=== PATIENT | female | born 1965 | race Caucasian/White ===

== ENCOUNTER 2017-07-27 20:52 | Inpatient (IN) | payer MEDICARE, MEDICAID ==
[2017-07-27] MEDS ORDERED: methylPREDNISolone 125 MG* 2 ML VIAL IV ONE (21:24)
[2017-07-27] MEDS ORDERED: methylPREDNISolone 125 MG* 2 ML VIAL ONE (21:25)
--- NOTE | 2017-07-27 22:43 | ED ---
Shortness of Breath - HPI Summary HPI Summary: 52F presents with shortness of breath for 4 days. She was diagnosed with bronchitis. She states for past week has been having orthopnea. she states she was told that she has bronchitis and was placed on zpack. She has history of CHF, COPD, and stent placement. She states she is normally not SOB at rest. She states she has been taking her medication as normal. She denies any fever. She admits to sinus congestion. She states cough has been consistently dry. She denies any abdominal pain, nausea or vomiting. she admits to increase swelling in legs. She is not on oral steroid for this. - History of Current Complaint Chief Complaint: EDShortnessOfBreath Time Seen by Provider: 07/27/17 22:08 - Allergy/Home Medications Allergies/Adverse Reactions: Allergies Allergy/AdvReac Type Severity Reaction Status Date / Time Levofloxacin [From Levaquin] Allergy Nausea And Verified 07/28/17 00:46 Vomiting Ondansetron [From Zofran] Allergy Hives Verified 07/28/17 00:46 PMH/Surg Hx/FS Hx/Imm Hx Endocrine/Hematology History: Reports: Hx Diabetes Cardiovascular History: Reports: Hx Congestive Heart Failure, Hx Hypertension, Other Cardiovascular Problems/Disorders - stent placement Denies: Hx Pacemaker/ICD Respiratory History: Reports: Hx Chronic Obstructive Pulmonary Disease (COPD) Sensory History: Denies: Hx Hearing Aid Psychiatric History: Denies: Hx Panic Disorder - Surgical History Surgery Procedure, Year, and Place: Complete Hysterectomy 2004; [place]; HEART CATH- 4 CARDIAC STENTS Infectious Disease History: No Infectious Disease History: Denies: Traveled Outside the [place] in Last 30 Days - Family History Known Family History: Positive: Cardiac Disease - Social History Alcohol Use: None Substance Use Type: Reports: Prescribed Smoking Status (MU): Heavy Every Day Tobacco Smoker Review of Systems Negative: Fever Negative: Chest Pain Positive: Shortness Of Breath, Cough Negative: Abdominal Pain All Other Systems Reviewed And Are Negative: Yes Physical Exam Triage Information Reviewed: Yes Vital Signs On Initial Exam: Initial Vitals Temp Pulse Resp BP Pulse Ox 97.9 F 112 26 156/98 92 07/27/17 21:01 07/27/17 21:01 07/27/17 21:01 07/27/17 21:01 07/27/17 21:01 Vital Signs Reviewed: Yes Appearance: Positive: Ill-Appearing Skin: Positive: Warm, Dry Head/Face: Positive: Normal Head/Face Inspection Eyes: Positive: Normal, EOMI, URIEL, Conjunctiva Clear ENT: Positive: Normal ENT inspection, Pharynx normal, TMs normal Respiratory/Lung Sounds: Positive: Breath Sounds Present, Rales - bilateral lungs Cardiovascular: Positive: Normal, RRR Abdomen Description: Positive: Nontender, Soft Bowel Sounds: Positive: Present Musculoskeletal: Positive: Edema Left, Edema Right - Delfino Coma Scale Coma Scale Total: 15 Diagnostics - Vital Signs Vital Signs Temp Pulse Resp BP Pulse Ox 07/27/17 21:05 26 07/27/17 21:01 97.9 F 112 26 156/98 92 - Laboratory Result Diagrams: 07/28/17 04:30 07/28/17 04:30 Lab Statement: Any lab studies that have been ordered have been reviewed, and results considered in the medical decision making process. - Radiology chest Xray Interpretation: Positive (See Comments) - pulmonary edema, possible consolidation Radiology Interpretation Completed By: ED Physician - EKG No standard instances Cardiac Rate: Tachycardia EKG Rhythm: Sinus Tachycardia ST Segment: Non-Specific - some T wave depresions EKG Interpretation: tachycardia some t wave inversion present Re-Evaluation - Re-Evaluation First Eval Re-Evaluation Time: 22:54 Change: Improved Comment: patient feeling better with solu-medol Course/Dx - Course Course Of Treatment: 52F presents with shortness of breath for 4 days. She was diagnosed with bronchitis. She states for past week has been having orthopnea. she states she was told that she has bronchitis and was placed on zpack. She has history of CHF, COPD, and stent placement. She states she is normally not SOB at rest. She states she has been taking her medication as normal. She denies any fever. She admits to sinus congestion. She states cough has been consistently dry. She denies any abdominal pain, nausea or vomiting. she admits to increase swelling in legs. She is not on oral steroid for this. on exam lungs has rales at bases. swelling in legs. dr gutierrez saw and advised to discuss with hospitalists. BMP, CBC, and troponin elevated. EKG some ST changes. gave steriod and breathing improved. chest xray read by dr gutierrez as pulmonary edema so gave lasix and nitro. gave aspirin. dr teresa saw and started heparin drip and talked with cardiology. dr teresa will admit - Diagnoses Differential Diagnosis/HQI/PQRI: Positive: COPD Exacerbation, Pneumonia, Unstable Angina Provider Diagnoses: NSTEMI (non-ST elevated myocardial infarction), COPD exacerbation, CHF exacerbation - Critical Care Time Critical Care Time: 30-74 min - 40 mins Discharge - Discharge Plan Condition: Stable Disposition: ADMITTED TO [facility]
[2017-07-27] MEDS ORDERED: Furosemide IV* 10 MG/ML VIAL (40 MG) IV SLOW PU ONE (22:46)
[2017-07-27] MEDS ORDERED: Nitroglycerin TAB 0.4 MG* 0.4 MG TAB SL ONE (22:47)
[2017-07-27 22:57] LABS: Hematocrit 45 % (35-47); Hemoglobin 14.9 g/dl (12.0-16.0); Mean Corpuscular HGB Conc 34 g/dl (31-36); Mean Corpuscular Hemoglobin 31 pg (27-31); Mean Corpuscular Volume 91 fL (80-97); Mean Platelet Volume 8 um3 (7.4-10.4); Red Cell Distribution Width 15 % (10.5-15); White Blood Count 17.9 10^3/ul (3.5-10.8)
[2017-07-27 23:11] LABS: ALT 44 U/L (7-52); AST 200 U/L (13-39); Albumin 3.7 g/dL (3.2-5.2); Alkaline Phosphatase 165 U/L (34-104); Anion Gap 10 mmol/L (2-11); BUN/Creatinine Ratio 23.7 (8-20); Blood Urea Nitrogen 22 mg/dL (6-24); CO2 Carbon Dioxide 24 mmol/L (22-32); Calcium 9.3 mg/dL (8.6-10.3); Chloride 97 mmol/L (101-111); EGFR African American 81.1 (>60); EGFR Non-African American 63.1 (>60); Globulin 3.9 g/dL (2-4); Glucose 375 mg/dL (70-100); Potassium 4.7 mmol/L (3.5-5.0); Sodium 131 mmol/L (133-145); Total Protein 7.6 g/dL (6.4-8.9)
[2017-07-27] MEDS ORDERED: cefTRIAXone VIAL(*) 1,000 MG in NS 0.9% 50 ML* 50 ML IVPB ONE (23:15)
[2017-07-27 23:31] LABS: Troponin I > 82.00 ng/mL (<0.04)
[2017-07-27] MEDS ORDERED: Aspirin Low Dose CHEW TAB* 81 MG ONE (23:37)
[2017-07-27] MEDS ORDERED: Aspirin Low Dose CHEW TAB* 81 MG PO ONE (23:38)
[2017-07-27] MEDS ORDERED: Heparin VIAL(*) 5000 UNITS/ML VIAL (FIVE THOUSAND) IV SCH (23:45)
[2017-07-27] MEDS ORDERED: Heparin DRIP 25,000 UNITS(*) 25,000 UNITS/500 ML BAG IVPB SCH (23:45)
[2017-07-28] MEDS ORDERED: Heparin DRIP 25,000 UNITS(*) 25,000 UNITS/500 ML BAG ONE (00:03)
[2017-07-28] MEDS ORDERED: Heparin VIAL(*) 5000 UNITS/ML VIAL (FIVE THOUSAND) ONE (00:04)
[2017-07-28] MEDS: Heparin VIAL(*) 5000 UNITS/ML VIAL (FIVE THOUSAND) IV SCH ×2 (00:36→18:41)
[2017-07-28] MEDS: Heparin DRIP 25,000 UNITS(*) 25,000 UNITS/500 ML BAG IVPB SCH ×2 (00:38→20:06)
[2017-07-28] MEDS ORDERED: Dextrose 50% Syringe 50 ML* 25 GM/50 ML SYRINGE IV PUSH PRN ×4 (00:39→14:46)
[2017-07-28] MEDS ORDERED: Insulin REGULAR(*) 1 UNITS UNIT SUBCUT ONE (00:40)
[2017-07-28] MEDS ORDERED: Metoprolol Tartrate IV* 1 MG/ML 5 ML VIAL IV ONE (01:08)
[2017-07-28] MEDS ORDERED: Atorvastatin* 80 MG TAB PO ONE (01:09)
[2017-07-28] MEDS ORDERED: Insulin LISPRO* 1 UNITS UNIT SUBCUT SCH ×4 (02:00→16:30)
[2017-07-28 02:33] LABS: Creatine Kinase 2059 U/L (10-223)
[2017-07-28 02:39] LABS: Blood Urea Nitrogen 23 mg/dL (6-24); Creatine Kinase 1488 U/L (10-223)
[2017-07-28 02:49] LABS: Troponin I > 82.00 ng/mL (<0.04)
[2017-07-28 03:07] LABS: Glucose 423 mg/dL (70-100)
[2017-07-28 04:04] LABS: Alcohol < 10 mg/dL (<10)
--- NOTE | 2017-07-28 04:15 | HP ---
ADMISSION HISTORY AND PHYSICAL: DATE OF ADMISSION: 07/28/17 PRIMARY CARE PROVIDER: Dr. Garcia. HEEL DIPPER: Dr. Grimaldo. HEALTHCARE PROXY: Her . CODE STATUS: Full. SOURCE OF INFORMATION: History obtained from interview with the patient and her , review of past medical records. RELIABILITY: Good. CHIEF COMPLAINT: Shortness of breath. HISTORY OF PRESENT ILLNESS: This is a 52-year-old female with past medical history of CAD, last cardiac catheterization in 2006, been in her usual state of health until approximately 2 weeks prior to presentation, started to develop a cough, seen by her doctor approximately 1 week prior to presentation and was prescribed Augmentin for suspected bronchitis. She started to feel better over the last week; however, did have diarrhea 1 to 2 times per day over the last week after starting Augmentin. Today, she went out for lunch, but "did not feel good." Her chest felt "on fire." She did not eat and she felt nauseous with increasing shortness of breath. The burning started to improve in the afternoon; however, returned in the evening. Chambers like her entire body was burning. She has had subjective fevers at home associated with cold sweats. She has had no change in her lower extremity edema and stable 3-pillow orthopnea without PND. No loss of consciousness. In the emergency room when seen by this author, she had received nitroglycerin; however, she was chest pain free. She additionally received Lasix 40 mg and steroids IV for suspected COPD exacerbation. During the interview, troponin I returned greater than 82. She was reevaluated in the emergency room where she felt her chest pain was completely resolved and her shortness of breath had continued to improve. PAST MEDICAL HISTORY: Peripheral vascular disease followed by Dr. Shaw; possible COPD based on limited study PFTs in March of 2017; history of CHF; CAD with reported 4 stents last in 2008, stents to OM2 as well as mid LAD in 2006; type 2 diabetes; hysterectomy in 2004; cholecystectomy; x2. MEDICATIONS: The patient could not identify all of her medications; however, does list: 1. Plavix 75 mg. 2. Atorvastatin, unknown dose. 3. Isosorbide, unknown dose. 4. Lasix 40 mg daily. 5. Aspirin 81 mg daily. 6. Lantus 40 mg twice daily. 7. NovoLog 15 with meals. 8. Breo Ellipta rescue inhaler that is not albuterol. 9. Losartan 50 mg. 10. Augmentin twice daily since 07/21/17. ALLERGIES: LEVOFLOXACIN and ONDANSETRON. SOCIAL HISTORY: One-half pack per day for 40 years. No alcohol. No illicits. She is on disability. FAMILY HISTORY: Her father and mother with CAD. Father was also with diabetes. REVIEW OF SYSTEMS: As per HPI, otherwise all other systems negative. PHYSICAL EXAMINATION GENERAL: Sitting up in bed, ill appearing. VITAL SIGNS: In the emergency room, blood pressure 138/90, respiratory rate is 24, heart rate 107 to 112. She is 94% on 7 L, T-max 97.9. HEENT: Oropharynx is clear. She has dry mucous membranes. Sclerae are anicteric. She has elevated JVD to the angle of her jaw. LUNGS: Have diffuse rhonchi throughout with an expiratory wheezing. HEART: She has regular rate and rhythm or tachycardic rate with a regular rhythm. ABDOMEN: Soft, nontender, nondistended. EXTREMITIES: Warm, less than 2-second cap refill. She has 1+ lower extremity edema with the right leg wrapped currently secondary to chronic ulcer. NEURO: She is alert and oriented x3. Her cranial nerves II through XII are intact. She has no apparent anxiety, agitation, or depression. DIAGNOSTIC STUDIES/LABORATORY DATA: Reviewed. Notable for glucose 375, lactic acid 2.6, AST 200, ALT 44, alk phos 162. Troponin I is greater than 82. BNP 447. White blood cell count 17.9, hemoglobin 14.9, platelets 293, and neutrophils are 88%. Data reviewed. Chest x-ray, impression: Pulmonary vascular congestion on this author's read. Official read pending in the morning. EKG performed at 22:09, sinus tachycardia, left axis, greater than [address] depressions V4 through V6. Q wave is present in lead III. Repeat EKG on at 12:24 a.m., QTc of 488 decreased from 501, normal sinus rhythm, left axis. ST depressions remain in V4 and V5 with normalization of V6. No additional Q waves present. ASSESSMENT AND PLAN: This is a 52-year-old female with past medical history of peripheral vascular disease, congestive heart failure, and coronary artery disease, diabetes, presented to the hospital with burning chest pain, increased shortness of breath, non-ST elevation myocardial infarction with lateral ST depression as well as troponin-I greater than 82. 1. Non-ST elevation myocardial infarction. Discussed care with Dr. Molina. At this point, proceeding to evaluation by an brace end [facility] former. Dr. Molina to contact interventionalist, although there has been some difficulty with his pager this evening. We will call his cell phone if no response shortly. Repeat EKGs and trend troponins as well as CK and CK-MBs. The patient was given aspirin 324 as well as started on a heparin drip with bolus. No additional therapy unless not interviewed upon after discussion with bracer, Dr. Molina. 2. Elevated white blood cell count suspected in the setting of acute non-ST elevation myocardial infarction. 3. Acute hypoxic respiratory failure. The patient is not using oxygen at home despite longstanding chronic obstructive pulmonary disease. I suspect heart failure in the setting of non-ST elevation myocardial infarction with potentially underlying structural damage. She received Lasix 40 mg in the ED with some improvement. Attempting not to re-dose at this time to prevent acute kidney injury in the setting of potentially needing additional contrast load from percutaneous intervention. If breathing worsens or has increasing oxygen demand, we will dose additional IV Lasix. 4. Type 2 diabetes with hyperglycemia on presentation, 10 units of regular insulin at that time and q.4 hour fingersticks. Holding on Lantus at this time. We will restart based on intervention and when timing of next meal will be. 5. Increased AST suspected in the setting of non-ST elevation myocardial infarction. 6. History of diarrhea, suspect secondary to antibiotics. It has only about 1 to 2 times per day, doubt Clostridium difficile. Holding on testing at this time here. 7. DVT prophylaxis, heparin subcu. [id number]/[facility] #: [id number] [facility]
[2017-07-28 05:05] LABS: Hematocrit 42 % (35-47); Hemoglobin 14.4 g/dl (12.0-16.0); Mean Corpuscular HGB Conc 34 g/dl (31-36); Mean Corpuscular Hemoglobin 31 pg (27-31); Mean Corpuscular Volume 90 fL (80-97); Mean Platelet Volume 8 um3 (7.4-10.4); Red Blood Count 4.66 10^6/ul (4.0-5.4); Red Cell Distribution Width 15 % (10.5-15); White Blood Count 10.7 10^3/ul (3.5-10.8)
[2017-07-28 05:17] LABS: Anion Gap 9 mmol/L (2-11); BUN/Creatinine Ratio 27.1 (8-20); Blood Urea Nitrogen 26 mg/dL (6-24); CO2 Carbon Dioxide 25 mmol/L (22-32); Calcium 8.6 mg/dL (8.6-10.3); Chloride 98 mmol/L (101-111); Cholesterol 109 mg/dL; EGFR African American 78.2 (>60); EGFR Non-African American 60.8 (>60); Glucose 435 mg/dL (70-100); LDL Cholesterol 65 mg/dL; Potassium 4.2 mmol/L (3.5-5.0); Sodium 132 mmol/L (133-145); Triglycerides 36 mg/dL
[2017-07-28] MEDS ORDERED: Insulin GLARGINE(*) 1 UNITS UNIT SUBCUT SCH (06:00)
[2017-07-28] MEDS ORDERED: Insulin GLARGINE(*) 1 UNITS UNIT ONE (06:01)
[2017-07-28] MEDS: Insulin LISPRO* 1 UNITS UNIT SUBCUT SCH ×5 (06:04→21:13)
[2017-07-28 06:10] LABS: Troponin I > 82.00 ng/mL (<0.04)
--- NOTE | 2017-07-28 07:32 | RAD ---
INDICATION: Shortness of breath. COMPARISON: Comparison is made with a prior chest x-ray study from May 18, 2017. TECHNIQUE: Dual-energy PA and lateral views of the chest were obtained. FINDINGS: The heart is within normal limits in size. There is diffuse prominence of the interstitial markings with a more focal infiltrate at the left lung base. There appear to be trace bilateral pleural effusions. IMPRESSION: FINDINGS MOST CONSISTENT WITH CONGESTIVE HEART FAILURE LESS LIKELY PNEUMONIA.
[2017-07-28] MEDS ORDERED: Furosemide TAB* 40 MG PO SCH (09:00)
[2017-07-28] MEDS ORDERED: Metoprolol Tartrate TAB* 25 MG PO SCH (09:00)
[2017-07-28 09:04] LABS: Glucose 311 mg/dL (70-100)
[2017-07-28 09:10] LABS: Troponin I > 82.00 ng/mL (<0.04)
--- NOTE | 2017-07-28 09:49 | PN ---
Cardiology Progress Note Patient seen today 06/28/17, full dictated note to follow. CC: sob 52 yo active smoker with right arm pain and progressive sob yesterday, preceded by dry cough the week before for which Augmentin was started, and additionally preceded by a 2 month history of orthopnea. Trops initially >82. ECG initial with STdepression laterally, no ST elevation and ST normalization with medical management. Pt now arm pain free and breathing better with ED management. Obtaining echo, additional recommendations and dectation to follow.
[2017-07-28] MEDS ORDERED: Perflutren Lipid Microsphere* 3 ML VIAL ONE (12:37)
--- NOTE | 2017-07-28 12:57 | PN ---
Subjective Date of Service: 07/28/17 Interval History: Seen and examined by me this morning. She is feeling much better, is now chest pain free. She has no complaints this morning. She is unable to lie flat though, due to shortness of breath. On exam, she is in no distress, is in a regular rate and rhythm but with crackles at both bases, though I cannot appreciate JVP, and has a chronic, non-infected ulcer on her left lateral foot. Overall, this is a 52 yo lady with history of DM2, PVD presenting with chest pain described as "burning, on fire" pain associated with sob, diaphoresis, relieved by oxygen in the ambulance, and found to have lateral ST depressions and ctni >82 x 3. Continue asa, statin, heparin. Add back beta-blockers (she is on atenolol at home; will use metoprolol now). Will hold off on plavix load pending [facility] timing per cardiology. Ema/Myocarditis should be included in the differential given her current treatment for acute bronchitis. Still, she is at risk for coronary disease given her known PVD and poorly controlled DM and I will continue to treat her as a type I NSTEMI. Objective Active Medications: Dextrose (D50w Syringe 50 Ml*) 12.5 gm IV PUSH .FOR FS < 60 - SS PRN PRN Reason: FS < 60 Furosemide (Lasix Tab*) 40 mg PO DAILY [facility] Last Admin: 07/28/17 09:30 Dose: 40 mg Heparin Sodium (Porcine) (Heparin Vial(*)) 0 units IV .PER PROTOCOL PELON PRN Reason: Protocol Last Admin: 07/28/17 00:36 Dose: 5,000 units Heparin Sodium/Dextrose (Heparin Drip 25,000 Units(*)) 25,000 units in 500 mls @ 0 mls/hr IVPB .PER RATE PELON; Per Protocol PRN Reason: Protocol Last Admin: 07/28/17 00:38 Dose: 22 mls/hr Insulin Glargine (Lantus(*)) 20 units SUBCUT Q12H PELON Last Admin: 07/28/17 06:03 Dose: 20 units Insulin Human Lispro (Humalog*) 0 units SUBCUT FS ACHS ICU PELON PRN Reason: Protocol Metoprolol Tartrate (Lopressor Tab*) 12.5 mg PO Q8H PELON Last Admin: 07/28/17 09:28 Dose: 12.5 mg Vital Signs 07/28/17 07/28/17 07/28/17 00:56 01:39 01:40 Temperature Pulse Rate 95 99 99 Respiratory 18 30 25 Rate Blood Pressure 127/93 128/98 (mmHg) O2 Sat by Pulse 96 89 89 Oximetry 07/28/17 07/28/17 07/28/17 01:45 01:48 02:00 Temperature 98.2 F Pulse Rate 99 95 Respiratory 20 20 22 Rate Blood Pressure 133/95 (mmHg) O2 Sat by Pulse 92 92 Oximetry 07/28/17 07/28/17 07/28/17 02:18 03:00 03:01 Temperature Pulse Rate 94 85 84 Respiratory 17 17 17 Rate Blood Pressure 128/90 107/82 (mmHg) O2 Sat by Pulse 92 93 93 Oximetry 07/28/17 07/28/17 07/28/17 04:00 04:01 05:00 Temperature 97.0 F Pulse Rate 87 86 86 Respiratory 18 18 18 Rate Blood Pressure 117/89 96/61 (mmHg) O2 Sat by Pulse 94 94 97 Oximetry 07/28/17 07/28/17 07/28/17 05:01 06:00 06:01 Temperature Pulse Rate 85 87 86 Respiratory 17 17 19 Rate Blood Pressure (mmHg) O2 Sat by Pulse 96 95 95 Oximetry 07/28/17 07/28/17 07/28/17 06:04 07:00 07:24 Temperature 99.4 F Pulse Rate 87 81 Respiratory 19 16 Rate Blood Pressure 99/67 110/73 (mmHg) O2 Sat by Pulse 96 96 Oximetry 07/28/17 07/28/17 07/28/17 08:00 08:38 09:00 Temperature Pulse Rate 81 82 Respiratory 15 17 21 Rate Blood Pressure 107/71 120/81 (mmHg) O2 Sat by Pulse 96 95 Oximetry 07/28/17 07/28/17 07/28/17 09:01 10:00 10:54 Temperature Pulse Rate 80 Respiratory 18 20 15 Rate Blood Pressure 118/80 (mmHg) O2 Sat by Pulse 96 Oximetry 07/28/17 07/28/17 11:00 12:00 Temperature Pulse Rate 73 75 Respiratory 18 18 Rate Blood Pressure 111/74 90/58 (mmHg) O2 Sat by Pulse 97 97 Oximetry Result Diagrams: 07/28/17 04:30 07/28/17 04:30 Microbiology and Other Data: Microbiology 07/28/17 02:00 Nasal Screen MRSA (PCR)(MANUEL) - Final Nasal Mrsa Negative Assess/Plan/Problems-Billing Assessment:
--- NOTE | 2017-07-28 12:58 | PN ---
Hospitalist Progress Note Seen and examined by me this morning. She is feeling much better, is now chest pain free. She has no complaints this morning. She is unable to lie flat though, due to shortness of breath. On exam, she is in no distress, is in a regular rate and rhythm but with crackles at both bases, though I cannot appreciate JVP, and has a chronic, non-infected ulcer on her left lateral foot. Overall, this is a 52 yo lady with history of DM2, PVD presenting with chest pain described as "burning, on fire" pain associated with sob, diaphoresis, relieved by oxygen in the ambulance, and found to have lateral ST depressions and ctni >82 x 3. Continue asa, statin, heparin. Add back beta-blockers (she is on atenolol at home; will use metoprolol now). Will hold off on plavix load pending [facility] timing per cardiology. Ema/Myocarditis should be included in the differential given her current treatment for acute bronchitis. Still, she is at risk for coronary disease given her known PVD and poorly controlled DM and I will continue to treat her as a type I NSTEMI.
--- NOTE | 2017-07-28 13:21 | ED ---
Yary Overton Nilda, scribed for Renan Acevedo MD on 07/28/17 at 0040 . Progress - Progress Note Progress Note: Patient complains of orthopnea, cough, progressively SOB, and ankle edema for 1 week. Rales detected on physical exam. CXR, history, and physical exam suggest pulmonary edema, suspect possible acute MS, and CHF exacerbation, but No STEMI. 35 minutes of CCT Re-Evaluation - Re-Evaluation First Eval Re-Evaluation Time: 22:54 Change: Improved Comment: patient feeling better with solu-medol Course/Dx - Course Course Of Treatment: dr acevedo saw and advised to discuss with hospitalists. - Diagnoses Provider Diagnoses: NSTEMI (non-ST elevated myocardial infarction), COPD exacerbation, CHF exacerbation The documentation as recorded by the lindaibYary cleary Nilda accurately reflects the service I personally performed and the decisions made by Curtis sims Jerry, MD.
--- NOTE | 2017-07-28 14:35 | ECHO ---
Patient: GABRIEL ZAVALA [facility] Rec#: [id number] : 1965 Date: 07/28/2017 Age: 52y Height: 160.02 cm / 63.0 in Weight: 69.4 kg / 153.0 lbs Sex: F BSA: 1.73 Room#: ICU 8 Admit Date#: 07/28/2017 Type: Inpatient Referring: Heidy Gan MD Reading: Heidy Gan MD Laboratory Equipment Installer: Carol Love RN RDCS CC: Radha LIN,Jamaal Transthoracic Echocardiogram Indication: Acute NSTEMI BP: 118/80 HR: 75 Rhythm: NSR Findings History: CAD, multiple coronary stents, DM, PVD, COPD, smoker Technical Comments: The study quality is fair. The study is technically limited due to the patient's history of COPD. The study is technically limited due to the patient's smoking history. Left Ventricle: The left ventricular chamber size is normal. There are multiple regional wall motion abnormalities. The posterior-inferior wall is severely hypokineitic and akinetic on 3 chamber view and hypokinetic on long axis, short axis and 2 chamber views. The base of the lateral wall is akinetic and hypokinetic on the 4 chamber view. There is moderately decreased left ventricular systolic function. The estimated ejection fraction is 35-40%. The assessment of diastolic function is non-diagnostic.Most consistent with pseudonormal. The patient was unable to perform a Valsalva maneuver. Left Atrium: The left atrium is moderately dilated. Right Ventricle: The right ventricular cavity size is normal. The right ventricular global systolic function is moderately reduced. Right Atrium: The right atrial cavity size is normal. Aortic Valve: The aortic valve is trileaflet. The aortic valve leaflets are mildly thickened. There is a trace of aortic regurgitation. Mitral Valve: There is mitral annular calcification. The mitral valve leaflets are moderately thickened. Mild mitral leaflet calcification is visualized. Mitral valve anterior leaflet calcification is visualized. Calcification is visualized in the P2 segment of the posterior mitral valve leaflet. Mitral valve leaflet mobility is moderately restricted.posterior leaflet appears akinetic, anterior leaflet is restricted. The papillary muscle heads appear calcified. There is moderate to severe mitral regurgitation. 2 jets, one is largely central, one is posterior and lateral. There is mild to moderate mitral stenosis. Pulmonary vein flow reversal is present. Tricuspid Valve: The tricuspid valve leaflets are normal. There is trace to mild tricuspid regurgitation. Unable to estimate the right ventricular systolic pressure. Pulmonic Valve: The pulmonic valve structure is not well visualized. There is mild pulmonic regurgitation. There is no pulmonic stenosis. Pericardium: There is no significant pericardial effusion. Aorta: There is no dilatation of the ascending aorta. There is no dilatation of the aortic arch. There is no dilation of the aortic root. Pulmonary Artery: The main pulmonary artery is not well visualized. Venous: The inferior vena cava appears normal in size. There is no change in the dimension of the inferior vena cava with respiration consistent with markedly increased right atrial pressure. Contrast: Definity was used to optimize study. A total of 5 ml of Definity was administered IV. Conclusions There are multiple regional wall motion abnormalities: akinesis and hypokinesis of the inferior/posterior and lateral ramires at the base. The estimated ejection fraction is 35-40%. The assessment of diastolic function is non-diagnostic, but most consistent with pseudonormal. The right ventricular global systolic function is moderately reduced. The aortic valve leaflets are mildly thickened. There is a trace of aortic regurgitation. There is moderate to severe mitral regurgitation. 2 wide jets, one is largely central, one is posterior and lateral. There is mild to moderate mitral stenosis: mean gradient 4.3 mmHg, MVA 3.4 cm2. There is trace to mild tricuspid regurgitation Unable to estimate PA pressure. No prior echo to compare. Measurements Name Value Normal Range RVIDd (AP) 2D 2.2 cm (0.9 - 2.6) RVIDd (2D) index 1.3 cm/m2 - RAd ISD 4CH 4.4 cm (3.4 - 4.9) RA (A4C)W 3.8 cm (2.9 - 4.6) IVSd (2D) 1 cm (0.6 - 1) LVPWd (2D) 1 cm (0.6 - 1) LVIDd (2D) 4.9 cm (3.6 - 5.4) LVIDs (2D) 4.1 cm - LV FS (2D) 16 % (25 - 45) EF Teichholz (2D) 34 % - Aortic Annulus 1.7 cm (1.4 - 2.6) Ao root diameter (2D) 2.5 cm (2.1 - 3.5) Ascending Ao 2.4 cm (2.1 - 3.4) Aortic arch 2.6 cm (1.8 - 3.4) LA dimension (AP) 2D 4.4 cm (2.3 - 3.8) LAd ISD 4CH 5.6 cm (2.9 - 5.3) LA ISD 4CH W 4.9 cm (2.5 - 4.5) Aortic root diameter (2D1 cm/m2 - Name Value Normal Range LA ESV SP 4CH (A/L) 62 ml - LA ESV SP 2CH (A/L) 88.6 ml - LA ESV BP (A/L) 76.8 ml - LA ESV BP (A/L) index 44.4 ml/m2 - LA ESV SP 4CH (MOD) 56.2 ml - LA ESV SP 2CH (MOD) 84.4 ml - Name Value Normal Range MV E-wave Vmax 1.6 m/sec - MV deceleration time 279 msec - MV A-wave Vmax 0.95 m/sec - MV E:A ratio 1.7 ratio - LV septal e' Vmax 0.05 m/sec - LV lateral e' Vmax 0.04 m/sec - LV E:e' septal ratio 32 ratio - LV E:e' lateral ratio 40 ratio - Name Value Normal Range AV Vmax 1.4 m/sec - AV VTI 24.7 cm - AV peak gradient 8.1 mmHg - AV mean gradient 4.7 mmHg - LVOT diameter 1.8 cm - LVOT Vmax 0.71 m/sec - LVOT VTI 12.7 cm - LVOT peak gradient 2 mmHg - LVOT mean gradient 1 mmHg - DOI (VTI) 0.52 ratio - DOI (Vmax) 0.52 ratio - SV LVOT 31.3 ml - CO LVOT 2.35 l/min - Cardiac index 1.36 l/min/m2 - MURPHY (continuity Vmax) 1.3 cm2 - MURPHY (continuity VTI) 1.3 cm2 - Name Value Normal Range MV Vmax 1.8 m/sec - MV VTI 41.9 cm - MV mean gradient 4.3 mmHg - MV PHT 64.8 msec - MR Vmax 4.6 m/sec - MR VTI 135.6 cm - MR volume (PISA) 45 ml - MR flow (PISA) 153 ml/sec - MR ERO 0.33 cm2 - MR PISA radius 0.8 cm - MR alias Vmax 38 cm/sec - MVA (PHT) 3.4 cm2 - MVA (continuity VTI) 0.75 cm2 - Name Value Normal Range IVC diameter 1.9 cm - Name Value Normal Range PV Vmax 0.61 m/sec - PV peak gradient 1.49 mmHg -
[2017-07-28] MEDS: Insulin GLARGINE(*) 1 UNITS UNIT SUBCUT SCH (15:20)
[2017-07-28] MEDS: Collagenase 250 MG/GM OINT* 30 GM TOPICAL SCH (20:15)
[2017-07-28] MEDS: Carvedilol TAB* 6.25 MG PO SCH (21:16)
--- NOTE | 2017-07-28 21:34 | CONS ---
CC: Dr. Garcia; Hospitalist; Dr. Tomas Grimaldo * CARDIOLOGY CONSULTATION: DATE OF CONSULT: 07/28/17 REASON FOR CONSULT: Elevated troponins and congestive heart failure. CHIEF COMPLAINT: Shortness of breath. HISTORY OF PRESENT ILLNESS: April Chavez is a 52-year-old woman with diffuse vascular disease including coronary and peripheral vascular disease followed by Dr. Grimaldo and Dr. Shaw. The patient presented yesterday because of progressive shortness of breath and she was severely respiratory compromised on arrival to the emergency department. With questioning, it was uncovered that for the last 2 months the patient has had orthopnea, requiring extra pillows to sleep at night. The patient was treated for bronchitis last week with Augmentin, but it turns out she had a dry cough and denied any sputum production at all. With the Augmentin, she developed loose stools and was vague about whether the cough improved or not. Yesterday, the patient denies any change in medications or activity other than the Augmentin mentioned and she developed progressive dyspnea and later it became evident, she also had pain in the right upper arm. The patient eventually presented to the emergency department and EKG showed some mild ST depression. She was treated for congestive heart failure and her first troponin came back highly elevated at greater than 82. The patient states that with management overnight, her breathing is much better and her arm pain has completely resolved and she is able to lie more flat than she did yesterday. PAST MEDICAL HISTORY: 1. Coronary artery disease: Cardiac catheterization 06/04/15 in [place]: Left main clean. LAD diffuse disease including 60% and 70% lesion followed by a 75% lesion, 75% occlusion at D1 and LAD stent without significant stenosis, circumflex diffuse disease, stents within the circumflex, free of significant stenosis. Near the takeoff of posterior descending off the circumflex with 90% to 95% occlusion that was not felt to be amenable to intervention. Right coronary artery was thin with severe diffuse disease in the 90% range. Her ejection fraction was 55% on ventriculogram at cath with hypokinesis at the base of the inferoposterior wall. She was treated with medical management. 2. Peripheral vascular disease: Ankle brachial indexes from 04/14/17 consistent with arterial insufficiency potentially causing claudication bordering on rest pain. Pelvic angiogram from 09/26/16 at [facility] showed common iliacs to be widely patent, mild narrowing in the external iliacs with significant narrowing in the mid portion of the external iliacs on the left, status post angioplasty. 3. Dyslipidemia. 4. Hypertension. 5. Type 2 diabetes. 6. COPD. 7. Active smoker. PAST SURGICAL HISTORY: Includes stents to the circumflex, OM branches, and LAD and stenting to the right external iliac as above. PAST SURGICAL HISTORY: Includes hysterectomy and cataracts. MEDICATIONS: Current inpatient medications include: 1. Aspirin 325 mg a day. 2. Lipitor 80 mg a day. 3. Unfractionated heparin drip. 4. IV methylprednisolone. 5. Lopressor 12.5 mg q.8 hours. 6. Nitroglycerin p.r.n. 7. She has had Lasix on a p.r.n. basis 40 mg. 8. Lispro insulin. 9. Plavix has been resumed at 75 mg a day. ALLERGIES: Include LEVOFLOXACIN and ONDANSETRON. FAMILY HISTORY: Significant in her mother within in the last year after bypass surgery and also had a history of lung cancer. Her father had a history of double bypass and myocardial infarction, in his 70s with the history of bowel infarction and anorexia. She had a daughter with osteosarcoma at age 5. SOCIAL HISTORY: The patient was lived in [place] for many years and has recently moved back to this area. She has been disabled since 2008. Smokes actively and has for many years. No history of alcohol or recreational drug use. Drinks up to 5 cups of coffee a day. REVIEW OF SYSTEMS: See history of present illness, but is significant for 2 months of orthopnea, recent coughing and yesterday's progressive dyspnea and right arm pain. She denies recent fevers, chills, sweats. She admits to recent loose stools related to Augmentin. No productive sputum. No sinus headaches, earaches. No increased salt intake. No nonsteroidal use. No recent travel. She did say that over the last year she has lost over 60 pounds and has not really been trying, but says she has a good appetite. She has intermittent lower extremity swelling that this has not been worse recently. Her heel ulcer is painful, but she feels this is stable and not worse than usual. The patient denies any history of rheumatic fever at any time. PHYSICAL EXAM: She is 5 feet 3 inches, weighs 153 pounds with a BMI of 27. Initial vital signs in the emergency department, blood pressure 156/98 with sinus tachycardia at 112 beats per minute, afebrile, and oxygen saturation 92% with breathing treatment. Currently, the patient's blood pressure is 106/74, the pulse is 74, respiratory rate is 13, oxygen saturation 99% with 1 L nasal cannula, and T- max was 99.4. General Appearance: Older middle-aged woman appearing much older than her stated age of 52 years, appears chronically ill, and reasonably comfortable lying at 30 degrees. Psychologically, pleasant and cooperative, although appears a bit anxious. Neurologically, awake, alert, and oriented to person, place, and time. Cranial nerves II through XII grossly intact, grossly normal. Sensory and motor function based on the exam in the bed , I did not watch her walk. Skin: Somewhat dusky in appearance, but no actual cyanosis. HEENT: Pupils were equal and round. Mucous membranes moderately moist. Neck: Without thyromegaly or lymphadenopathy. Breath sounds clear, although distant. No wheezing, rales, or rhonchi. Coronary: S1, S2 regular, low-pitched, pansystolic murmur heard at the apex and a soft early peaking systolic murmur heard in the right upper sternal border. Abdomen: Soft and nontender. No appreciable hepatomegaly. I did not hear abdominal bruits. Femoral pulses are palpable. The distal extremities not fully examined, but looks warm with only trace edema. Ulceration on foot not examined. DIAGNOSTIC STUDIES/LAB DATA: Chest x-ray from 07/27/17 showed congestive heart failure, possible pneumonia. ECG done on 07/27/17 at 2209 shows sinus tachycardia at 106 beats a minute, QRS axis 0, normal AV and IV conduction times and mild [address] depression in the lateral leads V4 through V6, mildly upsloping. EKG had a significant amount of motion artifact. The EKG from 06:30 this morning shows normal sinus rhythm at 85 beats per minute, QRS axis 0, normal AV and IV conduction times and interval resolution or near resolution of the ST depression in the lateral leads. She has QS complexes in leads III and aVF and prominent R-wave progression suggesting a possible old inferior posterior wall MT. Labs, white count initially 17.9 on the 3rd, currently 10.9, hemoglobin 14.4, hematocrit 42, platelets 250. PTT 70.6. Sodium 132, potassium 4.2, chloride 98 , bicarb 25, BUN 26, creatinine 0.96, glucose 435, hemoglobin A1c of 9. Initial troponin greater than 82. Initial CK-MB was 207, troponin #2 greater than 82, CK- MB #2 162, troponin #3 greater than 82. Lipids, total cholesterol 109, triglycerides 36, LDL cholesterol 65, HDL cholesterol 37. Alcohol level less than 10. Echocardiogram done today showed severe hypo to akinesis at the base of the inferoposterior wall and lateral ramires with an ejection fraction of 35% to 40%. Her right ventricle is moderately hypokinetic. She had aortic valve sclerosis. The mitral valve was calcified. The posterior leaflet was akinetic and the anterior leaflet showed decreased excursion. She had pdibzrvi-mn-epkrst mitral insufficiency and frso-qk-smxabnpv mitral stenosis, mean gradient 4.3 mmHg and mitral valve area 3.4 cm squared. PA pressure unable to be estimated and she had mild tricuspid insufficiency. The patient's most recent chemical stress test was on 03/31/[address] Grimaldo. This showed a fixed defect at the base and mid anterolateral in apical territory consistent with LAD disease with an ejection fraction of 47% post stress and 50% pre stress. IMPRESSION AND PLAN: In summary, April Chavez is a 52-year-old woman with known atherosclerotic heart disease as well as peripheral vascular disease and active smoker, who presented to the emergency department yesterday because of profound progressive dyspnea in addition to right arm pain. She was found to be in congestive heart failure and evidence of a recent significant myocardial infarction based on troponin and CPK-MB value. 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 I feel the issues now include her significant drop in her ejection fraction as well as what appears to be new mitral insufficiency. The mitral murmur was not documented on recent exams by my cardiology colleagues and that my suspicion is that although the mitral stenosis may have been there for some time. The mitral insufficiency likely has a large ischemic component. I had recommended referral to an outside center for cardiac catheterization with the aim of mitral valve replacement and bypass surgery as indicated by cath. The patient is vehemently opposed to any open heart surgery. She is very scared of this. She says due to her mother's recent demise and a history of coronary disease and that she wants to be around for her grandkids. I reassured her that with her choice whether or not to have the surgery and always would be, we will not proceed in any direction without her consent and she is understanding. I also told her that I felt her situation will be very difficult to medically manage and that we may broach more invasive options again if we are not able to stabilize her with medical management. I agree with the diuresis. I would recommend Coreg and ROGE inhibitors or ARBs. I would consider trying Aldactone in addition or in place of loop diuretics. If her blood pressure is not supporting daily doses of both, you could consider alternating Lasix with Aldactone. Smoking cessation was discussed in depth and I feel is a must for her. As the patient denies having had Rheumatic fever, other etiologies of mitral valve damage could be considered such as Whipples, some weight loss substances used in the past and more. Outpatient optimization might include Corlanor if we cannot adequately beta- maria victoria to get her heart rate down. If her ejection fraction drops to 35%, Entresto might be an option in the future. The patient's lipids looks well controlled and her diabetes is poorly controlled and lifestyle changes in addition to smoking cessation are going to be extremely important for her overall vascular health and general health. I did review the case with Interventional Cardiology and decisions will be made in the future regarding need for or if it make sense to do a cath and/or chemical stress test. This patient is a very high-risk patient overall with significant ischemic cardiomyopathy, extensive vascular disease, and mitral valve disease that appears to be a combination of rheumatic or rheumatic like disease plus an ischemic component to her mitral insufficiency. Her long-term prognosis is not good. [id number]/[facility] #: [id number] TUCKER
[2017-07-29] MEDS: Insulin GLARGINE(*) 1 UNITS UNIT SUBCUT SCH ×3 (02:30→21:19)
[2017-07-29 06:19] LABS: Hematocrit 36 % (35-47); Hemoglobin 12.3 g/dl (12.0-16.0); Mean Corpuscular HGB Conc 34 g/dl (31-36); Mean Corpuscular Hemoglobin 31 pg (27-31); Mean Corpuscular Volume 89 fL (80-97); Mean Platelet Volume 8 um3 (7.4-10.4); Red Blood Count 4.02 10^6/ul (4.0-5.4); Red Cell Distribution Width 15 % (10.5-15); White Blood Count 13.6 10^3/ul (3.5-10.8)
[2017-07-29 06:39] LABS: BUN/Creatinine Ratio 33.3 (8-20); Calcium 8.4 mg/dL (8.6-10.3); EGFR Non-African American 84.7 (>60); Magnesium 1.7 mg/dL (1.9-2.7); Potassium 3.5 mmol/L (3.5-5.0)
[2017-07-29] MEDS ORDERED: Potassium Chlor TAB* 20 MEQ TAB.ER PO ONE (08:13)
[2017-07-29] MEDS ORDERED: Magnesium Oxide TAB* 400 MG PO ONE (08:13)
--- NOTE | 2017-07-29 08:37 | PN ---
Subjective Date of Service: 07/29/17 Interval History: appears tachypneic but declines dyspnea, chest or arm discomfort Medications Active Medications: Carvedilol (Coreg Tab*) 6.25 mg PO BID REPLACED BY [facility] Last Admin: 07/28/17 21:16 Dose: 6.25 mg Clopidogrel Bisulfate (Plavix Tab*) 75 mg PO DAILY REPLACED BY [facility] Collagenase (Santyl 250 Mg/Gm Oint*) 1 applic TOPICAL DAILY REPLACED BY [facility] Last Admin: 07/28/17 20:15 Dose: 1 applic Dextrose (D50w Syringe 50 Ml*) 12.5 gm IV PUSH .FOR FS < 60 - SS PRN PRN Reason: FS < 60 Furosemide (Lasix Tab*) 40 mg PO DAILY REPLACED BY [facility] Last Admin: 07/28/17 09:30 Dose: 40 mg Heparin Sodium (Porcine) (Heparin Vial(*)) 0 units IV .PER PROTOCOL PELON PRN Reason: Protocol Last Admin: 07/28/17 18:41 Dose: 2,800 units Heparin Sodium/Dextrose (Heparin Drip 25,000 Units(*)) 25,000 units in 500 mls @ 0 mls/hr IVPB .PER RATE PELON; Per Protocol PRN Reason: Protocol Last Admin: 07/28/17 20:06 Dose: 25 mls/hr Insulin Glargine (Lantus(*)) 40 units SUBCUT BID REPLACED BY [facility] Insulin Human Lispro (Humalog*) 0 units SUBCUT FS ACHS ICU REPLACED BY [facility] PRN Reason: Protocol Last Admin: 07/28/17 21:13 Dose: 1 unit Lisinopril (Prinivil Tab*) 5 mg PO DAILY REPLACED BY [facility] Spironolactone (Aldactone Tab*) 25 mg PO DAILY REPLACED BY [facility] Objective Vital Signs: Temp Pulse Resp BP Pulse Ox 100.9 F 85 20 104/68 97 07/29/17 08:00 07/29/17 08:00 07/29/17 08:00 07/29/17 08:00 07/29/17 08:00 Appearance: chronically ill appearing, not distressed Ears/Nose/Mouth/Throat: Clear Oropharnyx, Mucous Membranes Moist Neck: - - +jvd Respiratory: Clear to Auscultation, - - mildly increaesed work of breathing and tachypnea Cardiovascular: - - trace to 1+ edema b/l, RRR, 3/6 systolic murmur apex Abdominal: NL Sounds; No Tenderness; No Distention Skin: No Nodules or Sclerosis Neurological: Alert and Oriented x 3 Laboratory Results: 07/29/17 06:00 07/29/17 06:00 APTT 85.4 seconds (26.0-36.3) H 07/29/17 00:05 Total Bilirubin 0.80 mg/dL (0.2-1.0) 07/27/17 22:44 AST 200 U/L (13-39) H 07/27/17 22:44 ALT 44 U/L (7-52) 07/27/17 22:44 Alkaline Phosphatase 165 U/L (34-104) H 07/27/17 22:44 CK-MB (CK-2) 161.0 ng/mL (0.6-6.3) H 07/28/17 08:31 B-Natriuretic Peptide 447 pg/mL (-100) H 07/27/17 22:44 Total Protein 7.6 g/dL (6.4-8.9) 07/27/17 22:44 Albumin 3.7 g/dL (3.2-5.2) 07/27/17 22:44 Globulin 3.9 g/dL (2-4) 07/27/17 22:44 Albumin/Globulin Ratio 0.9 (1-3) L 07/27/17 22:44 Triglycerides 36 mg/dL 07/28/17 04:30 Cholesterol 109 mg/dL 07/28/17 04:30 LDL Cholesterol 65 mg/dL 07/28/17 04:30 HDL Cholesterol 37.0 mg/dL 07/28/17 04:30 07/28/17 07/28/17 07/28/17 01:30 04:30 08:31 Troponin I > 82.00 H* > 82.00 H* > 82.00 H* 07/28/17 10:59 Troponin I > 82.00 H* Diagnostic Imagin05/2015 angiogram: Diffuse LAD disease, 60-75% lesion prior to mid LAD stent, 70% distal LAD (+FFR distally) Diffuse D1 disease with 75% lesion too small for PCI Patent OM stent Severe distal Lcx/LPDH (co-dominant) small vessel disease not a PCI target RCA thin severely disease co-dominant up to 80-90% mid lesio LV gram 55% with mild posterobasal hypokinesis (no mention of MR) R common iliac severe PAD Medical management Assessment/Plan April Chavez is a 52 year old woman with diabetes on insulin not at goal and ongoing tobacco use admitted with symptomatic severe ischemic MR with heart failure, LVEF 35-40% secondary to a large inferior/inferolateral wall UT late presentation 07/27/2017. She absolutely declines any surgical intervention. - restart home aspirin 81 mg PO daily (Ordered) - Continue home plavix 75 mg PO daily - Increase home lasix from 40 mg PO QD to 80 mg PO daily (ordered) - continue heparin gtt x 48 hours - Restart home atorvastatin 80 mg (Ordered) - Continue new aldactone 25 mg PO daily - Agree with replacing and checking mg and K - Home diltiazem 120 mg PO daily held - Home atenolol 100 mg PO daily changed to coreg 6.25 mg PO BID - Home imdur and nitro patch held - Lisinopril 5 mg PO daily started and continuing - Cardiomyopathy and MR may make uptitration of cardiac medications difficult - Prognosis guarded without surgery. I asked her again to reconsider. She would need a diagnostic angiogram and transfer to a center with open heart surgery. - Will follow Thank you for allowing me to participate in the cardiovascular care of this patient. Please do not hesitate to contact me with questions or concerns
[2017-07-29] MEDS ORDERED: Clopidogrel TAB* 75 MG PO SCH (09:00)
[2017-07-29] MEDS: Insulin LISPRO* 1 UNITS UNIT SUBCUT SCH ×4 (09:56→21:19)
[2017-07-29] MEDS: Spironolactone TAB* 25 MG PO SCH (10:00)
[2017-07-29] MEDS: Furosemide TAB* 40 MG PO SCH (10:00)
[2017-07-29] MEDS: Lisinopril TAB* 5 MG PO SCH (10:11)
[2017-07-29] MEDS: Carvedilol TAB* 6.25 MG PO SCH (10:11)
[2017-07-29] MEDS: Aspirin EC Low Dose* 81 MG TAB.EC PO SCH (10:15)
[2017-07-29] MEDS: Collagenase 250 MG/GM OINT* 30 GM TOPICAL SCH (12:58)
--- NOTE | 2017-07-29 14:19 | PN ---
Subjective Date of Service: 07/29/17 Interval History: No overnight events, feels well this morning. Denies chest pain, shortness of breath, orthopnea, palpitations, dizziness, syncope, fevers, cough. Family History: Unchanged from Admission Social History: Unchanged from Admission Past Medical History: Unchanged from Admission Objective Active Medications: Aspirin (Aspirin Ec Low Dose*) 81 mg PO DAILY [facility] Last Admin: 07/29/17 10:15 Dose: 81 mg Atorvastatin Calcium (Lipitor*) 80 mg PO 1700 [facility] Carvedilol (Coreg Tab*) 6.25 mg PO BID [facility] Last Admin: 07/29/17 10:11 Dose: Not Given Collagenase (Santyl 250 Mg/Gm Oint*) 1 applic TOPICAL DAILY [facility] Last Admin: 07/29/17 12:58 Dose: 1 applic Dextrose (D50w Syringe 50 Ml*) 12.5 gm IV PUSH .FOR FS < 60 - SS PRN PRN Reason: FS < 60 Furosemide (Lasix Tab*) 80 mg PO DAILY [facility] Last Admin: 07/29/17 10:00 Dose: Not Given Heparin Sodium (Porcine) (Heparin Vial(*)) 0 units IV .PER PROTOCOL [facility] PRN Reason: Protocol Last Admin: 07/28/17 18:41 Dose: 2,800 units Heparin Sodium/Dextrose (Heparin Drip 25,000 Units(*)) 25,000 units in 500 mls @ 0 mls/hr IVPB .PER RATE [facility]; Per Protocol PRN Reason: Protocol Last Admin: 07/28/17 20:06 Dose: 25 mls/hr Insulin Glargine (Lantus(*)) 40 units SUBCUT BID [facility] Last Admin: 07/29/17 10:15 Dose: Not Given Insulin Human Lispro (Humalog*) 0 units SUBCUT FS ACHS ICU [facility] PRN Reason: Protocol Last Admin: 07/29/17 12:59 Dose: Not Given Lisinopril (Prinivil Tab*) 5 mg PO DAILY [facility] Last Admin: 07/29/17 10:11 Dose: Not Given Spironolactone (Aldactone Tab*) 25 mg PO DAILY [facility] Last Admin: 07/29/17 10:00 Dose: Not Given Vital Signs 07/28/17 07/28/17 07/28/17 15:00 15:22 16:00 Temperature Pulse Rate 72 84 Respiratory 15 18 17 Rate Blood Pressure 96/74 100/74 (mmHg) O2 Sat by Pulse 98 99 Oximetry 07/28/17 07/28/17 07/28/17 17:00 17:25 18:00 Temperature Pulse Rate 80 77 Respiratory 16 18 22 Rate Blood Pressure 101/71 104/73 (mmHg) O2 Sat by Pulse 98 98 Oximetry 07/28/17 07/28/17 07/28/17 18:05 19:00 20:00 Temperature 97.5 F Pulse Rate 78 75 Respiratory 23 24 15 Rate Blood Pressure 97/72 (mmHg) O2 Sat by Pulse 98 99 Oximetry 07/28/17 07/28/17 07/28/17 20:01 20:42 21:00 Temperature Pulse Rate 74 79 76 Respiratory 18 19 16 Rate Blood Pressure 99/69 97/71 (mmHg) O2 Sat by Pulse 98 97 98 Oximetry 07/28/17 07/28/17 07/28/17 22:00 23:00 23:21 Temperature Pulse Rate 73 80 79 Respiratory 20 18 20 Rate Blood Pressure 92/66 75/55 (mmHg) O2 Sat by Pulse 96 95 97 Oximetry 07/28/17 07/29/17 07/29/17 23:56 00:00 00:01 Temperature 96.8 F Pulse Rate 76 78 Respiratory 22 22 Rate Blood Pressure 100/76 (mmHg) O2 Sat by Pulse 95 95 Oximetry 07/29/17 07/29/17 07/29/17 01:00 02:00 03:00 Temperature Pulse Rate 84 92 91 Respiratory 24 28 26 Rate Blood Pressure 115/85 131/90 124/86 (mmHg) O2 Sat by Pulse 94 92 94 Oximetry 07/29/17 07/29/17 07/29/17 04:00 05:00 06:00 Temperature Pulse Rate 92 87 95 Respiratory 17 19 22 Rate Blood Pressure 119/85 113/79 (mmHg) O2 Sat by Pulse 96 95 97 Oximetry 07/29/17 07/29/17 07/29/17 07:00 08:00 09:00 Temperature 100.9 F Pulse Rate 84 85 81 Respiratory 17 20 20 Rate Blood Pressure 105/70 104/68 77/54 (mmHg) O2 Sat by Pulse 97 97 97 Oximetry 07/29/17 07/29/17 07/29/17 09:01 09:03 10:00 Temperature Pulse Rate 82 81 74 Respiratory 20 16 21 Rate Blood Pressure 91/56 103/66 79/56 (mmHg) O2 Sat by Pulse 97 96 99 Oximetry 07/29/17 07/29/17 07/29/17 10:01 10:02 11:00 Temperature Pulse Rate 77 76 66 Respiratory 23 21 19 Rate Blood Pressure 89/64 85/53 84/55 (mmHg) O2 Sat by Pulse 98 98 99 Oximetry 07/29/17 07/29/17 12:00 13:00 Temperature Pulse Rate 71 68 Respiratory 21 17 Rate Blood Pressure 91/65 86/56 (mmHg) O2 Sat by Pulse 99 99 Oximetry Oxygen Devices in Use Now: Nasal Cannula Appearance: comfortable, well appearing, mildly tachypneic Eyes: No Scleral Icterus, PERRLA Ears/Nose/Mouth/Throat: NL Teeth, Lips, Gums, Clear Oropharnyx Neck: NL Appearance and Movements; NL JVP, Trachea Midline Respiratory: Symmetrical Chest Expansion and Respiratory Effort, Clear to Auscultation Cardiovascular: - - systolic murmur in left lateral decubitus position at apex Abdominal: NL Sounds; No Tenderness; No Distention, No Hepatosplenomegaly Lymphatic: No Cervical Adenopathy, No Axillary Adenopathy Extremities: No Edema, - - chronic appearing wound left lateral foot Neurological: Alert and Oriented x 3 Result Diagrams: 07/29/17 06:00 07/29/17 06:00 Microbiology and Other Data: Microbiology 07/28/17 02:00 Nasal Screen MRSA (PCR)([facility]) - Final Nasal Mrsa Negative Assess/Plan/Problems-Billing Assessment: 1. NSTEMI with suspected multi-vessel disease and acute on chronic mitral regurgitation Seen by cardiology yesterday and today--they are recommending transfer for mitral valve repair and cabg (based on her prior lhc and wall motion abnormalities on TTE yesterday), however Ms. Chavez has declined so far. I had a long conversation with her about this and expressed my concern about how limited she may be from a cardiac standpoint if she does not pursue surgical intervention. She revealed that she has been quite limited cardiovascularly for years, and that she has not been able to climb a flight of stairs for at least 2-3 years due to shortness of breath. Still, she lost her mother last year after a cabg. Her mother was 72, and again I emphasized the benefit of her age. I will continue to address this with her and her family. I offered to call her and daughter to discuss, but she declined. I will continue to optimize her medically, however so far her blood pressure did not tolerate this regimen. Ideally she'll have a bb, josue, spironolactone, lasix, statin, asa , and plavix. I'm holding the plavix today in case she changes her mind after our conversation. Heparin drip still running; will plan to dc tonight after 48 hours. 2. Acute on chronic systolic heart failure Underlying etiology likely ischemic versus valvular She has diuresed well; now appears more euvolemic continue medical optimization as above 3. Acute hypoxic respiratory failure likely related to #1 and #2; wean O2 as able today 4. PVD continue asa, statin, and will need addition of plavix when surgical plan is decided 5. Hypomagnesemia and hypokalemia replete >2.0 and 4.0 given ischemia 6. dvt ppx--therapeutic ac
[2017-07-29] MEDS: Carvedilol TAB* 3.125 MG PO SCH (18:25)
[2017-07-29] MEDS: Atorvastatin* 80 MG TAB PO SCH (18:25)
[2017-07-29] MEDS: Heparin DRIP 25,000 UNITS(*) 25,000 UNITS/500 ML BAG IVPB SCH (19:11)
[2017-07-30 06:53] LABS: Hematocrit 35 % (35-47); Hemoglobin 12.3 g/dl (12.0-16.0); Mean Corpuscular HGB Conc 35 g/dl (31-36); Mean Corpuscular Hemoglobin 31 pg (27-31); Mean Corpuscular Volume 90 fL (80-97); Mean Platelet Volume 9 um3 (7.4-10.4); Red Blood Count 3.96 10^6/ul (4.0-5.4); Red Cell Distribution Width 15 % (10.5-15); White Blood Count 9.1 10^3/ul (3.5-10.8)
[2017-07-30 07:07] LABS: Albumin 2.9 g/dL (3.2-5.2); BUN/Creatinine Ratio 28.2 (8-20); Calcium 8.6 mg/dL (8.6-10.3); EGFR African American 110.7 (>60); EGFR Non-African American 86.1 (>60); Globulin 3.1 g/dL (2-4); Potassium 3.7 mmol/L (3.5-5.0); Total Bilirubin 0.8 mg/dL (0.2-1.0)
[2017-07-30] MEDS: Heparin VIAL(*) 5000 UNITS/ML VIAL (FIVE THOUSAND) IV SCH (08:04)
[2017-07-30] MEDS: Insulin LISPRO* 1 UNITS UNIT SUBCUT SCH ×4 (08:05→20:57)
[2017-07-30] MEDS: Aspirin EC Low Dose* 81 MG TAB.EC PO SCH (09:15)
[2017-07-30] MEDS: Furosemide TAB* 40 MG PO SCH (09:15)
[2017-07-30] MEDS: Spironolactone TAB* 25 MG PO SCH (09:16)
[2017-07-30] MEDS: Insulin GLARGINE(*) 1 UNITS UNIT SUBCUT SCH ×2 (09:16→20:58)
[2017-07-30] MEDS: Lisinopril TAB* 5 MG PO SCH ×2 (09:17→10:38)
[2017-07-30] MEDS: Carvedilol TAB* 3.125 MG PO SCH ×2 (10:38→17:12)
[2017-07-30] MEDS: Collagenase 250 MG/GM OINT* 30 GM TOPICAL SCH (10:39)
--- NOTE | 2017-07-30 10:39 | PN ---
Subjective Date of Service: 07/30/17 Interval History: Sitting up in bed with her and nephew at the bedside. She feels good this morning but is still fearful about the decision about surgery. She denies chest pain, shortness of breath, palpitations, orthopnea, cough, lightheadeness or dizziness. Family History: Unchanged from Admission Social History: Unchanged from Admission Past Medical History: Unchanged from Admission Objective Active Medications: Aspirin (Aspirin Ec Low Dose*) 81 mg PO DAILY [facility] Last Admin: 07/30/17 09:15 Dose: 81 mg Atorvastatin Calcium (Lipitor*) 80 mg PO 1700 [facility] Last Admin: 07/29/17 18:25 Dose: 80 mg Carvedilol (Coreg Tab*) 3.125 mg PO BID WITH MEALS [facility] Last Admin: 07/29/17 18:25 Dose: 3.125 mg Collagenase (Santyl 250 Mg/Gm Oint*) 1 applic TOPICAL DAILY [facility] Last Admin: 07/29/17 12:58 Dose: 1 applic Dextrose (D50w Syringe 50 Ml*) 12.5 gm IV PUSH .FOR FS < 60 - SS PRN PRN Reason: FS < 60 Furosemide (Lasix Tab*) 80 mg PO DAILY [facility] Last Admin: 07/30/17 09:15 Dose: 80 mg Heparin Sodium (Porcine) (Heparin Vial(*)) 0 units IV .PER PROTOCOL [facility] PRN Reason: Protocol Last Admin: 07/30/17 08:04 Dose: 2,800 units Heparin Sodium/Dextrose (Heparin Drip 25,000 Units(*)) 25,000 units in 500 mls @ 0 mls/hr IVPB .PER RATE [facility]; Per Protocol PRN Reason: Protocol Last Admin: 07/29/17 19:11 Dose: 22 mls/hr Insulin Glargine (Lantus(*)) 40 units SUBCUT BID [facility] Last Admin: 07/30/17 09:16 Dose: Not Given Insulin Human Lispro (Humalog*) 0 units SUBCUT FS ACHS ICU [facility] PRN Reason: Protocol Last Admin: 07/30/17 08:05 Dose: Not Given Lisinopril (Prinivil Tab*) 2.5 mg PO DAILY [facility] Spironolactone (Aldactone Tab*) 25 mg PO DAILY [facility] Last Admin: 07/30/17 09:16 Dose: 25 mg Vital Signs 1007/29/17 07/29/17 11:00 12:00 13:00 Temperature Pulse Rate 66 71 68 Respiratory 19 21 17 Rate Blood Pressure 84/55 91/65 86/56 (mmHg) O2 Sat by Pulse 99 99 99 Oximetry 07/29/17 07/29/17 07/29/17 14:00 15:00 16:00 Temperature 98.1 F Pulse Rate 70 73 67 Respiratory 20 17 20 Rate Blood Pressure 93/63 92/58 86/57 (mmHg) O2 Sat by Pulse 98 99 98 Oximetry 07/29/17 07/29/17 07/29/17 17:00 18:00 19:00 Temperature Pulse Rate 79 70 83 Respiratory 14 16 24 Rate Blood Pressure 117/78 100/72 (mmHg) O2 Sat by Pulse 99 96 96 Oximetry 07/29/17 07/29/17 07/29/17 19:01 19:05 19:42 Temperature 97.8 F Pulse Rate 89 Respiratory 24 16 Rate Blood Pressure 102/65 (mmHg) O2 Sat by Pulse 97 Oximetry 07/29/17 07/29/17 07/29/17 19:55 20:00 20:02 Temperature Pulse Rate 67 72 Respiratory 17 17 15 Rate Blood Pressure 90/62 (mmHg) O2 Sat by Pulse 95 95 Oximetry 07/29/17 07/29/17 07/29/17 21:00 21:01 21:09 Temperature Pulse Rate 66 67 Respiratory 16 16 12 Rate Blood Pressure (mmHg) O2 Sat by Pulse 99 Oximetry 07/29/17 07/29/17 07/29/17 21:11 21:58 22:00 Temperature Pulse Rate 73 71 Respiratory 14 18 16 Rate Blood Pressure 97/67 99/71 (mmHg) O2 Sat by Pulse 97 96 Oximetry 07/29/17 07/29/17 07/29/17 22:54 23:00 23:01 Temperature Pulse Rate 65 65 Respiratory 19 17 19 Rate Blood Pressure (mmHg) O2 Sat by Pulse 95 Oximetry 07/29/17 07/29/17 07/29/17 23:02 23:03 23:07 Temperature Pulse Rate 74 69 67 Respiratory 17 18 16 Rate Blood Pressure (mmHg) O2 Sat by Pulse 98 97 94 Oximetry 07/29/17 07/29/17 07/30/17 23:08 23:23 00:00 Temperature 98.2 F Pulse Rate 68 65 Respiratory 16 18 Rate Blood Pressure (mmHg) O2 Sat by Pulse 92 95 Oximetry 07/30/17 07/30/17 07/30/17 00:01 00:03 00:20 Temperature Pulse Rate 75 72 Respiratory 13 19 18 Rate Blood Pressure 102/72 (mmHg) O2 Sat by Pulse 97 100 Oximetry 07/30/17 07/30/17 07/30/17 01:00 02:00 02:10 Temperature Pulse Rate 71 77 Respiratory 13 16 19 Rate Blood Pressure 97/67 84/52 (mmHg) O2 Sat by Pulse 97 99 Oximetry 07/30/17 07/30/17 07/30/17 03:00 03:07 03:55 Temperature Pulse Rate 73 Respiratory 18 17 16 Rate Blood Pressure 105/71 (mmHg) O2 Sat by Pulse 93 Oximetry 07/30/17 07/30/17 07/30/17 04:00 05:00 05:12 Temperature 97.6 F Pulse Rate 74 74 Respiratory 17 16 14 Rate Blood Pressure 97/70 97/67 (mmHg) O2 Sat by Pulse 97 94 Oximetry 07/30/17 07/30/17 07/30/17 05:54 06:00 06:04 Temperature Pulse Rate 74 80 Respiratory 20 20 20 Rate Blood Pressure (mmHg) O2 Sat by Pulse 96 95 Oximetry 07/30/17 07/30/17 07/30/17 06:06 07:00 08:00 Temperature 97.7 F Pulse Rate 81 81 79 Respiratory 21 15 19 Rate Blood Pressure 96/61 88/59 99/75 (mmHg) O2 Sat by Pulse 95 97 99 Oximetry 07/30/17 09:00 Temperature Pulse Rate 87 Respiratory 25 Rate Blood Pressure 119/86 (mmHg) O2 Sat by Pulse 92 Oximetry Oxygen Devices in Use Now: Nasal Cannula Appearance: alert, tearful, no distress Eyes: No Scleral Icterus, PERRLA Ears/Nose/Mouth/Throat: NL Teeth, Lips, Gums, Clear Oropharnyx Neck: No Thyroid Enlargement, Masses, - - JVP ~12cm Respiratory: Symmetrical Chest Expansion and Respiratory Effort, Clear to Auscultation Cardiovascular: - - holosystolic murmur loudest at apex with radiation throughout Abdominal: NL Sounds; No Tenderness; No Distention, No Hepatosplenomegaly Lymphatic: No Cervical Adenopathy Extremities: No Edema Skin: - - healing left lateral foot ulcer Neurological: Alert and Oriented x 3 Result Diagrams: 10/06/17 06:22 07/30/17 06:22 Microbiology and Other Data: Microbiology 07/28/17 02:00 Nasal Screen MRSA (PCR)([facility]) - Final Nasal Mrsa Negative Assess/Plan/Problems-Billing Assessment: 1. NSTEMI with suspected multi-vessel disease and acute on chronic mitral regurgitation Needs mitral valve repair and cabg (based on her prior lhc and wall motion abnormalities on TTE yesterday), however Ms. Chavez has declined so far. Again, I discussed the risks of non-operative management with her and her family , which I believe are ultimately a very poor prognosis, and encouraged her to re -consider operative evaluation. I will continue to optimize her medically, however so far her blood pressure did not tolerate this regimen. Ideally she' ll have a bb, josue, spironolactone, lasix, statin, asa, and plavix. I'm holding the plavix in hopes that she changes her mind after our conversation. S/p 48 hours on heparin drip. 2. Acute on chronic systolic heart failure Underlying etiology likely ischemic versus valvular She has diuresed well; now appears more euvolemic continue medical optimization as above 3. Acute hypoxic respiratory failure likely related to #1 and #2; wean O2 as able today 4. PVD continue asa, statin, and will need addition of plavix when surgical plan is decided 6. dvt ppx--lovenox
--- NOTE | 2017-07-30 11:10 | PN ---
Subjective Date of Service: 07/30/17 Interval History: again appears tachypneic but declines dyspnea, requiring intermittent 02, chest or arm discomfort cardiomyopathy meds decreased dose due to low bp I had a long discussion with patient, and relative at bedside need for surgery I reviewed [address] Shaw. My suspicion is occluded pLcx. RCA was very diffusely disease at the time, LAD was FFR+ distally Medications Active Medications: Aspirin (Aspirin Ec Low Dose*) 81 mg PO DAILY [facility] Last Admin: 07/30/17 09:15 Dose: 81 mg Atorvastatin Calcium (Lipitor*) 80 mg PO 1700 [facility] Last Admin: 07/29/17 18:25 Dose: 80 mg Carvedilol (Coreg Tab*) 3.125 mg PO BID WITH MEALS [facility] Last Admin: 07/30/17 10:38 Dose: 3.125 mg Collagenase (Santyl 250 Mg/Gm Oint*) 1 applic TOPICAL DAILY [facility] Last Admin: 07/30/17 10:39 Dose: 1 applic Dextrose (D50w Syringe 50 Ml*) 12.5 gm IV PUSH .FOR FS < 60 - SS PRN PRN Reason: FS < 60 Enoxaparin Sodium (Lovenox(*)) 40 mg SUBCUT Q24H [facility] Furosemide (Lasix Tab*) 80 mg PO DAILY [facility] Last Admin: 07/30/17 09:15 Dose: 80 mg Insulin Glargine (Lantus(*)) 40 units SUBCUT BID [facility] Last Admin: 07/30/17 09:16 Dose: Not Given Insulin Human Lispro (Humalog*) 0 units SUBCUT FS ACHS ICU [facility] PRN Reason: Protocol Last Admin: 07/30/17 08:05 Dose: Not Given Lisinopril (Prinivil Tab*) 2.5 mg PO DAILY [facility] Last Admin: 07/30/17 10:38 Dose: 2.5 mg Spironolactone (Aldactone Tab*) 25 mg PO DAILY [facility] Last Admin: 07/30/17 09:16 Dose: 25 mg Objective Vital Signs: Temp Pulse Resp BP Pulse Ox 97.7 F 87 20 119/86 92 07/30/17 08:00 07/30/17 09:00 07/30/17 09:00 07/30/17 09:00 07/30/17 09:00 Oxygen Devices in Use Now: Nasal Cannula Appearance: chronically ill appearing, not distressed Ears/Nose/Mouth/Throat: Clear Oropharnyx, Mucous Membranes Moist Neck: - - +jvd Respiratory: Clear to Auscultation, - - mildly increaesed work of breathing and tachypnea with b/l rales Cardiovascular: - - trace to 1+ edema b/l, RRR, 3/6 systolic murmur apex Abdominal: NL Sounds; No Tenderness; No Distention Skin: No Nodules or Sclerosis Neurological: Alert and Oriented x 3 Laboratory Results: 07/30/17 06:22 07/30/17 06:22 APTT 47.8 seconds (26.0-36.3) H 07/30/17 06:22 Total Bilirubin 0.80 mg/dL (0.2-1.0) 07/30/17 06:22 AST 31 U/L (13-39) 07/30/17 06:22 ALT 22 U/L (7-52) 07/30/17 06:22 Alkaline Phosphatase 98 U/L (34-104) 07/30/17 06:22 CK-MB (CK-2) 161.0 ng/mL (0.6-6.3) H 07/28/17 08:31 B-Natriuretic Peptide 447 pg/mL (-100) H 07/27/17 22:44 Total Protein 6.0 g/dL (6.4-8.9) L 07/30/17 06:22 Albumin 2.9 g/dL (3.2-5.2) L 07/30/17 06:22 Globulin 3.1 g/dL (2-4) 07/30/17 06:22 Albumin/Globulin Ratio 0.9 (1-3) L 07/30/17 06:22 Triglycerides 36 mg/dL 07/28/17 04:30 Cholesterol 109 mg/dL 07/28/17 04:30 LDL Cholesterol 65 mg/dL 07/28/17 04:30 HDL Cholesterol 37.0 mg/dL 07/28/17 04:30 07/28/17 07/28/17 07/28/17 01:30 04:30 08:31 Troponin I > 82.00 H* > 82.00 H* > 82.00 H* 07/28/17 10:59 Troponin I > 82.00 H* Diagnostic Imagin05/2015 angiogram: Diffuse LAD disease, 60-75% lesion prior to mid LAD stent, 70% distal LAD (+FFR distally) Diffuse D1 disease with 75% lesion too small for PCI Patent OM stent Severe distal Lcx/LPDH (co-dominant) small vessel disease not a PCI target RCA thin severely disease co-dominant up to 80-90% mid lesio LV gram 55% with mild posterobasal hypokinesis (no mention of MR) R common iliac severe PAD Medical management Assessment/Plan April Chavez is a 52 year old woman with diabetes on insulin not at goal and ongoing tobacco use admitted with symptomatic severe ischemic MR with heart failure, LVEF 35-40% secondary to a large inferior/inferolateral wall [place] late presentation 07/27/2017. She absolutely declines any surgical intervention. - continue aspirin 81 mg PO daily - Continue home plavix 75 mg PO daily - continue lasix 80 mg PO daily, needs more diuresis as tolerated - continue atorvastatin 80 mg - Continue aldactone 25 mg PO daily - conitnue coreg 3.125 mg PO BID - continue lisinopril 2.5 mg po daily - Cardiomyopathy and MR may make uptitration of cardiac medications difficult - Prognosis guarded without surgery. I asked her again to reconsider. She would need transfer to a center with open heart surgery and a diagnostic angiogram. - Will follow Thank you for allowing me to participate in the cardiovascular care of this patient. Please do not hesitate to contact me with questions or concerns
[2017-07-30] MEDS: Enoxaparin(*) 40 MG/0.4 ML SYR SUBCUT SCH (11:49)
[2017-07-30] MEDS: Atorvastatin* 80 MG TAB PO SCH (17:13)
--- NOTE | 2017-07-30 17:46 | PN ---
Cardiology Progress Note Attn coders do not bill for this encounter Patient is now willing to be evaluated for open heart surgery Discussed with cardiac surgeon, Dr. Soto at [facility], they will arrange transfer to heart failure service within next few days Patient informed
[2017-07-31 05:52] LABS: Hematocrit 33 % (35-47); Hemoglobin 11.5 g/dl (12.0-16.0); Mean Corpuscular HGB Conc 35 g/dl (31-36); Mean Corpuscular Hemoglobin 31 pg (27-31); Mean Corpuscular Volume 89 fL (80-97); Mean Platelet Volume 8 um3 (7.4-10.4); Red Blood Count 3.68 10^6/ul (4.0-5.4); Red Cell Distribution Width 15 % (10.5-15); White Blood Count 7.9 10^3/ul (3.5-10.8)
[2017-07-31 06:03] LABS: BUN/Creatinine Ratio 27.1 (8-20); Calcium 8.4 mg/dL (8.6-10.3); EGFR African American 112.6 (>60); EGFR Non-African American 87.5 (>60); Magnesium 1.9 mg/dL (1.9-2.7); Potassium 3.3 mmol/L (3.5-5.0)
[2017-07-31] MEDS: Spironolactone TAB* 25 MG PO SCH (08:05)
[2017-07-31] MEDS: Furosemide TAB* 40 MG PO SCH (08:05)
[2017-07-31] MEDS: Aspirin EC Low Dose* 81 MG TAB.EC PO SCH (08:05)
[2017-07-31] MEDS ORDERED: Magnesium Oxide TAB* 400 MG PO ONE (08:10)
[2017-07-31] MEDS ORDERED: Potassium Chlor TAB* 20 MEQ TAB.ER PO ONE (08:10)
[2017-07-31] MEDS: Insulin LISPRO* 1 UNITS UNIT SUBCUT SCH ×4 (09:34→21:20)
[2017-07-31] MEDS: Lisinopril TAB* 5 MG PO SCH (09:34)
[2017-07-31] MEDS: Carvedilol TAB* 3.125 MG PO SCH ×2 (09:34→17:37)
[2017-07-31] MEDS: Insulin GLARGINE(*) 1 UNITS UNIT SUBCUT SCH ×2 (09:35→21:20)
[2017-07-31] MEDS: Enoxaparin(*) 40 MG/0.4 ML SYR SUBCUT SCH (12:03)
--- NOTE | 2017-07-31 12:40 | PN ---
Subjective Date of Service: 07/31/17 Interval History: appears less dyspneic today, lung exam improved and murmur less intense no dyspnea or cp or arm pain BP remains low Main complant is loose stools (? cause) Transfer to [facility] pending for tomorrow (Wednesday) I reviewed [address] Shaw. My suspicion is occluded pLcx. RCA was very diffusely disease at the time, LAD was FFR+ distally Medications Active Medications: Aspirin (Aspirin Ec Low Dose*) 81 mg PO DAILY [facility] Last Admin: 07/31/17 08:05 Dose: 81 mg Atorvastatin Calcium (Lipitor*) 80 mg PO 1700 [facility] Last Admin: 07/30/17 17:13 Dose: 80 mg Carvedilol (Coreg Tab*) 3.125 mg PO BID WITH MEALS [facility] Last Admin: 07/31/17 09:34 Dose: 3.125 mg Collagenase (Santyl 250 Mg/Gm Oint*) 1 applic TOPICAL DAILY [facility] Last Admin: 07/30/17 10:39 Dose: 1 applic Dextrose (D50w Syringe 50 Ml*) 12.5 gm IV PUSH .FOR FS < 60 - SS PRN PRN Reason: FS < 60 Enoxaparin Sodium (Lovenox(*)) 40 mg SUBCUT Q24H [facility] Last Admin: 07/31/17 12:03 Dose: 40 mg Furosemide (Lasix Tab*) 80 mg PO DAILY [facility] Last Admin: 07/31/17 08:05 Dose: 80 mg Insulin Glargine (Lantus(*)) 40 units SUBCUT BID [facility] Last Admin: 07/31/17 09:35 Dose: Not Given Insulin Human Lispro (Humalog*) 0 units SUBCUT FS ACHS ICU [facility] PRN Reason: Protocol Last Admin: 07/31/17 12:03 Dose: 2 unit Lisinopril (Prinivil Tab*) 2.5 mg PO DAILY [facility] Last Admin: 07/31/17 09:34 Dose: 2.5 mg Spironolactone (Aldactone Tab*) 25 mg PO DAILY [facility] Last Admin: 07/31/17 08:05 Dose: 25 mg Objective Vital Signs: Temp Pulse Resp BP Pulse Ox 98.5 F 81 15 94/59 97 07/31/17 08:15 07/31/17 08:00 07/31/17 08:15 07/31/17 08:00 07/31/17 08:00 Oxygen Devices in Use Now: Nasal Cannula Appearance: chronically ill appearing, not distressed Ears/Nose/Mouth/Throat: Clear Oropharnyx, Mucous Membranes Moist Neck: - - +jvd Respiratory: Clear to Auscultation, - - mild rales bases, no tachypnea or increased work of breathing sitting up Cardiovascular: - - trace to 1+ edema b/l, RRR, 2-3/6 systolic murmur apex Abdominal: NL Sounds; No Tenderness; No Distention Skin: No Nodules or Sclerosis Neurological: Alert and Oriented x 3 Laboratory Results: 07/31/17 05:40 07/31/17 05:43 APTT 47.8 seconds (26.0-36.3) H 07/30/17 06:22 Total Bilirubin 0.80 mg/dL (0.2-1.0) 07/30/17 06:22 AST 31 U/L (13-39) 07/30/17 06:22 ALT 22 U/L (7-52) 07/30/17 06:22 Alkaline Phosphatase 98 U/L (34-104) 07/30/17 06:22 CK-MB (CK-2) 161.0 ng/mL (0.6-6.3) H 07/28/17 08:31 B-Natriuretic Peptide 447 pg/mL (-100) H 07/27/17 22:44 Total Protein 6.0 g/dL (6.4-8.9) L 07/30/17 06:22 Albumin 2.9 g/dL (3.2-5.2) L 07/30/17 06:22 Globulin 3.1 g/dL (2-4) 07/30/17 06:22 Albumin/Globulin Ratio 0.9 (1-3) L 07/30/17 06:22 Triglycerides 36 mg/dL 07/28/17 04:30 Cholesterol 109 mg/dL 07/28/17 04:30 LDL Cholesterol 65 mg/dL 07/28/17 04:30 HDL Cholesterol 37.0 mg/dL 07/28/17 04:30 07/28/17 07/28/17 07/28/17 01:30 04:30 08:31 Troponin I > 82.00 H* > 82.00 H* > 82.00 H* 07/28/17 10:59 Troponin I > 82.00 H* 07/28/2017: [id number] 9.0 Diagnostic Imagin05/2015 angiogram per report Diffuse LAD disease, 60-75% lesion prior to mid LAD stent, 70% distal LAD (+FFR distally) Diffuse D1 disease with 75% lesion too small for PCI Patent OM stent Severe distal Lcx/LPDH (co-dominant) small vessel disease not a PCI target RCA thin severely disease co-dominant up to 80-90% mid lesion LV gram 55% with mild posterobasal hypokinesis (no mention of MR) R common iliac severe PAD Medical management Assessment/Plan April Chavez is a 52 year old woman with diabetes on insulin not at goal and ongoing tobacco use admitted with symptomatic severe ischemic MR with heart failure, LVEF 35-40% secondary to a large inferior/inferolateral wall [place] late presentation 07/27/2017. - continue aspirin 81 mg PO daily - Has not received any home plavix this admission - continue lasix 80 mg PO daily - continue atorvastatin 80 mg - Continue aldactone 25 mg PO daily - conitnue coreg 3.125 mg PO BID - continue lisinopril 2.5 mg po daily - Cardiomyopathy and MR may make uptitration of cardiac medications difficult, can downtitrate cardiomyopathy medications as needed for SBP < 90 - I discussed with Dr. Soto from cardiac surgery and Dr. Willett, heart failure specialist at [facility] case and medical co-morbidities. Plan will be to transfer tomorrow, have C/RHC Wednesday with further evaluation for a better idea of realistic benefit/success of CABG/MVR. I am not sure if the improvement in murmur today represents a change in LA pressure or improvement of MR but this can be re-evaluated as well at [facility]. Thank you for allowing me to participate in the cardiovascular care of this patient. Please do not hesitate to contact me with questions or concerns
--- NOTE | 2017-07-31 14:26 | PN ---
Subjective Date of Service: 07/31/17 Interval History: She decided she is willing to be transferred to [place] for surgical evaluation. She feels nervous but otherwise has no complaints. Denies chest pain, shortness of breath, nausea, vomiting, palpitations, orthopnea. Family History: Unchanged from Admission Social History: Unchanged from Admission Past Medical History: Unchanged from Admission Objective Active Medications: Aspirin (Aspirin Ec Low Dose*) 81 mg PO DAILY [facility] Last Admin: 07/31/17 08:05 Dose: 81 mg Atorvastatin Calcium (Lipitor*) 80 mg PO 1700 [facility] Last Admin: 07/30/17 17:13 Dose: 80 mg Carvedilol (Coreg Tab*) 3.125 mg PO BID WITH MEALS [facility] Last Admin: 07/31/17 09:34 Dose: 3.125 mg Collagenase (Santyl 250 Mg/Gm Oint*) 1 applic TOPICAL DAILY [facility] Last Admin: 07/30/17 10:39 Dose: 1 applic Dextrose (D50w Syringe 50 Ml*) 12.5 gm IV PUSH .FOR FS < 60 - SS PRN PRN Reason: FS < 60 Enoxaparin Sodium (Lovenox(*)) 40 mg SUBCUT Q24H [facility] Last Admin: 07/31/17 12:03 Dose: 40 mg Furosemide (Lasix Tab*) 80 mg PO DAILY [facility] Last Admin: 07/31/17 08:05 Dose: 80 mg Insulin Glargine (Lantus(*)) 40 units SUBCUT BID [facility] Last Admin: 07/31/17 09:35 Dose: Not Given Insulin Human Lispro (Humalog*) 0 units SUBCUT FS ACHS ICU [facility] PRN Reason: Protocol Last Admin: 07/31/17 12:03 Dose: 2 unit Lisinopril (Prinivil Tab*) 2.5 mg PO DAILY [facility] Last Admin: 07/31/17 09:34 Dose: 2.5 mg Spironolactone (Aldactone Tab*) 25 mg PO DAILY [facility] Last Admin: 07/31/17 08:05 Dose: 25 mg Vital Signs 07/30/17 07/30/17 07/30/17 15:00 15:40 16:00 Temperature 97.0 F Pulse Rate 75 80 Respiratory 15 17 Rate Blood Pressure 109/71 105/74 (mmHg) O2 Sat by Pulse 98 97 Oximetry 07/30/17 07/30/17 07/30/17 17:00 18:00 19:00 Temperature Pulse Rate 75 75 85 Respiratory 17 21 23 Rate Blood Pressure 96/66 105/70 111/80 (mmHg) O2 Sat by Pulse 96 99 99 Oximetry 07/30/17 07/30/17 07/30/17 19:33 19:54 20:00 Temperature 97.5 F Pulse Rate 78 Respiratory 22 16 Rate Blood Pressure 99/61 (mmHg) O2 Sat by Pulse 99 Oximetry 07/30/17 07/30/17 07/30/17 21:00 22:00 23:00 Temperature Pulse Rate 78 78 Respiratory 15 19 16 Rate Blood Pressure 94/55 103/68 (mmHg) O2 Sat by Pulse 97 95 Oximetry 07/30/17 07/30/17 07/30/17 23:05 23:34 23:59 Temperature 98.0 F Pulse Rate 76 Respiratory 17 16 Rate Blood Pressure 84/48 (mmHg) O2 Sat by Pulse 98 Oximetry 07/31/17 07/31/17 07/31/17 00:00 01:00 02:00 Temperature Pulse Rate 75 76 Respiratory 19 20 19 Rate Blood Pressure 92/56 95/56 (mmHg) O2 Sat by Pulse 97 97 Oximetry 07/31/17 07/31/17 07/31/17 02:01 03:00 03:32 Temperature 98.1 F Pulse Rate 76 74 Respiratory 10 14 Rate Blood Pressure 102/66 95/56 (mmHg) O2 Sat by Pulse 95 95 Oximetry 07/31/17 07/31/17 07/31/17 04:00 05:00 05:48 Temperature Pulse Rate 73 79 Respiratory 16 15 16 Rate Blood Pressure 102/68 105/70 (mmHg) O2 Sat by Pulse 96 99 Oximetry 07/31/17 07/31/17 07/31/17 06:00 06:03 07:00 Temperature Pulse Rate 75 72 Respiratory 16 12 16 Rate Blood Pressure 80/51 94/58 83/54 (mmHg) O2 Sat by Pulse 97 94 Oximetry 07/31/17 07/31/17 07/31/17 08:00 08:15 09:00 Temperature 98.5 F Pulse Rate 81 76 Respiratory 14 15 16 Rate Blood Pressure 94/59 (mmHg) O2 Sat by Pulse 97 95 Oximetry 07/31/17 07/31/17 07/31/17 09:04 10:00 11:00 Temperature Pulse Rate 77 79 76 Respiratory 18 23 12 Rate Blood Pressure 99/63 110/75 91/57 (mmHg) O2 Sat by Pulse 96 94 95 Oximetry 07/31/17 12:00 Temperature 97.8 F Pulse Rate 69 Respiratory 9 Rate Blood Pressure 94/64 (mmHg) O2 Sat by Pulse 95 Oximetry Oxygen Devices in Use Now: Nasal Cannula Appearance: alert, mildly tachypneic but no distress Eyes: No Scleral Icterus, PERRLA Ears/Nose/Mouth/Throat: NL Teeth, Lips, Gums Neck: - - JVP 10cm Respiratory: Symmetrical Chest Expansion and Respiratory Effort, Clear to Auscultation Cardiovascular: RRR, No Edema, - - iii/vi systolic murmur at apex with radiation Abdominal: NL Sounds; No Tenderness; No Distention, No Hepatosplenomegaly Lymphatic: No Cervical Adenopathy Extremities: No Edema, - - +clubbing Skin: - - healing ulcer left lateral foot Neurological: Alert and Oriented x 3 Result Diagrams: 07/31/17 05:40 07/31/17 05:43 Microbiology and Other Data: Microbiology 07/28/17 02:00 Nasal Screen MRSA (PCR)(MANUEL) - Final Nasal Mrsa Negative Assess/Plan/Problems-Billing Assessment: 1. NSTEMI with suspected multi-vessel disease and acute on chronic mitral regurgitation Likely needs mitral valve repair/replacement and cabg (based on her prior lhc and wall motion abnormalities on TTE yesterday). The case has been discussed with CT surgery at [facility], who have accepted her. I discussed with the transfer center, and they will accept her tomorrow. In the meantime, I will continue to optimize her medically. Continue bb, lasix, asa, statin, spironolactine; we have been somewhat limited in uptitrating these medications given her blood pressure, which is to be expected in the setting of her ischemic cardiomyopathy and valvular disease. Holding plavix in anticipation of surgery. S/p 48 hours on heparin drip. 2. Acute on chronic systolic heart failure Underlying etiology likely ischemic versus valvular She has diuresed well; now appears more euvolemic continue medical optimization as above 3. Acute hypoxic respiratory failure likely related to #1 and #2, in addition to her underlying COPD 4. PVD continue asa, statin, and will need addition of plavix when surgical plan is decided 5. DM2 Well controlled on Lantus 40U Q12 (this is her home regimen) and sliding scale with meals. 6. dvt ppx--lovenox
[2017-07-31] MEDS: Collagenase 250 MG/GM OINT* 30 GM TOPICAL SCH (15:32)
[2017-07-31] MEDS: Loperamide CAP* 2 MG PO PRN ×2 (16:00→19:49)
[2017-07-31] MEDS: Atorvastatin* 80 MG TAB PO SCH (17:37)
[2017-08-01] MEDS: Insulin LISPRO* 1 UNITS UNIT SUBCUT SCH ×2 (07:47→08:59)
[2017-08-01] MEDS ORDERED: Insulin GLARGINE(*) 1 UNITS UNIT ONE (08:56)
[2017-08-01] MEDS ORDERED: Potassium Chlor TAB* 20 MEQ TAB.ER PO ONE (08:59)
[2017-08-01] MEDS: Aspirin EC Low Dose* 81 MG TAB.EC PO SCH (09:00)
[2017-08-01] MEDS: Spironolactone TAB* 25 MG PO SCH (09:00)
[2017-08-01] MEDS ORDERED: Insulin GLARGINE(*) 1 UNITS UNIT SUBCUT SCH (09:00)
[2017-08-01] MEDS: Furosemide TAB* 40 MG PO SCH (09:00)
[2017-08-01] MEDS: Carvedilol TAB* 3.125 MG PO SCH (09:01)
[2017-08-01] MEDS: Lisinopril TAB* 5 MG PO SCH (09:01)
[2017-08-01] MEDS: Collagenase 250 MG/GM OINT* 30 GM TOPICAL SCH ×2 (09:09→10:59)
[2017-08-01] MEDS: Enoxaparin(*) 40 MG/0.4 ML SYR SUBCUT SCH (10:51)
--- NOTE | 2017-08-01 12:48 | TRS ---
CC: Dr. Garcia; Dr. Grimaldo Cardiology at [facility]; Dr. Gan; Dr. Crump Cardiothoracic Surgery at [facility]; Dr. Willett Cardiology at [facility]; Dr. Jaeger Hospitalist at [facility] * TRANSFER SUMMARY/DISCHARGE SUMMARY DATE OF ADMISSION: 07/28/2017 DATE OF TRANSFER: 08/01/2017 to [facility] PRIMARY CARE PROVIDER: Dr. Garcia REASON FOR TRANSFER/DIAGNOSES: 1. Symptomatic severe ischemic mitral regurgitation with heart failure, EF of 35% to 40% secondary to large inferior lateral wall myocardial infarction with later presentation on 07/27/2017. 2. Ongoing tobacco abuse. 3. Uncontrolled diabetes with hemoglobin A1c on 07/28/17 of 9.0. SECONDARY DIAGNOSES: 1. History of peripheral arterial disease followed by Dr. Shaw from Inter[facility] Cardiology. Patient has a right foot ulcer also being followed by our [facility] and Dr. Buchanan. 2. History of possibility of chronic obstructive pulmonary disease based on limited study of PFTs in March of 2017. 3. History of congestive heart failure. 4. History of cardiac disease status post 4 stents in 2008. 5. Diabetes type 2. 6. Hysterectomy. 7. Cholecystectomy. 8. History of C section. CURRENT MEDICATIONS AT THE TIME OF TRANSFER: Include: 1. Aldactone 25 mg daily. 2. Magnesium oxide 40 mg 1 dose administered on 07/31/17. 3. Potassium chloride 40 mEq dose administered on 07/31/17. 4. Lisinopril 2.5 mg daily. 5. Lispro sliding scale. 6. Insulin Lantus 10 units daily last administered on 08/01/17 at 9 a.m. 7. Furosemide 80 mg p.o. daily. 8. Lovenox 40 mg subcutaneously every 24 hours. 9.. Santyl applied to wound on right foot daily. 10. Coreg 325 mg p.o. b.i.d. 11. Lipitor 80 mg daily. 12. Aspirin 81 mg daily. HOSPITALIZATION COURSE: Mrs. Chavez is a 52-year-old female with history of smoking, peripheral arterial disease followed by Dr. Shaw, chronic right foot ulcer, who presented to the hospital on 07/28/17 complaining of shortness of breath. Initially she was noted to be chest pain free. Initial troponin was noted to be above 82 and continued to be above 82 throughout initial 24 hours of her hospital stay. Transthoracic echocardiogram obtained on 07/28/17 showed EF of 35% to 40% with severe mitral regurgitation and mild to moderate mitral stenosis. Patient was seen by Dr. Gan and Dr. Grimaldo in cardiology consultation. Patient was noted to have an ischemia of the inferolateral wall and subsequent development of severe mitral regurgitation. When she presented she was in acute systolic CHF. She was diuresed and stabilized hemodynamically. By the time of transfer to [facility] she was on room air with systolic pressures running from high 80s to 100 teens. Her heart rate has been in the 70s for the past 48 hours. She is chest pain free and denies dyspnea. Patient was noted to be in consideration for mitral valve replacement. Extensive discussions were had between our cardiology team and cardiology team at [facility], and patient was deemed to be a good candidate for transfer and evaluation for possibility of mitral valve replacement versus repair. During the hospital stay patient was continued on aspirin, beta maria victoria, statin , ROGE inhibitor and Aldactone for medical optimization of her treatment. LABORATORY DATA DURING HOSPITAL STAY: 1. On 07/31/17 sodium 134, potassium 3.3, chloride 103, carbon dioxide 26, BUN 19, creatinine 0.7. 2. WBC count 7.9, hemoglobin , hematocrit 33, platelets of 196. 3. Transthoracic echocardiogram obtained on 07/28/17 mentioned as above. Noticed to have severe mitral regurgitation, mild to moderate mitral stenosis and EF of 35% to 40%. For details of patient's echocardiogram report please see the records included in the transfer packet. 4. Portable chest x-ray obtained on 07/27/17. Impression: "Findings consistent with congestive heart failure, less likely pneumonia." 5. Patient's cholesterol profile obtained on 07/28/17 showed triglycerides of 36, cholesterol total 109, LDL 65, HDL 37. 6. Glucose on patient's presentation at admission was 375. For the past 24 hours patient's glucose ranged from 135 the lowest at 8 a.m. today in the morning, to 309 that was reported after dinner on 07/31/17 PHYSICAL EXAM AT THE TIME OF TRANSFER: Patient's blood pressures ranged from 81 systolic to 102 systolic in the past 24 hours. Most recent blood pressure is 87/59. Heart rate of 74. Respiratory rate 14. Oxygen saturation 98% on room air. Temperature 97.1. General: The patient is a pleasant 52-year-old female who is not in acute distress. Alert, awake, and oriented x3. HEENT: Head: Atraumatic, normocephalic. Eyes: Pupils are equal, reactive to light and accommodation. Oropharynx is clear. Mucosa moist. Neck: Supple. No JVD. No bruits bilaterally. Cardiovascular: Regular rate and rhythm with 2/6 systolic murmur most clearly on auscultation of the apical region. Respiratory: Fine crackles at bilateral bases.. Abdomen: Soft, nontender. Bowel sounds are present in all 4 quadrants. Extremities: Poorly palpable peripheral pulses with good capillary return bilaterally. Patient has on the lateral aspect of the bottom of her right foot, she has a circular ulcer of approximately 1 cm in diameter, stage 2-3 with no evidence of acute infection. There are no rashes or other ulcers noted on skin evaluation. Neuro Evaluation: Speech clear. Cranial Nerves II through XII grossly intact. Sensation is grossly intact. Psychiatric Evaluation: Oriented x3 with no evidence of anxiety or depression. Please note that patient was kindly accepted for transfer by Dr. Jaeger from the hospitalist service at [facility]. Dr. Crump and Dr. Willett were also the physicians with whom the transfer was discussed the day prior. Please note that this is a short summary of the patient's hospitalization. Please refer to further medical records for details. TIME SPENT: Approximately 45 minutes was spent on patient's transfer. [id number]/[facility] #: [id number] [facility]
[2017-08-01 13:04] VITALS: BP 95/69
== END 2017-08-01 13:15 | disposition short-term general hospital (02) | DRG 280 ==
LOC: ED 20:52 → ICU 07-28 00:32
PROVIDERS: ADMIT Internal Medicine; ATTEND Internal Medicine
DX: I21.19 ST elevation (STEMI) myocardial infarction involving other coronary artery of inferior wall (principal); J96.01 Acute respiratory failure with hypoxia; I50.23 Acute on chronic systolic (congestive) heart failure; L97.429 Non-pressure chronic ulcer of left heel and midfoot with unspecified severity; E11.51 Type 2 diabetes mellitus with diabetic peripheral angiopathy without gangrene; E11.621 Type 2 diabetes mellitus with foot ulcer; E11.65 Type 2 diabetes mellitus with hyperglycemia; I25.119 Atherosclerotic heart disease of native coronary artery with unspecified angina pectoris; I34.0 Nonrheumatic mitral (valve) insufficiency; F17.210 Nicotine dependence, cigarettes, uncomplicated; J44.9 Chronic obstructive pulmonary disease, unspecified; L97.519 Non-pressure chronic ulcer of other part of right foot with unspecified severity; E87.6 Hypokalemia; E83.42 Hypomagnesemia; E78.5 Hyperlipidemia, unspecified; Z79.01 Long term (current) use of anticoagulants; Z95.5 Presence of coronary angioplasty implant and graft; Z79.82 Long term (current) use of aspirin; Z79.4 Long term (current) use of insulin; Z79.899 Other long term (current) drug therapy; Z88.1 Allergy status to other antibiotic agents; Z88.8 Allergy status to other drugs, medicaments and biological substances; Z82.49 Family history of ischemic heart disease and other diseases of the circulatory system; Z83.3 Family history of diabetes mellitus; Z80.1 Family history of malignant neoplasm of trachea, bronchus and lung
CPT/HCPCS: 36415; 71020; 80048; 80053; 80061; 80320; 82550; 82553; 82947; 83036; 83605; 83735; 83880; 84100; 84484; 84520; 85025; 85730; 87641; 93005; 93306; 99406; A9270-GY; C8929; G0480; J0696; J1644; J1650; J1940; J2930

== ENCOUNTER 2018-02-01 11:03 | Observation (INO) | payer MEDICARE ==
[2018-02-01] MEDS ORDERED: Diazepam TAB(*) 5 MG ONE (12:37)
[2018-02-01] MEDS ORDERED: diPHENhydraMINE PO* 25 MG ONE (12:37)
[2018-02-01 12:41] LABS: ABS Basophils 0 10^3/ul (0-0.2); ABS Eosinophils 0.1 10^3/ul (0-0.6); ABS Lymphocytes 2.1 10^3/ul (1.0-4.8); ABS Monocytes 0.4 10^3/ul (0-0.8); ABS Neutrophils 4.9 10^3/ul (1.5-7.7); ABS Nucleated RBC 0 10^3/ul; Eosinophil % 1.7 % (0-6); Hematocrit 37 % (35-47); Hemoglobin 12.9 g/dl (12.0-16.0); Lymphocyte % 27.7 % (25-47); Mean Corpuscular HGB Conc 35 g/dl (31-36); Mean Corpuscular Hemoglobin 30 pg (27-31); Mean Corpuscular Volume 87 fL (80-97); Mean Platelet Volume 8.5 um3 (7.4-10.4); Nucleated Red Blood Cells % 0.1; Platelet Count 199 10^3/ul (150-450); Red Blood Count 4.29 10^6/ul (4.0-5.4); Red Cell Distribution Width 14 % (10.5-15); White Blood Count 7.6 10^3/ul (3.5-10.8)
[2018-02-01 12:55] LABS: EGFR Non-African American 70.9 (>60)
[2018-02-01] MEDS ORDERED: Lidocaine 1% INJ* 10 MG/ML 30 ML SDV ONE (13:00)
[2018-02-01] MEDS ORDERED: fentaNYL* 50 MCG/ML 2 ML VIAL (100 MCG VIAL) ONE ×3 (13:00→14:47)
[2018-02-01] MEDS ORDERED: Midazolam* 1 MG/ML 5 ML VIAL (5 MG) ONE (13:00)
[2018-02-01] MEDS ORDERED: Iohexol 350 (CONTRAST) 200 ML MDV IV ONE (13:00)
[2018-02-01] MEDS ORDERED: Heparin 2 UNITS/ML IVPREMIX* 2,000 ML IV ONE (13:01)
[2018-02-01] MEDS ORDERED: Aspirin 81 mg CHEW TAB* 81 MG TAB.CHEW ONE (13:09)
[2018-02-01] MEDS ORDERED: Clopidogrel TAB* 75 MG ONE (13:12)
[2018-02-01] MEDS ORDERED: Iodixanol* (CONTRAST) 320 MG/ML 100 ML SDV ONE ×2 (13:25→13:52)
[2018-02-01] MEDS ORDERED: Heparin(*) 1000 UNIT/ML 10 ML VIAL CATH LAB IV ONE (13:46)
[2018-02-01] MEDS ORDERED: nitroGLYCERIN DRIP* 25,000 MCG/250 ML BTL ONE (14:47)
[2018-02-01] MEDS ORDERED: Acetaminophen TAB* 325 MG PO PRN (16:13)
[2018-02-01] MEDS ORDERED: oxyCODONE/Acetamin 5/325 MG* TAB PO PRN (16:13)
[2018-02-01] MEDS ORDERED: NS 0.9% 1000 ML* 1,000 ML IV SCH (16:15)
[2018-02-01] MEDS ORDERED: Gabapentin CAP(*) 300 MG PO PRN (16:16)
[2018-02-01] MEDS ORDERED: Albuterol HFA INHALER* 8 gm MDI INH PRN (17:00)
[2018-02-01] MEDS: Carvedilol TAB* 3.125 MG PO SCH (22:21)
[2018-02-01] MEDS: Insulin GLARGINE(*) 1 UNITS UNIT SUBCUT SCH (22:23)
[2018-02-02] MEDS ORDERED: Insulin LISPRO* 1 UNITS UNIT SUBCUT ONE (03:00)
[2018-02-02 08:16] VITALS: BP 107/61
[2018-02-02 08:28] LABS: ABS Basophils 0 10^3/ul (0-0.2); ABS Eosinophils 0.1 10^3/ul (0-0.6); ABS Lymphocytes 1.5 10^3/ul (1.0-4.8); ABS Monocytes 0.5 10^3/ul (0-0.8); ABS Neutrophils 5.5 10^3/ul (1.5-7.7); ABS Nucleated RBC 0 10^3/ul; Eosinophil % 1.8 % (0-6); Hematocrit 31 % (35-47); Hemoglobin 11.1 g/dl (12.0-16.0); Lymphocyte % 19.6 % (25-47); Mean Corpuscular HGB Conc 36 g/dl (31-36); Mean Corpuscular Hemoglobin 31 pg (27-31); Mean Corpuscular Volume 87 fL (80-97); Nucleated Red Blood Cells % 0.1; Platelet Count 184 10^3/ul (150-450); Red Blood Count 3.56 10^6/ul (4.0-5.4); Red Cell Distribution Width 13 % (10.5-15); White Blood Count 7.7 10^3/ul (3.5-10.8)
[2018-02-02] MEDS ORDERED: Linagliptin (NF) 5 MG TAB PO SCH (09:00)
[2018-02-02] MEDS ORDERED: Spironolactone TAB* 25 MG PO SCH (09:00)
[2018-02-02] MEDS ORDERED: Lisinopril TAB* 5 MG PO SCH (09:00)
[2018-02-02] MEDS ORDERED: Atorvastatin* 80 MG TAB PO SCH (09:00)
[2018-02-02] MEDS ORDERED: Aspirin EC TAB* 81 MG TAB.EC PO SCH (09:00)
[2018-02-02] MEDS ORDERED: Clopidogrel TAB* 75 MG PO SCH (09:00)
[2018-02-02] MEDS: Carvedilol TAB* 3.125 MG PO SCH (09:12)
[2018-02-02] MEDS: Insulin GLARGINE(*) 1 UNITS UNIT SUBCUT SCH (09:12)
--- NOTE | 2018-02-02 15:06 | DS ---
CC: Dr. Garcia; Dr. Grimaldo * DISCHARGE SUMMARY: DATE OF ADMISSION: 02/01/18 DATE OF DISCHARGE: 02/02/18 PRIMARY CARE PHYSICIAN: Dr. Garcia. DISCHARGE DIAGNOSES: 1. Atherosclerosis, right lower extremity with heel ulcer. 2. History of bypass grafting and mitral valve replacement. 3. Diabetes type 2. 4. Hyperlipidemia. 5. Chronic obstructive pulmonary disease. CONDITION ON DISCHARGE: Stable. PROCEDURES: Right lower extremity angiography, angioplasty DCB, right common femoral artery , angioplasty right posterior tibial 2.5 mm, angioplasty right proximal plantar 2.0 mm. DISCHARGE MEDICATIONS: 1. Aldactone 25 mg daily. 2. Carvedilol 3.125 b.i.d. 3. Albuterol inhaler 2 puffs four times a day. 4. Humalog 15 units subcu t.i.d. 5. Linagliptin 5 mg p.o. daily. 6. Lantus insulin 40 units subcu b.i.d. 7. Neurontin 300 mg daily p.r.n. 8. Aspirin 81 mg daily. 9. Zantac 300 mg at bedtime. 10. Lasix 40 mg daily p.r.n. edema. 11. Lipitor 80 mg daily. 12. Lisinopril 2.5 mg daily. 13. Plavix 75 mg daily. ACTIVITY: To avoid heavy lifting for 24 hours. Wound care, shower only for three days. FOLLOWUP: Follow up with Wound Clinic as previously, Dr. Shaw next week for a wound check as scheduled with Dr. Garcia as scheduled for a followup. LABORATORY DATA: CBC on 02/01 was normal, remained unremarkable postintervention. Chemistry on 02/01, hyponatremia at 134, elevated random blood sugar of 298, BUN 22, creatinine 0.84. Post lower extremity intervention, BMP today stable with creatinine 0.8. HOSPITAL COURSE: She underwent outpatient angiography via left femoral access with up and over imaging. She had significant residual stenosis at the right common femoral site previously treated last fall in [place]. There was a 40- mm gradient across it. She also had an angiographically significant fairly focal mid posterior tibial stenosis, and severe disease of the right plantar. The medial and lateral plantars were severely and diffusely diseased and occluded in their mid portions, small. The pedal loop was patent from the anterior tibial. The common plantar disease began after the medial calcaneal artery from the posterior tibia. She underwent predilatation followed by drug-coated balloon angioplasty, 6 mm of the right common femoral site with angiographic improvement, underwent 2.5 mm angioplasty of the posterior tibial with angiographic improvement, and had 2 mm angioplasty of the common plantar, which did have improved antegrade flow, although remained small, diffusely diseased. If she fails to heal her wound, there was a potential for opening the medial and lateral plantars through a pedal approach or retrograde through the pedal loop from the anterior tibial. Because of very late conclusion of the angiographic and revascularization procedure, she was kept overnight, discharged the following morning without any complications, the left groin site is stable without hematoma. Her medical regimen was not changed. She is seeing Dr. Garcia today for a followup of her diabetes. [id number]/[facility] #: [id number] MTDD
--- NOTE | 2018-02-03 21:35 | CATH ---
CC: Dr. Garcia; Dr. Grimaldo * PERIPHERAL ANGIOGRAPHY AND INTERVENTIONAL REPORT: DATE OF PROCEDURE: 02/01/18 PRIMARY CARE PHYSICIAN: Dr. Garcia. SKIP PITMAN: Dr. Grimaldo. PROCEDURES: Left common femoral artery access with ultrasound guidance, aortoiliac angiography, right lower extremity SFA popliteal and infrapopliteal angiography. HISTORY: A 52-year-old woman with right common femoral angioplasty in August 2017 with a 4 mm balloon, now with CLI with slowly healing wound on the plantar surface of the right heel. PROCEDURE ACCESS: Left common femoral artery sheath 5F. A 5-[place] Zealander pigtail was used for aortoiliac angiography. It was then exchanged to a 6-[place] Zealander x 90 Destination sheath, which was positioned up and over. With the tip in the right external iliac, right common femoral artery angiography as well as SFA angiography was performed. Imaging of the below knee vessels were performed with digital subtraction after the sheath was positioned in the popliteal. The gradient across the right common femoral artery was recorded with a 4-[place] Zealander catheter, was around 40 mmHg. This was then dilated with a 6 x 40 mm balloon, 5 atmospheres 70 seconds. Distal angiography demonstrated significant stenosis of the right common plantar with occlusion of the medial and lateral plantar branches. A 14 Runthrough NS wire was used to select the common plantar. Because of the diminutive size of the medial and lateral plantar branches and the absence of forefoot ulceration, I elected to angioplasty the common plantar and back to improve perfusion to the plantar surface of the heel. The medial plantar branch from the posterior tibial was patent, arose before the stenosis in the common plantar. A 2 x 100 NanoCross balloon was used to dilate the common plantar 4 atmospheres 70 seconds with gradual step-huertas inflation. The balloon was pulled more proximally, then gradually inflated to 9 atmospheres, at 10 atmospheres there was full balloon expansion. A 2.5 x 40 NanoCross balloon was then inflated in the mid posterior tibial stenosis 4 atmospheres 180 seconds, because of residual stenosis then inflated to 6 atmospheres for 180 seconds. An IN.PACT 6 x 40 DCB was then inflated to 8 atmospheres at 180 seconds in the right proximal SFA/common femoral artery lesion site. MEDICATIONS: 1. Subcutaneous lidocaine. 2. IV Versed. 3. IV fentanyl. 4. Heparin 6000 units, 2000 units. 5. Nitroglycerin 400, 400 mcg IA. HEMODYNAMICS: Initial BP 161/91, final BP 155/89. ANGIOGRAPHY: Injection in the sheath in the left common femoral shows the common internal and external iliac to be patent. There is a moderate tubular stenosis in the common femoral leading up to the bifurcation. Sheath entry is close to the bifurcation. Imaging of the right common femoral shows it to be patent, the very distal end of the right common femoral has an eccentric 75% stenosis adjacent to the takeoff of the profunda. This is the area that was treated previously with angioplasty. The SFA is patent as is the popliteal. The anterior tibial is widely patent, the peroneal has high-grade proximal stenosis, the TP trunk is patent as is the posterior tibial. The anterior tibial has a high takeoff. The posterior tibial is patent to the common plantar which supplies medial calcaneal branch, thereafter the common plantar has severe stenosis before bifurcating into medial and lateral plantar branches. They are both diffusely and severely diseased, occluded in the mid portion. The anterior tibial was patent to the dorsalis pedis, the dorsalis pedis is patent to the deep plantar. The deep plantar does fill the lateral plantar retrograde back to its point of occlusion. After angioplasty of the proximal portion of the common plantar that segment has less stenosis, imaging was suboptimal due to foot movement, the distal plantar branches were unchanged. After angioplasty of the mid posterior tibial x2, there was less than 30% residual stenosis. After dilatation of the common plantar, I was unable to re-access the lateral plantar. After DCB of the right common femoral/SFA, there is less than 30% residual stenosis. Left common femoral again showed moderate stenosis in the common femoral, and sheath entry adjacent to the bifurcation, it was therefore not sealed. CONCLUSION: 1. Significant stenosis right common femoral with 40 mm gradient, successful revascularization with balloon angioplasty followed by 6 mm DCB. 2. [id number] mid posterior tibial stenosis, successful angioplasty. 3. Severe distal disease right posterior tibial involving the distal common plantar as well as medial and lateral plantar branches which are small, diffusely diseased and occluded in the mid portion. Successful revascularization of the posterior tibial and distal common plantar. If the plantar heel wound fails to heal, she is a potential candidate for retrograde recannulization of the pedal loop, which could not be reaccessed antegrade after common plantar angioplasty. 4. Manual compression use for left groin hemostasis. [id number]/[facility] #: [id number] [facility]
== END 2018-02-02 11:25 | disposition home or self-care (01) ==
LOC: CHICATH 11:03 → ICU 17:52 → SSU 23:40
PROVIDERS: ADMIT Internal Medicine Cardiovascular Disease; ATTEND Internal Medicine Cardiovascular Disease
DX: I70.234 Atherosclerosis of native arteries of right leg with ulceration of heel and midfoot (principal); Z95.2 Presence of prosthetic heart valve; E11.9 Type 2 diabetes mellitus without complications; E78.5 Hyperlipidemia, unspecified; J44.9 Chronic obstructive pulmonary disease, unspecified; Z79.82 Long term (current) use of aspirin; I10 Essential (primary) hypertension; I25.2 Old myocardial infarction; F17.210 Nicotine dependence, cigarettes, uncomplicated; Z79.4 Long term (current) use of insulin
CPT/HCPCS: 36415; 76937; 80048; 82947; 85025; 99156; 99157; A9270-GY; C1725; C1769; C1887; C2623; G0378; J1644; J2250; J3010

== ENCOUNTER 2018-02-21 15:19 | Emergency (ER) | payer MEDICAID, MEDICARE ==
[2018-02-21 15:48] VITALS: BP 94/62
[2018-02-21] MEDS ORDERED: Metoclopramide TAB* 10 MG PO ONE (15:53)
--- NOTE | 2018-02-21 16:18 | UC ---
Respiratory Complaint HPI - HPI Summary HPI Summary: Pt c/o nasal congestion, cough, fatigue, and nausea X3 days. Pt was vomiting at time of exam. Pt is a diabetic and has not been taking her insulin as she reports she has not been eating regular meals. - History of Current Complaint Chief Complaint: UCGeneralIllness Stated Complaint: CONGESTION,COUGH,FATIGUE Time Seen by Provider: 02/21/18 15:42 Hx Obtained From: Patient ?: No Onset/Duration: Gradual Onset, Lasting Days, Still Present, Worse Since - onset Timing: Constant Severity Initially: Mild Severity Currently: Moderate Pain Intensity: 0 Character: Cough: Nonproductive Aggravating Factors: Deep Breaths, Recumbent Position Alleviating Factors: Nothing Associated Signs And Symptoms: Positive: Fever, URI, Nasal Congestion - Risk Factors Pulmonary Embolism Risk Factors: Negative Cardiac Risk Factors: Hypertension, Diabetes Pseudomonas Risk Factors: Negative Tuberculosis Risk Factors: Diabetes - Allergies/Home Medications Allergies/Adverse Reactions: Allergies Allergy/AdvReac Type Severity Reaction Status Date / Time levofloxacin [From Levaquin] Allergy Nausea And Verified 02/21/18 15:36 Vomiting ondansetron Allergy Hives Verified 02/21/18 15:36 [From Zofran (as hydrochloride)] PMH/Surg Hx/FS Hx/Imm Hx Previously Healthy: No Endocrine History: Diabetes Cardiovascular History: Cardiac Disease, Hypertension Other History Of: Anticoagulant Therapy - Surgical History Surgical History: Yes Surgery Procedure, Year, and Place: Complete Hysterectomy 2004; [facility]; HEART CATH- 4 CARDIAC STENTS, CABG, MVR - Family History Known Family History: Positive: Cardiac Disease - Social History Occupation: Unemployed Lives: With Family Alcohol Use: None Substance Use Type: Prescribed Smoking Status (MU): Former Smoker Have You Smoked in the Last Year: No - Immunization History Most Recent Influenza Vaccination: 06/2017 Most Recent Pneumonia Vaccination: 2006 Review of Systems Constitutional: Fever, Chills, Fatigue Skin: Negative Eyes: Negative ENT: Sinus Congestion Respiratory: Cough Cardiovascular: Negative Gastrointestinal: Vomiting, Nausea Genitourinary: Negative Motor: Negative Neurovascular: Negative Musculoskeletal: Negative Neurological: Weakness Psychological: Negative Is Patient Immunocompromised?: No All Other Systems Reviewed And Are Negative: Yes Physical Exam Triage Information Reviewed: Yes Appearance: Ill-Appearing Vital Signs: Initial Vital Signs Temp 98.2 F 02/21/18 15:39 Pulse 94 02/21/18 15:39 Resp 22 02/21/18 15:39 BP 94/62 02/21/18 15:39 Pulse Ox 100 02/21/18 15:39 Vital Signs Reviewed: Yes Eye Exam: Normal ENT Exam: Other ENT: Positive: Nasal congestion Neck exam: Normal Respiratory Exam: Normal Cardiovascular Exam: Normal Musculoskeletal Exam: Normal Neurological Exam: Normal Psychological Exam: Normal Skin Exam: Normal UC Diagnostic Evaluation - Laboratory O2 Sat by Pulse Oximetry: 100 Respiratory Course/Dx - Course Course Of Treatment: AT luis eof discharge, pt stated that she was feeling much better, no longer nauseous and no longer vomiting. I discussed with the pt my concerns about her BG level and the need to manage her DM with prescribed medications including inslulin. I also discussed with the pt her BP at time of exmaination and to not take her HTN medication until she was seen by her PCP aniceto. Pt verbalized understanding and agreed to paln of care. - Differential Dx/Diagnosis Differential Diagnosis/HQI/PQRI: Bronchitis, Influenza, Other Provider Diagnoses: gastorenteritis. elevated blood glucose Discharge - Sign-Out/Discharge Documenting (check all that apply): Discharge/Admit/Transfer - Discharge Plan Condition: Stable Disposition: HOME Prescriptions: Metoclopramide TAB* [Reglan TAB*] 10 mg PO Q6H PRN #15 tab PRN Reason: Nausea Patient Education Materials: Upper Respiratory Infection (DC), Managing Diabetes During Sick Days (ED), Acute Nausea and Vomiting (ED) Referrals: Jamaal Garcia DO [Primary Care Provider] - As Soon As Possible Additional Instructions: Please follow up with your PCP as soon as possible. Please note, that if any of your symptoms worsen, you are to seek care immediately at the closest Emergency Room. - Billing Disposition and Condition Condition: STABLE Disposition: HOME
== END 2018-02-21 16:45 | disposition home or self-care (01) ==
LOC: UCCORT 15:19
DX: K52.9 Noninfective gastroenteritis and colitis, unspecified (principal); E11.9 Type 2 diabetes mellitus without complications; T38.3X6A Underdosing of insulin and oral hypoglycemic [antidiabetic] drugs, initial encounter; Z91.128 Patient's intentional underdosing of medication regimen for other reason; Z79.4 Long term (current) use of insulin; I10 Essential (primary) hypertension; Z91.11 Patient's noncompliance with dietary regimen; Z88.1 Allergy status to other antibiotic agents; Z88.8 Allergy status to other drugs, medicaments and biological substances; Z87.891 Personal history of nicotine dependence
CPT/HCPCS: 87502; 99212; A9270-GY; G0463

== ENCOUNTER 2018-05-25 20:59 | Emergency (ER) | payer MEDICARE ==
--- NOTE | 2018-05-25 21:28 | UC ---
General HPI - HPI Summary HPI Summary: Patient presents to urgent care with her spouse. Patient with a history of diabetes, hypertension, peripheral vascular disease with stenting, two-vessel CABG and mitral valve replacement that occurred last July 2017 at [facility]. Patient also with a history of heartburn. Patient here with 3 days of continuous heartburn. Patient's been taking her ranitidine as well as Tums frequently without improvement. Patient states "I know this is not my heart I know it is my acid." Patient here tonight because of the discomfort. Patient describes it as a burning pain with belching and she reports acid taste in her mouth. Patient denies shortness of breath. Patient denies diaphoresis. Patient states her feet are swollen but this is baseline. Patient does take Plavix and aspirin 81 mg daily which she took both today. Patient states she had a stress test 10-14 days ago by her supervisor hand silvering, Dr. Grimaldo, and "they told me everything was fine. "Patient did not call any providers over the last 3 days came here tonight because of the ongoing discomfort. no nausea. No back pain. Pt's medications reviewed this visit . - History of Current Complaint Chief Complaint: UCChestPain Stated Complaint: SEVERE HEARTBURN Time Seen by Provider: 05/25/18 21:06 Hx Obtained From: Patient, Medical Records Onset/Duration: Gradual Onset Timing: Constant Onset Severity: Moderate Current Severity: Moderate Pain Intensity: 4 - Allergy/Home Medications Allergies/Adverse Reactions: Allergies Allergy/AdvReac Type Severity Reaction Status Date / Time levofloxacin [From Levaquin] Allergy Nausea And Verified 02/21/18 15:36 Vomiting ondansetron Allergy Hives Verified 02/21/18 15:36 [From Zofran (as hydrochloride)] Home Medications: Home Medications Calcium Carbonate [Tums] 200 mg PO Q4H 05/25/18 [History Confirmed 05/25/18] PMH/Surg Hx/FS Hx/Imm Hx Previously Healthy: No Endocrine History: Diabetes, Dyslipidemia Cardiovascular History: Cardiac Disease, Hypertension, Myocardial Infarction GI/ History: Gastroesophageal Reflux Other History Of: Anticoagulant Therapy - Surgical History Surgical History: Yes Surgery Procedure, Year, and Place: Complete Hysterectomy 2004; [facility]; HEART CATH- 4 CARDIAC STENTS, CABG, MVR - Family History Known Family History: Positive: Cardiac Disease - Social History Lives: With Family Alcohol Use: None Substance Use Type: None Smoking Status (MU): Former Smoker Have You Smoked in the Last Year: No - Immunization History Most Recent Influenza Vaccination: 06/2017 Most Recent Pneumonia Vaccination: 2006 Review of Systems Constitutional: Negative Gastrointestinal: Other - epigastric All Other Systems Reviewed And Are Negative: Yes Physical Exam - Summary Physical Exam Summary: Vital Signs Reviewed: Yes A+Ox3, no distress Eyes: Conjunctiva Clear, URIEL. EOM intact and full ENT: Hearing grossly normal TM x 2 clear, mmoist, uvula midline, no exudate, no erythema Neck: Positive: Supple Respiratory: Positive: No respiratory distress, No accessory muscle use + CTA throughout no w/r Cardiovascular: RRR nl s1, s2 no m/r CBT <2 sec abd soft + BS nt/nd no guarding, no distension no guarding Musculoskeletal Exam: VENCES x 4 without difficulty Strength Intact, ROM Intact Neurological: Positive: Alert, + sensation throughout Psychological: Positive: Normal Response To Family Skin: Positive: no rash, no ecchymosis Triage Information Reviewed: Yes Vital Signs: Initial Vital Signs Temp 97.8 F 05/25/18 21:07 Pulse 98 05/25/18 21:07 Resp 19 05/25/18 21:07 BP 149/78 05/25/18 21:07 Pulse Ox 100 05/25/18 21:07 Diagnostics - EKG EKG Comments: sinus, 96 Cardiac Rate: NL Cardiac Rhythm: Other Rhythm: New - RBBB Ectopy: None Course/Dx - Course Course Of Treatment: Patient presents to urgent care complaining of 3 days of continuous epigastric pain. This is not relieved by her Ranatidine or repeated Tums. Patient with extensive medical history including coronary disease with two-vessel CABG as well as a mitral valve replaced in July 2017, hypertension , diabetes patient states she had a stress test by her supervisor hand silvering 2 weeks ago that was reported to be non-concerning. Patient did not seek care prior to coming here tonight. Patient did take her Plavix as well as her 81mg aspirin today. I had a long discussion with patient and her related to her risk factors and concern for this being a cardiac process. Patient does have a right bundle-branch block present on today's EKG that was also noted on EKG October 2017. Patient does however have a negative axis of her QRS that was not present the same timeframe. Patient did take her Plavix today. Patient did take 81 mg of aspirin today. I discussed the patient should go for further evaluation emergency department. Patient would like to go by private car. I discussed with patient the risks of this and recommended she go by EMS that she can have monitoring en route. Patient adamant she wanted to go. Patient's present and going to drive her. Discussed with them if any there is any change patient pullover immediately and call 911. Discussed with patient risks of going by private car which include unrecognized cardiac condition, dysrhythmia, apparent disability or . Patient states understanding accepting of this. AMA forms completed by patient as well as her . Nurse in the room and reviewed AMA paperwork with patient. Pt accepts and understands risks. I spoke to MADDIE Beatty in the emergency department and aware the patient is coming by private car. - Differential Dx - Multi-Symptom Provider Diagnoses: epigastric pain Discharge - Sign-Out/Discharge Documenting (check all that apply): Patient Departure - Discharge Plan Condition: Stable Disposition: AGAINST MEDICAL ADVICE Patient Education Materials: Against Medical Advice (ED), Epigastric Pain (ED) Referrals: Jamaal Garcia DO [Primary Care Provider] - Additional Instructions: - The doctor that evaluated you today recommends you go to the emergency department for further evaluation of your pain. The doctor that evaluated you recommended you go by ambulance - you are leaving against medical advice. Go directly to the emergency department at [facility]. If anything changes, ear pull machine operator and immediately call 911 - Billing Disposition and Condition Condition: STABLE Disposition: Against Medical Advice
[2018-05-25 21:37] VITALS: BP 149/78
== END 2018-05-25 21:40 | disposition left against medical advice (07) ==
LOC: UCCORT 20:59
DX: R10.13 Epigastric pain (principal); E11.9 Type 2 diabetes mellitus without complications; I10 Essential (primary) hypertension; Z95.1 Presence of aortocoronary bypass graft; Z79.01 Long term (current) use of anticoagulants; Z95.2 Presence of prosthetic heart valve; Z88.1 Allergy status to other antibiotic agents; Z88.8 Allergy status to other drugs, medicaments and biological substances; Z87.891 Personal history of nicotine dependence
CPT/HCPCS: 93005; 99212; G0463

== ENCOUNTER 2018-05-25 22:19 | Observation (INO) | payer MEDICARE ==
[2018-05-25] MEDS ORDERED: Pantoprazole IV* 40 MG IV ONE (23:12)
[2018-05-25] MEDS ORDERED: Lidocaine 2% VISCOUS* 15 ML UDC PO ONE (23:13)
[2018-05-25] MEDS ORDERED: Al Hydrox/Mg Hydrox/Simet LIQ* 30 ML UDC PO ONE (23:13)
[2018-05-25 23:46] LABS: ABS Basophils 0.1 10^3/ul (0-0.2); ABS Eosinophils 0.2 10^3/ul (0-0.6); ABS Lymphocytes 2.6 10^3/ul (1.0-4.8); ABS Monocytes 0.6 10^3/ul (0-0.8); ABS Neutrophils 6.4 10^3/ul (1.5-7.7); ABS Nucleated RBC 0 10^3/ul; Eosinophil % 1.6 % (0-6); Hematocrit 37 % (35-47); Hemoglobin 12.8 g/dl (12.0-16.0); Lymphocyte % 26.1 % (25-47); Mean Corpuscular HGB Conc 35 g/dl (31-36); Mean Corpuscular Hemoglobin 31 pg (27-31); Mean Corpuscular Volume 88 fL (80-97); Mean Platelet Volume 8.9 um3 (7.4-10.4); Nucleated Red Blood Cells % 0.4; Platelet Count 233 10^3/ul (150-450); Red Blood Count 4.17 10^6/ul (4.00-5.40); Red Cell Distribution Width 14 % (10.5-15); White Blood Count 9.8 10^3/ul (3.5-10.8)
[2018-05-25 23:56] LABS: INR 0.83 (0.77-1.02)
[2018-05-25 23:58] LABS: EGFR Non-African American 48.2 (>60)
--- NOTE | 2018-05-26 00:02 | ED ---
HPI Chest Pain - HPI Summary HPI Summary: This is scribe Larry Chicas documenting for attending Dr. Anna Mccray MD. A 53 y/o female presents to ED s/p referred from [facility] for further evaluation of chest pain brought on by GERD. As per triage, "Pt sent from [facility] for further evaluation for heartburn. Pt sent d/t abnormal EKG. Pt was extensive cardiac hx ". According to the patient, she exhibited intermittent burning chest pain for the past 3 days reaching 4/10 in severity. She stated that the pain she is experiencing is nothing like her NE. She noted that the symptoms sometimes subside with TUMS. Pt denies any vomiting, however, has nausea. PMHx of 3 [address] 4 [address]ends previous to double bypass (07/2017). No more stents after bypass. Additionally, aortic valve replacement with cow, ECHO and cholecystectomy. Currently on Lasix and Rantidine. - History of Current Complaint Chief Complaint: EDChestPainROMI Time Seen by Provider: 05/25/18 22:49 Hx Obtained From: Patient Onset/Duration: Started Days Ago, Still Present Timing: Intermittent Initial Severity: Moderate Current Severity: Moderate Pain Intensity: 4 Pain Scale Used: 0-10 Numeric Chest Pain Radiates: No Character: Burning Aggravating Factor(s): Nothing Alleviating Factor(s): Other: - TUMS sometimes. Associated Signs and Symptoms: Positive: Chest Pain, Nausea. Negative: Vomiting - Additional Pertinent History Primary Care Physician: [id number] - Allergy/Home Medications Allergies/Adverse Reactions: Allergies Allergy/AdvReac Type Severity Reaction Status Date / Time levofloxacin [From Levaquin] Allergy Nausea And Verified 02/21/18 15:36 Vomiting ondansetron Allergy Hives Verified 02/21/18 15:36 [From Zofran (as hydrochloride)] PMH/Surg Hx/FS Hx/Imm Hx Endocrine/Hematology History: Reports: Hx Anticoagulant Therapy, Hx Diabetes, Hx Anemia Cardiovascular History: Reports: Hx Angina, Hx Angioplasty, Hx Congestive Heart Failure, Hx Coronary Artery Disease, Hx Hypercholesterolemia, Hx Hypertension, Hx Peripheral Vascular Disease, Hx Valvular Heart Disease Denies: Hx Pacemaker/ICD, Other Cardiovascular Problems/Disorders Respiratory History: Reports: Hx Chronic Obstructive Pulmonary Disease (COPD) Musculoskeletal History: Reports: Hx Arthritis - general Sensory History: Reports: Hx Contacts or Glasses Denies: Hx Hearing Aid Opthamlomology History: Reports: Hx Contacts or Glasses Neurological History: Reports: Hx Transient Ischemic Attacks (TIA) - 2015 Psychiatric History: Denies: Hx Panic Disorder - Surgical History Surgery Procedure, Year, and Place: Complete Hysterectomy 2005; [facility]; HEART CATH- 4 CARDIAC STENTS, CABG, MVR Infectious Disease History: No Infectious Disease History: Denies: Traveled Outside the [place] in Last 30 Days - Family History Known Family History: Positive: Cardiac Disease - Social History Alcohol Use: Occasionally Substance Use Type: Reports: Prescribed Smoking Status (MU): Former Smoker Have You Smoked in the Last Year: No Review of Systems Negative: Fever Positive: Chest Pain, Other Positive: Nausea. Negative: Vomiting All Other Systems Reviewed And Are Negative: Yes Physical Exam - Summary Physical Exam Summary: VITAL SIGNS: Reviewed. GENERAL: Patient is a well-developed and nourished female who is lying comfortable in the stretcher. Patient is not in any acute respiratory distress. Normal exam. HEAD AND FACE: No signs of trauma. No ecchymosis, hematomas or skull depressions. No sinus tenderness. EYES: PERRLA, EOMI x 2, No injected conjunctiva, no nystagmus. EARS: Hearing grossly intact. Ear canals and tympanic membranes are within normal limits. MOUTH: Oropharynx within normal limits. NECK: Supple, trachea is midline, no adenopathy, no JVD, no carotid bruit, no c- spine tenderness, neck with full ROM. CHEST: Symmetric, no tenderness at palpation LUNGS: Clear to auscultation bilaterally. No wheezing or crackles. CVS: Regular rate and rhythm, S1 and S2 present, no murmurs or gallops appreciated. ABDOMEN: Soft, non-tender. No signs of distention. No rebound no guarding, and no masses palpated. Bowel sounds are normal. EXTREMITIES: FROM in all major joints, no edema, no cyanosis or clubbing. NEURO: Alert and oriented x 3. No acute neurological deficits. Speech is normal and follows commands. SKIN: Dry and warm Triage Information Reviewed: Yes Vital Signs On Initial Exam: Initial Vitals Temp Pulse Resp BP Pulse Ox 97.8 F 98 18 100/66 99 05/25/18 22:27 05/25/18 22:27 05/25/18 22:27 05/25/18 22:27 05/25/18 22:27 Vital Signs Reviewed: Yes Diagnostics - Vital Signs Vital Signs Temp Pulse Resp BP Pulse Ox 05/25/18 22:55 90 15 97 05/25/18 22:27 97.8 F 98 18 100/66 99 - Laboratory Lab Results: Lab Results 05/25/18 05/25/18 05/25/18 Range/Units 23:29 23:29 23:29 WBC 9.8 (3.5-10.8) 10^3/ul RBC 4.17 (4.00-5.40) 10^6/ul Hgb 12.8 (12.0-16.0) g/dl Hct 37 (35-47) % MCV 88 (80-97) fL MCH 31 (27-31) pg MCHC 35 (31-36) g/dl RDW 14 (10.5-15) % Plt Count 233 (150-450) 10^3/ul MPV 8.9 (7.4-10.4) um3 Neut % (Auto) 65.2 (38-83) % Lymph % (Auto) 26.1 (25-47) % [place] % (Auto) 6.4 (0-7) % Eos % (Auto) 1.6 (0-6) % Baso % (Auto) 0.7 (0-2) % Absolute Neuts (auto) 6.4 (1.5-7.7) 10^3/ul Absolute Lymphs (auto) 2.6 (1.0-4.8) 10^3/ul Absolute Monos (auto) 0.6 (0-0.8) 10^3/ul Absolute Eos (auto) 0.2 (0-0.6) 10^3/ul Absolute Basos (auto) 0.1 (0-0.2) 10^3/ul Absolute Nucleated RBC 0 10^3/ul Nucleated RBC % 0.4 INR (Anticoag Therapy) 0.83 (0.77-1.02) APTT 26.3 (26.0-36.3) seconds Sodium 139 (135-145) mmol/L Potassium 4.1 (3.5-5.0) mmol/L Chloride 102 (101-111) mmol/L Carbon Dioxide 27 (22-32) mmol/L Anion Gap 10 (2-11) mmol/L BUN 38 H (6-24) mg/dL Creatinine 1.17 H (0.51-0.95) mg/dL Est GFR ( Amer) 58.3 (>60) Est GFR (Non-Af Amer) 48.2 (>60) BUN/Creatinine Ratio 32.5 H (8-20) Glucose 124 H (70-100) mg/dL Calcium 10.6 H (8.6-10.3) mg/dL Magnesium 2.0 (1.9-2.7) mg/dL Total Bilirubin 0.40 (0.2-1.0) mg/dL AST 15 (13-39) U/L ALT 16 (7-52) U/L Alkaline Phosphatase 177 H (34-104) U/L Total Creatine Kinase 61 (10-223) U/L Troponin I Pending Total Protein 7.3 (6.4-8.9) g/dL Albumin 3.8 (3.2-5.2) g/dL Globulin 3.5 (2-4) g/dL Albumin/Globulin Ratio 1.1 (1-3) Amylase 27 L (29-103) U/L Lipase 27 (11.0-82.0) U/L Result Diagrams: 05/25/18 23:29 05/25/18 23:29 Lab Statement: Any lab studies that have been ordered have been reviewed, and results considered in the medical decision making process. - Radiology CXR Radiology Interpretation Completed By: ED Physician - No acute process. Pending official report. - EKG 2250 Cardiac Rate: NL - 95 BPM EKG Rhythm: Sinus Bradycardia EKG Interpretation: RBBB. Normal axis. Chest Pain Course/Dx - Course Course Of Treatment: A 53 y/o female presents to ED s/p referred from [facility] for further evaluation of chest pain brought on by GERD. A CXR revealed no acute process. A EKG revealed a rate of 95 BPM, RBBB, normal axis. In the ED course, the patient recieved Maalox, Aspirin, Xylocaine, Protonix and IV fluids. Patient care was discused with Dr. Messina who accepts patient for admission. Patient will be admitted with a diagnosis of Epigastric pain, dehydration and elevated troponin. Pt is agreeable with this plan. - Diagnoses Provider Diagnoses: Elevated troponin, Dehydration, Epigastric pain - Provider Notifications Discussed Care Of Patient With: Ailin Rooth Time Discussed With Above Provider: 00:29 Instructed by Provider To: Other - Accepts patient for admission. Discharge - Sign-Out/Discharge Documenting (check all that apply): Patient Departure - ADMIT - Discharge Plan Condition: Stable Disposition: ADMITTED TO [facility] Referrals: Jamaal Garcia DO [Primary Care Provider] -
[2018-05-26] MEDS ORDERED: Aspirin 81 mg CHEW TAB* 81 MG TAB.CHEW PO ONE (00:04)
[2018-05-26] MEDS ORDERED: NS 0.9% 1000 ML* 1,000 ML IV SCH ×2 (00:30→01:00)
[2018-05-26] MEDS ORDERED: Ondansetron INJ* 2 MG/ML VIAL IV PRN (01:00)
[2018-05-26] MEDS ORDERED: Magnesium Hydroxide LIQ* 30 ML UDC PO PRN (01:00)
[2018-05-26] MEDS ORDERED: Docusate CAP* 100 MG PO PRN (01:00)
[2018-05-26] MEDS ORDERED: Senna TAB PO PRN (01:00)
[2018-05-26] MEDS ORDERED: Acetaminophen TAB* 325 MG PO PRN (01:00)
[2018-05-26] MEDS ORDERED: Dextrose 50% Syringe 50 ML* 25 GM/50 ML SYRINGE IV PUSH PRN (01:06)
[2018-05-26] MEDS ORDERED: Gabapentin CAP(*) 300 MG PO PRN (01:08)
[2018-05-26] MEDS ORDERED: Calcium Carbonate CHEW TAB* 500 MG (TUMS) PO PRN (01:08)
[2018-05-26] MEDS ORDERED: Heparin DRIP 25,000 UNITS(*) 25,000 UNITS/500 ML BAG IV SCH (01:15)
[2018-05-26] MEDS ORDERED: Albuterol HFA INHALER* 8 gm MDI INH PRN (01:50)
[2018-05-26] MEDS ORDERED: Heparin VIAL(*) 5000 UNITS/ML VIAL (FIVE THOUSAND) IV SCH (02:00)
--- NOTE | 2018-05-26 05:49 | HP ---
CC: Jamaal Garcia DO; Tomas Grimaldo MD * HISTORY AND PHYSICAL: DATE OF ADMISSION: 05/26/18 TIME OF EVALUATION: 0100. PRIMARY CARE PHYSICIAN: Jamaal Garcia DO CHIEF COMPLAINT: Chest pain, indigestion. HISTORY OF PRESENT ILLNESS: This is a 53-year-old female with past medical history of coronary artery disease and peripheral vascular disease, who presented to the emergency room from Urgent Care for heartburn for the past 3 days. The patient states 3 days ago, her heartburn started, worse with eating and drinking, TUMS has helped. She has had associated nausea, but no shortness of breath, no diaphoresis. She went to Urgent Care for her symptoms, there was concern with her cardiac history and brought her to the emergency room for further evaluation. On evaluation in the emergency room, she is known to have an elevated troponin which prompted her admission to the hospital. The patient denies any recent URI symptoms, no weight changes, no medication changes. She states she had a stress test about 2 weeks [address] Grimaldo that was unremarkable. She denies any changes in her lower extremity swelling. She states she has chronically swollen feet, no abdominal pain, no active diarrhea or constipation. She states her diabetes is poorly controlled. Otherwise, review of systems is negative. In the emergency room, the patient had labs, imaging. She was given 40 of IV Protonix, lidocaine, aspirin 324 mg and Maalox and referred to the hospitalist service for further evaluation. On my encounter, the patient is chest pain free. PAST MEDICAL HISTORY: 1. History of coronary artery disease status post PCI with 4 stents and coronary artery bypass graft in July 2017. 2. History of mitral valve replacement in July 2017. 3. Peripheral vascular disease with recent stenting done in January 2018. 4. GERD. 5. Hyperlipidemia. 6. Cardiomyopathy with ejection fraction of 40%. 7. Diabetes with neuropathy. MEDICATIONS: The patient gave me a list, but this is not a thorough list, as she can't remember them all. 1. Ranitidine 300 mg p.o. at bedtime. 2. Spironolactone 25 mg p.o. daily. 3. Tradjenta 5 mg p.o. daily. 4. Humalog 15 units before meals. 5. Lantus 40 units subcu b.i.d. 6. Gabapentin 300 mg daily. 7. Lasix 40 mg daily as needed. 8. Colace 1 tab p.o. b.i.d. as needed. 9. Plavix 75 mg daily. 10. Calcium carbonate 200 mg every 4 hours as needed. 11. Atorvastatin 80 mg daily. 12. Aspirin 81 mg daily. ALLERGIES: LEVOFLOXACIN and ZOFRAN. FAMILY HISTORY: Mother at age 72 from complications from her bypass surgery and father from cancer, diabetes, and coronary artery disease. SOCIAL HISTORY: The patient lives at home with her , who is her healthcare proxy. She quit smoking a year ago. She was on 2 pack per day for 40 years, rare alcohol use, no illicit drug use. She is unemployed. Code status is full code. REVIEW OF SYSTEMS: A 14-point review of systems is mentioned in the HPI, otherwise negative. PHYSICAL EXAMINATION GENERAL: No acute distress. Resting comfortably with her at the bedside. VITAL SIGNS: Temp is 97.8, pulse rate 90, respiratory rate 15, oxygen saturation 97% on room air. HEENT: Head: Normocephalic. Pupils are equal and reactive. Anicteric. Oropharynx: Mucous membranes are moist. NECK: Supple. No lymphadenopathy. No nuchal rigidity. RESPIRATORY: Diminished breath sounds, scattered, faint, intermittent expiratory wheezing. CARDIAC: Regular rate and rhythm with soft systolic murmur most pronounced at the right sternal base. ABDOMEN: Soft, nontender, nondistended. EXTREMITIES: Positive pedal edema. NEUROLOGIC: Alert and oriented x3. No gross focal neurologic deficits. DIAGNOSTIC STUDIES/LAB DATA: White count 9.8, hemoglobin 12.8, hematocrit 37, platelets 233. INR 0.83. Sodium 139, potassium 4.1, chloride 102, bicarb 27, BUN 38, creatinine 1.17, glucose 124, lactic acid 2.6. Troponin is 0.07, BNP 139. RADIOGRAPHIC DATA: EKG shows normal sinus rhythm with a right bundle-branch block, which appears new from her prior EKGs. Chest x-ray, no significant findings. ASSESSMENT: This is a 53-year-old female with past medical history of coronary artery disease, peripheral vascular disease, who presents to the emergency room from Urgent Care for indigestion, found to have an elevated troponin. 1. Indigestion. Assessment: We are concerned about acute coronary syndrome in this patient with her history and elevated troponin, this could either be non-ST- elevation myocardial infarction versus unstable angina equivalent. Currently, she is pain free. Plan, we will admit her to [facility]. We will place her on a heparin drip for unstable angina. Continue to trend her troponin, check her lipid panel. It does not appear that she is on a beta maria victoria. I discussed with her I am not sure why Cardiology has not, I am guessing from her respiratory history and heavy smoking history where she may have had adverse reaction. We will hold off on giving her beta maria victoria at this time, following up with Cardiology recommendations in the morning. She did have a stress test 2 weeks ago, we will hold off on ordering that. We will keep her n.p.o. in case they want to take her to the [facility] and order an echocardiogram as well. We will continue on her aspirin and her Plavix. 2. Chronic medical problems. Gastroesophageal reflux disease. Place her on omeprazole in place of ranitidine. 3. Coronary artery disease. As above. We will hold her spironolactone and her Lasix in the setting of being n.p.o. and elevated lactate and a slight bump in her creatinine. 4. Hyperlipidemia. Continue atorvastatin. 5. Diabetes. The patient states they are poorly controlled. We will check a hemoglobin A1c. Continue her Lantus, Humalog, lispro. 6. FEN. The patient currently n.p.o. 7. DVT prophylaxis. The patient scores moderate risk. She is on heparin drip. 8. Code status. Full code. PATIENT TIME: Greater than 45 minutes were spent doing the history and physical , more than half of the time was spent in direct patient contact. [id number]/[facility] #: [id number] TUCKER
[2018-05-26] MEDS ORDERED: CMCS Pantoprazole TAB (NF) 40 MG TAB PO SCH (06:00)
[2018-05-26] MEDS ORDERED: Heparin VIAL(*) 5000 UNITS/ML VIAL (FIVE THOUSAND) SUBCUT SCH (06:00)
[2018-05-26 07:12] LABS: EGFR Non-African American 51.2 (>60)
--- NOTE | 2018-05-26 07:29 | RAD ---
INDICATION: Epigastric pain COMPARISON: Chest x-ray dated July 27, 2017 TECHNIQUE: Single AP portable view of the chest was obtained. FINDINGS: Image quality is compromised due to the relative inferiority of a portable chest x-ray. There has been interval appearance of sternotomy wires and surgical clips overlying the left upper mediastinum. The heart and mediastinum exhibit normal size and contour. The lungs are grossly clear. There is no evidence of a large pleural effusion. Visualized bones are normal for the patient's age. IMPRESSION: No radiographic evidence for acute cardiopulmonary abnormality on this portable chest x-ray. R0
[2018-05-26] MEDS: Insulin LISPRO* 1 UNITS UNIT SUBCUT SCH ×2 (08:28→12:29)
[2018-05-26] MEDS ORDERED: Insulin GLARGINE(*) 1 UNITS UNIT SUBCUT ONE (09:00)
[2018-05-26] MEDS ORDERED: Aspirin EC TAB* 81 MG TAB.EC PO SCH (09:00)
[2018-05-26] MEDS ORDERED: Clopidogrel TAB* 75 MG PO SCH (09:00)
[2018-05-26] MEDS ORDERED: Atorvastatin* 80 MG TAB PO SCH (09:00)
[2018-05-26] MEDS ORDERED: Perflutren Lipid Microsphere* 3 ML VIAL ONE (09:27)
--- NOTE | 2018-05-26 11:05 | ECHO ---
Patient: GABRIEL ZAVALA [facility] Rec#: [id number] : 1965 Date: 05/26/2018 Age: 53y Height: 163 cm / 64.2 in Weight: 79.8 kg / 175.9 lbs Sex: F BSA: 1.86 Room#: [facility] Admit Date#: 05/26/2018 Type: Inpatient Referring: Ailin Messina Reading: Naga Molina MD [place] Pot[facility] CC: Radha LIN,Jamaal Transthoracic Echocardiogram Indication: Chest pain BP: 103/74 HR: 80 Rhythm: NSR Findings History: CAD, PCI, s/p CABG, 08/10 bioprosthetic MVR, DM, PVD, COPD, former smoker, HLD, cardiomyopathy EF 40%. Technical Comments: The study is technically limited due to patient body habitus. Completed at 1030. Left Ventricle: The left ventricular chamber size is normal. Mild concentric left ventricular hypertrophy is observed. There is mildly decreased left ventricular systolic function. The estimated ejection fraction is 40-45%. Closer to 40% with inferior/posterior/lateral wall hypokinesis. Post surgical hypokinesis of the interventricular septum is observed consistent with coronary artery bypass. Abnormal left ventricular diastolic function is observed. The left ventricular diastolic filling pattern is consistent with pseudonormalization. Left Atrium: The left atrium is mildly dilated. Right Ventricle: The right ventricle is mildly dilated. The right ventricular global systolic function is mildly to moderately reduced. Right Atrium: The right atrium is mildly dilated. Aortic Valve: The aortic valve is trileaflet. The aortic valve leaflets are mildly thickened. There is no evidence of aortic regurgitation. There is no evidence of aortic stenosis. Mitral Valve: A bioprosthetic mitral valve is present. The bioprosthetic mitral valve appears to be functioning normally. Tricuspid Valve: The tricuspid valve leaflets are normal. There is trace tricuspid regurgitation. Unable to estimate the right ventricular systolic pressure. There is no tricuspid stenosis. Pulmonic Valve: The pulmonic valve appears normal. There is a trace pulmonic regurgitation. There is no pulmonic stenosis. Pericardium: There is no significant pericardial effusion. A pericardial fat pad is visualized. Aorta: There is no dilatation of the ascending aorta. There is no dilatation of the aortic arch. The aortic root is normal in size. Pulmonary Artery: The main pulmonary artery is not well visualized. Venous: The inferior vena cava appears normal in size. There is a greater than 50% respiratory change in the inferior vena cava dimension. Contrast: Definity was used to optimize study. 4 mL of diluted Definity was utilized. Intravenous contrast was used to enhance endocardial border definition. Summary: There are changes noted when compared to the previous study done on 07/28/2017, MVR is new. LV EF still around 40%. Conclusions The left ventricular chamber size is normal. Mild concentric left ventricular hypertrophy is observed. The estimated ejection fraction is 40-45%. Closer to 40% with inferior/posterior/lateral wall hypokinesis. Post surgical hypokinesis of the interventricular septum is observed consistent with coronary artery bypass. Abnormal left ventricular diastolic function is observed. The left atrium is mildly dilated. A bioprosthetic mitral valve is present. The bioprosthetic mitral valve appears to be functioning normally. There is trace tricuspid regurgitation. Unable to estimate the right ventricular systolic pressure. Measurements Name Value Normal Range RVIDd (AP) 2D 2.6 cm (0.9 - 2.6) RVDdMajor (2D) 3.8 cm (2.2 - 4.4) RAd ISD 4CH 5.3 cm (3.4 - 4.9) RA (A4C)W 3.4 cm (2.9 - 4.6) IVSd (2D) 1.1 cm (0.6 - 1) LVPWd (2D) 1.1 cm (0.6 - 1) LVIDd (2D) 4 cm (3.6 - 5.4) LVIDs (2D) 3.5 cm - LV FS (2D) 13 % (25 - 45) Aortic Annulus 1.9 cm (1.4 - 2.6) Ao root diameter (2D) 2.6 cm (2.1 - 3.5) Ascending Ao 2.5 cm (2.1 - 3.4) Aortic arch 2.8 cm (1.8 - 3.4) LA dimension (AP) 2D 4.3 cm (2.3 - 3.8) LAd ISD 4CH 4.8 cm (2.9 - 5.3) LA ISD 4CH W 4.3 cm (2.5 - 4.5) Name Value Normal Range LA ESV BP (A/L) index 21 ml/m2 - Name Value Normal Range MV E-wave Vmax 1.4 m/sec - MV deceleration time 208 msec - MV A-wave Vmax 0.9 m/sec - MV E:A ratio 1.4 ratio - LV septal e' Vmax 0.04 m/sec - LV lateral e' Vmax 0.04 m/sec - LV E:e' septal ratio 35 ratio - LV E:e' lateral ratio 35 ratio - Name Value Normal Range AV Vmax 1.5 m/sec - AV VTI 24.6 cm - AV peak gradient 9 mmHg - AV mean gradient 4 mmHg - LVOT Vmax 0.9 m/sec - LVOT VTI 14.6 cm - LVOT peak gradient 3 mmHg - LVOT mean gradient 2 mmHg - JOSE M Vmax 1 m/sec - Name Value Normal Range MV Vmax 1.7 m/sec - MV VTI 39.9 cm - MV peak gradient 12 mmHg - MV mean gradient 5 mmHg - MV annulus VTI 74 cm - MVA (PHT) 3 cm2 - Name Value Normal Range IVC diameter 1.6 cm - Name Value Normal Range PV Vmax 0.8 m/sec - PV peak gradient 2 mmHg -
[2018-05-26 12:38] VITALS: BP 98/51
[2018-05-26] MEDS ORDERED: Insulin GLARGINE(*) 1 UNITS UNIT SUBCUT SCH (21:00)
--- NOTE | 2018-05-26 21:39 | CONS ---
CC: Hospitalist Service; Dr. Grimaldo; Dr. Molina; Dr. Garcia CARDIOLOGY CONSULT: DATE OF CONSULT: 05/26/18 CARPENTRY SPECIALIST: Dr. Grimaldo. HISTORY OF PRESENT ILLNESS: I was asked by the hospitalist service to see this 53- year-old female who does have extensive cardiac history including coronary artery disease, mitral valve replacement, presented with atypical symptoms of indigestion, possible lower chest pain and the troponin peaked at 0.07. Cardiology consult was further requested. I have discussed this patient with Dr. Grimaldo via phone as well as with the hospitalist service as well as I talked to the patient at length. The patient does have known history of extensive coronary artery disease. Her cardiac cath in July 2017 was done at [facility] and included at that time severe in-stent restenosis in the proximal stent that supplies a large left dominant system of the left circ, known chronic total occlusion of a nondominant RCA, severe mitral insufficiency, severe pulmonary hypertension at that point. She underwent CABG with TOVAR to the LAD, saphenous venous graft to the marginal and bioprosthetic mitral valve replacement by Dr. Soto at [facility]. A month ago, she had atypical symptoms of some indigestion. She had a nuclear Myoview stress test done with Dr. Grimaldo as an outpatient that showed no ischemia. There is small sized moderate intensity inferolateral wall infarction without ischemia. EF about 40%, which is not new. The patient said she had some indigestion. She had history of ulcer disease and presented. Her troponin was 0.07 and the second and the third were 0.06. She is symptom-free since being in the hospital. She had EKG that showed sinus rhythm, right bundle branch block and old inferior wall WI which is not new, no ST-T changes suggestive of ischemia. She gives no fever, no chills, no nausea, no vomiting, no hematochezia, no skin rash, no abdominal pain , no syncope, no swelling in the lower extremities, no orthopnea is appreciated. PAST MEDICAL HISTORY: Extensive including history of systemic arterial hypertension; history of coronary artery disease, stents in the past, history of CABG as described above; history of old inferior wall myocardial infarction; history of diabetic retinopathy; hyperlipidemia; hypertension; cardiomyopathy; history of severe mitral insufficiency; history of severe peripheral vascular disease, status post intervention by Dr. Darby as well as Dr. Shaw more recently in January 2018; history of COPD; history of cataract removal bilaterally ; and history of cholecystectomy. Her echo from today showed EF about 40%. Her bioprosthetic mitral valve appears to be functioning normally. MEDICATIONS: Her medications as an outpatient are extensive includin. Losartan 50 mg daily. 2. Plavix 75 mg daily. 3. Ranitidine 300 mg daily. 4. Lasix 40 mg daily. 5. Lipitor 80 mg daily. 6. Lantus. 7. Tradjenta 5 mg daily. 8. Gabapentin 300 mg daily. 9. Aspirin 81 mg daily. 10. Coreg 3.125 mg twice a day. 11. Aldactone 25 mg daily. 12. Ventolin inhaler. ALLERGIES: She is allergic to LEVAQUIN and ZOFRAN. FAMILY HISTORY: Family history of coronary artery disease in her father with bypass and WI. Her mother has also coronary artery disease, CABG in the past. SOCIAL HISTORY: She is , lives with family. She is disabled since 2008. She used to smoke. She quit about 3 months ago. REVIEW OF SYSTEMS: Her review of all other systems essentially is negative. PHYSICAL EXAM: She is awake, alert, and oriented. She is free of symptoms at the present time. Vitals: Blood pressure 125/70, pulse 70 and sinus rhythm, she is afebrile. Head and Neck Exam: Normocephalic, atraumatic head. Ears, nose, and throat essentially benign. Neck: Supple. JVP is not elevated. No carotid bruits. No masses in the neck are appreciated. Chest: Clear to auscultation. No rales, no wheeze. No added sounds are appreciated. Heart: Normal, regular, S1, S2. No added sounds. No gallops, no rubs. Abdomen: Benign, soft. Positive bowel sounds. Extremities: No edema, no cyanosis, no clubbing. Skin exam is normal. Psych: Normal affect and mood. INDEPENDENT FILM MAKER: No focal deficits appreciated. DIAGNOSTIC STUDIES/LAB DATA: Sodium 135, potassium 4, chloride 103, total CO2 of 25, BUN 39, creatinine 1.1. She had hemoglobin A1c 11.5. Troponin 0.07, 0.06, 0.06. BNP 139. Triglycerides 170, cholesterol 81 total, LDL 18, HDL 29. White blood cell 9.8, hemoglobin 12.8, hematocrit 37, platelets 233. EKG as described above. Her chest x-ray was reported to have no acute disease. Her echo as described above, which was done today. IMPRESSION: The patient is a 53-year-old female patient with: 1. Presentation with atypical symptoms about a month ago as well as yesterday with indigestion, some lower chest pain of unclear etiology with a troponin minimal at 0.07 peak without EKG changes of ischemia. 2. Nuclear Myoview stress test done a month ago showed no ischemia with a small size moderate intensity inferolateral infarct, which is old. 3. Known history of coronary artery disease with stents in the past, most recent CABG TOVAR to the LAD, saphenous venous graft to the marginal July 2017 at [facility]. 4. At the time same time of her CABG, she had mitral valve replacement bioprosthetic for severe mitral insufficiency. 5. Diabetes mellitus with retinopathy. 6. Systemic arterial hypertension. 7. Long years of tobacco consumption. 8. Known history of peripheral arterial disease with multiple interventions, most recently with Dr. Shaw, January 2018. 9. Family history of coronary artery disease. 10. Right bundle branch block. 11. Old inferior wall myocardial infarction. 12. Cardiomyopathy with an EF of about 40%, which is stable. PLAN: The patient is currently hemodynamically stable. She is not in congestive heart failure. She has no angina. Her troponins already peaked at 0.07, which is minimal. She is chest pain-free. She had no EKG changes suggestive of ischemia. After my lengthy discussion with her and the hospitalist , she wants to go home. She understands if she had recurrent symptoms, she needs to come to the emergency room in the hospital. She wants to discuss all of this with her primary webfed offset press operator as an outpatient, Dr. Tomas Grimaldo. Her nuclear a month ago showed no ischemia and showed her inferior wall WI. Her echo, which was just done today, is stable compared to the last echo. I discussed this with the hospitalist service. At the present time, I recommend her to avoid vigorous exertional activity. She is to monitor herself very closely for any symptoms of chest pain or shortness of breath and she is to come to the emergency room if needed. She is to follow up with her primary webfed offset press operator, Dr. Grimaldo, as an outpatient for further recommendations if needed. She is to continue on her medications, especially her aspirin, statins , Plavix as well as her beta-maria victoria treatment. I answered all her concerns and questions up to her satisfaction. TIME SPENT: More than half of at least 60 to 65 plus minutes was [id number] in the education, counseling mode, explaining all of the above, further discussions, making further recommendations. [id number]/[facility] #: [id number] TUCKER
--- NOTE | 2018-05-27 13:16 | DS ---
CC: Dr. Jamaal Garcia * DISCHARGE SUMMARY: DATE OF ADMISSION: 05/26/18 DATE OF DISCHARGE: 05/26/18 PRIMARY CARE PROVIDER: Dr. Jamaal Garcia. MY ATTENDING WHILE IN THE HOSPITAL: Dr. Jennifer Garcia.* (DICTATED BY MADDIE JAIVER) PRIMARY DISCHARGE DIAGNOSES: 1. Chest pain, likely gastric in origin. 2. Elevated troponin. SECONDARY DISCHARGE DIAGNOSES: 1. Coronary artery disease, status post percutaneous coronary intervention with 4 stents and coronary artery bypass graft in July 2017. 2. Mitral valve replacement in July 2017. 3. Peripheral vascular disease with recent stenting done in January 2018. 4. Gastroesophageal reflux disease. 5. Hyperlipidemia. 6. Cardiomyopathy with ejection fraction of 40%. 7. Diabetes with neuropathy. 8. Chronic kidney disease, stage 3A. STUDIES DONE WHILE IN THE HOSPITAL: Electrocardiogram from 05/25/18 shows normal sinus rhythm, right bundle branch block, probable left atrial enlargement rate of 96, QTc of 487. Repeat EKG from 05/25/18 shows no significant changes, rate 94, QTc of 475. Repeat EKG from 05/26/18 shows no significant changes, rate of 85, QTc of 497. Chest x-ray from 05/26/18 read as no radiographic evidence for acute cardiopulmonary abnormality in this portable chest x-ray. Transthoracic echocardiogram from 05/26/18 read as left ventricular chamber size normal, mild concentric left ventricular hypertrophy is observed. Estimated ejection fraction 40% to 45%. Post surgical hypokinesis of the interventricular septum is observed consistent with coronary artery bypass graft. Abnormal left ventricular diastolic function is observed. Left atrium is mildly dilated. Bioprosthetic mitral valve is present. This bioprosthetic mitral valve appears to be functioning normally. There is trace mitral regurgitation, unable to estimate left ventricular systolic pressure. MEDICATIONS AT DISCHARGE: 1. Docusate 1 tab p.o. daily as needed. 2. Insulin lispro 15 units subcutaneous t.i.d. with meals. 3. Ranitidine 300 mg p.o. at bedtime. 4. Gabapentin 300 mg p.o. daily as needed. 5. Aspirin 81 mg p.o. daily. 6. Furosemide 40 mg p.o. daily. 7. Trajenta 5 mg p.o. daily. 8. Glargine 40 units subcutaneous b.i.d. 9. Clopidogrel 75 mg p.o. daily. 10. Atorvastatin 80 mg p.o. daily. 11. Spironolactone 25 mg p.o. daily. 12. Calcium carbonate 200 mg p.o. q.4 hours. 13. Tylenol 650 mg p.o. q.4 hours as needed. 14. Pantoprazole 40 mg p.o. daily. New medications at discharge: 1. Tylenol. 2. Pantoprazole. Medications discontinued at discharge: None. HOSPITAL COURSE: This is a brief summary of the patient's presentation. For more details, please see the history and physical from Dr. Ailin Messina on 12/12. In brief, the patient is a 53-year-old female with past medical history significant for the above, who presented to the emergency department with heartburn for 3 days ago. The patient states that her heartburn started 3 days ago, worse with eating and drinking, responsive to ranitidine and Tums. She had an associated nausea but no other symptoms. She went to urgent care and was sent to the emergency department for further evaluation. The patient had no other symptoms. The patient had a stress test done [address] Grimaldo, which was unremarkable. The patient had no lower extremity swelling. No other illnesses. No other chest pain. The patient states it feels nothing like any of her heart attacks. The patient had a GI cocktail, which entirely resolved her chest pain. The patient's troponin was trended down, initially 0.07 and 0.06, 0.06. The patient had an elevated lactic acid of 2.6, which was repeated and was 1.9. The patient was persistently hyperglycemic while in the hospital and was found to have hemoglobin A1c of 11.5. The patient's LDL cholesterol was 18 and her HDL cholesterol of 29. The patient had a slightly elevated BNP. The patient was started on a heparin drip while in the hospital and had PTT within therapeutic range. Initially, the patient was seen in consultation by Dr. Naga Molina of Cardiology, who deemed this did not represent an acute coronary syndrome that the patient's chest pain was from indigestion. Her troponin was only mildly elevated and was trended down, there were no changes in her echocardiogram, and that there will be no utility on a repeat stress test given that she had one only 2 weeks ago. The consideration for an outpatient catheterization was deferred to her outpatient stone planer, Dr. Tomas Grimaldo, as the patient was very anxious to be discharged from the hospital and not want to stay another day for cardiac catheterization. The patient was stable and amenable for discharge on 05/26/18. PHYSICAL EXAMINATION ON THE DAY OF DISCHARGE: General: The patient is a 53- year- old female, who appears stated age and sitting comfortably in bed, in no acute distress. Vital Signs: Temperature 97.3, pulse rate 78, respiratory rate 16, oxygen saturation 100% on room air, blood pressure 98/51. HEENT: Head : Normocephalic, atraumatic. Sclerae anicteric. No conjunctival injection. Nasal mucosa is moist. Oral mucosa moist. No pharyngeal erythema, discharge, or exudate. Neck: Supple, nontender. No lymphadenopathy. No carotid bruit auscultated. No JVD. Cardiac: Regular rate and rhythm. No clicks, murmurs, gallops, or rubs. Pulses 2+ in the bilateral dorsalis pedis, posterior tibial, and radial areas. No bilateral calf tenderness or lower extremity edema noted. Respiratory: Clear to auscultation bilaterally. No wheezes, rales, or rhonchi. Good air exchange bilaterally. Abdomen: Soft, nontender, nondistended. Bowel sounds present, normoactive in all 4 quadrants. No hepatosplenomegaly. No abdominal bruit auscultated. No hepatojugular reflux. Genitourinary: No suprapubic or CVA tenderness. Skin: Clean, dry, and intact. No rash. Psychiatric: Pleasant, cooperative. Neuro: Cranial nerves II through XII intact. No focal deficits. Oriented x3. DISCHARGE PLAN: The patient will be discharged to home. The patient will be started on pantoprazole for her abdominal pain. There should be consideration for gastroenterological evaluation due to severity of the patient's pain and her cardiac history for better control of her reflux. The patient should follow up with her primary stone planer, Dr. Grimaldo, closely for monitoring of her coronary artery disease and the consideration for catheterization includes ongoing symptoms. The patient should return to the hospital for any alarming symptoms of chest pain, severe shortness of breath, intractable nausea and vomiting, syncope, or other alarming symptoms. The patient should follow up with her primary care provider within 1 week for general medical management and discuss her uncontrolled diabetes mellitus. The patient's lipid profile is stellar. The patient should have a consistent carbohydrate, heart-healthy diet without caffeine. The patient should engage in activity as tolerated. TIME SPENT: Approximately 60 minutes was spent on this discharge, 30 of which was spent [id number] with the patient obtaining physical and discussing treatment plan. MADDIE JAVIER [id number]/[facility] #: [id number] [place]
== END 2018-05-26 14:24 | disposition home or self-care (01) ==
LOC: ED 22:19 → MEDTELE 05-26 01:00
PROVIDERS: ADMIT Pediatrics; ATTEND Internal Medicine
DX: R07.9 Chest pain, unspecified (principal); R79.89 Other specified abnormal findings of blood chemistry; I25.10 Atherosclerotic heart disease of native coronary artery without angina pectoris; Z95.5 Presence of coronary angioplasty implant and graft; Z95.4 Presence of other heart-valve replacement; I73.9 Peripheral vascular disease, unspecified; K21.9 Gastro-esophageal reflux disease without esophagitis; E78.5 Hyperlipidemia, unspecified; I42.9 Cardiomyopathy, unspecified; E11.40 Type 2 diabetes mellitus with diabetic neuropathy, unspecified; Z79.4 Long term (current) use of insulin; N18.3 Chronic kidney disease, stage 3 (moderate); Z79.01 Long term (current) use of anticoagulants; Z79.82 Long term (current) use of aspirin; R10.13 Epigastric pain; I10 Essential (primary) hypertension; Z95.1 Presence of aortocoronary bypass graft; Z95.2 Presence of prosthetic heart valve; Z88.1 Allergy status to other antibiotic agents; Z88.8 Allergy status to other drugs, medicaments and biological substances; Z87.891 Personal history of nicotine dependence
CPT/HCPCS: 36415; 71045; 80048; 80053; 80061; 82150; 82550; 83036; 83605; 83690; 83735; 83880; 84484; 85025; 85610; 85730; 93005; 93306; 96374; 99284; A9270-GY; C8929; G0378; J1644

== ENCOUNTER 2018-07-22 18:18 | Emergency (ER) | payer MEDICARE ==
[2018-07-22] MEDS ORDERED: predniSONE TAB* 20 MG PO ONE (19:44)
[2018-07-22] MEDS ORDERED: Diazepam TAB(*) 5 MG PO ONE (19:44)
--- OUTSIDE RECORDS SUMMARY | 2018-07-22 20:17 | XMS REPORT ---
:1965 External Reference #:[id number] Author Organization [facility] Address [address] [place] [address] Phone [phone] Care Team Providers Name Role Phone HCP/LW on file Primary Care Physician Unavailable Payers Type Date Identification Numbers Payment Provider Subscriber Medicare Primary Policy Number: [id number] [facility] Gabriel Chavez Services PayID: [id number] [address] [place] [address] Problems Date Description Provider Status Onset: 01/26/2017 Type II diabetes mellitus uncontrolled Latia Monsalve PA Active Onset: 01/26/2017 Essential hypertension Latai Monsalve PA Active Onset: 01/26/2017 Tobacco user Latia Monsalve PA Active Onset: 01/26/2017 Ulcer of heel Latia Monsalve PA Active Onset: 07/21/2017 Parietoalveolar pneumopathy Latia Monsalve PA Active Onset: 10/07/2017 Type 2 diabetes mellitus Jamaal Garcia D.O. Active Onset: 10/07/2017 Long-term current use of insulin Jamaal Garcia D.O. Active Family History Date Family Member(s) Problem(s) Comments Father Rectal Cancer colostomy Father due to Anorexia () Nervosa : (age Father due to bowel small bowell 75 Years) infarction Father Heart Disease double bypass w mi x 1 - Father Smoker in past but not for 40 years Father Hypercholesterolemia Father Diabetes, NOS Father Alcoholism Father Hypertension Mother due to Lung Cancer () Mother Coronary Artery Disease (CAD) : (age Mother due to Lung Cancer cabg x 3 72 Years) Mother Diabetes, Nos borderline Mother Alcoholism Onset: (age 5 First Daughter osteosarcoma of the lower leg Years) First Daughter Bipolar Affective Disorder Social History Type Date Description Comments Lives With Spouse Lives With Daughter Valentino and her kids has no Lives With 11/30/2016 Friend benson Riley and family Work Status Disabled Social Security - for copd and card issues - went on it in 2008 Cigarette Use 03/19/2018 Former Cigarette Smoker quit Jul 2017 ETOH Use Denies alcohol use Recreational Drug Use Denies Drug Use Smoking 03/19/2018 Patient is a former smoker Daily Caffeine Consumes on average 4 cups of coffee per day Exercise Type/Frequency Exercises regularly Sun Exposure Does not use sunscreen Seat Belt/Car Seat Seat Belt Use - Yes Age 1st [place] 17 Years Old # [facility] [employer] [facility] 5-10 Allergies, Adverse Reactions, Alerts Date Description Reaction Status Severity Comments 01/18/2017 Zofran active hives 07/08/2017 Levaquin active vomiting Medications Medication Date Status Form Strength Qnty SIG Indications Ordering Provider Blairprietostefani Max 05/30 Active Solution 300Unit/M 60ml 120 units E11.69 Eliel Garcia Pen-Injec L injected once Jamaal, t daily increase D.O. by 2 u every 3 days if fasting glucose are > 110. Pantoprazole 05/26 Active Tablets 40mg 60tab 1 tablet by Radha Sodium DR edel wong twice Jamaal, daily D.O. Tylenol 05/26 Active Tablets 325mg give 2 tablets by mouth [id number] as needed / otc Freestyle Test 02/03 Active Strips 200un or appropriate [facility] for Jamaal, patient's D.O. machine. use 1-4 times daily as directed. Freestyle 28G 01/22 Active 200un Use as Radha Lancarcadio its Directed For Jamaal, Diabetic D.O. Testing 1-4 Times Day Clopidogrel 11/04 Active Tablets 75mg 1 tablet by Curry Grimaldoate mouth daily DO Tomas Lisinopril 10/06 Active Tablets 2.5mg 1 by mouth every day Atorvastatin 08/20 Active Tablets 80mg 1 by mouth Unknown every evening Docusate Sodium 08/20 Active Capsules 100mg 1 cap by mouth twice a day as needed for constipation Furosemide 08/20 Active Tablets 20mg 180ta Take Two Sopchak, /2017 bs Tablets By Jamaal, Mouth Every D.O. Day Spironolactone 08/05 Active Tablets 25mg 90tab Take One s Tablet By Jamaal, Mouth Every D.O. Morning For High Blood Pressure Carvedilol 08/05 Active Tablets 3.125mg 180ta Take One bs Tablet By Jamaal, Mouth Twice A D.O. Day Freestyle Lite 05/20 Active Device 1unit or any other E11.65 S[place]chak, Blood Glucose s covered Jamaal, Monitoring glucometer by D.O. System her insurance. Lancets 05/20 Active Misc 200un use as E11.65 its directed for Shady Hinton Safety diabetic D.O. testing BD Pen 05/20 Active Misc 31G X 5 400un or appropriate S[place], Needle/Mini/Ult mm its needles for Jamaalemil/31G X lantus pen. D.O. 01/07" use up to 6/day, as directed, for insulin administration Novolog Flexpen 04/29 Active Solution 100Unit/M 45ml 15 units E11.69 Pen-Injec L before each Jamaal, t meal or per D.O. sliding scale Gabapentin Active Capsules 300mg 90cap 1 by mouth S[place]chak, / s daily Jamaal, D.O. Aspirin Active 81mg 1 daily Unknown Children's Ranitidine HCL Active Capsules 300mg 90cap 1 by mouth S[place]chak, / s daily at Jamaal, bedtime D.O. Tradjenta Active Tablets 5mg 90tab Take One Sopchak, s Tablet By Jamaal, Mouth Every D.O. Day For Blood Sugar Control Amoxicillin 03/19 Hx Tablets 500mg 60tab 2 by mouth J01.90 Silcoff, s three times a Odell, - day for 10 M.D. 04/02 days for sinusitis; start this if not feeling better in a few days Freestyle Lite 02/03 Hx Strips use up to E11.65 [facility], [facility]-6x/day for Jamaal, - blood sugar D.O. 02/03 monitoring Amoxicillin 12/07 Hx Tablets 875mg 20tab 1 by mouth J01.90 Silcoff, s twice a day x Odell, - 10 days for M.D. 12/17 bacterial pharyngitis Fluconazole 12/07 Hx Tablets 150mg 2tabs 1 tabs by B37.9 Silcoff, mouth one time Odell, - a week for M.D. 12/21 yeast infection Basaglar 11/19 Hx Solution 100Unit/M 120ml inject 60 E11.69 [facility] [place] Pen-Injec L units 2 (two) Jamaal, - t times daily, D.O. 05/30 at same time /2017 every day; for blood sugar control; inc. by 2units every 3d if fbs > 110 Coumadin 09/06 Hx Tablets 1mg 200ta 1 - 5 tablets bs daily as Jamaal, - directed. D.O. 12/06 Breo 08/20 Hx as directed - 08/27 Breo Ellipta 08/20 Hx Aerosol 100-25mcg 1 puff into Unknown / lungs daily; - rinse mouth 12/06 out after use Lantus Solostar 08/20 Hx Solution 100Unit/M inject 40 Pen-Injec L units 2 (two) - t times daily, 11/19 at same time every day; for blood sugar control Ranexa 08/20 Hx Tablets 500mg 1 by mouth ER 12HR twice a day - 10/06 Coumadin 08/20 Hx Tablets 2mg 90tab take as s directed, take - 2 tablets by 12/06 mouth daily Lisinopril 08/05 Hx Tablets 2.5mg 1 by mouth every day - 08/20 Amoxicillin/Cla 07/21 Hx Tablets 875-125mg 20tab 1 tab by mouth J20.9 Silcoff, vulanat s twice a day Martha Bain - x10 days M.D. 07/31 Ventolin HFA 07/21 Hx Aerosol 108(90Bas 18uni Inhale Two J20.9 Silcoff, e) ts Puffs By Mouth Odell - mcg/Act Every 4 To 6 M.D. 04/10 Hours Needed For Shortness Of Breath J84.9 Losartan 07/09/2017 - Hx Tablets 50mg 90tabs take 1 tablet Sopchak, Potassium 08/20/2017 daily in the Jamaal, morning for D.O. diabetic kidney protection Furosemide 07/02/2017 - Hx Tablets 40mg 1 by mouth Unknown 08/20/2017 three times a week BD Insulin 05/20/2017 - Hx Misc 31G X 450units use with Sopchak, Syringe 05/20/2017" lantus and Jamaal, Ultrafine/U-100 1 ML humolog as D.O. /1ML/31G X directed 5 " times daily BD Insulin 05/20/2017 - Hx Misc 31G X 450units use with Sopchak, Syringe 05/20/2017" Novolog and Jamaal, Ultrafine/U-100 1 ML Lantus 5x D.O. /1ML/31G X daily as " directed daily Freestyle Lite 05/20/2017 - Hx Strip 400units test 1-6 times E11 Sopchak, Test 02/03/2018 daily .65 Clay Hinton Incruse Ellipta 05/19/2017 - Hx Aerosol 62.5mcg inhale 1 puff Unknown 12/06/2017 /Inh by mouth daily for chronic obstructive lung disease Amoxicillin 04/19/2017 - Hx Capsules 500mg 90caps Take One MacQueen, 05/19/2017 Capsule By Steven, Mouth Three MD Times A Day x 30 days Levaquin 03/16/2017 - Hx Tablets 500mg 7tabs 1 by mouth Unknown 03/23/2017 daily x 7 days Atorvastatin 02/18/2017 - Hx Tablets 40mg 30tabs 1 by mouth Dillan, Calcium 08/27/2017 every day for Tomas, DO high cholesterol Zyban 02/18/2017 - Hx Tablets ER 150mg 60tabs 1 tablet by Dillan, 08/20/2017 12HR mouth twice Tomas, DO daily Lantus Solostar 11/30/2015 - Hx Solution 100Unit 100ml 40 unit every Sopchak, 08/27/2017 Pen-Inject /ML night 36 units Jamaal, every 3 days D.O. increase morning lantus dose by 2 units until fasting glucose <110. mdd 100u/day Clopidogrel - Hx Tablets 75mg 90tabs 1 by mouth Radha Bisulfate 08/05/2017 every day Jamaal, D.O. Furosemide - Hx Tablets 20mg 90tabs take 1 tablet Jeison Elizabeth 07/08/2017 by mouth Klepack, daily. M.D. Ranexa - Hx Tablets ER 1000mg 180tabs 1 tablet twice Radha, 08/27/2017 12HR a day Jamaal, D.O. Fish Oil - Hx Capsules 1000mg ingest 4 pills Unknown 02/18/2017 daily Atenolol - Hx Tablets 100mg 90tabs take one Jeison Johnson 08/20/2017 tablet by Klepack, mouth at M.D. bedtime for high blood pressure Isosorbide - Hx Tablets ER 60mg 90tabs take 1 tablet Jeison A. Mononitrate ER 08/20/2017 24HR by mouth every Klepack, morning for M.D. angina Humalog - Hx Solution 100Unit 10ml 15 units [facility], 04/29/2017 /ML before each Jamaal, meal or per D.O. sliding scale Levofloxacin - Hx Tablets 500mg Take One Unknown 07/07/2017 Tablet By Mouth Every Day Immunizations CPT Code Status Date Vaccine Lot # [id number] Given 07/08/2017 Influenza Virus Vaccine, Quadrivalent, Split, [id number] Preservative Free 14173 Given 01/18/2017 Adacel or Boostrix, TDaP [id number] Given 11/30/2016 Influenza Virus Vaccine, Quadrivalent, Split, Im Use U-Pneum Given 01/18/2009 Pneumococcal,Unspecified Vital Signs Date Vital Result Comment 07/11/2018 BP Systolic 96 mmHg BP Diastolic 62 mmHg Body Temperature 97.8 F 05/30/2018 BP Systolic 106 mmHg BP Diastolic 68 mmHg Weight 179.00 lb 03/19/2018 BP Systolic 120 mmHg BP Diastolic 76 mmHg Body Temperature 97.5 F Weight 171.00 lb 02/02/2018 BP Systolic 102 mmHg BP Diastolic 62 mmHg Weight 177.00 lb with boots/jacket 12/07/2017 BP Systolic 112 mmHg BP Diastolic 68 mmHg Body Temperature 98.0 F Height 64 inches 5'4" Weight 160.00 lb BMI (Body Mass Index) 27.5 kg/m2 10/07/2017 BP Systolic 94 mmHg BP Diastolic 50 mmHg Weight 165.00 lb 08/30/2017 BP Systolic 100 mmHg BP Diastolic 60 mmHg Weight 164.00 lb with boots 08/06/2017 BP Systolic 98 mmHg BP Diastolic 62 mmHg Heart Rate 86 /min O2 % BldC Oximetry 93 % Weight 156.00 lb 07/21/2017 BP Systolic 124 mmHg BP Diastolic 71 mmHg Heart Rate 82 /min O2 % BldC Oximetry 98 % Body Temperature 98.1 F Weight 154.00 lb w/shoes 07/08/2017 BP Systolic 116 mmHg BP Diastolic 60 mmHg Weight 152.00 lb 05/20/2017 BP Systolic 138 mmHg BP Diastolic 74 mmHg Weight 157.00 lb 03/18/2017 BP Systolic 146 mmHg BP Diastolic 80 mmHg Body Temperature 97.8 F Weight 156.00 lb 01/26/2017 BP Systolic 110 mmHg BP Diastolic 60 mmHg Height 64.5 inches 5'4.50" with walking boot to lt foot/shoe to rt f Weight 155.00 lb with walking boot to lt foot/shoe to rt foot BMI (Body Mass Index) 26.2 kg/m2 01/18/2017 BP Systolic 110 mmHg BP Diastolic 70 mmHg Weight 154.00 lb with walking boot 11/30/2016 BP Systolic 110 mmHg BP Diastolic 56 mmHg Weight 157.00 lb Results Test Date Test Result H/L Range Note Laboratory test 07/03/2018 Throat Culture NORMAL THROAT FL 1, 2 finding Complete <SEE NOTE> Laboratory test 05/30/2018 Helico Pylori Negative Negative 3 finding Antigen- Stool CBC Auto Diff 05/25/2018 White Blood Count 9.8 10^3/uL 3.5-10.8 Red Blood Count 4.17 10^6/uL 4.00-5.40 Hemoglobin 12.8 g/dL 12.0-16.0 Hematocrit 37 % 35-47 Mean Corpuscular Volume 88 fL 80-97 Mean Corpuscular Hemoglobin 31 pg 27-31 Mean Corpuscular HGB Conc 35 g/dL 31-36 Red Cell Distribution Width 14 % 10.5-15 Platelet Count 233 10^3/uL 150-450 Mean Platelet Volume 8.9 um3 7.4-10.4 Abs Neutrophils 6.4 10^3/uL 1.5-7.7 Abs Lymphocytes 2.6 10^3/uL 1.0-4.8 Abs Monocytes 0.6 10^3/uL 0-0.8 Abs Eosinophils 0.2 10^3/uL 0-0.6 Abs Basophils 0.1 10^3/uL 0-0.2 Abs Nucleated RBC 0 10^3/uL Granulocyte % 65.2 % 38-83 Lymphocyte % 26.1 % 25-47 Monocyte % 6.4 % 0-7 Eosinophil % 1.6 % 0-6 Basophil % 0.7 % 0-2 Nucleated Red Blood Cells % 0.4 Inr/Protime 05/25/2018 Inr 0.83 0.77-1.02 Laboratory test finding 05/25/2018 Partial Thrombo Time 26.3 seconds 26.0 -36.3 PTT Comp Metabolic Panel 05/25/2018 Sodium 139 mmol/L 135-145 Potassium 4.1 mmol/L 3.5-5.0 Chloride 102 mmol/L 101-111 Co2 Carbon Dioxide 27 mmol/L 22-32 Anion Gap 10 mmol/L 2-11 Glucose 124 mg/dL High 70-100 Blood Urea Nitrogen 38 mg/dL High 6-24 Creatinine 1.17 mg/dL High 0.51-0.95 BUN/Creatinine Ratio 32.5 High 8-20 Calcium 10.6 mg/dL High 8.6-10.3 Total Protein 7.3 g/dL 6.4-8.9 Albumin 3.8 g/dL 3.2-5.2 Globulin 3.5 g/dL 2-4 Albumin/Globulin Ratio 1.1 1-3 Total Bilirubin 0.40 mg/dL 0.2-1.0 Alkaline Phosphatase 177 U/L High 34-104 Alt 16 U/L 7-52 Ast 15 U/L 13-39 Egfr Non- 48.2 >60 Egfr 58.3 >60 4 Laboratory test finding 05/25/2018 Magnesium 2.0 mg/dL 1.9-2.7 Amylase 27 U/L Low 29-103 Lipase 27 U/L 11.0-82.0 Creatine Kinase(CK) 61 U/L 10-223 Troponin-I (TnI) 0.07 ng/mL High <0.04 5 Lactic Acid 2.6 mmol/L High 0.5-2.0 6 B-Type Natriuretic Peptide BNP 139 pg/mL High 7 Rapid Influenza A & B 02/21/2018 Influenza A Molecular NEGATIVE Negative 8 Molecular Influenza B Molecular NEGATIVE Negative Laboratory test finding 02/21/2018 Point of Care Glucose 380 mg/dL High 70 -100 9 Laboratory test finding 02/02/2018 Hemoglobin A1c 11.5 Basic Metabolic Panel 02/01/2018 Sodium 134 mmol/L Low 139-145 Potassium 4.4 mmol/L 3.5-5.0 Chloride 99 mmol/L Low 101-111 Co2 Carbon Dioxide 29 mmol/L 22-32 Anion Gap 6 mmol/L 2-11 Glucose 298 mg/dL High 70-100 Blood Urea Nitrogen 22 mg/dL 6-24 Creatinine 0.84 mg/dL 0.51-0.95 BUN/Creatinine Ratio 26.2 High 8-20 Calcium 9.7 mg/dL 8.6-10.3 Egfr Non- 70.9 >60 Egfr 91.2 >60 10 CBC Auto Diff 02/01/2018 White Blood Count 7.6 10^3/uL 3.5-10.8 Red Blood Count 4.29 10^6/uL 4.0-5.4 Hemoglobin 12.9 g/dL 12.0-16.0 Hematocrit 37 % 35-47 Mean Corpuscular Volume 87 fL 80-97 Mean Corpuscular Hemoglobin 30 pg 27-31 Mean Corpuscular HGB Conc 35 g/dL 31-36 Red Cell Distribution Width 14 % 10.5-15 Platelet Count 199 10^3/uL 150-450 Mean Platelet Volume 8.5 um3 7.4-10.4 Abs Neutrophils 4.9 10^3/uL 1.5-7.7 Abs Lymphocytes 2.1 10^3/uL 1.0-4.8 Abs Monocytes 0.4 10^3/uL 0-0.8 Abs Eosinophils 0.1 10^3/uL 0-0.6 Abs Basophils 0 10^3/uL 0-0.2 Abs Nucleated RBC 0 10^3/uL Granulocyte % 64.5 % 38-83 Lymphocyte % 27.7 % 25-47 Monocyte % 5.5 % 0-7 Eosinophil % 1.7 % 0-6 Basophil % 0.6 % 0-2 Nucleated Red Blood Cells % 0.1 Laboratory test finding 12/07/2017 Culture Throat Rapid Screen negative Culture Throat negative Inr/Protime 11/03/2017 Inr 2.47 High 0.77-1.02 Inr/Protime 10/27/2017 Inr 1.90 High 0.77-1.02 Inr/Protime 10/20/2017 Inr 1.48 High 0.77-1.02 11 Laboratory test 10/12/2017 Wound SEE RESULT 12, 13 finding Culture/Sensi BELOW Inr/Protime 10/11/2017 Inr 1.28 High 0.77-1.02 14 Laboratory test 10/07/2017 Hemoglobin A1c 8.6 finding Basic Metabolic 10/04/2017 Sodium 138 mmol/L 133-145 Panel Potassium 4.6 mmol/L 3.5-5.0 Chloride 99 mmol/L Low 101-111 Co2 Carbon Dioxide 29 mmol/L 22-32 Anion Gap 10 mmol/L 2-11 Glucose 320 mg/dL High 70-100 Blood Urea Nitrogen 27 mg/dL High 6-24 Creatinine 1.01 mg/dL High 0.51-0.95 BUN/Creatinine Ratio 26.7 High 8-20 Calcium 9.7 mg/dL 8.6-10.3 Egfr Non- 57.3 >60 Egfr 73.7 >60 15 Inr/Protime 10/04/2017 Inr 1.89 High 0.77-1.02 16 Inr/Protime 09/27/2017 Inr 1.37 High 0.77-1.02 17 Inr/Protime 09/20/2017 Inr 4.08 High 0.89-1.11 Laboratory test 09/13/2017 Inr/Protime 3.11 High 0.89-1.11 finding Laboratory test 09/03/2017 Inr/Protime 1.86 High 0.89-1.11 finding Laboratory test 09/01/2017 Inr/Protime 1.63 High 0.89-1.11 finding Laboratory test 08/30/2017 Hemoglobin A1c 6.7 finding Laboratory test 08/30/2017 Inr/Protime 1.29 High 0.89-1.11 finding Laboratory test 08/23/2017 Inr/Protime 2.00 High 0.89-1.11 finding Laboratory test 07/27/2017 B-Type Natriuretic 447 pg/mL High 18 finding Peptide BNP CBC Auto Diff 07/27/2017 White Blood Count 17.9 10^3/uL High 3.5-10.8 Red Blood Count 4.90 10^6/uL 4.0-5.4 Hemoglobin 14.9 g/dL 12.0-16.0 Hematocrit 45 % 35-47 Mean Corpuscular Volume 91 fL 80-97 Mean Corpuscular Hemoglobin 31 pg 27-31 Mean Corpuscular HGB Conc 34 g/dL 31-36 Red Cell Distribution Width 15 % 10.5-15 Platelet Count 293 10^3/uL 150-450 Mean Platelet Volume 8 um3 7.4-10.4 Abs Neutrophils 15.7 10^3/uL High 1.5-7.7 Abs Lymphocytes 1.5 10^3/uL 1.0-4.8 Abs Monocytes 0.5 10^3/uL 0-0.8 Abs Eosinophils 0 10^3/uL 0-0.6 Abs Basophils 0.1 10^3/uL 0-0.2 Abs Nucleated RBC 0.01 10^3/uL Granulocyte % 88.2 % High 38-83 Lymphocyte % 8.2 % Low 25-47 Monocyte % 3.0 % 1-9 Eosinophil % 0.2 % 0-6 Basophil % 0.4 % 0-2 Nucleated Red Blood Cells % 0.1 Laboratory test finding 07/27/2017 Lactic Acid 2.6 mmol/L High 0.5-2.0 19 Comp Metabolic Panel 07/27/2017 Sodium 131 mmol/L Low 133-145 Potassium 4.7 mmol/L 3.5-5.0 Chloride 97 mmol/L Low 101-111 Co2 Carbon Dioxide 24 mmol/L 22-32 Anion Gap 10 mmol/L 2-11 Glucose 375 mg/dL High 70-100 Blood Urea Nitrogen 22 mg/dL 6-24 Creatinine 0.93 mg/dL 0.51-0.95 BUN/Creatinine Ratio 23.7 High 8-20 Calcium 9.3 mg/dL 8.6-10.3 Total Protein 7.6 g/dL 6.4-8.9 Albumin 3.7 g/dL 3.2-5.2 Globulin 3.9 g/dL 2-4 Albumin/Globulin Ratio 0.9 Low 1-3 Total Bilirubin 0.80 mg/dL 0.2-1.0 Alkaline Phosphatase 165 U/L High 34-104 Alt 44 U/L 7-52 Ast 200 U/L High 13-39 Egfr Non- 63.1 >60 Egfr 81.1 >60 20 CKMB 07/27/2017 CKMB ng/mL > 302.0 ng/mL High 0.6-6.3 Laboratory test finding 07/27/2017 Troponin-I (TnI) > 82.00 ng/mL High < 0.04 Creatine Kinase(CK) 2059 U/L High 10-223 Alcohol < 10 mg/dL <10 Basic Metabolic Panel 07/27/2017 Sodium 137 mmol/L 133-145 Potassium 4.1 mmol/L 3.5-5.0 Chloride 102 mmol/L 101-111 Co2 Carbon Dioxide 29 mmol/L 22-32 Anion Gap 6 mmol/L 2-11 Glucose 300 mg/dL High 70-100 Blood Urea Nitrogen 15 mg/dL 6-24 Creatinine 0.69 mg/dL 0.51-0.95 BUN/Creatinine Ratio 21.7 High 8-20 Calcium 8.9 mg/dL 8.6-10.3 Egfr Non- 89.0 >60 Egfr 114.5 >60 21 Urine Microalbumin Random 07/08/2017 Urine Creatinine 42.72 mg/dL Ur Microalbumin (mg/L) 435.3 mg/L Urine Microalbumin/Creatinine 1018.9 ug/mg High <31 Laboratory test finding 05/25/2017 B-Type Natriuretic 239 pg/mL High 22 Peptide BNP Laboratory test finding 05/25/2017 Point of Care Glucose 305 mg/dL High 70 -100 23 Basic Metabolic Panel 05/21/2017 Sodium 135 mmol/L 133-145 Potassium 3.7 mmol/L 3.5-5.0 Chloride 105 mmol/L 101-111 Co2 Carbon Dioxide 22 mmol/L 22-32 Anion Gap 8 mmol/L 2-11 Glucose 233 mg/dL High 70-100 Blood Urea Nitrogen 28 mg/dL High 6-24 Creatinine 0.87 mg/dL 0.51-0.95 BUN/Creatinine Ratio 32.2 High 8-20 Calcium 9.0 mg/dL 8.6-10.3 Egfr Non- 68.1 >60 Egfr 87.6 >60 24 CBC Auto Diff 05/21/2017 White Blood Count 6.8 10^3/uL 3.5-10.8 Red Blood Count 4.45 10^6/uL 4.0-5.4 Hemoglobin 13.4 g/dL 12.0-16.0 Hematocrit 39 % 35-47 Mean Corpuscular Volume 89 fL 80-97 Mean Corpuscular Hemoglobin 30 pg 27-31 Mean Corpuscular HGB Conc 34 g/dL 31-36 Red Cell Distribution Width 17 % High 10.5-15 Platelet Count 216 10^3/uL 150-450 Mean Platelet Volume 9 um3 7.4-10.4 Abs Neutrophils 3.8 10^3/uL 1.5-7.7 Abs Lymphocytes 2.4 10^3/uL 1.0-4.8 Abs Monocytes 0.3 10^3/uL 0-0.8 Abs Eosinophils 0.1 10^3/uL 0-0.6 Abs Basophils 0 10^3/uL 0-0.2 Abs Nucleated RBC 0 10^3/uL Granulocyte % 56.5 % 38-83 Lymphocyte % 35.7 % 25-47 Monocyte % 5.1 % 1-9 Eosinophil % 2.1 % 0-6 Basophil % 0.6 % 0-2 Nucleated Red Blood Cells % 0.1 Laboratory test finding 05/20/2017 Hemoglobin A1c 10.0 Laboratory test finding 03/02/2017 Wound Culture/Sensi SEE RESULT BELOW 25 Tissue Culture & Sensitiv SEE RESULT BELOW 26 Laboratory test finding 01/26/2017 Cytology SEE RESULT BELOW 27 Human Papilloma Virus Rna Negative Negative 28 Laboratory test finding 11/30/2016 Hemoglobin A1c 9.7 1 SORE THROAT, FACE HURTS 2 NORMAL THROAT DICKSON 3 Test Performed by: [address] [id number] 4 Because ethnic data is not always readily available, this report includes an eGFR for both -Americans and non- Americans. The National Kidney Disease Education Program (NKDEP) does not endorse the use of the MDRD equation for patients that are not between the ages of 18 and 70, are , have extremes of body size, muscle mass, or nutritional status, or are non- or non-. According to the National Kidney Foundation, irrespective of diagnosis, the stage of the disease is based on the level of kidney function: Stage Description GFR(mL/min/1.73 m(2)) 1 Kidney damage with normal or decreased GFR 90 2 Kidney damage with mild decrease in GFR 60-89 3 Moderate decrease in GFR 30-59 4 Severe decrease in GFR 15-29 5 Kidney failure <15 (or dialysis) 5 Result TnIDx:0.07 Called to [id number] at: 00:01:40 by:[id number] Read back by: [id number] Critical Result LACT:2.6 Called to [id number] at: 00:00:38 by:[id number] Read back by:[id number] [place] Severe Sepsis and Septic Shock Management Bundle Measure requires all lactic acids initially measuring >2.0 mmol/L be repeated. 7 >100 to <200 pg/mL: likely compensated congestive heart failure (CHF) 200 to 400 pg/mL: likely moderate CHF >400 pg/mL: likely moderate to severe CHF 8 Mathematician: [id number] Mathematician: [id number] 10 Because ethnic data is not always readily available, this report includes an eGFR for both -Americans and non- Americans. The National Kidney Disease Education Program (NKDEP) does not endorse the use of the MDRD equation for patients that are not between the ages of 18 and 70, are , have extremes of body size, muscle mass, or nutritional status, or are non- or non-. According to the National Kidney Foundation, irrespective of diagnosis, the stage of the disease is based on the level of kidney function: Stage Description GFR(mL/min/1.73 m(2)) 1 Kidney damage with normal or decreased GFR 90 2 Kidney damage with mild decrease in GFR 60-89 3 Moderate decrease in GFR 30-59 4 Severe decrease in GFR 15-29 5 Kidney failure <15 (or dialysis) 11 Please note the change in INR reference range effective 17. 12 SURGICAL WOUND LEFT POSTERIOR LEG-INITIAL/OPEN-PER REQ 13 SEE RESULT BELOW Name: GABRIEL CHAVEZ : [address]: Uri Buchanan MD Acct: [id number] Unit: [id number] AGE: 52 Location: WOUND Re10/12/17 SEX: F Status: REG REF SPEC: [id number] KYRA: 10/12/17-[address] [facility] [address]: Uri Buchanan MD REQ: [id number] RECD: 10/12/17 STATUS: MJ GRIJALVA DR: Jamaal Garcia DO _ SOURCE: LEG,LEFT SPDESC: ORDERED: Culture Stain COMMENTS: SURGICAL WOUND LEFT POSTERIOR LEG-INITIAL/OPEN-PER REQ QUERIES: Specimen Description LT. POSTERIOR LEG Procedure Result Reported Site Wound/Misc Gram Stain Final 10/12/17- 1535 ML 4+ Neutrophils 3+ Gram Positive Cocci Wound/Misc Culture Final 10/14/17- 1100 ML Organism 1 STAPHYLOCOCCUS AUREUS Quantity 2+ 1. STAPHYLOCOCCUS AUREUS M.I.C. RX --------- ------ Penicillin >=0.5 R Clindamycin <=0.25 S Erythromycin 0.5 S Gentamicin <=0.5 S Linezolid 2 S Nitrofurantoin 32 S Oxacillin 0.5 S * Quinupristin/Dalfopristin 0.5 S Rifampin <=0.5 S Tetracycline <=1 S Doxycycline - Deduced S * Minocycline - Deduced S Trimethoprim/Sulfamethoxazole <=10 S Vancomycin 1 S Imipenem-Deduced S CONTINUED ON NEXT PAGE * ML=Testing performed at Main Lab DEPARTMENT OF PATHOLOGY, [address] [place] [address] Mg Ruff M.D. Director [facility] # [id number] Patient: GABRIEL CHAVEZ [id number] (Continued) Specimen: [id number] Collected: 10/12/17 Received: 10/12/17-1216 (Continued) Procedure Result Reported Site Wound/Misc Culture Final (continued) 10/14/17- 1100 1. STAPHYLOCOCCUS AUREUS (continued) M.I.C. RX --------- ------ * Ampicillin/Sulbactam-Deduced S Cefazolin-Deduced S * These antibiotics are not available in the [facility] Formulary Contact the Microbiology Department for any additional antibiotic reporting. * ML - MAIN LAB ([facility]) . END OF REPORT * ML=Testing performed at Main Lab DEPARTMENT OF PATHOLOGY, [address] [place] [address] Mg Ruff M.D. Director [facility] # [id number] 14 Please note the change in INR reference range effective 17. 15 Because ethnic data is not always readily available, this report includes an eGFR for both -Americans and non- Americans. The National Kidney Disease Education Program (NKDEP) does not endorse the use of the MDRD equation for patients that are not between the ages of 18 and 70, are , have extremes of body size, muscle mass, or nutritional status, or are non- or non-. According to the National Kid[employer] Foundation, irrespective of diagnosis, the stage of the disease is based on the level of kidney function: Stage Description GFR(mL/min/1.73 m(2)) 1 Kidney damage with normal or decreased GFR 90 2 Kidney damage with mild decrease in GFR 60-89 3 Moderate decrease in GFR 30-59 4 Severe decrease in GFR 15-29 5 Kidney failure <15 (or dialysis) 16 Please note the change in INR reference range effective 17. 17 Please note the change in INR reference range effective 17. 18 >100 to <200 pg/mL: likely compensated congestive heart failure (CHF) 200 to 400 pg/mL: likely moderate CHF >400 pg/mL: likely moderate to severe CHF 19 Critical Result LACT:2.6 Called to [id number] at: 23:08:02 by:[email or web address] Read back by:JOSE [place] Severe Sepsis and Septic Shock Management Bundle Measure requires all lactic acids initially measuring >2.0 mmol/L be repeated. 20 Because ethnic data is not always readily available, this report includes an eGFR for both -Americans and non- Americans. The National Kidney Disease Education Program (NKDEP) does not endorse the use of the MDRD equation for patients that are not between the ages of 18 and 70, are , have extremes of body size, muscle mass, or nutritional status, or are non- or non-. According to the National Kidney Foundation, irrespective of diagnosis, the stage of the disease is based on the level of kidney function: Stage Description GFR(mL/min/1.73 m(2)) 1 Kidney damage with normal or decreased GFR 90 2 Kidney damage with mild decrease in GFR 60-89 3 Moderate decrease in GFR 30-59 4 Severe decrease in GFR 15-29 5 Kidney failure <15 (or dialysis) 21 Because ethnic data is not always readily available, this report includes an eGFR for both -Americans and non- Americans. The National Kidney Disease Education Program (NKDEP) does not endorse the use of the MDRD equation for patients that are not between the ages of 18 and 70, are , have extremes of body size, muscle mass, or nutritional status, or are non- or non-. According to the National Kidney Foundation, irrespective of diagnosis, the stage of the disease is based on the level of kidney function: Stage Description GFR(mL/min/1.73 m(2)) 1 Kidney damage with normal or decreased GFR 90 2 Kidney damage with mild decrease in GFR 60-89 3 Moderate decrease in GFR 30-59 4 Severe decrease in GFR 15-29 5 Kidney failure <15 (or dialysis) 22 >100 to <200 pg/mL: likely compensated congestive heart failure (CHF) 200 to 400 pg/mL: likely moderate CHF >400 pg/mL: likely moderate to severe CHF 23 Mathematician: [id number] 24 Because ethnic data is not always readily available, this report includes an eGFR for both -Americans and non- Americans. The National Kidney Disease Education Program (NKDEP) does not endorse the use of the MDRD equation for patients that are not between the ages of 18 and 70, are , have extremes of body size, muscle mass, or nutritional status, or are non- or non-. According to the National Kidney Foundation, irrespective of diagnosis, the stage of the disease is based on the level of kidney function: Stage Description GFR(mL/min/1.73 m(2)) 1 Kidney damage with normal or decreased GFR 90 2 Kidney damage with mild decrease in GFR 60-89 3 Moderate decrease in GFR 30-59 4 Severe decrease in GFR 15-29 5 Kidney failure <15 (or dialysis) 25 SEE RESULT BELOW Name: GABRIEL CHAVEZ : [address]: Uri Buchanan MD Acct: [id number] Unit: [id number] AGE: 51 Location: WOUND Re03/02/17 SEX: F Status: REG REF SPEC: [id number] KYRA: 03/02/[address] [facility] [address]: Uir Buchanan MD REQ: [id number] RECD: 03/02/17 STATUS: MJ GRIJALVA DR: Jeison Mcfadden MD _ SOURCE: FOOT,LEFT SPDESC: ORDERED: Culture Stain QUERIES: Specimen Description DIABETIC ULCER-L FOOT Procedure Result Reported Site Wound/Misc Gram Stain Final 03/02/17- 1330 ML 3+ Neutrophils 2+ Epithelial Cells 4+ Gram Positive Cocci Intracellular 2+ Gram Negative Bacilli Wound/Misc Culture Final 03/05/17- 0855 ML Organism 1 MORGANELLA MORGANII Quantity 1+ Organism 2 STREPTOCOCCUS ANGINOSUS Quantity 2+ Organism 3 NORMAL DICKSON Quantity 3+ 1. MORGANELLA MORGANII M.I.C. RX --------- ------ Ampicillin >=32 R Cefazolin >=64 R Cefepime <=1 S Ceftriaxone <=1 S Ciprofloxacin <=0.25 S Gentamicin <=1 S Levofloxacin <=0.12 S Meropenem <=0.25 S Nitrofurantoin R Tetracycline R CONTINUED ON NEXT PAGE * ML=Testing performed at Main Lab DEPARTMENT OF PATHOLOGY, [address] [place] [address] Mg Ruff M.D. Director [facility] # [id number] Patient: GABRIEL CHAVEZ [id number] (Continued) Specimen: [id number] Collected: 03/02/17 Received: 03/02/17 (Continued) Procedure Result Reported Site Wound/Misc Culture Final (continued) 03/05/17854 1. MORGANELLA MORGANII (continued) M.I.CWilfredo RX --------- ------ Pipercillin/Tazobactam <=4 S Trimethoprim/Sulfamethoxazole <=20 S Amoxicillin/Clavulanic Acid >=32 R Aztreonam <=1 S 2. STREPTOCOCCUS ANGINOSUS M.I.C. RX --------- ------ Chloramphenicol 4 S Ampicillin 0.12 S Penicillin 0.12 S Meropenem <=0.06 S Cefepime <=0.25 S * Cefotaxime <=0.25 S Ceftriaxone 0.5 S Levofloxacin 2 S Azithromycin <=0.25 S Clindamycin <=0.06 S Erythromycin <=0.06 S Tetracycline >4 R Vancomycin 0.5 S Contact the Microbiology Department for any additional antibiotic reporting. * ML - MAIN LAB ([facility]) . END OF REPORT * ML=Testing performed at Main Lab DEPARTMENT OF PATHOLOGY, [address] [place] [address] Mg Ruff M.D. Director [facility] # [id number] 26 SEE RESULT BELOW Name: GABRIEL CHAVEZ : [address]: Uri Buchanan MD Acct: [id number] Unit: [id number] AGE: 51 Location: WOUND Re03/02/17 SEX: F Status: REG REF SPEC: [id number] KYRA: 03/02/[address] [facility] [address]: Uri Buchanan MD REQ: [id number] RECD: 03/02/17 STATUS: MJ GRIJALVA DR: Jeison Mcfadden MD _ SOURCE: TISSUE SPDESC:OTHER ORDERED: Tissue Cult/GS COMMENTS: DIABETIC ULCER -LEFT FOOT Procedure Result Reported Site Tissue Gram Stain Final 03/03/17- 1451 ML No Neutrophils Observed 4+ Gram Positive Cocci 2+ Gram Negative Coccobacilli 1+ Gram Positive Bacilli Tissue Culture Final 03/06/17- 900 ML Organism 1 MORGANELLA MORGANII Quantity 2+ Organism 2 PROTEUS PENNERI Quantity 1+ Organism 3 NORMAL DICKSON Quantity 1+ WITH POSSIBLE MIXED ANAEROBES; UNABLE TO ISOLATE FOR FURTHER [place]ENT[place]. [place] [id number] for sensitivity testing for Morganella morganii. 2. PROTEUS PENNERI M.I.C. RX --------- ------ Ampicillin >=32 R Cefazolin >=64 R Cefepime <=1 S Ceftriaxone <=1 S CONTINUED ON NEXT PAGE * ML=Testing performed at Main Lab DEPARTMENT OF PATHOLOGY, [address] [place] [address] Mg Ruff M.D. Director [facility] # [id number] Patient: LUCASGABRIEL [id number] (Continued) Specimen: [id number] Collected: 03/02/17 Received: 03/02/17 (Continued) Procedure Result Reported Site Tissue Culture Final (continued) 03/06/17900 2. PROTEUS PENNERI (continued) M.I.C. RX --------- ------ Ciprofloxacin <=0.25 S Gentamicin <=1 S Levofloxacin <=0.12 S Meropenem <=0.25 S Nitrofurantoin 128 R Tetracycline >=16 R Pipercillin/Tazobactam <=4 S Trimethoprim/Sulfamethoxazole <=20 S Amoxicillin/Clavulanic Acid 4 S Aztreonam <=1 S Contact the Microbiology Department for any additional antibiotic reporting. * ML - MAIN LAB ([facility]) . END OF REPORT * ML=Testing performed at Main Lab DEPARTMENT OF PATHOLOGY, [address] [place] [address] Mg Ruff M.D. Director [facility] # [id number] 27 SEE RESULT BELOW Name: ANDREWZEGABRIEL : [address]: Latia SAEED Acct: [id number] Unit: [id number] AGE: 51 Location: [facility] Re01/26/17 SEX: F Status: REG REF SPEC: [id number] KYRA: 01/26/17-[address] [facility] [address]: Latia SAEED REQ: [id number] RECD: 01/26/17183 STATUS: SOUT _ ORDERED: IMAGE ANALYSIS, HPV/Thin Prep COMMENTS: [id number] FINAL DIAGNOSIS Negative for Intraepithelial lesion or Malignancy Shift in dickson suggestive of bacterial vaginosis A. Ectocervical/Endocervical Specimen Adequacy: Satisfactory of evaluation Transformation zone component identified Patient Information: HPV: High risk HPV RNA testing regardless of pap results. Actual Specimen Date: 01/26/17 LMP If Unknown: 2003 Spec Date if unknown: 2003 ?: N Post Menopausal?: Y Hysterectomy?: Y Previous Abnormal Pap Smears?:Y If Yes, enter Diagnosis: Atypical Squamous cells of uncertain significance. Other Pertinent History: partial hysterectomy- portion of cervix still remains Date Time Test Result Flag (u) Normal Range 01/26/17 1009 HPV RNA Negative Negative The high-risk HPV types detected by the assay include: 16, 18, 31, 33, 35, 39, 45, 51, 52, 56, 58, 59, 66, and 68. Signed (signature on file) SAMY Lanier (ASCP) 01/27 1502 This Pap test was evaluated with the assistance of the [employer] Test Imaging System. Due to cytologic findings at the transcription coordinator microscope, comprehensive manual rescreening by a Nuclear Instructor may be required. The Pap Smear is a screening test designed to aid in the detection of premalignant and malignant conditions of the uterine cervix. It is not a diagnostic procedure and should not be used as the sole means of detecting cervical cancer. Both false- positive and false- negative reports do occur. Depending on your risk status, a Pap smear should be obtained and evaluated every 1-3 years. END OF REPORT * ML=Testing performed at Main Lab RUN DATE: 01/27/17 [facility] LAB LIVE PAGE 1 Patient: GABRIEL CHAVEZ [id number] (Continued) DEPARTMENT OF PATHOLOGY, [address] [place] [address] Mg Ruff M.D. Director [facility] # [id number] 28 The high-risk HPV types detected by the assay include: 16, 18, 31, 33, 35, 39, 45, 51, 52, 56, 58, 59, 66, and 68. Procedures Date CPT Code Description Status Comment 02/02/2018 Diabetic Foot Exam Completed Dr. Buchanan wound care for ID caring for diabetic foot ulcers currently. Had Dr. Shaw perform revascularization procedure to aid in wound healing. 11/04/2017 03207 Anticoagulant MGMT For Completed Patient Taking Warfarin, Inc Review & Intr 10/27/2017 43697 Anticoagulant MGMT For Completed Patient Taking Warfarin, Inc Review & Intr 07/21/2017 33102 Inhalation Therapy Completed 03/18/2017 78401 X-Ray Chest Two Views Completed 02/22/2017 Mammogram Completed 2017:benign 01/18/2017 49182 Electrocardiogram Complete Completed Encounters Type Date Location Provider CPT E/M Dx Office Visit 05/30/2018 12:55p Main Office Jamaal Garcia D.O. 82906 E11.69 Z79.4 I50.22 I25.10 I70.234 I25.83 I10 K21.9 R07.89 Office Visit 03/19/2018 11:00a Main Office Odell Bear M.D. 25049 R07.0 H92.03 R51 J01.90 Office Visit 02/02/2018 2:30p Main Office Jamaal Garcia D.O. 28874 E11.69 I50.22 I25.10 E11.59 I70.234 Z79.4 Office Visit 12/07/2017 2:20p Main Office Tremayne Browne 46333 J01.90 B37.9 I10 R07.0 Office Visit 10/07/2017 10:30a Main Office Jamaal Garcia D.O. 82945 E11.69 Z79.4 L97.519 Z95.1 R60.9 Z79.01 E11.65 Office Visit 08/30/2017 11:20a Main Office Tremayne Browne 17839 E11.65 Z79.4 L97.519 Z95.1 R60.9 Z79.01 Office Visit 08/06/2017 3:00p Main Office Jamaal Garcia D.O. 91400 J84.9 I70.234 I25.83 Office Visit 07/21/2017 4:20p [place] [address] J20.9 J84.9 F17.210 E11.65 E11.621 I70.234 Z79.4 Office Visit 07/08/2017 2:30p Main Office Jamaal Garcia D.O. 10843 E11.65 Z23 Z41.8 Office Visit 05/20/2017 9:45a Main Office Jamaal Garcia D.O. 56974 E11.65 Office Visit 03/18/2017 1:45p Main Office Jeison Mcfadden M.D. 82856 R05 R91.8 J84.9 Office Visit 01/26/2017 9:25a [place] [address] Z01.419 Z12.4 Z12.31 E11.65 I10 F17.210 L97.429 E11.621 Office Visit 01/18/2017 11:15a Main Office Jeison Mcfadden M.D. 25794 E11.65 I10 Z71.89 I25.10 L97.529 E11.621 Z79.4 Z23 Office Visit 11/30/2016 9:15a Main Office Jeison Mcfadden M.D. 17866 E11.65 E11.59 L97.429 E11.621 Z79.4 F17.210 E11.9 Plan of Care Future Appointment(s):08/30/2018 9:45 am - Jamaal Garcia D.O. at Main Office
--- OUTSIDE RECORDS SUMMARY | 2018-07-22 20:17 | XMS REPORT ---
:1965 External Reference #:[id number] Author Organization [facility] Address [address] [place] [address] Phone [phone] Care Team Providers Name Role Phone HCP/LW on file Primary Care Physician Unavailable Payers Type Date Identification Numbers Payment Provider Subscriber Medicare Primary Policy Number: [id number] [facility] Gabriel Chavez Services PayID: [id number] [address] [place] [address] Problems Date Description Provider Status Onset: 01/26/2017 Type II diabetes mellitus uncontrolled Latia Monsalve PA Active Onset: 01/26/2017 Essential hypertension Latia Monsalve PA Active Onset: 01/26/2017 Tobacco user [...] Seat Belt Use - Yes Age 1st Mcgregor 17 Years Old # [employer] 5-10 Allergies, Adverse Reactions, Alerts Date Description Reaction Status Severity Comments 01/18/2017 Zofran active hives 07/08/2017 Levaquin active vomiting Medications Medication Date Status Form Strength Qnty SIG Indications Ordering Provider Amoxicillin/Cla 07/11 Hx Tablets 875-125mg 20tab 1 by mouth patsy Garcia s twice a day Jamaal, Potassium - D.O. 07/21 Neti Pot Kit 07/11 Active Kit 2300-700m 1unit use as Radha g s directed Jamaal, Wash/Clear View D.O. Kettle Toujeo Max 05/30 Active Solution 300Unit/M 60ml 120 units E11.69 Eliel Garcia Pen-Injec L injected once Jamaal, t daily increase D.O. by 2 u every 3 days if fasting glucose are > 110. Pantoprazole 05/26 Active Tablets 40mg 60tab 1 tablet by Heath Garcia DR hollingsworth mouth twice Jamaal, daily D.O. Tylenol 05/26 Active Tablets 325mg give 2 tablets by mouth [id number] as needed / otc Freestyle Test 02/03 Active Strips 200un or appropriate Radha its strips for Jamaal, patient's D.O. machine. use 1-4 times daily as directed. Freestyle 28G 01/22 Active 200un Use as Maria R Garcia its Directed For Jamaal, Diabetic D.O. Testing 1-4 Times Day Clopidogrel 11/04 Active Tablets 75mg 1 tablet by Curry Grimaldoate mouth daily DO Tomas Lisinopril 10/06 Active Tablets 2.5mg 1 by mouth Unknown every day Atorvastatin 08/20 Active Tablets 80mg 1 by mouth Unknown every evening Docusate Sodium 08/20 Active Capsules 100mg 1 cap by mouth twice a day as needed for constipation Furosemide 08/20 Active Tablets 20mg 180ta Take Two bs Tablets By Jamaal, Mouth Every D.O. Day Spironolactone 08/05 Active Tablets 25mg 90tab Take One s Tablet By Jamaal, Mouth Every D.O. Morning For High Blood Pressure Carvedilol 08/05 Active Tablets 3.125mg 180ta Take One bs Tablet By Jamaal, Mouth Twice A D.O. Day Freestyle Lite 05/20 Active Device 1unit or any other E11.65 Sopk, Blood Glucose s covered Jamaal, Monitoring glucometer by D.O. System her insurance. Lancets 05/20 Active Misc 200un use as E11.65 cha its directed for Shady Hinton Safety diabetic D.O. testing BD Pen 05/20 Active Misc 31G X 5 400un or appropriate [facility], [facility]/Mini/Ul mm its needles for emil Hinton/31G X lantus pen. D.O. 01/07" use up to 6/day, as directed, for insulin administration Novolog Flexpen 04/29 Active Solution 100Unit/M 45ml 15 units E11.69 Pen-Injec L before each Jamaal, t meal or per D.O. sliding scale Gabapentin Active Capsules 300mg 90cap 1 by mouth Sopchak, / s daily Jamaal, D.O. Aspirin Active 81mg 1 daily Unknown Children' Ranitidine HCL Active Capsules 300mg 90cap 1 by mouth Sopchak, / s daily at Jamaal, bedtime D.O. Tradjenta Active Tablets 5mg 90tab Take One Sopchak, s Tablet By Jamaal, Mouth Every D.O. Day For Blood Sugar Control Amoxicillin 03/19 Hx Tablets 500mg 60tab 2 by mouth J01.90 Silcojennifer, s three times a Odell, - day for 10 M.D. 04/02 days for sinusitis; start this if not feeling better in a few days Freestyle Lite 02/03 Hx Strips use up to E11.65 [facility], 4-6x/day for Jamaal, - blood sugar D.O. 02/03 monitoring Amoxicillin 12/07 Hx Tablets 875mg 20tab 1 by mouth J01.90 co, s twice a day x Odell, - 10 days for M.D. 12/17 bacterial pharyngitis Fluconazole 12/07 Hx Tablets 150mg 2tabs 1 tabs by B37.9 Luther mouth one time Odell, - a week for M.D. 12/21 yeast infection Basaglar 11/19 Hx Solution 100Unit/M 120ml inject 60 E11.69 [facility], Pen-Injec L units 2 (two) Jamaal, - t times daily, D.O. 05/30 at same time every day; for blood sugar control; inc. by 2units every 3d if fbs > 110 Coumadin 09/06 Hx Tablets 1mg 200ta 1 - 5 tablets bs daily as Jamaal, - directed. D.O. 12/06 Breo 08/20 Hx as directed - 08/27 Breo Ellipta 08/20 Hx Aerosol 100-25mcg 1 puff into /Inh lungs daily; - rinse mouth 12/06 out [...] 1 tab by mouth J20.9 Silcoff, vulanat /2016 s twice a day Martha Bain - x10 days M.D. 07/31 Ventolin HFA 07/21 Hx Aerosol 108(90Bas 18uni Inhale Two J20.9 Silcoff, e) ts Puffs By Mouth Odell - mcg/Act Every 4 To 6 M.D. 04/10 Hours as Needed For Shortness Of Breath J84.9 Losartan 07/09/2017 - Hx Tablets 50mg 90tabs take 1 tablet Sopchak, Potassium 08/20/2017 daily in the Jamaal, morning for D.O. diabetic kidney protection Furosemide 07/02/2017 - Hx Tablets 40mg 1 by mouth Unknown 08/20/2017 three times a week BD Insulin 05/20/2017 - Hx Misc 31G X 450units use with Sopchak, Syringe 05/20/201764" lantus and Jamaal, Ultrafine/U-100 1 ML humolog as D.O. /1ML/31G X directed 5 " times daily BD Insulin 05/20/2017 - Hx Misc 31G X 450units use with Sopchak, Syringe 05/20/2017" Novolog and Jamaal, Ultrafine/U-100 1 ML Lantus 5x D.O. /1ML/31G X daily as " directed daily Freestyle Lite 05/20/2017 - Hx Strip 400units test 1-6 times E11 Sopchak, Test 02/03/2018 daily .65 Jamaal, D.O. Incruse Ellipta 05/19/2017 - Hx Aerosol 62.5mcg [...] Hx Tablets 40mg 30tabs 1 by mouth Grimaldo, Calcium 08/27/2017 every day for Tomas, high cholesterol Zyban 02/18/2017 - Hx Tablets ER 150mg 60tabs 1 tablet by Dillan, 08/20/2017 12HR mouth twice DO Tomas daily Lantus Solostar 11/30/2015 - Hx Solution 100Unit 100ml 40 unit every Sopchak, 08/27/2017 Pen-Inject /ML night 36 units Jamaal, every 3 days D.O. increase morning lantus dose by 2 units until fasting glucose <110. mdd 100u/day Clopidogrel - Hx Tablets 75mg 90tabs 1 by mouth [facility], Bisulfate 08/05/2017 every day Jamaal DWilfredoOWilfredo Furosemide - Hx Tablets 20mg 90tabs take 1 tablet Jeison Johnson 07/08/2017 by mouth Klepack, daily. M.D. Ranexa - Hx Tablets ER 1000mg 180tabs 1 tablet twice [facility], 08/27/2017 12HR a day Joan Hinton.OWilfredo Fish Oil - Hx Capsules 1000mg ingest [...] - Hx Solution 100Unit 10ml 15 units [facility], 04/29/2017 /ML before each Jamaal, meal or per D.O. sliding scale Levofloxacin - Hx Tablets 500mg Take One Unknown 07/07/2017 Tablet By Mouth Every Day Immunizations CPT Code Status Date Vaccine Lot # [id number] Given 07/08/2017 Influenza Virus Vaccine, Quadrivalent, Split, [id number] Preservative Free 60897 Given 01/18/2017 Adacel or Boostrix, TDaP [id number] Given 11/30/2016 Influenza Virus Vaccine, Quadrivalent, Split, [...] 11 Laboratory test 10/12/2017 Wound SEE RESULT , 13 finding Culture/Sensi BELOW Inr/Protime 10/11/2017 Inr [...] NORMAL THROAT DICKSON 3 Test Performed by: [facility] - [address] [address] 4 Because ethnic data is not always [...] (or dialysis) 5 Result TnIDx:0.07 Called to [id number] at: 00:01:40 by:[id number] Read back by: [id number] 6 Critical Result LACT:2.6 Called to [id number] at: 00:00:38 by:[id number] Read back by:[id number] [place] Severe Sepsis and Septic Shock Management Bundle Measure requires all lactic acids initially measuring >2.0 mmol/L be repeated. 7 >100 to <200 pg/mL: likely compensated congestive heart failure (CHF) 200 to 400 pg/mL: likely moderate CHF >400 pg/mL: likely moderate to severe CHF 8 Principal Java Software Engineer: [id number] Principal Java Software Engineer: [id number] 10 Because ethnic data is not always [...] [address]: Uri Buchanan MD Acct: [id number] Unit: [id number] AGE: 52 Location: WOUND Re10/12/17 SEX: F Status: REG REF SPEC: [id number] KYRA: 10/12/17-[address] [facility] [address]: Uri Buchanan MD REQ: [id number] RECD: 10/12/17 STATUS: COMP [facility] DR: Jamaal Garcia DO _ SOURCE: LEG,LEFT [...] performed at Main Lab DEPARTMENT OF PATHOLOGY, [address] [place] [address] Mg Ruff M.D. Director [facility] # [id number] Patient: GABRIEL CHAVEZ [id number] (Continued) Specimen: [id number] Collected: 10/12/17-1115 Received: 10/12/17-1216 (Continued) Procedure Result Reported Site Wound/Misc Culture Final (continued) 10/14/17- 1099 1. STAPHYLOCOCCUS AUREUS (continued) M.I.C. RX --------- ------ * Ampicillin/Sulbactam-Deduced S Cefazolin-Deduced S * These antibiotics are not available in the [facility] Formulary Contact the Microbiology Department for any additional antibiotic reporting. * ML - MAIN LAB ([facility]) . END OF REPORT * ML=Testing performed at Main Lab DEPARTMENT OF PATHOLOGY, [address] [place] [address] Mg Ruff M.D. Director [facility] # [id number] 14 Please note the change in INR [...] CHF 19 Critical Result LACT:2.6 Called to JOSE at: 23:08:02 by:[id number] Read back by:JOSE [facility] Severe Sepsis and Septic Shock Management Bundle [...] pg/mL: likely moderate to severe CHF 23 Principal Java Software Engineer: [id number] 24 Because ethnic data is not always [...] (or dialysis) 25 SEE RESULT BELOW Name: ANDREWGRETTA KUNZRED : [address]: Uri Buchanan MD Acct: [id number] Unit: [id number] AGE: 51 Location: WOUND Re03/02/17 SEX: F Status: REG REF SPEC: [id number] KYRA: 03/02/[address] [facility] [address]: Uri Buchanan MD REQ: [id number] RECD: 03/02/17 STATUS: COMP [facility] DR: Jeison Mcfadden MD _ SOURCE: FOOT,LEFT [...] performed at Main Lab DEPARTMENT OF PATHOLOGY, [address] [place] [address] Mg Ruff M.D. Director [facility] # [id number] Patient: ANNYJOANIEZEGABRIEL [id number] (Continued) Specimen: [id number] Collected: 03/02/17 Received: 03/02/17 (Continued) Procedure Result Reported Site Wound/Misc Culture Final (continued) 03/05/17- 854 1. MORGANELLA MORGANII (continued) M.I.C. RX --------- ------ Pipercillin/Tazobactam <=4 S Trimethoprim/Sulfamethoxazole [...] antibiotic reporting. * ML - MAIN LAB ([facility]) . END OF REPORT * ML=Testing performed at Main Lab DEPARTMENT OF PATHOLOGY, [address] [place] [address] Mg Ruff M.D. Director [facility] # [id number] 26 SEE RESULT BELOW Name: GABRIEL CHAVEZ : [address]: Uri Buchanan MD Acct: [id number] Unit: [id number] AGE: 51 Location: WOUND Re03/02/17 SEX: F Status: REG REF SPEC: [id number] KYRA: 03/02/[address]: Uri Buchanan MD REQ: [id number] RECD: 03/02/17 STATUS: MJ [facility] DR: Jeison Mcfadden MD _ SOURCE: TISSUE SPDESC:OTHER ORDERED: Tissue Cult/GS COMMENTS: DIABETIC ULCER -LEFT FOOT Procedure Result Reported Site Tissue Gram Stain Final 03/03/17- 1451 ML No Neutrophils Observed 4+ Gram Positive Cocci 2+ Gram Negative Coccobacilli 1+ Gram Positive Bacilli Tissue Culture Final 03/06/17- 0901 ML Organism 1 MORGANELLA MORGANII Quantity 2+ Organism 2 PROTEUS PENNERI Quantity 1+ Organism 3 NORMAL DICKSON Quantity 1+ WITH POSSIBLE MIXED ANAEROBES; UNABLE TO ISOLATE FOR FURTHER [place]. [place] [address] for sensitivity testing for Morganella morganii. 2. PROTEUS PENNERI M.I.C. RX --------- ------ Ampicillin >=32 R Cefazolin >=64 R Cefepime <=1 S Ceftriaxone <=1 S CONTINUED ON NEXT PAGE * ML=Testing performed at Main Lab DEPARTMENT OF PATHOLOGY, [address] [place] [address] Mg Ruff M.D. Director [facility] # [id number] Patient: GABRIEL CHAVEZ [id number] (Continued) Specimen: [id number] Collected: 03/02/17 Received: 03/02/17 (Continued) Procedure Result Reported Site Tissue Culture Final (continued) 03/06/17- 900 2. PROTEUS PENNERI (continued) M.I.C. RX --------- ------ Ciprofloxacin <=0.25 S Gentamicin <=1 S Levofloxacin <=0.12 S Meropenem <=0.25 S Nitrofurantoin 128 R Tetracycline >=16 R Pipercillin/Tazobactam <=4 S Trimethoprim/Sulfamethoxazole <=20 S Amoxicillin/Clavulanic Acid 4 S Aztreonam <=1 S Contact the Microbiology Department for any additional antibiotic reporting. * ML - MAIN LAB ([facility]) . END OF REPORT * ML=Testing performed at Main Lab DEPARTMENT OF PATHOLOGY, [address] [place] [address] Mg Ruff M.D. Director [facility] # [id number] 27 SEE RESULT BELOW Name: GABRIEL CHAVEZ : [address]: Latia SAEED Acct: [id number] Unit: [id number] AGE: 51 Location: [facility] Re01/26/17 SEX: F Status: REG REF SPEC: [id number] KYRA: 01/26/17-[address]: [id number] RECD: 01/26/17 STATUS: SOUT _ ORDERED: IMAGE ANALYSIS, HPV/Thin Prep COMMENTS: [id number] FINAL DIAGNOSIS Negative for Intraepithelial lesion or [...] 66, and 68. Signed (signature on file) Geovanny FultonSAMY ring ([facility]) 01/27 1502 This Pap test was evaluated with the assistance of the MindjetPrep Test Imaging System. Due to cytologic findings at the research physician microscope, comprehensive manual rescreening by a Gas Meter Mechanic may be required. The Pap Smear is [...] performed at Main Lab RUN DATE: 01/27/17 [facility] LAB LIVE PAGE 1 Patient: GABRIEL CHAVEZ [id number] (Continued) DEPARTMENT OF PATHOLOGY, [address] [place] [address] Mg Ruff M.D. Director [facility] # [id number] 28 The high-risk HPV types detected by the assay include: 16, 18, 31, 33, 35, 39, 45, 51, 52, 56, 58, 59, 66, and 68. Procedures Date CPT Code Description Status Comment 02/02/2018 Diabetic Foot Exam Completed Dr. Buchanan wound care for ID caring for diabetic foot ulcers currently. Had Dr. Shaw perform revascularization procedure to aid in wound healing. 11/04/2017 96990 Anticoagulant MGMT For Completed Patient Taking Warfarin, Inc Review & Intr 10/27/2017 52874 Anticoagulant MGMT For Completed Patient Taking Warfarin, Inc Review & Intr 07/21/2017 72649 Inhalation Therapy Completed 03/18/2017 98553 X-Ray Chest Two Views Completed 02/22/2017 Mammogram Completed 2017:benign 01/18/2017 92111 Electrocardiogram Complete Completed Encounters Type Date Location Provider CPT E/M Dx Office Visit 07/11/2018 3:00p Main Office Jamaal Garcia D.O. 49916 R07.0 J01.00 J02.9 E11.69 Z79.4 L97.519 I10 Office Visit 05/30/2018 12:55p Main Office Jamaal Garcia D.O. 99263 E11.69 Z79.4 I50.22 I25.10 I70.234 I25.83 I10 K21.9 R07.89 Office Visit 03/19/2018 11:00a Main Office Odell Bear M.D. 35179 R07.0 H92.03 R51 J01.90 Office Visit 02/02/2018 2:30p Main Office Jamaal Garcia D.O. 32203 E11.69 I50.22 I25.10 E11.59 I70.234 Z79.4 Office Visit 12/07/2017 2:20p Main Office Tremayne Browne 21129 J01.90 B37.9 I10 R07.0 Office Visit 10/07/2017 10:30a Main Office Jamaal Garcia D.O. 34990 E11.69 Z79.4 L97.519 Z95.1 R60.9 Z79.01 E11.65 Office Visit 08/30/2017 11:20a Main Office Tremayne Browne 56760 E11.65 Z79.4 L97.519 Z95.1 R60.9 Z79.01 Office Visit 08/06/2017 3:00p Main Office Jamaal Garcia D.O. 25845 J84.9 I70.234 I25.83 Office Visit 07/21/2017 4:20p [place] [address] J20.9 J84.9 F17.210 E11.65 E11.621 I70.234 Z79.4 Office Visit 07/08/2017 2:30p Main Office Jamaal Garcia D.O. 78491 E11.65 Z23 Z41.8 Office Visit 05/20/2017 9:45a Main Office Jamaal Garcia D.O. 27259 E11.65 Office Visit 03/18/2017 1:45p Main Office Jeison Mcfadden M.D. 53121 R05 R91.8 J84.9 Office Visit 01/26/2017 9:25a [place] [address] Z01.419 Z12.4 Z12.31 E11.65 I10 F17.210 L97.429 E11.621 Office Visit 01/18/2017 11:15a Main Office Jeison Mcfadden M.D. 84122 E11.65 I10 Z71.89 I25.10 L97.529 E11.621 Z79.4 Z23 Office Visit 11/30/2016 9:15a Main Office Jeison Mcfadden M.D. 73939 E11.65 E11.59 L97.429 E11.621 Z79.4 F17.210 E11.9 Plan of Care Future Appointment(s):08/30/2018 9:45 am - Jamaal Garcia D.O. at Main Efdnck3507/11/2018 - Jamaal Garcia D.O.R07.0 Pain in throatFollow up:as auqyfurblJ47.00 Acute maxillary sinusitis, unspecifiedFollow up:Use Afrin or Similar over the counter nasal spray for NO more than 3 days. 15min after using nasal decongestant (Afrin or similar) use a neti pot or Nasal Saline Flush ( aslo available over the counter at any pharmacy) use distilled or boiled and cooled water to mix the saline solution. Use the perscription flonase after the nasal saline flush or netipot. Continue to use neti pot/ nasal saline flush daily unless it is painful or you no longer have symptoms. 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
--- NOTE | 2018-07-22 21:08 | ED ---
Back Pain - HPI Summary HPI Summary: Patient complains of pain in right gluteus radiating down right leg 2 days. History of sciatica. Denies trauma, fall, any other symptoms or pain. Patient ambulatory with pain. Denies urinary retention, incontinence, loss of sensation or function distally in bilateral lower extremities. Straight he is DM, COPD, CAD - History of Current Complaint Chief Complaint: EDBackInjuryPain Stated Complaint: RT LOW BACK/HIP PAIN Time Seen by Provider: 07/22/18 19:05 Hx Obtained From: Patient Onset/Duration: Sudden Onset, Lasting Days Onset/Duration: Started Days Ago Timing: Constant Back Pain Location: Is Discrete @ Severity Initially: Severe Severity Currently: Severe Pain Intensity: 10 Pain Scale Used: 0-10 Numeric Character: Throbbing Aggravating Symptom(s): Movement, Bending, Walking Alleviating Symptom(s): Rest Associated Signs And Symptoms: Positive: Negative - Allergies/Home Medications Allergies/Adverse Reactions: Allergies Allergy/AdvReac Type Severity Reaction Status Date / Time levofloxacin [From Levaquin] Allergy Nausea And Verified 07/22/18 18:25 Vomiting ondansetron Allergy Hives Verified 07/22/18 18:25 [From Zofran (as hydrochloride)] PMH/Surg Hx/FS Hx/Imm Hx Endocrine/Hematology History: Reports: Hx Anticoagulant Therapy, Hx Diabetes, Hx Anemia Cardiovascular History: Reports: Hx Angina, Hx Angioplasty, Hx Congestive Heart Failure, Hx Coronary Artery Disease, Hx Hypercholesterolemia, Hx Hypertension, Hx Peripheral Vascular Disease, Hx Valvular Heart Disease Denies: Hx Pacemaker/ICD, Other Cardiovascular Problems/Disorders Respiratory History: Reports: Hx Chronic Obstructive Pulmonary Disease (COPD) Musculoskeletal History: Reports: Hx Arthritis - general Sensory History: Reports: Hx Contacts or Glasses Denies: Hx Hearing Aid Opthamlomology History: Reports: Hx Contacts or Glasses Neurological History: Reports: Hx Transient Ischemic Attacks (TIA) - 2015 Psychiatric History: Denies: Hx Panic Disorder - Surgical History Surgery Procedure, Year, and Place: Complete Hysterectomy 2004; ANNY; HEART CATH- 4 CARDIAC STENTS, CABG, MVR Infectious Disease History: No Infectious Disease History: Denies: Traveled Outside the [place] in Last 30 Days - Family History Known Family History: Positive: Cardiac Disease - Social History Alcohol Use: Rare Substance Use Type: Reports: None Smoking Status (MU): Former Smoker Have You Smoked in the Last Year: No Review of Systems Constitutional: Negative Eyes: Negative ENT: Negative Cardiovascular: Negative Respiratory: Negative Gastrointestinal: Negative Genitourinary: Negative Musculoskeletal: Other Skin: Negative Neurological: Negative Psychological: Normal All Other Systems Reviewed And Are Negative: Yes Physical Exam - Summary Physical Exam Summary: Patient nontender to palpation in right gluteus or along spine. No masses or ecchymosis noted. Positive straight leg test right leg. Triage Information Reviewed: Yes Vital Signs On Initial Exam: Initial Vitals Temp Pulse Resp BP Pulse Ox 97 F 88 17 111/67 92 07/22/18 18:22 07/22/18 18:22 07/22/18 18:22 07/22/18 18:22 07/22/18 18:22 Vital Signs Reviewed: Yes Appearance: Positive: Well-Appearing Skin: Positive: Warm Head/Face: Positive: Normal Head/Face Inspection Eyes: Positive: Normal Neck: Positive: Supple Respiratory/Lung Sounds: Positive: Clear to Auscultation Cardiovascular: Positive: Normal Abdomen Description: Positive: Nontender Musculoskeletal: Positive: Normal Neurological: Positive: Normal Psychiatric: Positive: Normal AVPU Assessment: Alert - Delfino Coma Scale Best Eye Response: 4 - Spontaneous Best Motor Response: 6 - Obeys Commands Best Verbal Response: 5 - Oriented Coma Scale Total: 15 Diagnostics - Vital Signs Vital Signs Temp Pulse Resp BP Pulse Ox 07/22/18 20:03 18 07/22/18 20:00 83 99 07/22/18 19:54 87 116/78 100 07/22/18 19:24 79 121/76 99 07/22/18 19:00 82 123/79 98 07/22/18 18:55 83 98 07/22/18 18:22 97 F 88 17 111/67 92 - Laboratory Lab Statement: Any lab studies that have been ordered have been reviewed, and results considered in the medical decision making process. Back Pain Course/Dx - Course Course Of Treatment: Patient complains of pain in right gluteus radiating down right leg 2 days. History of sciatica. Denies trauma, fall, any other symptoms or pain. Patient ambulatory with pain. Denies urinary retention, incontinence, loss of sensation or function distally in bilateral lower extremities. Medical history is DM, COPD, CAD. Physical exam:Patient nontender to palpation in right gluteus or along spine. No masses or ecchymosis noted. Positive straight leg test right leg. Patient's pain is improved significantly with Valium. Rx for prednisone, Rx for Vicodin. - Diagnoses Provider Diagnoses: Sciatica Discharge - Sign-Out/Discharge Documenting (check all that apply): Patient Departure - Discharge Plan Condition: Stable Disposition: HOME Prescriptions: Diazepam TAB(*) [Valium TAB(*)] 5 mg PO BID 3 Days #5 tab MDD 2 tabs predniSONE TAB* [Deltasone 20 MG TAB*] 40 mg PO DAILY 5 Days #10 tab Patient Education Materials: Sciatica (ED) Referrals: Jamaal Garcia DO [Primary Care Provider] - Additional Instructions: Follow-up with primary care. Return to the ED for any new or worsening symptoms - Billing Disposition and Condition Condition: STABLE Disposition: Home
[2018-07-22 21:25] VITALS: BP 132/79
== END 2018-07-22 21:24 | disposition home or self-care (01) ==
LOC: ED 18:18
DX: M54.31 Sciatica, right side (principal); Z79.82 Long term (current) use of aspirin; M54.5 Low back pain; Z87.891 Personal history of nicotine dependence; E11.9 Type 2 diabetes mellitus without complications; E11.621 Type 2 diabetes mellitus with foot ulcer; L97.512 Non-pressure chronic ulcer of other part of right foot with fat layer exposed; Z79.4 Long term (current) use of insulin
CPT/HCPCS: 99282; A9270-GY; J7512

== ENCOUNTER 2018-10-25 00:52 | Observation (INO) | payer MEDICARE ==
[2018-10-25] MEDS ORDERED: NS 0.9% 1000 ML* 1,000 ML IV ONE (01:02)
--- OUTSIDE RECORDS SUMMARY | 2018-10-25 01:02 | XMS REPORT | Continuity of Care Document ---
:1965 External Reference #:[id number] Author Name Jamaal Garcia D.O. Address [address] [place] [address] Care Team Providers Name Role Phone HCP/LW on file Primary Care Physician Unavailable Payers Type Date Identification Numbers Payment Provider Subscriber Effective: Policy Number: [id number] [facility] Gabriel Chavez 2011 Services PayID: [id number] [id number] [place] [id number] Advance Directives Description No Information Available Problems Date Description Provider Status Onset: 01/26/2017 [...] Disorder Social History Type Date Description Comments Sex Unknown Lives With Spouse Lives With Daughter Valentino and her kids has no Lives With 11/30/2016 Friend benson Riley and family Work Status Disabled Social Security - for copd and card issues - went on it in 2008 Tobacco Use Start: Unknown End: Former Cigarette Smoker quit Jul 2017 Unknown ETOH Use Denies alcohol use Recreational Drug Use Denies Drug Use Tobacco Use Start: Unknown End: Patient is a former Unknown smoker Smoking Status Reviewed: 10/21/18 Patient is a former smoker Exercise Type/Frequency Exercises regularly Sun Exposure Does not use sunscreen Seat Belt/Car Seat Seat Belt Use - Yes Age 1st [place] 17 Years Old # [employer] 5-10 Allergies, Adverse Reactions, Alerts Date Description Reaction Status Severity Comments 01/18/2017 Zofran Active hives 07/08/2017 Levaquin Active vomiting Medications Medication Date Status Form Strength Qnty SIG Indications Ordering Provider Sulfamethoxazole/ 10/21 Hx Tablets 800-160mg 14tab 1 by mouth Radha Trimethoprim s twice a day Jamaal, - x 7 days D.O. 10/28 Neti Pot Kit 07/11 Active Kit 2300-700m 1unit use as [place], Sinus Wash/Clear manuel hollingsworth directed Jamaal, View Kettle D.O. Toujeo Max 05/30 Active Solution 300Unit/M 60ml 120 units E11.69 Radha Garciaostar Pen-Injec L injected Jamaal, t once daily D.O. increase by 2 u every 3 days if fasting glucose are > 110. Pantoprazole 05/26 Active Tablets 40mg 60tab 1 tablet by Radha Sodium DR edel mouth twice Jamaal, daily D.O. Tylenol 05/26 Active Tablets 325mg give 2 tablets by mouth [id number] as needed / otc Freestyle Test 02/03 Active Strips 200un or S[place]ch[place], its appropriate Jamaal, strips for D.O. patient's machine. use 1-4 times daily as directed. Freestyle 28G 01/22 Active 200un Use as Maria R Garcia its Directed For Jamaal, Diabetic D.O. Testing 1-4 Times Day Clopidogrel 11/04 Active Tablets 75mg 1 tablet by Dillan Bisulfate mouth daily DO Tomas Atorvastatin 08/20 Active Tablets 80mg 1 by mouth Unknown Calcium every evening Docusate Sodium 08/20 Active Capsules 100mg 1 cap by Unknown mouth twice a day as needed for constipation Furosemide 08/20 Active Tablets 20mg 180ta Take Two Sopcha bs Tablets By Jamaal, Mouth Every D.O. Day Carvedilol 08/05 Active Tablets 3.125mg 180ta Take One bs Tablet By Jamaal, Mouth Twice D.O. A Day Freestyle Lite 05/20 Active Device 1unit or any other E11.65 Radha, Blood Glucose s covered Jamaal, Monitoring System glucometer D.O. by her insurance. Lancets 05/20 Active Misc 200un use as E11.65 Radha Bullseye its directed for Abhay Hinton diabetic D.O. testing BD Pen 05/20 Active Misc 31G X 5 400un or Radha Needle/Mini/Ultra mm its appropriate Jamaal fine/31G X 3/16" needles for D.O. lantus pen. use up to 6/day, as directed, for insulin administrati on Novolog Flexpen 04/29 Active Solution 100Unit/M 45ml 15 units E11.69 Pen-Injec L before each Jamaal, t meal or per D.O. sliding scale Gabapentin Active Capsules 300mg 90cap 1 by mouth [place]chak, s daily Jamaal D.O. Aspirin Active 81mg 1 daily Unknown Children's /0000 Tradjenta Active Tablets 5mg 90tab Take One Sopchak, s Tablet By Jamaal, Mouth Every D.O. Day For Blood Sugar Control Fluconazole 10/10 Hx Tablets 150mg 1tabs take one B37.3 co tablet by Odell, - mouth as one M.D. 10/11 dose for yeast infection Lomotil 10/08 Hx Tablets 2.5-0.025 14tab take 1-2 R19.7 mg s tablets by Jamaal, - mouth 4 D.O. 10/15 times per day as needed for diarrhea Prochlorperazine 10/01 Hx Tablets 5mg 15tab take 1-2 R11.2 Silcoff, Maleate s tablets by Odell, - mouth every M.D. 10/21 6 hours as needed for nausea Acarbose 08/11 Hx Tablets 50mg 270ta take one [place]fr[place], bs tablet by Jamaal, - mouth three D.O. 08/31 times a day at the start of each main meal for type 2 diabetes Losartan 08/11 Hx Tablets 50mg 90tab take 1 S[place]chak, Potassium s tablet daily Jamaal, - in the D.O. 10/14 morning for diabetic kidney protection Amoxicillin/Clavu 07/11 Hx Tablets 875-125mg 20tab 1 by mouth Sopchak, lanate Potassium s twice a day Jamaal, - D.O. 07/21 Amoxicillin 03/19 Hx Tablets 500mg 60tab 2 by mouth J01.90 Pamelacojennifer, s three times Odell, - a day for 10 M.D. 04/02 days for sinusitis; start this if not feeling better in a few days Freestyle Lite 02/03 Hx Strips use up to E11.65 , 4-6x/day for Jamaal, - blood sugar D.O. 02/03 monitoring Amoxicillin 12/07 Hx Tablets 875mg 20tab 1 by mouth J01.90 Pamelacojennifer, s twice a day Odell, - x 10 days M.D. 12/17 for bacterial pharyngitis Fluconazole 12/07 Hx Tablets 150mg 2tabs 1 tabs by B37.9 Pamelacojennifer, mouth one Odell, - time a week M.D. 12/21 for infection Basaglar Kwikpen 11/19 Hx Solution 100Unit/M 120ml inject 60 E11.69 Pen-Injec L units 2 Jamaal, - t (two) times D.O. 05/30 daily, at same time every day; for blood sugar control; inc. by 2units every 3d if fbs > 110 Lisinopril 10/06 Hx Tablets 2.5mg 1 by mouth every day - 08/10 Coumadin 09/06 Hx Tablets 1mg 200ta 1 - 5 cha, bs tablets Jamaal, - daily as D.O. 12/06 directed. Breo 08/20 Hx as directed - 08/27 Breo Ellipta 08/20 Hx Aerosol 100-25mcg 1 puff into / lungs daily; - rinse mouth 12/06 out after use Lantus Solostar 08/20 Hx Solution 100Unit/M inject 40 Pen-Injec L units 2 - t (two) times 11/19 daily, at same time every day; for blood sugar control Ranexa 08/20 Hx Tablets 500mg 1 by mouth ER 12HR twice a day - 10/06 Coumadin 08/20 Hx Tablets 2mg 90tab take as s directed, - take 2 12/06 tablets by mouth daily Lisinopril 08/05 Hx Tablets 2.5mg 1 by mouth every day - 08/20 Spironolactone 08/05 Hx Tablets 25mg 90tab Take One s Tablet By Jamaal, - Mouth Every D.O. 10/14 Morning For High Blood Pressure Amoxicillin/Clavu 07/21 Hx Tablets 875-125mg 20tab 1 tab by J20.9 Silcoff, lanate Potassium s mouth twice Odell, - a day x10 M.D. Ventolin HFA 07/21 Hx Aerosol 108(90Bas 18uni Inhale Two J20.9 Silcoff, e) ts Puffs By Odell, - mcg/Act Mouth Every M.D. 02/01 4 To 6 Hours /2017 as Needed For Shortness Of Breath J84.9 [...] times E11 Sopchak, Test 02/03/2018 daily .65 Jamaal D.O. Incruse Ellipta 05/19/2017 - Hx Aerosol 62.5mcg inhale 1 puff Unknown 12/06/2017 /Inh by mouth daily for chronic obstructive lung disease Amoxicillin 04/19/2017 - Hx Capsules 500mg 90caps Take One MacQueen, 05/19/2017 Capsule By Alma Harris Three MD Times A Day x 30 [...] Hx Tablets 75mg 90tabs 1 by mouth Miguel Angelk, Bisulfate 08/05/2017 every day Jamaal, D.O. Furosemide - Hx Tablets 20mg 90tabs take 1 tablet Jeison Johnson 07/08/2017 by mouth Bogdan, daily. MChetan Ranexa - Hx Tablets ER 1000mg 180tabs 1 tablet twice [facility], 08/27/2017 12HR a day Jamaal, D.O. Ranitidine HCL - Hx Capsules 300mg 90caps 1 by mouth [facility], 08/31/2018 daily at Jamaal, bedtime D.O. Fish Oil - Hx Capsules 1000mg ingest 4 pills Unknown 02/18/2017 daily Atenolol - Hx Tablets 100mg 90tabs take one Jeison A. 08/20/2017 tablet by Klepack, mouth at M.D. bedtime for high blood pressure Isosorbide - Hx Tablets ER 60mg 90tabs take 1 tablet Jeison A. Mononitrate ER 08/20/2017 24HR by mouth every Klepack, morning for M.D. angina Humalog - Hx Solution 100Unit 10ml 15 units [facility], 04/29/2017 /ML before each Jamaal, meal or per D.O. sliding scale Levofloxacin - Hx Tablets 500mg Take One Unknown 07/07/2017 Tablet By Mouth Every Day Immunizations CPT Code Status Date Vaccine Lot # [id number] Given 09/01/2018 Influenza Virus Vaccine, Quadrivalent, Split, [id number] Preservative Free [id number] Given 07/08/2017 Influenza Virus Vaccine, Quadrivalent, Split, [id number] Preservative Free [id number] Given 01/18/2017 Adacel or Boostrix, TDaP [id number] Given 11/30/2016 Influenza Virus Vaccine, Quadrivalent, Split, Im Use U-Pneum Given 01/18/2009 Pneumococcal,Unspecified Vital Signs Date Vital Result Comment 10/21/2018 9:59am BP Systolic 118 mmHg BP Diastolic 78 mmHg Weight 171.00 lb with boots 10/10/2018 2:44pm BP Systolic 80 mmHg R arm sitting, RN; 80/60 w/ electronic cuff BP Diastolic 60 mmHg R arm sitting, RN; 80/60 w/ electronic cuff BP Systolic Recheck 104 mmHg R arm sitting BP Diastolic Recheck 70 mmHg R arm sitting Heart Rate 96 /min Body Temperature 97.5 F Weight 172.00 lb w/boots 10/01/2018 10:27am BP Systolic 112 mmHg BP Diastolic 70 mmHg Heart Rate 100 /min reg Respiratory Rate 14 /min not laboured Body Temperature 98.3 F Weight 180.00 lb with boots 09/01/2018 3:16pm BP Systolic 128 mmHg BP Diastolic 82 mmHg 08/11/2018 1:49pm BP Systolic 132 mmHg BP Diastolic 76 mmHg Weight 181.00 lb 07/11/2018 3:19pm BP Systolic 96 mmHg BP Diastolic 62 mmHg Body Temperature 97.8 F 05/30/2018 1:09pm BP Systolic 106 mmHg BP Diastolic 68 mmHg Weight 179.00 lb 03/19/2018 11:20am BP Systolic 120 mmHg BP Diastolic 76 mmHg Body Temperature 97.5 F Weight 171.00 lb 02/02/2018 2:31pm BP Systolic 102 mmHg BP Diastolic 62 mmHg Weight 177.00 lb with boots/jacket 12/07/2017 2:49pm BP Systolic 112 mmHg BP Diastolic 68 mmHg Body Temperature 98.0 F Height 64 inches 5'4" Weight 160.00 lb BMI (Body Mass Index) 27.5 kg/m2 10/07/2017 10:48am BP Systolic 94 mmHg BP Diastolic 50 mmHg Weight 165.00 lb 08/30/2017 11:50am BP Systolic 100 mmHg BP Diastolic 60 mmHg Weight 164.00 lb with boots 08/06/2017 3:31pm BP Systolic 98 mmHg BP Diastolic 62 mmHg Heart Rate 86 /min O2 % BldC Oximetry 93 % Weight 156.00 lb 07/21/2017 4:36pm BP Systolic 124 mmHg BP Diastolic 71 mmHg Heart Rate 82 /min O2 % BldC Oximetry 98 % Body Temperature 98.1 F Weight 154.00 lb w/shoes 07/08/2017 2:47pm BP Systolic 116 mmHg BP Diastolic 60 mmHg Weight 152.00 lb 05/20/2017 10:09am BP Systolic 138 mmHg BP Diastolic 74 mmHg Weight 157.00 lb 03/18/2017 1:57pm BP Systolic 146 mmHg BP Diastolic 80 mmHg Body Temperature 97.8 F Weight 156.00 lb 01/26/2017 9:30am BP Systolic 110 mmHg BP Diastolic 60 mmHg Height 64.5 inches 5'4.50" with walking boot to lt foot/shoe to rt f Weight 155.00 lb with walking boot to lt foot/shoe to rt foot BMI (Body Mass Index) 26.2 kg/m2 01/18/2017 11:19am BP Systolic 110 mmHg BP Diastolic 70 mmHg Weight 154.00 lb with walking boot 11/30/2016 9:32am BP Systolic 110 mmHg BP Diastolic 56 mmHg Weight 157.00 lb Results Test Date Facility Test Result H/L Range Note Laboratory test 10/11/2018 [facility] Stool Culture <pending> finding [phone] O&P Ova & Parasites Screen <pending> Fecal Lactoferrin (Stool WBC) <pending> C Difficile B PCR SEE RESULT BELOW 1 Comp Metabolic Panel 10/10/2018 [facility] Sodium 134 mmol/L Low 135- 145 [phone] Potassium 4.6 mmol/L N 3.5-5.0 Chloride 96 mmol/L Low 101-111 Co2 Carbon Dioxide 25 mmol/L N 22-32 Anion Gap 13 mmol/L High 2-11 Glucose 184 mg/dL High 70-100 Blood Urea Nitrogen 31 mg/dL High 6-24 Creatinine 1.61 mg/dL High 0.51-0.95 BUN/Creatinine Ratio 19.3 N 8-20 Calcium 9.3 mg/dL N 8.6-10.3 Total Protein 6.7 g/dL N 6.4-8.9 Albumin 3.1 g/dL Low 3.2-5.2 Globulin 3.6 g/dL N 2-4 Albumin/Globulin Ratio 0.9 Low 1-3 Total Bilirubin 0.50 mg/dL N 0.2-1.0 Alkaline Phosphatase 136 U/L High 34-104 Alt 15 U/L N 7-52 Ast 17 U/L N 13-39 Egfr Non- 33.3 >60 Egfr 40.4 >60 2 CBC Auto Diff 10/10/2018 [facility] White Blood 15.6 10^3/uL High 3.5 -10.8 [phone] Count Red Blood Count 4.50 10^6/uL N 4.00-5.40 Hemoglobin 12.9 g/dL N 12.0-16.0 Hematocrit 38 % N 35-47 Mean Corpuscular Volume 85 fL N 80-97 Mean Corpuscular Hemoglobin 29 pg N 27-31 Mean Corpuscular HGB Conc 34 g/dL N 31-36 Red Cell Distribution Width 14 % N 10.5-15 Platelet Count 387 10^3/uL N 150-450 Mean Platelet Volume 8.9 fL N 7.4-10.4 Abs Neutrophils 12.9 10^3/uL High 1.5-7.7 Abs Lymphocytes 1.7 10^3/uL N 1.0-4.8 Abs Monocytes 0.9 10^3/uL High 0-0.8 Abs Eosinophils 0.1 10^3/uL N 0-0.6 Abs Basophils 0.1 10^3/uL N 0-0.2 Abs Nucleated RBC 0 10^3/uL Granulocyte % 82.3 % Lymphocyte % 10.8 % Monocyte % 5.6 % Eosinophil % 0.8 % Basophil % 0.5 % Nucleated Red Blood Cells % 0 Laboratory test 10/01/2018 [facility] House Glucose Quantitative 429 finding Laboratory test 09/01/2018 [facility] House Occult Blood, F I T positive finding Urine Microalbumin 08/11/2018 [facility] Ur Microalbumin 308.3 Random [phone] (mg/L) Urine Creatinine 67.46 mg/dL Urine Microalbumin/Creatinine 457.0 High <31 Laboratory test 08/11/2018 In House Hemoglobin A1c 11.0 finding Basic Metabolic 07/22/2018 [facility] Sodium 133 mmol/L Low 135-145 Panel [phone] Potassium 4.5 mmol/L N 3.5-5.0 Chloride 99 mmol/L Low 101-111 Co2 Carbon Dioxide 23 mmol/L N 22-32 Anion Gap 11 mmol/L N 2-11 Glucose 437 mg/dL High 70-100 Blood Urea Nitrogen 33 mg/dL High 6-24 Creatinine 1.02 mg/dL High 0.51-0.95 BUN/Creatinine Ratio 32.4 High 8-20 Calcium 9.2 mg/dL N 8.6-10.3 Egfr Non- 56.5 >60 Egfr 68.3 >60 3 Laboratory test 07/03/2018 [facility] Throat NORMAL 4, 5 finding LABORATORY Culture THROAT FL [phone] Complete <SEE NOTE> Laboratory test 05/30/2018 [facility] Helico Pylori Negative Negative 6 finding [phone] Antigen- Stool Laboratory test 05/25/2018 [facility] Magnesium 2.0 mg/dL N 1.9-2.7 finding [phone] Amylase 27 U/L Low 29-103 Lipase 27 U/L N 11.0-82.0 Creatine Kinase(CK) 61 U/L N 10-223 Troponin-I (TnI) 0.07 ng/mL High <0.04 7 Lactic Acid 2.6 mmol/L High 0.5-2.0 8 B-Type Natriuretic Peptide BNP 139 pg/mL High 9 Comp Metabolic Panel 05/25/2018 [facility] Sodium 139 mmol/L N 135- 145 [phone] Potassium 4.1 mmol/L N 3.5-5.0 Chloride 102 mmol/L N 101-111 Co2 Carbon Dioxide 27 mmol/L N 22-32 Anion Gap 10 mmol/L N 2-11 Glucose 124 mg/dL High 70-100 Blood Urea Nitrogen 38 mg/dL High 6-24 Creatinine 1.17 mg/dL High 0.51-0.95 BUN/Creatinine Ratio 32.5 High 8-20 Calcium 10.6 mg/dL High 8.6-10.3 Total Protein 7.3 g/dL N 6.4-8.9 Albumin 3.8 g/dL N 3.2-5.2 Globulin 3.5 g/dL N 2-4 Albumin/Globulin Ratio 1.1 N 1-3 Total Bilirubin 0.40 mg/dL N 0.2-1.0 Alkaline Phosphatase 177 U/L High 34-104 Alt 16 U/L N 7-52 Ast 15 U/L N 13-39 Egfr Non- 48.2 >60 Egfr 58.3 >60 10 Laboratory test 05/25/2018 [facility] Partial 26.3 seconds N 26.0- 36.3 finding [phone] Thrombo Time PTT Inr/Protime 05/25/2018 [facility] Inr 0.83 N 0.77-1.02 [phone] CBC Auto Diff 05/25/2018 [facility] White Blood 9.8 10^3/uL N 3.5- 10.8 [phone] Count Red Blood Count 4.17 10^6/uL N 4.00-5.40 Hemoglobin 12.8 g/dL N 12.0-16.0 Hematocrit 37 % N 35-47 Mean Corpuscular Volume 88 fL N 80-97 Mean Corpuscular Hemoglobin 31 pg N 27-31 Mean Corpuscular HGB Conc 35 g/dL N 31-36 Red Cell Distribution Width 14 % N 10.5-15 Platelet Count 233 10^3/uL N 150-450 Mean Platelet Volume 8.9 um3 N 7.4-10.4 Abs Neutrophils 6.4 10^3/uL N 1.5-7.7 Abs Lymphocytes 2.6 10^3/uL N 1.0-4.8 Abs Monocytes 0.6 10^3/uL N 0-0.8 Abs Eosinophils 0.2 10^3/uL N 0-0.6 Abs Basophils 0.1 10^3/uL N 0-0.2 Abs Nucleated RBC 0 10^3/uL Granulocyte % 65.2 % N 38-83 Lymphocyte % 26.1 % N 25-47 Monocyte % 6.4 % N 0-7 Eosinophil % 1.6 % N 0-6 Basophil % 0.7 % N 0-2 Nucleated Red Blood Cells % 0.4 Laboratory test 02/21/2018 [facility] Point of Care 380 mg/dL High 70 -100 11 finding [phone] Glucose Rapid Influenza A 02/21/2018 [facility] Influenza A NEGATIVE Negative 12 & B Molecular [phone] Molecular Influenza B Molecular NEGATIVE Negative Laboratory test 02/02/2018 In House Hemoglobin A1c 11.5 finding Basic Metabolic 02/01/2018 [facility] Sodium 134 mmol/L Low 139-145 Panel [phone] Potassium 4.4 mmol/L N 3.5-5.0 Chloride 99 mmol/L Low 101-111 Co2 Carbon Dioxide 29 mmol/L N 22-32 Anion Gap 6 mmol/L N 2-11 Glucose 298 mg/dL High 70-100 Blood Urea Nitrogen 22 mg/dL N 6-24 Creatinine 0.84 mg/dL N 0.51-0.95 BUN/Creatinine Ratio 26.2 High 8-20 Calcium 9.7 mg/dL N 8.6-10.3 Egfr Non- 70.9 >60 Egfr 91.2 >60 13 CBC Auto Diff 02/01/2018 [facility] White Blood Count 7.6 10^3/uL N 3.5-10.8 [phone] Red Blood Count 4.29 10^6/uL N 4.0-5.4 Hemoglobin 12.9 g/dL N 12.0-16.0 Hematocrit 37 % N 35-47 Mean Corpuscular Volume 87 fL N 80-97 Mean Corpuscular Hemoglobin 30 pg N 27-31 Mean Corpuscular HGB Conc 35 g/dL N 31-36 Red Cell Distribution Width 14 % N 10.5-15 Platelet Count 199 10^3/uL N 150-450 Mean Platelet Volume 8.5 um3 N 7.4-10.4 Abs Neutrophils 4.9 10^3/uL N 1.5-7.7 Abs Lymphocytes 2.1 10^3/uL N 1.0-4.8 Abs Monocytes 0.4 10^3/uL N 0-0.8 Abs Eosinophils 0.1 10^3/uL N 0-0.6 Abs Basophils 0 10^3/uL N 0-0.2 Abs Nucleated RBC 0 10^3/uL Granulocyte % 64.5 % N 38-83 Lymphocyte % 27.7 % N 25-47 Monocyte % 5.5 % N 0-7 Eosinophil % 1.7 % N 0-6 Basophil % 0.6 % N 0-2 Nucleated Red Blood Cells % 0.1 Laboratory test finding 12/07/2017 In House Culture Throat Rapid negative Screen Culture Throat negative Inr/Protime 11/03/2017 [facility] Inr 2.47 High 0.77-1.02 [phone] Inr/Protime 10/27/2017 [facility] Inr 1.90 High 0.77-1.02 [phone] Inr/Protime 10/20/2017 [facility] Inr 1.48 High 0.77-1.02 14 [phone] Laboratory test 10/12/2017 [facility] Wound SEE RESULT 15, finding [phone] Culture/Sensi BELOW 16 Inr/Protime 10/11/2017 [facility] Inr 1.28 High 0.77-1.02 17 [phone] Laboratory test 10/07/2017 In House Hemoglobin A1c 8.6 finding Basic Metabolic 10/04/2017 [facility] Sodium 138 mmol/L N 133-145 Panel [phone] Potassium 4.6 mmol/L N 3.5-5.0 Chloride 99 mmol/L Low 101-111 Co2 Carbon Dioxide 29 mmol/L N 22-32 Anion Gap 10 mmol/L N 2-11 Glucose 320 mg/dL High 70-100 Blood Urea Nitrogen 27 mg/dL High 6-24 Creatinine 1.01 mg/dL High 0.51-0.95 BUN/Creatinine Ratio 26.7 High 8-20 Calcium 9.7 mg/dL N 8.6-10.3 Egfr Non- 57.3 >60 Egfr 73.7 >60 18 Inr/Protime 10/04/2017 [facility] Inr 1.89 High 0.77-1.02 19 [phone] Inr/Protime 09/27/2017 [facility] Inr 1.37 High 0.77-1.02 20 [phone] Inr/Protime 09/20/2017 [facility] Inr 4.08 High 0.89-1.11 [phone] Laboratory test 09/13/2017 [facility] Inr/Protime 3.11 High 0.89- 1.11 finding [phone] Laboratory test 09/03/2017 [facility] Inr/Protime 1.86 High 0.89- 1.11 finding [phone] Laboratory test 09/01/2017 [facility] Inr/Protime 1.63 High 0.89- 1.11 finding [phone] Laboratory test 08/30/2017 [facility] Inr/Protime 1.29 High 0.89- 1.11 finding [phone] Laboratory test 08/30/2017 In House Hemoglobin A1c 6.7 finding Laboratory test 08/23/2017 [facility] Inr/Protime 2.00 High 0.89- 1.11 finding [phone] Laboratory test 07/27/2017 [facility] B-Type 447 pg/mL High 21 finding [phone] Natriuretic Peptide BNP CBC Auto Diff 07/27/2017 [facility] White Blood 17.9 High 3.5-10.8 [phone] Count 10^3/uL Red Blood Count 4.90 10^6/uL N 4.0-5.4 Hemoglobin 14.9 g/dL N 12.0-16.0 Hematocrit 45 % N 35-47 Mean Corpuscular Volume 91 fL N 80-97 Mean Corpuscular Hemoglobin 31 pg N 27-31 Mean Corpuscular HGB Conc 34 g/dL N 31-36 Red Cell Distribution Width 15 % N 10.5-15 Platelet Count 293 10^3/uL N 150-450 Mean Platelet Volume 8 um3 N 7.4-10.4 Abs Neutrophils 15.7 10^3/uL High 1.5-7.7 Abs Lymphocytes 1.5 10^3/uL N 1.0-4.8 Abs Monocytes 0.5 10^3/uL N 0-0.8 Abs Eosinophils 0 10^3/uL N 0-0.6 Abs Basophils 0.1 10^3/uL N 0-0.2 Abs Nucleated RBC 0.01 10^3/uL N Granulocyte % 88.2 % High 38-83 Lymphocyte % 8.2 % Low 25-47 Monocyte % 3.0 % N 1-9 Eosinophil % 0.2 % N 0-6 Basophil % 0.4 % N 0-2 Nucleated Red Blood Cells % 0.1 N Laboratory test 07/27/2017 [facility] Lactic Acid 2.6 mmol/L High 0.5 -2.0 22 finding [phone] Comp Metabolic Panel 07/27/2017 [facility] Sodium 131 mmol/L Low 133- 145 [phone] Potassium 4.7 mmol/L N 3.5-5.0 Chloride 97 mmol/L Low 101-111 Co2 Carbon Dioxide 24 mmol/L N 22-32 Anion Gap 10 mmol/L N 2-11 Glucose 375 mg/dL High 70-100 Blood Urea Nitrogen 22 mg/dL N 6-24 Creatinine 0.93 mg/dL N 0.51-0.95 BUN/Creatinine Ratio 23.7 High 8-20 Calcium 9.3 mg/dL N 8.6-10.3 Total Protein 7.6 g/dL N 6.4-8.9 Albumin 3.7 g/dL N 3.2-5.2 Globulin 3.9 g/dL N 2-4 Albumin/Globulin Ratio 0.9 Low 1-3 Total Bilirubin 0.80 mg/dL N 0.2-1.0 Alkaline Phosphatase 165 U/L High 34-104 Alt 44 U/L N 7-52 Ast 200 U/L High 13-39 Egfr Non- 63.1 N >60 Egfr 81.1 N >60 23 CKMB 07/27/2017 [facility] CKMB ng/mL > 302.0 ng/mL High 0.6-6.3 [phone] Laboratory test 07/27/2017 [facility] Troponin-I > 82.00 ng/mL High < 0.04 finding [phone] (TnI) Creatine Kinase(CK) 2059 U/L High 10-223 Alcohol < 10 mg/dL N <10 Basic Metabolic Panel 07/27/2017 [facility] Sodium 137 mmol/L N 133- 145 [phone] Potassium 4.1 mmol/L N 3.5-5.0 Chloride 102 mmol/L N 101-111 Co2 Carbon Dioxide 29 mmol/L N 22-32 Anion Gap 6 mmol/L N 2-11 Glucose 300 mg/dL High 70-100 Blood Urea Nitrogen 15 mg/dL N 6-24 Creatinine 0.69 mg/dL N 0.51-0.95 BUN/Creatinine Ratio 21.7 High 8-20 Calcium 8.9 mg/dL N 8.6-10.3 Egfr Non- 89.0 N >60 Egfr 114.5 N >60 24 Urine Microalbumin 07/08/2017 [facility] Urine Creatinine 42.72 mg/dL N Random [phone] Ur Microalbumin (mg/L) 435.3 mg/L N Urine Microalbumin/Creatinine 1018.9 ug/mg High <31 Laboratory test 05/25/2017 [facility] B-Type 239 pg/mL High 25 finding [phone] Natriuretic Peptide BNP Laboratory test 05/25/2017 [facility] Point of Care 305 mg/dL High 70 -100 26 finding [phone] Glucose Basic Metabolic 05/21/2017 [facility] Sodium 135 mmol/L N 133-14 Panel [phone] Potassium 3.7 mmol/L N 3.5-5.0 Chloride 105 mmol/L N 101-111 Co2 Carbon Dioxide 22 mmol/L N 22-32 Anion Gap 8 mmol/L N 2-11 Glucose 233 mg/dL High 70-100 Blood Urea Nitrogen 28 mg/dL High 6-24 Creatinine 0.87 mg/dL N 0.51-0.95 BUN/Creatinine Ratio 32.2 High 8-20 Calcium 9.0 mg/dL N 8.6-10.3 Egfr Non- 68.1 N >60 Egfr 87.6 N >60 27 CBC Auto Diff 05/21/2017 [facility] White Blood Count 6.8 10^3/uL N 3.5-10.8 [phone] Red Blood Count 4.45 10^6/uL N 4.0-5.4 Hemoglobin 13.4 g/dL N 12.0-16.0 Hematocrit 39 % N 35-47 Mean Corpuscular Volume 89 fL N 80-97 Mean Corpuscular Hemoglobin 30 pg N 27-31 Mean Corpuscular HGB Conc 34 g/dL N 31-36 Red Cell Distribution Width 17 % High 10.5-15 Platelet Count 216 10^3/uL N 150-450 Mean Platelet Volume 9 um3 N 7.4-10.4 Abs Neutrophils 3.8 10^3/uL N 1.5-7.7 Abs Lymphocytes 2.4 10^3/uL N 1.0-4.8 Abs Monocytes 0.3 10^3/uL N 0-0.8 Abs Eosinophils 0.1 10^3/uL N 0-0.6 Abs Basophils 0 10^3/uL N 0-0.2 Abs Nucleated RBC 0 10^3/uL N Granulocyte % 56.5 % N 38-83 Lymphocyte % 35.7 % N 25-47 Monocyte % 5.1 % N 1-9 Eosinophil % 2.1 % N 0-6 Basophil % 0.6 % N 0-2 Nucleated Red Blood Cells % 0.1 N Laboratory test 05/20/2017 In House Hemoglobin A1c 10.0 finding Laboratory test 03/02/2017 [facility] Wound Culture/Sensi SEE RESULT 28 finding [phone] BELOW Tissue Culture & Sensitiv SEE RESULT BELOW 29 Laboratory test finding 01/26/2017 [facility] Cytology SEE RESULT BELOW 30 [phone] Human Papilloma Virus Rna Negative N Negative 31 Laboratory test finding 11/30/2016 In House Hemoglobin A1c 9.7 1 SEE RESULT BELOW Name: GABRIEL CHAVEZ : [address]: Odell Bear MD Acct: [id number] Unit: [id number] AGE: 53 Location: [facility] Re10/11/18 SEX: F Status: REG REF SPEC: [id number] KYRA: 10/11/18 [facility] DR: Odell Bear MD REQ: [id number] RECD: 10/11/18 STATUS: COMP _ SOURCE: STOOL SPDESC: ORDERED: Jomar barcenas PCR, Stool Culture, Fecal Lactoferr, O P: Niko/Jayne Procedure Result Reported Site Stool Culture Final 10/13/18- 0853 ML Result No enteric pathogens isolated Testing for Salmonella, Shigella, Aeromonas, Plesiomonas, Yersinia and Campylobacter are included in a Stool Culture. Vibrio spp not routinely tested for in a stool culture. If testing is desired, please request specifically when placing test order. Sensitivities not routinely performed on stool isolates, as antibiotics may prolong the carriage rate of bacteria. Please contact the microbiology lab if sensitivities are required. Stool Specimen Description Final 10/11/18- 193 ML Stool Color Brown Stool Form Nonformed Stool Consistency Liquid Shiga Toxin 1 2 Final 10/12/18- 1154 ML Organism 1 Negative Shiga Toxin 1 2 Immunochromatographic Assay C. difficile PCR Final 10/11/18- 1943 ML Organism 1 027 Presumptive NEGATIVE Organism 2 Toxigenic C.diff NEGATIVE Fecal Lactoferrin (Stool WBC) Final 10/12/18- 1046 ML CONTINUED ON NEXT PAGE DEPARTMENT OF PATHOLOGY, [address] [place] [address] Mg Ruff M.D. Director [facility] # [id number] Patient: GABRIEL CHAVEZ [id number] (Continued) Specimen: [id number] Collected: 10/11/18 Received: 10/11/18 (Continued) Procedure Result Reported Site Fecal Lactoferrin (Stool WBC) Final (continued) 10/12/18- 1046 Fecal Lactoferrin Negative by Immunoassay TEST LIMITATIONS: Assay detects elevated levels of lactoferrin released from fecal leukocytes as a marker of intestinal inflammation. The test may not be appropriate in immunocompromised persons. Fecal samples from breast fed infants should not be used with this assay. O P: Giardia/Cryptospor Screen Final 10/12/18- 1134 ML Organism 1 Neg Cryptosporidium/Giardia Giardia and cryptosporidium antigen testing performed by enzyme immunoassay. If patient is immunocompromised or has traveled to or is from a developing country, a full ova and parasite exam with microscopic (OPMIC) is recommended. All samples will be held 21 days in case full ova and parasite testing is requested. Contact the Microbiology Department at [phone]. TEST LIMITATIONS: As with all diagnostic procedures, the results obtained should be used in conjunction with other clinical information available the physician, including confirmation by another method. Negative results can occur in samples containing antigen below lower limits of detection of the assay. One negative specimen does not rule out the possibility of a parasitic infection. To improve detection it is recommended that three specimens be collected on separate days over a period of not more than seven days. The use of colonic washes, aspirates or other diluted sample types has not been established and could affect the performance of the assay. Stool samples contaminated with an oily or particulate base (eg. Barium, mineral oil etc.) could interfere with the test and are not recommended. * ML - Main Lab . END OF REPORT DEPARTMENT OF PATHOLOGY, [address] [place] [address] Mg Ruff M.D. Director [facility] # [id number] 2 Because ethnic data is not always readily [...] 15-29 5 Kidney failure <15 (or dialysis) 3 Because ethnic data is not always readily [...] 15-29 5 Kidney failure <15 (or dialysis) 4 JULIO THROAT, FACE HURTS 5 NORMAL THROAT DICKSON 6 Test Performed by: [facility] [address] [place] [address] 7 Result TnIDx:0.07 Called to [id number] at: 00:01:40 by:[id number] Read back by: [id number] Critical Result LACT:2.6 Called to [id number] at: 00:00:38 by:[id number] Read back by:[id number] [facility] Severe Sepsis and Septic Shock Management Bundle Measure requires all lactic acids initially measuring >2.0 mmol/L be repeated. 9 >100 to <200 pg/mL: likely compensated congestive heart failure (CHF) 200 to 400 pg/mL: likely moderate CHF >400 pg/mL: likely moderate to severe CHF 10 Because ethnic data is not always [...] 5 Kidney failure <15 (or dialysis) 11 Trip Motor Operator: [id number] 12 Trip Motor Operator: [id number] 13 Because ethnic data is not always readily [...] 15-29 5 Kidney failure <15 (or dialysis) 14 Please note the change in INR reference range effective 17. 15 SURGICAL WOUND LEFT POSTERIOR LEG-INITIAL/OPEN-PER REQ 16 SEE RESULT BELOW Name: AGUS CHAVEZTAHIR Irizarry : [address]: Uri Buchanan MD Acct: [id number] Unit: [id number] AGE: 52 Location: WOUND Re10/12/17 SEX: F Status: REG REF SPEC: [id number] KYRA: 10/12/17-[address] [facility] [address]: Uri Buchanan MD REQ: [id number] RECD: 10/12/17-1217 STATUS: MJ VINSON DR: Jamaal Garcia DO _ SOURCE: LEG,LEFT [...] performed at Main Lab DEPARTMENT OF PATHOLOGY, [address] [place] [address] Mg Ruff M.D. Director [facility] # [id number] Patient: GABRIEL CHAVEZ [id number] (Continued) Specimen: [id number] Collected: 10/12/17 Received: 10/12/17 (Continued) Procedure Result Reported Site Wound/Misc Culture Final (continued) 10/14/17- 1100 1. STAPHYLOCOCCUS AUREUS (continued) M.I.C. RX --------- ------ * Ampicillin/Sulbactam-Deduced S Cefazolin-Deduced S * These antibiotics are not available in the [facility] Formulary Contact the Microbiology Department for any additional antibiotic reporting. * ML - MAIN LAB ([facility]) . END OF REPORT * ML=Testing performed at Main Lab DEPARTMENT OF PATHOLOGY, [address] [place] [address] Mg Ruff M.D. Director [facility] # [id number] 17 Please note the change in INR reference range effective 17. 18 Because ethnic data is not always readily [...] 15-29 5 Kidney failure <15 (or dialysis) 19 Please note the change in INR reference range effective 17. 20 Please note the change in INR reference range effective 17. 21 >100 to <200 pg/mL: likely compensated congestive heart failure (CHF) 200 to 400 pg/mL: likely moderate CHF >400 pg/mL: likely moderate to severe CHF 22 Critical Result LACT:2.6 Called to JOSE at: 23:08:02 by:[id number] Read back by:JOSE [facility] Severe Sepsis and Septic Shock Management Bundle Measure requires all lactic acids initially measuring >2.0 mmol/L be repeated. 23 Because ethnic data is not always readily [...] 15-29 5 Kidney failure <15 (or dialysis) 24 Because ethnic data is not always [...] 5 Kidney failure <15 (or dialysis) 25 >100 to <200 pg/mL: likely compensated congestive heart failure (CHF) 200 to 400 pg/mL: likely moderate CHF >400 pg/mL: likely moderate to severe CHF 26 Trip Motor Operator: [id number] 27 Because ethnic data is not always readily [...] 15-29 5 Kidney failure <15 (or dialysis) 28 SEE RESULT BELOW Name: GABRIEL CHAVEZ : [address]: Uri Buchanan MD Acct: [id number] Unit: [id number] AGE: 51 Location: WOUND Re03/02/17 SEX: F Status: REG REF SPEC: [id number] KYRA: 03/02/[address]: Uri Buchanan MD REQ: [id number] RECD: 03/02/17 STATUS: COMP RUDI DR: Jeison Mcfadden MD _ SOURCE: FOOT,LEFT [...] performed at Main Lab DEPARTMENT OF PATHOLOGY, [address] [place] [address] Mg Ruff M.D. Director [facility] # [id number] Patient: GABRIEL CHAVEZ [id number] (Continued) Specimen: [id number] Collected: 03/02/17 Received: 03/02/17 (Continued) Procedure Result [...] reporting. * ML - MAIN LAB ([facility]) . END OF REPORT * ML=Testing performed at Main Lab DEPARTMENT OF PATHOLOGY, [address] [place] [address] Mg Ruff M.D. Director [facility] # [id number] 29 SEE RESULT BELOW Name: ANNYJOANIEZEGABRIEL : [address]: Uri Buchanan MD Acct: [id number] Unit: [id number] AGE: 51 Location: WOUND Re03/02/17 SEX: F Status: REG REF SPEC: [id number] KYRA: 03/02/[address]: Uri Buchanan MD REQ: [id number] RECD: 03/02/17 STATUS: MJ GRIJALVA DR: Jeison [...] FOR FURTHER IDENTIF[place] [address] for sensitivity testing for Morganella morganii. 2. PROTEUS PENNERI M.I.C. RX --------- ------ Ampicillin >=32 R Cefazolin >=64 R Cefepime <=1 S Ceftriaxone <=1 S CONTINUED ON NEXT PAGE * ML=Testing performed at Main Lab DEPARTMENT OF PATHOLOGY, [address] [place] [address] Mg Ruff M.D. Director [facility] # [id number] Patient: GABRIEL CHAVEZ [id number] (Continued) Specimen: [id number] Collected: 03/02/17 Received: 03/02/17 (Continued) Procedure Result Reported Site Tissue Culture Final (continued) 03/06/17900 2. PROTEUS PENNERI (continued) MukulIWilfredoCWilfredo RX --------- ------ Ciprofloxacin <=0.25 S Gentamicin <=1 S Levofloxacin <=0.12 S Meropenem <=0.25 S Nitrofurantoin 128 R Tetracycline >=16 R Pipercillin/Tazobactam <=4 S Trimethoprim/Sulfamethoxazole <=20 S Amoxicillin/Clavulanic Acid 4 S Aztreonam <=1 S Contact the Microbiology Department for any additional antibiotic reporting. * ML - MAIN LAB ([facility]) . END OF REPORT * ML=Testing performed at Main Lab DEPARTMENT OF PATHOLOGY, [address] [place] [address] Mg Ruff M.D. Director [facility] # [id number] 30 SEE RESULT BELOW Name: GABRIEL CHAVEZ : [address]: Latia SAEED Acct: [id number] Unit: [id number] AGE: 51 Location: [facility] Re01/26/17 SEX: F Status: REG REF SPEC: [id number] KYRA: 01/26/17-[address]: Latia SAEED REQ: [id number] RECD: 01/26/17013 STATUS: SOUT _ ORDERED: IMAGE ANALYSIS, HPV/Thin Prep COMMENTS: [id number] FINAL DIAGNOSIS Negative for Intraepithelial lesion or [...] 66, and 68. Signed (signature on file) SAYM Lanier (ASC) 01/27 1502 This Pap test was evaluated with the assistance of the [employer] Test Imaging System. Due to cytologic findings at the chief technician microscope, comprehensive manual rescreening by a Carpenter'S Helper may be required. The Pap Smear is [...] performed at Main Lab RUN DATE: 01/27/17 [facility] LAB LIVE PAGE 1 Patient: GABRIEL CHAVEZ [id number] (Continued) DEPARTMENT OF PATHOLOGY, [address] [place] [address] Mg Ruff M.D. Director [facility] # [id number] 31 The high-risk HPV types detected by the assay include: 16, 18, 31, 33, 35, 39, 45, 51, 52, 56, 58, 59, 66, and 68. Procedures Date Code Description Status 02/02/2018 [id number] Diabetic Foot Exam Completed 11/04/2017 70777 Anticoagulant MGMT For Patient Taking Warfarin, Inc Completed Review & Intr 10/27/2017 97303 Anticoagulant MGMT For Patient Taking Warfarin, Inc Completed Review & Intr 07/21/2017 06490 Inhalation Therapy Completed 03/18/2017 93793 X-Ray Chest Two Views Completed 02/22/2017 11941950 Mammogram Completed 01/18/2017 38124 Electrocardiogram Complete Completed Encounters Type Date Location Provider Dx Diagnosis Office Visit 10/21/2018 Main Office Jamaal Garcia, R19.7 Diarrhea, unspecified 9:45a D.O. 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 vomiting, unspecified R19.7 Diarrhea, unspecified E11.65 Type 2 diabetes mellitus with hyperglycemia Z79.4 snf (current) use of insulin I10 Essential (primary) hypertension B37.3 Candidiasis of vulva and vagina Office Visit 10/01/2018 10:15a Main Office Odell Bear, R11.2 Nausea with M.D. vomiting, unspecified R19.7 Diarrhea, unspecified E11.65 Type 2 diabetes mellitus with hyperglycemia Office Visit 09/01/2018 2:30p Main Office Jamaal Garcia, Z12.11 Encounter for D.O. screening for malignant neoplasm of colon E11.65 Type 2 diabetes mellitus with hyperglycemia Z79.4 snf (current) use of insulin I10 Essential (primary) hypertension I70.234 Athscl [place] art of right leg w ulcer of heel and midfoot Z23 Encounter for immunization E11.621 Type 2 diabetes mellitus with foot ulcer Office Visit 08/11/2018 1:30p Main Office Jamaal Garcia, E11.65 Type 2 diabetes D.O. mellitus with hyperglycemia Z79.4 snf (current) use of insulin I10 Essential (primary) hypertension I70.234 Athscl [place] art of right leg w ulcer of heel and midfoot E11.69 Type 2 diabetes mellitus with other specified complication Office Visit 07/11/2018 3:00p Main Office Jamaal Garcia D.O. R07.0 Pain in throat J01.00 Acute maxillary sinusitis, unspecified J02.9 Acute pharyngitis, unspecified E11.69 Type 2 diabetes mellitus with other specified complication Z79.4 snf (current) use of insulin L97.519 Non-prs chronic ulcer oth prt right foot w unsp severity I10 Essential (primary) hypertension E11.621 Type 2 diabetes mellitus with foot ulcer Office Visit 05/30/2018 12:55p Main Office Jamaal Garcia, E11.69 Type 2 diabetes D.O. mellitus with other specified complication Z79.4 snf (current) use of insulin I50.22 Chronic systolic (congestive) heart failure I25.10 Athscl heart disease of [place] coronary artery w/o ang pctrs I70.234 Athscl [place] art of right leg w ulcer of heel and midfoot I25.83 Coronary atherosclerosis due to lipid rich plaque I10 Essential (primary) hypertension K21.9 Gastro-esophageal reflux disease without esophagitis R07.89 Other chest pain Office Visit 03/19/2018 11:00a Main Office Odell Bear M.D. R07.0 Pain in throat H92.03 Otalgia, bilateral R51 Headache J01.90 Acute sinusitis, unspecified Office Visit 02/02/2018 2:30p Main Office Jamaal Garcia, E11.69 Type 2 diabetes D.O. 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 unspecified B37.9 Candidiasis, unspecified I10 Essential (primary) hypertension R07.0 Pain in throat Office Visit 10/07/2017 10:30a Main Office Jamaal Garcia, E11.69 Type 2 diabetes D.O. 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 mellitus with hyperglycemia Z23 Encounter for immunization Z41.8 [facility] 05/20/2017 9:45a Main Office Jamaal Garcia, E11.65 Type 2 diabetes D.O. mellitus with hyperglycemia Office Visit 03/18/2017 1:45p Main Office Jeison Goodwin Cough Nichelle Mcfadden R91.8 Other nonspecific abnormal finding of lung field J84.9 Interstitial pulmonary disease, unspecified Office Visit 01/26/2017 9:25a Main Office Latia Monsalve, Z01.419 Encntr for window cutter PA exam (general) (routine) w/o abn findings Z12.4 Encounter for screening for malignant neoplasm of cervix Z12.31 Encntr screen mammogram for malignant neoplasm of breast E11.65 Type 2 diabetes mellitus with hyperglycemia I10 Essential (primary) hypertension F17.210 Nicotine dependence, cigarettes, uncomplicated L97.429 Non-prs chronic ulcer of left heel and midfoot w unsp severt E11.621 Type 2 diabetes mellitus with foot ulcer Office Visit 01/18/2017 11:15a Main Office Jeison Johnson E11.65 Type 2 diabetes Nichelle Mcfadden mellitus with hyperglycemia I10 Essential (primary) hypertension Z71.89 Other specified counseling I25.10 Athscl heart disease of [place] coronary artery w/o ang pctrs L97.529 Non-pressure chronic ulcer oth prt left foot w unsp severity E11.621 Type 2 diabetes mellitus with foot ulcer 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 at Main Vhhrbb2610/21/2018 - Jamaal Garcia D.O.R19.7 Diarrhea, unspecifiedFollow up:as xbcxufjpeV77.2 Nausea with vomiting, szdazqonscsT51 Essential (primary) cmomcwgreisyB14.65 Type 2 diabetes mellitus with gcoabttpruopoK25.4 snf ( current) use of pblrpttI84.234 Atherosclerosis of [place] arteries of right leg with jsahwpoY07.0 Frequency of micturition
[2018-10-25] MEDS ORDERED: Famotidine TAB* 20 MG PO ONE (01:03)
[2018-10-25] MEDS ORDERED: Al Hydrox/Mg Hydrox/Simet LIQ* 30 ML UDC PO ONE (01:03)
--- OUTSIDE RECORDS SUMMARY | 2018-10-25 01:03 | XMS REPORT | Continuity of Care Document ---
:1965 External Reference #:[id number] Author Name Odell Bear M.D. Address [address] [facility] [address] [place] [address] Care Team Providers Name Role Phone HCP/LW on file Primary Care Physician Unavailable Payers Type Date Identification Numbers Payment Provider Subscriber Effective: Policy Number: [id number] [facility] Gabriel Chavez 2011 Services PayID: [id number] [address] [place] [address] Advance Directives Description No Information Available Problems [...] a former Unknown smoker Smoking Status Reviewed: 09/01/18 Patient is a former smoker Exercise Type/Frequency Exercises regularly Sun Exposure Does not use sunscreen Seat Belt/Car Seat Seat Belt Use - Yes Age 1st [place] 17 Years Old # [employer] 5-10 Allergies, Adverse Reactions, Alerts Date Description Reaction Status Severity Comments 01/18/2017 Zofran Active hives 07/08/2017 Levaquin Active vomiting Medications Medication Date Status Form Strength Qnty SIG Indications Ordering Provider Prochlorperazine 10/01 Hx Tablets 5mg 15tab take 1-2 R11.2 Silcoff, Maleate s tablets by Odell, - mouth every M.D. 10/06 6 hours as needed for nausea Losartan 08/11 Active Tablets 50mg 90tab take 1 Radha Potassium s tablet daily Jamaal, in the D.O. morning for diabetic kidney protection Neti Pot Kit 07/11 Active Kit 2300-700m 1unit use as Radha, Sinus Wash/Clear g edel directed Jamaal, View Kettle D.O. Toujeo Max 05/30 Active Solution 300Unit/M 60ml 120 units E11.69 Radha Solostar Pen-Injec L injected Jamaal, t once daily D.O. increase by 2 u every 3 days if fasting glucose are > 110. Pantoprazole 05/26 Active Tablets 40mg 60tab 1 tablet by Heath Garcia DR hollingsworth mouth twice Jamaal, daily D.O. Tylenol 05/26 Active Tablets 325mg give 2 Unknown tablets by mouth d1pmbek as needed / otc Freestyle Test 02/03 Active Strips 200un or Radha, its appropriate Jamaal, strips for D.O. patient's machine. use 1-4 times daily as directed. Freestyle 28G 01/22 Active 200un Use as Maria R Garcia its Directed For Jamaal, Diabetic D.O. Testing 1-4 Times Day Clopidogrel 11/04 Active Tablets 75mg 1 tablet by Dillan Bisulfate mouth daily Tomas, DO Atorvastatin 08/20 Active Tablets 80mg 1 by [...] By Jamaal, Mouth Twice D.O. A Day Spironolactone 08/05 Active Tablets 25mg 90tab Take One s Tablet By Jamaal, Mouth Every D.O. Morning For High Blood Pressure Freestyle Lite 05/20 Active Device 1unit or any other E11.65 Radha, Blood Glucose s covered Jamaal, Monitoring System glucometer D.O. by her insurance. Lancets 05/20 Active Misc 200un use as E11.65 Leandra Garciae its directed for Abhay Hinton diabetic D.O. testing BD Pen 05/20 Active Misc 31G X 5 400un or Radha, Needle/Mini/Ultra /2016 mm its appropriate Jamaal fine/31G X 3/16" needles for D.O. lantus pen. use up to 6/day, as directed, for insulin administrati on Novolog Flexpen 04/29 Active Solution 100Unit/M 45ml 15 units E11.69 Pen-Injec L before each Jamaal, t meal or per D.O. sliding scale Gabapentin Active Capsules 300mg 90cap 1 by mouth Sopchak, s daily Jamaal, D.O. Aspirin Active 81mg 1 daily Unknown Children's /0000 Tradjenta Active Tablets 5mg 90tab Take One Sopchak, s Tablet By Jamaal, Mouth Every D.O. Day For Blood Sugar Control Acarbose 08/11 Hx Tablets 50mg 270ta take one bs tablet by Jamaal, - mouth three D.O. 08/31 times a day at the start of each main meal for type 2 diabetes Amoxicillin/Clavu 07/11 Hx Tablets 875-125mg 20tab 1 by mouth Sophamletk, lanate s twice a day Jamaal, - D.O. 07/21 Amoxicillin 03/19 Hx Tablets 500mg 60tab 2 by mouth J01.90 Silcoff, s three times Odell, - a day for 10 M.D. 04/02 days for sinusitis; start this if not feeling better in a few days Freestyle Lite 02/03 Hx Strips use up to E11.65 , 4-6x/day for Jamaal, - blood sugar D.O. 02/03 monitoring Amoxicillin 12/07 Hx Tablets 875mg 20tab 1 by mouth J01.90 Pamelacoff, s twice a day Odell, - x 10 days M.D. 12/17 for bacterial pharyngitis Fluconazole 12/07 Hx Tablets 150mg 2tabs 1 tabs by B37.9 edwige, mouth one Odell, - time a week M.D. 12/21 for yeast infection Basaglar Kwikpen 11/19 Hx Solution 100Unit/M 120ml inject 60 E11.69 Pen-Injec L units 2 Jamaal, - t (two) times D.O. 05/30 daily, at same time every day; for blood sugar control; inc. by 2units every 3d if fbs > 110 Lisinopril 10/06 Hx Tablets 2.5mg 1 by mouth Unknown every day - 08/10 Coumadin 09/06 Hx Tablets 1mg 200ta 1 - 5 bs tablets Jamaal, - daily as D.O. 12/06 directed. Breo 08/20 Hx as directed - 08/27 Breo Ellipta 08/20 Hx Aerosol 100-25mcg 1 puff into Unknown /Inh lungs daily; - rinse mouth 12/06 [...] 1 by mouth every day - 08/20 Amoxicillin/Clavu 07/21 Hx Tablets 875-125mg 20tab 1 tab by [id number] Santiagocojennifer, lanate Potassium s mouth twice Odell, - [...] Hx Tablets 40mg 30tabs 1 by mouth Dillan Calcium 08/27/2017 every day for Tomas, DO high cholesterol Zyban 02/18/2017 - Hx Tablets ER 150mg 60tabs 1 tablet by Dillan, 08/20/2017 12HR mouth twice Tomas DO daily Lantus Solostar 11/30/2015 - Hx Solution 100Unit 100ml 40 unit every Sopchak, 08/27/2017 Pen-Inject /ML night 36 units Jamaal, every 3 days D.O. increase morning lantus dose by 2 units until fasting glucose <110. mdd 100u/day Clopidogrel - Hx Tablets 75mg 90tabs 1 by mouth Radha, Bisulfate 08/05/2017 every day Clay Hinton Furosemide - Hx Tablets 20mg 90tabs take 1 tablet Jeison Johnson 07/08/2017 by mouth Bogdan, daily. M.D. Ranexa - Hx Tablets ER 1000mg 180tabs 1 tablet twice Radha, 08/27/2017 12HR a day Clay Hinton Ranitidine HCL - Hx Capsules 300mg 90caps 1 by mouth Radha, 08/31/2018 daily at Jamaal, bedtime D.O. Fish Oil - Hx Capsules 1000mg ingest 4 pills Unknown 02/18/2017 daily Atenolol - Hx Tablets 100mg 90tabs take one Jeison Johnson 08/20/2017 tablet by Bogdan, mouth at M.D. bedtime for high blood pressure Isosorbide - Hx Tablets ER 60mg 90tabs take 1 tablet Jeison A. Mononitrate ER 08/20/2017 24HR by mouth every Klepack, morning for M.D. angina Humalog - Hx Solution 100Unit 10ml 15 units Sopchak, 04/29/2017 /ML before each Jamaal, meal or per D.O. sliding scale Levofloxacin - Hx Tablets 500mg Take One Unknown 07/07/2017 Tablet By Mouth Every Day Immunizations CPT Code Status Date Vaccine Lot # [id number] Given 09/01/2018 Influenza Virus Vaccine, Quadrivalent, Split, [id number] Preservative Free [id number] Given 07/08/2017 Influenza Virus Vaccine, Quadrivalent, Split, [id number] Preservative Free 06387 Given 01/18/2017 Adacel or Boostrix, TDaP [id number] Given 11/30/2016 Influenza Virus Vaccine, Quadrivalent, Split, Im Use U-Pneum Given 01/18/2009 Pneumococcal,Unspecified Vital Signs Date Vital Result Comment 10/01/2018 10:27am BP Systolic 112 mmHg BP [...] Test Result H/L Range Note Laboratory test 10/01/2018 In House Glucose 429 finding Quantitative Urine Microalbumin 08/11/2018 [facility] Ur Microalbumin 308.3 Random [phone] (mg/L) Urine Creatinine 67.46 mg/dL Urine Microalbumin/Creatinine 457.0 High <31 Laboratory test 08/11/2018 In House Hemoglobin A1c 11.0 finding Basic Metabolic 07/22/2018 [facility] Sodium 133 mmol/L Low 135-145 Panel [phone] Potassium 4.5 mmol/L N 3.5-5.0 Chloride 99 mmol/L Low 101-111 Co2 Carbon Dioxide 23 mmol/L N 22-32 Anion Gap 11 mmol/L N 2-11 Glucose 437 mg/dL High 70-100 Blood Urea Nitrogen 33 mg/dL High 6-24 Creatinine 1.02 mg/dL High 0.51-0.95 BUN/Creatinine Ratio 32.4 High 8-20 Calcium 9.2 mg/dL N 8.6-10.3 Egfr Non- 56.5 >60 Egfr 68.3 >60 1 Laboratory test 07/03/2018 [facility] Hosp. Throat NORMAL 2, 3 finding LABORATORY Culture THROAT FL [phone] Complete <SEE NOTE> Laboratory test 05/30/2018 [facility] [place] Pylori Negative Negative 4 finding [phone] Antigen- Stool Laboratory test 05/25/2018 [facility] Magnesium 2.0 mg/dL N 1.9-2.7 finding [phone] Amylase 27 U/L Low 29-103 Lipase 27 U/L N 11.0-82.0 Creatine Kinase(CK) 61 U/L N 10-223 Troponin-I (TnI) 0.07 ng/mL High <0.04 5 Lactic Acid 2.6 mmol/L High 0.5-2.0 6 B-Type Natriuretic Peptide BNP 139 pg/mL High 7 Comp Metabolic Panel 05/25/2018 [facility] Sodium 139 mmol/L N 135- 145 [phone] Potassium 4.1 mmol/L N 3.5-5.0 Chloride 102 [...] Egfr Non- 48.2 >60 Egfr 58.3 >60 8 Laboratory test 05/25/2018 [facility] Partial 26.3 seconds N 26.0- 36.3 finding [phone] Thrombo Time PTT Inr/Protime 05/25/2018 [facility] Inr 0.83 N 0.77-1.02 [phone] CBC Auto Diff 05/25/2018 [facility] White Blood 9.8 10^3/uL N 3.5- 10.8 [phone] Count Red Blood Count 4.17 10^6/uL N [...] 0-2 Nucleated Red Blood Cells % 0.4 Rapid Influenza A 02/21/2018 [facility] Influenza A NEGATIVE Negative 9 & B Molecular [phone] Molecular Influenza B Molecular NEGATIVE Negative Laboratory test 02/21/2018 [facility] Point of Care 380 mg/dL High 70 -100 10 finding [phone] Glucose Laboratory test 02/02/2018 In House Hemoglobin A1c 11.5 finding Basic Metabolic 02/01/2018 [facility] Sodium 134 mmol/L Low 139-145 Panel [phone] Potassium 4.4 mmol/L N 3.5-5.0 Chloride 99 mmol/L Low 101-111 Co2 Carbon Dioxide 29 mmol/L N 22-32 Anion Gap 6 mmol/L N 2-11 Glucose 298 mg/dL High 70-100 Blood Urea Nitrogen 22 mg/dL N 6-24 Creatinine 0.84 mg/dL N 0.51-0.95 BUN/Creatinine Ratio 26.2 High 8-20 Calcium 9.7 mg/dL N 8.6-10.3 Egfr Non- 70.9 >60 Egfr 91.2 >60 11 CBC Auto Diff 02/01/2018 [facility] White Blood Count 7.6 10^3/uL N 3.5-10.8 [phone] Red Blood Count 4.29 10^6/uL N 4.0-5.4 [...] negative Screen Culture Throat negative Inr/Protime 11/03/2017 [facility] Inr 2.47 High 0.77-1.02 [phone] Inr/Protime 10/27/2017 [facility] Inr 1.90 High 0.77-1.02 [phone] Inr/Protime 10/20/2017 [facility] Inr 1.48 High 0.77-1.02 12 [phone] Laboratory test 10/12/2017 [facility] Wound SEE RESULT 13, finding [phone] Culture/Sensi BELOW 14 Inr/Protime 10/11/2017 [facility] Inr 1.28 High 0.77-1.02 15 [phone] Laboratory test 10/07/2017 In House Hemoglobin A1c 8.6 finding Basic Metabolic 10/04/2017 [facility] Sodium 138 mmol/L N 133-145 Panel [phone] Potassium 4.6 mmol/L N 3.5-5.0 Chloride 99 mmol/L Low 101-111 Co2 Carbon Dioxide 29 mmol/L N 22-32 Anion Gap 10 mmol/L N 2-11 Glucose 320 mg/dL High 70-100 Blood Urea Nitrogen 27 mg/dL High 6-24 Creatinine 1.01 mg/dL High 0.51-0.95 BUN/Creatinine Ratio 26.7 High 8-20 Calcium 9.7 mg/dL N 8.6-10.3 Egfr Non- 57.3 >60 Egfr 73.7 >60 16 Inr/Protime 10/04/2017 [facility] Inr 1.89 High 0.77-1.02 17 [phone] Inr/Protime 09/27/2017 [facility] Inr 1.37 High 0.77-1.02 18 [phone] Inr/Protime 09/20/2017 [facility] Inr 4.08 High 0.89-1.11 [phone] Laboratory test 09/13/2017 [facility] Inr/Protime 3.11 High 0.89- 1.11 finding [phone] Laboratory test 09/03/2017 [facility] Inr/Protime 1.86 High 0.89- 1.11 finding [phone] Laboratory test 09/01/2017 [facility] Inr/Protime 1.63 High 0.89- 1.11 finding [phone] Laboratory test 08/30/2017 In House Hemoglobin A1c 6.7 finding Laboratory test 08/30/2017 [facility] Inr/Protime 1.29 High 0.89- 1.11 finding [phone] Laboratory test 08/23/2017 [facility] Inr/Protime 2.00 High 0.89- 1.11 finding [phone] Laboratory test 07/27/2017 [facility] B-Type 447 pg/mL High 19 finding [phone] Natriuretic Peptide BNP CBC Auto Diff 07/27/2017 [facility] White Blood 17.9 High 3.5-10.8 [phone] Count 10^3/uL Red Blood Count 4.90 10^6/uL [...] Cells % 0.1 N Laboratory test 07/27/2017 [facility] Lactic Acid 2.6 mmol/L High 0.5 -2.0 20 finding [phone] Comp Metabolic Panel 07/27/2017 [facility] Sodium 131 mmol/L Low 133- 145 [phone] Potassium 4.7 mmol/L N 3.5-5.0 Chloride 97 [...] 63.1 N >60 Egfr 81.1 N >60 21 CKMB 07/27/2017 [facility] CKMB ng/mL > 302.0 ng/mL High 0.6-6.3 [phone] Laboratory test 07/27/2017 [facility] Troponin-I > 82.00 ng/mL High < 0.04 finding [phone] (TnI) Creatine Kinase(CK) 2059 U/L High 10-223 Alcohol < 10 mg/dL N <10 Basic Metabolic Panel 07/27/2017 [facility] Sodium 137 mmol/L N 133- 145 [phone] Potassium 4.1 mmol/L N 3.5-5.0 Chloride 102 mmol/L N 101-111 Co2 Carbon Dioxide 29 mmol/L N 22-32 Anion Gap 6 mmol/L N 2-11 Glucose 300 mg/dL High 70-100 Blood Urea Nitrogen 15 mg/dL N 6-24 Creatinine 0.69 mg/dL N 0.51-0.95 BUN/Creatinine Ratio 21.7 High 8-20 Calcium 8.9 mg/dL N 8.6-10.3 Egfr Non- 89.0 N >60 Egfr 114.5 N >60 22 Urine Microalbumin 07/08/2017 [facility] Urine Creatinine 42.72 mg/dL N Random [phone] Ur Microalbumin (mg/L) 435.3 mg/L N Urine Microalbumin/Creatinine 1018.9 ug/mg High <31 Laboratory test 05/25/2017 [facility] B-Type 239 pg/mL High 23 finding [phone] Natriuretic Peptide BNP Laboratory test 05/25/2017 [facility] Point of Care 305 mg/dL High 70 -100 24 finding [phone] Glucose CBC Auto Diff 05/21/2017 [facility] White Blood Count 6.8 10^3/uL N 3.5-10 [phone] .[phone] Red Blood Count 4.45 10^6/uL N 4.0-5.4 [...] Nucleated Red Blood Cells % 0.1 N Basic Metabolic Panel 05/21/2017 [facility] Sodium 135 mmol/L N 133- 145 [phone] Potassium 3.7 mmol/L N 3.5-5.0 Chloride 105 mmol/L N 101-111 Co2 Carbon Dioxide 22 mmol/L N 22-32 Anion Gap 8 mmol/L N 2-11 Glucose 233 mg/dL High 70-100 Blood Urea Nitrogen 28 mg/dL High 6-24 Creatinine 0.87 mg/dL N 0.51-0.95 BUN/Creatinine Ratio 32.2 High 8-20 Calcium 9.0 mg/dL N 8.6-10.3 Egfr Non- 68.1 N >60 Egfr 87.6 N >60 25 Laboratory test 05/20/2017 In House Hemoglobin A1c 10.0 finding Laboratory test 03/02/2017 [facility] Wound Culture/Sensi SEE RESULT 26 finding [phone] BELOW Tissue Culture & Sensitiv SEE RESULT BELOW 27 Laboratory test finding 01/26/2017 [facility] Cytology SEE RESULT BELOW 28 [phone] Human Papilloma Virus Rna Negative N Negative 29 Laboratory test finding 11/30/2016 In House Hemoglobin A1c 9.7 1 Because ethnic data is not always readily [...] 15-29 5 Kidney failure <15 (or dialysis) 2 SORE THROAT, FACE HURTS 3 NORMAL THROAT DICKSON 4 Test Performed by: [address] [address] 5 Result TnIDx:0.07 Called to [id number] at: 00:01:40 by:[id number] Read back by: [id number] Critical Result LACT:2.6 Called to [id number] at: 00:00:38 by:[id number] Read back by:[id number] [facility] Severe Sepsis and Septic Shock Management Bundle Measure requires all lactic acids initially measuring >2.0 mmol/L be repeated. 7 >100 to <200 pg/mL: likely compensated congestive heart failure (CHF) 200 to 400 pg/mL: likely moderate CHF >400 pg/mL: likely moderate to severe CHF 8 Because ethnic data is not always readily [...] 15-29 5 Kidney failure <15 (or dialysis) 9 Aircraft Maintenance Manager: [id number] Aircraft Maintenance Manager: [id number] 11 Because ethnic data is not always readily [...] 15-29 5 Kidney failure <15 (or dialysis) 12 Please note the change in INR reference range effective 17. 13 SURGICAL WOUND LEFT POSTERIOR LEG-INITIAL/OPEN-PER REQ 14 SEE RESULT BELOW Name: GABRIEL CHAVEZ : [address]: Uri Buchanan MD Acct: [id number] Unit: [id number] AGE: 52 Location: WOUND Re10/12/17 SEX: F Status: REG REF SPEC: [id number] KYRA: 10/12/17-[address] [facility] [address]: Uri Buchanan MD REQ: [id number] RECD: 10/12/17 STATUS: MJ GRIJALVA DR: Jamaal [...] performed at Main Lab DEPARTMENT OF PATHOLOGY, [address] [place] [address] Mg Ruff M.D. Director [facility] # [id number] Patient: GABRIEL CHAVEZ [id number] (Continued) Specimen: [id number] Collected: 10/12/17 Received: 10/12/17-1216 (Continued) Procedure Result Reported Site Wound/Misc Culture Final (continued) 10/14/17- 1100 1. STAPHYLOCOCCUS AUREUS (continued) M.I.C. RX --------- ------ * Ampicillin/Sulbactam-Deduced S Cefazolin-Deduced S * These antibiotics are not available in the [facility] Formulary Contact the Microbiology Department for any additional antibiotic reporting. * ML - MAIN LAB ([facility]) . END OF REPORT * ML=Testing performed at Main Lab DEPARTMENT OF PATHOLOGY, [address] [place] [address] Mg Ruff M.D. Director [facility] # [id number] 15 Please note the change in INR reference range effective 17. 16 Because ethnic data is not always readily [...] 15-29 5 Kidney failure <15 (or dialysis) 17 Please note the change in INR reference range effective 17. 18 Please note the change in INR reference range effective 17. 19 >100 to <200 pg/mL: likely compensated congestive heart failure (CHF) 200 to 400 pg/mL: likely moderate CHF >400 pg/mL: likely moderate to severe CHF 20 Critical Result LACT:2.6 Called to JOSE at: 23:08:02 by:[id number] Read back by:JOSE [facility] Severe Sepsis and Septic Shock Management Bundle Measure requires all lactic acids initially measuring >2.0 mmol/L be repeated. 21 Because ethnic data is not always [...] 5 Kidney failure <15 (or dialysis) 22 Because ethnic data is not always readily [...] 15-29 5 Kidney failure <15 (or dialysis) 23 >100 to <200 pg/mL: likely compensated congestive heart failure (CHF) 200 to 400 pg/mL: likely moderate CHF >400 pg/mL: likely moderate to severe CHF 24 Aircraft Maintenance Manager: [id number] 25 Because ethnic data is not always readily [...] 15-29 5 Kidney failure <15 (or dialysis) 26 SEE RESULT BELOW Name: ANNYJOANIEGRETTA KUNZRED : [address]: Uri Buchanan MD Acct: [id number] Unit: [id number] AGE: 51 Location: WOUND Re03/02/17 SEX: F Status: REG REF SPEC: [id number] KYRA: 03/02/[address] [facility] [address]: Uri Buchanan MD REQ: [id number] RECD: 03/02/17 STATUS: MJ GRIJALVA DR: Jeison [...] performed at Main Lab DEPARTMENT OF PATHOLOGY, [address] [place] [address] Mg Ruff M.D. Director [facility] # [id number] Patient: GABRIEL CHAVEZ [id number] (Continued) Specimen: [id number] Collected: 03/02/17 Received: 03/02/17 (Continued) Procedure Result Reported Site Wound/Misc Culture Final (continued) 03/05/17854 1. MORGANELLA MORGANII (continued) MWilfredoIWilfredoCWilfredo RX --------- ------ Pipercillin/Tazobactam <=4 S Trimethoprim/Sulfamethoxazole [...] antibiotic reporting. * ML - MAIN LAB ([facility]) . END OF REPORT * ML=Testing performed at Main Lab DEPARTMENT OF PATHOLOGY, [address] [place] [address] Mg Ruff M.D. Director [facility] # [id number] 27 SEE RESULT BELOW Name: GABRIEL CHAVEZ : [address]: Uri Buchanan MD Acct: [id number] Unit: [id number] AGE: 51 Location: WOUND Re03/02/17 SEX: F Status: REG REF SPEC: [id number] KYRA: 03/02/[address] [facility] [address]: Uri Buchanan MD REQ: [id number] RECD: 03/02/17 STATUS: MJ GRIJALVA DR: Jeison [...] FOR FURTHER [place]ENTIF[place]. [place] [address] for sensitivity testing for Morganella morganii. 2. PROTEUS PENNERI M.I.C. RX --------- ------ Ampicillin >=32 R Cefazolin >=64 R Cefepime <=1 S Ceftriaxone <=1 S CONTINUED ON NEXT PAGE * ML=Testing performed at Main Lab DEPARTMENT OF PATHOLOGY, [address] [place] [address] Mg Ruff M.D. Director [facility] # [id number] Patient: LUCASGABRIEL [id number] (Continued) Specimen: [id number] Collected: 03/02/17 Received: 03/02/17 (Continued) Procedure Result Reported Site Tissue Culture Final (continued) 03/06/17900 2. PROTEUS ALANNA (continued) Michael RX --------- ------ Ciprofloxacin <=0.25 S Gentamicin <=1 S Levofloxacin <=0.12 S Meropenem <=0.25 S Nitrofurantoin 128 R Tetracycline >=16 R Pipercillin/Tazobactam <=4 S Trimethoprim/Sulfamethoxazole <=20 S Amoxicillin/Clavulanic Acid 4 S Aztreonam <=1 S Contact the Microbiology Department for any additional antibiotic reporting. * ML - MAIN LAB ([facility]) . END OF REPORT * ML=Testing performed at Main Lab DEPARTMENT OF PATHOLOGY, [address] [place] [address] Mg Ruff M.D. Director [facility] # [id number] 28 SEE RESULT BELOW Name: GABRIEL CHAVEZ : [address]: Latia SAEED Acct: [id number] Unit: [id number] AGE: 51 Location: [facility] Re01/26/17 SEX: F Status: REG REF SPEC: [id number] KYRA: 01/26/17-[address] [facility] [address]: Latia SAEED REQ: [id number] RECD: 01/26/17183 STATUS: SOUT _ ORDERED: IMAGE ANALYSIS, HPV/Thin Prep COMMENTS: [id number] FINAL DIAGNOSIS Negative for Intraepithelial lesion or [...] (signature on file) SAMY Lanier (ASCP) 01/27 2470 This Pap test was evaluated with the assistance of the ThinPrep Test Imaging System. Due to cytologic findings at the cell maker microscope, comprehensive manual rescreening by a Embossing Unit Operator may be required. The Pap Smear is [...] performed at Main Lab RUN DATE: 01/27/17 [facility] LAB LIVE PAGE 1 Patient: GABRIEL CHAVEZ [id number] (Continued) DEPARTMENT OF PATHOLOGY, [address] [place] [address] Mg Ruff M.D. Director [facility] # [id number] 29 The high-risk HPV types detected by the assay include: 16, 18, 31, 33, 35, 39, 45, 51, 52, 56, 58, 59, 66, and 68. Procedures Date Code Description Status 02/02/2018 783470738 Diabetic Foot Exam Completed 11/04/2017 11474 Anticoagulant MGMT For Patient Taking Warfarin, Inc Completed Review & Intr 10/27/2017 10679 Anticoagulant MGMT For Patient Taking Warfarin, Inc Completed Review & Intr 07/21/2017 21484 Inhalation Therapy Completed 03/18/2017 95425 X-Ray Chest Two Views Completed 02/22/2017 62748896 Mammogram Completed 01/18/2017 86983 Electrocardiogram Complete Completed Encounters Type Date Location Provider Dx Diagnosis Office Visit 10/01/2018 Main Office Odell Bear, R11.2 Nausea with vomiting, 10:15a M.D. unspecified R19.7 Diarrhea, unspecified E11.65 Type 2 diabetes mellitus with hyperglycemia Office Visit 09/01/2018 2:30p Main Office Jamaal Garcia, Z12.11 Encounter for D.O. 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 unspecified B37.9 Candidiasis, unspecified I10 Essential (primary) hypertension R07.0 Pain in throat Office Visit 10/07/2017 10:30a Main Office Jamaal Garcia, E11.69 Type 2 diabetes D.O. 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 mellitus with hyperglycemia Z23 Encounter for immunization Z41.8 Encntr for oth proc for purpose [facility] Office Visit 05/20/2017 9:45a Main Office Jamaal Garcia, E11.65 Type 2 diabetes D.O. mellitus with hyperglycemia Office Visit 03/18/2017 1:45p Main Office Jeison Johnson R05 Basil Mcfadden M.D. 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 E11.621 Type 2 diabetes mellitus with foot ulcer Z79.4 longterm (current) use of insulin Z23 Encounter for immunization Office Visit 11/30/2016 9:15a Main Office Jeison Johnson E11.65 Type 2 diabetes Nichelle Mcfadden mellitus with hyperglycemia E11.59 Type 2 diabetes mellitus with oth circulatory complications L97.429 Non-prs chronic ulcer of left heel and midfoot w unsp severt E11.621 Type 2 diabetes mellitus with foot ulcer 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 at Main [id number]/01/2018 - Jamaal Garcia D.O.Z12.11 Encounter for screening for malignant neoplasm of pnmleV02.65 Type 2 diabetes mellitus with hyperglycemiaReferral:Lucio Turner MD, OphthalmologyFollow up:2 1/2 months recheck diabetes with HA1C with glucometer readings.Z79.4 electrician apprentice (current) use of exmszgdZ92 Essential (primary) awgxaakeawbwI03.234 Atherosclerosis of platinum arteries of right leg with gelgaucM31 Encounter for ckonvovdsouiK35.621 Type 2 diabetes mellitus with foot ulcer
--- OUTSIDE RECORDS SUMMARY | 2018-10-25 01:03 | XMS REPORT | Continuity of Care Document ---
:1965 External Reference #:[id number] Author Name Jamaal Garcia D.O. Address [address] [place] [address] Care Team Providers Name Role Phone HCP/LW on file Primary Care Physician Unavailable Payers Type Date Identification Numbers Payment Provider Subscriber Effective: Policy Number: [id number] [facility] Gabriel Zavala 2011 Services PayID: [id number] [address] [place] [id number] Advance Directives Description No Information Available Problems Date Description Provider Status Onset: 01/26/2017 Type II diabetes mellitus uncontrolled aLtia Monsalve PA Active Onset: 01/26/2017 Essential hypertension [...] Seat Belt Use - Yes Age 1st [place] 17 Years Old # [employer] 5-10 Allergies, Adverse Reactions, Alerts Date Description Reaction Status Severity Comments 01/18/2017 Zofran Active hives 07/08/2017 Levaquin Active vomiting Medications Medication Date Status Form Strength Qnty SIG Indications Ordering Provider Neti Pot Kit 07/11 Active Kit 2300-700m 1unit use as Sopchak, Sinus Wash/Clear g s directed Jamaal, View Kettle D.O. Toujeo Max 05/30 Active Solution 300Unit/M 60ml 120 units E11.69 Radha Garciaostar Pen-Injec L injected Jamaal, t once daily D.O. increase by 2 u every 3 days if fasting glucose are > 110. Pantoprazole 05/26 Active Tablets 40mg 60tab 1 tablet by Radha Sodium DR hollingsworth mouth twice Jamaal, daily D.O. Tylenol 05/26 Active Tablets 325mg give 2 tablets by mouth [id number] as needed / otc Freestyle Test 02/03 Active Strips 200un or Sopchak, its appropriate Jamaal, strips for D.O. patient's machine. use 1-4 times daily as directed. Freestyle 28G 01/22 Active 200un Use as Radha Lancets its Directed For Jamaal, Diabetic D.O. Testing 1-4 Times Day Clopidogrel 11/04 Active Tablets 75mg 1 tablet by Dillan Bisulfate mouth daily DO Tomas Atorvastatin 08/20 Active Tablets 80mg 1 by mouth Unknown Calcium every evening Docusate Sodium 08/20 Active Capsules 100mg 1 cap by mouth twice a day as needed for constipation Furosemide 08/20 Active Tablets 20mg 180ta Take Two cha bs Tablets By Jamaal, Mouth Every D.O. Day Carvedilol 08/05 Active Tablets 3.125mg 180ta Take One bs Tablet By Jamaal, Mouth Twice D.O. A Day Freestyle Lite 05/20 Active Device 1unit or any other E11.65 Radha Blood Glucose s covered Jamaal, Monitoring System glucometer D.O. by her insurance. Lancets 05/20 Active Misc 200un use as E11.65 Radha Bullseye its directed for Abhay Hinton diabetic D.O. testing BD Pen 05/20 Active Misc 31G X 5 400un or Radha, Needle/Mini/Ultra mm its appropriate Jamaal, fine/31G X 3/16" needles for D.O. lantus [...] Hx Tablets 150mg 1tabs take one B37.3 Silcoff, tablet by Odell, - mouth as one M.D. 10/11 dose for yeast infection Lomotil 10/08 Hx Tablets 2.5-0.025 14tab take 1-2 R19.7 Sopchak mg s tablets by Jamaal, - mouth 4 D.O. 10/15 times per day as needed for diarrhea Prochlorperazine 10/01 Hx Tablets 5mg 15tab take 1-2 R11.2 Silcoff, Maleate /2018 s tablets by Odell, - mouth every M.D. 10/21 6 hours as needed for nausea Acarbose 08/11 Hx Tablets 50mg 270ta take one cha bs tablet by Jamaal, - mouth three D.O. 08/31 times a day at the start of each main meal for type 2 diabetes Losartan 08/11 Hx Tablets 50mg 90tab take 1 Radha, Potassium s tablet daily Jamaal, - in the D.O. 10/14 morning for diabetic kidney protection Amoxicillin/Clavu 07/11 Hx Tablets 875-125mg 20tab 1 by mouth Radha, lanate Potassium s twice a day Jamaal, - D.O. 07/21 Amoxicillin 03/19 Hx Tablets 500mg 60tab 2 by mouth J01.90 Silcojennifer, s three times Odell, - a day for 10 M.D. 04/02 days for sinusitis; start this if not feeling better in a few days Freestyle Lite 02/03 Hx Strips use up to E11.65 , 4-6x/day for Jamaal, - blood sugar D.O. 02/03 monitoring Amoxicillin 12/07 Hx Tablets 875mg 20tab 1 by mouth J01.90 Silcoff, s twice a day Odell, - x 10 days M.D. 12/17 for bacterial pharyngitis Fluconazole 12/07 Hx Tablets 150mg 2tabs 1 tabs by B37.9 Chema, mouth one Odell, - time a week M.D. 12/21 for yeast infection Basaglar Kwikpen 11/19 Hx Solution 100Unit/M 120ml inject 60 E11.69 cha Pen-Injec L units 2 Jamaal, - t (two) times D.O. 05/30 daily, at same time every day; for blood sugar control; inc. by 2units every 3d if fbs > 110 Lisinopril 10/06 Hx Tablets 2.5mg 1 by mouth every day - 08/10 Coumadin 09/06 Hx Tablets 1mg 200ta 1 - 5 , bs tablets Jamaal, - daily as D.O. [...] 08/05 Hx Tablets 25mg 90tab Take One Sopchabarb s Tablet By Jamaal, - Mouth Every [...] 31G X 450units use with Sopchak, Syringe 05/20/2017 15/64" lantus and Jamaal, Ultrafine/U-100 1 ML humolog [...] by mouth Radha, Bisulfate 08/05/2017 every day Jamaal D.O. Furosemide - Hx Tablets 20mg 90tabs take 1 tablet Jeison A. 07/08/2017 by mouth Bogdan, daily. MChetan Ranexa - Hx Tablets ER 1000mg 180tabs 1 tablet twice Radha, 08/27/2017 12HR a day Joan Hinton.OWilfredo Ranitidine HCL - Hx Capsules 300mg 90caps 1 by mouth Sopchak, 08/31/2018 daily at Jamaal, bedtime D.O. Fish [...] CPT Code Status Date Vaccine Lot # [id number] Given 09/01/2018 Influenza Virus Vaccine, Quadrivalent, Split, [id number] Preservative Free 22120 Given 07/08/2017 Influenza Virus Vaccine, Quadrivalent, Split, [id number] Preservative Free 99582 Given 01/18/2017 Adacel or Boostrix, TDaP [id number] 08269 Given 11/30/2016 Influenza Virus Vaccine, Quadrivalent, Split, [...] Result H/L Range Note Laboratory test 10/11/2018 [facility] Stool Culture <pending> finding [phone] O&P Ova & Parasites Screen <pending> Fecal Lactoferrin (Stool WBC) <pending> C Difficile B PCR SEE RESULT BELOW 1 Comp Metabolic Panel 10/10/2018 [facility] Sodium 134 mmol/L Low 135- 145 [phone] Potassium 4.6 mmol/L N 3.5-5.0 Chloride 96 [...] 40.4 >60 2 CBC Auto Diff 10/10/2018 [facility] White Blood 15.6 10^3/uL High 3.5 -10.8 [phone] Count Red Blood Count 4.50 10^6/uL N [...] I T positive finding Urine Microalbumin 08/11/2018 [facility] Ur Microalbumin 308.3 Random [phone] (mg/L) Urine Creatinine 67.46 mg/dL Urine Microalbumin/Creatinine 457.0 High <31 Laboratory test 08/11/2018 In House Hemoglobin A1c 11.0 finding Basic Metabolic 07/22/2018 [facility] Sodium 133 mmol/L Low 135-145 Panel [phone] Potassium 4.5 mmol/L N 3.5-5.0 Chloride 99 mmol/L Low 101-111 Co2 Carbon Dioxide 23 mmol/L N 22-32 Anion Gap 11 mmol/L N 2-11 Glucose 437 mg/dL High 70-100 Blood Urea Nitrogen 33 mg/dL High 6-24 Creatinine 1.02 mg/dL High 0.51-0.95 BUN/Creatinine Ratio 32.4 High 8-20 Calcium 9.2 mg/dL N 8.6-10.3 Egfr Non- 56.5 >60 Egfr 68.3 >60 3 Laboratory test 07/03/2018 [facility] Hosp. Throat NORMAL 4, 5 finding LABORATORY Culture THROAT FL [phone] Complete <SEE NOTE> Laboratory test 05/30/2018 [facility] [place] Negative Negative 6 finding [phone] Pylori Antigen- Stool CBC Auto Diff 05/25/2018 [facility] White Blood 9.8 10^3/uL N 3.5- 10.8 [phone] Count Red Blood Count 4.17 10^6/uL N [...] Red Blood Cells % 0.4 Inr/Protime 05/25/2018 [facility] Inr 0.83 N 0.77-1.02 [phone] Laboratory test 05/25/2018 [facility] Partial 26.3 seconds N 26.0- 36.3 finding [phone] Thrombo Time PTT Comp Metabolic 05/25/2018 [facility] Sodium 139 mmol/L N 135-145 Panel [phone] Potassium 4.1 mmol/L N 3.5-5.0 Chloride 102 [...] Egfr Non- 48.2 >60 Egfr 58.3 >60 7 Laboratory test finding 05/25/2018 [facility] Magnesium 2.0 mg/dL N 1.9-2.7 [phone] Amylase 27 U/L Low 29-103 Lipase 27 U/L N 11.0-82.0 Creatine Kinase(CK) 61 U/L N 10-223 Troponin-I (TnI) 0.07 ng/mL High <0.04 8 Lactic Acid 2.6 mmol/L High 0.5-2.0 9 B-Type Natriuretic Peptide BNP 139 pg/mL High 10 Rapid Influenza A 02/21/2018 [facility] Influenza A NEGATIVE Negative 11 & B Molecular [phone] Molecular Influenza B Molecular NEGATIVE Negative Laboratory test 02/21/2018 [facility] Point of Care 380 mg/dL High 70 -100 12 finding [phone] Glucose Laboratory test 02/02/2018 In House Hemoglobin A1c 11.5 finding CBC Auto Diff 02/01/2018 [facility] White Blood 7.6 N 3.5-10.8 [phone] Count 10^3/uL Red Blood Count 4.29 10^6/uL N 4.0-5.4 [...] 0-2 Nucleated Red Blood Cells % 0.1 Basic Metabolic Panel 02/01/2018 [facility] Sodium 134 mmol/L Low 139 -145 [phone] Potassium 4.4 mmol/L N 3.5-5.0 Chloride 99 mmol/L Low 101-111 Co2 Carbon Dioxide 29 mmol/L N 22-32 Anion Gap 6 mmol/L N 2-11 Glucose 298 mg/dL High 70-100 Blood Urea Nitrogen 22 mg/dL N 6-24 Creatinine 0.84 mg/dL N 0.51-0.95 BUN/Creatinine Ratio 26.2 High 8-20 Calcium 9.7 mg/dL N 8.6-10.3 Egfr Non- 70.9 >60 Egfr 91.2 >60 13 Laboratory test finding 12/07/2017 In House Culture Throat Rapid negative Screen Culture Throat negative Inr/Protime 11/03/2017 [facility] Inr 2.47 High 0.77-1.02 [phone] Inr/Protime 10/27/2017 [facility] Inr 1.90 High 0.77-1.02 [phone] Inr/Protime 10/20/2017 [facility] Inr 1.48 High 0.77-1.02 14 [phone] Laboratory test 10/12/2017 [facility] Wound SEE RESULT 15, finding [phone] Culture/Sensi BELOW 16 Inr/Protime 10/11/2017 [facility] Inr 1.28 High 0.77-1.02 17 [phone] Laboratory test 10/07/2017 In House Hemoglobin A1c 8.6 finding Basic Metabolic 10/04/2017 [facility] Sodium 138 mmol/L N 133-145 Panel [phone] Potassium 4.6 mmol/L N 3.5-5.0 Chloride 99 mmol/L Low 101-111 Co2 Carbon Dioxide 29 mmol/L N 22-32 Anion Gap 10 mmol/L N 2-11 Glucose 320 mg/dL High 70-100 Blood Urea Nitrogen 27 mg/dL High 6-24 Creatinine 1.01 mg/dL High 0.51-0.95 BUN/Creatinine Ratio 26.7 High 8-20 Calcium 9.7 mg/dL N 8.6-10.3 Egfr Non- 57.3 >60 Egfr 73.7 >60 18 Inr/Protime 10/04/2017 [facility] Inr 1.89 High 0.77-1.02 19 [phone] Inr/Protime 09/27/2017 [facility] Inr 1.37 High 0.77-1.02 20 [phone] Inr/Protime 09/20/2017 [facility] Inr 4.08 High 0.89-1.11 [phone] Laboratory test 09/13/2017 [facility] Inr/Protime 3.11 High 0.89- 1.11 finding [phone] Laboratory test 09/03/2017 [facility] Inr/Protime 1.86 High 0.89- 1.11 finding [phone] Laboratory test 09/01/2017 [facility] Inr/Protime 1.63 High 0.89- 1.11 finding [phone] Laboratory test 08/30/2017 In House Hemoglobin A1c 6.7 finding Laboratory test 08/30/2017 [facility] Inr/Protime 1.29 High 0.89- 1.11 finding [phone] Laboratory test 08/23/2017 [facility] Inr/Protime 2.00 High 0.89- 1.11 finding [phone] Laboratory test 07/27/2017 [facility] B-Type 447 pg/mL High 21 finding [phone] Natriuretic Peptide BNP CBC Auto Diff 07/27/2017 [facility] White Blood 17.9 High 3.5-10.8 [phone] Count 10^3/uL Red Blood Count 4.90 10^6/uL [...] Cells % 0.1 N Basic Metabolic Panel 07/27/2017 [facility] Sodium 137 mmol/L N 133- 145 [phone] Potassium 4.1 mmol/L N 3.5-5.0 Chloride 102 mmol/L N 101-111 Co2 Carbon Dioxide 29 mmol/L N 22-32 Anion Gap 6 mmol/L N 2-11 Glucose 300 mg/dL High 70-100 Blood Urea Nitrogen 15 mg/dL N 6-24 Creatinine 0.69 mg/dL N 0.51-0.95 BUN/Creatinine Ratio 21.7 High 8-20 Calcium 8.9 mg/dL N 8.6-10.3 Egfr Non- 89.0 N >60 Egfr 114.5 N >60 22 Laboratory test 07/27/2017 [facility] Troponin-I (TnI) > 82.00 High < 0.04 finding [phone] ng/mL Creatine Kinase(CK) 2059 U/L High 10-223 Alcohol < 10 mg/dL N <10 CKMB 07/27/2017 [facility] CKMB ng/mL > 302.0 ng/mL High 0.6-6.3 [phone] Comp Metabolic 07/27/2017 [facility] Sodium 131 mmol/L Low 133-145 Panel [phone] Potassium 4.7 mmol/L N 3.5-5.0 Chloride 97 [...] N >60 Egfr 81.1 N >60 23 Laboratory test 07/27/2017 [facility] Lactic Acid 2.6 mmol/L High 0.5 -2.0 24 finding [phone] Urine 07/08/2017 [facility] Urine 42.72 mg/dL N Microalbumin [phone] Creatinine Random Ur Microalbumin (mg/L) 435.3 mg/L N Urine Microalbumin/Creatinine 1018.9 ug/mg High <31 Laboratory test 05/25/2017 [facility] B-Type 239 pg/mL High 25 finding [phone] Natriuretic Peptide BNP Laboratory test 05/25/2017 [facility] Point of Care 305 mg/dL High 70 -100 26 finding [phone] Glucose Basic Metabolic 05/21/2017 [facility] Sodium 135 mmol/L N 133-14 Panel [phone] Potassium 3.7 mmol/L N 3.5-5.0 Chloride [...] N >60 27 CBC Auto Diff 05/21/2017 [facility] White Blood Count 6.8 10^3/uL N 3.5-10.8 [phone] Red Blood Count 4.45 10^6/uL N 4.0-5.4 [...] % 0.1 N Laboratory test 05/20/2017 In [place] Hemoglobin A1c 10.0 finding Laboratory test 03/02/2017 [facility] Wound Culture/Sensi SEE RESULT 28 finding [phone] BELOW Tissue Culture & Sensitiv SEE RESULT BELOW 29 Laboratory test finding 01/26/2017 [facility] Cytology SEE RESULT BELOW 30 [phone] Human Papilloma Virus Rna Negative N Negative 31 Laboratory test finding 11/30/2016 [facility] [place] Hemoglobin A1c 9.7 1 SEE RESULT BELOW Name: GABRIEL ZAVALA : [address]: Odell Bear MD Acct: [id number] Unit: [id number] AGE: 53 Location: [facility] Re10/11/18 SEX: F Status: REG REF SPEC: [id number] KYRA: 10/11/[address]: Odell Bear MD REQ: [id number] RECD: 10/11/18 STATUS: COMP _ SOURCE: STOOL SPDESC: ORDERED: CWilfredo barcenas PCR, Stool Culture, Fecal Lactoferr, O P: Niko/Crypt Procedure Result Reported Site Stool Culture Final [...] CONTINUED ON NEXT PAGE DEPARTMENT OF PATHOLOGY, [address] [place] [address] Mg Ruff M.D. Director [facility] # [id number] Patient: GABRIEL ZAVALA [id number] (Continued) Specimen: [id number] Collected: 10/11/18-1345 Received: 10/11/18 (Continued) Procedure Result Reported Site [...] is requested. Contact the Microbiology Department at [phone]. TEST LIMITATIONS: As with all diagnostic procedures, [...] . END OF REPORT DEPARTMENT OF PATHOLOGY, [address] [place] [address] Mg Ruff M.D. Director [facility] # [id number] 2 Because ethnic data is not always [...] 5 Kidney failure <15 (or dialysis) 4 SORE THROAT, FACE HURTS 5 NORMAL THROAT DICKSON 6 Test Performed by: [address] [address] 7 Because ethnic data is not always readily [...] 15-29 5 Kidney failure <15 (or dialysis) 8 Result TnIDx:0.07 Called to [id number] at: 00:01:40 by:[id number] Read back by: [id number] Critical Result LACT:2.6 Called to [id number] at: 00:00:38 by:[id number] Read back by:[id number] [place] Severe Sepsis and Septic Shock Management Bundle Measure requires all lactic acids initially measuring >2.0 mmol/L be repeated. 10 >100 to <200 pg/mL: likely compensated congestive heart failure (CHF) 200 to 400 pg/mL: likely moderate CHF >400 pg/mL: likely moderate to severe CHF 11 Assistant Technician: [id number] Assistant Technician: [id number] 13 Because ethnic data is not always [...] REQ 16 SEE RESULT BELOW Name: AGUS ZAVALAIFRED Edie : [address]: Uri Buchanan MD Acct: [id number] Unit: [id number] AGE: 52 Location: [facility] Re10/12/17 SEX: F Status: REG REF SPEC: [id number] KYRA: 10/12/17-11[address] [facility] [address]: Uri Buchanan MD REQ: [id number] RECD: 10/12/17121 STATUS: MJ GRIJALVA DR: Jamaal Garcia DO [...] performed at Main Lab DEPARTMENT OF PATHOLOGY, [address] [place] [address] Mg Ruff M.D. Director [facility] # [id number] Patient: GABRIEL ZAVALA [id number] (Continued) Specimen: [id number] Collected: 10/12/17 Received: 10/12/17-1216 (Continued) Procedure Result Reported Site Wound/Misc Culture Final (continued) 10/14/17- 1099 1. STAPHYLOCOCCUS AUREUS (continued) M.I.C. RX --------- ------ * Ampicillin/Sulbactam-Deduced S Cefazolin-Deduced S * These antibiotics are not available in the [facility] Formulary Contact the Microbiology Department for any additional antibiotic reporting. * [facility] - [facility] . END OF REPORT * ML=Testing performed at Main Lab DEPARTMENT OF PATHOLOGY, [address] [place] [address] Mg Ruff M.D. Director [facility] # [id number] 17 Please note the change in INR [...] pg/mL: likely moderate to severe CHF 22 Because ethnic data is not always [...] 5 Kidney failure <15 (or dialysis) 23 Because ethnic data is not always [...] 5 Kidney failure <15 (or dialysis) 24 Critical Result LACT:2.6 Called to [id number] at: 23:08:02 by:[id number] Read back by:JOSE [email or web address] Severe Sepsis and Septic Shock Management Bundle Measure requires all lactic acids initially measuring >2.0 mmol/L be repeated. 25 >100 to <200 pg/mL: likely compensated congestive heart failure (CHF) 200 to 400 pg/mL: likely moderate CHF >400 pg/mL: likely moderate to severe CHF 26 Assistant Technician: [id number] 27 Because ethnic data is not always [...] dialysis) 28 SEE RESULT BELOW Name: GABRIEL ZAVALA : [address]: Uri Buchanan MD Acct: [id number] Unit: [id number] AGE: 51 Location: W[facility] Re03/02/17 SEX: F Status: REG REF SPEC: [id number] KYRA: 03/02/[address]: Uri Buchanan MD REQ: [id number] RECD: 03/02/17 STATUS: MJ [facility] DR: Jeison Mcfadden MD _ SOURCE: FOOT,LEFT [...] performed at Main Lab DEPARTMENT OF PATHOLOGY, [address] [place] [address] Mg Ruff M.D. Director [facility] # [id number] Patient: GABRIEL ZAVALA [id number] (Continued) Specimen: [id number] Collected: 03/02/17 Received: 03/02/17-1116 (Continued) Procedure Result Reported Site Wound/Misc Culture Final (continued) 03/05/17854 1. MORGANELLA MORGANII (continued) M.I.C. RX --------- [...] antibiotic reporting. * ML - [facility]) . END OF REPORT * ML=Testing performed at Main Lab DEPARTMENT OF PATHOLOGY, [address] [place] [address] Mg Ruff M.D. Director [facility] # [id number] 29 SEE RESULT BELOW Name: GABRIEL ZAVALA : [address]: Uri Buchanan MD Acct: [id number] Unit: [id number] AGE: 51 Location: WOUND Re03/02/17 SEX: F Status: REG REF SPEC: [id number] KYRA: 03/02/[address]: Uri Buchanan MD REQ: [id number] RECD: 03/02/17 STATUS: COMP RUDI DR: Jeison Mcfadden MD _ SOURCE: TISSUE [...] FOR FURTHER [place]. [place] [address] for sensitivity testing for Morganella morganii. 2. PROTEUS PENNERI M.I.C. RX --------- ------ Ampicillin >=32 R Cefazolin >=64 R Cefepime <=1 S Ceftriaxone <=1 S CONTINUED ON NEXT PAGE * ML=Testing performed at Main Lab DEPARTMENT OF PATHOLOGY, [address] [place] [address] Mg Ruff M.D. Director [facility] # [id number] Patient: GABRIEL ZAVALA [id number] (Continued) Specimen: [id number] Collected: 03/02/17 Received: 03/02/17-1116 (Continued) Procedure Result Reported Site Tissue Culture Final (continued) 03/06/17- 900 2. PROTEUS PENNERI (continued) Michael RX --------- ------ Ciprofloxacin <=0.25 S Gentamicin <=1 S Levofloxacin <=0.12 S Meropenem <=0.25 S Nitrofurantoin 128 R Tetracycline >=16 R Pipercillin/Tazobactam <=4 S Trimethoprim/Sulfamethoxazole <=20 S Amoxicillin/Clavulanic Acid 4 S Aztreonam <=1 S Contact the Microbiology Department for any additional antibiotic reporting. * [facility] . END OF REPORT * ML=Testing performed at Main Lab DEPARTMENT OF PATHOLOGY, [address] [place] [address] Mg Ruff M.D. Director [facility] # [id number] 30 SEE RESULT BELOW Name: GABRIEL ZAVALA : [address]: Latia SAEED Acct: [id number] Unit: [id number] AGE: 51 Location: [facility] Re01/26/17 SEX: F Status: REG REF SPEC: [id number] KYRA: 01/26/17-[address]: Latia SAEED REQ: [id number] RECD: 01/26/17 STATUS: SOUT _ ORDERED: IMAGE ANALYSIS, HPV/Thin Prep COMMENTS: [id number] FINAL DIAGNOSIS Negative for Intraepithelial lesion or [...] 68. Signed (signature on file) SAMY Lanier ([facility]) 01/27 1502 This Pap test was evaluated with the assistance of the [employer] Test Imaging System. Due to cytologic findings at the tennis court attendant microscope, comprehensive manual rescreening by a Teletypesetter Monitor may be required. The Pap Smear is [...] performed at Main Lab RUN DATE: 01/27/17 [facility] LAB LIVE PAGE 1 Patient: GABRIEL ZAVALA [id number] (Continued) DEPARTMENT OF PATHOLOGY, [address] [place] [address] Mg Ruff M.D. Director [facility] # [id number] 31 The high-risk HPV types detected by the assay include: 16, 18, 31, 33, 35, 39, 45, 51, 52, 56, 58, 59, 66, and 68. Procedures Date Code Description Status 02/02/2018 235822696 Diabetic Foot Exam Completed 11/04/2017 94028 Anticoagulant MGMT For Patient Taking Warfarin, Inc Completed Review & Intr 10/27/2017 16566 Anticoagulant MGMT For Patient Taking Warfarin, Inc Completed Review & Intr 07/21/2017 54347 Inhalation Therapy Completed 03/18/2017 39219 X-Ray Chest Two Views Completed 02/22/2017 04029495 Mammogram Completed 01/18/2017 06740 Electrocardiogram Complete Completed Encounters Type Date Location Provider Dx Diagnosis Office Visit 10/10/2018 Main Office Odell Bear, R11.2 Nausea with vomiting, 2:30p M.D. 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 mellitus with hyperglycemia Z79.4 correction (current) use of insulin I10 Essential (primary) hypertension I70.234 [facility] [place] art of right leg w ulcer of heel and midfoot E11.69 Type 2 diabetes mellitus with other specified complication Office Visit 07/11/2018 3:00p Main Office Jamaal Garcia D.O. R07.0 Pain in throat J01.00 Acute maxillary sinusitis, unspecified J02.9 Acute pharyngitis, unspecified E11.69 Type 2 diabetes mellitus with other specified complication Z79.4 correction (current) use of insulin L97.519 Non-prs chronic ulcer oth prt right foot w unsp severity I10 Essential (primary) hypertension E11.621 Type 2 diabetes mellitus with foot ulcer Office Visit 05/30/2018 12:55p Main Office Jamaal Garcia, E11.69 Type 2 diabetes D.O. mellitus with other specified complication Z79.4 correction (current) use of insulin I50.22 Chronic systolic (congestive) heart failure I25.10 Athscl heart disease of [place] coronary artery w/o ang pctrs I70.234 [facility] [place] art of right leg w ulcer of heel and midfoot I25.83 Coronary atherosclerosis due to lipid rich plaque I10 Essential (primary) hypertension K21.9 Gastro-esophageal reflux disease without esophagitis R07.89 Other chest pain Office Visit 03/19/2018 11:00a Main Office Odell Bear M.D. R07.0 Pain in throat H92.03 Otalgia, bilateral R51 Headache J01.90 Acute sinusitis, unspecified Office Visit 02/02/2018 2:30p Main Office Jamaal Garcia E11.69 Type 2 diabetes D.O. 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 unspecified B37.9 Candidiasis, unspecified I10 Essential (primary) hypertension R07.0 Pain in throat Office Visit 10/07/2017 10:30a Main Office Jamaal Garcia, E11.69 Type 2 diabetes D.O. 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 mellitus with hyperglycemia Z79.4 correction (current) use of insulin L97.519 Non-prs chronic ulcer oth prt right foot w unsp severity Z95.1 Presence of aortocoronary bypass graft R60.9 Edema, unspecified Z79.01 terminal makeup operator (current) use of anticoagulants Office Visit 08/06/2017 3:00p Main Office Jamaal Garcia, J84.9 Interstitial D.O. 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 mellitus with hyperglycemia Z23 Encounter for immunization Z41.8 Encntr for oth proc for purpose oth [facility] Office Visit 05/20/2017 9:45a Main Office Jamaal Garcia, E11.65 Type 2 diabetes D.O. 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
--- OUTSIDE RECORDS SUMMARY | 2018-10-25 01:03 | XMS REPORT | Continuity of Care Document ---
:1965 External Reference #:[id number] Author Name Odell Bear M.D. Address [address] [facility] [address] [place] [address] Care Team Providers Name Role Phone HCP/LW on file Primary Care Physician Unavailable Payers Type Date Identification Numbers Payment Provider Subscriber Effective: Policy Number: [id number] [facility] Gabriel Zavala 2011 Services PayID: [id number] [address] [place] [address] Advance Directives Description No Information Available Problems [...] Seat Belt Use - Yes Age 1st [place] 17 Years Old # [employer] 5-10 Allergies, Adverse Reactions, Alerts Date Description Reaction Status Severity Comments 01/18/2017 Zofran Active hives 07/08/2017 Levaquin Active vomiting Medications Medication Date Status Form Strength Qnty SIG Indications Ordering Provider Fluconazole 10/10 Hx Tablets 150mg 1tabs take one B37.3 Silcoff, tablet by Odell, - mouth as one M.D. 10/11 dose for yeast infection Lomotil 10/08 Hx Tablets 2.5-0.025 14tab take 1-2 R19.7 Sopchak, /2017 mg s tablets by Jamaal, - mouth 4 D.O. 10/15 times per day as needed for diarrhea Prochlorperazine 10/01 Hx Tablets 5mg 15tab take 1-2 R11.2 Silcoff, Maleate s tablets by Odell, - mouth every M.D. 10/21 6 hours as needed for nausea Losartan 08/11 Active Tablets 50mg 90tab take 1 Sopchak, Potassium s tablet daily Jamaal, in the D.O. morning for diabetic kidney protection Neti Pot Kit 07/11 Active Kit 2300-700m 1unit use as Sopchak, Sinus Wash/Clear g s directed Jamaal View Kettle D.O. Toujeo Max 05/30 Active Solution 300Unit/M 60ml 120 units E11.69 Sopfrancisco Solostar Pen-Injec L injected Jamaaleron once daily D.O. increase by 2 u every 3 days if fasting glucose are > 110. Pantoprazole 05/26 Active Tablets 40mg 60tab 1 tablet by Radha Sodium DR s mouth twice Jamaal, daily D.O. Tylenol 05/26 Active Tablets 325mg give 2 tablets by mouth [id number] as needed / otc Freestyle Test 02/03 Active Strips 200un or Sopchak, its appropriate Jamaal, strips for D.O. patient's machine. use 1-4 times daily as directed. Freestyle 28G 01/22 Active 200un Use as Sopfrancisco Lancets its Directed For Jamaal, Diabetic D.O. Testing 1-4 Times Day Clopidogrel 11/04 Active Tablets 75mg 1 tablet by Curry Grimaldoate mouth daily DO Tomas Atorvastatin 08/20 Active Tablets 80mg 1 by mouth Unknown Calcium every evening Docusate Sodium 08/20 Active Capsules 100mg 1 cap by Unknown mouth twice a day as needed for constipation Furosemide 08/20 Active Tablets 20mg 180ta Take Two bs Tablets By Jamaal, Mouth Every D.O. Day Carvedilol 08/05 Active Tablets 3.125mg 180ta Take One Sopk, bs Tablet By Jamaal, Mouth Twice D.O. A Day Spironolactone 08/05 Active Tablets 25mg 90tab Take One Sop, s Tablet By Jamaal, Mouth Every D.O. [...] Active Solution 100Unit/M 45ml 15 units E11.69 Sophamletk, /2017 Pen-Injec L before each Jamaal, t meal or per D.O. sliding scale Gabapentin Active Capsules 300mg 90cap 1 by mouth Sopchak, s daily Jamaal, D.O. Aspirin Active 81mg 1 daily Unknown Children's / Tradjenta Active Tablets 5mg 90tab Take One Sopchak, s Tablet By Jamaal, Mouth Every D.O. Day For Blood Sugar Control Acarbose 08/11 Hx Tablets 50mg 270ta take one cha bs tablet by Jamaal, - mouth three D.O. 08/31 times a day at the start of each main meal for type 2 diabetes Amoxicillin/Clavu 07/11 Hx Tablets 875-125mg 20tab 1 by mouth Sopchak, lanate s twice a day Jamaal, - [...] 1 tabs by B37.9 Silcoff, mouth one Odell, - time a week [...] Hx Tablets 1mg 200ta 1 - 5 Sopchak, bs tablets Jamaal, - daily as D.O. [...] humolog as D.O. /1ML/31G X directed 5 15/64" times daily BD Insulin 05/20/2017 - Hx [...] 90caps Take One MacQueen, 05/19/2017 Capsule By Steven Mouth Three MD Times A Day x 30 days Levaquin 03/16/2017 - Hx Tablets 500mg 7tabs 1 by mouth Unknown 03/23/2017 daily x 7 days Atorvastatin 02/18/2017 - Hx Tablets 40mg 30tabs 1 by mouth Dillan Calcium 08/27/2017 every day for Tomas, high [...] Hx Tablets 75mg 90tabs 1 [facility], Bisulfate 08/05/2017 every day Jamaal DWilfredoOWilfredo Furosemide - Hx Tablets 20mg 90tabs take 1 tablet Jeison A. 07/08/2017 by mouth Bogdan, daily. MChetan Ranexa - Hx Tablets ER 1000mg 180tabs 1 tablet twice Radha, 08/27/2017 12HR a day Clay Hinotn Ranitidine HCL - Hx Capsules 300mg 90caps [facility]2018 daily at Jamaal, bedtime D.O. Fish [...] CPT Code Status Date Vaccine Lot # [id number] Given 09/01/2018 Influenza Virus Vaccine, Quadrivalent, Split, [id number] Preservative Free 08241 Given 07/08/2017 Influenza Virus Vaccine, Quadrivalent, Split, [id number] Preservative Free 44923 Given 01/18/2017 Adacel or Boostrix, TDaP [id number] 35136 Given 11/30/2016 Influenza Virus Vaccine, Quadrivalent, Split, Im Use U-Pneum Given 01/18/2009 Pneumococcal,Unspecified Vital Signs Date Vital Result Comment 10/10/2018 2:44pm BP Systolic 80 mmHg R [...] Glucose 429 finding Quantitative Urine Microalbumin 08/11/2018 [facility] Microalbumin 308.3 Random [phone] (mg/L) Urine Creatinine 67.46 mg/dL Urine Microalbumin/Creatinine 457.0 High <31 Laboratory test 08/11/2018 In House Hemoglobin A1c 11.0 finding Basic Metabolic 07/22/2018 [facility] Sodium 133 mmol/L Low 135-145 Panel [phone] Potassium 4.5 mmol/L N 3.5-5.0 Chloride 99 mmol/L Low 101-111 Co2 Carbon Dioxide 23 mmol/L N 22-32 Anion Gap 11 mmol/L N 2-11 Glucose 437 mg/dL High 70-100 Blood Urea Nitrogen 33 mg/dL High 6-24 Creatinine 1.02 mg/dL High 0.51-0.95 BUN/Creatinine Ratio 32.4 High 8-20 Calcium 9.2 mg/dL N 8.6-10.3 Egfr Non- 56.5 >60 Egfr 68.3 >60 1 Laboratory test 07/03/2018 [facility] Throat NORMAL 2, 3 finding LABORATORY Culture THROAT FL [phone] Complete <SEE NOTE> Laboratory test 05/30/2018 [facility] Helico Pylori Negative Negative 4 finding [phone] Antigen- Stool Laboratory test 05/25/2018 [facility] Magnesium 2.0 mg/dL N 1.9-2.7 finding [phone] Amylase 27 U/L Low 29-103 Lipase 27 U/L N 11.0-82.0 Creatine Kinase(CK) 61 U/L N 10-223 Troponin-I (TnI) 0.07 ng/mL High <0.04 5 Lactic Acid 2.6 mmol/L High 0.5-2.0 6 B-Type Natriuretic Peptide BNP 139 pg/mL High 7 Comp Metabolic Panel 05/25/2018 [facility] Sodium 139 mmol/L N 135- 145 [phone] Potassium 4.1 mmol/L N 3.5-5.0 Chloride 102 [...] Egfr 58.3 >60 8 Laboratory test 05/25/2018 [facility] Partial 26.3 seconds N 26.0- 36.3 finding [phone] Thrombo Time PTT Inr/Protime 05/25/2018 [facility] Inr 0.83 N 0.77-1.02 [phone] CBC Auto Diff 05/25/2018 [facility] White Blood 9.8 10^3/uL N 3.5- 10.8 [phone] Count Red Blood Count 4.17 10^6/uL N [...] Cells % 0.4 Rapid Influenza A 02/21/2018 [facility] Influenza A NEGATIVE Negative 9 & B Molecular [phone] Molecular Influenza B Molecular NEGATIVE Negative Laboratory test 02/21/2018 [facility] Point of Care 380 mg/dL High 70 -100 10 finding [phone] Glucose Laboratory test 02/02/2018 In House Hemoglobin A1c 11.5 finding Basic Metabolic 02/01/2018 [facility] Sodium 134 mmol/L Low 139-145 Panel [phone] Potassium 4.4 mmol/L N 3.5-5.0 Chloride 99 mmol/L Low 101-111 Co2 Carbon Dioxide 29 mmol/L N 22-32 Anion Gap 6 mmol/L N 2-11 Glucose 298 mg/dL High 70-100 Blood Urea Nitrogen 22 mg/dL N 6-24 Creatinine 0.84 mg/dL N 0.51-0.95 BUN/Creatinine Ratio 26.2 High 8-20 Calcium 9.7 mg/dL N 8.6-10.3 Egfr Non- 70.9 >60 Egfr 91.2 >60 11 CBC Auto Diff 02/01/2018 [facility] White Blood Count 7.6 10^3/uL N 3.5-10.8 [phone] Red Blood Count 4.29 10^6/uL N 4.0-5.4 [...] negative Screen Culture Throat negative Inr/Protime 11/03/2017 [facility] Inr 2.47 High 0.77-1.02 [phone] Inr/Protime 10/27/2017 [facility] Inr 1.90 High 0.77-1.02 [phone] Inr/Protime 10/20/2017 [facility] Inr 1.48 High 0.77-1.02 12 [phone] Laboratory test 10/12/2017 [facility] Wound SEE RESULT 13, finding [phone] Culture/Sensi BELOW 14 Inr/Protime 10/11/2017 [facility] Inr 1.28 High 0.77-1.02 15 [phone] Laboratory test 10/07/2017 In House Hemoglobin A1c 8.6 finding Basic Metabolic 10/04/2017 [facility] Sodium 138 mmol/L N 133-145 Panel [phone] Potassium 4.6 mmol/L N 3.5-5.0 Chloride 99 mmol/L Low 101-111 Co2 Carbon Dioxide 29 mmol/L N 22-32 Anion Gap 10 mmol/L N 2-11 Glucose 320 mg/dL High 70-100 Blood Urea Nitrogen 27 mg/dL High 6-24 Creatinine 1.01 mg/dL High 0.51-0.95 BUN/Creatinine Ratio 26.7 High 8-20 Calcium 9.7 mg/dL N 8.6-10.3 Egfr Non- 57.3 >60 Egfr 73.7 >60 16 Inr/Protime 10/04/2017 [facility] Inr 1.89 High 0.77-1.02 17 [phone] Inr/Protime 09/27/2017 [facility] Inr 1.37 High 0.77-1.02 18 [phone] Inr/Protime 09/20/2017 [facility] Inr 4.08 High 0.89-1.11 [phone] Laboratory test 09/13/2017 [facility] Inr/Protime 3.11 High 0.89- 1.11 finding [phone] Laboratory test 09/03/2017 [facility] Inr/Protime 1.86 High 0.89- 1.11 finding [phone] Laboratory test 09/01/2017 [facility] Inr/Protime 1.63 High 0.89- 1.11 finding [phone] Laboratory test 08/30/2017 In House Hemoglobin A1c 6.7 finding Laboratory test 08/30/2017 [facility] Inr/Protime 1.29 High 0.89- 1.11 finding [phone] Laboratory test 08/23/2017 [facility] Inr/Protime 2.00 High 0.89- 1.11 finding [phone] Laboratory test 07/27/2017 [facility] B-Type 447 pg/mL High 19 finding [phone] Natriuretic Peptide BNP CBC Auto Diff 07/27/2017 [facility] White Blood 17.9 High 3.5-10.8 [phone] Count 10^3/uL Red Blood Count 4.90 10^6/uL [...] Cells % 0.1 N Laboratory test 07/27/2017 [facility] Lactic Acid 2.6 mmol/L High 0.5 -2.0 20 finding [phone] Comp Metabolic Panel 07/27/2017 [facility] Sodium 131 mmol/L Low 133- 145 [phone] Potassium 4.7 mmol/L N 3.5-5.0 Chloride 97 [...] Egfr 81.1 N >60 21 CKMB 07/27/2017 [facility] CKMB ng/mL > 302.0 ng/mL High 0.6-6.3 [phone] Basic Metabolic 07/27/2017 [facility] Sodium 137 mmol/L N 133-145 Panel [phone] Potassium 4.1 mmol/L N 3.5-5.0 Chloride 102 mmol/L N 101-111 Co2 Carbon Dioxide 29 mmol/L N 22-32 Anion Gap 6 mmol/L N 2-11 Glucose 300 mg/dL High 70-100 Blood Urea Nitrogen 15 mg/dL N 6-24 Creatinine 0.69 mg/dL N 0.51-0.95 BUN/Creatinine Ratio 21.7 High 8-20 Calcium 8.9 mg/dL N 8.6-10.3 Egfr Non- 89.0 N >60 Egfr 114.5 N >60 22 Laboratory test 07/27/2017 [facility] Troponin-I (TnI) > 82.00 High < 0.04 finding [phone] ng/mL Creatine Kinase(CK) 2059 U/L High 10-223 Alcohol < 10 mg/dL N <10 Urine Microalbumin 07/08/2017 [facility] Urine Creatinine 42.72 mg/dL N Random [phone] Ur Microalbumin (mg/L) 435.3 mg/L N Urine Microalbumin/Creatinine 1018.9 ug/mg High <31 Laboratory test 05/25/2017 [facility] Point of Care 305 mg/dL High 70 -100 23 finding [phone] Glucose Laboratory test 05/25/2017 [facility] B-Type 239 pg/mL High 24 finding [phone] Natriuretic Peptide BNP Basic Metabolic 05/21/2017 [facility] Sodium 135 mmol/L N 133-145 Panel [phone] Potassium 3.7 mmol/L N 3.5-5.0 Chloride 105 mmol/L N 101-111 Co2 Carbon Dioxide 22 mmol/L N 22-32 Anion Gap 8 mmol/L N 2-11 Glucose 233 mg/dL High 70-100 Blood Urea Nitrogen 28 mg/dL High 6-24 Creatinine 0.87 mg/dL N 0.51-0.95 BUN/Creatinine Ratio 32.2 High 8-20 Calcium 9.0 mg/dL N 8.6-10.3 Egfr Non- 68.1 N >60 Egfr 87.6 N >60 25 CBC Auto Diff 05/21/2017 [facility] White Blood Count 6.8 10^3/uL N 3.5-10.8 [phone] Red Blood Count 4.45 10^6/uL N 4.0-5.4 [...] Hemoglobin A1c 10.0 finding Laboratory test 03/02/2017 [facility] Wound Culture/Sensi SEE RESULT 26 finding [phone] BELOW Tissue Culture & Sensitiv SEE RESULT BELOW 27 Laboratory test finding 01/26/2017 [facility] Cytology SEE RESULT BELOW 28 [phone] Human Papilloma Virus Rna Negative N Negative [...] NORMAL THROAT DICKSON 4 Test Performed by: [address] [id number] 5 Result TnIDx:0.07 Called to [id number] at: 00:01:40 by:[id number] Read back by: [id number] Critical Result LACT:2.6 Called to [id number] at: 00:00:38 by:[id number] Read back by:[id number] [facility] Severe Sepsis and Septic Shock Management [...] 5 Kidney failure <15 (or dialysis) 9 Rag Willow Operator: [id number] 10 Rag Willow Operator: [id number] 11 Because ethnic data is not always [...] REQ 14 SEE RESULT BELOW Name: GABRIEL ZAVALA : [address]: Uri Buchanan MD Acct: [id number] Unit: [id number] AGE: 52 Location: WOUND Re10/12/17 SEX: F Status: REG REF SPEC: [id number] KYRA: 10/12/17-[address] [facility] [address]: Uri Buchanan MD REQ: [id number] RECD: 10/12/17-1217 STATUS: MJ GRIJALVA DR: Jamaal Garcia DO [...] performed at Main Lab DEPARTMENT OF PATHOLOGY, [address] [place] [address] Mg Ruff M.D. Director DEVON # [id number] Patient: GABRIEL ZAVALA [id number] (Continued) Specimen: [id number] Collected: 10/12/17 Received: 10/12/17-1216 (Continued) Procedure Result Reported Site Wound/Misc Culture Final (continued) 10/14/17- 1099 1. STAPHYLOCOCCUS AUREUS (continued) M.I.C. RX --------- ------ * Ampicillin/Sulbactam-Deduced S Cefazolin-Deduced S * These antibiotics are not available in the [facility] Formulary Contact the Microbiology Department for any additional antibiotic reporting. * ML - MAIN LAB ([facility]) . END OF REPORT * ML=Testing performed at Main Lab DEPARTMENT OF PATHOLOGY, [address] [place] [address] Mg Ruff M.D. Director [facility] # [id number] 15 Please note the change in INR [...] Result LACT:2.6 Called to JOSE at: 23:08:02 by:[id number] Read back by:JOSE VAUGHAN Severe Sepsis and Septic Shock Management Bundle [...] 5 Kidney failure <15 (or dialysis) 23 Rag Willow Operator: [id number] 24 >100 to <200 pg/mL: likely compensated congestive heart failure (CHF) 200 to 400 pg/mL: likely moderate CHF >400 pg/mL: likely moderate to severe CHF 25 Because ethnic data is not always [...] (or dialysis) 26 SEE RESULT BELOW Name: GABRIEL ZAVALA : [address]: Uri Buchanan MD Acct: [id number] Unit: [id number] AGE: 51 Location: WOUND Re03/02/17 SEX: F Status: REG REF SPEC: [id number] KYRA: 03/02/[address]: Uri Buchanan MD REQ: [id number] RECD: 03/02/17 STATUS: [facility] DR: Jeison Mcfadden MD _ SOURCE: FOOT,LEFT [...] performed at Main Lab DEPARTMENT OF PATHOLOGY, [address] [place] [address] Mg Ruff M.D. Director DEVON # [id number] Patient: GABRIEL ZAVALA [id number] (Continued) Specimen: [id number] Collected: 03/02/17 Received: 03/02/17-1116 (Continued) Procedure Result [...] antibiotic reporting. * ML - MAIN LAB ([facility]) . END OF REPORT * ML=Testing performed at Main Lab DEPARTMENT OF PATHOLOGY, [address] [place] [address] Mg Ruff M.D. Director [facility] # [id number] 27 SEE RESULT BELOW Name: GABRIEL ZAVALA : [address]: Uri Buchanan MD Acct: [id number] Unit: [id number] AGE: 51 Location: WOUND Re03/02/17 SEX: F Status: REG REF SPEC: [id number] KYRA: 03/02/[address]: Uri Buchanan MD REQ: [id number] RECD: 03/02/17 STATUS: MJ GRIJALVA DR: Jeison [...] FOR FURTHER [place]ENTIF[place]. [place] [address] for sensitivity testing for Morganella morganii. 2. PROTEUS PENNERI M.I.C. RX --------- ------ Ampicillin >=32 R Cefazolin >=64 R Cefepime <=1 S Ceftriaxone <=1 S CONTINUED ON NEXT PAGE * ML=Testing performed at Main Lab DEPARTMENT OF PATHOLOGY, [address] [place] [address] Mg Ruff M.D. Director [facility] # [id number] Patient: GABRIEL ZAVALA [id number] (Continued) Specimen: [id number] Collected: 03/02/17 Received: 03/02/17 (Continued) Procedure Result [...] antibiotic reporting. * ML - MAIN LAB ([facility]) . END OF REPORT * ML=Testing performed at Main Lab DEPARTMENT OF PATHOLOGY, [address] [place] [address] Mg Ruff M.D. Director [facility] # [id number] 28 SEE RESULT BELOW Name: GABRIEL ZAVALA : [address]: Latia SAEED Acct: [id number] Unit: [id number] AGE: 51 Location: [facility] Re01/26/17 SEX: F Status: REG REF SPEC: [id number] KYRA: 01/26/17-[address]: Latia SAEED REQ: [id number] RECD: 01/26/17 STATUS: SOUT _ ORDERED: IMAGE ANALYSIS, HPV/Thin Prep COMMENTS: [id number] FINAL DIAGNOSIS Negative for Intraepithelial lesion or [...] and 68. Signed (signature on file) [facility] [place] [facility] 01/27 1502 This Pap test was evaluated with the assistance of the [employer] Test Imaging System. Due to cytologic findings at the chicken raiser microscope, comprehensive manual rescreening by a Roofer Applicator may be required. The Pap Smear is [...] performed at Main Lab RUN DATE: 01/27/17 [facility] LAB LIVE PAGE 1 Patient: GABRIEL ZAVALA [id number] (Continued) DEPARTMENT OF PATHOLOGY, [address] [place] [address] Mg Ruff M.D. Director [facility] # [id number] 29 The high-risk HPV types detected by the assay include: 16, 18, 31, 33, 35, 39, 45, 51, 52, 56, 58, 59, 66, and 68. Procedures Date Code Description Status 02/02/2018 167572216 Diabetic Foot Exam Completed 11/04/2017 77724 Anticoagulant MGMT For Patient Taking Warfarin, Inc Completed Review & Intr 10/27/2017 03392 Anticoagulant MGMT For Patient Taking Warfarin, Inc Completed Review & Intr 07/21/2017 43178 Inhalation Therapy Completed 03/18/2017 77712 X-Ray Chest Two Views Completed 02/22/2017 20455010 Mammogram Completed 01/18/2017 20721 Electrocardiogram Complete Completed Encounters Type Date Location Provider Dx Diagnosis Office Visit 10/01/2018 Main Office Odell Bear, R11.2 Nausea with vomiting, 10:15a M.D. unspecified R19.7 Diarrhea, unspecified E11.65 Type 2 diabetes mellitus with hyperglycemia Office Visit 09/01/2018 2:30p Main Office Jamaal Garcia, Z12.11 Encounter for D.O. screening for malignant neoplasm of colon E11.65 Type 2 diabetes mellitus with hyperglycemia Z79.4 alf (current) use of insulin I10 Essential (primary) hypertension I70.234 [place] art of right leg w ulcer of heel and midfoot Z23 Encounter for immunization E11.621 Type 2 diabetes mellitus with foot ulcer Office Visit 08/11/2018 1:30p Main Office Jamaal Garcia, E11.65 Type 2 diabetes D.O. mellitus with hyperglycemia Z79.4 bed bug exterminator (current) use of insulin I10 Essential (primary) hypertension I70.234 [place] art of right leg w ulcer of heel and midfoot E11.69 Type 2 diabetes mellitus with other specified complication Office Visit 07/11/2018 3:00p Main Office Jamaal Garcia DDebbi R07.0 Pain in throat J01.00 Acute maxillary sinusitis, unspecified J02.9 Acute pharyngitis, unspecified E11.69 Type 2 diabetes mellitus with other specified complication Z79.4 bed bug exterminator (current) use of insulin L97.519 Non-prs chronic ulcer oth prt right foot w unsp severity I10 Essential (primary) hypertension E11.621 Type 2 diabetes mellitus with foot ulcer Office Visit 05/30/2018 12:55p Main Office Jamaal Garcia, E11.69 Type 2 diabetes D.O. mellitus with other specified complication Z79.4 alf (current) use of insulin I50.22 Chronic systolic (congestive) heart failure I25.10 Athscl heart disease of [place] coronary artery w/o ang pctrs I70.234 [place] art of right leg w ulcer of [...] heart failure I25.10 Athscl heart disease of [place] coronary artery w/o ang pctrs E11.59 Type 2 diabetes mellitus with oth circulatory complications I70.234 [place] art of right leg w ulcer of heel and midfoot Z79.4 bed bug exterminator (current) use of insulin Office Visit 12/07/2017 2:20p Main Office Bess Shell, J01.90 Acute sinusitis, P.A. unspecified B37.9 Candidiasis, unspecified I10 Essential (primary) hypertension R07.0 Pain in throat Office Visit 10/07/2017 10:30a Main Office Jamaal Garcia, E11.69 Type 2 diabetes D.O. 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 mellitus with hyperglycemia Z79.4 alf (current) use of insulin L97.519 Non-prs chronic ulcer oth prt right foot w unsp severity Z95.1 Presence of aortocoronary bypass graft R60.9 Edema, unspecified Z79.01 alf (current) use of anticoagulants Office Visit 08/06/2017 3:00p Main Office Jamaal Garcia, J84.9 Interstitial D.O. 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 mellitus with hyperglycemia Z23 Encounter for immunization Z41.8 [facility] 05/20/2017 9:45a Main Office Jamaal Garcia, E11.65 Type 2 diabetes D.O. mellitus with hyperglycemia Office Visit 03/18/2017 1:45p Main Office Jeison Mcfadden M.D. R91.8 Other nonspecific abnormal finding of lung field J84.9 Interstitial pulmonary disease, unspecified Office Visit 01/26/2017 9:25a Main Office Latia Monsalve, Z01.419 Encntr for first sampler PA exam (general) (routine) w/o abn findings [...] specified counseling I25.10 Athscl heart disease of si[place] coronary artery w/o ang pctrs L97.529 Non-pressure chronic ulcer oth prt left foot w unsp severity E11.621 Type 2 diabetes mellitus with foot ulcer Z79.4 alf (current) use of insulin Z23 Encounter for immunization Office Visit 11/30/2016 9:15a Main Office Jeison Johnson E11.Mandeep Type 2 diabetes Nichelle Mcfadden mellitus with hyperglycemia E11.59 Type 2 diabetes mellitus with oth circulatory complications L97.429 Non-prs chronic ulcer of left heel and midfoot w unsp severt E11.621 Type 2 diabetes mellitus with foot ulcer Z79.4 alf (current) use of insulin F17.210 Nicotine dependence, cigarettes, uncomplicated E11.9 Type 2 diabetes mellitus without complications Plan of Treatment Future Appointment(s):11/09/2018 2:15 pm - Jamaal Garcia D.O. 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
[2018-10-25] MEDS ORDERED: Insulin REGULAR(*) 1 UNITS UNIT IV PUSH ONE (01:04)
[2018-10-25 01:23] LABS: ABS Basophils 0.1 10^3/ul (0-0.2); ABS Eosinophils 0.1 10^3/ul (0-0.6); ABS Lymphocytes 1.3 10^3/ul (1.0-4.8); ABS Monocytes 0.5 10^3/ul (0-0.8); ABS Neutrophils 6.6 10^3/ul (1.5-7.7); ABS Nucleated RBC 0 10^3/ul; Eosinophil % 1.5 %; Hematocrit 35 % (35-47); Hemoglobin 11.7 g/dl (12.0-16.0); Lymphocyte % 15.2 %; Mean Corpuscular HGB Conc 33 g/dl (31-36); Mean Corpuscular Hemoglobin 28 pg (27-31); Mean Corpuscular Volume 85 fL (80-97); Mean Platelet Volume 8.3 fL (7.4-10.4); Nucleated Red Blood Cells % 0; Platelet Count 337 10^3/ul (150-450); Red Blood Count 4.14 10^6/ul (4.00-5.40); Red Cell Distribution Width 15 % (10.5-15); White Blood Count 8.6 10^3/ul (3.5-10.8)
--- NOTE | 2018-10-25 01:28 | ED ---
HPI Chest Pain - HPI Summary HPI Summary: Pt is a 53 y/o female brought in by EMS who presents to the ED c/o CP. She began to have burning mid-sternal CP while lying down. Pt states the pain comes in waves, and is better when sitting up. She states she has never felt this sort of pain before, and she denies any current heartburn symptoms. Pt was given 324 mg ASA by EMS. She was dry heaving with occasional phlegm coming up in the ambulance. Pt denies any SOB, abdominal pain, or palpitations. She is a diabetic and has been having difficulty controlling her blood sugar recently. Pt was also recently taken off HTN medication. She had a CABG in July of 2017. PMHx CAD, reflux esophagitis, MA, DM. Pt is a former smoker. 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 Negative: Shortness of Breath, Palpitations, Abdominal Pain - Additional Pertinent History Primary Care Physician: [id number] - Allergy/Home Medications Allergies/Adverse Reactions: Allergies Allergy/AdvReac Type Severity Reaction Status Date / Time levofloxacin [From Levaquin] Allergy Nausea And Verified 10/25/18 01:20 Vomiting ondansetron Allergy Hives Verified 10/25/18 01:20 [From Zofran (as hydrochloride)] Home Medications: Home Medications Sulfamethox/Trimethoprim DS* [Bactrim DS 800/160 TAB*] 1 tab PO BID 10/25/18 [ History Confirmed 10/25/18] PMH/Surg Hx/FS Hx/Imm Hx Endocrine/Hematology History: Reports: Hx Anticoagulant Therapy, Hx Diabetes, Hx Anemia Cardiovascular History: Reports: Hx Angina, Hx Angioplasty, Hx Congestive Heart Failure, Hx Coronary Artery Disease, Hx Hypercholesterolemia, Hx Hypertension, Hx Peripheral Vascular Disease, Hx Valvular Heart Disease Denies: Hx Pacemaker/ICD, Other Cardiovascular Problems/Disorders Respiratory History: Reports: Hx Chronic Obstructive Pulmonary Disease (COPD) Musculoskeletal History: Reports: Hx Arthritis - general Sensory History: Reports: Hx Contacts or Glasses Denies: Hx Hearing Aid Opthamlomology History: Reports: Hx Contacts or Glasses Neurological History: Reports: Hx Transient Ischemic Attacks (TIA) - 2015 Psychiatric History: Denies: Hx Panic Disorder - Surgical History Surgery Procedure, Year, and Place: Complete Hysterectomy 2005; [facility]; HEART CATH- 4 CARDIAC STENTS, CABG, [facility] Infectious Disease History: No Infectious Disease History: Denies: Traveled Outside the [place] in Last 30 Days - Family History Known Family History: Positive: Cardiac Disease - Social History Alcohol Use: Rare Hx Substance Use: No Substance Use Type: Reports: None Hx Tobacco Use: Yes Smoking Status (MU): Former Smoker Have You Smoked in the Last Year: No Review of Systems Positive: Chest Pain - burning. Negative: Palpitations Negative: Shortness Of Breath Positive: Vomiting - dry heaving, Nausea. Negative: Abdominal Pain All Other Systems Reviewed And Are Negative: Yes Physical Exam - Summary Physical Exam Summary: Appearance: chronically-ill appearing, no pain distress Skin: warm, dry, reflects adequate perfusion Head/face: normal Eyes: EOMI, URIEL ENT: mucous membranes moist Neck: supple, non-tender Respiratory: CTA, breath sounds present Cardiovascular: tachycardic, pulses symmetrical Abdomen: non-tender, soft Bowel Sounds: present Musculoskeletal: normal, strength/ROM intact Neuro: normal, sensory motor intact, A&Ox3 HEART: 3-4 Triage Information Reviewed: Yes Vital Signs On Initial Exam: Initial Vitals Pulse Resp BP Pulse Ox 96 22 151/100 98 10/25/18 00:57 10/25/18 00:57 10/25/18 00:57 10/25/18 00:57 Vital Signs Reviewed: Yes Diagnostics - Vital Signs Vital Signs Temp Pulse Resp BP Pulse Ox 10/25/18 01:19 100 10/25/18 01:15 97.3 F 90 18 151/100 100 10/25/18 01:00 98 19 97 10/25/18 00:59 95 12 95 10/25/18 00:57 96 22 151/100 98 - Laboratory Lab Results: Lab Results 10/25/18 Range/Units 01:10 WBC 8.6 (3.5-10.8) 10^3/ul RBC 4.14 (4.00-5.40) 10^6/ul Hgb 11.7 L (12.0-16.0) g/dl Hct 35 (35-47) % MCV 85 (80-97) fL MCH 28 (27-31) pg MCHC 33 (31-36) g/dl RDW 15 (10.5-15) % Plt Count 337 (150-450) 10^3/ul MPV 8.3 (7.4-10.4) fL Neut % (Auto) 76.8 % Lymph % (Auto) 15.2 % Rooks % (Auto) 5.6 % Eos % (Auto) 1.5 % Baso % (Auto) 0.9 % Absolute Neuts (auto) 6.6 (1.5-7.7) 10^3/ul Absolute Lymphs (auto) 1.3 (1.0-4.8) 10^3/ul Absolute Monos (auto) 0.5 (0-0.8) 10^3/ul Absolute Eos (auto) 0.1 (0-0.6) 10^3/ul Absolute Basos (auto) 0.1 (0-0.2) 10^3/ul Absolute Nucleated RBC 0 10^3/ul Nucleated RBC % 0 Result Diagrams: 10/25/18 01:10 10/25/18 01:10 Lab Statement: Any lab studies that have been ordered have been reviewed, and results considered in the medical decision making process. - Radiology CXR Radiology Interpretation Completed By: ED Physician Summary of Radiographic Findings: No acute findings. Pending official radiology report. - EKG 01:02 Cardiac Rate: NL - 95 bpm EKG Rhythm: Sinus Rhythm ST Segment: Non-Specific Summary of EKG Findings: LAD, RBBB, inferior Q waves. Re-Evaluation - Re-Evaluation First Eval Re-Evaluation Time: 02:06 Change: Improved Comment: Pt feels better, her sx are gone. Offered admission but pt refused and would like to be discharged. Second Eval Re-Evaluation Time: 02:10 Change: Worse Comment: Pt's burning sensation returned and she would now prefer admission. Chest Pain Course/Dx - Course Course Of Treatment: Nurse's notes reviewed. Patient with heart score 4. She has history of CAD with substernal burning chest discomfort that worsens when she lays down. It is somewhat improved when she sits up. She improved with Pepcid here. She had had aspirin prehospital. Troponin is slightly elevated but her renal function is soft. She has chronically poorly controlled diabetes and sugars are 300. Patient was feeling better after treatment here and originally felt that she would like to go home. She began to feel more discomfort and did not feel safe going home. Discussed the case with the hospitalist will admit for further. D-dimer is elevated however patient has tenuous renal function. Hospitalist will evaluate. - Chest Pain Differential Diagnosis/HQI/PQRI: Acute MA, ACS, CHF, Chest Wall, GI Disease, Lower Respiratory Infection, Pulmonary Edema, Pulmonary Embolism - Diagnoses Provider Diagnoses: Chest pain, GERD (gastroesophageal reflux disease), Renal insufficiency, Hyperglycemia due to type 2 diabetes mellitus - Provider Notifications Discussed Care Of Patient With: Trinity Puentes Time Discussed With Above Provider: 02:17 Instructed by Provider To: Admit As Inpatient Discharge - Sign-Out/Discharge Documenting (check all that apply): Patient Departure - Admit - Discharge Plan Condition: Fair Disposition: ADMITTED TO [facility] Referrals: Jamaal Garcia DO [Primary Care Provider] - - Billing Disposition and Condition Condition: FAIR Disposition: Admitted to [facility] - Attestation Statements Document Initiated by Scribe: Yes Documenting Scribe: Cristy Gonzales Provider For Whom Scribe is Documenting (Include Credential): Chetan Delacruz MD Scribe Attestation: Cristy Overton, scribed for Chetan Delacruz MD on 10/25/18 at 0252. Scribe Documentation Reviewed: Yes Provider Attestation: The documentation as recorded by the Cristy izaguirre accurately reflects the service I personally performed and the decisions made by , Chetan Delacruz MD Status of Scribe Document: Viewed
[2018-10-25 01:30] LABS: INR 0.91 (0.77-1.02)
[2018-10-25 01:38] LABS: Albumin 3.5 g/dL (3.2-5.2); Albumin/Globulin Ratio 0.8 (1-3); BUN/Creatinine Ratio 11.7 (8-20); Calcium 9.7 mg/dL (8.6-10.3); EGFR Non-African American 43.5 (>60); Globulin 4.3 g/dL (2-4); Potassium 4.3 mmol/L (3.5-5.0); Total Bilirubin 0.4 mg/dL (0.2-1.0); Total Protein 7.8 g/dL (6.4-8.9)
[2018-10-25 01:58] LABS: TSH (Thyroid Stimulating Horm) 0.26 mcIU/mL (0.34-5.60)
[2018-10-25] MEDS ORDERED: Pantoprazole IV* 40 MG IV ONE (02:09)
[2018-10-25] MEDS ORDERED: Magnesium Hydroxide LIQ* 30 ML UDC PO PRN (02:58)
[2018-10-25] MEDS ORDERED: Ondansetron INJ* 2 MG/ML VIAL IV PRN (02:58)
[2018-10-25] MEDS ORDERED: Acetaminophen TAB* 325 MG PO PRN ×2 (02:58→03:02)
[2018-10-25] MEDS ORDERED: NS 0.9% 1000 ML* 1,000 ML IV SCH (03:00)
[2018-10-25] MEDS ORDERED: Gabapentin CAP(*) 300 MG PO PRN (03:02)
[2018-10-25] MEDS ORDERED: Calcium Carbonate CHEW TAB* 500 MG (TUMS) PO PRN (03:02)
[2018-10-25] MEDS ORDERED: Dextrose 50% Syringe 50 ML* 25 GM/50 ML SYRINGE IV PUSH PRN ×2 (03:02→03:04)
[2018-10-25] MEDS ORDERED: Insulin LISPRO* 1 UNITS UNIT SUBCUT ONE (03:04)
--- NOTE | 2018-10-25 05:00 | HP ---
CC: Dr. Garcia; Dr. Grimaldo, Cardiology * HISTORY AND PHYSICAL: DATE OF ADMISSION: 10/25/18 PRIMARY CARE PROVIDER: Dr. Garcia. CHIEF COMPLAINT: Chest pain. HISTORY OF PRESENT ILLNESS: April Chavez is a 53-year-old female with history of coronary artery disease, coronary artery bypass grafting and mitral valve replacement in July 2017, who presented today complaining of burning in the left upper chest radiating to the right shoulder. The patient stated that the symptoms occurred when she was vomiting earlier before New Year. She stated that she had a mushroom hamburger at [facility] at the beginning of September 2018 and ever since then she had indigestion and problems with diarrhea. She stated that for the past week or so, the symptoms have improved and she has not vomited for a week until tonight. The patient also noted that 3 days prior to today's admission, the patient was started on Bactrim for possibility of urinary tract infection. The patient's initial workup included EKG that is unchanged from prior and troponin that is slightly elevated, but is in this patient chronic. The patient currently denies any burning in the chest. Her symptoms did improve with GI cocktail in the emergency room. She stated that the pain occurred when she was lying down, improves when she sat up. There was no pleuritic component to the chest pain and she denied any shortness of breath. Once again, it happened during vomiting. Although the symptoms appear to be GI related, the patient does not feel comfortable to go home due to her history of cardiac disease and she is going to be placed overnight under observation. She is not interested in further cardiac workup unless it is necessary. PAST MEDICAL HISTORY: 1. History of coronary artery disease, status post several stents in the past, a total of 4, and as mentioned coronary artery bypass grafting in July 2017 as well as porcine mitral valve replacement at the same time. 2. History of peripheral vascular disease with stenting done in January 2018 to the right lower extremity. 3. Gastroesophageal reflux disease. 4. Hyperlipidemia. 5. Cardiomyopathy with EF noted to be 40%. 6. Diabetes with diabetic neuropathy. MEDICATIONS: At home includes: 1. Insulin Toujeo glargine 120 units in the morning daily. 2. Insulin Novolin 70/30, 50 units with each meal 3 times a day. 3. Tradjenta 5 mg daily. 4. Pantoprazole 40 mg daily. 5. Bactrim DS 1 tablet b.i.d. 6. Furosemide 40 mg daily. 7. Colace 100 mg b.i.d. p.r.n. 8. Plavix 75 mg daily. 9. Calcium carbonate on a p.r.n. basis. 10. Atorvastatin 80 mg daily. 11. Aspirin 81 mg daily. 12. Acetaminophen on a p.r.n. basis. ALLERGIES: Include LEVOFLOXACIN and ZOFRAN. FAMILY HISTORY: Positive for mother who at the age of 72 secondary to complications of bypass surgery and father with history of diabetes and heart disease. SOCIAL HISTORY: The patient lives at home with her , who is her healthcare proxy. She has history of smoking 80-pack years and she quit smoking a [id number]-half ago. She denies any current tobacco, alcohol or drug use. She is on disability. She is a full code. REVIEW OF SYSTEMS: Please see history of present illness. Negative except at the time of admission, the patient currently complains of no chest pain. She denies any abdominal pain. She stated that in the past month, she would have loose bowel movement and the last bowel movement she had was within the past 24 hours. She currently is not nauseated. She stated that she has chronic ulcer on her right foot that is under the care of wound clinic and Dr. Wyman. She changes the dressings every other day. She has not had problems with the foot ulcer. She denies any recent febrile illness. Please also note that the patient was just recently diagnosed with the UTI and placed on Bactrim 3 days ago. She denies exercise intolerance problems and dyspnea on exertion or chest pain with exertion, but she does not exercise regularly and her ambulatory status is somewhat limited due to right leg ulcer. Remaining 12 systems were reviewed with the patient and were otherwise negative. PHYSICAL EXAMINATION GENERAL: The patient is a pleasant 53-year-old female, who is in no acute distress. Awake, alert, and oriented x3. VITAL SIGNS: Blood pressure of 128/78, heart rate of 83 and regular, respiratory rate 19, oxygen saturation 96% on room air, temperature of 97.3. HEENT: Head atraumatic and normocephalic. Eyes: Pupils are equal and reactive to light and accommodation. Oropharynx is clear. Mucosa moist. NECK: Supple. No JVD. No bruits bilaterally. RESPIRATORY: Clear to auscultation bilaterally. CARDIOVASCULAR: Regular rate and rhythm. No murmurs. ABDOMEN: Soft, nontender. Bowel sounds present in all 4 quadrants EXTREMITIES: There is no edema. Pulses +2 bilaterally. There is no clubbing or cyanosis. NEURO EVALUATION: Speech is clear. Cranial nerves II through XII grossly intact. Motor strength is 5/5 bilaterally. SKIN: On evaluation of the skin, the patient has a small crater-like ulceration on the lateral aspect at the bottom of her right foot. The area is approximately 1 cm in diameter, covered with eschar. There is no evidence of cellulitis. Skin is very dry. There are no lesions appreciated on skin evaluation. DIAGNOSTIC STUDIES/LAB DATA: Laboratory Data: White blood cell count of 8.6, hemoglobin 11.7, hematocrit 35, and platelets of 337. Sodium of 132, potassium 4.3, chloride 95, carbon dioxide 26, BUN 15, creatinine was 1.28. Liver function tests are unremarkable. The patient's glucose was 307, lactic acid of 3.0, troponin of 0.04 . TSH was 0.26. The patient's EKG showed old inferior MN and right bundle-branch block which is chronic in this patient. Portable chest x-ray was reviewed by myself prior to the official radiologist report and showed normal cardiac silhouette with no gross evidence of pulmonary abnormalities and poor inspiration. ASSESSMENT AND PLAN: 1. Left upper chest burning radiating into her right shoulder during vomiting. The patient's symptoms unlikely gastrointestinal related. Nevertheless, the patient has history of significant cardiac disease and she is going to be placed on overnight observation on telemetry monitored bed for followup troponins. I offered to the patient to undergo a cardiac stress test but she is not interested. She feels weak and tired due to her gastrointestinal problems and she would prefer not to do it unless it is necessary. 2. Nausea and vomiting. The patient has a history of gastrointestinal problems in the past 1 month after she ate a hamburger in a restaurant. The patient also stated her has had the similar symptoms. The patient has had regular frequency bowel movements that are somewhat loose. She denies any abdominal pain. She stated that she has not vomited for a week until last night. At this point, I suspect that may be starting her on antibiotics like Bactrim could cause gastrointestinal upset. For the time being, I will hold the antibiotics as the patient already received 3 days of antibiotic treatment. I will repeat her urinalysis and I will observe. 3. The patient's creatinine is mildly elevated. She does have mild chronic kidney disease, likely due to her diabetes in stage 3, currently, with mild worsening. She appears mildly dehydrated. She is going to be started on intravenous fluids and her Lasix is going to be held. 4. The patient's right foot ulcer appears chronic, slowly healing with no evidence of infection. 5. In regards to the patient's history of coronary artery disease, as mentioned above, observation on telemetry. Her aspirin and Plavix are going to be continued. 6. For the patient's uncontrolled diabetes, the patient stated that her sugar levels in the 300s are her norm. I am unsure whether she is taking insulin 70/ 30 three times a day. For the time being, I will hold the Novolin and place the patient on insulin sliding scale in addition to her insulin Lantus which I will lower the dose to 100 units daily due to the patient's poor p.o. intake. 7. For DVT prophylaxis, the patient is at low risk and ambulation is going to be encouraged. 8. The patient's code status is full and her surrogate is her . TIME SPENT: Approximately 70 minutes was spent on admission of this patient, more than half of that time was spent face to face with the patient during the interview and physical exam. [id number]/[facility] #: [id number] TUCKER
[2018-10-25] MEDS ORDERED: CMCS:Pantoprazole TAB (NF) 40 MG TAB PO SCH (06:00)
[2018-10-25 08:05] LABS: Free T4 1.39 ng/dL (0.61-1.12)
[2018-10-25] MEDS: Insulin LISPRO* 1 UNITS UNIT SUBCUT SCH ×2 (08:56→12:31)
[2018-10-25] MEDS ORDERED: Insulin GLARGINE(*) 1 UNITS UNIT SUBCUT SCH (09:00)
[2018-10-25] MEDS ORDERED: Aspirin EC TAB* 81 MG TAB.EC PO SCH (09:00)
[2018-10-25] MEDS ORDERED: Clopidogrel TAB* 75 MG PO SCH (09:00)
[2018-10-25] MEDS ORDERED: Gabapentin CAP(*) 300 MG PO SCH (09:00)
[2018-10-25 10:48] LABS: Urine Appearance Cloudy; Urine Bacteria 2+ (Absent); Urine Bilirubin Negative (Negative); Urine Blood 1+ (Negative); Urine Color Yellow; Urine Glucose 2+(150 mg/dL) (Negative); Urine Ketones Negative (Negative); Urine Nitrite Negative (Negative); Urine Protein 1+(30 mg/dL) (Negative); Urine Red Blood Cell 1+(3-5/hpf) (Absent); Urine Specific Gravity 1.005 (1.010-1.030); Urine Urobilinogen Negative (Negative); Urine White Blood Cell 3+(>20/hpf) (Absent)
[2018-10-25 11:07] VITALS: BP 99/51
[2018-10-25] MEDS ORDERED: Atorvastatin* 80 MG TAB PO SCH (18:00)
--- NOTE | 2018-10-25 20:09 | DS ---
CC: Dr. Garcai; Dr. Tomas Grimaldo * DISCHARGE SUMMARY: DATE OF ADMISSION: 10/25/18 DATE OF DISCHARGE: 10/25/18 PRINCIPAL DISCHARGE DIAGNOSES: 1. Atypical chest pain. 2. Urinary tract infection. 3. Gastroesophageal reflux disease. SECONDARY DISCHARGE DIAGNOSES: 1. Coronary artery disease, status post CABG. 2. Nonhealing right foot wound. 3. Poorly controlled diabetes. 4. Ischemic cardiomyopathy, EF 40%. 5. Diabetic neuropathy. 6. Peripheral vascular disease. 7. History of severe mitral regurgitation, status post replacement. HOSPITAL COURSE: 1. Atypical chest pain. Ms. Chavez has a significant history of coronary disease and came in with chest burning that began on 10/24/18. She does have history of GERD and also reports that ever since she ate a mushroom hamburger a few weeks ago at [facility], she has had indigestion, but then the burning sensation occurred and was new on 10/24/18 and it lasted about an hour and a half, so she came to the emergency department. The pain resolved in the ED after she received a GI cocktail and it did not return. She was admitted, placed on telemetry, and her troponins were trended. Her troponins were 0.0004 , 0.04, and 0.04. An EKG showed Q waves inferiorly and a right bundle-branch block. This is unchanged from prior EKGs. She was offered a stress test, which was suggested to her by Dr. Puentes, but she declined. Of note, her D-dimer is also very slightly elevated for an age- adjusted cutoff; her D-dimer is 559, so I spoke with her about the possibility of a DVT/PE. She is at risk for DVT/ PE due to a nonhealing foot wound and relative immobility. However, she does admit that she walks around her house throughout the day despite instruction to stay off of the wound. Still her Wells score was low and her chest discomfort resolved with a GI cocktail, so the clinical picture is less indicative of a PE than of GERD. She is instructed to come back to the emergency department should the pain recur and I have instructed her to buy over- the-counter Maalox for any further indigestion symptoms. She is to follow up with her commission auditor , Dr. Grimlado, within 1 week of discharge and her primary care physician as well. 2. UTI. She had been started on Bactrim as an outpatient by her primary care physician. A UA here showed ongoing infection, so she is instructed to continue this. Her culture should be followed up as an outpatient. 3. Coronary artery disease, status post CABG. She is continued on Plavix, aspirin, and a statin. 4. Nonhealing right foot wound. She follows with Dr. Wyman for this. There was no evidence of infection. 5. Diabetic neuropathy, at baseline. She was continued on gabapentin. 6. Poorly controlled diabetes. She was continued on her home dose of Toujeo and Novolin. DISCHARGE MEDICATIONS: 1. Gabapentin 300 mg daily. 2. Aspirin 81 mg daily. 3. Lasix 40 mg daily. 4. Tradjenta 5 mg daily. 5. Plavix 75 mg daily. 6. Lipitor 80 mg daily. 7. Calcium carbonate 200 mg q.4 p.r.n. indigestion. 8. Colace 100 mg b.i.d. p.r.n. constipation. 9. Protonix 40 mg daily. 10. Toujeo 120 units daily. 11. NPH 15 units with each meal. 13. Bactrim 1 tab b.i.d. TIME SPENT: 40 minutes were spent on this discharge. [id number]/[id number] #: [id number] TUCKER
== END 2018-10-25 13:45 | disposition home or self-care (01) ==
LOC: ED 00:52 → MEDTELE 02:58
PROVIDERS: ADMIT Internal Medicine; ATTEND Internal Medicine
DX: R07.89 Other chest pain (principal); N39.0 Urinary tract infection, site not specified; K21.9 Gastro-esophageal reflux disease without esophagitis; I25.10 Atherosclerotic heart disease of native coronary artery without angina pectoris; Z95.5 Presence of coronary angioplasty implant and graft; L97.509 Non-pressure chronic ulcer of other part of unspecified foot with unspecified severity; E11.65 Type 2 diabetes mellitus with hyperglycemia; I25.5 Ischemic cardiomyopathy; E11.40 Type 2 diabetes mellitus with diabetic neuropathy, unspecified; I73.9 Peripheral vascular disease, unspecified; Z95.4 Presence of other heart-valve replacement; Z79.82 Long term (current) use of aspirin; Z79.01 Long term (current) use of anticoagulants; Z87.891 Personal history of nicotine dependence
CPT/HCPCS: 36415; 71045; 80053; 81003; 81015; 83605; 83880; 84439; 84443; 84479; 84484; 85025; 85379; 85610; 87086; 93005; 96374; 99285; A9270-GY; G0378

== ENCOUNTER 2018-11-18 00:54 | Inpatient (IN) | payer MEDICAID, MEDICARE ==
--- NOTE | 2018-11-18 01:10 | ED ---
Shortness of Breath - HPI Summary HPI Summary: This patient is a 53 year old F brought in by ambulance to [facility] with a chief complaint of SOB since 20:00. The patient rates the pain 0/10 in severity. Symptoms aggravated by lying down. Symptoms alleviated by nothing. Patient reports burning CP, cough, edema in right foot and left leg since 1 day ago. Hx COPD and open heart surgery. - History of Current Complaint Chief Complaint: EDShortnessOfBreath Hx Obtained From: Patient Onset/Duration: Sudden Onset, Lasting Hours, Still Present Timing: Constant Current Severity: Mild Dyspnea At: Rest Aggrevating Factors: Recumbent Position Alleviating Factors: Nothing Associated Signs & Symptoms: Cough (Nonproductive), Chest Pain w/Cough, Edema - Allergy/Home Medications Allergies/Adverse Reactions: Allergies Allergy/AdvReac Type Severity Reaction Status Date / Time levofloxacin [From Levaquin] Allergy Nausea And Verified 10/25/18 01:20 Vomiting ondansetron Allergy Hives Verified 10/25/18 01:20 [From Zofran (as hydrochloride)] PMH/Surg Hx/FS Hx/Imm Hx Endocrine/Hematology History: Reports: Hx Anticoagulant Therapy, Hx Diabetes, Hx Anemia Cardiovascular History: Reports: Hx Angina, Hx Angioplasty, Hx Congestive Heart Failure, Hx Coronary Artery Disease, Hx Hypercholesterolemia, Hx Hypertension, Hx Peripheral Vascular Disease, Hx Valvular Heart Disease - mitral valve replacement, Other Cardiovascular Problems/Disorders - cardiomyopathy EF 40%, bipass, PVD Denies: Hx Pacemaker/ICD Respiratory History: Reports: Hx Chronic Obstructive Pulmonary Disease (COPD) GI History: Reports: Hx Gastroesophageal Reflux Disease Musculoskeletal History: Reports: Hx Arthritis - general Sensory History: Reports: Hx Contacts or Glasses Denies: Hx Hearing Aid Opthamlomology History: Reports: Hx Contacts or Glasses Neurological History: Reports: Hx Transient Ischemic Attacks (TIA) - 2014 Psychiatric History: Denies: Hx Panic Disorder - Surgical History Surgery Procedure, Year, and Place: Complete Hysterectomy 2005; [facility]; HEART CATH- 4 CARDIAC STENTS, CABG, MVR Infectious Disease History: No Infectious Disease History: Denies: Traveled Outside the [place] in Last 30 Days - Family History Known Family History: Positive: Cardiac Disease - Social History Alcohol Use: None Hx Substance Use: No Substance Use Type: Reports: None Hx Tobacco Use: Yes Smoking Status (MU): Former Smoker Type: Cigarettes Length of Time of Smoking/Using Tobacco: since she was 11 until 1 year ago Have You Smoked in the Last Year: No Review of Systems Negative: Fever Negative: Epistaxis Positive: Chest Pain Positive: Shortness Of Breath, Cough Negative: Vomiting All Other Systems Reviewed And Are Negative: Yes Physical Exam - Summary Physical Exam Summary: Appearance: Ill-appearing, Well-nourished, lying in bed comfortably. Moderate respiratory distress Skin: Warm, dry, no obvious rash Eyes: sclera anicteric, no conjunctival pallor ENT: mucous membranes moist, pharynx appears normal Neck: Supple, nontender, no JVD Respiratory: crackles diffusely. Moderate respiratory distress Cardiovascular: Breath sounds interfered with ability to listen to heart sounds. Normal distal pulses in tibial and radial bilaterally. Abdomen: Soft, nontender, normal active bowel sounds present Musculoskeletal: Normal, Strength/ROM Intact, mild pitting edema in extremities Neurological: A&Ox3, awake and alert, mentation is normal, speech is fluent and appropriate Psychiatric: affect is normal, does not appear anxious or depressed Triage Information Reviewed: Yes Vital Signs On Initial Exam: Initial Vitals Temp Pulse Resp BP Pulse Ox 98.3 F 127 40 181/106 74 11/18/18 00:58 11/18/18 00:58 11/18/18 00:58 11/18/18 00:58 11/18/18 00:58 Vital Signs Reviewed: Yes Diagnostics - Vital Signs Vital Signs Temp Pulse Resp BP Pulse Ox 11/18/18 00:58 98.3 F 127 40 181/106 74 - Laboratory Result Diagrams: 11/18/18 01:44 11/18/18 01:44 Lab Statement: Any lab studies that have been ordered have been reviewed, and results considered in the medical decision making process. - Radiology CXR Radiology Interpretation Completed By: ED Physician - Dr. Mercado, pending official report Summary of Radiographic Findings: acute pulmonary edema - EKG 01:22 Cardiac Rate: Tachycardia - at 113 bpm EKG Rhythm: Sinus Tachycardia EKG Comparison: No Significant Change - from EKG on 10/25/18 Summary of EKG Findings: sinus tachycardia at 113 bpm with RBBB. No significant change from EKG on 10/25/18 Re-Evaluation - Re-Evaluation First Eval Re-Evaluation Time: 01:43 Change: Improved - On BiPAP the patient is feeling improved, appears to have less work of breathing Course/Dx - Course Course Of Treatment: This patient is a 53 year old F with Hx COPD brought in by ambulance to [facility] with a chief complaint of SOB since 20:00. The patient rates the pain 0/10 in severity. Symptoms aggravated by lying down. Symptoms alleviated by nothing. Patient reports burning CP, cough, edema in right foot and left leg since 1 day ago. An EKG reveals sinus tachycardia at 113 bpm with RBBB. No significant change from EKG on 10/25/18. CXR reveals, per ED physician, acute pulmonary edema. Test results with no significant abnormalities except for elevated troponin. In the ED course the patient was given Lasix and NTG. We discussed patient care with Dr. Neal and they agreed to admit the patient. [place] [facility] The patient is agreeable with this plan. - Diagnoses Provider Diagnoses: Pulmonary edema cardiac cause - Physician Notifications Discussed Care of Patient With: Danya Neal Time Discussed With Above Provider: 02:58 Instructed by Provider To: Admit As Inpatient - Critical Care Time Critical Care Time: 30-74 min - 53-year-old woman with acute respiratory distress from acute cardiogenic pulmonary edema, requiring IV Lasix, nitroglycerin glycerin topically, BiPAP therapy/noninvasive positive pressure ventilation and frequent reassessments. Discharge - Sign-Out/Discharge Documenting (check all that apply): Patient Departure - Discharge Plan Condition: Stable Disposition: ADMITTED TO [facility] - Billing Disposition and Condition Condition: STABLE Disposition: Admitted to [facility] - Attestation Statements Document Initiated by [place]: Yes Documenting Scribe: Tiny Rhodes Provider For Whom Chelsie is Documenting (Include Credential): Andrea Mercado MD Scribmadiha Attestation: Tiny Overton, scribed for Andrea Mercado MD on 11/18/18 at 0439. Scribe Documentation Reviewed: Yes Provider Attestation: The documentation as recorded by the Tiny izaguirre accurately reflects the service I personally performed and the decisions made by me, Andrea Mercado MD Status of Scribe Document: Viewed
[2018-11-18] MEDS ORDERED: Furosemide IV* 10 MG/ML VIAL (40 MG) IV ONE (01:39)
[2018-11-18] MEDS ORDERED: Nitro 2% OINT* (Nitroglycerin) 1 INCH/PAK PAK TOPICAL ONE (01:39)
[2018-11-18 02:20] LABS: Hematocrit 32 % (35-47); Hemoglobin 10.5 g/dl (12.0-16.0); Mean Corpuscular HGB Conc 33 g/dl (31-36); Mean Corpuscular Hemoglobin 29 pg (27-31); Mean Corpuscular Volume 88 fL (80-97); Mean Platelet Volume 7.4 fL (7.4-10.4); Platelet Count 395 10^3/ul (150-450); Red Blood Count 3.64 10^6/ul (4.00-5.40); Red Cell Distribution Width 18 % (10.5-15); White Blood Count 16.1 10^3/ul (3.5-10.8)
[2018-11-18 02:21] LABS: ABS Basophils 0.1 10^3/ul (0-0.2); ABS Eosinophils 0.2 10^3/ul (0-0.6); ABS Lymphocytes 1.3 10^3/ul (1.0-4.8); ABS Monocytes 0.5 10^3/ul (0-0.8); ABS Neutrophils 14.1 10^3/ul (1.5-7.7); ABS Nucleated RBC 0 10^3/ul; Eosinophil % 1.1 %; Lymphocyte % 8.2 %; Nucleated Red Blood Cells % 0
[2018-11-18 02:44] LABS: Troponin I 0.1 ng/mL (<0.04)
[2018-11-18 02:53] LABS: Albumin 3.9 g/dL (3.2-5.2); BUN/Creatinine Ratio 16.5 (8-20); Calcium 9.3 mg/dL (8.6-10.3); EGFR African American 47.8 (>60); EGFR Non-African American 39.5 (>60); Globulin 4.1 g/dL (2-4); Potassium 3.8 mmol/L (3.5-5.0)
[2018-11-18 02:54] LABS: Total Bilirubin 0.5 mg/dL (0.2-1.0)
[2018-11-18] MEDS ORDERED: Gabapentin CAP(*) 300 MG PO PRN (03:16)
[2018-11-18] MEDS ORDERED: Calcium Carbonate CHEW TAB* 500 MG (TUMS) PO PRN (03:16)
[2018-11-18] MEDS ORDERED: Docusate CAP* 100 MG PO PRN (03:16)
[2018-11-18] MEDS ORDERED: Aspirin 81 mg CHEW TAB* 81 MG TAB.CHEW PO ONE (03:18)
--- NOTE | 2018-11-18 03:27 | ADMNOTE ---
Subjective Date of Service: 11/18/18 - History and Physical Interval History: HISTORY AND PHYSICAL PRIMARY CARE PROVIDER: Dr. Garcia. CHIEF COMPLAINT: Shortness of breath HISTORY OF PRESENTING ILLNESS: 53 year old Female with Coronary artery disease, CABG, Diabetes, Congestive heart failure EF of 40% who presents to the emergency room because of shortness of breath. This started 24 hours ago, got acutely worse when she laid down. This is associated with lower leg edema, orthopnea. No chest pain, was having cough of white colored sputum production, more productive than her baseline. Has subjective fever with no chills. No recent changes in her sodium intake or fluid intake. No sick contacts. In the emergency room received IV lasix, nitroglycerin, placed on Bipap and feels better. PAST MEDICAL HISTORY Coronary artery disease, status post several stents in the past, a total of 4, Peripheral vascular disease with stenting done in January 2018 to the right lower extremity Gastroesophageal reflux disease. Hyperlipidemia. Cardiomyopathy with EF noted to be 40%. Diabetes with diabetic neuropathy. PAST SURGICAL HISTORY CABG Mitral valve replacement, pig valve SOCIAL HISTORY Lives at home with her , who is her healthcare proxy. 80-pack year smoking history and she quit smoking two years ago. No alcohol use FAMILY HISTORY: Mother: CABG Father: Diabetes, heart disease Review of Systems - Measurements Intake and Output: Intake and Output Last 24 Hours 11/15/18 11/16/18 11/17/18 11/18/18 06:59 06:59 06:59 06:59 Weight 170 lb - Review of Systems Constitutional Symptoms: Positive: Fatigue, Fever Negative: Weakness Dermatology: Negative: Rash, Skin Lesions HEENT: Negative: Change in Hearing, Vertigo Eyes: Negative: Change in Vision, Eye Pain Thyroid: Negative: Weight Loss, Weight Gain Pulmonary: Positive: Cough, Sputum Negative: Home Oxygen Cardiology: Positive: Shortness of Breath, Swelling of Ankles Negative: Chest Pain, Palpitations Gastroenterology: Positive: Heartburn Negative: Abdominal Pain, Nausea, Vomiting Genital - Urinary: Negative: Dysuria, Hematuria, Polyuria Musculoskeletal: Negative: Joint Pain, Low Back Pain Endocrinology: Positive: Obesity, Diabetes Mellitus Hematologic/Lymphatic: Positive: Use of Antiplatelet Drugs Negative: Anemia Neurology: Negative: Headache, Migraines, Change in Vision, Change in Speech, Numbness\ Paresthesiae Psychiatry: Negative: Depression, Anxiety Objective Active Medications: Albuterol/Ipratropium (Duoneb (Albuterol 2.5 Mg/Ipratropium 0.5 Mg)) 1 neb INH Q6H [facility] Aspirin (Aspirin Ec Tab*) 81 mg PO DAILY [facility] Aspirin (Aspirin Tab*) 162 mg PO ONCE ONE Stop: 11/18/18 03:19 Atorvastatin Calcium (Lipitor*) 80 mg PO QPM [facility] Calcium Carbonate (Tums*) 200 mg PO Q4H PRN PRN Reason: INDIGESTION Clopidogrel Bisulfate (Plavix Tab*) 75 mg PO DAILY [facility] Docusate Sodium (Colace Cap*) 100 mg PO BID PRN PRN Reason: CONSTIPATION Furosemide (Lasix Iv*) 40 mg IV DAILY [facility] Gabapentin (Neurontin Cap(*)) 300 mg PO DAILY PRN PRN Reason: PAIN Heparin Sodium (Porcine) (Heparin Vial(*)) 5,000 units SUBCUT Q12HR [facility] Ceftriaxone Sodium 1 gm/ (Sodium Chloride) 50 mls @ 200 mls/hr IVPB Q24H [facility] Azithromycin 500 mg/ Sodium (Chloride) 250 mls @ 250 mls/hr IVPB Q24H [facility] Linagliptin (Tradjenta (Nf)) 5 mg PO DAILY [facility] Non-Formulary Medication (Insulin Glargine,Hum.Rec.Anlog [Tomonse Julian]) 120 unit SQ DAILY [facility] Pantoprazole Sodium (Protonix Tab*) 40 mg PO DAILY@0600 [facility] Vital Signs - 8 hr 11/18/18 11/18/18 11/18/18 00:58 01:31 01:56 Temperature 98.3 F Pulse Rate 127 119 114 Respiratory 40 16 28 Rate Blood Pressure 181/106 137/86 (mmHg) O2 Sat by Pulse 74 98 100 Oximetry 11/18/18 11/18/18 11/18/18 02:00 02:26 02:56 Temperature Pulse Rate 113 108 105 Respiratory 30 24 32 Rate Blood Pressure 116/80 116/74 (mmHg) O2 Sat by Pulse 100 100 100 Oximetry 11/18/18 03:00 Temperature Pulse Rate 103 Respiratory 25 Rate Blood Pressure (mmHg) O2 Sat by Pulse 100 Oximetry Oxygen Devices in Use Now: BiPAP Appearance: Obese female sitting on ER stretcher with bipap. Not in distress Eyes: No Scleral Icterus, PERRLA Ears/Nose/Mouth/Throat: Mucous Membranes Moist Neck: NL Appearance and Movements; NL JVP, Trachea Midline Respiratory: - - tachypnea on Bipap, crackles 1/[address] up the lung herrera with mild expiratory wheezing. Cardiovascular: RRR, - - 2/6 systolic murmur at the apex, 2+ pitting edema bilateral lower extrmeities. No chest wall tenderness Abdominal: No Hepatosplenomegaly Extremities: - - 2+ pitting edema bilateral lower extremity. Skin: No Rash or Ulcers Neurological: Alert and Oriented x 3, NL Muscle Strength and Tone Result Diagrams: 11/18/18 01:44 11/18/18 01:44 Diagnostic Imaging: Chest xray: official read pending, per my read vascular congestion with possible infiltrate at the left lower lobe. EKG Data: Sinus tachycardia with RBBB unchanged from prior EKG Assess/Plan/Problems-Billing Assessment: - Patient Problems (1) CHF exacerbation Current Visit: Yes Status: Acute Code(s): I50.9 - HEART FAILURE, UNSPECIFIED SNOMED Code(s): 47086489 Comment: IV lasix, strict I/O fluid restriction check echo mildly elevated trop: likley due to CHF exacerbation, will check serial trop, will give 162mg aspirin now. (2) Diabetes Current Visit: Yes Status: Acute Code(s): E11.9 - TYPE 2 DIABETES MELLITUS WITHOUT COMPLICATIONS SNOMED Code(s): 37300975 Comment: continue home dose long acting lantus change 70/30 to sliding scale continue linagliptin (3) CAD (coronary artery disease) Current Visit: No Status: Acute Code(s): I25.10 - ATHSCL HEART DISEASE OF [place] CORONARY ARTERY W/O ANG PCTRS SNOMED Code(s): 55513220 Comment: mildly elevated troponin due to CHF exacerbation continue asa, plavix, statin (4) Pneumonia Current Visit: Yes Status: Acute Code(s): J18.9 - PNEUMONIA, UNSPECIFIED ORGANISM SNOMED Code(s): 652094754 Comment: Possible Left lower lobe pneumonia will give rocephin, azithromycin. check sputum culture, check influenza, get blood culture (5) DVT prophylaxis Current Visit: Yes Status: Acute Code(s): WUX7690 - SNOMED Code(s): 352147871 Comment: heparin subQ Medications/Allergies Medications: Home Medications Medication Instructions Recorded Confirmed Type Aspirin [Aspirin 81 MG TAB] 81 mg PO DAILY 05/24/17 11/18/18 History Atorvastatin* [Lipitor 80 MG*] 80 mg PO QPM 05/24/17 11/18/18 History Clopidogrel TAB* [Plavix TAB*] 75 mg PO DAILY 05/24/17 11/18/18 History Furosemide TAB* [Lasix TAB*] 40 mg PO DAILY 05/24/17 11/18/18 History Gabapentin CAP(*) [Neurontin 300 300 mg PO DAILY PRN 05/24/17 11/18/18 History CAP(*)] Linagliptin (NF) [Tradjenta (NF)] 5 mg PO DAILY 05/24/17 11/18/18 History Calcium Carbonate [Tums] 200 mg PO Q4H PRN 05/25/18 11/18/18 History Acetaminophen TAB* [Tylenol TAB*] 650 mg PO Q4H PRN tab 05/26/18 11/18/18 Rx Docusate CAP* [Colace Cap*] 100 mg PO BID PRN cap 05/26/18 11/18/18 Rx Pantoprazole TAB * [Protonix TAB*] 40 mg PO DAILY@0600 #30 tab 05/26/18 Rx Insulin Glargine,Hum.rec.anlog 120 unit SQ DAILY 09/02/18 11/18/18 History [Toustefani Lemus Solostar] Insulin NPH Hum/Reg Insulin Hm 15 unit SQ SEE INSTRUCTIONS 09/02/18 11/18/18 History [Novolin 70-30 Flexpen] Allergies/Adverse Reactions: Allergies Allergy/AdvReac Type Severity Reaction Status Date / Time levofloxacin [From Levaquin] Allergy Nausea And Verified 10/25/18 01:20 Vomiting ondansetron Allergy Hives Verified 10/25/18 01:20 [From Zofran (as hydrochloride)]
[2018-11-18] MEDS ORDERED: Dextrose 50% Syringe 50 ML* 25 GM/50 ML SYRINGE IV PUSH PRN (03:35)
[2018-11-18] MEDS ORDERED: cefTRIAXone(*) 1 GM in NS 0.9% 50 ML* 50 ML IVPB SCH (04:00)
[2018-11-18] MEDS ORDERED: Azithromycin IV(*) 500 MG in NS 0.9% 250 ML* 250 ML IVPB SCH (04:00)
[2018-11-18] MEDS ORDERED: Albuterol/Ipratropium NEB.SOL* Albuterol 2.5 MG/Ipratropium 0.5 MG 3 ML INH SCH (04:00)
[2018-11-18] MEDS: Pantoprazole TAB * 40 MG TAB PO SCH (06:02)
[2018-11-18 06:16] LABS: Influenza A Molecular NEGATIVE (Negative); Influenza B Molecular NEGATIVE (Negative)
[2018-11-18] MEDS ORDERED: Albuterol/Ipratropium NEB.SOL* Albuterol 2.5 MG/Ipratropium 0.5 MG 3 ML INH PRN (08:20)
[2018-11-18] MEDS: Insulin LISPRO* 1 UNITS UNIT SUBCUT SCH ×4 (08:32→21:29)
[2018-11-18] MEDS: Heparin VIAL(*) 5000 UNITS/ML VIAL (FIVE THOUSAND) SUBCUT SCH ×2 (08:33→21:29)
[2018-11-18] MEDS: Clopidogrel TAB* 75 MG PO SCH (08:33)
[2018-11-18] MEDS: Furosemide IV* 10 MG/ML VIAL (40 MG) IV SCH (08:34)
[2018-11-18] MEDS: Aspirin EC TAB* 81 MG TAB.EC PO SCH (08:34)
[2018-11-18] MEDS ORDERED: Linagliptin (NF) 5 MG TAB PO SCH (09:00)
[2018-11-18] MEDS ORDERED: Insulin GLARGINE(*) 1 UNITS UNIT SUBCUT SCH (09:00)
[2018-11-18] MEDS ORDERED: Perflutren Lipid Microsphere* 3 ML VIAL ONE (14:56)
--- NOTE | 2018-11-18 16:27 | ECHO ---
Patient: GABRIEL ZAVALA [facility] Rec#: [id number] : 1965 Date: 11/18/2018 Age: 53y Height: 160 cm / 63.0 in Weight: 77.1 kg / 169.9 lbs Sex: F BSA: 1.8 Room#: 451 Admit Date#: 11/18/2018 Type: Inpatient Referring: Danya Neal Reading: Charan Espinoza MD Technical Sales Consultant: Carol Love RN RDCS CC: Jamaal Garcia MD Transthoracic Echocardiogram Indication: CHF BP: 134/91 HR: 88 Rhythm: NSR Findings History: CAD, PCI, CABG, bioprosthetic MVR, HLD, DM, COPD, PVD, cardiomypathy Technical Comments: The study is technically limited due to poor acoustic windows. The study is technically limited due to patient body habitus. The study is technically limited due to the patient's history of COPD. Left Ventricle: The left ventricular chamber size is normal. Mild concentric left ventricular hypertrophy is observed. There are multiple regional wall motion abnormalities. There is mildly decreased left ventricular systolic function. The estimated ejection fraction is 40-45%. Ventricular septal wall motion has a post-operative appearance. The assessment of diastolic function is non-diagnostic. The basal inferolateral, mid anterolateral, and apical lateral wall segments are hypokinetic (score 2). The basal inferior, and mid inferior wall segments are akinetic (score 3). There is scarring/thinningof the mid inferolateral wall segment (score 5). Overall wallmotion score index is 1.69 Left Atrium: The left atrium is mild to moderately dilated. Right Ventricle: The right ventricular chamber size and systolic function are within normal limits. Right Atrium: The right atrium is mildly dilated. Aortic Valve: The aortic valve structure is not well visualized. The aortic valve leaflets are mildly thickened. There is no evidence of aortic regurgitation. There is no evidence of aortic stenosis. Mitral Valve: A bioprosthetic mitral valve is present. The bioprosthetic mitral valve appears stenotic. The mean gradient is mildly increased at 6 mmhg and slightly increased c/t 05/2018 when it was 5 mmhg. Tricuspid Valve: The tricuspid valve leaflets are normal. There is mild tricuspid regurgitation. There is evidence of mild pulmonary hypertension. There is no tricuspid stenosis. Pulmonic Valve: The pulmonic valve appears normal. There is a trace pulmonic regurgitation. There is no pulmonic stenosis. Pericardium: There is no significant pericardial effusion. A pericardial fat pad is visualized. Aorta: There is no dilatation of the ascending aorta. There is no dilatation of the aortic arch. There is no dilation of the aortic root. Pulmonary Artery: The main pulmonary artery is not well visualized. Venous: The venous system is not well visualized. The inferior vena cava is not visualized. Contrast: Definity was used to optimize study. A total of 2 ml of diluted Definity was given IV. Conclusions Mild concentric left ventricular hypertrophy is observed. There are multiple regional wall motion abnormalities. There is mildly decreased left ventricular systolic function. The estimated ejection fraction is 40-45%. The assessment of diastolic function is non-diagnostic. The left atrium is mild to moderately dilated. The right atrium is mildly dilated. The bioprosthetic mitral valve appears slightly stenotic by doppler mean gradient. The mean gradient is mildly increased at 6 mmhg and slightly increased c/t 05/2018 when it was 5 mmhg. There is mild tricuspid regurgitation. There is mild tricuspid regurgitation. There is evidence of mild pulmonary hypertension. Similar to 05/2018 except for a slight increase in the mean mitral valve gradient. Measurements Name Value Normal Range RVIDd (AP) 2D 2.7 cm (0.9 - 2.6) RVDdMajor (2D) 3.9 cm (2.2 - 4.4) RAd ISD 4CH 5.3 cm (3.4 - 4.9) RA (A4C)W 3.8 cm (2.9 - 4.6) IVSd (2D) 1.1 cm (0.6 - 1) LVPWd (2D) 1.1 cm (0.6 - 1) LVIDd (2D) 4.2 cm (3.6 - 5.4) LVIDs (2D) 3.8 cm - LV FS (2D) 10 % (25 - 45) Aortic Annulus 1.9 cm (1.4 - 2.6) Ao root diameter (2D) 2.7 cm (2.1 - 3.5) Ascending Ao 2.5 cm (2.1 - 3.4) Aortic arch 2.7 cm (1.8 - 3.4) LA dimension (AP) 2D 4 cm (2.3 - 3.8) LAd ISD 4CH 5.5 cm (2.9 - 5.3) LA ISD 4CH W 4.8 cm (2.5 - 4.5) Name Value Normal Range LA ESV BP (A/L) index 43.4 ml/m2 - Name Value Normal Range MV E-wave Vmax 1.8 m/sec - MV deceleration time 292 msec - MV A-wave Vmax 1.2 m/sec - MV E:A ratio 1.5 ratio - LV septal e' Vmax 0.04 m/sec - LV lateral e' Vmax 0.04 m/sec - LV E:e' septal ratio 45 ratio - LV E:e' lateral ratio 45 ratio - Name Value Normal Range AV Vmax 1.5 m/sec - AV VTI 27.5 cm - AV peak gradient 9 mmHg - AV mean gradient 5 mmHg - LVOT diameter 2 cm - LVOT Vmax 1.2 m/sec - LVOT VTI 25.5 cm - LVOT peak gradient 6 mmHg - LVOT mean gradient 3 mmHg - JOSE M Vmax 0.82 m/sec - Name Value Normal Range MV Vmax 1.9 m/sec - MV VTI 43.8 cm - MV peak gradient 14 mmHg - MV mean gradient 6 mmHg - MV PHT 86 msec - MVA (PHT) 2.6 cm2 - MVA (continuity VTI) 1.8 cm2 - Name Value Normal Range TR Vmax 2.7 m/sec - TR peak gradient 29 mmHg - RAP 8 mmHg - RVSP 37 mmHg - Name Value Normal Range PV Vmax 0.81 m/sec - Wallmotion BAS Normal BA Normal BAL Normal ZENAIDA Hypokinetic BI Akinetic BIS Normal MAS Normal MA Normal MAL Hypokinetic MIL Scarring/Thinning [place] Akinetic MIS Normal Normal AA Normal AL Hypokinetic AI Normal APEX Normal
[2018-11-18] MEDS: Atorvastatin* 80 MG TAB PO SCH (17:05)
--- NOTE | 2018-11-18 18:20 | PN ---
Subjective Date of Service: 11/18/18 Interval History: Pt is feeling poorly at the time of my exam (her blood sugar was found to be low at 68). She states that at home she takes 74 units of toujeo as opposed to the 120units ordered as she has been getting low sugars 40-60's at home in the AM upon waking up in the AM. She states her breathing is much better now. It is essentially back to baseline. Objective Active Medications: Albuterol/Ipratropium (Duoneb (Albuterol 2.5 Mg/Ipratropium 0.5 Mg)) 1 neb INH Q4H PRN PRN Reason: SOB/WHEEZING Aspirin (Aspirin Ec Tab*) 81 mg PO DAILY [facility] Last Admin: 11/18/18 08:34 Dose: 81 mg Atorvastatin Calcium (Lipitor*) 80 mg PO QPM [facility] Last Admin: 11/18/18 17:05 Dose: 80 mg Calcium Carbonate (Tums*) 500 mg PO Q4H PRN PRN Reason: INDIGESTION Clopidogrel Bisulfate (Plavix Tab*) 75 mg PO DAILY [facility] Last Admin: 11/18/18 08:33 Dose: 75 mg Dextrose (D50w Syringe 50 Ml*) 12.5 gm IV PUSH .FOR FS < 60 - SS PRN PRN Reason: FS < 60 Docusate Sodium (Colace Cap*) 100 mg PO BID PRN PRN Reason: CONSTIPATION Furosemide (Lasix Iv*) 40 mg IV DAILY [facility] Last Admin: 11/18/18 08:34 Dose: 40 mg Gabapentin (Neurontin Cap(*)) 300 mg PO DAILY PRN PRN Reason: PAIN Heparin Sodium (Porcine) (Heparin Vial(*)) 5,000 units SUBCUT Q12HR [facility] Last Admin: 11/18/18 08:33 Dose: 5,000 units Ceftriaxone Sodium 1 gm/ (Sodium Chloride) 50 mls @ 200 mls/hr IVPB Q24H [facility] Last Admin: 11/18/18 05:14 Dose: 200 mls/hr Azithromycin 500 mg/ Sodium (Chloride) 250 mls @ 250 mls/hr IVPB Q24H [facility] Last Admin: 11/18/18 05:45 Dose: 250 mls/hr Insulin Glargine (Lantus(*)) 74 units SUBCUT DAILY [facility] Insulin Human Lispro (Humalog*) 0 units SUBCUT ACHS [facility]; Protocol Last Admin: 11/18/18 17:05 Dose: 6 units Pantoprazole Sodium (Protonix Tab*) 40 mg PO DAILY@0600 [facility] Last Admin: 11/18/18 06:02 Dose: 40 mg Vital Signs - 8 hr 11/18/18 11/18/18 11/18/18 11:00 11:13 13:09 Temperature 97.1 F 96.0 F Pulse Rate 91 89 Respiratory 16 22 Rate Blood Pressure 89/47 110/58 (mmHg) O2 Sat by Pulse 97 95 Oximetry 11/18/18 15:42 Temperature 96.7 F Pulse Rate 91 Respiratory 18 Rate Blood Pressure 101/59 (mmHg) O2 Sat by Pulse 94 Oximetry Oxygen Devices in Use Now: Nasal Cannula Appearance: Middle aged female sitting up in bed, NAD Eyes: No Scleral Icterus Ears/Nose/Mouth/Throat: Mucous Membranes Moist Respiratory: Symmetrical Chest Expansion and Respiratory Effort, Clear to Auscultation - few bibasilar crackles Cardiovascular: NL Sounds; No Murmurs; No JVD, RRR, - - trace LE edema Abdominal: NL Sounds; No Tenderness; No Distention Extremities: No Clubbing, Cyanosis Skin: No Nodules or Sclerosis Neurological: Alert and Oriented x 3 Result Diagrams: 11/18/18 01:44 11/18/18 01:44 Microbiology and Other Data: Microbiology 11/18/18 05:35 Influenza Types A,B Antigen - Final Nasopharyngeal Specimen received for Influenza A/B Molecular testing Diagnostic Imaging: Chest xray: official read pending, per my read vascular congestion with possible infiltrate at the left lower lobe. EKG Data: Sinus tachycardia with RBBB unchanged from prior EKG Assess/Plan/Problems-Billing Ms Chavez is a 53 yo F who has a h/o type II DM, CAD s/p CABG, systolic CHF secondary to an ischemic CM and PVD who presented to the ER with c/o SOB and was admitted for a presumed acute decompensated systolic CHF exacerbation. - Patient Problems (1) Acute systolic CHF (congestive heart failure) Current Visit: Yes Status: Acute Code(s): I50.21 - ACUTE SYSTOLIC ( CONGESTIVE) HEART FAILURE SNOMED Code(s): 884641520 Comment: The patient states she is much improved in terms of her breathing. She continues to have mild crackles at the bases. Will continue lasix 40mg IV daily. Echo done today reveals an EF of 40-45% with multiple regional wall motion abnormalities. It is unclear when she decompensated as she denied any dietary indiscretions. (2) Elevated troponin Current Visit: Yes Status: Acute Code(s): R74.8 - ABNORMAL LEVELS OF OTHER SERUM ENZYMES SNOMED Code(s): 939016116 Comment: Likely secondary to CHF exacerbation. Troponin has climbed slightly through the day-new level pending. No c/o chest pain. She had an outpatient stress test in 04/2018 with no significant ischemia. She is s/p CABG. Follow up with Dr. Grimaldo on discharge. (3) Type II diabetes mellitus Current Visit: Yes Status: Acute Comment: The patient has been having issues with blood sugar control at home. She was ordered 120units of toujeo at home but had only been taking 74 units and with that her sugars would go low in the AM. She was low today when she received 96 units of lantus. Will reduce the lantus dose to 74 units SQ daily and monitor the sugars. Continue to monitor sugars and use the lispro sliding scale. She states at home she takes humalog 15 units with each meal. Her A1c is markedly improved from the last check. She would likely benefit from endocrinology evalulation as an outpatient to determine an optimal medication regimen. Her tradjenta is on hold as it is non- formulary. (4) COPD (chronic obstructive pulmonary disease) Current Visit: Yes Status: Acute Code(s): J44.9 - CHRONIC OBSTRUCTIVE PULMONARY DISEASE, UNSPECIFIED SNOMED Code(s): 16722956 Comment: Pt with extensive smoking history-no formal diagosis of COPD has been made but is suspected because of her smoking history. No signs of exacerbation at this time. (5) DVT prophylaxis Current Visit: Yes Status: Acute Code(s): IPD3593 - SNOMED Code(s): 901650307 Comment: SQ heparin (6) Full code status Current Visit: Yes Status: Acute Code(s): Z78.9 - OTHER SPECIFIED HEALTH STATUS SNOMED Code(s): 120983917
[2018-11-19] MEDS: Pantoprazole TAB * 40 MG TAB PO SCH (05:38)
--- NOTE | 2018-11-19 06:10 | PN ---
Hospitalist Progress Note Date of Service: 11/19/18 Patient having symptomatic hypoglycemia, blood sugar in the 40's. Will give push of dextrose now, and decrease lantus from 74 units to 60 units. Patient normally takes Toujeo - was supposed to be taking 120 units, but was only taking 74 units. But on 11/18 did receive lantus 96 units (equivalent of Toujeo 120 units). subsequently lantus decreased to 74 units. Today I will further decrease the lantus to 60 units to avoid hypoglycemia.
[2018-11-19 06:22] LABS: ABS Basophils 0 10^3/ul (0-0.2); ABS Eosinophils 0.2 10^3/ul (0-0.6); ABS Lymphocytes 2.2 10^3/ul (1.0-4.8); ABS Monocytes 0.5 10^3/ul (0-0.8); ABS Neutrophils 5.5 10^3/ul (1.5-7.7); ABS Nucleated RBC 0 10^3/ul; Eosinophil % 2.9 %; Hematocrit 27 % (35-47); Hemoglobin 9.1 g/dl (12.0-16.0); Lymphocyte % 25.4 %; Mean Corpuscular HGB Conc 33 g/dl (31-36); Mean Corpuscular Hemoglobin 29 pg (27-31); Mean Corpuscular Volume 87 fL (80-97); Mean Platelet Volume 7.4 fL (7.4-10.4); Nucleated Red Blood Cells % 0.1; Platelet Count 349 10^3/ul (150-450); Red Blood Count 3.15 10^6/ul (4.00-5.40); Red Cell Distribution Width 18 % (10.5-15); White Blood Count 8.5 10^3/ul (3.5-10.8)
[2018-11-19 06:39] LABS: BUN/Creatinine Ratio 33.3 (8-20); Calcium 9.5 mg/dL (8.6-10.3); EGFR African American 56.6 (>60); EGFR Non-African American 46.8 (>60); Potassium 3.6 mmol/L (3.5-5.0)
[2018-11-19] MEDS: Insulin LISPRO* 1 UNITS UNIT SUBCUT SCH ×4 (06:55→22:05)
[2018-11-19] MEDS ORDERED: Insulin GLARGINE(*) 1 UNITS UNIT SUBCUT SCH ×2 (09:00)
[2018-11-19] MEDS: Aspirin EC TAB* 81 MG TAB.EC PO SCH (09:04)
[2018-11-19] MEDS: Furosemide IV* 10 MG/ML VIAL (40 MG) IV SCH (09:04)
[2018-11-19] MEDS: Clopidogrel TAB* 75 MG PO SCH (09:04)
[2018-11-19] MEDS: Heparin VIAL(*) 5000 UNITS/ML VIAL (FIVE THOUSAND) SUBCUT SCH ×2 (09:05→22:05)
--- NOTE | 2018-11-19 16:27 | PN ---
Subjective Date of Service: 11/19/18 Interval History: Feeling better but not back to baseline. Does not know what provoked this decompensation. She had some chest discomfort prior to admission that was relieved with a PPI. She has no chest pain now. Her blood glucose was 43 early this morning after receiving 96U of lantus yesterday morning. She received dextrose and responded well. She was symptomatic. Her family is here visiting. She does not feel ready to go home. Objective Active Medications: Albuterol/Ipratropium (Duoneb (Albuterol 2.5 Mg/Ipratropium 0.5 Mg)) 1 neb INH Q4H PRN PRN Reason: SOB/WHEEZING Aspirin (Aspirin Ec Tab*) 81 mg PO DAILY [facility] Last Admin: 11/19/18 09:04 Dose: 81 mg Atorvastatin Calcium (Lipitor*) 80 mg PO QPM [facility] Last Admin: 11/18/18 17:05 Dose: 80 mg Calcium Carbonate (Tums*) 500 mg PO Q4H PRN PRN Reason: INDIGESTION Clopidogrel Bisulfate (Plavix Tab*) 75 mg PO DAILY [facility] Last Admin: 11/19/18 09:04 Dose: 75 mg Dextrose (D50w Syringe 50 Ml*) 12.5 gm IV PUSH .FOR FS < 60 - SS PRN PRN Reason: FS < 60 Last Admin: 11/19/18 06:10 Dose: 12.5 gm Docusate Sodium (Colace Cap*) 100 mg PO BID PRN PRN Reason: CONSTIPATION Furosemide (Lasix Iv*) 40 mg IV DAILY [facility] Last Admin: 11/19/18 09:04 Dose: 40 mg Gabapentin (Neurontin Cap(*)) 300 mg PO DAILY PRN PRN Reason: PAIN Heparin Sodium (Porcine) (Heparin Vial(*)) 5,000 units SUBCUT Q12HR [facility] Last Admin: 11/19/18 09:05 Dose: 5,000 units Insulin Glargine (Lantus(*)) 60 units SUBCUT DAILY [facility] Last Admin: 11/19/18 09:05 Dose: 60 units Insulin Human Lispro (Humalog*) 0 units SUBCUT ACHS [facility]; Protocol Last Admin: 11/19/18 12:13 Dose: 3 units Pantoprazole Sodium (Protonix Tab*) 40 mg PO DAILY@0600 [facility] Last Admin: 11/19/18 05:38 Dose: 40 mg Vital Signs - 8 hr 11/19/18 11/19/18 11:18 15:31 Temperature 97.9 F 98.0 F Pulse Rate 91 91 Respiratory 20 16 Rate Blood Pressure 128/71 109/59 (mmHg) O2 Sat by Pulse 98 97 Oximetry Oxygen Devices in Use Now: Nasal Cannula Appearance: alert, sitting up in chair in no distress Eyes: No Scleral Icterus Ears/Nose/Mouth/Throat: NL Teeth, Lips, Gums Neck: - - JVP 10cm Respiratory: Symmetrical Chest Expansion and Respiratory Effort, - - crackles at both bases Cardiovascular: NL Sounds; No Murmurs; No JVD, RRR, - - sternotomy healed Abdominal: NL Sounds; No Tenderness; No Distention Lymphatic: No Cervical Adenopathy Extremities: - - 1+ edema b/l Skin: No Rash or Ulcers Neurological: Alert and Oriented x 3 Result Diagrams: 11/19/18 06:12 11/19/18 06:12 Microbiology and Other Data: Microbiology 11/18/18 05:35 Influenza Types A,B Antigen - Final Nasopharyngeal Specimen received for Influenza A/B Molecular testing Diagnostic Imaging: Chest xray: official read pending, per my read vascular congestion with possible infiltrate at the left lower lobe. EKG Data: Sinus tachycardia with RBBB unchanged from prior EKG Assess/Plan/Problems-Billing Ms Chavez is a 53 yo F who has a h/o type II DM, CAD s/p CABG, systolic CHF secondary to an ischemic CM and PVD who presented to the ER with c/o SOB and was admitted for decompensated systolic heart failure . - Patient Problems (1) Hypoglycemia Current Visit: Yes Status: Acute Code(s): E16.2 - HYPOGLYCEMIA, UNSPECIFIED SNOMED Code(s): 776598177 Comment: she was only taking 74 U of toujeo, which converts to 60U of lantus. she still says she was getting lows on 74U, so I am concerned this is still going to be too much I have liberalized her diet to unrestricted (2) Acute systolic CHF (congestive heart failure) Current Visit: Yes Status: Acute Code(s): I50.21 - ACUTE SYSTOLIC ( CONGESTIVE) HEART FAILURE SNOMED Code(s): 663172632 Comment: much improved in terms of her breathing. still with evidence of heart failure clinically will continue lasix 40mg IV daily Echo done yesterday reveals an EF of 40-45% with multiple regional wall motion abnormalities--this is unchanged from prior Etiology of decompensation is dietary vs. ischemia EKG did not show evidence of ischemia and elevated trop likely a reflection of decompensation May consider an outpatient stress since it is the weekend (3) COPD (chronic obstructive pulmonary disease) Current Visit: Yes Status: Acute Code(s): J44.9 - CHRONIC OBSTRUCTIVE PULMONARY DISEASE, UNSPECIFIED SNOMED Code(s): 95097227 Comment: Pt with extensive smoking history-no formal diagosis of COPD has been made but is suspected because of her smoking history. No signs of exacerbation at this time. (4) Diabetes Current Visit: Yes Status: Acute Code(s): E11.9 - TYPE 2 DIABETES MELLITUS WITHOUT COMPLICATIONS SNOMED Code(s): 44093641 Comment: now with hypoglycemia insulin changes as above (5) Elevated troponin Current Visit: Yes Status: Acute Code(s): R74.8 - ABNORMAL LEVELS OF OTHER SERUM ENZYMES SNOMED Code(s): 034192485 Comment: Likely secondary to CHF exacerbation. She had an outpatient stress test in 04/2018 with no significant ischemia. She is s/p CABG. Follow up with Dr. Grimaldo on discharge. (6) Pneumonia Current Visit: Yes Status: Acute Code(s): J18.9 - PNEUMONIA, UNSPECIFIED ORGANISM SNOMED Code(s): 247341667 Comment: Possible Left lower lobe pneumonia will give rocephin, azithromycin. no sputum flu swab pending
[2018-11-19] MEDS: Atorvastatin* 80 MG TAB PO SCH (17:18)
[2018-11-20] MEDS: Pantoprazole TAB * 40 MG TAB PO SCH (05:43)
[2018-11-20] MEDS: Insulin LISPRO* 1 UNITS UNIT SUBCUT SCH ×4 (07:44→21:05)
[2018-11-20] MEDS: Clopidogrel TAB* 75 MG PO SCH (09:07)
[2018-11-20] MEDS: Furosemide IV* 10 MG/ML VIAL (40 MG) IV SCH (09:07)
[2018-11-20] MEDS: Aspirin EC TAB* 81 MG TAB.EC PO SCH (09:07)
[2018-11-20] MEDS: Insulin GLARGINE(*) 1 UNITS UNIT SUBCUT SCH (09:07)
[2018-11-20] MEDS: Heparin VIAL(*) 5000 UNITS/ML VIAL (FIVE THOUSAND) SUBCUT SCH ×2 (09:07→21:07)
--- NOTE | 2018-11-20 16:21 | PN ---
Subjective Date of Service: 11/20/18 Interval History: Feeling much better today. No chest pain, no shortness of breath, no orthopnea. she has been walking around. Objective Active Medications: Albuterol/Ipratropium (Duoneb (Albuterol 2.5 Mg/Ipratropium 0.5 Mg)) 1 neb INH Q4H PRN PRN Reason: SOB/WHEEZING Aspirin (Aspirin Ec Tab*) 81 mg PO DAILY [facility] Last Admin: 11/20/18 09:07 Dose: 81 mg Atorvastatin Calcium (Lipitor*) 80 mg PO QPM [facility] Last Admin: 11/19/18 17:18 Dose: 80 mg Calcium Carbonate (Tums*) 500 mg PO Q4H PRN PRN Reason: INDIGESTION Clopidogrel Bisulfate (Plavix Tab*) 75 mg PO DAILY [facility] Last Admin: 11/20/18 09:07 Dose: 75 mg Dextrose (D50w Syringe 50 Ml*) 12.5 gm IV PUSH .FOR FS < 60 - SS PRN PRN Reason: FS < 60 Last Admin: 11/19/18 06:10 Dose: 12.5 gm Docusate Sodium (Colace Cap*) 100 mg PO BID PRN PRN Reason: CONSTIPATION Furosemide (Lasix Iv*) 40 mg IV DAILY [facility] Last Admin: 11/20/18 09:07 Dose: 40 mg Gabapentin (Neurontin Cap(*)) 300 mg PO DAILY PRN PRN Reason: PAIN Heparin Sodium (Porcine) (Heparin Vial(*)) 5,000 units SUBCUT Q12HR [facility] Last Admin: 11/20/18 09:07 Dose: 5,000 units Insulin Glargine (Lantus(*)) 50 units SUBCUT DAILY [facility] Last Admin: 11/20/18 09:07 Dose: 50 units Insulin Human Lispro (Humalog*) 0 units SUBCUT [facility]; Protocol Last Admin: 11/20/18 12:35 Dose: 6 units Pantoprazole Sodium (Protonix Tab*) 40 mg PO DAILY@0600 [facility] Last Admin: 11/20/18 05:43 Dose: 40 mg Vital Signs - 8 hr 11/20/18 11/20/18 11:22 15:17 Temperature 97.7 F 97.4 F Pulse Rate 89 91 Respiratory 16 14 Rate Blood Pressure 113/58 150/76 (mmHg) O2 Sat by Pulse 98 100 Oximetry Oxygen Devices in Use Now: None Appearance: alert, sitting up eating lunch Eyes: No Scleral Icterus Ears/Nose/Mouth/Throat: NL Teeth, Lips, Gums Neck: - - JVP 8cm Respiratory: Symmetrical Chest Expansion and Respiratory Effort, Clear to Auscultation Cardiovascular: NL Sounds; No Murmurs; No JVD, RRR, - - sternotomy healed Abdominal: NL Sounds; No Tenderness; No Distention Lymphatic: No Cervical Adenopathy Extremities: - - 1+ edema b/l Skin: No Rash or Ulcers Neurological: Alert and Oriented x 3 Result Diagrams: 11/19/18 06:12 11/19/18 06:12 Microbiology and Other Data: Microbiology 11/18/18 05:35 Influenza Types A,B Antigen - Final Nasopharyngeal Specimen received for Influenza A/B Molecular testing Diagnostic Imaging: Chest xray: official read pending, per my read vascular congestion with possible infiltrate at the left lower lobe. EKG Data: Sinus tachycardia with RBBB unchanged from prior EKG Assess/Plan/Problems-Billing Ms Chavez is a 53 yo F who has a h/o type II DM, CAD s/p CABG, systolic CHF secondary to an ischemic CM and PVD who presented to the ER with c/o SOB and was admitted for decompensated systolic heart failure . - Patient Problems (1) Acute systolic CHF (congestive heart failure) Current Visit: Yes Status: Acute Code(s): I50.21 - ACUTE SYSTOLIC ( CONGESTIVE) HEART FAILURE SNOMED Code(s): 551014036 Comment: much improved in terms of her breathing. still with evidence of heart failure clinically will continue lasix 40mg IV daily Echo reveals an EF of 40-45% with multiple regional wall motion abnormalities-- I cannot find a prior echo in the system but am sure she has had one here before. Etiology of decompensation is dietary vs. ischemia EKG did not show evidence of ischemia and elevated trop likely a reflection of decompensation, however she missed no meds and no dietary indiscretion, so given her extensive coronary disease, no cause of decompensation, AND chest pain prior to her admission, she should get a stress test tomorrow before she leaves. (2) Hypoglycemia Current Visit: Yes Status: Acute Code(s): E16.2 - HYPOGLYCEMIA, UNSPECIFIED SNOMED Code(s): 073576729 Comment: she was only taking 74 U of toujeo at home, which converts to 60U of lantus, but she still had a low fasting sugar this morning. I decreased it again to 50U today but she still needs close monitoring since she will be npo after midnight (3) COPD (chronic obstructive pulmonary disease) Current Visit: Yes Status: Acute Code(s): J44.9 - CHRONIC OBSTRUCTIVE PULMONARY DISEASE, UNSPECIFIED SNOMED Code(s): 40336507 Comment: Pt with extensive smoking history-no formal diagosis of COPD has been made but is suspected because of her smoking history. No signs of exacerbation at this time. (4) Diabetes Current Visit: Yes Status: Acute Code(s): E11.9 - TYPE 2 DIABETES MELLITUS WITHOUT COMPLICATIONS SNOMED Code(s): 44067959 Comment: now with hypoglycemia insulin changes as above (5) Elevated troponin Current Visit: Yes Status: Acute Code(s): R74.8 - ABNORMAL LEVELS OF OTHER SERUM ENZYMES SNOMED Code(s): 126061837 Comment: Likely secondary to CHF exacerbation but I cannot rule out ischemia since she had chest pain prior to admission that she said did not feel like gerd and did not respond to ppi (6) Pneumonia Current Visit: Yes Status: Acute Code(s): J18.9 - PNEUMONIA, UNSPECIFIED ORGANISM SNOMED Code(s): 724674994 Comment: Clinically she does not have pneumonia--I am discontinuing antibiotics
[2018-11-20] MEDS: Atorvastatin* 80 MG TAB PO SCH (17:23)
[2018-11-21] MEDS: Pantoprazole TAB * 40 MG TAB PO SCH (05:29)
[2018-11-21] MEDS: Insulin LISPRO* 1 UNITS UNIT SUBCUT SCH ×4 (07:56→21:06)
[2018-11-21] MEDS: Acetaminophen TAB* 325 MG PO PRN (08:17)
[2018-11-21] MEDS: Furosemide IV* 10 MG/ML VIAL (40 MG) IV SCH (08:17)
[2018-11-21] MEDS: Heparin VIAL(*) 5000 UNITS/ML VIAL (FIVE THOUSAND) SUBCUT SCH ×2 (08:17→21:05)
[2018-11-21] MEDS: Aspirin EC TAB* 81 MG TAB.EC PO SCH (08:17)
[2018-11-21] MEDS: Clopidogrel TAB* 75 MG PO SCH (08:17)
[2018-11-21] MEDS ORDERED: Regadenoson* 0.4 MG/5 ML SYRINGE ONE (09:37)
[2018-11-21] MEDS ORDERED: Aminophylline IV* 25 MG/ML 10 ML VIAL ONE (09:38)
[2018-11-21] MEDS: Insulin GLARGINE(*) 1 UNITS UNIT SUBCUT SCH (11:22)
--- NOTE | 2018-11-21 13:14 | PN ---
Subjective Date of Service: 11/21/18 Interval History: Pt feels well. Wt still at 186 lbs but no more SOB and substernal "burning" that pt experienced at admission Objective Active Medications: Acetaminophen (Tylenol Tab*) 650 mg PO Q4H PRN PRN Reason: PAIN Last Admin: 11/21/18 08:17 Dose: 650 mg Albuterol/Ipratropium (Duoneb (Albuterol 2.5 Mg/Ipratropium 0.5 Mg)) 1 neb INH Q4H PRN PRN Reason: SOB/WHEEZING Aspirin (Aspirin Ec Tab*) 81 mg PO DAILY [facility] Last Admin: 11/21/18 08:17 Dose: 81 mg Atorvastatin Calcium (Lipitor*) 80 mg PO QPM [facility] Last Admin: 11/20/18 17:23 Dose: 80 mg Calcium Carbonate (Tums*) 500 mg PO Q4H PRN PRN Reason: INDIGESTION Last Admin: 11/20/18 17:34 Dose: 500 mg Clopidogrel Bisulfate (Plavix Tab*) 75 mg PO DAILY [facility] Last Admin: 11/21/18 08:17 Dose: 75 mg Dextrose (D50w Syringe 50 Ml*) 12.5 gm IV PUSH .FOR FS < 60 - SS PRN PRN Reason: FS < 60 Last Admin: 11/19/18 06:10 Dose: 12.5 gm Docusate Sodium (Colace Cap*) 100 mg PO BID PRN PRN Reason: CONSTIPATION Furosemide (Lasix Iv*) 40 mg IV DAILY [facility] Last Admin: 11/21/18 08:17 Dose: 40 mg Gabapentin (Neurontin Cap(*)) 300 mg PO DAILY PRN PRN Reason: PAIN Heparin Sodium (Porcine) (Heparin Vial(*)) 5,000 units SUBCUT Q12HR [facility] Last Admin: 11/21/18 08:17 Dose: 5,000 units Insulin Glargine (Lantus(*)) 50 units SUBCUT DAILY [facility] Last Admin: 11/21/18 11:22 Dose: 50 units Insulin Human Lispro (Humalog*) 0 units SUBCUT [facility]; Protocol Last Admin: 11/21/18 11:24 Dose: Not Given Pantoprazole Sodium (Protonix Tab*) 40 mg PO DAILY@0600 [facility] Last Admin: 11/21/18 05:29 Dose: 40 mg Vital Signs - 8 hr 11/21/18 11/21/18 11/21/18 07:30 07:50 11:43 Temperature 97.9 F 97.7 F Pulse Rate 87 83 Respiratory 16 16 20 Rate Blood Pressure 116/53 128/72 (mmHg) O2 Sat by Pulse 93 97 Oximetry Oxygen Devices in Use Now: None Appearance: 53 yo F in nAD, aAOx3 Eyes: No Scleral Icterus, PERRLA Ears/Nose/Mouth/Throat: NL Teeth, Lips, Gums, Mucous Membranes Moist Neck: NL Appearance and Movements; NL JVP, Trachea Midline Respiratory: Symmetrical Chest Expansion and Respiratory Effort Cardiovascular: NL Sounds; No Murmurs; No JVD, RRR Abdominal: NL Sounds; No Tenderness; No Distention Lymphatic: No Cervical Adenopathy Extremities: No Clubbing, Cyanosis, - - trace pedal edema b/l Skin: No Rash or Ulcers, No Nodules or Sclerosis Neurological: Alert and Oriented x 3, NL Muscle Strength and Tone Result Diagrams: 11/19/18 06:12 11/19/18 06:12 Microbiology and Other Data: Microbiology 11/18/18 05:35 Influenza Types A,B Antigen - Final Nasopharyngeal Specimen received for Influenza A/B Molecular testing Diagnostic Imaging: Chest xray: official read pending, per my read vascular congestion with possible infiltrate at the left lower lobe. EKG Data: Sinus tachycardia with RBBB unchanged from prior EKG Assess/Plan/Problems-Billing Ms Chavez is a 53 yo F who has a h/o type II DM, CAD s/p CABG, systolic CHF secondary to an ischemic CM and PVD who presented to the ER with c/o SOB and was admitted for decompensated systolic heart failure . - Patient Problems (1) Acute systolic CHF (congestive heart failure) Comment: much improved in terms of her breathing. still with evidence of heart failure clinically will continue lasix 40mg IV daily Echo reveals an EF of 40-45% with multiple regional wall motion abnormalities Etiology of decompensation is dietary vs. ischemia EKG did not show evidence of ischemia and elevated trop likely a reflection of decompensation, however she missed no meds and no dietary indiscretion, so given her extensive coronary disease, no cause of decompensation, AND chest pain prior to her admission, pt got a stress test today that showed ischemia and EF 29%. Awaiting cardiology consult (2) COPD (chronic obstructive pulmonary disease) Comment: Pt with extensive smoking history-no formal diagosis of COPD has been made but is suspected because of her smoking history. No signs of exacerbation at this time. (3) Elevated troponin Comment: Likely secondary to CHF exacerbation but stress test shows ischemia, DR. Vidal's consult pending (4) Hypoglycemia Comment: she was only taking 74 U of toujeo at home, which converts to 60U of lantus, but she still had a low fasting sugar this morning. Lantus was decreased to 50 U daily (5) Diabetes Comment: now with hypoglycemia insulin changes as above (6) DVT prophylaxis Comment: SQ heparin Status and Disposition: inpatient
[2018-11-21] MEDS ORDERED: Diazepam TAB(*) 5 MG PO PRN (15:18)
[2018-11-21] MEDS ORDERED: diPHENhydraMINE PO* 25 MG PO PRN (15:18)
[2018-11-21] MEDS: Atorvastatin* 80 MG TAB PO SCH (17:09)
--- NOTE | 2018-11-21 19:37 | CONS ---
CC: Dr. Garcia; Dr. Tomas Grimaldo * CARDIOLOGY CONSULTATION: DATE OF CONSULT: 11/21/18 INDICATION FOR CONSULTATION: Acute coronary syndrome, coronary artery disease. HISTORY OF PRESENT ILLNESS: The patient is a 53-year-old female with a history of coronary artery disease, history of coronary artery bypass surgery and mitral valve replacement in July of 2017. The patient states for the past couple of nights, she has been having significant chest pain, epigastric pain, and shortness of breath. She states occasionally Tums will improve the symptom. She said last night she was getting ready for bed, she had severe epigastric discomfort, radiating up into her chest. She took a couple of Tums without any relief, then suddenly she became very short of breath and decided to come to the emergency room. In the emergency room, the patient was in congestive heart failure. She was given IV Lasix with significant improvement in her symptoms. The patient had an echocardiogram on admission, which showed an ejection fraction of 40% to 45%. Her mitral valve was functioning normally. The patient underwent a chemical nuclear stress test today, which showed a moderate- to-large area of ischemia to her inferolateral wall. This is her first stress test since her coronary artery bypass surgery. In speaking with the patient this afternoon, she has no symptoms. She has no further chest pain or shortness of breath. PAST MEDICAL HISTORY: Significant for coronary artery disease, coronary artery bypass surgery. As described above, her bypass surgery was a saphenous vein graft to her LAD and a saphenous vein graft to her left circumflex artery. She also had a mitral valve replacement. The patient also has a history of peripheral vascular disease. She has had a right SFA stenting. Other past medical history includes diabetic retinopathy, diabetes, hypertension , hypercholesterolemia, cardiomyopathy, COPD, tobacco abuse. PAST SURGICAL HISTORY: Coronary artery bypass surgery in 2017, hysterectomy, sections, cataract removal, cholecystectomy. OUTPATIENT MEDICATIONS: 1. Losartan 50 mg a day. 2. Plavix 75 mg a day. 3. Ranitidine 300 mg a day. 4. Lasix 40 mg a day. 5. Atorvastatin 80 mg a day. 6. Insulin as directed. 7. Tradjenta 5 mg a day. 8. Gabapentin 300 mg a day. 9. Aspirin 81 mg a day. 10. Coreg 3.125 mg b.i.d. 11. Spironolactone 25 mg a day. 12. Ventolin inhaler. ALLERGIES: ZOFRAN and LEVAQUIN. FAMILY HISTORY: Father had a history of coronary artery disease and rectal cancer. Mother had coronary artery disease. SOCIAL HISTORY: She is . She is on disability. She quit smoking in August of 2017. No alcohol use. Rare exercise. PHYSICAL EXAM: Height is 5 feet and 3 inches, weight is 174 pounds, temperature 97.7, heart rate is 83, blood pressure 128/72, respiratory rate is 20, oxygen saturation 97% on room air. Sclerae anicteric. Oropharynx is pink without erythema. Carotids are 2+ without bruits. JVD is normal. Thyroid is normal. Cardiac Exam: S1, S2, with a 1/6 systolic ejection murmur. No diastolic murmur. PMI is normal. Lungs have decreased breath sounds. There is no rhonchi. There is no dullness to percussion. Abdomen is soft, nontender, nondistended with normoactive bowel sounds. Extremities show no edema. She has decreased pulses in her right dorsalis pedis and popliteal. The patient is awake, alert, and oriented. She moves all 4 extremities equally. DIAGNOSTIC STUDIES/LAB DATA: White count 8.5, hemoglobin 9, hematocrit 27, and platelet count 329. Chemistries: Within normal limits. BUN 40, creatinine 1.2 , which is slightly higher than her baseline. Peak troponin level was 0.17. BNP was 321. AST and ALT are normal. EKG shows normal sinus rhythm, right bundle-branch block, inferior Q waves, no ischemic changes. IMPRESSION: The patient is a 53-year-old female with a history of coronary artery disease, history of mitral valve replacement, who came to the hospital because of congestive heart failure and acute coronary syndrome. Her stress test does show an area of ischemia to her inferolateral wall. This is where she had a saphenous vein graft to her left circumflex artery. She also had a saphenous vein graft to her left anterior descending artery. PLAN/RECOMMENDATIONS: For now, my recommendations with the patient to undergo a cardiac catheterization. The patient is aware of the risks and benefits of this. The patient will start rehydration tonight. We will check laboratory studies in the morning to follow up on her BUN and creatinine. Her other medications will remain the same. [id number]/[facility] #: [id number] [facility]
[2018-11-22] MEDS: NS 0.9% 1000 ML** 1,000 ML IV SCH ×2 (01:09→15:31)
[2018-11-22] MEDS: Pantoprazole TAB * 40 MG TAB PO SCH (06:08)
[2018-11-22 06:53] LABS: ABS Basophils 0.1 10^3/ul (0-0.2); ABS Eosinophils 0.2 10^3/ul (0-0.6); ABS Lymphocytes 1.7 10^3/ul (1.0-4.8); ABS Monocytes 0.4 10^3/ul (0-0.8); ABS Neutrophils 4.6 10^3/ul (1.5-7.7); ABS Nucleated RBC 0 10^3/ul; Eosinophil % 3.1 %; Hematocrit 30 % (35-47); Hemoglobin 9.8 g/dl (12.0-16.0); Lymphocyte % 24.9 %; Mean Corpuscular HGB Conc 33 g/dl (31-36); Mean Corpuscular Hemoglobin 29 pg (27-31); Mean Corpuscular Volume 88 fL (80-97); Mean Platelet Volume 7.8 fL (7.4-10.4); Nucleated Red Blood Cells % 0; Platelet Count 319 10^3/ul (150-450); Red Blood Count 3.37 10^6/ul (4.00-5.40); Red Cell Distribution Width 17 % (10.5-15)
[2018-11-22 07:02] LABS: BUN/Creatinine Ratio 27.7 (8-20); Calcium 9.4 mg/dL (8.6-10.3); EGFR Non-African American 38.9 (>60)
[2018-11-22] MEDS: Clopidogrel TAB* 75 MG PO SCH (07:46)
[2018-11-22] MEDS: Aspirin EC TAB* 81 MG TAB.EC PO SCH (07:46)
[2018-11-22] MEDS: Furosemide IV* 10 MG/ML VIAL (40 MG) IV SCH (07:47)
[2018-11-22] MEDS: Heparin VIAL(*) 5000 UNITS/ML VIAL (FIVE THOUSAND) SUBCUT SCH ×2 (07:47→21:13)
[2018-11-22] MEDS: Insulin LISPRO* 1 UNITS UNIT SUBCUT SCH ×4 (09:03→21:06)
[2018-11-22] MEDS ORDERED: Iohexol 350 (CONTRAST) 200 ML MDV IV ONE ×2 (10:15→10:16)
[2018-11-22] MEDS ORDERED: Lidocaine 1% INJ* 10 MG/ML 30 ML SDV ONE (10:15)
[2018-11-22] MEDS ORDERED: Midazolam* 1 MG/ML 10 ML VIAL (10 MG) ONE (10:15)
[2018-11-22] MEDS ORDERED: Heparin 2 UNITS/ML IVPREMIX* 3,000 ML IV ONE (10:15)
[2018-11-22] MEDS ORDERED: fentaNYL* 50 MCG/ML 2 ML VIAL (100 MCG VIAL) ONE (10:15)
[2018-11-22] MEDS ORDERED: Iodixanol 320 (CONTRAST) 100 ML SDV ONE ×2 (10:20→11:15)
[2018-11-22] MEDS: Insulin GLARGINE(*) 1 UNITS UNIT SUBCUT SCH (13:43)
--- NOTE | 2018-11-22 15:35 | PN ---
Subjective Date of Service: 11/22/18 Interval History: Pt feels well, after cath. Denies CP or SOB Had 2000 ml of OU after straight cath , she cannot urinate on bedpan, when on bedrest Objective Active Medications: Acetaminophen (Tylenol Tab*) 650 mg PO Q4H PRN PRN Reason: PAIN Last Admin: 11/21/18 08:17 Dose: 650 mg Albuterol/Ipratropium (Duoneb (Albuterol 2.5 Mg/Ipratropium 0.5 Mg)) 1 neb INH Q4H PRN PRN Reason: SOB/WHEEZING Aspirin (Aspirin Ec Tab*) 81 mg PO DAILY [facility] Last Admin: 11/22/18 07:46 Dose: 81 mg Atorvastatin Calcium (Lipitor*) 80 mg PO QPM [facility] Last Admin: 11/21/18 17:09 Dose: 80 mg Calcium Carbonate (Tums*) 500 mg PO Q4H PRN PRN Reason: INDIGESTION Last Admin: 11/20/18 17:34 Dose: 500 mg Clopidogrel Bisulfate (Plavix Tab*) 75 mg PO DAILY [facility] Last Admin: 11/22/18 07:46 Dose: 75 mg Dextrose (D50w Syringe 50 Ml*) 12.5 gm IV PUSH .FOR FS < 60 - SS PRN PRN Reason: FS < 60 Last Admin: 11/19/18 06:10 Dose: 12.5 gm Diazepam (Valium Tab(*)) 5 mg PO ONCE PRN PRN Reason: iron erector to Event Coordinator Diphenhydramine HCl (Benadryl Po*) 25 mg PO ONCE PRN PRN Reason: iron erector to Event Coordinator Docusate Sodium (Colace Cap*) 100 mg PO BID PRN PRN Reason: CONSTIPATION Gabapentin (Neurontin Cap(*)) 300 mg PO DAILY PRN PRN Reason: PAIN Heparin Sodium (Porcine) (Heparin Vial(*)) 5,000 units SUBCUT Q12HR [facility] Last Admin: 11/22/18 07:47 Dose: 5,000 units Sodium Chloride (Ns 0.9% 1000 Ml*) 1,000 mls @ 75 mls/hr IV .per rate [facility] Last Admin: 11/22/18 01:09 Dose: 75 mls/hr Insulin Glargine (Lantus(*)) 50 units SUBCUT DAILY [facility] Last Admin: 11/22/18 13:43 Dose: 50 units Insulin Human Lispro (Humalog*) 0 units SUBCUT ACHS [facility]; Protocol Last Admin: 11/22/18 13:43 Dose: 3 units Pantoprazole Sodium (Protonix Tab*) 40 mg PO DAILY@0600 [facility] Last Admin: 11/22/18 06:08 Dose: 40 mg Vital Signs - 8 hr 11/22/18 11/22/18 11/22/18 08:24 11:39 11:40 Temperature 97.9 F Pulse Rate 86 87 87 Respiratory 20 17 Rate Blood Pressure 112/52 158/106 (mmHg) O2 Sat by Pulse 98 90 93 Oximetry 11/22/18 11/22/18 11/22/18 11:44 11:45 11:49 Temperature Pulse Rate 86 86 85 Respiratory 12 15 12 Rate Blood Pressure 154/94 166/94 (mmHg) O2 Sat by Pulse 89 90 91 Oximetry 11/22/18 11/22/18 11/22/18 11:50 11:54 11:55 Temperature Pulse Rate 85 86 87 Respiratory 14 17 14 Rate Blood Pressure 154/88 (mmHg) O2 Sat by Pulse 93 92 92 Oximetry 11/22/18 11/22/18 11/22/18 11:59 12:00 12:04 Temperature Pulse Rate 77 85 Respiratory 22 17 21 Rate Blood Pressure 163/92 170/104 (mmHg) O2 Sat by Pulse 92 92 Oximetry 11/22/18 11/22/18 11/22/18 12:05 12:09 12:10 Temperature Pulse Rate 87 89 88 Respiratory 26 16 26 Rate Blood Pressure 166/99 (mmHg) O2 Sat by Pulse 93 93 91 Oximetry 11/22/18 11/22/18 11/22/18 12:14 12:15 12:19 Temperature Pulse Rate 90 89 87 Respiratory 22 19 20 Rate Blood Pressure 176/110 156/93 (mmHg) O2 Sat by Pulse 93 93 91 Oximetry 11/22/18 11/22/18 11/22/18 12:20 12:24 12:25 Temperature Pulse Rate 88 91 91 Respiratory 19 19 18 Rate Blood Pressure 174/97 (mmHg) O2 Sat by Pulse 90 88 100 Oximetry 11/22/18 11/22/18 11/22/18 12:27 12:29 12:30 Temperature Pulse Rate 89 91 102 Respiratory 19 16 18 Rate Blood Pressure 164/98 167/104 (mmHg) O2 Sat by Pulse 100 91 76 Oximetry 11/22/18 11/22/18 11/22/18 12:34 12:35 12:39 Temperature Pulse Rate 93 89 Respiratory 12 24 18 Rate Blood Pressure 177/113 161/97 (mmHg) O2 Sat by Pulse 96 93 Oximetry 11/22/18 11/22/18 11/22/18 12:40 12:44 12:45 Temperature Pulse Rate 88 91 91 Respiratory 18 17 18 Rate Blood Pressure 172/103 (mmHg) O2 Sat by Pulse 92 93 93 Oximetry 11/22/18 11/22/18 11/22/18 13:10 13:26 13:41 Temperature Pulse Rate Respiratory Rate Blood Pressure 160/91 148/72 153/86 (mmHg) O2 Sat by Pulse Oximetry 11/22/18 11/22/18 11/22/18 13:55 14:11 14:22 Temperature Pulse Rate Respiratory Rate Blood Pressure 151/84 151/81 142/73 (mmHg) O2 Sat by Pulse Oximetry 11/22/18 11/22/18 11/22/18 14:41 15:00 15:10 Temperature 96.7 F Pulse Rate 90 Respiratory 16 Rate Blood Pressure 125/70 135/75 (mmHg) O2 Sat by Pulse 95 Oximetry Oxygen Devices in Use Now: None Appearance: 53 yo F in nAD, aAOx3 Eyes: No Scleral Icterus, PERRLA Ears/Nose/Mouth/Throat: NL Teeth, Lips, Gums, Mucous Membranes Moist Neck: NL Appearance and Movements; NL JVP, Trachea Midline Respiratory: Symmetrical Chest Expansion and Respiratory Effort, Clear to Auscultation Cardiovascular: RRR Abdominal: NL Sounds; No Tenderness; No Distention Lymphatic: No Cervical Adenopathy Extremities: No Edema, No Clubbing, Cyanosis Skin: No Rash or Ulcers, No Nodules or Sclerosis Neurological: Alert and Oriented x 3, NL Muscle Strength and Tone Result Diagrams: 11/22/18 06:15 11/22/18 06:15 Microbiology and Other Data: Microbiology 11/18/18 05:35 Influenza Types A,B Antigen - Final Nasopharyngeal Specimen received for Influenza A/B Molecular testing Diagnostic Imaging: Chest xray: official read pending, per my read vascular congestion with possible infiltrate at the left lower lobe. EKG Data: Sinus tachycardia with RBBB unchanged from prior EKG Assess/Plan/Problems-Billing Ms Yaritzalove is a 53 yo F who has a h/o type II DM, CAD s/p CABG, systolic CHF secondary to an ischemic CM and PVD who presented to the ER with c/o SOB and was admitted for decompensated systolic heart failure . - Patient Problems (1) Acute systolic CHF (congestive heart failure) Comment: much improved in terms of her breathing.clinically euvolemic today. Creat increased. hold diuresis, cont gentle IVF post cath. Echo reveals an EF of 40-45% with multiple regional wall motion abnormalities Etiology of decompensation is dietary vs. ischemia EKG did not show evidence of ischemia and elevated trop likely a reflection of decompensation, however she missed no meds and no dietary indiscretion, so given her extensive coronary disease, no cause of decompensation, AND chest pain prior to her admission, pt got a stress test 11/21/18 that showed ischemia and EF 29%. Cath today did not show any significant stenoses (apart for the ones known) and patent grafts (2) COPD (chronic obstructive pulmonary disease) Comment: Pt with extensive smoking history-no formal diagosis of COPD has been made but is suspected because of her smoking history. No signs of exacerbation at this time. (3) Elevated troponin Comment: Likely secondary to CHF exacerbation (4) Hypoglycemia Comment: she was only taking 74 U of toujeo at home, which converts to 60U of lantus, but she still had a low fasting sugar . Lantus was decreased to 50 U daily (5) Diabetes Comment: now with hypoglycemia insulin changes as above (6) Creatinine elevation Comment: likely due to overdiuresis. Gentle IVF, repeat BMP in aM (7) DVT prophylaxis Comment: SQ heparin Status and Disposition: inpatient
[2018-11-22] MEDS ORDERED: NS 0.9% 1000 ML** 1,000 ML IV SCH (15:45)
[2018-11-22] MEDS: Atorvastatin* 80 MG TAB PO SCH (17:03)
--- NOTE | 2018-11-23 01:44 | CATH ---
CARDIAC CATHETERIZATION REPORT: DATE OF PROCEDURE: 11/22/18 - ROOM #[id number] PROCEDURE: Cardiac catheterization including coronary angiography, saphenous vein graft angiography. INDICATION: Coronary artery disease, angina, abnormal stress test. HISTORY: The patient is a 53-year-old female with a history of coronary artery disease and mitral valve replacement. The patient had a saphenous vein graft to her LAD and a saphenous vein graft to her left circumflex artery. The patient was admitted to the hospital with chest pain. She had minimal elevation in her troponin levels. A stress test showed a moderate area of ischemia to her inferolateral wall with a reduced ejection fraction, and cardiac catheterization was recommended. DESCRIPTION OF PROCEDURE: The patient was brought to the cardiac catheterization lab in a fasting state. Informed consent had been obtained prior to the procedure. All labs were reviewed. The patient was placed supine on the catheterization table. Both femoral arteries were cleaned and draped in the usual fashion. 1% lidocaine was used for local anesthesia. The left femoral artery was entered by Seldinger technique using ultrasound guidance and a 6-Yemeni sheath introducer was placed. The patient underwent coronary angiography, left ventriculogram, ascending aortogram, and saphenous vein graft angiography using a 6-Yemeni pigtail catheter, 6-Yemeni AR1 catheter, 6-Yemeni AR2 catheter, 6-Yemeni JL4 catheter. At the end of the procedure, all sheaths and catheters were removed. The patient tolerated the procedure well. There were no complications. A total of 9.8 minutes of fluoro time was used. A total of 130 cc of Omnipaque dye was used. FINDINGS: HEMODYNAMICS: Central aortic blood pressure 145/76 with a mean of 104. Left ventricular pressure 144/17 with an end-diastolic pressure of 22. LEFT VENTRICULOGRAM: Left ventricle was normal in size. Overall systolic function of the left ventricle is mildly to moderately reduced. Estimated ejection fraction 40%. There is akinesis of the inferobasal wall. There is hypokinesis of the inferior wall. There is no mitral regurgitation. Aortic valve and ascending aorta were normal. ASCENDING AORTOGRAM: The ascending aorta was normal in size. The saphenous vein graft to the left circumflex artery and the left anterior descending artery were well visualized. CORONARY ARTERIES: 1. Left main artery: The left main was normal in size. It bifurcated into the LAD and circumflex. There was no evidence of stenosis. 2. Left anterior descending artery: The LAD was occluded just after the first septal credit assessment analyst. 3. Left circumflex artery: The circumflex artery was occluded in its proximal portion. 4. Right coronary artery: The RCA was known to be small and nondominant and not injected during the study. 5. Saphenous vein graft to the OM1 vessel was open and patent to touch down. The anastomosis was appropriate. There was retrofill of the left circumflex system. 6. Saphenous vein graft to the LAD: The saphenous vein graft to LAD is open and patent. The anastomosis to the LAD is normal. The LAD does retrofill to the proximal occlusion. There are small diagonal branches. Overall, the size of the LAD is very atretic, less than 2 mm in size. IMPRESSION: 1. Proximal LAD and proximal left circumflex artery are occluded. 2. Right coronary artery was noted to be small and nondominant. 3. Saphenous vein graft to the LAD and saphenous vein graft to the left circumflex are open and patent. RECOMMENDATION: The patient will continue on maximal medical therapy. No further interventions are necessary. [id number]/[facility] #: [id number] [facility]
[2018-11-23] MEDS: Acetaminophen TAB* 325 MG PO PRN (04:25)
[2018-11-23] MEDS: Pantoprazole TAB * 40 MG TAB PO SCH (05:20)
[2018-11-23 06:50] LABS: BUN/Creatinine Ratio 27.9 (8-20); Calcium 8.7 mg/dL (8.6-10.3); EGFR African American 52.1 (>60); EGFR Non-African American 43.1 (>60); Potassium 3.7 mmol/L (3.5-5.0)
[2018-11-23] MEDS: Aspirin EC TAB* 81 MG TAB.EC PO SCH (08:48)
[2018-11-23] MEDS: Insulin GLARGINE(*) 1 UNITS UNIT SUBCUT SCH (08:48)
[2018-11-23] MEDS: Insulin LISPRO* 1 UNITS UNIT SUBCUT SCH ×2 (08:48→12:33)
[2018-11-23] MEDS: Clopidogrel TAB* 75 MG PO SCH (08:48)
[2018-11-23] MEDS: Heparin VIAL(*) 5000 UNITS/ML VIAL (FIVE THOUSAND) SUBCUT SCH (08:49)
[2018-11-23 12:31] VITALS: BP 135/69
--- NOTE | 2018-11-23 15:13 | DS ---
CC: Dr. Garcia; Dr. Grimaldo; Dr. Vidal * DISCHARGE SUMMARY: DATE OF ADMISSION: 11/18/18 DATE OF DISCHARGE: 11/23/18 PRIMARY CARE PROVIDER: Dr. Garcia. DISCHARGE DIAGNOSES: 1. Dyspnea and chest pain due to acute systolic congestive heart failure. 2. Abnormal cardiac stress test with cardiac catheterization performed by Dr. Vidal on 11/22/18 with no new findings. SECONDARY DIAGNOSES: 1. History of coronary artery disease, status post several stents in the past and coronary artery bypass grafting in July 2017 as well as porcine mitral valve replacement at the same time. 2. History of peripheral vascular disease with stenting done in January 2018 in the right lower extremity. 3. Gastroesophageal reflux disease. 4. Hyperlipidemia. 5. Cardiomyopathy with ejection fraction of 40% to 45%. 6. Diabetes with diabetic neuropathy. 7. Chronic kidney disease, stage 3, due to diabetes. MEDICATIONS AT DISCHARGE: Include: 1. Aspirin 81 mg daily. 2. Atorvastatin 80 mg daily. 3. Calcium carbonate 200 mg every 4 hours p.r.n. 4. Plavix 75 mg daily. 5. Lasix 40 mg daily, to be started on 11/24/18. 6. Gabapentin 300 mg daily. 7. Insulin glargine 50 units subcutaneously daily. 8. Linagliptin 5 mg daily. 9. Insulin NPH as previously prescribed by the patient's primary. 10. Acetaminophen on a p.r.n. basis. 11. Colace 100 mg b.i.d. 12. Protonix 40 mg daily. CONSULTATIONS DURING THE HOSPITAL STAY: Included Dr. Vidal from Cardiology. PROCEDURES PERFORMED: Included cardiac catheterization performed by Dr. Vidal on 11/22/18, impression: "Proximal LAD and proximal left circumflex artery are occluded. Right coronary artery was noted to be small and nondominant. Saphenous vein graft to the LAD and saphenous vein graft to the left circumflex are open and patent." Cardiac stress test documented on 11/21/18 showed "moderate to large size area of reversible change in the inferior wall extending to the lateral wall, cardiomegaly, and decreased ejection fraction to 24%. There appears to be paradoxical motion in the inferoseptal wall and inferolateral wall." LABORATORY DATA AND STUDIES PERFORMED DURING THE HOSPITAL STAY: Included on , sodium of 138, potassium 3.7, chloride 105, carbon dioxide 27, BUN 36, creatinine 1.29. On 11/22/18, white blood cell count of 7.0, hemoglobin of 9.8 , hematocrit of 30, and platelets of 319. The patient's troponin was maximally elevated at 0.17 on 11/18/18. Microbiology studies showed blood cultures obtained at admission were negative growth. Influenza testing negative at admission. Portable chest x-ray obtained on admission: "Pulmonary interstitial edema." HOSPITALIZATION COURSE: April Chavez is a 53-year-old female with history of congestive heart failure and coronary artery disease, who presented to the hospital complaining of shortness of breath and chest pain. The patient had mildly elevated troponin, was initially thought to be due to demand ischemia. The patient was diuresed with Lasix well and by 11/21/18, she had no longer shortness of breath or paroxysmal nocturnal dyspnea. Her weight remained rather stable in the range of 185 to 186 pounds. On 11/22/18, her creatinine was 1.4 which was higher than prior creatinines in the 1.2 range and her diuresis was stopped. Due to that there was no significant dietary indiscretion or any other factor that could predispose the patient to congestive heart failure exacerbation, a cardiac stress test was performed, which was high risk. Dr. Vidal saw the patient in consultation and recommended cardiac catheterization. It was performed on 11/22/18. During the cardiac catheterization, the patient was noted to be status post coronary artery bypass grafting with occluded coronaries as previously described prior to the bypass. There was no evidence of new stenosis that could contribute to the patient's CHF. The patient also was noted to be hypoglycemic if she was on higher Lantus level than 50 units a day. At discharge, the patient is recommended to follow up with her primary care provider in approximately 4 to 7 days. Her weight at discharge is 185 pounds and she is recommended to weigh herself on a daily basis and to her call doctor for likely increase of her Lasix if her weight gain is above 3 pounds. The patient's insulin Lantus dose at discharge is lowered to 50 units a day. We will not change the patient's Lasix dosing at this point, but once again it was stressed for the patient to follow up with cardiac diet as well with checking her weight. PHYSICAL EXAMINATION: At the time of discharge, blood pressure of 97/45, heart rate of 82 and regular, respiratory rate 16, oxygen saturation 92% on room air, temperature of 96.9. General: The patient is a very pleasant 53-year-old female, who is in no acute distress. Alert, awake, and oriented x3. HEENT: Head: Atraumatic, normocephalic. Eyes: Pupils are equal, reactive to light and accommodation. Oropharynx is clear. Mucosa moist. Neck: Supple. No JVD. No bruits bilaterally. Cardiovascular: Regular rate and rhythm. No murmur. Respiratory: Clear to auscultation bilaterally. Abdomen: Soft, nontender. Bowel sounds are present in all 4 quadrants. Extremities: There is no edema. Pulses are +2 bilaterally. No clubbing or cyanosis. On neuro evaluation, speech is clear. Cranial nerves II through XII grossly intact. Motor strength is 5/5 bilaterally. Please note that this is a short summary of the patient's hospitalization. Please refer to further medical records for details. TIME SPENT: Approximately 40 minutes was spent on the patient's discharge. [id number]/[facility] #: [id number] [facility]
== END 2018-11-23 13:30 | disposition home or self-care (01) | DRG 286 ==
LOC: ED 00:54 → MEDTELE 03:13
PROVIDERS: ADMIT Internal Medicine; ATTEND Internal Medicine
PROC: 5A09357 Assistance with Respiratory Ventilation, Less than 24 Consecutive Hours, Continuous Positive Airway Pressure (ICD-10-PCS; principal; 2018-11-18)
PROC: 4A023N7 Measurement of Cardiac Sampling and Pressure, Left Heart, Percutaneous Approach (ICD-10-PCS; 2018-11-21)
PROC: 4A12XM4 Monitoring of Cardiac Stress, External Approach (ICD-10-PCS; 2018-11-21)
PROC: B2111ZZ Fluoroscopy of Multiple Coronary Arteries using Low Osmolar Contrast (ICD-10-PCS; 2018-11-21)
PROC: B2151ZZ Fluoroscopy of Left Heart using Low Osmolar Contrast (ICD-10-PCS; 2018-11-21)
DX: I13.0 Hypertensive heart and chronic kidney disease with heart failure and stage 1 through stage 4 chronic kidney disease, or unspecified chronic kidney disease (principal); I50.23 Acute on chronic systolic (congestive) heart failure; J44.9 Chronic obstructive pulmonary disease, unspecified; I25.10 Atherosclerotic heart disease of native coronary artery without angina pectoris; E78.00 Pure hypercholesterolemia, unspecified; R00.0 Tachycardia, unspecified; I45.10 Unspecified right bundle-branch block; E66.9 Obesity, unspecified; I25.5 Ischemic cardiomyopathy; E11.649 Type 2 diabetes mellitus with hypoglycemia without coma; N18.3 Chronic kidney disease, stage 3 (moderate); E11.22 Type 2 diabetes mellitus with diabetic chronic kidney disease; E11.319 Type 2 diabetes mellitus with unspecified diabetic retinopathy without macular edema; E11.51 Type 2 diabetes mellitus with diabetic peripheral angiopathy without gangrene; M15.9 Polyosteoarthritis, unspecified; E11.40 Type 2 diabetes mellitus with diabetic neuropathy, unspecified; R74.8 Abnormal levels of other serum enzymes; E78.5 Hyperlipidemia, unspecified; K21.9 Gastro-esophageal reflux disease without esophagitis; Z86.73 Personal history of transient ischemic attack (TIA), and cerebral infarction without residual deficits; Z90.710 Acquired absence of both cervix and uterus; Z88.1 Allergy status to other antibiotic agents; Z88.8 Allergy status to other drugs, medicaments and biological substances; Z95.2 Presence of prosthetic heart valve; Z98.61 Coronary angioplasty status; Z90.49 Acquired absence of other specified parts of digestive tract; Z82.49 Family history of ischemic heart disease and other diseases of the circulatory system; Z95.5 Presence of coronary angioplasty implant and graft; Z95.1 Presence of aortocoronary bypass graft; Z87.891 Personal history of nicotine dependence; Z83.3 Family history of diabetes mellitus; Z79.4 Long term (current) use of insulin; Z79.82 Long term (current) use of aspirin; Z98.49 Cataract extraction status, unspecified eye; Z79.02 Long term (current) use of antithrombotics/antiplatelets; Z68.32 Body mass index [BMI] 32.0-32.9, adult
CPT/HCPCS: 36415; 71045; 78452; 80048; 80053; 82803; 82947; 83036; 83880; 84484; 85025; 87040; 93005; 93306; 93459; 99156; 99157; 99284; A9270-GY; A9502; C1887; C8929; J0280; J0456; J0696; J1644; J1940; J2250; J2785; J3010

== ENCOUNTER 2018-12-05 00:55 | Inpatient (IN) | payer MEDICARE ==
[2018-12-05] MEDS ORDERED: Furosemide IV* 10 MG/ML VIAL (40 MG) IV ONE (01:36)
[2018-12-05] MEDS ORDERED: Nitro 2% OINT* (Nitroglycerin) 1 INCH/PAK PAK TOPICAL ONE (01:37)
--- NOTE | 2018-12-05 01:41 | ED ---
Shortness of Breath - HPI Summary HPI Summary: This patient is a 53 year old F brought in by ambulance to [facility] accompanied by her with a chief complaint of SOB since this morning. The patient rates the pain 0/10 in severity. Symptoms aggravated by nothing. Symptoms alleviated by nothing. Patient reports burning pleuritic CP, increased frequency in urination, and non-productive cough. Pt has hx cardiomyopathy and CHF. - History of Current Complaint Chief Complaint: EDShortnessOfBreath Time Seen by Provider: 12/05/18 01:24 Hx Obtained From: Patient Onset/Duration: Gradual Onset, Lasting Hours, Still Present Timing: Constant Current Severity: Mild Dyspnea At: Rest Aggrevating Factors: Nothing Alleviating Factors: Nothing Associated Signs & Symptoms: Cough (Nonproductive), Chest Pain Unrelated to Cough - Allergy/Home Medications Allergies/Adverse Reactions: Allergies Allergy/AdvReac Type Severity Reaction Status Date / Time levofloxacin [From Levaquin] Allergy Nausea And Verified 10/25/18 01:20 Vomiting ondansetron Allergy Hives Verified 10/25/18 01:20 [From Zofran (as hydrochloride)] Home Medications: Home Medications Losartan Potassium 1 tab PO DAILY 12/05/18 [History Confirmed 12/05/18] PMH/Surg Hx/FS Hx/Imm Hx Endocrine/Hematology History: Reports: Hx Anticoagulant Therapy, Hx Diabetes, Hx Anemia Cardiovascular History: Reports: Hx Angina, Hx Angioplasty, Hx Congestive Heart Failure, Hx Coronary Artery Disease, Hx Hypercholesterolemia, Hx Hypertension, Hx Myocardial Infarction, Hx Peripheral Vascular Disease, Hx Valvular Heart Disease - mitral valve replacement, Other Cardiovascular Problems/Disorders - cardiomyopathy EF 40%, bipass, PVD Denies: Hx Pacemaker/ICD Respiratory History: Reports: Hx Chronic Obstructive Pulmonary Disease (COPD) GI History: Reports: Hx Gastroesophageal Reflux Disease Musculoskeletal History: Reports: Hx Arthritis - general Sensory History: Reports: Hx Contacts or Glasses Denies: Hx Hearing Aid Opthamlomology History: Reports: Hx Contacts or Glasses Neurological History: Reports: Hx Transient Ischemic Attacks (TIA) - 2014 Denies: Hx Headaches Psychiatric History: Denies: Hx Anxiety, Hx Depression, Hx Panic Disorder - Surgical History Surgery Procedure, Year, and Place: Complete Hysterectomy 2004; [facility]; HEART CATH- 4 CARDIAC STENTS, CABG, [facility] Infectious Disease History: No Infectious Disease History: Denies: Traveled Outside the [place] in Last 30 Days - Family History Known Family History: Positive: Cardiac Disease - Social History Alcohol Use: None Hx Substance Use: No Substance Use Type: Reports: None Hx Tobacco Use: Yes Smoking Status (MU): Former Smoker Type: Cigarettes Length of Time of Smoking/Using Tobacco: since she was 11 until 1 year ago Have You Smoked in the Last Year: No Review of Systems Negative: Fever Positive: Chest Pain - pleuritic chest pain Positive: Shortness Of Breath, Cough Negative: Vomiting All Other Systems Reviewed And Are Negative: Yes Physical Exam - Summary Physical Exam Summary: VITAL SIGNS: Reviewed. GENERAL: Patient is a well-developed and nourished FEMALE who is lying comfortable in the stretcher. Patient is not in any acute respiratory distress. HEAD AND FACE: No signs of trauma. No ecchymosis, hematomas or skull depressions. No sinus tenderness. EYES: PERRLA, EOMI x 2, No injected conjunctiva, no nystagmus. EARS: Hearing grossly intact. Ear canals and tympanic membranes are within normal limits. MOUTH: Oropharynx within normal limits. NECK: Supple, trachea is midline, no adenopathy, bilateral JVD, no carotid bruit , no c-spine tenderness, neck with full ROM. CHEST: Symmetric, no tenderness at palpation LUNGS: Rales. No wheezing or crackles. CVS: Regular rate and rhythm, S1 and S2 present, no murmurs or gallops appreciated. ABDOMEN: Soft, non-tender. No signs of distention. No rebound no guarding, and no masses palpated. Bowel sounds are normal. EXTREMITIES: FROM in all major joints, no edema, no cyanosis or clubbing. NEURO: Alert and oriented x 3. No acute neurological deficits. Speech is normal and follows commands. SKIN: Dry and warm Triage Information Reviewed: Yes Vital Signs On Initial Exam: Initial Vitals Temp Pulse Resp BP Pulse Ox 96.4 F 120 36 184/127 95 12/05/18 00:59 12/05/18 00:59 12/05/18 00:59 12/05/18 00:59 12/05/18 00:59 Vital Signs Reviewed: Yes Diagnostics - Vital Signs Vital Signs Temp Pulse Resp BP Pulse Ox 12/05/18 01:26 97.8 F 12/05/18 01:11 117 31 184/112 90 12/05/18 01:06 114 93 12/05/18 00:59 96.4 F 120 36 184/127 95 - Laboratory Result Diagrams: 12/05/18 01:45 12/05/18 01:45 Lab Statement: Any lab studies that have been ordered have been reviewed, and results considered in the medical decision making process. - Radiology CXR Radiology Interpretation Completed By: ED Physician - Dr. Mccray, pending official report Summary of Radiographic Findings: bilateral interstitial infiltrates consistent with pulmonary edema. - EKG 01:16 Cardiac Rate: Tachycardia - at 113 bpm EKG Rhythm: Sinus Tachycardia Summary of EKG Findings: sinus tachycardia at 113 bpm with RBBB and Q waves in inferior leads. Course/Dx - Course Course Of Treatment: This patient is a 53 year old F with hx cardiomyopathy and CHF [facility] [place] by her with a chief complaint of SOB since this morning. Patient reports burning pleuritic CP, increased frequency in urination, and non-productive cough. An EKG reveals sinus tachycardia at 113 bpm with RBBB and Q waves in inferior leads. CXR reveals, per ED physician, bilateral interstitial infiltrates consistent with pulmonary edema. Test results with no significant abnormalities. In the ED course the patient was given NTG and Lasix. We discussed patient care with Dr. Neal, hospitalist, and they agreed to admit the patient. Dx CHF. The patient will be admitted to [facility] [place]. The patient is agreeable with this plan. - Diagnoses Provider Diagnoses: CHF (congestive heart failure) - Physician Notifications Discussed Care of Patient With: Danya Neal Time Discussed With Above Provider: 02:15 Instructed by Provider To: Admit As Inpatient Discharge - Sign-Out/Discharge Documenting (check all that apply): Patient Departure - admit to [facility] [place] Patient Received Moderate/Deep Sedation with Procedure: No - Discharge Plan Condition: Stable Disposition: ADMITTED TO [facility] Referrals: Jamaal Garcia DO [Primary Care Provider] - - Attestation Statements Document Initiated by Scribe: Yes Documenting Scribe: Tiny Rhodes Provider For Whom Scribe is Documenting (Include Credential): Anna Mccray MD Scribe Attestation: Tiny Overton, lindaibed for Anna Mccray MD on 12/05/18 at 0225. Status of Scribe Document: Ready
[2018-12-05 02:04] LABS: INR 0.87 (0.77-1.02)
[2018-12-05 02:11] LABS: ABS Basophils 0.1 10^3/ul (0-0.2); ABS Eosinophils 0.2 10^3/ul (0-0.6); ABS Lymphocytes 0.9 10^3/ul (1.0-4.8); ABS Monocytes 0.4 10^3/ul (0-0.8); ABS Neutrophils 10.6 10^3/ul (1.5-7.7); ABS Nucleated RBC 0 10^3/ul; Eosinophil % 1.6 %; Hematocrit 36 % (35-47); Hemoglobin 11.2 g/dl (12.0-16.0); Lymphocyte % 7.6 %; Mean Corpuscular HGB Conc 31 g/dl (31-36); Mean Corpuscular Hemoglobin 29 pg (27-31); Mean Corpuscular Volume 92 fL (80-97); Mean Platelet Volume 7.9 fL (7.4-10.4); Nucleated Red Blood Cells % 0; Platelet Count 344 10^3/ul (150-450); Red Blood Count 3.89 10^6/ul (4.00-5.40); Red Cell Distribution Width 18 % (10.5-15); White Blood Count 12.2 10^3/ul (3.5-10.8)
[2018-12-05 02:13] LABS: Albumin/Globulin Ratio 1.3 (1-3); BUN/Creatinine Ratio 31.1 (8-20); Calcium 9.3 mg/dL (8.6-10.3); EGFR African American 55.6 (>60); EGFR Non-African American 45.9 (>60); Potassium 4.4 mmol/L (3.5-5.0); Total Bilirubin 0.5 mg/dL (0.2-1.0)
[2018-12-05 02:15] LABS: Troponin I 0.02 ng/mL (<0.04)
[2018-12-05] MEDS ORDERED: Gabapentin CAP(*) 300 MG PO PRN (02:30)
[2018-12-05] MEDS ORDERED: Calcium Carbonate CHEW TAB* 500 MG (TUMS) PO PRN (02:30)
[2018-12-05] MEDS ORDERED: Docusate CAP* 100 MG PO PRN (02:30)
[2018-12-05] MEDS: Pantoprazole TAB * 40 MG TAB PO SCH (05:29)
[2018-12-05] MEDS: Enoxaparin(*) 40 MG/0.4 ML SYR SUBCUT SCH (05:30)
--- NOTE | 2018-12-05 05:56 | HP ---
CC: Dr. Jamaal Garcia HISTORY AND PHYSICAL: DATE OF ADMISSION: 12/05/18 PRIMARY CARE PROVIDER: Jamaal Garcia DO CHIEF COMPLAINT: Shortness of breath. HISTORY OF PRESENT ILLNESS: This is a 53-year-old female with past medical history of coronary artery disease, congestive heart failure, who was recently in the hospital with episode of congestive heart failure, who is here with shortness of breath. The patient reports that she is compliant with the fluid restriction as well as low-salt diet. She reports that at about 11 o'clock yesterday evening, she developed sudden onset of shortness of breath associated with some burning sensation in the chest region. She tried to control with breathing nicely; however, her symptoms continued, so she decided to come to the emergency room. There are no fevers, no chills, she does have chronic cough ; however, it is dry in nature. She also has lower extremity edema as well as orthopnea. The patient reports that her weight fluctuates 3 pounds every few days, but she does not know why because she continues to follow a low fluid restricted diet. The patient was in our hospital in October 2018 where she underwent cardiac catheterization, which found her proximal LAD and proximal left circumflex occlusion. She also has right coronary artery that was noted to be small and nondominant. The patient has ejection fraction of 40%. REVIEW OF SYSTEM: Full 14 point review of system was done, negative otherwise listed above. PAST MEDICAL HISTORY: 1. Coronary artery disease, status post several stents, a total of 4 as well as CABG. 2. Peripheral vascular disease with stenting in January 2018 in the right lower extremity. 3. GERD. 4. Hyperlipidemia. 5. Ischemic cardiomyopathy. 6. Diabetes with diabetic neuropathy. PAST SURGICAL HISTORY: Includes: 1. CABG. 2. Mitral valve replacement, pig valve. HOME MEDICATIONS: Include: 1. NPH 70/30 15 units subcu t.i.d. a.c. 2. Losartan 1 tablet daily. 3. Atorvastatin 80 mg at bedtime. 4. Aspirin 81 mg daily. 5. Tylenol 650 mg every 4 hours as needed. 6. Protonix 40 mg daily. 7. Linagliptin 5 mg daily. 8. Toujeo 50 units subcu daily. 9. Gabapentin 300 mg daily as needed. 10. Lasix 40 mg daily. 11. Docusate 100 mg b.i.d. as needed. 12. Plavix 75 mg daily. 13. Tums as needed. ALLERGIES: Include LEVOFLOXACIN and ONDANSETRON. SOCIAL HISTORY: The patient lives at home with her who is also her healthcare proxy. The patient has a smoking history, the patient reports that she quit smoking about 2 years ago; however, has 80-pack year smoking history. No alcohol use. FAMILY HISTORY: Mother: CABG. Father: Diabetes, heart disease. PHYSICAL EXAMINATION GENERAL: This is a well-developed, well-nourished, overweight female, sitting on an ER stretcher, in no acute distress. VITAL SIGNS: Blood pressure of 184/112, heart rate of 116, respiratory rate of 20, oxygenation of 94% on 3 L nasal cannula, temperature of 97.8 Fahrenheit. HEENT: Pupils are equal, round, reactive to light. Atraumatic, normocephalic. Tympanic membranes visualized, pearly lester, with no effusions or tenderness. There is no oropharyngeal erythema. LUNGS: There is tachypnea with crackles heard about third of the way up the lung herrera. HEART: Regular rate, rhythm, no chest wall tenderness, regular tachycardia, 2/ 6 systolic murmur best heard at the apex. ABDOMEN: Bowel sounds are normoactive in all 4 quadrants. Abdomen is soft, nontender, nondistended. EXTREMITIES: 2+ pitting edema in bilateral lower extremities. NEUROLOGICAL: Alert and oriented x3 with no focal neurological deficits. SKIN: There are no rashes or lesions. LABORATORY DATA/DIAGNOSTIC STUDIES: EKG shows sinus tachycardia at a heart rate of 113. Troponin of 0.02. Alkaline phosphatase of 131. BUN of 38, creatinine of 1.22, potassium of 4.4, sodium of 140. INR of 0.87. WBC of 12.2, hemoglobin of 11.2 , platelets of 344. Chest x-ray as reviewed by me shows pulmonary congestion. IMPRESSION AND PLAN: 1. Acute on chronic congestive heart failure, systolic: We will start the patient on IV diuresis, IV Lasix b.i.d. Monitor Is and Os. Continue the patient's home Plavix, statin, aspirin. Currently, the patient is in acute congestive heart failure, so we will withhold starting metoprolol and also we will at this time continue the patient's losartan. Recent CATH done, so will not get an ECHO. Check troponin 2, and 3. 2. Essential hypertension/accelerated hypertension: Continue losartan, IV diuresis. Once the CHF exacerbation gets more calm, we can start the patient on beta-blockers. 3. Coronary artery disease with CABG and stents: Continue atorvastatin, aspirin, losartan, Plavix. 4. Diabetes: Diabetes is complicated by neuropathy, continue gabapentin, linagliptin, glargine and NPH. 5. DVT prophylaxis with Lovenox subcu. 6. We will start the patient on heart healthy diet. 7. Activity as tolerated. 8. Supplemental oxygenation to keep oxygenation greater than 90%. [id number]/CPS #: [id number] MTDD
[2018-12-05] MEDS: Insulin ISOPH/REG 70/30 (*) 1 UNITS UNIT SUBCUT SCH ×4 (08:22→17:40)
[2018-12-05] MEDS: Losartan TAB* 25 MG PO SCH (08:24)
[2018-12-05] MEDS: Aspirin EC TAB* 81 MG TAB.EC PO SCH (08:25)
[2018-12-05] MEDS: Clopidogrel TAB* 75 MG PO SCH (08:25)
[2018-12-05] MEDS: Insulin GLARGINE(*) 1 UNITS UNIT SUBCUT SCH (08:33)
[2018-12-05] MEDS ORDERED: Furosemide TAB* 20 MG PO SCH (09:00)
[2018-12-05] MEDS ORDERED: Furosemide IV* 10 MG/ML VIAL (40 MG) IV SCH (09:00)
[2018-12-05] MEDS: PTO:Linagliptin (NF) 5 MG TAB PO SCH (11:32)
[2018-12-05] MEDS: Acetaminophen TAB* 325 MG PO PRN (15:16)
--- NOTE | 2018-12-05 16:32 | PN ---
Subjective Date of Service: 12/05/18 Interval History: Patient is feeling better today. Patient states her SOB is slightly increased form baseline, but is dramatically improved from previously. Patient denies CP, SOB, N/V, abdominal pain, dysuria, presyncope, or other pain. Patient is not able to remember her meals recently, but states that on the morning of the day when she presented to the ED she had a bowl of canned tomato soup and a grilled cheese sandwich for breakfast. Patient states she tries to stay under 2g of sodium daily, but states she does not usually read nutrition labels. Family History: Unchanged from Admission Social History: Unchanged from Admission Past Medical History: Unchanged from Admission Objective Active Medications: Acetaminophen (Tylenol Tab*) 650 mg PO Q6H PRN PRN Reason: FEVER/PAIN Last Admin: 12/05/18 15:16 Dose: 650 mg Aspirin (Aspirin Ec Tab*) 81 mg PO DAILY [facility] Last Admin: 12/05/18 08:25 Dose: 81 mg Atorvastatin Calcium (Lipitor*) 80 mg PO QPM [facility] Calcium Carbonate (Tums*) 500 mg PO Q4H PRN PRN Reason: INDIGESTION Clopidogrel Bisulfate (Plavix Tab*) 75 mg PO DAILY [facility] Last Admin: 12/05/18 08:25 Dose: 75 mg Docusate Sodium (Colace Cap*) 100 mg PO BID PRN PRN Reason: CONSTIPATION Enoxaparin Sodium (Lovenox(*)) 40 mg SUBCUT Q24H [facility] Last Admin: 12/05/18 05:30 Dose: 40 mg Furosemide (Lasix Iv*) 40 mg IV DAILY [facility] Gabapentin (Neurontin Cap(*)) 300 mg PO DAILY PRN PRN Reason: PAIN Insulin Glargine (Lantus(*)) 40 units SUBCUT DAILY [facility] Last Admin: 12/05/18 08:33 Dose: 40 units Insulin Human Isoph/Insulin Regular (Humulin 70/30 (*)) 15 units SUBCUT TID [facility] Last Admin: 12/05/18 11:37 Dose: 15 units Linagliptin (Tradjenta (Nf)) 5 mg PO DAILY [facility] Last Admin: 12/05/18 11:32 Dose: Not Given Losartan Potassium (Cozaar Tab*) 25 mg PO DAILY [facility] Last Admin: 12/05/18 08:24 Dose: 25 mg Pantoprazole Sodium (Protonix Tab*) 40 mg PO DAILY@0600 [facility] Last Admin: 12/05/18 05:29 Dose: 40 mg Vital Signs - 8 hr 12/05/18 11:43 Temperature 97.6 F Pulse Rate 81 Respiratory 20 Rate Blood Pressure 100/48 (mmHg) O2 Sat by Pulse 100 Oximetry Oxygen Devices in Use Now: None Appearance: Patient is a 53yo female who appears stated age and is sitting in the bed in NAD. Eyes: No Scleral Icterus, PERRLA Ears/Nose/Mouth/Throat: NL Teeth, Lips, Gums, Clear Oropharnyx, Mucous Membranes Moist Neck: NL Appearance and Movements; NL JVP, Trachea Midline Respiratory: Symmetrical Chest Expansion and Respiratory Effort, Clear to Auscultation Cardiovascular: NL Sounds; No Murmurs; No JVD, RRR, - - 1+ B/L LE edema. Abdominal: NL Sounds; No Tenderness; No Distention, No Hepatosplenomegaly Lymphatic: No Cervical Adenopathy Extremities: No Edema, No Clubbing, Cyanosis Skin: No Rash or Ulcers, No Nodules or Sclerosis Neurological: Alert and Oriented x 3, NL Sensation, NL Muscle Strength and Tone , - - CN II-XII intact. Result Diagrams: 12/05/18 01:45 12/05/18 01:45 Assess/Plan/Problems-Billing Assessment: Patient is a 53yo female with a PMH for HFrEF, CAD, PVD, DM II, who is admitted with a heart failure exacerbation due to discrete dietary indiscretion who is improving on diuretics. - Patient Problems (1) CHF exacerbation Current Visit: No Status: Acute Code(s): I50.9 - HEART FAILURE, UNSPECIFIED SNOMED Code(s): 99819025 Comment: - Likely related to large salt meal on morning of admission - IV lasix, strict I/O, daily weight, only 3lbs over baseline per patinet - fluid and salt restriction - Will not recheck echo due to recent echo, stress test and Cath. - Mildly elevated trop without ischemic change, likely due to CHF exacerbation. (2) CAD (coronary artery disease) Current Visit: No Status: Acute Code(s): I25.10 - ATHSCL HEART DISEASE OF [place] CORONARY ARTERY W/O ANG PCTRS SNOMED Code(s): 70946191 Comment: - Mildly elevated troponin due to CHF exacerbation - continue asa, plavix, statin - Recent cath WNL (3) Hypoglycemia Current Visit: No Status: Acute Code(s): E16.2 - HYPOGLYCEMIA, UNSPECIFIED SNOMED Code(s): 056686026 Comment: - On 40u Lantus daily and 15u 70/30 BID - Episode of hypoglycemia, states she has episodes of symptomatic hypoglycemia daily. - Likely affected by abnormal diet in hospital - Will attempt to obtain endocrinology consult due to frequent hypoglycemia. - A1c 7.2% in October. (4) DVT prophylaxis Current Visit: No Status: Acute Code(s): NEM4370 - SNOMED Code(s): 726600087 Comment: SQ heparin (5) Full code status Current Visit: No Status: Acute Code(s): Z78.9 - OTHER SPECIFIED HEALTH STATUS SNOMED Code(s): 334017882 Status and Disposition: Inpatient for CHF exacerbation.
[2018-12-05] MEDS ORDERED: Insulin ISOPH/REG 70/30 (*) 1 UNITS UNIT ONE (17:33)
[2018-12-05] MEDS: Atorvastatin* 80 MG TAB PO SCH (17:37)
[2018-12-05] MEDS ORDERED: Famotidine TAB* 20 MG PO ONE (18:40)
[2018-12-05] MEDS ORDERED: diPHENhydraMINE PO* 25 MG PO PRN (18:40)
[2018-12-06] MEDS: Pantoprazole TAB * 40 MG TAB PO SCH (05:47)
[2018-12-06] MEDS: Enoxaparin(*) 40 MG/0.4 ML SYR SUBCUT SCH (05:47)
[2018-12-06 06:01] LABS: ABS Basophils 0 10^3/ul (0-0.2); ABS Eosinophils 0.2 10^3/ul (0-0.6); ABS Lymphocytes 1.5 10^3/ul (1.0-4.8); ABS Monocytes 0.4 10^3/ul (0-0.8); ABS Nucleated RBC 0 10^3/ul; Eosinophil % 2.9 %; Hematocrit 31 % (35-47); Hemoglobin 9.8 g/dl (12.0-16.0); Lymphocyte % 23.9 %; Mean Corpuscular HGB Conc 32 g/dl (31-36); Mean Corpuscular Hemoglobin 29 pg (27-31); Mean Corpuscular Volume 91 fL (80-97); Mean Platelet Volume 7.7 fL (7.4-10.4); Nucleated Red Blood Cells % 0; Platelet Count 309 10^3/ul (150-450); Red Blood Count 3.34 10^6/ul (4.00-5.40); Red Cell Distribution Width 17 % (10.5-15); White Blood Count 6.1 10^3/ul (3.5-10.8)
[2018-12-06 06:13] LABS: Calcium 9.4 mg/dL (8.6-10.3); Magnesium 2.2 mg/dL (1.9-2.7); Potassium 3.9 mmol/L (3.5-5.0)
[2018-12-06 06:19] LABS: BUN/Creatinine Ratio 34.3 (8-20); EGFR African American 48.6 (>60); EGFR Non-African American 40.2 (>60)
[2018-12-06] MEDS ORDERED: Furosemide IV* 10 MG/ML VIAL (40 MG) IV SCH (09:00)
[2018-12-06] MEDS: Insulin ISOPH/REG 70/30 (*) 1 UNITS UNIT SUBCUT SCH ×2 (09:22→11:59)
[2018-12-06] MEDS: Losartan TAB* 25 MG PO SCH (09:23)
[2018-12-06] MEDS: Insulin GLARGINE(*) 1 UNITS UNIT SUBCUT SCH (09:23)
[2018-12-06] MEDS: Clopidogrel TAB* 75 MG PO SCH (09:23)
[2018-12-06] MEDS: Aspirin EC TAB* 81 MG TAB.EC PO SCH (09:23)
[2018-12-06] MEDS: PTO:Linagliptin (NF) 5 MG TAB PO SCH (09:24)
--- NOTE | 2018-12-06 16:19 | CONSULT ---
Consult Consult: [facility] Inpatient Consult Note Date of Consult: 12/06/18 Reason for Consult: type 2 diabetes Reason for Admission: CHF, CAD ASSESSMENT: 53 yo F with CAD, ischemic CHF and type 2 diabetes, now admitted for [id number] heart failure with reduced EF. Her recent A1c is misleadingly low and does not reflect hypoglycemia that has occurred with current 3-insulin (glargine, regular, NPH) regimen. She has achieved good glycemic control in the past several months with Toujeo + Humalog and should resume this at discharge. NPH insulin should not be given alone with meals or with another basal insulin. Her estimated insulin requirement is 90 units/day, of which approximately 50% should be given as basal insulin (glargine) and the remainder with meals divded TID. She is indicated for an insulin-sparing agent with proven benefit in patients with heart failure, specifically empagliflozin ( Jardiance). Linagliptin is safe, but ineffective in diabetic patients with heart failure. See recommendations below. PLAN: - increase insulin glargine to 45 units daily and continue at discharge - d/c NPH/regular 70/30 combination [done] - start Humalog 15 units TID-AC and SSI and continue at discharge - d/c linagliptin - start Jardiance 10mg daily at discharge - follow-up endocrinology in 2 weeks SUBJECTIVE: History of Present Illness: 53 yo F with above history, now re-admitted for shortness of breath at rest. Despite fluid restriction as well as low-salt diet, she developed sudden onset of shortness of breath on the evening before admission along with burning sensation in the chest region. She was unable to control dyspnea symptoms at home and presented to ED for evaluation. No recent illness, including SATNAM. She has chronic lower extremity edema as well as orthopnea at baseline, her weight is not substantially different in the past several days. In October 2018 where she underwent cardiac catheterization at this hospital, which found proximal LAD and proximal left circumflex occlusion and ejection fraction of 40%. She has long-standing type 2 diabetes and has used intensive insulin for several years. Her most recent A1c is <7.5% although it has been >11% in the past 2 years. She was using Lantus + Humalog in the past and has been reported to be using high-dose Toujeo + NPH with meals in the past 3 months. More recently, she was apparently started on Toujeo + 70/30 with meals at discharge. During this and recent admissions, she has experienced several episodes of hypoglycemia with the latter regimen. She also uses Tradjenta for diabetes. Past Medical History: 1. CAD s/p CABG and PTCA 2. PAD s/p RLE stent 3. GERD 4. Hyperlipidemia 5. Ischemic cardiomyopathy 6. 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 Medications Prior to Admission: Aspirin [Aspirin 81 MG TAB] 81 mg PO DAILY 05/24/17 [History Confirmed 12/05/18] Atorvastatin* [Lipitor 80 MG*] 80 mg PO QPM 05/24/17 [History Confirmed 12/05/18 ] Clopidogrel TAB* [Plavix TAB*] 75 mg PO DAILY 05/24/17 [History Confirmed ] Furosemide TAB* [Lasix TAB*] 40 mg PO DAILY 05/24/17 [History Confirmed 12/05/18 ] Gabapentin CAP(*) [Neurontin 300 CAP(*)] 300 mg PO DAILY PRN 05/24/17 [History Confirmed 12/05/18] Linagliptin (NF) [Tradjenta (NF)] 5 mg PO DAILY 05/24/17 [History Confirmed 09/12] Calcium Carbonate [Tums] 200 mg PO Q4H PRN 05/25/18 [History Confirmed 12/05/18] Acetaminophen TAB* [Tylenol TAB*] 650 mg PO Q4H PRN tab 05/26/18 [Rx Confirmed 12/05/18] Docusate CAP* [Colace Cap*] 100 mg PO BID PRN cap 05/26/18 [Rx Confirmed ] Pantoprazole TAB * [Protonix TAB*] 40 mg PO DAILY@0600 #30 tab 05/26/18 [Rx Confirmed 12/05/18] Insulin NPH Hum/Reg Insulin Hm [Novolin 70-30 Flexpen] 15 unit SQ TID AC [History Confirmed 12/05/18] Insulin Glargine,Hum.rec.anlog [Toujeo Max Solostar] 50 unit SQ DAILY #0 [Rx Confirmed 12/05/18] Losartan Potassium 1 tab PO DAILY 12/05/18 [History Confirmed 12/05/18] Inpatient Medications: Acetaminophen (Tylenol Tab*) 650 mg PO Q6H PRN PRN Reason: FEVER/PAIN Last Admin: 12/05/18 15:16 Dose: 650 mg Aspirin (Aspirin Ec Tab*) 81 mg PO DAILY [facility] Last Admin: 12/06/18 09:23 Dose: 81 mg Atorvastatin Calcium (Lipitor*) 80 mg PO QPM [facility] Last Admin: 12/05/18 17:37 Dose: 80 mg Calcium Carbonate (Tums*) 500 mg PO Q4H PRN PRN Reason: INDIGESTION Clopidogrel Bisulfate (Plavix Tab*) 75 mg PO DAILY [facility] Last Admin: 12/06/18 09:23 Dose: 75 mg Diphenhydramine HCl (Benadryl Po*) 25 mg PO Q6H PRN PRN Reason: ITCHING Last Admin: 12/05/18 18:55 Dose: 25 mg Docusate Sodium (Colace Cap*) 100 mg PO BID PRN PRN Reason: CONSTIPATION Enoxaparin Sodium (Lovenox(*)) 40 mg SUBCUT Q24H [facility] Last Admin: 12/06/18 05:47 Dose: 40 mg Furosemide (Lasix Iv*) 40 mg IV DAILY [facility] Last Admin: 12/06/18 09:23 Dose: 40 mg Gabapentin (Neurontin Cap(*)) 300 mg PO DAILY PRN PRN Reason: PAIN Insulin Glargine (Lantus(*)) 40 units SUBCUT DAILY [facility] Last Admin: 12/06/18 09:23 Dose: 40 units Insulin 70/30 -- DISCONTINUED 12/06/18 Linagliptin (Tradjenta (Nf)) 5 mg PO DAILY [facility] Last Admin: 12/06/18 09:24 Dose: 5 mg Losartan Potassium (Cozaar Tab*) 25 mg PO DAILY [facility] Last Admin: 12/06/18 09:23 Dose: 25 mg Pantoprazole Sodium (Protonix Tab*) 40 mg PO DAILY@0600 [facility] Last Admin: 12/06/18 05:47 Dose: 40 mg Allergies/Intolerances: FQs, Zofran Social History: Lives with . 80 pack year tobacco history, quit 2016. Family History: CAD, DM Review of Systems: As above. OBJECTIVE: Vital Signs: Temp Pulse Resp BP Pulse Ox 97.0 F 82 16 129/75 100 12/06/18 11:21 12/06/18 11:21 12/06/18 11:21 12/06/18 11:21 12/06/18 11:21 General: alert, pleasant, oriented, no distress ENT: neck supple, no thyromegaly, no bruit is heard Chest: CTAB, no wheezing or crackles CV: RRR, no murmur Abdomen: soft, non-tender Extremities: no edema, distal pulses intact Skin: warm, dry, no rash Neuro: grossly intact motor/sensory in extremities Psych: restricted affect, pleasant Labs: WBC 6.1 10^3/ul (3.5-10.8) 12/06/18 05:36 RBC 3.34 10^6/ul (4.00-5.40) L 12/06/18 05:36 Hgb 9.8 g/dl (12.0-16.0) L 12/06/18 05:36 Hct 31 % (35-47) L 12/06/18 05:36 MCV 91 fL (80-97) 12/06/18 05:36 MCH 29 pg (27-31) 12/06/18 05:36 MCHC 32 g/dl (31-36) 12/06/18 05:36 RDW 17 % (10.5-15) H 12/06/18 05:36 Plt Count 309 10^3/ul (150-450) 12/06/18 05:36 MPV 7.7 fL (7.4-10.4) 12/06/18 05:36 Neut % (Auto) 65.8 % 12/06/18 05:36 Lymph % (Auto) 23.9 % 12/06/18 05:36 [place] % (Auto) 6.7 % 12/06/18 05:36 Eos % (Auto) 2.9 % 12/06/18 05:36 Baso % (Auto) 0.7 % 12/06/18 05:36 Absolute Neuts (auto) 4.0 10^3/ul (1.5-7.7) 12/06/18 05:36 Absolute Lymphs (auto) 1.5 10^3/ul (1.0-4.8) 12/06/18 05:36 Absolute Monos (auto) 0.4 10^3/ul (0-0.8) 12/06/18 05:36 Absolute Eos (auto) 0.2 10^3/ul (0-0.6) 12/06/18 05:36 Absolute Basos (auto) 0 10^3/ul (0-0.2) 12/06/18 05:36 Absolute Nucleated RBC 0 10^3/ul 12/06/18 05:36 Nucleated RBC % 0 12/06/18 05:36 INR (Anticoag Therapy) 0.87 (0.77-1.02) 12/05/18 01:45 APTT 20.0 seconds (26.0-36.3) L 12/05/18 01:45 Sodium 140 mmol/L (135-145) 12/06/18 05:36 Potassium 3.9 mmol/L (3.5-5.0) 12/06/18 05:36 Chloride 106 mmol/L (101-111) 12/06/18 05:36 Carbon Dioxide 26 mmol/L (22-32) 12/06/18 05:36 Anion Gap 8 mmol/L (2-11) 12/06/18 05:36 BUN 47 mg/dL (6-24) H 12/06/18 05:36 Creatinine 1.37 mg/dL (0.51-0.95) H 12/06/18 05:36 Est GFR ( Amer) 48.6 (>60) 12/06/18 05:36 Est GFR (Non-Af Amer) 40.2 (>60) 12/06/18 05:36 BUN/Creatinine Ratio 34.3 (8-20) H 12/06/18 05:36 Glucose 80 mg/dL (70-100) 12/06/18 05:36 POC Glucose (mg/dL) 133 mg/dL (70-100) H 12/06/18 11:39 Calcium 9.4 mg/dL (8.6-10.3) 12/06/18 05:36 Magnesium 2.2 mg/dL (1.9-2.7) 12/06/18 05:36 Total Bilirubin 0.50 mg/dL (0.2-1.0) 12/05/18 01:45 AST 18 U/L (13-39) 12/05/18 01:45 ALT 14 U/L (7-52) 12/05/18 01:45 Alkaline Phosphatase 131 U/L (34-104) H 12/05/18 01:45 Troponin I 0.05 ng/mL (<0.04) H* 12/05/18 12:56 Total Protein 7.0 g/dL (6.4-8.9) 12/05/18 01:45 Albumin 4.0 g/dL (3.2-5.2) 12/05/18 01:45 Globulin 3.0 g/dL (2-4) 12/05/18 01:45 Albumin/Globulin Ratio 1.3 (1-3) 12/05/18 01:45
[2018-12-06] MEDS: Acetaminophen TAB* 325 MG PO PRN (16:41)
[2018-12-06] MEDS: Atorvastatin* 80 MG TAB PO SCH (16:42)
[2018-12-06] MEDS ORDERED: Dextrose 50% Syringe 50 ML* 25 GM/50 ML SYRINGE IV PUSH PRN (17:33)
--- NOTE | 2018-12-06 17:44 | PN ---
Subjective Date of Service: 12/06/18 Interval History: Sitting on edge of bed during assessment. Reports improvement in shortness of breath as she is closer to her baseline. Denies cp, palpitations, nausea, vomiting, diarrhea, urinary symptoms, fever, chills. Reports concern for hypoglycemic episodes as she was having them at home prior to admission. Reports she wanted to try to adhere to her pcp's insulin regime therefore she would have to eat "all the time" to keep blood sugar wnl. Reports she would often still have hypoglycemia episodes sometimes into the 60s Family History: Unchanged from Admission Social History: Unchanged from Admission Past Medical History: Unchanged from Admission Objective Active Medications: Acetaminophen (Tylenol Tab*) 650 mg PO Q6H PRN PRN Reason: FEVER/PAIN Last Admin: 12/06/18 16:41 Dose: 650 mg Aspirin (Aspirin Ec Tab*) 81 mg PO DAILY [facility] Last Admin: 12/06/18 09:23 Dose: 81 mg Atorvastatin Calcium (Lipitor*) 80 mg PO QPM [facility] Last Admin: 12/06/18 16:42 Dose: 80 mg Calcium Carbonate (Tums*) 500 mg PO Q4H PRN PRN Reason: INDIGESTION Clopidogrel Bisulfate (Plavix Tab*) 75 mg PO DAILY [facility] Last Admin: 12/06/18 09:23 Dose: 75 mg Dextrose (D50w Syringe 50 Ml*) 12.5 gm IV PUSH .FOR FS < 60 - SS PRN PRN Reason: FS < 60 Diphenhydramine HCl (Benadryl Po*) 25 mg PO Q6H PRN PRN Reason: ITCHING Last Admin: 12/05/18 18:55 Dose: 25 mg Docusate Sodium (Colace Cap*) 100 mg PO BID PRN PRN Reason: CONSTIPATION Enoxaparin Sodium (Lovenox(*)) 40 mg SUBCUT Q24H [facility] Last Admin: 12/06/18 05:47 Dose: 40 mg Furosemide (Lasix Iv*) 40 mg IV DAILY [facility] Last Admin: 12/06/18 09:23 Dose: 40 mg Gabapentin (Neurontin Cap(*)) 300 mg PO DAILY PRN PRN Reason: PAIN Insulin Glargine (Lantus(*)) 40 units SUBCUT DAILY [facility] Last Admin: 12/06/18 09:23 Dose: 40 units Insulin Human Lispro (Humalog*) 0 units SUBCUT AC [facility]; Protocol Losartan Potassium (Cozaar Tab*) 25 mg PO DAILY [facility] Last Admin: 12/06/18 09:23 Dose: 25 mg Pantoprazole Sodium (Protonix Tab*) 40 mg PO DAILY@0600 [facility] Last Admin: 12/06/18 05:47 Dose: 40 mg Vital Signs - 8 hr 12/06/18 11:21 Temperature 97.0 F Pulse Rate 82 Respiratory 16 Rate Blood Pressure 129/75 (mmHg) O2 Sat by Pulse 100 Oximetry Oxygen Devices in Use Now: Nasal Cannula Appearance: Comfortable, NAD Eyes: No Scleral Icterus Ears/Nose/Mouth/Throat: Clear Oropharnyx, Mucous Membranes Moist Neck: NL Appearance and Movements; NL JVP Respiratory: Symmetrical Chest Expansion and Respiratory Effort, Clear to Auscultation Cardiovascular: NL Sounds; No Murmurs; No JVD, RRR, No Edema Abdominal: NL Sounds; No Tenderness; No Distention Lymphatic: No Cervical Adenopathy Extremities: No Clubbing, Cyanosis Skin: No Rash or Ulcers Neurological: Alert and Oriented x 3 Nutrition: Taking PO's Result Diagrams: 12/06/18 05:36 12/06/18 05:36 Additional Lab and Data: Laboratory Results - last 24 hr 12/06/18 12/06/18 12/06/18 05:36 05:36 07:08 WBC 6.1 RBC 3.34 L Hgb 9.8 L Hct 31 L MCV 91 MCH 29 MCHC 32 RDW 17 H Plt Count 309 MPV 7.7 Neut % (Auto) 65.8 Lymph % (Auto) 23.9 [place] % (Auto) 6.7 Eos % (Auto) 2.9 Baso % (Auto) 0.7 Absolute Neuts (auto) 4.0 Absolute Lymphs (auto) 1.5 Absolute Monos (auto) 0.4 Absolute Eos (auto) 0.2 Absolute Basos (auto) 0 Absolute Nucleated RBC 0 Nucleated RBC % 0 Sodium 140 Potassium 3.9 Chloride 106 Carbon Dioxide 26 Anion Gap 8 BUN 47 H Creatinine 1.37 H Est GFR ( Amer) 48.6 Est GFR (Non-Af Amer) 40.2 BUN/Creatinine Ratio 34.3 H Glucose 80 POC Glucose (mg/dL) 88 Calcium 9.4 Magnesium 2.2 12/06/18 12/06/18 11:39 16:33 WBC RBC Hgb Hct MCV MCH MCHC RDW Plt Count MPV Neut % (Auto) Lymph % (Auto) [place] % (Auto) Eos % (Auto) Baso % (Auto) Absolute Neuts (auto) Absolute Lymphs (auto) Absolute Monos (auto) Absolute Eos (auto) Absolute Basos (auto) Absolute Nucleated RBC Nucleated RBC % Sodium Potassium Chloride Carbon Dioxide Anion Gap BUN Creatinine Est GFR ( Amer) Est GFR (Non-Af Amer) BUN/Creatinine Ratio Glucose POC Glucose (mg/dL) 133 H 108 H Calcium Magnesium Assess/Plan/Problems-Billing Assessment: Patient is a 53yo female with a PMH for HFrEF, CAD, PVD, DM II, who is admitted with a heart failure exacerbation due to discrete dietary indiscretion who is improving on diuretics. - Patient Problems (1) CHF exacerbation Comment: - Likely related to large salt meal on morning of admission - Transition to home dose PO Lasix from IV lasix starting tomorrow - Cont strict I/O, daily weight, - Fluid and salt restriction - Will not recheck echo due to recent echo, stress test and Cath. - Mildly elevated trop without ischemic change, likely due to CHF exacerbation. - Per cardiology outpatient notes patient was once on Coreg 3.125 mg TID which was decreased to BID. I suspected it was stopped due to hypotension as it is documented that pcp stopped other bp meds due to hypotension previously. If patient can tolerate in the future it would be beneficial to restart Coreg. Patient should follow up with Dr Grimaldo as outpatient also (2) CAD (coronary artery disease) Comment: - Mildly elevated troponin due to CHF exacerbation - continue asa, plavix, statin - Recent cath WNL (3) Hypoglycemia Comment: - Dr Ramírez (Endocrinology) consulted and we very much appreciate his recommendations as follow: Cont 40 units lantus daily, d/c 70/30, start humalog sliding scale, d/c linagliptin, start jardiance 10 mg daily at discharge, follow up with endocrinology in 2 wks after discharge. (4) DVT prophylaxis Comment: - Cont Lovenox (5) Full code status Status and Disposition: Inpatient for CHF exacerbation. Attending: Glen Hansen
[2018-12-06] MEDS ORDERED: Potassium Chlor TAB* 20 MEQ TAB.ER PO ONE (17:57)
[2018-12-07] MEDS: Pantoprazole TAB * 40 MG TAB PO SCH (05:22)
[2018-12-07] MEDS: Enoxaparin(*) 40 MG/0.4 ML SYR SUBCUT SCH (05:23)
[2018-12-07 06:42] LABS: ABS Basophils 0 10^3/ul (0-0.2); ABS Eosinophils 0.2 10^3/ul (0-0.6); ABS Lymphocytes 1.4 10^3/ul (1.0-4.8); ABS Monocytes 0.5 10^3/ul (0-0.8); ABS Nucleated RBC 0 10^3/ul; Eosinophil % 3.4 %; Hematocrit 28 % (35-47); Hemoglobin 9.6 g/dl (12.0-16.0); Lymphocyte % 22.5 %; Mean Corpuscular HGB Conc 34 g/dl (31-36); Mean Corpuscular Hemoglobin 30 pg (27-31); Mean Corpuscular Volume 88 fL (80-97); Mean Platelet Volume 7.4 fL (7.4-10.4); Nucleated Red Blood Cells % 0; Platelet Count 306 10^3/ul (150-450); Red Blood Count 3.23 10^6/ul (4.00-5.40); Red Cell Distribution Width 17 % (10.5-15); White Blood Count 6.2 10^3/ul (3.5-10.8)
[2018-12-07 07:19] LABS: BUN/Creatinine Ratio 33.8 (8-20); Calcium 9.3 mg/dL (8.6-10.3); EGFR African American 50.3 (>60); EGFR Non-African American 41.6 (>60); Potassium 4.1 mmol/L (3.5-5.0)
[2018-12-07] MEDS: Insulin LISPRO* 1 UNITS UNIT SUBCUT SCH ×2 (08:49→12:53)
[2018-12-07] MEDS: Losartan TAB* 25 MG PO SCH (08:59)
[2018-12-07] MEDS ORDERED: Furosemide TAB* 40 MG PO SCH (09:00)
[2018-12-07] MEDS: Clopidogrel TAB* 75 MG PO SCH (09:02)
[2018-12-07] MEDS: Aspirin EC TAB* 81 MG TAB.EC PO SCH (09:02)
[2018-12-07] MEDS: Insulin GLARGINE(*) 1 UNITS UNIT SUBCUT SCH (09:44)
[2018-12-07] MEDS ORDERED: Insulin GLARGINE(*) 1 UNITS UNIT SUBCUT SCH (10:00)
[2018-12-07] MEDS ORDERED: Al Hydrox/Mg Hydrox/Simet LIQ* 30 ML UDC PO ONE (11:53)
[2018-12-07 12:32] LABS: Urine Appearance Turbid; Urine Bacteria 1+ (Absent); Urine Bilirubin Negative (Negative); Urine Blood 1+ (Negative); Urine Color Yellow; Urine Glucose Negative (Negative); Urine Ketones Negative (Negative); Urine Nitrite Negative (Negative); Urine Protein Negative (Negative); Urine Red Blood Cell 3+(>10/hpf) (Absent); Urine Specific Gravity 1.006 (1.010-1.030); Urine Squamous Epithelial Cell Present (Absent); Urine Urobilinogen Negative (Negative); Urine White Blood Cell 3+(>20/hpf) (Absent)
[2018-12-07 17:12] VITALS: BP 120/74
--- NOTE | 2018-12-08 02:18 | DS ---
CC: Dr. Garcia; Dr. Grimaldo; Dr. Hector Ramírez * DISCHARGE SUMMARY: DATE OF ADMISSION: 12/05/18 DATE OF DISCHARGE: 12/07/18 PRIMARY CARE PROVIDER: Dr. Garcia. PRIMARY BOOK PACKER: Dr. Grimaldo. CONSULTING PHYSICIAN: Dr. Hector Ramírez. ATTENDING PROVIDER: Dr. Hansen * (DICTATED BY ELADIA PENA, FRITZ) PRIMARY DIAGNOSES: 1. Shortness of breath. 2. Acute on chronic congestive heart failure. SECONDARY DIAGNOSES: 1. Hypertension. 2. Coronary artery disease, status post coronary artery bypass grafting with stent. 3. Diabetes. STUDIES WHILE IN THE HOSPITAL: 1. EKG: Impression: Sinus tachycardia. Right bundle-branch block. Inferior infarct, old. 2. Repeat EKG, 12/07/18: Impression: Sinus rhythm. Right bundle-branch block. Inferior infarct, old. 3. Chest x-ray: Impression: The combination of findings, pulmonary valvular congestion, interstitial edema, similar to prior exam. DISCHARGE MEDICATIONS: Continued home medications: 1. Losartan 1 tab p.o. daily. 2. Atorvastatin 80 mg at bedtime. 3. Aspirin 81 mg p.o. daily. 4. Tylenol 650 mg every 4 hours as needed. 5. Protonix 40 mg p.o. daily. 6. Gabapentin 300 mg daily as needed. 7. Lasix 40 mg daily. 8. Colace 100 mg b.i.d. 9. Plavix 75 mg daily. 10. Tums as needed. Changed home medications: 1. Toujeo was decreased from 50 units subcu daily to 30 units subcu daily. 2. Insulin Humalog was decreased from 15 units subcu t.i.d. a.c. to 10 units subcu t.i.d. a.c. Discontinued home medication: 1. Linagliptin 5 mg daily. New home medication: 1. Jardiance 10 mg p.o. daily. HISTORY OF PRESENT ILLNESS/HOSPITAL COURSE: Ms. Chavez is a 53-year-old female with a past medical history significant for coronary artery disease, who was recently hospitalized with an episode of congestive heart failure, who presented to the emergency room on 12/05/18 with shortness of breath. Please see Dr. Danya Neal's history and physical for details leading up to the patient's presentation to the ED. In short, the patient reports that she had shortness of breath with sensation of burning in her chest. In addition, the patient reports a 3-pound fluctuation in weight. While in the emergency department, chest x-ray revealed pulmonary congestion. Therefore, the patient was admitted for congestive heart failure exacerbation, acute on chronic. She was given IV diuresis in the form of Lasix 40 mg b.i.d. While hospitalized, we did not repeat an echocardiogram as the patient had a recent cath in October 2018. In addition, the patient had repeat troponins which were stable. Initial was 0.02. Subsequent x2 were 0.05. We suspect this will increase due to congestive heart failure exacerbation. The patient diuresed well. As noted , the patient had a decrease in weight in addition to sufficient urinary output. Also, the patient initially required supplemental O2, but after diuresis, she no longer required to this. In addition, the patient's shortness of breath resolved with diuresis. We suspect this exacerbation was due to her recent meal of canned peanut soup and salad. In addition, she also add that she had a pack of . The patient's hospitalization was complicated as she did experience some episodes of hypoglycemia. The patient reports that she does often have hypoglycemia at home. She reports that she often needs to eat a large amount of food for not to be hypoglycemic at home. Due to these concerns, the patient had a consultation with Dr. Hector Ramírez who evaluated her diabetes and diabetic regimen. It was revealed the patient had reported she was on 70/30 insulin, but in fact she was on Humalog. Therefore, the patient was transitioned to Humalog at a lower dose. In addition, the patient had received Lantus here in the hospital, but received Toujeo at home. Therefore, we have reduced the patient's home Toujeo dose. It was also recommended that the patient stop her gliptin and start Jardiance as this was more appropriate for someone with congestive heart failure. The patient is stable for discharge home today. Vital signs are as follows: Temp 97.6, HR 82, RR 16, O2 sat 100% on room air, BP 120/74. REVIEW OF SYSTEMS: Initially today, the patient reported some epigastric discomfort. The patient was tender to palpation in the epigastric region. The patient was given Maalox and expressed relief. To be thorough, the patient had a repeat EKG which was unchanged. The patient is chest pain free now. The patient denies chest pain, palpitations, shortness of breath, dizziness, headache, nausea, vomiting, diarrhea, weakness. A 14-point review of systems was completed and all others were negative. PHYSICAL EXAMINATION: General: Ms. Chavez is a 53-year-old female who was sitting in bed, in no acute distress, appears stated age. HEENT: PERRLA. EOMs intact. Oral mucosa is moist without lesions. Neck: Neck is supple. No lymphadenopathy. Cardiac: S1/S2 present. No murmurs, rubs or gallops. Regular rhythm. Respiratory: Lungs are clear to auscultation. No rhonchi, wheezes or rubs. Good aeration. Abdomen: Soft, nontender. Bowel sounds x4. Extremities: No edema, clubbing or cyanosis. Moves all extremities well. No pain or deformities. Skin: Skin is intact. Neuro: Neuro is grossly intact. No focal deficits. LABORATORY DATA: WBC 6.2, hemoglobin 9.6, hematocrit 28, platelets 306. Sodium 137, potassium 4.1, chloride 104, carbon dioxide 28. BUN 45, creatinine 1.33. DISCHARGE PLAN/FOLLOWUP: 1. CHF exacerbation: This has been followed during the admission with IV diuresis. The patient was started on home medication regimen as same. The patient no longer requiring oxygen. I have encouraged the patient to adhere to the low sodium diet recommended by her roasterman. I have encouraged the patient to follow up with her roasterman as recommended. We have discussed at length signs and symptoms of worsening condition and when to come back to the emergency room. 2. Hypertension: The patient is to resume her home medications as same. 3. CAD: The patient is to continue her atorvastatin, aspirin, losartan, Plavix. 3. Diabetes: As mentioned above, we had made adjustments to the patient's diabetic regimen due to hypoglycemia. She has to be on Tradjenta or Toujeo 30 units once daily, Humalog 10 units t.i.d. a.c., and Jardiance 10 mg p.o. daily. She is to follow up with Dr. Ramírez in 2 weeks. I have scheduled this appointment for her. 4. Urinalysis: Prior to her discharge, the patient mentioned her urine is dark colored and foul smelling. Therefore, urinalysis was obtained. Results as follows: Specific gravity 1.006, blood +1, leukocyte esterase +3, wbc 3+, rbc 3+, squamous cell present, bacteria +1. The patient denies any urinary symptoms including but not limited to burning with urination, pain, increase in frequency, incontinence. I suspect the patient's description of her urine is due to dehydration and she was on a fluid restriction while in the hospital. I have also reviewed previous urine results from previous admission and are similar to the patient's current urinalysis. Either way, I have encouraged the patient to call her primary care on Wednesday to report the results of micro and to determine whether or not she warrants antibiotic therapy. Antibiotic therapy was not initiated in the hospital due to no symptoms, no tachycardia, no fever, no white count. If the patient suspects developed symptoms, she has been encouraged to go to her primary care for appropriate treatment. 5. Elevated creatinine: The patient's creatinine is currently 1.33. This was consistent with the patient's recent results since 10/10/18. I have encouraged the patient to follow up with her primary care in 1 week. I would encourage primary care to repeat her creatinine and trend accordingly. 6. Education: I discussed at length with the patient signs and symptoms of worsening condition and when to return to the emergency department. The patient stated understanding. The patient states she felt safe for discharge. This plan was discussed with my attending, Dr. Hansen, who agrees with my plan. TIME SPENT: Approximately 35 minutes was spent on this discharge, greater than half of that time was spent [id number] with the patient discussing discharge plan and instructions. ELADIA PENA, FRITZ [id number]/[facility] #: [id number] [place]
== END 2018-12-07 17:54 | disposition hospice, home (50) | DRG 293 ==
LOC: ED 00:55 → MEDTELE 02:41
PROVIDERS: ADMIT Internal Medicine; ATTEND Internal Medicine
DX: I11.0 Hypertensive heart disease with heart failure (principal); I50.23 Acute on chronic systolic (congestive) heart failure; K21.9 Gastro-esophageal reflux disease without esophagitis; E11.51 Type 2 diabetes mellitus with diabetic peripheral angiopathy without gangrene; I25.5 Ischemic cardiomyopathy; M15.9 Polyosteoarthritis, unspecified; I25.10 Atherosclerotic heart disease of native coronary artery without angina pectoris; I45.10 Unspecified right bundle-branch block; E66.3 Overweight; R10.13 Epigastric pain; R00.0 Tachycardia, unspecified; E11.40 Type 2 diabetes mellitus with diabetic neuropathy, unspecified; E11.21 Type 2 diabetes mellitus with diabetic nephropathy; E78.5 Hyperlipidemia, unspecified; Z88.1 Allergy status to other antibiotic agents; Z88.8 Allergy status to other drugs, medicaments and biological substances; I25.2 Old myocardial infarction; Z95.2 Presence of prosthetic heart valve; Z95.1 Presence of aortocoronary bypass graft; Z95.5 Presence of coronary angioplasty implant and graft; Z79.82 Long term (current) use of aspirin; Z79.02 Long term (current) use of antithrombotics/antiplatelets; Z79.4 Long term (current) use of insulin; Z82.49 Family history of ischemic heart disease and other diseases of the circulatory system; Z83.3 Family history of diabetes mellitus; Z86.73 Personal history of transient ischemic attack (TIA), and cerebral infarction without residual deficits; Z90.710 Acquired absence of both cervix and uterus; Z90.49 Acquired absence of other specified parts of digestive tract; Z87.891 Personal history of nicotine dependence; Z68.33 Body mass index [BMI] 33.0-33.9, adult; E11.649 Type 2 diabetes mellitus with hypoglycemia without coma; E86.0 Dehydration
CPT/HCPCS: 36415; 71045; 80048; 80053; 81003; 81015; 83735; 84484; 85025; 85610; 85730; 87077; 87086; 87186; 93005; 99284; A9270-GY; J1650; J1815; J1940

== ENCOUNTER 2019-05-12 22:15 | Observation (INO) | payer MEDICARE ==
[2019-05-12] MEDS ORDERED: Nitro 2% OINT* (Nitroglycerin) 1 INCH/PAK PAK TOPICAL ONE (23:23)
[2019-05-12] MEDS ORDERED: Furosemide IV* 10 MG/ML VIAL (40 MG) IV SLOW PU ONE (23:23)
[2019-05-12] MEDS ORDERED: Albuterol/Ipratropium NEB.SOL* Albuterol 2.5 MG/Ipratropium 0.5 MG 3 ML INH ONE (23:23)
[2019-05-12] MEDS ORDERED: methylPREDNISolone 125 MG* 2 ML VIAL IV ONE (23:24)
[2019-05-12] MEDS ORDERED: Magnesium Sulfate 2 GM IV* 2 GM/50 ML BAG IVPB ONE (23:25)
--- NOTE | 2019-05-12 23:34 | ED ---
Shortness of Breath - HPI Summary HPI Summary: The pt is a 54 yr old female presenting to [facility] c/o SOB beginning 1.5 hours RECREATION THERAPIST. She states that the onset of her SOB was sudden and reports tightness in her chest and difficulty breathing. The pt is a former smoker and has Hx of COPD , emphysema, and CHF. Nothing is noted to aggravate/alleviate Sx. - History of Current Complaint Chief Complaint: EDShortnessOfBreath Time Seen by Provider: 05/12/19 23:16 Hx Obtained From: Patient Onset/Duration: Sudden Onset, Lasting Hours, Still Present Current Severity: Severe Aggravating Factors: Nothing Alleviating Factors: Nothing - Allergy/Home Medications Allergies/Adverse Reactions: Allergies Allergy/AdvReac Type Severity Reaction Status Date / Time levofloxacin [From Levaquin] Allergy Nausea And Verified 05/13/19 02:31 Vomiting ondansetron Allergy Hives Verified 05/13/19 02:31 [From Zofran (as hydrochloride)] Home Medications: Home Medications Carvedilol 25 mg PO BID 05/13/19 [History Confirmed 05/13/19] Humalog 15 unit SUBCUT AC 05/13/19 [History Confirmed 05/13/19] Toujeo Solostar Pen (NF) 70 unit SUBCUT DAILY 05/13/19 [History Confirmed ] PMH/Surg Hx/FS Hx/Imm Hx Endocrine/Hematology History: Reports: Hx Anticoagulant Therapy, Hx Diabetes, Hx Anemia Cardiovascular History: Reports: Hx Angina, Hx Angioplasty, Hx Congestive Heart Failure, Hx Coronary Artery Disease, Hx Hypercholesterolemia, Hx Hypertension, Hx Myocardial Infarction, Hx Peripheral Vascular Disease, Hx Valvular Heart Disease - mitral valve replacement, Other Cardiovascular Problems/Disorders - cardiomyopathy EF 40%, bipass, PVD Denies: Hx Pacemaker/ICD Respiratory History: Reports: Hx Chronic Obstructive Pulmonary Disease (COPD) GI History: Reports: Hx Gastroesophageal Reflux Disease Musculoskeletal History: Reports: Hx Arthritis - general Sensory History: Reports: Hx Contacts or Glasses - glasses Denies: Hx Hearing Aid Opthamlomology History: Reports: Hx Contacts or Glasses - glasses Neurological History: Reports: Hx Transient Ischemic Attacks (TIA) - 2014 Denies: Hx Headaches Psychiatric History: Reports: Hx Anxiety, Hx Depression Denies: Hx Panic Disorder - Surgical History Surgery Procedure, Year, and Place: Complete Hysterectomy 2004; [facility]; HEART CATH- 4 CARDIAC STENTS, CABG, [facility] Infectious Disease History: No Infectious Disease History: Denies: Traveled Outside the [place] in Last 30 Days - Family History Known Family History: Positive: Cardiac Disease - Social History Alcohol Use: None Hx Substance Use: No Substance Use Type: Reports: None Hx Tobacco Use: Yes Smoking Status (MU): Former Smoker Type: Cigarettes Length of Time of Smoking/Using Tobacco: since she was 11 until 1 year ago Have You Smoked in the Last Year: No Review of Systems Positive: Chest Pain - Tightness in chest. Positive: Shortness Of Breath All Other Systems Reviewed And Are Negative: Yes Physical Exam - Summary Physical Exam Summary: VITAL SIGNS: Reviewed. GENERAL: Patient is a well-developed and nourished female who is lying comfortable in the stretcher. Patient is in mild respiratory distress. HEAD AND FACE: No signs of trauma. No ecchymosis, hematomas or skull depressions. No sinus tenderness. EYES: PERRLA, EOMI x 2, No injected conjunctiva, no nystagmus. EARS: Hearing grossly intact. Ear canals and tympanic membranes are within normal limits. MOUTH: Oropharynx within normal limits. NECK: Supple, trachea is midline, no adenopathy, no JVD, no carotid bruit, no c- spine tenderness, neck with full ROM CHEST: Symmetric, no tenderness at palpation. Tachycardia. LUNGS: Rales bilaterally. Decreased breath sounds bilaterally. No wheezing or crackles. CVS: Regular rate and rhythm, S1 and S2 present, no murmurs or gallops appreciated. ABDOMEN: Soft, non-tender. No signs of distention. No rebound no guarding, and no masses palpated. Bowel sounds are normal. EXTREMITIES: FROM in all major joints, bilateral trace pitting edema, no cyanosis or clubbing. NEURO: Alert and oriented x 3. No acute neurological deficits. Speech is normal and follows commands. SKIN: Dry and warm Triage Information Reviewed: Yes Vital Signs On Initial Exam: Initial Vitals Temp Pulse Resp BP Pulse Ox 97.7 F 103 22 184/119 91 05/12/19 22:28 05/12/19 22:28 05/12/19 22:28 05/12/19 22:28 05/12/19 22:28 Vital Signs Reviewed: Yes Diagnostics - Vital Signs Vital Signs Temp Pulse Resp BP Pulse Ox 05/12/19 22:28 97.7 F 103 22 184/119 91 - Laboratory Result Diagrams: 05/12/19 23:40 05/12/19 23:40 Lab Statement: Any lab studies that have been ordered have been reviewed, and results considered in the medical decision making process. - Radiology No standard instances Radiology Interpretation Completed By: ED Physician Summary of Radiographic Findings: Cardiomegaly and bilateral interstitial infiltrate consistent with CHF, pending official report. CXR Radiology Interpretation Completed By: ED Physician Summary of Radiographic Findings: Cardiomegaly and bilateral interstitial infiltrate consistent with CHF, pending official report. - EKG EKG Cardiac Rate: Tachycardia - 106 BPM EKG Rhythm: Sinus Tachycardia ST Segment: Non-Specific EKG Comparison: No Significant Change Summary of EKG Findings: Q wave inferior leads, no difference from prior EKG result on 12/05/2018. Course/Dx - Course Course Of Treatment: The pt is a 54 yr old female presenting to [facility] c/o SOB. She states that the onset of her SOB was sudden and reports tightness in her chest and difficulty breathing. An EKG reveals sinus tachycardia @ 106 BPM, Q waves in inferior leads, non-specific ST, and no difference from prior EKG on . CXR reveals cardiomegaly and bilateral interstitial infiltrate consistent with CHF. Test results with no significant abnormalities expect for WBC @ 13.2, RDW @ 16, Absolute Neuts @ 9.9, APTT @ 25.5, ABG pCO2 @ 30, ABG pO2 @ 149, ABG Base Excess @ -7.3, Carbon Dioxide @ 18, Anion Gap @ 13, BUN @ 35, Creatinine @ 1.00, BUN/Creatinine @ 35.0, Glucose @ 343, Calcium @ 7.9, AST @ 10 , Alkaline phosphatase @ 220, and BNP @ 354. In the ED course the patient was given 2.5mg Ventolin 2.5mg/3ml INH, 1 neb Duoneb INH, 40 mg Lasix IV, 6 units Insulin regular IV, Ativan 1 mg IV, 2gm in 50 mls Magnesium sulfate 2 Gm @ 50 mls/hr IVPB, 125 mg Solu-Medrol 125mg IV, 2 inch NTG. Patient was also placed on Bipap. The patient is diagnosed with CHF and Dr. Neal will admit the patient to [facility] The patient is agreeable with this plan. - Diagnoses Provider Diagnoses: CHF (congestive heart failure) - Physician Notifications Discussed Care of Patient With: Spike Neal Time Discussed With Above Provider: 01:14 Instructed by Provider To: Admit As Inpatient Discharge - Sign-Out/Discharge Documenting (check all that apply): Patient Departure - admit Patient Received Moderate/Deep Sedation with Procedure: No - Discharge Plan Condition: Fair Disposition: ADMITTED TO [facility] Referrals: Jamaal Garcia DO [Primary Care Provider] - - Attestation Statements Document Initiated by Scribe: Yes Documenting Scribe: DAVID LIMA Provider For Whom Scribe is Documenting (Include Credential): LY MOLINA MD Scribe Attestation: IDAVID, scribed for LY MOLINA MD on 05/13/19 at 0243. Status of Scribe Document: Ready
[2019-05-12] MEDS ORDERED: LORazepam INJ* 2 MG/ML 1 ML VIAL IV PUSH ONE (23:39)
[2019-05-12] MEDS ORDERED: Lorazepam PYXIS KEY ONE (23:39)
[2019-05-12] MEDS ORDERED: Lorazepam PYXIS KEY PRN (23:39)
[2019-05-12] MEDS ORDERED: LORazepam INJ* 2 MG/ML 1 ML VIAL ONE (23:40)
[2019-05-12 23:48] LABS: ABS Basophils 0.1 10^3/ul (0-0.2); ABS Eosinophils 0.3 10^3/ul (0-0.6); ABS Lymphocytes 2.2 10^3/ul (1.0-4.8); ABS Monocytes 0.7 10^3/ul (0-0.8); ABS Neutrophils 9.9 10^3/ul (1.5-7.7); Eosinophil % 2.5 %; Hematocrit 42 % (35-47); Hemoglobin 14.1 g/dL (12.0-16.0); Lymphocyte % 16.6 %; Mean Corpuscular HGB Conc 33 g/dL (31-36); Mean Corpuscular Hemoglobin 29 pg (27-31); Mean Corpuscular Volume 87 fL (80-97); Mean Platelet Volume 8.8 fL (7.4-10.4); Nucleated Red Blood Cells % 0.1; Platelet Count 311 10^3/uL (150-450); Red Blood Count 4.84 10^6 /uL (3.70-4.87); Red Cell Distribution Width 16 % (10-15); White Blood Count 13.2 10^3/uL (3.5-10.8)
[2019-05-12 23:55] LABS: Activated Partial Thrombo Time 25.5 seconds (26.0-38.0); INR 0.96 (0.82-1.09)
[2019-05-13 00:04] LABS: Albumin 3.5 g/dL (3.2-5.2); Albumin/Globulin Ratio 1.2 (1-3); C Reactive Protein 6.48 mg/L (<8.01); Calcium 7.9 mg/dL (8.6-10.3); EGFR African American 69.7 (>60); EGFR Non-African American 57.6 (>60); Potassium 3.5 mmol/L (3.5-5.0); Total Bilirubin 0.2 mg/dL (0.2-1.0); Total Protein 6.5 g/dL (6.4-8.9)
[2019-05-13 00:06] LABS: Troponin I 0.03 ng/mL (<0.04)
[2019-05-13] MEDS ORDERED: Insulin REGULAR(*) 1 UNITS UNIT IV PUSH ONE (00:17)
[2019-05-13] MEDS: Albuterol 2.5 MG/3 ML NEB.SOL* (0.083%) INH SCH ×2 (00:20→00:48)
[2019-05-13] MEDS ORDERED: Carvedilol TAB* 3.125 MG PO ONE (02:26)
[2019-05-13] MEDS ORDERED: Senna TAB PO PRN (02:29)
[2019-05-13] MEDS ORDERED: Al Hydrox/Mg Hydrox/Simet LIQ* 30 ML UDC PO PRN (02:29)
[2019-05-13] MEDS ORDERED: Acetaminophen TAB* 325 MG PO PRN ×2 (02:29→02:57)
[2019-05-13] MEDS ORDERED: Albuterol HFA INHALER* 8 gm MDI INH PRN (02:33)
[2019-05-13] MEDS ORDERED: Calcium Carbonate CHEW TAB* 500 MG (TUMS) PO PRN (02:57)
[2019-05-13] MEDS ORDERED: Docusate CAP* 100 MG PO PRN (02:57)
[2019-05-13] MEDS ORDERED: Dextrose 50% VIAL 50 ml IV PUSH PRN (02:58)
[2019-05-13] MEDS ORDERED: Spiriva Inhaler DEVICE* 1 EACH DEVICE INH SCH ×2 (03:00)
[2019-05-13] MEDS ORDERED: Azithromycin TAB* 250 MG PO ONE (03:11)
[2019-05-13] MEDS: Enoxaparin(*) 40 MG/0.4 ML SYR SUBCUT SCH (03:55)
[2019-05-13] MEDS ORDERED: NS 0.9% 500 ML* 500 ML IV ONE (04:29)
[2019-05-13] MEDS: Pantoprazole TAB * 40 MG TAB PO SCH (06:04)
[2019-05-13 06:40] LABS: Urine Appearance Clear; Urine Bacteria Absent (Absent); Urine Bilirubin Negative (Negative); Urine Blood 1+ (Negative); Urine Color Straw; Urine Glucose 3+(>=500 mg/dL) (Negative); Urine Ketones Negative (Negative); Urine Nitrite Negative (Negative); Urine Protein Negative (Negative); Urine Red Blood Cell 1+(3-5/hpf) (Absent); Urine Specific Gravity 1.014 (1.010-1.030); Urine Urobilinogen Negative (Negative); Urine White Blood Cell 1+(6-10/hpf) (Absent)
[2019-05-13] MEDS ORDERED: Albuterol/Ipratropium NEB.SOL* Albuterol 2.5 MG/Ipratropium 0.5 MG 3 ML INH SCH (07:00)
[2019-05-13] MEDS ORDERED: Insulin LISPRO* 1 UNITS UNIT SUBCUT SCH (07:30)
[2019-05-13] MEDS: Tiotropium CAP.INH* CAP.INH/18 MCG (USE ORDER SET !) INH SCH (07:38)
[2019-05-13] MEDS ORDERED: Albuterol/Ipratropium NEB.SOL* Albuterol 2.5 MG/Ipratropium 0.5 MG 3 ML INH PRN (07:43)
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
[2019-05-13] MEDS ORDERED: Insulin GLARGINE(*) 1 UNITS UNIT SUBCUT SCH ×2 (09:00)
[2019-05-13] MEDS ORDERED: Empaglifozin (NF) 10 MG TABLET PO SCH (09:00)
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
[2019-05-13] MEDS: Aspirin EC TAB* 81 MG TAB.EC PO SCH (09:48)
[2019-05-13] MEDS: Gabapentin CAP(*) 300 MG PO SCH (09:48)
[2019-05-13] MEDS: predniSONE TAB* 20 MG PO SCH (09:48)
[2019-05-13] MEDS: guaiFENesin ER TAB 600 MG PO SCH ×2 (09:48→21:23)
[2019-05-13] MEDS: Losartan TAB* 25 MG PO SCH (09:48)
[2019-05-13] MEDS: Clopidogrel TAB* 75 MG PO SCH (09:48)
[2019-05-13] MEDS: Insulin LISPRO* 1 UNITS UNIT SUBCUT SCH ×3 (09:50→23:45)
[2019-05-13] MEDS ORDERED: Dextrose 50% Syringe 50 ML* 25 GM/50 ML SYRINGE IV PUSH PRN (12:50)
[2019-05-13] MEDS ORDERED: Insulin LISPRO* 1 UNITS UNIT SUBCUT ONE (12:50)
[2019-05-13] MEDS ORDERED: Atorvastatin* 80 MG TAB PO SCH (18:00)
[2019-05-13] MEDS ORDERED: NS 0.9% 500 ML* 500 ML IV SCH (21:00)
[2019-05-13] MEDS: Carvedilol TAB* 3.125 MG PO SCH (21:25)
[2019-05-14] MEDS: Enoxaparin(*) 40 MG/0.4 ML SYR SUBCUT SCH (04:10)
[2019-05-14] MEDS: Pantoprazole TAB * 40 MG TAB PO SCH (05:11)
[2019-05-14 06:22] LABS: ABS Lymphocytes 1.5 10^3/ul (1.0-4.8); ABS Monocytes 0.6 10^3/ul (0-0.8); ABS Neutrophils 8.3 10^3/ul (1.5-7.7); Eosinophil % 0.2 %; Hematocrit 32 % (35-47); Hemoglobin 10.7 g/dL (12.0-16.0); Lymphocyte % 13.9 %; Mean Corpuscular HGB Conc 34 g/dL (31-36); Mean Corpuscular Hemoglobin 29 pg (27-31); Mean Corpuscular Volume 87 fL (80-97); Mean Platelet Volume 9.2 fL (7.4-10.4); Platelet Count 213 10^3/uL (150-450); Red Blood Count 3.63 10^6 /uL (3.70-4.87); Red Cell Distribution Width 15 % (10-15); White Blood Count 10.5 10^3/uL (3.5-10.8)
[2019-05-14 06:34] LABS: BUN/Creatinine Ratio 37.5 (8-20); Calcium 8.9 mg/dL (8.6-10.3); EGFR African American 61.1 (>60); EGFR Non-African American 50.5 (>60); Magnesium 2.8 mg/dL (1.9-2.7); Potassium 4.2 mmol/L (3.5-5.0)
[2019-05-14] MEDS: Tiotropium CAP.INH* CAP.INH/18 MCG (USE ORDER SET !) INH SCH (08:20)
[2019-05-14] MEDS: Insulin LISPRO* 1 UNITS UNIT SUBCUT SCH ×2 (08:39→11:56)
[2019-05-14] MEDS: guaiFENesin ER TAB 600 MG PO SCH (08:41)
[2019-05-14] MEDS: Losartan TAB* 25 MG PO SCH (08:41)
[2019-05-14] MEDS: Aspirin EC TAB* 81 MG TAB.EC PO SCH (08:41)
[2019-05-14] MEDS: Gabapentin CAP(*) 300 MG PO SCH (08:42)
[2019-05-14] MEDS: Carvedilol TAB* 3.125 MG PO SCH (08:42)
[2019-05-14] MEDS: Clopidogrel TAB* 75 MG PO SCH (08:42)
[2019-05-14] MEDS: predniSONE TAB* 20 MG PO SCH (08:43)
[2019-05-14] MEDS ORDERED: Furosemide TAB* 40 MG PO SCH (09:00)
[2019-05-14] MEDS ORDERED: Insulin GLARGINE(*) 1 UNITS UNIT SUBCUT SCH (09:00)
[2019-05-14] MEDS ORDERED: Azithromycin TAB* 250 MG PO SCH (09:00)
[2019-05-14 11:42] VITALS: BP 122/72
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
[2019-05-14] MEDS ORDERED: Furosemide IV* 10 MG/ML 2 ML VIAL (20 MG) IV ONE (12:11)
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
== END 2019-05-14 14:15 | disposition home or self-care (01) ==
LOC: ED 22:15 → MED 05-13 02:39
PROVIDERS: ADMIT Internal Medicine; ATTEND Internal Medicine
DX: J44.1 Chronic obstructive pulmonary disease with (acute) exacerbation (principal); I50.23 Acute on chronic systolic (congestive) heart failure; I25.10 Atherosclerotic heart disease of native coronary artery without angina pectoris; Z95.1 Presence of aortocoronary bypass graft; I73.9 Peripheral vascular disease, unspecified; K21.9 Gastro-esophageal reflux disease without esophagitis; E78.5 Hyperlipidemia, unspecified; E11.9 Type 2 diabetes mellitus without complications; Z79.4 Long term (current) use of insulin; E11.40 Type 2 diabetes mellitus with diabetic neuropathy, unspecified; Z95.4 Presence of other heart-valve replacement; Z79.82 Long term (current) use of aspirin; Z79.899 Other long term (current) drug therapy; I25.5 Ischemic cardiomyopathy; Z87.891 Personal history of nicotine dependence; E66.9 Obesity, unspecified; Z95.820 Peripheral vascular angioplasty status with implants and grafts
CPT/HCPCS: 36415; 71045; 80048; 80053; 81003; 81015; 82803; 82947; 83605; 83735; 83880; 84484; 85025; 85610; 85730; 86140; 87040; 87086; 93005; 94640; 96361; 96365; 96372; 96375; 99284; A9270-GY; G0378; J1650; J1940; J2060; J2930; J3475; J7512

== ENCOUNTER 2019-08-20 16:13 | Emergency (ER) | payer MEDICARE ==
[2019-08-20 17:11] LABS: ABS Basophils 0.1 10^3/ul (0-0.2); ABS Eosinophils 0.2 10^3/ul (0-0.6); ABS Lymphocytes 1.4 10^3/ul (1.0-4.8); ABS Monocytes 0.5 10^3/ul (0-0.8); ABS Neutrophils 5.2 10^3/ul (1.5-7.7); Eosinophil % 2.5 %; Hematocrit 41 % (35-47); Hemoglobin 13.7 g/dL (12.0-16.0); Lymphocyte % 18.8 %; Mean Corpuscular HGB Conc 34 g/dL (31-36); Mean Corpuscular Hemoglobin 29 pg (27-31); Mean Corpuscular Volume 86 fL (80-97); Mean Platelet Volume 9.7 fL (7.4-10.4); Nucleated Red Blood Cells % 0.1; Platelet Count 222 10^3/uL (150-450); Red Blood Count 4.74 10^6 /uL (3.70-4.87); Red Cell Distribution Width 15 % (10-15); White Blood Count 7.4 10^3/uL (3.5-10.8)
[2019-08-20 17:17] LABS: INR 0.88 (0.82-1.09)
[2019-08-20 17:26] LABS: Albumin 3.8 g/dL (3.2-5.2); Albumin/Globulin Ratio 1.1 (1-3); BUN/Creatinine Ratio 28.2 (8-20); Calcium 9.5 mg/dL (8.6-10.3); EGFR African American 37.8 (>60); EGFR Non-African American 31.2 (>60); Globulin 3.5 g/dL (2-4); Potassium 4.8 mmol/L (3.5-5.0); Total Bilirubin 0.5 mg/dL (0.2-1.0); Total Protein 7.3 g/dL (6.4-8.9)
[2019-08-20 17:27] LABS: Troponin I 0.03 ng/mL (<0.04)
[2019-08-20] MEDS ORDERED: NS 0.9% 1000 ML** 1,000 ML IV ONE (18:19)
[2019-08-20] MEDS ORDERED: Insulin REGULAR(*) 1 UNITS UNIT SUBCUT ONE ×3 (18:19→21:09)
[2019-08-20] MEDS ORDERED: Acetaminophen TAB* 325 MG PO ONE (19:43)
[2019-08-20] MEDS ORDERED: Lidocaine PATCH 5%* 1 PATCH TRANSDERM SCH (20:00)
[2019-08-20] MEDS ORDERED: Lidocaine Patch REMOVE* 1 NOTE MISC SCH (21:00)
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
[2019-08-20 22:15] VITALS: BP 102/65
== END 2019-08-20 22:15 | disposition home or self-care (01) ==
LOC: ED 16:13
DX: E11.65 Type 2 diabetes mellitus with hyperglycemia (principal); Z79.4 Long term (current) use of insulin; R07.81 Pleurodynia; M25.512 Pain in left shoulder; W01.198A Fall on same level from slipping, tripping and stumbling with subsequent striking against other object, initial encounter; Y92.009 Unspecified place in unspecified non-institutional (private) residence as the place of occurrence of the external cause; I45.10 Unspecified right bundle-branch block; I11.0 Hypertensive heart disease with heart failure; I50.9 Heart failure, unspecified; J44.9 Chronic obstructive pulmonary disease, unspecified; Z95.1 Presence of aortocoronary bypass graft; Z95.5 Presence of coronary angioplasty implant and graft; Z95.2 Presence of prosthetic heart valve; Z79.01 Long term (current) use of anticoagulants; Z88.1 Allergy status to other antibiotic agents; Z88.8 Allergy status to other drugs, medicaments and biological substances; Z87.891 Personal history of nicotine dependence
CPT/HCPCS: 36415; 71046; 80053; 82947; 84484; 85025; 85610; 93005; 96360; 96361; 96372; 99283; A9270-GY

== ENCOUNTER 2019-09-15 14:10 | Emergency (ER) | payer MEDICARE ==
[2019-09-15] MEDS ORDERED: NS 0.9% 1000 ML** 1,000 ML IV ONE ×2 (15:56→18:24)
--- NOTE | 2019-09-15 16:04 | ED ---
Abdominal Pain/Female - HPI Summary HPI Summary: The patient is a 54 y/o F presenting to [facility] with a chief complaint of persistent diarrhea for the last four days and new onset of left-sided abdominal pain this morning. She endorses pain with chills, nausea, and breathing secondary to abdominal pain. She denies fevers and vomiting. Currently , her symptoms are rated 6/10 in severity. She has not taken any antibiotics, traveled, changed her diet, or eaten out recently. She notes her granddaughter comes home from school with similar episodes. She reports that she believes her symptoms began after her PCP changed her insulin recently. PMHx: DM, anemia, CHF , CAD, HLD, HTN, UT, peripheral vascular disease, CABG, COPD, TIA, anxiety, depression. Former smoker, occasional EtOH, no substance use. Medications reviewed. Allergies noted. - History of Current Complaint Chief Complaint: EDAbdPain Stated Complaint: DIARREA/ABD PAIN PER PT Time Seen by Provider: 09/15/19 15:51 Hx Obtained From: Patient Onset/Duration: Lasting Days, Still Present, Worse Since - today Timing: Days Severity Initially: Mild Severity Currently: Moderate Pain Intensity: 6 Pain Scale Used: 0-10 Numeric Location: Other - left-sided Radiates: No Character: Sharp Aggravating Factor(s): Nothing Alleviating Factor(s): Nothing Associated Signs and Symptoms: Positive: Nausea, Diarrhea, Other: - chills, pain with breathing secondary to abd pain. Negative: Fever, Vomiting Allergies/Adverse Reactions: Allergies Allergy/AdvReac Type Severity Reaction Status Date / Time levofloxacin [From Levaquin] Allergy Nausea And Verified 05/13/19 02:31 Vomiting ondansetron Allergy Hives Verified 05/13/19 02:31 [From Zofran (as hydrochloride)] Home Medications: Home Medications Albuterol HFA INHALER* [Ventolin HFA Inhaler*] 1 - 2 puff INH Q6H PRN 09/15/19 [ History Confirmed 09/15/19] Aspirin 81 mg CHEW TAB* [Aspirin Low Dose TAB*] 81 mg PO DAILY 09/15/19 [ History Confirmed 09/15/19] Carvedilol TAB* [Coreg TAB*] 3.125 mg PO BID 09/15/19 [History Confirmed ] Empaglifozin (NF) [Jardiance (Nf)] 10 mg PO DAILY 09/15/19 [History Confirmed ] Insulin Detemir [Levemir Flextouch] 90 units SUBCUT QAM 09/15/19 [History Confirmed 09/15/19] Insulin NPH Hum/Reg Insulin Hm [Novolin 70-30 Flexpen] 30 unit SUBCUT QAM [History Confirmed 09/15/19] Pantoprazole TAB * [Protonix TAB*] 40 mg PO BID 09/15/19 [History Confirmed ] Umeclidinium 62.5 MDI(NF) [Incruse ELLIPTA MDI (NF)] 1 puff INH DAILY 09/15/19 [ History Confirmed 09/15/19] PMH/Surg Hx/FS Hx/Imm Hx Endocrine/Hematology History: Reports: Hx Anticoagulant Therapy, Hx Diabetes, Hx Anemia Cardiovascular History: Reports: Hx Angina, Hx Angioplasty, Hx Congestive Heart Failure, Hx Coronary Artery Disease, Hx Hypercholesterolemia, Hx Hypertension, Hx Myocardial Infarction, Hx Peripheral Vascular Disease, Hx Valvular Heart Disease - mitral valve replacement, Other Cardiovascular Problems/Disorders - cardiomyopathy EF 40%, bipass, PVD Denies: Hx Pacemaker/ICD Respiratory History: Reports: Hx Chronic Obstructive Pulmonary Disease (COPD) GI History: Reports: Hx Gastroesophageal Reflux Disease Musculoskeletal History: Reports: Hx Arthritis - general Sensory History: Reports: Hx Contacts or Glasses Denies: Hx Hearing Aid Opthamlomology History: Reports: Hx Contacts or Glasses Neurological History: Reports: Hx Transient Ischemic Attacks (TIA) - 2014 Denies: Hx Headaches Psychiatric History: Reports: Hx Anxiety, Hx Depression Denies: Hx Panic Disorder - Surgical History Surgical History: Yes Surgery Procedure, Year, and Place: Complete Hysterectomy 2004; ANNY; HEART CATH- 4 CARDIAC STENTS, CABG, MVR Infectious Disease History: No Infectious Disease History: Denies: Traveled Outside the [place] in Last 30 Days - Family History Known Family History: Positive: Cardiac Disease - Social History Alcohol Use: Occasionally Hx Substance Use: No Substance Use Type: Reports: None Hx Tobacco Use: Yes Smoking Status (MU): Former Smoker Type: Cigarettes Length of Time of Smoking/Using Tobacco: since she was 11 until 1 year ago Have You Smoked in the Last Year: No Review of Systems Positive: Chills. Negative: Fever Positive: Other - pain with breathing secondary to abdominal pain Positive: Abdominal Pain - left-sided, Diarrhea, Nausea. Negative: Vomiting All Other Systems Reviewed And Are Negative: Yes Physical Exam - Summary Physical Exam Summary: VITAL SIGNS: Reviewed. GENERAL: Patient is a well-developed and nourished female who is lying comfortable in the stretcher. Patient is not in any acute respiratory distress. HEAD AND FACE: No signs of trauma. No ecchymosis, hematomas or skull depressions. No sinus tenderness. EYES: PERRLA, EOMI x 2, No injected conjunctiva, no nystagmus. EARS: Hearing grossly intact. Ear canals and tympanic membranes are within normal limits. MOUTH: Oropharynx within normal limits. NECK: Supple, trachea is midline, no adenopathy, no JVD, no carotid bruit, no c- spine tenderness, neck with full ROM. CHEST: Symmetric, no tenderness at palpation. LUNGS: Clear to auscultation bilaterally. No wheezing or crackles. CVS: Regular rate and rhythm, S1 and S2 present, no murmurs or gallops appreciated. ABDOMEN: Soft, mild tenderness on the left side. No signs of distention. No rebound, no guarding, and no masses palpated. Increased bowel sounds. EXTREMITIES: FROM in all major joints, no edema, no cyanosis or clubbing. NEURO: Alert and oriented x 3. No acute neurological deficits. Speech is normal and follows commands. SKIN: Dry and warm. Triage Information Reviewed: Yes Vital Signs On Initial Exam: Initial Vitals Temp Pulse Resp BP Pulse Ox 97.6 F 96 20 163/96 94 09/15/19 14:17 09/15/19 14:17 09/15/19 14:17 09/15/19 14:17 09/15/19 14:17 Vital Signs Reviewed: Yes Procedures - Sedation Patient Received Moderate/Deep Sedation with Procedure: No Diagnostics - Vital Signs Vital Signs Temp Pulse Resp BP Pulse Ox 09/15/19 14:17 97.6 F 96 20 163/96 94 - Laboratory Result Diagrams: 09/15/19 15:58 09/15/19 15:58 Lab Statement: Any lab studies that have been ordered have been reviewed, and results considered in the medical decision making process. - CT Abdominopelvic CT CT Interpretation Completed By: Radiologist Summary of CT Findings: Impression: 1. Nonspecific hypodense splenic lesion consider a splenic mass, infarct or posttraumatic change. 2. Mild hepatomegaly and hepatic steatosis. 3. Mild dilatation of mid small bowel loops possibly representing upper limits of normal variation versus a mild partial obstruction. 4. Small left adrenal nodules most consistent with a benign adenomas or myelolipomas. ED physician has reviewed this report. - EKG 1604 Cardiac Rate: NL - 88 BPM EKG Rhythm: Sinus Rhythm EKG Comparison: No Significant Change - Similar to previous EKG taken on . Summary of EKG Findings: EKG taken at 1604 reveals normal sinus rhythm at [address] elevations. ED physician has reviewed and interpreted this EKG. Re-Evaluation - Re-Evaluation First Eval Re-Evaluation Time: 19:50 Change: Improved Comment: She is feeling better. She is not experiencing any nausea, vomiting, or diarrhea. She attempted to provide a stool sample but was unsuccessful. She is eating and drinking without complication. We discussed all results and plan for discharge home. Abdominal Pain Fem Course/Dx - Course Course Of Treatment: This patient is a 54-year-old female who presents to the emergency department with a chief complaint of having left-sided abdominal pain and diarrhea. Blood work without any significant abnormality except for WBCs of 11.5, BUN of 30, creatinine of 1.3, glucose of 319, and CRP of 22.4. Abdominal and pelvic CT impression: 1. Nonspecific hypodense splenic lesion consider a splenic mass, infarct or posttraumatic change. 2. Mild hepatomegaly and hepatic steatosis. 3. Mild dilatation of mid small bowel loops possibly representing upper limits of normal variation versus a mild partial obstruction. 4. Small left adrenal nodules most consistent with a benign adenomas or myelolipomas. In the ED course, the patient was given IV fluids. The patient tried to provide a stool sample multiple times without success. She reports that she is only passing gas but no stool. The patient reports that she is feeling better. The abdominal pains have subsided. Multiple examinations in the ED of the abdomen reveals it is soft and nontender with positive bowel sounds. The patient is eating and drinking without any nausea, vomiting, or diarrhea. Since the patient is feeling better, the patient will be discharged home with follow-up with PCP. Patient was informed about the abnormal findings with the CT suggesting splenic mass, so there is need to follow with the primary care physician. The patient understands and agrees. She reports that she will follow with the primary care physician in the next 2-3 days. I discussed all the findings and test results with the patient. Patient was instructed to return to the emergency room immediately if any of the symptoms return worsens. Plan of care was discussed with the patient and understands and agrees. All questions were answered at patient satisfaction. There were no further complaints or concerns. Lung exam before discharge: CTA B/L. Good air exchange. No wheezing or crackles heard. CVS: S1 and S2 present. No murmurs appreciated. Patient is alert and oriented x 3. Patient is hemodynamically stable. Patient will be discharged home with follow up PCP in the next 2-3 days. - Diagnoses Provider Diagnoses: Diarrhea, Splenic mass, Dehydration, Hyperglycemia Discharge ED - Sign-Out/Discharge Documenting (check all that apply): Patient Departure - Patient will be discharged home. - Discharge Plan Condition: Stable Disposition: HOME Patient Education Materials: Acute Diarrhea (ED) Referrals: Jamaal Garcia DO [Primary Care Provider] - 3 Days Additional Instructions: Follow up with your primary care provider in 2-3 days. Return to the emergency department for any new or worsening symptoms. - Billing Disposition and Condition Condition: STABLE Disposition: Home - Attestation Statements Document Initiated by Nilaibmadiha: Yes Documenting Scribe: Cortney Ricardo Provider For Whom Chelsie is Documenting (Include Credential): Dr. Sathish Oliveira MD Scribe Attestation: Cortney Overton scribed for Dr. Sathish Oliveira MD on 09/16/19 at 1153. Scribe Documentation Reviewed: Yes Provider Attestation: The documentation as recorded by the Cortney izaguirre accurately reflects the service I personally performed and the decisions made by me, Dr. Sathish Oliveira MD Status of Scribmadiha Document: Viewed
[2019-09-15 16:20] LABS: ABS Basophils 0.1 10^3/ul (0-0.2); ABS Eosinophils 0.2 10^3/ul (0-0.6); ABS Lymphocytes 1.3 10^3/ul (1.0-4.8); ABS Monocytes 0.5 10^3/ul (0-0.8); ABS Neutrophils 9.6 10^3/ul (1.5-7.7); Eosinophil % 1.4 %; Hematocrit 40 % (35-47); Hemoglobin 13.3 g/dL (12.0-16.0); Mean Corpuscular HGB Conc 33 g/dL (31-36); Mean Corpuscular Hemoglobin 29 pg (27-31); Mean Corpuscular Volume 86 fL (80-97); Mean Platelet Volume 8.8 fL (7.4-10.4); Platelet Count 295 10^3/uL (150-450); Red Blood Count 4.67 10^6 /uL (3.70-4.87); Red Cell Distribution Width 16 % (10-15); White Blood Count 11.5 10^3/uL (3.5-10.8)
[2019-09-15 16:24] LABS: Albumin 3.7 g/dL (3.2-5.2); BUN/Creatinine Ratio 23.1 (8-20); C Reactive Protein 22.47 mg/L (<8.01); Calcium 9.3 mg/dL (8.6-10.3); EGFR African American 51.5 (>60); EGFR Non-African American 42.5 (>60); Globulin 3.6 g/dL (2-4); Potassium 4.2 mmol/L (3.5-5.0); Total Bilirubin 0.4 mg/dL (0.2-1.0); Total Protein 7.3 g/dL (6.4-8.9)
[2019-09-15] MEDS ORDERED: Iodixanol* (CONTRAST) 320 MG/ML 100 ML SDV IV ONE (17:01)
[2019-09-15 20:29] VITALS: BP 159/91
== END 2019-09-15 20:27 | disposition home or self-care (01) ==
LOC: ED 14:10
DX: R19.7 Diarrhea, unspecified (principal); D73.9 Disease of spleen, unspecified; E86.0 Dehydration; E11.65 Type 2 diabetes mellitus with hyperglycemia; D64.9 Anemia, unspecified; I11.0 Hypertensive heart disease with heart failure; I50.9 Heart failure, unspecified; I25.10 Atherosclerotic heart disease of native coronary artery without angina pectoris; E78.00 Pure hypercholesterolemia, unspecified; J44.9 Chronic obstructive pulmonary disease, unspecified; K21.9 Gastro-esophageal reflux disease without esophagitis; F41.9 Anxiety disorder, unspecified; F32.9 Major depressive disorder, single episode, unspecified; I25.2 Old myocardial infarction; Z86.73 Personal history of transient ischemic attack (TIA), and cerebral infarction without residual deficits; Z95.2 Presence of prosthetic heart valve; Z95.1 Presence of aortocoronary bypass graft; Z90.710 Acquired absence of both cervix and uterus; Z90.49 Acquired absence of other specified parts of digestive tract; Z95.5 Presence of coronary angioplasty implant and graft; Z79.82 Long term (current) use of aspirin; Z79.4 Long term (current) use of insulin; Z79.899 Other long term (current) drug therapy; Z88.1 Allergy status to other antibiotic agents; Z88.8 Allergy status to other drugs, medicaments and biological substances
CPT/HCPCS: 36415; 74177; 80053; 83605; 83690; 85025; 86140; 93005; 96360; 99283; Q9967

== ENCOUNTER 2019-10-27 21:31 | Inpatient (IN) | payer MEDICARE ==
--- OUTSIDE RECORDS SUMMARY | 2019-10-27 21:50 | XMS REPORT | Continuity of Care Document ---
:1965 External Reference #:[id number] Author Name Kiley Solorio O.D. Address [address] [place] [address] Care Team Providers Name Role Phone Jamaal Garcia D.O. - Family Medicine Care Team Information Marketing Co Op Problems Active Problems Provider Date Essential hypertension Onset: Type 2 diabetes mellitus Onset: Parietoalveolar pneumopathy Onset: Asymptomatic coronary heart disease Kiley Solorio O.D. Onset: 10/10/2019 Hypertensive disorder Kiley Solorio O.D. Onset: 10/10/2019 Cardiomyopathy Kiley Solorio O.D. Onset: 10/10/2019 Long-term current use of insulin Kiley Solorio O.D. Onset: 10/10/2019 Type 2 diabetes mellitus with mild Kiley Solorio O.D. Onset: 10/10/2019 nonproliferative diabetic retinopathy without macular edema, bilateral Presbyopia Kiley Solorio O.D. Onset: 10/10/2019 Regular astigmatism Kiley Solorio O.D. Onset: 10/10/2019 Myopia Kiley Solorio O.D. Onset: 10/10/2019 Social History Type Date Description Comments Sex Unknown ETOH Use Occasionally consumes alcohol Recreational Drug Use Denies Drug Use Tobacco Use Start: Unknown End: Patient is a former quit 2 years ago Unknown smoker Smoking Status Reviewed: 10/10/19 Patient is a former quit 2 years ago smoker Allergies, Adverse Reactions, Alerts Active Allergies Reaction Severity Comments Date Zofran 10/10/2019 Levaquin 10/10/2019 Metformin 10/10/2019 Medications Active Medications SIG Qnty Indications Ordering Provider Date Losartan Potassium Dillan Tomas DWilfredoO. 25mg Tablets Clopidogrel Bisulfate Sopchak, Jamaal D.O. 75mg Tablets Atorvastatin Calcium Take One Tablet Unknown 80mg By Mouth Every Tablets Day Gabapentin Take One Capsule Unknown 300mg Capsules By Mouth Every Day Jardiance Sophamletk, Jamaal 10mg Tablets D.O. Pantoprazole Sodium Sopchak, Jamaal 40mg D.O. Tablets DR Furosemide Take Two Tablets Unknown 20mg Tablets By Mouth Every Day Carvedilol Unknown 3.125mg Tablets Insulin Lispro (1 Unit Unknown Dial) 100Unit/ML Solution Pen-Inject Immunizations Description No Information Available Vital Signs Description No Information Available Results Description No Information Available Procedures Description No Information Available Medical Devices Description No Information Available Encounters Description No Information Available Assessments Date Code Description Provider 10/10/2019 E11.3293 Type 2 diabetes mellitus with mild Kiley Solorio O.D. nonproliferative diabetic retinopathy without macular edema, bilateral 10/10/2019 H52.13 Myopia, bilateral Kiley Solorio O.D. 10/10/2019 H52.223 Regular astigmatism, bilateral Kiley Solorio O.D. 10/10/2019 H52.4 Presbyopia Kiley Solorio O.D. 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 Plan of Treatment 10/10/2019 - Kiley Solorio O.D.E11.3293 Type 2 diabetes mellitus with mild nonproliferative diabetic retinopathy without macular edema, bilateralComments: I see mild changes in your retina from the diabetes at this time. It is very important to maintain tight blood sugar control. If you notice any changes to your vision, please call the office to be seen.Follow up:1 year You can expect to have your eyes dilated at your next visit. If Dr. Solorio orders any additional testing, it may require extra time. We recommend that you bring sunglasses, as dilation drops often make you light sensitive until they wear off. We always recommend you bring someone to drive you home if you are uncomfortable driving with your eyes dilated. If you have any questions before your next visit, feel free to call our office at .H52.13 Myopia, bilateralComments:Smoking can increase the risk of developing or worsening any eye related disease, as well as affect your overall health. If you are a smoker , we strongly recommend that you quit.If you are not a smoker, we strongly recommend that you do not start. You have Myopia, or near sightedness. I have given you a prescription for glasses.H52.223 Regular astigmatism, bilateralComments:Astigmatism is a common vision condition that happens when a person's cornea is not symmetrical. Dr. Solorio has given you a prescription to correct for this.H52.4 PresbyopiaComments:You have presbyopia. This is when the lens in your eye loses the ability to change focus, and happens as we age. 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
--- OUTSIDE RECORDS SUMMARY | 2019-10-27 21:50 | XMS REPORT | Continuity of Care Document ---
:1965 External Reference #:[id number] Author Name Jamaal Garcia D.O. Address [address] [place] [address] Care Team Providers Name Role Phone HCP/LW on file Care Team Information Medical Safety Director Unavailable [facility] - [facility], Care Team Information Medical Safety Director Cardiovascular Winifred Ahumada MD - Pulmonary Care Team Information Medical Safety Director Disease Femi Degroot MD - Vascular & Care Team Information Medical Safety Director Interventional Radiology [facility] - Wound Care Care Team Information Medical Safety Director [phone] Problems Active Problems Provider Date Type II diabetes mellitus uncontrolled Latia Monsalve PA Onset: 01/26/2017 Essential hypertension Latia Monsalve PA Onset: 01/26/2017 Ulcer of heel Latia Monsalve PA Onset: 01/26/2017 Parietoalveolar pneumopathy Latia Monsalve PA Onset: 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 Onset: 10/07/2017 Long-term current use of insulin Jamaal Garcia D.O. Onset: 10/07/2017 Social History Type Date Description Comments Sex Unknown Tobacco Use Start: Unknown End: Former Cigarette Smoker quit Jul 2017 Unknown 1ppd-2ppd x 42 years. Smoking Status Reviewed: 10/12/19 Former Cigarette Smoker quit Jul 2017 1ppd-2ppd x 42 years. ETOH Use Denies alcohol use Recreational Drug Use Denies Drug Use Tobacco Use Start: Unknown End: Patient is a former Unknown smoker Exercise Type/Frequency Exercises regularly Sun Exposure Does not use sunscreen Seat Belt/Car Seat Seat Belt Use - Yes Allergies, Adverse Reactions, Alerts Active Allergies Reaction Severity Comments Date Zofran hives 01/18/2017 Levaquin vomiting 07/08/2017 Metformin Diarrhea Moderate 09/08/2019 Medications Active Medications SIG Qnty Indications Ordering Date Provider Novolog Flexpen 20 units before 45ml E11.69 [facility], 10/12/2019 dinner Clay Hinton 100Unit/ML Solution Pen-Inject Novolog Mix 70/30 30u in in the morning 45ml E11.69 [facility], 09/08/2019 Prefilled Flexpen Clay Hinton (70-30)100Unit/ML Supn Albuterol Sulfate 1-2 puffs as directed Unknown 05/14/2019 HFA as needed 108(90Base) mcg/Act Aerosol Incruse Ellipta 1 puff once daily 30units J44.9 [facility], 05/14/2019 Clay Hinton 62.5mcg/Inh Aerosol Levemir Flextouch inject 90 units at 45ml E11.69 [facility], 05/02/2019 breakfast increase by Clay Hinton 100Unit/ML Solution 2 units every 3 days Pen-Inject if 3 day average Am fasting glucose is > [address] 4-drops in ears 30units L20.9 [facility], 04/13/2019 Oil every week for Mo Hinton. excessive cerumen and dry ear canals as needed Jardiance Take 1 tablet by 90tabs E11.65 [facility], 02/01/2019 10mg mouth daily for Type Clay Hinton Tablets 2 diabetes Onetouch Delica use with diabetic 100units [facility], 01/30/2019 Lancets Fine 30G supplies five times a Clay Hinton day as directed 30G Misc BD Uf Mini Pen Use Up To 6 Times 400units [facility], 01/27/2019 Needle [id number] Daily as Directed For Clay Hinton Insulin Administration Onetouch Verio use 1-4 times daily 1units [facility], 01/27/2019 as directed Clay Hinton w/Device Kit Onetouch Verio test 1-4 daily as 200units E11.65 [facility], 01/27/2019 directed Clay Hinton Strips Aspirin [facility] 1 by mouth daily Unknown 11/23/2018 81mg Tylenol give 2 tablets by Unknown 05/26/2018 325mg mouth [id number] Tablets needed / otc Pantoprazole Sodium Take One Tablet By 60tabs Radha, 05/26/2018 Mouth Twice A Day Clay Hinton 40mg Tablets DR Clopidogrel 1 tablet by mouth 90tabs [facility], 11/04/2017 Bisulfate daily Clay Hinton 75mg Tablets Atorvastatin 1 by mouth every Unknown 08/20/2017 Calcium evening 80mg Tablets Docusate Sodium 1 cap by mouth twice Unknown 08/20/2017 a day as needed for 100mg Capsules constipation Furosemide take two tablets by 180tabs [facility], 08/20/2017 20mg mouth every day Clay Hinton Tablets Carvedilol Take One Tablet [facility]2017 3.125mg Mouth Twice A Day Clay Hinton Tablets Lancets use as directed for 200units E11.65 [facility] 05/20[facility]2017 [place] diabetic testing Clay Hinton Safety Misc BD Pen or appropriate 400units [facility], 05/20/2017 Needle/Mini/Ultrafi needles for Clay Hinton ne/31G X 3/16" lantus/Novolog pen. 31G use up to 6/day, as X 5 mm Misc directed, for insulin administration Gabapentin 1 by mouth daily 90caps [facility] 300[facility] Clay Hinton Capsules Losartan Potassium Take One Tablet By Tomas Grimaldo, Mouth Every Morning DO 50mg Tablets For Diabetic Kidney Protection History Medications Fluconazole 2 tabs on day 1 the 1 15tabs Jamaal Garcia, 07/21/2019 - 200mg tab daily for 2 D.O. 08/04/2019 Tablets weeks. Stop atorvastatin while taking this medication. Prednisone 1 tablet by mouth 2tabs Unknown 05/14/2019 - 20mg once daily x 2 days 05/16/2019 Tablets Immunizations CPT Code Status Date Vaccine Lot # 61317 Given 07/19/2019 Influenza Virus Vaccine, Quadrivalent, Split, [id number] Preservative Free 88863 Given 09/01/2018 Influenza Virus Vaccine, Quadrivalent, Split, [id number] Preservative Free 14026 Given 07/08/2017 Influenza Virus Vaccine, Quadrivalent, Split, [id number] Preservative Free 92211 Given 01/18/2017 Adacel or Boostrix, TDaP [id number] Given 11/30/2016 Influenza Virus Vaccine, Quadrivalent, Split, Im Use U-Pneum Given 01/18/2009 Pneumococcal,Unspecified Vital Signs Date Vital Result Comment 10/12/2019 12:24pm BP Systolic 118 mmHg BP Diastolic 70 mmHg 10/06/2019 11:22am BP Systolic 120 mmHg BP Diastolic 74 mmHg Body Temperature 97.5 F Weight 195.50 lb w/boots Results Test Acquired Date Facility Test Result H/L Range Note Laboratory test 09/15/2019 [facility] Lactic Acid 1.5 mmol/L Normal 0.5-2.0 1 finding [phone] Comp Metabolic 09/15/2019 [facility] Sodium 135 mmol/L Normal 135- 145 Panel [phone] Potassium 4.2 mmol/L Normal 3.5-5.0 Chloride 102 mmol/L Normal 101-111 Co2 Carbon Dioxide 24 mmol/L Normal 22-32 Anion Gap 9 mmol/L Normal 2-11 Glucose 319 mg/dL High 70-100 Blood Urea Nitrogen 30 mg/dL High 6-24 Creatinine 1.30 mg/dL High 0.51-0.95 BUN/Creatinine Ratio 23.1 High 8-20 Calcium 9.3 mg/dL Normal 8.6-10.3 Total Protein 7.3 g/dL Normal 6.4-8.9 Albumin 3.7 g/dL Normal 3.2-5.2 Globulin 3.6 g/dL Normal 2-4 Albumin/Globulin Ratio 1.0 Normal 1-3 Total Bilirubin 0.40 mg/dL Normal 0.2-1.0 Alkaline Phosphatase 178 U/L High 34-104 Alt 13 U/L Normal 7-52 Ast 13 U/L Normal 13-39 Egfr Non- 42.5 >60 Egfr 51.5 >60 2 Laboratory test finding 09/15/2019 [facility] Lipase 12 U/L Normal 11.0-82.0 [phone] C Reactive Protein 22.47 mg/L High <8.01 CBC Auto Diff 09/15/2019 [facility] White Blood 11.5 10^3/uL High 3.5 -10.8 [phone] Count Red Blood Count 4.67 10^6/uL Normal 3.70-4.87 Hemoglobin 13.3 g/dL Normal 12.0-16.0 Hematocrit 40 % Normal 35-47 Mean Corpuscular Volume 86 fL Normal 80-97 Mean Corpuscular Hemoglobin 29 pg Normal 27-31 Mean Corpuscular HGB Conc 33 g/dL Normal 31-36 Red Cell Distribution Width 16 % High 10-15 Platelet Count 295 10^3/uL Normal 150-450 Mean Platelet Volume 8.8 fL Normal 7.4-10.4 Abs Neutrophils 9.6 10^3/uL High 1.5-7.7 Abs Lymphocytes 1.3 10^3/uL Normal 1.0-4.8 Abs Monocytes 0.5 10^3/uL Normal 0-0.8 Abs Eosinophils 0.2 10^3/uL Normal 0-0.6 Abs Basophils 0.1 10^3/uL Normal 0-0.2 Abs Nucleated RBC 0.0 10^3/uL Granulocyte % 83.0 % Lymphocyte % 11.0 % Monocyte % 4.0 % Eosinophil % 1.4 % Basophil % 0.6 % Nucleated Red Blood Cells % 0.0 Urine Microalbumin 09/08/2019 [facility] Ur Microalbumin 26.1 mg/L Random [phone] (mg/L) Urine Creatinine 26.09 mg/dL Urine Microalbumin/Creatinine 100.0 High <31 Laboratory test 09/08/2019 In House Hemoglobin A1c 11.8 finding Laboratory test 08/20/2019 [facility] Troponin-I (TnI) 0.03 ng/mL < 0.04 3 finding [phone] Comp Metabolic 08/20/2019 [facility] Sodium 130 mmol/L Low 135-145 Panel [phone] Potassium 4.8 mmol/L Normal 3.5-5.0 Chloride 96 mmol/L Low 101-111 Co2 Carbon Dioxide 24 mmol/L Normal 22-32 Anion Gap 10 mmol/L Normal 2-11 Blood Urea Nitrogen 48 mg/dL High 6-24 Creatinine 1.70 mg/dL High 0.51-0.95 BUN/Creatinine Ratio 28.2 High 8-20 Calcium 9.5 mg/dL Normal 8.6-10.3 Total Protein 7.3 g/dL Normal 6.4-8.9 Albumin 3.8 g/dL Normal 3.2-5.2 Globulin 3.5 g/dL Normal 2-4 Albumin/Globulin Ratio 1.1 Normal 1-3 Total Bilirubin 0.50 mg/dL Normal 0.2-1.0 Alkaline Phosphatase 193 U/L High 34-104 Alt 12 U/L Normal 7-52 Ast 11 U/L Low 13-39 Egfr Non- 31.2 >60 Egfr 37.8 >60 4 Glucose 617 mg/dL Critical high 70-100 5 Inr/Protime 08/20/2019 [facility] Inr 0.88 Normal 0.82-1.09 6 [phone] CBC Auto Diff 08/20/2019 [facility] White Blood 7.4 10^3/uL Normal 3.5-10.8 [phone] Count Red Blood Count 4.74 10^6/uL Normal 3.70-4.87 Hemoglobin 13.7 g/dL Normal 12.0-16.0 Hematocrit 41 % Normal 35-47 Mean Corpuscular Volume 86 fL Normal 80-97 Mean Corpuscular Hemoglobin 29 pg Normal 27-31 Mean Corpuscular HGB Conc 34 g/dL Normal 31-36 Red Cell Distribution Width 15 % Normal 10-15 Platelet Count 222 10^3/uL Normal 150-450 Mean Platelet Volume 9.7 fL Normal 7.4-10.4 Abs Neutrophils 5.2 10^3/uL Normal 1.5-7.7 Abs Lymphocytes 1.4 10^3/uL Normal 1.0-4.8 Abs Monocytes 0.5 10^3/uL Normal 0-0.8 Abs Eosinophils 0.2 10^3/uL Normal 0-0.6 Abs Basophils 0.1 10^3/uL Normal 0-0.2 Abs Nucleated RBC 0.0 10^3/uL Granulocyte % 70.8 % Lymphocyte % 18.8 % Monocyte % 7.1 % Eosinophil % 2.5 % Basophil % 0.8 % Nucleated Red Blood Cells % 0.1 Laboratory 08/20/2019 [facility] Troponin-I (TnI) 0.02 <0.04 7 test finding [phone] ng/mL Laboratory 08/20/2019 [facility] Point of Care > 444 Critical 70-100 8 test finding [phone] Glucose mg/dL high Laboratory 08/20/2019 [facility] Glucose 495 High 70-100 test finding [phone] Confirmatory mg/dL Laboratory 08/20/2019 [facility] Point of Care 432 Critical 70-100 9 test finding [phone] Glucose mg/dL high Laboratory 08/20/2019 [facility] Point of Care 351 High 70-100 10 test finding [phone] Glucose mg/dL Laboratory 07/19/2019 [facility] Erythrocyte Sed 61 mm/Hr High 0-29 test finding [phone] Rate C Reactive Protein 18.39 mg/L High <8.01 Urine Culture And 07/19/2019 [facility] Urine Culture SEE RESULT 11 Sensitivities [phone] BELOW Urinalysis Profile 07/19/2019 [facility] Urine Color Yellow [phone] Urine Appearance Cloudy Urine Specific [place] 1.014 Normal 1.010-1.030 Urine pH 5.0 Normal 5-9 Urine Urobilinogen Negative Negative Urine Ketones Negative Negative Urine Protein Negative Negative Urine Leukocytes 3+ Abnormal Negative Urine Blood 1+ Abnormal Negative Urine Nitrite Negative Negative Urine Bilirubin Negative Negative Urine Glucose 3+(>=500 mg/dL) Abnormal Negative Urine White Blood Cell 3+(>20/hpf) Abnormal Absent Urine Red Blood Cell Trace(0-2/hpf) Absent Urine Bacteria Absent Absent Urine Squamous Epithelial Cell Present Abnormal Absent Urine Yeast Present Abnormal Absent Comp Metabolic Panel 07/19/2019 [facility] Sodium 136 mmol/L Normal 135-145 [phone] Potassium 5.0 mmol/L Normal 3.5-5.0 Chloride 96 mmol/L Low 101-111 Co2 Carbon Dioxide 27 mmol/L Normal 22-32 Anion Gap 13 mmol/L High 2-11 Glucose 192 mg/dL High 70-100 Blood Urea Nitrogen 46 mg/dL High 6-24 Creatinine 1.90 mg/dL High 0.51-0.95 BUN/Creatinine Ratio 24.2 High 8-20 Calcium 9.7 mg/dL Normal 8.6-10.3 Total Protein 6.8 g/dL Normal 6.4-8.9 Albumin 4.0 g/dL Normal 3.2-5.2 Globulin 2.8 g/dL Normal 2-4 Albumin/Globulin Ratio 1.4 Normal 1-3 Total Bilirubin 0.60 mg/dL Normal 0.2-1.0 Alkaline Phosphatase 178 U/L High 34-104 Alt 13 U/L Normal 7-52 Ast 12 U/L Low 13-39 Egfr Non- 27.4 >60 Egfr 33.2 >60 12 CBC Auto Diff 07/19/2019 [facility] White Blood 9.8 10^3/uL Normal 3.5-10.8 [phone] Count Red Blood Count 4.44 10^6/uL Normal 3.70-4.87 Hemoglobin 12.6 g/dL Normal 12.0-16.0 Hematocrit 38 % Normal 35-47 Mean Corpuscular Volume 86 fL Normal 80-97 Mean Corpuscular Hemoglobin 29 pg Normal 27-31 Mean Corpuscular HGB Conc 33 g/dL Normal 31-36 Red Cell Distribution Width 16 % High 10-15 Platelet Count 310 10^3/uL Normal 150-450 Mean Platelet Volume 9.1 fL Normal 7.4-10.4 Abs Neutrophils 6.5 10^3/uL Normal 1.5-7.7 Abs Lymphocytes 2.0 10^3/uL Normal 1.0-4.8 Abs Monocytes 0.8 10^3/uL Normal 0-0.8 Abs Eosinophils 0.4 10^3/uL Normal 0-0.6 Abs Basophils 0.0 10^3/uL Normal 0-0.2 Abs Nucleated RBC 0.0 10^3/uL Granulocyte % 66.8 % Lymphocyte % 20.0 % Monocyte % 8.5 % Eosinophil % 4.2 % Basophil % 0.5 % Nucleated Red Blood Cells % 0.2 Laboratory test 05/15/2019 In House Hemoglobin A1c 11.9 finding Laboratory test 05/13/2019 [facility] Lactic Acid 2.2 Critical high 0.5-2 13 finding [phone] mmol/L .0 Arterial Blood 05/13/2019 [facility] PH Arterial 7.36 Normal 7.35- Gas [phone] 7.45 Pco2 Arterial 30 mmHg Low 35-45 Po2 Arterial 149 mmHg High 80-100 O2 Saturation Arterial TNP % 94.0-98.0 Base Excess Arterial -7.3 mmol/L Low -2.0-2.0 14 Hco3 Arterial 19.3 mmol/L Normal 19-31 Inr/Protime 05/12/2019 [facility] Inr 0.96 Normal 0.82-1.09 15 [phone] Laboratory test 05/12/2019 [facility] Partial 25.5 Low 26.0-38.0 finding [phone] Thrombo Time seconds PTT B-Type Natriuretic Peptide BNP 354 pg/mL High <=100 CBC Auto Diff 05/12/2019 [facility] White Blood 13.2 10^3/uL High 3.5 -10.8 [phone] Count Red Blood Count 4.84 10^6/uL Normal 3.70-4.87 Hemoglobin 14.1 g/dL Normal 12.0-16.0 Hematocrit 42 % Normal 35-47 Mean Corpuscular Volume 87 fL Normal 80-97 Mean Corpuscular Hemoglobin 29 pg Normal 27-31 Mean Corpuscular HGB Conc 33 g/dL Normal 31-36 Red Cell Distribution Width 16 % High 10-15 Platelet Count 311 10^3/uL Normal 150-450 Mean Platelet Volume 8.8 fL Normal 7.4-10.4 Abs Neutrophils 9.9 10^3/uL High 1.5-7.7 Abs Lymphocytes 2.2 10^3/uL Normal 1.0-4.8 Abs Monocytes 0.7 10^3/uL Normal 0-0.8 Abs Eosinophils 0.3 10^3/uL Normal 0-0.6 Abs Basophils 0.1 10^3/uL Normal 0-0.2 Abs Nucleated RBC 0.0 10^3/uL Granulocyte % 75.1 % Lymphocyte % 16.6 % Monocyte % 5.1 % Eosinophil % 2.5 % Basophil % 0.7 % Nucleated Red Blood Cells % 0.1 Comp Metabolic Panel 05/12/2019 [facility] Sodium 141 mmol/L Normal 135-145 [phone] Potassium 3.5 mmol/L Normal 3.5-5.0 Chloride 110 mmol/L Normal 101-111 Co2 Carbon Dioxide 18 mmol/L Low 22-32 Anion Gap 13 mmol/L High 2-11 Glucose 343 mg/dL High 70-100 Blood Urea Nitrogen 35 mg/dL High 6-24 Creatinine 1.00 mg/dL High 0.51-0.95 BUN/Creatinine Ratio 35.0 High 8-20 Calcium 7.9 mg/dL Low 8.6-10.3 Total Protein 6.5 g/dL Normal 6.4-8.9 Albumin 3.5 g/dL Normal 3.2-5.2 Globulin 3.0 g/dL Normal 2-4 Albumin/Globulin Ratio 1.2 Normal 1-3 Total Bilirubin 0.20 mg/dL Normal 0.2-1.0 Alkaline Phosphatase 220 U/L High 34-104 Ast 10 U/L Low 13-39 Egfr Non- 57.6 >60 Egfr 69.7 >60 16 Alt 12 U/L Normal 7-52 Laboratory test 05/12/2019 [facility] C Reactive 6.48 mg/L Normal < 8.01 finding [phone] Protein Troponin-I (TnI) 0.03 ng/mL <0.04 17 1 [facility] Severe Sepsis and Septic Shock Management Bundle Measure requires all lactic acids initially measuring >2.0 mmol/L be repeated. 2 Because ethnic data is not always [...] 5 Kidney failure <15 (or dialysis) 3 Troponin-I testing on Plasma Separator Tubes (PST) has a known false positive rate of 0.20-0.40%. All positive troponins reflex immediately to secondary confirmatory testing. Using the Mint 800 Access Immunoassay systems, the 99th percentile upper reference limit was demonstrated to be < 0.03 ng/mL. 4 Because ethnic data is not always [...] 5 Kidney failure <15 (or dialysis) 5 Critical Result [id number] Called to [id number] at: 17:29:14 by:[id number] Read back by:[id number] 6 Standard intensity warfarin therapeutic range: 2.0-3.0 High intensity warfarin therapeutic range: 2.5-3.5 7 Troponin-I testing on Plasma Separator Tubes (PST) has a known false positive rate of 0.20-0.40%. All positive troponins reflex immediately to secondary confirmatory testing. Using the Genetix Fusion DxI 800 Access Immunoassay systems, the 99th percentile upper reference limit was demonstrated to be < 0.03 ng/mL. 8 Environmental Programs Manager: [id number] Environmental Programs Manager: [id number] Environmental Programs Manager: [id number] 11 SEE RESULT BELOW Name: GABRIEL ZAVALA : [address]: Jamaal Garcia DO Acct: [id number] Unit: [id number] AGE: 54 Location: [facility] Re07/19/19 SEX: F Status: REG REF SPEC: [id number] KYRA: 07/19/[address]: Jamaal Garcia DO REQ: [id number] RECD: 07/19/19 STATUS: COMP _ SOURCE: URINE SPDESC: ORDERED: Urine Culture Procedure Result Reported Site Urine Culture Final 07/20/19- 1608 ML No growth of clinically significant organisms * ML - Main Lab . END OF REPORT DEPARTMENT OF PATHOLOGY, [address] [place] [address] Mg Ruff M.D. Director [facility] # [id number] 12 Because ethnic data is not always readily [...] 15-29 5 Kidney failure <15 (or dialysis) 13 Critical Result LACT:2.2 Called to [id number] at: 02:49:20 by:[id number] Read back by:TARI [facility] Severe Sepsis and Septic Shock Management Bundle Measure requires all lactic acids initially measuring >2.0 mmol/L be repeated. 14 Reference ranges based on room air. 15 Standard intensity warfarin therapeutic range: 2.0-3.0 High intensity warfarin therapeutic range: 2.5-3.5 16 Because ethnic data is not always [...] 5 Kidney failure <15 (or dialysis) 17 Troponin-I testing on Plasma Separator Tubes (PST) has a known false positive rate of 0.20-0.40%. All positive troponins reflex immediately to secondary confirmatory testing. Using the [employer] Fusion DxI 800 Access Immunoassay systems, the 99th percentile upper reference limit was demonstrated to be < 0.03 ng/mL. Procedures Date Code Description Status 10/10/2019 [id number] Diabetic Retinal Eye Exam Completed 10/06/2019 01409 X-Ray Elbow Three Views Completed 09/08/2019 [id number] Diabetic Foot Exam Completed 07/19/2019 73863 Electrocardiogram Complete Completed 02/15/2019 [id number] Mammogram Completed Medical Devices Description No Information Available Encounters Type Date Location Provider Dx Diagnosis Office Visit 10/12/2019 Main Office Jamaal Garcia, E11.69 Type 2 diabetes 11:45a D.O. mellitus with other specified complication M77.11 Lateral epicondylitis, right elbow M25.521 Pain in right elbow E11.65 Type 2 diabetes mellitus with hyperglycemia I10 Essential (primary) hypertension Z79.4 nursing home (current) use of insulin N18.3 Chronic kidney disease, stage 3 (moderate) I70.234 Athscl nikolski art of right leg w ulcer of heel and midfoot J44.9 Chronic obstructive pulmonary disease, unspecified F17.211 Nicotine dependence, cigarettes, in remission I50.32 Chronic diastolic (congestive) heart failure Z12.11 Encounter for screening for malignant neoplasm of colon Office Visit 10/06/2019 11:00a Main Office Brandy Benitez M77.11 Dot Geiger MD epicondylitis, right elbow Y93.G3 Activity, cooking and baking M25.521 Pain in right elbow Office Visit 09/08/2019 10:45a Main Office Jamaal Garcia, E11.65 Type 2 diabetes D.O. 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 mellitus with hyperglycemia I10 Essential (primary) hypertension Z79.4 nursing home (current) use of insulin M54.5 Low back pain M25.551 Pain in right hip M79.604 Pain in right leg N18.3 Chronic kidney disease, stage 3 (moderate) I70.234 Athscl nikolski art of right leg w ulcer of heel and midfoot J44.9 Chronic obstructive pulmonary disease, unspecified S90.812A Abrasion, left foot, initial encounter E11.628 Type 2 diabetes mellitus with other skin complications Office Visit 05/15/2019 10:00a Main Office Jamaal Garcia, E11.65 Type 2 diabetes D.O. 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 specified complication 10/12/2019 M77.11 Lateral epicondylitis, right elbow Jamaal Garcia D.O. 10/12/2019 M25.521 Pain in right elbow Jamaal Garcia D.OWilfredo 10/12/2019 E11.65 Type 2 diabetes mellitus with hyperglycemia Jamaal Garcia D.O. 10/12/2019 I10 Essential (primary) hypertension Jamaal Garcia D.O. 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 10/12/2019 N18.3 Chronic kidney disease, stage 3 (moderate) Jamaal Garcia D.O. 10/12/2019 I70.234 Atherosclerosis of nikolski arteries of right Jamaal Garcia D.O. leg with ulcerat 10/12/2019 J44.9 Chronic obstructive pulmonary disease, Jamaal Garcia D.O. unspecified 10/12/2019 F17.211 Nicotine dependence, cigarettes, in Jamaal Garcia D.O. remission 10/12/2019 I50.32 Chronic diastolic (congestive) heart failure Jamaal Garcia D.O. 10/12/2019 Z12.11 Encounter for screening for malignant Jamaal Garcia D.O. neoplasm of colon 10/06/2019 M77.11 Lateral epicondylitis, right elbow Brandy Benitez MD 10/06/2019 Y93.G3 Activity, cooking and baking Brandy Benitez MD 10/06/2019 M25.521 Pain in right elbow Brandy Benitez MD 09/08/2019 E11.65 Type 2 diabetes mellitus with hyperglycemia Jamaal Garcia D.O. 09/08/2019 I10 Essential (primary) hypertension Jamaal Garcia D.O. 09/08/2019 Z79.4 nursing home (current) use of insulin Jamaal Garcia D.O. 09/08/2019 N18.3 Chronic kidney disease, stage 3 (moderate) Jamaal Garcia D.O. 09/08/2019 I70.234 Atherosclerosis of nikolski arteries of right Jamaal Garcia D.O. leg with ulcerat 09/08/2019 J44.9 Chronic obstructive pulmonary disease, Jamaal Garcia D.O. unspecified 09/08/2019 F17.211 Nicotine dependence, cigarettes, in Jamaal Garcia D.O. remission 09/08/2019 E11.69 Type 2 diabetes mellitus with other Jamaal Garcia D.O. specified complication 09/08/2019 I50.32 Chronic diastolic (congestive) heart failure Jamaal Garcia D.O. 07/19/2019 E11.65 Type 2 diabetes mellitus with hyperglycemia Jamaal Garcia D.O. 07/19/2019 I10 Essential (primary) hypertension Jamaal Garcia, D.O. 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 07/19/2019 N18.3 Chronic kidney disease, stage 3 (moderate) Winston Garciaon, D.O. 07/19/2019 I70.234 Atherosclerosis of nikolski arteries of right Jamaal Garcia, D.O. leg with ulcerat 07/19/2019 J44.9 Chronic obstructive pulmonary disease, Jamaal Garcia, D.O. unspecified 07/19/2019 Z23 Encounter for immunization Jamaal Garcia D.O. 06/15/2019 E11.65 Type 2 diabetes mellitus with hyperglycemia Jamaal Garcia D.O. 06/15/2019 I10 Essential (primary) hypertension Jamaal Garcia, D.O. 06/15/2019 Z79.4 nursing home (current) use of insulin Jamaal Garcia D.O. 06/15/2019 M54.5 Low back pain Jamaal Garcia D.O. 06/15/2019 M25.551 Pain in right hip Jamaal Garcia D.O. 06/15/2019 M79.604 Pain in right leg Jamaal Garcia D.O. 06/15/2019 N18.3 Chronic kidney disease, stage 3 (moderate) Jamaal Garcia, D.O. 06/15/2019 I70.234 Atherosclerosis of [place] arteries of right Jamaal Garcia, D.O. leg with ulcerat 06/15/2019 J44.9 Chronic obstructive pulmonary disease, Jamaal Garcia, D.O. unspecified 06/15/2019 S90.812A Abrasion, left foot, initial encounter Jamaal Garcia D.O. 06/15/2019 E11.628 Type 2 diabetes mellitus with other skin Jamaal Garcia D.O. complications 05/15/2019 E11.65 Type 2 diabetes mellitus with hyperglycemia Jamaal Garcia , D.O. 05/15/2019 I10 Essential (primary) hypertension Jamaal Garcia D.O. 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 05/15/2019 M54.5 Low back pain Jamaal Garcia D.O. 05/15/2019 N18.3 Chronic kidney disease, stage 3 (moderate) Jamaal Garcia D.O. 05/15/2019 I70.234 Atherosclerosis of [place] arteries of right Jamaal Garcia D.O. leg with ulcerat 05/15/2019 J44.9 Chronic obstructive pulmonary disease, Jamaal Garcia D.O. unspecified 05/15/2019 I50.23 Acute on chronic systolic (congestive) heart Jamaal Garcia D.O. failure Plan of Treatment Future Appointment(s):11/13/2019 10:00 am - Jamaal Garcia D.O. at Main Cvbopu0410/12/2019 - Jamaal Garcia D.O.E11.69 Type 2 diabetes mellitus with other specified complicationNew Medication:Novolog Flexpen 100 Unit/ML - 20 units before dinnerFollow up:1 month DM Please bring in home fingerstick zgskeuosE39.11 Lateral epicondylitis, right yswfhY26.521 Pain in right fejkzZ32.65 Type 2 diabetes mellitus with szvzzdkxcouaqF45 Essential (primary) wkecrhrpivhwG72.4 termite control representative (current) use of hwdahlvB15.3 Chronic kidney disease , stage 3 (moderate)I70.234 Atherosclerosis of [place] arteries of right leg with rwelurrE80.9 Chronic obstructive pulmonary disease, uivblrrvpwmQ30.211 Nicotine dependence, cigarettes, in wqugabrdyA18.32 Chronic diastolic ( congestive) heart mcrlilpX67.11 Encounter for screening for malignant neoplasm of colonReferral:[facility], [facility] Goals 10/12/2019 - Jamaal Garcia D.O.E11.65 Type 2 diabetes mellitus with hyperglycemiaHemoglobin A1C (average glucose) < 7.0 - this is checked every 3 months. Avoid/limit carbohydrates: foods like Potatoes, wheat (bread,pasta, cookies,crackers,pretzles,dough), Rice, corn, and sugar limit sweetened beverages. Check eyes yearly with a dialated exam with an stab setter and driller Check fordiabetic kidney disease yearly with urine microalbumin test Check your feet by looking at all sidesdaily; once a year at least have them checked by a doctor. Functional Status Description No Information Available Mental Status Description No Information Available Referrals Refer to Reason for Referral Status Appt Date [facility] consider alternative options for colon Created cancer screening without sedation. + fit test. Consult and Treat [address] [place] [address] [phone] [facility] left foot ulcer with scabbing in similar area Sent to prior foot ulcer. nonpainful Consult and Treat [address] [address] [phone] Femi Degroot MD right LE wound with abnormal ABIs Consult and Closed 01/[address]; [address] [place], [place] [address] [phone]
--- OUTSIDE RECORDS SUMMARY | 2019-10-27 21:50 | XMS REPORT | Continuity of Care Document ---
:1965 External Reference #:[id number] Author Name Brandy Benitez MD Address [address] [place] [address] Care Team Providers Name Role Phone HCP/LW on file Care Team Information Factory Machine Computer Operator Unavailable [facility], Care Team Information Factory Machine Computer Operator Cardiovascular Winifred Ahumada MD - Pulmonary Care Team Information Factory Machine Computer Operator Disease Femi Degroot MD - Vascular & Care Team Information Factory Machine Computer Operator [phone] Interventional Radiology [facility] - Wound Care Care Team Information Factory Machine Computer Operator Problems Active Problems Provider Date Type II [...] 1ppd-2ppd x 42 years. Smoking Status Reviewed: 09/08/19 Former Cigarette Smoker quit Jul 2017 1ppd-2ppd [...] SIG Qnty Indications Ordering Date Provider Novolog Mix 70/30 30u in in the morning 45ml E11.69 [facility], 09/08/2019 Prefilled Flexpen Clay Hinton (70-30)100Unit/ML Supn Albuterol Sulfate 1-2 puffs as directed Unknown 05/14/2019 HFA as needed 108(90Base) mcg/Act Aerosol Incruse Ellipta 1 puff once daily 30units J44.9 [facility], 05/14/2019 Clay Hinton 62.5mcg/Inh Aerosol Levemir Flextouch inject 90 units at 45ml E11.69 [facility], 05/02/2019 breakfast increase by Clay Hinton 100Unit/ML Solution 2 units every 3 days Pen-Inject if 3 day average Am fasting glucose is > [address] 4-drops in ears 30units L20.9 [facility], 04/13/2019 Oil every week for Clay Hinton excessive cerumen and dry ear canals as needed Jardiance Take 1 tablet by 90tabs E11.65 [facility], 02/01/2019 10mg mouth daily for Type Clay Hinton Tablets 2 diabetes Onetouch Delica use with diabetic 100units [facility], 01/30/2019 Lancets Fine 30G supplies five times a Clay Hinton day as directed 30G Misc BD Uf Mini Pen Use Up To 6 Times 400units [facility], 01/27/2019 Needle [id number] Daily as Directed For Clay Hinton Insulin Administration Onetouch Verio use 1-4 times daily 1units [facility], 01/27/2019 as directed Clay Hinton w/Device Kit Onetouch Verio test 1-4 daily as 200units E11.65 [facility], 01/27/2019 directed Clay Hinton Strips Aspirin Children's 1 by mouth daily Unknown 11/23/2018 81mg Tylenol give 2 tablets by Unknown 05/26/2018 325mg mouth a6yenxb as Tablets needed / otc Pantoprazole Sodium Take One Tablet By 60tabs Radha, 05/26/2018 Mouth Twice A Day Clay Hinton 40mg Tablets DR Clopidogrel 1 tablet by mouth 90tabs [facility], 11/04/2017 Bisulfate daily Clay Hinton 75mg Tablets Atorvastatin 1 by mouth every Unknown 08/20/2017 Calcium evening 80mg Tablets Docusate Sodium 1 cap by mouth twice Unknown 08/20/2017 a day as needed for 100mg Capsules constipation Furosemide take two tablets by 180tabs [facility], 08/20/2017 20mg mouth every day Clay Hinton Tablets Carvedilol Take One Tablet By [facility] 08/05/2017 3.125mg Mouth Twice A Day Clay Hinton Tablets Lancets use as directed for 200units E11.65 [facility], 05/20/2017 [place]e diabetic testing Clay Hinton Safety Misc BD Pen or appropriate 400units [facility], 05/20/2017 Needle/Mini/Ultrafi needles for Clay Hinton ne/31G X 3/16" lantus/Novolog pen. 31G use up to 6/day, as X 5 mm Misc directed, for insulin administration Gabapentin 1 by mouth daily [facility]caps [facility]mg Clay Hinton Capsules Losartan Potassium Take [...] CPT Code Status Date Vaccine Lot # [id number] Given 07/19/2019 Influenza Virus Vaccine, Quadrivalent, Split, [id number] Preservative Free 98858 Given 09/01/2018 Influenza Virus Vaccine, Quadrivalent, Split, [id number] Preservative Free 43863 Given 07/08/2017 Influenza Virus Vaccine, Quadrivalent, Split, [id number] Preservative Free 14769 Given 01/18/2017 Adacel or Boostrix, TDaP [id number] 26714 Given 11/30/2016 Influenza Virus Vaccine, Quadrivalent, Split, Im Use U-Pneum Given 01/18/2009 Pneumococcal,Unspecified Vital Signs Date Vital Result Comment 10/06/2019 11:22am BP Systolic 120 mmHg BP Diastolic 74 mmHg Body Temperature 97.5 F Weight 195.50 lb w/boots 09/08/2019 11:21am BP Systolic 68 mmHg BP Diastolic 40 mmHg Weight 195.50 lb Results Test Acquired Date Facility Test Result H/L Range Note Xray 10/06/2019 [facility] X-Ray, <pending> Elbow, Complete, Min 3 Views, RT Laboratory test 09/15/2019 [facility] Lactic Acid 1.5 mmol/L Normal 0.5-2.0 1 finding [phone] Comp Metabolic 09/15/2019 [facility] Sodium 135 mmol/L Normal 135- 145 Panel [phone] Potassium 4.2 mmol/L Normal 3.5-5.0 Chloride 102 [...] 51.5 >60 2 Laboratory test finding 09/15/2019 [facility] Lipase 12 U/L Normal 11.0-82.0 [phone] C Reactive Protein 22.47 mg/L High <8.01 CBC Auto Diff 09/15/2019 [facility] White Blood 11.5 10^3/uL High 3.5 -10.8 [phone] Count Red Blood Count 4.67 10^6/uL Normal [...] Blood Cells % 0.0 Urine Microalbumin 09/08/2019 [facility] Ur Microalbumin 26.1 mg/L Random [phone] (mg/L) Urine Creatinine 26.09 mg/dL Urine Microalbumin/Creatinine 100.0 High <31 Laboratory test 09/08/2019 In House Hemoglobin A1c 11.8 finding Laboratory test 08/20/2019 [facility] Troponin-I (TnI) 0.03 ng/mL < 0.04 3 finding [phone] Comp Metabolic 08/20/2019 [facility] Sodium 130 mmol/L Low 135-145 Panel [phone] Potassium 4.8 mmol/L Normal 3.5-5.0 Chloride 96 [...] mg/dL Critical high 70-100 5 Inr/Protime 08/20/2019 [facility] Inr 0.88 Normal 0.82-1.09 6 [phone] CBC Auto Diff 08/20/2019 [facility] White Blood 7.4 10^3/uL Normal 3.5-10.8 [phone] Count Red Blood Count 4.74 10^6/uL Normal [...] Red Blood Cells % 0.1 Laboratory 08/20/2019 [facility] Troponin-I (TnI) 0.02 <0.04 7 test finding [phone] ng/mL Laboratory 08/20/2019 [facility] Point of Care > 444 Critical 70-100 8 test finding [phone] Glucose mg/dL high Laboratory 08/20/2019 [facility] Glucose 495 High 70-100 test finding [phone] Confirmatory mg/dL Laboratory 08/20/2019 [facility] Point of Care 432 Critical 70-100 9 test finding [phone] Glucose mg/dL high Laboratory 08/20/2019 [facility] Point of Care 351 High 70-100 10 test finding [phone] Glucose mg/dL Laboratory 07/19/2019 [facility] Erythrocyte Sed 61 mm/Hr High 0-29 test finding [phone] Rate C Reactive Protein 18.39 mg/L High <8.01 Urine Culture And 07/19/2019 [facility] Urine Culture SEE RESULT 11 Sensitivities [phone] BELOW Urinalysis Profile 07/19/2019 [facility] Urine Color Yellow [phone] Urine Appearance Cloudy Urine Specific [place] 1.014 Normal 1.010-1.030 Urine pH 5.0 Normal [...] Present Abnormal Absent Comp Metabolic Panel 07/19/2019 [facility] Sodium 136 mmol/L Normal 135-145 [phone] Potassium 5.0 mmol/L Normal 3.5-5.0 Chloride 96 [...] 33.2 >60 12 CBC Auto Diff 07/19/2019 [facility] White Blood 9.8 10^3/uL Normal 3.5-10.8 [phone] Count Red Blood Count 4.44 10^6/uL Normal [...] Hemoglobin A1c 11.9 finding Laboratory test 05/13/2019 [facility] Lactic Acid 2.2 Critical high 0.5-2 13 finding [phone] mmol/L .0 Arterial Blood 05/13/2019 [facility] PH Arterial 7.36 Normal 7.35- Gas [phone] 7.45 Pco2 Arterial 30 mmHg Low 35-45 Po2 Arterial 149 mmHg High 80-100 O2 Saturation Arterial TNP % 94.0-98.0 Base Excess Arterial -7.3 mmol/L Low -2.0-2.0 14 Hco3 Arterial 19.3 mmol/L Normal 19-31 Inr/Protime 05/12/2019 [facility] Inr 0.96 Normal 0.82-1.09 15 [phone] Laboratory test 05/12/2019 [facility] Partial 25.5 Low 26.0-38.0 finding [phone] Thrombo Time seconds PTT B-Type Natriuretic Peptide BNP 354 pg/mL High <=100 CBC Auto Diff 05/12/2019 [facility] White Blood 13.2 10^3/uL High 3.5 -10.8 [phone] Count Red Blood Count 4.84 10^6/uL Normal [...] Cells % 0.1 Comp Metabolic Panel 05/12/2019 [facility] Sodium 141 mmol/L Normal 135-145 [phone] Potassium 3.5 mmol/L Normal 3.5-5.0 Chloride 110 [...] 12 U/L Normal 7-52 Laboratory test 05/12/2019 [facility] C Reactive 6.48 mg/L Normal < 8.01 finding [phone] Protein Troponin-I (TnI) 0.03 ng/mL <0.04 17 1 [facility] Severe Sepsis and Septic Shock Management [...] immediately to secondary confirmatory testing. Using the [employer] [facility] 800 Access Immunoassay systems, the 99th percentile [...] dialysis) 5 Critical Result [id number] Called to [id number] at: 17:29:14 by:[id number] Read back by:[id number] 6 Standard intensity warfarin therapeutic range: 2.0-3.0 High intensity warfarin therapeutic range: 2.5-3.5 7 Troponin-I testing on Plasma Separator Tubes (PST) has a known false positive rate of 0.20-0.40%. All positive troponins reflex immediately to secondary confirmatory testing. Using the [employer] DxI 800 Access Immunoassay systems, the 99th percentile upper reference limit was demonstrated to be < 0.03 ng/mL. 8 Freelance Recruiter: [id number] 9 Freelance Recruiter: [id number] 10 Freelance Recruiter: [id number] 11 SEE RESULT BELOW Name: GARBIEL ZAVALA : [address]: Jamaal Garcia DO Acct: [id number] Unit: [id number] AGE: 54 Location: [facility] Re07/19/19 SEX: F Status: REG REF SPEC: [id number] KYRA: 07/19/[address]: Jaamal Garcia DO REQ: [id number] RECD: 07/19/19 STATUS: COMP _ SOURCE: URINE SPDESC: ORDERED: Urine Culture Procedure Result Reported Site Urine Culture Final 07/20/19- 1608 ML No growth of clinically significant organisms * ML - Main Lab . END OF REPORT DEPARTMENT OF PATHOLOGY, [address] [place] [address] Mg Ruff M.D. Director [facility] # [id number] 12 Because ethnic data is not always [...] dialysis) 13 Critical Result LACT:2.2 Called to [id number] at: 02:49:20 by:[id number] Read back by:TARI [facility] Severe Sepsis and Septic Shock Management [...] immediately to secondary confirmatory testing. Using the [employer] DxI 800 Access Immunoassay systems, the 99th percentile upper reference limit was demonstrated to be < 0.03 ng/mL. Procedures Date Code Description Status 10/06/2019 52732 X-Ray Elbow Three Views Completed 09/08/2019 [id number] Diabetic Foot Exam Completed 07/19/2019 89245 Electrocardiogram Complete Completed 02/15/2019 [id number] Mammogram Completed Medical Devices Description No Information Available Encounters Type Date Location Provider Dx Diagnosis Office Visit 10/06/2019 Main Office Brandy Benitez, M77.11 Lateral epicondylitis, 11:00a right elbow Office Visit 09/08/2019 Main Office Jamaal Garcia, E11.65 Type 2 diabetes 10:45a D.O. 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 mellitus with hyperglycemia I10 Essential (primary) hypertension Z79.4 half-way (current) use of insulin N18.3 Chronic kidney disease, stage 3 (moderate) I70.234 Athscl [place] art of right leg w ulcer of heel and midfoot J44.9 Chronic obstructive pulmonary disease, unspecified Z23 Encounter for immunization Office Visit 06/15/2019 9:45a Main Office Jamaal Garcia, E11.65 Type 2 diabetes D.O. mellitus with hyperglycemia I10 Essential (primary) hypertension Z79.4 half-way (current) use of insulin M54.5 Low back pain M25.551 Pain in right hip M79.604 Pain in right leg N18.3 Chronic kidney disease, stage 3 (moderate) I70.234 Athscl [place] art of right leg w ulcer of heel and midfoot J44.9 Chronic obstructive pulmonary disease, unspecified S90.812A Abrasion, left foot, initial encounter E11.628 Type 2 diabetes mellitus with other skin complications Office Visit 05/15/2019 10:00a Main Office Jamaal Garcia, E11.65 Type 2 diabetes D.O. 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 09/08/2019 I10 Essential (primary) hypertension Jaamal Garcia D.O. 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 09/08/2019 N18.3 Chronic kidney disease, stage 3 (moderate) Jamaal Garcia D.O. 09/08/2019 I70.234 Atherosclerosis of [place] arteries of right Jamaal Garcia D.O. leg [...] D.O. 07/19/2019 I10 Essential (primary) hypertension Jamaal Garcia D.O. 07/19/2019 Z79.4 half-way (current) use of insulin Jamaal Garcia D.O. 07/19/2019 N18.3 Chronic kidney disease, stage 3 (moderate) Jamaal Garcia D.O. 07/19/2019 I70.234 Atherosclerosis of [place] arteries of right Jamaal Garcia D.O. leg with ulcerat 07/19/2019 J44.9 Chronic obstructive pulmonary disease, Jamaal Gacria D.O. unspecified 07/19/2019 Z23 Encounter for immunization Jamaal Garcia D.O. 06/15/2019 E11.65 Type 2 diabetes mellitus with hyperglycemia Jamaal Garcia D.O. 06/15/2019 I10 Essential (primary) hypertension Jamaal Garcia D.O. 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 06/15/2019 M54.5 Low back pain Jamaal Garcia D.O. 06/15/2019 M25.551 Pain in right hip Jamaal Garcia D.O. 06/15/2019 M79.604 Pain in right leg Jamaal Garcia D.O. 06/15/2019 N18.3 Chronic kidney disease, stage 3 (moderate) Jamaal Garcia D.O. 06/15/2019 I70.234 Atherosclerosis of [place] arteries of right Jamaal Garcia D.O. leg with ulcerat 06/15/2019 J44.9 Chronic obstructive pulmonary disease, Jamaal Garcia D.O. unspecified 06/15/2019 S90.812A Abrasion, left foot, initial encounter Jamaal Garcia D.O. 06/15/2019 E11.628 Type 2 diabetes mellitus with other skin Jamaal Garcia D.O. complications 05/15/2019 E11.65 Type 2 diabetes mellitus with hyperglycemia Jamaal Garcia , D.O. 05/15/2019 I10 Essential (primary) hypertension Jamaal Garcia, D.O. 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 05/15/2019 M54.5 Low back pain Winston Garciaon, D.O. 05/15/2019 N18.3 Chronic kidney disease, stage 3 (moderate) Jamaal Garcia, D.O. 05/15/2019 I70.234 Atherosclerosis of [place] arteries of right Jamaal Garcia, D.O. leg with ulcerat 05/15/2019 J44.9 Chronic obstructive pulmonary disease, Jamaal Garcia, D.O. unspecified 05/15/2019 I50.23 Acute on chronic systolic (congestive) heart Jamaal Garcia D.O. failure 04/13/2019 M54.5 Low back pain Jamaal Garcia, D.O. 04/13/2019 I10 Essential (primary) hypertension Jamaal Garcia, D.O. 04/13/2019 E11.65 Type 2 diabetes mellitus with hyperglycemia Jamaal Garcia , D.O. 04/13/2019 Z79.4 half-way (current) use of insulin Jamaal Garcia, D.O. 04/13/2019 N18.3 Chronic kidney disease, stage 3 (moderate) Winston Garciaon, D.O. 04/13/2019 I70.234 Atherosclerosis of [place] arteries of right Jamaal Garcia, D.O. leg with ulcerat 04/13/2019 M79.604 Pain in right leg Jamaal Garcia D.O. 04/13/2019 M79.605 Pain in left leg Jamaal Garcia, D.O. 04/13/2019 L20.9 Atopic dermatitis, unspecified Jamaal Garcia, D.O. Plan of Treatment Future Appointment(s):10/12/2019 11:45 am - Jamaal Garcia D.O. at Main Bggbet0710/06/2019 - Brandy Benitez, MDM77.11 Lateral epicondylitis, right elbowComments:likely lateral epicondylitis. Possible septic joint, but less likley. may take tylenol for pain as needed. Advised topical castor oil.twice daily to affected elbow to reduce inflammation, will avoid aggravating activities such as mixing and baking. f/u one week. Will get xray in office, will see if improves with rest and ibuprofen. will f/u with Dr. Garcia in one week as scheduled. f/u sooner ifneeded. If worsens over the weekend should go to ED for possible septic joint. Xray taken no fx per my read. sent to radiology. Functional Status Description No Information Available Mental Status Description No Information Available Referrals Refer to Dr Reason for Referral Status Appt Date [facility] left foot ulcer with scabbing in similar area Sent to prior foot ulcer. nonpainful Consult and Treat [address] [place] [address] [phone] Femi Degroot MD right LE wound with abnormal ABIs Consult and Closed 01/2019 Treat [facility] [address] [facility]; [address] [place], [place] [address] [phone]
--- OUTSIDE RECORDS SUMMARY | 2019-10-27 21:50 | XMS REPORT | Continuity of Care Document ---
:1965 External Reference #:[id number] Author Name Jamaal Garcia D.O. Address [address] [place] [address] Care Team Providers Name Role Phone HCP/LW on file Care Team Information Circuit Court Clerk Unavailable [facility] - [facility], Care Team Information Circuit Court Clerk [phone] Cardiovascular Winifred Ahumada MD - Pulmonary Care Team Information Circuit Court Clerk Disease Femi Degroot MD - Vascular & Care Team Information Circuit Court Clerk [phone] [facility] - Wound Care Care Team Information Circuit Court Clerk Problems Active Problems Provider Date Type II diabetes mellitus uncontrolled Latia Monsalve PA Onset: 01/26/2017 Essential hypertension Latia Monsalve PA Onset: 01/26/2017 Ulcer of heel Latia Monsalve PA Onset: 01/26/2017 Parietoalveolar pneumopathy Latia Monsalve PA Onset: 07/21/2017 Long-term current use of insulin Jamaal Garcia D.O. Onset: 10/07/2017 Type 2 diabetes mellitus with other specified Jamaal Garcia D.O. Onset: complication Social History Type Date Description Comments Sex Unknown Tobacco Use Start: Unknown End: Former Cigarette Smoker quit Jul 2017 Unknown 1ppd-2ppd x 42 years. Smoking Status Reviewed: 10/20/19 Former Cigarette Smoker quit Jul 2017 1ppd-2ppd [...] Medications SIG Qnty Indications Ordering Date Provider Neomycin/Polymyxin/ 1 drop 4 times a day 5ml [facility], 10/20/2019 Dexamethasone left eye for 5 days Clay Hinton [id number] Suspension Novolog Flexpen 20 units before 45ml E11.69 [facility], 10/12/2019 dinner Clay Hinton 100Unit/ML Solution Pen-Inject Novolog Mix 70/30 30u in in the morning 45ml E11.69 [facility], 09/08/2019 Prefilled Flexpen Clay Hinton (70-30)100Unit/ML Supn Albuterol Sulfate 1-2 puffs as directed Unknown 05/14/2019 HFA as needed 108(90Base) mcg/Act Aerosol Incruse Ellipta 1 puff once daily 30units J44.9 [facility], 05/14/2019 Clay Hinton 62.5mcg/Inh Aerosol Levemir Flextouch inject 90 units at 45ml E11.69 [facility], 05/02/2019 breakfast increase by Clay Hniton 100Unit/ML Solution 2 units every 3 days Pen-Inject if 3 day average Am fasting glucose is > [address] 4-drops in ears 30units L20.9 [facility], 04/13/2019 Oil every week for Clay Hinton excessive cerumen and dry ear canals as needed Jardiance Take 1 tablet by 90tabs E11.65 [facility], 02/01/2019 10mg mouth daily for Type Clay Hinton Tablets 2 diabetes Onetouch Delica use with diabetic 100units [facility], 01/30/2019 Lancets Fine 30G supplies five times a Karolyn HintonO. day as directed 30G Misc BD Uf Mini Pen Use Up To 6 Times 400units [facility], 01/27/2019 Needle [id number] Daily as Directed For Clay Hinton Insulin Administration Onetouch Verio use 1-4 times daily 1units [facility], 01/27/2019 as directed Clay Hinton w/Device Kit Onetouch Verio test 1-4 daily as 200units E11.65 [facility], 01/27/2019 directed Clay Hinton Strips Aspirin Children's 1 by mouth daily Unknown 11/23/2018 81mg Tylenol give 2 tablets by Unknown 05/26/2018 325mg mouth [id number] as Tablets needed / otc Pantoprazole Sodium Take One Tablet By 60tabs [facility], 05/26/2018 Mouth Twice A Day Clay Hinton 40mg Tablets DR Clopidogrel 1 tablet by mouth 90tabs [facility], 11/04/2017 Bisulfate daily Clay Hinton 75mg Tablets Atorvastatin 1 by mouth every Unknown 08/20/2017 Calcium evening 80mg Tablets Docusate Sodium 1 cap by mouth twice Unknown 08/20/2017 a day as needed for 100mg Capsules constipation Furosemide take two tablets by 180tabs [facility], 08/20/2017 20mg mouth every day Clay Hinton Tablets Carvedilol Take One Tablet By 180tabs [facility], 08/05/2017 3.125mg Mouth Twice A Day Clay Hitnon Tablets Lancets use as directed for 200units E11.65 [facility], 05/20/2017 Leandrae diabetic testing Clay Hinton Safety Misc BD Pen or appropriate 400units [facility], 05/20/2017 Needle/Mini/Ultrafi needles for Clay Hinton ne/31G X 3/16" lantus/Novolog pen. 31G use up to 6/day, as X 5 mm Misc directed, for insulin administration Gabapentin 1 by mouth daily 90caps [facility], 300mg Clay Hinton Capsules Losartan Potassium Take [...] CPT Code Status Date Vaccine Lot # [id number] Given 07/19/2019 Influenza Virus Vaccine, Quadrivalent, Split, [id number] Preservative Free [id number] Given 09/01/2018 Influenza Virus Vaccine, Quadrivalent, Split, [id number] Preservative Free 97606 Given 07/08/2017 Influenza Virus Vaccine, Quadrivalent, Split, [id number] Preservative Free 58475 Given 01/18/2017 Adacel or Boostrix, TDaP [id number] Given 11/30/2016 Influenza Virus Vaccine, Quadrivalent, Split, Im Use U-Pneum Given 01/18/2009 Pneumococcal,Unspecified Vital Signs Date Vital Result Comment 10/20/2019 12:18pm BP Systolic 116 mmHg BP Diastolic 70 mmHg Body Temperature 97.6 F 10/12/2019 12:24pm BP Systolic 118 mmHg BP Diastolic 70 mmHg Results Test Acquired Date Facility Test Result H/L Range Note Laboratory test 09/15/2019 [facility] Lactic Acid 1.5 mmol/L Normal 0.5-2.0 1 finding [phone] Comp Metabolic 09/15/2019 [facility] Sodium 135 mmol/L Normal 135- 145 Panel [phone] Potassium 4.2 mmol/L Normal 3.5-5.0 Chloride 102 [...] 51.5 >60 2 Laboratory test finding 09/15/2019 [facility] Lipase 12 U/L Normal 11.0-82.0 [phone] C Reactive Protein 22.47 mg/L High <8.01 CBC Auto Diff 09/15/2019 [facility] White Blood 11.5 10^3/uL High 3.5 -10.8 [phone] Count Red Blood Count 4.67 10^6/uL Normal [...] Blood Cells % 0.0 Urine Microalbumin 09/08/2019 [facility] Ur Microalbumin 26.1 mg/L Random [phone] (mg/L) Urine Creatinine 26.09 mg/dL Urine Microalbumin/Creatinine 100.0 High <31 Laboratory test 09/08/2019 In House Hemoglobin A1c 11.8 finding Laboratory test 08/20/2019 [facility] Troponin-I (TnI) 0.03 ng/mL < 0.04 3 finding [phone] Comp Metabolic 08/20/2019 [facility] Sodium 130 mmol/L Low 135-145 Panel [phone] Potassium 4.8 mmol/L Normal 3.5-5.0 Chloride 96 [...] mg/dL Critical high 70-100 5 Inr/Protime 08/20/2019 [facility] Inr 0.88 Normal 0.82-1.09 6 [phone] CBC Auto Diff 08/20/2019 [facility] White Blood 7.4 10^3/uL Normal 3.5-10.8 [phone] Count Red Blood Count 4.74 10^6/uL Normal [...] Red Blood Cells % 0.1 Laboratory 08/20/2019 [facility] Troponin-I (TnI) 0.02 <0.04 7 test finding [phone] ng/mL Laboratory 08/20/2019 [facility] Point of Care > 444 Critical 70-100 8 test finding [phone] Glucose mg/dL high Laboratory 08/20/2019 [facility] Glucose 495 High 70-100 test finding [phone] Confirmatory mg/dL Laboratory 08/20/2019 [facility] Point of Care 432 Critical 70-100 9 test finding [phone] Glucose mg/dL high Laboratory 08/20/2019 [facility] Point of Care 351 High 70-100 10 test finding [phone] Glucose mg/dL Laboratory 07/19/2019 [facility] Erythrocyte Sed 61 mm/Hr High 0-29 test finding [phone] Rate C Reactive Protein 18.39 mg/L High <8.01 Urine Culture And 07/19/2019 [facility] Urine Culture SEE RESULT 11 Sensitivities [phone] BELOW Urinalysis Profile 07/19/2019 [facility] Urine Color Yellow [phone] Urine Appearance Cloudy Urine Specific [place] 1.014 Normal 1.010-1.030 Urine pH 5.0 Normal [...] Present Abnormal Absent Comp Metabolic Panel 07/19/2019 [facility] Sodium 136 mmol/L Normal 135-145 [phone] Potassium 5.0 mmol/L Normal 3.5-5.0 Chloride 96 [...] 33.2 >60 12 CBC Auto Diff 07/19/2019 [facility] White Blood 9.8 10^3/uL Normal 3.5-10.8 [phone] Count Red Blood Count 4.44 10^6/uL Normal [...] Hemoglobin A1c 11.9 finding Laboratory test 05/13/2019 [facility] Lactic Acid 2.2 Critical high 0.5-2 13 finding [phone] mmol/L .0 Arterial Blood 05/13/2019 [facility] PH Arterial 7.36 Normal 7.35- Gas [phone] 7.45 Pco2 Arterial 30 mmHg Low 35-45 Po2 Arterial 149 mmHg High 80-100 O2 Saturation Arterial TNP % 94.0-98.0 Base Excess Arterial -7.3 mmol/L Low -2.0-2.0 14 Hco3 Arterial 19.3 mmol/L Normal 19-31 Inr/Protime 05/12/2019 [facility] Inr 0.96 Normal 0.82-1.09 15 [phone] Laboratory test 05/12/2019 [facility] Partial 25.5 Low 26.0-38.0 finding [phone] Thrombo Time seconds PTT B-Type Natriuretic Peptide BNP 354 pg/mL High <=100 CBC Auto Diff 05/12/2019 [facility] White Blood 13.2 10^3/uL High 3.5 -10.8 [phone] Count Red Blood Count 4.84 10^6/uL Normal [...] Cells % 0.1 Comp Metabolic Panel 05/12/2019 [facility] Sodium 141 mmol/L Normal 135-145 [phone] Potassium 3.5 mmol/L Normal 3.5-5.0 Chloride 110 [...] 12 U/L Normal 7-52 Laboratory test 05/12/2019 [facility] C Reactive 6.48 mg/L Normal < 8.01 finding [phone] Protein Troponin-I (TnI) 0.03 ng/mL <0.04 17 1 [facility] Severe Sepsis and Septic Shock Management Bundle [...] immediately to secondary confirmatory testing. Using the [employer]ip[employer] DxI 800 Access Immunoassay systems, the 99th [...] dialysis) 5 Critical Result GLU:617 Called to [id number] at: 17:29:14 by:[id number] Read back by:[id number] 6 Standard intensity warfarin therapeutic range: 2.0-3.0 High intensity warfarin therapeutic range: 2.5-3.5 7 Troponin-I testing on Plasma Separator Tubes (PST) has a known false positive rate of 0.20-0.40%. All positive troponins reflex immediately to secondary confirmatory testing. Using the [employer]omin[employer] DxI 800 Access Immunoassay systems, the 99th percentile upper reference limit was demonstrated to be < 0.03 ng/mL. 8 Recovery Manager: [id number] 9 Recovery Manager: [id number] 10 Recovery Manager: [id number] 11 SEE RESULT BELOW Name: GABRIEL ZAVALA : [address]: Jamaal Garcia DO Acct: [id number] Unit: [id number] AGE: 54 Location: LABDRY Re07/19/19 SEX: F Status: REG REF SPEC: [id number] KYRA: 07/19/19-[address]: Jamaal Garcia DO REQ: [id number] RECD: 07/19/19 STATUS: COMP _ SOURCE: URINE SPDESC: ORDERED: Urine Culture Procedure Result Reported Site Urine Culture Final 07/20/19- 1608 ML No growth of clinically significant organisms * ML - Main Lab . END OF REPORT DEPARTMENT OF PATHOLOGY, [address] [place] [address] Mg Ruff M.D. Director [facility] # [id number] 12 Because ethnic data is not always [...] dialysis) 13 Critical Result LACT:2.2 Called to [id number] at: 02:49:20 by:[id number] Read back by:[id number] [facility] Severe Sepsis and Septic Shock Management Bundle [...] immediately to secondary confirmatory testing. Using the [employer] DxI 800 Access Immunoassay systems, the 99th percentile upper reference limit was demonstrated to be < 0.03 ng/mL. Procedures Date Code Description Status 10/10/2019 980522618 Diabetic Retinal Eye Exam Completed 10/06/2019 19812 X-Ray Elbow Three Views Completed 09/08/2019 [id number] Diabetic Foot Exam Completed 07/19/2019 84796 Electrocardiogram Complete Completed 02/15/2019 [id number] Mammogram Completed Medical Devices Description No Information Available Encounters Type Date Location Provider Dx Diagnosis Office Visit 10/20/2019 Main Office Jamaal Garcia, E11.69 Type 2 diabetes 11:45a D.O. mellitus with other specified complication E11.65 Type 2 diabetes mellitus with hyperglycemia I10 Essential (primary) hypertension Z79.4 longterm (current) use of insulin N18.3 Chronic kidney disease, stage 3 (moderate) I70.234 [place]scl [place] art of right leg w ulcer of heel and midfoot H10.89 Other conjunctivitis Office Visit 10/12/2019 11:45a Main Office Jamaal Garcia, E11.69 Type 2 diabetes D.O. mellitus with other specified complication M77.11 Lateral epicondylitis, right elbow M25.521 Pain in right elbow E11.65 Type 2 diabetes mellitus with hyperglycemia I10 Essential (primary) hypertension Z79.4 intermediate accountant (current) use of insulin N18.3 Chronic kidney disease, stage 3 (moderate) I70.234 Athscl [place] art of right leg w ulcer of [...] with hyperglycemia I10 Essential (primary) hypertension Z79.4 longterm (current) use of insulin N18.3 Chronic kidney disease, stage 3 (moderate) I70.234 Athscl [place] art of right leg w ulcer of heel and midfoot J44.9 Chronic obstructive pulmonary disease, unspecified F17.211 Nicotine dependence, cigarettes, in remission E11.69 Type 2 diabetes mellitus with other specified complication I50.32 Chronic diastolic (congestive) heart failure Office Visit 07/19/2019 3:00p Main Office Jamaal Garcia, E11.65 Type 2 diabetes D.O. mellitus with hyperglycemia I10 Essential (primary) hypertension Z79.4 intermediate accountant (current) use of insulin N18.3 Chronic kidney disease, stage 3 (moderate) I70.234 Athscl [place] art of right leg w ulcer of heel and midfoot J44.9 Chronic obstructive pulmonary disease, unspecified Z23 Encounter for immunization Office Visit 06/15/2019 9:45a Main Office Jamaal Garcia, E11.65 Type 2 diabetes D.O. mellitus with hyperglycemia I10 Essential (primary) hypertension Z79.4 intermediate accountant (current) use of insulin M54.5 Low back pain M25.551 Pain in right hip M79.604 Pain in right leg N18.3 Chronic kidney disease, stage 3 (moderate) I70.234 Athscl [place] art of right leg w ulcer of heel and midfoot J44.9 Chronic obstructive pulmonary disease, unspecified S90.812A Abrasion, left foot, initial encounter E11.628 Type 2 diabetes mellitus with other skin complications Office Visit 05/15/2019 10:00a Main Office Jamaal Garcia, E11.65 Type 2 diabetes D.O. mellitus with hyperglycemia I10 Essential (primary) hypertension Z79.4 intermediate accountant (current) use of insulin M54.5 Low back pain N18.3 Chronic kidney disease, stage 3 (moderate) I70.234 Athscl [place] art of right leg w ulcer of heel and midfoot J44.9 Chronic obstructive pulmonary disease, unspecified I50.23 Acute on chronic systolic (congestive) heart failure Assessments Date Code Description Provider 10/20/2019 E11.69 Type 2 diabetes mellitus with other Sopchak, Jamaal, D.O. specified complication 10/20/2019 E11.65 Type 2 diabetes mellitus with hyperglycemia Jamaal Garcia D.O. 10/20/2019 I10 Essential (primary) hypertension Jamaal Garcia D.O. 10/20/2019 Z79.4 intermediate accountant (current) use of insulin Jamaal Garcia D.O. 10/20/2019 N18.3 Chronic kidney disease, stage 3 (moderate) Jamaal Garcia D.O. 10/20/2019 I70.234 Atherosclerosis of [place] arteries of right Jamaal Garcia D.O. leg with ulcerat 10/20/2019 H10.89 Other conjunctivitis Jamaal Garcia D.O. 10/12/2019 E11.69 Type 2 diabetes mellitus with other Jamaal Garcia D.O. specified complication 10/12/2019 M77.11 Lateral epicondylitis, right elbow Jamaal Garcia D.O. 10/12/2019 M25.521 Pain in right elbow Jamaal Garcia D.O. 10/12/2019 E11.65 Type 2 diabetes mellitus with hyperglycemia Jamaal Garcia D.O. 10/12/2019 I10 Essential (primary) hypertension Jamaal Garcia D.O. 10/12/2019 Z79.4 intermediate accountant (current) use of insulin Jamaal Garcia D.O. 10/12/2019 N18.3 Chronic kidney disease, stage 3 (moderate) Jamaal Garcia D.O. 10/12/2019 I70.234 Atherosclerosis of [place] arteries of right Jamaal Garcia D.O. leg with ulcerat 10/12/2019 J44.9 Chronic obstructive pulmonary disease, Jamaal Garcia D.O. unspecified 10/12/2019 F17.211 Nicotine dependence, cigarettes, in Jamaal Garcia D.O. remission 10/12/2019 I50.32 Chronic diastolic (congestive) heart failure Jamaal Garcia D.O. 10/12/2019 Z12.11 Encounter for screening for malignant Jamaal Garcia D.O. neoplasm of colon 10/06/2019 M77.11 Lateral epicondylitis, right elbow Emmanuel, Brandy L, MD 10/06/2019 Y93.G3 Activity, cooking and baking Brandy Beintez MD 10/06/2019 M25.521 Pain in right elbow Brandy Benitez MD 09/08/2019 E11.65 Type 2 diabetes mellitus with hyperglycemia Jamaal Garcia D.O. 09/08/2019 I10 Essential (primary) hypertension Jamaal Garcia D.O. 09/08/2019 Z79.4 intermediate accountant (current) use of insulin Jamaal Garcia D.O. 09/08/2019 N18.3 Chronic kidney disease, stage 3 (moderate) Jamaal Garcia D.O. 09/08/2019 I70.234 Atherosclerosis of [place] arteries of right Jamaal Garcia D.O. leg [...] (primary) hypertension Jamaal Garcia D.O. 07/19/2019 Z79.4 intermediate accountant (current) use of insulin Jamaal Garcia D.O. 07/19/2019 N18.3 Chronic kidney disease, stage 3 (moderate) Jamaal Garcia D.O. 07/19/2019 I70.234 Atherosclerosis of [place] arteries of right Jamaal Garcia D.O. leg with ulcerat 07/19/2019 J44.9 Chronic obstructive pulmonary disease, Jamaal Garcia D.O. unspecified 07/19/2019 Z23 Encounter for immunization Jamaal Garcia D.O. 06/15/2019 E11.65 Type 2 diabetes mellitus with hyperglycemia Jamaal Garcia D.O. 06/15/2019 I10 Essential (primary) hypertension Jamaal Garcia D.O. 06/15/2019 Z79.4 longterm (current) use of insulin Jamaal Garcia D.O. 06/15/2019 M54.5 Low back pain Jamaal Garcia D.O. 06/15/2019 M25.551 Pain in right hip Jamaal Garcia D.O. 06/15/2019 M79.604 Pain in right leg Jamaal Garcia D.O. 06/15/2019 N18.3 Chronic kidney disease, stage 3 (moderate) Jamaal Garcia D.O. 06/15/2019 I70.234 Atherosclerosis of [place] arteries of right Jamaal Garcia D.O. leg with ulcerat 06/15/2019 J44.9 Chronic obstructive pulmonary disease, Jamaal Garcia D.O. unspecified 06/15/2019 S90.812A Abrasion, left foot, initial encounter Jamaal Garcia D.O. 06/15/2019 E11.628 Type 2 diabetes mellitus with other skin Jamaal Garcia D.O. complications 05/15/2019 E11.65 Type 2 diabetes mellitus with hyperglycemia Jamaal Garcia D.O. 05/15/2019 I10 Essential (primary) hypertension Jamaal Garcia D.O. 05/15/2019 Z79.4 intermediate accountant (current) use of insulin Jamaal Garcia D.O. 05/15/2019 M54.5 Low back pain Jamaal Garcia D.O. 05/15/2019 N18.3 Chronic kidney disease, stage 3 (moderate) Jamaal Garcia D.O. 05/15/2019 I70.234 Atherosclerosis of [place] arteries of right Jamaal Garcia D.O. leg with ulcerat 05/15/2019 J44.9 Chronic obstructive pulmonary disease, Jamaal Garcia D.O. unspecified 05/15/2019 I50.23 Acute on chronic systolic (congestive) heart Jamaal Garcia D.O. failure Plan of Treatment Future Appointment(s):11/13/2019 10:00 am - Jamaal Garcia D.O. at Main Qtanpr7910/20/2019 - Jamaal Garcia D.O.E11.69 Type 2 diabetes mellitus with other specified complicationFollow up:as adqsxvknfB28.65 Type 2 diabetes mellitus with rumhxtbvoocccN36 Essential (primary) bkfuzrudkucwL56.4 longterm ( current) use of aecpslkK03.3 Chronic kidney disease, stage 3 (moderate)I70.234 Atherosclerosis of [place] arteries of right leg with ockvzxuV80.89 Other conjunctivitis Goals 10/20/2019 - Jamaal Garcia D.O.E11.69 Type 2 diabetes mellitus with other specified complicationHemoglobin A1C (average glucose) < 7.0 - this is checked every 3 months. Avoid/limit carbohydrates: foods like Potatoes, Wheat ( bread,pasta,cookies,crackers,pretzels,dough), Rice, [place], and Sugar Limit sweetened beverages. Check eyes yearly with a dialated exam with an hotel or motel receptionist Check fordiabetic kidney disease yearly with urine microalbumin test Check your feet by looking at all sidesdaily; once a year at least have them checked by a doctor. Functional Status Description No Information Available Mental Status Description No Information Available Referrals Refer to Reason for Referral Status Appt Date [facility] consider alternative options for colon Sent 2019 cancer screening without sedation. + fit test. Consult and Treat [address] [place] [address] [phone] [facility] left foot ulcer with scabbing in similar area Sent 00 to prior foot ulcer. nonpainful Consult and Treat [place] [address] [place] [address] [phone] Femi Degroot MD right LE wound with abnormal ABIs Consult and Closed 01/2019 Treat [facility] [address] [facility]; [address] [place] [id number] [phone]
--- OUTSIDE RECORDS SUMMARY | 2019-10-27 21:50 | XMS REPORT | Continuity of Care Document ---
:1965 External Reference #:[id number] Author Name Jamaal Garcia D.O. Address [address] [place] [address] Care Team Providers Name Role Phone HCP/LW on file Care Team Information Lead Etl Developer Unavailable [facility] - Spec/Tech, Care Team Information Lead Etl Developer Cardiovascular Winifred Ahumada MD - Pulmonary Care Team Information Lead Etl Developer Disease Femi Degroot MD - Vascular & Care Team Information Lead Etl Developer Interventional Radiology [facility] - Wound Care Care Team Information Lead Etl Developer [phone] Problems Active Problems Provider Date Type II [...] 30u in in the morning 45ml E11.69 [facility], 09/08/2019 Prefilled Flexpen Clay Hinton (70-30)100Unit/ML Supn Albuterol Sulfate 1-2 puffs as directed Unknown 05/14/2019 HFA as needed 108(90Base) mcg/Act Aerosol Incruse Ellipta 1 puff once daily 30units J44.9 [facility], 05/14/2019 Clay Hinton 62.5mcg/Inh Aerosol Levemir Flextouch inject 90 units at 45ml E11.69 [facility], 05/02/2019 breakfast increase by Clay Hinton 100Unit/ML Solution 2 units every 3 days Pen-Inject if 3 day average Am fasting glucose is > [address] 4-drops in ears 30units L20.9 [facility], 04/13/2019 Oil every week for Mo Hinton. excessive cerumen and dry ear canals as needed Jardiance Take 1 tablet by 90tabs E11.65 [facility], 02/01/2019 10mg mouth daily for Type Clay Hinton Tablets 2 diabetes Onetouch Delica use with diabetic 100units [facility], 01/30/2019 Lancets Fine 30G supplies five times a Karolyn HintonOWilfredo day as directed 30G Misc BD Uf Mini Pen Use Up To 6 Times 400units [facility], 01/27/2019 Needle [id number] Daily as Directed For Clay Hinton Insulin Administration Onetouch Verio use 1-4 times daily 1units [facility], 01/27/2019 as directed Clay Hinton w/Device Kit Onetouch Verio test 1-4 daily as 200units E11.65 [facility], 01/27/2019 directed Clay Hinton Strips Aspirin [facility] 1 by mouth daily Unknown 11/23/2018 81mg Tylenol give 2 tablets by Unknown 05/26/2018 325mg mouth [id number] as Tablets needed / otc Pantoprazole Sodium [facility] One [facility]t [facility], 05/26/2018 Mouth Twice A Day Clay Hinton 40mg Tablets DR Clopidogrel 1 tablet by mouth 90tabs [facility], 11/04/2017 Bisulfate daily Clay Hinton 75mg Tablets Atorvastatin 1 by mouth every Unknown 08/20/2017 Calcium evening 80mg Tablets Docusate Sodium 1 cap by mouth twice Unknown 08/20/2017 a day as needed for 100mg Capsules constipation Furosemide take two tablets by 180tabs [facility], 08/20/2017 20mg mouth every day Karolyn HintonOWilfredo Tablets Carvedilol Take One Tablet By 180tabs [facility], 08/05/2017 3.125mg Mouth Twice A Day Clay Hinton Tablets Lancets use as directed for 200units E11.65 [facility], 05/20/2017 [place] diabetic testing Clay Hinton Safety Misc BD Pen or appropriate 400units [facility], 05/20/2017 Needle/Mini/Ultrafi needles for Clay Hinton ne/31G X 3/16" lantus/Novolog pen. 31G use up to 6/day, as X 5 mm Misc directed, for insulin administration Gabapentin 1 by mouth daily 90caps [facility], 300mg Clay Hinton Capsules Losartan Potassium Take [...] CPT Code Status Date Vaccine Lot # [id number] Given 07/19/2019 Influenza Virus Vaccine, Quadrivalent, Split, [id number] Preservative Free 01180 Given 09/01/2018 Influenza Virus Vaccine, Quadrivalent, Split, [id number] Preservative Free 01637 Given 07/08/2017 Influenza Virus Vaccine, Quadrivalent, Split, [id number] Preservative Free 77772 Given 01/18/2017 Adacel or Boostrix, TDaP [id number] 20471 Given 11/30/2016 Influenza Virus Vaccine, Quadrivalent, Split, Im Use U-Pneum Given 01/18/2009 Pneumococcal,Unspecified Vital Signs Date Vital Result Comment 09/08/2019 11:21am BP Systolic 68 mmHg BP Diastolic 40 mmHg Weight 195.50 lb Results Test Acquired Facility Test Result H/L Range Note Date Laboratory 09/08/2019 In House Hemoglobin A1c 11.8 test finding Laboratory 08/20/2019 [facility] Point of Care 351 mg/dL High 70-100 1 test finding [phone] Glucose Laboratory 08/20/2019 [facility] Point of Care 432 mg/dL Critical 70- 100 2 test finding [phone] Glucose high Laboratory 08/20/2019 [facility] Glucose 495 mg/dL High 70-100 test finding [phone] Confirmatory Laboratory 08/20/2019 [facility] Point of Care > 444 Critical 70-100 3 test finding [phone] Glucose mg/dL high Laboratory 08/20/2019 [facility] Troponin-I 0.02 <0.04 4 test finding [phone] (TnI) ng/mL CBC Auto Diff 08/20/2019 [facility] White Blood 7.4 Normal 3.5-10.8 [phone] Count 10^3/uL Red Blood Count 4.74 10^6/uL Normal 3.70-4.87 [...] % Nucleated Red Blood Cells % 0.1 Inr/Protime 08/20/2019 [facility] Inr 0.88 Normal 0.82-1.09 5 [phone] Comp Metabolic Panel 08/20/2019 [facility] Sodium 130 mmol/L Low 135- 145 [phone] Potassium 4.8 mmol/L Normal 3.5-5.0 Chloride 96 [...] Egfr Non- 31.2 >60 Egfr 37.8 >60 6 Glucose 617 mg/dL Critical high 70-100 7 Laboratory test 08/20/2019 [facility] Troponin-I (TnI) 0.03 ng/mL < 0.04 8 finding [phone] Laboratory test 07/19/2019 [facility] Erythrocyte Sed 61 mm/Hr High 0 -29 finding [phone] Rate C Reactive Protein 18.39 mg/L High <8.01 Urine Culture And 07/19/2019 [facility] Urine Culture SEE RESULT BELOW 9 Sensitivities [phone] Urinalysis Profile 07/19/2019 [facility] Urine Color Yellow [phone] Urine Appearance Cloudy Urine Specific [place] 1.014 Normal 1.010-1.030 Urine pH 5.0 Normal [...] Present Abnormal Absent Comp Metabolic Panel 07/19/2019 [facility] Sodium 136 mmol/L Normal 135-145 [phone] Potassium 5.0 mmol/L Normal 3.5-5.0 Chloride 96 [...] Egfr Non- 27.4 >60 Egfr 33.2 >60 10 CBC Auto Diff 07/19/2019 [facility] White Blood 9.8 10^3/uL Normal 3.5-10.8 [phone] Count Red Blood Count 4.44 10^6/uL Normal [...] Hemoglobin A1c 11.9 finding Laboratory test 05/13/2019 [facility] Lactic Acid 2.2 Critical high 0.5-2 11 finding [phone] mmol/L .0 Arterial Blood 05/13/2019 [facility] PH Arterial 7.36 Normal 7.35- Gas [phone] 7.45 Pco2 Arterial 30 mmHg Low 35-45 Po2 Arterial 149 mmHg High 80-100 O2 Saturation Arterial TNP % 94.0-98.0 Base Excess Arterial -7.3 mmol/L Low -2.0-2.0 12 Hco3 Arterial 19.3 mmol/L Normal 19-31 Inr/Protime 05/12/2019 [facility] Inr 0.96 Normal 0.82-1.09 13 [phone] Laboratory test 05/12/2019 [facility] Partial 25.5 Low 26.0-38.0 finding [phone] Thrombo Time seconds PTT B-Type Natriuretic Peptide BNP 354 pg/mL High <=100 CBC Auto Diff 05/12/2019 [facility] White Blood 13.2 10^3/uL High 3.5 -10.8 [phone] Count Red Blood Count 4.84 10^6/uL Normal [...] Cells % 0.1 Comp Metabolic Panel 05/12/2019 [facility] Sodium 141 mmol/L Normal 135-145 [phone] Potassium 3.5 mmol/L Normal 3.5-5.0 Chloride 110 [...] Egfr Non- 57.6 >60 Egfr 69.7 >60 14 Alt 12 U/L Normal 7-52 Laboratory test 05/12/2019 [facility] C Reactive 6.48 mg/L Normal < 8.01 finding [phone] Protein Troponin-I (TnI) 0.03 ng/mL <0.04 15 1 [place] Supervisor: [id number] [place] Supervisor: [id number] [place] Supervisor: [id number] 4 Troponin-I testing on Plasma Separator Tubes (PST) has a known false positive rate of 0.20-0.40%. All positive troponins reflex immediately to secondary confirmatory testing. Using the [employer] DxI 800 Access Immunoassay systems, the 99th percentile upper reference limit was demonstrated to be < 0.03 ng/mL. 5 Standard intensity warfarin therapeutic range: 2.0-3.0 High intensity warfarin therapeutic range: 2.5-3.5 6 Because ethnic data is not always readily [...] 15-29 5 Kidney failure <15 (or dialysis) 7 Critical Result GLU:617 Called to [id number] at: 17:29:14 by:[id number] Read back by:[id number] 8 Troponin-I testing on Plasma Separator Tubes (PST) has a known false positive rate of 0.20-0.40%. All positive troponins reflex immediately to secondary confirmatory testing. Using the [employer] DxI 800 Access Immunoassay systems, the 99th percentile upper reference limit was demonstrated to be < 0.03 ng/mL. 9 SEE RESULT BELOW Name: GABRIEL ZAVALA : [address]: Jamaal Garcia DO Acct: [id number] Unit: [id number] AGE: 54 Location: LABDRY Re07/19/19 SEX: F Status: REG REF SPEC: [id number] KYRA: 07/19/19-[address]: Jamaal Garcia DO REQ: [id number] RECD: 07/19/19 STATUS: COMP _ SOURCE: URINE SPDESC: ORDERED: Urine Culture Procedure Result Reported Site Urine Culture Final 07/20/19- 1608 ML No growth of clinically significant organisms * ML - Main Lab . END OF REPORT DEPARTMENT OF PATHOLOGY, [address] [place] [address] Mg Ruff M.D. Director [facility] # [id number] 10 Because ethnic data is not always [...] 5 Kidney failure <15 (or dialysis) 11 Critical Result LACT:2.2 Called to [id number] at: 02:49:20 by:[id number] Read back by:TARI [facility] Severe Sepsis and Septic Shock Management Bundle Measure requires all lactic acids initially measuring >2.0 mmol/L be repeated. 12 Reference ranges based on room air. 13 Standard intensity warfarin therapeutic range: 2.0-3.0 High intensity warfarin therapeutic range: 2.5-3.5 14 Because ethnic data is not always readily [...] 15-29 5 Kidney failure <15 (or dialysis) 15 Troponin-I testing on Plasma Separator Tubes (PST) has a known false positive rate of 0.20-0.40%. All positive troponins reflex immediately to secondary confirmatory testing. Using the [employer] DxI 800 Access Immunoassay systems, the 99th percentile upper reference limit was demonstrated to be < 0.03 ng/mL. Procedures Date Code Description Status 09/08/2019 [id number] Diabetic Foot Exam Completed 07/19/2019 95322 Electrocardiogram Complete Completed 02/15/2019 [id number] Mammogram Completed Medical Devices Description No Information Available Encounters Type Date Location Provider Dx Diagnosis Office Visit 09/08/2019 Main Office Jamaal Garcia, E11.65 Type 2 diabetes 10:45a D.O. 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 mellitus with hyperglycemia I10 Essential (primary) hypertension Z79.4 intermediate (current) use of insulin M54.5 Low back pain M25.551 Pain in right hip M79.604 Pain in right leg N18.3 Chronic kidney disease, stage 3 (moderate) I70.234 [place] [place] art of right leg w ulcer of heel and midfoot J44.9 Chronic obstructive pulmonary disease, unspecified S90.812A Abrasion, left foot, initial encounter E11.628 Type 2 diabetes mellitus with other skin complications Office Visit 05/15/2019 10:00a Main Office Jamaal Garcia, E11.65 Type 2 diabetes D.O. mellitus with hyperglycemia I10 Essential (primary) hypertension Z79.4 intermediate (current) use of insulin M54.5 Low back pain N18.3 Chronic kidney disease, stage 3 (moderate) I70.234 [employer] [place] art of right leg w ulcer of heel and midfoot J44.9 Chronic obstructive pulmonary disease, unspecified I50.23 Acute on chronic systolic (congestive) heart failure Office Visit 04/13/2019 10:30a Main Office Jamaal Garcia D.OWilfredo M54.5 Low back pain I10 Essential (primary) hypertension E11.65 Type 2 diabetes mellitus with hyperglycemia Z79.4 intermediate (current) use of insulin N18.3 Chronic kidney disease, stage 3 (moderate) I70.234 [employer] [place] art of right leg w ulcer of heel and midfoot M79.604 Pain in right leg M79.605 Pain in left leg L20.9 Atopic dermatitis, unspecified Assessments Date Code Description Provider 09/08/2019 E11.65 Type 2 diabetes mellitus with hyperglycemia Jamaal Garcia D.OWilfredo 09/08/2019 I10 Essential (primary) hypertension Jamaal Garcia D.O. 09/08/2019 Z79.4 intermediate (current) use of insulin Jamaal Garcia D.OWilfredo 09/08/2019 N18.3 Chronic kidney disease, stage 3 (moderate) Jamaal Garcia D.O. 09/08/2019 I70.234 Atherosclerosis of [place] arteries of right Jamaal Garcia D.O. leg [...] hypertension Jamaal Garcia D.O. 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 07/19/2019 N18.3 Chronic kidney disease, stage 3 (moderate) Jamaal Garcia D.O. 07/19/2019 I70.234 Atherosclerosis of [place] arteries of right Jamaal Garcia D.O. leg with ulcerat 07/19/2019 J44.9 Chronic obstructive pulmonary disease, Jamaal Garcia D.O. unspecified 07/19/2019 Z23 Encounter for immunization Jamaal Garcia D.O. 06/15/2019 E11.65 Type 2 diabetes mellitus with hyperglycemia Jamaal Garcia D.O. 06/15/2019 I10 Essential (primary) hypertension Jamaal Garcia D.O. 06/15/2019 Z79.4 intermediate (current) use of insulin Jamaal Garcia D.O. 06/15/2019 M54.5 Low back pain Jamaal Garcia D.O. 06/15/2019 M25.551 Pain in right hip Jamaal Garcia D.O. 06/15/2019 M79.604 Pain in right leg Jamaal Garcia D.O. 06/15/2019 N18.3 Chronic kidney disease, stage 3 (moderate) Jamaal Garcia D.O. 06/15/2019 I70.234 Atherosclerosis of [place] arteries of right Jamaal Garcia D.O. leg [...] hypertension Jamaal Garcia D.O. 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 05/15/2019 M54.5 Low back pain Jamaal Garcia D.O. 05/15/2019 N18.3 Chronic kidney disease, stage 3 (moderate) Jamaal Garcia D.O. 05/15/2019 I70.234 Atherosclerosis of [place] arteries of right Jamaal Garcia D.O. leg with ulcerat 05/15/2019 J44.9 Chronic obstructive pulmonary disease, Jamaal Garcia D.O. unspecified 05/15/2019 I50.23 Acute on chronic systolic (congestive) heart Jamaal Garcia D.O. failure 04/13/2019 M54.5 Low back pain Jamaal Garcia D.O. 04/13/2019 I10 Essential (primary) hypertension Jamaal Garcia D.O. 04/13/2019 E11.65 Type 2 diabetes mellitus with hyperglycemia Jamaal Garcia D.O. 04/13/2019 Z79.4 intermediate (current) use of insulin Jamaal Garcia D.O. 04/13/2019 N18.3 Chronic kidney disease, stage 3 (moderate) Jamaal Garcia D.O. 04/13/2019 I70.234 Atherosclerosis of [place] arteries of right Jamaal Garcia D.O. leg with ulcerat 04/13/2019 M79.604 Pain in right leg Jamaal Garcia D.O. 04/13/2019 M79.605 Pain in left leg Jamaal Garcia D.O. 04/13/2019 L20.9 Atopic dermatitis, unspecified Jamaal Garcia D.OWilfredo Plan of Treatment Future Appointment(s):10/12/2019 11:45 am - Jamaal Garcia D.O. at Main Ankbwd8609/08/2019 - Jamaal Garcia D.O.E11.65 Type 2 diabetes mellitus with hyperglycemiaFollow up:1 month DM, COPD, CHF Bring in home fingerstick [id number] Essential (primary) amlfpeyrxppkT77.4 intermediate (current) use of pgvujqsJ05.3 Chronic kidney disease, stage 3 (moderate)I70.234 Atherosclerosis of [place] arteries of right leg with noedtyxB84.9 Chronic obstructive pulmonary disease, scfvqzfbnctN96.211 Nicotine dependence, cigarettes, in remissionNew Xrays:Low-dose computed tomography for lung cancer screening, Ordered: E11.69 Type 2 diabetes mellitus with other specified complicationNew Medication:Novolog Mix 70/30 Prefilled Flexpen (70-30)100 Unit/ML - 30u in in the iwtmvdaM56.32 Chronic diastolic (congestive) heart failure Goals 09/08/2019 - Jamaal Garcia D.O.E11.65 Type 2 diabetes mellitus with hyperglycemiaBarriers to tight control of your diabetes include intense sweet cravings irregularly. Today's A1c: 11.8 Hemoglobin A1C (average glucose) < 7.0 - this is checked every 3 months. Avoid/limit carbohydrates: foods like Potatoes, wheat (bread,pasta,cookies,crackers,pretzles,dough), Rice, corn, and sugar Limit sweetened beverages. Check eyes yearly with a dialated exam with an complaint clerk Check for diabetic kidney disease yearly with urine microalbumin test Check your feet by looking at all sides daily; once a year at least have them checked by a doctor.I50.32 Chronic diastolic (congestive) heart failurePlease continue your Low sodium diet Monitor weights daily Make all regular Cardiology appointments Contact office if weight increases of over 3 pounds in a day For chest pain or shortness of breath, go to the ER Barriers include difficulty with food preparation and avoidance of high sodium foods. Functional Status Description No Information Available Mental Status Description No Information Available Referrals Refer to Reason for Referral Status Appt Date [facility] left foot ulcer with scabbing in similar area Sent 00/ to prior foot ulcer. nonpainful Consult and Treat [place] [address] [place] [address] [phone] Femi Degroot MD right LE wound with abnormal ABIs Consult and Closed 01/2019 Treat [facility] [address] [facility]; [address] [place], [place] [id number] [phone]
--- OUTSIDE RECORDS SUMMARY | 2019-10-27 21:50 | XMS REPORT | Continuity of Care Document ---
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 Medicine Problems Active Problems Provider Date Old myocardial infarction Tomas Grimaldo DO [facility] Onset: 02/18/2017 Atherosclerosis of blackfeet arteries of Kingsley Shaw MD, [facility], Onset: right leg with ulceration of heel and FSCAI midfoot Atherosclerosis of blackfeet arteries of Kingsley Shaw MD, [facility], Onset: left leg with ulceration of other part FSCAI of foot Chronic obstructive lung disease Winifred Ahumada MD Onset: 05/19/2017 Encounter for screening for malignant Winifred Ahumada MD Onset: 05/19/2017 neoplasm of respiratory organs Nicotine dependence, cigarettes, with Winifred Ahumada MD Onset: 05/19/2017 other nicotine-induced disorders Chronic diastolic heart failure Kingsley Shaw MD, [facility], Onset: 07/01/2017 FSCAI Atherosclerosis of blackfeet arteries of Kingsley Shaw MD, [facility], Onset: 04/2017 right leg with ulceration of other FSCAI part of foot Chest pain MADDIE Schulz Onset: 05/26/2018 Gastroesophageal reflux disease MADDIE Schulz Onset: 05/26/2018 Type 2 diabetes mellitus MADDIE Schulz Onset: 05/26/2018 Long-term current use of insulin MADDIE Schulz Onset: 05/26/2018 Hyperlipidemia MADDIE Schulz Onset: 05/26/2018 Intermittent claudication due to Femi Degroot M.D. Onset: 06/28/2019 atherosclerosis of blackfeet artery of limb Atherosclerosis of arteries of the Femi Degroot M.D. Onset: 06/28/2019 extremities Social History Type Date Description Comments Sex Unknown Tobacco Use Start: Unknown Former Cigarette Smoker quit in Aug 2017 End: Unknown Smoking Status Reviewed: 09/05/19 Former Cigarette Smoker quit in Aug 2017 ETOH Use Occasionally consumes alcohol Recreational Drug Use Denies Drug Use Tobacco Use Start: Unknown Patient is a former quit 07/2017 End: Unknown smoker Exercise Type/Frequency Exercises rarely walking as tolerated d/t lower back and lower extremity pain Allergies, Adverse Reactions, Alerts Active Allergies Reaction Severity Comments Date Zofran 02/11/2017 Levaquin Nausea and Vomiting 03/23/2017 Metformin Diarrhea 11/28/2018 Medications Active Medications SIG Qnty Indications Ordering Date Provider Losartan Potassium 1 by mouth every 90tabs I50.22 Tomas Grimaldo, 2018 25mg day DO FACC Tablets Nitroglycerin 1 sl q5mins x3 25tabs R07.9 Tomas Grimaldo, 07/21/2019 0.4mg as needed for DO FACC Tablets Sub chest pain Furosemide 1 by mouth every Tomas Grimaldo, 06/27/2019 40mg Tablets day DO FACC Jardiance 10mg by mouth 30tabs Hector Ramírez MD 12/07/2018 10mg Tablets daily Clopidogrel Bisulfate 1 by mouth every 90tabs I25.2 Tomas Grimaldo, 11/04 day starting DO FACC 75mg Tablets Wednesday November 08, 2017 Atorvastatin Calcium 1 by mouth every 90tabs E78.5 Tomas Grimaldo, 2016 80mg day DO FACC Tablets Albuterol Sulfate HFA every 4 hours as Unknown needed 108(90Base) mcg/Act Aerosol Incruse Ellipta inhale one puff Unknown by mouth every 62.5mcg/Inh Aerosol day Levemir Flextouch 52 units every Unknown morning 100Unit/ML Solution Pen-Inject Pantoprazole Sodium 1 by mouth every Unknown 40mg day Solution Rec Acetaminophen ER 1 by mouth twice Unknown 650mg a day prn Tablets ER Tums 2 as needed for Unknown 500mg Chewtabs acid stomach Carvedilol 1 by mouth twice Unknown 3.125mg a day Tablets Stool Softener take 1 tab by 120caps Tomas Grimaldo, 100mg mouth 2 times a DO [facility] Capsules day as needed Humalog 15 units with Unknown 100Unit/ML meals. Solution Cartridge Aspir-81 1 by mouth every Unknown 81mg Tablets DR day Gabapentin 1 by mouth once Unknown 300mg Capsules a day, as needed History Medications Losartan Potassium 1 by mouth every I50.22 Tomas Grimaldo, 04/20/2019 - 50mg day DO [facility] 07/21/2019 Tablets Furosemide Take 2 by mouth Tomas Grimaldo, 04/12/2019 - 20mg Tablets every day DO [facility] 06/28/2019 Medications Administered in Office Medication SIG Qnty Indications Ordering Provider Date Inj, Regadenoson, 0.1 MG Tomas Grimaldo, DO [facility] 08/30/2019 Injection Technetium TC 99M Tomas Grimaldo, DO [facility] 08/30/2019 Tetrofosmin, Per Unit Dose Up To 40 Millicuries Injection Technetium TC 99M Tomas Grimaldo, DO [facility] 08/30/2019 Tetrofosmin, Per Unit Dose Up To 40 Millicuries Injection Inj, Regadenoson, 0.1 MG Tomas Grimaldo, DO [facility] 04/25/2018 Injection Technetium TC 99M Tomas Grimaldo, DO [facility] 04/25/2018 Tetrofosmin, Per Unit Dose Up To 40 Millicuries Injection Inj, Regadenoson, 0.1 MG Tomas Grimaldo, DO [facility] 03/31/2017 Injection Technetium TC 99M Tomas Grimaldo, DO [facility] 03/31/2017 Tetrofosmin, Per Unit Dose Up To 40 Millicuries Injection Immunizations Description No Information Available Vital Signs Date Vital Result Comment 09/05/2019 10:28am Height 63 inches 5'3" Weight 194.00 lb with shoes Heart Rate 73 /min BP Systolic Sitting 100 mmHg LA BP Diastolic Sitting 66 mmHg LA BP Systolic Standing 96 mmHg LA BP Diastolic Standing 62 mmHg LA BMI (Body Mass Index) 34.4 kg/m2 Ejection Fraction 40% Echo 08/29/19 07/21/2019 10:01am Height 63 inches 5'3" Weight 193.00 lb with shoes BP Systolic Sitting 92 mmHg Lue reg cuff BP Diastolic Sitting 60 mmHg Lue reg cuff BP Systolic Standing 92 mmHg Lue reg cuff BP Diastolic Standing 66 mmHg Lue reg cuff Respiratory Rate 12 /min BMI (Body Mass Index) 34.2 kg/m2 Ejection Fraction 40% ECHO 10/10/2018 Results Test Acquired Date Facility Test Result H/L Range Note Order 04/20/2019 [facility] In-House EKG <pending> Procedures Date Code Description Status 08/30/2019 62721 Stress Test Completed 08/30/2019 54917 Myocardial Perfusion Imaging Tomographic (Spect) Completed Multiple Studies 08/29/2019 67494 ECHO Transthoracic, Real-Time 2D With Doppler And Color Completed Flow 07/21/2019 43921 EKG Tracing & Interpretation Completed 04/20/2019 42922 EKG Tracing & Interpretation Completed 04/04/2019 54833 Removal Devitalization Tissue Wound Less Than Equal 20 Completed Square CM 10/13/2013 [id number] Mammogram Completed Medical Devices Description No Information Available Encounters Type Date Location Provider Dx Diagnosis Office Visit 07/21/2019 [facility] Tomas Grimaldo, I95.9 Hypotension, 10:00a Of [facility] DO FACC unspecified R07.9 Chest pain, unspecified I50.40 Unsp combined systolic and diastolic (congestive) hrt fail I73.9 Peripheral vascular disease, unspecified E11.69 Type 2 diabetes mellitus with other specified complication I10 Essential (primary) hypertension E78.5 Hyperlipidemia, unspecified F17.201 Nicotine dependence, unspecified, in remission I45.19 Other right bundle-branch block N18.9 Chronic kidney disease, unspecified I63.9 Cerebral infarction, unspecified J44.9 Chronic obstructive pulmonary disease, unspecified Office Visit 06/28/2019 11:15a [facility] Femi GWilfredo I70.223 [facility] Nichelle Degroot arteries of extrm w rest pain, bilateral legs I70.213 Athscl blackfeet arteries of extrm w intrmt sandi, bi legs Office Visit 05/14/2019 8:36a [facility] Ileana Yeung, I50.23 Acute on chronic Assoc,pc N.P. systolic Hospitalists (congestive) heart failure J44.1 Chronic obstructive pulmonary disease w (acute) exacerbation E11.9 Type 2 diabetes mellitus without complications Office Visit 05/13/2019 8:36a [facility] Edelmira R06.02 Shortness of Assoc,pc Maulik, PAKorin breath Hospitalists R00.0 Tachycardia, unspecified I50.9 Heart failure, unspecified Office Visit 04/20/2019 4:40p [facility] Tomas S. I70.213 Athscl blackfeet Of Equipment Cleaner And Tester Grimaldo, DO arteries of FACC extrm w intrmt sandi, bi legs I45.19 Other right bundle-branch block I25.2 Old myocardial infarction Z95.1 Presence of aortocoronary bypass graft Z95.2 Presence of prosthetic heart valve E11.22 Type 2 diabetes mellitus w diabetic chronic kidney disease I13.0 Hyp hrt & chr kdny dis w hrt fail and stg 1-4/unsp chr kdny N18.9 Chronic kidney disease, unspecified I50.40 Unsp combined systolic and diastolic (congestive) hrt fail E78.5 Hyperlipidemia, unspecified F17.211 Nicotine dependence, cigarettes, in remission R94.31 Abnormal electrocardiogram [ECG] [EKG] I50.9 Heart failure, unspecified Office Visit 04/11/2019 9:00a [facility] Uri Woody L97.528 Non-prs chronic [facility] [place] Nichelle Buchanan ulcer oth prt left foot with oth severity E11.621 Type 2 diabetes mellitus with foot ulcer I70.234 Athscl blackfeet art of right leg w ulcer of heel and midfoot I70.213 Athscl blackfeet arteries of extrm w intrmt sandi, bi legs Z86.73 Prsnl hx of TIA (TIA), and cereb infrc w/o resid deficits Office Visit 04/04/2019 10:00a Wound Care Uri Woody L97.521 Non-prs chronic [facility] [place] Nichelle Buchanan ulcer oth prt l foot limited to brkdwn skin E11.621 Type 2 diabetes mellitus with foot ulcer I70.234 Athscl blackfeet art of right leg w ulcer of heel and midfoot I70.213 Athscl blackfeet arteries of extrm w intrmt sandi, bi legs Z86.73 Prsnl hx of TIA (TIA), and cereb infrc w/o resid deficits Assessments Date Code Description Provider 09/05/2019 I50.40 Unspecified combined systolic Tomas S. Grimaldo, DO FACC (congestive) and diastolic (congestive) heart failure 09/05/2019 E11.69 Type 2 diabetes mellitus with other Tomas S. Grimaldo, DO FACC specified complication 09/05/2019 I73.9 Peripheral vascular disease, unspecified Tomas S. Grimaldo, DO [facility]ACC 09/05/2019 I10 Essential (primary) hypertension Tomas S. Grimaldo, DO FACC 09/05/2019 E78.5 Hyperlipidemia, unspecified Tomas S. Grimaldo, DO [facility] 09/05/2019 F17.201 Nicotine dependence, unspecified, in Tomas S. Grimaldo, DO FACC remission 09/05/2019 I45.19 Other right bundle-branch block Tomas S. Grimaldo, DO [facility] 08/30/2019 R07.9 Chest pain, unspecified Tomas S. Grimaldo, DO [facility] 08/29/2019 I95.9 Hypotension, unspecified Ica ECHO Schedule 07/21/2019 I95.9 Hypotension, unspecified Tomas S. Grimaldo, DO [facility] 07/21/2019 R07.9 Chest pain, unspecified Tomas S. Grimaldo, DO [facility] 07/21/2019 I50.40 Unspecified combined systolic Tomas S. Grimaldo, DO FACC (congestive) and diastolic (congestive) heart failure 07/21/2019 I73.9 Peripheral vascular disease, unspecified Tomas S. Grimaldo, DO FACC 07/21/2019 E11.69 Type 2 diabetes mellitus with other Tomas S. Grimaldo, DO FACC specified complication 07/21/2019 I10 Essential (primary) hypertension Tomas S. Grimaldo, DO FACC 07/21/2019 E78.5 Hyperlipidemia, unspecified Tomas S. Grimaldo, DO [facility] 07/21/2019 F17.201 Nicotine dependence, unspecified, in Tomas S. Grimaldo, DO FACC remission 07/21/2019 I45.19 Other right bundle-branch block Tomas S. Grimaldo, DO [facility] 07/21/2019 N18.9 Chronic kidney disease, unspecified Tomas S. Grimaldo, DO [facility] 07/21/2019 I63.9 Cerebral infarction, unspecified Tomas Grimaldo, DO [facility] 07/21/2019 J44.9 Chronic obstructive pulmonary disease, Tomas Grimaldo, DO [facility] unspecified 06/28/2019 I70.223 Atherosclerosis of blackfeet arteries of Femi Degroot M.D. extremities with rest pain, bilateral legs 06/28/2019 I70.213 Atherosclerosis of blackfeet arteries of Femi Degroot M.D. extremities with intermittent claudication, bilateral legs 05/14/2019 I50.23 Acute on chronic systolic (congestive) Ileana Yeung, N.P. heart failure 05/14/2019 J44.1 Chronic obstructive pulmonary disease Ileana Yeung, N.P. with (acute) exacerbation 05/14/2019 E11.9 Type 2 diabetes mellitus without Ileana Yeung, N.P. complications 05/13/2019 R06.02 Shortness of breath Edelmira Willingham PA-C 05/13/2019 R00.0 Tachycardia, unspecified Edelmira Natalie'kristan, PA-C 05/13/2019 I50.9 Heart failure, unspecified Edelmira Natalie'kristan, PA-C 04/20/2019 I70.213 Atherosclerosis of blackfeet arteries of Tomas Grimaldo, DO [facility] extremities with inter 04/20/2019 I45.19 Other right bundle-branch block Tomas Grimaldo, DO [facility] 04/20/2019 I25.2 Old myocardial infarction Tomas Grimaldo, DO [facility] 04/20/2019 Z95.1 Presence of aortocoronary bypass graft Tomas Grimaldo, DO [facility] 04/20/2019 Z95.2 Presence of prosthetic heart valve Tomas Grimaldo, DO [facility] 04/20/2019 E11.22 Type 2 diabetes mellitus w diabetic Tomas Grimaldo, DO [facility] chronic kidney disease 04/20/2019 I13.0 Hyp hrt & chr kdny dis w hrt fail and stg Tomas Grimaldo DO [facility] 1-4/unsp chr kdny 04/20/2019 N18.9 Chronic kidney disease, unspecified Tomas Grimaldo, DO [facility] 04/20/2019 I50.40 Unspecified combined systolic Tomas Grimaldo, DO [facility] (congestive) and diastolic (co 04/20/2019 E78.5 Hyperlipidemia, unspecified Tomas Grimaldo, DO [facility] 04/20/2019 F17.211 Nicotine dependence, cigarettes, in Tomas Grimaldo, DO [facility] remission 04/20/2019 R94.31 Abnormal electrocardiogram [ECG] [EKG] Tomas Sernaparis DO FACC 04/20/2019 I50.9 Heart failure, unspecified Tomas Grimaldo, DO [facility] 04/11/2019 L97.528 Non-prs chronic ulcer oth prt left foot Uri Buchanan M.D. with oth severity 04/11/2019 E11.621 Type 2 diabetes mellitus with foot ulcer Uri Buchanan M.D. 04/11/2019 I70.234 Atherosclerosis of blackfeet arteries of Uri Buchanan M.D. right leg with ulcerat 04/11/2019 I70.213 Atherosclerosis of blackfeet arteries of Uri Buchanan M.D. extremities with inter 04/11/2019 Z86.73 Personal history of transient ischemic Uri Buchanan M.D. attack (TIA), and cer 04/04/2019 L97.521 Non-prs chronic ulcer oth prt l foot Uri Buchanan M.D. limited to brkdwn skin 04/04/2019 E11.621 Type 2 diabetes mellitus with foot ulcer Uri Buchanan M.D. 04/04/2019 I70.234 Atherosclerosis of blackfeet arteries of Uri Buchanan M.D. right leg with ulcerat 04/04/2019 I70.213 Atherosclerosis of blackfeet arteries of Uri Buchanan M.D. extremities with inter 04/04/2019 Z86.73 Personal history of transient ischemic Uri Buchanan M.D. attack (TIA), and cer Plan of Treatment Future Appointment(s):03/05/2020 10:20 am - Tomas Grimaldo DO FACC at [facility]10/10/2019 10:40 am - Hector Ramírez MD at [facility]09/05/2019 - Tomas Grimaldo DO FACCI50.40 Unspecified combined systolic (congestive) and diastolic (congestive) heart failureFollow up :6 eshoobC26.69 Type 2 diabetes mellitus with other specified [id number] Peripheral vascular disease, [id number] Essential (primary) gaoqmakcssbxG14.5 Hyperlipidemia, ndtvhlbyjmlB70.201 Nicotine dependence, unspecified, in bhhdrqfghF25.19 Other right bundle-branch block Functional Status Description No Information Available Mental Status Description No Information Available Referrals Description No Information Available
--- NOTE | 2019-10-27 22:42 | ED ---
HPI Chest Pain - HPI Summary HPI Summary: Patient complains of sudden onset chest pain 1 hour. Chest pain described as sternal, sharp, burning, intermittent and short burst that run resolved completely, at worst 5/10. No active chest pain here in the ED. Associated aching in bilateral arms and nausea. States no change in chronic exertional SOB. Denies fever, cough, sore throat, V/D, abdominal pain, change in urine, change in BM. Patient took antacids which did not help. Medical history includes COPD, bypass surgery in 2017, CHF, DM, CAD, ulcer, mitral valve prosthesis. Stress test nondiagnostic. TTE October 2018 ejection fraction 40-45%. Cardiac catheter in October 2018 positive for occlusion of proximal LAD and left circumflex with plan for medical management. Patient states she is compliant with medications including Plavix. - History of Current Complaint Chief Complaint: EDChestWallPain Time Seen by Provider: 10/27/19 22:39 Hx Obtained From: Patient Onset/Duration: Started Minutes Ago Timing: Intermittent, Lasting Seconds Initial Severity: Moderate Current Severity: Moderate Pain Intensity: 5 Pain Scale Used: 0-10 Numeric Chest Pain Location: Mid Sternal Chest Pain Radiates: Yes Chest Pain Radiates To:: Arm Character: Burning, Sharp/Stabbing Aggravating Factor(s): Nothing Alleviating Factor(s): Spontaneous Resolution Associated Signs and Symptoms: Positive: Chest Pain - Additional Pertinent History Primary Care Physician: [id number] - Allergy/Home Medications Allergies/Adverse Reactions: Allergies Allergy/AdvReac Type Severity Reaction Status Date / Time levofloxacin [From Levaquin] Allergy Nausea And Verified 05/13/19 02:31 Vomiting ondansetron Allergy Hives Verified 05/13/19 02:31 [From Zofran (as hydrochloride)] Home Medications: Home Medications Insulin NPH Hum/Reg Insulin Hm [Novolin 70-30 Flexpen] 100 unit SUBCUT BEDTIME 10/27/19 [History Confirmed 10/27/19] PMH/Surg Hx/FS Hx/Imm Hx Endocrine/Hematology History: Reports: Hx Anticoagulant Therapy, Hx Diabetes, Hx Anemia Cardiovascular History: Reports: Hx Angina, Hx Angioplasty, Hx Congestive Heart Failure, Hx Coronary Artery Disease, Hx Hypercholesterolemia, Hx Hypertension, Hx Myocardial Infarction, Hx Peripheral Vascular Disease, Hx Valvular Heart Disease - mitral valve replacement, Other Cardiovascular Problems/Disorders - cardiomyopathy EF 40%, bipass, PVD Denies: Hx Pacemaker/ICD Respiratory History: Reports: Hx Chronic Obstructive Pulmonary Disease (COPD) GI History: Reports: Hx Gastroesophageal Reflux Disease Musculoskeletal History: Reports: Hx Arthritis - general Sensory History: Reports: Hx Contacts or Glasses Denies: Hx Hearing Aid Opthamlomology History: Reports: Hx Contacts or Glasses Neurological History: Reports: Hx Transient Ischemic Attacks (TIA) - 2014 Denies: Hx Headaches Psychiatric History: Reports: Hx Anxiety, Hx Depression Denies: Hx Panic Disorder - Surgical History Surgery Procedure, Year, and Place: Complete Hysterectomy 2005; [facility]; HEART CATH- 4 CARDIAC STENTS, CABG, M[facility] Infectious Disease History: No Infectious Disease History: Denies: Traveled Outside the [place] in Last 30 Days - Family History Known Family History: Positive: Cardiac Disease - Social History Alcohol Use: Occasionally Hx Substance Use: No Substance Use Type: Reports: None Hx Tobacco Use: Yes Smoking Status (MU): Former Smoker Type: Cigarettes Length of Time of Smoking/Using Tobacco: since she was 11 until 1 year ago Have You Smoked in the Last Year: No Review of Systems Constitutional: Negative Eyes: Negative ENT: Negative Positive: Chest Pain Positive: Shortness Of Breath Positive: Nausea Genitourinary: Negative Musculoskeletal: Negative Skin: Negative Neurological: Negative Psychological: Normal All Other Systems Reviewed And Are Negative: Yes Physical Exam - Summary Physical Exam Summary: Chest pain not reproducible. Lung sounds clear to auscultation bilaterally. Triage Information Reviewed: Yes Vital Signs On Initial Exam: Initial Vitals Temp Pulse Resp BP Pulse Ox 98.0 F 105 20 199/101 93 10/27/19 21:39 10/27/19 21:39 10/27/19 21:39 10/27/19 21:39 10/27/19 21:39 Vital Signs Reviewed: Yes Appearance: Positive: Well-Appearing Skin: Positive: Warm Head/Face: Positive: Normal Head/Face Inspection Eyes: Positive: Normal Neck: Positive: Supple Respiratory/Lung Sounds: Positive: Clear to Auscultation Cardiovascular: Positive: Normal Abdomen Description: Positive: Nontender Musculoskeletal: Positive: Normal Neurological: Positive: Normal Psychiatric: Positive: Normal AVPU Assessment: Alert - Delfino Coma Scale Best Eye Response: 4 - Spontaneous Best Motor Response: 6 - Obeys Commands Best Verbal Response: 5 - Oriented Coma Scale Total: 15 Procedures - Sedation Patient Received Moderate/Deep Sedation with Procedure: No Diagnostics - Vital Signs Vital Signs Temp Pulse Resp BP Pulse Ox 10/27/19 22:27 98.2 F 10/27/19 22:26 101 94 10/27/19 22:25 103 15 162/97 95 10/27/19 21:39 98.0 F 105 20 199/101 93 - Laboratory Result Diagrams: 10/27/19 22:57 10/27/19 22:57 Lab Statement: Any lab studies that have been ordered have been reviewed, and results considered in the medical decision making process. Chest Pain Course/Dx - Course Course Of Treatment: Patient complains of sudden onset chest pain 1 hour. Chest pain described as sternal, sharp, burning, intermittent and short burst that run resolved completely, at worst 5/10. No active chest pain here in the ED. Associated aching in bilateral arms and nausea. States no change in chronic exertional SOB. Denies fever, cough, sore throat, V/D, abdominal pain, change in urine, change in BM. Patient took antacids which did not help. Medical history includes COPD, bypass surgery in 2017, CHF, DM, CAD, ulcer, mitral valve prosthesis. Stress test nondiagnostic. TTE October 2018 ejection fraction 40-45%. Cardiac catheter in October 2018 positive for occlusion of proximal LAD and left circumflex with plan for medical management. Patient states she is compliant with medications including Plavix. Mildly tachycardic with heart rate between 101 and 122. O2 sats on room air between 93 -95%. BP intermittently elevated. Serial troponins 0.04, 0.11. Alkaline phosphatase 201, history of same. Creatinine 1.61 history of same. TSH 0.09 no prior history of same. Free T3 4.5. Free T4 1.4. Admitted to hospitalist for further evaluation. - Diagnoses Provider Diagnoses: Hyperthyroidism, Elevated troponin, Chest pain Discharge ED - Sign-Out/Discharge Documenting (check all that apply): Patient Departure - Discharge Plan Condition: Fair Disposition: ADMITTED TO [facility] Referrals: Jamaal Garcia DO [Primary Care Provider] - - Billing Disposition and Condition Condition: FAIR Disposition: Admitted to [facility]
[2019-10-27 23:03] LABS: ABS Basophils 0.1 10^3/ul (0-0.2); ABS Eosinophils 0.2 10^3/ul (0-0.6); ABS Lymphocytes 1.3 10^3/ul (1.0-4.8); ABS Monocytes 0.4 10^3/ul (0-0.8); ABS Neutrophils 8.3 10^3/ul (1.5-7.7); Eosinophil % 1.7 %; Hematocrit 39 % (35-47); Hemoglobin 13.3 g/dL (12.0-16.0); Lymphocyte % 12.5 %; Mean Corpuscular HGB Conc 34 g/dL (31-36); Mean Corpuscular Hemoglobin 29 pg (27-31); Mean Corpuscular Volume 85 fL (80-97); Nucleated Red Blood Cells % 0.1; Platelet Count 246 10^3/uL (150-450); Red Blood Count 4.56 10^6 /uL (3.70-4.87); Red Cell Distribution Width 15 % (10-15); White Blood Count 10.2 10^3/uL (3.5-10.8)
[2019-10-27 23:20] LABS: ALT 12 U/L (7-52); AST 13 U/L (13-39); Albumin 3.8 g/dL (3.2-5.2); Albumin/Globulin Ratio 1.1 (1-3); Alkaline Phosphatase 201 U/L (34-104); Anion Gap 11 mmol/L (2-11); BUN/Creatinine Ratio 24.8 (8-20); Blood Urea Nitrogen 40 mg/dL (6-24); C Reactive Protein 18.58 mg/L (<8.01); CO2 Carbon Dioxide 24 mmol/L (22-32); Calcium 9.3 mg/dL (8.6-10.3); Chloride 98 mmol/L (101-111); EGFR African American 40.2 (>60); EGFR Non-African American 33.2 (>60); Globulin 3.6 g/dL (2-4); Glucose 414 mg/dL (70-100); Magnesium 2.2 mg/dL (1.9-2.7); Potassium 3.9 mmol/L (3.5-5.0); Sodium 133 mmol/L (135-145); Total Protein 7.4 g/dL (6.4-8.9)
[2019-10-27 23:34] LABS: Troponin I 0.04 ng/mL (<0.03)
[2019-10-27 23:49] LABS: TSH (Thyroid Stimulating Horm) 0.09 mcIU/mL (0.34-5.60)
[2019-10-28 01:40] LABS: Free T4 1.41 ng/dL (0.61-1.12)
[2019-10-28 02:19] LABS: Troponin I 0.11 ng/mL (<0.03)
[2019-10-28 02:43] LABS: Urine Appearance Clear; Urine Bilirubin Negative (Negative); Urine Blood Negative (Negative); Urine Color Yellow; Urine Glucose 3+(>=500 mg/dL) (Negative); Urine Ketones Negative (Negative); Urine Nitrite Negative (Negative); Urine Protein 1+(30 mg/dL) (Negative); Urine Specific Gravity 1.013 (1.010-1.030); Urine Urobilinogen Negative (Negative)
[2019-10-28 02:44] LABS: Urine Bacteria Absent (Absent); Urine Red Blood Cell Trace(0-2/hpf) (Absent); Urine Squamous Epithelial Cell Present (Absent); Urine White Blood Cell 1+(6-10/hpf) (Absent)
[2019-10-28] MEDS ORDERED: Albuterol HFA INHALER* 8 gm MDI INH PRN (03:56)
[2019-10-28] MEDS ORDERED: Docusate CAP* 100 MG PO PRN (03:56)
[2019-10-28] MEDS ORDERED: Ticagrelor* 90 MG TAB PO ONE (04:03)
[2019-10-28] MEDS ORDERED: Aspirin 81 mg CHEW TAB* 81 MG TAB.CHEW PO ONE (04:10)
--- NOTE | 2019-10-28 05:29 | HP ---
History of Present Illness - History of Present Illness Reason for Visit: Chest pain History of Present Illness: April Chavez is a 54 y/o female with history of COPD, CAD s/p stenting and CABG, HLD, insulin dependent DM with DM neuropathy, HFrEF (EF in Oct 40-45%), GERD; presented to hospital for acute onset of chest pain. She was having dinner with family at "[employer]" when this pain started, she described as sternal , sharp,burning, intermittent, lasted about 1 hours, resolved on its own, worse 5/10. It came together with bilateral arm numbness. She was chest pain free after coming to hospital. She had multiple episodes of heart attack in the past but never had similar episodes. She had recent cath in Oct which shows patent bypass, and currently on aspirin, plavix, 80mg atorvastatin, she stated she took them faithfully. she was limited in ambulation due to her heart and lung condition, but she denied palpitation worsening exertional dyspnea, swelling, SOB, PND. She denied any thyroid problems in the past, she denied heat intolerance, change in energy level, weakness, eye symptoms. She did have thyroid nodule left side in the past requiring FNA, but she stated negative results. - Past Medical History Past Medical History: 1. CAD s/p stenting and CABG 2 GERD 3. HLD 4. HFrEF, echo in Oct EF 40-45% 5. COPD 6. Insulin dependent diabetes with neuropathy - Past Surgical History Past Surgical History: 1. CABG 2. Porcine mitral valve repacement 3. Cholecystectomy 4. Two 5. Four stents 6. peripheral artery, right lower extremity stent - Past Family History Past Family History: Father at age 75 due to rectal cancer, he also had coronary artery disease s/p CABG. Mother decreased at age 72 due to complications of aspiration pneumonia. She also had history of CAD s/p CABG and lung CA. His grandfather also had lung cancer. - Past Social History Past Social History: Patient is on diability. She is and living with her , and having 2 children. Former smoker, quit 2 years ago, was smoking 2-3 packs per day for 42 years. Denied alcohol use and illicit drug use. Her , Bailee Chavez, is her health care proxy. She wants full code, but emphasized no prolonged suffering. Medications: Home Medications Medication Instructions Recorded Confirmed Type Atorvastatin* [Lipitor 80 MG*] 80 mg PO QPM 05/24/17 10/27/19 History Clopidogrel TAB* [Plavix TAB*] 75 mg PO DAILY 05/24/17 10/27/19 History Furosemide TAB* [Lasix TAB*] 40 mg PO DAILY 05/24/17 10/27/19 History Gabapentin CAP(*) [Neurontin 300 300 mg PO DAILY 05/24/17 10/27/19 History CAP(*)] Acetaminophen TAB* [Tylenol TAB*] 650 mg PO Q4H PRN tab 05/26/18 10/27/19 Rx Docusate CAP* [Colace Cap*] 100 mg PO BID PRN cap 05/26/18 10/27/19 Rx Losartan TAB* [Cozaar TAB*] 50 mg PO QAM 05/13/19 10/27/19 History Albuterol HFA INHALER* [Ventolin 1 - 2 puff INH Q6H PRN 09/15/19 10/27/19 History HFA Inhaler*] Aspirin 81 mg CHEW TAB* [Aspirin 81 mg PO DAILY 09/15/19 10/27/19 History Low Dose TAB*] Carvedilol TAB* [Coreg TAB*] 3.125 mg PO BID 09/15/19 10/27/19 History Empaglifozin (NF) [Jardiance (Nf)] 10 mg PO DAILY 09/15/19 10/27/19 History Insulin Detemir [Levemir Flextouch] 90 units SUBCUT QAM 09/15/19 10/27/19 History Insulin NPH Hum/Reg Insulin Hm 30 unit SUBCUT QAM 09/15/19 10/27/19 History [Novolin 70-30 Flexpen] Pantoprazole TAB * [Protonix TAB*] 40 mg PO BID 09/15/19 10/27/19 History Umeclidinium 62.5 MDI(NF) [Incruse 1 puff INH DAILY 09/15/19 10/27/19 History ELLIPTA MDI (NF)] Insulin NPH Hum/Reg Insulin Hm 100 unit SUBCUT BEDTIME 10/27/19 10/27/19 History [Novolin 70-30 Flexpen] Allergies/Adverse Reactions: Allergies Allergy/AdvReac Type Severity Reaction Status Date / Time levofloxacin [From Levuin] Allergy Nausea And Verified 05/13/19 02:31 Vomiting ondansetron Allergy Hives Verified 05/13/19 02:31 [From Zofran (as hydrochloride)] Review of Systems - Review of Systems Constitutional: Negative: Fever, Chills, Sweats, Weakness, Malaise, Other Eyes: Negative: Pain, Vision Change, Conjunctivae Inflammation, Eyelid Inflammation, Redness, Other ENT: Negative: Ear Pain, Ear Discharge, Nose Pain, Nose Discharge, Nose Congestion, Mouth Pain, Mouth Swelling, Throat Pain, Throat Swelling, Other Respiratory: Negative: Cough, Dry, Shortness of Breath, Hemoptysis, SOB with Excertion, Pleuritic Pain, Sputum, Wheezing Cardiovascular: Positive: Chest Pain. Negative: Palpitations, Orthopnea, Paroxysmal Noc. Dyspnea, Edema, Light Headedness, Other Gastrointestinal: Negative: Nausea, Vomiting, Abdominal Pain, Diarrhea, Constipation, Melena, Hematochezia, Other Genitourinary: Negative: Dysuria, Frequency, Incontinence, Hematuria, Retention , Other Musculoskeletal: Negative: Neck Pain, Shoulder Pain, Arm Pain, Back Pain, Hand Pain, Leg Pain, Foot Pain, Other Skin: Negative: Rash, Lesions, Steffen, Bruising, Other Neurological: Negative: Weakness, Numbness, Incoordination, Change in Speech, Confusion, Seizures, Other Exam Vital Signs: Vital Signs (72 hours) 10/27/19 10/27/19 10/27/19 21:39 22:25 22:26 Temperature 98.0 F Pulse Rate 105 103 101 Respiratory 20 15 Rate Blood Pressure 199/101 162/97 (mmHg) O2 Sat by Pulse 93 95 94 Oximetry 10/27/19 22:27 Temperature 98.2 F Pulse Rate Respiratory Rate Blood Pressure (mmHg) O2 Sat by Pulse Oximetry Exam: Appearance: Sitting up in a stretcher, Not in acute distress Eyes: sclera anicteric, no conjunctival pallor, PERRLA ENT: pharynx not erythematous Respiratory: Clear to auscultation, no signs of respiratory distress Cardiovascular: Normal S1, S2. No murmur Abdomen: Soft, non tender Musculoskeletal: ROM full, strength full grossly Neurological: A&Ox3, mentation normal Extremity: no peripheral swelling. Psy: stable. Result Diagrams: 10/27/19 22:57 10/28/19 06:33 Additional Lab and Data: Trop: 0.04->0.11 BNP: 120 TSH: 0.09 , free T4 1.41 eGFR 33 EKG Data: EKG: sinus rhythm, RBBB, T wave insertion V1-V3 (new compared with 08/2019 EKG ) Assessment/Plan - Assessment/Plan Assessment: April Chavez is a 54 y/o female with history of COPD, CAD s/p stenting and CABG, HLD, insulin dependent DM with DM neuropathy, HFrEF (EF in Oct 40-45%), GERD; presented with chest pain, found to have increased trop with non ST elevation ischemic changes in EKG, as well as hyperthyroidism. It's very likely that her NSTEMI was precipitated by her hyperthyroidism in the setting of CAD and HFrEF. The cause of her hyperthyroidism is unclear at this moment, could be toxic nodule vs Graves disease. Plan: 1. NSTEMI - could be precipitated by hyperthyroidism, but cannot rule out plaque rupture - telemetry monitoring - Escalate to aspirin and Brilinta since this happens when she is on aspirin and plavix, load aspirin and brilinta - sc therpeutic lovenox - continue 80mg atorvastatin, will recheck lipid panel - continue carvedilol - cardiology consult tomorrow for cath, this may be limited by her kidney function, probably stress test and medical management 2. Hyperthyroidism - toxic nodule vs Graves disease - thyroid - consider endocrine consultation for further management 3. HFrEF -no signs of CHF exacerbation right now - monitor fluid status closely 4. DM - patient is not sure about her insulin dose - need to do med reconciliation - check Hba1c 5. COPD - resume old med. 6. DVT prophylaxis - no need as on therapeutic lovenox. Attestation Documenting Resident: Dianna Calvillo Supervising Physician: Spike Neal Attending/Supervising Physician Comment: CKD Stage IV Creatinine slightly worse compared to baseline however GFR within stage IV. Attestation: This service has been performed in part by a resident under the direction of a teaching physician.I, Spike Neal, performed the service, or was physically present during the critical, or sheth portions of the service, furnished by the resident. I participated in the management of the patient.
[2019-10-28] MEDS ORDERED: Enoxaparin(*) 80 MG/0.8 ML SYR SUBCUT SCH (06:00)
[2019-10-28 07:03] LABS: Anion Gap 12 mmol/L (2-11); BUN/Creatinine Ratio 25.9 (8-20); Blood Urea Nitrogen 38 mg/dL (6-24); CO2 Carbon Dioxide 23 mmol/L (22-32); Calcium 9.5 mg/dL (8.6-10.3); Chloride 98 mmol/L (101-111); Cholesterol 97 mg/dL; EGFR African American 44.7 (>60); EGFR Non-African American 36.9 (>60); Glucose 426 mg/dL (70-100); HDL Cholesterol 33.8 mg/dL; LDL Cholesterol 25 mg/dL; Potassium 3.9 mmol/L (3.5-5.0); Sodium 133 mmol/L (135-145); Triglycerides 193 mg/dL
[2019-10-28 07:09] LABS: Troponin I 0.36 ng/mL (<0.03)
[2019-10-28] MEDS: SPIRIVA Respimat* (tiotropium) 2.5 mcg/inh Inhaler INH SCH (08:19)
[2019-10-28] MEDS ORDERED: Empaglifozin (NF) 10 MG TABLET PO SCH (09:00)
[2019-10-28] MEDS ORDERED: Carvedilol TAB* 3.125 MG PO SCH (09:00)
[2019-10-28] MEDS ORDERED: Insulin ISOPH/REG 70/30 (*) 1 UNITS UNIT SUBCUT SCH ×2 (09:00→21:00)
[2019-10-28] MEDS ORDERED: Losartan TAB* 25 MG PO SCH (09:00)
[2019-10-28] MEDS ORDERED: Insulin GLARGINE(*) 1 UNITS UNIT SUBCUT SCH (09:00)
[2019-10-28] MEDS ORDERED: Potassium Chlor TAB* 20 MEQ TAB.ER PO ONE (09:34)
[2019-10-28 10:33] LABS: Glucose Confirmatory 423 mg/dL (70-100)
[2019-10-28] MEDS: Aspirin 81 mg CHEW TAB* 81 MG TAB.CHEW PO SCH (10:35)
[2019-10-28] MEDS: Gabapentin CAP(*) 300 MG PO SCH (10:35)
[2019-10-28] MEDS: Furosemide TAB* 40 MG PO SCH (10:36)
[2019-10-28] MEDS: Pantoprazole TAB * 40 MG TAB PO SCH ×2 (10:37→22:05)
[2019-10-28 11:35] LABS: Troponin I 0.36 ng/mL (<0.03)
[2019-10-28 12:53] LABS: Glucose Confirmatory 333 mg/dL (70-100)
[2019-10-28] MEDS ORDERED: Dextrose 50% VIAL 50 ml IV PUSH PRN (13:25)
[2019-10-28] MEDS ORDERED: Insulin LISPRO* 1 UNITS UNIT SUBCUT ONE (13:25)
--- NOTE | 2019-10-28 15:13 | PN ---
Subjective Date of Service: 10/28/19 Interval History: Brief update. Admitted this morning with concern for NSTEMI. Patient reports that her substernal chest pain has improved to mild but is still present. It is associated with mild SOB but no diaphoresis or palpitations. She is able to lie flat. Her blood glucose has been difficult to control throughout the day. A1c resulted 12.2%. Patient denies diaphoresis, recent weight loss, frequent bowel movements, or feeling hot. Objective Active Medications: Albuterol (Ventolin Hfa Inhaler*) 1 puff INH Q6H PRN PRN Reason: SHORTNESS OF BREATH Aspirin (Aspirin 81 Mg Chew Tab*) 81 mg PO DAILY [facility] Last Admin: 10/28/19 10:35 Dose: 81 mg Atorvastatin Calcium (Lipitor*) 80 mg PO QPM [facility] Carvedilol (Coreg Tab*) 6.25 mg PO BID [facility] Dextrose (Dextrose 50% Vial 50 Ml*) 25 ml IV PUSH .FOR FS < 60 - SS PRN PRN Reason: FS < 60 Empagliflozin (Jardiance (Nf)) 10 mg PO DAILY [facility] Last Admin: 10/28/19 10:41 Dose: Not Given Enoxaparin Sodium (Lovenox(*)) 90 mg SUBCUT Q12H [facility] Furosemide (Lasix Tab*) 40 mg PO DAILY [facility] Last Admin: 10/28/19 10:36 Dose: 40 mg Gabapentin (Neurontin Cap(*)) 300 mg PO DAILY [facility] Last Admin: 10/28/19 10:35 Dose: 300 mg Insulin Glargine (Lantus(*)) 72 units SUBCUT QAM [facility] Last Admin: 10/28/19 10:38 Dose: 72 unit Insulin Human Lispro (Humalog*) 0 units SUBCUT ACHS [facility]; Protocol Losartan Potassium (Cozaar Tab*) 25 mg PO QAM [facility] Pantoprazole Sodium (Protonix Tab*) 40 mg PO BID [facility] Last Admin: 10/28/19 10:37 Dose: 40 mg Ticagrelor (Brilinta*) 90 mg PO BID [facility] Tiotropium [place] (Spiriva Respimat 2.5 Mcg) 2 puff INH DAILY [facility] Last Admin: 10/28/19 08:19 Dose: Not Given Vital Signs - 8 hr 10/28/19 10/28/19 10/28/19 07:15 08:00 10:35 Temperature 97.9 F Pulse Rate 90 Respiratory 18 18 18 Rate Blood Pressure 123/70 (mmHg) O2 Sat by Pulse 98 Oximetry 10/28/19 11:15 Temperature 98 F Pulse Rate 81 Respiratory 20 Rate Blood Pressure 109/63 (mmHg) O2 Sat by Pulse 100 Oximetry Oxygen Devices in Use Now: None Appearance: tired-appearing, no acute distress, speaking in full sentences Eyes: No Scleral Icterus Ears/Nose/Mouth/Throat: Clear Oropharnyx, Mucous Membranes Moist Respiratory: Symmetrical Chest Expansion and Respiratory Effort, Clear to Auscultation Cardiovascular: NL Sounds; No Murmurs; No JVD, RRR Abdominal: NL Sounds; No Tenderness; No Distention, No Hepatosplenomegaly Extremities: No Edema Skin: - - warm and dry Neurological: Alert and Oriented x 3 Result Diagrams: 10/27/19 22:57 10/28/19 06:33 Assess/Plan/Problems-Billing Assessment: 54W with CAD s/p stenting and CABG, uncontrolled DM2 on insulin, HFrEF 40-45%, COPD, GERD, presents with acute chest pain, found with elevated troponin. - Patient Problems (1) Elevated troponin Comment: Concerning in the context of chest pain. - pending evaluation by cardiology - cont home aspirin - clopidogrel switched to ticagrelor - on therapeutic lovenox (2) Low TSH level Comment: Without symptoms of hyperthyroid. - pending consult with Dr. Ramírez - NM uptake scan cannot be performed until likely Wednesday the (3) CAD (coronary artery disease) Comment: Cardiac cath 10/2018 with unchanged coronary artery disease. - Continue DAPT, statin, beta-maria victoria (4) Type II diabetes mellitus Comment: HgbA1c 12.2%. Poor control on home doses of insulin in the hospital. - cont long-acting with glargine 72u daily - stop home 70/30 and start high-dose sliding scale - endocrine consulted for thyroid - switch to Consistent carb diet. (5) COPD (chronic obstructive pulmonary disease) Comment: - substitute home umeclidinium with tiotropium - albuterol prn (6) Chronic systolic CHF (congestive heart failure) Comment: No evidence of exacerbation. EF 40-45%. - cont home furosemide - continue losartan, carvedilol (7) Creatinine elevation Comment: Elevation has been progressive, likely CKD from uncontrolled DM2. At baseline now. (8) Reflux esophagitis Comment: cont home ppi
[2019-10-28 15:14] LABS: Troponin I 0.42 ng/mL (<0.03)
[2019-10-28] MEDS: Insulin LISPRO* 1 UNITS UNIT SUBCUT SCH ×2 (16:22→22:04)
[2019-10-28] MEDS: Atorvastatin* 80 MG TAB PO SCH (16:31)
[2019-10-28] MEDS: Acetaminophen TAB* 325 MG PO PRN (16:31)
[2019-10-28 17:30] LABS: Troponin I 0.38 ng/mL (<0.03)
--- NOTE | 2019-10-28 17:38 | CONSULT ---
Consult Consult: [facility] Inpatient Consult Note Date of Consult: 10/28/19 Reason for Consult: hyperthyroidism Reason for Admission: NSTEMI ASSESSMENT: 54 yo F with history of severe CAD and diabetes, now presenting with NSTEMI and hyperthyroidism. TSH was low in 2019 and remains low now, but is not fully suppressed, indicating subclinical hyperthyroidism. To confirm this , an iodine uptake and scan is recommended. She reportedly had a LEFT thyroid nodule with benign cytology in the past, so hot nodule is the most likely diagnosis in this case. Given the chronicity of hyperthyroidism, I recommend anti-thyroid therapy with methimazole 10mg daily this admission. She has experienced rising A1c since changing from basal/bolus to a basal-only insulin regimen. Her insulin requirement is approximately 1.4 units/kg/day, which should be given as a standard basal/bolus regimen below until she can see me in clinic later this month. PLAN: - CHECK I-131 uptake and scan this admission or as outpatient - CHECK thyroid ultrasound this admission or as outpatient - CHECK TSH receptor antibody (TRAb) - START methimazole 10mg daily - reduce methimazole to 5mg daily at discharge - beta-maria victoria per cardiology - INCREASE Lantus to 80 units QAM - START HUMALOG 10 units with meals - CHANGE Humalog sliding scale to: - 5 units for BG>200 - 10 units for BG>250 - 15 units for BG>300 - 20 units for BG>350 - 25 units for BG>400 - d/c Jardiance now and on discharge - call with questions -- [phone] SUBJECTIVE: History of Present Illness: 54 yo F with history of FL, CAD s/p FL, PCI and CABG , CKD, MR, HTN, T2DM with A1c >12%, prior tobacco use, PAD, now presenting with chest pain. See admission note for details. Briefly, she has been in her usual state of fair health until the day prior to admission, when she experienced typical angina symptoms with pain radiating to the BUEs. Troponin was weakly (+ ) on admission and she is now admitted for ACS evaluation. Regarding thyroid disease, she has a known LEFT thyroid nodule that has been biopsied multiple times prior to 2013, when she was living in [place]. Biopsy results were benign. She denies history of hyperthyroidism or abnormal TFTs and has never had an iodine study. There is no relevant family history. Regarding diabetes, she attained A1c <7.5% in October 2018, but has been unable to achieve glycemic control since then despite use of intensive insulin regimen + Jardiance. Her admission A1c was >12% and was recently referred to my clinic for evaluation. She currently uses Levemir 100 units QAM, Novolog 70/30 30 units QAM and Novolog/Humalog sliding-scale, along with Jardiance. Past Medical History: 1. CAD s/p PCI and CABG 2 GERD 3. DL 4. HFrEF, EF 40-45% 5. COPD 6. T2DM, A1c 12% 7. CKD-3, eGFR 40-50 Medications Prior to Admission: Atorvastatin* [Lipitor 80 MG*] 80 mg PO QPM 05/24/17 [History Confirmed 10/27/19 ] Clopidogrel TAB* [Plavix TAB*] 75 mg PO DAILY 05/24/17 [History Confirmed ] Furosemide TAB* [Lasix TAB*] 40 mg PO DAILY 05/24/17 [History Confirmed 10/27/19 ] Gabapentin CAP(*) [Neurontin 300 CAP(*)] 300 mg PO DAILY 05/24/17 [History Confirmed 10/27/19] Acetaminophen TAB* [Tylenol TAB*] 650 mg PO Q4H PRN tab 05/26/18 [Rx Confirmed 10/27/19] Docusate CAP* [Colace Cap*] 100 mg PO BID PRN cap 05/26/18 [Rx Confirmed ] Losartan TAB* [Cozaar TAB*] 50 mg PO QAM 05/13/19 [History Confirmed 10/27/19] Albuterol HFA INHALER* [Ventolin HFA Inhaler*] 1 - 2 puff INH Q6H PRN 09/15/19 [ History Confirmed 10/27/19] Aspirin 81 mg CHEW TAB* [Aspirin Low Dose TAB*] 81 mg PO DAILY 09/15/19 [ History Confirmed 10/27/19] Carvedilol TAB* [Coreg TAB*] 3.125 mg PO BID 09/15/19 [History Confirmed ] Empaglifozin (NF) [Jardiance (Nf)] 10 mg PO DAILY 09/15/19 [History Confirmed ] Insulin Detemir [Levemir Flextouch] 90 units SUBCUT QAM 09/15/19 [History Confirmed 10/27/19] Insulin NPH Hum/Reg Insulin Hm [Novolin 70-30 Flexpen] 30 unit SUBCUT QAM [History Confirmed 10/27/19] Pantoprazole TAB * [Protonix TAB*] 40 mg PO BID 09/15/19 [History Confirmed 01/11] Umeclidinium 62.5 MDI(NF) [Incruse ELLIPTA MDI (NF)] 1 puff INH DAILY 09/15/19 [ History Confirmed 10/27/19] Insulin NPH Hum/Reg Insulin Hm [Novolin 70-30 Flexpen] 100 unit SUBCUT BEDTIME 10/27/19 [History Confirmed 10/27/19] Inpatient Medications: Acetaminophen (Tylenol Tab*) 975 mg PO Q8H PRN PRN Reason: PAIN - MODERATE Last Admin: 10/28/19 16:31 Dose: 975 mg Albuterol (Ventolin Hfa Inhaler*) 1 puff INH Q6H PRN PRN Reason: SHORTNESS OF BREATH Aspirin (Aspirin 81 Mg Chew Tab*) 81 mg PO DAILY [facility] Last Admin: 10/28/19 10:35 Dose: 81 mg Atorvastatin Calcium (Lipitor*) 80 mg PO QPM [facility] Last Admin: 10/28/19 16:31 Dose: 80 mg Carvedilol (Coreg Tab*) 6.25 mg PO BID [facility] Dextrose (Dextrose 50% Vial 50 Ml*) 25 ml IV PUSH .FOR FS < 60 - SS PRN PRN Reason: FS < 60 Empagliflozin (Jardiance (Nf)) 10 mg PO DAILY [facility] Enoxaparin Sodium (Lovenox(*)) 90 mg SUBCUT Q12H [facility] Furosemide (Lasix Tab*) 40 mg PO DAILY [facility] Last Admin: 10/28/19 10:36 Dose: 40 mg Gabapentin (Neurontin Cap(*)) 300 mg PO DAILY [facility] Last Admin: 10/28/19 10:35 Dose: 300 mg Insulin Glargine (Lantus(*)) 72 units SUBCUT QAM [facility] Last Admin: 10/28/19 10:38 Dose: 72 unit Insulin Human Lispro (Humalog*) 0 units SUBCUT ACHS [facility]; Protocol Last Admin: 10/28/19 16:22 Dose: 6 units Losartan Potassium (Cozaar Tab*) 25 mg PO QAM [facility] Pantoprazole Sodium (Protonix Tab*) 40 mg PO BID [facility] Last Admin: 10/28/19 10:37 Dose: 40 mg Ticagrelor (Brilinta*) 90 mg PO BID [facility] Tiotropium [place] (Spiriva Respimat 2.5 Mcg) 2 puff INH DAILY [facility] Last Admin: 10/28/19 08:19 Dose: Not Given Allergies/Intolerances: fluoroquinolones, Zofran Social History: Former heavy smoker. Disabled. Lives with . No current alcohol or drug use. Family History: CAD, lung & GI cancer. Review of Systems: 12 system review is otherwise negative, except as noted above. OBJECTIVE: Temp Pulse Resp BP Pulse Ox 97.7 F 77 20 104/68 100 10/28/19 15:15 10/28/19 15:15 10/28/19 15:15 10/28/19 15:15 10/28/19 15:15 General: alert, pleasant, oriented, no distress ENT: neck supple, LEFT thyroid nodule is present, no bruit is heard Chest: CTAB, no wheezing or crackles CV: RRR, no murmur Abdomen: soft, non-tender Extremities: no edema, distal pulses intact Skin: warm, dry, no rash Neuro: grossly intact motor/sensory in extremities Psych: restricted affect, pleasant Labs: Glucose Results 10/28/19 06:00 426 - 72G, 30M 10/28/19 11:30 433 - 10L 10/28/19 16:16 219 - 6L WBC 10.2 10^3/uL (3.5-10.8) 10/27/19 22:57 RBC 4.56 10^6 /uL (3.70-4.87) 10/27/19 22:57 Hgb 13.3 g/dL (12.0-16.0) 10/27/19 22:57 Hct 39 % (35-47) 10/27/19 22:57 MCV 85 fL (80-97) 10/27/19 22:57 MCH 29 pg (27-31) 10/27/19 22:57 MCHC 34 g/dL (31-36) 10/27/19 22:57 RDW 15 % (10-15) 10/27/19 22:57 Plt Count 246 10^3/uL (150-450) 10/27/19 22:57 MPV 9.0 fL (7.4-10.4) 10/27/19 22:57 Neut % (Auto) 81.2 % 10/27/19 22:57 Lymph % (Auto) 12.5 % 10/27/19 22:57 [place] % (Auto) 3.8 % 10/27/19 22:57 Eos % (Auto) 1.7 % 10/27/19 22:57 Baso % (Auto) 0.8 % 10/27/19 22:57 Absolute Neuts (auto) 8.3 10^3/ul (1.5-7.7) H 10/27/19 22:57 Absolute Lymphs (auto) 1.3 10^3/ul (1.0-4.8) 10/27/19 22:57 Absolute Monos (auto) 0.4 10^3/ul (0-0.8) 10/27/19 22:57 Absolute Eos (auto) 0.2 10^3/ul (0-0.6) 10/27/19 22:57 Absolute Basos (auto) 0.1 10^3/ul (0-0.2) 10/27/19 22:57 Absolute Nucleated RBC 0.0 10^3/ul 10/27/19 22:57 Nucleated RBC % 0.1 10/27/19 22:57 Sodium 133 mmol/L (135-145) L 10/28/19 06:33 Potassium 3.9 mmol/L (3.5-5.0) 10/28/19 06:33 Chloride 98 mmol/L (101-111) L 10/28/19 06:33 Carbon Dioxide 23 mmol/L (22-32) 10/28/19 06:33 Anion Gap 12 mmol/L (2-11) H 10/28/19 06:33 BUN 38 mg/dL (6-24) H 10/28/19 06:33 Creatinine 1.47 mg/dL (0.51-0.95) H 10/28/19 06:33 Est GFR ( Amer) 44.7 (>60) 10/28/19 06:33 Est GFR (Non-Af Amer) 36.9 (>60) 10/28/19 06:33 BUN/Creatinine Ratio 25.9 (8-20) H 10/28/19 06:33 Glucose 426 mg/dL (70-100) H 10/28/19 06:33 POC Glucose (mg/dL) 219 mg/dL (70-100) H 10/28/19 16:00 Glucose Meter Confirm 333 mg/dL (70-100) H 10/28/19 12:32 Hemoglobin A1c 12.2 % (4.0-5.6) H 10/28/19 06:33 Calcium 9.5 mg/dL (8.6-10.3) 10/28/19 06:33 Magnesium 2.2 mg/dL (1.9-2.7) 10/27/19 22:57 Total Bilirubin 0.50 mg/dL (0.2-1.0) 10/27/19 22:57 AST 13 U/L (13-39) 10/27/19 22:57 ALT 12 U/L (7-52) 10/27/19 22:57 Alkaline Phosphatase 201 U/L (34-104) H 10/27/19 22:57 Troponin I 0.38 ng/mL (<0.03) H* 10/28/19 16:59 C-Reactive Protein 18.58 mg/L (<8.01) H 10/27/19 22:57 B-Natriuretic Peptide 120 pg/mL (<=100) H 10/27/19 22:57 Total Protein 7.4 g/dL (6.4-8.9) 10/27/19 22:57 Albumin 3.8 g/dL (3.2-5.2) 10/27/19 22:57 Globulin 3.6 g/dL (2-4) 10/27/19 22:57 Albumin/Globulin Ratio 1.1 (1-3) 10/27/19 22:57 Triglycerides 193 mg/dL 10/28/19 06:33 Cholesterol 97 mg/dL 10/28/19 06:33 LDL Cholesterol 25 mg/dL 10/28/19 06:33 HDL Cholesterol 33.8 mg/dL 10/28/19 06:33 Lipase 18 U/L (11.0-82.0) 10/27/19 22:57 TSH 0.09 mcIU/mL (0.34-5.60) L 10/27/19 22:57 Free T4 1.41 ng/dL (0.61-1.12) H 10/27/19 22:57 Free T3 4.50 pg/mL (2.5-3.9) H 10/27/19 22:57 Urine Color Yellow 10/28/19 02:00 Urine Appearance Clear 10/28/19 02:00 Urine pH 6.0 (5-9) 10/28/19 02:00 Ur Specific [place] 1.013 (1.010-1.030) 10/28/19 02:00 Urine Protein 1+(30 mg/dl) (Negative) A 10/28/19 02:00 Urine Ketones Negative (Negative) 10/28/19 02:00 Urine Blood Negative (Negative) 10/28/19 02:00 Urine Nitrate Negative (Negative) 10/28/19 02:00 Urine Bilirubin Negative (Negative) 10/28/19 02:00 Urine Urobilinogen Negative (Negative) 10/28/19 02:00 Ur Leukocyte Esterase Negative (Negative) 10/28/19 02:00 Urine WBC (Auto) 1+(6-10/hpf) (Absent) A 10/28/19 02:00 Urine RBC (Auto) Trace(0-2/hpf) (Absent) 10/28/19 02:00 Ur Squamous Epith Cells Present (Absent) A 10/28/19 02:00 Urine Bacteria Absent (Absent) 10/28/19 02:00 Urine Glucose 3+(>=500 mg/dl) (Negative) A 10/28/19 02:00
[2019-10-28] MEDS: Enoxaparin(*) 80 MG/0.8 ML SYR SUBCUT SCH (17:47)
[2019-10-28] MEDS: Methimazole TAB* 5 MG PO SCH (17:48)
--- NOTE | 2019-10-28 19:42 | CONS ---
CC: Dr. Garcia; Dr. Grimaldo CARDIOLOGY CONSULTATION NOTE: DATE OF CONSULT: 10/28/19 REFERRAL PHYSICIAN: Dr. Katerina Bales. REASON FOR CARDIOLOGY CONSULTATION: Chest pain with non-Q wave AR. HISTORY OF PRESENT ILLNESS: The patient has known history of coronary artery disease with coronary artery bypass grafting and bioprosthetic mitral valve replacement in 2016. The patient states yesterday she went to dinner and had chest pain, which was across her precordium extending to her arms at 2030. It lasted for approximately 3 hours and then resolved. Her troponin has been found to be elevated here at 0.04, followed by 0.11, followed by 0.36. Currently, the patient states she is chest pain free. PAST CARDIAC/MEDICAL HISTORY: The patient has a history of coronary artery disease with several PCIs in the past followed by bioprosthetic mitral valve replacement and 2-vessel bypass at [facility] in July 2017. The patient had angina in October 2018 and underwent cardiac chemical nuclear stress test, which described moderate to large size area of reversible changes in inferior wall extending to the lateral wall and severely depressed left ventricular ejection fraction of 24%. She had a transthoracic echocardiogram on 11/18/18, which showed mildly depressed left ventricular ejection fraction of 40% to 45% with inferolateral, mid anterolateral, and apicolateral hypokinesis with basal inferior, mid inferior akinesis. Mildly stenotic mitral valve bioprosthesis, mild tricuspid regurgitation with mild pulmonary hypertension. She then underwent cardiac catheterization on 11/22/18, which showed proximal LAD and proximal left circumflex artery occluded with nondominant small RCA noted to be small and vein graft to the LAD and vein graft of the left circumflex open and patent. She also has history of GERD, hyperlipidemia, COPD, insulin-dependent diabetes, as well as PAD followed by Dr. Degroot. MEDICATIONS: Outpatient medications: 1. Atorvastatin 80 mg once a day. 2. Plavix 75 mg once a day. 3. Lasix 40 mg once a day. 4. Losartan 50 mg once a day. 5. Aspirin 81 mg once a day. 6. Coreg 3.125 mg p.o. b.i.d. ALLERGIES: To medications are ZOFRAN and LEVAQUIN. FAMILY HISTORY: Positive for cardiac disease, diabetes, and cancer. No family history of stroke. SOCIAL HISTORY: She does not smoke cigarettes and quit in 2017. She used to smoke 2 to 3 packs per day for 42 years. She does not drink alcohol nor use illicit drugs. She has been for 29 years. 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 She tries to walk as her chronic back pain allows. REVIEW OF SYSTEMS: She has a history of stroke with left upper extremity weakness 15 years ago, but that has resolved. She denies cancer. She denies vomiting blood, coughing up blood, bright red blood per rectum, bleeding stomach ulcers. She has had prior cholecystectomy. She denies renal calculi. She denies asthma. She has a history of COPD. She denies tuberculosis. She has a history of pneumonia requiring hospitalization. She denies sleep apnea. She does not use home oxygen. She has a history of diabetes. She has a history of hypertension. Cardiac, as above. She denies palpitations. She has a history of PVD, followed by Dr. Degroot. She denies psychiatric illnesses. She denies lupus, psoriasis, seizures, Parkinson's disease, myasthenia gravis. She has been found to be hyperthyroid this admission with TSH of 0.09, free T4 of 1.41, free T3 4.50. She denies liver disease, kidney disease, claudication symptoms, pulmonary emboli, deep venous thrombosis. She does have a history of mild heartburn. She denies peripheral edema. All other review of systems negative x14 except as per this documentation. PHYSICAL EXAMINATION: General Exam: She is a pleasant lady who appears older than her stated age, in no acute distress. HEENT shows cranium is normocephalic and atraumatic. She has dry mucous membranes. Neck veins are not distended. No clear audible carotid bruits. Visible skin warm and perfused. Affect is appropriate. She appears oriented. No significant kyphoscoliosis on back exam. Lungs are clear to auscultation. No wheezes, no rales. Cardiac Exam: S1, S2. Regular rate. No significant murmurs, rubs, nor gallops. PMI is nondisplaced. Abdomen: Soft, nondistended, appears benign. Extremities without significant edema. Pulses appear diminished but her perfusion is grossly intact distally. DIAGNOSTIC STUDIES/LABORATORY DATA: She had a 12-lead EKG completed on at 2135, which shows sinus tachycardia with right bundle-branch block. When compared to prior EKG completed on 09/15/19, her heart rate has increased. She does have left axis deviation. Sodium 133, potassium 3.9, chloride 98, bicarbonate 23, BUN 38, creatinine 1.47 , glucose 426. Troponin is 0.04 followed by 0.11 followed by 0.36. TSH 0.09. Free T4 1.41, free T3 4.50. White blood cell count 10.2, hematocrit 39, platelet count 346. IMPRESSION: Ms. Chavez is a 54-year-old woman with known history of coronary artery disease, status post bypass with her bypasses documented to be patent to the LAD and left circumflex artery (with known small nondominant RCA) by cardiac catheterization 1 year ago with mildly depressed left ventricular ejection fraction. She is admitted with chest pain, found to have elevated troponin, and this appears to be in the setting of hyperthyroidism as the inciting cause. RECOMMENDATIONS: 1. Endocrine evaluation to manage hyperthyroidism or document this is as simply sick euthyroid syndrome. If the patient is felt to have sick euthyroid syndrome or nothing further can be done acutely for her hyperthyroidism and she were to continue to have chest pain, would plan for repeat cardiovascular risk stratification with a cardiac chemical nuclear stress test and can compare with prior to look for new anterior wall or lateral wall ischemic changes. I do feel the patient is high risk for cardiac catheterization and again her troponin elevation appears to be due to her hypermetabolic state from hyperthyroidism with increased risk for an invasive strategy with cardiac catheterization. 2. Repeat echocardiogram. 3. Continue aspirin and statin. Agree with increased Coreg for heart rate, ARB and Lovenox b.i.d. until her troponin peaks, reasonable that she has been changed from Plavix to Brilinta. 4. Rule out PE. 5. Other management including regarding diabetes and thyroid as per the hospitalist, Dr. Bales and Endocrinology. The above was discussed with the patient and her daughter. She seems to be in agreement with these recommendations. I have also discussed the case with Dr. Bales. Dear Dr. Bales, thank for this cardiac consultation opportunity. Please do not hesitate to contact me if you have any questions or concerns regarding the patient's cardiovascular consultative care. [id number]/[facility] #: [id number] [facility]
[2019-10-28] MEDS: Ticagrelor* 90 MG TAB PO SCH (22:05)
[2019-10-28] MEDS: Carvedilol TAB* 6.25 MG PO SCH (22:05)
[2019-10-29] MEDS: Enoxaparin(*) 80 MG/0.8 ML SYR SUBCUT SCH (05:29)
[2019-10-29 06:47] LABS: BUN/Creatinine Ratio 26.1 (8-20); Calcium 8.6 mg/dL (8.6-10.3); EGFR African American 42.6 (>60); EGFR Non-African American 35.2 (>60); Magnesium 2.2 mg/dL (1.9-2.7); Potassium 3.8 mmol/L (3.5-5.0)
[2019-10-29] MEDS: SPIRIVA Respimat* (tiotropium) 2.5 mcg/inh Inhaler INH SCH (08:12)
--- NOTE | 2019-10-29 08:26 | PN ---
Subjective Date of Service: 10/29/19 Interval History: Troponin peaked yesterday at 0.42. Chest pain resolved around that time. Continuing patient on treatment for NSTEMI. Beta-maria victoria increased, on DAPT, statin, and therapeutic anticoagulation. Endocrine recommended further thyroid testing, insulin titration, and to start patient on methimazole. See note. Pending echo and thyroid ultrasound today. Objective Active Medications: Acetaminophen (Tylenol Tab*) 975 mg PO Q8H PRN PRN Reason: PAIN - MODERATE Last Admin: 10/28/19 16:31 Dose: 975 mg Albuterol (Ventolin Hfa Inhaler*) 1 puff INH Q6H PRN PRN Reason: SHORTNESS OF BREATH Aspirin (Aspirin 81 Mg Chew Tab*) 81 mg PO DAILY [facility] Last Admin: 10/28/19 10:35 Dose: 81 mg Atorvastatin Calcium (Lipitor*) 80 mg PO QPM [facility] Last Admin: 10/28/19 16:31 Dose: 80 mg Carvedilol (Coreg Tab*) 6.25 mg PO BID [facility] Last Admin: 10/28/19 22:05 Dose: 6.25 mg Dextrose (Dextrose 50% Vial 50 Ml*) 25 ml IV PUSH .FOR FS < 60 - SS PRN PRN Reason: FS < 60 Empagliflozin (Jardiance (Nf)) 10 mg PO DAILY [facility] Enoxaparin Sodium (Lovenox(*)) 90 mg SUBCUT Q12H [facility] Last Admin: 10/29/19 05:29 Dose: 90 mg Furosemide (Lasix Tab*) 40 mg PO DAILY [facility] Last Admin: 10/28/19 10:36 Dose: 40 mg Gabapentin (Neurontin Cap(*)) 300 mg PO DAILY [facility] Last Admin: 10/28/19 10:35 Dose: 300 mg Insulin Glargine (Lantus(*)) 72 units SUBCUT QAM [facility] Last Admin: 10/28/19 10:38 Dose: 72 unit Insulin Human Lispro (Humalog*) 0 units SUBCUT ACHS [facility]; Protocol Last Admin: 10/28/19 22:04 Dose: 6 units Losartan Potassium (Cozaar Tab*) 25 mg PO QAM [facility] Methimazole (Tapazole Tab*) 10 mg PO DAILY [facility] Last Admin: 10/28/19 17:48 Dose: 10 mg Pantoprazole Sodium (Protonix Tab*) 40 mg PO BID [facility] Last Admin: 10/28/19 22:05 Dose: 40 mg Ticagrelor (Brilinta*) 90 mg PO BID [facility] Last Admin: 10/28/19 22:05 Dose: 90 mg Tiotropium [place] (Spiriva Respimat 2.5 Mcg) 2 puff INH DAILY [facility] Last Admin: 10/29/19 08:12 Dose: 2 puff Vital Signs - 8 hr 10/29/19 10/29/19 10/29/19 03:36 03:46 07:15 Temperature 97.3 F 98.3 F Pulse Rate 74 81 Respiratory 16 20 Rate Blood Pressure 93/55 120/50 97/72 (mmHg) O2 Sat by Pulse 98 98 Oximetry 10/29/19 10/29/19 08:00 08:16 Temperature Pulse Rate 85 Respiratory 20 16 Rate Blood Pressure (mmHg) O2 Sat by Pulse 98 Oximetry Oxygen Devices in Use Now: None Appearance: well appearing, nad, speaks in full sentences Ears/Nose/Mouth/Throat: Clear Oropharnyx, Mucous Membranes Moist Neck: NL Appearance and Movements; NL JVP, Trachea Midline Respiratory: Symmetrical Chest Expansion and Respiratory Effort, Clear to Auscultation Cardiovascular: NL Sounds; No Murmurs; No JVD, RRR Extremities: No Edema Skin: No Rash or Ulcers Neurological: Alert and Oriented x 3 Result Diagrams: 10/27/19 22:57 10/29/19 05:52 Additional Lab and Data: Trop: 0.04->0.11 BNP: 120 TSH: 0.09 , free T4 1.41 eGFR 33 EKG Data: EKG: sinus rhythm, RBBB, T wave insertion V1-V3 (new compared with 08/2019 EKG ) Assess/Plan/Problems-Billing Assessment: 54W with CAD s/p stenting and CABG, uncontrolled DM2 on insulin, HFrEF 40-45%, COPD, GERD, presents with acute chest pain, found with elevated troponin. - Patient Problems (1) Elevated troponin Comment: Concerning in the context of chest pain, most likely NSTEMI. - cardiology following - cont home aspirin - clopidogrel switched to ticagrelor - on therapeutic lovenox 10/28 - 10/30 - treat thyroid as per endo (2) Low TSH level Comment: Without symptoms of hyperthyroid. - appreciate endo recs - NM uptake scan cannot be performed until likely Wednesday the (3) CAD (coronary artery disease) Comment: Cardiac cath 10/2018 with unchanged coronary artery disease. - Continue DAPT, statin, beta-maria victoria (4) Type II diabetes mellitus Comment: HgbA1c 12.2%. Poor control on home doses of insulin in the hospital. - cont long-acting with glargine 80u daily - stop home 70/30 and start lispro 10 with meals, with additional sliding scale per Endo - Consistent carb diet. (5) COPD (chronic obstructive pulmonary disease) Comment: - substitute home umeclidinium with tiotropium - albuterol prn (6) Chronic systolic CHF (congestive heart failure) Comment: No evidence of exacerbation. EF 40-45%. - cont home furosemide - continue losartan, carvedilol (7) Creatinine elevation Comment: Elevation has been progressive, likely CKD from uncontrolled DM2. At baseline now. (8) Reflux esophagitis Comment: cont home ppi
[2019-10-29] MEDS: Insulin LISPRO* 1 UNITS UNIT SUBCUT SCH ×6 (08:27→22:05)
[2019-10-29] MEDS: Carvedilol TAB* 6.25 MG PO SCH ×2 (08:29→22:13)
[2019-10-29] MEDS: Furosemide TAB* 40 MG PO SCH (08:29)
[2019-10-29] MEDS: Acetaminophen TAB* 325 MG PO PRN ×2 (08:29→17:59)
[2019-10-29] MEDS: Gabapentin CAP(*) 300 MG PO SCH (08:30)
[2019-10-29] MEDS: Losartan TAB* 25 MG PO SCH (08:30)
[2019-10-29] MEDS: Ticagrelor* 90 MG TAB PO SCH ×2 (08:30→22:12)
[2019-10-29] MEDS: Aspirin 81 mg CHEW TAB* 81 MG TAB.CHEW PO SCH (08:30)
[2019-10-29] MEDS: Pantoprazole TAB * 40 MG TAB PO SCH ×2 (08:31→22:12)
[2019-10-29] MEDS: Methimazole TAB* 5 MG PO SCH (08:31)
[2019-10-29] MEDS: Insulin GLARGINE(*) 1 UNITS UNIT SUBCUT SCH (08:44)
[2019-10-29] MEDS ORDERED: EMPAGLIFOZIN 10 MG PO SCH (09:00)
[2019-10-29] MEDS ORDERED: Perflutren Lipid Microsphere* 3 ML VIAL ONE (10:01)
--- NOTE | 2019-10-29 13:06 | ECHO ---
*[facility]* [place] [address] Fax #: [phone] Transthoracic Echocardiogram Patient: April Chavez : 1965 Study Date: 10/29/2019 Age: 54 Gender: F HR: 81 bpm Height: 63 in /160 cm BSA: 1.84 m^2 Weight: 178.6 lb /81.2 kg BMI: 31.7 kg/m^2 *Inorganic Chemistry Professor: * Carol Love RDCS RN *Referring Physician: * Dianna Calvillo *Reading Physician: * Nehemiah Hirsch MD Indications: Chest Pain, unspecified. History: Coronary artery disease. CABG. Bioprosthetic mitral valve replacement. Coronary stenting. COPD. Risk factors: Former tobacco use. Diabetes mellitus. Obese. Dyslipidemia. Conclusions Summary: - Left ventricle: The cavity size is normal. Systolic function is mildly reduced. The estimated ejection fraction is 40-45%. Hypokinesis of the basal-midinferolateral myocardium. Hypokinesis of the basal-midinferior myocardium. - Normal cardiac chamber sizes. - Mitral valve: There is a normally functioning mitral valve bioprosthetic replacment present. It appears mildly stenotic with a mean PG of 6mmHg. There is no significant regurgitation. - Since the prior echocardiogram completed 11/18/18, there is no significant change. Study data: Transthoracic echocardiogram. Procedure: Transthoracic echocardiography was performed. Image quality was fair. The study was technically limited due to body habitus and smoking history. Intravenous Definity 2 ml was administered to enhance imaging. Complete 2D, spectral Doppler, and color flow Doppler. Location: Bedside. Patient status: Inpatient. Patient room number: 450-01. Rhythm: Normal sinus rhythm. Findings Left ventricle: The cavity size is normal. Systolic function is mildly reduced. The estimated ejection fraction is 40-45%. Regional wall motion abnormalities: Hypokinesis of the basal-midinferolateral myocardium. Hypokinesis of the basal-midinferior myocardium. Left ventricular diastolic function parameters are indeterminate. Right ventricle: The cavity size is normal. Systolic function is normal. Ventricular septum: Ventricular septal wall motion has a postoperative appearance. Left atrium: The atrium is normal in size. Right atrium: The atrium is normal in size. Mitral valve: There is a normally functioning mitral valve bioprosthetic replacment present. It appears mildly stenotic with a mean PG of 6mmHg. There is no significant regurgitation. There is no significant regurgitation. Aortic valve: Not well visualized in terms of leaflet number ascertainment. The leaflets are mildly thickened. There is no evidence of stenosis. There is no significant regurgitation. Tricuspid valve: Not well visualized. There is trace regurgitation. Pulmonic valve: Not well visualized. There is no significant stenosis nor regurgitation. Aorta: Aortic root: The aortic root is not dilated. Ascending aorta: The ascending aorta is not dilated. Aortic arch: The aortic arch is not dilated. Pericardium: There is no pericardial effusion. Pulmonary arteries: Not well visualized. Systolic pressure can not be accurately estimated. Systemic veins: Inferior vena cava: The vessel is normal in size. There is (>= 50%) respiratory change in the IVC dimension. Measurements Left ventricle Value Ref Aortic valve Value Ref OLIVIA, LAX 4.0 cm 3.8 - 5.2 Roz diam, ED 1.5 cm ---- ESD, LAX 3.3 cm 2.2 - 3.5 Peak v, S 1.73 m/sec ---- FS, LAX (L) 19 % 27 - 45 VTI, S 34.9 cm ---- PW, ED, LAX 0.9 cm 0.6 - 0.9 Mean grad, S 7.0 mm Hg ---- PW, ED 0.9 cm 0.6 - 0.9 Peak grad, S 12.0 mm Hg ---- IVS/PW, ED 1.08 LVOT/AV, VTI ratio 0.83 ---- Qs 2.2 L/min E', lat roz, TDI (L) 3.5 cm/sec >=10.0 Mitral valve Value Re f E/e', lat roz, 51 Peak A 1.33 m/sec ---- TDI Decel time 310 ms ---- E', med roz, TDI (L) 3.7 cm/sec >=7.0 PHT 95 ms -- -- E/e', med roz, 48 Peak grad, D 12.0 mm Hg ---- TDI Peak E/A ratio 1.3 ---- E', avg, TDI 3.6 cm/sec MVA, PHT 2.3 cm^2 ---- E/e', avg, TDI (H) 49 <=14 Pulmonic valve Value Ref LVOT Value Ref Peak v, S 0.69 m/sec ---- Peak alex, S 1.39 m/sec Peak grad, S 2.0 mm Hg ---- VTI, S 29.0 cm Peak grad, S 8 mm Hg Aortic root Value Ref Mean grad, S 5 mm Hg Root diam 2.5 cm <4.0 Ventricular septum Value Ref Ascending aorta Value Ref IVS, ED (H) 1.0 cm 0.6 - 0.9 AAo AP diam, S 2.3 cm ---- Right ventricle Value Ref Aortic arch Value Ref OLIVIA, LAX 2.0 cm Arch diam 2.3 cm ---- OLIVIA minor ax, A4C 3.2 cm 1.9 - 3.5 mid Decending aorta Value Ref Latisha peak alex 0.93 m/sec ---- Left atrium Value Ref AP dim, ES 3.70 cm 2.70 - Inferior vena cava Value Ref 3.80 Diam 1.5 cm ---- ML dim, A4C 3.3 cm SI dim, A4C 4.2 cm Vol/bsa, ES, 1-p 21 ml/m^2 11 - 40 A4C Vol/bsa, ES, A/L 29 ml/m^2 16 - 34 Right atrium Value Ref ML dim, ES, A4C 3.5 cm 2.6 - 4.4 SI dim, ES, A4C 3.4 cm 3.4 - 5.3 Estimated RAP 3 mm Hg Legend: (L) and (H) brent values outside specified reference range. Prepared and electronically signed by Nehemiah Hirsch MD 10/29/2019 13:06
[2019-10-29] MEDS: Enoxaparin(*) 100 MG/ML SYR SUBCUT SCH (17:55)
[2019-10-29] MEDS: Atorvastatin* 80 MG TAB PO SCH (17:55)
[2019-10-30] MEDS: Enoxaparin(*) 100 MG/ML SYR SUBCUT SCH (05:16)
[2019-10-30 05:50] LABS: EGFR African American 46.1 (>60); EGFR Non-African American 38.1 (>60); Magnesium 2.3 mg/dL (1.9-2.7); Potassium 3.9 mmol/L (3.5-5.0)
[2019-10-30] MEDS: SPIRIVA Respimat* (tiotropium) 2.5 mcg/inh Inhaler INH SCH (07:04)
[2019-10-30] MEDS: Insulin LISPRO* 1 UNITS UNIT SUBCUT SCH ×4 (08:08→12:04)
[2019-10-30] MEDS: Gabapentin CAP(*) 300 MG PO SCH (08:30)
[2019-10-30] MEDS: Insulin GLARGINE(*) 1 UNITS UNIT SUBCUT SCH (08:30)
[2019-10-30] MEDS: Losartan TAB* 25 MG PO SCH (08:31)
[2019-10-30] MEDS: Furosemide TAB* 40 MG PO SCH (08:31)
[2019-10-30] MEDS: Ticagrelor* 90 MG TAB PO SCH (08:31)
[2019-10-30] MEDS: Carvedilol TAB* 6.25 MG PO SCH (08:31)
[2019-10-30] MEDS: Pantoprazole TAB * 40 MG TAB PO SCH (08:31)
[2019-10-30] MEDS: Aspirin 81 mg CHEW TAB* 81 MG TAB.CHEW PO SCH (08:31)
[2019-10-30] MEDS: Methimazole TAB* 5 MG PO SCH (08:34)
[2019-10-30] MEDS: Acetaminophen TAB* 325 MG PO PRN (12:07)
[2019-10-30 16:23] VITALS: BP 118/60
--- NOTE | 2019-10-31 02:57 | DS ---
CC: Dr. Garcia; Dr. Ramírez; Dr. Grimaldo * DISCHARGE SUMMARY: DATE OF ADMISSION: 10/28/19 DATE OF DISCHARGE: 10/30/19 PRIMARY CARE PROVIDER: Dr. Garcia. AUTOMOTIVE WINDOW TINTER: Dr. Grimaldo. DIRECTOR SPECIALTY: Dr. Ramírez. PRINCIPAL DIAGNOSES: 1. Possible [id number] myocardial infarction. 2. Hyperthyroidism. SECONDARY DIAGNOSES: 1. Coronary artery disease. 2. Gastroesophageal reflux disease. 3. Hyperlipidemia. 4. Heart failure with reduced ejection fraction. 5. Chronic obstructive pulmonary disease. 6. Insulin-dependent diabetes. DISCHARGE MEDICATIONS: 1. Incruse Ellipta 1 puff inhaled daily. 2. Protonix 40 mg p.o. daily. 3. Losartan 25 mg p.o. daily. 4. Levemir 80 units subcutaneous daily. 5. Gabapentin 300 mg p.o. daily. 6. Lasix 40 mg p.o. daily. 7. Colace 100 mg p.o. b.i.d. p.r.n. constipation. 8. Lipitor 80 mg p.o. q.h.s. 9. Aspirin 81 mg p.o. daily. 10. Albuterol HFA 1 to 2 puffs inhaled q.6 hours p.r.n. shortness of breath. 11. Tylenol 650 mg p.o. q.4 hours p.r.n. pain. 12. Ticagrelor 90 mg p.o. b.i.d. 13. Methimazole 5 mg p.o. daily. 14. Insulin lispro 10 units subcutaneous a.c. with corrective lispro scale as follows: 5 units for blood glucose greater than 200, 10 units for blood glucose greater than 250, 15 units for blood glucose greater than 300, 20 units for blood glucose greater than 350, 25 units for blood glucose greater than 400. 15. Carvedilol 6.25 mg p.o. b.i.d. (new dose). HOSPITAL COURSE: Ms. Chavez is a 54-year-old female who presented to the emergency room on 10/28/19 with complaints of chest pain. She was having dinner with her family at [place] when the pain started. The pain lasted for approximately 1 hour and resolved on its own. This was different than her heart attack in the past. She had cath in October 2018 which showed patent bypass. She had been on aspirin, Plavix, and Lipitor prior to this admission. The patient was admitted for possible NSTEMI. Her troponin peaked at 0.42. The patient has since been chest pain free. She was treated with Lovenox, aspirin, and switched from Plavix to Brilinta. Her Coreg dose was increased. Her losartan dose was decreased. The patient underwent transthoracic echocardiogram on 10/28/19, which revealed an EF of 40% to 45% with hypokinesis of the basal mid inferolateral myocardium and hypokinesis of the basal mid inferior myocardial. There is a normally functioning bioprosthetic mitral valve which appears mildly stenotic. There was no significant change compared to her echo dated 11/18/18. There was concern that the NSTEMI may have been precipitated by hyperthyroidism as the patient's TSH was noted to be 0.09. Her free T4 was elevated at 1.41. The patient was seen in consultation by Dr. Hirsch , who recommended endocrine evaluation to manage the hyperthyroidism. It was recommended to continue the aspirin and statin and increase the Coreg. The patient was also seen in consultation by Dr. Ramírez, who felt that the patient likely has subclinical hyperthyroidism. To confirm this, an iodine uptake scan was recommended. Given the chronicity of the hyperthyroidism, he also recommended antithyroid therapy with methimazole. Additionally, he made recommendations to modify the patient's insulin regimen. The patient at this point has a thyrotropin receptor antibody pending. She has been scheduled for a thyroid uptake scan for 10/31/19. Prescription for methimazole 5 mg daily has been sent as recommended by Dr. Ramírez. The patient as noted above has been chest pain free. She denied shortness of breath. She has been up and walking without any difficulty. She was treated for 48 hours for medical management of possible NSTEMI. As there was no ongoing chest pain, stress test was not ordered. At this point, it was felt the patient was stable for discharge home. PHYSICAL EXAMINATION: On the day of discharge, the patient was sleeping in her bed but easily awakened to voice. Her cardiac exam revealed normal S1, S2 with regular rate and rhythm. Her lungs were clear. Her abdomen was soft, nontender , nondistended. She has trace lower extremity edema. FOLLOWUP CONCERNS: The patient is being discharged home today 10/30/19. Activity level is as tolerated. Diet is heart-healthy, diabetic. Condition on discharge is stable. The patient is to follow up with Dr. Garcia in the next 4 to 7 days, with Dr. Ramírez in the 1 to 2 weeks, with Dr. Tomas Grimaldo in the next 1 month. Additionally, the patient has a thyroid uptake scan scheduled for 10/31/19. The patient did undergo thyroid ultrasound, which revealed 3 low suspicious nodules which are larger than 1.5 cm. FNA should be considered. This can be followed up by Dr. Ramírez when he sees her as an outpatient. TIME SPENT: Forty minutes was spent discharging this patient. [id number]/[facility] #: [id number] [facility]
== END 2019-10-30 16:45 | disposition home or self-care (01) | DRG 281 ==
LOC: ED 21:31 → MEDTELE 10-28 03:52
PROVIDERS: ADMIT Internal Medicine; ATTEND Hospitalist
DX: I21.4 Non-ST elevation (NSTEMI) myocardial infarction (principal); I50.22 Chronic systolic (congestive) heart failure; N18.4 Chronic kidney disease, stage 4 (severe); E11.40 Type 2 diabetes mellitus with diabetic neuropathy, unspecified; I27.20 Pulmonary hypertension, unspecified; I25.10 Atherosclerotic heart disease of native coronary artery without angina pectoris; E78.5 Hyperlipidemia, unspecified; J44.9 Chronic obstructive pulmonary disease, unspecified; E05.90 Thyrotoxicosis, unspecified without thyrotoxic crisis or storm; I07.1 Rheumatic tricuspid insufficiency; E11.22 Type 2 diabetes mellitus with diabetic chronic kidney disease; K21.0 Gastro-esophageal reflux disease with esophagitis; M54.9 Dorsalgia, unspecified; I45.10 Unspecified right bundle-branch block; Z95.1 Presence of aortocoronary bypass graft; Z95.2 Presence of prosthetic heart valve; Z95.5 Presence of coronary angioplasty implant and graft; Z82.49 Family history of ischemic heart disease and other diseases of the circulatory system; Z80.1 Family history of malignant neoplasm of trachea, bronchus and lung; Z80.0 Family history of malignant neoplasm of digestive organs; Z87.891 Personal history of nicotine dependence; Z88.1 Allergy status to other antibiotic agents; Z88.8 Allergy status to other drugs, medicaments and biological substances; Z79.01 Long term (current) use of anticoagulants; Z79.02 Long term (current) use of antithrombotics/antiplatelets; Z79.4 Long term (current) use of insulin; Z79.899 Other long term (current) drug therapy; Z79.82 Long term (current) use of aspirin; Z86.73 Personal history of transient ischemic attack (TIA), and cerebral infarction without residual deficits
CPT/HCPCS: 36415; 71046; 76536; 80048; 80053; 80061; 81003; 81015; 82947; 83036; 83520; 83690; 83735; 83880; 84439; 84443; 84481; 84484; 85025; 86140; 87077; 87086; 93005; 93306; 94640; 99284; A9270-GY; C8929; J1650; J1815; J3535

== ENCOUNTER 2019-11-23 10:14 | Inpatient (IN) | payer MEDICARE ==
--- NOTE | 2019-11-23 10:23 | ED ---
HPI Chest Pain - HPI Summary HPI Summary: 54 year old F arriving via ambulance complains of sudden onset mid sternal chest pain described as pressure radiating down her bilateral upper extremities and into her mid back with shortness of breath and wheezing starting at 0800 today 11/23/2019 while lying down. Patient took nitroglycerin at 0845 and another at 0915 without relief per EMS. Patient states she tried using inhaler this morning with some relief. Patient called EMS. EMS did not give nitroglycerin. EKG done by EMS showed ST elevations in anterior leads per EMS. EMS unable to obtain IV access. Patient denies fever, chills, diaphoresis, erythema of eyes, sore throat, cough, abdominal pain, nausea/vomiting, dysuria, hematuria, myalgia, edema, pain or swelling in bilateral lower extremities, rash , or dizziness. Hx STEMI. Patient seen in ED on 10/27/2019 for similar symptoms. Patient dx STEMI. Patient states she was doing well after she was discharged from the hospital. No recent long distance traveling or injury. Patient notes that she recently was sick with a cold and has been lying in bed. Patient states she does not wear nasal cannula oxygen at home. Had double bypass surgery and aortic replacement in 2017 at [facility]. Sees Dr. Grimaldo cardiology. Patient states she had an appointment with him several days ago. Symptoms rated _/10 in severity. Symptoms aggravated by nothing. Symptoms alleviated by nothing. Medications reviewed. On anticoagulants. Allergies noted. Positive FHx PE and DVT. Negative FHx aneurysms. - History of Current Complaint Hx Obtained From: Patient, EMS Onset/Duration: Started Hours Ago - 0800, Still Present Timing: Constant Pain Scale Used: 0-10 Numeric Chest Pain Location: Mid Sternal Chest Pain Radiates: Yes Chest Pain Radiates To:: Back - mid, Arm - bilateral Character: Pressure/Squeezing Aggravating Factor(s): Nothing Alleviating Factor(s): Nothing Associated Signs and Symptoms: Positive: Negative - fever, chills, diaphoresis, erythema of eyes, sore throat, cough, abdominal pain, nausea/vomiting, dysuria, hematuria, myalgia, edema, pain or swelling in bilateral lower extremities, rash , or dizziness, Shortness of Breath, Wheezing - Additional Pertinent History Primary Care Physician: ЕЛЕНА - Allergy/Home Medications Allergies/Adverse Reactions: Allergies Allergy/AdvReac Type Severity Reaction Status Date / Time metformin Allergy Severe Diarrhea Verified 10/29/19 22:18 levofloxacin [From Levaquin] Allergy Nausea And Verified 05/13/19 02:31 Vomiting ondansetron Allergy Hives Verified 05/13/19 02:31 [From Zofran (as hydrochloride)] PMH/Surg Hx/FS Hx/Imm Hx Endocrine/Hematology History: Reports: Hx Anticoagulant Therapy, Hx Diabetes, Hx Anemia Cardiovascular History: Reports: Hx Angina, Hx Angioplasty, Hx Congestive Heart Failure, Hx Coronary Artery Disease, Hx Hypercholesterolemia, Hx Hypertension, Hx Myocardial Infarction, Hx Peripheral Vascular Disease, Hx Valvular Heart Disease - mitral valve replacement, Other Cardiovascular Problems/Disorders - cardiomyopathy EF 40%, bipass, PVD Denies: Hx Pacemaker/ICD Respiratory History: Reports: Hx Chronic Obstructive Pulmonary Disease (COPD) GI History: Reports: Hx Gastroesophageal Reflux Disease Musculoskeletal History: Reports: Hx Arthritis - general Sensory History: Reports: Hx Contacts or Glasses Denies: Hx Hearing Aid Opthamlomology History: Reports: Hx Contacts or Glasses Neurological History: Reports: Hx Transient Ischemic Attacks (TIA) - 2014 Denies: Hx Headaches Psychiatric History: Reports: Hx Anxiety, Hx Depression Denies: Hx Panic Disorder - Surgical History Surgery Procedure, Year, and Place: Complete Hysterectomy 2004; [facility]; HEART CATH- 4 CARDIAC STENTS, CABG, M[facility] - Family History Known Family History: Positive: Cardiac Disease, Other - PE, DVT - Social History Alcohol Use: Occasionally Hx Substance Use: No Substance Use Type: Reports: None Hx Tobacco Use: Yes Smoking Status (MU): Former Smoker Type: Cigarettes Length of Time of Smoking/Using Tobacco: since she was 11 until 1 year ago Have You Smoked in the Last Year: No Review of Systems Negative: Fever, Chills Negative: Erythema Negative: Sore Throat Positive: Chest Pain Positive: Shortness Of Breath, Other - wheezing. Negative: Cough Negative: Abdominal Pain, Vomiting, Nausea Negative: dysuria, hematuria Musculoskeletal: Negative - pain in bilateral lower extremities Negative: Myalgia, Edema Negative: Rash Neurological: Negative - Dizziness All Other Systems Reviewed And Are Negative: Yes Physical Exam - Summary Physical Exam Summary: Constitutional: Well-developed, Well-nourished, Alert. (-) Distressed Skin: Warm, Dry HENT: Normocephalic; Atraumatic Eyes: Conjunctiva normal Neck: Musculoskeletal ROM normal neck. (-) JVD, (-) Stridor, (-) Tracheal deviation Cardio: Rhythm regular, rate normal, Heart sounds normal; Intact distal pulses; The pedal pulses are 2+ and symmetric. Radial pulses are 2+ and symmetric. (-) Murmur Pulmonary/Chest wall: Small amount of wheezing and minimal amount of rhonchi in lower lung herrera Abd: Soft, (-) tenderness, (-) Distension, (-) Guarding, (-) Rebound Musculoskeletal: (-) Edema Lymph: (-) Cervical adenopathy Neuro: Alert, Oriented x3 Psych: Mood and affect Normal Triage Information Reviewed: Yes Vital Signs Reviewed: Yes Procedures - Sedation Patient Received Moderate/Deep Sedation with Procedure: No Diagnostics - Laboratory Result Diagrams: 11/23/19 10:41 11/23/19 10:41 Lab Statement: Any lab studies that have been ordered have been reviewed, and results considered in the medical decision making process. - Radiology CXR Radiology Interpretation Completed By: Radiologist Summary of Radiographic Findings: PROMINENCE OF THE INTERSTITIAL MARKINGS LIKELY SECONDARY TO CHRONIC INTERSTITIAL LUNG DISEASE. THE POSSIBILITY OF SUPERIMPOSED INTERSTITIAL PULMONARY EDEMA CANNOT BE RULED OUT. ED physician has reviewed this imaging report. - CT Chest/Thorax CTA CT Interpretation Completed By: Radiologist Summary of CT Findings: 1. NO PULMONARY ARTERIAL FILLING DEFECT TO SUGGEST PULMONARY EMBOLISM. 2. HILAR AND MEDIASTINAL LYMPHADENOPATHY. THE DIFFERENTIAL INCLUDES METASTATIC LYMPHADENOPATHY. 3. SMALL BILATERAL PLEURAL EFFUSIONS. 4. ENLARGED THYROID WITH A LARGE LEFT THYROID NODULE AND EXTENSION INTO THE ANTERIOR MEDIASTINUM. ED physician has reviewed this imaging report. Re-Evaluation - Re-Evaluation First Eval Re-Evaluation Time: 12:03 Change: Unchanged Comment: patient still has 2/10 chest pressure Chest Pain Course/Dx - Course Course Of Treatment: 54 year old F arriving via ambulance complains of sudden onset mid sternal chest pain described as pressure radiating down her bilateral upper extremities and into her mid back with shortness of breath and wheezing starting at 0800 today 11/23/2019 while lying down. Patient took nitroglycerin at 0845 and another at 0915 without relief per EMS. Patient states she tried using inhaler this morning with some relief. Patient called EMS. Patient denies fever, chills, diaphoresis, erythema of eyes, sore throat, cough, abdominal pain , nausea/vomiting, dysuria, hematuria, myalgia, edema, pain or swelling in bilateral lower extremities, rash, or dizziness. Hx STEMI. Patient seen in ED on 10/27/2019 for similar symptoms. Patient dx STEMI. Patient states she was doing well after she was discharged from the hospital. No recent long distance traveling or injury. Patient notes that she recently was sick with a cold and has been lying in bed. Patient states she does not wear nasal cannula oxygen at home. Had double bypass surgery and aortic replacement in 2017 at [facility]. Sees Dr. Grimaldo cardiology. Patient states she had an appointment with him several days ago. On anticoagulants. Positive FHx PE and DVT. Negative FHx aneurysms. Upon exam, the patient has small amount of wheezing and minimal amount of rhonchi in lower lung herrera. Given the sudden onset chest pain associated with SOB and hypoxia, and positive FHx, I have a high suspicion for acute PE. Also findings of RBBB on EKG sent by EMS can be associated with right heart strain. Bloodwork results with no significant abnormalities except for WBC 14.7, Hgb 11.5, RDW 16, absolute neuts 13.1, absolute lypmhs 0.8, creatinine 1.11, BUN/ creatinine 20.7, glucose 162, alkaline phosphatase 136. 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 THE POSSIBILITY OF SUPERIMPOSED INTERSTITIAL PULMONARY EDEMA CANNOT BE RULED OUT. Chest/Thorax CTA shows per radiologist: 1. NO PULMONARY ARTERIAL FILLING DEFECT TO SUGGEST PULMONARY EMBOLISM. 2. HILAR AND MEDIASTINAL LYMPHADENOPATHY. THE DIFFERENTIAL INCLUDES METASTATIC LYMPHADENOPATHY. 3. SMALL BILATERAL PLEURAL EFFUSIONS. 4. ENLARGED THYROID WITH A LARGE LEFT THYROID NODULE AND EXTENSION INTO THE ANTERIOR MEDIASTINUM. In the ED course, the patient was given Duoneb treatment, Solumedrol, nitroglycerin. We discussed patient care with Dr. Hansen who agreed to admit the patient. The patient will be admitted to the hospitalist. The patient is agreeable with this plan. - Diagnoses Provider Diagnoses: Hypoxemia, Chest pain, unspecified, Pleural effusion, Pulmonary edema - Provider Notifications Discussed Care Of Patient With: Glen Hansen Time Discussed With Above Provider: 12:10 Instructed by Provider To: Admit As Inpatient - Critical Care Time Critical Care Time: 30-74 min - 45 Discharge ED - Sign-Out/Discharge Documenting (check all that apply): Patient Departure - Discharge Plan Condition: Stable Disposition: ADMITTED TO [facility] Referrals: Jamaal Garcia DO [Primary Care Provider] - - Attestation Statements Document Initiated by Scribe: Yes Documenting Scribe: Christina Woo Provider For Whom Scribe is Documenting (Include Credential): Renan Acevedo MD Scribe Attestation: Christina Overton, scribed for Renan Acevedo MD on 11/23/19 at 1210. Status of Scribe Document: Ready
--- OUTSIDE RECORDS SUMMARY | 2019-11-23 10:38 | XMS REPORT | Continuity of Care Document ---
:1965 External Reference #:[id number] Author Name Jamaal Garcia D.O. Address [address] [place] [address] Care Team Providers Name Role Phone HCP/LW on file Care Team Information Activity Therapy Specialist Unavailable [facility] - Spec/Tech, Care Team Information Activity Therapy Specialist Cardiovascular Winifred Ahumada MD - Pulmonary Care Team Information Activity Therapy Specialist [phone] Disease Femi Degroot MD - Vascular & Care Team Information Activity Therapy Specialist [phone] Interventional [facility]iology [facility] - Wound Care Care Team Information Activity Therapy Specialist Problems Active Problems Provider Date Type II [...] 1ppd-2ppd x 42 years. Smoking Status Reviewed: 11/13/19 Former Cigarette Smoker quit Jul 2017 1ppd-2ppd x 42 years. ETOH Use Denies alcohol use Recreational Drug Use Denies Drug Use Tobacco Use Start: Unknown End: Patient is a former jul 2017 42 years X Unknown smoker 2 ppd Exercise Type/Frequency Exercises regularly Sun Exposure Does not use sunscreen Seat Belt/Car Seat Seat Belt Use - Yes Allergies, Adverse Reactions, Alerts Active Allergies Reaction Severity Comments Date Zofran hives 01/18/2017 Levaquin vomiting 07/08/2017 Metformin Diarrhea Moderate 09/08/2019 Medications Active Medications SIG Qnty Indications Ordering Date Provider Brilinta Take One Tablet By Unknown 10/31/2019 90mg Mouth Twice A Day Tablets Losartan Potassium 1 tablet daily for Unknown 10/30/2019 high blood pressure 25mg Tablets Levemir 80 units subcutaneous E11.69 Unknown 10/30/2019 100Unit/ML daily Solution Methimazole 1 tablet by mouth Unknown 10/30/2019 5mg daily Tablets Novolog Flexpen 20 units before 45ml E11.69 [facility], 10/12/2019 dinner Clay Hinton 100Unit/ML Solution Pen-Inject Albuterol Sulfate 1-2 puffs inhaled Unknown 05/14/2019 HFA every 6 hours as 108(90Base) needed for shortness mcg/Act Aerosol of breath Incruse Ellipta Inhale One puff By 30units J44.9 [facility], 05/14/2019 Mouth Every Day Clay Hinton 62.5mcg/Inh Aerosol Mineral Oil place 4-drops in ears 30units L20.9 [facility], 04/13/2019 Oil every week for Mo Hinton. excessive cerumen and dry ear canals as needed Onetouch Delica use with diabetic 100units [facility], 01/30/2019 Lancets Fine 30G supplies five times a Karolyn HintonO. day as directed 30G [facility] BD Uf Mini Pen Use Up To 6 Times 400units [facility], 01/27/2019 Needle [id number] Daily as Directed For Joan Hinton.Natalie. Insulin Administration Onetouch Verio use 1-4 times daily 1units [facility], 01/27/2019 as directed Clay Hinton w/Device Kit Onetouch Verio test 1-4 daily as 200units E11.65 [facility], 01/27/2019 directed Clay Hinton Strips Aspirin Children's 1 by mouth daily Unknown 11/23/2018 81mg Pantoprazole Sodium Take One Tablet By 60tabs [facility], 05/26/2018 Mouth Twice A Day Clay Hinton 40mg Tablets DR Chun give 2 tablets by Unknown 05/26/2018 325mg mouth [id number] as Tablets needed for pain / otc Atorvastatin 1 by mouth every Unknown 08/20/2017 Calcium evening 80mg Tablets Docusate Sodium 1 cap by mouth twice Unknown 08/20/2017 a day as needed for 100mg Capsules constipation Furosemide Take Two Tablets By 180tabs [facility], 08/20/2017 20mg Mouth Every Day Clay Hinton Tablets Lancets use as directed for 200units E11.65 [facility], 05/20/2017 [place] diabetic testing Clay Hinton Safety Misc BD Pen or appropriate 400units [facility], 05/20/2017 Needle/Mini/Ultrafi needles for Clay Hinton ne/31G X 3/16" lantus/Novolog pen. 31G use up to 6/day, as X 5 mm Misc directed, for insulin administration Gabapentin 1 by mouth daily 90caps [facility], 300mg Clay Hinton Capsules History Medications Neomycin/Polymyxin/Dexamethasone 1 drop 4 times a 5ml [facility], 2018 - 3.5-47284-3.1 day left eye for Clay Hinton 10/20/2019 Suspension 5 days Tobradex 1 left eye three 5ml H10 [facility], 10/20/2019 - 0.3-0.1% Suspension times a day for .89 Clay Hinton 10/25/2019 5 days or 1 day after symptoms resolve. Novolog Mix 70/30 Prefilled Flexpen 30u in in the 45ml E11 [facility], 2018 - (70-30)100Unit/ML morning .69 Karolyn HintonOWilfredo 11/12/2019 Supn Fluconazole 2 tabs on day 1 15tabs [facility], 07/21/2019 - 200mg Tablets the 1 tab daily Karolyn HintonOWilfredo 08/04/2019 for 2 weeks. Stop atorvastatin while taking this medication. Immunizations CPT Code Status Date Vaccine Lot # [id number] Given 07/19/2019 Influenza Virus Vaccine, Quadrivalent, Split, [id number] Preservative Free [id number] Given 09/01/2018 Influenza Virus Vaccine, Quadrivalent, Split, [id number] Preservative Free 62333 Given 07/08/2017 Influenza Virus Vaccine, Quadrivalent, Split, [id number] Preservative Free 31097 Given 01/18/2017 Adacel or Boostrix, TDaP [id number] Given 11/30/2016 Influenza Virus Vaccine, Quadrivalent, Split, Im Use U-Pneum Given 01/18/2009 Pneumococcal,Unspecified Vital Signs Date Vital Result Comment 11/13/2019 10:49am BP Systolic 142 mmHg BP Diastolic 84 mmHg Height 64 inches 5'4" Weight 196.00 lb BMI (Body Mass Index) 33.6 kg/m2 10/20/2019 12:18pm BP Systolic 116 mmHg BP Diastolic 70 mmHg Body Temperature 97.6 F Results Test Acquired Date Facility Test Result H/L Range Note Laboratory test 10/28/2019 [facility] Troponin- 0.11 ng/mL Critical < 0.03 1 finding [phone] I (TnI) high CBC Auto Diff 10/27/2019 [facility] White 10.2 Normal 3.5-10.8 [phone] Blood 10^3/uL Count Red Blood Count 4.56 10^6/uL Normal 3.70-4.87 Hemoglobin 13.3 g/dL Normal 12.0-16.0 Hematocrit 39 % Normal 35-47 Mean Corpuscular Volume 85 fL Normal 80-97 Mean Corpuscular Hemoglobin 29 pg Normal 27-31 Mean Corpuscular HGB Conc 34 g/dL Normal 31-36 Red Cell Distribution Width 15 % Normal 10-15 Platelet Count 246 10^3/uL Normal 150-450 Mean Platelet Volume 9.0 fL Normal 7.4-10.4 Abs Neutrophils 8.3 10^3/uL High 1.5-7.7 Abs Lymphocytes 1.3 10^3/uL Normal 1.0-4.8 Abs Monocytes 0.4 10^3/uL Normal 0-0.8 Abs Eosinophils 0.2 10^3/uL Normal 0-0.6 Abs Basophils 0.1 10^3/uL Normal 0-0.2 Abs Nucleated RBC 0.0 10^3/uL Granulocyte % 81.2 % Lymphocyte % 12.5 % Monocyte % 3.8 % Eosinophil % 1.7 % Basophil % 0.8 % Nucleated Red Blood Cells % 0.1 Comp Metabolic Panel 10/27/2019 [facility] Sodium 133 mmol/L Low 135- 145 [phone] Potassium 3.9 mmol/L Normal 3.5-5.0 Chloride 98 mmol/L Low 101-111 Co2 Carbon Dioxide 24 mmol/L Normal 22-32 Anion Gap 11 mmol/L Normal 2-11 Glucose 414 mg/dL High 70-100 Blood Urea Nitrogen 40 mg/dL High 6-24 Creatinine 1.61 mg/dL High 0.51-0.95 BUN/Creatinine Ratio 24.8 High 8-20 Calcium 9.3 mg/dL Normal 8.6-10.3 Total Protein 7.4 g/dL Normal 6.4-8.9 Albumin 3.8 g/dL Normal 3.2-5.2 Globulin 3.6 g/dL Normal 2-4 Albumin/Globulin Ratio 1.1 Normal 1-3 Total Bilirubin 0.50 mg/dL Normal 0.2-1.0 Alkaline Phosphatase 201 U/L High 34-104 Alt 12 U/L Normal 7-52 Ast 13 U/L Normal 13-39 Egfr Non- 33.2 >60 Egfr 40.2 >60 2 Laboratory test 10/27/2019 [facility] Magnesium 2.2 mg/dL Normal 1.9- 2.7 finding [phone] Lipase 18 U/L Normal 11.0-82.0 Troponin-I (TnI) 0.04 ng/mL Critical high <0.03 3 C Reactive Protein 18.58 mg/L High <8.01 TSH (Thyroid Stim Horm) 0.09 mcIU/mL Low 0.34-5.60 B-Type Natriuretic Peptide BNP 120 pg/mL High <=100 T3 Free 4.50 pg/mL High 2.5-3.9 Free T4 (Free Thyroxine) 1.41 ng/dL High 0.61-1.12 Urinalysis Profile 10/27/2019 [facility] Urine Color Yellow [phone] Urine Appearance Clear Urine Specific Capitan 1.013 Normal 1.010-1.030 Urine pH 6.0 Normal 5-9 Urine Urobilinogen Negative Negative Urine Ketones Negative Negative Urine Protein 1+(30 mg/dL) Abnormal Negative Urine Leukocytes Negative Negative Urine Blood Negative Negative Urine Nitrite Negative Negative Urine Bilirubin Negative Negative Urine Glucose 3+(>=500 mg/dL) Abnormal Negative Urine White Blood Cell 1+(6-10/hpf) Abnormal Absent Urine Red Blood Cell Trace(0-2/hpf) Absent Urine Bacteria Absent Absent Urine Squamous Epithelial Cell Present Abnormal Absent Urine Culture And 10/27/2019 [facility] Urine Culture SEE RESULT 4 Sensitivities [phone] BELOW CBC Auto Diff 09/15/2019 [facility] White Blood 11.5 10^3/uL High 3.5 -10 [phone] Count .8 Red Blood Count 4.67 10^6/uL Normal 3.70-4.87 [...] % Nucleated Red Blood Cells % 0.0 Laboratory test finding 09/15/2019 [facility] Lipase 12 U/L Normal 11.0-82.0 [phone] C Reactive Protein 22.47 mg/L High <8.01 Comp Metabolic Panel 09/15/2019 [facility] Sodium 135 mmol/L Normal 135-145 [phone] Potassium 4.2 mmol/L Normal 3.5-5.0 Chloride 102 [...] Egfr Non- 42.5 >60 Egfr 51.5 >60 5 Laboratory test 09/15/2019 [facility] Lactic Acid 1.5 mmol/L Normal 0.5-2.0 6 finding [phone] Urine 09/08/2019 [facility] Ur Microalbumin 26.1 mg/L Microalbumin [phone] (mg/L) Random Urine Creatinine 26.09 mg/dL Urine Microalbumin/Creatinine 100.0 High <31 Laboratory test 09/08/2019 In House Hemoglobin A1c 11.8 finding Laboratory test 08/20/2019 [facility] Troponin-I (TnI) 0.03 ng/mL < 0.04 7 finding [phone] Comp Metabolic 08/20/2019 [facility] Sodium 130 mmol/L Low 135-145 Panel [phone] Potassium 4.8 mmol/L Normal 3.5-5.0 Chloride 96 [...] Egfr Non- 31.2 >60 Egfr 37.8 >60 8 Glucose 617 mg/dL Critical high 70-100 9 Inr/Protime 08/20/2019 [facility] Inr 0.88 Normal 0.82-1.09 10 [phone] CBC Auto Diff 08/20/2019 [facility] White Blood 7.4 10^3/uL Normal 3.5-10.8 [phone] Count Red Blood Count 4.74 10^6/uL Normal [...] Red Blood Cells % 0.1 Laboratory 08/20/2019 [facility] Troponin-I 0.02 <0.04 11 test finding [phone] (TnI) ng/mL Laboratory 08/20/2019 [facility] Point of Care > 444 Critical 70-100 12 test finding [phone] Glucose mg/dL high Laboratory 08/20/2019 [facility] Glucose 495 High 70-100 test finding [phone] Confirmatory mg/dL Laboratory 08/20/2019 [facility] Point of Care 432 Critical 70-100 13 test finding [phone] Glucose mg/dL high Laboratory 08/20/2019 [facility] Point of Care 351 High 70-100 14 test finding [phone] Glucose mg/dL CBC Auto Diff 07/19/2019 [facility] White Blood 9.8 Normal 3.5-10.8 [phone] Count 10^3/uL Red Blood Count 4.44 10^6/uL Normal 3.70-4.87 [...] % Nucleated Red Blood Cells % 0.2 Comp Metabolic Panel 07/19/2019 [facility] Sodium 136 mmol/L Normal 135-145 [phone] Potassium 5.0 mmol/L Normal 3.5-5.0 Chloride 96 [...] Egfr Non- 27.4 >60 Egfr 33.2 >60 15 Urinalysis Profile 07/19/2019 [facility] Urine Color Yellow [phone] Urine Appearance Cloudy Urine Specific [place] 1.014 Normal 1.010-1.030 Urine pH 5.0 Normal [...] Abnormal Absent Urine Yeast Present Abnormal Absent Urine Culture And 07/19/2019 [facility] Urine Culture SEE RESULT 16 Sensitivities [phone] BELOW Laboratory test 07/19/2019 [facility] Erythrocyte Sed 61 mm/Hr High 0 -29 finding [phone] Rate C Reactive Protein 18.39 mg/L High <8.01 1 Result TnIDx:0.11 Called to [id number] at: 02:17:43 by:[id number] Read back by: [id number] Troponin-I testing on Plasma Separator Tubes (PST) has a known false positive rate of 0.20-0.40%. All positive troponins reflex immediately to secondary confirmatory testing. Using the [employer] DxI 800 Access Immunoassay systems, the 99th percentile upper reference limit was demonstrated to be < 0.03 ng/mL. 2 Because ethnic data is not always [...] 5 Kidney failure <15 (or dialysis) 3 Result TnIDx:0.04 Called to [id number] at: 23:33:09 by:[id number] Read back by: [id number] Troponin-I testing on Plasma Separator Tubes (PST) has a known false positive rate of 0.20-0.40%. All positive troponins reflex immediately to secondary confirmatory testing. Using the [employer] DxI 800 Access Immunoassay systems, the 99th percentile upper reference limit was demonstrated to be < 0.03 ng/mL. 4 SEE RESULT BELOW Name: GABRIEL ZAVALA : [address]: Dianna Calvillo MD Acct: [id number] Unit: [id number] AGE: 54 Location: [place] [address] Re10/28/19 SEX: F Status: ADM IN SPEC: [id number] KYRA: 10/28/19-[address] [facility] [address]: Jesse PERKINS REQ: [id number] RECD: 10/28/19 STATUS: MJ GRIJALVA DR: [facility] Jamaal Garcia DO _ SOURCE: URINE SPDESC: ORDERED: Urine Culture Procedure Result Reported Site Urine Culture Final 10/29/19- 1154 ML Organism 1 AEROCOCCUS URINAE Orient Count >100,000 (Many) CFU/ML Organism 2 NORMAL DICKSON Orient Count 1-10,000 (Few) CFU/ML Aerococcus isolates are too fastidious for routine susceptibility studies. Aerococcus are usually susceptible to penicillin, amoxicillin, piperacillin, cefipime, rifampin and vancomycin. Moderate to good activity occurs with the quinolones, tetracyclines and erythromycin. ([employer] and Textbook of Diagnostic Microbiology 6th Ed. 2006, p. 705-6.) * ML - Main Lab . END OF REPORT DEPARTMENT OF PATHOLOGY, [address] [place] [address] Mg Ruff M.D. Director [facility] # [id number] 5 Because ethnic data is not always readily [...] 15-29 5 Kidney failure <15 (or dialysis) 6 [facility] Severe Sepsis and Septic Shock Management Bundle Measure requires all lactic acids initially measuring >2.0 mmol/L be repeated. 7 Troponin-I testing on Plasma Separator Tubes (PST) has a known false positive rate of 0.20-0.40%. All positive troponins reflex immediately to secondary confirmatory testing. Using the [employer] DxI 800 Access Immunoassay systems, the 99th percentile upper reference limit was demonstrated to be < 0.03 ng/mL. 8 Because ethnic data is not always [...] 5 Kidney failure <15 (or dialysis) 9 Critical Result [id number] Called to [id number] at: 17:29:14 by:[id number] Read back by:[id number] 10 Standard intensity warfarin therapeutic range: 2.0-3.0 High intensity warfarin therapeutic range: 2.5-3.5 11 Troponin-I testing on Plasma Separator Tubes (PST) has a known false positive rate of 0.20-0.40%. All positive troponins reflex immediately to secondary confirmatory testing. Using the [employer] DxI 800 Access Immunoassay systems, the 99th percentile upper reference limit was demonstrated to be < 0.03 ng/mL. 12 Punch Box Tender: [id number] 13 Punch Box Tender: [id number] 14 Punch Box Tender: [id number] 15 Because ethnic data is not always [...] 5 Kidney failure <15 (or dialysis) 16 SEE RESULT BELOW Name: GABRIEL ZAVALA : [address]: Jamaal Garcia DO Acct: [id number] Unit: [id number] AGE: 54 Location: [facility] Re07/19/19 SEX: F Status: REG REF SPEC: [id number] KYRA: 07/19/19-[address]: Jamaal Garcia DO REQ: [id number] RECD: 07/19/19 STATUS: COMP _ SOURCE: URINE SPDESC: ORDERED: Urine Culture Procedure Result Reported Site Urine Culture Final 07/20/19- 1608 ML No growth of clinically significant organisms * ML - Main Lab . END OF REPORT DEPARTMENT OF PATHOLOGY, [address] [place] [address] Mg Ruff M.D. Director [facility] # [id number] Procedures Date Code Description Status 10/10/2019 099607097 Diabetic Retinal Eye Exam Completed 10/06/2019 72181 X-Ray Elbow Three Views Completed 09/08/2019 [id number] Diabetic Foot Exam Completed 07/19/2019 07549 Electrocardiogram Complete Completed 02/15/2019 [id number] Mammogram Completed Medical Devices Description No Information Available Encounters Type Date Location Provider Dx Diagnosis Office Visit 11/13/2019 Main Office Jamaal Garcia, E11.69 Type 2 diabetes 10:00a D.O. 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 mellitus with other specified complication E11.65 Type 2 diabetes mellitus with hyperglycemia I10 Essential (primary) hypertension Z79.4 detention (current) use of insulin N18.3 Chronic kidney disease, stage 3 (moderate) I70.234 Athscl wiyot art of right leg w ulcer of heel and midfoot H10.89 Other conjunctivitis Office Visit 10/12/2019 11:45a Main Office Jamaal Garcia, E11.69 Type 2 diabetes D.O. mellitus with other specified complication M77.11 Lateral epicondylitis, right elbow M25.521 Pain in right elbow E11.65 Type 2 diabetes mellitus with hyperglycemia I10 Essential (primary) hypertension Z79.4 detention (current) use of insulin N18.3 Chronic kidney disease, stage 3 (moderate) I70.234 Athscl wiyot art of right leg w ulcer of [...] with hyperglycemia I10 Essential (primary) hypertension Z79.4 detention (current) use of insulin N18.3 Chronic kidney disease, stage 3 (moderate) I70.234 Athscl wiyot art of right leg w ulcer of heel and midfoot J44.9 Chronic obstructive pulmonary disease, unspecified F17.211 Nicotine dependence, cigarettes, in remission E11.69 Type 2 diabetes mellitus with other specified complication I50.32 Chronic diastolic (congestive) heart failure Office Visit 07/19/2019 3:00p Main Office Jamaal Garcia, E11.65 Type 2 diabetes D.O. 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 specified complication 11/13/2019 E11.65 Type 2 diabetes mellitus with hyperglycemia Jamaal Garcia D.O. 11/13/2019 I10 Essential (primary) hypertension Jamaal Garcia D.O. 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 11/13/2019 N18.3 Chronic kidney disease, stage 3 (moderate) Jamaal Garcia D.O. 11/13/2019 I70.234 Atherosclerosis of wiyot arteries of right Jamaal Garcia D.O. leg with ulcerat 11/13/2019 R07.89 Other chest pain Jamaal Garcia D.O. 11/13/2019 R06.02 Shortness of breath Jamaal Garcia D.O. 11/13/2019 J44.9 Chronic obstructive pulmonary disease, Jamaal Garcia D.O. unspecified 11/13/2019 F17.211 Nicotine dependence, cigarettes, in Jamaal Garcia D.O. remission 11/13/2019 I50.32 Chronic diastolic (congestive) heart failure Jamaal Garcia D.O. 11/13/2019 I21.9 Acute myocardial infarction, unspecified Jamaal Garcia D.O. 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 10/20/2019 E11.69 Type 2 diabetes mellitus with other Jamaal Garcia D.O. specified complication 10/20/2019 E11.65 Type 2 diabetes mellitus with hyperglycemia Jamaal Garcia D.O. 10/20/2019 I10 Essential (primary) hypertension Jamaal Garcia D.O. 10/20/2019 Z79.4 detention (current) use of insulin Jamaal Garcia D.O. 10/20/2019 N18.3 Chronic kidney disease, stage 3 (moderate) Jamaal Garcia D.O. 10/20/2019 I70.234 Atherosclerosis of wiyot arteries of right Jamaal Garcia D.O. leg with ulcerat 10/20/2019 H10.89 Other conjunctivitis Jamaal Garcia D.O. 10/12/2019 E11.69 Type 2 diabetes mellitus with other Jamaal Garcia D.O. specified complication 10/12/2019 M77.11 Lateral epicondylitis, right elbow Jamaal Garcia D.O. 10/12/2019 M25.521 Pain in right elbow Jamaal Garcia D.O. 10/12/2019 E11.65 Type 2 diabetes mellitus with hyperglycemia Miguel AngelbarbJamaal D.O. 10/12/2019 I10 Essential (primary) hypertension Jamaal Garcia D.O. 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 10/12/2019 N18.3 Chronic kidney disease, stage 3 (moderate) Jamaal Garcia D.O. 10/12/2019 I70.234 Atherosclerosis of wiyot arteries of right Jamaal Garcia D.O. leg with ulcerat 10/12/2019 J44.9 Chronic obstructive pulmonary disease, RadhaJamaal D.O. unspecified 10/12/2019 F17.211 Nicotine dependence, cigarettes, in RadhaJamaal D.O. remission 10/12/2019 I50.32 Chronic diastolic (congestive) [...] (primary) hypertension Jamaal Garcia D.O. 09/08/2019 Z79.4 detention (current) use of insulin Jamaal Garcia D.O. 09/08/2019 N18.3 Chronic kidney disease, stage 3 (moderate) Jamaal Garcia D.O. 09/08/2019 I70.234 Atherosclerosis of wiyot arteries of right Radha Jamaal D.O. leg with ulcerat 09/08/2019 J44.9 Chronic obstructive pulmonary disease, Miguel Angelbarb Jamaal D.O. unspecified 09/08/2019 F17.211 Nicotine dependence, cigarettes, in RadhaJamaal D.O. remission 09/08/2019 E11.69 Type 2 diabetes mellitus with other Jamaal Garcia D.O. specified complication 09/08/2019 I50.32 Chronic diastolic (congestive) heart failure Jamaal Garcia D.O. 07/19/2019 E11.65 Type 2 diabetes mellitus with hyperglycemia Jamaal Garcia D.O. 07/19/2019 I10 Essential (primary) hypertension Jamaal Garcia D.O. 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 07/19/2019 N18.3 Chronic kidney disease, stage 3 (moderate) Jamaal Garcia D.O. 07/19/2019 I70.234 Atherosclerosis of wiyot arteries of right Jamaal Garcia D.O. leg with ulcerat 07/19/2019 J44.9 Chronic obstructive pulmonary disease, Jamaal Garcia D.O. unspecified 07/19/2019 Z23 Encounter for immunization Jamaal Garcia D.O. 06/15/2019 E11.65 Type 2 diabetes mellitus with hyperglycemia Jamaal Garcia D.O. 06/15/2019 I10 Essential (primary) hypertension Jamaal Garcia D.O. 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 06/15/2019 M54.5 Low back pain Jamaal Garcia D.O. 06/15/2019 M25.551 Pain in right hip Jamaal Garcia D.O. 06/15/2019 M79.604 Pain in right leg Jamaal Garcia D.O. 06/15/2019 N18.3 Chronic kidney disease, stage 3 (moderate) Jamaal Garcia D.O. 06/15/2019 I70.234 Atherosclerosis of wiyot arteries of right Jamaal Garcia D.O. leg with ulcerat 06/15/2019 J44.9 Chronic obstructive pulmonary disease, Jamaal Garcai D.O. unspecified 06/15/2019 S90.812A Abrasion, left foot, initial encounter Jamaal Garcia D.O. 06/15/2019 E11.628 Type 2 diabetes mellitus with other skin Jamaal Garcia D.O. complications Plan of Treatment Future Appointment(s):01/12/2020 11:00 am - Jamaal Garcia D.O. at Main [id number]/13/2019 - Jamaal Garcia D.O.E11.69 Type 2 diabetes mellitus with other specified complicationComments:Discussed transition to Dr. Ramírez for diabetes management. Reviewed Hospital notes and testing with Demi. Will continue to manage primary care.Follow up:2 months DME11.65 Type 2 diabetes mellitus with heovnsnsozslfJ35 Essential (primary) kuuxvpngmdedI72.4 detention ( current) use of uykierfC67.3 Chronic kidney disease, stage 3 (moderate)I70.234 Atherosclerosis of [place] arteries of right leg with xilxcpmF69.89 Other chest painR06.02 Shortness of vqsdosY05.9 Chronic obstructive pulmonary disease, wbdgbvvpfdxG65.211 Nicotine dependence, cigarettes, in lejpszykeC58.32 Chronic diastolic (congestive) heart jtoeqgnF27.9 Acute myocardial infarction, zhfijeypezgB90.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 multinodular goiter without thyrotoxic crisis or xkkglC60.33 Body mass index (BMI) 33.0-33.9, adult Goals 11/13/2019 - Jamaal Garcia D.O.E11.65 Type 2 diabetes mellitus with hyperglycemiaHemoglobin A1C (average glucose) < 7.0 - this is checked every 3 months. Avoid/limit carbohydrates: foods like Potatoes, wheat (bread,pasta, cookies,crackers,pretzles,dough), Rice, corn, and sugar limit sweetened beverages. Check eyes yearly with a dialated exam with an digital data analyst Check fordiabetic kidney disease yearly with urine microalbumin test Check your feet by looking at all sidesdaily; once a year at least have them checked by a doctor. Functional Status Description No Information Available Mental Status Description No Information Available Referrals Refer to Reason for Referral Status Appt Date [facility] consider alternative options for colon Sent 2019 cancer screening without sedation. + fit test. Consult and Treat Count includes the [facility] [place] [address] [phone] [facility] left foot ulcer with scabbing in similar area Sent to prior foot ulcer. nonpainful Consult and Treat [facility] [address] [place] [address] [phone] Femi Degroot MD right LE wound with abnormal ABIs Consult and Closed 01/2019 Treat [facility] [address] [facility]; [address] [place], [place] [address] [phone]
--- OUTSIDE RECORDS SUMMARY | 2019-11-23 10:38 | XMS REPORT | Continuity of Care Document ---
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 Examiner [phone] Medicine Problems Active Problems Provider Date Old myocardial infarction Tomas Grimaldo DO [facility] Onset: 02/18/2017 Atherosclerosis of [place] arteries of Kingsley Shaw MD, [facility], Onset: right leg with ulceration of heel and FSCAI midfoot Atherosclerosis of [place] arteries of Kingsley Shaw MD, [facility], Onset: left leg with ulceration of other part FSCAI of foot Chronic obstructive lung disease Winifred Ahumada MD Onset: 05/19/2017 Encounter for screening for malignant Winifred Ahumada MD Onset: 05/19/2017 neoplasm of respiratory organs Nicotine dependence, cigarettes, with Winifred Ahumada MD Onset: 05/19/2017 other nicotine-induced disorders Chronic diastolic heart failure Kingsley Shaw MD, [facility], Onset: 07/01/2017 FSCAI Atherosclerosis of [place] arteries of Kingsley Shaw MD, [facility], Onset: 04/2017 right leg with ulceration of other FSCAI part of foot Chest pain MADDIE Schulz Onset: 05/26/2018 Gastroesophageal reflux disease MADDIE Schulz Onset: 05/26/2018 Type 2 diabetes mellitus MADDIE Schulz Onset: 05/26/2018 Long-term current use of insulin MADDIE Schulz Onset: 05/26/2018 Hyperlipidemia MADDIE Schulz Onset: 05/26/2018 Intermittent claudication due to Femi G. Politi, M.D. Onset: 06/28/2019 atherosclerosis of [place] artery of limb Atherosclerosis of arteries of the Femi Degroot M.D. Onset: 06/28/2019 extremities Social History Type Date Description Comments Sex Unknown Tobacco Use Start: Unknown Former Cigarette Smoker quit in Aug 2017 End: Unknown Smoking Status Reviewed: 11/02/19 Former Cigarette Smoker quit in Aug 2017 [...] Grimaldo, 2016 80mg day DO FACC Tablets Brilinta 1 tab by mouth Unknown 90mg Tablets twice a day Methimazole 5mg by mouth Unknown 5mg Tablets once daily Albuterol Sulfate HFA every 4 hours as Unknown needed 108(90Base) mcg/Act Aerosol Incruse Ellipta inhale one puff Unknown by mouth every 62.5mcg/Inh Aerosol day Levemir Flextouch 80 units every Unknown morning 100Unit/ML Solution Pen-Inject Pantoprazole Sodium 1 by mouth every Unknown 40mg day Solution Rec Acetaminophen ER 1 by mouth twice Unknown 650mg a day prn Tablets ER Tums 2 as needed for Unknown 500mg Chewtabs acid stomach Carvedilol 1 by mouth twice Unknown 6.25mg Tablets a day Stool Softener take 1 tab by 120caps Tomas Grimaldo, 100mg mouth 2 times a DO FACC Capsules day as needed Humalog 10 units with Unknown 100Unit/ML meals- plus Solution Cartridge sliding scale Aspir-81 1 by mouth every Unknown 81mg Tablets DR day Gabapentin 1 by mouth once Unknown 300mg Capsules a day, as needed Medications Administered in Office Medication SIG Qnty Indications Ordering Provider Date Inj, Regadenoson, 0.1 MG Tomas Grimaldo, DO [facility] 08/30/2019 Injection Technetium TC 99M Tomas Grimaldo, DO [facility] 08/30/2019 Tetrofosmin, Per Unit Dose Up To 40 Millicuries Injection Technetium TC 99M Tomas SWilfredo Grimaldo, DO [facility] 08/30/2019 Tetrofosmin, Per Unit Dose Up To 40 Millicuries Injection Inj, Regadenoson, 0.1 MG Tomas Grimaldo, DO [facility] 04/25/2018 Injection Technetium TC 99M Tomas Grimaldo, DO [facility] 04/25/2018 Tetrofosmin, Per Unit Dose Up To 40 Millicuries Injection Inj, Regadenoson, 0.1 MG Tomas Grimaldo, DO [facility] 03/31/2017 Injection Technetium TC 99M Tomas S. Dillan, DO [facility] 03/31/2017 Tetrofosmin, Per Unit Dose Up To 40 Millicuries Injection Immunizations Description No Information Available Vital Signs Date Vital Result Comment 11/02/2019 1:20pm Height 63 inches 5'3" Weight 199.00 lb w/ shoes Heart Rate 81 /min BP Systolic Sitting 92 mmHg BP Diastolic Sitting 53 mmHg BMI (Body Mass Index) 35.2 kg/m2 09/05/2019 10:28am Height 63 inches 5'3" Weight 194.00 lb with shoes Heart Rate 73 /min BP Systolic Sitting 100 mmHg LA BP Diastolic Sitting 66 mmHg LA BP Systolic Standing 96 mmHg LA BP Diastolic Standing 62 mmHg LA BMI (Body Mass Index) 34.4 kg/m2 Ejection Fraction 40% Echo 08/29/19 Results Description No Information Available Procedures Date Code Description Status 10/28/2019 74428 EKG, Interpretation Only Completed 08/30/2019 92737 Stress Test Completed 08/30/2019 37676 Myocardial Perfusion Imaging Tomographic (Spect) Completed Multiple Studies 08/29/2019 53811 ECHO Transthoracic, Real-Time 2D With Doppler And Color Completed Flow 08/29/2019 35393 ECHO Transthoracic, Real-Time 2D With Doppler And Color Completed Flow 07/21/2019 12543 EKG Tracing & Interpretation Completed 10/13/2013 [id number] Mammogram Completed Medical Devices Description No Information Available Encounters Type Date Location Provider Dx Diagnosis Office Visit 11/02/2019 [facility] Hector Ramírez MD E11.69 Type 2 diabetes 1:40p [facility] mellitus with other specified complication 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 I50.40 Unsp combined [facility] [place] Grimaldo, DO systolic and FACC diastolic (congestive) hrt fail E11.69 Type 2 diabetes mellitus with other specified complication I73.9 Peripheral vascular disease, unspecified I10 Essential (primary) hypertension E78.5 Hyperlipidemia, unspecified F17.201 Nicotine dependence, unspecified, in remission I45.19 Other right bundle-branch block I63.9 Cerebral infarction, unspecified N18.9 Chronic kidney disease, unspecified Z95.2 Presence of prosthetic heart valve J44.9 Chronic obstructive pulmonary disease, unspecified Office Visit 07/21/2019 10:00a [facility] Tomas S. I95.9 Hypotension, Of [place] Grimaldo, DO unspecified FACC R07.9 Chest pain, unspecified I50.40 Unsp combined [...] Office Visit 06/28/2019 11:15a [facility] Femi Luong I70.223 Athscl [place] [facility] Sonja Degroot M.D. arteries of extrm w rest pain, bilateral legs I70.213 Athscl [place] arteries of extrm w intrmt sandi, bi legs Office Visit 05/14/2019 8:36a [facility] Ileana Yeung, I50.23 Acute on chronic Assoc,pc N.P. systolic Hospitalists (congestive) heart failure J44.1 Chronic obstructive pulmonary disease w (acute) exacerbation E11.9 Type 2 diabetes mellitus without complications Office Visit 05/13/2019 8:36a [facility] Edelmira R06.02 Shortness of Assoc,pc CHRISTIE Willingham breath Hospitalists R00.0 Tachycardia, unspecified I50.9 Heart failure, unspecified Assessments Date Code Description Provider 11/02/2019 E11.69 Type 2 diabetes mellitus with other Hector Ramírez MD specified complication 11/02/2019 E05.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 multinodular Hetcor Ramírez MD goiter without thyrotoxic crisis or storm 10/28/2019 R94.31 Abnormal electrocardiogram [ECG] [EKG] Nehemiah Hirsch M.D., [facility], [facility] 09/05/2019 I50.40 Unspecified combined systolic Tomas Grimaldo, DO FACC (congestive) and diastolic (congestive) heart failure 09/05/2019 E11.69 Type 2 diabetes mellitus with other Tomas Grimaldo, DO FACC specified complication 09/05/2019 I73.9 Peripheral vascular disease, Tomas Grimaldo, DO FACC unspecified 09/05/2019 I10 Essential (primary) hypertension Tomas Grimaldo DO FACC 09/05/2019 E78.5 Hyperlipidemia, unspecified Tomas Grimaldo, DO FACC 09/05/2019 F17.201 Nicotine dependence, unspecified, in Tomas Grimaldo DO FACC remission 09/05/2019 I45.19 Other right bundle-branch block Tomas Grimaldo DO FACC 09/05/2019 I63.9 Cerebral infarction, unspecified Tomas Grimaldo, DO FACC 09/05/2019 N18.9 Chronic kidney disease, unspecified Tomas Grimaldo, DO FACC 09/05/2019 Z95.2 Presence of prosthetic heart valve Tomas Grimaldo, DO FACC 09/05/2019 J44.9 Chronic obstructive pulmonary disease, Tomas Grimaldo, DO FACC unspecified 08/30/2019 R07.9 Chest pain, unspecified Tomas SWilfredo Grimaldo, DO FACC 08/29/2019 I95.9 Hypotension, unspecified Tomas S. Dillan, DO FACC 08/29/2019 I95.9 Hypotension, unspecified Ica ECHO Schedule 07/21/2019 I95.9 Hypotension, unspecified Tomas SWilfredo Grimaldo, DO FACC 07/21/2019 R07.9 Chest pain, unspecified Tomas Grimaldo, DO FACC 07/21/2019 I50.40 Unspecified combined systolic Tomas Grimaldo, DO [facility] (congestive) and diastolic (congestive) heart failure 07/21/2019 I73.9 Peripheral vascular disease, Tomas Grimaldo, DO FACC unspecified 07/21/2019 E11.69 Type 2 diabetes mellitus with other Tomas Grimaldo, DO FACC specified complication 07/21/2019 I10 Essential (primary) hypertension Tomas Grimaldo, DO FAC 07/21/2019 E78.5 Hyperlipidemia, unspecified Tomas Grimaldo, DO FACC 07/21/2019 F17.201 Nicotine dependence, unspecified, in Tomas Grimaldo, DO FAC remission 07/21/2019 I45.19 Other right bundle-branch block Tomas Grimaldo, DO FACC 07/21/2019 N18.9 Chronic kidney disease, unspecified Tomas SWilfredo Grimaldo, DO FACC 07/21/2019 I63.9 Cerebral infarction, unspecified Tomas Grimaldo, DO FACC 07/21/2019 J44.9 Chronic obstructive pulmonary disease, Tomas Grimaldo, DO FACC unspecified 06/28/2019 I70.223 Atherosclerosis of [place] arteries of Femi Degroot M.D. extremities with rest pain, bilateral legs 06/28/2019 I70.213 Atherosclerosis of [place] arteries of Femi Degroot M.D. extremities with intermittent claudication, bilateral legs 05/14/2019 I50.23 Acute on chronic systolic (congestive) Ileana Yeung N.P. heart failure 05/14/2019 J44.1 Chronic obstructive pulmonary disease Kiana Dominguez.Chuyita with (acute) exacerbation 05/14/2019 E11.9 Type 2 diabetes mellitus without Kiana Dominguez.P. complications 05/13/2019 R06.02 Shortness of breath Edelmira Willingham PA-C 05/13/2019 R00.0 Tachycardia, unspecified Edelmira Willingham PA-C 05/13/2019 I50.9 Heart failure, unspecified Edelmira Willingham PA-C Plan of Treatment Future Appointment(s):02/13/2020 11:00 am - Hector Ramírez MD at [facility]03/05/2020 10:20 am - Tomas Grimaldo DO FAC at [facility]11/02/2019 - Hector Ramírez MDE11.69 Type 2 diabetes mellitus with other specified complicationReferral:Uri Wallace DPM, PodiatristFollow up:3 monthsInstructions:1. Continue Levemir 80 units in the morning. 2. Increase Novolog to 15 units with meals. - add 5 units of Novolog if your blood is more than 200 - add 10 units of Novolog if your blood is more than 300- add 15 units of Novolog if your blood is more than 400 3. Continue methimazole 5mg daily. 4. Restart Jardiance. 5. Schedule an appointment with Dr. Wallace. 6. Return in 2 weeks for glucometer download and thryoid function tests. 7. Return 3 months for a follow-up visit.E05.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 multinodular goiter without thyrotoxic crisis or storm Functional Status Description No Information Available Mental Status Description No Information Available Referrals Refer to Reason for Referral Status Appt Date Uri Wallace DPM diabetic neuropathy Created [address] [phone]
--- OUTSIDE RECORDS SUMMARY | 2019-11-23 10:38 | XMS REPORT | Continuity of Care Document ---
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 [phone] Medicine Problems Active Problems Provider Date Old myocardial infarction Tomas Grimaldo DO [facility] Onset: 02/18/2017 Atherosclerosis of [place] arteries of Kingsley Shaw MD, [facility], Onset: right leg with ulceration of heel and FSCAI midfoot Atherosclerosis of [place] arteries of Kingsley Shaw MD, [facility], Onset: left leg with ulceration of other part FSCAI of foot Chronic obstructive lung disease Winifred Ahumada MD Onset: 05/19/2017 Encounter for screening for malignant Winifred Ahumada MD Onset: 05/19/2017 neoplasm of respiratory organs Nicotine dependence, cigarettes, with Winifred Ahumada MD Onset: 05/19/2017 other nicotine-induced disorders Chronic diastolic heart failure Kingsley Shaw MD, [facility], Onset: 07/01/2017 FSCAI Atherosclerosis of [place] arteries of Kingsley Shaw MD, [facility], Onset: 04/2017 right leg with ulceration of other FSCAI part of foot Chest pain MADDIE Schulz Onset: 05/26/2018 Gastroesophageal reflux disease MADDIE Schulz Onset: 05/26/2018 Type 2 diabetes mellitus MADDIE Schulz Onset: 05/26/2018 Long-term current use of insulin MADDIE Schulz Onset: 05/26/2018 Hyperlipidemia MADDIE Schulz Onset: 05/26/2018 Atherosclerosis of arteries of the Femi Degroot M.D. Onset: 06/28/2019 extremities Intermittent claudication due to Femi Degroot M.D. Onset: 06/28/2019 atherosclerosis of [place] artery of limb Social History Type Date Description Comments Sex Unknown Tobacco Use Start: Unknown Former Cigarette Smoker quit in Aug 2017 End: Unknown Smoking Status Reviewed: 11/21/19 Former Cigarette Smoker quit in Aug 2017 [...] Qnty Indications Ordering Date Provider Novolog Flexpen 10 units as base Hector Ramírez MD 11/16/2019 with sliding 100Unit/ML Solution scale for BS Pen-Inject over 200. Losartan Potassium 1 by mouth every 90tabs I50.22 Tomas Grimaldo, 2018 25mg day DO FACC Tablets Nitroglycerin 1 sl q5mins x3 25tabs R07.9 Tomas Grimaldo, 07/21/2019 0.4mg as needed for DO FACC Tablets Sub chest pain Furosemide 1 by mouth every Tomas Grimaldo, 06/27/2019 40mg Tablets day DO FACC Jardiance 10mg by mouth 30tabs Hector Ramírez MD 12/07/2018 10mg Tablets daily Atorvastatin Calcium 1 by mouth every 90tabs E78.5 Tomas Grimaldo, 2016 80mg day DO FACC Tablets Brilinta 1 tab by mouth 180tabs Tomas Grimaldo, 90mg Tablets twice a day DO FACC Methimazole 5mg by mouth Unknown 5mg Tablets once daily Albuterol Sulfate HFA every 4 hours as Unknown needed 108(90Base) mcg/Act Aerosol Incruse Ellipta inhale one puff Unknown by mouth every 62.5mcg/Inh Aerosol day Levemir Flextouch 45 units am and Unknown 45 units pm 100Unit/ML Solution Pen-Inject Pantoprazole Sodium 1 by mouth every Unknown 40mg day Solution Rec Acetaminophen ER 1 by mouth twice Unknown 650mg a day prn Tablets ER Tums 2 as needed for Unknown 500mg Chewtabs acid stomach Carvedilol 1 by mouth twice 180tabs Tomas Grimaldo, 6.25mg Tablets a day DO FACC Stool Softener take 1 tab by 120caps Tomas Grimaldo, 100mg mouth 2 times a DO FACC Capsules day as needed Aspir-81 1 by mouth every Unknown 81mg Tablets DR day Gabapentin 1 by mouth once Unknown 300mg Capsules a day, as needed Medications Administered in Office Medication SIG Qnty Indications Ordering Provider Date Inj, Regadenoson, 0.1 MG Tomas Grimaldo, DO [facility] 08/30/2019 Injection Technetium TC 99M Tomas Grimaldo, DO [facility] 08/30/2019 Tetrofosmin, Per Unit Dose Up To 40 Millicuries Injection Technetium TC 99M Tomas Grimaldo, DO [facility] 08/30/2019 Tetrofosmin, Per Unit Dose Up To 40 Millicuries Injection Inj, Regadenoson, 0.1 MG Tomas Grimaldo, DO [facility] 04/25/2018 Injection Technetium TC 99M Tomas Grimaldo, DO [facility] 04/25/2018 Tetrofosmin, Per Unit Dose Up To 40 Millicuries Injection Inj, Regadenoson, 0.1 MG Tomas Grimaldo, DO [facility] 03/31/2017 Injection Technetium TC 99M Tomas Grimaldo, DO [facility] 03/31/2017 Tetrofosmin, Per Unit Dose Up To 40 Millicuries Injection Immunizations Description No Information Available Vital Signs Date Vital Result Comment 11/21/2019 8:13am Height 63 inches 5'3" Weight 199.00 lb w/ shoes Heart Rate 100 /min L. radial, regular BP Systolic Sitting 138 mmHg Ra, reg cuff BP Diastolic Sitting 70 mmHg Ra, reg cuff BP Systolic Standing 140 mmHg Ra, reg cuff BP Diastolic Standing 74 mmHg Ra, reg cuff BMI (Body Mass Index) 35.2 kg/m2 11/02/2019 1:20pm Height 63 inches 5'3" Weight 199.00 lb w/ shoes Heart Rate 81 /min BP Systolic Sitting 92 mmHg BP Diastolic Sitting 53 mmHg BMI (Body Mass Index) 35.2 kg/m2 Results Description No Information Available Procedures Date Code Description Status 11/21/2019 57239 EKG Tracing & Interpretation Completed 10/29/2019 09739 ECHO Transthorasic Realtime 2D W Doppler & Color Flow Completed Hosp 10/28/2019 83303 EKG, Interpretation Only Completed 08/30/2019 33498 Stress Test Completed 08/30/2019 27815 Myocardial Perfusion Imaging Tomographic (Spect) Completed Multiple Studies 08/29/2019 33583 ECHO Transthoracic, Real-Time 2D With Doppler And Color Completed Flow 08/29/2019 20792 ECHO Transthoracic, Real-Time 2D With Doppler And Color Completed Flow 07/21/2019 82943 EKG Tracing & Interpretation Completed 10/13/2013 [id number] Mammogram Completed Medical Devices Description No Information Available Encounters Type Date Location Provider Dx Diagnosis Office Visit 11/02/2019 [facility] Hector Ramírez MD E11.65 Type 2 diabetes 1:40p [facility] mellitus with hyperglycemia 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 I50.40 Unsp combined Of Sonja Grimaldo DO systolic and FACC diastolic (congestive) hrt [...] pulmonary disease, unspecified Office Visit 07/21/2019 10:00a [facility] Tomas SWilfredo I95.9 Hypotension, Of Sonja Grimaldo, DO unspecified FACC R07.9 Chest pain, [...] Office Visit 06/28/2019 11:15a [facility] Femi G. I70.223 Aths[place] [facility] Of Sonja Degroot M.D. arteries of extrm w rest pain, bilateral legs I70.213 Athscl [place] arteries of extrm w intrmt sandi, bi legs Assessments Date Code Description Provider 11/21/2019 I25.119 Atherosclerotic heart disease of Tomas Grimaldo, DO FACC [place] coronary artery with unspecified angina pectoris 11/21/2019 E11.65 Type 2 diabetes mellitus with Tomas Grimaldo, DO FACC hyperglycemia 11/21/2019 E05.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 Tomas Grimaldo, DO FACC multinodular goiter without thyrotoxic crisis or storm 11/21/2019 I50.9 Heart failure, unspecified Tomas Grimaldo, DO FACC 11/21/2019 Z95.1 Presence of aortocoronary bypass Tomas Grimaldo DO FACC graft 11/21/2019 I10 Essential (primary) hypertension Tomas Grimaldo, DO FACC 11/21/2019 E78.5 Hyperlipidemia, unspecified Tomas Grimaldo, DO FACC 11/02/2019 E11.65 Type 2 diabetes mellitus with Hector Ramírez MD hyperglycemia 11/02/2019 E05.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 Hector Ramírez MD multinodular goiter without thyrotoxic crisis or storm 11/02/2019 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 10/30/2019 E05.90 Thyrotoxicosis, unspecified without Court Jimmy, D.O. thyrotoxic crisis or storm 10/30/2019 I50.9 Heart failure, unspecified Court Jimmy, D.O. 10/30/2019 J44[address] Jimmy, D.O. disease, unspecified 10/30/2019 E11.9 Type [address] Jimmy, D.O. complications 10/30/[address] Jimmy, D.O. 10/30/2019 Z95.1 Presence of aortocoronary bypass Court Jimmy, D.O. graft 10/29/2019 R07.9 Chest pain, unspecified Nehemiah Hirsch M.D., [facility], [facility] 10/29/2019 R07.9 Chest pain, unspecified Katerina Bales MD 10/29/2019 R79.89 Other specified abnormal findings of Katerina Bales MD blood chemistry 10/29/2019 I50.9 Heart failure, unspecified Katerina Bales MD 10/29/2019 E11.9 Type 2 diabetes mellitus without Katerina Bales MD complications 10/29/2019 J44.9 Chronic obstructive pulmonary Katerina Bales MD disease, unspecified 10/29/2019 Z95.1 Presence of aortocoronary bypass Katerina Bales MD graft 10/28/2019 R07.9 Chest pain, unspecified Nehemiah Hirsch M.D., [facility], [facility] 10/28/2019 R79.89 Other specified abnormal findings of Nehemiah Hirsch M.D., [facility], blood chemistry FASNJ 10/28/2019 I25.10 Atherosclerotic heart disease of Nehemiah Hirsch M.D., [facility], [place] coronary artery without angina FASNJ pectoris 10/28/2019 Z95.1 Presence of aortocoronary bypass Nehemiah Hirsch M.D., [facility], graft FASNJ 10/28/2019 R07.9 Chest pain, unspecified Trinity Puentes M.D. 10/28/2019 R94.31 Abnormal electrocardiogram [ECG] Nehemiah Hirsch M.D., FAC, [EKG] FASNC 10/28/2019 I21.4 Non-St elevation (Nstemi) myocardial Trinity Puentes M.D. infarction 10/28/2019 E03.9 Hypothyroidism, unspecified Trinity Puentes M.D. 10/28/2019 I50.9 Heart failure, unspecified Trinity Puentes M.D. 10/28/2019 E11.9 Type 2 diabetes mellitus without Trinity Puentes M.D. complications 09/05/2019 I50.40 Unspecified combined systolic Tomas Grimaldo, DO FACC (congestive) and diastolic (congestive) heart failure 09/05/2019 E11.69 Type 2 diabetes mellitus with other Tomas Grimaldo, DO [facility] specified complication 09/05/2019 I73.9 Peripheral vascular disease, Tomas Grimaldo, DO FACC unspecified 09/05/2019 I10 Essential (primary) hypertension Tomas Grimaldo DO [facility] 09/05/2019 E78.5 Hyperlipidemia, unspecified Tomas Grimaldo, DO FAC 09/05/2019 F17.201 Nicotine dependence, unspecified, in Tomas Grimaldo, DO [facility] remission 09/05/2019 I45.19 Other right bundle-branch block Tomas Grimaldo, DO FACC 09/05/2019 I63.9 Cerebral infarction, unspecified Tomas Grimaldo, DO FACC 09/05/2019 N18.9 Chronic kidney disease, unspecified Tomas Grimaldo, DO [facility] 09/05/2019 Z95.2 Presence of prosthetic heart valve Tomas Grimaldo DO FACC 09/05/2019 J44.9 Chronic obstructive pulmonary Tomas Grimaldo, DO FACC disease, unspecified 08/30/2019 R07.9 Chest pain, unspecified Tomas Grimaldo, DO FACC 08/29/2019 I95.9 Hypotension, unspecified Tomas Grimaldo, DO FACC 08/29/2019 I95.9 Hypotension, unspecified Ica ECHO Schedule 07/21/2019 I95.9 Hypotension, unspecified Tomas Grimaldo, DO FACC 07/21/2019 R07.9 Chest pain, unspecified Tomas Grimaldo, DO FACC 07/21/2019 I50.40 Unspecified combined systolic Tomas SWilfredo Dillan, DO FACC (congestive) and diastolic (congestive) heart failure 07/21/2019 I73.9 Peripheral vascular disease, Tomas Grimaldo, DO FACC unspecified 07/21/2019 E11.69 Type 2 diabetes mellitus with other Tomas SWilfredo Grimaldo, DO FACC specified complication 07/21/2019 I10 Essential (primary) hypertension Tomas SWilfredo Grimaldo, DO FACC 07/21/2019 E78.5 Hyperlipidemia, unspecified Tomas SWilfredo Dillan, DO FACC 07/21/2019 F17.201 Nicotine dependence, unspecified, in Tomas Sernano, DO FACC remission 07/21/2019 I45.19 Other right bundle-branch block Tomas SWilfredo Grimaldo, DO FACC 07/21/2019 N18.9 Chronic kidney disease, unspecified Tomas SWilfredo Grimaldo, DO FACC 07/21/2019 I63.9 Cerebral infarction, unspecified Tomas Rosalba Grimaldo, DO FACC 07/21/2019 J44.9 Chronic obstructive pulmonary Tomas Grimaldo, DO FACC disease, unspecified 06/28/2019 I70.223 Atherosclerosis of [place] arteries of Femi Degroot M.D. extremities with rest pain, bilateral legs 06/28/2019 I70.213 Atherosclerosis of [place] arteries of Femi Degroot M.D. extremities with intermittent claudication, bilateral legs Plan of Treatment Future Appointment(s):02/13/2020 11:00 am - Hector Ramírez MD at [facility]03/05/2020 10:20 am - Tomas Grimaldo DO FAC at [facility]11/21/2019 - Tomas Grimaldo DO FACCI25.119 Atherosclerotic heart disease of [place] coronary artery with unspecified angina pectorisNew Orders:Stress Test, Pharmacologic Nuclear (Lexiscan), Ordered: 11/21Follow up:f/u after stress testE11.65 Type 2 diabetes mellitus with ubynpbnunyptdU97.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 multinodular goiter without thyrotoxic crisis or dxjdnE83.9 Heart failure, zznsapamozrI18.1 Presence of aortocoronary bypass bmigwV60 Essential (primary) jlxjrmkivinpS09.5 Hyperlipidemia, unspecified Functional Status Description No Information Available Mental Status Description No Information Available Referrals Refer to Dr Reason for Referral Status Appt Date Uri Wallace DPM diabetic neuropathy Sent [address] [place] [address] [phone]
--- OUTSIDE RECORDS SUMMARY | 2019-11-23 10:38 | XMS REPORT | Continuity of Care Document ---
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 Medicine Problems Active Problems Provider Date Old myocardial infarction Tomas Grimaldo DO [facility] Onset: 02/18/2017 Atherosclerosis of [place] arteries of Kingsley Shaw MD, [facility], Onset: right leg with ulceration of heel and FSCAI midfoot Atherosclerosis of [place] arteries of Kingsley Shaw MD, [facility], Onset: left leg with ulceration of other part FSCAI of foot Chronic obstructive lung disease Winifred Ahumada MD Onset: 05/19/2017 Encounter for screening for malignant Winifred Ahumada MD Onset: 05/19/2017 neoplasm of respiratory organs Nicotine dependence, cigarettes, with Winifred Ahumada MD Onset: 05/19/2017 other nicotine-induced disorders Chronic diastolic heart failure Kingsley Shaw MD, [facility], Onset: 07/01/2017 FSCAI Atherosclerosis of [place] arteries of Kingsley Shaw MD, [facility], Onset: 04/2017 right leg with ulceration [...] 06/28/2019 extremities Intermittent claudication due to Femi eDgroot M.D. Onset: 06/28/2019 atherosclerosis of [place] artery of limb Social History Type Date [...] Inj, Regadenoson, 0.1 MG Tomas Grimaldo, DO [facility] 08/30/2019 Injection Technetium TC 99M Tomas Grimaldo, DO [facility] 08/30/2019 Tetrofosmin, Per Unit Dose Up To 40 Millicuries Injection Technetium TC 99M Tomas SWilfredo Grimaldo, DO [facility] 08/30/2019 Tetrofosmin, Per Unit Dose Up To 40 Millicuries Injection Inj, Regadenoson, 0.1 MG Tomas Grimaldo, DO [facility] 04/25/2018 Injection Technetium TC 99M Tomas Grimaldo, DO [facility] 04/25/2018 Tetrofosmin, Per Unit Dose Up To 40 Millicuries Injection Inj, Regadenoson, 0.1 MG Tomas Grimaldo, DO [facility] 03/31/2017 Injection Technetium TC 99M Tomas Mendoza. Dillan, DO [facility] 03/31/2017 Tetrofosmin, Per Unit Dose Up [...] Available Procedures Date Code Description Status 10/28/2019 54250 EKG, Interpretation Only Completed 08/30/2019 18458 Stress Test Completed 08/30/2019 85143 Myocardial Perfusion Imaging Tomographic (Spect) Completed Multiple Studies 08/29/2019 91838 ECHO Transthoracic, Real-Time 2D With Doppler And Color Completed Flow 08/29/2019 74705 ECHO Transthoracic, Real-Time 2D With Doppler And Color Completed Flow 07/21/2019 11383 EKG Tracing & Interpretation Completed 10/13/2013 38970972 Mammogram Completed Medical Devices Description No Information Available Encounters Type Date Location Provider Dx Diagnosis Office Visit 11/02/2019 [facility] Hector Ramírez MD E11.65 Type 2 diabetes 1:40p [facility] [employer] [facility] mellitus with hyperglycemia 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 I50.40 Unsp combined Of [employer] Grimaldo, DO systolic and FACC diastolic (congestive) [...] pulmonary disease, unspecified Office Visit 07/21/2019 10:00a [facility] Tomas S. I95.9 Hypotension, Of [employer] Grimaldo, DO unspecified FACC R07.9 Chest pain, [...] 11:15a [facility] Femi GWilfredo I70.223 [facility] [place] [facility] Of Sonja Degroot M.D. arteries of extrm w rest pain, bilateral legs I70.213 Athscl [place] arteries of extrm w intrmt sandi, bi legs Office Visit 05/14/2019 8:36a [facility] Ileana Gamal, I50.23 Acute on chronic Assoc,pc N.P. systolic Hospitalists (congestive) heart failure J44.1 Chronic obstructive pulmonary disease w (acute) exacerbation E11.9 Type 2 diabetes mellitus without complications Office Visit 05/13/2019 8:36a [facility] Edelmira R06.02 Shortness of Assoc,pc Maulik, PAKorin breath Hospitalists R00.0 Tachycardia, unspecified I50.9 Heart failure, unspecified Assessments Date Code Description Provider 11/02/2019 E11.65 Type 2 diabetes mellitus with Hector Ramírez MD hyperglycemia 11/02/2019 E05.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 Hector Ramírez MD multinodular goiter without thyrotoxic crisis or storm 11/02/2019 Z79.4 FPC (current) use of insulin Hector Ramírez MD [...] 10/30/2019 Z95.1 Presence of aortocoronary bypass Court Marquez, D.O. graft 10/29/2019 R07.9 Chest pain, unspecified Katerina Bales [...] MD graft 10/28/2019 R07.9 Chest pain, unspecified Trinity Puentes M.D. 10/28/2019 R94.31 Abnormal electrocardiogram [ECG] Nehemiah Hirsch M.D., [facility], [EKG] [facility] 10/28/2019 I21.4 Non-St elevation (Nstemi) myocardial Trinity Puentes M.D. infarction 10/28/2019 E03.9 Hypothyroidism, unspecified Trinity Puentes M.D. 10/28/2019 I50.9 Heart failure, unspecified Trinity Puentes M.D. 10/28/2019 E11.9 Type 2 diabetes mellitus without Trinity Puentes M.D. complications 09/05/2019 I50.40 Unspecified combined systolic Tomas Grimaldo DO [facility] (congestive) and diastolic (congestive) heart failure 09/05/2019 E11.69 Type 2 diabetes mellitus with other Tomas Grimaldo DO [facility] specified complication 09/05/2019 I73.9 Peripheral vascular disease, Tomas Grimaldo DO FACC unspecified 09/05/2019 I10 Essential (primary) hypertension Tomas Grimaldo DO FACC 09/05/2019 E78.5 Hyperlipidemia, unspecified Tomas Grimaldo DO FACC 09/05/2019 F17.201 Nicotine dependence, unspecified, in Tomas Grimaldo DO FAC remission 09/05/2019 I45.19 Other right bundle-branch block Tomas Grimaldo DO FACC 09/05/2019 I63.9 Cerebral infarction, unspecified Tomas Grimaldo DO FACC 09/05/2019 N18.9 Chronic kidney disease, unspecified Tomas Grimaldo DO FACC 09/05/2019 Z95.2 Presence of prosthetic heart valve Tomas Grimaldo, DO FACC 09/05/2019 J44.9 Chronic obstructive pulmonary Tomas Grimaldo, DO FACC disease, unspecified 08/30/2019 R07.9 Chest pain, unspecified Tomas SWilfredo Grimaldo, DO FACC 08/29/2019 I95.9 Hypotension, unspecified Tomas SWilfredo Sernano, DO FACC 08/29/2019 I95.9 Hypotension, unspecified Ica ECHO Schedule 07/21/2019 I95.9 Hypotension, unspecified Tomas Grimaldo, DO FACC 07/21/2019 R07.9 Chest pain, unspecified Tomas SWilfredo Sernano, DO FACC 07/21/2019 I50.40 Unspecified combined systolic Tomas Grimaldo, DO FACC (congestive) and diastolic (congestive) heart failure 07/21/2019 I73.9 Peripheral vascular disease, Tomas Grimaldo, DO FACC unspecified 07/21/2019 E11.69 Type 2 diabetes mellitus with other Tomas Grimaldo, DO FACC specified complication 07/21/2019 I10 Essential (primary) hypertension Tomas Grimaldo, DO FACC 07/21/2019 E78.5 Hyperlipidemia, unspecified Tomas Grimaldo, DO FACC 07/21/2019 F17.201 Nicotine dependence, unspecified, in Tomas Grimaldo, DO FACC remission 07/21/2019 I45.19 Other right bundle-branch block Tomas Grimaldo, DO FACC 07/21/2019 N18.9 Chronic kidney disease, unspecified Tomas SWilfredo Sernano, DO FACC 07/21/2019 I63.9 Cerebral infarction, unspecified Tomas SWilfredo Grimaldo, DO FACC 07/21/2019 J44.9 Chronic obstructive pulmonary Tomas Grimaldo, DO FACC disease, unspecified 06/28/2019 I70.223 Atherosclerosis of [place] arteries of Femi Degroot M.D. extremities with rest pain, bilateral legs 06/28/2019 I70.213 Atherosclerosis of [place] arteries of Femi Degroot M.D. extremities with intermittent claudication, bilateral legs 05/14/2019 I50.23 Acute on chronic systolic Kiana Dominguez.[place]. (congestive) heart failure 05/14/2019 J44.1 Chronic obstructive pulmonary disease Ileana Yeung N.P. with (acute) exacerbation 05/14/2019 E11.9 Type 2 diabetes mellitus without Ileana Yeung N.P. complications 05/13/2019 R06.02 Shortness of breath Edelmira Willingham PA-C 05/13/2019 R00.0 Tachycardia, unspecified Edelmira Willingham PA-C 05/13/2019 I50.9 Heart failure, unspecified Edelmira Willingham PA-C Plan of Treatment Future Appointment(s):02/13/2020 11:00 am - Hector Ramírez MD at [place] [facility]03/05/2020 10:20 am - Tomas Grimaldo DO [facility] at [facility]11/02/2019 - Hector Ramírez MDE11.65 Type 2 diabetes mellitus with hyperglycemiaReferral:Uri Wallace DPM, TzioaejffgZ80.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 multinodular goiter without thyrotoxic crisis or ujeuvR70.4 FPC (current) use of insulin Functional Status Description No Information Available Mental Status Description No Information Available Referrals Refer to Dr Reason for Referral Status Appt Date Uri Wallace DPM diabetic neuropathy Sent [address] [place] [address] [phone]
--- OUTSIDE RECORDS SUMMARY | 2019-11-23 10:38 | XMS REPORT | Summary of Care ---
:1965 Author Organization [facility] Address [address] [place] [address] Care Team Providers Name Role Phone Jamaal Garcia DO Primary Care Provider Reason for Visit Reason Comments Chest Pain Abdominal Pain Auth/Cert Status Reason Specialty Diagnoses / Procedures Referred By Contact Referred To Contact Diagnoses Chest pain Chest pain Stable angina Encounter Details Date Type Department Care Team Description 11/08/2019 - Hospital 10 GENERAL Don Lowe MD [address] [place] [address] [phone] Chest pain 11/09/2019 Encounter MEDICINE Dave Simons MD [address] [facility] 2nd Floor, [address] [place] [address] [phone] (Primary Dx) [address] [facility] Davina Reyes MD [address] [place] [address] [phone] [place], [place] Kavon Garsia MD [address] [place] [address] [phone] Allergies Active Allergy Reactions Severity Noted Date Comments Levofloxacin 11/08/2019 Metformin And Related 11/08/2019 Ondansetron Hcl Hives 09/25/2016 documented as of this encounter (statuses as of 11/09/2019) Medications Medication Sig Dispensed Refills Start Date End Date Status aspirin 81 MG Take 81 mg by 0 Active tablet mouth daily. gabapentin Take 300 mg by 0 Active (NEURONTIN) 300 MG mouth daily. capsule Ticagrelor 90 MG Take 90 mg by 0 Active Oral Tablet mouth Two (BRILINTA) Times Daily atorvastatin Take 80 mg by 0 Active (LIPITOR) 80 MG mouth every tablet evening Pantoprazole Take 40 mg by 0 Active Sodium 40 MG Oral mouth daily Tablet Delayed Release (PROTONIX) carvedilol (COREG) Take 3.125 mg 0 Active 3.125 MG tablet by mouth Two times daily with meals Empagliflozin 10 Take 10 mg by 0 Active MG Oral Tablet mouth daily (JARDIANCE) Furosemide 20 MG Take 40 mg by 0 08/06/2017 Active Oral Tablet mouth daily (LASIX) Losartan Potassium Take 25 mg by 0 Active 25 MG Oral Tablet mouth daily (COZAAR) Insulin Aspart 100 Inject 10 0 Active UNIT/ML Units into the Subcutaneous skin Three Solution (NOVOLOG) times daily before meals Plus sliding scale. Umeclidinium Inhale 1 puff 0 Active [place] 62.5 into the lungs MCG/INH Inhalation daily Aerosol Powder Breath Activated (INCRUSE ELLIPTA) methIMAzole 5 MG Take 5 mg by 0 Active Oral Tablet mouth daily (TAPAZOLE) Insulin Detemir Inject 45 2700 Units 0 11/09/2019 12/09/19 Active 100 UNIT/ML Units into the 20 Subcutaneous skin Two Times Solution (LEVEMIR) Daily Split dosing atenolol Take 50 mg by 0 11/08/19 Discontinued (TENORMIN) 50 MG mouth daily. 20 (Medication tablet Reconcilation) clopidogrel Take 75 mg by 0 11/08/19 Discontinued (PLAVIX) 75 MG mouth daily. 20 tablet ranitidine Take 300 mg by 0 11/08/19 Discontinued (ZANTAC) 150 MG mouth daily. 20 tablet ibuprofen Take 200 mg by 0 11/08/19 Discontinued (ADVIL,MOTRIN) 200 mouth every 6 20 (Medication MG tablet (six) hours as Reconcilation) needed for Pain. insulin glargine Inject 35 0 11/08/19 Discontinued (LANTUS) 100 Units into the 20 (Medication UNIT/ML vial skin Two Times Reconcilation) Daily. isosorbide Take 5 mg by 0 11/08/19 Discontinued dinitrate mouth Three 20 (ISORDIL) 5 MG times daily. tablet pravastatin Take 80 mg by 0 11/08/19 Discontinued (PRAVACHOL) 40 MG mouth daily. 20 tablet ranolazine Take 1,000 mg 0 11/08/19 Discontinued (RANEXA) 500 MG 12 by mouth Two 20 hr tablet Times Daily. 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 COPD (chronic obstructive pulmonary disease) 11/08/2019 Thyroid nodule, cold 11/08/2019 Hyperthyroidism 11/08/2019 Chronic systolic heart failure 11/08/2019 GERD (gastroesophageal reflux disease) 11/08/2019 Ischemic cardiomyopathy 11/08/2019 Pulmonary hypertension 11/08/2019 Peripheral arterial disease 09/27/2016 Type 2 diabetes mellitus 09/27/2016 Diabetic ulcer of foot associated with diabetes mellitus due to underlying 01/2016 condition, limited to breakdown of skin Essential hypertension 09/27/2016 Hyperlipidemia 09/27/2016 Arterial insufficiency with ischemic ulcer 09/25/2016 documented as of this encounter (statuses as of 11/09/2019) Social History Tobacco Use Types Packs/Day Years Used Date Former Smoker Cigarettes Quit: 08/08/2017 Alcohol Use Drinks/Week oz/Week Comments Yes rare Sex Assigned at Date Recorded Not on file Job Start Date Occupation Industry Not on file Not on file Not on file Travel History Travel Start Travel End No recent travel history available. documented as of this encounter Last Filed Vital Signs Vital Sign Reading Time Taken Comments Blood Pressure 112/65 11/09/2019 2:46 PM EST Pulse 78 11/09/2019 2:46 PM EST Temperature 36.5 11/09/2019 2:46 PM C (97.7 EST F) Respiratory Rate 18 11/09/2019 2:46 PM EST Oxygen Saturation 97% 11/09/2019 2:46 PM EST Inhaled Oxygen Concentration - - Weight 89.3 kg (196 lb 13.9 oz) 11/08/2019 6:42 PM EST Height 160 cm (5' 3") 11/08/2019 6:42 PM EST Body Mass Index 34.87 11/08/2019 6:42 PM EST documented in this encounter Progress Notes Cortney Serrano RN - 11/09/2019 3:[address] Garsia and MADDIE Blackman. Pt is still OK for D/C despite FS of 487. Reviewed all D/C paperwork, follow-up appointments and medications with pt and family. No questions at this time. VSS.[facility] with al belongings for transport home by family. Cortney Basurto RN - 11/09/2019 3:42 PM EST25 units of lantus given prior to D/C per MADDIE Blackman. Tomas Wilson PharmD - 11/09/2019 2:03 PM EST Pharmacy Medication History Review Patient's Medications Previous Medications ASPIRIN 81 MG TABLET Take 81 mg by mouth daily. Notes: -- ATORVASTATIN (LIPITOR) 80 MG TABLET Take 80 mg by mouth every evening Notes: -- CARVEDILOL (COREG) 3.125 MG TABLET Take 3.125 mg by mouth Two times daily with meals Notes: >> KOBE ESCAMILLA Wed Nov 08, 2019 2:39 PM Pt states recent increase to 6.25 mg twice a day. Unable to confirm with pharmacy. EMPAGLIFLOZIN 10 MG ORAL TABLET (JARDIANCE) Take 10 mg by mouth daily Notes: -- FUROSEMIDE 20 MG ORAL TABLET (LASIX) Take 40 mg by mouth daily Notes: -- GABAPENTIN (NEURONTIN) 300 MG CAPSULE Take 300 mg by mouth daily. Notes: -- INSULIN ASPART 100 UNIT/ML SUBCUTANEOUS SOLUTION (NOVOLOG) Inject 10 Units into the skin Three times daily before meals Plus sliding scale. Notes: -- INSULIN DETEMIR 100 UNIT/ML SUBCUTANEOUS SOLUTION (LEVEMIR) Inject 80 Units into the skin every morning Notes: -- LOSARTAN POTASSIUM 25 MG ORAL TABLET (COZAAR) Take 25 mg by mouth daily Notes: -- METHIMAZOLE 5 MG ORAL TABLET (TAPAZOLE) Take 5 mg by mouth daily Notes: -- PANTOPRAZOLE SODIUM 40 MG ORAL TABLET DELAYED RELEASE (PROTONIX) Take 40 mg by mouth daily Notes: -- TICAGRELOR 90 MG ORAL TABLET (BRILINTA) Take 90 mg by mouth Two Times Daily Notes: -- UMECLIDINIUM BROMIDE 62.5 MCG/INH INHALATION AEROSOL POWDER BREATH ACTIVATED ( INCRUSE ELLIPTA) Inhale 1 puff into the lungs daily Notes: -- Pt was a good historian with some prompting. The following medications have been added: losartan, novolog, methimazole, incruse ellipta The following medications have been removed: atenolol, lantus, ibuprofen, humulin/novolin 70/30 The following medications have been modified: atorvastatin, carvedilol, furosemide, levemir The patient takes the following medications differently than prescribed: Medication History Source: [facility] [address] [place] [address] The above prior to admission medications have been compared to current inpatient orders. Medication history was completed based on information available during this patient encounter by a pharmacy med history civil technician and reviewed by myself. The list above may not be all inclusive. Thank you, Tomas Hung, PharmD Cortney Basurto RN - 11/09/2019 1:25 PM ESTNotified Joi Esteves of pts repeat fingerstick of 487 after receiving 12 units of insulin per sliding scale. Awaiting response. 1: 26 PM Cortney Basurto RN - 11/09/2019 12:16 PM ESTNotified MADDIE Blackman of pts BG of 419 after eating cheese burger. Pt ate 28g CHO following BG. Will cover with 12 units per sliding scale. Cortney Basurto RN - 11/09/2019 10:15 AM EST 11/09/19 1012 Vitals Temp 36.3 C Temp src Tympanic Pulse 81 Heart Rate Source Automatic Resp 18 BP 109/61 BP Location Right arm BP Method Automatic Patient Position Lying Oxygen Therapy SpO2 98 % $Oxygen On/Off ([employer]CE & RN) On O2 Therapy Oxygen O2 Flow Rate (L/min) 1 L/min pt called RN into room. C/O increased N/T in arms and legs. Dizziness, headache and feeling cold. VSS. Pt resting in bed with call moore in reach. Joi PERKINS paged. Will continue to monitor. Marilu Hanna RN - 11/08/2019 5:01 PM ESTReceived notification from ED provider Lianet lowe that the patient wished to be transferred to an ER close to her home, [facility]. Reviewed chart. Patient was visiting her daughter in [place] when she suffered chest pain. Her disposition after Ed evaluation was for admission. Patient refused admission and wanted to be transferred to her home [facility] in [place]. Our Ed provider has accepting ED provider at [facility]. Ordered was ALS transport with 2 liters of oxygen. Forms A/B and PCS complete. Met with patient at bedside and explained that she will be responsible for the transport bill, as insurance will not pay if transport is NOT for a higher level of care. April Chavez is aware of the above information and in agreement with plan. She has no further questions at this time. Update 1720: patient advised that [facility] expected payment up front of $2476. Patient did not have funds and wanted to leave [place] and sister would drive her to [place]. Oncoming ED provider Lianet Ruvalcaba and this CM spoke with patient and family at bedside and explained the dangers, given her medical HX, of leaving [place]. Patient has now decided to stay. Rust bed still available.Electronically signed by Marilu Grossman RN at 5:23 PM Basim Corrales PharmD - 11/08/2019 3:04 PM EST Pharmacy Medication History Review April Edie Chavez's medication history was completed in the emergency department by a medication history civil technician and independently reviewed by myself. Previous Medications ASPIRIN 81 MG TABLET Take 81 mg by mouth daily. ATORVASTATIN (LIPITOR) 80 MG TABLET Take 80 mg by mouth every evening CARVEDILOL (COREG) 3.125 MG TABLET Take 3.125 mg by mouth Two times daily with meals EMPAGLIFLOZIN 10 MG ORAL TABLET (JARDIANCE) Take 10 mg by mouth daily FUROSEMIDE 20 MG ORAL TABLET (LASIX) Take 40 mg by mouth daily GABAPENTIN (NEURONTIN) 300 MG CAPSULE Take 300 mg by mouth daily. INSULIN ASPART 100 UNIT/ML SUBCUTANEOUS SOLUTION (NOVOLOG) Inject 10 Units into the skin Three times daily before meals Plus sliding scale. INSULIN DETEMIR 100 UNIT/ML SUBCUTANEOUS SOLUTION (LEVEMIR) Inject 80 Units into the skin every morning LOSARTAN POTASSIUM 25 MG ORAL TABLET (COZAAR) Take 25 mg by mouth daily METHIMAZOLE 5 MG ORAL TABLET (TAPAZOLE) Take 5 mg by mouth daily PANTOPRAZOLE SODIUM 40 MG ORAL TABLET DELAYED RELEASE (PROTONIX) Take 40 mg by mouth daily TICAGRELOR 90 MG ORAL TABLET (BRILINTA) Take 90 mg by mouth Two Times Daily UMECLIDINIUM BROMIDE 62.5 MCG/INH INHALATION AEROSOL POWDER BREATH ACTIVATED ( INCRUSE ELLIPTA) Inhale 1 puff into the lungs daily Medication History Source: [facility] [address] [place] [address] Basim Kruse PharmD Emergency Department Pharmacist Medication history was completed based on information available during this patient encounter, the list above may not be all inclusive. documented in this encounter Plan of Treatment Name Type Priority Associated Diagnoses Date/Time EKG 12 Lead (Unsolicited ECG Routine 11/08/2019 12:08 PM EST Computer Order) TSH Receptor Ab Lab Routine 11/08/2019 8:26 PM EST Name Type Priority Associated Order Schedule Diagnoses POCT glucose, docked Point of Care Routine 4X Daily (AC & HS) Testing-Docked for 30 Days Device starting 11/08/2019 until 12/08/2019, 3 completed TSH Receptor Ab Lab Routine Once for 1 Occurrences starting 11/08/2019 until 11/08/2019 Oxygen Orders: Nasal Respiratory Care STAT Continuous for 30 Cannula; Liters per days for 1 Days minute: 2 LPM; D/C starting 11/09/2019 Oxygen 48hrs After until 11/09/2019 Being on Room Air: Yes Basic Metabolic Lab Routine AM Draw for 5 Panel Occurrences starting 11/09/2019 until 11/13/2019, 1 completed CBC and Differential Lab Routine AM Draw for 5 Occurrences starting 11/09/2019 until 11/13/2019, 1 completed Health Maintenance Due Date Last Done Comments Lipid Disorder Screening 1965 MMR Vaccines (1 of 1 - Standard 1965 series) Varicella Vaccines (1 of 2 - 1965 2-dose childhood series) Pneumococcal Vaccine: Pediatrics 1970 (0 to 5 Years) and At-Risk Patients (6 to 64 Years) (1 of 1 - PPSV23) DTaP,Tdap,and Td Vaccines (1 - 1971 Tdap) HIV Screening 1977 Diabetic Foot Exam 1982 Dilated Retinal Exam 1982 Urine Microalbumin 1982 Hepatitis B Vaccines (1 of 3 - 1983 Risk 3-dose series) Cervical Cancer Screening 5 years 1985 Breast Cancer Screening 2 years 2014 Colon Cancer Screening 10 yrs 2014 Hemoglobin A1c 03/26/2017 09/25/2016 Influenza Vaccine 07/25/2019 Pneumococcal Vaccine: 65+ Years (1 2029 of 2 - PCV13) Hepatitis C Screening (B. Completed 11/08/201919440987-5511) HIB Vaccines Aged Out No longer eligible based on patient's age to complete this topic Hepatitis A Vaccines Aged Out No longer eligible based on patient's age to complete this topic IPV Vaccines Aged Out No longer eligible based on patient's age to complete this topic documented as of this encounter Implants Implanted Type Area Machine Plaster Mixer Device Shelf Model / Identifier Expiration Date Serial / Lot Vas Leny - Proglide Perclose - [id number] Right: GUIDANT CAIT 01/22/2018 [id number] / Implanted: Qty: 1 on 09/26/2016 by Davon Finn MD at [facility] Groin / [id number] documented as of this encounter Procedures Procedure Name Priority Date/Time Associated Comments Diagnosis POCT GLUCOSE, DOCKED Routine 11/09/2019 3:08 Results for this PM EST procedure are in the results section. POCT GLUCOSE, DOCKED Routine 11/09/2019 1:22 Results for this PM EST procedure are in the results section. POCT GLUCOSE, DOCKED Routine 11/09/2019 12:05 Results for this PM EST procedure are in the results section. TROPONIN T Routine 11/09/2019 10:30 Results for this AM EST procedure are in the results section. POCT GLUCOSE, DOCKED Routine 11/09/2019 10:26 Results for this AM EST procedure are in the results section. POCT GLUCOSE, DOCKED Routine 11/09/2019 8:15 Results for this AM EST procedure are in the results section. POCT GLUCOSE, DOCKED Routine 11/09/2019 6:29 Results for this AM EST procedure are in the results section. CBC AND DIFFERENTIAL Routine 11/09/2019 4:04 Results for this AM EST procedure are in the results section. BASIC METABOLIC PANEL Routine 11/09/2019 4:04 Results for this AM EST procedure are in the results section. POCT GLUCOSE, DOCKED Routine 11/08/2019 9:54 Results for this PM EST procedure are in the results section. URINALYSIS WITH Routine 11/08/2019 8:38 Results for this MICROSCOPIC PM EST procedure are in the results section. HEPATITIS C ANTIBODY Routine 11/08/2019 8:26 Results for this PM EST procedure are in the results section. TROPONIN T Routine 11/08/2019 8:26 Results for this PM EST procedure are in the results section. T3, FREE Routine 11/08/2019 8:26 Results for this PM EST procedure are in the results section. TSH Routine 11/08/2019 8:26 Results for this PM EST procedure are in the results section. T4, FREE Routine 11/08/2019 8:26 Results for this PM EST procedure are in the results section. PHOSPHORUS LEVEL Routine 11/08/2019 8:26 Results for this PM EST procedure are in the results section. MAGNESIUM LEVEL Routine 11/08/2019 8:26 Results for this PM EST procedure are in the results section. HEPATIC FUNCTION PANEL Routine 11/08/2019 8:26 Results for this A PM EST procedure are in the results section. XR CHEST FRONTAL ONLY STAT 11/08/2019 1:17 Results for this 92588 PM EST procedure are in the results section. POCT ISTAT TROPONIN Routine 11/08/2019 12:49 Results for this PM EST procedure are in the results section. PROTIME INR STAT 11/08/2019 12:49 Results for this PM EST procedure are in the results section. CBC AND DIFFERENTIAL STAT 11/08/2019 12:49 Results for this PM EST procedure are in the results section. TROPONIN T STAT 11/08/2019 12:49 Results for this PM EST procedure are in the results section. BASIC METABOLIC PANEL STAT 11/08/2019 12:49 Results for this PM EST procedure are in the results section. EKG ED PHYSICIAN Routine 11/08/2019 12:18 Results for this INTERPRETATION PM EST procedure are in the results section. POCT GLUCOSE, DOCKED Routine 11/08/2019 12:12 Results for this PM EST procedure are in the results section. EKG 12 LEAD Routine 11/08/2019 12:08 (UNSOLICITED COMPUTER PM EST ORDER) Procedure Note - Interface, Received Via DepartmentRasmussen Reports Systems - 11/08/2019 12 :07 PM EST Ventricular Rate: 95 BPM Atrial Rate: 95 BPM P-R Interval: 128 ms QRS Duration: 130 ms Q-T Interval: 396 ms QTC Calculation(Bazett): 497 ms P [place]: 60 degrees R [place]: -85 degrees T [place]: 48 degrees : SINUS RHYTHM : LEFT AXIS DEVIATION : RIGHT BUNDLE BRANCH BLOCK : INFERIOR INFARCT , AGE UNDETERMINED : ANTEROLATERAL INFARCT , AGE UNDETERMINED : ABNORMAL ECG : WHEN COMPARED WITH ECG OF 28-SEP-2016 18:54, : RIGHT BUNDLE BRANCH BLOCK IS NOW PRESENT : ANTERIOR INFARCT IS NOW PRESENT : ANTEROLATERAL INFARCT IS NOW PRESENT : INFERIOR INFARCT IS NOW PRESENT : THIS IS A PRELIMINARY RESULT. EKG 12-LEAD - CMAXX REPORT 11/08/2019 12:08 PM EST EKG 12-LEAD - CMAXX REPORT 11/08/2019 12:08 PM EST EKG 12-LEAD STAT 11/08/2019 12:08 PM EST EKG 12-LEAD - CMAXX REPORT 11/08/2019 12:08 PM EST documented in this encounter Results POCT glucose, docked (11/09/2019 3:08 PM EST) POC Glucose 336 (H) 70 - 140 mg/dL [facility] POC Specimen Whole Blood Performing Organization Address [place] [place] Number POINT OF CARE TEST [address] [place], [place] [id number] [place] [address] POC [address] [place] [address] POCT glucose, docked (11/09/2019 1:22 PM EST) POC Glucose 487 (HH) 70 - 140 mg/dL [facility] POC Specimen Whole Blood Performing Organization Address [facility] [place] Number POINT OF CARE TEST [address] [place], [place] [id number] [place] [address] POC [address] [place] [address] POCT glucose, docked (11/09/2019 12:05 PM EST) POC Glucose 413 (H) 70 - 140 mg/dL [facility] POC Specimen Whole Blood Performing Organization Address [facility] Number POINT OF CARE TEST [address] [place], [place] [id number] [place] [address] POC [address] [place] [address] Troponin T (11/09/2019 10:30 AM EST) Troponin T <0.01 <0.01 ng/mL [facility] Pathology Specimen Plasma Performing Organization Address [facility] [place] Number [facility] CLINICAL PATHOLOGY [address] [place] [address] [phone] [facility] [address] [place] [address] Pathology POCT glucose, docked (11/09/2019 10:26 AM EST) POC Glucose 270 (H) 70 - 140 mg/dL [facility] POC Specimen Whole Blood Performing Organization Address [facility] Number POINT OF CARE TEST [address] [place], [place] [id number] [place] [address] POC [address] [place] [address] POCT glucose, docked (11/09/2019 8:15 AM EST) POC Glucose 254 (H) 70 - 140 mg/dL [facility] POC Specimen Whole Blood Performing Organization Address [facility] [place] Number POINT OF CARE TEST [address] [place], [place] [phone] [place] [address] POC [address] [place] [address] POCT glucose, docked (11/09/2019 6:29 AM EST) POC Glucose 251 (H) 70 - 140 mg/dL [facility] POC Specimen Whole Blood Performing Organization Address City/[facility] Phone Number POINT OF CARE TEST [address] [place] [address] [facility] POC [address] [place] [address] CBC and Differential (11/09/2019 4:04 AM EST) Pathologist [facility] White Blood Cell 7.8 4 - 10 [facility] 10*3/uL [facility] Pathology Red Blood Cell 3.65 (L) 4.1 - 5.3 [facility] 10*6/uL [facility] Pathology Hemoglobin 10.7 (L) 11.5 - 15.5 [facility] g/dL [facility] Pathology Hematocrit 31.4 (L) 36 - 45 % [facility] Pathology Mean Cell Volume 85.9 80 - 96 fL [facility] Pathology Mean Cell Hemoglobin 29.2 27 - 33 pg [facility] Pathology Mean Cell Hgb Conc 34.0 32.0 - 36.0 [facility] g/dL [facility] Pathology Red Cell Dist Width 15.1 (H) 11.5 - 14.5 % [facility] Pathology Platelet Count 278 150 - 400 [facility] 10*3/uL [facility] Pathology Differential Type Automated Diff [facility]ology Neutrophil 74 % [facility]ology Lymphocyte 17 % [facility]ology Monocyte 6 % [facility]ology Eosinophil 2 % [facility] Pathology Basophil 1 % [facility] Pathology Abs Neutrophil 5.81 1.8 - 7.0 [facility] 10*3/uL [facility] Abs Lymphocyte 1.29 1.2 - 4.0 [facility] 10*3/uL [facility]ology Abs Monocyte 0.49 0 - 0.8 [facility] 10*3/uL [facility] Abs Eosinophil 0.17 0 - 0.5 [facility] 10*3/uL [facility] Abs Basophil 0.04 0 - 0.2 [facility] 10*3/uL [facility] Pathology Nucleated Red Blood 0 0 - 0 [facility] Cells /100{WBCs} [facility] Pathology Specimen EDTA Whole Blood Performing Organization Address City/State/Zipcode Phone Number [facility] CLINICAL PATHOLOGY [address] [place] [address] [phone] [facility] [address] [place] [address] Pathology Basic Metabolic Panel (11/09/2019 4:04 AM EST) Bicarbonate 23 22 - 29 mmol/L [facility]ology Chloride 101 98 - 107 mmol/L [facility]ology Creatinine 1.12 (H) 0.50 - 0.90 [facility] mg/dL [facility] Pathology Glucose 264 (H) 70 - 140 mg/dL [facility] Pathology Potassium 4.0 3.4 - 5.1 [facility] mmol/L [facility] Pathology Sodium 135 (L) 136 - 145 [facility] mmol/L [facility] Pathology Blood Urea Nitrogen 31 (H) 6 - 20 mg/dL [facility]ology Anion Gap 11 8 - 15 mmol/L [facility]ology Osmolality, Ger 296 275 - 300 [facility] mosm/kg [facility] Pathology BUN/Cre Ratio 28 [facility] Calcium 9.0 8.6 - 10.0 [facility] mg/dL [facility] GFR Non 54 (L) >60 [facility] [place] 2008 CDK-EPI mL/min/1.73m2 [facility]ology GFR 63 >60 [facility] 2009 CKD-EPI mL/min/1.73m2 [facility] Pathology Specimen Plasma Performing Organization Address City/[facility] Phone Number [facility] CLINICAL PATHOLOGY [address] [place] [address] [phone] [facility] [address] [place] [address] Pathology POCT glucose, docked (11/08/2019 9:54 PM EST) POC Glucose 411 (H) 70 - 140 mg/dL [facility] POC Specimen Whole Blood Performing Organization Address [facility] Phone Number POINT OF CARE TEST [address] [place] [address] [facility] POC [address] [place] [address] Urinalysis with microscopic (11/08/2019 8:38 PM EST) Color Yellow [facility] Pathology Clarity Clear [facility] Pathology Specific [place] 1.024 1.003 - 1.030 [facility] Pathology PH Urine 6.0 5.0 - 8.0 [facility] Pathology Total Protein UA 100 (A) Negative mg/dL [facility] Pathology Glucose UA >500 (A) Negative mg/dL [facility] Pathology Ketone Urine Negative Negative mg/dL [facility] Pathology Bilirubin Negative Negative [facility] Pathology Hemoglobin, Urine 1+ (A) Negative [facility] Pathology Leukocyte Esterase Negative Negative Jessica/uL [facility] Pathology Nitrite Negative Negative [facility] Pathology WBC 9 (H) 0 - 5 /HPF [facility] Pathology RBC 4 (H) 0 - 3 /HPF [facility] Pathology Squam Epithel, UA 1 (A) None /HPF [facility] Pathology Mucus, UA Trace (A) None /LPF [facility] Pathology Specimen Urine Performing Organization Address [facility] Phone Number [facility] PATHOLOGY [address] [place] [address] [facility] [address] [place] [address] Pathology T3, free (11/08/2019 8:26 PM EST) Free T3 3.27 2.00 - 4.40 pg/mL [facility] Pathology Specimen Plasma Performing Organization Address [facility] Phone Number [facility] PATHOLOGY [address] [place] [address] [phone] [facility] [address] [place] [address] Pathology T4, free (11/08/2019 8:26 PM EST) Free Thyroxine 1.93 (H) 0.93 - 1.70 ng/dL [facility] Pathology Specimen Plasma Performing Organization Address [facility] Phone Number [facility] CLINICAL PATHOLOGY [address] [place] [address] [facility] [address] [place] [address] Pathology TSH (11/08/2019 8:26 PM EST) TSH 0.041 (L) 0.270 - 4.200 [facility] u[IU]/mL Clin Pathology Specimen Plasma Performing Organization Address [facility] Phone Number [facility] PATHOLOGY [address] [place] [address] [facility] [address] [place] [address] Pathology Hepatitis C antibody (11/08/2019 8:26 PM EST) Hepatitis C Ab Non ReactiveComment: Non Reactive [facility] serological Univ Clin evidence of active Pathology infection. If recent exposure is suspected, test for HCV RNA. Specimen Serum Performing Organization Address [facility] [place] Phone Number [facility] PATHOLOGY [address] [place] [address] [phone] [facility] [address] [place] [address] Pathology Troponin T (11/08/2019 8:26 PM EST) Troponin T <0.01 <0.01 ng/mL [facility] Pathology Specimen Plasma Performing Organization Address [facility] [place] Phone Number [facility] PATH[facility] [address] [place] [address] [facility] [address] [place] [address] Pathology Phosphorus Level (11/08/2019 8:26 PM EST) Phosphorus 3.1 2.5 - 4.5 mg/dL [facility] Pathology Specimen Plasma Performing Organization Address [facility] [place] Phone Number [facility] PATH[facility] [address] [place] [address] [facility] [address] [place] [address] Pathology Magnesium Level (11/08/2019 8:26 PM EST) Magnesium 2.4 1.6 - 2.6 mg/dL [facility] Pathology Specimen Plasma Performing Organization Address [facility] [place] Phone Number [facility] PATH[facility] [address] [place] [address] [facility] [address] [place] [address] Pathology Hepatic Function Panel (11/08/2019 8:26 PM EST) Albumin 4.0 3.5 - 5.2 g/dL [facility] Pathology Bilirubin, Total 0.4 <1.2 mg/dL [facility] Pathology Bilirubin, Direct <0.2 <0.3 mg/dL [facility] Pathology Alkaline Phosphatase 154 (H) 35 - 104 U/L [facility] Pathology AST/SGO 12 <32 U/L [facility] Pathology ALT/SGP 18 <33 U/L [facility] Pathology Total Protein 7.2 6.4 - 8.3 g/dL [facility] Pathology Specimen Plasma Performing Organization Address City/[facility] Phone Number [facility] CLINICAL PATHOLOGY [address] [place] [address] [phone] [facility] [address] [place] [address] Pathology XR Chest Frontal Only (11/08/2019 1:17 PM EST) Specimen Narrative Performed At Chest single view. [facility] RADIOLOGY INDICATION: Chest pain. FINDINGS: A single 85 degrees upright frontal film of the chest is submitted and is compared with the study dated September 28, 2016. There has been an interval midline sternotomy. Lung volumes are reduced. Cardiomediastinal silhouette size cannot be assessed. The central airways appear patent. There is nonspecific prominence of bronchovascular structures. There is no evidence of pulmonary edema, atelectasis or pneumonia. There is no evidence of pleural effusion or pneumothorax. Procedure Note Interface, Received Via [employer] - 11/08/2019 1:23 PM EST Chest single view. INDICATION: Chest pain. FINDINGS: A single 85 degrees upright frontal film of the chest is submitted and is compared with the study dated September 28, 2016. There has been an interval midline sternotomy. Lung volumes are reduced. Cardiomediastinal silhouette size cannot be assessed. The central airways appear patent. There is nonspecific prominence of bronchovascular structures. There is no evidence of pulmonary edema, atelectasis or pneumonia. There is no evidence of pleural effusion or pneumothorax. Performing Organization Address City/[facility]/Zipcode Phone Number [facility] RADIOLOGY [address] [place] [address] Troponin T (11/08/2019 12:49 PM EST) Troponin T <0.01 <0.01 ng/mL [facility] Pathology Specimen Plasma Performing Organization Address City/[facility]/Zipcode Phone Number [facility] CLINICAL PATHOLOGY [address] [place] [address] [facility] Clin [address] [place] [address] Pathology Protime-INR (11/08/2019 12:49 PM EST) Pathologist [facility] PT Patient 12.7 12.5 - 14.9 [facility] Univ Clin Pathology Int'l Normalized 0.92Comment: Routine [facility] Ratio intensity oral Univ Clin anticoagulation INR is Pathology typically 2.0-3.0. Target INR must be clinically individualized. Specimen Plasma Performing Organization Address City/[facility] Phone Number [facility] CLINICAL PATHOLOGY [address] [place] [address] [facility] Univ Clin [address] [place] [address] Pathology CBC and Differential (11/08/2019 12:49 PM EST) Pathologist [facility] White Blood Cell 9.6 4 - 10 [facility] 10*3/uL Univ Clin Pathology Red Blood Cell 4.21 4.1 - 5.3 [facility] 10*6/uL Univ [facility] Pathology Hemoglobin 12.3 11.5 - 15.5 [facility] g/dL Univ Clin Pathology Hematocrit 36.5 36 - 45 % [facility] Pathology Mean Cell Volume 86.6 80 - 96 fL [facility] Pathology Mean Cell Hemoglobin 29.2 27 - 33 pg [facility] Univ Clin Pathology Mean Cell Hgb Conc 33.7 32.0 - 36.0 [facility] g/dL Univ Clin Pathology Red Cell Dist Width 15.5 (H) 11.5 - 14.5 % [facility] Pathology Platelet Count 334 150 - 400 [facility] 10*3/uL Univ Clin Pathology Differential Type Automated Diff [facility] Univ Clin Pathology Neutrophil 84 % [facility] Univ Clin Pathology Lymphocyte 10 % [facility] Pathology Monocyte 4 % [facility] Univ Clin Pathology Eosinophil 1 % [facility] Univ Clin Pathology Basophil 1 % [facility] Pathology Abs Neutrophil 8.02 (H) 1.8 - 7.0 [facility] 10*3/uL Univ Clin Pathology Abs Lymphocyte 0.99 (L) 1.2 - 4.0 [facility] 10*3/uL Univ [facility] Pathology Abs Monocyte 0.41 0 - 0.8 [facility] 10*3/uL Univ Clin Pathology Abs Eosinophil 0.14 0 - 0.5 [facility] 10*3/uL Univ [facility] Pathology Abs Basophil 0.05 0 - 0.2 [facility] 10*3/uL Univ [facility] Pathology Nucleated Red Blood 0 0 - 0 [facility] Cells /100{WBCs} Univ [facility] Pathology Specimen EDTA Whole Blood Performing Organization Address [facility] Phone Number [facility] PATHOLOGY [address] [place] [address] [facility] [address] [place] [address] Pathology Basic Metabolic Panel (11/08/2019 12:49 PM EST) Bicarbonate 23 22 - 29 mmol/L [facility] Pathology Chloride 98 98 - 107 mmol/L [facility] Pathology Creatinine 1.29 (H) 0.50 - 0.90 [facility] mg/dL [facility] Pathology Glucose 381 (H) 70 - 140 mg/dL [facility] Pathology Potassium 4.6 3.4 - 5.1 [facility] mmol/L [facility] Clin Pathology Sodium 135 (L) 136 - 145 [facility] mmol/L [facility] Clin Pathology Blood Urea Nitrogen 32 (H) 6 - 20 mg/dL [facility] Pathology Anion Gap 14 8 - 15 mmol/L [facility] Pathology Osmolality, Ger 303 (H) 275 - 300 [facility] mosm/kg Univ Clin Pathology BUN/Cre Ratio 25 [facility] Pathology Calcium 9.7 8.6 - 10.0 [facility] mg/dL Univ [facility] Pathology GFR Non 46 (L) >60 [facility] [place] 2009 CDK-EPI mL/min/1.73m2 Univ [facility] Pathology GFR 53 (L) >60 [facility] 2009 CKD-EPI mL/min/1.73m2 [facility] Clin Pathology Specimen Plasma Performing Organization Address [facility] Phone Number [facility] PATHOLOGY [address] [place] [address] [facility] [address] [place] [address] Pathology POCT i-STAT Troponin (11/08/2019 12:49 PM EST) i-STAT Troponin I 0.00 0.00 - 0.08 ng/mL [facility] POC Specimen Whole Blood Performing Organization Address [facility] [place] Phone Number POINT OF CARE TEST [address] [place] [address] [place] [address] POC [address] [place] [address] 1ED EKG Interpretation (11/08/2019 12:18 PM EST) Narrative Performed At [facility] EXTERNAL NON-INTERFACED LAB 11/08/2019 1:34 PM 1ED EKG Interpretation Date/Time: 11/08/2019 12:18 PM Performed by: Don Lowe MD Authorized by: Don Lowe MD ECG reviewed by ED Physician in the absence of a leather leveler: yes Previous ECG: Previous ECG: Compared to current Comparison ECG info: 09-28-2016; sinus tachycardia, nonspecific ST and T wave abnormality Interpretation: Interpretation: abnormal Rate: ECG rate: 95 bpm ECG rate assessment: normal Rhythm: Rhythm: sinus rhythm Ectopy: Ectopy: none QRS: QRS axis: Left Conduction: Conduction: abnormal Abnormal conduction: incomplete RBBB T waves: T waves: normal Comments: No STEMI Performing Organization Address [facility] [place] Phone Number EXTERNAL NON-INTERFACED LAB POCT glucose, docked (11/08/2019 12:12 PM EST) Pathologist [facility] POC Glucose 412 (H) 70 - 140 mg/dL [facility] POC Specimen Whole Blood Performing Organization Address [facility] [place] Phone Number POINT OF CARE TEST [address] POC [address] [place] [address] EKG 12-LEAD - CMAXX REPORT (11/08/2019 12:08 PM EST) Narrative Performed At EKG 12 lead (11/08/2019 12:08 PM EST) Specimen Narrative Performed At Ventricular Rate: [facility] EKG 95 BPM Atrial Rate: 95 BPM P-R Interval: 128 ms QRS Duration: 130 ms Q-T Interval: 396 ms QTC Calculation(Bazett): 497 ms P [place]: 60 degrees R [place]: -85 degrees T [place]: 48 degrees : SINUS RHYTHM : LEFT AXIS DEVIATION : POSSIBLE LEFT ANTERIOR FASCICULAR BLOCK : RIGHT BUNDLE BRANCH BLOCK : CANNOT RULE OUT INFERO-LATERAL INFARCTION , AGE UNDETERMINED : NONSPECIFIC ST AND T WAVE ABNORMALITY : PROLONGED QTC : ABNORMAL ECG : WHEN COMPARED WITH ECG OF 28-SEP-2016 18:54, : RIGHT BUNDLE BRANCH BLOCK IS NOW PRESENT : POSSIBLE INFERO-LATERAL INFARCTION IS NOW PRESENT : Confirmed by MD QUIROGA DANIEL ([id number]) on 11/08/2019 12:48:02 : PM Procedure Note Interface, Received Via [employer] - 11/08/2019 12:48 PM EST Ventricular Rate: 95 BPM Atrial Rate: 95 BPM P-R Interval: 128 ms QRS Duration: 130 ms Q-T Interval: 396 ms QTC Calculation(Bazett): 497 ms P [place]: 60 degrees R [place]: -85 degrees T [place]: 48 degrees : SINUS RHYTHM : LEFT AXIS DEVIATION : POSSIBLE LEFT ANTERIOR FASCICULAR BLOCK : RIGHT BUNDLE BRANCH BLOCK : CANNOT RULE OUT INFERO-LATERAL INFARCTION , AGE UNDETERMINED : NONSPECIFIC ST AND T WAVE ABNORMALITY : PROLONGED QTC : ABNORMAL ECG : WHEN COMPARED WITH ECG OF 28-SEP-2016 18:54, : RIGHT BUNDLE BRANCH BLOCK IS NOW PRESENT : POSSIBLE INFERO-LATERAL INFARCTION IS NOW PRESENT : Confirmed by MD QUIROGA DANIEL ([id number]) on 11/08/2019 12:48:02 : PM Performing Organization Address City/State/Zipcode Phone Number [facility] EKG EKG 12-LEAD - CMAXX REPORT (11/08/2019 12:08 PM EST) Narrative Performed At EKG 12-LEAD - CMAXX REPORT (11/08/2019 12:08 PM EST) Narrative Performed At documented in this encounter Visit Diagnoses Diagnosis Chest pain - Primary Chest pain, unspecified 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 Essential hypertension Unspecified essential hypertension Hyperlipidemia Other and unspecified hyperlipidemia COPD (chronic obstructive pulmonary disease) Chronic airway obstruction, not elsewhere classified Thyroid nodule, cold Nontoxic uninodular goiter Hyperthyroidism Thyrotoxicosis 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 or other cause, without mention of thyrotoxic crisis or storm Chronic systolic heart failure GERD (gastroesophageal reflux disease) Esophageal reflux Ischemic cardiomyopathy Other specified forms of chronic ischemic heart disease Pulmonary hypertension Other chronic pulmonary heart diseases Stable angina Other and unspecified angina pectoris documented in this encounter Administered Medications Medication Order MAR Action Action Date Dose Rate Site aspirin chewable tablet 81 mg Given 11/09/2019 9:05 AM EST 81 mg 81 mg, Oral, Daily Standard, First dose on Wed11/09/19 at 0900, For 5 days atorvastatin (LIPITOR) tablet 80 mg Given 11/08/2019 9:49 PM EST 80 mg 80 mg, Oral, Every evening, First dose on Wed11/08/19 at 2100, For 5 days carvedilol (COREG) tablet 12.5 mg Given 11/09/2019 9:05 AM EST 12.5 mg 12.5 mg, Oral, 2 Times Daily With Meals, First dose (after last modification) on Wed11/09/19 at 0900, For 59 doses, Check vital signs before administering, furosemide (LASIX) tablet 40 mg Given 11/09/2019 9:05 AM EST 40 mg 40 mg, Oral, Daily Standard, First dose on Wed11/09/19 at 0900, For 30 days gabapentin (NEURONTIN) capsule 300 mg Given 11/09/2019 9:05 AM EST 300 mg 300 mg, Oral, Daily Standard, First dose on Wed11/09/19 at 0900, For 30 days insulin lispro (HumaLOG) injection MEDIUM Given 11/09/2019 12:28 PM EST 12 Units DOSE EATING INSULIN patients 1-16 Units 1-16 Units, Subcutaneous, Three Times Daily-With Meals, First dose on Wed11/09/19 at 0800, For 30 days, Nursing MUST open the 'SQ Insulin Dosing Charts' Sidebar Report, or, the Patient Summary or Summary Report within the ED. , Given 11/09/2019 9:04 AM EST 4 Units losartan (COZAAR) tablet 25 mg Given 11/09/2019 9:05 AM EST 25 mg 25 mg, Oral, Daily Standard, First dose on Wed11/09/19 at 0900, For 30 days, Check vital signs before administering, methIMAzole (TAPAZOLE) tablet 5 mg Given 11/09/2019 9:04 AM EST 5 mg 5 mg, Oral, Daily Standard, First dose on Wed11/09/19 at 0900, For 30 days pantoprazole (PROTONIX) EC tablet 40 mg Given 11/09/2019 9:04 AM EST 40 mg 40 mg, Oral, Daily Standard, First dose on Wed11/09/19 at 0900, For 30 days, Do not crush or chew, sodium chloride (preservative free) 0.9 % flush 3 mL 3 mL, Given by IV, PRN, Line Care, Starting Wed11/09/19 at 0848, For 288 hours , Flush now and after each use to [place]., ticagrelor (BRILINTA) tablet 90 mg Given 11/09/2019 9:05 AM EST 90 mg 90 mg, Oral, 2 Times Daily, First dose on Wed11/08/19 at 2100, For 30 days Given 11/08/2019 9:49 PM EST 90 mg tiotropium (SPIRIVA RESPIMAT) inhalation Given 11/09/2019 8:50 AM EST 2 puffs spray 2 puff 2 puff, Inhalation, Daily RT, First dose on Wed11/09/19 at 0800, For 5 days Medication Order MAR Action Action Date Dose Rate Site aspirin chewable tablet 162 mg Given 11/08/2019 1:48 PM EST 162 mg 162 mg, Oral, Once, Wed11/08/19 at 1315, For 1 dose, Chew tablet before swallowing., carvedilol (COREG) tablet 6.25 mg Given 11/08/2019 9:49 PM EST 6.25 mg 6.25 mg, Oral, 2 Times Daily With Meals, First dose on Wed11/08/19 at 1945, For 30 days, Check vital signs before administering, insulin glargine (LANTUS) injection 25 Given 11/09/2019 3:30 PM EST 25 Units Units 25 Units, Subcutaneous, Once, Wed11/09/19 at 1515, For 1 dose, For blood glucose less than 70 mg/dL: follow hypoglycemia protocol (CM H-09) and notify provider. For blood glucose values between 70 mg/dL and 100 mg/dL at bedtime: provide snack (15 grams of carbohydrates) with some protein. Administer FULL DOSE of insulin glargine (LANTUS) after snack. Record snack in I&O's. For blood glucose more than 400 mg/dL: notify provider, insulin glargine (LANTUS) injection 65 Given 11/08/2019 10:00 PM EST 65 Units Units 65 Units, Subcutaneous, Nightly, First dose on Wed11/08/19 at 1945, For 30 days, For blood glucose less than 70 mg/dL: follow hypoglycemia protocol ( ) and notify provider. For blood glucose values between 70 mg/dL and 100 mg/dL at bedtime: provide snack (15 grams of carbohydrates) with some protein. Administer FULL DOSE of insulin glargine (LANTUS) after snack. Record snack in I&O's. For blood glucose more than 400 mg/dL: notify provider, nitroglycerin (NITROSTAT) SL tablet 0.4 mg Given 11/08/2019 4:29 PM EST 0.4 mg 0.4 mg, Sublingual, Every 5 min PRN, Chest pain, Starting Wed11/08/19 at 1302, For 5 doses Given 11/08/2019 2:22 PM EST 0.4 mg documented in this encounter
--- OUTSIDE RECORDS SUMMARY | 2019-11-23 10:38 | XMS REPORT | Continuity of Care Document ---
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 [phone] Problems Active Problems Provider Date Long-term current use of insulin Vick Thompson MD Onset: 11/14/2019 Hemorrhage of rectum and anus Vick Thompson MD Onset: 11/14/2019 Gastroesophageal reflux disease Vick Thompson MD Onset: 07/14/2018 Social History Type Date Description Comments Sex Unknown Tobacco Use Start: Unknown End: Unknown Patient is a former smoker Smoking Status Reviewed: 11/14/19 Patient is a former smoker Allergies, Adverse Reactions, Alerts Active Allergies Reaction Severity Comments Date Levaquin 07/08/2017 Ondansetron 01/18/2017 Metformin Diarrhea Moderate 10/13/2019 Medications Active Medications SIG Qnty Indications Ordering Date Provider Sucralfate take 1 tablet by 120tabs Vick Parr 11/14/2019 1gm mouth before meals MD Donna Tablets and at bedtime Peg-3350/Electrolyte by mouth as 4000ml K62.5 Vick Parr 11/14/2019 s directed MD Donna 236gm Solution Rec Novolog Flexpen 10 units before 45units E11. Jamaal Garcia DO 10/12/2019 dinner 100Unit/ML Solution Pen-Inject Novolog Mix 70/30 30u in in the 45units E11. Jamaal Garcia DO 09/08/2019 Prefilled Flexpen morning (70-30)100Unit/ML Supn Albuterol Sulfate 1-2 puffs as Unknown 05/14/2019 HFA directed as needed 108(90Base) mcg/Act Aerosol Incruse Ellipta 1 puff once daily 30units J44.9 EuniceJamaal singh,DO 2018 62.5mcg/Inh Aerosol Levemir Flextouch inject 45 units 45units E11.69 EuniceJamaal singh,DO 2018 bid 100Unit/ML Solution Pen-Inject Jardiance Take 1 tablet by 90tabs E11.65 EuniceJamaal singh,DO 02/01/2019 10mg mouth daily for Tablets Type 2 diabetes Pantoprazole Sodium Take One Tablet By 60tabs EuniceJamaal singh,DO 05/26/2018 Mouth Twice A Day 40mg Tablets DR Atorvastatin Calcium 1 by mouth every Unknown 08/20/2017 evening 80mg Tablets Furosemide Take Two Tablets 180tabs Jamaal Garcia,DO 08/20/2017 20mg By Mouth Every Day Tablets Carvedilol Take One Tablet By 180tabs EuniceJamaal singh,DO 08/05/2017 6.25mg Mouth Twice A Day Tablets Novolog Flexpen 15 units before 45units E11.69 EuniceJamaal singh,DO 04/29/2017 each meal or per 100Unit/ML Solution sliding scale Pen-Inject Losartan Potassium Take One Tablet By Tomas Grimaldo MD Mouth Every 25mg Tablets Morning For Diabetic Kidney Protection Brilinta Take One Tablet By Unknown 90mg Tablets Mouth Twice A Day Methimazole Take One Tablet By Unknown 5mg Mouth Every Day Tablets History Medications Colyte With Flavor by mouth as 4000ml K62.5 Vick Thompson, 11/14/2019 - Packs directed 11/14/2019 240gm Solution Rec Immunizations Description No Information Available Vital Signs Date Vital Result Comment 11/14/2019 1:09pm Height 63 inches 5'3" Weight 196.00 lb BP Systolic 129 mmHg BP Diastolic 73 mmHg Heart Rate 82 /min BMI (Body Mass Index) 34.7 kg/m2 07/14/2018 2:33pm Height 63 inches 5'3" Weight 172.00 lb BP Systolic 144 mmHg BP Diastolic 74 mmHg Heart Rate 88 /min BMI (Body Mass Index) 30.5 kg/m2 Results Test Acquired Date Facility Test Result H/L Range Note Xray 09/15/2019 [facility] Radiology CT, Abd & Pelvis W/ <pending> Contrast Procedures Description No Information Available Medical Devices Description No Information Available Encounters Description No Information Available Assessments Date Code Description Provider 11/14/2019 K62.5 Hemorrhage of anus and rectum Vick Thompson MD 11/14/2019 Z79.4 [facility] (current) use of insulin Vick Thompson MD 11/14/2019 K21.9 Gastro-esophageal reflux disease without Vick Thompson MD esophagitis Plan of Treatment Future Appointment(s):02/01/2020 9:30 am - Vick Thompson MD at [facility]11/14/2019 - Vick Thompson MDK62.5 Hemorrhage of anus and rectumNew Medication:Peg-3350/Electrolytes 236 gm - by mouth as directedColyte With Flavor Packs 240 gm - by mouth as directedComments: RISKS AND BENEFITS OF THE PROCEDURE WERE DISCUSSED WITH PATIENT. I had a long discussion with thepatient and her regarding her need for colonoscopy. She has never had a colonoscopy. We discussed remaining on her Brilinta she understands if I encounter a large polyp I will have to leave it alone. She also will cut her insulin the day before and half. I am going to prescribe Carafate for her abdominal painZ79.4 [facility] (current) use of xxtmlpbF01.9 Gastro-esophageal reflux disease without esophagitis Functional Status Description No Information Available Mental Status Description No Information Available Referrals Description No Information Available
[2019-11-23 10:49] LABS: ABS Basophils 0.1 10^3/ul (0-0.2); ABS Eosinophils 0.1 10^3/ul (0-0.6); ABS Lymphocytes 0.8 10^3/ul (1.0-4.8); ABS Monocytes 0.5 10^3/ul (0-0.8); ABS Neutrophils 13.1 10^3/ul (1.5-7.7); Hematocrit 35 % (35-47); Hemoglobin 11.5 g/dL (12.0-16.0); Lymphocyte % 5.7 %; Mean Corpuscular HGB Conc 33 g/dL (31-36); Mean Corpuscular Hemoglobin 29 pg (27-31); Mean Corpuscular Volume 87 fL (80-97); Platelet Count 350 10^3/uL (150-450); Red Blood Count 3.97 10^6 /uL (3.70-4.87); Red Cell Distribution Width 16 % (10-15); White Blood Count 14.7 10^3/uL (3.5-10.8)
[2019-11-23] MEDS ORDERED: Iodixanol* (CONTRAST) 320 MG/ML 100 ML SDV IV ONE (11:03)
[2019-11-23 11:06] LABS: INR 0.97 (0.82-1.09)
[2019-11-23 11:11] LABS: Troponin I 0.02 ng/mL (<0.03)
[2019-11-23 11:13] LABS: Albumin 3.7 g/dL (3.2-5.2); Albumin/Globulin Ratio 1.1 (1-3); BUN/Creatinine Ratio 20.7 (8-20); Calcium 9.1 mg/dL (8.6-10.3); EGFR African American 61.7 (>60); Globulin 3.5 g/dL (2-4); Potassium 4.5 mmol/L (3.5-5.0); Total Bilirubin 0.7 mg/dL (0.2-1.0); Total Protein 7.2 g/dL (6.4-8.9)
[2019-11-23] MEDS ORDERED: Albuterol/Ipratropium NEB.SOL* Albuterol 2.5 MG/Ipratropium 0.5 MG 3 ML INH ONE (12:01)
[2019-11-23] MEDS ORDERED: methylPREDNISolone 125 MG* 2 ML VIAL IV ONE (12:01)
[2019-11-23] MEDS ORDERED: Nitroglycerin TAB 0.4 MG* 0.4 MG TAB SL ONE (12:01)
[2019-11-23] MEDS ORDERED: Acetaminophen TAB* 325 MG PO PRN (13:42)
[2019-11-23] MEDS ORDERED: Albuterol/Ipratropium NEB.SOL* Albuterol 2.5 MG/Ipratropium 0.5 MG 3 ML INH PRN (13:42)
[2019-11-23] MEDS ORDERED: Enoxaparin(*) 40 MG/0.4 ML SYR SUBCUT SCH (14:00)
[2019-11-23] MEDS ORDERED: Heparin DRIP 25,000 UNITS(*) 25,000 UNITS/500 ML BAG IV SCH (14:00)
[2019-11-23 14:13] LABS: Magnesium 2.1 mg/dL (1.9-2.7)
[2019-11-23] MEDS ORDERED: Dextrose 50% Syringe 50 ML* 25 GM/50 ML SYRINGE IV PUSH PRN (14:21)
[2019-11-23] MEDS ORDERED: Docusate CAP* 100 MG PO PRN (14:24)
--- NOTE | 2019-11-23 14:33 | CONSULT ---
Subjective Date of Service: 11/16/19 Interval History: Date of consult and admission 11/23/[address] Garcia Service: Hospitalist CC: Chest pain and dyspnea Reason for consult: CHF HPI April Chavez is a 54 year old woman well known to me from outpatient practice who was recently seen 2 days ago and ok. Regarding her angina, the 2019 angiogram films were reviewed this morning in detail with Dr. Dumont. She has severe diabetic vessels and the prospect of further revascularization ( except for veins grafts) is limited. Yesterday had a little bit of difficulty breathing, improved with inhalers Forgot to take all medications yesterday and has not taken any this morning This morning woke up with severe dyspnea Kept using inhalers which helped a little bit After inhalers felt angina of chest burning radiating to both arms and back Has had a total of 3 SL NTG Also received Iv lasix Making adequate UOP Breathing has improved Angina coming and going but currently pain free No palpitaitions or syncope No significant edema PMhx: thyrotoxicosis DM not at goal Using rolling walker due mostly to low back pain TN, CAD, PCI, CABG/MVR bioprosthetic 07/2017 ICM/CHF LVEF 40% HTN prior tobacco use PAD s/p multiple interventions diabetic foot wounds previously copd prior cva Surgical Hx: Coronary Artery Bypass Graft (CABG) - (08/10/2017) Hysterectomy Section Cataract Removal - bilateral Cholecystectomy Allergies: Zofran Levaquin 03/23/17 Metformin 11/28/18 Soc hx: prior tobacco use quit 07/2017 Occasional alcohol No drugs FH: Father: Rectal Cancer Coronary Artery Disease (CAD) - double bypass with TN Alcoholism, Hypercholesterolemia, Diabetes. Mother: Coronary Artery Disease (CAD) - CABG X 3 Diabetes, Alcoholism. due to Lung Cancer - age 72. SH: Marital: .Lives With: Family Disabled - since 2008. Medications Active Medications: Acetaminophen (Tylenol Tab*) 650 mg PO Q4H PRN PRN Reason: mild to moderate pain Albuterol/Ipratropium (Duoneb (Albuterol 2.5 Mg/Ipratropium 0.5 Mg)) 1 neb INH RT.[id number] AWAKE PRN PRN Reason: sob/wheexing Aspirin (Aspirin 81 Mg Chew Tab*) 81 mg PO DAILY PELON Atorvastatin Calcium (Lipitor*) 80 mg PO QPM PELON Carvedilol (Coreg Tab*) 6.25 mg PO BID [facility] Dextrose (D50w Syringe 50 Ml*) 12.5 gm IV PUSH .FOR FS < 60 - SS PRN PRN Reason: FS < 60 Docusate Sodium (Colace Cap*) 100 mg PO BID PRN PRN Reason: CONSTIPATION Enoxaparin Sodium (Lovenox(*)) 40 mg SUBCUT Q24H PELON Furosemide (Lasix Iv*) 40 mg IV DAILY PELON Gabapentin (Neurontin Cap(*)) 300 mg PO DAILY [facility] Insulin Glargine (Lantus(*)) 32 units SUBCUT QAM PELON Insulin Human Lispro (Humalog*) 0 units SUBCUT AC PELON; Protocol Losartan Potassium (Cozaar Tab*) 25 mg PO QAM PELON Methimazole (Tapazole Tab*) 5 mg PO DAILY PELON Pantoprazole Sodium (Protonix Tab*) 40 mg PO BID [facility] Ticagrelor (Brilinta*) 90 mg PO BID [facility] Home Medications: Atorvastatin* [Lipitor 80 MG*] 80 mg PO QPM 05/24/17 [History Confirmed 10/27/19 ] Furosemide TAB* [Lasix TAB*] 40 mg PO DAILY 05/24/17 [History Confirmed 10/27/19 ] Gabapentin CAP(*) [Neurontin 300 CAP(*)] 300 mg PO DAILY 05/24/17 [History Confirmed 10/27/19] Acetaminophen TAB* [Tylenol TAB*] 650 mg PO Q4H PRN tab 05/26/18 [Rx Confirmed 10/27/19] Docusate CAP* [Colace Cap*] 100 mg PO BID PRN cap 05/26/18 [Rx Confirmed ] Albuterol HFA INHALER* [Ventolin HFA Inhaler*] 1 - 2 puff INH Q6H PRN 09/15/19 [ History Confirmed 10/27/19] Aspirin 81 mg CHEW TAB* 81 mg PO DAILY 09/15/19 [History Confirmed 10/27/19] Pantoprazole TAB * [Protonix TAB*] 40 mg PO BID 09/15/19 [History Confirmed 01/11] Umeclidinium 62.5 MDI(NF) [Incruse ELLIPTA MDI (NF)] 1 puff INH DAILY 09/15/19 [ History Confirmed 10/27/19] Carvedilol TAB* [Coreg TAB*] 6.25 mg PO BID tab 10/30/19 [Rx] Insulin Detemir [Levemir Flextouch 100 units/ml 3 ml x 5 Pens] 80 units SUBCUT QAM #0 10/30/19 [Rx Confirmed 10/27/19] Insulin Lispro [Humalog Kwikpen] 10 unit SUBCUT AC #1 box 10/30/19 [Rx] Losartan TAB* [Cozaar TAB*] 25 mg PO QAM #0 10/30/19 [Rx Confirmed 10/27/19] Methimazole TAB* [Tapazole TAB*] 5 mg PO DAILY #30 tab 10/30/19 [Rx] Ticagrelor* [Brilinta 90 MG*] 90 mg PO BID #60 tab 10/30/19 [Rx] Review of Systems - Measurements Intake and Output: Intake and Output Last 24 Hours 11/21/19 11/22/19 11/23/19 11/24/19 06:59 06:59 06:59 06:59 Weight 195 lb - Review of Systems Constitutional Symptoms: Negative: Fatigue, Fever Dermatology: Negative: Rash, Skin Lesions HEENT: Negative: Change in Hearing, Vertigo Eyes: Negative: Change in Vision, Double Vision Thyroid: Negative: Thyroid Nodule, Cold Intolerance, Heat Intolerance, Palpitations Pulmonary: Positive: Respiratory Distress, Shortness of Breath, COPD, Exercise Intolerance Negative: Sputum, Hemoptysis, Wheezing, Asthma, Home Oxygen Cardiology: Positive: Chest Pain, Shortness of Breath, Peripheral Vascular Dis, Orthopnea Negative: Palpitations, Swelling of Ankles, Edema, Syncope Gastroenterology: Negative: Blood in Stools, Haematemesis, Melena Genital - Urinary: Negative: Dysuria, Hematuria Musculoskeletal: Negative: Joint Pain, Joint Stiffness Endocrinology: Positive: Diabetes, Diabetic Foot Ulcers Hematologic/Lymphatic: Positive: Use of Antiplatelet Drugs Negative: Use of Anticoagulant Neurology: Positive: Hx of Stroke\\TIA Negative: Change in Speech, Hx Seizures Psychiatry: Negative: Unusual Anxiety, Suicidal Ideation Allergic/Immunologic: Negative: Hx HIV, Immunocompromise Review of Systems Statement: All other review of systems negative, unless stated above. Objective Vital Signs: Temp Pulse Resp BP Pulse Ox 97.3 F 81 17 139/85 98 11/23/19 10:20 11/23/19 13:28 11/23/19 13:20 11/23/19 13:28 11/23/19 13:28 Appearance: mildly uncomfortable but conversant and not toxic appearing Ears/Nose/Mouth/Throat: Clear Oropharnyx Neck: - - neck enlarged, uncertain jvp Respiratory: - - mildly increased work of breathing, bibasilar rales Cardiovascular: RRR, - - no significant murmur, sternotomy scar intact, mild edema Abdominal: NL Sounds; No Tenderness; No Distention Extremities: No Clubbing, Cyanosis Skin: No Rash or Ulcers Neurological: Alert and Oriented x 3 Laboratory Results: 11/23/19 10:41 11/23/19 10:41 INR (Anticoag Therapy) 0.97 (0.82-1.09) 11/23/19 10:42 Total Bilirubin 0.70 mg/dL (0.2-1.0) 11/23/19 10:41 AST 14 U/L (13-39) 11/23/19 10:41 ALT 13 U/L (7-52) 11/23/19 10:41 Alkaline Phosphatase 136 U/L (34-104) H 11/23/19 10:41 B-Natriuretic Peptide 443 pg/mL (<=100) H 11/23/19 10:41 Total Protein 7.2 g/dL (6.4-8.9) 11/23/19 10:41 Albumin 3.7 g/dL (3.2-5.2) 11/23/19 10:41 Globulin 3.5 g/dL (2-4) 11/23/19 10:41 Albumin/Globulin Ratio 1.1 (1-3) 11/23/19 10:41 11/23/19 11/23/19 10:41 13:26 Troponin I 0.02 0.02 01/2019 hgba1c 9.8 05/2018 tri 170, tchol 81, ldl 18, hdl 21 08/20/2019 wbc 7.4, hgb 13.7, plts 222 na 130, k 4.8, cr 1.7 lfts normal except alk phos 193 cTnI 0.03 to 0.02 07/19/2019 cr 1.9 10/27/2019 hgb 13.3, plts 246 tsh 0.09, free t4 1.41 lfts normal except alk phos 201 bnp 120 10/28/2019 tri 193, tchol 97, ldl 25, hdl 34 hgba1c 12.2 peak cTnI 0.42 10/30/2019 na 140, k 3.9, cr 1.43 mg 2.3 Diagnostic Imaging: From prior note" Lexiscan 08/2019 stress MPI provoked self-resolved ischemic symptoms (Chest, neck and right arm discomfort). - Small sized anteroapical ischemic defect, from 10/2018 angiogram she is known to have an occluded pLAD (new since cabg) and patent vein graft that would account for this not supplying enough blood flow at peak vasodilator stress - Inferior/inferolateral wall infarct with very significant hari-infarct ischemia. Similar to stress test from 10/2018 in which a vein graft supplied an occluded proximal Lcx. The RCA is known to be a small vessel occluded in mid section from 07/2017 angiogram" Cardiac Procedures: Cardiac Catheterization - (11/22/2018) Proximal LAD and proximal left circumflex artery are occluded. Right coronary artery was noted to be small and nondominant. Saphenous vein graft to the LAD and saphenous vein graft to the left circumflex are open and patent. Cardiac Catheterization - (05/04/2011) Atypical chest pain: Patent pLcx and OM stents, small vessel disease distal Lcx and OM Moderate mid LAD disease Severe stenosis of small RCA not optimal for PCI LVEF 40-45% with inferior hypokinesis Cardiac Catheterization - (06/04/2015) Chest pain, abnormal stress test (partially reversible anterior wall defect) R groin: LM no significant disease. Diffuse LAD disease, 60-70% lesion prior to prior to mid LAD stent, 70% distal LAD disease (+ FFR distally). Diffuse D1 disease wtih 75% lesion too small for PCI Patent OM stent Severe distal Lcx/LPDA (co-dominant) small vessel disease not a PCI target RCA thin severely disease co-dominant vessel in middle up to 80-90% LV gram 55% with mild posterobasal hypokinesis R common iliac severe PAD No PCI performed Cardiac Catheterization - PCI 2004 PCI 2006 Cardiac Catheterization - (08/02/2017) Dr. Darby [facility] left femoral artery/vein indication recent TN and mitral regurgitantion. PAP 68/32 mmHg, Mean PCWP 34 mmhg with v waves 55-60 mmhg consistent with severe MR. 50% mLAD (+FFR 0.79 distally), 90% Lcx proximal in stent restenosis (culprit), 70% distal OM3, non- dominent RCA has mid [employer] Left common femoral patent Subtotal occlusion right common femoral extending into SFA, moderate ostial profunda stenosis at ostium. Possible 3 vessel funoff with limited views below politeal artery Peripheral Angiography and Angioplasty - (08/04/2017) Dr. Bernard [facility]. Left femoral approach. LAD FFR 0.79. Right common femoral artery angioplasty with good flow in SFA and slow flow into profunda Peripheral Angiogram - (08/16/2017) Dr. Bernard. Residual stenosis of right CVA with improved flow, focal moderate stenosis of right PT, AT no significant disease, peroneal is small diffusely diseased vessel Multi-Vessel Coronary Artery Bypass Grafting - (08/10/2017) Dr. Soto [facility]: Vein graft to LAD and vein graft to marginal, MVR with epic # 29 bioprosthesis. Exam Date: 11/23/19 CTA CHEST IMPRESSION: 1. NO PULMONARY ARTERIAL FILLING DEFECT TO SUGGEST PULMONARY EMBOLISM. 2. HILAR AND MEDIASTINAL LYMPHADENOPATHY. THE DIFFERENTIAL INCLUDES METASTATIC LYMPHADENOPATHY. 3. SMALL BILATERAL PLEURAL EFFUSIONS. 4. ENLARGED THYROID WITH A LARGE LEFT THYROID NODULE AND EXTENSION INTO THE ANTERIOR MEDIASTINUM. EKG Data: ekg on admission NSr 100 bpm, RBBB, old IWMI similar to 10/28/2019 Assessment/Plan In summary, April Chavez is a 54 year old woman with a history as above admitted with acute on chronic CHF exacerbation and unstable angina secondary to missing medications - Restart home medications as above including coreg now (ordered) - Start additional anti-anginal imdur 30 mg po daily (ordered) - Continue IV diuresis and monitor I/O, weights and BMP (latter ordered for tomorrow) - Diabetic control and medication adherence emphasized to reduce risk of recurrent cardiovascular events and - Evaluation and management of thyrotoxicosis as per Primary service - Further medication recommendations pending clinical course - Will follow Thank you for allowing me to participate in the cardiovascular care of this patient. Please do not hesitate to contact me with questions or concerns.
[2019-11-23] MEDS ORDERED: Carvedilol TAB* 6.25 MG PO SCH ×2 (15:00→21:00)
--- NOTE | 2019-11-23 16:45 | HP ---
CC: Dr. Jamaal Garcia; Dr. Tomas Grimaldo; Dr. Hector Ramírez * HISTORY AND PHYSICAL: DATE OF ADMISSION: 11/23/19 PRIMARY CARE PROVIDER: Dr. Jamaal Garcia. OTHER PROVIDERS: Dr. Tomas Grimaldo, Dr. Hector Ramírez. ATTENDING PHYSICIAN: Dr. Glen Hansen * (dictated by MADDIE Bah). CHIEF COMPLAINT: 1. Chest pain. 2. Shortness of breath. HISTORY OF PRESENT ILLNESS: Ms. Chavez is a 54-year-old female with a past medical history of CAD status post CABG and stenting; uncontrolled diabetes, insulin dependent; heart failure, reduced ejection fraction of 40% to 45%; hypertension; hyperlipidemia; PVD, who presented to the ER today with complaints of chest pain. She states that she was lying flat with her head elevated on 1 pillow and woke at 0800 this morning with sudden onset shortness of breath. Shortly after this, she developed chest pain. She describes the chest pain as a burning in the left anterior and posterior chest that radiates to bilateral upper extremities. She states that the pain is worse with deep breathing. After the onset of the pain, the patient got up, went to the bathroom, and used her inhalers as well as took 2 doses of nitroglycerin, one at 1845, one at 0915. She experienced mild relief with those interventions, but did continue to have chest pain. She reports intermittent chest pain since that time, although denies chest pain at this current time. She is still short of breath. She is currently on 5 L of oxygen to keep oxygen saturation greater than 92%. She does not typically wear oxygen at home. The patient complains of postural nocturnal dyspnea and states that she typically uses 1 pillow to sleep but has been requiring more elevation recently. She complains of dyspnea on exertion as well as a nonproductive cough and wheeze. She denies lower extremity edema. She reports no changes to her diet and has in fact decreased her salt intake and is trying to adhere to a 1500 to 2000 mg per day sodium restriction. She does report that she missed her furosemide 40 yesterday and has missed 1 to 2 other doses in the last 2 weeks. Her sewing machine repairer is Dr. Grimaldo who she saw 2 days ago and recommended outpatient stress testing. Currently, the patient denies vision changes, dizziness, lightheadedness, headache, chest pain. She does complain of shortness of breath, nonproductive cough, wheeze, dyspnea on exertion, PND. She denies abdominal pain, nausea, vomiting, diarrhea, constipation, myalgias, arthralgias. In the ER, the patient received a full workup. She had a mild leukocytosis, a mildly decreased hemoglobin. Her creatinine was elevated, but within her baseline. Her BNP was elevated above baseline. She has a chronically elevated alkaline phosphatase. EKG showed right bundle-branch block and mild ST depression in V2, V3. Chest x-ray shows chronic interstitial lung disease and possible interstitial pulmonary edema. CTA of the chest was negative for PE, positive for lymphadenopathy, bilateral pleural effusions, and enlarged thyroid plus nodule. In the ER, the patient received DuoNebs, methylprednisolone, and nitro 0.4 and the hospitalist team was asked to evaluate the patient for admission. PAST MEDICAL HISTORY: 1. CAD status post CABG, stenting. 2. Uncontrolled diabetes mellitus, hemoglobin A1c 12.2, insulin dependent. 3. Heart failure, reduced ejection fraction of 40% to 45%, October 2018. 4. Hypertension. 5. Hyperlipidemia. 6. Hyperthyroidism with multiple nodules, followed by Dr. Hector Ramírez. 7. COPD. 8. History of TIA. 9. PVD. 10. GERD. 11. Anemia. 12. History of mitral valve disease status post mitral valve replacement. PAST SURGICAL HISTORY: CABG, 4 cardiac stents, MVR, hysterectomy, cholecystectomy. HOME MEDICATIONS: 1. Acetaminophen 650 mg p.o. q.4 hours p.r.n. 2. Albuterol HFA inhaler 1 to 2 puffs inhalation q.6 hours p.r.n. 3. Aspirin 81 mg p.o. daily. 4. Atorvastatin 80 mg p.o. at bedtime. 5. Carvedilol 6.25 mg p.o. b.i.d. 6. Docusate 100 mg p.o. b.i.d. p.r.n. 7. Furosemide 40 mg p.o. daily. 8. Gabapentin 300 mg p.o. daily. 9. Insulin detemir 80 units subcu q.a.m. 10. Insulin lispro 10 units subcu a.c. 11. Losartan 25 mg p.o. q.a.m. 12. Methimazole 5 mg p.o. daily. 13. Pantoprazole 40 mg p.o. b.i.d. 14. Ticagrelor 90 mg p.o. b.i.d. 15. Umeclidinium 62.5 MDI 1 puff inhalation daily. DRUG ALLERGIES: METFORMIN, diarrhea; LEVOFLOXACIN, nausea and vomiting; ONDANSETRON, hives. FAMILY HISTORY: Mother at the age of 72 from aspiration pneumonia; prior to that, she had coronary artery disease status post CABG. Father at the age of 72, he had a history of CAD status post CABG, rectal cancer with colostomy, he developed ischemic bowel and sepsis, which led to his . Paternal grandfather had lung cancer. Maternal grandmother had heart failure. SOCIAL HISTORY: The patient has an 82-year pack history of smoking, she quit 2 years ago. She drinks less than weekly. She does not use any illicit drugs. 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 In the event that she is unable to make her own medical decisions, she has appointed her daughter, Galina Ortega or her , Bailee Chavez to be her surrogate decision makers. REVIEW OF SYSTEMS: A 14-point review of systems has been performed and all the pertinent positives and negatives are in the HPI, all other systems are negative. PHYSICAL EXAMINATION GENERAL: Ms. Chavez is a well-developed, well-nourished, overweight, middle- aged white female, who appears older than her stated age. She has increased work of breathing and is currently on 5 L of oxygen, although she is able to speak in full sentences. HEENT: PERRL. EOMI. Visual herrera grossly intact. Sclerae are nonicteric. Hearing is grossly intact. Oral mucous membranes are mildly dry. The patient is edentulous. Tongue is at midline. Palate elevates symmetrically. PULMONARY: Symmetrical chest expansion. Mild use of accessory muscles. There are faint bibasilar rales without wheeze or rhonchi. CARDIOVASCULAR: Regular rate and rhythm with S1, S2 present. There are no murmurs, rubs, clicks, or gallops. There is no JVD. There is trace bilateral lower extremity pitting edema, pretibial. ABDOMEN: Bowel sounds in all quadrants. Soft, nontender to palpation. MUSCULOSKELETAL: Full range of motion. No pain or deformities. NEURO: The patient is awake. She is alert and oriented x3. Cranial nerves II through XII are grossly intact. She is able to move all of her extremities. Her motor strength is 5/5 bilaterally in upper and lower extremities. DIAGNOSTIC STUDIES/LAB DATA: CBC: WBC 14.7, hemoglobin 11.5, hematocrit 35, platelets 350. CMP: Sodium 140, potassium 4.5, chloride 107, carbon dioxide 24, creatinine 1.11, BUN 23, glucose 162. Alk phos 136. Troponin 0.02, 0.02. BNP 443. EKG: Sinus tachycardia with a rate of 101, right bundle-branch block; ST depressions in leads V2, V3, previously T wave inversion in these leads in October 2018. Chest x-ray, impression: Prominence of the interstitial markings likely secondary to chronic interstitial lung disease, the possibility of superimposed interstitial pulmonary edema cannot be ruled out. CTA chest, impression: No pulmonary arterial filling defect to suggest pulmonary embolism. Hilar and mediastinal lymphadenopathy. The differential includes metastatic lymphadenopathy. Small bilateral pleural effusions. Enlarged thyroid with a large left thyroid nodule and extension into the anterior mediastinum. ASSESSMENT AND PLAN: Ms. Chavez is a 54-year-old female with a past medical history of coronary artery disease status post coronary artery bypass grafting and stenting; uncontrolled diabetes, insulin dependent; heart failure, reduced ejection fraction of 40% to 45%; hypertension; hyperlipidemia; peripheral vascular disease who presented to the ER today with complaints of chest pain and dyspnea. The patient will be admitted for: 1. Chest pain. The patient presents with multiple days of chest pain. Today' s episode began at 0800 this morning and has been intermittent since then. She has associated shortness of breath. Her heart score is 5. She recently saw Dr. Grimaldo who recommended stress test outpatient. Dr. Grimaldo was consulted and plans to see the patient this afternoon. The patient's risk factors include history of coronary artery disease, diabetes mellitus, hypertension, hyperlipidemia, obesity, positive family history, and an 82-pack year smoking history. Her LDL is well controlled at 25 and this will not be repeated as it was done at the beginning of this month. Her hemoglobin A1c is 12.2 indicating poor control. This was also performed at the beginning of the month and therefore will not be repeated. Cardiology consult has been ordered and Dr. Grimaldo plans to see the patient today to make further recommendations. Continue home atorvastatin, aspirin, ticagrelor, carvedilol and transition to IV furosemide. Continue to trend troponins for a total of 3. Plan for repeat EKG in the morning. ticagrelor 2. Heart failure, reduced ejection fraction. The patient is likely in heart failure exacerbation at this time. She did miss a dose of Lasix, which could certainly contribute, although the patient could be experiencing acute coronary syndrome, which is a possible culprit as well. She will be given Lasix 40 IV today and started on Lasix 40 IV daily with plans to transition to oral once her breathing improved. At this time, she is currently on 5 L O2 per nasal cannula. Plan is to wean O2 as able. Intake, output, and daily weights have been ordered. She will continue her home carvedilol and losartan. 3. Leukocytosis. Patient denies symptoms of infection. I suspect this is reactive. We will repeat CBC in the morning. 4. Mediastinal lymphadenopathy. This was an incidental finding noted on CT scan. She may require further work up to determine cause of lymphadenopathy in the outpatient setting. 5. Diabetes mellitus. The patient's home long-acting insulin will be halved with increase as necessary. She will be placed on lispro sliding scale. 6. Hypertension. Continue losartan. The patient will be placed on IV furosemide. Continue carvedilol with hold parameters. 7. Hyperlipidemia. The patient's LDL is 25, well controlled. Continue home atorvastatin. 8. Chronic obstructive pulmonary disease. The patient does not appear to be in exacerbation. Continue Incruse and albuterol. 9. Hyperthyroidism with nodules. Nodules also noted on CTA of the chest. The patient follows with Dr. Hector Ramírez for this. She will continue her methimazole while inpatient. 10. Gastroesophageal reflux disease. Continue pantoprazole. 11. DVT prophylaxis. According to DVT Risk Assessment, the patient scores 2 placing her at moderate risk. She has been started on heparin drip. 12. Code status. Full code. TIME SPENT: Approximately 65 minutes was spent on this admission, greater than half of that time was spent [id number] with the patient obtaining history, performing physical, and reviewing the plan of care. The case has been discussed with my attending, Dr. Hansen, who is in agreement with the plan of care. JADEN ALVARADO, MADDIE [id number]/[facility] #: [id number] [facility] MEDICAL CENTERJoan
[2019-11-23] MEDS: Enoxaparin(*) 40 MG/0.4 ML SYR SUBCUT SCH (16:53)
[2019-11-23] MEDS: Isosorbide Mononitrate ER TAB* 30 MG PO SCH (16:54)
[2019-11-23] MEDS: Furosemide IV* 10 MG/ML VIAL (40 MG) IV SCH (16:54)
[2019-11-23] MEDS: Carvedilol TAB* 6.25 MG PO SCH ×2 (16:55→21:35)
[2019-11-23] MEDS: Atorvastatin* 80 MG TAB PO SCH (17:25)
[2019-11-23] MEDS: Insulin LISPRO* 1 UNITS UNIT SUBCUT SCH (17:25)
[2019-11-23] MEDS: Ticagrelor* 90 MG TAB PO SCH (21:35)
[2019-11-23] MEDS: Pantoprazole TAB * 40 MG TAB PO SCH (21:35)
[2019-11-24 05:41] LABS: Calcium 8.7 mg/dL (8.6-10.3)
[2019-11-24 05:46] LABS: BUN/Creatinine Ratio 28.6 (8-20); EGFR African American 50.1 (>60); EGFR Non-African American 41.4 (>60)
[2019-11-24 06:11] LABS: ABS Lymphocytes 0.6 10^3/ul (1.0-4.8); ABS Monocytes 0.3 10^3/ul (0-0.8); ABS Neutrophils 7.1 10^3/ul (1.5-7.7); Hematocrit 31 % (35-47); Hemoglobin 10.4 g/dL (12.0-16.0); Lymphocyte % 7.7 %; Mean Corpuscular HGB Conc 33 g/dL (31-36); Mean Corpuscular Hemoglobin 29 pg (27-31); Mean Corpuscular Volume 86 fL (80-97); Mean Platelet Volume 8.5 fL (7.4-10.4); Nucleated Red Blood Cells % 0.1; Platelet Count 315 10^3/uL (150-450); Red Blood Count 3.62 10^6 /uL (3.70-4.87); Red Cell Distribution Width 16 % (10-15)
--- NOTE | 2019-11-24 08:09 | PN ---
Subjective Date of Service: 11/24/19 Interval History: f/u adhf and unstable angina secondary to inadvertent medication nonadherence had chest pressure last night not similar to angina discomfort no ekg changes none this AM breathing better, not back to normal tele sinus, no arrhythmias Medications Active Medications: Acetaminophen (Tylenol Tab*) 650 mg PO Q4H PRN PRN Reason: mild to moderate pain Albuterol/Ipratropium (Duoneb (Albuterol 2.5 Mg/Ipratropium 0.5 Mg)) 1 neb INH [id number] AWAKE PRN PRN Reason: sob/wheexing Aspirin (Aspirin 81 Mg Chew Tab*) 81 mg PO DAILY [facility] Atorvastatin Calcium (Lipitor*) 80 mg PO QPM [facility] Last Admin: 11/23/19 17:25 Dose: 80 mg Carvedilol (Coreg Tab*) 12.5 mg PO BID [facility] Dextrose (D50w Syringe 50 Ml*) 12.5 gm IV PUSH .FOR FS < 60 - SS PRN PRN Reason: FS < 60 Docusate Sodium (Colace Cap*) 100 mg PO BID PRN PRN Reason: CONSTIPATION Enoxaparin Sodium (Lovenox(*)) 40 mg SUBCUT Q24H [facility] Last Admin: 11/23/19 16:53 Dose: 40 mg Furosemide (Lasix Iv*) 40 mg IV DAILY [facility] Last Admin: 11/23/19 16:54 Dose: 40 mg Gabapentin (Neurontin Cap(*)) 300 mg PO DAILY [facility] Insulin Glargine (Lantus(*)) 32 units SUBCUT QAM [facility] Insulin Human Lispro (Humalog*) 0 units SUBCUT AC [facility]; Protocol Last Admin: 11/23/19 17:25 Dose: 6 units Isosorbide Mononitrate (Imdur Er Tab*) 30 mg PO DAILY [facility] Last Admin: 11/23/19 16:54 Dose: 30 mg Losartan Potassium (Cozaar Tab*) 25 mg PO QAM [facility] Methimazole (Tapazole Tab*) 5 mg PO DAILY [facility] Pantoprazole Sodium (Protonix Tab*) 40 mg PO BID [facility] Last Admin: 11/23/19 21:35 Dose: 40 mg Ticagrelor (Brilinta*) 90 mg PO BID [facility] Last Admin: 11/23/19 21:35 Dose: 90 mg Objective Vital Signs: Temp Pulse Resp BP Pulse Ox 96.3 F 80 12 139/64 99 11/24/19 07:15 11/24/19 07:15 11/24/19 07:15 11/24/19 07:15 11/24/19 07:15 Oxygen Devices in Use Now: Nasal Cannula Appearance: nad, pleasant Ears/Nose/Mouth/Throat: Clear Oropharnyx Neck: - - uncertain jvp Respiratory: Symmetrical Chest Expansion and Respiratory Effort, - - mild crackles right base Cardiovascular: RRR, - - no significant murmur, sternotomy scar intact, trace Abdominal: NL Sounds; No Tenderness; No Distention Extremities: No Clubbing, Cyanosis Skin: No Rash or Ulcers Neurological: Alert and Oriented x 3 Laboratory Results: 11/24/19 05:15 11/24/19 05:17 INR (Anticoag Therapy) 0.97 (0.82-1.09) 11/23/19 10:42 APTT 30.5 seconds (26.0-38.0) 11/23/19 10:35 Total Bilirubin 0.70 mg/dL (0.2-1.0) 11/23/19 10:41 AST 14 U/L (13-39) 11/23/19 10:41 ALT 13 U/L (7-52) 11/23/19 10:41 Alkaline Phosphatase 136 U/L (34-104) H 11/23/19 10:41 B-Natriuretic Peptide 443 pg/mL (<=100) H 11/23/19 10:41 Total Protein 7.2 g/dL (6.4-8.9) 11/23/19 10:41 Albumin 3.7 g/dL (3.2-5.2) 11/23/19 10:41 Globulin 3.5 g/dL (2-4) 11/23/19 10:41 Albumin/Globulin Ratio 1.1 (1-3) 11/23/19 10:41 11/23/19 11/23/19 11/23/19 10:41 13:26 16:03 Troponin I 0.02 0.02 0.02 Diagnostic Imaging: From prior note" S[place]an 08/2019 stress MPI provoked self-resolved ischemic symptoms (Chest, neck and right arm discomfort). - Small sized anteroapical ischemic defect, from 10/2018 angiogram she is known to have an occluded pLAD (new since cabg) and patent vein graft that would account for this not supplying enough blood flow at peak vasodilator stress - Inferior/inferolateral wall infarct with very significant hari-infarct ischemia. Similar to stress test from 10/2018 in which a vein graft supplied an occluded proximal Lcx. The RCA is known to be a small vessel occluded in mid section from 07/2017 angiogram" Cardiac Procedures: Cardiac Catheterization - (11/22/2018) Proximal LAD and proximal left circumflex artery are occluded. Right coronary artery was noted to be small and nondominant. Saphenous vein graft to the LAD and saphenous vein graft to the left circumflex are open and patent. Cardiac Catheterization - (05/04/2011) Atypical chest pain: Patent pLcx and OM stents, small vessel disease distal Lcx and OM Moderate mid LAD disease Severe stenosis of small RCA not optimal for PCI LVEF 40-45% with inferior hypokinesis Cardiac Catheterization - (06/04/2015) Chest pain, abnormal stress test (partially reversible anterior wall defect) R groin: LM no significant disease. Diffuse LAD disease, 60-70% lesion prior to prior to mid LAD stent, 70% distal LAD disease (+ FFR distally). Diffuse D1 disease wtih 75% lesion too small for PCI Patent OM stent Severe distal Lcx/LPDA (co-dominant) small vessel disease not a PCI target RCA thin severely disease co-dominant vessel in middle up to 80-90% LV gram 55% with mild posterobasal hypokinesis R common iliac severe PAD No PCI performed Cardiac Catheterization - PCI 2004 PCI 2006 Cardiac Catheterization - (08/02/2017) Dr. Darby [facility] left femoral artery/vein indication recent AL and mitral regurgitantion. PAP 68/32 mmHg, Mean PCWP 34 mmhg with v waves 55-60 mmhg consistent with severe MR. 50% mLAD (+FFR 0.79 distally), 90% Lcx proximal in stent restenosis (culprit), 70% distal OM3, non- dominent RCA has mid [employer] Left common femoral patent Subtotal occlusion right common femoral extending into SFA, moderate ostial profunda stenosis at ostium. Possible 3 vessel funoff with limited views below politeal artery Peripheral Angiography and Angioplasty - (08/04/2017) Dr. Bernard [facility]. Left femoral approach. LAD FFR 0.79. Right common femoral artery angioplasty with good flow in SFA and slow flow into profunda Peripheral Angiogram - (08/16/2017) Dr. Bernard. Residual stenosis of right CVA with improved flow, focal moderate stenosis of right PT, AT no significant disease, peroneal is small diffusely diseased vessel Multi-Vessel Coronary Artery Bypass Grafting - (08/10/2017) Dr. Soto [facility]: Vein graft to LAD and vein graft to marginal, MVR with epic # [id number] bioprosthesis. Exam Date: 11/23/19 CTA CHEST IMPRESSION: 1. NO PULMONARY ARTERIAL FILLING DEFECT TO SUGGEST PULMONARY EMBOLISM. 2. HILAR AND MEDIASTINAL LYMPHADENOPATHY. THE DIFFERENTIAL INCLUDES METASTATIC LYMPHADENOPATHY. 3. SMALL BILATERAL PLEURAL EFFUSIONS. 4. ENLARGED THYROID WITH A LARGE LEFT THYROID NODULE AND EXTENSION INTO THE ANTERIOR MEDIASTINUM. EKG Data: ekg on admission NSr 100 bpm, RBBB, old IWMI similar to 10/28/2019 Assessment/Plan In summary, April Chavez is a 54 year old woman with a history as per consult note admitted with acute on chronic CHF exacerbation and unstable angina secondary to missing medications - Increase coreg from 6.25 to 12.5 mg po bid (ordered) - Continue IV diuresis and monitor I/O, weights and BMP - Diabetes, thyrotoxicosis and CT scan findings evaluation and management as per Primary service - Further medication recommendations pending clinical course - Will follow Thank you for allowing me to participate in the cardiovascular care of this patient. Please do not hesitate to contact me with questions or concerns.
[2019-11-24] MEDS: Furosemide IV* 10 MG/ML VIAL (40 MG) IV SCH (08:33)
[2019-11-24] MEDS: Isosorbide Mononitrate ER TAB* 30 MG PO SCH (08:35)
[2019-11-24] MEDS: Carvedilol TAB* 6.25 MG PO SCH ×2 (08:35→21:09)
[2019-11-24] MEDS: Pantoprazole TAB * 40 MG TAB PO SCH ×2 (08:35→21:09)
[2019-11-24] MEDS: Gabapentin CAP(*) 300 MG PO SCH (08:35)
[2019-11-24] MEDS: Losartan TAB* 25 MG PO SCH (08:36)
[2019-11-24] MEDS: Aspirin 81 mg CHEW TAB* 81 MG TAB.CHEW PO SCH (08:36)
[2019-11-24] MEDS: Ticagrelor* 90 MG TAB PO SCH ×2 (08:36→21:09)
[2019-11-24] MEDS: Insulin LISPRO* 1 UNITS UNIT SUBCUT SCH ×5 (08:37→21:10)
[2019-11-24] MEDS: Methimazole TAB* 5 MG PO SCH (08:39)
[2019-11-24] MEDS: Insulin GLARGINE(*) 1 UNITS UNIT SUBCUT SCH (08:49)
--- NOTE | 2019-11-24 14:10 | PN ---
Subjective Date of Service: 11/24/19 Interval History: Ms. Chavez is feeling better today. Chest pain is improving, but still present intermittently. No aggravating or relieving factors and pain can last minutes or hours. Last episode of pain was mild, overnight last night. Denies SOB, nausea, diaphoresis. No concerns from nursing. Family History: Unchanged from Admission Social History: Unchanged from Admission Past Medical History: Unchanged from Admission Objective Active Medications: Acetaminophen (Tylenol Tab*) 650 mg PO Q4H PRN mild to moderate pain Albuterol/Ipratropium (Duoneb (Albuterol 2.5 Mg/Ipratropium 0.5 Mg)) 1 neb INH [id number] AWAKE PRN sob/wheexing Aspirin (Aspirin 81 Mg Chew Tab*) 81 mg PO DAILY [facility] Atorvastatin Calcium (Lipitor*) 80 mg PO QPM [facility] Carvedilol (Coreg Tab*) 12.5 mg PO BID [facility] Dextrose (D50w Syringe 50 Ml*) 12.5 gm IV PUSH .FOR FS < 60 - SS PRN FS < 60 Docusate Sodium (Colace Cap*) 100 mg PO BID PRN [facility]ST[facility] Enoxaparin Sodium (Lovenox(*)) 40 mg SUBCUT Q24H [facility] Furosemide (Lasix Iv*) 40 mg IV DAILY [facility] Gabapentin (Neurontin Cap(*)) 300 mg PO DAILY [facility] Insulin Glargine (Lantus(*)) 32 units SUBCUT QAM [facility] Insulin Human Lispro (Humalog*) 0 units SUBCUT AC [facility]; Protocol Isosorbide Mononitrate (Imdur Er Tab*) 30 mg PO DAILY [facility] Losartan Potassium (Cozaar Tab*) 25 mg PO QAM [facility] Methimazole (Tapazole Tab*) 5 mg PO DAILY [facility] Pantoprazole Sodium (Protonix Tab*) 40 mg PO BID [facility] Ticagrelor (Brilinta*) 90 mg PO BID [facility] Vital Signs - 8 hr 11/24/19 11/24/19 11/24/19 07:15 08:35 11:15 Temperature 96.3 F 97 F Pulse Rate 80 76 Respiratory 12 18 16 Rate Blood Pressure 139/64 100/72 (mmHg) O2 Sat by Pulse 99 100 Oximetry Oxygen Devices in Use Now: Nasal Cannula - 2L Appearance: Middle-aged female sitting in bed in NAD Ears/Nose/Mouth/Throat: Mucous Membranes Moist Neck: NL Appearance and Movements; NL JVP, Trachea Midline Respiratory: Symmetrical Chest Expansion and Respiratory Effort, Clear to Auscultation Cardiovascular: NL Sounds; No Murmurs; No JVD, RRR Abdominal: NL Sounds; No Tenderness; No Distention Extremities: No Edema Neurological: Alert and Oriented x 3 Lines/Tubes/Other Access: Clean, Dry and Intact Peripheral IV Nutrition: Taking PO's Result Diagrams: 11/24/19 05:15 11/24/19 05:17 Assess/Plan/Problems-Billing Assessment: Ms. Chavez is a 54 yo F with PMH of CAD s/p stent and CABG, DM2, HFrEF, HTN, HLD, hyperthyroidism, COPD, TIA, PVD, GERD, anemia, mitral valve replacement; who presented to the ED with c/o CP and was found to have an acute CHF exacerbation. - Patient Problems (1) Acute on chronic HFrEF (heart failure with reduced ejection fraction) Code(s): I50.23 - ACUTE ON CHRONIC SYSTOLIC (CONGESTIVE) HEART FAILURE Comment : - Presented with CP and SOB, symptoms now improving - Secondary to medication noncompliance - EF 40-45% in Oct 2018; no need to repeat echo at this time - Appreciate Cardiology consult - Continue furosemide, carvedilol, losartan (2) CAD (coronary artery disease) Code(s): I25.10 - ATHSCL HEART DISEASE OF [place] CORONARY ARTERY W/O ANG PCTRS Comment: - Trops normal, EKG consistent with prior - Cardiac cath Oct 2018 with unchanged coronary artery disease - Stress test Aug 2019 consistent with known occlusions - Continue aspirin, Brilinta, carvedilol, atorvastatin, Imdur (3) Type II diabetes mellitus Comment: - HgbA1c 12.2% - Continue Lantus, Lispro SS; resume Lispro 10 units AC (4) COPD (chronic obstructive pulmonary disease) Code(s): J44.9 - CHRONIC OBSTRUCTIVE PULMONARY DISEASE, UNSPECIFIED Comment: - Not in exacerbation - Continue Duonebs PRN (5) Hypertension Code(s): I10 - ESSENTIAL (PRIMARY) HYPERTENSION Comment: - Normotensive - Continue carvedilol, losartan, furosemide (6) Hyperlipidemia Code(s): E78.5 - HYPERLIPIDEMIA, UNSPECIFIED Comment: - Continue atorvastatin (7) Hyperthyroidism Code(s): E05.90 - THYROTOXICOSIS, UNSP WITHOUT THYROTOXIC CRISIS OR STORM Comment: - Follows with Dr. Ramírez - Continue methimazole (8) GERD (gastroesophageal reflux disease) Status: Acute Code(s): K21.9 - GASTRO-ESOPHAGEAL REFLUX DISEASE WITHOUT ESOPHAGITIS Comment: - Continue pantoprazole (9) DVT prophylaxis Comment: - Continue Lovenox (10) Full code status Code(s): Z78.9 - OTHER SPECIFIED HEALTH STATUS Comment: Status and Disposition: Inpatient. Anticipate d/c home when medically stable, hopefully tomorrow. Attending: Trinity Puentes
[2019-11-24] MEDS: Enoxaparin(*) 40 MG/0.4 ML SYR SUBCUT SCH (16:02)
[2019-11-24] MEDS: Atorvastatin* 80 MG TAB PO SCH (17:42)
[2019-11-25 07:41] LABS: ABS Basophils 0.1 10^3/ul (0-0.2); ABS Eosinophils 0.2 10^3/ul (0-0.6); ABS Lymphocytes 1.8 10^3/ul (1.0-4.8); ABS Monocytes 0.6 10^3/ul (0-0.8); ABS Neutrophils 9.3 10^3/ul (1.5-7.7); Eosinophil % 1.4 %; Hematocrit 32 % (35-47); Hemoglobin 10.4 g/dL (12.0-16.0); Lymphocyte % 14.9 %; Mean Corpuscular HGB Conc 33 g/dL (31-36); Mean Corpuscular Hemoglobin 29 pg (27-31); Mean Corpuscular Volume 87 fL (80-97); Mean Platelet Volume 8.4 fL (7.4-10.4); Platelet Count 312 10^3/uL (150-450); Red Blood Count 3.66 10^6 /uL (3.70-4.87); Red Cell Distribution Width 16 % (10-15); White Blood Count 11.9 10^3/uL (3.5-10.8)
[2019-11-25 07:56] LABS: BUN/Creatinine Ratio 31.3 (8-20); Calcium 8.6 mg/dL (8.6-10.3); EGFR African American 44.7 (>60); EGFR Non-African American 36.9 (>60)
[2019-11-25] MEDS: SPIRIVA Respimat* (tiotropium) 2.5 mcg/inh Inhaler INH SCH (08:21)
[2019-11-25] MEDS: Furosemide IV* 10 MG/ML VIAL (40 MG) IV SCH (08:33)
[2019-11-25] MEDS: Insulin LISPRO* 1 UNITS UNIT SUBCUT SCH ×7 (08:36→22:07)
[2019-11-25] MEDS: Insulin GLARGINE(*) 1 UNITS UNIT SUBCUT SCH (08:36)
[2019-11-25] MEDS: Ticagrelor* 90 MG TAB PO SCH ×2 (08:37→22:06)
[2019-11-25] MEDS: Gabapentin CAP(*) 300 MG PO SCH (08:38)
[2019-11-25] MEDS: Aspirin 81 mg CHEW TAB* 81 MG TAB.CHEW PO SCH (08:38)
[2019-11-25] MEDS: Isosorbide Mononitrate ER TAB* 30 MG PO SCH (08:38)
[2019-11-25] MEDS: Losartan TAB* 25 MG PO SCH (08:38)
[2019-11-25] MEDS: Pantoprazole TAB * 40 MG TAB PO SCH ×2 (08:38→22:06)
[2019-11-25] MEDS ORDERED: Al Hydrox/Mg Hydrox/Simet LIQ* 30 ML UDC PO ONE (09:02)
[2019-11-25] MEDS ORDERED: Al Hydrox/Mg Hydrox/Simet LIQ* 30 ML UDC ONE (09:07)
[2019-11-25] MEDS: Carvedilol TAB* 6.25 MG PO SCH ×2 (09:10→22:06)
[2019-11-25] MEDS: Methimazole TAB* 5 MG PO SCH (09:10)
[2019-11-25 09:34] LABS: Troponin I 0.02 ng/mL (<0.03)
[2019-11-25] MEDS ORDERED: Loperamide CAP* 2 MG PO PRN (12:14)
[2019-11-25] MEDS: Enoxaparin(*) 40 MG/0.4 ML SYR SUBCUT SCH (15:17)
--- NOTE | 2019-11-25 16:13 | PN ---
Subjective Date of Service: 11/25/19 Interval History: Ms. Chavez is feeling poor today. She is having frequent diarrhea which happens to her on occasion. Imodium is typically helpful. She did not sleep well overnight. Had an episode of burning epigastric pain and nausea this morning which was relieved 20 min after Maalox. Denies current CP, SOB, N/V. No further concerns from nursing. Family History: Unchanged from Admission Social History: Unchanged from Admission Past Medical History: Unchanged from Admission Objective Active Medications: Acetaminophen (Tylenol Tab*) 650 mg PO Q4H PRN mild to moderate pain Albuterol/Ipratropium (Duoneb (Albuterol 2.5 Mg/Ipratropium 0.5 Mg)) 1 neb INH [id number] AWAKE PRN sob/wheexing Aspirin (Aspirin 81 Mg Chew Tab*) 81 mg PO DAILY [facility] Atorvastatin Calcium (Lipitor*) 80 mg PO QPM [facility] Carvedilol (Coreg Tab*) 12.5 mg PO BID [facility] Dextrose (D50w Syringe 50 Ml*) 12.5 gm IV PUSH .FOR FS < 60 - SS PRN FS < 60 Docusate Sodium (Colace Cap*) 100 mg PO BID PRN CONSTIPATION Enoxaparin Sodium (Lovenox(*)) 40 mg SUBCUT Q24H [facility] Furosemide (Lasix Iv*) 40 mg IV DAILY [facility] Gabapentin (Neurontin Cap(*)) 300 mg PO DAILY [facility] Insulin Glargine (Lantus(*)) 32 units SUBCUT QAM [facility] Insulin Human Lispro (Humalog*) 10 units SUBCUT AC [facility] Insulin Human Lispro (Humalog*) 0 units SUBCUT ACHS [facility]; Protocol Isosorbide Mononitrate (Imdur Er Tab*) 30 mg PO DAILY [facility] Loperamide HCl (Imodium Cap*) 2 mg PO .SEE DIRECTIONS PRN DIARRHEA Losartan Potassium (Cozaar Tab*) 25 mg PO QAM [facility] Methimazole (Tapazole Tab*) 5 mg PO DAILY [facility] Pantoprazole Sodium (Protonix Tab*) 40 mg PO BID [facility] Ticagrelor (Brilinta*) 90 mg PO BID [facility] Tiotropium [place] (Spiriva Respimat 2.5 Mcg) 2 puff INH DAILY [facility] Vital Signs - 8 hr 11/25/19 11/25/19 11/25/19 08:21 08:38 11:15 Temperature 97.3 F Pulse Rate 79 75 Respiratory 18 18 22 Rate Blood Pressure 100/54 (mmHg) O2 Sat by Pulse 99 98 Oximetry Oxygen Devices in Use Now: Nasal Cannula - 2L Appearance: Middle-aged female sitting in bed in NAD Ears/Nose/Mouth/Throat: Mucous Membranes Moist Neck: NL Appearance and Movements; NL JVP, Trachea Midline Respiratory: Symmetrical Chest Expansion and Respiratory Effort, Clear to Auscultation Cardiovascular: NL Sounds; No Murmurs; No JVD, RRR Abdominal: NL Sounds; No Tenderness; No Distention Extremities: No Edema Neurological: Alert and Oriented x 3 Lines/Tubes/Other Access: Clean, Dry and Intact Peripheral IV Nutrition: Taking PO's Result Diagrams: 11/25/19 07:04 11/25/19 07:04 Assess/Plan/Problems-Billing Assessment: Ms. Chavez is a 54 yo F with PMH of CAD s/p stent and CABG, DM2, HFrEF, HTN, HLD, hyperthyroidism, COPD, TIA, PVD, GERD, anemia, mitral valve replacement; who presented to the ED with c/o CP and was found to have an acute CHF exacerbation. - Patient Problems (1) Acute on chronic HFrEF (heart failure with reduced ejection fraction) Code(s): I50.23 - ACUTE ON CHRONIC SYSTOLIC (CONGESTIVE) HEART FAILURE Comment : - Presented with CP and SOB, symptoms now improving - Secondary to medication noncompliance - EF 40-45% in Oct 2018; no need to repeat echo at this time - Appreciate Cardiology consult - Continue furosemide, carvedilol, losartan (2) CAD (coronary artery disease) Code(s): I25.10 - ATHSCL HEART DISEASE OF [place] CORONARY ARTERY W/O ANG PCTRS Comment: - Trops normal, EKG consistent with prior - Cardiac cath Oct 2018 with unchanged coronary artery disease - Stress test Aug 2019 consistent with known occlusions - Continue aspirin, Brilinta, carvedilol, atorvastatin, Imdur (3) Type II diabetes mellitus Comment: - HgbA1c 12.2% - Continue Lantus, Lispro SS, Lispro 10 units AC (4) COPD (chronic obstructive pulmonary disease) Code(s): J44.9 - CHRONIC OBSTRUCTIVE PULMONARY DISEASE, UNSPECIFIED Comment: - Not in exacerbation - Continue Duonebs PRN (5) Hypertension Code(s): I10 - ESSENTIAL (PRIMARY) HYPERTENSION Comment: - Normotensive - Continue carvedilol, losartan, furosemide (6) Hyperlipidemia Code(s): E78.5 - HYPERLIPIDEMIA, UNSPECIFIED Comment: - Continue atorvastatin (7) Hyperthyroidism Code(s): E05.90 - THYROTOXICOSIS, UNSP WITHOUT THYROTOXIC CRISIS OR STORM Comment: - Follows with Dr. Ramírez - Continue methimazole (8) GERD (gastroesophageal reflux disease) Status: Acute Code(s): K21.9 - GASTRO-ESOPHAGEAL REFLUX DISEASE WITHOUT ESOPHAGITIS Comment: - Continue pantoprazole (9) DVT prophylaxis Comment: - Lovenox (10) Full code status Code(s): Z78.9 - OTHER SPECIFIED HEALTH STATUS Comment: Status and Disposition: Inpatient. Anticipate d/c home when medically stable, hopefully tomorrow. Attending: Court Marquez
[2019-11-25] MEDS: Atorvastatin* 80 MG TAB PO SCH (17:04)
[2019-11-26 06:34] LABS: ABS Eosinophils 0.2 10^3/ul (0-0.6); ABS Lymphocytes 1.3 10^3/ul (1.0-4.8); ABS Monocytes 0.6 10^3/ul (0-0.8); ABS Neutrophils 7.6 10^3/ul (1.5-7.7); Hematocrit 30 % (35-47); Hemoglobin 10.1 g/dL (12.0-16.0); Lymphocyte % 13.9 %; Mean Corpuscular HGB Conc 34 g/dL (31-36); Mean Corpuscular Hemoglobin 29 pg (27-31); Mean Corpuscular Volume 85 fL (80-97); Mean Platelet Volume 8.1 fL (7.4-10.4); Platelet Count 286 10^3/uL (150-450); Red Cell Distribution Width 16 % (10-15); White Blood Count 9.7 10^3/uL (3.5-10.8)
[2019-11-26 06:47] LABS: BUN/Creatinine Ratio 32.4 (8-20); Calcium 8.5 mg/dL (8.6-10.3); EGFR African American 45.4 (>60); EGFR Non-African American 37.5 (>60); Potassium 4.1 mmol/L (3.5-5.0)
[2019-11-26] MEDS: SPIRIVA Respimat* (tiotropium) 2.5 mcg/inh Inhaler INH SCH (07:45)
[2019-11-26] MEDS: Gabapentin CAP(*) 300 MG PO SCH (08:32)
[2019-11-26] MEDS: Isosorbide Mononitrate ER TAB* 30 MG PO SCH (08:32)
[2019-11-26] MEDS: Pantoprazole TAB * 40 MG TAB PO SCH (08:32)
[2019-11-26] MEDS: Aspirin 81 mg CHEW TAB* 81 MG TAB.CHEW PO SCH (08:33)
[2019-11-26] MEDS: Insulin GLARGINE(*) 1 UNITS UNIT SUBCUT SCH (08:33)
[2019-11-26] MEDS: Insulin LISPRO* 1 UNITS UNIT SUBCUT SCH ×4 (08:33→12:21)
[2019-11-26] MEDS: Carvedilol TAB* 6.25 MG PO SCH (08:33)
[2019-11-26] MEDS: Ticagrelor* 90 MG TAB PO SCH (08:33)
[2019-11-26] MEDS: Methimazole TAB* 5 MG PO SCH (08:34)
[2019-11-26] MEDS: Losartan TAB* 25 MG PO SCH (08:37)
[2019-11-26] MEDS ORDERED: Furosemide TAB* 40 MG PO SCH (09:00)
--- NOTE | 2019-11-26 09:23 | PN ---
Subjective Date of Service: 11/26/19 Interval History: f/u adhf and unstable angina secondary to inadvertent medication nonadherence feels good except uri related shortness of breath no 02 requirements cxr noted suspect copd component no angina wants to go home tele sinus, no arrhythmias Medications Active Medications: Acetaminophen (Tylenol Tab*) 650 mg PO Q4H PRN PRN Reason: mild to moderate pain Albuterol/Ipratropium (Duoneb (Albuterol 2.5 Mg/Ipratropium 0.5 Mg)) 1 neb INH [id number] AWAKE PRN PRN Reason: sob/wheexing Aspirin (Aspirin 81 Mg Chew Tab*) 81 mg PO DAILY [facility] Last Admin: 11/26/19 08:33 Dose: 81 mg Atorvastatin Calcium (Lipitor*) 80 mg PO QPM [facility] Last Admin: 11/25/19 17:04 Dose: 80 mg Carvedilol (Coreg Tab*) 12.5 mg PO BID [facility] Last Admin: 11/26/19 08:33 Dose: 12.5 mg Dextrose (D50w Syringe 50 Ml*) 12.5 gm IV PUSH .FOR FS < 60 - SS PRN PRN Reason: FS < 60 Docusate Sodium (Colace Cap*) 100 mg PO BID PRN PRN Reason: CONSTIPATION Enoxaparin Sodium (Lovenox(*)) 40 mg SUBCUT Q24H [facility] Last Admin: 11/25/19 15:17 Dose: 40 mg Furosemide (Lasix Tab*) 40 mg PO DAILY [facility] Last Admin: 11/26/19 08:45 Dose: 40 mg Gabapentin (Neurontin Cap(*)) 300 mg PO DAILY [facility] Last Admin: 11/26/19 08:32 Dose: 300 mg Insulin Glargine (Lantus(*)) 32 units SUBCUT QAM [facility] Last Admin: 11/26/19 08:33 Dose: 32 unit Insulin Human Lispro (Humalog*) 10 units SUBCUT AC [facility] Last Admin: 11/26/19 08:33 Dose: 10 units Insulin Human Lispro (Humalog*) 0 units SUBCUT ACHS [facility]; Protocol Last Admin: 11/26/19 08:34 Dose: 6 units Isosorbide Mononitrate (Imdur Er Tab*) 30 mg PO DAILY [facility] Last Admin: 02/02/20 08:32 Dose: 30 mg Loperamide HCl (Imodium Cap*) 2 mg PO .SEE DIRECTIONS PRN PRN Reason: DIARRHEA Last Admin: 11/25/19 14:36 Dose: 2 mg Losartan Potassium (Cozaar Tab*) 25 mg PO QAM [facility] Last Admin: 11/26/19 08:37 Dose: Not Given Methimazole (Tapazole Tab*) 5 mg PO DAILY [facility] Last Admin: 11/26/19 08:34 Dose: 5 mg Pantoprazole Sodium (Protonix Tab*) 40 mg PO BID [facility] Last Admin: 11/26/19 08:32 Dose: 40 mg Ticagrelor (Brilinta*) 90 mg PO BID [facility] Last Admin: 11/26/19 08:33 Dose: 90 mg Tiotropium [place] (Spiriva Respimat 2.5 Mcg) 2 puff INH DAILY [facility] Last Admin: 11/26/19 07:45 Dose: 2 puff Objective Vital Signs: Temp Pulse Resp BP Pulse Ox 97.4 F 80 18 103/55 91 11/26/19 07:37 11/26/19 07:46 11/26/19 08:32 11/26/19 07:37 11/26/19 07:46 Oxygen Devices in Use Now: Nasal Cannula Appearance: nad, pleasant Ears/Nose/Mouth/Throat: Clear Oropharnyx Neck: - - uncertain jvp Respiratory: Symmetrical Chest Expansion and Respiratory Effort, - - mild crackles right base Cardiovascular: RRR, - - no significant murmur, sternotomy scar intact, trace Abdominal: NL Sounds; No Tenderness; No Distention Extremities: No Clubbing, Cyanosis Skin: No Rash or Ulcers Neurological: Alert and Oriented x 3 Laboratory Results: 11/26/19 06:08 11/26/19 06:08 INR (Anticoag Therapy) 0.97 (0.82-1.09) 11/23/19 10:42 APTT 30.5 seconds (26.0-38.0) 11/23/19 10:35 Total Bilirubin 0.70 mg/dL (0.2-1.0) 11/23/19 10:41 AST 14 U/L (13-39) 11/23/19 10:41 ALT 13 U/L (7-52) 11/23/19 10:41 Alkaline Phosphatase 136 U/L (34-104) H 11/23/19 10:41 B-Natriuretic Peptide 443 pg/mL (<=100) H 11/23/19 10:41 Total Protein 7.2 g/dL (6.4-8.9) 11/23/19 10:41 Albumin 3.7 g/dL (3.2-5.2) 11/23/19 10:41 Globulin 3.5 g/dL (2-4) 11/23/19 10:41 Albumin/Globulin Ratio 1.1 (1-3) 11/23/19 10:41 11/23/19 11/23/19 11/23/19 10:41 13:26 16:03 Troponin I 0.02 0.02 0.02 11/25/19 07:40 Troponin I 0.02 Diagnostic Imaging: From prior note" Lexiscan 08/2019 stress MPI provoked self-resolved ischemic symptoms (Chest, neck and right arm discomfort). - Small sized anteroapical ischemic defect, from 10/2018 angiogram she is known to have an occluded pLAD (new since cabg) and patent vein graft that would account for this not supplying enough blood flow at peak vasodilator stress - Inferior/inferolateral wall infarct with very significant hari-infarct ischemia. Similar to stress test from 10/2018 in which a vein graft supplied an occluded proximal Lcx. The RCA is known to be a small vessel occluded in mid section from 07/2017 angiogram" Cardiac Procedures: Cardiac Catheterization - (11/22/2018) Proximal LAD and proximal left circumflex artery are occluded. Right coronary artery was noted to be small and nondominant. Saphenous vein graft to the LAD and saphenous vein graft to the left circumflex are open and patent. Cardiac Catheterization - (05/04/2011) Atypical chest pain: Patent pLcx and OM stents, small vessel disease distal Lcx and OM Moderate mid LAD disease Severe stenosis of small RCA not optimal for PCI LVEF 40-45% with inferior hypokinesis Cardiac Catheterization - (06/04/2015) Chest pain, abnormal stress test (partially reversible anterior wall defect) R groin: LM no significant disease. Diffuse LAD disease, 60-70% lesion prior to prior to mid LAD stent, 70% distal LAD disease (+ FFR distally). Diffuse D1 disease wtih 75% lesion too small for PCI Patent OM stent Severe distal Lcx/LPDA (co-dominant) small vessel disease not a PCI target RCA thin severely disease co-dominant vessel in middle up to 80-90% LV gram 55% with mild posterobasal hypokinesis R common iliac severe PAD No PCI performed Cardiac Catheterization - PCI 2004 PCI 2006 Cardiac Catheterization - (08/02/2017) Dr. Darby [facility] left femoral artery/vein indication recent DC and mitral regurgitantion. PAP 68/32 mmHg, Mean PCWP 34 mmhg with v waves 55-60 mmhg consistent with severe MR. 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 Possible 3 vessel funoff with limited views below politeal artery Peripheral Angiography and Angioplasty - (08/04/2017) Dr. Bernard [facility]. Left femoral approach. LAD FFR 0.79. Right common femoral artery angioplasty with good flow in SFA and slow flow into profunda Peripheral Angiogram - (08/16/2017) Dr. Bernard. Residual stenosis of right CVA with improved flow, focal moderate stenosis of right PT, AT no significant disease, peroneal is small diffusely diseased vessel Multi-Vessel Coronary Artery Bypass Grafting - (08/10/2017) Dr. Soto [facility]: Vein graft to LAD and vein graft to marginal, MVR with epic # [id number] bioprosthesis. Exam Date: 11/23/19 CTA CHEST IMPRESSION: 1. NO PULMONARY ARTERIAL FILLING DEFECT TO SUGGEST PULMONARY EMBOLISM. 2. HILAR AND MEDIASTINAL LYMPHADENOPATHY. THE DIFFERENTIAL INCLUDES METASTATIC LYMPHADENOPATHY. 3. SMALL BILATERAL PLEURAL EFFUSIONS. 4. ENLARGED THYROID WITH A LARGE LEFT THYROID NODULE AND EXTENSION INTO THE ANTERIOR MEDIASTINUM. EKG Data: ekg on admission NSr 100 bpm, RBBB, old IWMI similar to 10/28/2019 Assessment/Plan In summary, April Chavez is a 54 year old woman with a history as per consult note admitted with acute on chronic CHF exacerbation and unstable angina secondary to missing medications - continue coreg 12.5 mg po bid - continue imdur 30 mg - another iv 40 mg lasix x 1 now then 80 mg po daily - medication adherence emphasized - otherwise can continue other [employer] meds and be discharged from a cardiac standpoint Thank you for allowing me to participate in the cardiovascular care of this patient. Please do not hesitate to contact me with questions or concerns.
[2019-11-26] MEDS ORDERED: Furosemide IV* 10 MG/ML VIAL (40 MG) IV ONE (11:21)
[2019-11-26 11:49] VITALS: BP 106/70
[2019-11-26] MEDS: Enoxaparin(*) 40 MG/0.4 ML SYR SUBCUT SCH (15:39)
--- NOTE | 2019-11-26 21:34 | DS ---
CC: Dr. Jamaal Garcia; Dr. Tomas Grimaldo * DISCHARGE SUMMARY: DATE OF ADMISSION: 11/23/19 DATE OF DISCHARGE: 11/26/19 PRIMARY CARE PROVIDER: Dr. Jamaal Garcia. LAWN CARE PROFESSIONAL: Dr. Tomas Grimaldo. ATTENDING PHYSICIAN: Dr. Court Marquez.* (DICTATED BY KEELY CHAPMAN NP) PRIMARY DIAGNOSES: 1. Acute on chronic heart failure with reduced ejection fraction. 2. Unstable angina. 3. Acute hypoxic respiratory failure. SECONDARY DIAGNOSES: 1. Coronary artery disease. 2. Diabetes mellitus, type 2. 3. Chronic obstructive pulmonary disease. 4. Hypertension. 5. Hyperlipidemia. 6. Hyperthyroidism. 7. Gastroesophageal reflux disease. STUDIES WHILE IN THE HOSPITAL: 1. EKG, on 11/23/19, shows sinus tachycardia with a rate of 101, significant artifact makes further interpretation difficult. 2. Chest x-ray, on 11/23/19, with prominence of interstitial marking likely secondary to chronic interstitial lung disease. The possibility of superimposed interstitial pulmonary edema cannot be ruled out. 3. Chest, thorax CTA, on 11/23/19, reads as no pulmonary arterial filling defect to suggest pulmonary embolism. Hilar and mediastinal lymphadenopathy. The differential includes metastatic lymphadenopathy. Small bilateral pleural effusions. Enlarged thyroid with a large left thyroid nodule and extension into the anterior mediastinum. 4. EKG, on 11/23/19, shows normal sinus rhythm with a rate of 79, right bundle branch block, Q waves in the inferior leads. 5. EKG, on 11/24/19, shows normal sinus rhythm with a rate of 80, right bundle branch block, Q waves in inferior leads, moderate artifact. 6. EKG, on 11/25/19, shows normal sinus rhythm with a rate of 77, right bundle branch block, Q waves in the inferior leads. 7. Chest x-ray, on 11/26/19, reads as similar interstitial pulmonary edema. No mediastinal lymphadenopathy comparison CT. Postoperative changes noted in the body of the report. HISTORY OF PRESENT ILLNESS AND HOSPITAL COURSE: Ms. Chavez is a 54-year-old female with past medical history of CAD, status post CABG and stenting; uncontrolled diabetes; HFrEF; hypertension; hyperlipidemia; hyperthyroidism; COPD; PVD, who presented to the emergency room on 11/23/19, with complaints of chest pain and shortness of breath. Please see the history and physical by MADDIE Owen, for complete summary of the events leading up to this hospitalization. In short, the patient reported awaking that morning with shortness of breath which later began to cause chest pain, which was described as a burning in the left anterior and posterior chest radiating to bilateral upper extremities, worse with deep breathing. In the emergency room, she had imaging as noted above. She was noted to have mild leukocytosis, which was reactive and not indicative of any infection. She was noted to have some acute heart failure and so she was admitted by the hospitalist service. Dr. Grimaldo from Cardiology saw the patient in consultation. He does know the patient on outpatient basis. At that point, he recommended restarting home medications, starting an antianginal and continuing IV diuresis. The patient was placed on high dose of IV furosemide for diuresis. Carvedilol dosing was increased by Cardiology. The patient initially was requiring 4 L of oxygen to maintain saturations in the 90s, but at this point, has been weaned off oxygen. The patient had some gradual improvement of symptoms. She did have an episode of chest pain yesterday, which was epigastric and burning in nature. Troponin at that time was noted to be 0 and EKG was unchanged from prior. She took a dose of Maalox, which relieved her pain and so this was suspected to be gastrointestinal in nature. Today, the patient reports feeling well. She is still slightly short of breath while lying flat and with ambulation but would like to go home. I did talk with Dr. Grimaldo again this morning and he recommended giving the patient additional dose of IV Lasix this morning and then increasing her home dose of Lasix. The patient was agreeable with this plan. On exam, Ms. Chavez was alert and oriented x4 without focal neurological deficits. Heart rate is regular rate and rhythm without murmurs, rubs, or gallops. Lungs are clear to auscultation without rhonchi, wheezes, or rubs. There is no peripheral edema. Abdomen is soft and nontender. Physical exam was otherwise benign. Ms. Chavez is stable for discharge. Most recent vital signs are as follows: Temp 97.2, heart rate 73, respiratory rate 18, oxygen saturation 96% on room air , blood pressure 106/70. DISCHARGE MEDICATIONS: New: Isosorbide mononitrate ER 30 mg p.o. daily. Changed: 1. Carvedilol 12.5 mg p.o. b.i.d. (previously 6.25 mg b.i.d.) 2. Furosemide 80 mg p.o. daily from previously 40 mg daily. Continued: 1. Albuterol 1 to 2 puffs q.6 hours p.r.n. shortness of breath. 2. Aspirin 81 mg p.o. daily. 3. Atorvastatin 80 mg p.o. at bedtime. 4. Gabapentin 300 mg p.o. daily. 5. Detemir 80 units subcu daily. 6. Lispro 10 units subcu a.c. 7. Losartan 25 mg p.o. daily. 8. Methimazole 5 mg p.o. daily. 9. Pantoprazole 40 mg p.o. b.i.d. 10. Sucralfate 1 g p.o. a.c. h.s. 11. Brilinta 90 mg p.o. b.i.d. 12. Incruse Ellipta 1 inhalation daily. DISCHARGE PLAN: Ms. Chavez will be discharged home. Activity will be as tolerated. Diet will be heart healthy. Medications are noted above. The patient has been started on Imdur per Cardiology recommendations. Additionally , carvedilol and furosemide dosing have been increased per Cardiology recommendation. I have advised the patient at this point that she should take 80 mg of furosemide for the next [address] Grimaldo this coming week. At that point, he can advice her whether she continue with 80 mg or cut back into 40 mg. She can continue her other usual medications as noted above. She should follow up with her primary care provider in the next 4 to 7 days. She should return to the emergency room or nearest hospital for any worsening of symptoms, shortness of breath, lightheadedness, chest discomfort, high fevers , chills, night sweats, loss of consciousness, or any other worrisome signs or symptoms. DISCHARGE CONDITION: Stable. DISCHARGE DISPOSITION: Home. This is a summarized report of a complex medical history and hospital stay. For further details, please see the entire medical record. TIME SPENT: Approximately 45 minutes was spent on this discharge. KEELY CHAPMAN, MECHANICAL INTERN [id number]/[facility] #: [id number] [place]
== END 2019-11-26 15:30 | disposition home or self-care (01) | DRG 291 ==
LOC: ED 10:14 → MEDTELE 13:42 → OBSVTOIN 11-24 11:39
PROVIDERS: ADMIT Internal Medicine; ATTEND Hospitalist
DX: I11.0 Hypertensive heart disease with heart failure (principal); J96.01 Acute respiratory failure with hypoxia; I50.23 Acute on chronic systolic (congestive) heart failure; I25.110 Atherosclerotic heart disease of native coronary artery with unstable angina pectoris; E78.00 Pure hypercholesterolemia, unspecified; E11.51 Type 2 diabetes mellitus with diabetic peripheral angiopathy without gangrene; J44.9 Chronic obstructive pulmonary disease, unspecified; K21.9 Gastro-esophageal reflux disease without esophagitis; M15.9 Polyosteoarthritis, unspecified; F41.9 Anxiety disorder, unspecified; F32.9 Major depressive disorder, single episode, unspecified; E78.5 Hyperlipidemia, unspecified; I45.10 Unspecified right bundle-branch block; E66.9 Obesity, unspecified; I25.5 Ischemic cardiomyopathy; D72.829 Elevated white blood cell count, unspecified; R59.0 Localized enlarged lymph nodes; E05.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 multinodular goiter without thyrotoxic crisis or storm; Z87.891 Personal history of nicotine dependence; Z88.1 Allergy status to other antibiotic agents; Z88.8 Allergy status to other drugs, medicaments and biological substances; I25.2 Old myocardial infarction; Z68.36 Body mass index [BMI] 36.0-36.9, adult; Z95.2 Presence of prosthetic heart valve; Z86.73 Personal history of transient ischemic attack (TIA), and cerebral infarction without residual deficits; Z95.1 Presence of aortocoronary bypass graft; Z95.5 Presence of coronary angioplasty implant and graft; Z91.14 Patient's other noncompliance with medication regimen; Z79.82 Long term (current) use of aspirin; Z79.02 Long term (current) use of antithrombotics/antiplatelets; Z79.4 Long term (current) use of insulin; Z79.899 Other long term (current) drug therapy
CPT/HCPCS: 36415; 71045; 71046; 71275; 80048; 80053; 82947; 83735; 83880; 84484; 85025; 85610; 85730; 93005; 94640; 96374; 99285; A9270-GY; G0378; J1650; J1940; J2930; J3535; Q9967

== ENCOUNTER 2019-12-10 08:27 | Observation (INO) | payer MEDICARE ==
--- OUTSIDE RECORDS SUMMARY | 2019-12-10 08:34 | XMS REPORT | Continuity of Care Document ---
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 Medicine Problems Active Problems Provider Date Old myocardial infarction Tomas Grimaldo DO [facility] Onset: 02/18/2017 Atherosclerosis of [place] arteries of Kingsley Shaw MD, [facility], Onset: right leg with ulceration of heel and FSCAI midfoot Atherosclerosis of [place] arteries of Kingsley Shaw MD, [facility], Onset: left leg with ulceration of other part FSCAI of foot Chronic obstructive lung disease Winifred Ahumada MD Onset: 05/19/2017 Encounter for screening for malignant Winifred Ahumada MD Onset: 05/19/2017 neoplasm of respiratory organs Nicotine dependence, cigarettes, with Winifred Ahumada MD Onset: 05/19/2017 other nicotine-induced disorders Chronic diastolic heart failure Kingsley Shaw MD, [facility], Onset: 07/01/2017 FSCAI Atherosclerosis of [place] arteries of Kingsley Shaw MD, [facility], Onset: 04/2017 right leg with ulceration of [...] Femi Degroot M.D. Onset: 06/28/2019 atherosclerosis of [place] artery of limb Social History Type Date Description Comments Sex Unknown Tobacco Use Start: Unknown Former Cigarette Smoker quit in Aug 2017 End: Unknown Smoking Status Reviewed: 12/05/19 Former Cigarette Smoker quit in Aug 2017 [...] Medications SIG Qnty Indications Ordering Date Provider Carvedilol 1 by mouth twice 180tabs Tomas Grimaldo, 12/05/2019 12.5mg Tablets a day DO FACC Furosemide 1 by mouth every 90tabs Tomas Grimaldo, 12/05/2019 80mg Tablets day DO FACC Novolog Flexpen 10 units as base Hector Ramírez MD 11/16/2019 with sliding 100Unit/ML Solution scale for BS Pen-Inject over 200. Losartan Potassium 1 by mouth every 90tabs I50.22 Tomas Grimaldo, 2018 25mg day DO FACC Tablets Nitroglycerin 1 sl q5mins x3 25tabs R07.9 Tomas Grimaldo, 07/21/2019 0.4mg as needed for DO FACC Tablets Sub chest pain Jardiance 10mg by mouth 30tabs Hector Ramírez MD 12/07/2018 10mg Tablets daily Atorvastatin Calcium 1 by mouth every 90tabs E78.5 Tomas Grimaldo, 2016 80mg day DO FACC Tablets Isosorbide Mononitrate 1 by mouth every 90tabs Tomas Grimaldo, ER day DO FACC 30mg Tablets ER 24HR Brilinta 1 tab by mouth 180tabs Tomas Grimaldo, 90mg Tablets twice a day DO FACC Methimazole 5mg by mouth Unknown 5mg Tablets once daily Albuterol Sulfate HFA every 4 hours as Unknown needed 108(90Base) mcg/Act Aerosol Incruse Ellipta inhale one puff Unknown by mouth every 62.5mcg/Inh Aerosol day Levemir Flextouch 45 units am and Unknown 45 units pm 100Unit/ML Solution Pen-Inject Pantoprazole Sodium 2 by mouth every Unknown 40mg day Tablets DR Acetaminophen ER 1 by mouth twice Unknown 650mg a day prn Tablets ER Tums 2 as needed for Unknown 500mg Chewtabs acid stomach Stool Softener take 1 tab by 120caps Tomas Grimaldo, 100mg mouth 2 times a DO FACC Capsules day as needed Aspir-81 1 by mouth every Unknown 81mg Tablets DR day Gabapentin 1 by mouth once Unknown 300mg Capsules a day, as needed History Medications Furosemide 2 by mouth every Tomas Grimaldo, DO 06/27/2019 - 40mg Tablets day [facility] 12/05/2019 Medications Administered in Office Medication SIG Qnty Indications Ordering Provider Date Inj, Regadenoson, 0.1 MG Tomas Grimaldo, DO [facility] 08/30/2019 Injection Technetium TC 99M Tomas Grimaldo, DO [facility] 08/30/2019 Tetrofosmin, Per Unit Dose Up To 40 Millicuries Injection Technetium TC 99M Tomas Grimaldo, DO [facility] 08/30/2019 Tetrofosmin, Per Unit Dose Up To 40 Millicuries Injection Inj, Regadenoson, 0.1 MG Tomas Grimaldo, DO [facility] 04/25/2018 Injection Technetium TC 99M Tomas Grimaldo, DO [facility] 04/25/2018 Tetrofosmin, Per Unit Dose Up To 40 Millicuries Injection Inj, Regadenoson, 0.1 MG Tomas Grimaldo, DO [facility] 03/31/2017 Injection Technetium TC 99M Tomas Grimaldo, DO [facility] 03/31/2017 Tetrofosmin, Per Unit Dose Up To 40 Millicuries Injection Immunizations Description No Information Available Vital Signs Date Vital Result Comment 12/05/2019 8:01am Height 63 inches 5'3" Weight 203.00 lb with boots Heart Rate 83 /min BP Systolic Sitting 122 mmHg lue reg cuff BP Diastolic Sitting 74 mmHg lue reg cuff BP Systolic Standing 120 mmHg lue reg cuff BP Diastolic Standing 74 mmHg lue reg cuff Respiratory Rate 14 /min BMI (Body Mass Index) 36.0 kg/m2 Ejection Fraction 40-45% 11/21/2019 8:13am Height 63 inches 5'3" Weight 199.00 lb w/ shoes Heart Rate 100 /min L. radial, regular BP Systolic Sitting 138 mmHg Ra, reg cuff BP Diastolic Sitting 70 mmHg Ra, reg cuff BP Systolic Standing 140 mmHg Ra, reg cuff BP Diastolic Standing 74 mmHg Ra, reg cuff BMI (Body Mass Index) 35.2 kg/m2 Results Description No Information Available Procedures Date Code Description Status 12/05/2019 84547 EKG Tracing & Interpretation Completed 11/21/2019 77909 EKG Tracing & Interpretation Completed 10/29/2019 15979 ECHO Transthorasic Realtime 2D W Doppler & Color Flow Completed Hosp 10/28/2019 11630 EKG, Interpretation Only Completed 08/30/2019 55932 Stress Test Completed 08/30/2019 67049 Myocardial Perfusion Imaging Tomographic (Spect) Completed Multiple Studies 08/29/2019 48723 ECHO Transthoracic, Real-Time 2D With Doppler And Color Completed Flow 08/29/2019 20633 ECHO Transthoracic, Real-Time 2D With Doppler And Color Completed Flow 07/21/2019 22141 EKG Tracing & Interpretation Completed 10/13/2013 24988863 Mammogram Completed Medical Devices Description No Information Available Encounters Type Date Location Provider Dx Diagnosis Office Visit 12/05/2019 [facility] Tomas Grimaldo, 8:00a Of [facility] DO FACC Office Visit 11/21/2019 [facility] Tomas Grimaldo, I25.119 [facility] 8:00a Of [facility] DO FACC disease of [place] cor art w unsp ang pctrs E11.65 Type 2 diabetes mellitus with hyperglycemia 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 I50.9 Heart failure, unspecified Z95.1 Presence of aortocoronary bypass graft I10 Essential (primary) hypertension E78.5 Hyperlipidemia, unspecified Office Visit 11/02/2019 [facility], E11.65 Type 2 diabetes 1:40p Endocrinology of MD mellitus with [facility] hyperglycemia 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 I50.40 Unsp combined Of Sonja Grimaldo, DO systolic and FACC diastolic (congestive) [...] pulmonary disease, unspecified Office Visit 07/21/2019 10:00a [facility] Tomas S. I95.9 Hypotension, Of Sonja Grimaldo, DO unspecified [...] 11:15a [facility] Femi Luong I70.223 [place] Of Sonja Degroot M.D. arteries of extrm w rest pain, bilateral legs I70.213 Athscl [place] arteries of extrm w intrmt sandi, bi legs Assessments Date Code Description Provider 11/26/2019 I50.9 Heart failure, unspecified Tomas S. Grimaldo, DO FACC 11/26/2019 I20.0 Unstable angina Tomas Grimaldo, DO FACC 11/24/2019 I50.9 Heart failure, unspecified Tomas Grimaldo, DO FACC 11/24/2019 I20.0 Unstable angina Tomas Grimaldo, DO FACC 11/23/2019 I50.9 Heart failure, unspecified Tomas Grimaldo, DO FACC 11/23/2019 I20.0 Unstable angina Tomas Grimaldo, DO FACC 11/21/2019 I25.119 Atherosclerotic heart disease of Tomas Grimaldo, DO [facility] [place] coronary artery with unspecified angina pectoris 11/21/2019 E11.65 Type 2 diabetes mellitus with Tomas Grimaldo, DO [facility] hyperglycemia 11/21/2019 E05.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 Tomas Grimaldo, DO [facility] multinodular goiter without thyrotoxic crisis or storm 11/21/2019 I50.9 Heart failure, unspecified Tomas Grimaldo, DO FAC 11/21/2019 Z95.1 Presence of aortocoronary bypass Tomas Grimaldo, DO [facility] graft 11/21/2019 I10 Essential (primary) hypertension Tomas Grimaldo, DO FAC 11/21/2019 E78.5 Hyperlipidemia, unspecified Tomas Grimaldo, DO FACC 11/02/2019 E11.65 Type 2 diabetes mellitus with Hector Ramírez MD hyperglycemia 11/02/2019 E05.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 Hector Ramírez MD multinodular goiter without thyrotoxic crisis or storm 11/02/2019 Z79.4 watermaster (current) use of insulin Hector Ramírez MD 10/30/2019 R07.9 Chest pain, unspecified Court Jimmy, D.O. 10/30/2019 E05.90 Thyrotoxicosis, unspecified without Court Jimmy, D.O. thyrotoxic crisis or storm 10/30/2019 I50.9 Heart failure, unspecified Court Jimmy, D.O. 10/30/2019 J44.[address] Jimmy, D.O. disease, unspecified 10/30/2019 E11.9 [address] Jimmy, D.O. complications 10/30/2019 R60.0 Localized edema Karolyn HaganO. 10/30/2019 Z95.1 Presence of aortocoronary bypass Court Marquez D.O. graft 10/29/2019 R07.9 Chest pain, unspecified Nehemiah Hirsch M.D., [facility], FASPR 10/29/2019 R07.9 Chest pain, unspecified Katerina Bales [...] R07.9 Chest pain, unspecified Nehemiah Hirsch M.D., [facility], [facility] 10/28/2019 R79.89 Other specified abnormal findings of Nehemiah Hirsch M.D., [facility], blood chemistry FASPR 10/28/2019 I25.10 Atherosclerotic heart disease of Nehemiah Hirsch M.D., [facility], [place] coronary artery without angina FASPR pectoris 10/28/2019 Z95.1 Presence of aortocoronary bypass Nehemiah Hirsch M.D., [facility], graft FASPR 10/28/2019 R07.9 Chest pain, unspecified Trinity Puentes M.D. 10/28/2019 R94.31 Abnormal electrocardiogram [ECG] Nehemiah Hirsch M.D., [facility], [EKG] FASPR 10/28/2019 I21.4 Non-St elevation (Nstemi) myocardial Trinity Puentes M.D. infarction 10/28/2019 E03.9 Hypothyroidism, unspecified Trinity Puentes M.D. 10/28/2019 I50.9 Heart failure, unspecified Trinity Puentes M.D. 10/28/2019 E11.9 Type 2 diabetes mellitus without Trinity Puentes M.D. complications 09/05/2019 I50.40 Unspecified combined systolic Tomasnicole Grimaldo, DO FACC (congestive) and diastolic (congestive) heart failure 09/05/2019 E11.69 Type 2 diabetes mellitus with other Tomas S. Grimaldo, DO FACC specified complication 09/05/2019 I73.9 Peripheral vascular disease, Tomas Grimaldo, DO FACC unspecified 09/05/2019 I10 Essential (primary) hypertension Tomasnicole Grimaldo, DO FACC 09/05/2019 E78.5 Hyperlipidemia, unspecified Tomas S. Grimaldo, DO FACC 09/05/2019 F17.201 Nicotine dependence, unspecified, in Tomas Grimaldo, DO FACC remission 09/05/2019 I45.19 Other right bundle-branch block Tomas Grimaldo, DO FACC 09/05/2019 I63.9 Cerebral infarction, unspecified Tomas SWilfredo Grimaldo, DO FACC 09/05/2019 N18.9 Chronic kidney disease, unspecified Tomas S. Grimaldo, DO FACC 09/05/2019 Z95.2 Presence of prosthetic heart valve Tomasnicole Grimaldo, DO FACC 09/05/2019 J44.9 Chronic obstructive pulmonary Tomasnicole Sernano, DO FACC disease, unspecified 08/30/2019 R07.9 Chest pain, unspecified Tomas S. Grimaldo, DO FACC 08/29/2019 I95.9 Hypotension, unspecified Tomas S. Grimaldo, DO FACC 08/29/2019 I95.9 Hypotension, unspecified Ica ECHO Schedule 07/21/2019 I95.9 Hypotension, unspecified Tomas S. Grimaldo, DO FACC 07/21/2019 R07.9 Chest pain, unspecified Tomas S. Grimaldo, DO FACC 07/21/2019 I50.40 Unspecified combined systolic Tomas S. Grimaldo, DO FACC (congestive) and diastolic (congestive) heart failure 07/21/2019 I73.9 Peripheral vascular disease, Tomas Sernano, DO FACC unspecified 07/21/2019 E11.69 Type 2 diabetes mellitus with other Tomas S. Grimaldo, DO FACC specified complication 07/21/2019 I10 Essential (primary) hypertension Tomas SWilfredo Sernano, DO FACC 07/21/2019 E78.5 Hyperlipidemia, unspecified Tomas Grimaldo, DO FACC 07/21/2019 F17.201 Nicotine dependence, unspecified, in Tomas Grimaldo, DO FACC remission 07/21/2019 I45.19 Other right bundle-branch block Tomas Grimaldo, DO FACC 07/21/2019 N18.9 Chronic kidney disease, unspecified Tomasnicole Grimaldo, DO FACC 07/21/2019 I63.9 Cerebral infarction, unspecified Tomasnicole Grimaldo, DO FACC 07/21/2019 J44.9 Chronic obstructive pulmonary Tomas Grimaldo, DO FACC disease, unspecified 06/28/2019 I70.223 Atherosclerosis of [place] arteries of Femi Degroot M.D. extremities with rest pain, bilateral legs 06/28/2019 I70.213 Atherosclerosis of [place] arteries of Femi Degroot M.D. extremities with intermittent claudication, bilateral legs Plan of Treatment Future Appointment(s):12/13/2019 10:15 am - Tomas Grimaldo DO FACC at [facility]02/13/2020 11:00 am - Hector Ramírez MD at [facility]03/05/2020 10:20 am - Tomas Grimaldo DO FACC at [facility] Functional Status Description No Information Available Mental Status Description No Information Available Referrals Refer to Dr Reason for Referral Status Appt Date Uri Wallace, DPBharath diabetic neuropathy Sent [address] [place] [address] [phone]
--- OUTSIDE RECORDS SUMMARY | 2019-12-10 08:34 | XMS REPORT | Continuity of Care Document ---
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 [phone] Medicine Problems Active Problems Provider Date Old myocardial infarction Tomas Grimaldo DO [facility] Onset: 02/18/2017 Atherosclerosis of [place] arteries of Kingsley Shaw MD, [facility], Onset: right leg with ulceration of heel and FSCAI midfoot Atherosclerosis of [place] arteries of Kingsley Shaw MD, [facility], Onset: left leg with ulceration of other part FSCAI of foot Chronic obstructive lung disease Winifred Ahumada MD Onset: 05/19/2017 Encounter for screening for malignant Winifred Ahumada MD Onset: 05/19/2017 neoplasm of respiratory organs Nicotine dependence, cigarettes, with Winifred Ahumada MD Onset: 05/19/2017 other nicotine-induced disorders Chronic diastolic heart failure Kingsley Shaw MD, [facility], Onset: 07/01/2017 FSCAI Atherosclerosis of [place] arteries of Kingsley Shaw MD, [facility], Onset: 04/2017 right leg with ulceration [...] Femi Degroot M.D. Onset: 06/28/2019 atherosclerosis of [place] artery of limb Social History Type Date [...] Provider Novolog Flexpen 10 units as base Hetcor Ramírez MD 11/16/2019 with sliding 100Unit/ML Solution [...] Inj, Regadenoson, 0.1 MG Tomas Grimaldo, DO [facility] 08/30/2019 Injection Technetium TC 99M Tomas Grimaldo, DO [facility] 08/30/2019 Tetrofosmin, Per Unit Dose Up To 40 Millicuries Injection Technetium TC 99M Tomas Grimaldo, DO [facility] 08/30/2019 Tetrofosmin, Per Unit Dose Up To 40 Millicuries Injection Inj, Regadenoson, 0.1 MG Tomas Grimaldo, DO [facility] 04/25/2018 Injection Technetium TC 99M Tomas Grimaldo, DO [facility] 04/25/2018 Tetrofosmin, Per Unit Dose Up To 40 Millicuries Injection Inj, Regadenoson, 0.1 MG Tomas Grimaldo, DO [facility] 03/31/2017 Injection Technetium TC 99M Tomas Grimaldo, DO [facility] 03/31/2017 Tetrofosmin, Per Unit Dose Up [...] Available Procedures Date Code Description Status 11/21/2019 41441 EKG Tracing & Interpretation Completed 10/29/2019 68174 ECHO Transthorasic Realtime 2D W Doppler & Color Flow Completed Hosp 10/28/2019 63037 EKG, Interpretation Only Completed 08/30/2019 99938 Stress Test Completed 08/30/2019 00751 Myocardial Perfusion Imaging Tomographic (Spect) Completed Multiple Studies 08/29/2019 84682 ECHO Transthoracic, Real-Time 2D With Doppler And Color Completed Flow 08/29/2019 78793 ECHO Transthoracic, Real-Time 2D With Doppler And Color Completed Flow 07/21/2019 59288 EKG Tracing & Interpretation Completed 10/13/2013 [id number] Mammogram Completed Medical Devices Description No Information Available Encounters Type Date Location Provider Dx Diagnosis Office Visit 11/21/2019 [facility] Tomas Grimaldo, I25.119 [facility] heart 8:00a Of [facility] DO FACC disease of [place] cor art w unsp ang pctrs E11.65 Type 2 diabetes mellitus with hyperglycemia 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 I50.40 Unsp combined Of [...] pulmonary disease, unspecified Office Visit 07/21/2019 10:00a [facility] Tomas S. I95.9 Hypotension, Of Sonja [...] disease, unspecified Office Visit 06/28/2019 11:15a [facility] I70.223 [place] Of Sonja Degroot M.D. arteries of extrm w rest pain, bilateral legs I70.213 Athscl [place] arteries of extrm w intrmt sandi, bi legs Assessments Date Code Description Provider 11/21/2019 I25.119 Atherosclerotic heart disease of Tomas Grimaldo, DO FACC [place] coronary artery with unspecified angina pectoris 11/21/2019 E11.65 Type 2 diabetes mellitus with Tomas Grimaldo, DO FACC hyperglycemia 11/21/2019 E05.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 Tomas Grimaldo, DO FACC multinodular goiter without thyrotoxic crisis or storm 11/21/2019 I50.9 Heart failure, unspecified Tomas Grimaldo, DO FACC 11/21/2019 Z95.1 Presence of aortocoronary bypass Tomas Grimaldo DO FACC graft 11/21/2019 I10 Essential (primary) hypertension Tomas Grimaldo, DO [facility] 11/21/2019 E78.5 Hyperlipidemia, unspecified Tomas Grimaldo, DO FAC 11/02/2019 E11.65 Type 2 diabetes mellitus with Hector Ramírez MD hyperglycemia 11/02/2019 E05.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 Hector Ramírez MD multinodular goiter without thyrotoxic crisis or storm 11/02/2019 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 Hector Ramírez MD [...] R07.9 Chest pain, unspecified Nehemiah Hirsch M.D., [facility], [facility] 10/29/2019 R07.9 Chest pain, unspecified Katerina [...] R07.9 Chest pain, unspecified Nehemiah Hirsch M.D., [facility], [facility] 10/28/2019 R79.89 Other specified abnormal findings of Nehemiah Hirsch M.D., [facility], blood chemistry [facility]MO 10/28/2019 I25.10 Atherosclerotic heart disease of Nehemiah Hirsch M.D., [facility], [place] coronary artery without angina FASMO pectoris 10/28/2019 Z95.1 Presence of aortocoronary bypass Nehemiah Hirsch M.D., [facility], graft [facility] 10/28/2019 R07.9 Chest pain, unspecified Trinity Puentes M.D. 10/28/2019 R94.31 Abnormal electrocardiogram [ECG] Nehemiah Hirsch M.D., [facility], [EKG] [facility] 10/28/2019 I21.4 Non-St elevation (Nstemi) myocardial Trinity Puentes M.D. infarction 10/28/2019 E03.9 Hypothyroidism, unspecified Trinity Puentes M.D. 10/28/2019 I50.9 Heart failure, unspecified Trinity Puentes M.D. 10/28/2019 E11.9 Type 2 diabetes mellitus without Trinity Puentes M.D. complications 09/05/2019 I50.40 Unspecified combined systolic Tomas Grimaldo DO [facility] (congestive) and diastolic (congestive) heart failure 09/05/2019 E11.69 Type 2 diabetes mellitus with other Tomas Grimaldo DO [facility] specified complication 09/05/2019 I73.9 Peripheral vascular disease, Tomas Grimaldo, DO [facility] unspecified 09/05/2019 I10 Essential (primary) hypertension Tomas Grimaldo DO [facility] 09/05/2019 E78.5 Hyperlipidemia, unspecified Tomas Grimaldo, DO [facility] 09/05/2019 F17.201 Nicotine dependence, unspecified, in Tomas Grimaldo DO [facility] remission 09/05/2019 I45.19 Other right bundle-branch block Tomas Grimaldo DO [facility] 09/05/2019 I63.9 Cerebral infarction, unspecified Tomas Grimaldo DO FAC 09/05/2019 N18.9 Chronic kidney disease, unspecified Tomas Grimaldo DO FAC 09/05/2019 Z95.2 Presence of prosthetic heart valve Tomas Grimaldo DO [facility] 09/05/2019 J44.9 Chronic obstructive pulmonary Tomas Grimaldo DO FACC disease, unspecified 08/30/2019 R07.9 Chest pain, unspecified Tomasnicole Grimaldo, DO FACC 08/29/2019 I95.9 Hypotension, unspecified Tomas S. Grimaldo, DO FACC 08/29/2019 I95.9 Hypotension, unspecified Ica ECHO Schedule 07/21/2019 I95.9 Hypotension, unspecified Tomas Grimaldo, DO FACC 07/21/2019 R07.9 Chest pain, unspecified Tomas S. Grimaldo, DO FACC 07/21/2019 I50.40 Unspecified combined systolic Tomasnicole Grimaldo, DO FACC (congestive) and diastolic (congestive) heart failure 07/21/2019 I73.9 Peripheral vascular disease, Tomas Grimaldo, DO FACC unspecified 07/21/2019 E11.69 Type 2 diabetes mellitus with other Tomasnicole Grimaldo, DO FACC specified complication 07/21/2019 I10 Essential (primary) hypertension Tomasnicole Srenano, DO FACC 07/21/2019 E78.5 Hyperlipidemia, unspecified Tomas SWilfredo Grimaldo, DO FACC 07/21/2019 F17.201 Nicotine dependence, unspecified, in Tomas Grimaldo, DO FACC remission 07/21/2019 I45.19 Other right bundle-branch block Tomasnicole Grimaldo, DO FACC 07/21/2019 N18.9 Chronic kidney disease, unspecified Tomas SWilfredo Grimaldo, DO FACC 07/21/2019 I63.9 Cerebral infarction, unspecified Tomasnicole Grimaldo, DO FACC 07/21/2019 J44.9 Chronic obstructive pulmonary Tomas SWilfredo Grimaldo, DO FACC disease, unspecified 06/28/2019 I70.223 Atherosclerosis of [place] arteries of Femi Degroot M.D. extremities with rest pain, bilateral legs 06/28/2019 I70.213 Atherosclerosis of [place] arteries of Femi Degroot M.D. extremities with intermittent claudication, bilateral legs Plan of Treatment Future Appointment(s):02/13/2020 11:00 am - Hector Ramírez MD at [facility]03/05/2020 10:20 am - Toams Grimaldo DO FACC at [facility]11/21/2019 - Tomas Grimaldo DO FACCI25.119 Atherosclerotic heart disease of [place] coronary artery with unspecified angina pectorisNew Orders:Stress Test, Pharmacologic Nuclear (Lexiscan), Ordered: 11/21Follow up:f/u after stress testE11.65 Type 2 diabetes mellitus with xfujryeajwnbpZ30.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 multinodular goiter without thyrotoxic crisis or kqtgjI82.9 Heart failure, wezszfkvrruA41.1 Presence of aortocoronary bypass [id number] Essential (primary) ifisjdpkmhyaD41.5 Hyperlipidemia, unspecified Functional Status Description No Information Available Mental Status Description No Information Available Referrals Refer to Dr Reason for Referral Status Appt Date Uri Wallace DPM diabetic neuropathy Sent [address] [place] [address] [phone]
--- OUTSIDE RECORDS SUMMARY | 2019-12-10 08:34 | XMS REPORT | Continuity of Care Document ---
:1965 External Reference #:[id number] Author Name Jamaal Garcia D.O. Address [address] [place] [address] Care Team Providers Name Role Phone HCP/LW on file Care Team Information Instructor Of Spanish Unavailable [facility] - Spec/Tech, Care Team Information Instructor Of Spanish Cardiovascular Winifred Ahumada MD - Pulmonary Care Team Information Instructor Of Spanish Disease Femi Degroot MD - Vascular & Care Team Information Instructor Of Spanish Interventional Radiology [facility] - Wound Care Care Team Information Instructor Of Spanish [phone] Problems Active Problems Provider Date Type II [...] 1ppd-2ppd x 42 years. Smoking Status Reviewed: 12/07/19 Former Cigarette Smoker quit Jul 2017 1ppd-2ppd [...] Medications SIG Qnty Indications Ordering Date Provider Furosemide 2 (80 mg) tablets by Unknown 11/26/2019 40mg mouth every day Tablets Isosorbide 1 tablet by mouth Unknown 11/26/2019 Mononitrate ER daily 30mg Tablets ER 24HR Carvedilol take one tablet by Unknown 11/26/2019 12.5mg mouth twice a day Tablets Sucralfate Take 1 Tablet By Unknown 11/15/2019 1gm Mouth Before Meals Tablets And AT Bedtime Brilinta Take One Tablet By Unknown 10/31/2019 90mg Mouth Twice A Day Tablets Losartan Potassium 1 tablet daily for Unknown 10/30/2019 high blood pressure 25mg Tablets Levemir 80 units subcutaneous E11.69 Unknown 10/30/2019 100Unit/ML daily Solution Methimazole 1 tablet by mouth Unknown 10/30/2019 5mg daily Tablets Novolog Flexpen 20 units before 45ml E11.69 [facility], 10/12/2019 dinner Jamaal, D.O. 100Unit/ML Solution Pen-Inject Albuterol Sulfate 1-2 puffs inhaled Unknown 05/14/2019 HFA every 6 hours as 108(90Base) needed for shortness mcg/Act Aerosol of breath Incruse Ellipta Inhale One puff By 30units J44.9 [facility], 05/14/2019 Mouth Every Day Jamaal, D.O. 62.5mcg/Inh Aerosol Mineral Oil place 4-drops in ears 30units L20.9 [facility], 04/13/2019 Oil every week for Jamaal, D.O. excessive cerumen and dry ear canals as needed Onetouch Delica use with diabetic 100units [facility], 01/30/2019 Lancets Fine 30G supplies five times a Jamaal, D.O. day as directed 30G Misc Onetouch Verio test 1-4 daily as 200units E11.65 [facility], 01/27/2019 directed Jamaal D.O. Strips Onetouch Verio use 1-4 times daily 1units [facility], 01/27/2019 as directed Clay Hinton w/Device Kit BD Uf Mini Pen Use Up To 6 Times 400units [facility], 01/27/2019 Needle [id number] Daily as Directed For Clay Hinton Insulin Administration Aspirin Children's 1 by mouth daily Unknown 11/23/2018 81mg Pantoprazole Sodium Take One Tablet By 60tabs [facility], 05/26/2018 Mouth Twice A Day Clay Hinton 40mg Tablets DR Tylenol give 2 tablets by Unknown 05/26/2018 325mg mouth [id number] as Tablets needed for pain / otc Atorvastatin 1 by mouth every Unknown 08/20/2017 Calcium evening 80mg Tablets Docusate Sodium 1 cap by mouth twice Unknown 08/20/2017 a day as needed for 100mg Capsules constipation Lancets use as directed for 200units E11.65 [facility], 05/20/2017 [place] diabetic testing Clay Hinton Safety Misc BD Pen or appropriate 400units [facility], 05/20/2017 Needle/Mini/Ultrafi needles for Clay Hinton ne/31G X 3/16" lantus/Novolog pen. 31G use up to 6/day, as X 5 mm Misc directed, for insulin administration Gabapentin 1 by mouth daily 90caps [facility], 300mg Clay Hinton Capsules History Medications Neomycin/Polymyxin/Dexamethasone 1 drop 4 times a 5ml [facility], 2018 - 3.5-80343-8.1 day left eye for Clay Hinton 10/20/2019 Suspension 5 days Tobradex 1 left eye three 5ml H10 [facility], 10/20/2019 - 0.3-0.1% Suspension times a day for .89 Clay Hinton 10/25/2019 5 days or 1 day after symptoms resolve. Novolog Mix 70/30 Prefilled Flexpen 30u in in the 45ml E11 [facility], 2018 - (70-30)100Unit/ML morning .69 Clay Hinton 11/12/2019 Supn Fluconazole 2 tabs on day 1 15tabs [facility], 07/21/2019 - 200mg Tablets the 1 tab daily Clay Hinton 08/04/2019 for 2 weeks. Stop atorvastatin while taking this medication. Immunizations CPT Code Status Date Vaccine Lot # [id number] Given 07/19/2019 Influenza Virus Vaccine, Quadrivalent, Split, [id number] Preservative Free [id number] Given 09/01/2018 Influenza Virus Vaccine, Quadrivalent, Split, [id number] Preservative Free 06052 Given 07/08/2017 Influenza Virus Vaccine, Quadrivalent, Split, [id number] Preservative Free 25190 Given 01/18/2017 Adacel or Boostrix, TDaP [id number] 02868 Given 11/30/2016 Influenza Virus Vaccine, Quadrivalent, Split, Im Use U-Pneum Given 01/18/2009 Pneumococcal,Unspecified Vital Signs Date Vital Result Comment 12/07/2019 1:46pm BP Systolic 140 mmHg BP Diastolic 72 mmHg Heart Rate 86 /min O2 % BldC Oximetry 97 % Weight 203.00 lb w/boots and coat 11/13/2019 10:49am BP Systolic 142 mmHg BP Diastolic 84 mmHg Height 64 inches 5'4" Weight 196.00 lb BMI (Body Mass Index) 33.6 kg/m2 Results Test Acquired Date Facility Test Result H/L Range Note Laboratory test 12/07/2019 In House Hemoglobin A1c 8.1 finding Laboratory test 11/23/2019 [facility] Troponin-I 0.02 ng/mL <0.03 1 finding [phone] (TnI) Inr/Protime 11/23/2019 [facility] Inr 0.97 Normal 0.82-1.09 2 [phone] CBC Auto Diff 11/23/2019 [facility] White Blood 14.7 High 3.5-10.8 [phone] Count 10^3/uL Red Blood Count 3.97 10^6/uL Normal 3.70-4.87 Hemoglobin 11.5 g/dL Low 12.0-16.0 Hematocrit 35 % Normal 35-47 Mean Corpuscular Volume 87 fL Normal 80-97 Mean Corpuscular Hemoglobin 29 pg Normal 27-31 Mean Corpuscular HGB Conc 33 g/dL Normal 31-36 Red Cell Distribution Width 16 % High 10-15 Platelet Count 350 10^3/uL Normal 150-450 Mean Platelet Volume 8.0 fL Normal 7.4-10.4 Abs Neutrophils 13.1 10^3/uL High 1.5-7.7 Abs Lymphocytes 0.8 10^3/uL Low 1.0-4.8 Abs Monocytes 0.5 10^3/uL Normal 0-0.8 Abs Eosinophils 0.1 10^3/uL Normal 0-0.6 Abs Basophils 0.1 10^3/uL Normal 0-0.2 Abs Nucleated RBC 0.0 10^3/uL Granulocyte % 89.6 % Lymphocyte % 5.7 % Monocyte % 3.2 % Eosinophil % 1.0 % Basophil % 0.5 % Nucleated Red Blood Cells % 0.0 Laboratory test 11/23/2019 [facility] Troponin-I (TnI) 0.02 ng/mL < 0.03 3 finding [phone] Comp Metabolic 11/23/2019 [facility] Sodium 140 mmol/L Normal 135- 145 Panel [phone] Potassium 4.5 mmol/L Normal 3.5-5.0 Chloride 107 mmol/L Normal 101-111 Co2 Carbon Dioxide 24 mmol/L Normal 22-32 Anion Gap 9 mmol/L Normal 2-11 Glucose 162 mg/dL High 70-100 Blood Urea Nitrogen 23 mg/dL Normal 6-24 Creatinine 1.11 mg/dL High 0.51-0.95 BUN/Creatinine Ratio 20.7 High 8-20 Calcium 9.1 mg/dL Normal 8.6-10.3 Total Protein 7.2 g/dL Normal 6.4-8.9 Albumin 3.7 g/dL Normal 3.2-5.2 Globulin 3.5 g/dL Normal 2-4 Albumin/Globulin Ratio 1.1 Normal 1-3 Total Bilirubin 0.70 mg/dL Normal 0.2-1.0 Alkaline Phosphatase 136 U/L High 34-104 Alt 13 U/L Normal 7-52 Ast 14 U/L Normal 13-39 Egfr Non- 51.0 >60 Egfr 61.7 >60 4 Laboratory test 11/23/2019 [facility] B-Type Natriuretic 443 pg/mL High <=100 finding [phone] Peptide BNP Magnesium 2.1 mg/dL Normal 1.9-2.7 Laboratory test 10/28/2019 [facility] Troponin-I 0.11 Critical <0.03 5 finding [phone] (TnI) ng/mL high Urine Culture And 10/27/2019 [facility] Urine Culture SEE 6 Sensitivities [phone] RESULT BELOW Urinalysis 10/27/2019 [facility] Urine Color Yellow Profile [phone] Urine Appearance Clear Urine Specific [place] 1.013 Normal 1.010-1.030 Urine pH 6.0 Normal [...] Urine Squamous Epithelial Cell Present Abnormal Absent Laboratory test 10/27/2019 [facility] Magnesium 2.2 mg/dL Normal 1.9- 2.7 finding [phone] Lipase 18 U/L Normal 11.0-82.0 Troponin-I (TnI) 0.04 ng/mL Critical high <0.03 7 C Reactive Protein 18.58 mg/L High <8.01 TSH (Thyroid Stim Horm) 0.09 mcIU/mL Low 0.34-5.60 B-Type Natriuretic Peptide BNP 120 pg/mL High <=100 T3 Free 4.50 pg/mL High 2.5-3.9 Free T4 (Free Thyroxine) 1.41 ng/dL High 0.61-1.12 Comp Metabolic Panel 10/27/2019 [facility] Sodium 133 mmol/L Low 135- 145 [phone] Potassium 3.9 mmol/L Normal 3.5-5.0 Chloride 98 [...] Egfr Non- 33.2 >60 Egfr 40.2 >60 8 CBC Auto Diff 10/27/2019 [facility] White Blood 10.2 10^3/uL Normal 3.5-10.8 [phone] Count Red Blood Count 4.56 10^6/uL Normal [...] Red Blood Cells % 0.1 Laboratory test 09/15/2019 [facility] Lactic Acid 1.5 mmol/L Normal 0.5-2.0 9 finding [phone] Comp Metabolic 09/15/2019 [facility] Sodium 135 mmol/L Normal 135- 145 Panel [phone] Potassium 4.2 mmol/L Normal 3.5-5.0 Chloride 102 [...] Egfr Non- 42.5 >60 Egfr 51.5 >60 10 Laboratory test finding 09/15/2019 [facility] Lipase 12 U/L Normal 11.0-82.0 [phone] C Reactive Protein 22.47 mg/L High <8.01 CBC Auto Diff 09/15/2019 [facility] White Blood 11.5 10^3/uL High 3.5 -10.8 [phone] Count Red Blood Count 4.67 10^6/uL Normal [...] Blood Cells % 0.0 Urine Microalbumin 09/08/2019 [facility] Ur Microalbumin 26.1 mg/L Random [phone] (mg/L) Urine Creatinine 26.09 mg/dL Urine Microalbumin/Creatinine 100.0 High <31 Laboratory test 09/08/2019 In House Hemoglobin A1c 11.8 finding Laboratory test 08/20/2019 [facility] Troponin-I (TnI) 0.03 ng/mL < 0.04 11 finding [phone] Comp Metabolic 08/20/2019 [facility] Sodium 130 mmol/L Low 135-145 Panel [phone] Potassium 4.8 mmol/L Normal 3.5-5.0 Chloride 96 [...] Egfr Non- 31.2 >60 Egfr 37.8 >60 12 Glucose 617 mg/dL Critical high 70-100 13 Inr/Protime 08/20/2019 [facility] Inr 0.88 Normal 0.82-1.09 14 [phone] CBC Auto Diff 08/20/2019 [facility] White Blood 7.4 10^3/uL Normal 3.5-10.8 [phone] Count Red Blood Count 4.74 10^6/uL Normal [...] Red Blood Cells % 0.1 Laboratory 08/20/2019 [facility] Troponin-I 0.02 <0.04 15 test finding [phone] (TnI) ng/mL Laboratory 08/20/2019 [facility] Point of Care > 444 Critical 70-100 16 test finding [phone] Glucose mg/dL high Laboratory 08/20/2019 [facility] Glucose 495 High 70-100 test finding [phone] Confirmatory mg/dL Laboratory 08/20/2019 [facility] Point of Care 432 Critical 70-100 17 test finding [phone] Glucose mg/dL high Laboratory 08/20/2019 [facility] Point of Care 351 High 70-100 18 test finding [phone] Glucose mg/dL CBC Auto Diff 07/19/2019 [facility] White Blood 9.8 Normal 3.5-10.8 [phone] Count 10^3/uL Red Blood Count 4.44 10^6/uL [...] Cells % 0.2 Comp Metabolic Panel 07/19/2019 [facility] Sodium 136 mmol/L Normal 135-145 [phone] Potassium 5.0 mmol/L Normal 3.5-5.0 Chloride 96 [...] Egfr Non- 27.4 >60 Egfr 33.2 >60 19 Urinalysis Profile 07/19/2019 [facility] Urine Color Yellow [phone] Urine Appearance Cloudy Urine Specific [place] 1.014 Normal 1.010-1.030 Urine pH 5.0 Normal [...] Present Abnormal Absent Urine Culture And 07/19/2019 [facility] Urine Culture SEE RESULT 20 Sensitivities [phone] BELOW Laboratory test 07/19/2019 [facility] Erythrocyte Sed 61 mm/Hr High 0 -29 finding [phone] Rate C Reactive Protein 18.39 mg/L High <8.01 1 Troponin-I testing on Plasma Separator Tubes (PST) has a known false positive rate of 0.20-0.40%. All positive troponins reflex immediately to secondary confirmatory testing. Using the [employer] DxI 800 Access Immunoassay systems, the 99th percentile upper reference limit was demonstrated to be < 0.03 ng/mL. 2 Standard intensity warfarin therapeutic range: 2.0-3.0 High intensity warfarin therapeutic range: 2.5-3.5 3 Troponin-I testing on Plasma Separator Tubes (PST) has a known false positive rate of 0.20-0.40%. All positive troponins reflex immediately to secondary confirmatory testing. Using the [employer] DxI 800 Access Immunoassay systems, the 99th [...] Kidney failure <15 (or dialysis) 5 Result TnIDx:0.11 Called to [id number] at: 02:17:43 by:[id number] Read back by: [id number] Troponin-I testing on Plasma Separator Tubes (PST) has a known false positive rate of 0.20-0.40%. All positive troponins reflex immediately to secondary confirmatory testing. Using the [employer] DxI 800 Access Immunoassay systems, the 99th percentile upper reference limit was demonstrated to be < 0.03 ng/mL. 6 SEE RESULT BELOW Name: GABRIEL ZAVALA : [address]: Dianna Calvillo MD Acct: [id number] Unit: [id number] AGE: 54 Location: [place] [address] Re10/28/19 SEX: F Status: ADM IN SPEC: [id number] KYRA: 10/28/19-[address] [facility] [address]: Jesse PERKINS REQ: [id number] RECD: 10/28/19 STATUS: MJ GRIJALVA DR: [facility] Jamaal Garcia DO _ SOURCE: URINE SPDESC: ORDERED: Urine Culture Procedure Result Reported Site Urine Culture Final 01/05/20- 1154 ML Organism 1 AEROCOCCUS URINAE [place] Count >100,000 (Many) CFU/ML Organism 2 NORMAL DICKSON [place] Count 1-10,000 (Few) CFU/ML Aerococcus isolates are too fastidious for routine susceptibility studies. Aerococcus are usually susceptible to penicillin, amoxicillin, piperacillin, cefipime, rifampin and vancomycin. Moderate to good activity occurs with the quinolones, tetracyclines and erythromycin. ([employer] Color [place] and Textbook of Diagnostic Microbiology 6th Ed. 2006, p. 705-6.) * ML - Main Lab . END OF REPORT DEPARTMENT OF PATHOLOGY, [address] [place] [address] Mg Ruff M.D. Director [facility] # [id number] 7 Result TnIDx:0.04 Called to [id number] at: 23:33:09 by:[id number] Read back by: [id number] Troponin-I testing on Plasma Separator Tubes (PST) has a known false positive rate of 0.20-0.40%. All positive troponins reflex immediately to secondary confirmatory testing. Using the [employer] 800 Access Immunoassay systems, the 99th percentile [...] 5 Kidney failure <15 (or dialysis) 9 [facility] Severe Sepsis and Septic Shock Management Bundle Measure requires all lactic acids initially measuring >2.0 mmol/L be repeated. 10 Because ethnic data is not always [...] 5 Kidney failure <15 (or dialysis) 11 Troponin-I testing on Plasma Separator Tubes (PST) has a known false positive rate of 0.20-0.40%. All positive troponins reflex immediately to secondary confirmatory testing. Using the [employer] DxI 800 Access Immunoassay systems, the 99th percentile upper reference limit was demonstrated to be < 0.03 ng/mL. 12 Because ethnic data is not always [...] failure <15 (or dialysis) 13 Critical Result [id number] Called to [id number] at: 17:29:14 by:[id number] Read back by:[email or web address] 14 Standard intensity warfarin therapeutic range: 2.0-3.0 High intensity warfarin therapeutic range: 2.5-3.5 15 Troponin-I testing on Plasma Separator Tubes (PST) has a known false positive rate of 0.20-0.40%. All positive troponins reflex immediately to secondary confirmatory testing. Using the [employer] DxI 800 Access Immunoassay systems, the 99th percentile upper reference limit was demonstrated to be < 0.03 ng/mL. 16 Team Foreman: [id number] 17 Team Foreman: [id number] 18 Team Foreman: [id number] 19 Because ethnic data is not always readily [...] 15-29 5 Kidney failure <15 (or dialysis) 20 SEE RESULT BELOW Name: GABRIEL ZAVALA : [address]: Jamaal Garcia DO Acct: [id number] Unit: [id number] AGE: 54 Location: [facility] Re07/19/19 SEX: F Status: REG REF SPEC: [id number] KYRA: 07/19/19-[address]: Jamaal Garcia DO REQ: [id number] RECD: 07/19/19 STATUS: COMP _ SOURCE: URINE SPDESC: ORDERED: Urine Culture Procedure Result Reported Site Urine Culture Final 07/20/19- 1608 ML No growth of clinically significant organisms * ML - Main Lab . END OF REPORT DEPARTMENT OF PATHOLOGY, [address] [place] [address] Mg Ruff M.D. Director [facility] # [id number] Procedures Date Code Description Status 10/10/2019 770189166 Diabetic Retinal Eye Exam Completed 10/06/2019 49998 X-Ray Elbow Three Views Completed 09/08/2019 [id number] Diabetic Foot Exam Completed 07/19/2019 91771 Electrocardiogram Complete Completed 02/15/2019 [id number] Mammogram Completed Medical Devices Description No Information Available Encounters Type Date Location Provider Dx Diagnosis Office Visit 12/07/2019 Main Office Jamaal Garcia, E11.69 Type 2 diabetes 1:30p D.O. 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 specified complication 12/07/2019 E04.1 Nontoxic single thyroid nodule Jamaal Garcia D.O. 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 12/07/2019 N18.3 Chronic kidney disease, stage 3 (moderate) Jamaal Garcia, D.O. 12/07/2019 I70.234 Atherosclerosis of kiana arteries of right Jamaal Garcia, D.O. leg with ulcerat 12/07/2019 J44.9 Chronic obstructive pulmonary disease, SopJamaal singh, D.O. unspecified 12/07/2019 F17.211 Nicotine dependence, cigarettes, in Jamaal Garcia D.O. remission 12/07/2019 I50.32 Chronic diastolic (congestive) heart failure Jamaal Garcia D.O. 12/07/2019 I10 Essential (primary) hypertension Jamaal Garcia D.O. 11/13/2019 E11.69 Type 2 diabetes mellitus with other Jamaal Garcia D.O. specified complication 11/13/2019 E11.65 Type 2 diabetes mellitus with hyperglycemia Jamaal Garcia D.O. 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 11/13/2019 N18.3 Chronic kidney disease, stage 3 (moderate) Jamaal Garcia D.O. 11/13/2019 I70.234 Atherosclerosis of kiana arteries of right Jamaal Garcia, D.O. leg with ulcerat 11/13/2019 J44.9 Chronic obstructive pulmonary disease, Jamaal Garcia, D.O. unspecified 11/13/2019 F17.211 Nicotine dependence, cigarettes, in RadhaJamaal D.O. remission 11/13/2019 I50.32 Chronic diastolic (congestive) heart failure Jamaal Garcia D.O. 11/13/2019 I21.9 Acute myocardial infarction, unspecified Jamaal Garcia D.O. 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 specified complication 10/20/2019 E11.65 Type 2 diabetes mellitus with hyperglycemia Jamaal Garcia D.O. 10/20/2019 I10 Essential (primary) hypertension Jamaal Garcia D.O. 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 10/20/2019 N18.3 Chronic kidney disease, stage 3 (moderate) Jamaal Garcia D.O. 10/20/2019 I70.234 Atherosclerosis of kiana arteries of right EuniceJamaal singh D.O. leg with ulcerat 10/20/2019 H10.89 Other conjunctivitis Jamaal Garcia D.O. 10/12/2019 E11.69 Type 2 diabetes mellitus with other Jamaal Garcia D.O. specified complication 10/12/2019 M77.11 Lateral epicondylitis, right elbow Jamaal Garcia D.O. 10/12/2019 M25.521 Pain in right elbow Jamaal Garcia D.O. 10/12/2019 E11.65 Type 2 diabetes mellitus with hyperglycemia Jamaal Garcia D.O. 10/12/2019 I10 Essential (primary) hypertension Jamaal Garcia D.O. 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 10/12/2019 N18.3 Chronic kidney disease, stage 3 (moderate) Jamaal Garcia D.O. 10/12/2019 I70.234 Atherosclerosis of kiana arteries of right [place], Jamaal, D.O. leg with ulcerat 10/12/2019 J44.9 Chronic [...] (primary) hypertension Jamaal Garcia D.O. 09/08/2019 Z79.4 MCFP (current) use of insulin Jamaal Garcia D.O. 09/08/2019 N18.3 Chronic kidney disease, stage 3 (moderate) Jamaal Garcia D.O. 09/08/2019 I70.234 Atherosclerosis of kiana arteries of right Jamaal Garcia D.O. leg [...] (primary) hypertension Jamaal Garcia D.O. 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 07/19/2019 N18.3 Chronic kidney disease, stage 3 (moderate) Jamaal Garcia D.O. 07/19/2019 I70.234 Atherosclerosis of kiana arteries of right Jamaal Garcia D.O. leg with ulcerat 07/19/2019 J44.9 Chronic obstructive pulmonary disease, Jamaal Garcia D.O. unspecified 07/19/2019 Z23 Encounter for immunization Jamaal Garcia D.O. 06/15/2019 E11.65 Type 2 diabetes mellitus with hyperglycemia Jamaal Garcia D.OWilfredo 06/15/2019 I10 Essential (primary) hypertension Jamaal Gacria D.OWilfredo 06/15/2019 Z79.4 MCFP (current) use of insulin Jamaal Garcia D.OWilfredo 06/15/2019 M54.5 Low back pain Jamaal Garcia D.OWilfredo 06/15/2019 M25.551 Pain in right hip Jamaal Garcia D.OWilfredo 06/15/2019 M79.604 Pain in right leg Jamaal Garcia D.O. 06/15/2019 N18.3 Chronic kidney disease, stage 3 (moderate) Jamaal Garcia D.O. 06/15/2019 I70.234 Atherosclerosis of kiana arteries of right Jamaal Garcia D.O. leg with ulcerat 06/15/2019 J44.9 Chronic obstructive pulmonary disease, Jamaal Garcia D.O. unspecified 06/15/2019 S90.812A Abrasion, left foot, initial encounter Jamaal Garcia D.OWilfredo 06/15/2019 E11.628 Type 2 diabetes mellitus with other skin Jamaal Garcia D.O. complications Plan of Treatment Future Appointment(s):01/12/2020 11:00 am - Jamaal Garcia D.O. at [facility]0012/07/2019 - Jamaal Garcia D.O.E11.69 Type 2 diabetes mellitus with other specified complicationFollow up:as vlmpaovhqP07.1 Nontoxic single thyroid noduleNew Xrays:Ultrasound, Thyroid, Ordered: 02/13/20Comments:Reviewed CTA report which showed lymphadenopathy in hilar region. Hospital reports suggest that this was attributed to recent infection. Thyroid scan showed a cold nodule which was large and had extension. I would like to make sure it is investigated completely. Also I will ask for Dr. Ahumada's opinion about any follow up that is needed for the CTA findings. 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 Avoid/limit carbohydrates: foods like Potatoes, Wheat (bread,pasta,cookies,crackers,pretzels,dough), Rice, Ovett, and Sugar Limit sweetened beverages. Check eyes yearly with a dialated exam with an property insurance inspector Check for diabetic kidney disease yearly with urine microalbumin test Check your feet by looking at all sides daily; once a year at least have them checked by a doctor. Functional Status Description No Information Available Mental Status Description No Information Available Referrals Refer to Reason for Referral Status Appt Date Winifred Ahumada MD Chronic lung disease with poor follow up. Created Recent hospitalization with CTA with hilar lymphadenopathy. Consider follow up options. [facility] [address], [address] [place] [address] [phone] [facility] consider alternative options for colon cancer Sent 11/14/2019 screening without sedation. + fit test. Consult [facility] Treat [address] [place] [address] [phone] [facility] left foot ulcer with scabbing in similar area Sent to prior foot ulcer. nonpainful Consult and Treat [address] [address] [phone]
[2019-12-10 08:51] LABS: ABS Basophils 0.1 10^3/ul (0-0.2); ABS Eosinophils 0.2 10^3/ul (0-0.6); ABS Lymphocytes 0.9 10^3/ul (1.0-4.8); ABS Monocytes 0.5 10^3/ul (0-0.8); Hematocrit 38 % (35-47); Hemoglobin 12.6 g/dL (12.0-16.0); Lymphocyte % 7.7 %; Mean Corpuscular HGB Conc 33 g/dL (31-36); Mean Corpuscular Hemoglobin 28 pg (27-31); Mean Corpuscular Volume 85 fL (80-97); Mean Platelet Volume 7.8 fL (7.4-10.4); Platelet Count 369 10^3/uL (150-450); Red Cell Distribution Width 16 % (10-15); White Blood Count 11.7 10^3/uL (3.5-10.8)
[2019-12-10 09:12] LABS: Troponin I 0.01 ng/mL (<0.03)
[2019-12-10 09:22] LABS: Albumin 4.3 g/dL (3.2-5.2); Calcium 9.8 mg/dL (8.6-10.3); Magnesium 2.5 mg/dL (1.9-2.7); Potassium 4.2 mmol/L (3.5-5.0); Total Bilirubin 0.6 mg/dL (0.2-1.0)
[2019-12-10 09:28] LABS: Albumin/Globulin Ratio 1.1 (1-3); BUN/Creatinine Ratio 25.9 (8-20); EGFR African American 38.8 (>60); EGFR Non-African American 32.1 (>60); Total Protein 8.3 g/dL (6.4-8.9)
[2019-12-10] MEDS ORDERED: Aspirin 81 mg CHEW TAB* 81 MG TAB.CHEW PO ONE (09:38)
[2019-12-10] MEDS ORDERED: Nitro 2% OINT* (Nitroglycerin) 1 INCH/PAK PAK TOPICAL ONE (09:39)
[2019-12-10] MEDS ORDERED: NS 0.9% 500 ML* 500 ML IV ONE (09:39)
--- NOTE | 2019-12-10 09:42 | ED ---
HPI Chest Pain - HPI Summary HPI Summary: Patient is a 54 y/o F w/ Hx of NE, double bypass graft (2017) and mitral valve replacement (2017) who presents to [facility] via EMS with complaints of left anterior chest pain that onset this morning, 12/10/19. Patient states that the pain awoke her from sleep this morning; pain is characterized as a burning sensation and is noted to radiate straight through to her back and left shoulder. Patient reports having similar previous episodes of Sx. Patient states that her last cardiac stress test was a couple of months ago and that is due for another one with Dr. Grimaldo, cardiology, on 12/13/19. Patient was given three nitro by EMS this morning with no relief. She notes that nitro has alleviated her CP during previous episodes. Patient states that she had SOB and nausea as well. Nausea onset before taking nitro, patient had onset of BLANTON after taking nitro from EMS. A non-productive cough is endorsed as well. Fever and light-headedness are denied. PMHx of diabetes noted, patient is on insulin and states that her sugars are "a whole lot better than they have been". She is on Brillinta and ASA 81 mg. However, patient notes that she did not take her morning medications today. She is a non-smoker, notes occasional alcohol consumption but none recently, and denies Hx of substance abuse. Patient denies contrast allergy and states that she has had imaging with contrast previously without reaction. Home medications and allergies are reviewed. is present in the room. - History of Current Complaint Chief Complaint: EDChestPainROMI Time Seen by Provider: 12/10/19 08:33 Hx Obtained From: Patient Onset/Duration: Started Hours Ago - this morning, 12/10/19 Pain Intensity: 0 Pain Scale Used: 0-10 Numeric Chest Pain Location: Left Anterior Chest Pain Radiates: Yes Chest Pain Radiates To:: Back Character: Burning Associated Signs and Symptoms: Positive: Chest Pain, Headaches - after taking nitro, Shortness of Breath, Nausea, Nonproductive Cough, Back Pain - CP radiates into back. Negative: Dizziness, Fever, Lightheadedness - Additional Pertinent History Primary Care Physician: ЕЛЕНА - Allergy/Home Medications Allergies/Adverse Reactions: Allergies Allergy/AdvReac Type Severity Reaction Status Date / Time metformin Allergy Severe Diarrhea Verified 12/10/19 08:35 levofloxacin [From Levaquin] Allergy Nausea And Verified 12/10/19 08:35 Vomiting ondansetron Allergy Hives Verified 12/10/19 08:35 [From Zofran (as hydrochloride)] Home Medications: Home Medications Insulin Detemir [Levemir Flextouch 100 units/ml 3 ml x 5 Pens] 45 units SUBCUT ACHS 12/10/19 [History Confirmed 12/10/19] PMH/Surg Hx/FS Hx/Imm Hx Endocrine/Hematology History: Reports: Hx Anticoagulant Therapy, Hx Diabetes, Hx Anemia Cardiovascular History: Reports: Hx Angina, Hx Angioplasty, Hx Congestive Heart Failure, Hx Coronary Artery Disease, Hx Hypercholesterolemia, Hx Hypertension, Hx Myocardial Infarction, Hx Peripheral Vascular Disease, Hx Valvular Heart Disease - mitral valve replacement, Other Cardiovascular Problems/Disorders - cardiomyopathy EF 40%, bipass, PVD Denies: Hx Pacemaker/ICD Respiratory History: Reports: Hx Chronic Obstructive Pulmonary Disease (COPD) GI History: Reports: Hx Gastroesophageal Reflux Disease Musculoskeletal History: Reports: Hx Arthritis - general Sensory History: Reports: Hx Contacts or Glasses Denies: Hx Hearing Aid Opthamlomology History: Reports: Hx Contacts or Glasses Neurological History: Reports: Hx Transient Ischemic Attacks (TIA) Denies: Hx Headaches, Hx Seizures Psychiatric History: Reports: Hx Anxiety, Hx Depression Denies: Hx Panic Disorder - Surgical History Surgery Procedure, Year, and Place: Complete Hysterectomy 2004; [facility]; HEART CATH- 4 CARDIAC STENTS, CABG, M[facility] Infectious Disease History: No Infectious Disease History: Denies: Traveled Outside the [place] in Last 30 Days - Family History Known Family History: Positive: Cardiac Disease, Other - PE, DVT, Non- Contributory - Social History Occupation: Unemployed Lives: With Family Alcohol Use: Rare Hx Substance Use: No Substance Use Type: Reports: None Hx Tobacco Use: Yes Smoking Status (MU): Former Smoker Type: Cigarettes Length of Time of Smoking/Using Tobacco: since she was 11 until 1 year ago Have You Smoked in the Last Year: No Review of Systems Constitutional: Negative Negative: Fever Positive: Chest Pain Positive: Shortness Of Breath, Cough - non-productive Positive: Nausea Neurological/Mental Status: Other - negative - light-headedness Positive: Headache - after taking nitro All Other Systems Reviewed And Are Negative: Yes Physical Exam - Summary Physical Exam Summary: Vital Signs Reviewed: Yes A+Ox3, no distress, speaking easy, full sentences Eyes: Conjunctiva Clear, URIEL. EOM intact and full ENT: Hearing grossly normal TM x 2 clear, mmoist, uvula midline, no exudate, no erythema Neck: Positive: Supple Respiratory: Positive: No respiratory distress, No accessory muscle use + CTA throughout no w/r, speaking full easy sentences without difficulty Cardiovascular: RRR nl s1, s2 no m/r CBT <2 sec, no bruits, no reproducible pain abd soft + BS nt/nd no guarding, no distension Musculoskeletal Exam: VENCES x 4 without difficulty Strength Intact, ROM Intact Neurological: Positive: Alert, + sensation throughout Psychological: Positive: Normal Response To examiner Skin: Positive: no rash, no ecchymosis Triage Information Reviewed: Yes Vital Signs On Initial Exam: Initial Vitals Temp Pulse Resp BP Pulse Ox 98.1 F 91 18 173/114 95 12/10/19 08:32 12/10/19 08:32 12/10/19 08:32 12/10/19 08:32 12/10/19 08:32 Procedures - Sedation Patient Received Moderate/Deep Sedation with Procedure: No Diagnostics - Vital Signs Vital Signs Temp Pulse Resp BP Pulse Ox 12/10/19 09:08 87 17 152/75 93 12/10/19 09:00 19 12/10/19 08:42 88 12/10/19 08:38 90 18 93 12/10/19 08:36 89 14 173/95 93 12/10/19 08:34 173/114 12/10/19 08:32 98.1 F 91 18 173/114 95 - Laboratory Lab Results: Lab Results 12/10/19 12/10/19 Range/Units 08:42 08:42 WBC 11.7 H (3.5-10.8) 10^3/uL RBC 4.50 (3.70-4.87) 10^6 /uL Hgb 12.6 (12.0-16.0) g/dL Hct 38 (35-47) % MCV 85 (80-97) fL MCH 28 (27-31) pg MCHC 33 (31-36) g/dL RDW 16 H (10-15) % Plt Count 369 (150-450) 10^3/uL MPV 7.8 (7.4-10.4) fL Neut % (Auto) 85.5 % Lymph % (Auto) 7.7 % Sullivan % (Auto) 4.2 % Eos % (Auto) 2.0 % Baso % (Auto) 0.6 % Absolute Neuts (auto) 10.0 H (1.5-7.7) 10^3/ul Absolute Lymphs (auto) 0.9 L (1.0-4.8) 10^3/ul Absolute Monos (auto) 0.5 (0-0.8) 10^3/ul Absolute Eos (auto) 0.2 (0-0.6) 10^3/ul Absolute Basos (auto) 0.1 (0-0.2) 10^3/ul Absolute Nucleated RBC 0.0 10^3/ul Nucleated RBC % 0.0 Sodium 138 (135-145) mmol/L Potassium 4.2 (3.5-5.0) mmol/L Chloride 102 (101-111) mmol/L Carbon Dioxide 24 (22-32) mmol/L Anion Gap 12 H (2-11) mmol/L BUN Pending Creatinine Pending Est GFR ( Amer) Pending Est GFR (Non-Af Amer) Pending BUN/Creatinine Ratio Pending Glucose Pending Calcium 9.8 (8.6-10.3) mg/dL Magnesium 2.5 (1.9-2.7) mg/dL Total Bilirubin 0.60 (0.2-1.0) mg/dL AST Pending ALT Pending Alkaline Phosphatase Pending Troponin I 0.01 (<0.03) ng/mL Total Protein Pending Albumin 4.3 (3.2-5.2) g/dL Globulin Pending Albumin/Globulin Ratio Pending Lipase Pending Result Diagrams: 12/10/19 08:42 12/10/19 08:42 Lab Statement: Any lab studies that have been ordered have been reviewed, and results considered in the medical decision making process. - Radiology CXR Radiology Interpretation Completed By: Radiologist Summary of Radiographic Findings: IMPRESSION: NO ACTIVE CARDIOPULMONARY DISEASE IS NOTED. THIS REPORT WAS REVIEWED BY ED PHYSICIAN. - EKG 0840 Cardiac Rate: NL - rate of 87 BPM EKG Rhythm: Sinus Rhythm EKG Comparison: No Significant Change - unchanged from 11/25/19 Summary of EKG Findings: EKG showed NSR with rate of 87 BPM, RBBB, unchanged from 11/25/19, no STEMI. ED physician has reviewed and interpreted this EKG. Re-Evaluation - Re-Evaluation First Eval Re-Evaluation Time: 10:11 Change: Improved Comment: Pain is now improved with nitro paste but still present -12/04 needs to urinate - will use bedside commode. Will stop fluids as she is on 80 mg Lasix daily. d/w hospitalist Second Eval Re-Evaluation Time: 10:30 Change: Improved Comment: Patient reports that her pain is completely resolved at this time. . Dr Garcia to admit to floor Chest Pain Course/Dx - Course Course Of Treatment: Patient presents emergency department reporting left-sided chest pain that radiates to her back and left shoulder that woke her up this morning. Patient does have a complex medical history including a 2 vessel CABG in 2016, diabetes hypertension high cholesterol. Patient scheduled for stress test on 12/13. On exam vital signs are stable. Patient known concerning mentating well. EKG shows right bundle but no acute changes from previous reviewed. Discussed with patient life. We'll give aspirin as well as nitroglycerin as patient did not take her meds this morning. We'll start troponin and BNP. She patient was given IV fluids but she reports she has to easily sedate him up today so hold on that. I does be patient will likely have him admitted for rule out possible stress tomorrow. Patient comfortably with the plan. We will reassess following nitro at bedside and aware plan - Diagnoses Provider Diagnoses: Chest pain - Provider Notifications Discussed Care Of Patient With: Jennifer Garcia Time Discussed With Above Provider: 10:13 Instructed by Provider To: Other - Patient's case was discussed with Dr. Garcia. Dr Garcia notes that the patient will need to be chest pain free to be admitted, otherwise she will need to be admitted to ICU with nitro drip. Discharge ED - Sign-Out/Discharge Documenting (check all that apply): Patient Departure - Discharge Plan Condition: Improved Disposition: ADMITTED TO [facility] Referrals: Jamaal Garcia DO [Primary Care Provider] - - Billing Disposition and Condition Condition: IMPROVED Disposition: Admitted to [facility] - Attestation Statements Document Initiated by Scribe: Yes Documenting Scribe: DAVID LIMA Provider For Whom Scribe is Documenting (Include Credential): RUBENS RODRIGUES MD Scribe Attestation: I, DAVID LIMA, scribed for RUBENS RODRIGUES MD on 12/10/19 at 1101. Scribe Documentation Reviewed: Yes Provider Attestation: The documentation as recorded by the scribeDAVID accurately reflects the service I personally performed and the decisions made by me, RUBENS RODRIGUES MD Status of Scribe Document: Viewed
[2019-12-10] MEDS ORDERED: Acetaminophen TAB* 325 MG PO PRN (11:11)
[2019-12-10] MEDS ORDERED: Albuterol HFA INHALER* 8 gm MDI INH PRN (11:13)
[2019-12-10] MEDS ORDERED: Furosemide TAB* 40 MG PO SCH (11:16)
[2019-12-10] MEDS ORDERED: Nitroglycerin TAB 0.4 MG* 0.4 MG TAB SL PRN (11:17)
[2019-12-10 11:51] LABS: TSH (Thyroid Stimulating Horm) 1.38 mcIU/mL (0.34-5.60)
[2019-12-10] MEDS: Losartan TAB* 25 MG PO SCH (12:59)
[2019-12-10] MEDS: Carvedilol TAB* 6.25 MG PO SCH ×2 (12:59→21:08)
[2019-12-10] MEDS: Pantoprazole TAB * 40 MG TAB PO SCH ×2 (12:59→21:07)
[2019-12-10] MEDS: Ticagrelor* 90 MG TAB PO SCH ×2 (12:59→21:08)
[2019-12-10] MEDS: Sucralfate TAB* 1 GM PO SCH ×3 (12:59→21:07)
[2019-12-10] MEDS: Gabapentin CAP(*) 300 MG PO SCH (12:59)
[2019-12-10] MEDS ORDERED: Enoxaparin(*) 40 MG/0.4 ML SYR SUBCUT SCH (13:00)
[2019-12-10] MEDS ORDERED: Dextrose 50% Syringe 50 ML* 25 GM/50 ML SYRINGE IV PUSH PRN (13:43)
[2019-12-10] MEDS: Insulin GLARGINE(*) 1 UNITS UNIT SUBCUT SCH (14:39)
[2019-12-10] MEDS: Insulin LISPRO* 1 UNITS UNIT SUBCUT SCH ×4 (14:39→21:08)
--- NOTE | 2019-12-10 15:09 | HP ---
AMENDED REPORT NOW INCLUDES DESIGNATED COSIGNER CC: Dr. Jamaal Garcia; Dr. Jennifer Garcia; Dr. Tomas Grimaldo; Dr. Hector Ramírez * ADMISSION HISTORY AND PHYSICAL: DATE OF ADMISSION: 12/10/19 PRIMARY CARE PROVIDER: Dr. Jamaal Garcia. MY ATTENDING WHILE IN THE HOSPITAL: Dr. Jennifer Garcia.* (DICTATED BY MADDIE JAVIER) OUTPATIENT UPHOLSTERY TECHNICIAN: Dr. Tomas Grimaldo. OUTPATIENT VAMP WETTER: Dr. Hector Ramírez. CHIEF COMPLAINT: Chest pain x5 hours. HISTORY OF PRESENT ILLNESS: Ms. Chavez is a 54-year-old female with past medical history significant for coronary artery disease, status post coronary artery bypass grafting and multiple stents; diabetes with generally poor control ; heart failure with reduced ejection fraction, most recent EF 40% to 45%; and recent diagnosis of hyperthyroidism with multiple thyroid nodules, who presents to the emergency department after this morning. She was woken up by chest pain in the center of her chest, which she described as a burning sensation. It was associated with shortness of breath, nausea, and a feeling of heat without diaphoresis. The patient stated that this felt initially like heartburn, but she took an antacid and this did not help. She also took 3 nitroglycerin 5 minutes apart, none of which helped. The patient was recently admitted to this hospital and discharged on 12/14/19 with escalation of her antianginal therapy with increase in her carvedilol and the addition of Imdur to her prior medications. The patient had been feeling well before this. The patient had previously missed medications due to precipitated angina, but she states she had not missed any medications at this point, though she had not taken them yet today, but she was not yet due for them when the chest pain began. The patient denies fevers or chills, sick contacts. The patient states her weight is up and down, but she does not feel like she is fluid overloaded. She has no swelling in her lower extremities. She has no high- salt meals. She has had no other episodes of chest pain since her previous admission at the end of October for chest pain. The patient had no recent long car trips or unilateral swelling in her legs. She has no history of blood clots. The patient has a followup with Dr. Ramírez in January and a biopsy of her thyroid that she is going to be scheduled for soon. The patient also has a followup with Dr. Winifred Ahumada of Pulmonology soon. The patient's blood sugars have been under very good control. They were 176 this morning, but they have generally been 120 to 130. The patient was scheduled for an outpatient stress test per Dr. Tomas Grimaldo on 12/13/19 given her escalating pattern of chest pain as this is her third admission so far this year for it. Due to concern for chest pain in a patient with strong history of coronary artery disease and vasculopathy, we were asked to evaluate the patient for admission to the hospital. PAST MEDICAL HISTORY: Coronary artery disease, status post CABG and stenting; diabetes mellitus type 2; heart failure with reduced ejection fraction, most recent EF 40% to 45%; hypertension; hyperlipidemia; hyperthyroidism due to multiple thyroid nodules; COPD; history of TIA; history of peripheral vascular disease; GERD; anemia; diabetic neuropathy. PAST SURGICAL HISTORY: Mitral valve replacement, cholecystectomy, hysterectomy , CABG, coronary artery stents. MEDICATIONS: The patient states have not changed since her most recent discharge are: 1. Imdur 30 mg p.o. daily. 2. Carvedilol 12.5 mg p.o. b.i.d. 3. Furosemide 80 mg p.o. daily. 4. Albuterol 1 to 2 puffs inhalation q.4 hours as needed for shortness of breath. 5. Aspirin 81 mg p.o. daily. 6. Atorvastatin 80 mg p.o. at bedtime. 7. Gabapentin 300 mg p.o. daily. 8. Detemir 80 units subcutaneous daily. 9. Lispro 10 units subcutaneous with meals. 10. Losartan 25 mg p.o. daily. 11. Methimazole 5 mg p.o. daily. 12. Pantoprazole 40 mg p.o. b.i.d. 13. Sucralfate 1 g p.o. a.c. h.s. 14. Brilinta 90 mg p.o. b.i.d. 15. Incruse Ellipta 1 inhalation daily. ALLERGIES: METFORMIN, LEVAQUIN, ONDANSETRON. FAMILY HISTORY: The patient's father had diabetes, rectal cancer, and coronary artery disease and of a bowel perforation. The patient's mother had coronary artery disease, alcoholism, and of lung cancer at age of 72. SOCIAL HISTORY: The patient has over 100-pack year history of smoking, having quit 2 years ago and has not had any cigarettes since. The patient drinks occasional alcohol. Denies illicit drug use. 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 The patient is and has 2 children. The patient's surrogate decision maker will be either her , Bailee Chavez or her daughter, Lina Ortega. REVIEW OF SYSTEMS: A 10-point review of systems was reviewed and is negative except as above in the HPI. PHYSICAL EXAMINATION GENERAL: The patient is a 54-year-old female, who appears stated age and sitting in the bed, in no acute distress. VITAL SIGNS: At the time of evaluation, temperature 98.1, pulse rate 84, respiratory rate 19, oxygen saturation 100% on 2 L, blood pressure 159/106. HEENT: Head: Normocephalic, atraumatic. Sclerae anicteric. No conjunctival injection. Nasal mucosa moist. Oral mucosa moist. No pharyngeal erythema, discharge, or exudate. NECK: Supple, nontender. No lymphadenopathy. No carotid bruits auscultated. No JVD. RESPIRATORY: Clear to auscultation bilaterally. No wheezes, rales, or rhonchi. Good air exchange bilaterally. CARDIAC: Regular rate and rhythm. No clicks, murmurs, gallops, or rubs. Pulses are 2+ in the bilateral dorsalis pedis, posterior tibialis, and radial areas. ABDOMEN: Soft, nontender, nondistended. Bowel sounds present and normoactive in all 4 quadrants. No hepatosplenomegaly. No abdominal bruits auscultated. No hepatojugular reflux. GENITOURINARY: No suprapubic or CVA tenderness. NEURO: Cranial nerves II through XII intact. No focal deficits. Alert and oriented x3. PSYCHIATRIC: Pleasant and cooperative. SKIN: Clean, dry, and intact. No rash. DIAGNOSTIC STUDIES/LAB DATA: White blood cell count 11.7, hemoglobin 12.6, platelet count 369. Sodium 138, potassium 4.2, chloride 102, carbon dioxide 24 , anion gap 12, BUN 43, creatinine 1.66, glucose 189, calcium 9.8, magnesium 2.5. Bilirubin 0.6, AST 11, ALT 12, alkaline phosphatase 168. Troponin I 0.01, BNP 326. Protein 8.3, albumin 4.3, globulin 4.0. Lipase 22. TSH pending. Studies: Electrocardiogram is nonischemic. Chest x-ray read as no acute cardiopulmonary disease. ASSESSMENT AND PLAN: Ms. Chavez is a 54-year-old female with past medical history significant for coronary artery disease, diabetes mellitus type 2, heart failure with reduced ejection fraction, thyrotoxicosis, who presents to the emergency department with 5 hours of substernal burning chest pain, but is now chest pain-free after the application of a nitroglycerin patch, admitted to the hospital for further ischemic evaluation given her crescendo episodes of chest pain. 1. Chest pain. The patient's chest pain has some concerning features for this being cardiac in origin including shortness of breath, associated nausea; however, the substernal and burning nature are not particularly concerning, though this does seem to be her pattern. The patient's CASSIE risk score is a 3. The patient was already scheduled for an outpatient stress test. Given the increased risk based on the fact that this could be related to unstable angina for myocardial infarction, the patient will have her stress test while in the hospital tomorrow, 12/11/19. The patient had a recent A1c, which was 8.1 on the week before her admission. This will not be repeated. This is greatly improving as her A1c in October was 12.2. The patient will have a repeat lipid profile, though her most recent LDL cholesterol in October was excellent at 25. The patient does not appear fluid overloaded, is not tachycardic, but slightly hypertensive. Continue the patient's home antianginals except transitioning the patient's Imdur to nitroglycerin patch as this appears to have helped her. The patient received aspirin at 325 and will be continued on her Brilinta. 2. Diabetes mellitus type 2. The patient follows with Dr. Ramírez outpatient and her blood sugar control seems to have increased greatly. Continue the patient' s scheduled t.i.d. insulin dosing and 80 units of basal insulin daily. 3. Heart failure with reduced ejection fraction. The patient appears euvolemic at this time. Continue the patient's home dosing of 80 mg of Lasix daily. 4. Hypertension. The patient is slightly hypertensive. Resume the patient's home antihypertensives including carvedilol, losartan, and Lasix. The patient has been started on a nitroglycerin patch instead of her Imdur. 5. Gastroesophageal reflux disease. The patient's chest pain may be related to reflux. Continue the patient's pantoprazole b.i.d. and her sucralfate. 6. Chronic obstructive pulmonary disease. Continue the patient's as needed albuterol inhaler and Incruse. The patient is not in exacerbation at this time. 7. Hyperthyroidism. Recheck the patient's TSH. Continue the patient's methimazole. Biopsy pending outpatient. Follow up with Dr. Ramírez. 8. History of transient ischemic attack. Continue the patient's statin, aspirin, and Brilinta. 9. Neuropathy. Continue the patient's gabapentin. 10. Disposition: The patient is admitted to observation to the hospital. 11. FEN: Heart-healthy diet, caffeine okay. 12. DVT prophylaxis: Lovenox subcu. TIME SPENT: Approximately 60 minutes was spent on the admission of this patient , 30 of which was spent [id number] with the patient obtaining history and physical and discussing treatment plan. This plan was discussed with my attending, Dr. Jennifer Garcia, and she is in agreement. MADDIE JAVIER [id number]/CPS #: [id number] MTDD
[2019-12-10] MEDS: Methimazole TAB* 5 MG PO SCH (15:47)
[2019-12-10] MEDS ORDERED: Atorvastatin* 80 MG TAB PO SCH (18:00)
[2019-12-10] MEDS ORDERED: Nitro Patch/OINT Remove PATCH OFF SCH (21:00)
[2019-12-11 05:42] LABS: ABS Basophils 0.1 10^3/ul (0-0.2); ABS Eosinophils 0.2 10^3/ul (0-0.6); ABS Lymphocytes 1.5 10^3/ul (1.0-4.8); ABS Monocytes 0.6 10^3/ul (0-0.8); ABS Neutrophils 6.5 10^3/ul (1.5-7.7); Eosinophil % 2.6 %; Hematocrit 32 % (35-47); Hemoglobin 10.6 g/dL (12.0-16.0); Lymphocyte % 16.7 %; Mean Corpuscular HGB Conc 33 g/dL (31-36); Mean Corpuscular Hemoglobin 29 pg (27-31); Mean Corpuscular Volume 86 fL (80-97); Mean Platelet Volume 7.8 fL (7.4-10.4); Nucleated Red Blood Cells % 0.1; Platelet Count 305 10^3/uL (150-450); Red Cell Distribution Width 17 % (10-15); White Blood Count 8.8 10^3/uL (3.5-10.8)
[2019-12-11 05:51] LABS: Calcium 8.8 mg/dL (8.6-10.3); Magnesium 2.4 mg/dL (1.9-2.7); Potassium 3.9 mmol/L (3.5-5.0)
[2019-12-11 05:57] LABS: BUN/Creatinine Ratio 23.6 (8-20); EGFR African American 30.8 (>60); EGFR Non-African American 25.4 (>60); HDL Cholesterol 32.9 mg/dL
[2019-12-11 06:29] LABS: Troponin I 0.01 ng/mL (<0.03)
[2019-12-11] MEDS: Insulin LISPRO* 1 UNITS UNIT SUBCUT SCH ×4 (07:30→12:41)
[2019-12-11] MEDS ORDERED: Aminophylline IV* 25 MG/ML 10 ML VIAL ONE (08:32)
[2019-12-11] MEDS ORDERED: Regadenoson* 0.4 MG/5 ML SYRINGE ONE (08:32)
[2019-12-11] MEDS ORDERED: Furosemide TAB* 40 MG PO SCH (09:00)
[2019-12-11] MEDS ORDERED: Aspirin 81 mg CHEW TAB* 81 MG TAB.CHEW PO SCH (09:00)
[2019-12-11] MEDS ORDERED: SPIRIVA Respimat* (tiotropium) 2.5 mcg/inh Inhaler INH SCH (09:00)
[2019-12-11] MEDS ORDERED: Nitroglycerin 0.2 MG/HR PATCH* (5 MG) TRANSDERM SCH (09:00)
[2019-12-11] MEDS: Sucralfate TAB* 1 GM PO SCH ×2 (10:24→12:38)
[2019-12-11] MEDS ORDERED: Loperamide CAP* 2 MG PO PRN (10:33)
[2019-12-11] MEDS: Carvedilol TAB* 6.25 MG PO SCH (10:42)
[2019-12-11] MEDS: Gabapentin CAP(*) 300 MG PO SCH (10:42)
[2019-12-11] MEDS: Pantoprazole TAB * 40 MG TAB PO SCH (10:44)
[2019-12-11] MEDS: Losartan TAB* 25 MG PO SCH (10:44)
[2019-12-11] MEDS: Ticagrelor* 90 MG TAB PO SCH (10:45)
[2019-12-11] MEDS: Methimazole TAB* 5 MG PO SCH (10:46)
[2019-12-11 11:15] VITALS: BP 112/60
[2019-12-11] MEDS: Insulin GLARGINE(*) 1 UNITS UNIT SUBCUT SCH (12:42)
--- NOTE | 2019-12-11 15:27 | DS ---
CC: Dr. Jamaal Garcia; Dr. Tomas Grimaldo * DISCHARGE SUMMARY: DATE OF ADMISSION: 12/10/19 DATE OF DISCHARGE: 12/11/19 PRIMARY CARE PROVIDER: Dr. Jamaal Garcia. MY ATTENDING WHILE IN THE HOSPITAL: Dr. Darren Mckeon.* (DICTATED BY MADDIE JAVIER) OUTPATIENT BUSINESS WRITER: Dr. Tomas Grimaldo. PRIMARY DISCHARGE DIAGNOSIS: Chest pain. SECONDARY DISCHARGE DIAGNOSES: 1. Heart failure with reduced ejection fraction, EF 40% to 45%. 2. Coronary artery disease, status post coronary artery bypass grafting. 3. Diabetes mellitus type 2. 4. Hypertension. 5. Hyperlipidemia. 6. Hyperthyroidism with multiple thyroid nodules. 7. Chronic obstructive pulmonary disease. 8. History of transient ischemic attack. 9. History of peripheral vascular disease. 10. Gastroesophageal reflux disease. 11. Anemia. 12. Diabetic neuropathy. 13. History of mitral valve replacement. STUDIES DONE WHILE IN THE HOSPITAL: EKG is nonischemic. Chest x-ray from 12/10 read as no active cardiopulmonary disease is noted. Nuclear medicine scan from 12/11/19 read as no evidence for infarct or ischemia, low cardiac left ventricular ejection fraction of 35%. MEDICATIONS AT DISCHARGE: 1. Atorvastatin 80 mg p.o. daily. 2. Aspirin 81 mg p.o. daily. 3. Ventolin 1 to 2 puffs inhalation q.4 hours as needed. 4. Pantoprazole 40 mg p.o. b.i.d. 5. Brilinta 90 mg p.o. b.i.d. 6. Methimazole 5 mg p.o. daily. 7. Insulin Lispro 10 units subcutaneous with meals. 8. Incruse Ellipta 1 inhalation daily. 9. Sucralfate 1 g p.o. a.c. h.s. 10. Losartan 25 mg p.o. daily. 11. Gabapentin 300 mg p.o. daily. 12. Carvedilol 12.5 mg p.o. b.i.d. 13. Furosemide 80 mg p.o. daily. 14. Insulin detemir 45 units subcutaneous b.i.d. 15. Tylenol 650 mg p.o. q.6 hours as needed. 16. Loperamide 2 mg p.o. with every loose bowel movement as needed. 17. Nitroglycerin 2 mg per hour patch, 1 patch transdermal daily at 0900. 18. Nitroglycerin 0.4 mg sublingual q.5 minutes as needed. Medications discontinued at discharge: 1. Imdur. New medications on discharge: 1. Loperamide. 2. Nitroglycerin patch. 3. Nitroglycerin tab. HOSPITAL COURSE: This is a brief summary of the patient's presentation, for more details please see history and physical from this author on 12/10/19. In brief, the patient is a 54-year-old female with past medical history significant for the above, who was admitted to the hospital 3 times this year for chest pain; the first time it was attributed to thyrotoxicosis. She was started on methimazole and discharged. The second time, she was evaluated with an echocardiogram which showed known decreased ejection fraction and was started on Imdur and discharged. At that time, it was believed the patient's chest pain may be gastrointestinal related as it responded well to antacids during her hospitalization. The patient on the day of her admission woke up with severe chest discomfort with associated shortness of breath, nausea, and a feeling of warmth. The patient took 3 nitroglycerin and an antacid without any change in the pain. The patient came into the emergency department, was started on a nitroglycerin patch which was able to resolve her pain entirely. The patient was previously scheduled for an outpatient stress test on 12/13/19 given the patient's accelerating pattern of chest pain. The patient was last admitted to the hospital, had a nuclear medicine stress test on 12/11/19, which was read as above, intermediate risk only for known decreased ejection fraction, no areas of fixed or reversible ischemia. The patient's blood pressure after being started on the nitroglycerin patch was on the low side of normal, and she had no symptoms from this. The patient had some recurrent episodes of chest pain on 12/11/19 particularly when she lied flat for her stress test. As such given this finding of the patient's chest pain, again it was deemed possibly related to her gastrointestinal tract. The patient is already on sucralfate b.i.d., pantoprazole, so this was not increased at this time. The patient was encouraged to take antacids as needed. The patient was stable and discharged on 12/11/19 for a close followup with primary care provider and her outpatient it project lead. Of note, the patient had a creatinine of 1.66 on admission and then increased to 2.03 for unclear reason. On the second day of her discharge, positive hyperglycemia causing osmotic diuresis. The patient was encouraged to drink a moderate amount of additional fluids, and we will restart her home antihyperglycemic regimen. PHYSICAL EXAMINATION: General: On the day of exam, the patient is a 54-year- old female who appears older than stated age, sitting back, in no acute distress. Vital Signs : Temperature 97.4, pulse rate 74, respiratory rate 16, O2 saturation 100% on room air, blood pressure 112/60. HEENT: Head normocephalic, atraumatic. Sclerae intact. No conjunctival injection. Nasal mucosa moist. Oral mucosa moist. No oropharyngeal erythema, discharge, or exudate. Neck: Supple and nontender. No lymphadenopathy. No carotid bruits auscultated, no JVD. Cardiac: Regular rate and rhythm. No clicks, murmurs, gallops, or rubs. Pulses are 2+ in the dorsalis pedis, posterior tibialis, and radial areas. Respiratory: Clear to auscultation bilaterally. No wheezes, rales, or rhonchi. Good air exchange bilaterally. Abdomen: Soft, nontender, and nondistended. Bowel sounds present and normoactive in all 4 quadrants. No hepatosplenomegaly. No abdominal bruits auscultated. No hepatojugular reflux. Genitourinary: No suprapubic or CVA tenderness. Skin: Clean, dry, and intact. No rash. Neuro: Cranial nerves II through XII intact. No focal deficits. Alert and oriented x3. Psychiatric: Pleasant and cooperative. DISCHARGE PLAN BY PROBLEM: 1. Chest pain. The patient's chest pain does not appear to be coming from her heart. Her stress test was normal and she is not at a high risk for acute coronary syndrome. The patient has been started on nitroglycerin patch, placing her on Imdur and this seems to be working better to suppress this pain; however, this pain may still be gastrointestinally related and the patient has a followup with her ruby on rails developer for colonoscopy in January, endoscopy, or manometry or other evaluation of the patient's esophageal motility may be considered at that time. The patient was again recommended to take antacids and nitroglycerin as needed and come to the hospital if chest pain is severe and not responsive to nitroglycerin or antacids as she previously had. 2. Heart failure with reduced ejection fraction. The patient appears euvolemic at this time. The patient is not hypoxic. The patient will be continued on her Lasix that was increased on her previous admission. The patient is on ARB and carvedilol. 3. Coronary artery disease. Continue the patient's aspirin, Lipitor, and Brilinta. The patient's troponins were negative. Normal stress test as above. 4. Mediastinal lymphadenopathy. The patient was noted on the CTA from her previous admission to have hilar mediastinal lymphadenopathy with the differential including metastatic lymphadenopathy. The patient is scheduled for thyroid nodule biopsy to rule out thyroid cancer. This should be expedited as soon as possible. The patient should follow up with her deck officer regarding this. 5. Hyperthyroidism. Continue the patient's methimazole. The patient should again follow up with her deck officer regarding her hyperthyroidism and her thyroid nodule. The patient's TSH during this admission was 1.38. Except for dry skin, shows no other sign of hyperthyroidism. 6. Diabetes mellitus type 2. The patient's blood glucose control while in the hospital was not ideal; however, the patient was inadvertently on a decreased dose of her long-acting insulin while in the hospital. The patient was resumed on detemir b.i.d. and scheduled Lispro with meals as above. 7. Hypertension. The patient is normotensive on the above regimen. The patient should have a repeat blood pressure check at her followup. The patient was hypertensive on admission but has not taken her morning meds at that time. DISPOSITION: Home. CONDITION: Stable. TIME SPENT: Approximately 60 minutes was spent on this discharge, greater than 30 of which was spent [id number] with the patient obtaining history and physical and discussing treatment plan. MADDIE JAVIER [id number]/CPS #: [id number] MTDD
== END 2019-12-11 14:30 | disposition home or self-care (01) ==
LOC: ED 08:27 → MEDTELE 11:11
PROVIDERS: ADMIT Internal Medicine; ATTEND Internal Medicine
DX: R07.9 Chest pain, unspecified (principal); I11.0 Hypertensive heart disease with heart failure; I50.20 Unspecified systolic (congestive) heart failure; I25.10 Atherosclerotic heart disease of native coronary artery without angina pectoris; R51 Headache; R06.02 Shortness of breath; R11.0 Nausea; E11.9 Type 2 diabetes mellitus without complications; D64.9 Anemia, unspecified; E78.00 Pure hypercholesterolemia, unspecified; I25.2 Old myocardial infarction; K21.9 Gastro-esophageal reflux disease without esophagitis; F41.9 Anxiety disorder, unspecified; F32.9 Major depressive disorder, single episode, unspecified; E78.5 Hyperlipidemia, unspecified; E05.90 Thyrotoxicosis, unspecified without thyrotoxic crisis or storm; J44.9 Chronic obstructive pulmonary disease, unspecified; E11.40 Type 2 diabetes mellitus with diabetic neuropathy, unspecified; Z95.4 Presence of other heart-valve replacement; Z95.1 Presence of aortocoronary bypass graft; Z79.82 Long term (current) use of aspirin; Z79.01 Long term (current) use of anticoagulants; Z79.899 Other long term (current) drug therapy; Z79.4 Long term (current) use of insulin; Z87.891 Personal history of nicotine dependence; Z86.73 Personal history of transient ischemic attack (TIA), and cerebral infarction without residual deficits
CPT/HCPCS: 36415; 71045; 78452; 80048; 80053; 80061; 83690; 83735; 83880; 84443; 84484; 85025; 93005; 93017; 99285; A9270-GY; A9502; G0378; J0280; J1650; J2785; J3535

== ENCOUNTER 2019-12-20 23:09 | Observation (INO) | payer MEDICARE ==
--- NOTE | 2019-12-21 00:21 | ED ---
HPI Chest Pain - HPI Summary HPI Summary: Patient complains of intermittent chest pressure 1 week. Seen here for same symptoms before on 12/10. Patient was admitted at that time with subsequent negative stress test evaluation. Ejection fraction 35% on echocardiogram. Patient discharged 12/11. Pain chest pain remains persistent. Described as intermittent, lasting 10-15 minutes at a time. Denies fever, cough, sore throat , SOB, N/3/D, abdominal pain, change in urine, change in BM. Medical history is cardiac bypass, mitral valve replacement, heart failure, DM, HTN, HDL, hypothyroid, COPD, TIA, GERD, anemia, diabetic neuropathy. - History of Current Complaint Chief Complaint: EDChestPainROMI Time Seen by Provider: 12/21/19 00:04 Hx Obtained From: Patient Onset/Duration: Started Days Ago Timing: Intermittent, Lasting Minutes Initial Severity: Moderate Current Severity: Moderate Pain Intensity: 5 Pain Scale Used: 0-10 Numeric Chest Pain Radiates: No Character: Pressure/Squeezing Aggravating Factor(s): Nothing Alleviating Factor(s): Spontaneous Resolution Associated Signs and Symptoms: Positive: Chest Pain - Additional Pertinent History Primary Care Physician: [id number] - Allergy/Home Medications Allergies/Adverse Reactions: Allergies Allergy/AdvReac Type Severity Reaction Status Date / Time metformin Allergy Severe Diarrhea Verified 12/10/19 08:35 levofloxacin [From Levaquin] Allergy Nausea And Verified 12/10/19 08:35 Vomiting ondansetron Allergy Hives Verified 12/10/19 08:35 [From Zofran (as hydrochloride)] Home Medications: Home Medications Atorvastatin* [Lipitor 80 MG*] 80 mg PO QPM 05/24/17 [History Confirmed 12/20/19 ] Albuterol HFA INHALER* [Ventolin HFA Inhaler*] 1 - 2 puff INH Q6H PRN 09/15/19 [ History Confirmed 12/20/19] Aspirin 81 mg CHEW TAB* 81 mg PO DAILY 09/15/19 [History Confirmed 12/20/19] Pantoprazole TAB * [Protonix TAB*] 40 mg PO BID 09/15/19 [History Confirmed ] Insulin Lispro [Humalog Kwikpen 100 units/ml 3 ml x 5 Pens] 10 unit SUBCUT AC # 1 box 10/30/19 [Rx Confirmed 12/20/19] Methimazole TAB* [Tapazole TAB*] 5 mg PO DAILY #30 tab 10/30/19 [Rx Confirmed ] Ticagrelor* [Brilinta 90 MG*] 90 mg PO BID #60 tab 10/30/19 [Rx Confirmed ] Sucralfate TAB* [Carafate*] 1 gm PO ACHS 11/23/19 [History Confirmed 12/20/19] Umeclidinium 62.5 MDI(NF) [Incruse ELLIPTA MDI (NF)] 1 inh INH DAILY 11/23/19 [ History Confirmed 12/20/19] Carvedilol TAB* [Coreg TAB*] 12.5 mg PO BID #120 tab 11/26/19 [Rx Confirmed ] Furosemide TAB* [Lasix TAB*] 80 mg PO DAILY #37 tab 11/26/19 [Rx Confirmed 12/20] Gabapentin 300 mg PO DAILY 11/26/19 [History Confirmed 12/20/19] Losartan Potassium 25 mg PO DAILY 11/26/19 [History Confirmed 12/20/19] Acetaminophen TAB* [Tylenol TAB*] 650 mg PO Q6H PRN tab 12/11/19 [Rx Confirmed 12/20/19] Insulin Detemir [Levemir Flextouch 100 units/ml 3 ml x 5 Pens] 45 units SUBCUT BID #0 12/11/19 [Rx Confirmed 12/20/19] Loperamide CAP* [Imodium CAP*] 2 mg PO .SEE DIRECTIONS PRN cap 12/11/19 [Rx Confirmed 12/20/19] Nitro Patch/OINT Remove* 1 note PATCH OFF 2100 misc 12/11/19 [Rx Confirmed ] Nitroglycerin 0.2 MG/HR PATCH* [Nitroglycerin 5 MG PATCH*] 1 patch TRANSDERM DAILY@0900 #30 patch 12/11/19 [Rx Confirmed 12/20/19] Nitroglycerin TAB 0.4 MG* 0.4 mg SL Q5M PRN #30 tab 12/11/19 [Rx Confirmed 12/20] Empagliflozin [Jardiance] 10 mg PO DAILY 12/20/19 [History Confirmed 12/20/19] Famotidine 40 mg PO BID 12/20/19 [History Confirmed 12/20/19] PMH/Surg Hx/FS Hx/Imm Hx Endocrine/Hematology History: Reports: Hx Anticoagulant Therapy, Hx Diabetes, Hx Anemia Cardiovascular History: Reports: Hx Angina, Hx Angioplasty, Hx Congestive Heart Failure, Hx Coronary Artery Disease, Hx Hypercholesterolemia, Hx Hypertension, Hx Myocardial Infarction, Hx Peripheral Vascular Disease, Hx Valvular Heart Disease - mitral valve replacement, Other Cardiovascular Problems/Disorders - cardiomyopathy EF 40%, bipass, PVD Denies: Hx Pacemaker/ICD Respiratory History: Reports: Hx Chronic Obstructive Pulmonary Disease (COPD) GI History: Reports: Hx Gastroesophageal Reflux Disease Musculoskeletal History: Reports: Hx Arthritis - general Sensory History: Reports: Hx Contacts or Glasses Denies: Hx Hearing Aid Opthamlomology History: Reports: Hx Contacts or Glasses Neurological History: Reports: Hx Transient Ischemic Attacks (TIA) Denies: Hx Headaches, Hx Seizures Psychiatric History: Reports: Hx Anxiety, Hx Depression Denies: Hx Panic Disorder - Surgical History Surgery Procedure, Year, and Place: Complete Hysterectomy 2004; [facility]; HEART CATH- 4 CARDIAC STENTS, CABG, [facility] Infectious Disease History: No Infectious Disease History: Denies: Traveled Outside the [place] in Last 30 Days - Family History Known Family History: Positive: Cardiac Disease, Other - PE, DVT, Non- Contributory - Social History Alcohol Use: None Hx Substance Use: No Substance Use Type: Reports: None Hx Tobacco Use: Yes Smoking Status (MU): Former Smoker Type: Cigarettes Length of Time of Smoking/Using Tobacco: since she was 11 until 1 year ago Have You Smoked in the Last Year: No Review of Systems Constitutional: Negative Eyes: Negative ENT: Negative Positive: Chest Pain Respiratory: Negative Gastrointestinal: Negative Genitourinary: Negative Musculoskeletal: Negative Skin: Negative Neurological/Mental Status: Negative Psychological: Normal All Other Systems Reviewed And Are Negative: Yes Physical Exam - Summary Physical Exam Summary: Chest pain nonreproducible. Triage Information Reviewed: Yes Vital Signs On Initial Exam: Initial Vitals Temp Pulse Resp BP Pulse Ox 97.1 F 87 20 186/122 97 12/20/19 23:14 12/20/19 23:14 12/20/19 23:14 12/20/19 23:14 12/20/19 23:14 Vital Signs Reviewed: Yes Appearance: Positive: Well-Appearing Skin: Positive: Warm Head/Face: Positive: Normal Head/Face Inspection Eyes: Positive: Normal Neck: Positive: Supple Respiratory/Lung Sounds: Positive: Clear to Auscultation Cardiovascular: Positive: Normal Abdomen Description: Positive: Nontender Musculoskeletal: Positive: Normal Neurological: Positive: Normal Psychiatric: Positive: Normal AVPU Assessment: Alert - Delfino Coma Scale Best Eye Response: 4 - Spontaneous Best Motor Response: 6 - Obeys Commands Best Verbal Response: 5 - Oriented Coma Scale Total: 15 Procedures - Sedation Patient Received Moderate/Deep Sedation with Procedure: No Diagnostics - Vital Signs Vital Signs Temp Pulse Resp BP Pulse Ox 12/20/19 23:27 82 13 183/104 98 12/20/19 23:14 97.1 F 87 20 186/122 97 - Laboratory Result Diagrams: 12/21/19 00:33 12/21/19 00:33 Lab Statement: Any lab studies that have been ordered have been reviewed, and results considered in the medical decision making process. Chest Pain Course/Dx - Course Course Of Treatment: Patient complains of intermittent chest pressure 1 week. Seen here for same symptoms before on 12/10. Patient was admitted at that time with subsequent negative stress test evaluation. Ejection fraction 35% on echocardiogram. Patient discharged 12/11. Pain chest pain remains persistent. Described as intermittent, lasting 10-15 minutes at a time. Denies fever, cough , sore throat, SOB, N/3/D, abdominal pain, change in urine, change in BM. Medical history is cardiac bypass, mitral valve replacement, heart failure, DM, HTN, HDL, hypothyroid, COPD, TIA, GERD, anemia, diabetic neuropathy. Vital signs within normal limits. Creatinine 1.49 which patient baseline. Serial troponins 0.07. Labs otherwise within normal limits. Chest x-ray negative. EKG sinus rhythm, heart rate of 84, normal P axis. Same as prior. Admitted to hospitalist. - Diagnoses Provider Diagnoses: Chest pain, Elevated troponin I level Discharge ED - Sign-Out/Discharge Documenting (check all that apply): Patient Departure - Discharge Plan Condition: Stable Disposition: ADMITTED TO [facility] - Billing Disposition and Condition Condition: STABLE Disposition: Admitted to [facility]
[2019-12-21 00:39] LABS: ABS Basophils 0.1 10^3/ul (0-0.2); ABS Eosinophils 0.2 10^3/ul (0-0.6); ABS Lymphocytes 1.2 10^3/ul (1.0-4.8); ABS Monocytes 0.5 10^3/ul (0-0.8); ABS Neutrophils 8.2 10^3/ul (1.5-7.7); Eosinophil % 2.1 %; Hematocrit 35 % (35-47); Hemoglobin 11.8 g/dL (12.0-16.0); Lymphocyte % 12.1 %; Mean Corpuscular HGB Conc 33 g/dL (31-36); Mean Corpuscular Hemoglobin 28 pg (27-31); Mean Corpuscular Volume 85 fL (80-97); Mean Platelet Volume 8.3 fL (7.4-10.4); Platelet Count 315 10^3/uL (150-450); Red Blood Count 4.17 10^6 /uL (3.70-4.87); Red Cell Distribution Width 17 % (10-15); White Blood Count 10.3 10^3/uL (3.5-10.8)
[2019-12-21] MEDS ORDERED: Al Hydrox/Mg Hydrox/Simet LIQ* 30 ML UDC PO ONE (00:48)
[2019-12-21] MEDS ORDERED: Lidocaine 2% VISCOUS* 15 ML UDC PO ONE (00:48)
[2019-12-21 00:56] LABS: Albumin 4.1 g/dL (3.2-5.2); Albumin/Globulin Ratio 1.2 (1-3); BUN/Creatinine Ratio 36.2 (8-20); C Reactive Protein 8.07 mg/L (<8.01); Calcium 9.9 mg/dL (8.6-10.3); EGFR Non-African American 36.3 (>60); Globulin 3.5 g/dL (2-4); Potassium 3.8 mmol/L (3.5-5.0); Total Bilirubin 0.5 mg/dL (0.2-1.0); Total Protein 7.6 g/dL (6.4-8.9)
[2019-12-21 01:39] LABS: Troponin I 0.07 ng/mL (<0.03)
[2019-12-21] MEDS ORDERED: Aspirin 81 mg CHEW TAB* 81 MG TAB.CHEW PO ONE (01:45)
[2019-12-21] MEDS ORDERED: Nitroglycerin TAB 0.4 MG* 0.4 MG TAB SL PRN ×2 (02:55→05:14)
[2019-12-21] MEDS ORDERED: Albuterol HFA INHALER* 8 gm MDI INH PRN ×2 (02:55→05:14)
[2019-12-21] MEDS ORDERED: Calcium Carbonate CHEW TAB* 500 MG (TUMS) PO PRN (02:58)
[2019-12-21 03:47] LABS: TSH (Thyroid Stimulating Horm) 0.42 mcIU/mL (0.34-5.60)
[2019-12-21 04:13] LABS: Troponin I 0.07 ng/mL (<0.03)
[2019-12-21] MEDS ORDERED: Insulin REGULAR(*) 1 UNITS UNIT SUBCUT SCH (06:00)
[2019-12-21] MEDS: Insulin REGULAR(*) 1 UNITS UNIT SUBCUT SCH ×3 (06:08→18:45)
[2019-12-21] MEDS: Acetaminophen TAB* 325 MG PO PRN (06:20)
[2019-12-21] MEDS ORDERED: Insulin GLARGINE(*) 1 UNITS UNIT SUBCUT SCH (07:30)
[2019-12-21] MEDS ORDERED: Sucralfate TAB* 1 GM PO SCH (07:30)
[2019-12-21] MEDS: SPIRIVA Respimat* (tiotropium) 2.5 mcg/inh Inhaler INH SCH (08:34)
[2019-12-21] MEDS: Sucralfate TAB* 1 GM PO SCH ×4 (08:50→20:22)
[2019-12-21] MEDS ORDERED: Ticagrelor* 90 MG TAB PO SCH (09:00)
[2019-12-21] MEDS ORDERED: Gabapentin CAP(*) 300 MG PO SCH (09:00)
[2019-12-21] MEDS ORDERED: Umeclidinium 62.5 MDI(NF) MDI INH SCH (09:00)
[2019-12-21] MEDS ORDERED: Famotidine TAB 40 MG(NF) 40 MG TAB PO SCH (09:00)
[2019-12-21] MEDS ORDERED: Furosemide TAB* 40 MG PO SCH (09:00)
[2019-12-21] MEDS ORDERED: Methimazole TAB* 5 MG PO SCH (09:00)
[2019-12-21] MEDS ORDERED: Pantoprazole TAB * 40 MG TAB PO SCH ×2 (09:00)
[2019-12-21] MEDS ORDERED: Nitroglycerin 0.2 MG/HR PATCH* (5 MG) TRANSDERM SCH (09:00)
--- NOTE | 2019-12-21 09:33 | HP ---
CC: Dr. Garcia; Dr. Thompson; Dr. Grimaldo; Dr. Indira Ramírez * HISTORY AND PHYSICAL: DATE OF ADMISSION: 12/21/19 TIME OF EVALUATION: 2:30 p.m. PRIMARY CARE PROVIDER: Dr. Garcia. COTTON FACTOR: Dr. Thompson. FOREST FIRE EQUIPMENT OPERATOR: Dr. Grimaldo. PHOTOGRAPHIC PROCESS ATTENDANT: Dr. Hector Ramírez. CHIEF COMPLAINT: "My chest is on fire." HISTORY OF PRESENT ILLNESS: Ms. Chavez is a 54-year-old female with a past medical history of hyperthyroidism, type 2 diabetes, chronic back pain, coronary artery disease, status post PCI, CABG, mitral valve replacement, ischemic cardiomyopathy with heart failure with reduced ejection fraction, hypertension, prior history of tobacco abuse, peripheral arterial disease, COPD , CVA, multiple recent admissions for chest pain, who presented to the emergency room with complaints of chest pain once more. The patient was admitted to [facility] on 10/28/19 with complaints of chest pain after having dinner at [employer]. On that admission, the impression was that the patient had a [id number] MD and there was some concern that her uncontrolled hyperthyroidism could be precipitating her ischemia. She was discharged on 10/30/19 to continue followup as outpatient. She presented to the hospital on 11/23/19 with complaints of chest pain and shortness of breath. She states that on that admission she was noncompliant with her diuretics and she thought that was the cause of her CHF exacerbation. She was discharged on 11/26/19 with an impression of acute on chronic heart failure exacerbation, unstable angina, and respiratory failure. She was diuresed and she had complaints of epigastric and burning chest pain, relieved by Maalox, and on that admission, there was a suspicion that her chest pain could be GI in nature. The patient states that she went home and she was feeling relatively well, but on 12/10/19, she again returned to the emergency room with the same burning sensation in the center of her chest. She tried antacids, sublingual nitroglycerin with no improvement, the reason why she came to the emergency room once again. She was discharged the next day on 12/11/19 and she was started on nitroglycerin patch. The patient states that she continues to follow with her PCP and Dr. Grimaldo and that she has been on pantoprazole and sucralfate for her "stomach." She states that last week she had a quiche, and approximately 4 to 5 minutes later, she felt the same chest pain that "feels like a fire" in my chest radiating to my back. She took her usual medications including pantoprazole and sucralfate, and as she had no improvement, she also took some spin-[id number]-[id number] antacid and the pain subsided a little. She states that she contacted Dr. Thompson's office and later on also contacted her PCP's office, who added famotidine to her regimen. The patient states that she has been compliant with all her medications, "I learnt my lesson after I had CHF because I did not take my pills." She states that today once again she had dinner and developed this severe retrosternal chest pain described as burning associated with some nausea , but no vomiting. The patient states that she took her usual medications, but came to the emergency room because the pain was severe. She denies shortness of breath, palpitations, dizziness, lightheadedness, vomiting, diarrhea, or urinary complaints. PAST MEDICAL HISTORY: 1. Hyperthyroidism. The patient's last TSH was 0.42. She is on methimazole and she actually had a thyroid biopsy scheduled for today that will need to be rescheduled after discharge. 2. Type 2 diabetes with diabetic neuropathy and diabetic nephropathy. Her last hemoglobin A1c was 12.2 in October. 3. Chronic back pain. 4. Coronary artery disease, status post PCI and CABG. 5. Status post mitral valve replacement (bioprosthetic in July 2017). 6. Ischemic cardiomyopathy. 7. Reduced ejection fraction heart failure. 8. Hypertension. 9. Prior history of tobacco abuse. 10. Peripheral arterial disease. 11. COPD. 12. History of TIA. 13. Hyperlipidemia. PAST SURGICAL HISTORY: 1. Status post CABG and mitral valve replacement. 2. Status post hysterectomy. 3. Status post . 4. Status post cholecystectomy. 5. Status post cataract removal. MEDICATIONS: 1. Acetaminophen 650 mg p.o. q.6 hours p.r.n. pain or fever. 2. Albuterol HFA 1 to 2 puffs inhaled q.6 hours p.r.n. shortness of breath. 3. Aspirin 81 mg p.o. daily. 4. Atorvastatin 80 mg p.o. at bedtime. 5. Carvedilol 12.5 mg p.o. b.i.d. 6. Jardiance 10 mg p.o. daily. 7. Famotidine 40 mg p.o. b.i.d. 8. Furosemide 80 mg p.o. daily. 9. Gabapentin 300 mg p.o. daily. 10. Insulin detemir 45 units subcutaneously b.i.d. 11. Lispro 10 units subcutaneously before meals. 12. Loperamide 2 mg p.o. with every loose bowel movement as needed. 13. Losartan 25 mg p.o. daily. 14. Methimazole 5 mg p.o. daily. 15. Nitro patch 0.2 mg an hour topical daily, remove at bedtime. 16. Nitroglycerin 0.4 mg sublingual q.4 hours p.r.n. chest pain. 17. Pantoprazole 40 mg p.o. b.i.d. 18. Carafate 1 g p.o. a.c. and h.s. 19. Brilinta 90 mg p.o. b.i.d. 20. Incruse Ellipta 1 puff inhaled daily. ALLERGIES: METFORMIN, LEVAQUIN, and ZOFRAN. FAMILY HISTORY: The patient's father had a history of diabetes, rectal cancer, coronary artery disease. Her mother had a history of coronary artery disease, alcoholism, and of lung cancer. SOCIAL HISTORY: The patient has greater than 100-pack year history of smoking. She quit in 2017 when she had her heart surgery. There is no history of alcohol or drug use. 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 She is . Surrogate decision maker is her , Bailee Chavez, [phone]. REVIEW OF SYSTEMS: A 14-point review of systems were performed and all the pertinent negatives and positives are in the HPI. PHYSICAL EXAMINATION GENERAL: The patient is a pleasant middle-aged lady, appears older than stated age, sitting up in bed, not in acute distress. VITAL SIGNS: Temperature 97.1, heart rate is 79, respiratory rate is 18, oxygen saturation is 100% on room air, blood pressure is 143/81. CHEST: Breath sounds bilaterally with no added sounds. CARDIOVASCULAR: Normal S1 and S2. Regular rate and rhythm. ABDOMEN: Soft, nontender, nondistended. Bowel sounds are present. EXTREMITIES: No edema. NEUROLOGIC: She is alert and oriented x3. Face is symmetric. She is able to move all 4 extremities. Speech is clear. Power is 5/5 in all 4 extremities. DIAGNOSTIC STUDIES/LAB DATA: The patient had a CBC that showed WBC of 10.3, hemoglobin of 11.8, hematocrit of 35, platelets of 316 with 80% neutrophils. Chemistry showed sodium of 139, potassium 3.8, chloride of 105, bicarbonate of 23, BUN of 54, creatinine of 1.49, glucose of 101, lactic acid is 1.9, calcium is 9.9. Total bilirubin is 0.5, AST 11, ALT 12, alkaline phosphatase is 155. Troponin is 0.07. CRP is 8. TSH is 0.42. EKG done on 12/20/19 at 11:15 p.m. shows sinus rhythm at 84 beats per minute with right bundle-branch block. No acute ischemic changes. No significant change when compared to her prior EKG from 12/11/19. The patient had a transthoracic echocardiogram on 10/28/19 that showed an ejection fraction of 40% to 45% with hypokinesis of the basal mid-inferolateral myocardium. No significant change from October 2018. A thyroid ultrasound done on 10/29/19 showed 3 low-suspicion nodules, of which the larger one is 1.5 cm. CTA of the chest on 11/23/19 that was negative for PE, but there was incidental finding of hilar and mediastinal lymphadenopathy. A stress test that was done on 12/11/19 that showed no evidence for infarct or ischemia and low cardiac left ventricular ejection fraction calculated to be 35% . ASSESSMENT AND PLAN: Ms. Chavez is a 54-year-old female with past medical history of hyperthyroidism, type 2 diabetes with diabetic neuropathy and nephropathy, coronary artery disease, status post percutaneous coronary intervention and coronary artery bypass grafting, status post mitral valve replacement (biological), prior history of tobacco abuse, chronic obstructive pulmonary disease, peripheral vascular disease, who presents to the emergency room with complaints of chest pain. 1. Chest pain. The patient does have a significant cardiac history, but considering the data that we have so far, I believe her episodes of chest pain are likely gastrointestinal in nature. She does have minimal troponin elevation at 0.07 at this time and we will trend her enzymes, but she had a negative stress test earlier this month and that is reassuring. With the way she describes her pain, I believe this could be esophageal in nature, but she is already on pretty significant therapy with PPI and H2 maria victoria, Carafate as well as laxn-ejf-wvvrkan antacids. The patient will be admitted as observation to the telemetry floor. We will check serial troponins and request a GI consultation. I believe the patient likely requires an upper endoscopy as I am concerned that she may have esophagitis of a different etiology, not necessarily associated with gastroesophageal reflux disease. She could have avelina esophagitis or even a viral process or something else that would explain her significant burning chest pain with negative workup so far. In the meantime, I will continue her medications. 2. Type 2 diabetes. The patient will be n.p.o. for now, so I will cut her insulin dosing half and continue to monitor her fingersticks. 3. Hyperthyroidism. It appears to be controlled at this time with a normal TSH. The patient was scheduled to have an outpatient thyroid biopsy today and that will need to be rescheduled. 4. Mediastinal adenopathy. This was an incidental finding on a CTA of the chest in October, but considering her history of tobacco abuse, the patient is at risk for malignancy, so she needs to follow up with her PCP and Dr. Ahumada as an outpatient for possible biopsy. 5. Coronary artery disease. The patient will be continued on aspirin, statin, beta-maria victoria, and Brilinta. 6. Heart failure with reduced ejection fraction. She appears to be stable at this time. She will be continued on carvedilol, furosemide, and losartan. 7. DVT prophylaxis. The patient has a score of 2 on the DVT prophylaxis Risk Assessment Guide and she will be started on SCDs. 8. Code status is full. TIME SPENT: Approximately 75 minutes was spent with the patient interview, medical records review, physical examination to complete this admission, more than half of this time was spent [id number] with the patient in coordination of care. [id number]/[facility] #: [id number] [place]ER
[2019-12-21] MEDS: Insulin GLARGINE(*) 1 UNITS UNIT SUBCUT SCH ×2 (10:20→20:22)
[2019-12-21] MEDS: Famotidine TAB* 20 MG PO SCH (10:30)
[2019-12-21] MEDS: Aspirin 81 mg CHEW TAB* 81 MG TAB.CHEW PO SCH (10:30)
[2019-12-21] MEDS: Carvedilol TAB* 6.25 MG PO SCH ×2 (10:30→22:03)
[2019-12-21] MEDS: Losartan TAB* 25 MG PO SCH (10:31)
[2019-12-21] MEDS: Furosemide TAB* 40 MG PO SCH (10:31)
[2019-12-21] MEDS: Nitroglycerin 0.2 MG/HR PATCH* (5 MG) TRANSDERM SCH (10:32)
[2019-12-21] MEDS: Ticagrelor* 90 MG TAB PO SCH ×2 (10:32→20:22)
[2019-12-21] MEDS ORDERED: Mirtazapine TAB* 15 MG ONE (11:44)
[2019-12-21] MEDS: Methimazole TAB* 5 MG PO SCH (11:53)
[2019-12-21] MEDS ORDERED: Ondansetron INJ* 2 MG/ML VIAL IV PRN (12:10)
[2019-12-21] MEDS ORDERED: PROCHLORPERAZINE INJ 5 MG/ML 2 ML VIAL IV PRN (12:12)
--- NOTE | 2019-12-21 13:50 | PN ---
Subjective Date of Service: 12/21/19 Interval History: Pt c/o many months of substernal burning approx 1 hr after she eats. Objective Active Medications: Acetaminophen (Tylenol Tab*) 650 mg PO Q6H PRN PRN Reason: MILD PAIN or TEMP > 100.4 Last Admin: 12/21/19 06:20 Dose: 650 mg Albuterol (Ventolin Hfa Inhaler*) 2 puff INH Q6H PRN PRN Reason: SHORTNESS OF BREATH Aspirin (Aspirin 81 Mg Chew Tab*) 81 mg PO DAILY [facility] Last Admin: 12/21/19 10:30 Dose: 81 mg Atorvastatin Calcium (Lipitor*) 80 mg PO QPM [facility] Calcium Carbonate (Tums*) 500 mg PO Q4H PRN PRN Reason: HEARTBURN Last Admin: 12/21/19 06:21 Dose: 500 mg Carvedilol (Coreg Tab*) 12.5 mg PO BID [facility] Last Admin: 12/21/19 10:30 Dose: 12.5 mg Famotidine (Pepcid Tab*) 20 mg PO DAILY [facility] Last Admin: 12/21/19 10:30 Dose: 20 mg Furosemide (Lasix Tab*) 40 mg PO DAILY [facility] Last Admin: 12/21/19 10:31 Dose: 40 mg Gabapentin (Neurontin Cap(*)) 300 mg PO DAILY [facility] Last Admin: 12/21/19 10:31 Dose: 300 mg Insulin Glargine (Lantus(*)) 20 units SUBCUT Q12H [facility] Last Admin: 12/21/19 10:20 Dose: 20 unit Insulin Human Regular (Insulin Regular(*)) 0 units SUBCUT Q6HR [facility]; Protocol Last Admin: 12/21/19 12:18 Dose: Not Given Losartan Potassium (Cozaar Tab*) 25 mg PO DAILY [facility] Last Admin: 12/21/19 10:31 Dose: 25 mg Methimazole (Tapazole Tab*) 5 mg PO DAILY [facility] Last Admin: 12/21/19 11:53 Dose: 5 mg Nitroglycerin (Nitroglycerin 5 Mg Patch*) 1 patch TRANSDERM DAILY@0900 [facility] Last Admin: 12/21/19 10:32 Dose: 1 patch Nitroglycerin (Nitroglycerin Tab 0.4 Mg*) 0.4 mg SL Q5M PRN PRN Reason: ANGINA Pantoprazole Sodium (Protonix Tab*) 40 mg PO BID [facility] Last Admin: 12/21/19 10:32 Dose: 40 mg Pharmacy Profile Note (Nitro Patch/Oint Remove*) 1 note PATCH OFF 2099 [facility] Prochlorperazine Edisylate (Compazine Inj*) 5 mg IV Q6H PRN PRN Reason: NAUSEA/VOMITING Sucralfate (Carafate*) 1 gm PO ACHS [facility] Last Admin: 12/21/19 12:01 Dose: Not Given Ticagrelor (Brilinta*) 90 mg PO BID [facility] Last Admin: 12/21/19 10:32 Dose: 90 mg Tiotropium [employer] (Spiriva Respimat 2.5 Mcg) 2 puff INH DAILY [facility] Last Admin: 12/21/19 08:34 Dose: 2 puff Vital Signs - 8 hr 12/21/19 12/21/19 12/21/19 08:35 09:54 10:31 Temperature 96.8 F Pulse Rate 76 76 Respiratory 15 16 16 Rate Blood Pressure 127/69 (mmHg) O2 Sat by Pulse 98 98 Oximetry Oxygen Devices in Use Now: None Appearance: 54 yo f in nAD, aAOx3 Eyes: No Scleral Icterus, PERRLA Ears/Nose/Mouth/Throat: NL Teeth, Lips, Gums, Mucous Membranes Moist Neck: NL Appearance and Movements; NL JVP, Trachea Midline Respiratory: Symmetrical Chest Expansion and Respiratory Effort, Clear to Auscultation Cardiovascular: NL Sounds; No Murmurs; No JVD, RRR Abdominal: NL Sounds; No Tenderness; No Distention Lymphatic: No Cervical Adenopathy Extremities: No Edema Skin: No Rash or Ulcers, No Nodules or Sclerosis Neurological: Alert and Oriented x 3, NL Muscle Strength and Tone Result Diagrams: 12/21/19 00:33 12/21/19 00:33 Assess/Plan/Problems-Billing Assessment: Ms. Chavez is a 54 yo F with PMH of CAD s/p stent and CABG, DM2, CHF with EF 45%, HTN, HLD, hyperthyroidism, COPD, TIA, PVD, GERD, anemia, mitral valve replacement; who presented to the ED with c/o recurrent CP 1 hr after eating - Patient Problems (1) GERD (gastroesophageal reflux disease) Comment: Pt is on Carafate, Pepcid, Protonix ans still c/l substernal burning every time 1 hr after she eats. For EGD today (2) CAD (coronary artery disease) Comment: - Trops mildly elevated consistent with prior - Cardiac cath Oct 2018 with unchanged coronary artery disease - Stress test Aug 2019 consistent with known occlusions, stress lalo 11/2019 with no reversible ischemia - Continue aspirin, Brilinta, carvedilol, atorvastatin, Imdur (3) COPD (chronic obstructive pulmonary disease) Comment: - Not in exacerbation - Continue Duonebs PRN (4) Chronic systolic CHF (congestive heart failure) Comment: No evidence of exacerbation. EF 40-45%. - cont home furosemide - continue losartan, carvedilol (5) Creatinine elevation Comment: Elevation has been progressive, likely CKD stage 3 from uncontrolled DM2. At baseline now. (6) Hyperthyroidism Comment: - Follows with Dr. Ramírez - Continue methimazole (7) Type II diabetes mellitus Comment: - HgbA1c 12.2% 10/28/2019 - Continue Lantus, Lispro SS (8) DVT prophylaxis Comment: HSQ
[2019-12-21] MEDS ORDERED: fentaNYL* 50 MCG/ML 2 ML VIAL (100 MCG VIAL) ONE (14:34)
[2019-12-21] MEDS ORDERED: Midazolam* 1 MG/ML 10 ML VIAL (10 MG) ONE (14:34)
--- NOTE | 2019-12-21 15:05 | PN ---
Progress Note - Progress Note Date of Service: 12/21/19 Note: PROCEDURE note: EGD 25 mg IV fent 5 mg IV versed E---->no EE, +salmon pink mucosa, bx for BE, small HH G--->mild gastritis, no ulcer, bx for hp D---->normal evidence of possible chronic acid damage, nothing acute; pt maxxed out on GERD therapy....BID PPI, BID H2 maria victoria, and Carafate will change to a different PPI; will need a few weeks to determine any difference Vick Thompson MD [facility]
[2019-12-21] MEDS: NS 0.9% 250 ML* 250 ML IV ONE ×2 (16:21→16:25)
[2019-12-21] MEDS: Heparin VIAL(*) 5000 UNITS/ML VIAL (FIVE THOUSAND) SUBCUT SCH ×2 (16:42→22:00)
[2019-12-21] MEDS ORDERED: Atorvastatin* 80 MG TAB PO SCH (18:00)
[2019-12-21] MEDS: Gabapentin CAP(*) 300 MG PO SCH (20:22)
[2019-12-21] MEDS ORDERED: Nitro Patch/OINT Remove PATCH OFF SCH ×2 (21:00)
[2019-12-22] MEDS: Insulin REGULAR(*) 1 UNITS UNIT SUBCUT SCH ×2 (00:06→07:27)
[2019-12-22] MEDS: Acetaminophen TAB* 325 MG PO PRN (01:09)
--- NOTE | 2019-12-22 01:58 | PRO ---
DATE OF PROCEDURE: 12/21/19 - ROOM #445 PROCEDURE: EGD. INDICATION: Noncardiac chest pain. REFERRING PHYSICIAN: Dr. Puentes. MEDICATIONS GIVEN: 25 mcg IV fentanyl, 5 mg IV Versed. DESCRIPTION OF PROCEDURE: After the EGD procedure, including the risks, benefits, and alternatives, not limited to perforation, surgery, and/or were explained to Ms. Chavez, written consent was then obtained, IV medication was given, and a bite-block was placed between the teeth. An Olympus gastroscope was then inserted into the patient's mouth, advanced down the esophagus, into the stomach, into the distal duodenum. In the esophagus, at the GE junction, the Z-line was intact except for 1 very small break in the mucosa. This was salmon-pink mucosa. Biopsies were obtained. The scope was advanced through a very small hiatal hernia into the body of the stomach. Retroflex view was unremarkable. Forward view also was unremarkable. An H. pylori biopsy was obtained. Scope was advanced through a widely patent pylorus , into the duodenal bulb, into the distal duodenum, both of which were unremarkable. Scope was withdrawn from the patient. She tolerated the procedure well and was returned to her hospital room in stable condition. IMPRESSION: 1. Complete upper endoscopy into the distal duodenum with biopsies. 2. Mild chronic acid damage, status post biopsy for Nava's. 3. Small hiatal hernia. 4. Unfortunately, she is maxed out on acid suppression therapy. She is on pantoprazole twice a day, an H2 maria victoria twice a day, and Carafate. At this point, I think my only option would be to switch her to a different proton pump inhibitor from the pantoprazole. This can be accomplished as an outpatient. She should try this for a few weeks and then call me with an update. [id number]/[facility] #: [id number] [facility]
[2019-12-22] MEDS: Heparin VIAL(*) 5000 UNITS/ML VIAL (FIVE THOUSAND) SUBCUT SCH (07:28)
[2019-12-22 07:58] VITALS: BP 123/60
[2019-12-22] MEDS: Ticagrelor* 90 MG TAB PO SCH (08:37)
[2019-12-22] MEDS: Carvedilol TAB* 6.25 MG PO SCH (08:37)
[2019-12-22] MEDS: Gabapentin CAP(*) 300 MG PO SCH (08:37)
[2019-12-22] MEDS: Aspirin 81 mg CHEW TAB* 81 MG TAB.CHEW PO SCH (08:38)
[2019-12-22] MEDS: Losartan TAB* 25 MG PO SCH (08:38)
[2019-12-22] MEDS: Furosemide TAB* 40 MG PO SCH (08:38)
[2019-12-22] MEDS: Famotidine TAB* 20 MG PO SCH (08:38)
[2019-12-22] MEDS: Methimazole TAB* 5 MG PO SCH (08:41)
[2019-12-22] MEDS: Nitroglycerin 0.2 MG/HR PATCH* (5 MG) TRANSDERM SCH (08:42)
[2019-12-22] MEDS: Sucralfate TAB* 1 GM PO SCH (08:45)
[2019-12-22] MEDS ORDERED: Pantoprazole TAB * 40 MG TAB PO SCH (09:00)
[2019-12-22] MEDS: Insulin GLARGINE(*) 1 UNITS UNIT SUBCUT SCH (09:50)
[2019-12-22] MEDS: SPIRIVA Respimat* (tiotropium) 2.5 mcg/inh Inhaler INH SCH (10:27)
--- NOTE | 2019-12-22 14:05 | DS ---
CC: Dr. Garcia; Dr. Thompson; Dr. Tomas Grimaldo, Cardiology; Dr. Ramírez, Endocrinology * DISCHARGE SUMMARY: DATE OF ADMISSION: 12/21/19 DATE OF DISCHARGE: 12/22/19 PRIMARY CARE PROVIDER: Dr. Garcia. DISPOSITION AT DISCHARGE: Home. CONDITION ON DISCHARGE: Stable. DISCHARGE DIAGNOSIS: Chest pain of unknown etiology, the differential includes neuropathy versus dyspepsia related issues in patient who had recent cardiac workup that was unremarkable. SECONDARY DIAGNOSES: 1. Recurrent admissions for chest pain in patient who has chronically positive troponin with cardiac catheterization that showed unchanged vasculature in October 2018 and 2 stress tests in the past 6 months that were unremarkable. 2. Hyperthyroidism, under the care of Dr. Ramírez. 3. Diabetes type 2, diabetic neuropathy and nephropathy. 4. Chronic back pain. 5. Coronary artery disease, status post PCI and coronary artery bypass grafting. 6. Status post bioprosthetic mitral valve replacement. 7. Ischemic cardiomyopathy with EF of 45%. 8. Hypertension. 9. Peripheral arterial disease. 10. Chronic obstructive pulmonary disease, not on oxygen. 11. History of transient ischemic attack. 12. Hyperlipidemia. MEDICATIONS AT DISCHARGE: Mostly unchanged from admission apart from 2 changes and those include increase in gabapentin from 300 mg daily to 300 mg b.i.d. and switch from Protonix to Nexium 40 mg b.i.d. and the remaining medications are as follows: 1. Albuterol inhaler on a p.r.n. basis. 2. Aspirin 81 mg daily. 3. Lipitor 80 mg daily. 4. Jardiance 10 mg daily. 5. Pepcid 40 mg b.i.d. 6. Losartan 25 mg daily. 7. Carafate 1 g with each meal and at night. 8. Incruse Ellipta 62.5 one inhalation daily. 9. Tylenol on a p.r.n. basis. 10. Coreg 12.5 mg b.i.d. 11. Nexium 40 mg b.i.d. 12. Lasix 80 mg a day. 13. Neurontin 300 mg b.i.d. 14. Insulin Levemir 45 units b.i.d. 15. Insulin lispro 10 units with each meal. 16. Nitro patch 0.2 mg per hour, apply daily. 17. Methimazole 5 mg a day. 18. Imodium 2 mg on a p.r.n. basis. 19. Nitroglycerin sublingually on a p.r.n. basis. 20. Brilinta 90 mg b.i.d. PROCEDURES PERFORMED DURING THE HOSPITAL STAY: Included upper endoscopy with Dr. Thompson with procedure report documented on 12/21/19, impression: " Complete upper endoscopy to distal duodenum with biopsies. Mild chronic acid damage, status post biopsy for Nava's. Small hiatal hernia. Unfortunately, she is maximized on acid suppression therapy. She is on pantoprazole twice a day and H2 maria victoria twice a day and Carafate. At this point, I think my only option would be to switch her to a different proton pump inhibitor from pantoprazole. This can be accomplished as an outpatient. She should try this for a few weeks and then call me with an update." DIAGNOSTIC STUDIES/LAB DATA: Laboratory data during the hospital stay included : On 12/21/19, sodium of 139, potassium 3.8, chloride 105, carbon dioxide 23, BUN 54, creatinine 1.45. The patient's troponin has continued to be 0.07 throughout the hospital stay. TSH of 0.42. Portable chest x-ray at admission, impression: "Postsurgical changes. No evidence of acute findings." HOSPITALIZATION COURSE: April Chavez is a 54-year-old female who has history of coronary artery bypass grafting, PCI, ischemic cardiomyopathy, mild CHF, diabetic with diabetic nephropathy, who has had many admissions and ER visits for chest pain. The patient describes it as substernal burning that occurs approximately an hour after she eats. She has history of cholecystectomy remotely. She had a cardiac stress test documented on 12/10/19 that showed no evidence for infarct or an ischemia. She had a cardiac catheterization in October 2018 that showed no change in her vasculature from the prior bypass grafting and stents. After her admission for chest pain rule out on 12/01/19, she came back to the hospital on the 12/21/19 complaining of the same burning that is becoming more severe. At this point, the admitting provider, Dr. Jennings thought that it was likely GI related because of her symptoms occurring an hour after she eats every time. At this point, the patient was observed on telemetry monitored bed because her troponins are usually mildly elevated and she underwent an upper endoscopy with Dr. Thompson that did not show any marked changes apart from some mild inflammation. Dr. Thompson recommended switching the patient from Protonix to Nexium. We also decided to increase her gabapentin from 300 mg once a day to 300 mg twice a day. Otherwise, she was at her physical baseline. She had no shortness of breath and her chronic CHF was well controlled. After the upper endoscopy, she stayed overnight since she recovered from the procedure late in the afternoon and she is ready to go home today. At this point, we unfortunately are unable to determine the etiology of the patient's chest pain, but it looks like multiple cardiac evaluations noted that it is unlikely to be related to cardiac issues and upper endoscopy failed to show any marked abnormalities that could indicate that is the problem. The patient is recommended to follow up with his primary care provider in [address] Thompson to call for an appointment in 4 to 6 weeks. PHYSICAL EXAMINATION: At the time of discharge, blood pressure of 143/60, heart rate of 76 and regular, respiratory rate 18, oxygen saturation 96% on room air, temperature 96.4. General: The patient is a pleasant 54-year-old female, who is in no acute distress. The patient is alert and oriented x3. HEENT: Head: Atraumatic, normocephalic. Eyes: Pupils are equal, reactive to light and accommodation. Oropharynx is clear. Mucosa moist. Neck: Supple. No JVD. No bruits bilaterally. Cardiovascular: Regular rate and rhythm. No murmur. Respiratory: Clear to auscultation bilaterally. Abdomen: Soft, nontender. Bowel sounds are present in all 4 quadrants. Extremities: There is no edema. Pulses are +2 bilaterally. No clubbing or cyanosis. Neuro Evaluation: Speech is clear. Cranial nerves II through XII grossly intact. Motor strength is 5/5 bilaterally. Please note that this is a short summary of the patient's hospitalization. Please refer to further medical records for details. TIME SPENT: Approximately 35 minutes was spent on the patient's discharge. [id number]/[facility] #: [id number] MTDD
--- NOTE | 2019-12-22 15:04 | CONS ---
CC: Dr. Grimaldo; Dr. Garcia; Dr. Hector Ramírez * CONSULTATION REPORT: DATE OF CONSULT: 12/21/19 REQUESTING PHYSICIAN: Dr. Puentes. INDICATION: Noncardiac chest pain. NARRATIVE: Ms. Chavez is a pleasant 54-year-old female who I had seen a month or so ago for a positive Cologuard. She was scheduled for a colonoscopy in a few months from now. 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 No cardiology etiology was discovered and they feel it may be secondary to acid reflux. She does have a burning sensation in the middle chest. She denies any dysphagia. No nausea, no vomiting. Certain foods seem to ignite this. She has been on pantoprazole twice a day in addition to famotidine twice a day and Carafate, none of this unfortunately is touching her symptoms. She developed pain after dinner last night and then presented to the emergency room again. PAST MEDICAL HISTORY: Significant for coronary artery disease, type 2 diabetes , hyperthyroidism, mitral valve replacement, cardiomyopathy, hypertension, peripheral artery disease, COPD, TIA, hyperlipidemia. PAST SURGICAL HISTORY: Includes CABG, hysterectomy, , cholecystectomy , cataracts. MEDICATIONS UPON ADMISSION: Include: 1. Albuterol. 2. Aspirin. 3. Atorvastatin. 4. Carvedilol. 5. Jardiance. 6. Famotidine twice a day. 7. Furosemide. 8. Gabapentin. 9. Insulin lispro. 10. Loperamide. 11. Losartan. 12. Nitro patch. 13. Pantoprazole twice a day. 14. Carafate 4 times a day. 15. Brilinta. ALLERGIES: To METFORMIN, LEVAQUIN, and ZOFRAN. FAMILY HISTORY: Diabetes, coronary artery disease, lung cancer. SOCIAL HISTORY: She has a very heavy smoking history. She quit a couple years ago. No alcohol use. REVIEW OF SYSTEMS: Twelve systems were reviewed and other than that mentioned in the HPI were unremarkable. PHYSICAL EXAM: Temperature is 96.8, blood pressure is 127/69, pulse of 76, respiratory rate of 16, O2 sat is 98%. General: Chronically ill-appearing female, who appears older than her stated age, alert, oriented, pleasant, fluent. HEENT: Mucous membranes are moist without lesions, ulcers, or exudate. Neck is supple. Trachea is midline. Head is normocephalic, atraumatic. Heart : Regular rate and rhythm. Lungs: Clear to auscultation. Abdomen: Positive bowel sounds. Soft, nontender, nondistended. No hepatosplenomegaly, masses, rebound, or guarding. Skin is warm and dry. LABORATORY DATA: Of note, white count is 10.3, hemoglobin is 11.8, platelets of 315. ASSESSMENT AND PLAN: This is a pleasant 54-year-old female with noncardiac chest pain. I agree she needs an endoscopy for further evaluation for her gastroesophageal reflux disease. Unfortunately, she is maximized on gastroesophageal reflux disease therapy. She is on a good PPI twice a day in addition to an H2 maria victoria twice a day and Carafate. Really my only other options would be to switch to another PPI and/or try low-dose amitriptyline 25 mg at night for nonulcerative dyspepsia. I will plan on performing an EGD later on today. [id number]/[facility] #: [id number] [facility]
== END 2019-12-22 11:30 | disposition home or self-care (01) ==
LOC: ED 23:09 → MEDTELE 12-21 02:42 → ED 12-21 04:07
PROVIDERS: ADMIT Internal Medicine; ATTEND Internal Medicine
DX: R07.9 Chest pain, unspecified (principal); E05.90 Thyrotoxicosis, unspecified without thyrotoxic crisis or storm; E11.9 Type 2 diabetes mellitus without complications; Z79.4 Long term (current) use of insulin; M54.9 Dorsalgia, unspecified; G89.29 Other chronic pain; I25.10 Atherosclerotic heart disease of native coronary artery without angina pectoris; Z95.1 Presence of aortocoronary bypass graft; Z95.2 Presence of prosthetic heart valve; I25.5 Ischemic cardiomyopathy; I10 Essential (primary) hypertension; I73.9 Peripheral vascular disease, unspecified; J44.9 Chronic obstructive pulmonary disease, unspecified; Z86.73 Personal history of transient ischemic attack (TIA), and cerebral infarction without residual deficits; E78.5 Hyperlipidemia, unspecified; Z79.82 Long term (current) use of aspirin; Z79.899 Other long term (current) drug therapy
CPT/HCPCS: 36415; 71046; 80053; 82947; 83605; 83690; 84443; 84484; 85025; 86140; 87077; 88305; 93005; 94640; 99156; 99157; 99284; A9270-GY; G0378; J1644; J2250; J3010; J3535

== ENCOUNTER 2020-01-23 00:20 | Emergency (ER) | payer MEDICARE ==
--- NOTE | 2020-01-23 00:24 | ED ---
HPI Chest Pain - HPI Summary HPI Summary: 54 year old F presenting to [facility] with a chief complaint of intermittent central chest pain since 1 week ago and shortness of breath since 22:30 last night. Patient reports a runny nose. The patient rates the pain 4/10 in severity. Symptoms aggravated by nothing. Symptoms alleviated by nothing. Patient reports that her chest pain varies in location. She states that one of her medications recently changed. Patient denies any fever or cough. Medication list reviewed. Allergy list reviewed. - History of Current Complaint Time Seen by Provider: 01/23/20 00:22 Hx Obtained From: Patient Onset/Duration: Started Days Ago Timing: Intermittent Current Severity: Moderate Pain Intensity: 4 Pain Scale Used: 0-10 Numeric Chest Pain Location: Mid Sternal Aggravating Factor(s): Nothing Alleviating Factor(s): Nothing Associated Signs and Symptoms: Negative: Fever, Cough - Additional Pertinent History Primary Care Physician: ЕЛЕНА - Allergy/Home Medications Allergies/Adverse Reactions: Allergies Allergy/AdvReac Type Severity Reaction Status Date / Time metformin Allergy Severe Diarrhea Verified 01/23/20 00:24 levofloxacin [From Levaquin] Allergy Nausea And Verified 01/23/20 00:24 Vomiting ondansetron Allergy Hives Verified 01/23/20 00:24 [From Zofran (as hydrochloride)] Home Medications: Home Medications Atorvastatin* [Lipitor 80 MG*] 80 mg PO QPM 05/24/17 [History Confirmed 01/23/20 ] Albuterol HFA INHALER* [Ventolin HFA Inhaler*] 1 - 2 puff INH Q6H PRN 09/15/19 [ History Confirmed 01/23/20] Aspirin 81 mg CHEW TAB* 81 mg PO DAILY 09/15/19 [History Confirmed 01/23/20] Insulin Lispro [Humalog Kwikpen 100 units/ml 3 ml x 5 Pens] 10 unit SUBCUT AC # 1 box 10/30/19 [Rx Confirmed 01/23/20] Methimazole TAB* [Tapazole TAB*] 5 mg PO DAILY #30 tab 10/30/19 [Rx Confirmed ] Ticagrelor* [Brilinta 90 MG*] 90 mg PO BID #60 tab 10/30/19 [Rx Confirmed ] Sucralfate TAB* [Carafate*] 1 gm PO ACHS 11/23/19 [History Confirmed 01/23/20] Umeclidinium 62.5 MDI(NF) [Incruse ELLIPTA MDI (NF)] 1 inh INH DAILY 11/23/19 [ History Confirmed 01/23/20] Carvedilol TAB* [Coreg TAB*] 12.5 mg PO BID #120 tab 11/26/19 [Rx Confirmed ] Furosemide TAB* [Lasix TAB*] 80 mg PO DAILY #37 tab 11/26/19 [Rx Confirmed 01/22] Losartan Potassium 25 mg PO DAILY 11/26/19 [History Confirmed 01/23/20] Acetaminophen TAB* [Tylenol TAB*] 650 mg PO Q6H PRN tab 12/11/19 [Rx Confirmed 01/23/20] Insulin Detemir [Levemir Flextouch 100 units/ml 3 ml x 5 Pens] 45 units SUBCUT BID #0 12/11/19 [Rx Confirmed 01/23/20] Loperamide CAP* [Imodium CAP*] 2 mg PO .SEE DIRECTIONS PRN cap 12/11/19 [Rx Confirmed 01/23/20] Nitro Patch/OINT Remove* 1 note PATCH OFF 2100 misc 12/11/19 [Rx Confirmed ] Nitroglycerin 0.2 MG/HR PATCH* [Nitroglycerin 5 MG PATCH*] 1 patch TRANSDERM DAILY@0900 #30 patch 12/11/19 [Rx Confirmed 01/23/20] Nitroglycerin TAB 0.4 MG* 0.4 mg SL Q5M PRN #30 tab 12/11/19 [Rx Confirmed 01/22] Empagliflozin [Jardiance] 10 mg PO DAILY 12/20/19 [History Confirmed 01/23/20] Famotidine 40 mg PO BID 12/20/19 [History Confirmed 01/23/20] Baclofen TAB* [Lioresal TAB*] 5 mg PO TID PRN 01/23/20 [History Confirmed ] Gabapentin CAP(*) [Neurontin 300 CAP(*)] 300 mg PO TID 01/23/20 [History Confirmed 01/23/20] PMH/Surg Hx/FS Hx/Imm Hx Endocrine/Hematology History: Reports: Hx Anticoagulant Therapy, Hx Diabetes, Hx Anemia Cardiovascular History: Reports: Hx Angina, Hx Angioplasty, Hx Congestive Heart Failure, Hx Coronary Artery Disease, Hx Hypercholesterolemia, Hx Hypertension, Hx Myocardial Infarction, Hx Peripheral Vascular Disease, Hx Valvular Heart Disease - mitral valve replacement, Other Cardiovascular Problems/Disorders - cardiomyopathy EF 40%, bipass, PVD Denies: Hx Pacemaker/ICD Respiratory History: Reports: Hx Chronic Obstructive Pulmonary Disease (COPD) Denies: Hx Asthma GI History: Reports: Hx Gastroesophageal Reflux Disease Musculoskeletal History: Reports: Hx Arthritis - general Sensory History: Reports: Hx Cataracts - sx removed, Hx Contacts or Glasses Denies: Hx Hearing Aid Opthamlomology History: Reports: Hx Cataracts - sx removed, Hx Contacts or Glasses Neurological History: Reports: Hx Transient Ischemic Attacks (TIA) Denies: Hx Headaches, Hx Seizures Psychiatric History: Reports: Hx Anxiety, Hx Depression Denies: Hx Panic Disorder - Surgical History Surgery Procedure, Year, and Place: Complete Hysterectomy 2004; [facility]; HEART CATH- 4 CARDIAC STENTS, CABG, [facility] - Family History Known Family History: Positive: Cardiac Disease, Other - PE, DVT - Social History Alcohol Use: None Hx Substance Use: No Substance Use Type: Reports: None Hx Tobacco Use: Yes Smoking Status (MU): Former Smoker Type: Cigarettes Length of Time of Smoking/Using Tobacco: since she was 11 until 1 year ago Have You Smoked in the Last Year: No Review of Systems Negative: Fever Positive: Nasal Discharge Positive: Chest Pain Positive: Shortness Of Breath. Negative: Cough All Other Systems Reviewed And Are Negative: Yes Physical Exam - Summary Physical Exam Summary: Appearance: Well-developed, well nourished, able to speak in complete sentences , does not appear especially breathless. Skin: Warm, dry, no obvious rash Eyes: sclera anicteric, no conjunctival pallor HENT: mucous membranes moist, pharynx appears normal Neck: Supple, nontender Respiratory: Clear to auscultation, no signs of respiratory distress Cardiovascular: Normal S1, S2. No murmurs. Normal distal pulses in tibial and radial bilaterally. When the patient attempted to sit up in bed she was able to reproduce the pain located at the base of the sternum, centered on the xiphoid process. Abdomen: Soft, nontender, normal active bowel sounds present Musculoskeletal: Normal, Strength/ROM Intact Neurological: A&Ox3, awake and alert, mentation is normal, speech is fluent and appropriate Psychiatric: affect is normal, does not appear anxious or depressed Triage Information Reviewed: Yes Vital Signs Reviewed: Yes Procedures - Sedation Patient Received Moderate/Deep Sedation with Procedure: No Diagnostics - Laboratory Result Diagrams: 01/23/20 01:00 01/23/20 01:00 Lab Statement: Any lab studies that have been ordered have been reviewed, and results considered in the medical decision making process. - Radiology Chest x-ray Radiology Interpretation Completed By: ED Physician Summary of Radiographic Findings: No acute process, no significant change from previous. ED physician has reviewed and interpreted this report. - EKG 00:28 Cardiac Rate: NL - 86 BPM EKG Rhythm: Sinus Rhythm Summary of EKG Findings: Right bundle branch block, inferolateral infarct, age indeterminate. Similar to tracing on 12/20/2019. ED physician has reviewed and interpreted this EKG. Chest Pain Course/Dx - Course Course Of Treatment: 54 year old F presenting to [facility] with a chief complaint of intermittent central chest pain since 1 week ago and shortness of breath since 22:30 last night. Patient reports a runny nose. Physical exam findings: well-developed, well nourished, able to speak in complete sentences, does not appear especially breathless, when the patient attempted to sit up in bed she was able to reproduce the pain located at the base of the sternum, centered on the xiphoid process. An EKG reveals sinus rhythm rate of 86 BPM, right bundle branch block, inferolateral infarct, age indeterminate. Similar to tracing on . CXR reveals, per ED physician, no acute process, no significant change from previous. Test results with no significant abnormalities except for a sodium of 134, chloride of 100, anion gap of 12, BUN of 43, creatinine of 1.53, BUN/creatinine ratio of 28.1, glucose of 287, alkaline phosphatase of 159, B- natriuretic peptide of 180, RDW of 17, and absolute neuts of 8.1. In the ED course, the patient was given Ativan 1 mg. Patient will be discharged with follow up from Dr. Garcia. The patient is agreeable with this plan. - Diagnoses Provider Diagnoses: Dyspnea, Chest wall pain Discharge ED - Sign-Out/Discharge Documenting (check all that apply): Patient Departure - Discharge Plan Condition: Good Disposition: HOME Patient Education Materials: Dyspnea (ED) Referrals: Jamaal Garcia DO [Primary Care Provider] - 2 Days Additional Instructions: Your chest xray as well as blood work and EKG all looked ok. I am not sure why you are having this breathing problem, it certainly could be anxiety with all the unsettled things going on right now. I have been seeing many patients with similar problems. For now I think it is ok to go home and relax. Certainly if your symptoms worsen we should see you back. - Billing Disposition and Condition Condition: GOOD Disposition: Home - Attestation Statements Document Initiated by Chelsie: Yes Documenting Scribe: Cait Francis Provider For Whom Chelsie is Documenting (Include Credential): Andrea Mercado MD Scribe Attestation: I, betsey Gregoryed for Andrea Mercado MD on 01/26/20 at 1844. Scribe Documentation Reviewed: Yes Provider Attestation: The documentation as recorded by the Cait izaguirre accurately reflects the service I personally performed and the decisions made by me, Andrea Mercado MD Status of Scribe Document: Viewed
[2020-01-23 01:08] LABS: ABS Basophils 0.1 10^3/ul (0-0.2); ABS Eosinophils 0.2 10^3/ul (0-0.6); ABS Lymphocytes 1.6 10^3/ul (1.0-4.8); ABS Monocytes 0.6 10^3/ul (0-0.8); ABS Neutrophils 8.1 10^3/ul (1.5-7.7); Eosinophil % 2.2 %; Hematocrit 37 % (35-47); Hemoglobin 12.6 g/dL (12.0-16.0); Mean Corpuscular HGB Conc 34 g/dL (31-36); Mean Corpuscular Hemoglobin 29 pg (27-31); Mean Corpuscular Volume 85 fL (80-97); Mean Platelet Volume 8.2 fL (7.4-10.4); Platelet Count 351 10^3/uL (150-450); Red Blood Count 4.41 10^6 /uL (3.70-4.87); Red Cell Distribution Width 17 % (10-15); White Blood Count 10.6 10^3/uL (3.5-10.8)
[2020-01-23 01:25] LABS: Albumin 4.1 g/dL (3.2-5.2); BUN/Creatinine Ratio 28.1 (8-20); Calcium 9.7 mg/dL (8.6-10.3); EGFR African American 42.6 (>60); EGFR Non-African American 35.2 (>60); Potassium 3.9 mmol/L (3.5-5.0); Total Bilirubin 0.7 mg/dL (0.2-1.0); Total Protein 8.1 g/dL (6.4-8.9)
[2020-01-23 01:26] LABS: Troponin I 0.02 ng/mL (<0.03)
[2020-01-23] MEDS ORDERED: LORazepam TAB(*) 1 MG PO ONE (01:34)
[2020-01-23 03:01] VITALS: BP 125/63
--- OUTSIDE RECORDS SUMMARY | 2020-01-23 03:37 | XMS REPORT | Continuity of Care Document ---
:1965 External Reference #:[id number] Author Name Trinity Puentes M.D. (transmitted by agent of provider Amy Wilkinson) Address [address] [place] [address] Care Team Providers Name Role Phone Jamaal Garcia DO - Family Care Team Information Lotteries Agent Medicine Problems Active Problems Provider Date Old myocardial infarction Tomas Grimaldo DO [facility] Onset: 02/18/2017 Atherosclerosis of [place] arteries of Kingsley Shaw MD, [facility], Onset: right leg with ulceration of heel and FSCAI midfoot Atherosclerosis of [place] arteries of Kingsley Shaw MD, [facility], Onset: left leg with ulceration of other part FSCAI of foot Chronic obstructive lung disease Winifred Ahumada MD Onset: 05/19/2017 Encounter for screening for malignant Winifred Ahumada MD Onset: 05/19/2017 neoplasm of respiratory organs Nicotine dependence, cigarettes, with Winifred Ahumada MD Onset: 05/19/2017 other nicotine-induced disorders Chronic diastolic heart failure Kingsley Shaw MD, [facility], Onset: 07/01/2017 FSCAI Atherosclerosis of [place] arteries of Kingsley Shaw [facility] [...] Femi Degroot M.D. Onset: 06/28/2019 atherosclerosis of [place] artery of limb Social History Type Date [...] chest pain Jardiance 10mg by mouth 30tabs E11.65 Hector Ramírez MD 12/07/2018 10mg Tablets daily Atorvastatin Calcium 1 by mouth every 90tabs E78.5 Tomas Grimaldo, 2016 80mg day DO FACC Tablets Isosorbide Mononitrate 1 by mouth every 90tabs Tomas Grimaldo, ER day DO FACC 30mg Tablets ER 24HR Brilinta 1 tab by mouth 180tabs Tomas Grimaldo, 90mg Tablets twice a day DO FACC Methimazole 5mg by mouth 30tabs E05.20 Hector Ramírez MD 5mg Tablets once daily Albuterol Sulfate HFA [...] Millicuries Injection Inj, Regadenoson, 0.1 MG Tomas Mendoza. Dillan, DO [facility] 03/31/2017 Injection Technetium TC 99M Tomas Mendoza. Dillan, DO [facility] 03/31/2017 [...] BMI (Body Mass Index) 35.2 kg/m2 Results Test Acquired Date Facility Test Result H/L Range Note Laboratory test 12/07/2019 [facility] Free T4 1.06 ng/dL Normal 0.61-1.[address] ([place] [address] Thyroxine [phone] ) TSH (Thyroid Stim Horm) 0.69 mcIU/mL Normal 0.34-5.60 T3 Total 137 ng/dL Normal 87-178 Comp Metabolic 12/07/2019 [facility] Sodium 139 mmol/L Normal 135-[address] [place] [address] [phone] Potassium 4.5 mmol/L Normal 3.5-5.0 Chloride 103 mmol/L Normal 101-111 Co2 Carbon Dioxide 24 mmol/L Normal 22-32 Anion Gap 12 mmol/L High 2-11 Glucose 218 mg/dL High 70-100 Blood Urea Nitrogen 42 mg/dL High 6-24 Creatinine 1.50 mg/dL High 0.51-0.95 BUN/Creatinine Ratio 28.0 High 8-20 Calcium 9.4 mg/dL Normal 8.6-10.3 Total Protein 7.3 g/dL Normal 6.4-8.9 Albumin 4.2 g/dL Normal 3.2-5.2 Globulin 3.1 g/dL Normal 2-4 Albumin/Globulin Ratio 1.4 Normal 1-3 Total Bilirubin 0.50 mg/dL Normal 0.2-1.0 Alkaline Phosphatase 146 U/L High 34-104 Alt 10 U/L Normal 7-52 Ast 10 U/L Low 13-39 Egfr Non- 36.1 >60 Egfr 43.6 >60 1 CBC Auto 12/07/2019 [facility] White Blood 11.1 10^3/uL High 3.5-10.[address] [place] [address] [phone] Red Blood Count 4.01 10^6/uL Normal 3.70-4.87 Hemoglobin 11.4 g/dL Low 12.0-16.0 Hematocrit 34 % Low 35-47 Mean Corpuscular Volume 86 fL Normal 80-97 Mean Corpuscular Hemoglobin 28 pg Normal 27-31 Mean Corpuscular HGB Conc 33 g/dL Normal 31-36 Red Cell Distribution Width 16 % High 10-15 Platelet Count 366 10^3/uL Normal 150-450 Mean Platelet Volume 7.7 fL Normal 7.4-10.4 Abs Neutrophils 9.1 10^3/uL High 1.5-7.7 Abs Lymphocytes 1.2 10^3/uL Normal 1.0-4.8 Abs Monocytes 0.5 10^3/uL Normal 0-0.8 Abs Eosinophils 0.2 10^3/uL Normal 0-0.6 Abs Basophils 0.1 10^3/uL Normal 0-0.2 Abs Nucleated RBC 0.0 10^3/uL Granulocyte % 81.8 % Lymphocyte % 11.0 % Monocyte % 4.7 % Eosinophil % 2.0 % Basophil % 0.5 % Nucleated Red Blood Cells % 0.0 1 Because ethnic data is not always [...] 15-29 5 Kidney failure <15 (or dialysis) Procedures Date Code Description Status 12/29/2019 43692 Myocardial Perfusion Imaging Tomographic (Spect) Completed Multiple Studies 12/11/2019 04841 Treadmill Interp/Report Only Completed 12/11/2019 98118 Stress Test Supervsn W/Out I/R Completed 12/05/2019 22902 EKG Tracing & Interpretation Completed 11/25/2019 12950 EKG, Interpretation Only Completed 11/24/2019 48123 EKG, Interpretation Only Completed 11/23/2019 44528 EKG, Interpretation Only Completed 11/21/2019 81549 EKG Tracing & Interpretation Completed 10/29/2019 74306 ECHO Transthorasic Realtime 2D W Doppler & Color Flow Completed Hosp 10/28/2019 32925 EKG, Interpretation Only Completed 08/30/2019 04338 Stress Test Completed 08/30/2019 57781 Myocardial Perfusion Imaging Tomographic (Spect) Completed Multiple Studies 08/29/2019 66830 ECHO Transthoracic, Real-Time 2D With Doppler And Color Completed Flow 08/29/2019 48896 ECHO Transthoracic, Real-Time 2D With Doppler And Color Completed Flow 07/21/2019 21579 EKG Tracing & Interpretation Completed 10/13/2013 [id number] Mammogram Completed Medical Devices Description No Information Available Encounters Type Date Location Provider Dx Diagnosis Office Visit 12/22/2019 [facility] Trinity Puentes, R07.9 Chest pain, 10:36a tania Gregory M.D. unspecified Hospitalists E11.40 Type 2 diabetes mellitus with diabetic neuropathy, unsp M54.9 Dorsalgia, unspecified I10 Essential (primary) hypertension Office Visit 12/21/2019 10:36a [facility] Sinai R07.9 Chest pain, Assoctania M.D. 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 Office Visit 12/10/2019 10:18a [facility] Jeison R07.9 Chest pain, Assoc,pc MADDIE Fuentes unspecified Hospitalists E11.40 Type 2 diabetes mellitus with diabetic neuropathy, unsp I11.0 Hypertensive heart disease with heart failure I50.20 Unspecified systolic (congestive) heart failure J44.9 Chronic obstructive pulmonary disease, unspecified Z79.4 longterm (current) use of insulin Office Visit 12/05/2019 8:00a [facility] Tomas Navarrete I50.9 Heart failure, Of Sonja Grimaldo, DO unspecified FACC I25.119 Athscl heart disease of [place] cor art w unsp ang pctrs E11.65 Type 2 diabetes mellitus with hyperglycemia 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 I10 Essential (primary) hypertension J44.9 Chronic obstructive pulmonary disease, unspecified I73.9 Peripheral vascular disease, unspecified F17.201 Nicotine dependence, unspecified, in remission I45.19 Other right bundle-branch block I63.9 Cerebral infarction, unspecified N18.9 Chronic kidney disease, unspecified Z95.2 Presence of prosthetic heart valve I25.2 Old myocardial infarction I25.5 Ischemic cardiomyopathy Office Visit 11/26/2019 11:54a [facility] Tomas Navarrete I50.9 Heart failure, Of Sonja Grimaldo, DO unspecified FACC I20.0 Unstable angina Office Visit 11/26/2019 10:00a [facility] Nicky Eleanor, I11.0 Hypertensive heart Assoc,pc SENIOR WINDOWS ADMINISTRATOR disease with heart Hospitalists failure I50.23 Acute on chronic systolic (congestive) heart failure J96.01 Acute respiratory failure with hypoxia I20.0 Unstable angina K21.9 Gastro-esophageal reflux disease without esophagitis E11.9 Type 2 diabetes mellitus without complications Office Visit 11/25/2019 [facility] Nicky Eleanor, E11.9 Type 2 diabetes 9:59a Assoc,pc SENIOR WINDOWS ADMINISTRATOR mellitus without Hospitalists complications J44.9 Chronic obstructive pulmonary disease, unspecified K21.9 Gastro-esophageal reflux disease without esophagitis Office Visit 11/24/2019 9:58a [facility] Nicky Eleanor, I11.0 Hypertensive heart Assoc,pc SENIOR WINDOWS ADMINISTRATOR disease with heart Hospitalists failure E11.9 Type 2 diabetes mellitus without complications J44.9 Chronic obstructive pulmonary disease, unspecified K21.9 Gastro-esophageal reflux disease without esophagitis Office Visit 11/24/2019 4:40p [facility] Tomas SWilfredo I50.9 Heart failure, Of Sonja Grimaldo, DO unspecified FACC I20.0 Unstable angina Office Visit 11/23/2019 [facility] Joi I11.0 Hypertensive 9:58a Assoc,pc MADDIE Pop heart disease Hospitalists with heart failure I50.20 Unspecified systolic (congestive) heart failure R07.9 Chest pain, unspecified E11.9 Type 2 diabetes mellitus without complications J44.9 Chronic obstructive pulmonary disease, unspecified Office Visit 11/23/2019 3:13p [facility] Tomas SWilfredo I50.9 Heart failure, Of Sonja Grimaldo, DO unspecified FACC I20.0 Unstable angina Office Visit 11/21/2019 8:00a [facility] Tomas Navarrete I25.119 Athscl heart Of Sonja Grimaldo, DO disease of FACC [place] cor art w unsp ang pctrs E11.65 Type 2 diabetes mellitus with hyperglycemia 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 unspecified Hospitalists E05.90 Thyrotoxicosis, unsp without thyrotoxic crisis or storm I50.9 Heart failure, unspecified J44.9 Chronic obstructive pulmonary disease, unspecified E11.9 Type 2 diabetes mellitus without complications R60.0 Localized edema Z95.1 Presence of aortocoronary bypass graft Office Visit 10/29/2019 8:55a [facility] Katerina R07.9 Chest pain, Assoc,pc MD Nii unspecified Hospitalists R79.89 Other specified abnormal findings of blood chemistry I50.9 Heart failure, unspecified E11.9 Type 2 diabetes mellitus without complications J44.9 Chronic obstructive pulmonary disease, unspecified Z95.1 Presence of aortocoronary bypass graft Office Visit 10/28/2019 3:19p [facility] Nehemiah Jaeger R07.9 Chest pain, Of Sonja Hirsch M.D., unspecified FACC, FASNC R79.89 Other specified abnormal findings of blood chemistry I25.10 Athscl heart disease of [place] coronary artery w/o ang pctrs Z95.1 Presence of aortocoronary bypass graft Office Visit 10/28/2019 [facility] Trinity Puentes, R07.9 Chest pain, 8:54a tania Gregory M.D. unspecified Hospitalists I21.4 Non-St elevation (Nstemi) myocardial infarction E03.9 Hypothyroidism, unspecified I50.9 Heart failure, unspecified E11.9 Type 2 diabetes mellitus without complications Office Visit 09/05/2019 10:20a [facility] Tomas S. I50.40 Unsp combined Of [...] pulmonary disease, unspecified Office Visit 07/21/2019 10:00a [facility] Tomas SWilfredo I95.9 Hypotension, Of Sonja Grimaldo DO unspecified FACC R07.9 Chest pain, unspecified I50.40 Unsp combined systolic and diastolic (congestive) hrt fail I73.9 Peripheral vascular disease, unspecified E11.69 Type 2 diabetes mellitus with other specified complication I10 Essential (primary) hypertension E78.5 Hyperlipidemia, unspecified F17.201 Nicotine dependence, unspecified, in remission I45.19 Other right bundle-branch block N18.9 Chronic kidney disease, unspecified I63.9 Cerebral infarction, unspecified J44.9 Chronic obstructive pulmonary disease, unspecified Assessments Date Code Description Provider 12/29/2019 I25.119 Atherosclerotic heart disease of Tomas Grimaldo, DO [facility] [place] coronary artery with unspecified angina pectoris 12/22/2019 R07.9 Chest pain, unspecified Trinity Puentes M.D. 12/22/2019 E11.40 Type 2 diabetes mellitus with Trinity Puentes M.D. diabetic neuropathy, unspecified 12/22/2019 M54.9 Dorsalgia, unspecified Trinity Puentes M.D. 12/22/2019 I10 Essential (primary) hypertension Trinity Puentes M.D. 12/21/2019 R07.9 Chest pain, unspecified Sinai Garcia M.D. 12/21/2019 E11.9 Type 2 diabetes mellitus without Sinai Garcia M.D. complications 12/21/2019 I11.0 Hypertensive heart disease with heart Sinai Garcia M.D. failure 12/21/2019 I50.20 Unspecified systolic (congestive) Sinai Garcia M.D. heart failure 12/11/2019 R07.9 Chest pain, unspecified Jeison Fuentes PA 12/11/2019 R07.9 Chest pain, unspecified Dao Dumont M.D., [facility], FSCAI 12/11/2019 I11.0 Hypertensive heart disease with heart MADDIE Schulz failure 12/11/2019 I50.20 Unspecified systolic (congestive) Jeison Fuentes PA heart failure 12/11/2019 E11.40 Type 2 diabetes mellitus with MADDIE Schulz diabetic neuropathy, unspecified 12/11/2019 Z79.4 longterm (current) use of insulin MADDIE Schulz 12/10/2019 R07.9 Chest pain, unspecified Jeison Fuentes PA 12/10/2019 E11.40 Type 2 diabetes mellitus with Jeison Fuentes PA diabetic neuropathy, unspecified 12/10/2019 I11.0 Hypertensive heart disease with heart MADDIE Schulz failure 12/10/2019 I50.20 Unspecified systolic (congestive) Jeison Fuentes PA heart failure 12/10/2019 J44.9 Chronic obstructive pulmonary MADDIE Schulz disease, unspecified 12/10/2019 Z79.4 longterm (current) use of insulin MADDIE Schulz 12/05/2019 I50.9 Heart failure, unspecified Tomas Grimaldo, DO FACC 12/05/2019 I25.119 Atherosclerotic heart disease of Tomas Grimaldo, DO FACC [place] coronary artery with unspecified angina pectoris 12/05/2019 E11.65 Type 2 diabetes mellitus with Tomas Grimaldo, DO FACC hyperglycemia 12/05/2019 E05.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 Tomas Grimaldo, DO FACC multinodular goiter without thyrotoxic crisis or storm 12/05/2019 Z95.1 Presence of aortocoronary bypass Tomas Grimaldo, DO FACC graft 12/05/2019 I10 Essential (primary) hypertension Tomasnicole Grimaldo, DO FACC 12/05/2019 J44.9 Chronic obstructive pulmonary Tomasnicole Grimaldo, DO FACC disease, unspecified 12/05/2019 I73.9 Peripheral vascular disease, Tomas Grimaldo, DO FACC unspecified 12/05/2019 F17.201 Nicotine dependence, unspecified, in Tomas Grimaldo, DO FACC remission 12/05/2019 I45.19 Other right bundle-branch block Tomas Grimaldo, DO FACC 12/05/2019 I63.9 Cerebral infarction, unspecified Tomas Grimaldo, DO FACC 12/05/2019 N18.9 Chronic kidney disease, unspecified Tomas Grimaldo, DO FACC 12/05/2019 Z95.2 Presence of prosthetic heart valve Tomas Grimaldo, DO FACC 12/05/2019 I25.2 Old myocardial infarction Tomasnicole Grimaldo, DO FACC 12/05/2019 I25.5 Ischemic cardiomyopathy Tomas Grimaldo, DO FACC 11/26/2019 I11.0 Hypertensive heart disease with heart Nicky Eleanor, SENIOR WINDOWS ADMINISTRATOR failure 11/26/2019 I50.23 Acute on chronic systolic Nicky Eleanor, SENIOR WINDOWS ADMINISTRATOR (congestive) heart failure 11/26/2019 I50.9 Heart failure, unspecified Tomas Grimaldo, DO FACC 11/26/2019 J96.01 Acute respiratory failure with Nicky Eleanor, SENIOR WINDOWS ADMINISTRATOR hypoxia 11/26/2019 I20.0 Unstable angina Nicky Eleanor, SENIOR WINDOWS ADMINISTRATOR 11/26/2019 I20.0 Unstable angina Tomasnicole Grimaldo, DO FACC 11/26/2019 K21.9 Gastro-esophageal reflux disease Nicky Eleanor, SENIOR WINDOWS ADMINISTRATOR without esophagitis 11/26/2019 E11.9 Type 2 diabetes mellitus without Nicky Eleanor, SENIOR WINDOWS ADMINISTRATOR complications 11/25/2019 R94.31 Abnormal electrocardiogram [ECG] Tomas Grimaldo, DO FAC [EKG] 11/25/2019 E11.9 Type 2 diabetes mellitus without Nicky Eleanor, SENIOR WINDOWS ADMINISTRATOR complications 11/25/2019 J44.9 Chronic obstructive pulmonary Nicky Eleanor, SENIOR WINDOWS ADMINISTRATOR disease, unspecified 11/25/2019 K21.9 Gastro-esophageal reflux disease Nicky Eleanor, SENIOR WINDOWS ADMINISTRATOR without esophagitis 11/24/2019 I45.10 Unspecified right bundle-branch block Tomas Grimaldo, DO FACC 11/24/2019 I11.0 Hypertensive heart disease with heart Nicky Eleanor, SENIOR WINDOWS ADMINISTRATOR failure 11/24/2019 I50.9 Heart failure, unspecified Tomas Grimlado, DO FACC 11/24/2019 E11.9 Type 2 diabetes mellitus without Nicky Eleanor, SENIOR WINDOWS ADMINISTRATOR complications 11/24/2019 I20.0 Unstable angina Tomas Grimaldo, DO FACC 11/24/2019 J44.9 Chronic obstructive pulmonary Nicky Eleanor, SENIOR WINDOWS ADMINISTRATOR disease, unspecified 11/24/2019 K21.9 Gastro-esophageal reflux disease Nicky Eleanor, SENIOR WINDOWS ADMINISTRATOR without esophagitis 11/23/2019 I45.10 Unspecified right bundle-branch block Tomas Grimaldo, DO FACC 11/23/2019 I11.0 Hypertensive heart disease with heart Joi Donn, PA failure 11/23/2019 I50.9 Heart failure, unspecified Tomas Rosalba Grimaldo, DO FACC 11/23/2019 I50.20 Unspecified systolic (congestive) Joiradha Pop, PA heart failure 11/23/2019 I20.0 Unstable angina Tomasnicole Grimaldo, DO FACC 11/23/2019 R07.9 Chest pain, unspecified Joi Pop, PA 11/23/2019 E11.9 Type 2 diabetes mellitus without Joi Pop, PA complications 11/23/2019 J44.9 Chronic obstructive pulmonary Joi Pop, PA disease, unspecified 11/21/2019 I25.119 Atherosclerotic heart disease of Tomas Grimaldo, DO [facility] [place] coronary artery with unspecified angina pectoris 11/21/2019 E11.65 Type 2 diabetes mellitus with Tomas rGimaldo, DO [facility] hyperglycemia 11/21/2019 E05.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 Tomas Grimaldo, DO [facility] multinodular goiter without thyrotoxic crisis or storm 11/21/2019 I50.9 Heart failure, unspecified Tomas Grimaldo, DO [facility] 11/21/2019 Z95.1 Presence of aortocoronary bypass Tomas Grimaldo, DO [facility] graft 11/21/2019 I10 Essential (primary) hypertension Tomas Grimaldo, DO [facility] 11/21/2019 E78.5 Hyperlipidemia, unspecified Tomas Grimaldo, DO [facility] 11/02/2019 E11.65 Type 2 diabetes mellitus with Hector Ramírez MD hyperglycemia 11/02/2019 E05.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 Hector Ramírez MD multinodular goiter without thyrotoxic crisis or storm 11/02/2019 Z79.4 longterm (current) use of insulin Hector Ramírez MD [...] Hirsch M.D., [facility], [facility] 10/29/2019 R07.9 Chest pain, unspecified Katerina Bales [...] Hirsch M.D., [facility], FASCA 10/28/2019 R79.89 Other specified abnormal findings of Nehemiah Hirsch M.D., [facility], blood chemistry FASCA 10/28/2019 I25.10 Atherosclerotic heart disease of Nehemiah Hirsch M.D., [facility], [place] coronary artery without angina FASCA pectoris 10/28/2019 Z95.1 Presence of aortocoronary bypass Nehemiah Hirsch M.D., [facility], graft FASCA 10/28/2019 R07.9 Chest pain, unspecified Trinity Puentes M.D. 10/28/2019 R94.31 Abnormal electrocardiogram [ECG] Nehemiah Hirsch M.D., [facility], [EKG] FAS[facility] 10/28/2019 I21.4 Non-St elevation (Nstemi) myocardial Trinity Puentes M.D. infarction 10/28/2019 E03.9 Hypothyroidism, unspecified Trinity Puentes M.D. 10/28/2019 I50.9 Heart failure, unspecified Trinity Puentes M.D. 10/28/2019 E11.9 Type 2 diabetes mellitus without Trinity Puentes M.D. complications 09/05/2019 I50.40 Unspecified combined systolic Tomas Grimaldo DO [facility] (congestive) and diastolic (congestive) heart failure 09/05/2019 E11.69 Type 2 diabetes mellitus with other Tomas Grimaldo DO [facility] specified [...] I50.40 Unspecified combined systolic Tomas Grimaldo, DO FAC (congestive) and diastolic (congestive) heart failure 07/21/2019 I73.9 Peripheral vascular disease, Tomas Grimaldo, DO FACC unspecified 07/21/2019 E11.69 Type 2 diabetes mellitus with other Tomas Grimaldo, DO FAC specified complication 07/21/2019 I10 Essential (primary) hypertension Tomas Grimaldo, DO FACC 07/21/2019 E78.5 Hyperlipidemia, unspecified Tomas Grimaldo, DO FACC 07/21/2019 F17.201 Nicotine dependence, unspecified, in Tomas Grimaldo, DO FACC remission 07/21/2019 I45.19 Other right bundle-branch block Tomas Grimaldo, DO FACC 07/21/2019 N18.9 Chronic kidney disease, unspecified Tomas Grimaldo, DO FACC 07/21/2019 I63.9 Cerebral infarction, unspecified Tomas Grimaldo, DO FACC 07/21/2019 J44.9 Chronic obstructive pulmonary Tomas Grimaldo DO FACC disease, unspecified Plan of Treatment Future Appointment(s):01/19/2020 11:00 am - Winifred Ahumada MD at [facility]02/13/2020 11:00 am - Hector Ramírez MD at [facility]03/05/2020 10:20 am - Tomas Grimaldo DO FACC at [facility]12/05/2019 - Tomas Grimaldo DO FACCI50.9 Heart failure, mcxrlkhcixyW93.119 Atherosclerotic heart disease of [place] coronary artery with unspecified angina pjmlcxvnE33.65 Type 2 diabetes mellitus with ltvbmqzyvrmkiQ04.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 multinodular goiter without thyrotoxic crisis or bllofM66.1 Presence of aortocoronary bypass lvizzE98 Essential (primary) dkbfngcbbdhnE63.9 Chronic obstructive pulmonary disease, bzrcgaxonaqI43.9 Peripheral vascular disease, vrhtdezuqcaL60.201 Nicotine dependence, unspecified, in rsoosjmokM15.19 Other right bundle-branch mafcfJ34.9 Cerebral infarction, ngtidlloswyJ14.9 Chronic kidney disease, ikcurbsigsvY42.2 Presence of prosthetic heart ydhwcA33.2 Old myocardial twfjclqswvL04.5 Ischemic cardiomyopathy Functional Status Description No Information Available Mental Status Description No Information Available Referrals Refer to Reason for Referral Status Appt Date Uri Wallace, BUSTER diabetic neuropathy Sent [address] [phone]
--- OUTSIDE RECORDS SUMMARY | 2020-01-23 03:37 | XMS REPORT | Continuity of Care Document ---
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 Medicine Problems Active Problems Provider Date Old myocardial infarction Tomas Grimaldo DO [facility] Onset: 02/18/2017 Atherosclerosis of [place] arteries of Kingsley Shaw MD, [facility], Onset: right leg with ulceration of heel and FSCAI midfoot Atherosclerosis of [place] arteries of Kingsley Shaw MD, [facility], Onset: left leg with ulceration of other part FSCAI of foot Chronic obstructive lung disease Winifred Ahumada MD Onset: 05/19/2017 Encounter for screening for malignant Winifred Ahumada MD Onset: 05/19/2017 neoplasm of respiratory organs Nicotine dependence, cigarettes, with Winifred Ahumada MD Onset: 05/19/2017 other nicotine-induced disorders Chronic diastolic heart failure Kingsley Shaw MD, [facility], Onset: 07/01/2017 FSCAI Atherosclerosis of [place] arteries of Kingsley Shaw MD, [facility], Onset: 04/2017 right leg with ulceration of other FSCAI part of foot Chest pain MADDIE Schulz Onset: 05/26/2018 Gastroesophageal reflux disease MADDIE Schulz Onset: 05/26/2018 Type 2 diabetes mellitus MADDIE Schulz Onset: 05/26/2018 Long-term current use of insulin MADDIE Schulz Onset: 05/26/2018 Hyperlipidemia MADDIE Schulz Onset: 05/26/2018 Atherosclerosis of arteries of the Femi G. Politi, M.D. Onset: 06/28/2019 extremities Intermittent claudication due to Femi Degroot M.D. Onset: 06/28/2019 atherosclerosis of [place] artery of limb Social History Type Date [...] Inj, Regadenoson, 0.1 MG Tomas Grimaldo, DO [facility] 08/30/2019 Injection Technetium TC 99M Tomas Grimaldo, DO [facility] 08/30/2019 Tetrofosmin, Per Unit Dose Up To 40 Millicuries Injection Technetium TC 99M Tomas Grimaldo, DO [facility] 08/30/2019 Tetrofosmin, Per Unit Dose Up To 40 Millicuries Injection Inj, Regadenoson, 0.1 MG Tomas Grimaldo, DO [facility] 04/25/2018 Injection Technetium TC 99M Tomas Grimaldo, DO [facility] 04/25/2018 Tetrofosmin, Per Unit Dose Up To 40 Millicuries Injection Inj, Regadenoson, 0.1 MG Tomas Grimaldo, DO [facility] 03/31/2017 Injection Technetium TC 99M Tomas Grimaldo, DO [facility] 03/31/2017 Tetrofosmin, Per Unit Dose Up [...] Result H/L Range Note Laboratory test 12/07/2019 [facility] Free T4 1.06 ng/dL Normal 0.61-1.[address] ([place] [address] Thyroxine [phone] ) TSH (Thyroid Stim Horm) 0.69 mcIU/mL Normal 0.34-5.60 T3 Total 137 ng/dL Normal 87-178 Comp Metabolic 12/07/2019 [facility] Sodium 139 mmol/L Normal 135-[address] [place] [address] [phone] Potassium 4.5 mmol/L Normal 3.5-5.0 Chloride 103 [...] Egfr 43.6 >60 1 CBC Auto 12/07/2019 [facility] White Blood 11.1 10^3/uL High 3.5-10.[address] [place] [address] [phone] Red Blood Count 4.01 10^6/uL Normal 3.70-4.87 [...] dialysis) Procedures Date Code Description Status 12/29/2019 54705 Myocardial Perfusion Imaging Tomographic (Spect) Completed Multiple Studies 12/11/2019 31715 Treadmill Interp/Report Only Completed 12/11/2019 69336 Stress Test Supervsn W/Out I/R Completed 12/05/2019 14613 EKG Tracing & Interpretation Completed 11/25/2019 92887 EKG, Interpretation Only Completed 11/24/2019 64103 EKG, Interpretation Only Completed 11/23/2019 08400 EKG, Interpretation Only Completed 11/21/2019 17303 EKG Tracing & Interpretation Completed 10/29/2019 65333 ECHO Transthorasic Realtime 2D W Doppler & Color Flow Completed Hosp 10/28/2019 22881 EKG, Interpretation Only Completed 08/30/2019 69102 Stress Test Completed 08/30/2019 98739 Myocardial Perfusion Imaging Tomographic (Spect) Completed Multiple Studies 08/29/2019 77887 ECHO Transthoracic, Real-Time 2D With Doppler And Color Completed Flow 08/29/2019 26367 ECHO Transthoracic, Real-Time 2D With Doppler And Color Completed Flow 07/21/2019 85650 EKG Tracing & Interpretation Completed 10/13/2013 [id number] Mammogram Completed Medical Devices Description No Information Available Encounters Type Date Location Provider Dx Diagnosis Office Visit 12/11/2019 [facility] Jeison Fuentes, R07.9 Chest pain, 10:19a [place] unspecified Hospitalists I11.0 Hypertensive heart disease with heart failure I50.20 Unspecified systolic (congestive) heart failure E11.40 Type 2 diabetes mellitus with diabetic neuropathy, unsp Z79.4 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) use of insulin Office Visit 12/10/2019 10:18a [place] Noni Mchugh R07.9 Chest pain, Assoc,MADDIE Ly unspecified Hospitalists E11.40 Type 2 diabetes mellitus with diabetic neuropathy, unsp I11.0 Hypertensive heart disease with heart failure I50.20 Unspecified systolic (congestive) heart failure J44.9 Chronic obstructive pulmonary disease, unspecified Z79.4 half-way (current) use of insulin Office Visit 12/05/2019 8:00a [facility] Tomas Navarrete I50.9 Heart failure, Of [employer] Grimaldo, DO unspecified FACC I25.119 Athscl heart disease of [place] cor art w unsp ang pctrs E11.65 [...] I25.5 Ischemic cardiomyopathy Office Visit 11/26/2019 11:54a [facility] Tomas S. I50.9 Heart failure, Of [facility], DO unspecified FACC I20.0 Unstable angina Office Visit 11/26/2019 10:00a [facility] Nicky Eleanor, I11.0 Hypertensive heart Assoc,pc [employer] disease with heart Hospitalists failure I50.23 Acute on chronic systolic (congestive) heart failure J96.01 Acute respiratory failure with hypoxia I20.0 Unstable angina K21.9 Gastro-esophageal reflux disease without esophagitis E11.9 Type 2 diabetes mellitus without complications Office Visit 11/25/2019 [facility] Nicky Eleanor, E11.9 Type 2 diabetes 9:59a Assoc,pc [employer] mellitus without Hospitalists complications J44.9 Chronic obstructive pulmonary disease, unspecified K21.9 Gastro-esophageal reflux disease without esophagitis Office Visit 11/24/2019 4:40p [facility] Tomas S. I50.9 Heart failure, Of [facility] Grimaldo, DO unspecified FACC I20.0 Unstable angina Office Visit 11/24/2019 9:58a [facility] Nicky Eleanor, I11.0 Hypertensive heart Assoc,pc [place] disease with heart Hospitalists failure E11.9 Type 2 diabetes mellitus without complications J44.9 Chronic obstructive pulmonary disease, unspecified K21.9 Gastro-esophageal reflux disease without esophagitis Office Visit 11/23/2019 [facility] Joi I11.0 Hypertensive 9:58a Assoc,pc MADDIE Pop heart disease Hospitalists with heart failure I50.20 Unspecified systolic (congestive) heart failure R07.9 Chest pain, unspecified E11.9 Type 2 diabetes mellitus without complications J44.9 Chronic obstructive pulmonary disease, unspecified Office Visit 11/23/2019 3:13p [facility] Tomas Navarrete I50.9 Heart failure, Of Sonja Grimaldo, DO unspecified FACC I20.0 Unstable angina Office Visit 11/21/2019 8:00a [facility] Tomas SWilfredo I25.119 Athscl heart Of Sonja Grimaldo, DO disease of FACC [place] cor art w unsp ang pctrs E11.65 Type 2 diabetes mellitus with hyperglycemia 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 unspecified Hospitalists E05.90 Thyrotoxicosis, unsp without thyrotoxic crisis or storm I50.9 Heart failure, unspecified J44.9 Chronic obstructive pulmonary disease, unspecified E11.9 Type 2 diabetes mellitus without complications R60.0 Localized edema Z95.1 Presence of aortocoronary bypass graft Office Visit 10/29/2019 8:55a [facility] Katerina R07.9 Chest pain, Assoc,tania Bales MD unspecified Hospitalists R79.89 Other specified abnormal findings of blood chemistry I50.9 Heart failure, unspecified E11.9 Type 2 diabetes mellitus without complications J44.9 Chronic obstructive pulmonary disease, unspecified Z95.1 Presence of aortocoronary bypass graft Office Visit 10/28/2019 3:19p [facility] Nehemiah Jaeger R07.9 Chest pain, Of [facility] Nichelle Hirsch, unspecified FACC, FASNC R79.89 Other specified abnormal findings of blood chemistry I25.10 Athscl heart disease of [place] coronary artery w/o ang pctrs Z95.1 Presence of aortocoronary bypass graft Office Visit 10/28/2019 [facility] Trinity Deloris, R07.9 Chest pain, 8:54a tania Gregory M.D. unspecified Hospitalists I21.4 Non-St elevation (Nstemi) myocardial infarction E03.9 Hypothyroidism, unspecified I50.9 Heart failure, unspecified E11.9 Type 2 diabetes mellitus without complications Office Visit 09/05/2019 10:20a [facility] Tomas S. I50.40 Unsp combined Of [...] pulmonary disease, unspecified Office Visit 07/21/2019 10:00a [facility] Tomas SWilfredo I95.9 Hypotension, Of Sonja [...] 12/29/2019 I25.119 Atherosclerotic heart disease of Tomas Rosalba Grimaldo, DO FACC [place] coronary artery with unspecified angina pectoris 12/22/2019 [...] heart failure 12/11/2019 R07.9 Chest pain, unspecified MADDIE Schulz 12/11/2019 R07.9 Chest pain, unspecified Dao Dumont M.D., [facility], [facility] 12/11/2019 I11.0 Hypertensive heart disease with heart MADDIE Schulz failure 12/11/2019 I50.20 Unspecified systolic (congestive) MADDIE Schulz heart failure 12/11/2019 E11.40 Type 2 diabetes mellitus with MADDIE Schulz diabetic neuropathy, unspecified 12/11/2019 Z79.4 half-way (current) use of insulin MADDIE Schulz 12/10/2019 R07.9 Chest pain, unspecified MADDIE Schulz 12/10/2019 E11.40 Type 2 diabetes mellitus with MADDIE Schulz diabetic neuropathy, unspecified 12/10/2019 I11.0 Hypertensive heart disease with heart MADDIE Schulz failure 12/10/2019 I50.20 Unspecified systolic (congestive) MADDIE Schulz heart failure 12/10/2019 J44.9 Chronic obstructive pulmonary MADDIE Schulz disease, unspecified 12/10/2019 Z79.4 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) use of insulin MADDIE Schulz 12/05/2019 I50.9 Heart failure, unspecified Tomas Grimaldo DO FACC 12/05/2019 I25.119 Atherosclerotic heart disease of Tomas Grimaldo, DO FACJohn [place] coronary artery with unspecified angina pectoris 12/05/2019 E11.65 Type 2 diabetes mellitus with Tomas Grimaldo DO FACC hyperglycemia 12/05/2019 E05.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 Tomas Grimaldo, DO FACC multinodular goiter without thyrotoxic crisis or storm 12/05/2019 Z95.1 Presence of aortocoronary bypass Tomas Grimaldo DO FACC graft 12/05/2019 I10 Essential (primary) hypertension Tomas Grimaldo DO LUANN 12/05/2019 J44.9 Chronic obstructive pulmonary Tomas Grimaldo, DO FACC disease, unspecified 12/05/2019 I73.9 [...] DO FACC 12/05/2019 I25.2 Old myocardial infarction Tomas Grimaldo, DO FACC 12/05/2019 I25.5 Ischemic cardiomyopathy Tomas Grimaldo, DO FACC 11/26/2019 I11.0 Hypertensive heart disease with heart Nicky Eleanor, [employer] failure 11/26/2019 I50.23 Acute on chronic systolic Nicky Eleanor, [employer] (congestive) heart failure 11/26/2019 I50.9 Heart failure, unspecified Tomas Grimaldo, DO FACC 11/26/2019 J96.01 Acute respiratory failure with Nicky Eleanor, [employer] hypoxia 11/26/2019 I20.0 Unstable angina Nicky Eleanor, [employer] 11/26/2019 I20.0 Unstable angina Tomas Grimadlo, DO FACC 11/26/2019 K21.9 Gastro-esophageal reflux disease Nicky Eleanor, [employer] without esophagitis 11/26/2019 E11.9 Type 2 diabetes mellitus without Nicky Eleanor, [employer] complications 11/25/2019 R94.31 Abnormal electrocardiogram [ECG] Tomas Grimaldo, DO FAC [EKG] 11/25/2019 E11.9 Type 2 diabetes mellitus without Nicky Eleanor, [employer] complications 11/25/2019 J44.9 Chronic obstructive pulmonary Nicky Eleanor, [employer] disease, unspecified 11/25/2019 K21.9 Gastro-esophageal reflux disease Nicky Eleanor, [employer] without esophagitis 11/24/2019 I45.10 Unspecified right bundle-branch block Tomas Grimaldo, DO FACC 11/24/2019 I11.0 Hypertensive heart disease with heart Nicky Eleanor, [employer] failure 11/24/2019 I50.9 Heart failure, unspecified Tomas Grimaldo, DO FACC 11/24/2019 E11.9 Type 2 diabetes mellitus without Nicky Eleanor, [employer] complications 11/24/2019 I20.0 Unstable angina Tomas Grimaldo, DO FACC 11/24/2019 J44.9 Chronic obstructive pulmonary Nicky Eleanor, [employer] disease, unspecified 11/24/2019 K21.9 Gastro-esophageal reflux disease Nicky Eleanor, [employer] without esophagitis 11/23/2019 I45.10 Unspecified right bundle-branch block Tomas Grimaldo, DO FACC 11/23/2019 I11.0 Hypertensive heart disease with heart Joi Pop, PA failure 11/23/2019 I50.9 Heart failure, unspecified Tomas Grimaldo, DO FACC 11/23/2019 I50.20 Unspecified systolic (congestive) Joi Pop, PA heart failure 11/23/2019 I20.0 Unstable angina Tomas Grimaldo, DO FACC 11/23/2019 R07.9 Chest pain, unspecified Joi Pop, PA 11/23/2019 E11.9 Type 2 diabetes mellitus without Joi Pop, PA complications 11/23/2019 J44.9 Chronic obstructive pulmonary Joi Pop, PA disease, unspecified 11/21/2019 I25.119 Atherosclerotic heart disease of Tomas Grimaldo, DO FACC [place] coronary artery with unspecified angina pectoris 11/21/2019 E11.65 Type 2 diabetes mellitus with Tomas Grimaldo, DO FAC hyperglycemia 11/21/2019 E05.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 Tomasnicole Sernano, DO FACC multinodular goiter without thyrotoxic crisis or storm 11/21/2019 I50.9 Heart failure, unspecified Tomas Grimaldo, DO FACC 11/21/2019 Z95.1 Presence of aortocoronary bypass Tomasnicole Sernano, DO FACC graft 11/21/2019 I10 Essential (primary) hypertension Tomas Grimaldo, DO [facility] 11/21/2019 E78.5 Hyperlipidemia, unspecified Tomas Grimaldo, DO FAC 11/02/2019 E11.65 Type 2 diabetes mellitus with Hector Ramírez MD hyperglycemia 11/02/2019 E05.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 Hector Ramírez MD multinodular goiter without thyrotoxic crisis or storm 11/02/2019 Z79.4 half-way (current) use of insulin Hector Ramírez MD [...] R07.9 Chest pain, unspecified Nehemiah Hirsch M.D., [facility], [facility] 10/29/2019 R07.9 Chest pain, unspecified Katerina [...] R07.9 Chest pain, unspecified Nehemiah Hirsch M.D., [facility], FASNM 10/28/2019 R79.89 Other specified abnormal findings of Nehemiah Hirsch M.D., [facility], blood chemistry FASNC 10/28/2019 I25.10 Atherosclerotic heart disease of Nehemiah Hirsch M.D., [facility], [place] coronary artery without angina [facility] pectoris 10/28/2019 Z95.1 Presence of aortocoronary bypass Nehemiah Hirsch M.D., [facility], graft FASNM 10/28/2019 R07.9 Chest pain, unspecified Trinity Puentes M.D. 10/28/2019 R94.31 Abnormal electrocardiogram [ECG] Nehemiah Hirsch M.D., [facility], [EKG] [facility] 10/28/2019 I21.4 Non-St elevation (Nstemi) myocardial Trinity Puentes M.D. infarction 10/28/2019 E03.9 Hypothyroidism, unspecified Trinity Puentes M.D. 10/28/2019 I50.9 Heart failure, unspecified Trinity Puentes M.D. 10/28/2019 E11.9 Type 2 diabetes mellitus without Trinity Puentes M.D. complications 09/05/2019 I50.40 Unspecified combined systolic Tomas Grimaldo DO [facility] (congestive) and diastolic (congestive) heart failure 09/05/2019 E11.69 Type 2 diabetes mellitus with other Tomas Grimaldo, DO [facility] specified complication 09/05/2019 I73.9 Peripheral vascular disease, Tomas Grimaldo DO [facility] unspecified 09/05/2019 I10 Essential (primary) hypertension Tomas Grimaldo DO [facility] 09/05/2019 E78.5 Hyperlipidemia, unspecified Tomas Grimaldo DO [facility] 09/05/2019 F17.201 Nicotine dependence, unspecified, in Tomas Grimaldo DO [facility] remission 09/05/2019 I45.19 Other right bundle-branch block Tomas Grimaldo DO [facility] 09/05/2019 I63.9 Cerebral infarction, unspecified Tomas Grimaldo DO [facility] 09/05/2019 N18.9 Chronic kidney disease, unspecified Tomas Grimaldo DO [facility] 09/05/2019 Z95.2 Presence of prosthetic heart valve Tomas Grimaldo DO [facility] 09/05/2019 J44.9 Chronic obstructive pulmonary Tomas S. Grimaldo, DO FACC disease, unspecified 08/30/2019 R07.9 Chest pain, unspecified Tomas Navarrete Grimaldo, DO FACC 08/29/2019 I95.9 Hypotension, unspecified Tomas S. Grimaldo, DO FACC 08/29/2019 I95.9 Hypotension, unspecified Ica ECHO Schedule 07/21/2019 I95.9 Hypotension, unspecified Tomas Navarrete Grimaldo, DO FACC 07/21/2019 R07.9 Chest pain, unspecified Tomas Navarrete Grimaldo, DO FACC 07/21/2019 I50.40 Unspecified combined systolic Tomas Grimlado, DO FACC (congestive) and diastolic (congestive) heart failure 07/21/2019 I73.9 Peripheral vascular disease, Tomas Grimaldo, DO FACC unspecified 07/21/2019 E11.69 Type 2 diabetes mellitus with other Tomas Grimaldo, DO FACC specified complication 07/21/2019 I10 Essential (primary) hypertension Tomas Grimaldo, DO FACC 07/21/2019 E78.5 Hyperlipidemia, unspecified Tomas Grimaldo, DO FACC 07/21/2019 F17.201 Nicotine dependence, unspecified, in Tomasnicole Navarrete Grimaldo, DO FACC remission 07/21/2019 I45.19 Other right bundle-branch block Tomas Grimaldo, DO FACC 07/21/2019 N18.9 Chronic kidney disease, unspecified Tmoas Grimaldo, DO FACC 07/21/2019 I63.9 Cerebral infarction, unspecified Tomas Grimaldo, DO FACC 07/21/2019 J44.9 Chronic obstructive pulmonary Tomas Grimaldo, DO FACC disease, unspecified Plan of Treatment Future Appointment(s):01/19/2020 11:00 am - Winifred Ahumada MD at [facility]02/13/2020 11:00 am - Hector Ramírez MD at [facility]03/05/2020 10:20 am - Tomas Grimaldo DO FACC at [facility]12/05/2019 - Tomas Grimaldo DO FACCI50.9 Heart failure, dljhjcachttV43.119 Atherosclerotic heart disease of [place] coronary artery with unspecified angina awrxerlkZ80.65 Type 2 diabetes mellitus with wiccmbthmgixfA79.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 multinodular goiter without thyrotoxic crisis or cccnsQ02.1 Presence of aortocoronary bypass rbqfxM02 Essential (primary) gnvcutvsbllcV00.9 Chronic obstructive pulmonary disease, peggozwrvdnF66.9 Peripheral vascular disease, vxpcltnmrvtE07.201 Nicotine dependence, unspecified, in dzgqxhnkmK66.19 Other right bundle-branch bkhhrZ76.9 Cerebral infarction, rtlnefwejzcW12.9 Chronic kidney disease, acltmytpyliG60.2 Presence of prosthetic heart bvfskO96.2 Old myocardial dvdrdvtsekS96.5 Ischemic cardiomyopathy Functional Status Description No Information Available Mental Status Description No Information Available Referrals Refer to Dr Reason for Referral Status Appt Date Uri Wallace DPM diabetic neuropathy Sent [address] [place] [address] [phone]
--- OUTSIDE RECORDS SUMMARY | 2020-01-23 03:37 | XMS REPORT | Continuity of Care Document ---
:1965 External Reference #:[id number] Author Name Uri Wallace DPM (transmitted by agent of provider Filomena Gunter) Address [address] [place] [id number] Care Team Providers Name Role Phone Jamaal Garcia Care Team Information Outpatient Psychiatrist [phone] Problems Active Problems Provider Date Mixed hyperlipidemia Uri Wallace DPM Onset: 01/10/2020 Benign essential hypertension Uri Wallace DPM Onset: 01/10/2020 Social History Type Date Description Comments Sex Unknown Tobacco Use Start: Unknown End: Quit Unknown ETOH Use Denies alcohol use Tobacco Use Start: Unknown End: Patient is a former Unknown smoker Recreational Drug Use Denies Drug Use Tobacco Use Start: Unknown Heavy tobacco smoker smoked 42 years at (more than 10 2-3 ppd cigarettes/day) Smoking Status Reviewed: 01/10/20 Heavy tobacco smoker smoked 42 years at (more than 10 2-3 ppd cigarettes/day) Exercise Type/Frequency Does not exercise Allergies, Adverse Reactions, Alerts Active Allergies Reaction Severity Comments Date Levofloxacin Nausea and Vomiting 11/07/2019 Metformin Diarrhea 11/07/2019 Ondansetron 11/07/2019 Medications Active Medications SIG Qnty Indications Ordering Date Provider Losartan Potassium 1 by mouth every 90tabs I50.22 Tomas Grimaldo 2018 25mg day Tablets Nitroglycerin 1 sl q5mins x3 25tabs R07.9 Tomas Grimaldo 07/21/2019 0.4mg as needed for Tablets Sub chest pain Furosemide 1 by mouth every Tomas Grimaldo 06/27/2019 40mg Tablets day Jardiance 10mg by mouth 30tabs Hector Ramírez 12/07/2018 10mg Tablets daily MD Atorvastatin Calcium 1 by mouth every 90tabs E78.5 Tomas Grimaldo 2016 80mg day Tablets Gabapentin 1 by mouth once Unknown 300mg Capsules a day, as needed Aspir-Low 1 by mouth every Unknown 81mg Tablets DR day Humalog 10 units with Unknown 100Unit/ML meals- plus Solution Cartridge sliding scale Stool Softener take 1 tab by 120caps Tomas Grimaldo 100mg mouth 2 times a Capsules day as needed Carvedilol 1 by mouth twice Unknown 12.5mg Tablets a day Tums 2 as needed for Unknown 500mg Chewtabs acid stomach Acetaminophen ER 1 by mouth twice Unknown 650mg a day prn Tablets ER Pantoprazole Sodium 1 by mouth every Unknown 40mg day Solution Rec Levemir Flextouch 80 units every Unknown morning 100Unit/ML Solution Pen-Inject Incruse Ellipta inhale one puff Unknown by mouth every 62.5mcg/Inh Aerosol day Albuterol Sulfate HFA every 4 hours as Unknown needed 108(90Base) mcg/Act Aerosol Methimazole 5mg by mouth Unknown 5mg Tablets once daily Brilinta 1 tab by mouth Unknown 90mg Tablets twice a day Immunizations Description No Information Available Vital Signs Date Vital Result Comment 01/10/2020 1:11pm BP Systolic 119 mmHg BP Diastolic 80 mmHg Body Temperature 97.9 F Heart Rate 74 /min Height 63 inches 5'3" Weight 202.00 lb BMI (Body Mass Index) 35.8 kg/m2 BSA (Body Surface Area) 1.94 m2 Ware body weight in kilograms 52 kg O2 % BldC Oximetry 93 % Results Description No Information Available Procedures Description No Information Available Medical Devices Description No Information Available Encounters Description No Information Available Assessments Description No Information Available Plan of Treatment No Information Available Functional Status Functional Condition Comment Date Status Glasses Active Rolling walker is used to ambulate Active Manual wheelchair is used to ambulate Active Mental Status Description No Information Available Referrals Description No Information Available
--- OUTSIDE RECORDS SUMMARY | 2020-01-23 03:37 | XMS REPORT | Continuity of Care Document ---
:1965 External Reference #:[id number] Author Name Vick Thompson MD Address [address] [place] [id number] Care Team Providers Name Role Phone Jamaal GarciaDO Care Team Information Neonatal Surgeon [phone] Problems Active Problems Provider Date Long-term current [...] Medications SIG Qnty Indications Ordering Date Provider Gabapentin Twice Daily 60caps Unknown 12/22/2019 300mg Capsules Esomeprazole Twice Daily 60caps Unknown 12/22/[address] Guerin Every Day Unknown 12/20/2019 10mg Tablets Famotidine Twice Daily Unknown 12/20/2019 40mg Tablets Loperamide HCL .See Directions Unknown 12/11/2019 2mg Capsules Nitroglycerin Q5M 30tabs Unknown 12/11/2019 0.4mg Tablets Sub Sterile Water For 2100 Unknown 12/11/2019 Injection Solution Levemir Flextouch Twice Daily 0units Unknown 12/11/2019 100Unit/ML Solution Pen-Inject Losartan Potassium Every Day Unknown 11/26/2019 25mg Tablets Carvedilol Twice Daily 120tabs Unknown 11/26/2019 6.25mg Tablets Furosemide Every Day 37tabs Unknown 11/26/2019 40mg Tablets Sucralfate Before Meals And Unknown 11/23/2019 1gm Tablets AT Bedtime Sucralfate take 1 tablet by 120tabs Vick Franco. 11/14/2019 1gm Tablets mouth before meals MD Donna and at bedtime [id number]/Electrolytes by mouth as 4000ml K62.5 Vick D. 11/14/2019 directed MD Donna 236gm Solution Rec Brilinta Twice Daily 60tabs Unknown 10/30/2019 90mg Tablets Methimazole Every Day 30tabs Unknown 10/30/2019 5mg Tablets Insulin Lispro (1 Before Meals 1units Unknown 10/30/2019 Unit Dial) 100Unit/ML Solution Pen-Inject Novolog Flexpen 10 units before 45units E11.69 Jamaal Garcia D 10/12/2019 dinner O 100Unit/ML Solution Pen-Inject Ventolin Q6H Unknown 09/15/2019 90mcg/Act Aerosol Aspirin 81 Low Dose Every Day Unknown 09/15/2019 81mg Chewtabs Novolog Mix 70/30 30u in in the 45units E11.69 Jamaal Garcia D 09/08/2019 Prefilled Flexpen morning O (70-30)100Unit/ML Supn Incruse Ellipta 1 puff once daily 30units J44.9 Jamaal Garcia D 05/14/2019 O 62.5mcg/Inh Aerosol Albuterol Sulfate HFA 1-2 puffs as Unknown 05/14/2019 directed as needed 108(90Base) mcg/Act Aerosol Levemir Flextouch inject 45 units 45units E11.69 Jamaal Garcia D 2018 bid O 100Unit/ML Solution Pen-Inject Jardiance Take 1 tablet by 90tabs E11.65 Jamaal Garcia D 02/01/2019 10mg Tablets mouth daily for O Type 2 diabetes Pantoprazole Sodium Take One Tablet By 60tabs Jamaal Garcia D 05/26/2018 Mouth Twice A Day O 40mg Tablets DR Atorvastatin Calcium 1 by mouth every Unknown 08/20/2017 evening 80mg Tablets Furosemide Take Two Tablets 180tabs Jamaal Garcia D 08/20/2017 20mg Tablets By Mouth Every Day O Carvedilol Take One Tablet By 180tabs Jamaal Garcia D 08/05/2017 6.25mg Mouth Twice A Day O Tablets Novolog Flexpen 15 units before 45units E11.69 Jamaal Garcia D 04/29/2017 each meal or per O 100Unit/ML Solution sliding scale Pen-Inject Losartan Potassium Take One Tablet By Tomas Grimaldo MD 25mg Mouth Every Tablets Morning For Diabetic Kidney Protection Brilinta Take One Tablet By Unknown 90mg Tablets Mouth Twice A Day Methimazole Take One Tablet By Unknown 5mg Tablets Mouth Every Day History Medications Levemir Flextouch Every Day 0units Unknown 12/11/2019 - 12/11/2019 100Unit/ML Solution Pen-Inject Levemir Flextouch Before Meals And Unknown 12/10/2019 - AT Bedtime 12/11/2019 100Unit/ML Solution Pen-Inject Furosemide Every Day Unknown 11/26/2019 - 20mg Tablets 11/26/2019 Colyte With Flavor by mouth as 4000ml K62.5 Vick DWilfredo 11/14/2019 - Packs directed MD Donna 11/14/2019 240gm Solution Rec Carvedilol Twice Daily Unknown 10/30/2019 - 6.25mg 11/26/2019 Tablets Levemir Flextouch Every Morning 0units Unknown 10/30/2019 - 12/10/2019 100Unit/ML Solution Pen-Inject Losartan Potassium Every Morning 0tabs Unknown 10/30/2019 - 25mg 11/23/2019 Tablets Carvedilol Twice Daily Unknown 09/15/2019 - 3.125mg 10/30/2019 Tablets Jardiance Every Day Unknown 09/15/2019 - 10mg Tablets 10/30/2019 Levemir Flextouch Every Morning Unknown 09/15/2019 - 10/30/2019 100Unit/ML Solution Pen-Inject Pantoprazole Sodium Twice Daily Unknown 09/15/2019 - 12/22/[address] Maynard Description No Information Available Vital Signs Date [...] Mass Index) 30.5 kg/m2 Results Test Acquired Facility Test Result H/L Range Note Date Whole blood glucose 12/22/2019 N2N/CCD Import Whole blood 186 mg/dL 70- 100 measurement glucose (mass/volume) measurement (mass/volume) Serum or plasma 12/21/2019 N2N/CCD Import Serum or plasma 139 135-145 sodium measurement sodium measurement mmol/L (moles/volume) (moles/volume) Serum or plasma 12/21/2019 N2N/CCD Import Serum or plasma 3.8 3.5-5.0 potassium potassium mmol/L measurement measurement (moles/volum (moles/volume) Serum or plasma 12/21/2019 N2N/CCD Import Serum or plasma 105 101-111 chloride chloride mmol/L measurement measurement (moles/volume (moles/volume) Serum or plasma 12/21/2019 N2N/CCD Import Serum or plasma 23 mmol/L 22- 32 carbon dioxide, carbon dioxide, total measurement total measurement (moles/volume) Serum or plasma 12/21/2019 N2N/CCD Import Serum or plasma 11 mmol/L 2- 11 anion gap anion gap Serum glucose 12/21/2019 N2N/CCD Import Serum glucose 101 mg/dL 70-100 measurement measurement (mass/volume) (mass/volume) Serum or plasma 12/21/2019 N2N/CCD Import Serum or plasma 54 mg/dL 6-24 urea nitrogen urea nitrogen measurement measurement (mass/vo (mass/volume) Serum or plasma 12/21/2019 N2N/CCD Import Serum or plasma 1.49 0.51-0. creatinine creatinine mg/dL 95 measurement measurement (mass/volum (mass/volume) Serum or plasma 12/21/2019 N2N/CCD Import Serum or plasma 36.2 8-20 urea urea nitrogen/creatinine nitrogen/creatinin ratio e ratio Serum or plasma 12/21/2019 N2N/CCD Import Serum or plasma 9.9 mg/dL 8.6- 10. calcium measurement calcium 3 (mass/volume) measurement (mass/volume) Serum total protein 12/21/2019 N2N/CCD Import Serum total 7.6 g/dL 6.4- 8.9 measurement protein (mass/volume) measurement (mass/volume) Serum or plasma 12/21/2019 N2N/CCD Import Serum or plasma 4.1 g/dL 3.2- 5.2 albumin measurement albumin by bromocresol measurement by bromocresol green (BCG) dye binding method (ma Lab Results 12/21/2019 N2N/CCD Import Globulin 3.5 g/dL 2-4 Serum or plasma 12/21/2019 N2N/CCD Import Serum or plasma 1.2 1-3 albumin/globulin albumin/globulin mass ratio mass ratio Serum or plasma 12/21/2019 N2N/CCD Import Serum or plasma 0.50 0.2-1.0 total bilirubin total bilirubin mg/dL measurement (mass/ measurement (mass/volume) Serum or plasma 12/21/2019 N2N/CCD Import Serum or plasma 1.9 0.5-2.0 lactate measurement lactate mmol/L (moles/volume) measurement (moles/volume) Serum or plasma 12/21/2019 N2N/CCD Import Serum or plasma 155 U/L 34- 104 alkaline alkaline phosphatase phosphatase measurement ( measurement (enzymatic activity/volume) Serum or plasma 12/21/2019 N2N/CCD Import Serum or plasma 12 U/L 7-52 alanine alanine aminotransferase aminotransferase measureme measurement (enzymatic activity/volume) Serum or plasma 12/21/2019 N2N/CCD Import Serum or plasma 11 U/L 13-39 aspartate aspartate aminotransferase aminotransferase measure measurement (enzymatic activity/volume) Serum or plasma 12/21/2019 N2N/CCD Import Serum or plasma 17 U/L 11.0- 82 lipase measurement lipase measurement .0 (enzymatic acti (enzymatic activity/volume) Estimated 12/21/2019 N2N/CCD Import Estimated 36.3 glomerular glomerular filtration rate filtration rate (GFR) non-Afr (GFR) non- Lab Results 12/21/2019 N2N/CCD Import Estimated GFR 44.0 () Serum or plasma 12/21/2019 N2N/CCD Import Serum or plasma 0.42 0.34-5. thyroid stimulating thyroid mcIU/mL 60 hormone (TSH) stimulating hormone (TSH) measurement (units/volume) Serum or plasma C 12/21/2019 N2N/CCD Import Serum or plasma C 8.07 mg/L 0-8.00 reactive protein reactive protein measurement (ma measurement (mass/volume) Glucose 12/21/2019 N2N/CCD Import Glucose 374 mg/dL 70-100 [Mass/volume] in [Mass/volume] in Serum, Plasma or Serum, Plasma or Blood Blood Laboratory test 12/21/2019 [facility] [place] Surgical Pathology SEE 1 finding Order RESULT BELOW Serum or plasma 12/21/2019 N2N/CCD Import Serum or plasma 0.07 troponin i.cardiac troponin i.cardiac ng/mL measurement (ma measurement (mass/volume) Automated blood 12/21/2019 N2N/CCD Import Automated blood 10.3 3.5-10. leukocytes count leukocytes count 10^3/uL 8 corrected for nuc corrected for nucleated erythrocytes (number/volume) Automated blood 12/21/2019 N2N/CCD Import Automated blood 4.17 3.70-4. erythrocyte count erythrocyte count 10^6/uL 87 (number/volume) (number/volume) Blood hemoglobin 12/21/2019 N2N/CCD Import Blood hemoglobin 11.8 g/dL 12.0-16 measurement measurement .0 (mass/volume) (mass/volume) Automated blood 12/21/2019 N2N/CCD Import Automated blood 35 % 35-47 hematocrit hematocrit (percentage) (percentage) Automated 12/21/2019 N2N/CCD Import Automated 85 fL 80-97 erythrocyte mean erythrocyte mean corpuscular volume corpuscular volume Automated 12/21/2019 N2N/CCD Import Automated 28 pg 27-31 erythrocyte mean erythrocyte mean corpuscular corpuscular hemoglobin hemoglobin (mass per erythrocyte) Automated 12/21/2019 N2N/CCD Import Automated 33 g/dL 31-36 erythrocyte mean erythrocyte mean corpuscular corpuscular hemoglobin hemoglobin concentration measurement (mass/vol Automated 12/21/2019 N2N/CCD Import Automated 17 % 10-15 erythrocyte erythrocyte distribution width distribution width ratio ratio Automated blood 12/21/2019 N2N/CCD Import Automated blood 315 150-450 platelet count platelet count 10^3/uL (number/volume) (number/volume) Automated blood 12/21/2019 N2N/CCD Import Automated blood 0.0 nucleated nucleated erythrocytes erythrocytes detection detection Automated blood 12/21/2019 N2N/CCD Import Automated blood 0.6 % basophils/100 basophils/100 leukocytes leukocytes Automated blood 12/21/2019 N2N/CCD Import Automated blood 2.1 % eosinophils/100 eosinophils/100 leukocytes leukocytes Automated blood 12/21/2019 N2N/CCD Import Automated blood 5.2 % monocytes/100 monocytes/100 leukocytes leukocytes Automated blood 12/21/2019 N2N/CCD Import Automated blood 12.1 % lymphocytes/100 lymphocytes/100 leukocytes leukocytes Automated blood 12/21/2019 N2N/CCD Import Automated blood 80.0 % neutrophils/100 neutrophils/100 leukocytes leukocytes Blood nucleated 12/21/2019 N2N/CCD Import Blood nucleated 0.0 erythrocytes erythrocytes 10^3/ul automated count automated count (numb (number/volume) Automated blood 12/21/2019 N2N/CCD Import Automated blood 0.1 0-0.2 basophil count basophil count 10^3/ul (number/volume) (number/volume) Automated blood 12/21/2019 N2N/CCD Import Automated blood 0.2 0-0.6 eosinophil count eosinophil count 10^3/ul (number/volume) (number/volume) Blood monocytes 12/21/2019 N2N/CCD Import Blood monocytes 0.5 0-0.8 automated count automated count 10^3/ul (number/volume) (number/volume) Blood lymphocytes 12/21/2019 N2N/CCD Import Blood lymphocytes 1.2 1.0- 4.8 automated count automated count 10^3/ul (number/volume) (number/volume) Lymphocyte 12/21/2019 N2N/CCD Import Lymphocyte 8.2 1.5-7.7 proliferation test proliferation test 10^3/ul Automated blood 12/21/2019 N2N/CCD Import Automated blood 8.3 fL 7.4- 10. platelet mean platelet mean 4 volume measurement volume measurement Serum or plasma 12/11/2019 N2N/CCD Import Serum or plasma 2.03 0.51-0. creatinine creatinine mg/dL 95 measurement measurement (mass/volum (mass/volume) Serum or plasma 12/11/2019 N2N/CCD Import Serum or plasma 48 mg/dL 6-24 urea nitrogen urea nitrogen measurement measurement (mass/vo (mass/volume) Serum glucose 12/11/2019 N2N/CCD Import Serum glucose 167 mg/dL 70-100 measurement measurement (mass/volume) (mass/volume) Serum or plasma 12/11/2019 N2N/CCD Import Serum or plasma 10 mmol/L 2- 11 anion gap anion gap Serum or plasma 12/11/2019 N2N/CCD Import Serum or plasma 22 mmol/L 22- 32 carbon dioxide, carbon dioxide, total measurement total measurement (moles/volume) Serum or plasma 12/11/2019 N2N/CCD Import Serum or plasma 103 101-111 chloride chloride mmol/L measurement measurement (moles/volume (moles/volume) Serum or plasma 12/11/2019 N2N/CCD Import Serum or plasma 3.9 3.5-5.0 potassium potassium mmol/L measurement measurement (moles/volum (moles/volume) Serum or plasma 12/11/2019 N2N/CCD Import Serum or plasma 135 135-145 sodium measurement sodium measurement mmol/L (moles/volume) (moles/volume) Automated blood 12/11/2019 N2N/CCD Import Automated blood 0.1 nucleated nucleated erythrocytes erythrocytes detection detection Automated blood 12/11/2019 N2N/CCD Import Automated blood 0.7 % basophils/100 basophils/100 leukocytes leukocytes Serum or plasma 12/11/2019 N2N/CCD Import Serum or plasma 23.6 8-20 urea urea nitrogen/creatinine nitrogen/creatinin ratio e ratio Serum or plasma 12/11/2019 N2N/CCD Import Serum or plasma 8.8 mg/dL 8.6- 10. calcium measurement calcium 3 (mass/volume) measurement (mass/volume) Serum or plasma 12/11/2019 N2N/CCD Import Serum or plasma 2.4 mg/dL 1.9- 2.7 magnesium magnesium measurement measurement (mass/volume (mass/volume) Serum or plasma 12/11/2019 N2N/CCD Import Serum or plasma 155 mg/dL triglyceride triglyceride measurement measurement (mass/vol (mass/volume) Serum or plasma 12/11/2019 N2N/CCD Import Serum or plasma 83 mg/dL cholesterol cholesterol measurement measurement (mass/volu (mass/volume) Serum or plasma 12/11/2019 N2N/CCD Import Serum or plasma 32.9 high density high density mg/dL lipoprotein (HDL) lipoprotein (HDL) cho cholesterol measurement Serum or plasma 12/11/2019 N2N/CCD Import Serum or plasma 0.01 troponin i.cardiac troponin i.cardiac ng/mL measurement (ma measurement (mass/volume) Estimated 12/11/2019 N2N/CCD Import Estimated 25.4 glomerular glomerular filtration rate filtration rate (GFR) non-Afr (GFR) non- Lab Results 12/11/2019 N2N/CCD Import Estimated GFR 30.8 () Serum or plasma low 12/11/2019 N2N/CCD Import Serum or plasma 19 mg/dL density lipoprotein low density (LDL) chol lipoprotein (LDL) cholesterol measurement (mass/volume) Whole blood glucose 12/11/2019 N2N/CCD Import Whole blood 253 mg/dL 70- 100 measurement glucose (mass/volume) measurement (mass/volume) Automated blood 12/11/2019 N2N/CCD Import Automated blood 8.8 3.5-10. leukocytes count leukocytes count 10^3/uL 8 corrected for nuc corrected for nucleated erythrocytes (number/volume) Automated blood 12/11/2019 N2N/CCD Import Automated blood 3.70 3.70-4. erythrocyte count erythrocyte count 10^6/uL 87 (number/volume) (number/volume) Blood hemoglobin 12/11/2019 N2N/CCD Import Blood hemoglobin 10.6 g/dL 12.0-16 measurement measurement .0 (mass/volume) (mass/volume) Automated blood 12/11/2019 N2N/CCD Import Automated blood 32 % 35-47 hematocrit hematocrit (percentage) (percentage) Automated 12/11/2019 N2N/CCD Import Automated 86 fL 80-97 erythrocyte mean erythrocyte mean corpuscular volume corpuscular volume Automated 12/11/2019 N2N/CCD Import Automated 29 pg 27-31 erythrocyte mean erythrocyte mean corpuscular corpuscular hemoglobin hemoglobin (mass per erythrocyte) Automated 12/11/2019 N2N/CCD Import Automated 33 g/dL 31-36 erythrocyte mean erythrocyte mean corpuscular corpuscular hemoglobin hemoglobin concentration measurement (mass/vol Automated 12/11/2019 N2N/CCD Import Automated 17 % 10-15 erythrocyte erythrocyte distribution width distribution width ratio ratio Automated blood 12/11/2019 N2N/CCD Import Automated blood 305 150-450 platelet count platelet count 10^3/uL (number/volume) (number/volume) Automated blood 12/11/2019 N2N/CCD Import Automated blood 7.8 fL 7.4- 10. platelet mean platelet mean 4 volume measurement volume measurement Lymphocyte 12/11/2019 N2N/CCD Import Lymphocyte 6.5 1.5-7.7 proliferation test proliferation test 10^3/ul Blood lymphocytes 12/11/2019 N2N/CCD Import Blood lymphocytes 1.5 1.0- 4.8 automated count automated count 10^3/ul (number/volume) (number/volume) Blood monocytes 12/11/2019 N2N/CCD Import Blood monocytes 0.6 0-0.8 automated count automated count 10^3/ul (number/volume) (number/volume) Automated blood 12/11/2019 N2N/CCD Import Automated blood 0.2 0-0.6 eosinophil count eosinophil count 10^3/ul (number/volume) (number/volume) Automated blood 12/11/2019 N2N/CCD Import Automated blood 0.1 0-0.2 basophil count basophil count 10^3/ul (number/volume) (number/volume) Blood nucleated 12/11/2019 N2N/CCD Import Blood nucleated 0.0 erythrocytes erythrocytes 10^3/ul automated count automated count (numb (number/volume) Automated blood 12/11/2019 N2N/CCD Import Automated blood 73.6 % neutrophils/100 neutrophils/100 leukocytes leukocytes Automated blood 12/11/2019 N2N/CCD Import Automated blood 16.7 % lymphocytes/100 lymphocytes/100 leukocytes leukocytes Automated blood 12/11/2019 N2N/CCD Import Automated blood 6.4 % monocytes/100 monocytes/100 leukocytes leukocytes Automated blood 12/11/2019 N2N/CCD Import Automated blood 2.6 % eosinophils/100 eosinophils/100 leukocytes leukocytes Serum or plasma 12/10/2019 N2N/CCD Import Serum or plasma 1.38 0.34-5. thyroid stimulating thyroid mcIU/mL 60 hormone (TSH) stimulating hormone (TSH) measurement (units/volume) Serum or plasma 12/10/2019 N2N/CCD Import Serum or plasma 226 pg/mL < 100 natriuretic peptide natriuretic B measurement peptide B measurement (mass/volume) Serum or plasma 12/10/2019 N2N/CCD Import Serum or plasma 22 U/L 11.0- 82 lipase measurement lipase measurement .0 (enzymatic acti (enzymatic activity/volume) Serum or plasma 12/10/2019 N2N/CCD Import Serum or plasma 11 U/L 13-39 aspartate aspartate aminotransferase aminotransferase measure measurement (enzymatic activity/volume) Serum or plasma 12/10/2019 N2N/CCD Import Serum or plasma 12 U/L 7-52 alanine alanine aminotransferase aminotransferase measureme measurement (enzymatic activity/volume) Serum or plasma 12/10/2019 N2N/CCD Import Serum or plasma 168 U/L 34- 104 alkaline alkaline phosphatase phosphatase measurement ( measurement (enzymatic activity/volume) Serum or plasma 12/10/2019 N2N/CCD Import Serum or plasma 0.60 0.2-1.0 total bilirubin total bilirubin mg/dL measurement (mass/ measurement (mass/volume) Serum or plasma 12/10/2019 N2N/CCD Import Serum or plasma 1.1 1-3 albumin/globulin albumin/globulin mass ratio mass ratio Lab Results 12/10/2019 N2N/CCD Import Globulin 4.0 g/dL 2-4 Serum or plasma 12/10/2019 N2N/CCD Import Serum or plasma 4.3 g/dL 3.2- 5.2 albumin measurement albumin by bromocresol measurement by bromocresol green (BCG) dye binding method (nj Serum total protein 12/10/2019 N2N/CCD Import Serum total 8.3 g/dL 6.4- 8.9 measurement protein (mass/volume) measurement (mass/volume) Serum or plasma 12/07/2019 N2N/CCD Import Serum or plasma 4.2 g/dL 3.2- 5.2 albumin measurement albumin by bromocresol measurement by bromocresol green (BCG) dye binding method (nj Serum total protein 12/07/2019 N2N/CCD Import Serum total 7.3 g/dL 6.4- 8.9 measurement protein (mass/volume) measurement (mass/volume) Serum or plasma 12/07/2019 N2N/CCD Import Serum or plasma 9.4 mg/dL 8.6- 10. calcium measurement calcium 3 (mass/volume) measurement (mass/volume) Serum or plasma 12/07/2019 N2N/CCD Import Serum or plasma 28.0 8-20 urea urea nitrogen/creatinine nitrogen/creatinin ratio e ratio Serum or plasma 12/07/2019 N2N/CCD Import Serum or plasma 1.50 0.51-0. creatinine creatinine mg/dL 95 measurement measurement (mass/volum (mass/volume) Serum or plasma 12/07/2019 N2N/CCD Import Serum or plasma 42 mg/dL 6-24 urea nitrogen urea nitrogen measurement measurement (mass/vo (mass/volume) Serum glucose 12/07/2019 N2N/CCD Import Serum glucose 218 mg/dL 70-100 measurement measurement (mass/volume) (mass/volume) Serum or plasma 12/07/2019 N2N/CCD Import Serum or plasma 12 mmol/L 2- 11 anion gap anion gap Serum or plasma 12/07/2019 N2N/CCD Import Serum or plasma 24 mmol/L 22- 32 carbon dioxide, carbon dioxide, total measurement total measurement (moles/volume) Serum or plasma 12/07/2019 N2N/CCD Import Serum or plasma 103 101-111 chloride chloride mmol/L measurement measurement (moles/volume (moles/volume) Serum or plasma 12/07/2019 N2N/CCD Import Serum or plasma 4.5 3.5-5.0 potassium potassium mmol/L measurement measurement (moles/volum (moles/volume) Lab Results 12/07/2019 N2N/CCD Import Globulin 3.1 g/dL 2-4 Serum or plasma 12/07/2019 N2N/CCD Import Serum or plasma 1.4 1-3 albumin/globulin albumin/globulin mass ratio mass ratio Serum or plasma 12/07/2019 N2N/CCD Import Serum or plasma 0.50 0.2-1.0 total bilirubin total bilirubin mg/dL measurement (mass/ measurement (mass/volume) Serum or plasma 12/07/2019 N2N/CCD Import Serum or plasma 146 U/L 34- 104 alkaline alkaline phosphatase phosphatase measurement ( measurement (enzymatic activity/volume) Serum or plasma 12/07/2019 N2N/CCD Import Serum or plasma 10 U/L 7-52 alanine alanine aminotransferase aminotransferase measureme measurement (enzymatic activity/volume) Serum or plasma 12/07/2019 N2N/CCD Import Serum or plasma 10 U/L 13-39 aspartate aspartate aminotransferase aminotransferase measure measurement (enzymatic activity/volume) Estimated 12/07/2019 N2N/CCD Import Estimated 36.1 glomerular glomerular filtration rate filtration rate (GFR) non-Afr (GFR) non- Lab Results 12/07/2019 N2N/CCD Import Estimated GFR 43.6 () Serum or plasma 12/07/2019 N2N/CCD Import Serum or plasma 1.06 0.61-1. thyroxine (T4) free thyroxine (T4) ng/dL 12 measurement (m free measurement (mass/volume) Serum or plasma 12/07/2019 N2N/CCD Import Serum or plasma 137 ng/dL 87- 178 triiodothyronine triiodothyronine (T3) measurement (T3) measurement (mass/volume) Serum or plasma 12/07/2019 N2N/CCD Import Serum or plasma 0.69 0.34-5. thyroid stimulating thyroid mcIU/mL 60 hormone (TSH) stimulating hormone (TSH) measurement (units/volume) Automated blood 12/07/2019 N2N/CCD Import Automated blood 11.1 3.5-10. leukocytes count leukocytes count 10^3/uL 8 corrected for nuc corrected for nucleated erythrocytes (number/volume) Automated blood 12/07/2019 N2N/CCD Import Automated blood 4.01 3.70-4. erythrocyte count erythrocyte count 10^6/uL 87 (number/volume) (number/volume) Blood hemoglobin 12/07/2019 N2N/CCD Import Blood hemoglobin 11.4 g/dL 12.0-16 measurement measurement .0 (mass/volume) (mass/volume) Automated blood 12/07/2019 N2N/CCD Import Automated blood 34 % 35-47 hematocrit hematocrit (percentage) (percentage) Automated 12/07/2019 N2N/CCD Import Automated 86 fL 80-97 erythrocyte mean erythrocyte mean corpuscular volume corpuscular volume Automated 12/07/2019 N2N/CCD Import Automated 28 pg 27-31 erythrocyte mean erythrocyte mean corpuscular corpuscular hemoglobin hemoglobin (mass per erythrocyte) Automated 12/07/2019 N2N/CCD Import Automated 33 g/dL 31-36 erythrocyte mean erythrocyte mean corpuscular corpuscular hemoglobin hemoglobin concentration measurement (mass/vol Automated 12/07/2019 N2N/CCD Import Automated 16 % 10-15 erythrocyte erythrocyte distribution width distribution width ratio ratio Automated blood 12/07/2019 N2N/CCD Import Automated blood 366 150-450 platelet count platelet count 10^3/uL (number/volume) (number/volume) Automated blood 12/07/2019 N2N/CCD Import Automated blood 7.7 fL 7.4- 10. platelet mean platelet mean 4 volume measurement volume measurement CT biopsy liver 12/07/2019 N2N/CCD Import CT biopsy liver 9.1 1.5-7.7 10^3/ul Serum or plasma 12/07/2019 N2N/CCD Import Serum or plasma 139 135-145 sodium measurement sodium measurement mmol/L (moles/volume) (moles/volume) Automated blood 12/07/2019 N2N/CCD Import Automated blood 0.0 nucleated nucleated erythrocytes erythrocytes detection detection Automated blood 12/07/2019 N2N/CCD Import Automated blood 0.5 % basophils/100 basophils/100 leukocytes leukocytes Automated blood 12/07/2019 N2N/CCD Import Automated blood 2.0 % eosinophils/100 eosinophils/100 leukocytes leukocytes Automated blood 12/07/2019 N2N/CCD Import Automated blood 4.7 % monocytes/100 monocytes/100 leukocytes leukocytes Automated blood 12/07/2019 N2N/CCD Import Automated blood 11.0 % lymphocytes/100 lymphocytes/100 leukocytes leukocytes Automated blood 12/07/2019 N2N/CCD Import Automated blood 81.8 % neutrophils/100 neutrophils/100 leukocytes leukocytes Blood nucleated 12/07/2019 N2N/CCD Import Blood nucleated 0.0 erythrocytes erythrocytes 10^3/ul automated count automated count (numb (number/volume) Automated blood 12/07/2019 N2N/CCD Import Automated blood 0.1 0-0.2 basophil count basophil count 10^3/ul (number/volume) (number/volume) Automated blood 12/07/2019 N2N/CCD Import Automated blood 0.2 0-0.6 eosinophil count eosinophil count 10^3/ul (number/volume) (number/volume) Blood monocytes 12/07/2019 N2N/CCD Import Blood monocytes 0.5 0-0.8 automated count automated count 10^3/ul (number/volume) (number/volume) Blood lymphocytes 12/07/2019 N2N/CCD Import Blood lymphocytes 1.2 1.0- 4.8 automated count automated count 10^3/ul (number/volume) (number/volume) Automated blood 11/26/2019 N2N/CCD Import Automated blood 13.9 % lymphocytes/100 lymphocytes/100 leukocytes leukocytes Automated blood 11/26/2019 N2N/CCD Import Automated blood 5.7 % monocytes/100 monocytes/100 leukocytes leukocytes Automated blood 11/26/2019 N2N/CCD Import Automated blood 2.0 % eosinophils/100 eosinophils/100 leukocytes leukocytes Automated blood 11/26/2019 N2N/CCD Import Automated blood 0.3 % basophils/100 basophils/100 leukocytes leukocytes Automated blood 11/26/2019 N2N/CCD Import Automated blood 0.0 nucleated nucleated erythrocytes erythrocytes detection detection Serum or plasma 11/26/2019 N2N/CCD Import Serum or plasma 135 135-145 sodium measurement sodium measurement mmol/L (moles/volume) (moles/volume) Serum or plasma 11/26/2019 N2N/CCD Import Serum or plasma 4.1 3.5-5.0 potassium potassium mmol/L measurement measurement (moles/volum (moles/volume) Serum or plasma 11/26/2019 N2N/CCD Import Serum or plasma 105 101-111 chloride chloride mmol/L measurement measurement (moles/volume (moles/volume) Serum or plasma 11/26/2019 N2N/CCD Import Serum or plasma 23 mmol/L 22- 32 carbon dioxide, carbon dioxide, total measurement total measurement (moles/volume) Serum or plasma 11/26/2019 N2N/CCD Import Serum or plasma 7 mmol/L 2-11 anion gap anion gap Serum glucose 11/26/2019 N2N/CCD Import Serum glucose 187 mg/dL 70-100 measurement measurement (mass/volume) (mass/volume) Serum or plasma 11/26/2019 N2N/CCD Import Serum or plasma 47 mg/dL 6-24 urea nitrogen urea nitrogen measurement measurement (mass/vo (mass/volume) Serum or plasma 11/26/2019 N2N/CCD Import Serum or plasma 1.45 0.51-0. creatinine creatinine mg/dL 95 measurement measurement (mass/volum (mass/volume) Serum or plasma 11/26/2019 N2N/CCD Import Serum or plasma 32.4 8-20 urea urea nitrogen/creatinine nitrogen/creatinin ratio e ratio Serum or plasma 11/26/2019 N2N/CCD Import Serum or plasma 8.5 mg/dL 8.6- 10. calcium measurement calcium 3 (mass/volume) measurement (mass/volume) Estimated 11/26/2019 N2N/CCD Import Estimated 37.5 glomerular glomerular filtration rate filtration rate (GFR) non-Afr (GFR) non- Lab Results 11/26/2019 N2N/CCD Import Estimated GFR 45.4 () Whole blood glucose 11/26/2019 N2N/CCD Import Whole blood 180 mg/dL 70- 100 measurement glucose (mass/volume) measurement (mass/volume) Automated blood 11/26/2019 N2N/CCD Import Automated blood 9.7 3.5-10. leukocytes count leukocytes count 10^3/uL 8 corrected for nuc corrected for nucleated erythrocytes (number/volume) Automated blood 11/26/2019 N2N/CCD Import Automated blood 3.50 3.70-4. erythrocyte count erythrocyte count 10^6/uL 87 (number/volume) (number/volume) Blood hemoglobin 11/26/2019 N2N/CCD Import Blood hemoglobin 10.1 g/dL 12.0-16 measurement measurement .0 (mass/volume) (mass/volume) Automated blood 11/26/2019 N2N/CCD Import Automated blood 30 % 35-47 hematocrit hematocrit (percentage) (percentage) Automated 11/26/2019 N2N/CCD Import Automated 85 fL 80-97 erythrocyte mean erythrocyte mean corpuscular volume corpuscular volume Automated 11/26/2019 N2N/CCD Import Automated 29 pg 27-31 erythrocyte mean erythrocyte mean corpuscular corpuscular hemoglobin hemoglobin (mass per erythrocyte) Automated 11/26/2019 N2N/CCD Import Automated 34 g/dL 31-36 erythrocyte mean erythrocyte mean corpuscular corpuscular hemoglobin hemoglobin concentration measurement (mass/vol Automated 11/26/2019 N2N/CCD Import Automated 16 % 10-15 erythrocyte erythrocyte distribution width distribution width ratio ratio Automated blood 11/26/2019 N2N/CCD Import Automated blood 78.1 % neutrophils/100 neutrophils/100 leukocytes leukocytes Blood nucleated 11/26/2019 N2N/CCD Import Blood nucleated 0.0 erythrocytes erythrocytes 10^3/ul automated count automated count (numb (number/volume) Automated blood 11/26/2019 N2N/CCD Import Automated blood 0.0 0-0.2 basophil count basophil count 10^3/ul (number/volume) (number/volume) Automated blood 11/26/2019 N2N/CCD Import Automated blood 0.2 0-0.6 eosinophil count eosinophil count 10^3/ul (number/volume) (number/volume) Blood monocytes 11/26/2019 N2N/CCD Import Blood monocytes 0.6 0-0.8 automated count automated count 10^3/ul (number/volume) (number/volume) Blood lymphocytes 11/26/2019 N2N/CCD Import Blood lymphocytes 1.3 1.0- 4.8 automated count automated count 10^3/ul (number/volume) (number/volume) CT biopsy liver 11/26/2019 N2N/CCD Import CT biopsy liver 7.6 1.5-7.7 10^3/ul Automated blood 11/26/2019 N2N/CCD Import Automated blood 8.1 fL 7.4- 10. platelet mean platelet mean 4 volume measurement volume measurement Automated blood 11/26/2019 N2N/CCD Import Automated blood 286 150-450 platelet count platelet count 10^3/uL (number/volume) (number/volume) Glucose 11/25/2019 N2N/CCD Import Glucose 283 mg/dL 70-100 [Mass/volume] in [Mass/volume] in Serum, Plasma or Serum, Plasma or Blood Blood Serum or plasma 11/25/2019 N2N/CCD Import Serum or plasma 0.02 troponin i.cardiac troponin i.cardiac ng/mL measurement (ma measurement (mass/volume) Activated partial 11/23/2019 N2N/CCD Import Activated partial 30.5 26.0- 38 thromboplastin time thromboplastin seconds .0 (aPTT) in pl time (aPTT) in platelet poor plasma by coagulation a Serum or plasma 11/23/2019 N2N/CCD Import Serum or plasma 443 pg/mL < 100 natriuretic peptide natriuretic B measurement peptide B measurement (mass/volume) Serum or plasma 11/23/2019 N2N/CCD Import Serum or plasma 14 U/L 13-39 aspartate aspartate aminotransferase aminotransferase measure measurement (enzymatic activity/volume) Serum or plasma 11/23/2019 N2N/CCD Import Serum or plasma 13 U/L 7-52 alanine alanine aminotransferase aminotransferase measureme measurement (enzymatic activity/volume) Serum or plasma 11/23/2019 N2N/CCD Import Serum or plasma 136 U/L 34- 104 alkaline alkaline phosphatase phosphatase measurement ( measurement (enzymatic activity/volume) Serum or plasma 11/23/2019 N2N/CCD Import Serum or plasma 0.70 0.2-1.0 total bilirubin total bilirubin mg/dL measurement (mass/ measurement (mass/volume) Serum or plasma 11/23/2019 N2N/CCD Import Serum or plasma 1.1 1-3 albumin/globulin albumin/globulin mass ratio mass ratio Lab Results 11/23/2019 N2N/CCD Import Globulin 3.5 g/dL 2-4 Serum or plasma 11/23/2019 N2N/CCD Import Serum or plasma 3.7 g/dL 3.2- 5.2 albumin measurement albumin by bromocresol measurement by bromocresol green (BCG) dye binding method (ma Serum total protein 11/23/2019 N2N/CCD Import Serum total 7.2 g/dL 6.4- 8.9 measurement protein (mass/volume) measurement (mass/volume) Serum or plasma 11/23/2019 N2N/CCD Import Serum or plasma 2.1 mg/dL 1.9- 2.7 magnesium magnesium measurement measurement (mass/volume (mass/volume) Whole blood 11/23/2019 N2N/CCD Import Whole blood 0.97 0.82-1. international international 09 normalized ratio normalized ratio (Inr) (Inr) Xray 09/15/2019 [facility] [place] Radiology CT, Abd & Pelvis <pending> W/ Contrast 1 SEE RESULT BELOW Name: GABRIEL ZAVALA : [address]: Trinity Puentes MD Acct: [id number] Unit: [id number] AGE: 54 Location: [place] [address] Re12/21/19 Dis: 12/22/19 SEX: F Status: DIS Ld SPEC: [id number] KYRA: 12/21/19- SUBM DR: Vick Thompson MD REQ: [id number] RECD: 12/22/19 STATUS: MOIZ GRIJALVA DR: Sinai Garcia DO _ ORDERED: LEVEL 4 FINAL DIAGNOSIS Gastroesophageal junction, biopsies: -- Gastroesophageal transition zone mucosa with mild nonspecific reactive changes. -- No specific features of reflux esophagitis identified. -- No goblet cell/intestinal metaplasia or dysplasia identified. CLINICAL HISTORY Screening/Surveillance for malignancy in asymptomatic patient POST-OPERATIVE DIAGNOSIS EGD: esophagus - biopsy for Nava's esophagus; gastric - normal; biopsy; mild gastritis; duodenum - normal GROSS DESCRIPTION The specimen is received in formalin labeled, [place] Biopsies, and consists of a 0.3 x 0.3 x 0.1 cm loaiza-white irregular soft tissue fragment which is submitted entirely in one cassette. Signed by and Reported on: Mg Ruff MD 12/14 1239 END OF REPORT DEPARTMENT OF PATHOLOGY, [address] [place] [address] Mg Ruff M.D. 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 K21.9 Gastro-esophageal reflux disease without esophagitis Assessments Date Code Description Provider 11/14/2019 K62.5 Hemorrhage of anus and rectum Vick Thompson MD 11/14/2019 Z79.4 senior living (current) use of insulin Vick Thompson MD 11/14/2019 K21.9 Gastro-esophageal reflux disease without Vick Thompson MD esophagitis Plan of Treatment Future Appointment(s):02/01/2020 9:30 am - Vick Thompson MD at [facility]11/14/2019 - Vick Thompson MDK62.5 Hemorrhage of [...] to prescribe Carafate for her abdominal painZ79.4 senior living (current) use of daxakwtV58.9 Gastro-esophageal reflux disease without esophagitis Functional Status Description No Information Available Mental Status Description No Information Available Referrals Description No Information Available
--- OUTSIDE RECORDS SUMMARY | 2020-01-23 03:37 | XMS REPORT | Continuity of Care Document ---
:1965 External Reference #:[id number] Author Name Sinai Garcia M.D. 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 Problems Active Problems Provider Date Old myocardial infarction Tomas Grimaldo DO [facility] Onset: 02/18/2017 Atherosclerosis of [place] arteries of Kingsley Shaw MD, [facility], Onset: right leg with ulceration of heel and FSCAI midfoot Atherosclerosis of [place] arteries of Kingsley Shaw MD, [facility], Onset: left leg with ulceration of other part FSCAI of foot Chronic obstructive lung disease Winifred Ahumada MD Onset: 05/19/2017 Encounter for screening for malignant Winifred Ahumada MD Onset: 05/19/2017 neoplasm of respiratory organs Nicotine dependence, cigarettes, with Winifred Ahumada MD Onset: 05/19/2017 other nicotine-induced disorders Chronic diastolic heart failure Kingsley Shaw MD, [facility], Onset: 07/01/2017 FSCAI Atherosclerosis of [place] arteries of Kingsley Shaw MD, [facility], Onset: 04/2017 right leg with ulceration of [...] Femi Degroot M.D. Onset: 06/28/2019 atherosclerosis of [place] artery of limb Social History Type Date [...] Inj, Regadenoson, 0.1 MG Tomas Grimaldo, DO [facility] 08/30/2019 Injection Technetium TC 99M Tomas Grimaldo, DO [facility] 08/30/2019 Tetrofosmin, Per Unit Dose Up To 40 Millicuries Injection Technetium TC 99M Tomas Grimaldo, DO [facility] 08/30/2019 Tetrofosmin, Per Unit Dose Up To 40 Millicuries Injection Inj, Regadenoson, 0.1 MG Tomas Grimaldo, DO [facility] 04/25/2018 Injection Technetium TC 99M Tomas Grimaldo, DO [facility] 04/25/2018 Tetrofosmin, Per Unit Dose Up To 40 Millicuries Injection Inj, Regadenoson, 0.1 MG Tomas Grimaldo, DO [facility] 03/31/2017 Injection Technetium TC 99M Tomas Grimaldo, DO [facility] 03/31/2017 Tetrofosmin, Per Unit Dose Up To [...] Result H/L Range Note Laboratory test 12/07/2019 [facility] Free T4 1.06 ng/dL Normal 0.61-1.[address] ([place] [address] Thyroxine [phone] ) TSH (Thyroid Stim Horm) 0.69 mcIU/mL Normal 0.34-5.60 T3 Total 137 ng/dL Normal 87-178 Comp Metabolic 12/07/2019 [facility] Sodium 139 mmol/L Normal 135-[address] [place] [address] [phone] Potassium 4.5 mmol/L Normal 3.5-5.0 Chloride 103 [...] Egfr 43.6 >60 1 CBC Auto 12/07/2019 [facility] White Blood 11.1 10^3/uL High 3.5-10.[address] [place] [address] [phone] Red Blood Count 4.01 10^6/uL Normal 3.70-4.87 [...] dialysis) Procedures Date Code Description Status 12/29/2019 88863 Myocardial Perfusion Imaging Tomographic (Spect) Completed Multiple Studies 12/11/2019 79090 Treadmill Interp/Report Only Completed 12/11/2019 31674 Stress Test Supervsn W/Out I/R Completed 12/05/2019 87255 EKG Tracing & Interpretation Completed 11/25/2019 34950 EKG, Interpretation Only Completed 11/24/2019 77042 EKG, Interpretation Only Completed 11/23/2019 43404 EKG, Interpretation Only Completed 11/21/2019 55785 EKG Tracing & Interpretation Completed 10/29/2019 09340 ECHO Transthorasic Realtime 2D W Doppler & Color Flow Completed Hosp 10/28/2019 47050 EKG, Interpretation Only Completed 08/30/2019 33587 Stress Test Completed 08/30/2019 06429 Myocardial Perfusion Imaging Tomographic (Spect) Completed Multiple Studies 08/29/2019 00540 ECHO Transthoracic, Real-Time 2D With Doppler And Color Completed Flow 08/29/2019 24288 ECHO Transthoracic, Real-Time 2D With Doppler And Color Completed Flow 07/21/2019 07981 EKG Tracing & Interpretation Completed 10/13/2013 [id number] Mammogram Completed Medical Devices Description No Information Available Encounters Type Date Location Provider Dx Diagnosis Office Visit 12/22/2019 [facility] [place] Trinity Puentes, R07.9 Chest pain, 10:36a tania Gregory M.D. unspecified Hospitalists E11.40 Type 2 diabetes mellitus with diabetic neuropathy, unsp M54.9 Dorsalgia, unspecified I10 Essential (primary) hypertension Office Visit 12/21/2019 10:36a [facility] [place] Sinai R07.9 Chest pain, Assoctania M.D. unspecified Hospitalists E11.9 Type 2 diabetes mellitus without complications I11.0 Hypertensive heart disease with heart failure I50.20 Unspecified systolic (congestive) heart failure Office Visit 12/11/2019 10:19a [facility] [place] Jeison R07.9 Chest pain, Assoctania PA unspecified Hospitalists I11.0 Hypertensive heart disease with heart failure I50.20 Unspecified systolic (congestive) heart failure E11.40 Type 2 diabetes mellitus with diabetic neuropathy, unsp Z79.4 [employer] (current) use of insulin Office Visit 12/10/2019 10:18a [place] Noni Mchugh R07.9 Chest pain, Assoc,pc MADDIE Fuentes unspecified Hospitalists E11.40 Type 2 diabetes mellitus with diabetic neuropathy, unsp I11.0 Hypertensive heart disease with heart failure I50.20 Unspecified systolic (congestive) heart failure J44.9 Chronic obstructive pulmonary disease, unspecified Z79.4 alf (current) use of insulin Office Visit 12/05/2019 8:00a [facility] Tomas Navarrete I50.9 Heart failure, Of Sonja Grimaldo, DO unspecified FACC I25.119 Athscl heart disease of [place] cor art w unsp ang pctrs E11.65 [...] I25.5 Ischemic cardiomyopathy Office Visit 11/26/2019 11:54a [facility] Tomas Navarrete I50.9 Heart failure, Of [facility] Dillan, DO unspecified FACC I20.0 Unstable angina Office Visit 11/26/2019 10:00a [facility] [place] Nicky Eleanor, I11.0 Hypertensive heart Assoc,pc [employer] disease with heart Hospitalists failure I50.23 Acute on chronic systolic (congestive) heart failure J96.01 Acute respiratory failure with hypoxia I20.0 Unstable angina K21.9 Gastro-esophageal reflux disease without esophagitis E11.9 Type 2 diabetes mellitus without complications Office Visit 11/25/2019 [facility] [place] Nicky Eleanor, E11.9 Type 2 diabetes 9:59a Assoc,pc [employer] mellitus without Hospitalists complications J44.9 Chronic obstructive pulmonary disease, unspecified K21.9 Gastro-esophageal reflux disease without esophagitis Office Visit 11/24/2019 9:58a [facility] [place] Nicky Eleanor, I11.0 Hypertensive heart Assoc,pc [employer] disease with heart Hospitalists failure E11.9 Type 2 diabetes mellitus without complications J44.9 Chronic obstructive pulmonary disease, unspecified K21.9 Gastro-esophageal reflux disease without esophagitis Office Visit 11/24/2019 4:40p [facility] Tomas SWilfredo I50.9 Heart failure, Of Sonja Grimaldo, DO unspecified FACC I20.0 Unstable angina Office Visit 11/23/2019 [facility] [place] Joi I11.0 Hypertensive 9:58a Assoc,pc MADDIE Pop heart disease Hospitalists with heart failure I50.20 Unspecified systolic (congestive) heart failure R07.9 Chest pain, unspecified E11.9 Type 2 diabetes mellitus without complications J44.9 Chronic obstructive pulmonary disease, unspecified Office Visit 11/23/2019 3:13p [facility] Tomas SWilfredo I50.9 Heart failure, Of Sonja Grimaldo, DO unspecified FACC I20.0 Unstable angina Office Visit 11/21/2019 8:00a [facility] Tomas SWilfredo I25.119 Athscl heart Of Sonja Grimaldo, DO disease of FACC [place] cor art w unsp ang pctrs E11.65 Type 2 diabetes mellitus with hyperglycemia 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 [place] [address] R07.9 Chest pain, Assoc,pc Mo Marquez. unspecified Hospitalists E05.90 Thyrotoxicosis, unsp without thyrotoxic crisis or storm I50.9 Heart failure, unspecified J44.9 Chronic obstructive pulmonary disease, unspecified E11.9 Type 2 diabetes mellitus without complications R60.0 Localized edema Z95.1 Presence of aortocoronary bypass graft Office Visit 10/29/2019 8:55a [facility] [place] Katerina R07.9 Chest pain, Assoc,tania Bales MD unspecified Hospitalists R79.89 Other specified abnormal findings of blood chemistry I50.9 Heart failure, unspecified E11.9 Type 2 diabetes mellitus without complications J44.9 Chronic obstructive pulmonary disease, unspecified Z95.1 Presence of aortocoronary bypass graft Office Visit 10/28/2019 3:19p [facility] Nehemiah Jaeger R07.9 Chest pain, Of Sonja Hirsch M.D., unspecified FACC, FASNC R79.89 Other specified abnormal findings of blood chemistry I25.10 Athscl heart disease of [place] coronary artery w/o ang pctrs Z95.1 Presence of aortocoronary bypass graft Office Visit 10/28/2019 [facility] [place] Trinity Puentes, R07.9 Chest pain, 8:54a tania Gregory M.D. unspecified Hospitalists I21.4 Non-St elevation (Nstemi) myocardial infarction E03.9 Hypothyroidism, unspecified I50.9 Heart failure, unspecified E11.9 Type 2 diabetes mellitus without complications Office Visit 09/05/2019 10:20a [facility] Tomas SWilfredo I50.40 Unsp combined Of Sonja Grimaldo, DO [...] pulmonary disease, unspecified Office Visit 07/21/2019 10:00a [facility] Tomas SWilfredo I95.9 Hypotension, Of Sonja [...] 12/29/2019 I25.119 Atherosclerotic heart disease of Tomas S. Grimaldo, DO [facility] [place] coronary artery with unspecified angina pectoris 12/22/2019 [...] R07.9 Chest pain, unspecified Dao Dumont M.D., [facility], [facility] 12/11/2019 I11.0 Hypertensive heart disease with heart MADDIE Schulz failure 12/11/2019 I50.20 Unspecified systolic (congestive) Jeison Fuentes PA heart failure 12/11/2019 E11.40 Type 2 diabetes mellitus with MADDIE Schulz diabetic neuropathy, unspecified 12/11/2019 Z79.4 alf (current) use of insulin MADDIE Schulz 12/10/2019 R07.9 Chest pain, unspecified Jeison Fuentes PA 12/10/2019 E11.40 Type 2 diabetes mellitus with Jeison Fuentes PA diabetic neuropathy, unspecified 12/10/2019 I11.0 Hypertensive heart disease with heart Jeisno Fuentes PA failure 12/10/2019 I50.20 Unspecified systolic (congestive) Jeison Fuentes PA heart failure 12/10/2019 J44.9 Chronic obstructive pulmonary MADDIE Schulz disease, unspecified 12/10/2019 Z79.4 alf (current) use of insulin MADDIE Schulz 12/05/2019 I50.9 Heart failure, unspecified Tomas Grimaldo DO FACC 12/05/2019 I25.119 Atherosclerotic heart disease of Tomas Grimaldo, DO FACC [place] coronary artery with unspecified angina pectoris 12/05/2019 E11.65 Type 2 diabetes mellitus with Tomas Grimaldo, DO FACC hyperglycemia 12/05/2019 E05.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 Tomas Grimaldo, DO FACC multinodular goiter without thyrotoxic crisis or storm 12/05/2019 Z95.1 Presence of aortocoronary bypass Tomasnicole Grimaldo, DO FACC graft 12/05/2019 I10 Essential (primary) hypertension Tomas Grimaldo, DO FACC 12/05/2019 J44.9 Chronic obstructive pulmonary Tomasnicole Sernano, DO FACC disease, unspecified 12/05/2019 I73.9 Peripheral [...] FACC 12/05/2019 I25.2 Old myocardial infarction Tomas SWilfredo Grimaldo, DO FACC 12/05/2019 I25.5 Ischemic cardiomyopathy Tomasnicole Grimaldo, DO FACC 11/26/2019 I11.0 Hypertensive heart disease with heart Nicky Eleanor, [employer] failure 11/26/2019 I50.23 Acute on chronic systolic Nicky Eleanor, [employer] (congestive) heart failure 11/26/2019 I50.9 Heart failure, unspecified Tomas Grimaldo, DO FACC 11/26/2019 J96.01 Acute respiratory failure with Nicky Eleanor, [employer] hypoxia 11/26/2019 I20.0 Unstable angina Nicky Eleanor, [employer] 11/26/2019 I20.0 Unstable angina Tomas SWilfredo Dillan, DO FACC 11/26/2019 K21.9 Gastro-esophageal reflux disease Nicky Eleanor, [employer] without esophagitis 11/26/2019 E11.9 Type 2 diabetes mellitus without Nicky Eleanor, [employer] complications 11/25/2019 R94.31 Abnormal electrocardiogram [ECG] Tomas Grimaldo, DO FAC [EKG] 11/25/2019 E11.9 Type 2 diabetes mellitus without Nicky Eleanor, [employer] complications 11/25/2019 J44.9 Chronic obstructive pulmonary Nicky Eleanor, [employer] disease, unspecified 11/25/2019 K21.9 Gastro-esophageal reflux disease Nicky Eleanor, [employer] without esophagitis 11/24/2019 I45.10 Unspecified right bundle-branch block Tomas Grimaldo, DO FACC 11/24/2019 I11.0 Hypertensive heart disease with heart Nicky Eleanor, [employer] failure 11/24/2019 I50.9 Heart failure, unspecified Tomas Grimaldo, DO FACC 11/24/2019 E11.9 Type 2 diabetes mellitus without Nicky Eleanor, [employer] complications 11/24/2019 I20.0 Unstable angina Tomas Grimaldo, DO FACC 11/24/2019 J44.9 Chronic obstructive pulmonary Nicky Eleanor, [employer] disease, unspecified 11/24/2019 K21.9 Gastro-esophageal reflux disease Nicky Eleanor, [employer] without esophagitis 11/23/2019 I45.10 Unspecified right bundle-branch block Tomas Grimaldo, DO FACC 11/23/2019 I11.0 Hypertensive heart disease with heart Joiradha Pop, PA failure 11/23/2019 I50.9 Heart failure, unspecified Tomas Rosalba Grimaldo, DO FACC 11/23/2019 I50.20 Unspecified systolic (congestive) Joiradha Pop, PA heart failure 11/23/2019 I20.0 Unstable angina Tomasnicole Grimaldo, DO FACC 11/23/2019 R07.9 Chest pain, unspecified Joi Pop, PA 11/23/2019 E11.9 Type 2 diabetes mellitus without Joi Pop, PA complications 11/23/2019 J44.9 Chronic obstructive pulmonary Joiradha Pop, PA disease, unspecified 11/21/2019 I25.119 Atherosclerotic heart disease of Tomas Grimaldo, DO [facility] [place] coronary artery with unspecified angina pectoris 11/21/2019 E11.65 Type 2 diabetes mellitus with Tomas Grimaldo, DO [facility] hyperglycemia 11/21/2019 E05.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 Tomas Grimaldo, DO [facility] multinodular goiter without thyrotoxic crisis or storm 11/21/2019 I50.9 Heart failure, unspecified Tomas Grimaldo, DO [facility] 11/21/2019 Z95.1 Presence of aortocoronary bypass Tomas Grimaldo, DO [facility] graft 11/21/2019 I10 Essential (primary) hypertension Tomas Grimaldo, DO [facility] 11/21/2019 E78.5 Hyperlipidemia, unspecified Tomas Grimaldo, DO [facility] 11/02/2019 E11.65 Type 2 diabetes mellitus with Hector Ramírez MD hyperglycemia 11/02/2019 E05.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 Hector Ramírez MD multinodular goiter without thyrotoxic crisis or storm 11/02/2019 Z79.4 alf (current) use of insulin Hector Ramírez MD 10/30/2019 R07.9 Chest pain, unspecified Court Jimmy, D.O. 10/30/2019 E05.90 Thyrotoxicosis, unspecified without Court Jimmy, D.O. thyrotoxic crisis or storm 10/30/2019 I50.9 Heart failure, unspecified Court Jimmy, D.O. 10/30/2019 J44.[address] Jimmy, D.O. disease, unspecified 10/30/2019 E11.9 [address] Jimmy, D.O. complications 10/30/2019 R60.0 Localized edema Ocurt Jimmy, D.O. 10/30/2019 Z95.1 Presence of aortocoronary bypass Court Jimmy, D.O. graft 10/29/2019 R07.9 Chest pain, unspecified Nehemiah Hirsch M.D., [facility], FASND 10/29/2019 R07.9 Chest pain, unspecified Katerina Bales [...] R07.9 Chest pain, unspecified Nehemiah Hirsch M.D., [facility], FASND 10/28/2019 R79.89 Other specified abnormal findings of Nehemiah Hirsch M.D., [facility], blood chemistry FASND 10/28/2019 I25.10 Atherosclerotic heart disease of Nehemiah Hirsch M.D., [facility], [place] coronary artery without angina FASND pectoris 10/28/2019 Z95.1 Presence of aortocoronary bypass Nehemiah Hirsch M.D., [facility], graft FASND 10/28/2019 R07.9 Chest pain, unspecified Trinity Puentes M.D. 10/28/2019 R94.31 Abnormal electrocardiogram [ECG] Nehemiah Hirsch M.D., [facility], [EKG] FASND 10/28/2019 I21.4 Non-St elevation (Nstemi) myocardial Trinity Puentes M.D. infarction 10/28/2019 E03.9 Hypothyroidism, unspecified Trinity Puentes M.D. 10/28/2019 I50.9 Heart failure, unspecified Trinity Puentes M.D. 10/28/2019 E11.9 Type 2 diabetes mellitus without Trinity Puentes M.D. complications 09/05/2019 I50.40 Unspecified combined systolic Tomas Grimaldo DO [facility] (congestive) and diastolic (congestive) heart failure 09/05/2019 E11.69 Type 2 diabetes mellitus with other [facility] specified complication 09/05/2019 I73.9 Peripheral vascular disease, [...] 09/05/2019 N18.9 Chronic kidney disease, unspecified Tomas SWilfredo Grimaldo, DO FACC 09/05/2019 Z95.2 Presence of prosthetic heart valve Tomas Grimaldo, DO FACC 09/05/2019 J44.9 Chronic obstructive pulmonary Tomas Grimaldo, DO FACC disease, unspecified 08/30/2019 R07.9 Chest pain, unspecified Tomas SWilfredo Grimaldo, DO FACC 08/29/2019 I95.9 Hypotension, unspecified Tomas SWilfredo Grimaldo, DO FACC 08/29/2019 I95.9 Hypotension, unspecified Ica ECHO Schedule 07/21/2019 I95.9 Hypotension, unspecified Tomas Grimaldo, DO FACC 07/21/2019 R07.9 Chest pain, unspecified Tomas SWilfredo Grimaldo, DO FACC 07/21/2019 I50.40 Unspecified combined [...] 07/21/2019 I63.9 Cerebral infarction, unspecified Tomas SWilfredo Sernano, DO FACC 07/21/2019 J44.9 Chronic obstructive pulmonary Tomas Grimaldo, DO FACC disease, unspecified Plan of Treatment Future Appointment(s):01/19/2020 11:00 am - Winifred Ahumada MD at [facility]02/13/2020 11:00 am - Hector Ramírez MD at [place] [facility]03/05/2020 10:20 am - Tomas Grimaldo DO FACC at [facility]12/05/2019 - Tomas Grimaldo DO FACCI50.9 Heart failure, jdgximndzcgN43.119 Atherosclerotic heart disease of [place] coronary artery with unspecified angina dzljsgmyJ40.65 Type 2 diabetes mellitus with mfisbyxparlrlN35.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 multinodular goiter without thyrotoxic crisis or lloiqP85.1 Presence of aortocoronary bypass xzumqU85 Essential (primary) mhtrebmzqihmB58.9 Chronic obstructive pulmonary disease, whucziuhkcyC83.9 Peripheral vascular disease, zjbiwvfeujtJ59.201 Nicotine dependence, unspecified, in vbhimtnlpO08.19 Other right bundle-branch aftukZ22.9 Cerebral infarction, sgkykqdrjcgJ81.9 Chronic kidney disease, abggwtonxbqJ50.2 Presence of prosthetic heart gtoldU54.2 Old myocardial ckqnsyzucpE71.5 Ischemic cardiomyopathy Functional Status Description No Information Available Mental Status Description No Information Available Referrals Refer to Reason for Referral Status Appt Date Uri Wallace, BUSTER diabetic neuropathy Sent [phone] [id number] [phone]
--- OUTSIDE RECORDS SUMMARY | 2020-01-23 03:37 | XMS REPORT | Continuity of Care Document ---
:1965 External Reference #:[id number] Author Name Jamaal Garcia D.O. (transmitted by agent of provider Mallory Mancuso) Address [address] [place] [address] Care Team Providers Name Role Phone HCP/LW on file Care Team Information Train Operations Supervisor Unavailable [facility], Care Team Information Train Operations Supervisor Cardiovascular Winifred Ahumada MD - Pulmonary Care Team Information Train Operations Supervisor Disease Femi Degroot MD - Vascular & Care Team Information Train Operations Supervisor [phone] Interventional Radiology [facility] - Wound Care Care Team Information Train Operations Supervisor Problems Active Problems Provider Date Type II [...] Medications SIG Qnty Indications Ordering Date Provider Famotidine take 1 tablet by mouth 60tabs [facility], 12/18/2019 40mg 2 times per day for Clay Hinton Tablets gastroesophageal reflux disease Furosemide 2 (80 mg) tablets by Unknown 11/26/2019 40mg mouth every day Tablets Isosorbide 1 tablet by mouth Unknown 11/26/2019 Mononitrate ER daily 30mg Tablets ER 24HR Carvedilol take one tablet by Unknown 11/26/2019 12.5mg mouth twice a day Tablets Sucralfate Take 1 Tablet By Mouth Unknown 11/15/2019 1gm Before Meals And AT Tablets Bedtime Brilinta Take One Tablet By Unknown 10/31/2019 90mg Mouth Twice A Day Tablets Losartan Potassium 1 tablet daily for Unknown 10/30/2019 high blood pressure 25mg Tablets Levemir 80 units subcutaneous E11.69 Unknown 10/30/2019 daily 100Unit/ML Solution Methimazole 1 tablet by mouth Unknown 10/30/2019 5mg daily Tablets Novolog Flexpen 20 units before dinner 45ml E11.69 [facility], 10/12/2019 Jamaal D.O. 100Unit/ML Solution Pen-Inject Albuterol Sulfate 1-2 puffs inhaled Unknown 05/14/2019 HFA every 6 hours as 108(90Base) needed for shortness mcg/Act Aerosol of breath Incruse Ellipta Inhale One puff By 30units J44.9 [facility], 05/14/2019 Mouth Every Day Clay Hinton 62.5mcg/Inh Aerosol Mineral Oil place 4-drops in ears 30units L20.9 [facility], 04/13/2019 Oil every week for Joan Hinton.Natalie. excessive cerumen and dry ear canals as needed Onetouch Delica use with diabetic 100units [facility], 01/30/2019 Lancets Fine 30G supplies five times a Joan Hinton.O. day as directed 30G [facility] Onetouch Verio test 1-4 daily as 200units E11.65 [facility], 01/27/2019 directed Clay Hinton Strips Onetouch Verio use 1-4 times daily as 1units [facility], 01/27/2019 directed Clay Hinton w/Device Kit BD Uf Mini Pen Use Up To 6 Times 400units [facility], 01/27/2019 Needle [id number] Daily as Directed For Clay Hinton Insulin Administration Aspirin [facility] 1 by mouth daily Unknown 11/23/2018 81mg Pantoprazole Take One Tablet By 60tabs [facility], 05/26/2018 Sodium Mouth Twice A Day Clay Hinton 40mg Tablets DR Tylenol give 2 tablets by Unknown 05/26/2018 325mg mouth [id number] as Tablets needed for pain / otc Atorvastatin 1 by mouth every Unknown 08/20/2017 Calcium evening 80mg Tablets Docusate Sodium 1 cap by mouth twice a Unknown 08/20/2017 day as needed for 100mg Capsules constipation Lancets use as directed for 200units E11.65 [facility], 05/20/2017 [place] diabetic testing Clay Hinton Safety Misc BD Pen or appropriate needles 400units [facility], 05/20/2017 Needle/Mini/Ultraf for lantus/Novolog Clay Hinton ine/31G X 3/16" pen. use up to 6/day, as directed, for 31G X 5 mm Misc insulin administration Gabapentin 1 by mouth daily 90caps [facility], 300mg Clay Hinton Capsules History Medications Neomycin/Polymyxin/Dexamethasone 1 drop 4 times a 5ml [facility], 2018 - 3.5-01792-1.1 day left eye for Clay Hinton 10/20/2019 Suspension 5 days Tobradex 1 left eye three 5ml H10 [facility], 10/20/2019 - 0.3-0.1% Suspension times a day for .89 Clay Hinton 10/25/2019 5 days or 1 day after symptoms resolve. Novolog Mix 70/30 Prefilled Flexpen 30u [facility] - (70-30)100Unit/ML morning .69 Clay Hinton 11/12/2019 Supn Fluconazole 2 tabs on day 1 15tabs [facility], 07/21/2019 - 200mg Tablets the 1 tab daily Clay Hinton 08/04/2019 for 2 weeks. Stop atorvastatin while taking this medication. Immunizations CPT Code Status Date Vaccine Lot # [id number] Given 07/19/2019 Influenza Virus Vaccine, Quadrivalent, Split, [id number] Preservative Free [id number] Given 09/01/2018 Influenza Virus Vaccine, Quadrivalent, Split, [id number] Preservative Free 15712 Given 07/08/2017 Influenza Virus Vaccine, Quadrivalent, Split, [id number] Preservative Free 25395 Given 01/18/2017 Adacel or Boostrix, TDaP [id number] 07509 Given 11/30/2016 Influenza Virus Vaccine, Quadrivalent, Split, Im Use U-Pneum Given 01/18/2009 Pneumococcal,Unspecified Vital Signs Date Vital Result Comment 01/12/2020 11:41am BP Systolic 96 mmHg BP Diastolic 60 mmHg Heart Rate 77 /min O2 % BldC Oximetry 95 % Body Temperature 97.6 F Weight 206.00 lb 12/07/2019 1:46pm BP Systolic 140 mmHg BP Diastolic 72 mmHg Heart Rate 86 /min O2 % BldC Oximetry 97 % Weight 203.00 lb w/boots and coat Results Test Acquired Facility Test Result H/L Range Note Date Laboratory 12/21/2019 [facility] Surgical SEE RESULT 1 test finding [phone] Pathology BELOW Order Laboratory 12/21/2019 [facility] Troponin-I 0.07 ng/mL Critical < 0.03 2 test finding [phone] (TnI) high CBC Auto Diff 12/21/2019 [facility] White Blood 10.3 Normal 3.5-10.8 [phone] Count 10^3/uL Red Blood Count 4.17 10^6/uL Normal 3.70-4.87 Hemoglobin 11.8 g/dL Low 12.0-16.0 Hematocrit 35 % Normal 35-47 Mean Corpuscular Volume 85 fL Normal 80-97 Mean Corpuscular Hemoglobin 28 pg Normal 27-31 Mean Corpuscular HGB Conc 33 g/dL Normal 31-36 Red Cell Distribution Width 17 % High 10-15 Platelet Count 315 10^3/uL Normal 150-450 Mean Platelet Volume 8.3 fL Normal 7.4-10.4 Abs Neutrophils 8.2 10^3/uL High 1.5-7.7 Abs Lymphocytes 1.2 10^3/uL Normal 1.0-4.8 Abs Monocytes 0.5 10^3/uL Normal 0-0.8 Abs Eosinophils 0.2 10^3/uL Normal 0-0.6 Abs Basophils 0.1 10^3/uL Normal 0-0.2 Abs Nucleated RBC 0.0 10^3/uL Granulocyte % 80.0 % Lymphocyte % 12.1 % Monocyte % 5.2 % Eosinophil % 2.1 % Basophil % 0.6 % Nucleated Red Blood Cells % 0.0 Comp Metabolic Panel 12/21/2019 [facility] Sodium 139 mmol/L Normal 135-145 [phone] Potassium 3.8 mmol/L Normal 3.5-5.0 Chloride 105 mmol/L Normal 101-111 Co2 Carbon Dioxide 23 mmol/L Normal 22-32 Anion Gap 11 mmol/L Normal 2-11 Glucose 101 mg/dL High 70-100 Blood Urea Nitrogen 54 mg/dL High 6-24 Creatinine 1.49 mg/dL High 0.51-0.95 BUN/Creatinine Ratio 36.2 High 8-20 Calcium 9.9 mg/dL Normal 8.6-10.3 Total Protein 7.6 g/dL Normal 6.4-8.9 Albumin 4.1 g/dL Normal 3.2-5.2 Globulin 3.5 g/dL Normal 2-4 Albumin/Globulin Ratio 1.2 Normal 1-3 Total Bilirubin 0.50 mg/dL Normal 0.2-1.0 Alkaline Phosphatase 155 U/L High 34-104 Alt 12 U/L Normal 7-52 Ast 11 U/L Low 13-39 Egfr Non- 36.3 >60 Egfr 44.0 >60 3 Laboratory test finding 12/21/2019 [facility] Lipase 17 U/L Normal 11.0-82.0 [phone] C Reactive Protein 8.07 mg/L High <8.01 Lactic Acid 1.9 mmol/L Normal 0.5-2.0 4 Troponin-I (TnI) 0.07 ng/mL Critical high <0.03 5 TSH (Thyroid Stim Horm) 0.42 mcIU/mL Normal 0.34-5.60 CBC Auto Diff 12/10/2019 [facility] White Blood 11.7 10^3/uL High 3.5 -10.8 [phone] Count Red Blood Count 4.50 10^6/uL Normal 3.70-4.87 Hemoglobin 12.6 g/dL Normal 12.0-16.0 Hematocrit 38 % Normal 35-47 Mean Corpuscular Volume 85 fL Normal 80-97 Mean Corpuscular Hemoglobin 28 pg Normal 27-31 Mean Corpuscular HGB Conc 33 g/dL Normal 31-36 Red Cell Distribution Width 16 % High 10-15 Platelet Count 369 10^3/uL Normal 150-450 Mean Platelet Volume 7.8 fL Normal 7.4-10.4 Abs Neutrophils 10.0 10^3/uL High 1.5-7.7 Abs Lymphocytes 0.9 10^3/uL Low 1.0-4.8 Abs Monocytes 0.5 10^3/uL Normal 0-0.8 Abs Eosinophils 0.2 10^3/uL Normal 0-0.6 Abs Basophils 0.1 10^3/uL Normal 0-0.2 Abs Nucleated RBC 0.0 10^3/uL Granulocyte % 85.5 % Lymphocyte % 7.7 % Monocyte % 4.2 % Eosinophil % 2.0 % Basophil % 0.6 % Nucleated Red Blood Cells % 0.0 Laboratory test 12/10/2019 [facility] Troponin-I (TnI) 0.01 ng/mL < 0.03 6 finding [phone] Comp Metabolic 12/10/2019 [facility] Sodium 138 mmol/L Normal 135- 145 Panel [phone] Potassium 4.2 mmol/L Normal 3.5-5.0 Chloride 102 mmol/L Normal 101-111 Co2 Carbon Dioxide 24 mmol/L Normal 22-32 Anion Gap 12 mmol/L High 2-11 Calcium 9.8 mg/dL Normal 8.6-10.3 Albumin 4.3 g/dL Normal 3.2-5.2 Total Bilirubin 0.60 mg/dL Normal 0.2-1.0 Glucose 189 mg/dL High 70-100 Blood Urea Nitrogen 43 mg/dL High 6-24 Creatinine 1.66 mg/dL High 0.51-0.95 BUN/Creatinine Ratio 25.9 High 8-20 Total Protein 8.3 g/dL Normal 6.4-8.9 Globulin 4.0 g/dL Normal 2-4 Albumin/Globulin Ratio 1.1 Normal 1-3 Alkaline Phosphatase 168 U/L High 34-104 Alt 12 U/L Normal 7-52 Ast 11 U/L Low 13-39 Egfr Non- 32.1 >60 Egfr 38.8 >60 7 Laboratory test 12/10/2019 [facility] Magnesium 2.5 mg/dL Normal 1.9- 2.7 finding [phone] Lipase 22 U/L Normal 11.0-82.0 B-Type Natriuretic Peptide BNP 226 pg/mL High <=100 TSH (Thyroid Stim Horm) 1.38 mcIU/mL Normal 0.34-5.60 Laboratory test 12/07/2019 In House Hemoglobin A1c 8.1 finding Laboratory test 11/23/2019 [facility] B-Type Natriuretic 443 pg/mL High <=100 finding [phone] Peptide BNP Magnesium 2.1 mg/dL Normal 1.9-2.7 Comp Metabolic Panel 11/23/2019 [facility] Sodium 140 mmol/L Normal 135-145 [phone] Potassium 4.5 mmol/L Normal 3.5-5.0 Chloride 107 [...] Egfr Non- 51.0 >60 Egfr 61.7 >60 8 Laboratory test 11/23/2019 [facility] Troponin-I (TnI) 0.02 ng/mL < 0.03 9 finding [phone] CBC Auto Diff 11/23/2019 [facility] White Blood 14.7 High 3.5-10.8 [phone] Count 10^3/uL Red Blood Count 3.97 10^6/uL [...] % Nucleated Red Blood Cells % 0.0 Inr/Protime 11/23/2019 [facility] Inr 0.97 Normal 0.82-1.09 10 [phone] Laboratory test 11/23/2019 [facility] Troponin-I 0.02 <0.03 11 finding [phone] (TnI) ng/mL Laboratory test 10/28/2019 [facility] Troponin-I 0.11 Critical <0.03 12 finding [phone] (TnI) ng/mL high CBC Auto Diff 10/27/2019 [facility] White 10.2 Normal 3.5-10.8 [phone] Blood 10^3/uL Count Red Blood Count 4.56 [...] Cells % 0.1 Comp Metabolic Panel 10/27/2019 [facility] Sodium 133 mmol/L Low 135- 145 [phone] Potassium 3.9 mmol/L Normal 3.5-5.0 Chloride 98 [...] Egfr Non- 33.2 >60 Egfr 40.2 >60 13 Laboratory test 10/27/2019 [facility] Magnesium 2.2 mg/dL Normal 1.9- 2.7 finding [phone] Lipase 18 U/L Normal 11.0-82.0 Troponin-I (TnI) 0.04 ng/mL Critical high <0.03 14 C Reactive Protein 18.58 mg/L High <8.01 TSH (Thyroid Stim Horm) 0.09 mcIU/mL Low 0.34-5.60 B-Type Natriuretic Peptide BNP 120 pg/mL High <=100 T3 Free 4.50 pg/mL High 2.5-3.9 Free T4 (Free Thyroxine) 1.41 ng/dL High 0.61-1.12 Urinalysis Profile 10/27/2019 [facility] Urine Color Yellow [phone] Urine Appearance Clear Urine Specific [place] 1.013 Normal 1.010-1.030 Urine pH 6.0 Normal [...] Present Abnormal Absent Urine Culture And 10/27/2019 [facility] Urine Culture SEE RESULT 15 Sensitivities [phone] BELOW CBC Auto Diff 09/15/2019 [facility] White Blood 11.5 10^3/uL High 3.5 -10 [phone] Count .8 Red Blood Count 4.67 10^6/uL [...] Cells % 0.0 Laboratory test finding 09/15/2019 [facility] Lipase 12 U/L Normal 11.0-82.0 [phone] C Reactive Protein 22.47 mg/L High <8.01 Laboratory test 09/15/2019 [facility] Lactic Acid 1.5 mmol/L Normal 0.5-2.0 16 finding [phone] Comp Metabolic 09/15/2019 [facility] Sodium 135 mmol/L Normal 135- 145 Panel [phone] Potassium 4.2 mmol/L Normal 3.5-5.0 Chloride 102 [...] Egfr Non- 42.5 >60 Egfr 51.5 >60 17 Urine Microalbumin 09/08/2019 [facility] Ur Microalbumin 26.1 mg/L Random [phone] (mg/L) Urine Creatinine 26.09 mg/dL Urine Microalbumin/Creatinine 100.0 High <31 Laboratory test 09/08/2019 In House Hemoglobin A1c 11.8 finding Laboratory test 08/20/2019 [facility] Troponin-I (TnI) 0.03 ng/mL < 0.04 18 finding [phone] Comp Metabolic 08/20/2019 [facility] Sodium 130 mmol/L Low 135-145 Panel [phone] Potassium 4.8 mmol/L Normal 3.5-5.0 Chloride 96 [...] Egfr Non- 31.2 >60 Egfr 37.8 >60 19 Glucose 617 mg/dL Critical high 70-100 20 Inr/Protime 08/20/2019 [facility] Inr 0.88 Normal 0.82-1.09 21 [phone] CBC Auto Diff 08/20/2019 [facility] White Blood 7.4 10^3/uL Normal 3.5-10.8 [phone] Count Red Blood Count 4.74 10^6/uL Normal [...] Red Blood Cells % 0.1 Laboratory 08/20/2019 [facility] Troponin-I 0.02 <0.04 22 test finding [phone] (TnI) ng/mL Laboratory 08/20/2019 [facility] > 444 Critical 70-100 23 test finding [phone] Glucose mg/dL high Laboratory 08/20/2019 [facility] Glucose 495 High 70-100 test finding [phone] Confirmatory mg/dL Laboratory 08/20/2019 [facility] 432 Critical 70-100 24 test finding [phone] Glucose mg/dL high Laboratory 08/20/2019 [facility] Point of Care 351 High 70-100 25 test finding [phone] Glucose mg/dL CBC Auto Diff 07/19/2019 [facility] White Blood 9.8 Normal 3.5-10.8 [phone] Count 10^3/uL Red Blood Count 4.44 10^6/uL [...] Cells % 0.2 Comp Metabolic Panel 07/19/2019 [facility] Sodium 136 mmol/L Normal 135-145 [phone] Potassium 5.0 mmol/L Normal 3.5-5.0 Chloride 96 [...] Egfr Non- 27.4 >60 Egfr 33.2 >60 26 Urinalysis Profile 07/19/2019 [facility] Urine Color Yellow [phone] Urine Appearance Cloudy Urine Specific [place] 1.014 Normal 1.010-1.030 Urine pH 5.0 Normal [...] Present Abnormal Absent Urine Culture And 07/19/2019 [facility] Urine Culture SEE RESULT 27 Sensitivities [phone] BELOW Laboratory test 07/19/2019 [facility] Erythrocyte Sed 61 mm/Hr High 0 -29 finding [phone] Rate C Reactive Protein 18.39 mg/L High <8.01 1 SEE RESULT BELOW Name: GABRIEL CHAVEZ : [address]: Trinity Puentes MD Acct: [id number] Unit: [id number] AGE: 54 Location: [place] [address] Re12/21/19 Dis: 12/22/19 SEX: F Status: DIS Ld SPEC: [id number] KYRA: 12/21/19- [facility] DR: Vick Thompson MD REQ: [id number] RECD: 12/22/19 STATUS: MOIZ GRIJALVA DR: [facility] [...] 1239 END OF REPORT DEPARTMENT OF PATHOLOGY, [address] [place] [address] Mg Ruff M.D. Director [facility] # [id number] 2 Result TnIDx:0.07 Called to [employer] at: 04:12 by:[id number] Read back by: [id number] Troponin-I testing on Plasma Separator Tubes (PST) has a known false positive rate of 0.20-0.40%. All positive troponins reflex immediately to secondary confirmatory testing. Using the [employer] DxI 800 Access Immunoassay systems, the 99th percentile upper reference limit was demonstrated to be < 0.03 ng/mL. 3 Because ethnic data is not always [...] 5 Kidney failure <15 (or dialysis) 4 MTS Severe Sepsis and Septic Shock Management Bundle Measure requires all lactic acids initially measuring >2.0 mmol/L be repeated. 5 Result TnIDx:0.07 Called to [employer] at: 01:38:13 by:[id number] Read back by: [id number] Troponin-I testing on Plasma Separator Tubes (PST) has a known false positive rate of 0.20-0.40%. All positive troponins reflex immediately to secondary confirmatory testing. Using the [employer] DxI 800 Access Immunoassay systems, the 99th percentile upper reference limit was demonstrated to be < 0.03 ng/mL. 6 Troponin-I testing on Plasma Separator Tubes (PST) has a known false positive rate of 0.20-0.40%. All positive troponins reflex immediately to secondary confirmatory testing. Using the [employer] DxI 800 Access Immunoassay systems, the 99th percentile upper reference limit was demonstrated to be < 0.03 ng/mL. 7 Because ethnic data is not always [...] 5 Kidney failure <15 (or dialysis) 8 Because ethnic data is not always [...] 5 Kidney failure <15 (or dialysis) 9 Troponin-I testing on Plasma Separator Tubes (PST) has a known false positive rate of 0.20-0.40%. All positive troponins reflex immediately to secondary confirmatory testing. Using the [employer] DxI 800 Access Immunoassay systems, the 99th percentile upper reference limit was demonstrated to be < 0.03 ng/mL. 10 Standard intensity warfarin therapeutic range: 2.0-3.0 High intensity warfarin therapeutic range: 2.5-3.5 11 Troponin-I testing on Plasma Separator Tubes (PST) has a known false positive rate of 0.20-0.40%. All positive troponins reflex immediately to secondary confirmatory testing. Using the [employer] DxI 800 Access Immunoassay systems, the 99th percentile upper reference limit was demonstrated to be < 0.03 ng/mL. 12 Result TnIDx:0.11 Called to [id number] at: 02:17:43 by:[id number] Read back by: [id number] Troponin-I testing on Plasma Separator Tubes (PST) has a known false positive rate of 0.20-0.40%. All positive troponins reflex immediately to secondary confirmatory testing. Using the [employer] DxI 800 Access Immunoassay systems, the 99th percentile upper reference limit was demonstrated to be < 0.03 ng/mL. 13 Because ethnic data is not always [...] 5 Kidney failure <15 (or dialysis) 14 Result TnIDx:0.04 Called to [id number] at: 23:33:09 by:[id number] Read back by: [id number] Troponin-I testing on Plasma Separator Tubes (PST) has a known false positive rate of 0.20-0.40%. All positive troponins reflex immediately to secondary confirmatory testing. Using the [employer] DxI 800 Access Immunoassay systems, the 99th percentile upper reference limit was demonstrated to be < 0.03 ng/mL. 15 SEE RESULT BELOW Name: GABRIEL CHAVEZ : [address]: Dinana Calvillo MD Acct: [id number] Unit: [id number] AGE: 54 Location: [place] [address] Re10/28/19 SEX: F Status: ADM IN SPEC: [id number] KYRA: 10/28/19-[address] [facility] [address]: Jesse PERKINS REQ: [id number] RECD: 10/28/19 STATUS: MJ GRIJALVA DR: [facility] Jamaal Garcia DO _ SOURCE: URINE SPDESC: ORDERED: Urine Culture Procedure Result Reported Site Urine Culture Final 10/29/19- 1154 ML Organism 1 AEROCOCCUS URINAE [place] Count >100,000 (Many) CFU/ML Organism 2 NORMAL DICKSON [place] Count 1-10,000 (Few) CFU/ML Aerococcus isolates are too fastidious for routine susceptibility studies. Aerococcus are usually susceptible to penicillin, amoxicillin, piperacillin, cefipime, rifampin and vancomycin. Moderate to good activity occurs with the quinolones, tetracyclines and erythromycin. ([employer] [place] and Textbook of Diagnostic Microbiology 6th Ed. 2006, p. 705-6.) * ML - Main Lab . END OF REPORT DEPARTMENT OF PATHOLOGY, [address] [place] [address] Mg Ruff M.D. Director [facility] # [id number] 16 [facility] Severe Sepsis and Septic Shock Management Bundle Measure requires all lactic acids initially measuring >2.0 mmol/L be repeated. 17 Because ethnic data is not always readily [...] 15-29 5 Kidney failure <15 (or dialysis) 18 Troponin-I testing on Plasma Separator Tubes (PST) has a known false positive rate of 0.20-0.40%. All positive troponins reflex immediately to secondary confirmatory testing. Using the [employer] DxI 800 Access Immunoassay systems, the 99th percentile upper reference limit was demonstrated to be < 0.03 ng/mL. 19 Because ethnic data is not always [...] 5 Kidney failure <15 (or dialysis) 20 Critical Result [id number] Called to [id number] at: 17:29:14 by:[id number] Read back by:[id number] 21 Standard intensity warfarin therapeutic range: 2.0-3.0 High intensity warfarin therapeutic range: 2.5-3.5 22 Troponin-I testing on Plasma Separator Tubes (PST) has a known false positive rate of 0.20-0.40%. All positive troponins reflex immediately to secondary confirmatory testing. Using the [employer] Interactive DxI 800 Access Immunoassay systems, the 99th percentile upper reference limit was demonstrated to be < 0.03 ng/mL. 23 [employer]: [id number] 24 [employer]: [id number] 25 [employer]: [id number] 26 Because ethnic data is not always readily [...] 15-29 5 Kidney failure <15 (or dialysis) 27 SEE RESULT BELOW Name: GABRIEL CHAVEZ : [address]: Jamaal Garcia DO Acct: [id number] Unit: [id number] AGE: 54 Location: [facility] Re07/19/19 SEX: F Status: REG REF SPEC: [id number] KYRA: 07/19/19-[address] [facility] [address]: Jamaal Garcia DO REQ: [id number] RECD: 07/19/19-1610 STATUS: COMP _ SOURCE: URINE SPDESC: ORDERED: Urine Culture Procedure Result Reported Site Urine Culture Final 07/20/19- 1608 ML No growth of clinically significant organisms * ML - Main Lab . END OF REPORT DEPARTMENT OF PATHOLOGY, [address] [place] [address] Mg Ruff M.D. Director [facility] # [id number] Procedures Date Code Description Status 01/10/2020 172007365 Diabetic Foot Exam Completed 10/10/2019 369541767 Diabetic Retinal Eye Exam Completed 10/06/2019 38568 X-Ray Elbow Three Views Completed 07/19/2019 28930 Electrocardiogram Complete Completed 02/15/2019 [id number] Mammogram Completed Medical Devices Description No Information Available Encounters Type Date Location Provider Dx Diagnosis Office Visit 01/12/2020 Main Office Jamaal Garcia, Z79.4 long-term ( current) 11:00a D.O. 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 mellitus with other specified complication E11.65 Type 2 diabetes mellitus with hyperglycemia Z79.4 long-term (current) use of insulin N18.3 Chronic kidney disease, stage 3 (moderate) I70.234 [facility] [place] art of right leg w ulcer of [...] with hyperglycemia I10 Essential (primary) hypertension Z79.4 long-term (current) use of insulin N18.3 Chronic kidney disease, stage 3 (moderate) I70.234 [facility] [place] art of right leg w ulcer of heel and midfoot H10.89 Other conjunctivitis Office Visit 10/12/2019 11:45a Main Office Jamaal Garcia, E11.69 Type 2 diabetes D.O. mellitus with other specified complication M77.11 Lateral epicondylitis, right elbow M25.521 Pain in right elbow E11.65 Type 2 diabetes mellitus with hyperglycemia I10 Essential (primary) hypertension Z79.4 long-term (current) use of insulin N18.3 Chronic kidney disease, stage 3 (moderate) I70.234 [facility] [place] art of right leg w ulcer of [...] with hyperglycemia I10 Essential (primary) hypertension Z79.4 garment folder (current) use of insulin N18.3 Chronic kidney disease, stage 3 (moderate) I70.234 Athscl united [place] art of right leg w ulcer of heel and midfoot J44.9 Chronic obstructive pulmonary disease, unspecified F17.211 Nicotine dependence, cigarettes, in remission E11.69 Type 2 diabetes mellitus with other specified complication I50.32 Chronic diastolic (congestive) heart failure Office Visit 07/19/2019 3:00p Main Office Jamaal Garcia, E11.65 Type 2 diabetes D.O. mellitus with hyperglycemia I10 Essential (primary) hypertension Z79.4 long-term (current) use of insulin N18.3 Chronic kidney disease, stage 3 (moderate) I70.234 Athscl [place] art of right leg w ulcer of heel and midfoot J44.9 Chronic obstructive pulmonary disease, unspecified Z23 Encounter for immunization Assessments Date Code Description Provider 01/12/2020 Z79.4 long-term (current) use of insulin Jamaal Garcia D.O. 01/12/2020 J44.9 Chronic obstructive pulmonary disease, Jamaal Garcia D.O. unspecified 01/12/2020 E11.69 Type 2 diabetes mellitus with other specified Jamaal Garcia D.O. complication 01/12/2020 M54.5 Low back pain Jamaal Garcia D.O. 01/12/2020 M79.604 Pain in right leg SopJamaal singh, D.O. 01/12/2020 I50.33 Acute on chronic diastolic (congestive) heart Winston Garciaon, D.O. 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 without thyrotoxic crisis or storm 01/12/2020 F17.211 Nicotine dependence, cigarettes, in remission SopWinston singhon, D.O. 01/12/2020 N18.3 Chronic kidney disease, stage 3 (moderate) SophamletkWinstonon, D.O. 01/12/2020 K21.9 Gastro-esophageal reflux disease without SophamletkWinstonon, D.O. esophagitis 01/12/2020 I70.234 Atherosclerosis of united [place] arteries of right Jamaal Garcia, D.O. leg with ulceration of heel and midfoot 01/12/2020 I10 Essential (primary) hypertension Jamaal Garcia, D.O. 12/07/2019 I50.33 Acute on chronic diastolic (congestive) heart Jamaal Garcia, D.O. failure 12/07/2019 E11.69 Type 2 diabetes mellitus with other specified SophamletkWinstonon, D.O. complication 12/07/2019 E11.69 Type 2 diabetes mellitus with other specified SophamletkWinstonon, D.O. 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 without thyrotoxic crisis or storm 12/07/2019 J44.9 Chronic obstructive pulmonary disease, Jamaal Garcia, D.O. unspecified 12/07/2019 Z79.4 long-term (current) use of insulin Jamaal Garcia, D.O. 12/07/2019 F17.211 Nicotine dependence, cigarettes, in remission Jamaal Garcia, D.O. 12/07/2019 N18.3 Chronic kidney disease, stage 3 (moderate) SopWinston singhon, D.O. 12/07/2019 K21.9 Gastro-esophageal reflux disease without SopWinston singhon, D.O. esophagitis 12/07/2019 I70.234 Atherosclerosis of united [place] arteries of right Jamaal Garcia, D.O. leg with ulcerat 12/07/2019 J44.9 Chronic obstructive pulmonary disease, SopWinston singhon, D.O. unspecified 12/07/2019 F17.211 Nicotine dependence, cigarettes, in remission Jamaal Garcia, D.O. 12/07/2019 I10 Essential (primary) hypertension Jamaal Garcia, D.O. 11/13/2019 E11.69 Type 2 diabetes mellitus with other specified Miguel AngelkWinstonon, D.O. complication 11/13/2019 E11.65 Type 2 diabetes mellitus with hyperglycemia Jamaal Garcia , D.O. 11/13/2019 Z79.4 garment folder (current) use of insulin Jamaal Garcia, D.O. 11/13/2019 N18.3 Chronic kidney disease, stage 3 (moderate) Jamaal Garcia, D.O. 11/13/2019 I70.234 Atherosclerosis of united [place] arteries of right Jamaal Garcia, D.O. leg with ulcerat 11/13/2019 J44.9 Chronic obstructive pulmonary disease, SophamletkWinstonon, D.O. unspecified 11/13/2019 F17.211 Nicotine dependence, cigarettes, in remission Jamaal Garcia, D.O. 11/13/2019 I50.32 Chronic diastolic (congestive) heart failure Jamaal Garcia, D.O. 11/13/2019 I21.9 Acute myocardial infarction, unspecified Jamaal Garcia, D.O. 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 without thyrotoxic crisis or storm 10/20/2019 E11.69 Type 2 diabetes mellitus with other specified Winston Garciaon, D.O. complication 10/20/2019 E11.65 Type 2 diabetes mellitus with hyperglycemia Jamaal Garcia , D.O. 10/20/2019 I10 Essential (primary) hypertension Jamaal Garcia, D.O. 10/20/2019 Z79.4 garment folder (current) use of insulin Jamaal Garcia D.O. 10/20/2019 N18.3 Chronic kidney disease, stage 3 (moderate) Jamaal Garcia D.O. 10/20/2019 I70.234 Atherosclerosis of united [place] arteries of right Radha JamaalKarolynO. leg with ulcerat 10/20/2019 H10.89 Other conjunctivitis Jamaal Garcia D.O. 10/12/2019 E11.69 Type 2 diabetes mellitus with other specified EuniceJamaal singh D.O. complication 10/12/2019 M77.11 Lateral epicondylitis, right elbow Jamaal Garcia D.O. 10/12/2019 M25.521 Pain in right elbow RadhaJamaal D.O. 10/12/2019 E11.65 Type 2 diabetes mellitus with hyperglycemia Jamaal Garcia D.O. 10/12/2019 I10 Essential (primary) hypertension Jamaal Garcia D.O. 10/12/2019 Z79.4 garment folder (current) use of insulin Jamaal Garcia D.OWilfredo 10/12/2019 N18.3 Chronic kidney disease, stage 3 (moderate) Jamaal Garcia D.O. 10/12/2019 I70.234 Atherosclerosis of united [place] arteries of right Jamaal GarciaKarolynO. leg with ulcerat 10/12/2019 J44.9 Chronic obstructive pulmonary disease, Miguel AngelbarbJamaal D.O. unspecified 10/12/2019 F17.211 Nicotine dependence, cigarettes, in remission Jamaal Garcia D.O. 10/12/2019 I50.32 Chronic diastolic (congestive) heart failure [...] (primary) hypertension Jamaal Garcia D.O. 09/08/2019 Z79.4 garment folder (current) use of insulin Winston GarciaJoan correia.O. 09/08/2019 N18.3 Chronic kidney disease, stage 3 (moderate) Jamaal Garcia D.O. 09/08/2019 I70.234 Atherosclerosis of united [place] arteries of right RadhaJamaal D.O. leg with ulcerat 09/08/2019 J44.9 Chronic obstructive pulmonary disease, Jamaal Garcia D.O. unspecified 09/08/2019 F17.211 Nicotine dependence, cigarettes, in remission Jamaal Garcia D.O. 09/08/2019 E11.69 Type 2 diabetes mellitus with other specified Jamaal Garcia D.O. complication 09/08/2019 I50.32 Chronic diastolic (congestive) heart failure Jamaal Garcia D.O. 07/19/2019 E11.65 Type 2 diabetes mellitus with hyperglycemia Jamaal Garcia D.O. 07/19/2019 I10 Essential (primary) hypertension Jamaal Garcia D.O. 07/19/2019 Z79.4 long-term (current) use of insulin Jamaal Garcia D.O. 07/19/2019 N18.3 Chronic kidney disease, stage 3 (moderate) Jamaal Garcia D.O. 07/19/2019 I70.234 Atherosclerosis of united [place] arteries of right RadhaJamaal D.O. leg with ulcerat 07/19/2019 J44.9 Chronic obstructive pulmonary disease, Jamaal Garcia D.O. unspecified 07/19/2019 Z23 Encounter for immunization Jamaal Garcia D.O. Plan of Treatment 01/12/2020 - Jamaal Garcia D.O.Z79.4 garment folder (current) use of fharyflS26.9 Chronic obstructive pulmonary disease, jsldmqvqsvpM36.69 Type 2 diabetes mellitus with other specified complicationFollow up:as pnvznniyaT68.5 Low back painM79.604 Pain in right legI50.33 Acute on chronic diastolic (congestive) heart mhnywttP09.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 multinodular goiter without thyrotoxic crisis or sscxxP26.211 Nicotine dependence, cigarettes, in chqsdwwcxQ11.3 Chronic kidney disease, stage 3 (moderate)K21.9 Gastro- esophageal reflux disease without xkwpuagexvdT27.234 Atherosclerosis of united [place] arteries of right leg with ulceration of heel and muwnswzX86 Essential (primary ) hypertensionFollow up:2 month recheck chronic medical problems Goals 01/12/2020 - Jamaal Garcia D.O.E11.69 Type 2 diabetes mellitus with other specified complicationToday's A1c: 8.1 Hemoglobin A1C (average glucose) < 7.0 - this is checked every 3 months. Avoid/limit carbohydrates: foods like Potatoes, Wheat (bread,pasta,cookies,crackers,pretzels,dough), Rice, [place], and Sugar Limit sweetened beverages. Check eyes yearly with a dialated exam with an general office worker Check for diabetic kidney disease yearly with urine microalbumin test Check your feet by looking at all sides daily; once a year at least have them checked by a doctor. Functional Status Description No Information Available Mental Status Description No Information Available Referrals Refer to Reason for Referral Status Appt Date Winifred Ahumada MD Chronic lung disease with poor follow up. Sent Recent hospitalization with CTA with hilar lymphadenopathy. Consider follow up options. Consult and Treat [facility] [address], [address] [place] [address] [phone] [facility] consider alternative options for colon cancer Sent 11/14/2019 screening without sedation. + fit test. Consult and Treat [address] [place] [address] [phone]
--- OUTSIDE RECORDS SUMMARY | 2020-01-23 03:37 | XMS REPORT | Continuity of Care Document ---
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 Medicine Problems Active Problems Provider Date Old myocardial infarction Tomas Grimaldo DO [facility] Onset: 02/18/2017 Atherosclerosis of [place] arteries of Kingsley Shaw MD, [facility], Onset: right leg with ulceration of heel and FSCAI midfoot Atherosclerosis of [place] arteries of Kingsley Shaw MD, [facility], Onset: left leg with ulceration of other part FSCAI of foot Chronic obstructive lung disease Winifred Ahumada MD Onset: 05/19/2017 Encounter for screening for malignant Winifred Ahumada MD Onset: 05/19/2017 neoplasm of respiratory organs Nicotine dependence, cigarettes, with Winifred Ahumada MD Onset: 05/19/2017 other nicotine-induced disorders Chronic diastolic heart failure Kingsley Shaw MD, [facility], Onset: 07/01/2017 FSCAI Atherosclerosis of [place] arteries of Kingsley Shaw MD, [facility], Onset: 04/2017 right leg with ulceration of other FSCAI part of foot Chest pain MADDIE Schulz Onset: 05/26/2018 Gastroesophageal reflux disease MADDIE Schulz Onset: 05/26/2018 Type 2 diabetes mellitus MADDIE Schulz Onset: 05/26/2018 Long-term current use of insulin MADDIE Schulz Onset: 05/26/2018 Hyperlipidemia MADDIE Schulz Onset: 05/26/2018 Atherosclerosis of arteries of the Feim Degroot M.D. Onset: 06/28/2019 extremities Intermittent claudication due to Femi Degroot M.D. Onset: 06/28/2019 atherosclerosis of [place] artery of limb Social History Type Date [...] Regadenoson, 0.1 MG Tomas Grimaldo, DO [facility] 08/30/2019 Injection Technetium TC 99M Tomas Grimaldo, DO [facility] 08/30/2019 Tetrofosmin, Per Unit Dose Up To 40 Millicuries Injection Technetium TC 99M Tomas Grimaldo, DO [facility] 08/30/2019 Tetrofosmin, Per Unit Dose Up To 40 Millicuries Injection Inj, Regadenoson, 0.1 MG Tomas Grimaldo, DO [facility] 04/25/2018 Injection Technetium TC 99M Tomas S. Dillan, DO [facility] 04/25/2018 Tetrofosmin, Per Unit Dose Up To 40 Millicuries Injection Inj, Regadenoson, 0.1 MG Tomas S. Dillan, DO [facility] 03/31/2017 Injection Technetium TC 99M Tomas S. Dillan, DO [facility] 03/31/2017 Tetrofosmin, Per Unit Dose Up To [...] Result H/L Range Note Laboratory test 12/07/2019 [facility] Free T4 1.06 ng/dL Normal 0.61-1.[address] ([place] [address] Thyroxine [phone] ) TSH (Thyroid Stim Horm) 0.69 mcIU/mL Normal 0.34-5.60 T3 Total 137 ng/dL Normal 87-178 Comp Metabolic 12/07/2019 [facility] Sodium 139 mmol/L Normal 135-[address] [place] [address] [phone] Potassium 4.5 mmol/L Normal 3.5-5.0 Chloride 103 [...] Egfr 43.6 >60 1 CBC Auto 12/07/2019 [facility] White Blood 11.1 10^3/uL High 3.5-10.[address] [place] [address] [phone] Red Blood Count 4.01 10^6/uL Normal 3.70-4.87 [...] dialysis) Procedures Date Code Description Status 12/29/2019 48369 Myocardial Perfusion Imaging Tomographic (Spect) Completed Multiple Studies 12/11/2019 50183 EKG, Interpretation Only Completed 12/11/2019 35365 Treadmill Interp/Report Only Completed 12/11/2019 84198 Stress Test Supervsn W/Out I/R Completed 12/05/2019 41921 EKG Tracing & Interpretation Completed 11/25/2019 79282 EKG, Interpretation Only Completed 11/24/2019 33868 EKG, Interpretation Only Completed 11/23/2019 75594 EKG, Interpretation Only Completed 11/21/2019 09349 EKG Tracing & Interpretation Completed 10/29/2019 27673 ECHO Transthorasic Realtime 2D W Doppler & Color Flow Completed Hosp 10/28/2019 05842 EKG, Interpretation Only Completed 08/30/2019 04472 Stress Test Completed 08/30/2019 71534 Myocardial Perfusion Imaging Tomographic (Spect) Completed Multiple Studies 08/29/2019 18930 ECHO Transthoracic, Real-Time 2D With Doppler And Color Completed Flow 08/29/2019 51822 ECHO Transthoracic, Real-Time 2D With Doppler And Color Completed Flow 07/21/2019 45603 EKG Tracing & Interpretation Completed 10/13/2013 [id number] Mammogram Completed Medical Devices Description No Information Available Encounters Type Date Location Provider Dx Diagnosis Office Visit 12/22/2019 [facility] Trinity Puentes, R07.9 Chest pain, 10:36a tania Gregory M.D. unspecified Hospitalists E11.40 Type 2 diabetes mellitus with diabetic neuropathy, unsp M54.9 Dorsalgia, unspecified I10 Essential (primary) hypertension Office Visit 12/21/2019 10:36a [facility] R07.9 Chest pain, Assoc,tania Garcia M.D. unspecified Hospitalists E11.9 Type 2 diabetes mellitus without complications I11.0 Hypertensive heart disease with heart failure I50.20 Unspecified systolic (congestive) heart failure Office Visit 12/11/2019 10:19a [facility] Jeison R07.9 Chest pain, Assoc,MADDIE Ly unspecified Hospitalists I11.0 Hypertensive heart disease with heart failure I50.20 Unspecified systolic (congestive) heart failure E11.40 Type 2 diabetes mellitus with diabetic neuropathy, unsp Z79.4 jail (current) use of insulin Office Visit 12/10/2019 10:18a [facility] Jeison R07.9 Chest pain, Assoc,pc MADDIE Fuentes unspecified Hospitalists E11.40 Type 2 diabetes mellitus with diabetic neuropathy, unsp I11.0 Hypertensive heart disease with heart failure I50.20 Unspecified systolic (congestive) heart failure J44.9 Chronic obstructive pulmonary disease, unspecified Z79.4 jail (current) use of insulin Office Visit 12/05/2019 8:00a [facility] Tomas Navarrete I50.9 Heart failure, Of [facility] Dillan, DO unspecified FACC I25.119 Athscl heart disease of [place] cor art w unsp ang pctrs E11.65 [...] I25.5 Ischemic cardiomyopathy Office Visit 11/26/2019 11:54a [facility] Tomas Navarrete I50.9 Heart failure, Of [facility] Dillan, DO unspecified FACC I20.0 Unstable angina Office Visit 11/26/2019 10:00a [facility] Nicky Eleanor, I11.0 Hypertensive heart Assoc,pc ENGINE MECHANIC disease with heart Hospitalists failure I50.23 Acute on chronic systolic (congestive) heart failure J96.01 Acute respiratory failure with hypoxia I20.0 Unstable angina K21.9 Gastro-esophageal reflux disease without esophagitis E11.9 Type 2 diabetes mellitus without complications Office Visit 11/25/2019 [facility] Nicky Eleanor, E11.9 Type 2 diabetes 9:59a Assoc,pc ENGINE MECHANIC mellitus without Hospitalists complications J44.9 Chronic obstructive pulmonary disease, unspecified K21.9 Gastro-esophageal reflux disease without esophagitis Office Visit 11/24/2019 9:58a [facility] Nicky Eleanor, I11.0 Hypertensive heart Assoc,pc ENGINE MECHANIC disease with heart Hospitalists failure E11.9 Type 2 diabetes mellitus without complications J44.9 Chronic obstructive pulmonary disease, unspecified K21.9 Gastro-esophageal reflux disease without esophagitis Office Visit 11/24/2019 4:40p [facility] Tomas SWilfredo I50.9 Heart failure, Of [facility] Dillan, DO unspecified FACC I20.0 Unstable angina Office Visit 11/23/2019 [facility] Joi I11.0 Hypertensive 9:58a Assoc,pc MADDIE Pop heart disease Hospitalists with heart failure I50.20 Unspecified systolic (congestive) heart failure R07.9 Chest pain, unspecified E11.9 Type 2 diabetes mellitus without complications J44.9 Chronic obstructive pulmonary disease, unspecified Office Visit 11/23/2019 3:13p [facility] Tomas SWilfredo I50.9 Heart failure, Of [facility] Dillan, DO unspecified FACC I20.0 Unstable angina Office Visit 11/21/2019 8:00a [facility] Tomas SWilfredo I25.119 Athscl heart Of 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 unspecified Hospitalists E05.90 Thyrotoxicosis, unsp without thyrotoxic crisis or storm I50.9 Heart failure, unspecified J44.9 Chronic obstructive pulmonary disease, unspecified E11.9 Type 2 diabetes mellitus without complications R60.0 Localized edema Z95.1 Presence of aortocoronary bypass graft Office Visit 10/29/2019 8:55a [facility] Katerina R07.9 Chest pain, Assoc,pc MD Nii unspecified Hospitalists R79.89 Other specified abnormal findings of blood chemistry I50.9 Heart failure, unspecified E11.9 Type 2 diabetes mellitus without complications J44.9 Chronic obstructive pulmonary disease, unspecified Z95.1 Presence of aortocoronary bypass graft Office Visit 10/28/2019 3:19p [facility] Nehemiaheron Jaeger R07.9 Chest pain, Of Sonja Hirsch M.D., unspecified FACC, FASNC R79.89 Other specified abnormal findings of blood chemistry I25.10 Athscl heart disease of [place] coronary artery w/o ang pctrs Z95.1 Presence of aortocoronary bypass graft Office Visit 10/28/2019 [facility] Trinity Puentes, R07.9 Chest pain, 8:54a tania Gregory M.D. unspecified Hospitalists I21.4 Non-St elevation (Nstemi) myocardial infarction E03.9 Hypothyroidism, unspecified I50.9 Heart failure, unspecified E11.9 Type 2 diabetes mellitus without complications Office Visit 09/05/2019 10:20a [facility] Tomas S. I50.40 Unsp combined Of [employer] Referral Clerk Grimaldo, DO systolic and FACC diastolic (congestive) [...] pulmonary disease, unspecified Office Visit 07/21/2019 10:00a [facility] Tomas S. I95.9 Hypotension, Of [employer] Referral Clerk Grimaldo, DO unspecified FACC R07.9 Chest pain, [...] 12/29/2019 I25.119 Atherosclerotic heart disease of Tomas Grimaldo DO [facility] [place] coronary artery with unspecified angina pectoris 12/22/2019 [...] (congestive) Sinai Garcia M.D. heart failure 12/11/2019 R94.31 Abnormal electrocardiogram [ECG] Tomas Grimaldo DO [facility] [EKG] 12/11/2019 R07.9 Chest pain, unspecified MADDIE Schulz 12/11/2019 R07.9 Chest pain, unspecified Dao Dumont M.D., [facility], [facility] 12/11/2019 I11.0 Hypertensive heart disease with heart MADDIE Schulz failure 12/11/2019 I50.20 Unspecified systolic (congestive) MADDIE Schulz heart failure 12/11/2019 E11.40 Type 2 diabetes mellitus with MADDIE Schulz diabetic neuropathy, unspecified 12/11/2019 Z79.4 jail (current) use of insulin MADDIE Schulz 12/10/2019 R07.9 Chest pain, unspecified MADDIE Schulz 12/10/2019 E11.40 Type 2 diabetes mellitus with MADDIE Schulz diabetic neuropathy, unspecified 12/10/2019 I11.0 Hypertensive heart disease with heart MADDIE Schulz failure 12/10/2019 I50.20 Unspecified systolic (congestive) MADDIE Schulz heart failure 12/10/2019 J44.9 Chronic obstructive pulmonary MADDIE Schulz disease, unspecified 12/10/2019 Z79.4 jail (current) use of insulin MADDIE Schulz 12/05/2019 I50.9 Heart failure, unspecified Tomas Grimaldo, DO FACC 12/05/2019 I25.119 Atherosclerotic heart disease of Tomasnicole Grimaldo, DO FACC [place] coronary artery with unspecified angina pectoris 12/05/2019 E11.65 Type 2 diabetes mellitus with Tomas Grimaldo, DO FACC hyperglycemia 12/05/2019 E05.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 Tomas Grimaldo, DO FACC multinodular goiter without thyrotoxic crisis or storm 12/05/2019 Z95.1 Presence of aortocoronary bypass Tomas Grimaldo DO FACC graft 12/05/2019 I10 Essential (primary) hypertension Tomas Grimaldo DO FACC 12/05/2019 J44.9 Chronic obstructive pulmonary Tomas Grimaldo DO FACC disease, unspecified 12/05/2019 I73.9 Peripheral vascular disease, Tomas SWilfredo Grimaldo, DO FACC unspecified 12/05/2019 F17.201 Nicotine dependence, unspecified, in Tomas SWilfredo Grimaldo, DO FACC remission 12/05/2019 I45.19 Other right bundle-branch block Tomas Grimaldo, DO FACC 12/05/2019 I63.9 Cerebral infarction, unspecified Tomas Rosalba Grimaldo, DO FACC 12/05/2019 N18.9 Chronic kidney disease, unspecified Tomas Grimaldo, DO FACC 12/05/2019 Z95.2 Presence of prosthetic heart valve Tomas Grimaldo DO FACC 12/05/2019 I25.2 Old myocardial infarction Tomas Grimaldo DO FACC 12/05/2019 I25.5 Ischemic cardiomyopathy Tomas Grimaldo DO FACC 11/26/2019 I11.0 Hypertensive heart disease with heart Nicky Eleanor, ENGINE MECHANIC failure 11/26/2019 I50.23 Acute on chronic systolic Nicky Eleanor, ENGINE MECHANIC (congestive) heart failure 11/26/2019 I50.9 Heart failure, unspecified Tomas Grimaldo, DO FACC 11/26/2019 J96.01 Acute respiratory failure with Nicky Eleanor, ENGINE MECHANIC hypoxia 11/26/2019 I20.0 Unstable angina Nicky Eleanor, ENGINE MECHANIC 11/26/2019 I20.0 Unstable angina Tomas Grimaldo, DO FACC 11/26/2019 K21.9 Gastro-esophageal reflux disease Nicky Eleanor, ENGINE MECHANIC without esophagitis 11/26/2019 E11.9 Type 2 diabetes mellitus without Nicky Eleanor, ENGINE MECHANIC complications 11/25/2019 R94.31 Abnormal electrocardiogram [ECG] Tomas Grimaldo, DO FAC [EKG] 11/25/2019 E11.9 Type 2 diabetes mellitus without Nicky Eleanor, ENGINE MECHANIC complications 11/25/2019 J44.9 Chronic obstructive pulmonary Nicky Eleanor, ENGINE MECHANIC disease, unspecified 11/25/2019 K21.9 Gastro-esophageal reflux disease Nicky Eleanor, ENGINE MECHANIC without esophagitis 11/24/2019 I45.10 Unspecified right bundle-branch block Tomas Grimaldo, DO FACC 11/24/2019 I11.0 Hypertensive heart disease with heart Nicky Eleanor, ENGINE MECHANIC failure 11/24/2019 I50.9 Heart failure, unspecified Tomas Grimaldo, DO FACC 11/24/2019 E11.9 Type 2 diabetes mellitus without Nicky Eleanor, ENGINE MECHANIC complications 11/24/2019 I20.0 Unstable angina Tomas Grimaldo, DO FACC 11/24/2019 J44.9 Chronic obstructive pulmonary Nicky Eleanor, ENGINE MECHANIC disease, unspecified 11/24/2019 K21.9 Gastro-esophageal reflux disease Nicky Eleanor, ENGINE MECHANIC without esophagitis 11/23/2019 I45.10 Unspecified right bundle-branch block Tomas Grimaldo, DO FACC 11/23/2019 I11.0 Hypertensive heart disease with heart Joi Pop PA failure 11/23/2019 I50.9 Heart failure, unspecified Tomas Grimaldo, DO FACC 11/23/2019 I50.20 Unspecified systolic (congestive) Joi Pop PA heart failure 11/23/2019 I20.0 Unstable angina Tomas Grimaldo, DO FACC 11/23/2019 R07.9 Chest pain, unspecified Joi Pop PA 11/23/2019 E11.9 Type 2 diabetes mellitus without MADDIE Owen complications 11/23/2019 J44.9 Chronic obstructive pulmonary MADDIE Owen disease, unspecified 11/21/2019 I25.119 Atherosclerotic heart disease of Tomas Grimaldo, DO [facility] [place] coronary artery with unspecified angina pectoris 11/21/2019 E11.65 Type 2 diabetes mellitus with Tomas Grimaldo, DO [facility] hyperglycemia 11/21/2019 E05.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 Tomas Grimaldo, DO [facility] multinodular goiter without thyrotoxic crisis or storm 11/21/2019 I50.9 Heart failure, unspecified Tomas Grimaldo, DO [facility] 11/21/2019 Z95.1 Presence of aortocoronary bypass Tomas Grimaldo, DO [facility] graft 11/21/2019 I10 Essential (primary) hypertension Tomas Grimaldo, DO [facility] 11/21/2019 E78.5 Hyperlipidemia, unspecified Tomas Grimaldo, DO [facility] 11/02/2019 E11.65 Type 2 diabetes mellitus with Hector Ramírez MD hyperglycemia 11/02/2019 E05.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 Hector Ramírez MD multinodular goiter without thyrotoxic crisis or storm 11/02/2019 Z79.4 jail (current) use of insulin Hector Ramírez MD [...] Chest pain, unspecified Nehemiah Hirsch M.D., [facility], [facility] 10/29/2019 R07.9 Chest pain, unspecified Katerina [...] Chest pain, unspecified Nehemiah Hirsch M.D., [facility], [facility] 10/28/2019 R79.89 Other specified abnormal findings of Nehemiah Hirsch M.D., [facility], blood chemistry [facility] 10/28/2019 I25.10 Atherosclerotic heart disease of Nehemiah Hirsch M.D., [facility], [place] coronary artery without angina [facility] pectoris 10/28/2019 Z95.1 Presence of aortocoronary bypass Nehemiah Hirsch M.D., [facility], graft [facility] 10/28/2019 R07.9 Chest pain, unspecified Trinity Puentes M.D. 10/28/2019 R94.31 Abnormal electrocardiogram [ECG] Nehemiah Hirsch M.D., [facility], [EKG] [facility] 10/28/2019 I21.4 Non-St elevation (Nstemi) myocardial Trinity Puentes M.D. infarction 10/28/2019 E03.9 Hypothyroidism, unspecified Trinity Puentes M.D. 10/28/2019 I50.9 Heart failure, unspecified Trinity Puentes M.D. 10/28/2019 E11.9 Type 2 diabetes mellitus without Trinity Puentes M.D. complications 09/05/2019 I50.40 Unspecified combined systolic Tomas Grimaldo DO FACC (congestive) and diastolic (congestive) heart failure 09/05/2019 E11.69 Type 2 diabetes mellitus with other Tomas Grimaldo DO FACC specified complication 09/05/2019 I73.9 Peripheral vascular disease, Tomas Grimaldo DO FACC unspecified 09/05/2019 I10 Essential (primary) hypertension Tomas Grimaldo, DO FACC 09/05/2019 E78.5 Hyperlipidemia, unspecified Tomas Grimaldo, DO FACC 09/05/2019 F17.201 Nicotine dependence, unspecified, in Tomas Grimaldo, DO FACC remission 09/05/2019 I45.19 Other right bundle-branch block Tomas Grimaldo, DO FACC 09/05/2019 I63.9 Cerebral infarction, unspecified Tomas Grimaldo, DO FACC 09/05/2019 N18.9 Chronic kidney disease, unspecified Tomas Grimaldo, DO FACC 09/05/2019 Z95.2 Presence of prosthetic heart valve Tomas Grimaldo, DO FAC 09/05/2019 J44.9 Chronic obstructive pulmonary Tomasnicole Grimaldo, DO FAC disease, unspecified 08/30/2019 R07.9 Chest pain, unspecified Tomas Grimaldo, DO FAC 08/29/2019 I95.9 Hypotension, unspecified Tomas Grimaldo, DO FACC 08/29/2019 I95.9 Hypotension, unspecified Ica ECHO Schedule 07/21/2019 I95.9 Hypotension, unspecified Tomas Grimaldo, DO FACC 07/21/2019 R07.9 Chest pain, unspecified Tomas Grimaldo, DO FAC 07/21/2019 I50.40 Unspecified combined systolic Tomas Grimaldo, [...] unspecified Tomas S. Grimaldo, DO FACC 07/21/2019 I63.9 Cerebral infarction, unspecified Tomas Grimaldo, DO FACC 07/21/2019 J44.9 Chronic obstructive pulmonary Tomas Grimaldo, DO FACC disease, unspecified Plan of Treatment Future Appointment(s):01/19/2020 11:00 am - Winifred Ahumada MD at [facility]02/13/2020 11:00 am - Hector Ramírez MD at [facility]03/05/2020 10:20 am - Tomas Grimaldo DO FACC at [facility]12/05/2019 - Tomas Grimaldo DO FACCI50.9 Heart failure, gytoojkjhwrQ20.119 Atherosclerotic heart disease of [place] coronary artery with unspecified angina nojobwyzK22.65 Type 2 diabetes mellitus with hdacenqltaomoE88.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 multinodular goiter without thyrotoxic crisis or gsfmbC58.1 Presence of aortocoronary bypass ywrucH87 Essential (primary) cxdmiladuipjK66.9 Chronic obstructive pulmonary disease, jwkqaugqqqbX05.9 Peripheral vascular disease, cuxyrudscabE46.201 Nicotine dependence, unspecified, in abmlcsublQ32.19 Other right bundle-branch zyxpwI87.9 Cerebral infarction, jgrarrelztjI26.9 Chronic kidney disease, mhxemfzcmerQ50.2 Presence of prosthetic heart jzawyS32.2 Old myocardial cnimlrmamoR81.5 Ischemic cardiomyopathy Functional Status Description No Information Available Mental Status Description No Information Available Referrals Refer to Dr Reason for Referral Status Appt Date Uri Wallace DPM diabetic neuropathy Sent [address] [place] [address] [phone]
--- OUTSIDE RECORDS SUMMARY | 2020-01-23 03:37 | XMS REPORT | Continuity of Care Document ---
:1965 External Reference #:[id number] Author Name Jamaal Garcia D.O. (transmitted by agent of provider Isabela Brock) Address [address] [place] [address] Care Team Providers Name Role Phone HCP/LW on file Care Team Information Assistant Dean Unavailable [facility] - Spec/Tech, Care Team Information Assistant Dean [phone] Cardiovascular Winifred Ahumada MD - Pulmonary Care Team Information Assistant Dean [phone] Disease Femi Degroot MD - Vascular & Care Team Information Assistant Dean [phone] Interventional Radiology [facility] - Wound Care Care Team Information Assistant Dean [phone] Problems Active Problems Provider Date Type II [...] Medications SIG Qnty Indications Ordering Date Provider Baclofen 1 by mouth three times 30tabs M54.31 [facility], 01/18/2020 5mg a day as needed muscle Joan Hinton.Blas Tablets spasm Oxycodone-Acetamin 1 every 4 hours as 42tabs M54.31 [facility] 01[facility]2020 ophen needed severe pain Mo Hinton. 5-325mg Tablets Famotidine take 1 tablet by mouth 60tabs [facility], 12/18/2019 40mg 2 times per day for Joan Hinton.O. Tablets gastroesophageal reflux disease Furosemide 2 (80 [...] Flexpen 20 units before dinner 45ml E11.69 [facility], 10/12/2019 Jamaal D.O. 100Unit/ML Solution Pen-Inject Albuterol Sulfate 1-2 puffs inhaled Unknown 05/14/2019 HFA every 6 hours as 108(90Base) needed for shortness mcg/Act Aerosol of breath Incruse Ellipta Inhale One puff By 30units J44.9 [facility], 05/14/2019 Mouth Every Day Joan Hinton.O. 62.5mcg/Inh Aerosol Mineral Oil place 4-drops in ears 30units L20.9 [facility], 04/13/2019 Oil every week for Clay Hinton excessive cerumen and dry ear canals as needed Onetouch Delica use with diabetic 100units [facility], 01/30/2019 Lancets Fine 30G supplies five times a Clay Hinton day as directed 30G Misc BD Uf Mini Pen Use Up To 6 Times 400units [facility], 01/27/2019 Needle [id number] Daily as Directed For Clay Hinton Insulin Administration Onetouch Verio use 1-4 times daily as 1units [facility], 01/27/2019 directed Clay Hinton w/Device Kit Onetouch Verio test 1-4 daily as 200units E11.65 [facility], 01/27/2019 directed Clay Hinton Strips Aspirin Children's 1 by mouth daily Unknown 11/23/2018 81mg Pantoprazole Take One Tablet By 60tabs [facility], 05/26/2018 Sodium Mouth Twice A Day Clay Hinton 40mg Tablets DR Tylenol give 2 tablets by Unknown 05/26/2018 325mg mouth [id number] as Tablets needed for pain / otc Atorvastatin 1 by mouth every Unknown 08/20/2017 Calcium evening 80mg Tablets Docusate Sodium 1 cap by mouth twice a Unknown 08/20/2017 day as needed for 100mg Capsules constipation Lancets use as directed for 200units E11.65 [facility], 05/20/2017 [place] diabetic testing Clay Hinton Safety Misc BD Pen or appropriate needles 400units [facility], 05/20/2017 Needle/Mini/Ultraf for lantus/Novolog Clay Hinton ine/31G X 3/16" pen. use up to 6/day, as directed, for 31G X 5 mm Misc insulin administration Gabapentin 1 by three times a 90caps [facility], 300mg day. Clay Hinton Capsules History Medications Neomycin/Polymyxin/Dexamethasone 1 drop 4 times a 5ml [facility], 2018 - 3.5-05366-4.1 day left eye for Clay Hinton 10/20/2019 Suspension 5 days Tobradex 1 left eye three [address] [facility], 10/20/2019 - 0.3-0.1% Suspension times a day for .89 Jamaal D.O. 10/25/2019 5 days or 1 day after symptoms resolve. Novolog Mix 70/30 Prefilled Flexpen 30u in in the 45ml E11 [facility], 2018 - (70-30)100Unit/ML morning .69 Jamaal, D.O. 11/12/2019 Supn Fluconazole 2 tabs on day 1 15tabs [facility], 07/21/2019 - 200mg Tablets the 1 tab daily Jamaal D.O. 08/04/2019 for 2 weeks. Stop atorvastatin while taking this medication. Immunizations CPT Code Status Date Vaccine Lot # [id number] Given 07/19/2019 Influenza Virus Vaccine, Quadrivalent, Split, [id number] Preservative Free 48754 Given 09/01/2018 Influenza Virus Vaccine, Quadrivalent, Split, [id number] Preservative Free 17654 Given 07/08/2017 Influenza Virus Vaccine, Quadrivalent, Split, [id number] Preservative Free 83808 Given 01/18/2017 Adacel or Boostrix, TDaP [id number] Given 11/30/2016 Influenza Virus Vaccine, Quadrivalent, Split, [...] Result H/L Range Note Date Laboratory 12/21/2019 [facility] Surgical SEE RESULT 1 test finding [phone] Pathology BELOW Order Laboratory 12/21/2019 [facility] Troponin-I 0.07 ng/mL Critical < 0.03 2 test finding [phone] (TnI) high CBC Auto Diff 12/21/2019 [facility] White Blood 10.3 Normal 3.5-10.8 [phone] Count 10^3/uL Red Blood Count 4.17 10^6/uL [...] Cells % 0.0 Comp Metabolic Panel 12/21/2019 [facility] Sodium 139 mmol/L Normal 135-145 [phone] Potassium 3.8 mmol/L Normal 3.5-5.0 Chloride 105 [...] 44.0 >60 3 Laboratory test finding 12/21/2019 [facility] Lipase 17 U/L Normal 11.0-82.0 [phone] C Reactive Protein 8.07 mg/L High <8.01 Lactic Acid 1.9 mmol/L Normal 0.5-2.0 4 Troponin-I (TnI) 0.07 ng/mL Critical high <0.03 5 TSH (Thyroid Stim Horm) 0.42 mcIU/mL Normal 0.34-5.60 CBC Auto Diff 12/10/2019 [facility] White Blood 11.7 10^3/uL High 3.5 -10.8 [phone] Count Red Blood Count 4.50 10^6/uL Normal [...] Blood Cells % 0.0 Laboratory test 12/10/2019 [facility] Troponin-I (TnI) 0.01 ng/mL < 0.03 6 finding [phone] Comp Metabolic 12/10/2019 [facility] Sodium 138 mmol/L Normal 135- 145 Panel [phone] Potassium 4.2 mmol/L Normal 3.5-5.0 Chloride 102 [...] Egfr 38.8 >60 7 Laboratory test 12/10/2019 [facility] Magnesium 2.5 mg/dL Normal 1.9- 2.7 finding [phone] Lipase 22 U/L Normal 11.0-82.0 B-Type Natriuretic Peptide BNP 226 pg/mL High <=100 TSH (Thyroid Stim Horm) 1.38 mcIU/mL Normal 0.34-5.60 Laboratory test 12/07/2019 In House Hemoglobin A1c 8.1 finding Laboratory test 11/23/2019 [facility] B-Type Natriuretic 443 pg/mL High <=100 finding [phone] Peptide BNP Magnesium 2.1 mg/dL Normal 1.9-2.7 Comp Metabolic Panel 11/23/2019 [facility] Sodium 140 mmol/L Normal 135-145 [phone] Potassium 4.5 mmol/L Normal 3.5-5.0 Chloride 107 [...] Egfr 61.7 >60 8 Laboratory test 11/23/2019 [facility] Troponin-I (TnI) 0.02 ng/mL < 0.03 9 finding [phone] CBC Auto Diff 11/23/2019 [facility] White Blood 14.7 High 3.5-10.8 [phone] Count 10^3/uL Red Blood Count 3.97 10^6/uL [...] Red Blood Cells % 0.0 Inr/Protime 11/23/2019 [facility] Inr 0.97 Normal 0.82-1.09 10 [phone] Laboratory test 11/23/2019 [facility] Troponin-I 0.02 <0.03 11 finding [phone] (TnI) ng/mL Laboratory test 10/28/2019 [facility] Troponin-I 0.11 Critical <0.03 12 finding [phone] (TnI) ng/mL high Urine Culture 10/27/2019 [facility] Urine SEE 13 And [phone] Culture RESULT Sensitivities BELOW Urinalysis 10/27/2019 [facility] Urine Yellow Profile [phone] Color Urine Appearance Clear Urine Specific Viper 1.013 Normal 1.010-1.030 Urine pH 6.0 Normal [...] Cell Present Abnormal Absent Laboratory test 10/27/2019 [facility] Magnesium 2.2 mg/dL Normal 1.9- 2.7 finding [phone] Lipase 18 U/L Normal 11.0-82.0 Troponin-I (TnI) 0.04 ng/mL Critical high <0.03 14 C Reactive Protein 18.58 mg/L High <8.01 TSH (Thyroid Stim Horm) 0.09 mcIU/mL Low 0.34-5.60 B-Type Natriuretic Peptide BNP 120 pg/mL High <=100 T3 Free 4.50 pg/mL High 2.5-3.9 Free T4 (Free Thyroxine) 1.41 ng/dL High 0.61-1.12 Comp Metabolic Panel 10/27/2019 [facility] Sodium 133 mmol/L Low 135- 145 [phone] Potassium 3.9 mmol/L Normal 3.5-5.0 Chloride 98 [...] Egfr Non- 33.2 >60 Egfr 40.2 >60 15 CBC Auto Diff 10/27/2019 [facility] White Blood 10.2 10^3/uL Normal 3.5-10.8 [phone] Count Red Blood Count 4.56 10^6/uL Normal [...] Blood Cells % 0.1 Laboratory test 09/15/2019 [facility] Lactic Acid 1.5 mmol/L Normal 0.5-2.0 16 finding [phone] Comp Metabolic 09/15/2019 [facility] Sodium 135 mmol/L Normal 135- 145 Panel [phone] Potassium 4.2 mmol/L Normal 3.5-5.0 Chloride 102 [...] Non- 42.5 >60 Egfr 51.5 >60 17 Laboratory test finding 09/15/2019 [facility] Lipase 12 U/L Normal 11.0-82.0 [phone] C Reactive Protein 22.47 mg/L High <8.01 CBC Auto Diff 09/15/2019 [facility] White Blood 11.5 10^3/uL High 3.5 -10.8 [phone] Count Red Blood Count 4.67 10^6/uL Normal [...] Red Blood Cells % 0.0 Laboratory test 09/08/2019 In House Hemoglobin A1c 11.8 finding Urine Microalbumin 09/08/2019 [facility] Ur Microalbumin 26.1 mg/L Random [phone] (mg/L) Urine Creatinine 26.09 mg/dL Urine Microalbumin/Creatinine 100.0 High <31 Laboratory 08/20/2019 [facility] Point of Care 432 Critical 70-100 18 test finding [phone] Glucose mg/dL high Laboratory 08/20/2019 [facility] Glucose 495 High 70-100 test finding [phone] Confirmatory mg/dL Laboratory 08/20/2019 [facility] Point of Care > 444 Critical 70-100 19 test finding [phone] Glucose mg/dL high Laboratory 08/20/2019 [facility] Troponin-I 0.02 <0.04 20 test finding [phone] (TnI) ng/mL CBC Auto Diff 08/20/2019 [facility] White Blood 7.4 Normal 3.5-10.8 [phone] Count 10^3/uL Red Blood Count 4.74 10^6/uL [...] Red Blood Cells % 0.1 Inr/Protime 08/20/2019 [facility] Inr 0.88 Normal 0.82-1.09 21 [phone] Comp Metabolic Panel 08/20/2019 [facility] Sodium 130 mmol/L Low 135- 145 [phone] Potassium 4.8 mmol/L Normal 3.5-5.0 Chloride 96 [...] Egfr Non- 31.2 >60 Egfr 37.8 >60 22 Glucose 617 mg/dL Critical high 70-100 23 Laboratory test 08/20/2019 [facility] Troponin-I (TnI) 0.03 ng/mL < 0.04 24 finding [phone] Laboratory test 08/20/2019 [facility] Point of Care 351 mg/dL High 70 -100 25 finding [phone] Glucose 1 SEE RESULT BELOW Name: GABRIEL CHAVEZ : [address]: Trinity Puentes MD Acct: [id number] Unit: [id number] AGE: 54 Location: [place] [address] Re12/21/19 Dis: 12/22/19 SEX: F Status: DIS Ld SPEC: [id number] KYRA: 12/21/19- SUBM DR: Vick Thompson MD REQ: [id number] RECD: 12/22/19-1307 STATUS: MOIZ GRIJALVA DR: Sinai Garcia DO [...] 1239 END OF REPORT DEPARTMENT OF PATHOLOGY, [address] [place] [address] Mg Ruff M.D. Director [facility] # [id number] 2 Result TnIDx:0.07 Called to [id number] at: 04:12 by:[id number] Read back by: [id number] Troponin-I testing on Plasma Separator Tubes (PST) has a known false positive rate of 0.20-0.40%. All positive troponins reflex immediately to secondary confirmatory testing. Using the Quote Roller DxI 800 Access Immunoassay systems, the 99th [...] 5 Kidney failure <15 (or dialysis) 4 [facility] Severe Sepsis and Septic Shock Management Bundle Measure requires all lactic acids initially measuring >2.0 mmol/L be repeated. 5 Result TnIDx:0.07 Called to [id number] at: 01:38:13 by:[id number] Read back by: [id number] Troponin-I testing on Plasma Separator Tubes (PST) has a known false positive rate of 0.20-0.40%. All positive troponins reflex immediately to secondary confirmatory testing. Using the Quote Roller DxI 800 Access Immunoassay systems, the 99th percentile upper reference limit was demonstrated to be < 0.03 ng/mL. 6 Troponin-I testing on Plasma Separator Tubes (PST) has a known false positive rate of 0.20-0.40%. All positive troponins reflex immediately to secondary confirmatory testing. Using the UnicDiagnosia DxI 800 Access Immunoassay systems, the 99th [...] immediately to secondary confirmatory testing. Using the Quote Roller DxI 800 Access Immunoassay systems, the 99th percentile upper reference limit was demonstrated to be < 0.03 ng/mL. 10 Standard intensity warfarin therapeutic range: 2.0-3.0 High intensity warfarin therapeutic range: 2.5-3.5 11 Troponin-I testing on Plasma Separator Tubes (PST) has a known false positive rate of 0.20-0.40%. All positive troponins reflex immediately to secondary confirmatory testing. Using the Quote Roller DxI 800 Access Immunoassay systems, the 99th percentile upper reference limit was demonstrated to be < 0.03 ng/mL. 12 Result TnIDx:0.11 Called to [id number] at: 02:17:43 by:[id number] Read back by: [id number] Troponin-I testing on Plasma Separator Tubes (PST) has a known false positive rate of 0.20-0.40%. All positive troponins reflex immediately to secondary confirmatory testing. Using the Quote Roller DxI 800 Access Immunoassay systems, the 99th percentile upper reference limit was demonstrated to be < 0.03 ng/mL. 13 SEE RESULT BELOW Name: GABRIEL CHAVEZ : [address]: Dianna Calvillo MD Acct: [id number] Unit: [id number] AGE: 54 Location: [place] [address] Re10/28/19 SEX: F Status: ADM IN SPEC: [id number] KYRA: 10/28/19-[address] [facility] [address]: Jesse PERKINS REQ: [id number] RECD: 10/28/19 STATUS: MJ GRIJALVA DR: [facility] Jamaal Garcia DO _ SOURCE: URINE SPDESC: ORDERED: Urine Culture Procedure Result Reported Site Urine Culture Final 10/29/19- 1154 ML Organism 1 AEROCOCCUS URINAE [place] Count >100,000 (Many) CFU/ML Organism 2 NORMAL DICKSON [place] Count 1-10,000 (Few) CFU/ML Aerococcus isolates are too fastidious for routine susceptibility studies. Aerococcus are usually susceptible to penicillin, amoxicillin, piperacillin, cefipime, rifampin and vancomycin. Moderate to good activity occurs with the quinolones, tetracyclines and erythromycin. ([employer] [place] and Textbook of Diagnostic Microbiology 6th Ed. 2006, p. 705-6.) * ML - Main Lab . END OF REPORT DEPARTMENT OF PATHOLOGY, [address] [place] [address] Mg Ruff M.D. Director [facility] # [id number] 14 Result TnIDx:0.04 Called to [id number] at: 23:33:09 by:[id number] Read back by: [id number] Troponin-I testing on Plasma Separator Tubes (PST) has a known false positive rate of 0.20-0.40%. All positive troponins reflex immediately to secondary confirmatory testing. Using the Quote Roller DxI 800 Access Immunoassay systems, the 99th percentile upper reference limit was demonstrated to be < 0.03 ng/mL. 15 Because ethnic data is not always [...] 5 Kidney failure <15 (or dialysis) 16 [facility] Severe Sepsis and Septic Shock Management [...] 5 Kidney failure <15 (or dialysis) 18 Steel Detailer: [id number] 19 Steel Detailer: [id number] 20 Troponin-I testing on Plasma Separator Tubes (PST) has a known false positive rate of 0.20-0.40%. All positive troponins reflex immediately to secondary confirmatory testing. Using the Quote Roller DxI 800 Access Immunoassay systems, the 99th percentile upper reference limit was demonstrated to be < 0.03 ng/mL. 21 Standard intensity warfarin therapeutic range: 2.0-3.0 High intensity warfarin therapeutic range: 2.5-3.5 22 Because ethnic data is not always [...] 5 Kidney failure <15 (or dialysis) 23 Critical Result GLU:617 Called to [id number] at: 17:29:14 by:[id number] Read back by:[id number] 24 Troponin-I testing on Plasma Separator Tubes (PST) has a known false positive rate of 0.20-0.40%. All positive troponins reflex immediately to secondary confirmatory testing. Using the Quote Roller DxI 800 Access Immunoassay systems, the 99th percentile upper reference limit was demonstrated to be < 0.03 ng/mL. 25 Steel Detailer: [id number] Procedures Date Code Description Status 01/10/2020 668769336 Diabetic Foot Exam Completed 10/10/2019 840886019 Diabetic Retinal Eye Exam Completed 10/06/2019 51073 X-Ray Elbow Three Views Completed 02/15/2019 [id number] Mammogram Completed Medical Devices Description No Information Available Encounters Type Date Location Provider Dx Diagnosis Office Visit 01/18/2020 Main Office Jamaal Garcia, M54.31 Sciatica, right 11:45a D.O. 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 mellitus with other specified complication E11.65 Type 2 diabetes mellitus with hyperglycemia Z79.4 supervisor intermediates (current) use of insulin N18.3 Chronic kidney disease, stage 3 (moderate) I70.234 Athscl [facility] art of right leg w ulcer of [...] kidney disease, stage 3 (moderate) I70.234 Athscl [facility] cross art of right leg w ulcer of [...] kidney disease, stage 3 (moderate) I70.234 Athscl [facility] cross art of right leg w ulcer of [...] with hyperglycemia I10 Essential (primary) hypertension Z79.4 supervisor intermediates (current) use of insulin N18.3 Chronic kidney disease, stage 3 (moderate) I70.234 Athscl [facility] cross art of right leg w ulcer of heel and midfoot J44.9 Chronic obstructive pulmonary disease, unspecified F17.211 Nicotine dependence, cigarettes, in remission E11.69 Type 2 diabetes mellitus with other specified complication I50.32 Chronic diastolic (congestive) heart failure Assessments Date Code Description Provider 01/18/2020 M54.31 Sciatica, right side Jamaal Garcia D.OWilfredo 01/18/2020 M54.5 Low back pain Jamaal Garcia D.OWilfredo 01/18/2020 J44.9 Chronic obstructive pulmonary disease, Jamaal Garcia D.O. unspecified 01/18/2020 E11.69 Type 2 diabetes mellitus with other specified Jamaal Garcia D.O. complication 01/18/2020 M79.604 Pain in right leg Jamaal Garcia D.OWilfredo 01/18/2020 E05.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 multinodular goiter Jamaal Garcia D.O. without thyrotoxic crisis or storm 01/18/2020 Z79.4 supervisor intermediates (current) use of insulin Jamaal Garcia D.O. 01/12/2020 Z79.4 supervisor intermediates (current) use of insulin Jamaal Garcia, D.O. 01/12/2020 J44.9 Chronic obstructive pulmonary disease, Winston Garciaon, D.O. unspecified 01/12/2020 E11.69 Type 2 diabetes mellitus with other specified SophamletkWinstonon, D.O. complication 01/12/2020 M79.604 Pain in right leg Jamaal Garcia D.O. 01/12/2020 E05.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 multinodular goiter SopWinston singhon, D.O. without thyrotoxic crisis or storm 01/12/2020 F17.211 Nicotine dependence, cigarettes, in remission Jamaal Garcia, D.O. 01/12/2020 K21.9 Gastro-esophageal reflux disease without SopWinston singhon, D.O. 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 leg [...] 12/07/2019 F17.211 Nicotine dependence, cigarettes, in remission SopJamaal singh, D.O. 12/07/2019 N18.3 Chronic kidney disease, stage 3 (moderate) Jamaal Garcia, D.O. 12/07/2019 K21.9 Gastro-esophageal reflux disease without Jamaal Garcia D.O. 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 leg with ulcerat 12/07/2019 J44.9 Chronic obstructive pulmonary disease, Jamaal Garcia D.O. unspecified 12/07/2019 F17.211 Nicotine dependence, cigarettes, in remission Jamaal Garcia D.O. 12/07/2019 I10 Essential (primary) hypertension Jamaal Garcia D.O. 11/13/2019 E11.69 Type 2 diabetes mellitus with other specified Jamaal Garcia D.O. complication 11/13/2019 E11.65 Type 2 diabetes mellitus with hyperglycemia Jamaal Garcia D.O. 11/13/2019 Z79.4 supervisor intermediates (current) use of insulin Jamaal Garcia D.O. 11/13/2019 N18.3 Chronic kidney disease, stage 3 (moderate) Jamaal Garcia D.O. 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 leg with ulcerat 11/13/2019 J44.9 Chronic obstructive pulmonary disease, Jamaal Garcia D.O. unspecified 11/13/2019 F17.211 Nicotine dependence, cigarettes, in remission Jamaal Garcia D.O. 11/13/2019 I50.32 Chronic diastolic (congestive) heart failure Jamaal Garcia D.O. 11/13/2019 I21.9 Acute myocardial infarction, unspecified Jamaal Garcia D.O. 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 without thyrotoxic crisis or storm 10/20/2019 E11.69 Type 2 diabetes mellitus with other specified Jamaal Garcia D.O. complication 10/20/2019 E11.65 Type 2 diabetes mellitus with hyperglycemia Jamaal Garcia D.O. 10/20/2019 I10 Essential (primary) hypertension Jamaal Garcia D.O. 10/20/2019 Z79.4 long-term (current) use of insulin RadhaJamaal D.O. 10/20/2019 N18.3 Chronic kidney disease, stage 3 (moderate) Radha Jamaal D.O. 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 leg with ulcerat 10/20/2019 H10.89 Other conjunctivitis Jamaal Garcia D.O. 10/12/2019 E11.69 Type 2 diabetes mellitus with other specified Jamaal Garcia D.O. complication 10/12/2019 M77.11 Lateral epicondylitis, right elbow Jamaal Garcia D.O. 10/12/2019 M25.521 Pain in right elbow Miguel AngelbarbJamaal D.O. 10/12/2019 E11.65 Type 2 diabetes mellitus with hyperglycemia Jamaal Garcia D.O. 10/12/2019 I10 Essential (primary) hypertension Jamaal Garcia D.O. 10/12/2019 Z79.4 long-term (current) use of insulin Jamaal Garcia D.O. 10/12/2019 N18.3 Chronic kidney disease, stage 3 (moderate) RadhaJamaal D.O. 10/12/2019 I70.234 Atherosclerosis of [place] cross arteries of right RadhaJamaal D.O. leg with ulcerat 10/12/2019 J44.9 Chronic [...] (primary) hypertension Jamaal Garcia D.O. 09/08/2019 Z79.4 long-term (current) use of insulin Jamaal Garcia D.O. 09/08/2019 N18.3 Chronic kidney disease, stage 3 (moderate) Jamaal Garcia D.O. 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 leg with ulcerat 09/08/2019 J44.9 Chronic obstructive pulmonary disease, Jamaal Garcia D.O. unspecified 09/08/2019 F17.211 Nicotine dependence, cigarettes, in remission Jamaal Garcia D.O. 09/08/2019 E11.69 Type 2 diabetes mellitus with other specified Jamaal Garcia D.O. complication 09/08/2019 I50.32 Chronic diastolic (congestive) heart failure Jamaal Garcia D.O. Plan of Treatment Future Appointment(s):01/25/2020 2:30 pm - Jamaal Garcia D.O. at Main Uyqtfv3803/15/2020 11:00 am - Jamaal Garcia D.O. at Main Nqdhvd8601/18/2020 - Jamaal Garcia D.O.M54.31 Sciatica, right sideNew Medication:Baclofen 5 mg - 1 by mouth three times a day as needed muscle spasmOxycodone-Acetaminophen 5-325 mg - 1 every 4 hours as needed severe painM54.5 Low back painFollow up:1 week phone visit check in for low back pain.J44.9 Chronic obstructive pulmonary disease, trklkeqildoT47.69 Type 2 diabetes mellitus with other specified xwjksaxdprfkT96.604 Pain in right legComments:Time of phone call was 16min long.E05.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 multinodular goiter without thyrotoxic crisis or szcibQ58.4 supervisor intermediates (current) use of insulin Functional Status Description No Information Available Mental Status Description No Information Available Referrals Refer to Dr Reason for Referral Status Appt Date Winifred Ahumada MD Chronic lung disease with poor follow up. Sent Recent hospitalization with CTA with hilar lymphadenopathy. Consider follow up options. Consult and Treat [facility] [address], [address] [place] [address] [phone] [facility] consider alternative options for colon cancer Sent 11/14/2019 screening without sedation. + fit test. Consult and Treat [address] [place] [address] [phone]
--- OUTSIDE RECORDS SUMMARY | 2020-01-23 03:37 | XMS REPORT | Continuity of Care Document ---
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 Medicine Problems Active Problems Provider Date Old myocardial infarction Tomas Grimaldo DO [facility] Onset: 02/18/2017 Atherosclerosis of [place] arteries of Kingsley Shaw MD, [facility], Onset: right leg with ulceration of heel and FSCAI midfoot Atherosclerosis of [place] arteries of Kingsley Shaw MD, [facility], Onset: left leg with ulceration of other part FSCAI of foot Chronic obstructive lung disease Winifred Ahumada MD Onset: 05/19/2017 Encounter for screening for malignant Winifred Ahumada MD Onset: 05/19/2017 neoplasm of respiratory organs Nicotine dependence, cigarettes, with Winifred Ahumada MD Onset: 05/19/2017 other nicotine-induced disorders Chronic diastolic heart failure Kingsley Shaw MD, [facility], Onset: 07/01/2017 FSCAI Atherosclerosis of [place] arteries of Kingsley Shaw MD, [facility], Onset: 04/2017 right leg with ulceration [...] Femi Degroot M.D. Onset: 06/28/2019 atherosclerosis of [place] artery of limb Social History Type Date [...] Inj, Regadenoson, 0.1 MG Tomas Grimaldo, DO [facility] 08/30/2019 Injection Technetium TC 99M Tomas Grimaldo, DO [facility] 08/30/2019 Tetrofosmin, Per Unit Dose Up To 40 Millicuries Injection Technetium TC 99M Tomas Grimaldo, DO [facility] 08/30/2019 Tetrofosmin, Per Unit Dose Up To 40 Millicuries Injection Inj, Regadenoson, 0.1 MG Tomas Grimaldo, DO [facility] 04/25/2018 Injection Technetium TC 99M Tomas Grimaldo, DO [facility] 04/25/2018 Tetrofosmin, Per Unit Dose Up To 40 Millicuries Injection Inj, Regadenoson, 0.1 MG Tomas Grimaldo, DO [facility] 03/31/2017 Injection Technetium TC 99M Tomas Grimaldo, DO [facility] 03/31/2017 Tetrofosmin, Per Unit Dose Up [...] Result H/L Range Note Laboratory test 12/07/2019 [facility] Free T4 1.06 ng/dL Normal 0.61-1.[address] ([place] [address] Thyroxine [phone] ) TSH (Thyroid Stim Horm) 0.69 mcIU/mL Normal 0.34-5.60 T3 Total 137 ng/dL Normal 87-178 Comp Metabolic 12/07/2019 [facility] Sodium 139 mmol/L Normal 135-[address] [place] [address] [phone] Potassium 4.5 mmol/L Normal 3.5-5.0 Chloride 103 [...] Egfr 43.6 >60 1 CBC Auto 12/07/2019 [facility] White Blood 11.1 10^3/uL High 3.5-10.[address] [place] [address] [phone] Red Blood Count 4.01 10^6/uL Normal 3.70-4.87 [...] dialysis) Procedures Date Code Description Status 12/29/2019 71490 Myocardial Perfusion Imaging Tomographic (Spect) Completed Multiple Studies 12/11/2019 27235 Treadmill Interp/Report Only Completed 12/11/2019 89920 Stress Test Supervsn W/Out I/R Completed 12/05/2019 42705 EKG Tracing & Interpretation Completed 11/25/2019 42566 EKG, Interpretation Only Completed 11/24/2019 69608 EKG, Interpretation Only Completed 11/23/2019 34031 EKG, Interpretation Only Completed 11/21/2019 05027 EKG Tracing & Interpretation Completed 10/29/2019 03669 ECHO Transthorasic Realtime 2D W Doppler & Color Flow Completed Hosp 10/28/2019 90959 EKG, Interpretation Only Completed 08/30/2019 07180 Stress Test Completed 08/30/2019 62805 Myocardial Perfusion Imaging Tomographic (Spect) Completed Multiple Studies 08/29/2019 95232 ECHO Transthoracic, Real-Time 2D With Doppler And Color Completed Flow 08/29/2019 51985 ECHO Transthoracic, Real-Time 2D With Doppler And Color Completed Flow 07/21/2019 59524 EKG Tracing & Interpretation Completed 10/13/2013 82640853 Mammogram Completed Medical Devices Description No Information Available Encounters Type Date Location Provider Dx Diagnosis Office Visit 12/11/2019 [facility] Jeison Fuentes, R07.9 Chest pain, 10:19a [place] unspecified Hospitalists I11.0 Hypertensive heart disease with heart failure I50.20 Unspecified systolic (congestive) heart failure E11.40 Type 2 diabetes mellitus with diabetic neuropathy, unsp 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 Office Visit 12/10/2019 10:18a [place] Noni Mchugh R07.9 Chest pain, Assoc,MADDIE Ly unspecified Hospitalists E11.40 Type 2 diabetes mellitus with diabetic neuropathy, unsp I11.0 Hypertensive heart disease with heart failure I50.20 Unspecified systolic (congestive) heart failure J44.9 Chronic obstructive pulmonary disease, unspecified Z79.4 care home (current) use of insulin Office Visit 12/05/2019 8:00a [facility] Tomas Navarrete I50.9 Heart failure, Of Visual Artist Grimaldo, DO unspecified FACC I25.119 Athscl heart disease of [place] cor art w unsp ang pctrs E11.65 [...] I25.5 Ischemic cardiomyopathy Office Visit 11/26/2019 11:54a [facility] Tomas S. I50.9 Heart failure, Of [facility], DO unspecified FACC I20.0 Unstable angina Office Visit 11/26/2019 10:00a [facility] Nicky Eleanor, I11.0 Hypertensive heart Assoc,pc MEDICAL TERMINOLOGIST disease with heart Hospitalists failure I50.23 Acute on chronic systolic (congestive) heart failure J96.01 Acute respiratory failure with hypoxia I20.0 Unstable angina K21.9 Gastro-esophageal reflux disease without esophagitis E11.9 Type 2 diabetes mellitus without complications Office Visit 11/25/2019 [facility] Nicky Eleanor, E11.9 Type 2 diabetes 9:59a Assoc,pc MEDICAL TERMINOLOGIST mellitus without Hospitalists complications J44.9 Chronic obstructive pulmonary disease, unspecified K21.9 Gastro-esophageal reflux disease without esophagitis Office Visit 11/24/2019 4:40p [facility] Tomas S. I50.9 Heart failure, Of [facility] Grimaldo, DO unspecified FACC I20.0 Unstable angina Office Visit 11/24/2019 9:58a [facility] Nicky Eleanor, I11.0 Hypertensive heart Assoc,pc MEDICAL TERMINOLOGIST disease with heart Hospitalists failure E11.9 Type 2 diabetes mellitus without complications J44.9 Chronic obstructive pulmonary disease, unspecified K21.9 Gastro-esophageal reflux disease without esophagitis Office Visit 11/23/2019 [facility] Jio I11.0 Hypertensive 9:58a Assoc,pc MADDIE Pop heart disease Hospitalists with heart failure I50.20 Unspecified systolic (congestive) heart failure R07.9 Chest pain, unspecified E11.9 Type 2 diabetes mellitus without complications J44.9 Chronic obstructive pulmonary disease, unspecified Office Visit 11/23/2019 3:13p [facility] Tomas aNvarrete I50.9 Heart failure, Of Sonja Grimaldo, DO unspecified FACC I20.0 Unstable angina Office Visit 11/21/2019 8:00a [facility] Tomas SWilfredo I25.119 Athscl heart Of Sonja Grimaldo, DO disease of FACC [place] cor art w unsp ang pctrs E11.65 Type 2 diabetes mellitus with hyperglycemia 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 unspecified Hospitalists E05.90 Thyrotoxicosis, unsp without thyrotoxic crisis or storm I50.9 Heart failure, unspecified J44.9 Chronic obstructive pulmonary disease, unspecified E11.9 Type 2 diabetes mellitus without complications R60.0 Localized edema Z95.1 Presence of aortocoronary bypass graft Office Visit 10/29/2019 8:55a [facility] Katerina R07.9 Chest pain, Assoc,tania Bales MD unspecified Hospitalists R79.89 Other specified abnormal findings of blood chemistry I50.9 Heart failure, unspecified E11.9 Type 2 diabetes mellitus without complications J44.9 Chronic obstructive pulmonary disease, unspecified Z95.1 Presence of aortocoronary bypass graft Office Visit 10/28/2019 3:19p [facility] Nehemiah Jaeger R07.9 Chest pain, Of [facility] Nichelle Hirsch, unspecified FACC, FASNC R79.89 Other specified abnormal findings of blood chemistry I25.10 Athscl heart disease of [place] coronary artery w/o ang pctrs Z95.1 Presence of aortocoronary bypass graft Office Visit 10/28/2019 [facility] Trinity Deloris, R07.9 Chest pain, 8:54a tania Gregory M.D. unspecified Hospitalists I21.4 Non-St elevation (Nstemi) myocardial infarction E03.9 Hypothyroidism, unspecified I50.9 Heart failure, unspecified E11.9 Type 2 diabetes mellitus without complications Office Visit 09/05/2019 10:20a [facility] Tomas S. I50.40 Unsp combined Of [...] pulmonary disease, unspecified Office Visit 07/21/2019 10:00a [facility] Tomas SWilfredo I95.9 Hypotension, Of Sonja [...] disease of Tomas Rosalba Grimaldo, DO FACC [place] coronary artery with unspecified angina pectoris 12/22/2019 [...] R07.9 Chest pain, unspecified Dao Dumont M.D., [facility] 12/11/2019 I11.0 Hypertensive heart disease with heart MADDIE Schulz failure 12/11/2019 I50.20 Unspecified systolic (congestive) MADDIE Schulz heart failure 12/11/2019 E11.40 Type 2 diabetes mellitus with MADDIE Schulz diabetic neuropathy, unspecified 12/11/2019 Z79.4 care home (current) use of insulin MADDIE Schulz 12/10/2019 R07.9 Chest pain, unspecified MADDIE Schulz 12/10/2019 E11.40 Type 2 diabetes mellitus with MADDIE Schulz diabetic neuropathy, unspecified 12/10/2019 I11.0 Hypertensive heart disease with heart MADDIE Schulz failure 12/10/2019 I50.20 Unspecified systolic (congestive) MADDIE Schulz heart failure 12/10/2019 J44.9 Chronic obstructive pulmonary MADDIE Schulz disease, unspecified 12/10/2019 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 MADDIE Schulz 12/05/2019 I50.9 Heart failure, unspecified Tomas Grimaldo DO FACC 12/05/2019 I25.119 Atherosclerotic heart disease of Tomas Grimaldo, DO FACJohn [place] coronary artery with unspecified angina pectoris 12/05/2019 [...] Hypertensive heart disease with heart Nicky Eleanor, MEDICAL TERMINOLOGIST failure 11/26/2019 I50.23 Acute on chronic systolic Nicky Eleanor, MEDICAL TERMINOLOGIST (congestive) heart failure 11/26/2019 I50.9 Heart failure, unspecified Tomas Grimaldo, DO FACC 11/26/2019 J96.01 Acute respiratory failure with Nicky Eleanor, MEDICAL TERMINOLOGIST hypoxia 11/26/2019 I20.0 Unstable angina Nicky Eleanor, MEDICAL TERMINOLOGIST 11/26/2019 I20.0 Unstable angina Tomas Grimaldo, DO FACC 11/26/2019 K21.9 Gastro-esophageal reflux disease Nicky Eleanor, MEDICAL TERMINOLOGIST without esophagitis 11/26/2019 E11.9 Type 2 diabetes mellitus without Nicky Eleanor, MEDICAL TERMINOLOGIST complications 11/25/2019 R94.31 Abnormal electrocardiogram [ECG] Tomas Grimaldo, DO FAC [EKG] 11/25/2019 E11.9 Type 2 diabetes mellitus without Nicky Eleanor, MEDICAL TERMINOLOGIST complications 11/25/2019 J44.9 Chronic obstructive pulmonary Nicky Eleanor, MEDICAL TERMINOLOGIST disease, unspecified 11/25/2019 K21.9 Gastro-esophageal reflux disease Nicky Eleanor, MEDICAL TERMINOLOGIST without esophagitis 11/24/2019 I45.10 Unspecified right bundle-branch block Tomas Grimaldo, DO FACC 11/24/2019 I11.0 Hypertensive heart disease with heart Nicky Eleanor, MEDICAL TERMINOLOGIST failure 11/24/2019 I50.9 Heart failure, unspecified Tomas Grimaldo, DO FACC 11/24/2019 E11.9 Type 2 diabetes mellitus without Nicky Eleanor, MEDICAL TERMINOLOGIST complications 11/24/2019 I20.0 Unstable angina Tomas Grimaldo, DO FACC 11/24/2019 J44.9 Chronic obstructive pulmonary Nicky Eleanor, MEDICAL TERMINOLOGIST disease, unspecified 11/24/2019 K21.9 Gastro-esophageal reflux disease Nicky Eleanor, MEDICAL TERMINOLOGIST without esophagitis 11/23/2019 I45.10 Unspecified right bundle-branch [...] heart disease of Tomas Grimaldo, DO FACC [place] coronary artery with unspecified angina pectoris 11/21/2019 E11.65 Type 2 diabetes mellitus with Tomas Grimaldo, DO FAC hyperglycemia 11/21/2019 E05.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 Tomsanciole Sernano, DO FACC multinodular goiter without thyrotoxic crisis or storm 11/21/2019 I50.9 Heart failure, unspecified Tomas Grimaldo, DO FACC 11/21/2019 Z95.1 Presence of aortocoronary bypass Tomasnicole Sernano, DO FACC graft 11/21/2019 I10 Essential (primary) hypertension Tomas Grimaldo, DO [facility] 11/21/2019 E78.5 Hyperlipidemia, unspecified Tomas Grimaldo, DO FAC 11/02/2019 E11.65 Type 2 diabetes mellitus with Hector Ramírez MD hyperglycemia 11/02/2019 E05.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 Hector Ramírez MD multinodular goiter without thyrotoxic crisis or storm 11/02/2019 Z79.4 care home (current) use of insulin Hector Ramírez MD [...] R07.9 Chest pain, unspecified Nehemiah Hirsch M.D., [facility], [facility] 10/29/2019 R07.9 Chest pain, unspecified Katerina Bales MD 10/29/2019 R79.89 Other specified abnormal findings of Katerina Balse MD blood chemistry 10/29/2019 I50.9 Heart failure, unspecified Katerina Bales MD 10/29/2019 E11.9 Type 2 diabetes mellitus without Katerina Bales MD complications 10/29/2019 J44.9 Chronic obstructive pulmonary Katerina Bales MD disease, unspecified 10/29/2019 Z95.1 Presence of aortocoronary bypass Katerina Bales MD graft 10/28/2019 R07.9 Chest pain, unspecified Nehemiah Hirsch M.D., [facility], FASNM 10/28/2019 R79.89 Other specified abnormal findings of Nehemiah Hirsch M.D., [facility], blood chemistry FASNC 10/28/2019 I25.10 Atherosclerotic heart disease of Nehemiah Hirsch M.D., [facility], [place] coronary artery without angina [facility] pectoris 10/28/2019 Z95.1 Presence of aortocoronary bypass Nehemiah Hirsch M.D., [facility], graft FASNM 10/28/2019 R07.9 Chest pain, unspecified Trinity Puentes M.D. 10/28/2019 R94.31 Abnormal electrocardiogram [ECG] Nehemiah Hirsch M.D., [facility], [EKG] [facility] 10/28/2019 I21.4 Non-St elevation (Nstemi) myocardial Trinity Puentes M.D. infarction 10/28/2019 E03.9 Hypothyroidism, unspecified Trinity Puentes M.D. 10/28/2019 I50.9 Heart failure, unspecified Trinity Puentes M.D. 10/28/2019 E11.9 Type 2 diabetes mellitus without Trinity Puentes M.D. complications 09/05/2019 I50.40 Unspecified combined systolic Tomas Grimaldo DO [facility] (congestive) and diastolic (congestive) heart failure 09/05/2019 E11.69 Type 2 diabetes mellitus with other Tomas Grimaldo, DO [facility] specified complication 09/05/2019 I73.9 Peripheral vascular disease, Tomas Grimaldo DO [facility] unspecified 09/05/2019 I10 Essential (primary) hypertension Tomas Grimaldo DO [facility] 09/05/2019 E78.5 Hyperlipidemia, unspecified Tomas Grimaldo DO [facility] 09/05/2019 F17.201 Nicotine dependence, unspecified, in Tomas Grimaldo DO [facility] remission 09/05/2019 I45.19 Other right bundle-branch block Tomas Grimaldo DO [facility] 09/05/2019 I63.9 Cerebral infarction, unspecified Tomas Grimaldo DO [facility] 09/05/2019 N18.9 Chronic kidney disease, unspecified Tomas Grimaldo DO [facility] 09/05/2019 Z95.2 Presence of prosthetic heart valve Tomas Grimaldo DO [facility] 09/05/2019 J44.9 Chronic obstructive pulmonary Tomas [...] MD at [facility]02/13/2020 11:00 am - Hector Ramírez MD at [facility]03/05/2020 10:20 am - Tomas Grimaldo DO FACC at [facility]12/05/2019 - Tomas Grimaldo DO FACCI50.9 Heart failure, wjyphgaxbgtM42.119 Atherosclerotic heart disease of [place] coronary artery with unspecified angina tycjwfdjR01.65 Type 2 diabetes mellitus with owzgcddgwklziT84.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 multinodular goiter without thyrotoxic crisis or izbqtX76.1 Presence of aortocoronary bypass vxgdgT21 Essential (primary) sbwhofvxpkcxR49.9 Chronic obstructive pulmonary disease, lcayrpbpscmD20.9 Peripheral vascular disease, zfrbvltgpteZ48.201 Nicotine dependence, unspecified, in vmwflaamcG55.19 Other right bundle-branch rtbeeG55.9 Cerebral infarction, wyopaxkqoodP00.9 Chronic kidney disease, wyntomsggdpJ96.2 Presence of prosthetic heart zybwwM58.2 Old myocardial rggyaumaplO36.5 Ischemic cardiomyopathy Functional Status Description No Information Available Mental Status Description No Information Available Referrals Refer to Dr Reason for Referral Status Appt Date Uri Wallace DPM diabetic neuropathy Sent [address] [place] [address] [phone]
--- OUTSIDE RECORDS SUMMARY | 2020-01-23 03:37 | XMS REPORT | Continuity of Care Document ---
:1965 External Reference #:[id number] Author Name Jamaal Garcia D.O. (transmitted by agent of provider Kenyatta Brown) Address [address] [place] [address] Care Team Providers Name Role Phone HCP/LW on file Care Team Information Scale Balancer Unavailable [facility] - Spec/[facility], Care Team Information Scale Balancer [phone] Cardiovascular Winifred Ahumada MD - Pulmonary Care Team Information Scale Balancer Disease Femi Degroot MD - Vascular & Care Team Information Scale Balancer Interventional Radiology [facility] - Wound Care Care Team Information Scale Balancer Problems Active Problems Provider Date Type II [...] 1 by mouth three times 30tabs M54.31 [facility], 01/18/2020 5mg a day as needed muscle Joan Hinton.Blas Tablets spasm Oxycodone-Acetamin 1 every 4 hours [facility]tabs [facility]54.31 [facility]2020 ophen needed severe pain Mo Hinton. 5-325mg Tablets Famotidine take 1 tablet by mouth 60tabs [facility], 12/18/2019 40mg 2 times per day for [...] Flexpen 20 units before dinner 45ml E11.69 [facility], 10/12/2019 Jamaal D.O. 100Unit/ML Solution Pen-Inject Albuterol Sulfate 1-2 puffs inhaled Unknown 05/14/2019 HFA every 6 hours as 108(90Base) needed for shortness mcg/Act Aerosol of breath Incruse Ellipta Inhale One puff By 30units J44.9 [facility], 05/14/2019 Mouth Every Day Joan Hinton.O. 62.5mcg/Inh Aerosol Mineral Oil place 4-drops in ears 30units L20.9 [facility], 04/13/2019 Oil every week for Clay Hinton excessive cerumen and dry ear canals as needed Onetouch Delica use with diabetic 100units [facility], 01/30/2019 Lancets Fine 30G supplies five times a Clay Hinton day as directed 30G Misc BD Uf Mini Pen Use Up To 6 Times 400units [facility], 01/27/2019 Needle [id number] Daily as Directed For Clay Hinton Insulin Administration Onetouch Verio use 1-4 times daily as 1units [facility], 01/27/2019 directed Clay Hinton w/Device Kit Onetouch Verio test 1-4 daily as 200units E11.65 [facility], 01/27/2019 directed Clay Hinton Strips Aspirin Children's 1 by mouth daily Unknown 11/23/2018 81mg Pantoprazole Take One Tablet By 60tabs [facility], 05/26/2018 Sodium Mouth Twice A Day Clay Hinton 40mg Tablets DR Tylenol give 2 tablets by Unknown 05/26/2018 325mg mouth [id number] as Tablets needed for pain / otc Atorvastatin 1 by mouth every Unknown 08/20/2017 Calcium evening 80mg Tablets Docusate Sodium 1 cap by mouth twice a Unknown 08/20/2017 day as needed for 100mg Capsules constipation Lancets use as directed for 200units E11.65 [facility], 05/20/2017 [place] diabetic testing Clay Hinton Safety Misc BD Pen or appropriate needles 400units [facility], 05/20/2017 Needle/Mini/Ultraf for lantus/Novolog Clay Hinton ine/31G X 3/16" pen. use up to 6/day, as directed, for 31G X 5 mm Misc insulin administration Gabapentin 1 by three times a 90caps [facility], 300mg day. Clay Hinton Capsules History Medications Neomycin/Polymyxin/Dexamethasone 1 drop 4 5ml [facility], 10/20/2019 - 3.5-82225-0.1 times a day Clay Hinton 10/20/2019 Suspension left eye for 5 days Tobradex 0.3-0.1% 1 left eye 5ml H10. [place], 2018 - Suspension three times a 89 Jamaal, D.O. 10/25/2019 day for 5 days or 1 day after symptoms resolve. Novolog Mix 70/30 Prefilled Flexpen 30u in in the 45ml E11. [place], 09/08 - (70-30)100Unit/ML morning 69 Jamaal, D.O. 11/12/2019 Supn Immunizations CPT Code Status Date Vaccine Lot # [id number] Given 07/19/2019 Influenza Virus Vaccine, Quadrivalent, Split, [id number] Preservative Free [id number] Given 09/01/2018 Influenza Virus Vaccine, Quadrivalent, Split, [id number] Preservative Free 56488 Given 07/08/2017 Influenza Virus Vaccine, Quadrivalent, Split, [id number] Preservative Free 06358 Given 01/18/2017 Adacel or Boostrix, TDaP [id number] Given 11/30/2016 Influenza Virus Vaccine, Quadrivalent, Split, [...] Result H/L Range Note Date Laboratory 12/21/2019 [facility] Surgical SEE RESULT 1 test finding [phone] Pathology BELOW Order Laboratory 12/21/2019 [facility] Troponin-I 0.07 ng/mL Critical < 0.03 2 test finding [phone] (TnI) high CBC Auto Diff 12/21/2019 [facility] White Blood 10.3 Normal 3.5-10.8 [phone] Count 10^3/uL Red Blood Count 4.17 10^6/uL [...] Cells % 0.0 Comp Metabolic Panel 12/21/2019 [facility] Sodium 139 mmol/L Normal 135-145 [phone] Potassium 3.8 mmol/L Normal 3.5-5.0 Chloride 105 [...] 44.0 >60 3 Laboratory test finding 12/21/2019 [facility] Lipase 17 U/L Normal 11.0-82.0 [phone] C Reactive Protein 8.07 mg/L High <8.01 Lactic Acid 1.9 mmol/L Normal 0.5-2.0 4 Troponin-I (TnI) 0.07 ng/mL Critical high <0.03 5 TSH (Thyroid Stim Horm) 0.42 mcIU/mL Normal 0.34-5.60 CBC Auto Diff 12/10/2019 [facility] White Blood 11.7 10^3/uL High 3.5 -10.8 [phone] Count Red Blood Count 4.50 10^6/uL Normal [...] Blood Cells % 0.0 Laboratory test 12/10/2019 [facility] Troponin-I (TnI) 0.01 ng/mL < 0.03 6 finding [phone] Comp Metabolic 12/10/2019 [facility] Sodium 138 mmol/L Normal 135- 145 Panel [phone] Potassium 4.2 mmol/L Normal 3.5-5.0 Chloride 102 [...] Egfr 38.8 >60 7 Laboratory test 12/10/2019 [facility] Magnesium 2.5 mg/dL Normal 1.9- 2.7 finding [phone] Lipase 22 U/L Normal 11.0-82.0 B-Type Natriuretic Peptide BNP 226 pg/mL High <=100 TSH (Thyroid Stim Horm) 1.38 mcIU/mL Normal 0.34-5.60 Laboratory test 12/07/2019 In House Hemoglobin A1c 8.1 finding Laboratory test 11/23/2019 [facility] B-Type Natriuretic 443 pg/mL High <=100 finding [phone] Peptide BNP Magnesium 2.1 mg/dL Normal 1.9-2.7 Comp Metabolic Panel 11/23/2019 [facility] Sodium 140 mmol/L Normal 135-145 [phone] Potassium 4.5 mmol/L Normal 3.5-5.0 Chloride 107 [...] Egfr 61.7 >60 8 Laboratory test 11/23/2019 [facility] Troponin-I (TnI) 0.02 ng/mL < 0.03 9 finding [phone] CBC Auto Diff 11/23/2019 [facility] White Blood 14.7 High 3.5-10.8 [phone] Count 10^3/uL Red Blood Count 3.97 10^6/uL [...] Red Blood Cells % 0.0 Inr/Protime 11/23/2019 [facility] Inr 0.97 Normal 0.82-1.09 10 [phone] Laboratory test 11/23/2019 [facility] Troponin-I 0.02 <0.03 11 finding [phone] (TnI) ng/mL Laboratory test 10/28/2019 [facility] Troponin-I 0.11 Critical <0.03 12 finding [phone] (TnI) ng/mL high Urine Culture 10/27/2019 [facility] Urine SEE 13 And [phone] Culture RESULT Sensitivities BELOW Urinalysis 10/27/2019 [facility] Urine Yellow Profile [phone] Color Urine Appearance Clear Urine Specific [place] 1.013 Normal 1.010-1.030 Urine pH 6.0 Normal [...] Cell Present Abnormal Absent Laboratory test 10/27/2019 [facility] Magnesium 2.2 mg/dL Normal 1.9- 2.7 finding [phone] Lipase 18 U/L Normal 11.0-82.0 Troponin-I (TnI) 0.04 ng/mL Critical high <0.03 14 C Reactive Protein 18.58 mg/L High <8.01 TSH (Thyroid Stim Horm) 0.09 mcIU/mL Low 0.34-5.60 B-Type Natriuretic Peptide BNP 120 pg/mL High <=100 T3 Free 4.50 pg/mL High 2.5-3.9 Free T4 (Free Thyroxine) 1.41 ng/dL High 0.61-1.12 Comp Metabolic Panel 10/27/2019 [facility] Sodium 133 mmol/L Low 135- 145 [phone] Potassium 3.9 mmol/L Normal 3.5-5.0 Chloride 98 [...] 40.2 >60 15 CBC Auto Diff 10/27/2019 [facility] White Blood 10.2 10^3/uL Normal 3.5-10.8 [phone] Count Red Blood Count 4.56 10^6/uL Normal [...] Blood Cells % 0.1 Laboratory test 09/15/2019 [facility] Lactic Acid 1.5 mmol/L Normal 0.5-2.0 16 finding [phone] Comp Metabolic 09/15/2019 [facility] Sodium 135 mmol/L Normal 135- 145 Panel [phone] Potassium 4.2 mmol/L Normal 3.5-5.0 Chloride 102 [...] 51.5 >60 17 Laboratory test finding 09/15/2019 [facility] Lipase 12 U/L Normal 11.0-82.0 [phone] C Reactive Protein 22.47 mg/L High <8.01 CBC Auto Diff 09/15/2019 [facility] White Blood 11.5 10^3/uL High 3.5 -10.8 [phone] Count Red Blood Count 4.67 10^6/uL Normal [...] Hemoglobin A1c 11.8 finding Urine Microalbumin 09/08/2019 [facility] Ur Microalbumin 26.1 mg/L Random [phone] (mg/L) Urine Creatinine 26.09 mg/dL Urine Microalbumin/Creatinine 100.0 High <31 Laboratory 08/20/2019 [facility] Point of Care 432 Critical 70-100 18 test finding [phone] Glucose mg/dL high Laboratory 08/20/2019 [facility] Glucose 495 High 70-100 test finding [phone] Confirmatory mg/dL Laboratory 08/20/2019 [facility] Point of Care > 444 Critical 70-100 19 test finding [phone] Glucose mg/dL high Laboratory 08/20/2019 [facility] Troponin-I 0.02 <0.04 20 test finding [phone] (TnI) ng/mL CBC Auto Diff 08/20/2019 [facility] White Blood 7.4 Normal 3.5-10.8 [phone] Count 10^3/uL Red Blood Count 4.74 10^6/uL [...] Red Blood Cells % 0.1 Inr/Protime 08/20/2019 [facility] Inr 0.88 Normal 0.82-1.09 21 [phone] Comp Metabolic Panel 08/20/2019 [facility] Sodium 130 mmol/L Low 135- 145 [phone] Potassium 4.8 mmol/L Normal 3.5-5.0 Chloride 96 [...] Critical high 70-100 23 Laboratory test 08/20/2019 [facility] Troponin-I (TnI) 0.03 ng/mL < 0.04 24 finding [phone] Laboratory test 08/20/2019 [facility] Point of Care 351 mg/dL High 70 -100 25 finding [phone] Glucose 1 SEE RESULT BELOW Name: GABRIEL CHAVEZ : [address]: Trinity Puentes MD Acct: [id number] Unit: [id number] AGE: 54 Location: [place] [address] Re12/21/19 Dis: 12/22/19 SEX: F Status: DIS Ld SPEC: [id number] KYRA: 12/21/19- SUBM DR: Vick Thompson MD REQ: [id number] RECD: 12/22/19-7687 STATUS: MOIZ GRIJALVA DR: Sinai Garcia DO [...] 1239 END OF REPORT DEPARTMENT OF PATHOLOGY, [address] [place] [address] Mg Ruff M.D. Director [facility] # [id number] 2 Result TnIDx:0.07 Called to [id number] at: 04:12 by:[id number] Read back by: [id number] Troponin-I testing on Plasma Separator Tubes (PST) has a known false positive rate of 0.20-0.40%. All positive troponins reflex immediately to secondary confirmatory testing. Using the [employer] DxI 800 Access Immunoassay systems, the 99th [...] 5 Kidney failure <15 (or dialysis) 4 [facility] Severe Sepsis and Septic Shock Management Bundle Measure requires all lactic acids initially measuring >2.0 mmol/L be repeated. 5 Result TnIDx:0.07 Called to [id number] at: 01:38:13 by:[id number] Read back by: [id number] Troponin-I testing on Plasma Separator Tubes (PST) has a known false positive rate of 0.20-0.40%. All positive troponins reflex immediately to secondary confirmatory testing. Using the [employer] DxI 800 Access Immunoassay systems, the 99th percentile upper reference limit was demonstrated to be < 0.03 ng/mL. 6 Troponin-I testing on Plasma Separator Tubes (PST) has a known false positive rate of 0.20-0.40%. All positive troponins reflex immediately to secondary confirmatory testing. Using the [employer] DxI 800 Access Immunoassay systems, the 99th [...] immediately to secondary confirmatory testing. Using the [employer] DxI 800 Access Immunoassay systems, the 99th percentile upper reference limit was demonstrated to be < 0.03 ng/mL. 10 Standard intensity warfarin therapeutic range: 2.0-3.0 High intensity warfarin therapeutic range: 2.5-3.5 11 Troponin-I testing on Plasma Separator Tubes (PST) has a known false positive rate of 0.20-0.40%. All positive troponins reflex immediately to secondary confirmatory testing. Using the [employer] DxI 800 Access Immunoassay systems, the 99th percentile upper reference limit was demonstrated to be < 0.03 ng/mL. 12 Result TnIDx:0.11 Called to [id number] at: 02:17:43 by:[id number] Read back by: [id number] Troponin-I testing on Plasma Separator Tubes (PST) has a known false positive rate of 0.20-0.40%. All positive troponins reflex immediately to secondary confirmatory testing. Using the [employer] DxI 800 Access Immunoassay systems, the 99th percentile upper reference limit was demonstrated to be < 0.03 ng/mL. 13 SEE RESULT BELOW Name: GABRIEL CHAVEZ : [address]: Dianna Calvillo MD Acct: [id number] Unit: [id number] AGE: 54 Location: [place] [address] Re10/28/19 SEX: F Status: ADM IN SPEC: [id number] KYRA: 10/28/[address] [facility] [address]: Jesse PERKINS REQ: [id number] RECD: 10/28/19 STATUS: MJ GRIJALVA DR: [facility] Jamaal Garcia DO _ SOURCE: URINE SPDESC: ORDERED: Urine Culture Procedure Result Reported Site Urine Culture Final 10/29/19- 1154 ML Organism 1 AEROCOCCUS URINAE [place] Count >100,000 (Many) CFU/ML Organism 2 NORMAL DICKSON [place] Count 1-10,000 (Few) CFU/ML Aerococcus isolates are too fastidious for routine susceptibility studies. Aerococcus are usually susceptible to penicillin, amoxicillin, piperacillin, cefipime, rifampin and vancomycin. Moderate to good activity occurs with the quinolones, tetracyclines and erythromycin. ([employer] [place] and Textbook of Diagnostic Microbiology 6th Ed. 2006, p. 705-6.) * ML - Main Lab . END OF REPORT DEPARTMENT OF PATHOLOGY, [address] [place] [address] Mg Ruff M.D. Director [facility] # [id number] 14 Result TnIDx:0.04 Called to [id number] at: 23:33:09 by:[id number] Read back by: [id number] Troponin-I testing on Plasma Separator Tubes (PST) has a known false positive rate of 0.20-0.40%. All positive troponins reflex immediately to secondary confirmatory testing. Using the [employer] DxI 800 Access Immunoassay systems, the 99th [...] 5 Kidney failure <15 (or dialysis) 16 [facility] Severe Sepsis and Septic Shock Management [...] 5 Kidney failure <15 (or dialysis) 18 Group Insurance Specialist: [id number] Group Insurance Specialist: [id number] 20 Troponin-I testing on Plasma Separator Tubes (PST) has a known false positive rate of 0.20-0.40%. All positive troponins reflex immediately to secondary confirmatory testing. Using the [employer] DxI 800 Access Immunoassay systems, the 99th [...] dialysis) 23 Critical Result GLU:617 Called to [id number] at: 17:29:14 by:[id number] Read back by:[email or web address] 24 Troponin-I testing on Plasma Separator Tubes (PST) has a known false positive rate of 0.20-0.40%. All positive troponins reflex immediately to secondary confirmatory testing. Using the [employer] 800 Access Immunoassay systems, the 99th percentile upper reference limit was demonstrated to be < 0.03 ng/mL. 25 Group Insurance Specialist: [id number] Procedures Date Code Description Status 01/10/2020 071374142 Diabetic Foot Exam Completed 10/10/2019 [id number] Diabetic Retinal Eye Exam Completed 10/06/2019 53164 X-Ray Elbow Three Views Completed 02/15/2019 [id number] Mammogram Completed Medical Devices Description No Information Available Encounters Type Date Location Provider Dx Diagnosis Office Visit 01/12/2020 Main Office Jamaal Garcia, Z79.4 residential ( current) 11:00a D.O. 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 N18.3 Chronic kidney disease, stage 3 (moderate) I70.234 [place] art of right leg w ulcer of [...] with hyperglycemia I10 Essential (primary) hypertension Z79.4 residential (current) use of insulin N18.3 Chronic kidney disease, stage 3 (moderate) I70.234 [place] art of right leg w ulcer of heel and midfoot J44.9 Chronic obstructive pulmonary disease, unspecified F17.211 Nicotine dependence, cigarettes, in remission E11.69 Type 2 diabetes mellitus with other specified complication I50.32 Chronic diastolic (congestive) heart failure Assessments Date Code Description Provider 01/18/2020 M54.31 Sciatica, right side Jamaal Garcia D.O. 01/18/2020 M54.5 Low back pain Jamaal Garcia D.O. 01/18/2020 M79.604 Pain in right leg Jamaal Garcia D.O. 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 01/12/2020 Z79.4 residential (current) use of insulin Jamaal Garcia D.O. 01/12/2020 J44.9 Chronic obstructive pulmonary disease, Jamaal Garcia D.O. unspecified 01/12/2020 E11.69 Type 2 diabetes mellitus with other specified Jamaal Garcia D.O. complication 01/12/2020 M79.604 Pain in right leg Jamaal Garcia D.O. 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 without thyrotoxic crisis or storm 01/12/2020 F17.211 Nicotine dependence, cigarettes, in remission Jamaal Garcia D.O. 01/12/2020 K21.9 Gastro-esophageal reflux disease without Jamaal Garcia D.O. esophagitis 01/12/2020 I70.234 Atherosclerosis of [place] arteries of right Jamaal Garcia D.O. leg with ulceration of heel and midfoot 01/12/2020 I10 Essential (primary) hypertension Jamaal Garcia, D.O. 12/07/2019 I50.33 Acute on chronic diastolic (congestive) heart Jamaal Garcia D.O. failure 12/07/2019 E11.69 Type 2 diabetes mellitus with other specified [place], D.O. 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 without thyrotoxic crisis or storm 12/07/2019 E11.69 Type 2 diabetes mellitus with other specified [place] Jamaal, D.O. complication 12/07/2019 J44.9 Chronic obstructive pulmonary disease, Winston Garciaon, D.O. 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 12/07/2019 F17.211 Nicotine dependence, cigarettes, in remission Jamaal Garcia, D.O. 12/07/2019 N18.3 Chronic kidney disease, stage 3 (moderate) [place], D.O. 12/07/2019 K21.9 Gastro-esophageal reflux disease without Winston Garciaon, D.O. esophagitis 12/07/2019 I70.234 Atherosclerosis of [place] arteries of right Jamaal Garcia D.O. leg with ulcerat 12/07/2019 I10 Essential (primary) hypertension Jamaal Garcia, D.O. 12/07/2019 J44.9 Chronic obstructive pulmonary disease, SopWinston singhon, D.O. unspecified 12/07/2019 F17.211 Nicotine dependence, cigarettes, in remission SopWinston singhon, D.O. 11/13/2019 E11.69 Type 2 diabetes mellitus with other specified [place], D.O. complication 11/13/2019 E11.65 Type 2 diabetes mellitus with hyperglycemia Jamaal Garcia , D.O. 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 11/13/2019 N18.3 Chronic kidney disease, stage 3 (moderate) [place], D.O. 11/13/2019 I70.234 Atherosclerosis of [place] arteries of right RadhaJamaal D.O. leg with ulcerat 11/13/2019 J44.9 Chronic [...] (primary) hypertension Jamaal Garcia D.O. 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 10/20/2019 N18.3 Chronic kidney disease, stage 3 (moderate) Jamaal Garcia D.O. 10/20/2019 I70.234 Atherosclerosis of [place] arteries of right RdahaJamaal D.O. leg with ulcerat 10/20/2019 H10.89 Other conjunctivitis Jamaal Garcia D.O. 10/12/2019 E11.69 Type 2 diabetes mellitus with other specified Jamaal Garcia, D.O. complication 10/12/2019 M77.11 Lateral epicondylitis, right elbow Jamaal Garcia D.O. 10/12/2019 M25.521 Pain in right elbow Jamaal Garcia D.O. 10/12/2019 E11.65 Type 2 diabetes mellitus with hyperglycemia Jamaal Garcia D.O. 10/12/2019 I10 Essential (primary) hypertension Jamaal Garcia D.O. 10/12/2019 Z79.4 residential (current) use of insulin Jamaal Garcia D.O. 10/12/2019 N18.3 Chronic kidney disease, stage 3 (moderate) Jamaal Garcia D.O. 10/12/2019 I70.234 Atherosclerosis of [place] arteries of right Jamaal Garcia D.O. leg [...] (primary) hypertension Jamaal Garcia D.O. 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 09/08/2019 N18.3 Chronic kidney disease, stage 3 (moderate) Jamaal Garcia D.O. 09/08/2019 I70.234 Atherosclerosis of [place] arteries of right Jamaal Garcia D.O. leg [...] pm - Jamaal Garcia D.O. at Main Eaozfn3703/15/2020 11:00 am - Jamaal Garcia D.O. 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 Sent Recent hospitalization with CTA with hilar lymphadenopathy. Consider follow up options. Consult and Treat [facility] [address], [address] [place] [address] [phone] [facility] consider alternative options for colon cancer Sent 11/14/2019 screening without sedation. + fit test. Consult and Treat [address] [place] [address] [phone]
--- OUTSIDE RECORDS SUMMARY | 2020-01-23 03:37 | XMS REPORT | Continuity of Care Document ---
:1965 External Reference #:[id number] Author Name Jamaal Garcia D.O. (transmitted by agent of provider Kenyatta Brown) Address [address] [place] [address] Care Team Providers Name Role Phone HCP/LW on file Care Team Information Research Program Intern Unavailable [facility] - Spec/Tech, Care Team Information Research Program Intern Cardiovascular Winifred Ahumada MD - Pulmonary Care Team Information Research Program Intern [phone] Disease Femi Degroot MD - Vascular & Care Team Information Research Program Intern Interventional Radiology [facility] - Wound Care Care Team Information Research Program Intern Problems Active Problems Provider Date Type II [...] Famotidine take 1 tablet by mouth 60tabs [facility], 12/18/2019 40mg 2 times per day for Joan Hinton.OWilfredo Tablets gastroesophageal reflux disease Furosemide 2 (80 [...] Flexpen 20 units before dinner 45ml E11.69 [facility], 10/12/2019 Jamaal D.O. 100Unit/ML Solution Pen-Inject Albuterol Sulfate 1-2 puffs inhaled Unknown 05/14/2019 HFA every 6 hours as 108(90Base) needed for shortness mcg/Act Aerosol of breath Incruse Ellipta Inhale One puff By 30units J44.9 [facility], 05/14/2019 Mouth Every Day Joan Hinton.O. 62.5mcg/Inh Aerosol Mineral Oil place 4-drops in ears 30units L20.9 [facility], 04/13/2019 Oil every week for Joan Hinton.Natalie. excessive cerumen and dry ear canals as needed Onetouch Delica use with diabetic 100units [facility], 01/30/2019 Lancets Fine 30G supplies five times a Joan Hinton.O. day as directed 30G [facility] Onetouch Verio test 1-4 daily as 200units E11.65 [facility], 01/27/2019 directed Clay Hinton Strips Onetouch Verio use 1-4 times daily as 1units [facility], 01/27/2019 directed Clay Hinton w/Device Kit BD Uf Mini Pen Use Up To 6 Times 400units [facility], 01/27/2019 Needle [id number] Daily as Directed For Clay Hinton Insulin Administration Aspirin Children's 1 by mouth daily Unknown 11/23/2018 81mg Pantoprazole Take One Tablet By 60tabs [facility], 05/26/2018 Sodium Mouth Twice A Day Clay Hinton 40mg Tablets DR Tylenol give 2 tablets by Unknown 05/26/2018 325mg mouth [id number] as Tablets needed for pain / otc Atorvastatin 1 by mouth every Unknown 08/20/2017 Calcium evening 80mg Tablets Docusate Sodium 1 cap by mouth twice a Unknown 08/20/2017 day as needed for 100mg Capsules constipation Lancets use as directed for 200units E11.65 [facility], 05/20/2017 [place] diabetic testing Clay Hinton Safety Misc BD Pen or appropriate needles 400units [facility], 05/20/2017 Needle/Mini/Ultraf for lantus/Novolog Clay Hinton ine/31G X 3/16" pen. use up to 6/day, as directed, for 31G X 5 mm Misc insulin administration Gabapentin 1 by mouth daily 90caps [facility], 300mg Clay Hinton Capsules History Medications Neomycin/Polymyxin/Dexamethasone 1 drop 4 times a 5ml [facility], 2018 - 3.5-26850-5.1 day left eye for Clay Hinton 10/20/2019 Suspension 5 days Tobradex 1 left eye three 5ml H10 [facility], 10/20/2019 - 0.3-0.1% Suspension times a day for .89 Clay Hinton 10/25/2019 5 days or 1 day after symptoms resolve. Novolog Mix 70/30 Prefilled Flexpen 30u in in the 45ml E[facility], 2018 - (70-30)100Unit/ML morning .69 Clay Hinton 11/12/2019 Supn Fluconazole 2 tabs on day 1 15tabs [place], 07/21/2019 - 200mg Tablets the 1 tab daily Karolyn HintonOWilfredo 08/04/2019 for 2 weeks. Stop atorvastatin while taking this medication. Immunizations CPT Code Status Date Vaccine Lot # [id number] Given 07/19/2019 Influenza Virus Vaccine, Quadrivalent, Split, [id number] Preservative Free [id number] Given 09/01/2018 Influenza Virus Vaccine, Quadrivalent, Split, [id number] Preservative Free 39215 Given 07/08/2017 Influenza Virus Vaccine, Quadrivalent, Split, [id number] Preservative Free 30838 Given 01/18/2017 Adacel or Boostrix, TDaP [id number] Given 11/30/2016 Influenza Virus Vaccine, Quadrivalent, Split, [...] Result H/L Range Note Date Laboratory 12/21/[address] [facility] Surgical SEE RESULT 1 test finding [phone] Pathology BELOW Order Laboratory 12/21/[address] [facility] Troponin-I 0.07 ng/mL Critical < 0.03 2 test finding [phone] (TnI) high CBC Auto Diff 12/21/[address] [facility] White Blood 10.3 Normal 3.5-10.8 [phone] Count 10^3/uL Red Blood Count 4.17 10^6/uL [...] Cells % 0.0 Comp Metabolic Panel 12/21/[address] [facility] Sodium 139 mmol/L Normal 135-145 [phone] Potassium 3.8 mmol/L Normal 3.5-5.0 Chloride 105 [...] 44.0 >60 3 Laboratory test finding 12/21/[address] [facility] Lipase 17 U/L Normal 11.0-82.0 [phone] C Reactive Protein 8.07 mg/L High <8.01 Lactic Acid 1.9 mmol/L Normal 0.5-2.0 4 Troponin-I (TnI) 0.07 ng/mL Critical high <0.03 5 TSH (Thyroid Stim Horm) 0.42 mcIU/mL Normal 0.34-5.60 CBC Auto Diff 12/10/[address] [facility] White Blood 11.7 10^3/uL High 3.5 -10.8 [phone] Count Red Blood Count 4.50 10^6/uL Normal [...] Blood Cells % 0.0 Laboratory test 12/10/[address] [facility] Troponin-I (TnI) 0.01 ng/mL < 0.03 6 finding [phone] Comp Metabolic 12/10/[address] [facility] Sodium 138 mmol/L Normal 135- 145 Panel [phone] Potassium 4.2 mmol/L Normal 3.5-5.0 Chloride 102 [...] Egfr 38.8 >60 7 Laboratory test 12/10/[address] [facility] Magnesium 2.5 mg/dL Normal 1.9- 2.7 finding [phone] Lipase 22 U/L Normal 11.0-82.0 B-Type Natriuretic Peptide BNP 226 pg/mL High <=100 TSH (Thyroid Stim Horm) 1.38 mcIU/mL Normal 0.34-5.60 Laboratory test 12/07/2019 In House Hemoglobin A1c 8.1 finding Laboratory test 11/23/[address] [facility] B-Type Natriuretic 443 pg/mL High <=100 finding [phone] Peptide BNP Magnesium 2.1 mg/dL Normal 1.9-2.7 Comp Metabolic Panel 11/23/[address] [facility] Sodium 140 mmol/L Normal 135-145 [phone] Potassium 4.5 mmol/L Normal 3.5-5.0 Chloride 107 [...] Egfr 61.7 >60 8 Laboratory test 11/23/[address] [facility] Troponin-I (TnI) 0.02 ng/mL < 0.03 9 finding [phone] CBC Auto Diff 11/23/[address] [facility] White Blood 14.7 High 3.5-10.8 [phone] Count 10^3/uL Red Blood Count 3.97 10^6/uL [...] Red Blood Cells % 0.0 Inr/Protime 11/23/[address] [facility] Inr 0.97 Normal 0.82-1.09 10 [phone] Laboratory test 11/23/[address] [facility] Troponin-I 0.02 <0.03 11 finding [phone] (TnI) ng/mL Laboratory test 10/28/[address] [facility] Troponin-I 0.11 Critical <0.03 12 finding [phone] (TnI) ng/mL high CBC Auto Diff 10/27/[address] [facility] White 10.2 Normal 3.5-10.8 [phone] Blood 10^3/uL Count Red Blood Count 4.56 [...] Cells % 0.1 Comp Metabolic Panel 10/27/[address] [facility] Sodium 133 mmol/L Low 135- 145 [phone] Potassium 3.9 mmol/L Normal 3.5-5.0 Chloride 98 [...] Egfr 40.2 >60 13 Laboratory test 10/27/[address] [facility] Magnesium 2.2 mg/dL Normal 1.9- 2.7 finding [phone] Lipase 18 U/L Normal 11.0-82.0 Troponin-I (TnI) 0.04 ng/mL Critical high <0.03 14 C Reactive Protein 18.58 mg/L High <8.01 TSH (Thyroid Stim Horm) 0.09 mcIU/mL Low 0.34-5.60 B-Type Natriuretic Peptide BNP 120 pg/mL High <=100 T3 Free 4.50 pg/mL High 2.5-3.9 Free T4 (Free Thyroxine) 1.41 ng/dL High 0.61-1.12 Urinalysis Profile 10/27/[address] [facility] Urine Color Yellow [phone] Urine Appearance Clear Urine Specific [place] 1.013 Normal 1.010-1.030 Urine pH 6.0 Normal [...] Present Abnormal Absent Urine Culture And 10/27/[address] [facility] Urine Culture SEE RESULT 15 Sensitivities [phone] BELOW CBC Auto Diff 09/15/[address] [facility] White Blood 11.5 10^3/uL High 3.5 -10 [phone] Count .8 Red Blood Count 4.67 10^6/uL [...] Cells % 0.0 Laboratory test finding 09/15/[address] [facility] Lipase 12 U/L Normal 11.0-82.0 [phone] C Reactive Protein 22.47 mg/L High <8.01 Laboratory test 09/15/[address] [facility] Lactic Acid 1.5 mmol/L Normal 0.5-2.0 16 finding [phone] Comp Metabolic 09/15/[address] [facility] Sodium 135 mmol/L Normal 135- 145 Panel [phone] Potassium 4.2 mmol/L Normal 3.5-5.0 Chloride 102 [...] Egfr 51.5 >60 17 Urine Microalbumin 09/08/[address] [facility] Ur Microalbumin 26.1 mg/L Random [phone] (mg/L) Urine Creatinine 26.09 mg/dL Urine Microalbumin/Creatinine 100.0 High <31 Laboratory test 09/08/2019 In House Hemoglobin A1c 11.8 finding Laboratory test 08/20/[address] [facility] Troponin-I (TnI) 0.03 ng/mL < 0.04 18 finding [phone] Comp Metabolic 08/20/[address] [facility] Sodium 130 mmol/L Low 135-145 Panel [phone] Potassium 4.8 mmol/L Normal 3.5-5.0 Chloride 96 [...] mg/dL Critical high 70-100 20 Inr/Protime 08/20/[address] [facility] Inr 0.88 Normal 0.82-1.09 21 [phone] CBC Auto Diff 08/20/[address] [facility] White Blood 7.4 10^3/uL Normal 3.5-10.8 [phone] Count Red Blood Count 4.74 10^6/uL Normal [...] Red Blood Cells % 0.1 Laboratory 08/20/[address] [facility] Troponin-I 0.02 <0.04 22 test finding [phone] (TnI) ng/mL Laboratory 08/20/[address] [facility] Point of [facility] > 444 Critical 70-100 23 test finding [phone] Glucose mg/dL high Laboratory 08/20/[address] [facility] Glucose 495 High 70-100 test finding [phone] Confirmatory mg/dL Laboratory 08/20/[address] [facility] Point of [facility] 432 Critical 70-100 24 test finding [phone] Glucose mg/dL high Laboratory 08/20/[address] [facility] Point of Care 351 High 70-100 25 test finding [phone] Glucose mg/dL CBC Auto Diff 07/19/[address] [facility] White Blood 9.8 Normal 3.5-10.8 [phone] Count 10^3/uL Red Blood Count 4.44 10^6/uL [...] Cells % 0.2 Comp Metabolic Panel 07/19/[address] [facility] Sodium 136 mmol/L Normal 135-145 [phone] Potassium 5.0 mmol/L Normal 3.5-5.0 Chloride 96 [...] Egfr 33.2 >60 26 Urinalysis Profile 07/19/[address] [facility] Urine Color Yellow [phone] Urine Appearance Cloudy Urine Specific [place] 1.014 Normal 1.010-1.030 Urine pH 5.0 Normal [...] Present Abnormal Absent Urine Culture And 07/19/[address] [facility] Urine Culture SEE RESULT 27 Sensitivities [phone] BELOW Laboratory test 07/19/[address] [facility] Erythrocyte Sed 61 mm/Hr High 0 -29 finding [phone] Rate C Reactive Protein 18.39 mg/L High <8.01 1 SEE RESULT BELOW Name: GABRIEL CHAVEZ : [address]: Trinity Puentse MD Acct: [id number] Unit: [id number] AGE: 54 Location: [place] [address] Re12/21/19 Dis: 12/22/19 SEX: F Status: DIS Ld SPEC: [id number] KYRA: 12/21/19- [facility] DR: Vick Thompson MD REQ: [id number] RECD: 12/22/19 STATUS: MOIZ GRIJALVA DR: Sinai [...] 1239 END OF REPORT DEPARTMENT OF PATHOLOGY, [address] [place] [address] Mg Ruff M.D. Director [facility] # [id number] 2 Result TnIDx:0.07 Called to bead Button at: 04:12 by:[id number] Read back by: [id number] Troponin-I testing on Plasma Separator Tubes (PST) has a known false positive rate of 0.20-0.40%. All positive troponins reflex immediately to secondary confirmatory testing. Using the Pet[employer] DxI 800 Access Immunoassay systems, the 99th [...] 5 Kidney failure <15 (or dialysis) 4 [facility] Severe Sepsis and Septic Shock Management Bundle Measure requires all lactic acids initially measuring >2.0 mmol/L be repeated. 5 Result TnIDx:0.07 Called to bead Button at: 01:38:13 by:[id number] Read back by: [id number] Troponin-I testing on Plasma Separator Tubes (PST) [...] 0.03 ng/mL. 12 Result TnIDx:0.11 Called to [id number] at: 02:17:43 by:[id number] Read back by: [id number] Troponin-I testing on Plasma Separator Tubes (PST) [...] (or dialysis) 14 Result TnIDx:0.04 Called to [id number] at: 23:33:09 by:[id number] Read back by: [id number] Troponin-I testing on Plasma Separator Tubes (PST) has a known false positive rate of 0.20-0.40%. All positive troponins reflex immediately to secondary confirmatory testing. Using the PetroDE DxI 800 Access Immunoassay systems, the 99th percentile upper reference limit was demonstrated to be < 0.03 ng/mL. 15 SEE RESULT BELOW Name: GABRIEL CHAVEZ : [address]: Dianna Calvillo MD Acct: [id number] Unit: [id number] AGE: 54 Location: [place] [address] Re10/28/19 SEX: F Status: ADM IN SPEC: [id number] KYRA: 10/28/19-[address] [facility] [address]: Jesse PERKINS REQ: [id number] RECD: 10/28/19 STATUS: MJ GRIJALVA DR: [facility] Jamaal Garcia DO _ SOURCE: URINE SPDESC: ORDERED: Urine Culture Procedure Result Reported Site Urine Culture Final 10/29/19- 1154 ML Organism 1 AEROCOCCUS URINAE [place] Count >100,000 (Many) CFU/ML Organism 2 NORMAL DICKSON [place] Count 1-10,000 (Few) CFU/ML Aerococcus isolates are too fastidious for routine susceptibility studies. Aerococcus are usually susceptible to penicillin, amoxicillin, piperacillin, cefipime, rifampin and vancomycin. Moderate to good activity occurs with the quinolones, tetracyclines and erythromycin. ([employer]'s Color [place] and Textbook of Diagnostic Microbiology 6th Ed. 2006, p. 705-6.) * ML - Main Lab . END OF REPORT DEPARTMENT OF PATHOLOGY, [address] [place] [address] Mg Ruff M.D. Director [facility] # [id number] 16 [facility] Severe Sepsis and Septic Shock Management [...] immediately to secondary confirmatory testing. Using the [employer] DxI 800 Access Immunoassay systems, the 99th [...] dialysis) 20 Critical Result [id number] Called to [id number] at: 17:29:14 by:[id number] Read back by:[id number] 21 Standard intensity warfarin therapeutic range: 2.0-3.0 High intensity warfarin therapeutic range: 2.5-3.5 22 Troponin-I testing on Plasma Separator Tubes (PST) has a known false positive rate of 0.20-0.40%. All positive troponins reflex immediately to secondary confirmatory testing. Using the PetroDE DxI 800 Access Immunoassay systems, the 99th percentile upper reference limit was demonstrated to be < 0.03 ng/mL. 23 Technology Recruiter: [id number] 24 Technology Recruiter: [id number] 25 Technology Recruiter: [id number] 26 Because ethnic data is not always [...] (or dialysis) 27 SEE RESULT BELOW Name: ANNYJOANIEGRETTA KUNZAWILDA Irizarry : [address]: Jamaal Garcia DO Acct: [id number] Unit: [id number] AGE: 54 Location: [facility] Re07/19/19 SEX: F Status: REG REF SPEC: [id number] KYRA: 07/19/19-160 [facility] [address]: Jamaal Garcia DO REQ: [id number] RECD: 07/19/19-1610 STATUS: COMP _ SOURCE: URINE SPDESC: ORDERED: Urine Culture Procedure Result Reported Site Urine Culture Final 07/20/19- 1608 ML No growth of clinically significant organisms * ML - Main Lab . END OF REPORT DEPARTMENT OF PATHOLOGY, [address] [place] [address] Mg Ruff M.D. Director [facility] # [id number] Procedures Date Code Description Status 01/10/2020 337206470 Diabetic Foot Exam Completed 10/10/2019 [id number] Diabetic Retinal Eye Exam Completed 10/06/2019 61337 X-Ray Elbow Three Views Completed 07/19/2019 55546 Electrocardiogram Complete Completed 02/15/2019 [id number] Mammogram Completed Medical Devices Description No Information Available Encounters Type Date Location Provider Dx Diagnosis Office Visit 01/12/2020 Main Office Jamaal Garcia, Z79.4 termination clerk ( current) 11:00a D.O. 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 F17.211 Nicotine dependence, cigarettes, in remission K21.9 Gastro-esophageal reflux disease without esophagitis I70.234 [facility] [place] art of right leg w ulcer of [...] J44.9 Chronic obstructive pulmonary disease, unspecified Z79.4 termination clerk (current) use of insulin F17.211 Nicotine dependence, cigarettes, in remission N18.3 Chronic kidney disease, stage 3 (moderate) K21.9 Gastro-esophageal reflux disease without esophagitis I70.234 [place]scl [place] art of right leg w ulcer of heel and midfoot J44.9 Chronic obstructive pulmonary disease, unspecified F17.211 Nicotine dependence, cigarettes, in remission I10 Essential (primary) hypertension Office Visit 11/13/2019 10:00a Main Office Jamaal Garcia, E11.69 Type 2 diabetes D.O. mellitus with other specified complication E11.65 Type 2 diabetes mellitus with hyperglycemia Z79.4 termination clerk (current) use of insulin N18.3 Chronic kidney disease, stage 3 (moderate) I70.234 [place] art of right leg w ulcer of [...] with hyperglycemia I10 Essential (primary) hypertension Z79.4 MCC (current) use of insulin N18.3 Chronic kidney disease, stage 3 (moderate) I70.234 [place]scl [place] art of right leg w ulcer of heel and midfoot H10.89 Other conjunctivitis Office Visit 10/12/2019 11:45a Main Office Jamaal Garcia, E11.69 Type 2 diabetes D.O. mellitus with other specified complication M77.11 Lateral epicondylitis, right elbow M25.521 Pain in right elbow E11.65 Type 2 diabetes mellitus with hyperglycemia I10 Essential (primary) hypertension Z79.4 MCC (current) use of insulin N18.3 Chronic kidney disease, stage 3 (moderate) I70.234 [place]scl [place] art of right leg w ulcer of [...] with hyperglycemia I10 Essential (primary) hypertension Z79.4 termination clerk (current) use of insulin N18.3 Chronic kidney disease, stage 3 (moderate) I70.234 [place]scl [place] art of right leg w ulcer of heel and midfoot J44.9 Chronic obstructive pulmonary disease, unspecified F17.211 Nicotine dependence, cigarettes, in remission E11.69 Type 2 diabetes mellitus with other specified complication I50.32 Chronic diastolic (congestive) heart failure Office Visit 07/19/2019 3:00p Main Office Jamaal Garcia, E11.65 Type 2 diabetes D.O. mellitus with hyperglycemia I10 Essential (primary) hypertension Z79.4 termination clerk (current) use of insulin N18.3 Chronic kidney disease, stage 3 (moderate) I70.234 [place]s[facility] [place] art of right leg w ulcer of heel and midfoot J44.9 Chronic obstructive pulmonary disease, unspecified Z23 Encounter for immunization Assessments Date Code Description Provider 01/12/2020 Z79.4 MCC (current) use of insulin Jamaal Garcia D.O. 01/12/2020 J44.9 Chronic obstructive pulmonary disease, Jamaal Garcia D.O. unspecified 01/12/2020 E11.69 Type 2 diabetes mellitus with other specified Jamaal Garcia D.O. complication 01/12/2020 M79.604 Pain in right leg Jamaal Garcia D.O. 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 without thyrotoxic crisis or storm 01/12/2020 F17.211 Nicotine dependence, cigarettes, in remission SopJamaal singh D.O. 01/12/2020 K21.9 Gastro-esophageal reflux disease without Winston Garciaon, D.O. esophagitis 01/12/2020 I70.234 Atherosclerosis of [place] arteries of right SopJamaal singh, D.O. leg with ulceration of heel and midfoot 01/12/2020 I10 Essential (primary) hypertension Jamaal Garcia D.O. 12/07/2019 I50.33 Acute on chronic diastolic (congestive) heart Jamaal Garcia D.O. failure 12/07/2019 E11.69 Type 2 diabetes mellitus with other specified Winston Garciaon, D.O. complication 12/07/2019 E11.69 Type 2 diabetes mellitus with other specified Miguel AngelkWinstonon, D.O. 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 without thyrotoxic crisis or storm 12/07/2019 J44.9 Chronic obstructive pulmonary disease, Winston Garciaon, D.O. unspecified 12/07/2019 Z79.4 termination clerk (current) use of insulin Jamaal Garcia D.O. 12/07/2019 F17.211 Nicotine dependence, cigarettes, in remission Jamaal Garcia D.O. 12/07/2019 N18.3 Chronic kidney disease, stage 3 (moderate) Jamaal Garcia D.O. 12/07/2019 K21.9 Gastro-esophageal reflux disease without Winston Garciaon, D.O. esophagitis 12/07/2019 I70.234 Atherosclerosis of [place] arteries of right Jamaal Garcia, D.O. leg with ulcerat 12/07/2019 J44.9 Chronic obstructive pulmonary disease, Winston Garciaon, D.O. unspecified 12/07/2019 F17.211 Nicotine dependence, cigarettes, in remission Jamaal Garcia, D.O. 12/07/2019 I10 Essential (primary) hypertension Jamaal Garcia, D.O. 11/13/2019 E11.69 Type 2 diabetes mellitus with other specified Jamaal Garcia D.O. complication 11/13/2019 E11.65 Type 2 diabetes mellitus with hyperglycemia Jamaal Garcia D.O. 11/13/2019 Z79.4 MCC (current) use of insulin Jamaal Garcia D.O. 11/13/2019 N18.3 Chronic kidney disease, stage 3 (moderate) Jamaal Garcia D.O. 11/13/2019 I70.234 Atherosclerosis of [place] arteries of right Jamaal Garcia D.O. leg [...] (primary) hypertension Jamaal Garcia D.O. 10/20/2019 Z79.4 MCC (current) use of insulin Jamaal Garcia D.O. 10/20/2019 N18.3 Chronic kidney disease, stage 3 (moderate) Jamaal Garcia D.O. 10/20/2019 I70.234 Atherosclerosis of [place] arteries of right Jamaal Garcia D.O. leg [...] (primary) hypertension Jamaal Garcia D.O. 10/12/2019 Z79.4 termination clerk (current) use of insulin Jamaal Garcia D.O. 10/12/2019 N18.3 Chronic kidney disease, stage 3 (moderate) Jamaal Garcia D.O. 10/12/2019 I70.234 Atherosclerosis of [place] arteries of right Jamaal Garcia D.O. leg [...] (primary) hypertension Jamaal Garcia D.O. 09/08/2019 Z79.4 termination clerk (current) use of insulin Jamaal Garcia D.O. 09/08/2019 N18.3 Chronic kidney disease, stage 3 (moderate) Jamaal Garcia D.O. 09/08/2019 I70.234 Atherosclerosis of [place] arteries of right Jamaal Garcia D.O. leg [...] (primary) hypertension Jamaal Garcia D.O. 07/19/2019 Z79.4 MCC (current) use of insulin Jamaal Garcia D.O. 07/19/2019 N18.3 Chronic kidney disease, stage 3 (moderate) Jamaal Garcia D.O. 07/19/2019 I70.234 Atherosclerosis of [place] arteries of right Jamaal Garcia D.O. leg with ulcerat 07/19/2019 J44.9 Chronic obstructive pulmonary disease, Jamaal Garcia D.O. unspecified 07/19/2019 Z23 Encounter for immunization Jamaal Garcia D.O. Plan of Treatment Future Appointment(s):03/15/2020 11:00 am - Jamaal Garcia D.O. at Main Rszfml7201/12/2020 - Jamaal Garcia D.O.Z79.4 termination clerk (current) use of wqvqjfjA24.9 Chronic obstructive pulmonary disease, zdbzrmtajajQ18.69 Type 2 diabetes mellitus with other specified complicationFollow up:as ptkopxbewB29.604 Pain in right legE05.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 multinodular goiter without thyrotoxic crisis or mztvzN84.211 Nicotine dependence, cigarettes , in tbfzunqcfO97.9 Gastro-esophageal reflux disease without uskavazsohkP89.234 Atherosclerosis of [place] arteries of right leg with ulceration of heel and jghgpmtB55 Essential (primary) hypertensionFollow up:2 month recheck chronic medical problems Goals 01/12/2020 - Jamaal Garcia D.O.E11.69 Type 2 diabetes mellitus with other specified complicationToday's A1c: 8.1 Hemoglobin A1C (average glucose) < 7.0 - this is checked every 3 months. Avoid/limit carbohydrates: foods like Potatoes, Wheat (bread,pasta,cookies,crackers,pretzels,dough), Rice, [place], and Sugar Limit sweetened beverages. Check eyes yearly with a dialated exam with an fingernail former Check for diabetic kidney disease yearly with [...] and Treat [facility] [address], [address] [place] [address] [phone] [facility] consider alternative options for colon cancer Sent 11/14/2019 screening without sedation. + fit test. Consult and Treat [address] [place] [address] [phone]
== END 2020-01-23 03:02 | disposition home or self-care (01) ==
LOC: ED 00:20
DX: R07.9 Chest pain, unspecified (principal); R06.2 Wheezing; R06.00 Dyspnea, unspecified; Z79.899 Other long term (current) drug therapy; Z79.82 Long term (current) use of aspirin; Z87.891 Personal history of nicotine dependence
CPT/HCPCS: 36415; 71046; 80053; 83605; 83880; 84484; 85025; 93005; 99283; A9270-GY

== ENCOUNTER 2020-02-05 19:57 | Emergency (ER) | payer MEDICARE ==
--- NOTE | 2020-02-05 20:00 | ED ---
HPI Chest Pain - HPI Summary HPI Summary: 54 y/o F with hx COPD, CHF, CABG, valve replacement brought in by EMS c/o chest pain radiating into left neck and left scapula starting 2 hours ago while sitting. Initially rated 7/10. Took 2 nitro at home with minimal relief. Called EMS who gave patient 324 mg aspirin which improved pain to 5/10. She reports worsening shortness of breath. No recent fever, cough, nausea, diaphoresis, worsening swelling of her legs, illnesses. She does not wear O2 at home. She has had similar symptoms in the past periodically. Recent stress test done in the past couple months which was normal per patient. Tested for COVID19 this past Friday 02/02 with results pending. Medications reviewed. Takes aspirin 81 mg. No recent medication changes. Allergies noted. Drinks occasionally. No recreational drug or tobacco use. - History of Current Complaint Hx Obtained From: Patient, EMS Onset/Duration: Started Hours Ago - 2, Still Present Timing: Constant Initial Severity: Moderate - 7/10 Current Severity: Moderate Pain Intensity: 5 Pain Scale Used: 0-10 Numeric Chest Pain Radiates: Yes Chest Pain Radiates To:: Shoulder - L, Neck - L Aggravating Factor(s): Nothing Alleviating Factor(s): NTG 123, EMS Tx - aspirin 324 mg Associated Signs and Symptoms: Positive: Other: - fever, cough, nausea, diaphoresis, worsening swelling of her legs - Additional Pertinent History Primary Care Physician: [id number] - Allergy/Home Medications Allergies/Adverse Reactions: Allergies Allergy/AdvReac Type Severity Reaction Status Date / Time metformin Allergy Severe Diarrhea Verified 01/23/20 00:24 levofloxacin [From Levaquin] Allergy Nausea And Verified 01/23/20 00:24 Vomiting ondansetron Allergy Hives Verified 01/23/20 00:24 [From Zofran (as hydrochloride)] Home Medications: Home Medications Atorvastatin* [Lipitor 80 MG*] 80 mg PO QPM 05/24/17 [History Confirmed 02/05/20 ] Albuterol HFA INHALER* [Ventolin HFA Inhaler*] 1 - 2 puff INH Q6H PRN 09/15/19 [ History Confirmed 02/05/20] Aspirin 81 mg CHEW TAB* 81 mg PO DAILY 09/15/19 [History Confirmed 02/05/20] Insulin Lispro [Humalog Kwikpen 100 units/ml 3 ml x 5 Pens] 10 unit SUBCUT AC # 1 box 10/30/19 [Rx Confirmed 02/05/20] Methimazole TAB* [Tapazole TAB*] 5 mg PO DAILY #30 tab 10/30/19 [Rx Confirmed ] Ticagrelor* [Brilinta 90 MG*] 90 mg PO BID #60 tab 10/30/19 [Rx Confirmed ] Sucralfate TAB* [Carafate*] 1 gm PO ACHS 11/23/19 [History Confirmed 02/05/20] Umeclidinium 62.5 MDI(NF) [Incruse ELLIPTA MDI (NF)] 1 inh INH DAILY 11/23/19 [ History Confirmed 02/05/20] Carvedilol TAB* [Coreg TAB*] 12.5 mg PO BID #120 tab 11/26/19 [Rx Confirmed ] Furosemide TAB* [Lasix TAB*] 80 mg PO DAILY #37 tab 11/26/19 [Rx Confirmed 02/04] Losartan Potassium 25 mg PO DAILY 11/26/19 [History Confirmed 02/05/20] Acetaminophen TAB* [Tylenol TAB*] 650 mg PO Q6H PRN tab 12/11/19 [Rx Confirmed 02/05/20] Insulin Detemir [Levemir Flextouch 100 units/ml 3 ml x 5 Pens] 45 units SUBCUT BID #0 12/11/19 [Rx Confirmed 02/05/20] Loperamide CAP* [Imodium CAP*] 2 mg PO .SEE DIRECTIONS PRN cap 12/11/19 [Rx Confirmed 02/05/20] Nitro Patch/OINT Remove* 1 note PATCH OFF 2100 misc 12/11/19 [Rx Confirmed ] Nitroglycerin 0.2 MG/HR PATCH* [Nitroglycerin 5 MG PATCH*] 1 patch TRANSDERM DAILY@0900 #30 patch 12/11/19 [Rx Confirmed 02/05/20] Nitroglycerin TAB 0.4 MG* 0.4 mg SL Q5M PRN #30 tab 12/11/19 [Rx Confirmed 02/04] Empagliflozin [Jardiance] 10 mg PO DAILY 12/20/19 [History Confirmed 02/05/20] Famotidine 40 mg PO BID 12/20/19 [History Confirmed 02/05/20] Baclofen TAB* [Lioresal TAB*] 5 mg PO TID PRN 01/23/20 [History Confirmed ] Gabapentin CAP(*) [Neurontin 300 CAP(*)] 300 mg PO TID 01/23/20 [History Confirmed 02/05/20] PMH/Surg Hx/FS Hx/Imm Hx Endocrine/Hematology History: Reports: Hx Anticoagulant Therapy, Hx Diabetes, Hx Anemia Cardiovascular History: Reports: Hx Angina, Hx Angioplasty, Hx Congestive Heart Failure, Hx Coronary Artery Disease, Hx Hypercholesterolemia, Hx Hypertension, Hx Myocardial Infarction, Hx Peripheral Vascular Disease, Hx Valvular Heart Disease - mitral valve replacement, Other Cardiovascular Problems/Disorders - cardiomyopathy EF 40%, bipass, PVD Denies: Hx Pacemaker/ICD Respiratory History: Reports: Hx Chronic Obstructive Pulmonary Disease (COPD) Denies: Hx Asthma GI History: Reports: Hx Gastroesophageal Reflux Disease Musculoskeletal History: Reports: Hx Arthritis - general Sensory History: Reports: Hx Cataracts - sx removed, Hx Contacts or Glasses Opthamlomology History: Reports: Hx Cataracts - sx removed, Hx Contacts or Glasses Neurological History: Reports: Hx Transient Ischemic Attacks (TIA) Denies: Hx Headaches, Hx Seizures Psychiatric History: Reports: Hx Anxiety, Hx Depression - Surgical History Surgery Procedure, Year, and Place: Complete Hysterectomy 2004; AN[facility]; HEART CATH- 4 CARDIAC STENTS, CABG, [facility] - Family History Known Family History: Positive: Cardiac Disease, Other - PE, DVT - Social History Alcohol Use: Occasionally Hx Substance Use: No Substance Use Type: Reports: None Hx Tobacco Use: Yes Smoking Status (MU): Former Smoker Type: Cigarettes Length of Time of Smoking/Using Tobacco: since she was 11 until 1 year ago Have You Smoked in the Last Year: No Review of Systems Negative: Fever, Skin Diaphoresis Positive: Chest Pain Positive: Shortness Of Breath. Negative: Cough Negative: Nausea Musculoskeletal: Negative - worsening swelling of her legs All Other Systems Reviewed And Are Negative: Yes Physical Exam - Summary Physical Exam Summary: Constitutional: Well-developed, Well-nourished, Alert. (-) Distressed. She is satting high 90s on room air. She is able to speak in full sentences Skin: Warm, Dry HENT: Normocephalic; Atraumatic Eyes: Conjunctiva normal Neck: Musculoskeletal ROM normal neck. (-) JVD, (-) Stridor, (-) Tracheal deviation Cardio: Rhythm regular, rate normal, Heart sounds normal; Intact distal pulses; Radial pulses are 2+ and symmetric. (-) Murmur Pulmonary/Chest wall: Non-labored breathing, no external muscle use Abd: Soft, (-) tenderness, (-) Distension, (-) Guarding, (-) Rebound Musculoskeletal: No peripheral edema Lymph: (-) Cervical adenopathy Neuro: Alert, Oriented x3 Psych: Mood and affect Normal Triage Information Reviewed: Yes Vital Signs Reviewed: Yes Procedures - Sedation Patient Received Moderate/Deep Sedation with Procedure: No Diagnostics - Laboratory Result Diagrams: 02/05/20 20:20 02/05/20 20:20 Lab Statement: Any lab studies that have been ordered have been reviewed, and results considered in the medical decision making process. - EKG 2036 Cardiac Rate: NL - 83 BPM EKG Rhythm: Sinus Rhythm Summary of EKG Findings: Sinus rhythm 83 BPM. RBBB. Flattening of T wave in 3. Grossly unchanged from prior on 01/23/20. ED physician has reviewed and interpreted this EKG. Re-Evaluation - Re-Evaluation First Eval Re-Evaluation Time: 23:45 Change: Improved - patient reports pain improved. 2nd trop pending Comment: patient reports pain improved. 2nd trop pending Chest Pain Course/Dx - Course Course Of Treatment: Patient is here with nonexertional chest pain that radiates into her scapula and neck. Patient has no ischemic changes on EKG. Patient received nitroglycerin and aspirin prior to arrival without change in her symptoms. Patient had a stress test 2 months ago which showed no abnormalities. Patient had initial labwork performed which was grossly unremarkable. Patient was sent up to Dr. Wagoner pending second troponin and x-ray - Diagnoses Provider Diagnoses: Chest pain, Shortness of breath, CHF (congestive heart failure) Discharge ED - Sign-Out/Discharge Documenting (check all that apply): Sign-Out Patient Signing out patient TO: Norbert Wagoner - Discharge Plan Condition: Stable Disposition: HOME Patient Education Materials: Chest Pain (ED) Referrals: Jamaal Garcia DO [Primary Care Provider] - Additional Instructions: You were seen in the emergency department for chest pain. Your EKG (heart tracing), labs and chest x-ray did not show any cause for pain. Important that you follow up with you primary care doctor in the next 1-2 days to possibly schedule an outpatient stress test. Please return to the emergency department for continued chest pain, trouble breathing, passing out, or if you're concerned. - Billing Disposition and Condition Condition: STABLE Disposition: Home - Attestation Statements Document Initiated by Chelsie: Yes Documenting Scribe: Christina Woo Provider For Whom Chelsie is Documenting (Include Credential): Suresh Sadler MD Scribe Attestation: IChristina, scribed for Suresh Sadler MD on 02/07/20 at 0706. Scribe Documentation Reviewed: Yes Provider Attestation: The documentation as recorded by the Christina izaguirre accurately reflects the service I personally performed and the decisions made by me, Suresh Sadler MD Status of Scribe Document: Viewed
[2020-02-05 20:34] LABS: ABS Basophils 0.1 10^3/ul (0-0.2); ABS Eosinophils 0.2 10^3/ul (0-0.6); ABS Lymphocytes 1.3 10^3/ul (1.0-4.8); ABS Monocytes 0.6 10^3/ul (0-0.8); ABS Neutrophils 8.6 10^3/ul (1.5-7.7); Eosinophil % 2.3 %; Hematocrit 37 % (35-47); Hemoglobin 12.1 g/dL (12.0-16.0); Lymphocyte % 11.6 %; Mean Corpuscular HGB Conc 33 g/dL (31-36); Mean Corpuscular Hemoglobin 28 pg (27-31); Mean Corpuscular Volume 84 fL (80-97); Platelet Count 280 10^3/uL (150-450); Red Blood Count 4.37 10^6 /uL (3.70-4.87); Red Cell Distribution Width 17 % (10-15); White Blood Count 10.8 10^3/uL (3.5-10.8)
[2020-02-05 20:42] LABS: INR 0.92 (0.82-1.09)
--- OUTSIDE RECORDS SUMMARY | 2020-02-05 20:45 | XMS REPORT | Continuity of Care Document ---
:1965 External Reference #:[id number] Author Name Winifred Ahumada MD Address [address], [address] [place] [address] Care Team Providers Name Role Phone Jamaal Garcia DO - Family Care Team Information Smash Hand Medicine Problems Active Problems Provider Date Old myocardial infarction Tomas Grimaldo DO FAC Onset: 02/18/2017 Atherosclerosis of ambler arteries of Kingsley Shaw MD, [facility], Onset: right leg with ulceration of heel and FSCAI midfoot Atherosclerosis of ambler arteries of Kingsley Shaw MD, [facility], Onset: left leg with ulceration of other part FSCAI of foot Chronic obstructive lung disease Winifred Ahumada MD Onset: 05/19/2017 Encounter for screening for malignant Winifred Ahumada MD Onset: 05/19/2017 neoplasm of respiratory organs Nicotine dependence, cigarettes, with Winifred Ahumada MD Onset: 05/19/2017 other nicotine-induced disorders Chronic diastolic heart failure Kingsley Shaw MD, [facility], Onset: 07/01/2017 FSCAI Atherosclerosis of ambler arteries of Kingsley Shaw MD, [facility], Onset: 04/2017 right leg with ulceration of [...] Femi Degroot M.D. Onset: 06/28/2019 atherosclerosis of ambler artery of limb Social History Type Date Description Comments Sex Unknown Tobacco Use Start: Unknown Former Cigarette Smoker quit in Aug 2017 End: Unknown Smoking Status Reviewed: 01/23/20 Former Cigarette Smoker quit in Aug 2017 [...] Medications SIG Qnty Indications Ordering Date Provider Doxycycline Hyclate 1 tab every 12 14tabs J44.1 Winifred Ahumada, 01/23/2020 100mg hours Tablets Prednisone 1 tab for 2 21units J44.1 Winifred Ahumada, 01/23/2020 10mg (48) TBPK weeks, 1/2 tab MD for 1 week Carvedilol 1 by mouth twice 180tabs Tomas [...] Grimaldo, 2016 80mg day DO FACC Tablets Sucralfate Vick Thompson, 1gm Tablets Jamaal Bush 5mg Tablets DO Patrick Isosorbide Mononitrate 1 by mouth every 90tabs [...] Inj, Regadenoson, 0.1 MG Tomas Grimaldo, DO [facility] 08/30/2019 Injection Technetium TC 99M Tomas Grimaldo, DO [facility] 08/30/2019 Tetrofosmin, Per Unit Dose Up To 40 Millicuries Injection Technetium TC 99M Tomas Grimaldo, DO [facility] 08/30/2019 Tetrofosmin, Per Unit Dose Up To 40 Millicuries Injection Inj, Regadenoson, 0.1 MG Tomas Grimaldo, DO [facility] 04/25/2018 Injection Technetium TC 99M Tomas Grimaldo, DO [facility] 04/25/2018 Tetrofosmin, Per Unit Dose Up To 40 Millicuries Injection Inj, Regadenoson, 0.1 MG Tomas Grimaldo, DO [facility] 03/31/2017 Injection Technetium TC 99M Tomas Grimaldo, DO [facility] 03/31/2017 Tetrofosmin, Per Unit Dose Up To 40 Millicuries Injection Immunizations Description No Information Available Vital Signs Date Vital Result Comment 01/23/2020 9:00am Height 63 inches 5'3" Weight 202.00 lb Heart Rate 72 /min BP Systolic 126 mmHg BP Diastolic 78 mmHg Body Temperature 96.4 F O2 % BldC Oximetry 99 % BMI (Body Mass Index) 35.8 kg/m2 12/05/2019 8:01am Height 63 inches 5'3" Weight 203.00 lb with boots Heart Rate 83 /min BP Systolic Sitting 122 mmHg lue reg cuff BP Diastolic Sitting 74 mmHg lue reg cuff BP Systolic Standing 120 mmHg lue reg cuff BP Diastolic Standing 74 mmHg lue reg cuff Respiratory Rate 14 /min BMI (Body Mass Index) 36.0 kg/m2 Ejection Fraction 40-45% Results Test Acquired Date Facility Test Result H/L Range Note Laboratory test 12/07/2019 [facility] Free T4 1.06 ng/dL Normal 0.61-1.[address] ([place] [address] Thyroxine [phone] ) TSH (Thyroid Stim Horm) 0.69 mcIU/mL Normal 0.34-5.60 T3 Total 137 ng/dL Normal 87-178 Comp Metabolic 12/07/2019 [facility] Sodium 139 mmol/L Normal 135-145 [address] [place] [address] [phone] Potassium 4.5 mmol/L Normal 3.5-5.0 Chloride 103 [...] Egfr 43.6 >60 1 CBC Auto 12/07/2019 [facility] White Blood 11.1 10^3/uL High 3.5-10.[address] [place] [address] [phone] Red Blood Count 4.01 10^6/uL Normal 3.70-4.87 [...] dialysis) Procedures Date Code Description Status 12/29/2019 88281 Myocardial Perfusion Imaging Tomographic (Spect) Completed Multiple Studies 12/11/2019 90709 EKG, Interpretation Only Completed 12/11/2019 65464 Treadmill Interp/Report Only Completed 12/11/2019 99772 Stress Test Supervsn W/Out I/R Completed 12/05/2019 89920 EKG Tracing & Interpretation Completed 11/25/2019 86491 EKG, Interpretation Only Completed 11/24/2019 07961 EKG, Interpretation Only Completed 11/23/2019 57508 EKG, Interpretation Only Completed 11/21/2019 88592 EKG Tracing & Interpretation Completed 10/29/2019 35411 ECHO Transthorasic Realtime 2D W Doppler & Color Flow Completed Hosp 10/28/2019 95770 EKG, Interpretation Only Completed 08/30/2019 80735 Stress Test Completed 08/30/2019 32419 Myocardial Perfusion Imaging Tomographic (Spect) Completed Multiple Studies 08/29/2019 90923 ECHO Transthoracic, Real-Time 2D With Doppler And Color Completed Flow 08/29/2019 43187 ECHO Transthoracic, Real-Time 2D With Doppler And Color Completed Flow 10/13/2013 [id number] Mammogram Completed Medical Devices Description No Information Available Encounters Type Date Location Provider Dx Diagnosis Office Visit 01/23/2020 Pulmonology And Winifred Zita, R06.02 Shortness of 9:15a [facility] rachell Casillas J44.1 Chronic obstructive pulmonary disease w (acute) exacerbation J01.90 Acute sinusitis, unspecified R59.0 Localized enlarged lymph nodes Office Visit 12/22/2019 [facility] Trinity Puentes, R07.9 Chest pain, 10:36a Asstania hi M.D. unspecified Hospitalists E11.40 Type 2 diabetes mellitus with diabetic neuropathy, unsp M54.9 Dorsalgia, unspecified I10 Essential (primary) hypertension Office Visit 12/21/2019 10:36a [facility] Sinai R07.9 Chest pain, Assoctania M.D. unspecified Hospitalists E11.9 Type 2 diabetes mellitus without complications I11.0 Hypertensive heart disease with heart failure I50.20 Unspecified systolic (congestive) heart failure Office Visit 12/11/2019 10:19a [facility] Jeison R07.9 Chest pain, Assoc,pc MADDIE Fuentes unspecified Hospitalists I11.0 Hypertensive heart disease with heart failure I50.20 Unspecified systolic (congestive) heart failure E11.40 Type 2 diabetes mellitus with diabetic neuropathy, unsp Z79.4 residential (current) use of insulin Office Visit 12/10/2019 10:18a [facility] Jeison R07.9 Chest pain, Assoc,pc Alfredo, MADDIE unspecified Hospitalists E11.40 Type 2 diabetes mellitus with diabetic neuropathy, unsp I11.0 Hypertensive heart disease with heart failure I50.20 Unspecified systolic (congestive) heart failure J44.9 Chronic obstructive pulmonary disease, unspecified Z79.4 residential (current) use of insulin Office Visit 12/05/2019 8:00a [facility] Tomas Navarrete I50.9 Heart failure, Of [facility] Grimaldo, DO unspecified FACC I25.119 Athscl heart disease of ambler cor art w unsp ang pctrs E11.65 [...] I25.5 Ischemic cardiomyopathy Office Visit 11/26/2019 11:54a [facility] Tomas SWilfredo I50.9 Heart failure, Of [facility] Grimaldo, DO unspecified FACC I20.0 Unstable angina Office Visit 11/26/2019 10:00a [facility] Nicky Eleanor, I11.0 Hypertensive heart Assoc,pc INDUSTRIAL E[employer]OMICS PROFESSOR disease with heart Hospitalists failure I50.23 Acute on chronic systolic (congestive) heart failure J96.01 Acute respiratory failure with hypoxia I20.0 Unstable angina K21.9 Gastro-esophageal reflux disease without esophagitis E11.9 Type 2 diabetes mellitus without complications Office Visit 11/25/2019 [facility] Nicky Eleanor, E11.9 Type 2 diabetes 9:59a Assoc,pc INDUSTRI[employer] ECONOMICS PROFESSOR mellitus without Hospitalists complications J44.9 Chronic obstructive pulmonary disease, unspecified K21.9 Gastro-esophageal reflux disease without esophagitis Office Visit 11/24/2019 4:40p [facility] Tomas SWilfredo I50.9 Heart failure, Of [facility] Dillan, DO unspecified FACC I20.0 Unstable angina Office Visit 11/24/2019 9:58a [facility] Nicky Eleanor, I11.0 Hypertensive heart Assoc,pc INDUSTRIAL ECONOMICS PROFESSOR disease with heart Hospitalists failure E11.9 Type 2 diabetes mellitus without complications J44.9 Chronic obstructive pulmonary disease, unspecified K21.9 Gastro-esophageal reflux disease without esophagitis Office Visit 11/23/2019 [facility] Joi I11.0 Hypertensive 9:58a Assoc,MADDIE Gomez heart disease Hospitalists with heart failure I50.20 Unspecified systolic (congestive) heart failure R07.9 Chest pain, unspecified E11.9 Type 2 diabetes mellitus without complications J44.9 Chronic obstructive pulmonary disease, unspecified Office Visit 11/23/2019 3:13p [facility] Tomas SWilfredo I50.9 Heart failure, Of [facility] Dillan, DO unspecified FACC I20.0 Unstable angina Office Visit 11/21/2019 8:00a [facility] Tomas Navarrete I25.119 Athscl heart Of [facility] Dillan, DO disease of FACC ambler cor art w unsp ang pctrs E11.65 Type 2 diabetes mellitus with hyperglycemia 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 unspecified Hospitalists E05.90 Thyrotoxicosis, unsp without thyrotoxic crisis or storm I50.9 Heart failure, unspecified J44.9 Chronic obstructive pulmonary disease, unspecified E11.9 Type 2 diabetes mellitus without complications R60.0 Localized edema Z95.1 Presence of aortocoronary bypass graft Office Visit 10/29/2019 8:55a [facility] Katerina R07.9 Chest pain, Assoc,pc MD Nii unspecified Hospitalists R79.89 Other specified abnormal findings of blood chemistry I50.9 Heart failure, unspecified E11.9 Type 2 diabetes mellitus without complications J44.9 Chronic obstructive pulmonary disease, unspecified Z95.1 Presence of aortocoronary bypass graft Office Visit 10/28/2019 3:19p [facility] Nehemiah Jaeger R07.9 Chest pain, Of Sonja Hirsch M.D., unspecified FACC, FASNC R79.89 Other specified abnormal findings of blood chemistry I25.10 Athscl heart disease of ambler coronary artery w/o ang pctrs Z95.1 Presence of aortocoronary bypass graft Office Visit 10/28/2019 [facility] Trinity Puentes R07.9 Chest pain, 8:54a Assoc,tania Steward unspecified Hospitalists I21.4 Non-St elevation (Nstemi) myocardial infarction E03.9 Hypothyroidism, unspecified I50.9 Heart failure, unspecified E11.9 Type 2 diabetes mellitus without complications Office Visit 09/05/2019 10:20a [facility] Tomas SWilfredo I50.40 Unsp combined Of Science Editor Dillan, DO systolic and FACC diastolic (congestive) hrt fail E11.69 Type 2 diabetes mellitus with other specified complication I73.9 Peripheral vascular disease, unspecified I10 Essential (primary) hypertension E78.5 Hyperlipidemia, unspecified F17.201 Nicotine dependence, unspecified, in remission I45.19 Other right bundle-branch block I63.9 Cerebral infarction, unspecified N18.9 Chronic kidney disease, unspecified Z95.2 Presence of prosthetic heart valve J44.9 Chronic obstructive pulmonary disease, unspecified Assessments Date Code Description Provider 01/23/2020 R06.02 Shortness of breath Winifred Ahumada MD 01/23/2020 J44.1 Chronic obstructive pulmonary disease Winifred Ahumada MD with (acute) exacerbation 01/23/2020 J01.90 Acute sinusitis, unspecified Winifred Ahumada MD 01/23/2020 R59.0 Localized enlarged lymph nodes Winifred Ahumada MD 12/29/2019 I25.119 Atherosclerotic heart disease of Tomasnicole Sernano, DO [facility] ambler coronary artery with unspecified angina pectoris 12/22/2019 [...] R94.31 Abnormal electrocardiogram [ECG] Tomas Grimaldo DO [facility] [EKG] 12/11/2019 R07.9 Chest pain, unspecified MADDIE Schulz 12/11/2019 R07.9 Chest pain, unspecified Dao Dumont M.D., [facility], [facility] 12/11/2019 I11.0 Hypertensive heart disease with heart MADDIE Schulz failure 12/11/2019 I50.20 Unspecified systolic (congestive) MADDIE Schulz heart failure 12/11/2019 E11.40 Type 2 diabetes mellitus with MADDIE Schulz diabetic neuropathy, unspecified 12/11/2019 Z79.4 residential (current) use of insulin MADDIE Schulz 12/10/2019 R07.9 Chest pain, unspecified MADDIE Schulz 12/10/2019 E11.40 Type 2 diabetes mellitus with MADDIE Schulz diabetic neuropathy, unspecified 12/10/2019 I11.0 Hypertensive heart disease with heart MADDIE Schulz failure 12/10/2019 I50.20 Unspecified systolic (congestive) MADDIE Schulz heart failure 12/10/2019 J44.9 Chronic obstructive pulmonary MADDIE Schulz disease, unspecified 12/10/2019 Z79.4 moth exterminator (current) use of insulin MADDIE Schulz 12/05/2019 I50.9 Heart failure, unspecified Tomas Grimaldo, DO FACC 12/05/2019 I25.119 Atherosclerotic heart disease of Tomas Grimaldo, DO FACC ambler coronary artery with unspecified angina pectoris 12/05/2019 E11.65 Type 2 diabetes mellitus with Tomas Grimaldo, DO FACC hyperglycemia 12/05/2019 E05.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 Tomas Grimaldo, DO FACC multinodular goiter without thyrotoxic crisis or storm 12/05/2019 Z95.1 Presence of aortocoronary bypass Tomas Grimaldo, DO FACC graft 12/05/2019 I10 Essential (primary) hypertension Tomas Grimaldo, DO FACC 12/05/2019 J44.9 Chronic obstructive pulmonary Tomas Grimaldo, [...] Hypertensive heart disease with heart Nicky Eleanor, IND[employer] PROFESSOR failure 11/26/2019 I50.23 Acute on chronic systolic Nicky Eleanor, INDUST[employer] ECONOM[employer] PROFESSOR (congestive) heart failure 11/26/2019 I50.9 Heart failure, unspecified Tomas Grimaldo, DO FACC 11/26/2019 J96.01 Acute respiratory failure with Nicky Eleanor, IND[employer] PROFESSOR hypoxia 11/26/2019 I20.0 Unstable angina Nicky Eleanor, INDUST[employer] E[employer]OM[employer] PROFESSOR 11/26/2019 I20.0 Unstable angina Tomas Grimaldo, DO FACC 11/26/2019 K21.9 Gastro-esophageal reflux disease Nicky Eleanor, IND[employer] PROFESSOR without esophagitis 11/26/2019 E11.9 Type 2 diabetes mellitus without Nicky Eleanor, IND[employer]OM[employer] PROFESSOR complications 11/25/2019 R94.31 Abnormal electrocardiogram [ECG] Tomas Grimaldo, DO FAC [EKG] 11/25/2019 E11.9 Type 2 diabetes mellitus without Nicky Eleanor, INDUST[employer]OM[employer] PROFESSOR complications 11/25/2019 J44.9 Chronic obstructive pulmonary Nicky Eleanor, INDUSTRI[employer] ECONOM[employer] PROFESSOR disease, unspecified 11/25/2019 K21.9 Gastro-esophageal reflux disease Nicky Eleanor, INDUST[employer] ECONOM[employer] PROFESSOR without esophagitis 11/24/2019 I45.10 Unspecified right bundle-branch block Tomas Grimaldo, DO FACC 11/24/2019 I11.0 Hypertensive heart disease with heart Nicky Eleanor, INDUSTRI[employer] E[employer]OMICS PROFESSOR failure 11/24/2019 I50.9 Heart failure, unspecified Tomas Grimaldo, DO FACC 11/24/2019 E11.9 Type 2 diabetes mellitus without Nicky Eleanor, INDUST[employer] E[employer]OM[employer] PROFESSOR complications 11/24/2019 I20.0 Unstable angina Tomas Grimaldo, DO FACC 11/24/2019 J44.9 Chronic obstructive pulmonary Nicky Eleanor, INDUSTRI[employer] ECONOM[employer] PROFESSOR disease, unspecified 11/24/2019 K21.9 Gastro-esophageal reflux disease Nicky Eleanor, INDUSTRI[employer] ECONOMICS PROFESSOR without esophagitis 11/23/2019 I45.10 Unspecified right bundle-branch block Tomas Grimaldo, DO FACC 11/23/2019 I11.0 Hypertensive heart disease with heart Joi Pop, PA failure 11/23/2019 I50.9 Heart failure, unspecified Tomasnicole Sernano, DO FACC 11/23/2019 I50.20 Unspecified systolic (congestive) MADDIE Owen heart failure 11/23/2019 I20.0 Unstable angina Tomasnicole Grimaldo, DO FAC 11/23/2019 R07.9 Chest pain, unspecified MADDIE Owen 11/23/2019 E11.9 Type 2 diabetes mellitus without MADDIE Owen complications 11/23/2019 J44.9 Chronic obstructive pulmonary MADDIE Owen disease, unspecified 11/21/2019 I25.119 Atherosclerotic heart disease of Tomas Grimaldo, DO [facility] ambler coronary artery with unspecified angina pectoris 11/21/2019 E11.65 Type 2 diabetes mellitus with Tomas Grimaldo, DO [facility] hyperglycemia 11/21/2019 E05.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 Tomas Grimaldo, DO [facility] multinodular goiter without thyrotoxic crisis or storm 11/21/2019 I50.9 Heart failure, unspecified Tomas Grimaldo, DO [facility] 11/21/2019 Z95.1 Presence of aortocoronary bypass Tomasnicole Sernano, DO [facility] graft 11/21/2019 I10 Essential (primary) hypertension Tomas SWilfredo Grimaldo, DO FACC 11/21/2019 E78.5 Hyperlipidemia, unspecified Tomasnicole Grimaldo, DO [facility] 11/02/2019 E11.65 Type 2 diabetes mellitus with Hector Ramírez MD hyperglycemia 11/02/2019 E05.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 Hector Ramírez MD multinodular goiter without thyrotoxic crisis or storm 11/02/2019 Z79.4 moth exterminator (current) use of insulin Hector Ramírez MD [...] R07.9 Chest pain, unspecified Nehemiah Hirsch M.D., [facility], FASPR 10/29/2019 R07.9 Chest pain, unspecified Katerina [...] R07.9 Chest pain, unspecified Nehemiah Hirsch M.D., [facility], [facility] 10/28/2019 R79.89 Other specified abnormal findings of Nehemiah Hirsch M.D., [facility], blood chemistry FASPR 10/28/2019 I25.10 Atherosclerotic heart disease of Nehemiah Hirsch M.D., [facility], ambler coronary artery without angina FASPR pectoris 10/28/2019 Z95.1 Presence of aortocoronary bypass Nehemiah Hirsch M.D., [facility], graft FASPR 10/28/2019 R07.9 Chest pain, unspecified Trinity Puentes M.D. 10/28/2019 R94.31 Abnormal electrocardiogram [ECG] Nehemiah Hirsch M.D., [facility], [EKG] FASPR 10/28/2019 I21.4 Non-St elevation (Nstemi) myocardial Trinity Puentes M.D. infarction 10/28/2019 E03.9 Hypothyroidism, unspecified Trinity Puentes M.D. 10/28/2019 I50.9 Heart failure, unspecified Trinity Puentes M.D. 10/28/2019 E11.9 Type 2 diabetes mellitus without Trinity Puentes M.D. complications 09/05/2019 I50.40 Unspecified combined systolic Tomas Grimaldo DO [facility] (congestive) and diastolic (congestive) heart failure 09/05/2019 E11.69 Type 2 diabetes mellitus with other Tomas Rosalba Grimaldo DO FAC specified complication 09/05/2019 I73.9 Peripheral vascular disease, Tomas Sernano, DO FACC unspecified 09/05/2019 I10 Essential (primary) hypertension Tomas SWilfredo Grimaldo, DO FACC 09/05/2019 E78.5 Hyperlipidemia, unspecified Tomas Grimaldo, DO FACC 09/05/2019 F17.201 Nicotine dependence, unspecified, in Tomas Sernano, DO FAC remission 09/05/2019 I45.19 Other right bundle-branch block Tomas Grimaldo DO FAC 09/05/2019 I63.9 Cerebral infarction, unspecified Tomas Navarrete Grimaldo, DO FAC 09/05/2019 N18.9 Chronic kidney disease, unspecified Tomas Grimaldo, DO FAC 09/05/2019 Z95.2 Presence of prosthetic heart valve Tomas Grimaldo DO FAC 09/05/2019 J44.9 Chronic obstructive pulmonary Tomas Grimaldo DO [facility] disease, unspecified 08/30/2019 R07.9 Chest pain, unspecified Tomas Grimaldo, DO FAC 08/29/2019 I95.9 Hypotension, unspecified Tomas Grimaldo, DO FAC 08/29/2019 I95.9 Hypotension, unspecified Ica ECHO Schedule Plan of Treatment Future Appointment(s):02/13/2020 11:00 am - Hector Ramírez MD at [facility]03/05/2020 10:20 am - Tomas Grimaldo DO [facility] at [facility]01/23/2020 - Winifred Ahumada, MDR06.02 Shortness of breathFollow up:3 ukdnaW51.1 Chronic obstructive pulmonary disease with (acute) exacerbationNew Medication:Doxycycline Hyclate 100 mg - 1 tab every 12 hoursPrednisone 10 mg (48) - 1 tab for 2 weeks, 1/2 tab for 1 weekJ01.90 Acute sinusitis, dkpztpcmllaG07.0 Localized enlarged lymph nodes Functional Status Description No Information Available Mental Status Description No Information Available Referrals Refer to Reason for Referral Status Appt Date Uri Wallace, DPM diabetic neuropathy Sent [address] [place] [address] [phone]
--- OUTSIDE RECORDS SUMMARY | 2020-02-05 20:45 | XMS REPORT | Continuity of Care Document ---
:1965 External Reference #:[id number] Author Name Jamaal Garcia D.O. (transmitted by agent of provider Kenyatta Brown) Address [address] [place] [address] Care Team Providers Name Role Phone HCP/LW on file Care Team Information Packaging Line Attendant Unavailable [facility], Care Team Information Packaging Line Attendant [phone] Cardiovascular Winifred Ahumada MD - Pulmonary Care Team Information Packaging Line Attendant [phone] Disease Femi Degroot MD - Vascular & Care Team Information Packaging Line Attendant Interventional Radiology [facility] - Wound Care Care Team Information Packaging Line Attendant [facility] & Care Team Information Packaging Line Attendant [phone] Problems Active Problems Provider Date Type II [...] Medications SIG Qnty Indications Ordering Date Provider Prednisone 1 tab po daily for 2 Zita, 01/23/2020 10mg weeks then 1/2 tab MD Winifred Tablets daily for week Baclofen 1 by mouth three times 30tabs M54.31 Sopchak, 01/18/2020 5mg a day as needed muscle Jamaal, D.O. Tablets spasm Oxycodone-Acetamin 1 every 4 hours as 42tabs M54.31 S[place]chak, 01/18/2020 ophen needed severe pain Jamaal, D.O. 5-325mg Tablets Jardiance one tab po daily Hector Ramírez, 01/04/2020 10mg MD Tablets Famotidine take 1 tablet by mouth 60tabs [facility], 12/18/2019 40mg 2 times per day for Jamaal, D.O. Tablets gastroesophageal reflux disease Furosemide 2 (80 mg) tablets by Unknown 11/26/2019 40mg mouth every day Tablets Carvedilol take one tablet by Unknown 11/26/2019 12.5mg mouth twice a day Tablets Levemir 45 units in am and 45 E11.69 Unknown 11/26/2019 units in evening 100Unit/ML Solution Novolog Flexpen as directed 3 x/day E11.69 Unknown 11/26/2019 before meals and at hs 100Unit/ML Solution Pen-Inject Sucralfate Take 1 Tablet By Mouth Unknown 11/15/2019 1gm Before Meals And AT Tablets Bedtime Brilinta Take One Tablet By Unknown 10/31/2019 90mg Mouth Twice A Day Tablets Losartan Potassium 1 tablet daily for Unknown 10/30/2019 high blood pressure 25mg Tablets Methimazole 1 tablet by mouth Unknown 10/30/2019 5mg daily Tablets Albuterol Sulfate 1-2 puffs inhaled Unknown 05/14/2019 HFA every 6 hours as 108(90Base) needed for shortness mcg/Act Aerosol of breath Incruse Ellipta Inhale One puff By 30units J44.9 [facility], 05/14/2019 Mouth Every Day [place] 62.5mcg/Inh Aerosol Mineral Oil place 4-drops in ears 30units L20.9 [facility], 04/13/2019 Oil every week for [place] excessive cerumen and dry ear canals as needed Onetouch Delica use with diabetic 100units [facility], 01/30/2019 Lancets Fine 30G supplies five times a [place] day as directed 30G Misc Onetouch Verio test 1-4 daily as 200units E11.65 [facility], 01/27/2019 directed [place] Strips Onetouch Verio use 1-4 times daily [facility], 01/27/2019 directed [place] w/Device Kit BD Uf Mini Pen Use Up To 6 Times 400units [facility], 01/27/2019 Needle [id number] Daily as Directed For [place] Insulin Administration Aspirin Children's 1 by mouth daily Unknown 11/23/2018 81mg Pantoprazole Take One Tablet By 60tabs [facility], 05/26/2018 Sodium Mouth Twice A Day [place] 40mg Tablets DR Tylenol give 2 tablets by Unknown 05/26/2018 325mg mouth [id number] as Tablets needed for pain / otc Atorvastatin 1 by mouth every Unknown 08/20/2017 Calcium evening 80mg Tablets Docusate Sodium 1 cap by mouth twice a Unknown 08/20/2017 day as needed for 100mg Capsules constipation BD Pen or appropriate needles 400units [facility], 05/20/2017 Needle/Mini/Ultraf for lantus/Novolog [place] ine/31G X 3/16" pen. use up to 6/day, as directed, for 31G X 5 mm Misc insulin administration Lancets use as directed for 200units E11.65 [facility], 05/20/2017 [place] diabetic testing [place] Safety Misc Gabapentin 1 by three times a 90caps [facility], 300mg day. [place] Capsules History Medications Doxycycline Hyclate 1 tab po every 12 Zita, Winifred, 01/23/2020 - hrs. x 7 days 01/30/2020 100mg Tablets Isosorbide 1 tablet by mouth Unknown 11/26/2019 - Mononitrate ER daily 11/26/2019 30mg Tablets ER 24HR Levemir 80 units E11.69 Unknown 10/30/2019 - 100Unit/ML subcutaneous daily 11/26/2019 Solution Neomycin/Polymyxin/ 1 drop 4 times a day 5ml Jamaal Garcia, 10/20/2019 - Dexamethasone left eye for 5 days D.O. 10/20/2019 [id number] Suspension Tobradex 1 left eye three 5ml H10.89 Jamaal Garcia, 10/20/2019 - 0.3-0.1% times a day for 5 D.O. 10/25/2019 Suspension days or 1 day after symptoms resolve. Novolog Flexpen 20 units before 45ml E11.69 Jamaal Garcia, 10/12/2019 - dinner D.O. 11/26/2019 100Unit/ML Solution Pen-Inject Novolog Mix 70/30 30u in in the 45ml E11.69 Jamaal Garcia, 09/08/2019 - Prefilled Flexpen morning D.O. 11/12/2019 (70-30)100Unit/ML Supn Immunizations CPT Code Status Date Vaccine Lot # [id number] Given 07/19/2019 Influenza Virus Vaccine, Quadrivalent, Split, [id number] Preservative Free [id number] Given 09/01/2018 Influenza Virus Vaccine, Quadrivalent, Split, [id number] Preservative Free 45123 Given 07/08/2017 Influenza Virus Vaccine, Quadrivalent, Split, [id number] Preservative Free 43680 Given 01/18/2017 Adacel or Boostrix, TDaP [id number] Given 11/30/2016 Influenza Virus Vaccine, Quadrivalent, Split, Im Use U-Pneum Given 01/18/2009 Pneumococcal,Unspecified Vital Signs Date Vital Result Comment 01/25/2020 10:14am Weight 202.00 lb 202.4 # per pt. 01/12/2020 11:41am BP Systolic 96 mmHg BP Diastolic 60 mmHg Heart Rate 77 /min O2 % BldC Oximetry 95 % Body Temperature 97.6 F Weight 206.00 lb Results Test Acquired Date Facility Test Result H/L Range Note Cytology 01/25/2020 [facility] Cytology SEE RESULT 1 Non-Fur Repair Inspector [phone] [place] BELOW PDFReport SEE IMAGE CBC Auto Diff 01/23/2020 [facility] White Blood 10.6 10^3/uL Normal 3.5-10.8 [phone] Count Red Blood Count 4.41 10^6/uL Normal 3.70-4.87 Hemoglobin 12.6 g/dL Normal 12.0-16.0 Hematocrit 37 % Normal 35-47 Mean Corpuscular Volume 85 fL Normal 80-97 Mean Corpuscular Hemoglobin 29 pg Normal 27-31 Mean Corpuscular HGB Conc 34 g/dL Normal 31-36 Red Cell Distribution Width 17 % High 10-15 Platelet Count 351 10^3/uL Normal 150-450 Mean Platelet Volume 8.2 fL Normal 7.4-10.4 Abs Neutrophils 8.1 10^3/uL High 1.5-7.7 Abs Lymphocytes 1.6 10^3/uL Normal 1.0-4.8 Abs Monocytes 0.6 10^3/uL Normal 0-0.8 Abs Eosinophils 0.2 10^3/uL Normal 0-0.6 Abs Basophils 0.1 10^3/uL Normal 0-0.2 Abs Nucleated RBC 0.0 10^3/uL Granulocyte % 76.6 % Lymphocyte % 15.0 % Monocyte % 5.5 % Eosinophil % 2.2 % Basophil % 0.7 % Nucleated Red Blood Cells % 0.0 Laboratory test 01/23/2020 [facility] Lactic Acid 2.0 mmol/L Normal 0.5-2.0 2 finding [phone] Comp Metabolic 01/23/2020 [facility] Sodium 134 mmol/L Low 135-145 Panel [phone] Potassium 3.9 mmol/L Normal 3.5-5.0 Chloride 100 mmol/L Low 101-111 Co2 Carbon Dioxide 22 mmol/L Normal 22-32 Anion Gap 12 mmol/L High 2-11 Glucose 287 mg/dL High 70-100 Blood Urea Nitrogen 43 mg/dL High 6-24 Creatinine 1.53 mg/dL High 0.51-0.95 BUN/Creatinine Ratio 28.1 High 8-20 Calcium 9.7 mg/dL Normal 8.6-10.3 Total Protein 8.1 g/dL Normal 6.4-8.9 Albumin 4.1 g/dL Normal 3.2-5.2 Globulin 4.0 g/dL Normal 2-4 Albumin/Globulin Ratio 1.0 Normal 1-3 Total Bilirubin 0.70 mg/dL Normal 0.2-1.0 Alkaline Phosphatase 159 U/L High 34-104 Alt 15 U/L Normal 7-52 Ast 14 U/L Normal 13-39 Egfr Non- 35.2 >60 Egfr 42.6 >60 3 Laboratory test 01/23/2020 [facility] Troponin-I (TnI) 0.02 ng/mL < 0.03 4 finding [phone] B-Type Natriuretic Peptide BNP 180 pg/mL High <=100 Laboratory test 12/21/2019 [facility] Surgical SEE RESULT 5 finding [phone] Pathology BELOW Order Laboratory test 12/21/2019 [facility] Troponin-I 0.07 ng/mL Critical high <0.0 6 finding [phone] (TnI) 3 CBC Auto Diff 12/21/2019 [facility] White Blood 10.3 Normal 3.5- [phone] Count 10^3/uL 10.8 Red Blood Count 4.17 10^6/uL Normal 3.70-4.87 [...] Cells % 0.0 Comp Metabolic Panel 12/21/2019 [facility] Sodium 139 mmol/L Normal 135-145 [phone] Potassium 3.8 mmol/L Normal 3.5-5.0 Chloride 105 [...] Egfr Non- 36.3 >60 Egfr 44.0 >60 7 Laboratory test finding 12/21/2019 [facility] Lipase 17 U/L Normal 11.0-82.0 [phone] C Reactive Protein 8.07 mg/L High <8.01 Lactic Acid 1.9 mmol/L Normal 0.5-2.0 8 Troponin-I (TnI) 0.07 ng/mL Critical high <0.03 9 TSH (Thyroid Stim Horm) 0.42 mcIU/mL Normal 0.34-5.60 Laboratory test 12/10/2019 [facility] Magnesium 2.5 mg/dL Normal 1.9- 2.7 finding [phone] Lipase 22 U/L Normal 11.0-82.0 B-Type Natriuretic Peptide BNP 226 pg/mL High <=100 TSH (Thyroid Stim Horm) 1.38 mcIU/mL Normal 0.34-5.60 Comp Metabolic Panel 12/10/2019 [facility] Sodium 138 mmol/L Normal 135-145 [phone] Potassium 4.2 mmol/L Normal 3.5-5.0 Chloride 102 [...] Egfr Non- 32.1 >60 Egfr 38.8 >60 10 Laboratory test 12/10/2019 [facility] Troponin-I (TnI) 0.01 ng/mL < 0.03 11 finding [phone] CBC Auto Diff 12/10/2019 [facility] White Blood 11.7 High 3.5-10.8 [phone] Count 10^3/uL Red Blood Count 4.50 10^6/uL Normal 3.70-4.87 [...] Red Blood Cells % 0.0 Laboratory test 12/07/2019 In House Hemoglobin A1c 8.1 finding Laboratory test 11/23/2019 [facility] Troponin-I (TnI) 0.02 ng/mL < 0.03 12 finding [phone] Inr/Protime 11/23/2019 [facility] Inr 0.97 Normal 0.82-1 13 [phone] .09 CBC Auto Diff 11/23/2019 [facility] White Blood Count 14.7 High 3.5- 10 [phone] 10^3/uL .8 Red Blood Count 3.97 10^6/uL Normal 3.70-4.87 [...] Blood Cells % 0.0 Laboratory test 11/23/2019 [facility] Troponin-I 0.02 ng/mL <0.03 14 finding [phone] (TnI) Comp Metabolic 11/23/2019 [facility] Sodium 140 mmol/L Normal 135- 145 Panel [phone] Potassium 4.5 mmol/L Normal 3.5-5.0 Chloride 107 [...] Egfr Non- 51.0 >60 Egfr 61.7 >60 15 Laboratory test 11/23/2019 [facility] B-Type Natriuretic 443 pg/mL High <=100 finding [phone] Peptide BNP Magnesium 2.1 mg/dL Normal 1.9-2.7 Laboratory test 10/28/2019 [facility] Troponin-I 0.11 Critical <0.03 16 finding [phone] (TnI) ng/mL high Urine Culture And 10/27/2019 [facility] Urine Culture SEE 17 Sensitivities [phone] RESULT BELOW Urinalysis 10/27/2019 [facility] Urine Color Yellow Profile [phone] Urine Appearance Clear Urine Specific [place] 1.013 Normal 1.010-1.030 Urine pH 6.0 Normal [...] Cell Present Abnormal Absent Laboratory test 10/27/2019 [facility] Magnesium 2.2 mg/dL Normal 1.9- 2.7 finding [phone] Lipase 18 U/L Normal 11.0-82.0 Troponin-I (TnI) 0.04 ng/mL Critical high <0.03 18 C Reactive Protein 18.58 mg/L High <8.01 TSH (Thyroid Stim Horm) 0.09 mcIU/mL Low 0.34-5.60 B-Type Natriuretic Peptide BNP 120 pg/mL High <=100 T3 Free 4.50 pg/mL High 2.5-3.9 Free T4 (Free Thyroxine) 1.41 ng/dL High 0.61-1.12 Comp Metabolic Panel 10/27/2019 [facility] Sodium 133 mmol/L Low 135- 145 [phone] Potassium 3.9 mmol/L Normal 3.5-5.0 Chloride 98 [...] Egfr Non- 33.2 >60 Egfr 40.2 >60 19 CBC Auto Diff 10/27/2019 [facility] White Blood 10.2 10^3/uL Normal 3.5-10.8 [phone] Count Red Blood Count 4.56 10^6/uL Normal [...] Blood Cells % 0.1 Laboratory test 09/15/2019 [facility] Lactic Acid 1.5 mmol/L Normal 0.5-2.0 20 finding [phone] Comp Metabolic 09/15/2019 [facility] Sodium 135 mmol/L Normal 135- 145 Panel [phone] Potassium 4.2 mmol/L Normal 3.5-5.0 Chloride 102 [...] Egfr Non- 42.5 >60 Egfr 51.5 >60 21 Laboratory test finding 09/15/2019 [facility] Lipase 12 U/L Normal 11.0-82.0 [phone] C Reactive Protein 22.47 mg/L High <8.01 CBC Auto Diff 09/15/2019 [facility] White Blood 11.5 10^3/uL High 3.5 -10.8 [phone] Count Red Blood Count 4.67 10^6/uL Normal [...] Hemoglobin A1c 11.8 finding Urine Microalbumin 09/08/2019 [facility] Ur Microalbumin 26.1 mg/L Random [phone] (mg/L) Urine Creatinine 26.09 mg/dL Urine Microalbumin/Creatinine 100.0 High <31 Laboratory 08/20/2019 [facility] Point of Care 432 Critical 70-100 22 test finding [phone] Glucose mg/dL high Laboratory 08/20/2019 [facility] Glucose 495 High 70-100 test finding [phone] Confirmatory mg/dL Laboratory 08/20/2019 [facility] Point of Care > 444 Critical 70-100 23 test finding [phone] Glucose mg/dL high Laboratory 08/20/2019 [facility] Troponin-I 0.02 <0.04 24 test finding [phone] (TnI) ng/mL CBC Auto Diff 08/20/2019 [facility] White Blood 7.4 Normal 3.5-10.8 [phone] Count 10^3/uL Red Blood Count 4.74 10^6/uL [...] Red Blood Cells % 0.1 Inr/Protime 08/20/2019 [facility] Inr 0.88 Normal 0.82-1.09 25 [phone] Comp Metabolic Panel 08/20/2019 [facility] Sodium 130 mmol/L Low 135- 145 [phone] Potassium 4.8 mmol/L Normal 3.5-5.0 Chloride 96 [...] Egfr Non- 31.2 >60 Egfr 37.8 >60 26 Glucose 617 mg/dL Critical high 70-100 27 Laboratory test 08/20/2019 [facility] Troponin-I (TnI) 0.03 ng/mL < 0.04 28 finding [phone] Laboratory test 08/20/2019 [facility] Point of Care 351 mg/dL High 70 -100 29 finding [phone] Glucose 1 SEE RESULT BELOW Name: GABRIEL CHAVEZ : [address]: Jamaal Garcia DO Acct: [id number] Unit: [id number] AGE: 54 Location: Re01/25/20 SEX: F Status: REG REF SPEC: [id number] KYRA: 01/25/20-[address]: Jamaal Garcia DO REQ: [id number] RECD: 01/25/20-1499 STATUS: MOIZ GRIJALVA DR: Femi Degroot MD _ ORDERED: FNA-IMG GUID BX, CYTO ADEQ-1ST P FINAL DIAGNOSIS Thyroid, left, Ultrasound guided, fine needle aspiration: -- Benign thyroid nodule, involutional type ([place] class II). The specimen demonstrates abundant watery proteinaceous fluid, an abundant amount of benign appearing follicular epithelium arranged in uniform sheets, medium sized follicles and only occasional small groups. Abundant pigmented and non-pigmented macrophages are seen in the background. No features of papillary carcinoma are seen. In this clinical setting the risk of malignancy is less than 3%. Clinical management of this thyroid nodule should be based on clinical and radiographic features as well as the above findings. SPECIMEN(S) RECEIVED THYROID LEFT - US GUIDED FINE NEEDLE ASPIRATION CONTINUED ON NEXT PAGE DEPARTMENT OF PATHOLOGY, [address] [place] [address] Mg Ruff M.D. Director CLIA # [id number] CLINICAL HISTORY Left thyroid nodule, 5.4x 4.6x 2.3cm IMMEDIATE INTERPRETATION Pass 1, and 2-adequate. GROSS DESCRIPTION 3- alcohol fixed slide(s) 2 - passes Signed by and Reported on: Mg Ruff MD 01/11 1237 END OF REPORT DEPARTMENT OF PATHOLOGY, [address] [place] [address] Mg Ruff M.D. Director CLIA # [id number] 2 [facility] Severe Sepsis and Septic Shock Management Bundle Measure requires all lactic acids initially measuring >2.0 mmol/L be repeated. 3 Because ethnic data is not always [...] 5 Kidney failure <15 (or dialysis) 4 Troponin-I testing on Plasma Separator Tubes (PST) has a known false positive rate of 0.20-0.40%. All positive troponins reflex immediately to secondary confirmatory testing. Using the MEETiiN DxI 800 Access Immunoassay systems, the 99th percentile upper reference limit was demonstrated to be < 0.03 ng/mL. 5 SEE RESULT BELOW Name: GABRIEL CHAVEZ : [address]: Trinity Puentes MD Acct: [id number] Unit: [id number] AGE: 54 Location: [place] [address] Re12/21/19 Dis: 12/22/19 SEX: F Status: DIS Ld SPEC: [id number] KYRA: 12/21/19- [facility] DR: Vick Thompson MD REQ: [id number] RECD: 12/22/19-130 STATUS: MOIZ GRIJALVA DR: Sinai Garcia DO [...] 1239 END OF REPORT DEPARTMENT OF PATHOLOGY, [address] [place] [address] Mg Ruff M.D. Director [facility] # [id number] 6 Result TnIDx:0.07 Called to [id number] at: 04:12 by:[id number] Read back by: [id number] Troponin-I testing on Plasma Separator Tubes (PST) has a known false positive rate of 0.20-0.40%. All positive troponins reflex immediately to secondary confirmatory testing. Using the MEETiiN DxI 800 Access Immunoassay systems, the 99th [...] 5 Kidney failure <15 (or dialysis) 8 [facility] Severe Sepsis and Septic Shock Management Bundle Measure requires all lactic acids initially measuring >2.0 mmol/L be repeated. 9 Result TnIDx:0.07 Called to [id number] at: 01:38:13 by:[id number] Read back by: [id number] Troponin-I testing on Plasma Separator Tubes (PST) has a known false positive rate of 0.20-0.40%. All positive troponins reflex immediately to secondary confirmatory testing. Using the MEETiiN DxI 800 Access Immunoassay systems, the 99th percentile upper reference limit was demonstrated to be < 0.03 ng/mL. 10 Because ethnic data is not always [...] immediately to secondary confirmatory testing. Using the UnicOscar DxI 800 Access Immunoassay systems, the 99th percentile upper reference limit was demonstrated to be < 0.03 ng/mL. 12 Troponin-I testing on Plasma Separator Tubes (PST) has a known false positive rate of 0.20-0.40%. All positive troponins reflex immediately to secondary confirmatory testing. Using the Unicel DxI 800 Access Immunoassay systems, the 99th percentile upper reference limit was demonstrated to be < 0.03 ng/mL. 13 Standard intensity warfarin therapeutic range: 2.0-3.0 High intensity warfarin therapeutic range: 2.5-3.5 14 Troponin-I testing on Plasma Separator Tubes (PST) [...] 5 Kidney failure <15 (or dialysis) 16 Result TnIDx:0.11 Called to [id number] at: 02:17:43 by:[id number] Read back by: [id number] Troponin-I testing on Plasma Separator Tubes (PST) has a known false positive rate of 0.20-0.40%. All positive troponins reflex immediately to secondary confirmatory testing. Using the Un[employer]el DxI 800 Access Immunoassay systems, the 99th percentile upper reference limit was demonstrated to be < 0.03 ng/mL. 17 SEE RESULT BELOW Name: GABRIEL CHAVEZ : [address]: Dianna Calvillo MD Acct: [id number] Unit: [id number] AGE: 54 Location: [place] [address] Re10/28/19 SEX: F Status: ADM IN SPEC: [id number] KYRA: 10/28/[address]: Jesse PERKINS REQ: [id number] RECD: 10/28/19 STATUS: MJ GRIJALVA DR: [facility] Jamaal Garcia DO _ [facility]: Urine Culture Procedure Result Reported Site Urine Culture Final 10/29/19- 1154 ML Organism 1 AEROCOCCUS URINAE [place] Count >100,000 (Many) CFU/ML Organism 2 NORMAL DICKSON [place] Count 1-10,000 (Few) CFU/ML Aerococcus isolates are too fastidious for routine susceptibility studies. Aerococcus are usually susceptible to penicillin, amoxicillin, piperacillin, cefipime, rifampin and vancomycin. Moderate to good activity occurs with the quinolones, tetracyclines and erythromycin. ([employer] Color [place] and Textbook of Diagnostic Microbiology 6th Ed. 2006, p. 705-6.) * ML - Main Lab . END OF REPORT DEPARTMENT OF PATHOLOGY, [address] [place] [address] Mg Ruff M.D. Director [facility] # [id number] 18 Result TnIDx:0.04 Called to [id number] at: 23:33:09 by:[id number] Read back by: [id number] Troponin-I testing on Plasma Separator Tubes (PST) has a known false positive rate of 0.20-0.40%. All positive troponins reflex immediately to secondary confirmatory testing. Using the MEETiiN DxI 800 Access Immunoassay systems, the 99th [...] 5 Kidney failure <15 (or dialysis) 20 [facility] Severe Sepsis and Septic Shock Management [...] 5 Kidney failure <15 (or dialysis) 22 Trash Collector: [id number] 23 Trash Collector: [id number] 24 Troponin-I testing on Plasma Separator Tubes (PST) has a known false positive rate of 0.20-0.40%. All positive troponins reflex immediately to secondary confirmatory testing. Using the MEETiiN DxI 800 Access Immunoassay systems, the 99th percentile upper reference limit was demonstrated to be < 0.03 ng/mL. 25 Standard intensity warfarin therapeutic range: 2.0-3.0 High intensity warfarin therapeutic range: 2.5-3.5 26 Because ethnic data is not always [...] 5 Kidney failure <15 (or dialysis) 27 Critical Result [id number] Called to [id number] at: 17:29:14 by:[id number] Read back by:[id number] 28 Troponin-I testing on Plasma Separator Tubes (PST) has a known false positive rate of 0.20-0.40%. All positive troponins reflex immediately to secondary confirmatory testing. Using the MEETiiN DxI 800 Access Immunoassay systems, the 99th percentile upper reference limit was demonstrated to be < 0.03 ng/mL. 29 Trash Collector: [id number] Procedures Date Code Description Status 01/10/2020 765725270 Diabetic Foot Exam Completed 10/10/2019 885871892 Diabetic Retinal Eye Exam Completed 10/06/2019 85119 X-Ray Elbow Three Views Completed 02/15/2019 [id number] Mammogram Completed Medical Devices Description No Information Available Encounters Type Date Location Provider Dx Diagnosis Office Visit 02/01/2020 3:00p Main Office Jamaal Garcia D.O. R05 Cough R06.02 Shortness of breath R68.83 Chills (without fever) Office Visit 01/26/2020 2:30p Main Office Jamaal Garcia, E11.69 Type 2 diabetes D.O. 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 F17.211 Nicotine dependence, cigarettes, in remission K21.9 Gastro-esophageal reflux disease without esophagitis I70.234 Athscl [place] art of right leg w ulcer of [...] J44.9 Chronic obstructive pulmonary disease, unspecified Z79.4 long term care pharmacist (current) use of insulin F17.211 Nicotine dependence, cigarettes, in remission N18.3 Chronic kidney disease, stage 3 (moderate) K21.9 Gastro-esophageal reflux disease without esophagitis I70.234 Athscl [place]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 mellitus with other specified complication E11.65 Type 2 diabetes mellitus with hyperglycemia Z79.4 long term care pharmacist (current) use of insulin N18.3 Chronic kidney disease, stage 3 (moderate) I70.234 Athscl [place] art of right leg w ulcer of [...] with hyperglycemia I10 Essential (primary) hypertension Z79.4 long term care pharmacist (current) use of insulin N18.3 Chronic kidney disease, stage 3 (moderate) I70.234 Athscl [place] art of right leg w ulcer of [...] kidney disease, stage 3 (moderate) I70.234 Athscl [place] art of right leg w ulcer of [...] kidney disease, stage 3 (moderate) I70.234 Athscl [place] art of right leg w ulcer of heel and midfoot J44.9 Chronic obstructive pulmonary disease, unspecified F17.211 Nicotine dependence, cigarettes, in remission E11.69 Type 2 diabetes mellitus with other specified complication I50.32 Chronic diastolic (congestive) heart failure Assessments Date Code Description Provider 02/01/2020 R05 Cough Jamaal Garcia D.O. 02/01/2020 R06.02 Shortness of breath aJmaal Garcia D.O. 02/01/2020 R68.83 Chills (without fever) Jamaal Garcia D.O. 01/26/2020 E11.69 Type 2 diabetes mellitus with other specified Jamaal Garcia D.O. complication 01/26/2020 Z79.4 long term care pharmacist (current) use of insulin Jamaal Garcia D.O. 01/26/2020 I50.21 Acute systolic (congestive) heart failure Jamaal Garcia D.O. 01/26/2020 J44.9 Chronic obstructive pulmonary disease, Jamaal Garcia D.O. unspecified 01/26/2020 Z91.89 Other specified personal risk factors, not Jamaal Garcia D.O. elsewhere classified 01/26/2020 E11.69 Type 2 diabetes mellitus with other specified Jamaal Garcia D.O. 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 unspecified 01/26/2020 M79.604 Pain in right leg Jamaal Garcia D.O. 01/26/2020 I25.10 Atherosclerotic heart disease of [place] Jamaal Garcia D.O. coronary artery without angina pectoris 01/26/2020 M54.31 Sciatica, right side Jamaal Garcia D.O. 01/26/2020 Z71.89 Other specified counseling Jamaal Garcia D.O. 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 without thyrotoxic crisis or storm 01/25/2020 Z79.4 long term care pharmacist (current) use of insulin Jamaal Garcia D.O. 01/25/2020 J44.9 Chronic obstructive pulmonary disease, Jamaal Garcia D.O. unspecified 01/25/2020 E11.69 Type 2 diabetes mellitus with other specified Jamaal Garcia D.O. complication 01/25/2020 M79.604 Pain in right leg Jamaal Garcia D.O. 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 without thyrotoxic crisis or storm 01/25/2020 F17.211 Nicotine dependence, cigarettes, in remission Jamaal Garcia D.O. 01/25/2020 K21.9 Gastro-esophageal reflux disease without Jamaal Garcia D.O. 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 leg with ulceration of heel and midfoot 01/25/2020 I10 Essential (primary) hypertension Jamaal Garcia D.O. 01/18/2020 M54.31 Sciatica, right side Jamaal Garcia D.O. 01/18/2020 M54.5 Low back pain Jamaal Garcia D.O. 01/18/2020 M79.604 Pain in right leg Jamaal Garcia D.O. 01/18/2020 Z79.899 Other fci (current) drug therapy Jamaal Garcia D.O. 01/12/2020 Z79.4 long term care pharmacist (current) use of insulin Winston Garciaon, D.O. 01/12/2020 J44.9 Chronic obstructive pulmonary disease, SophamletkWinstonon, D.O. unspecified 01/12/2020 E11.69 Type 2 diabetes mellitus with other specified Sopchak, Jamaal, D.O. complication 01/12/2020 M79.604 Pain in right leg SopWinston singhon, D.O. 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 without thyrotoxic crisis or storm 01/12/2020 F17.211 Nicotine dependence, cigarettes, in remission SopWinston singhon, D.O. 01/12/2020 K21.9 Gastro-esophageal reflux disease without SophamletkWinstonon, D.O. esophagitis 01/12/2020 I70.234 Atherosclerosis of [place] arteries of right SopWinston singhon, D.O. leg with ulceration of heel and midfoot 01/12/2020 I10 Essential (primary) hypertension Winston Garciaon, D.O. 12/07/2019 I50.33 Acute on chronic diastolic (congestive) heart SopWinston singhon, D.O. failure 12/07/2019 E11.69 Type 2 diabetes mellitus with other specified Sopchak Jamaal, D.O. complication 12/07/2019 E11.69 Type 2 diabetes mellitus with other specified [place]chak, Jamaal, D.O. 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 without thyrotoxic crisis or storm 12/07/2019 J44.9 Chronic obstructive pulmonary disease, SophamletkWinstonon, D.O. unspecified 12/07/2019 Z79.4 residential (current) use of insulin Jamaal Garcia, D.O. 12/07/2019 F17.211 Nicotine dependence, cigarettes, in remission SophamletkWinstonon, D.O. 12/07/2019 N18.3 Chronic kidney disease, stage 3 (moderate) SophamletkWinstonon, D.O. 12/07/2019 K21.9 Gastro-esophageal reflux disease without Sophamletk, Jamaal, D.O. esophagitis 12/07/2019 I70.234 Atherosclerosis of [place] arteries of right Miguel AngelJamaal day, D.O. leg with ulcerat 12/07/2019 I10 Essential (primary) hypertension Jamaal Garcia D.O. 12/07/2019 J44.9 Chronic obstructive pulmonary disease, EuniceWinston singhon, D.O. unspecified 12/07/2019 F17.211 Nicotine dependence, cigarettes, in remission Jamaal Garcia D.O. 11/13/2019 E11.69 Type 2 diabetes mellitus with other specified Migule AngelkWinstonon, D.O. complication 11/13/2019 E11.65 Type 2 diabetes mellitus with hyperglycemia Jamaal Garcia , D.O. 11/13/2019 Z79.4 residential (current) use of insulin Jamaal Garcia D.O. 11/13/2019 N18.3 Chronic kidney disease, stage 3 (moderate) Jamaal Garcia D.O. 11/13/2019 I70.234 Atherosclerosis of [place] arteries of right Miguel AngelJamaal day, D.O. leg with ulcerat 11/13/2019 J44.9 Chronic obstructive pulmonary disease, SopWinston singhon, D.O. unspecified 11/13/2019 F17.211 Nicotine dependence, cigarettes, in remission Jamaal Garcia D.O. 11/13/2019 I50.32 Chronic diastolic (congestive) heart failure Jamaal Garcia D.O. 11/13/2019 I21.9 Acute myocardial infarction, unspecified Jamaal Garcia, D.O. 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 without thyrotoxic crisis or storm 10/20/2019 E11.69 Type 2 diabetes mellitus with other specified Jamaal Garcia, D.O. complication 10/20/2019 E11.65 Type 2 diabetes mellitus with hyperglycemia Jamaal Garcia , D.O. 10/20/2019 I10 Essential (primary) hypertension Jamaal Garcia D.O. 10/20/2019 Z79.4 long term care pharmacist (current) use of insulin Jamaal Garcia D.O. 10/20/2019 N18.3 Chronic kidney disease, stage 3 (moderate) Jamaal GarciaKarolynO. 10/20/2019 I70.234 Atherosclerosis of [place] arteries of right Radha JamaalMo. leg with ulcerat 10/20/2019 H10.89 Other conjunctivitis Miguel Angelbarb Karolyn HintonO. 10/12/2019 E11.69 Type 2 diabetes mellitus with other specified Jamaal Garcia D.O. complication 10/12/2019 M77.11 Lateral epicondylitis, right elbow RadhaJamaal D.O. 10/12/2019 M25.521 Pain in right elbow Miguel AngelbarbJamaal D.O. 10/12/2019 E11.65 Type 2 diabetes mellitus with hyperglycemia Jamaal Garcia D.O. 10/12/2019 I10 Essential (primary) hypertension Jamaal Garcia D.O. 10/12/2019 Z79.4 long term care pharmacist (current) use of insulin Jamaal Garcia D.O. 10/12/2019 N18.3 Chronic kidney disease, stage 3 (moderate) RadhaJamaal D.O. 10/12/2019 I70.234 Atherosclerosis of [place] arteries of right Radha Karolyn HintonO. leg with ulcerat 10/12/2019 J44.9 Chronic obstructive pulmonary disease, EunicehamletbarbJamaal D.O. unspecified 10/12/2019 F17.211 Nicotine dependence, cigarettes, [...] (primary) hypertension Jamaal Garcia D.O. 09/08/2019 Z79.4 long term care pharmacist (current) use of insulin Jamaal Garcia D.O. 09/08/2019 N18.3 Chronic kidney disease, stage 3 (moderate) Jamaal Garcia D.O. 09/08/2019 I70.234 Atherosclerosis of [place] arteries of right Jamaal Garcia D.O. leg [...] am - Jamaal Garcia D.O. at Main Fbbcgn0802/01/2020 - Jamaal Garcia D.O.R05 CoughComments:TOV 9:05R06.02 Shortness of bzyuosH33.83 Chills (without fever) Functional Status Description No Information Available Mental Status Description No Information Available Referrals Refer to Dr Reason for Referral Status Appt Date Winifred Ahumada MD Chronic lung disease with poor follow up. Closed Recent hospitalization with CTA with hilar lymphadenopathy. Consider follow up options. Consult and Treat [facility] [address], [address] [place] [address] [phone] [facility] consider alternative options for colon Closed 2019 cancer screening without sedation. + fit test. Consult and Treat [address] [place] [address] [phone]
--- OUTSIDE RECORDS SUMMARY | 2020-02-05 20:45 | XMS REPORT | Continuity of Care Document ---
:1965 External Reference #:[id number] Author Name Winifred Ahumada MD (transmitted by agent of provider Cuca Luther) Address [address], [address] [place] [id number] Care Team Providers Name Role Phone Jamaal Garcia DO - Family Care Team Information Screen Maker Medicine Problems Active Problems Provider Date Old myocardial infarction Tomas Grimaldo DO [facility] Onset: 02/18/2017 Atherosclerosis of [place] arteries of Kingsley Shaw MD, FACC, Onset: right leg with ulceration of heel and FSCAI midfoot Atherosclerosis of [place] arteries of Kingsley Shaw MD, FACC, Onset: left leg with ulceration of other part FSCAI of foot Chronic obstructive lung disease Winifred Ahumada MD Onset: 05/19/2017 Encounter for screening for malignant Winifred Ahumada MD Onset: 05/19/2017 neoplasm of respiratory organs Nicotine dependence, cigarettes, with Winifred Ahumada MD Onset: 05/19/2017 other nicotine-induced disorders Chronic diastolic heart failure Kingsley Shaw MD, FACC, Onset: 07/01/2017 FSCAI Atherosclerosis of [place] arteries of Kingsley Shaw MD, FACC, Onset: 04/2017 right leg with ulceration of other FSCAI part of foot Chest pain MADDIE Schulz Onset: 05/26/2018 Gastroesophageal reflux disease MADDIE Schulz Onset: 05/26/2018 Type 2 diabetes mellitus MADDIE Schulz Onset: 05/26/2018 Long-term current use of insulin MADIDE Schulz Onset: 05/26/2018 Hyperlipidemia MADDIE Schulz Onset: 05/26/2018 Atherosclerosis of arteries of the Femi Degroot M.D. Onset: 06/28/2019 extremities Intermittent claudication due to Femi Degroot M.D. Onset: 06/28/2019 atherosclerosis of [place] artery of limb Social History Type Date [...] 1 tab every 12 14tabs J44.1 Winifred Zita, 01/23/2020 100mg hours MD Tablets Prednisone 1 tab for 2 21units J44.1 Winifred Zita, 01/23/2020 10mg (48) TBPK weeks, 1/2 tab [...] Inj, Regadenoson, 0.1 MG Tomas Grimaldo, DO [facility] 08/30/2019 Injection Technetium TC 99M Tomas Grimaldo, DO [facility] 08/30/2019 Tetrofosmin, Per Unit Dose Up To 40 Millicuries Injection Technetium TC 99M Tomas Grimaldo, DO [facility] 08/30/2019 Tetrofosmin, Per Unit Dose Up To 40 Millicuries Injection Inj, Regadenoson, 0.1 MG Tomas Grimaldo, DO [facility] 04/25/2018 Injection Technetium TC 99M Tomas Grimaldo, DO [facility] 04/25/2018 Tetrofosmin, Per Unit Dose Up To 40 Millicuries Injection Inj, Regadenoson, 0.1 MG Tomas Grimaldo, DO [facility] 03/31/2017 Injection Technetium TC 99M Tomas Grimaldo, DO [facility] 03/31/2017 Tetrofosmin, Per Unit Dose [...] Result H/L Range Note Laboratory test 12/07/2019 [facility] Free T4 1.06 ng/dL Normal 0.61-1.12 finding 101 DATES [facility] ([place] [address] Thyroxine [phone] ) TSH (Thyroid Stim Horm) 0.69 mcIU/mL Normal 0.34-5.60 T3 Total 137 ng/dL Normal 87-178 Comp Metabolic 12/07/2019 [facility] Sodium 139 mmol/L Normal 135-145 Panel [address] [place] [address] [phone] Potassium 4.5 mmol/L Normal 3.5-5.0 Chloride 103 [...] Egfr 43.6 >60 1 CBC Auto 12/07/2019 [facility] White Blood 11.1 10^3/uL High 3.5-10.[address] Count [place], [place] [id number] [phone] Red Blood Count 4.01 10^6/uL Normal 3.70-4.87 [...] dialysis) Procedures Date Code Description Status 12/29/2019 51476 Myocardial Perfusion Imaging Tomographic (Spect) Completed Multiple Studies 12/11/2019 06630 EKG, Interpretation Only Completed 12/11/2019 17391 Treadmill Interp/Report Only Completed 12/11/2019 91304 Stress Test Supervsn W/Out I/R Completed 12/05/2019 86711 EKG Tracing & Interpretation Completed 11/25/2019 02967 EKG, Interpretation Only Completed 11/24/2019 23950 EKG, Interpretation Only Completed 11/23/2019 08614 EKG, Interpretation Only Completed 11/21/2019 30341 EKG Tracing & Interpretation Completed 10/29/2019 10209 ECHO Transthorasic Realtime 2D W Doppler & Color Flow Completed Hosp 10/28/2019 62045 EKG, Interpretation Only Completed 08/30/2019 24309 Stress Test Completed 08/30/2019 92683 Myocardial Perfusion Imaging Tomographic (Spect) Completed Multiple Studies 08/29/2019 49989 ECHO Transthoracic, Real-Time 2D With Doppler And Color Completed Flow 08/29/2019 68589 ECHO Transthoracic, Real-Time 2D With Doppler And Color Completed Flow 10/13/2013 78705224 Mammogram Completed Medical Devices Description No Information Available Encounters Type Date Location Provider Dx Diagnosis Office Visit 01/23/2020 Pulmonology And Winifred Ahumada, R06.02 Shortness of 9:15a [facility] rachell Casillas J44.1 Chronic obstructive pulmonary disease w (acute) exacerbation J01.90 Acute sinusitis, unspecified R59.0 Localized enlarged lymph nodes Office Visit 12/22/2019 [facility] Trinity Puentes, R07.9 Chest pain, 10:36a tania Gregory M.D. unspecified Hospitalists E11.40 Type 2 diabetes mellitus with diabetic neuropathy, unsp M54.9 Dorsalgia, unspecified I10 Essential (primary) hypertension Office Visit 12/21/2019 10:36a [facility] Sinai R07.9 Chest pain, Assoc,pc Nichelle Garcia unspecified Hospitalists E11.9 Type 2 diabetes mellitus without complications I11.0 Hypertensive heart disease with heart failure I50.20 Unspecified systolic (congestive) heart failure Office Visit 12/11/2019 10:19a [facility] Jeison R07.9 Chest pain, Assoc,pc MADDIE Fuentes unspecified Hospitalists I11.0 Hypertensive heart disease with heart failure I50.20 Unspecified systolic (congestive) heart failure E11.40 Type 2 diabetes mellitus with diabetic neuropathy, unsp Z79.4 long-term (current) use of insulin Office Visit 12/10/2019 10:18a [facility] Jeison R07.9 Chest pain, Assoc,pc Alfredo, [place] unspecified Hospitalists E11.40 Type 2 diabetes mellitus with diabetic neuropathy, unsp I11.0 Hypertensive heart disease with heart failure I50.20 Unspecified systolic (congestive) heart failure J44.9 Chronic obstructive pulmonary disease, unspecified Z79.4 long-term (current) use of insulin Office Visit 12/05/2019 8:00a [facility] Tomas S. I50.9 Heart failure, Of Upsetter Helper Grimaldo, DO unspecified FACC I25.119 Athscl heart disease of [place] cor art w unsp ang pctrs E11.65 [...] I25.5 Ischemic cardiomyopathy Office Visit 11/26/2019 11:54a [facility] Tomas S. I50.9 Heart failure, Of Upsetter Helper Grimaldo, DO unspecified FACC I20.0 Unstable angina Office Visit 11/26/2019 10:00a [facility] Nicky Eleanor, I11.0 Hypertensive heart Assoc,pc GEOPHYSICAL COMPUTER disease with heart Hospitalists failure I50.23 Acute on chronic systolic (congestive) heart failure J96.01 Acute respiratory failure with hypoxia I20.0 Unstable angina K21.9 Gastro-esophageal reflux disease without esophagitis E11.9 Type 2 diabetes mellitus without complications Office Visit 11/25/2019 [facility] Nicky Eleanor, E11.9 Type 2 diabetes 9:59a Assoc,pc GEOPHYSICAL COMPUTER mellitus without Hospitalists complications J44.9 Chronic obstructive pulmonary disease, unspecified K21.9 Gastro-esophageal reflux disease without esophagitis Office Visit 11/24/2019 4:40p [facility] Tomas SWilfredo I50.9 Heart failure, Of [facility] Dillan, DO unspecified FACC I20.0 Unstable angina Office Visit 11/24/2019 9:58a [facility] Nicky Eleanor, I11.0 Hypertensive heart Assoc,pc GEOPHYSICAL COMPUTER disease with heart Hospitalists failure E11.9 Type 2 diabetes mellitus without complications J44.9 Chronic obstructive pulmonary disease, unspecified K21.9 Gastro-esophageal reflux disease without esophagitis Office Visit 11/23/2019 [facility] Joi I11.0 Hypertensive 9:58a Assoc,pc MADDIE Pop heart disease Hospitalists with heart failure I50.20 Unspecified systolic (congestive) heart failure R07.9 Chest pain, unspecified E11.9 Type 2 diabetes mellitus without complications J44.9 Chronic obstructive pulmonary disease, unspecified Office Visit 11/23/2019 3:13p [facility] Tomas SWilfredo I50.9 Heart failure, Of [facility] Dillan, DO unspecified FACC I20.0 Unstable angina Office Visit 11/21/2019 8:00a [facility] Tomas Navarrete I25.119 Athscl heart Of [facility] Dillan, DO disease of FACC [place] cor art w unsp ang pctrs E11.65 Type 2 diabetes mellitus with hyperglycemia 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 unspecified Hospitalists E05.90 Thyrotoxicosis, unsp without thyrotoxic crisis or storm I50.9 Heart failure, unspecified J44.9 Chronic obstructive pulmonary disease, unspecified E11.9 Type 2 diabetes mellitus without complications R60.0 Localized edema Z95.1 Presence of aortocoronary bypass graft Office Visit 10/29/2019 8:55a [facility] Katerina R07.9 Chest pain, Assoc,pc MD Nii unspecified Hospitalists R79.89 Other specified abnormal findings of blood chemistry I50.9 Heart failure, unspecified E11.9 Type 2 diabetes mellitus without complications J44.9 Chronic obstructive pulmonary disease, unspecified Z95.1 Presence of aortocoronary bypass graft Office Visit 10/28/2019 3:19p [facility] Nehemiah Jaeger R07.9 Chest pain, Of Sonja Hirsch M.D., unspecified FACC, FASNC R79.89 Other specified abnormal findings of blood chemistry I25.10 Athscl heart disease of [place] coronary artery w/o ang pctrs Z95.1 Presence of aortocoronary bypass graft Office Visit 10/28/2019 [facility] Trinity Puentes, R07.9 Chest pain, 8:54a Assoc,tania Steward unspecified Hospitalists I21.4 Non-St elevation (Nstemi) myocardial infarction E03.9 Hypothyroidism, unspecified I50.9 Heart failure, unspecified E11.9 Type 2 diabetes mellitus without complications Office Visit 09/05/2019 10:20a [facility] Tomas S. I50.40 Unsp combined Of [...] MD 12/29/2019 I25.119 Atherosclerotic heart disease of Tomas Grimaldo DO [facility] [place] coronary artery with unspecified angina pectoris 12/22/2019 [...] R94.31 Abnormal electrocardiogram [ECG] Tomas Grimaldo DO [facility] [EKG] 12/11/2019 R07.9 Chest pain, unspecified MADDIE Schulz 12/11/2019 R07.9 Chest pain, unspecified Dao Dumont M.D., [facility], [facility] 12/11/2019 I11.0 Hypertensive heart disease with heart MADDIE Schulz failure 12/11/2019 I50.20 Unspecified systolic (congestive) MADDIE Schulz heart failure 12/11/2019 E11.40 Type 2 diabetes mellitus with MADDIE Schulz diabetic neuropathy, unspecified 12/11/2019 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 MADDIE Schulz 12/10/2019 R07.9 Chest pain, unspecified MADDIE Schulz 12/10/2019 E11.40 Type 2 diabetes mellitus with MADDIE Schulz diabetic neuropathy, unspecified 12/10/2019 I11.0 Hypertensive heart disease with heart MADDIE Schulz failure 12/10/2019 I50.20 Unspecified systolic (congestive) MADDIE Schulz heart failure 12/10/2019 J44.9 Chronic obstructive pulmonary MADDIE Schulz disease, unspecified 12/10/2019 Z79.4 long-term (current) use of insulin MADDIE Schulz 12/05/2019 I50.9 Heart failure, unspecified Tomas Grimaldo, DO FACC 12/05/2019 I25.119 Atherosclerotic heart disease of Tomas Grimaldo, DO FACC [place] coronary artery with unspecified angina pectoris 12/05/2019 [...] Hypertensive heart disease with heart Nicky Eleanor, GEOPHYSICAL COMPUTER failure 11/26/2019 I50.23 Acute on chronic systolic Nicky Eleanor, GEOPHYSICAL COMPUTER (congestive) heart failure 11/26/2019 I50.9 Heart failure, unspecified Tomas Grimaldo, DO FACC 11/26/2019 J96.01 Acute respiratory failure with Nicky Eleanor, GEOPHYSICAL COMPUTER hypoxia 11/26/2019 I20.0 Unstable angina Nicky Eleanor, GEOPHYSICAL COMPUTER 11/26/2019 I20.0 Unstable angina Tomas Rosalba Grimaldo, DO FACC 11/26/2019 K21.9 Gastro-esophageal reflux disease Nicky Eleanor, GEOPHYSICAL COMPUTER without esophagitis 11/26/2019 E11.9 Type 2 diabetes mellitus without Nicky Eleanor, GEOPHYSICAL COMPUTER complications 11/25/2019 R94.31 Abnormal electrocardiogram [ECG] Tomas Grimaldo, DO FACC [EKG] 11/25/2019 E11.9 Type 2 diabetes mellitus without Nicky Eleanor, GEOPHYSICAL COMPUTER complications 11/25/2019 J44.9 Chronic obstructive pulmonary Nicky Eleanor, GEOPHYSICAL COMPUTER disease, unspecified 11/25/2019 K21.9 Gastro-esophageal reflux disease Nicky Eleanor, GEOPHYSICAL COMPUTER without esophagitis 11/24/2019 I45.10 Unspecified right bundle-branch block Tomas Grimaldo, DO FACC 11/24/2019 I11.0 Hypertensive heart disease with heart Nicky Eleanor, GEOPHYSICAL COMPUTER failure 11/24/2019 I50.9 Heart failure, unspecified Tomas Grimaldo, DO FACC 11/24/2019 E11.9 Type 2 diabetes mellitus without Nicky Eleanor, GEOPHYSICAL COMPUTER complications 11/24/2019 I20.0 Unstable angina Tomas Grimaldo, DO FACC 11/24/2019 J44.9 Chronic obstructive pulmonary Nicky Eleanor, GEOPHYSICAL COMPUTER disease, unspecified 11/24/2019 K21.9 Gastro-esophageal reflux disease Nicky Eleanor, GEOPHYSICAL COMPUTER without esophagitis 11/23/2019 I45.10 Unspecified right bundle-branch block Tomas Grimaldo, DO FACC 11/23/2019 I11.0 Hypertensive heart disease with heart Joi Pop, PA failure 11/23/2019 I50.9 Heart failure, unspecified Tomas Grimaldo, DO FAC 11/23/2019 I50.20 Unspecified systolic (congestive) MADDIE Owen heart failure 11/23/2019 I20.0 Unstable angina Tomas Grimaldo, DO FAC 11/23/2019 R07.9 Chest pain, unspecified MADDIE Owen 11/23/2019 E11.9 Type 2 diabetes mellitus without MADDIE Owen complications 11/23/2019 J44.9 Chronic obstructive pulmonary MADDIE Owen disease, unspecified 11/21/2019 I25.119 Atherosclerotic heart disease of Tomas Grimaldo, DO [facility] [place] coronary artery with unspecified angina pectoris 11/21/2019 E11.65 Type 2 diabetes mellitus with Tomas Grimaldo, DO [facility] hyperglycemia 11/21/2019 E05.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 Tomas Grimaldo, DO [facility] multinodular goiter without thyrotoxic crisis or storm 11/21/2019 I50.9 Heart failure, unspecified Tomas Grimaldo, DO [facility] 11/21/2019 Z95.1 Presence of aortocoronary bypass Tomas Grimaldo, DO [facility] graft 11/21/2019 I10 Essential (primary) hypertension Tomas Grimaldo, DO [facility] 11/21/2019 E78.5 Hyperlipidemia, unspecified Tomas Grimaldo, DO [facility] 11/02/2019 E11.65 Type 2 diabetes mellitus with Hector Ramírez MD hyperglycemia 11/02/2019 E05.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 Hector Ramírez MD multinodular goiter without thyrotoxic crisis or storm 11/02/2019 Z79.4 long-term (current) use of insulin Hector Ramírez MD 10/30/2019 R07.9 Chest pain, unspecified Court Jimmy, D.O. 10/30/2019 E05.90 Thyrotoxicosis, unspecified without Court Jimmy, D.O. thyrotoxic crisis or storm 10/30/2019 I50.9 Heart failure, unspecified Court Jimmy, D.O. 10/30/2019 [address]44[address] Jimmy, D.O. disease, unspecified 10/30/2019 E11.9 Type [address] Jimmy, D.O. complications 10/30/[address] Marquez D.O. 10/30/2019 Z95.1 Presence of aortocoronary bypass Court Marquez D.O. graft 10/29/2019 R07.9 Chest pain, unspecified Nehemiah Hirsch M.D., [facility], [facility]ASCA 10/29/2019 R07.9 Chest pain, unspecified Katerina Bales [...] R07.9 Chest pain, unspecified Nehemiah Hirsch M.D., [facility], [facility] 10/28/2019 R79.89 Other specified abnormal findings of Nehemiah Hirsch M.D., [facility], blood chemistry FASCA 10/28/2019 I25.10 Atherosclerotic heart disease of Nehemiah Hirsch M.D., [facility], [place] coronary artery without angina FASCA pectoris 10/28/2019 Z95.1 Presence of aortocoronary bypass Nehemiah Hirsch M.D., [facility], graft [facility]AS[facility] 10/28/2019 R07.9 Chest pain, unspecified Trinity Puentes M.D. 10/28/2019 R94.31 Abnormal electrocardiogram [ECG] Nehemiah Hirsch M.D., [facility], [EKG] [facility]AS[facility] 10/28/2019 I21.4 Non-St elevation (Nstemi) myocardial Trinity Puentes M.D. infarction 10/28/2019 E03.9 Hypothyroidism, unspecified Trinity Puentes M.D. 10/28/2019 I50.9 Heart failure, unspecified Trinity Puentes M.D. 10/28/2019 E11.9 Type 2 diabetes mellitus without Trinity Puentes M.D. complications 09/05/2019 I50.40 Unspecified combined systolic Tomas SWilfredo Dlilan, DO FAC (congestive) and diastolic (congestive) heart failure 09/05/2019 E11.69 Type 2 diabetes mellitus with other Tomas Grimaldo, DO FAC specified complication 09/05/2019 I73.9 Peripheral vascular disease, Tomas Grimaldo, DO FACC unspecified 09/05/2019 I10 Essential (primary) hypertension Tomas SWilfredo Grimaldo, DO FACC 09/05/2019 E78.5 Hyperlipidemia, unspecified Tomas SWilfredo Grimaldo, DO FACC 09/05/2019 F17.201 Nicotine dependence, unspecified, in Tomas Grimaldo, DO FAC remission 09/05/2019 I45.19 Other right bundle-branch block Tomasnicole Sernano, DO FAC 09/05/2019 I63.9 Cerebral infarction, unspecified Tomasnicole Sernano, DO FACC 09/05/2019 N18.9 Chronic kidney disease, unspecified Tomas SWilfredo Grimaldo, DO FAC 09/05/2019 Z95.2 Presence of prosthetic heart valve Tomas SWilfredo Grimaldo, DO FACC 09/05/2019 J44.9 Chronic obstructive pulmonary Tomas SWilfredo Grimaldo, DO FAC disease, unspecified 08/30/2019 R07.9 Chest pain, unspecified Tomas MendozaWilfredo Grimaldo, DO FACC 08/29/2019 I95.9 Hypotension, unspecified Tomas SWilfredo Grimaldo, DO FACC 08/29/2019 I95.9 Hypotension, unspecified Ica ECHO Schedule Plan of Treatment Future Appointment(s):02/13/2020 9:15 am - Winifred Ahumada MD at [facility]02/13/2020 11:00 am - Hector Ramírez MD at [facility]03/05/2020 10:20 am - Tomas Grimaldo DO [facility] at [facility]01/23/2020 - Winifred Ahumada, MDR06.02 Shortness of breathFollow up:3 slbxwA01.1 Chronic obstructive pulmonary disease with (acute) exacerbationNew Medication:Doxycycline Hyclate 100 mg - 1 tab every 12 hoursPrednisone 10 mg (48) - 1 tab for 2 weeks, 1/2 tab for 1 weekJ01.90 Acute sinusitis, [id number] Localized enlarged lymph nodes Functional Status Description No Information Available Mental Status Description No Information Available Referrals Refer to Dr Reason for Referral Status Appt Date Uri Wallace DPM diabetic neuropathy Sent [address] [place] [address] [phone]
--- OUTSIDE RECORDS SUMMARY | 2020-02-05 20:45 | XMS REPORT | Continuity of Care Document ---
:1965 External Reference #:[id number] Author Name Jamaal Garcia D.O. (transmitted by agent of provider Kenyatta Brown) Address [address] [place] [address] Care Team Providers Name Role Phone HCP/LW on file Care Team Information Luggage Attendant Unavailable [facility] - Spec/Tech, Care Team Information Luggage Attendant [phone] Cardiovascular Winifred Ahumada MD - Pulmonary Care Team Information Luggage Attendant [phone] Disease Femi Degroot MD - Vascular & Care Team Information Luggage Attendant Interventional Radiology [facility] - Wound Care Care Team Information Luggage Attendant Pot Press Operator Orthotics & Care Team Information Luggage Attendant [phone] Problems Active Problems Provider Date Type II [...] Alerts Active Allergies Reaction Severity Comments Date Zosergio hives 01/18/2017 Levaquin vomiting 07/08/2017 Metformin Diarrhea Moderate 09/08/2019 Medications Active Medications SIG Qnty Indications Ordering Date Provider Prednisone 1 tab po daily for 2 Zita, 01/23/2020 10mg weeks then 1/2 tab MD Winifred Tablets daily for week Doxycycline 1 tab po every 12 hrs. Zita, 01/23/2020 Hyclate x 7 days MD Winifred 100mg Tablets Baclofen 1 by mouth three times 30tabs M54.31 [facility], 01/18/2020 5mg a day as needed muscle Clay Hinton Tablets spasm Oxycodone-Acetamin 1 every 4 hours as 42tabs M54.31 [facility], 01/18/2020 ophen needed severe pain [place] 5-325mg Tablets Jardiance one tab po daily Hector Ramírez, 01/04/2020 10mg MD Tablets Famotidine take 1 tablet by mouth 60tabs [facility], 12/18/2019 40mg 2 times per day for [place] Tablets gastroesophageal reflux disease Novolog Flexpen as directed 3 x/day E11.69 Unknown 11/26/2019 before meals and at hs 100Unit/ML Solution Pen-Inject Levemir 45 units in am and 45 E11.69 Unknown 11/26/2019 units in evening 100Unit/ML Solution Carvedilol take one tablet by Unknown 11/26/2019 12.5mg mouth twice a day Tablets Furosemide 2 (80 mg) tablets by Unknown 11/26/2019 40mg mouth every day Tablets Sucralfate Take 1 Tablet By [...] Ellipta Inhale One puff By 30units J44.9 [facility], 05/14/2019 Mouth Every Day [place] 62.5mcg/Inh Aerosol Mineral Oil place 4-drops in ears 30units L20.9 [facility], 04/13/2019 Oil every week for [place] excessive cerumen and dry ear canals as needed Onetouch Delica use with diabetic 100units [facility], 01/30/2019 Lancets Fine 30G supplies five times a [place] day as directed 30G Misc BD Uf Mini Pen Use Up To 6 Times 400units [facility], 01/27/2019 Needle [id number] Daily as Directed For [place] Insulin Administration Onetouch Verio use 1-4 times daily as 1units [facility], 01/27/2019 directed [place] w/Device Kit Onetouch Verio test 1-4 daily as 200units E11.65 [facility], 01/27/2019 directed [place] Strips Aspirin Children[facility] 1 by mouth daily Unknown 11/23/2018 81mg Pantoprazole Take One Tablet By 60tabs [facility], 05/26/2018 Sodium Mouth Twice A Day [place] 40mg Tablets DR Tylenol give 2 tablets by Unknown 05/26/2018 325mg mouth [id number] as Tablets needed for pain / otc Atorvastatin 1 by mouth every Unknown 08/20/2017 Calcium evening 80mg Tablets Docusate Sodium 1 cap by mouth twice a Unknown 08/20/2017 day as needed for 100mg Capsules constipation BD Pen or appropriate needles 400units [facility], 05/20/2017 Needle/Mini/Ultraf for lantus/Novolog [place] ine/31G X 3/16" pen. use up to 6/day, as directed, for 31G X 5 mm Misc insulin administration Lancets use as directed for 200units E11.65 [facility], 05/20/2017 [place] diabetic testing [place] Safety Misc Gabapentin 1 by three times a 90caps [facility], 300mg day. Jamaal, D.O. Capsules History Medications Isosorbide 1 tablet by mouth Unknown 11/26/2019 - Mononitrate ER daily 11/26/2019 30mg Tablets ER 24HR Levemir 80 units E11.69 Unknown 10/30/2019 - 100Unit/ML subcutaneous daily 11/26/2019 Solution Neomycin/Polymyxin/D 1 drop 4 times a day 5ml Radha Jamaal, 10/20/2019 - examethasone left eye for 5 days D.O. 10/20/2019 [id number] Suspension Tobradex 1 left eye three 5ml H10.89 Jamaal Garcia, 10/20/2019 - 0.3-0.1% times a day for 5 D.O. 10/25/2019 Suspension days or 1 day after symptoms resolve. Novolog Flexpen 20 units before 45ml E11.69 Radha Jamaal, 10/12/2019 - dinner D.O. 11/26/2019 100Unit/ML Solution Pen-Inject Novolog Mix 70/30 30u in in the 45ml E11.69 Jamaal Garcia, 09/08/2019 - Prefilled Flexpen morning D.O. 11/12/2019 (70-30)100Unit/ML Supn Immunizations CPT Code Status Date Vaccine Lot # [id number] Given 07/19/2019 Influenza Virus Vaccine, Quadrivalent, Split, [id number] Preservative Free [id number] Given 09/01/2018 Influenza Virus Vaccine, Quadrivalent, Split, [id number] Preservative Free 50215 Given 07/08/2017 Influenza Virus Vaccine, Quadrivalent, Split, [id number] Preservative Free 16606 Given 01/18/2017 Adacel or Boostrix, TDaP [id number] Given 11/30/2016 Influenza Virus Vaccine, Quadrivalent, Split, [...] Test Result H/L Range Note Cytology 01/25/2020 [facility] Cytology SEE RESULT 1 Non-Food And Beverage Lead [phone] Nongyn BELOW PDFReport SEE IMAGE CBC Auto Diff 01/23/2020 [facility] White Blood 10.6 10^3/uL Normal 3.5-10.8 [phone] Count Red Blood Count 4.41 10^6/uL Normal [...] Blood Cells % 0.0 Laboratory test 01/23/2020 [facility] Lactic Acid 2.0 mmol/L Normal 0.5-2.0 2 finding [phone] Comp Metabolic 01/23/2020 [facility] Sodium 134 mmol/L Low 135-145 Panel [phone] Potassium 3.9 mmol/L Normal 3.5-5.0 Chloride 100 [...] Egfr 42.6 >60 3 Laboratory test 01/23/2020 [facility] Troponin-I (TnI) 0.02 ng/mL < 0.03 4 finding [phone] B-Type Natriuretic Peptide BNP 180 pg/mL High <=100 Laboratory test 12/21/2019 [facility] Surgical SEE RESULT 5 finding [phone] Pathology BELOW Order Laboratory test 12/21/2019 [facility] Troponin-I 0.07 ng/mL Critical high <0.0 6 finding [phone] (TnI) 3 CBC Auto Diff 12/21/2019 [facility] White Blood 10.3 Normal 3.5- [phone] Count 10^3/uL 10.8 Red Blood Count 4.17 [...] Cells % 0.0 Comp Metabolic Panel 12/21/2019 [facility] Sodium 139 mmol/L Normal 135-145 [phone] Potassium 3.8 mmol/L Normal 3.5-5.0 Chloride 105 [...] 44.0 >60 7 Laboratory test finding 12/21/2019 [facility] Lipase 17 U/L Normal 11.0-82.0 [phone] C Reactive Protein 8.07 mg/L High <8.01 Lactic Acid 1.9 mmol/L Normal 0.5-2.0 8 Troponin-I (TnI) 0.07 ng/mL Critical high <0.03 9 TSH (Thyroid Stim Horm) 0.42 mcIU/mL Normal 0.34-5.60 Laboratory test 12/10/2019 [facility] Magnesium 2.5 mg/dL Normal 1.9- 2.7 finding [phone] Lipase 22 U/L Normal 11.0-82.0 B-Type Natriuretic Peptide BNP 226 pg/mL High <=100 TSH (Thyroid Stim Horm) 1.38 mcIU/mL Normal 0.34-5.60 Comp Metabolic Panel 12/10/2019 [facility] Sodium 138 mmol/L Normal 135-145 [phone] Potassium 4.2 mmol/L Normal 3.5-5.0 Chloride 102 [...] Egfr 38.8 >60 10 Laboratory test 12/10/2019 [facility] Troponin-I (TnI) 0.01 ng/mL < 0.03 11 finding [phone] CBC Auto Diff 12/10/2019 [facility] White Blood 11.7 High 3.5-10.8 [phone] Count 10^3/uL Red Blood Count 4.50 10^6/uL [...] Hemoglobin A1c 8.1 finding Laboratory test 11/23/2019 [facility] Troponin-I (TnI) 0.02 ng/mL < 0.03 12 finding [phone] Inr/Protime 11/23/2019 [facility] Inr 0.97 Normal 0.82-1 13 [phone] .09 CBC Auto Diff 11/23/2019 [facility] White Blood Count 14.7 High 3.5- 10 [phone] 10^3/uL .8 Red Blood Count 3.97 10^6/uL [...] Blood Cells % 0.0 Laboratory test 11/23/2019 [facility] Troponin-I 0.02 ng/mL <0.03 14 finding [phone] (TnI) Comp Metabolic 11/23/2019 [facility] Sodium 140 mmol/L Normal 135- 145 Panel [phone] Potassium 4.5 mmol/L Normal 3.5-5.0 Chloride 107 [...] Egfr 61.7 >60 15 Laboratory test 11/23/2019 [facility] B-Type Natriuretic 443 pg/mL High <=100 finding [phone] Peptide BNP Magnesium 2.1 mg/dL Normal 1.9-2.7 Laboratory test 10/28/2019 [facility] Troponin-I 0.11 Critical <0.03 16 finding [phone] (TnI) ng/mL high Urine Culture And 10/27/2019 [facility] Urine Culture SEE 17 Sensitivities [phone] RESULT BELOW Urinalysis 10/27/2019 [facility] Urine Color Yellow Profile [phone] Urine Appearance Clear Urine Specific [place] 1.013 Normal 1.010-1.030 Urine pH 6.0 Normal [...] Cell Present Abnormal Absent Laboratory test 10/27/2019 [facility] Magnesium 2.2 mg/dL Normal 1.9- 2.7 finding [phone] Lipase 18 U/L Normal 11.0-82.0 Troponin-I (TnI) 0.04 ng/mL Critical high <0.03 18 C Reactive Protein 18.58 mg/L High <8.01 TSH (Thyroid Stim Horm) 0.09 mcIU/mL Low 0.34-5.60 B-Type Natriuretic Peptide BNP 120 pg/mL High <=100 T3 Free 4.50 pg/mL High 2.5-3.9 Free T4 (Free Thyroxine) 1.41 ng/dL High 0.61-1.12 Comp Metabolic Panel 10/27/2019 [facility] Sodium 133 mmol/L Low 135- 145 [phone] Potassium 3.9 mmol/L Normal 3.5-5.0 Chloride 98 [...] 40.2 >60 19 CBC Auto Diff 10/27/2019 [facility] White Blood 10.2 10^3/uL Normal 3.5-10.8 [phone] Count Red Blood Count 4.56 10^6/uL Normal [...] Blood Cells % 0.1 Laboratory test 09/15/2019 [facility] Lactic Acid 1.5 mmol/L Normal 0.5-2.0 20 finding [phone] Comp Metabolic 09/15/2019 [facility] Sodium 135 mmol/L Normal 135- 145 Panel [phone] Potassium 4.2 mmol/L Normal 3.5-5.0 Chloride 102 [...] 51.5 >60 21 Laboratory test finding 09/15/2019 [facility] Lipase 12 U/L Normal 11.0-82.0 [phone] C Reactive Protein 22.47 mg/L High <8.01 CBC Auto Diff 09/15/2019 [facility] White Blood 11.5 10^3/uL High 3.5 -10.8 [phone] Count Red Blood Count 4.67 10^6/uL Normal [...] Hemoglobin A1c 11.8 finding Urine Microalbumin 09/08/2019 [facility] Ur Microalbumin 26.1 mg/L Random [phone] (mg/L) Urine Creatinine 26.09 mg/dL Urine Microalbumin/Creatinine 100.0 High <31 Laboratory 08/20/2019 [facility] Point of Care 432 Critical 70-100 22 test finding [phone] Glucose mg/dL high Laboratory 08/20/2019 [facility] Glucose 495 High 70-100 test finding [phone] Confirmatory mg/dL Laboratory 08/20/2019 [facility] Point of Care > 444 Critical 70-100 23 test finding [phone] Glucose mg/dL high Laboratory 08/20/2019 [facility] Troponin-I 0.02 <0.04 24 test finding [phone] (TnI) ng/mL CBC Auto Diff 08/20/2019 [facility] White Blood 7.4 Normal 3.5-10.8 [phone] Count 10^3/uL Red Blood Count 4.74 10^6/uL [...] Red Blood Cells % 0.1 Inr/Protime 08/20/2019 [facility] Inr 0.88 Normal 0.82-1.09 25 [phone] Comp Metabolic Panel 08/20/2019 [facility] Sodium 130 mmol/L Low 135- 145 [phone] Potassium 4.8 mmol/L Normal 3.5-5.0 Chloride 96 [...] Critical high 70-100 27 Laboratory test 08/20/2019 [facility] Troponin-I (TnI) 0.03 ng/mL < 0.04 28 finding [phone] Laboratory test 08/20/2019 [facility] Point of Care 351 mg/dL High 70 -100 29 finding [phone] Glucose 1 SEE RESULT BELOW Name: GABRIEL CHAVEZ : [address]: Jamaal Garcia DO Acct: [id number] Unit: [id number] AGE: 54 Location: Re01/25/20 SEX: F Status: REG REF SPEC: [id number] KYRA: 01/25/20-[address]: Jamaal Garcia DO REQ: [id number] RECD: 01/25/20-1499 STATUS: MOIZ GRIJALVA DR: Femi Degroot MD _ ORDERED: FNA-IMG GUID BX, CYTO ADEQ-1ST P FINAL DIAGNOSIS Thyroid, left, Ultrasound guided, fine needle aspiration: -- Benign thyroid nodule, involutional type ([place] class II). The specimen demonstrates abundant watery [...] CONTINUED ON NEXT PAGE DEPARTMENT OF PATHOLOGY, [address] [place] [address] Mg Ruff M.D. Director [place] # [id number] CLINICAL HISTORY Left thyroid nodule, 5.4x 4.6x 2.3cm IMMEDIATE INTERPRETATION Pass 1, and 2-adequate. GROSS DESCRIPTION 3- alcohol fixed slide(s) 2 - passes Signed by and Reported on: Mg Ruff MD 01/11 1237 END OF REPORT DEPARTMENT OF PATHOLOGY, [address] [place] [address] Mg Ruff M.D. Director [place] # [id number] 2 [facility] Severe Sepsis and Septic Shock Management [...] immediately to secondary confirmatory testing. Using the O-RID DxI 800 Access Immunoassay systems, the 99th percentile upper reference limit was demonstrated to be < 0.03 ng/mL. 5 SEE RESULT BELOW Name: GABRIEL CHAVEZ : [address]: Trinity Puentes MD Acct: [id number] Unit: [id number] AGE: 54 Location: [place] [address] Re12/21/19 Dis: 12/22/19 SEX: F Status: DIS Ld SPEC: [id number] KYRA: 12/21/19- [facility] DR: Vick Thompson MD REQ: [id number] RECD: 12/22/19-1306 STATUS: MOIZ GRIJALVA DR: Sinai Garcia DO [...] 1239 END OF REPORT DEPARTMENT OF PATHOLOGY, [address] [place] [address] Mg Ruff M.D. Director [facility] # [id number] 6 Result TnIDx:0.07 Called to [id number] at: 04:12 by:[id number] Read back by: [id number] Troponin-I testing on Plasma Separator Tubes (PST) has a known false positive rate of 0.20-0.40%. All positive troponins reflex immediately to secondary confirmatory testing. Using the O-RID DxI 800 Access Immunoassay systems, the 99th [...] 5 Kidney failure <15 (or dialysis) 8 [facility] Severe Sepsis and Septic Shock Management Bundle Measure requires all lactic acids initially measuring >2.0 mmol/L be repeated. 9 Result TnIDx:0.07 Called to [id number] at: 01:38:13 by:[id number] Read back by: [id number] Troponin-I testing on Plasma Separator Tubes (PST) has a known false positive rate of 0.20-0.40%. All positive troponins reflex immediately to secondary confirmatory testing. Using the O-RID DxI 800 Access Immunoassay systems, the 99th [...] immediately to secondary confirmatory testing. Using the [employer] DxI 800 Access Immunoassay systems, the 99th [...] (or dialysis) 16 Result TnIDx:0.11 Called to [id number] at: 02:17:43 by:[id number] Read back by: [id number] Troponin-I testing on Plasma Separator Tubes (PST) has a known false positive rate of 0.20-0.40%. All positive troponins reflex immediately to secondary confirmatory testing. Using the [employer] DxI 800 Access Immunoassay systems, the 99th percentile upper reference limit was demonstrated to be < 0.03 ng/mL. 17 SEE RESULT BELOW Name: GABRIEL CHAVEZ : [address]: Dianna Calvillo MD Acct: [id number] Unit: [id number] AGE: 54 Location: [place] [address] Re10/28/19 SEX: F Status: ADM IN SPEC: [id number] KYRA: 10/28/19-[address]: Jesse PERKINS REQ: [id number] RECD: 10/28/19 STATUS: MJ GRIJALVA DR: [facility] Jamaal Garcia DO _ SOURCE: URINE SPDESC: ORDERED: Urine Culture Procedure Result Reported Site Urine Culture Final 10/29/19- 1154 ML Organism 1 AEROCOCCUS URINAE [place] Count >100,000 (Many) CFU/ML Organism 2 NORMAL DICKSON [place] Count 1-10,000 (Few) CFU/ML Aerococcus isolates are too fastidious for routine susceptibility studies. Aerococcus are usually susceptible to penicillin, amoxicillin, piperacillin, cefipime, rifampin and vancomycin. Moderate to good activity occurs with the quinolones, tetracyclines and erythromycin. ([employer] Color [employer] and Textbook of Diagnostic Microbiology 6th Ed. 2006, p. 705-6.) * ML - Main Lab . END OF REPORT DEPARTMENT OF PATHOLOGY, [address] [place] [address] Mg Ruff M.D. Director [facility] # [id number] 18 Result TnIDx:0.04 Called to [id number] at: 23:33:09 by:[id number] Read back by: [id number] Troponin-I testing on Plasma Separator Tubes (PST) has a known false positive rate of 0.20-0.40%. All positive troponins reflex immediately to secondary confirmatory testing. Using the O[employer]RID DxI 800 Access Immunoassay systems, the 99th [...] 5 Kidney failure <15 (or dialysis) 20 [facility] Severe Sepsis and Septic Shock Management [...] 5 Kidney failure <15 (or dialysis) 22 Bag Adjuster: [id number] 23 Bag Adjuster: [id number] 24 Troponin-I testing on Plasma Separator Tubes (PST) has a known false positive rate of 0.20-0.40%. All positive troponins reflex immediately to secondary confirmatory testing. Using the O-RID DxI 800 Access Immunoassay systems, the 99th [...] dialysis) 27 Critical Result [id number] Called to [id number] at: 17:29:14 by:[id number] Read back by:[id number] 28 Troponin-I testing on Plasma Separator Tubes (PST) has a known false positive rate of 0.20-0.40%. All positive troponins reflex immediately to secondary confirmatory testing. Using the O-RID DxI 800 Access Immunoassay systems, the 99th percentile upper reference limit was demonstrated to be < 0.03 ng/mL. 29 Bag Adjuster: [id number] Procedures Date Code Description Status 01/10/2020 709646279 Diabetic Foot Exam Completed 10/10/2019 182869240 Diabetic Retinal Eye Exam Completed 10/06/2019 93381 X-Ray Elbow Three Views Completed 02/15/2019 [id number] Mammogram Completed Medical Devices Description No Information Available Encounters Type Date Location Provider Dx Diagnosis Office Visit 01/26/2020 Main Office Jamaal Garcia Z79.4 half-way ( current) 2:30p D.O. 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 F17.211 Nicotine dependence, cigarettes, in remission K21.9 Gastro-esophageal reflux disease without esophagitis I70.234 [place] [place] art of right leg w ulcer of [...] unspecified Z79.4 half-way (current) use of insulin F17.211 Nicotine dependence, cigarettes, in remission N18.3 Chronic kidney disease, stage 3 (moderate) K21.9 Gastro-esophageal reflux disease without esophagitis I70.234 [place] [place]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 mellitus with other specified complication E11.65 Type 2 diabetes mellitus with hyperglycemia Z79.4 half-way (current) use of insulin N18.3 Chronic kidney disease, stage 3 (moderate) I70.234 [place] art of right leg w ulcer of [...] kidney disease, stage 3 (moderate) I70.234 [place] art of right leg w ulcer of [...] kidney disease, stage 3 (moderate) I70.234 [place] [place] art of right leg w ulcer of [...] elbow Office Visit 09/08/2019 10:45a Main Office Sopchak, Jamaal, E11.65 Type 2 diabetes D.O. mellitus with hyperglycemia I10 Essential (primary) hypertension Z79.4 half-way (current) use of insulin N18.3 Chronic kidney disease, stage 3 (moderate) I70.234 [place]cl [place] art of right leg w ulcer of heel and midfoot J44.9 Chronic obstructive pulmonary disease, unspecified F17.211 Nicotine dependence, cigarettes, in remission E11.69 Type 2 diabetes mellitus with other specified complication I50.32 Chronic diastolic (congestive) heart failure Assessments Date Code Description Provider 01/26/2020 Z79.4 technician terminal and repeater (current) use of insulin Eunicechak, Jamaal, D.O. 01/26/2020 J44.9 Chronic obstructive pulmonary disease, Sopchak, Jamaal, D.O. unspecified 01/26/2020 E11.69 Type 2 diabetes mellitus with other specified Sopchak, Jamaal, D.O. complication 01/26/2020 M79.604 Pain in right leg Sopchak, Jamaal, D.O. 01/26/2020 M54.31 Sciatica, right side Sopchak, Jamaal, D.O. 01/26/2020 E05.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 multinodular goiter Sophamletk, Jamaal, D.O. without thyrotoxic crisis or storm 01/25/2020 Z79.4 half-way (current) use of insulin Miguel Angelk, Jamaal, D.O. 01/25/2020 J44.9 Chronic obstructive pulmonary disease, Sopchak, Jamaal, D.O. unspecified 01/25/2020 E11.69 Type 2 diabetes mellitus with other specified Sopchak, Jamaal, D.O. complication 01/25/2020 M79.604 Pain in right leg Sopchak, Jamaal, D.O. 01/25/2020 E05.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 multinodular goiter Sophamletk, Jamaal, D.O. without thyrotoxic crisis or storm 01/25/2020 F17.211 Nicotine dependence, cigarettes, in remission [place] Jamaal, D.O. 01/25/2020 K21.9 Gastro-esophageal reflux disease without Sopchak, Jamaal, D.O. esophagitis 01/25/2020 I70.234 Atherosclerosis of [place] arteries of right Sopchak, Jamaal, D.O. leg with ulceration of heel and midfoot 01/25/2020 I10 Essential (primary) hypertension Jamaal Garcia D.O. 01/18/2020 M54.31 Sciatica, right side Jamaal Garcia D.O. 01/18/2020 M54.5 Low back pain Jamaal Garcia D.O. 01/18/2020 M79.604 Pain in right leg Jamaal Garcia D.O. 01/18/2020 Z79.899 Other long-term (current) drug therapy Jamaal Garcia D.O. 01/12/2020 Z79.4 half-way (current) use of insulin Jamaal [...] Garcia D.O. esophagitis 01/12/2020 I70.234 Atherosclerosis of [place] arteries of right Jamaal Garcia D.O. leg with ulceration of heel and midfoot 01/12/2020 I10 Essential (primary) hypertension Jamaal Garcia D.O. 12/07/2019 I50.33 Acute on chronic diastolic (congestive) heart Jamaal Garcia D.O. failure 12/07/2019 E11.69 Type 2 diabetes mellitus with other specified Jamaal Garcia D.O. complication 12/07/2019 E05.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 multinodular goiter Jamaal Garcia D.O. without thyrotoxic crisis or storm 12/07/2019 E11.69 Type 2 diabetes mellitus with other specified Sopchak, Jamaal, D.O. complication 12/07/2019 J44.9 Chronic obstructive pulmonary disease, Sopchak Jamaal, D.O. unspecified 12/07/2019 Z79.4 half-way (current) use of insulin Winston Garciaon, D.O. 12/07/2019 F17.211 Nicotine dependence, cigarettes, in remission [place] Jamaal, D.O. 12/07/2019 N18.3 Chronic kidney disease, stage 3 (moderate) [place] Jamaal, D.O. 12/07/2019 K21.9 Gastro-esophageal reflux disease without Sopchak Jamaal, D.O. esophagitis 12/07/2019 I70.234 Atherosclerosis of [place] arteries of right [place] Jamaal, D.O. leg with ulcerat 12/07/2019 I10 Essential (primary) hypertension Winston Garciaon, D.O. 12/07/2019 J44.9 Chronic obstructive pulmonary disease, SophamletkWinstonon, D.O. unspecified 12/07/2019 F17.211 Nicotine dependence, cigarettes, in remission SophamletkWinstonon, D.O. 11/13/2019 E11.69 Type 2 diabetes mellitus with other specified SophamletkWinstonon, D.O. complication 11/13/2019 E11.65 Type 2 diabetes mellitus with hyperglycemia SopWinston singhon , D.O. 11/13/2019 Z79.4 half-way (current) use of insulin Winston Garciaon, D.O. 11/13/2019 N18.3 Chronic kidney disease, stage 3 (moderate) SophamletkWinstonon, D.O. 11/13/2019 I70.234 Atherosclerosis of [place] arteries of right [place] Jamaal, D.O. leg with ulcerat 11/13/2019 J44.9 Chronic obstructive pulmonary disease, SophamletkWinstonon, D.O. unspecified 11/13/2019 F17.211 Nicotine dependence, cigarettes, in remission [place] Jamaal, D.O. 11/13/2019 I50.32 Chronic diastolic (congestive) heart failure SophamletkWinstonon, D.O. 11/13/2019 I21.9 Acute myocardial infarction, unspecified Miguel AngelkWinstonon, D.O. 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 without thyrotoxic crisis or storm 10/20/2019 E11.69 Type 2 diabetes mellitus with other specified Jamaal Garcia, D.O. complication 10/20/2019 E11.65 Type 2 diabetes mellitus with hyperglycemia Jamaal Garcia D.O. 10/20/2019 I10 Essential (primary) hypertension Jamaal Garcia D.O. 10/20/2019 Z79.4 technician terminal and repeater (current) use of insulin Jamaal Garcia D.O. 10/20/2019 N18.3 Chronic kidney disease, stage 3 (moderate) Jamaal Garcia D.O. 10/20/2019 I70.234 Atherosclerosis of [place] arteries of right Jamaal Garcia D.O. leg [...] (primary) hypertension Jamaal Garcia D.O. 10/12/2019 Z79.4 technician terminal and repeater (current) use of insulin Jamaal Garcia D.O. 10/12/2019 N18.3 Chronic kidney disease, stage 3 (moderate) Jamaal Garcia D.O. 10/12/2019 I70.234 Atherosclerosis of [place] arteries of right Jamaal Garcia D.O. leg [...] (primary) hypertension Jamaal Garcia D.O. 09/08/2019 Z79.4 technician terminal and repeater (current) use of insulin Jamaal Garcia D.O. 09/08/2019 N18.3 Chronic kidney disease, stage 3 (moderate) Jamaal Garcia D.O. 09/08/2019 I70.234 Atherosclerosis of [place] arteries of right Jamaal Garcia D.O. leg [...] am - Jamaal Garcia D.O. at [facility] [id number]/26/2020 - Jamaal Garcia D.O.Z79.4 half-way (current) use of hoktqboG15.9 Chronic obstructive pulmonary disease, unspecifiedComments:TOV 15min phone callE11.69 Type 2 diabetes mellitus with other specified bsnkhsikwujkM34.604 Pain in right legM54.31 Sciatica, right sideE05.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 multinodular goiter without thyrotoxic crisis or storm Functional Status Description No Information Available Mental Status Description No Information Available Referrals Refer to Reason for Referral Status Appt Date Winifred Ahumada MD Chronic lung disease with poor follow up. Closed Recent hospitalization with CTA with hilar lymphadenopathy. Consider follow up options. Consult and Treat [facility] [address], [address] [place] [address] [phone] [facility] consider alternative options for colon Closed 2019 cancer screening without sedation. + fit test. Consult and Treat [address] [place] [address] [phone]
[2020-02-05] MEDS ORDERED: Morphine 4 MG/ML VIAL (1 ml) 4 MG/ML VIAL IV ONE (20:48)
[2020-02-05 20:52] LABS: Albumin 3.7 g/dL (3.2-5.2); Albumin/Globulin Ratio 1.2 (1-3); BUN/Creatinine Ratio 34.3 (8-20); Calcium 9.1 mg/dL (8.6-10.3); EGFR African American 47.2 (>60); Globulin 3.1 g/dL (2-4); Potassium 4.3 mmol/L (3.5-5.0); Total Bilirubin 0.5 mg/dL (0.2-1.0); Total Protein 6.8 g/dL (6.4-8.9)
[2020-02-05 20:53] LABS: Troponin I 0.02 ng/mL (<0.03)
--- NOTE | 2020-02-05 21:03 | ED ---
Progress - Progress Note Progress Note: Patient is received as a sign-out from Dr. Sadler at 2100 02/05/20 shift change pending labs and re-evaluation. CXR IMPRESSION: Venous congestion with no significant change from prior CXR. Pending official report. BNP was 194, D-dimer 203, first trop 0.02. Glucose was 423, 10 units SUBCUT ordered. 0015 - Second trop of 0.03 which is lower than her prior in Nov (0.07), patient reports CP resolved. Reviewed records including recent stress in Nov, followed by admission a week later for which pain was attributed to GI cause. Furthermore , as patient is a COVID r/o she cannot be stressed in hospital at this time. Do not believe admission would benefit her. Advised to call Dr. Vidal's office tomorrow. Patient to be discharged home with PCP followup. Re-Evaluation - Re-Evaluation First Eval Re-Evaluation Time: 23:45 Change: Improved - patient reports pain improved. 2nd trop pending Comment: patient reports pain improved. 2nd trop pending Course/Dx - Diagnoses Provider Diagnoses: Chest pain, Shortness of breath, CHF (congestive heart failure) Discharge ED - Sign-Out/Discharge Documenting (check all that apply): Patient Departure - discharge , Receiving Sign-Out Receiving patient FROM: Suresh Sadler - Discharge Plan Condition: Stable Disposition: HOME Patient Education Materials: Chest Pain (ED) Referrals: Jamaal Garcia DO [Primary Care Provider] - Additional Instructions: You were seen in the emergency department for chest pain. Your EKG (heart tracing), labs and chest x-ray did not show any cause for pain. Important that you follow up with you primary care doctor in the next 1-2 days to possibly schedule an outpatient stress test. Please return to the emergency department for continued chest pain, trouble breathing, passing out, or if you're concerned. - Billing Disposition and Condition Condition: STABLE Disposition: Home - Attestation Statements Document Initiated by Scribe: Yes Documenting Scribe: DAVID LIMA Provider For Whom Scribe is Documenting (Include Credential): MAGUI CLEANING MD Scribe Attestation: IDAVID, scribed for MAGUI CLEANING MD on 02/06/20 at 0027. Scribe Documentation Reviewed: Yes Provider Attestation: The documentation as recorded by the scribe, DAVID LIMA accurately reflects the service I personally performed and the decisions made by me, MAGUI CLEANING MD Status of Chelsie Document: Viewed
[2020-02-05] MEDS ORDERED: Insulin REGULAR(*) 1 UNITS UNIT SUBCUT ONE (21:19)
[2020-02-06 00:16] LABS: Troponin I 0.03 ng/mL (<0.03)
[2020-02-06 00:47] VITALS: BP 110/60
== END 2020-02-06 00:46 | disposition home or self-care (01) ==
LOC: ED 19:57
DX: R07.9 Chest pain, unspecified (principal); R06.02 Shortness of breath; I25.2 Old myocardial infarction; I11.0 Hypertensive heart disease with heart failure; I50.9 Heart failure, unspecified; F41.9 Anxiety disorder, unspecified; I45.10 Unspecified right bundle-branch block; F32.9 Major depressive disorder, single episode, unspecified; K21.9 Gastro-esophageal reflux disease without esophagitis; Z86.73 Personal history of transient ischemic attack (TIA), and cerebral infarction without residual deficits; Z95.5 Presence of coronary angioplasty implant and graft; Z87.891 Personal history of nicotine dependence; R94.31 Abnormal electrocardiogram [ECG] [EKG]
CPT/HCPCS: 36415; 71045; 80053; 83880; 84484; 85025; 85379; 85610; 93005; 96374; 99284; J2270

== ENCOUNTER 2020-02-21 14:23 | Observation (INO) ==
[2020-02-21] MEDS ORDERED: NS 0.9% 1000 ml BAG 1,000 ML IV ONE ×2 (15:23→17:14)
[2020-02-21 16:13] LABS: ABS Basophils 0.1 10^3/ul (0-0.2); ABS Eosinophils 0.2 10^3/ul (0-0.6); ABS Lymphocytes 0.9 10^3/ul (1.0-4.8); ABS Monocytes 0.8 10^3/ul (0-0.8); Eosinophil % 1.2 %; Hematocrit 36 % (35-47); Hemoglobin 11.9 g/dL (12.0-16.0); Lymphocyte % 6.5 %; Mean Corpuscular HGB Conc 33 g/dL (31-36); Mean Corpuscular Hemoglobin 28 pg (27-31); Mean Corpuscular Volume 84 fL (80-97); Mean Platelet Volume 8.7 fL (7.4-10.4); Nucleated Red Blood Cells % 0.1; Platelet Count 323 10^3/uL (150-450); Red Blood Count 4.26 10^6 /uL (3.70-4.87); Red Cell Distribution Width 18 % (10-15); White Blood Count 14.6 10^3/uL (3.5-10.8)
[2020-02-21 16:17] LABS: INR 0.97 (0.82-1.09)
[2020-02-21 16:30] LABS: Albumin 3.8 g/dL (3.2-5.2); Calcium 9.5 mg/dL (8.6-10.3); Magnesium 2.2 mg/dL (1.9-2.7); Potassium 3.3 mmol/L (3.5-5.0); Total Bilirubin 0.4 mg/dL (0.2-1.0)
[2020-02-21] MEDS ORDERED: Potassium Chlor 20 meq TAB.ER PO ONE (16:30)
[2020-02-21 16:36] LABS: Albumin/Globulin Ratio 1.1 (1-3); BUN/Creatinine Ratio 27.7 (8-20); EGFR African American 33.6 (>60); EGFR Non-African American 27.8 (>60); Globulin 3.5 g/dL (2-4); Total Protein 7.3 g/dL (6.4-8.9); Troponin I 0.01 ng/mL (<0.03)
[2020-02-21 17:38] LABS: T4, Total 13.25 mcg/dL (6.09-12.23)
[2020-02-21 17:44] LABS: TSH (Thyroid Stimulating Horm) 2.12 mcIU/mL (0.34-5.60)
[2020-02-21] MEDS ORDERED: Ondansetron 4 mg VIAL 2 MG/ML 2 ml VIAL IV PRN (17:54)
[2020-02-21] MEDS ORDERED: Senna TAB 8.6 mg TAB PO PRN (17:54)
[2020-02-21] MEDS ORDERED: Al Hydrox/Mg Hydrox/Simet LIQ 30 ML UDC PO PRN (17:54)
[2020-02-21] MEDS ORDERED: Albuterol 2.5mg/3 ml (0.083%) NEB.SOLN INH PRN (17:57)
[2020-02-21] MEDS ORDERED: KCL 20 MEQ/100 ML IVPREMIX 20 MEQ/100 ML BAG IV ONE (18:04)
[2020-02-21] MEDS ORDERED: Dextrose 50% Syringe 50 ml 25 GM/50 ML SYRINGE IV PUSH PRN (18:31)
[2020-02-21 20:20] LABS: Urine Appearance Cloudy; Urine Bilirubin Negative (Negative); Urine Blood 1+ (Negative); Urine Color Straw; Urine Glucose 3+(>=500 mg/dL) (Negative); Urine Ketones Negative (Negative); Urine Nitrite Negative (Negative); Urine Protein Negative (Negative); Urine Specific Gravity 1.006 (1.010-1.030); Urine Urobilinogen Negative (Negative)
[2020-02-21 20:28] LABS: Urine Bacteria 1+ (Absent); Urine Red Blood Cell Trace(0-2/hpf) (Absent); Urine Squamous Epithelial Cell Present (Absent); Urine White Blood Cell 3+(>20/hpf) (Absent)
[2020-02-21 21:00] LABS: Urine Creatinine Concentration 20.29 mg/dL
[2020-02-21] MEDS: Enoxaparin 40 MG/0.4 ML SYR(*) SUBCUT SCH (21:11)
[2020-02-21] MEDS: Tobramycin/Dexameth OPTH.SUSP 2.5 ml BTL LEFT EYE SCH (21:12)
[2020-02-21] MEDS: Insulin GLARGINE 100 un/ml (*) 10 ml VIAL SUBCUT SCH (21:12)
[2020-02-21] MEDS ORDERED: NS 0.9% 500 ml BAG 500 ML IV ONE (21:53)
[2020-02-21] MEDS: cefTRIAXone ADVAN VIAL 1 GM in NS 0.9% 50 ML 50 ML IVPB SCH (23:46)
[2020-02-22 07:28] LABS: BUN/Creatinine Ratio 28.5 (8-20); Calcium 8.6 mg/dL (8.6-10.3); EGFR African American 41.1 (>60); HDL Cholesterol 31.4 mg/dL; Potassium 3.8 mmol/L (3.5-5.0)
[2020-02-22] MEDS: SPIRIVA Respimat (tiotropium) 2.5 mcg/inh Inhaler INH SCH (07:41)
[2020-02-22 07:42] LABS: ABS Eosinophils 0.2 10^3/ul (0-0.6); ABS Lymphocytes 1.3 10^3/ul (1.0-4.8); ABS Monocytes 0.5 10^3/ul (0-0.8); Eosinophil % 1.9 %; Hematocrit 39 % (35-47); Hemoglobin 12.7 g/dL (12.0-16.0); Lymphocyte % 14.4 %; Mean Corpuscular HGB Conc 33 g/dL (31-36); Mean Corpuscular Hemoglobin 28 pg (27-31); Mean Corpuscular Volume 86 fL (80-97); Mean Platelet Volume 8.7 fL (7.4-10.4); Platelet Count 291 10^3/uL (150-450); Red Blood Count 4.47 10^6 /uL (3.70-4.87); Red Cell Distribution Width 19 % (10-15); White Blood Count 8.8 10^3/uL (3.5-10.8)
[2020-02-22] MEDS ORDERED: Perflutren Lipid Microsphere 3 ML VIAL ONE (07:56)
[2020-02-22] MEDS: Insulin LISPRO 100 units/ml(*) SUBCUT SCH ×4 (08:10→16:36)
[2020-02-22] MEDS ORDERED: Empaglifozin 10 mg TAB (NF) PO SCH (09:00)
[2020-02-22] MEDS: Insulin GLARGINE 100 un/ml (*) 10 ml VIAL SUBCUT SCH ×2 (09:52→22:00)
[2020-02-22] MEDS: Tobramycin/Dexameth OPTH.SUSP 2.5 ml BTL LEFT EYE SCH ×3 (09:59→21:59)
[2020-02-22] MEDS: Enoxaparin 40 MG/0.4 ML SYR(*) SUBCUT SCH (18:10)
[2020-02-22] MEDS: cefTRIAXone ADVAN VIAL 1 GM in NS 0.9% 50 ML 50 ML IVPB SCH (21:58)
[2020-02-23] MEDS: Insulin LISPRO 100 units/ml(*) SUBCUT SCH ×3 (07:51→20:43)
[2020-02-23] MEDS: Tobramycin/Dexameth OPTH.SUSP 2.5 ml BTL LEFT EYE SCH ×2 (08:44→14:10)
[2020-02-23] MEDS: Insulin GLARGINE 100 un/ml (*) 10 ml VIAL SUBCUT SCH (08:44)
[2020-02-23 20:05] LABS: Hematocrit 32 % (35-47); Hemoglobin 10.9 g/dL (12.0-16.0); Mean Corpuscular Volume 85 fL (80-97); Red Blood Count 3.84 10^6 /uL (3.70-4.87); White Blood Count 7.9 10^3/uL (3.5-10.8)
[2020-02-23 20:06] LABS: ABS Eosinophils 0.2 10^3/ul (0-0.6); ABS Lymphocytes 1.3 10^3/ul (1.0-4.8); ABS Monocytes 0.6 10^3/ul (0-0.8); Eosinophil % 2.9 %; INR 0.97 (0.82-1.09); Mean Corpuscular HGB Conc 34 g/dL (31-36); Mean Corpuscular Hemoglobin 28 pg (27-31); Mean Platelet Volume 8.6 fL (7.4-10.4); Platelet Count 267 10^3/uL (150-450); Red Cell Distribution Width 18 % (10-15)
[2020-02-23 20:07] LABS: Albumin 3.4 g/dL (3.2-5.2); Albumin/Globulin Ratio 1.1 (1-3); BUN/Creatinine Ratio 25.2 (8-20); EGFR African American 43.3 (>60); EGFR Non-African American 35.8 (>60); Potassium 4.1 mmol/L (3.5-5.0); Total Protein 6.4 g/dL (6.4-8.9)
[2020-02-23 20:08] LABS: Total Bilirubin 0.3 mg/dL (0.2-1.0)
[2020-02-23 20:27] VITALS: BP 130/70
[2020-02-23] MEDS: cefTRIAXone ADVAN VIAL 1 GM in NS 0.9% 50 ML 50 ML IVPB SCH (20:35)
[2020-02-23] MEDS: SPIRIVA Respimat (tiotropium) 2.5 mcg/inh Inhaler INH SCH (20:38)
== END 2020-02-23 16:55 | disposition home or self-care (01) ==
LOC: ED 14:23 → MEDTELE 17:54
PROVIDERS: ADMIT Hospitalist; ATTEND Internal Medicine

== ENCOUNTER 2020-05-24 17:31 | Observation (INO) ==
[2020-05-24] MEDS ORDERED: NS 0.9% 1000 ml BAG 1,000 ML IV ONE ×2 (18:33→20:46)
[2020-05-24 19:21] LABS: ABS Basophils 0.2 10^3/ul (0-0.2); ABS Eosinophils 0.1 10^3/ul (0-0.6); ABS Lymphocytes 1.3 10^3/ul (1.0-4.8); ABS Monocytes 0.7 10^3/ul (0-0.8); ABS Neutrophils 13.1 10^3/ul (1.5-7.7); Eosinophil % 0.8 %; Hematocrit 33 % (35-47); Hemoglobin 11.4 g/dL (12.0-16.0); Lymphocyte % 8.4 %; Mean Corpuscular HGB Conc 34 g/dL (31-36); Mean Corpuscular Hemoglobin 27 pg (27-31); Mean Corpuscular Volume 80 fL (80-97); Mean Platelet Volume 9.1 fL (7.4-10.4); Platelet Count 270 10^3/uL (150-450); Red Blood Count 4.17 10^6 /uL (3.70-4.87); Red Cell Distribution Width 18 % (10-15); White Blood Count 15.4 10^3/uL (3.5-10.8)
[2020-05-24 19:39] LABS: ALT 15 U/L (7-52); AST 14 U/L (13-39); Albumin 3.6 g/dL (3.2-5.2); Albumin/Globulin Ratio 1.2 (1-3); Alkaline Phosphatase 160 U/L (34-104); Anion Gap 9 mmol/L (2-11); BUN/Creatinine Ratio 24.9 (8-20); Blood Urea Nitrogen 43 mg/dL (6-24); C Reactive Protein 32.05 mg/L (<8.01); CO2 Carbon Dioxide 24 mmol/L (22-32); Calcium 8.9 mg/dL (8.6-10.3); Chloride 99 mmol/L (101-111); EGFR African American 36.9 (>60); EGFR Non-African American 30.5 (>60); Globulin 3.1 g/dL (2-4); Glucose 403 mg/dL (70-100); Potassium 4.5 mmol/L (3.5-5.0); Sodium 132 mmol/L (135-145); Total Protein 6.7 g/dL (6.4-8.9)
[2020-05-24 19:43] LABS: Troponin I 0.04 ng/mL (<0.03)
[2020-05-24 19:58] LABS: TSH Ultra Thyroid Stim Horm 0.24 mcIU/mL (0.34-5.60)
[2020-05-24 20:36] LABS: Urine Appearance Cloudy; Urine Bilirubin Negative (Negative); Urine Blood 1+ (Negative); Urine Color Yellow; Urine Glucose 3+(>=500 mg/dL) (Negative); Urine Ketones Negative (Negative); Urine Nitrite Negative (Negative); Urine Protein Negative (Negative); Urine Specific Gravity 1.009 (1.010-1.030); Urine Urobilinogen Negative (Negative)
[2020-05-24] MEDS ORDERED: cefTRIAXone 1 gm/50 mL NS BAG 1 GM/50 ML BAG IV ONE (20:46)
[2020-05-24 21:02] LABS: Urine Bacteria Absent (Absent); Urine Red Blood Cell Absent (Absent); Urine Squamous Epithelial Cell Present (Absent); Urine White Blood Cell 3+(>20/hpf) (Absent)
[2020-05-25] MEDS ORDERED: NS 0.9% IV ONE (00:15)
[2020-05-25] MEDS ORDERED: Ondansetron 4 mg VIAL 2 MG/ML 2 ml VIAL IV ONE (00:22)
[2020-05-25] MEDS ORDERED: Morphine 4 MG/ML VIAL (1 ml) IV ONE (00:22)
[2020-05-25] MEDS ORDERED: Dextrose 50% Syringe 50 ml 25 GM/50 ML SYRINGE IV PUSH PRN (00:44)
[2020-05-25] MEDS ORDERED: Prochlorperazine 5 mg/ml 2 ml VIAL (10 mg) IV PRN (00:44)
[2020-05-25 01:55] LABS: Troponin I 0.03 ng/mL (<0.03)
[2020-05-25] MEDS ORDERED: Albuterol HFA INHALER 8 gm MDI INH PRN (02:37)
[2020-05-25] MEDS: Heparin 5000 UNITS/ML 1 mL VIAL SUBCUT SCH ×3 (06:15→21:13)
[2020-05-25 06:46] LABS: INR 0.94 (0.82-1.09)
[2020-05-25 06:54] LABS: BUN/Creatinine Ratio 26.2 (8-20); Calcium 8.4 mg/dL (8.6-10.3); EGFR African American 46.7 (>60); EGFR Non-African American 38.6 (>60); Potassium 3.8 mmol/L (3.5-5.0)
[2020-05-25 06:57] LABS: ABS Eosinophils 0.3 10^3/ul (0-0.6); ABS Lymphocytes 1.7 10^3/ul (1.0-4.8); ABS Monocytes 0.5 10^3/ul (0-0.8); ABS Neutrophils 5.8 10^3/ul (1.5-7.7); Eosinophil % 3.3 %; Hematocrit 35 % (35-47); Lymphocyte % 20.5 %; Mean Corpuscular HGB Conc 34 g/dL (31-36); Mean Corpuscular Hemoglobin 28 pg (27-31); Mean Corpuscular Volume 83 fL (80-97); Platelet Count 271 10^3/uL (150-450); Red Blood Count 4.25 10^6 /uL (3.70-4.87); Red Cell Distribution Width 18 % (10-15); White Blood Count 8.3 10^3/uL (3.5-10.8)
[2020-05-25] MEDS: Mometasone/Formoter 100/5 MDI INH SCH ×3 (07:35→20:24)
[2020-05-25] MEDS: Insulin GLARGINE 100 un/ml 10 ml VIAL SUBCUT SCH ×2 (07:51→21:13)
[2020-05-25] MEDS: oxyCODONE/Acetamin 5/325 mg TAB PO PRN ×3 (07:51→23:24)
[2020-05-25] MEDS ORDERED: cefTRIAXone 1 gm/50 mL NS BAG 1 GM/50 ML BAG IVPB SCH (21:00)
[2020-05-26] MEDS: Heparin 5000 UNITS/ML 1 mL VIAL SUBCUT SCH (05:59)
[2020-05-26 06:42] LABS: ABS Eosinophils 0.4 10^3/ul (0-0.6); ABS Lymphocytes 1.5 10^3/ul (1.0-4.8); ABS Monocytes 0.5 10^3/ul (0-0.8); ABS Neutrophils 4.4 10^3/ul (1.5-7.7); Eosinophil % 5.9 %; Hematocrit 34 % (35-47); Hemoglobin 11.3 g/dL (12.0-16.0); Lymphocyte % 21.3 %; Mean Corpuscular HGB Conc 34 g/dL (31-36); Mean Corpuscular Hemoglobin 28 pg (27-31); Mean Corpuscular Volume 83 fL (80-97); Mean Platelet Volume 9.1 fL (7.4-10.4); Platelet Count 247 10^3/uL (150-450); Red Blood Count 4.04 10^6 /uL (3.70-4.87); Red Cell Distribution Width 18 % (10-15); White Blood Count 6.8 10^3/uL (3.5-10.8)
[2020-05-26 06:59] LABS: BUN/Creatinine Ratio 24.6 (8-20); Calcium 8.4 mg/dL (8.6-10.3); EGFR African American 51.3 (>60); EGFR Non-African American 42.4 (>60); Potassium 4.1 mmol/L (3.5-5.0)
[2020-05-26] MEDS: Insulin GLARGINE 100 un/ml 10 ml VIAL SUBCUT SCH (07:34)
[2020-05-26] MEDS: Mometasone/Formoter 100/5 MDI INH SCH (07:50)
[2020-05-26 11:12] VITALS: BP 138/73
[2020-05-26] MEDS ORDERED: cefTRIAXone 1 gm/50 mL NS BAG 1 GM/50 ML BAG IVPB ONE (13:00)
== END 2020-05-26 14:07 | disposition home or self-care (01) ==
LOC: ED 17:31 → MEDTELE 17:31
PROVIDERS: ADMIT Nurse Practitioner Family; ATTEND Internal Medicine

== ENCOUNTER 2020-06-17 14:08 | Observation (INO) ==
[2020-06-17] MEDS ORDERED: NS 0.9% 1000 ml BAG 2,000 ML IV ONE (14:58)
[2020-06-17 15:13] LABS: ABS Basophils 0.1 10^3/ul (0-0.2); ABS Eosinophils 0.3 10^3/ul (0-0.6); ABS Lymphocytes 1.3 10^3/ul (1.0-4.8); ABS Monocytes 1.1 10^3/ul (0-0.8); ABS Neutrophils 8.7 10^3/ul (1.5-7.7); Eosinophil % 2.9 %; Hematocrit 40 % (35-47); Hemoglobin 13.3 g/dL (12.0-16.0); Lymphocyte % 10.9 %; Mean Corpuscular HGB Conc 33 g/dL (31-36); Mean Corpuscular Hemoglobin 27 pg (27-31); Mean Corpuscular Volume 81 fL (80-97); Mean Platelet Volume 9.1 fL (7.4-10.4); Nucleated Red Blood Cells % 0.3; Platelet Count 374 10^3/uL (150-450); Red Blood Count 4.93 10^6 /uL (3.70-4.87); Red Cell Distribution Width 20 % (10-15); White Blood Count 11.6 10^3/uL (3.5-10.8)
[2020-06-17 15:24] LABS: Troponin I 0.01 ng/mL (<0.03)
[2020-06-17 15:25] LABS: INR 0.89 (0.82-1.09)
[2020-06-17 15:28] LABS: Albumin 4.3 g/dL (3.2-5.2); Albumin/Globulin Ratio 1.2 (1-3); BUN/Creatinine Ratio 22.1 (8-20); Calcium 9.8 mg/dL (8.6-10.3); EGFR African American 31.4 (>60); EGFR Non-African American 25.9 (>60); Globulin 3.6 g/dL (2-4); Potassium 3.7 mmol/L (3.5-5.0); Total Bilirubin 0.5 mg/dL (0.2-1.0); Total Protein 7.9 g/dL (6.4-8.9)
[2020-06-17] MEDS ORDERED: Piperacillin/Tazobac ADVAN 3.375 GM in NS 0.9% 100 ml BAG 100 ML IVPB ONE (16:13)
[2020-06-17] MEDS ORDERED: Dextrose 50% Syringe 50 ml 25 GM/50 ML SYRINGE IV PUSH ONE (17:18)
[2020-06-17 19:43] LABS: C Reactive Protein 29.4 mg/L (<8.01)
[2020-06-17] MEDS ORDERED: Dextrose 50% Syringe 50 ml 25 GM/50 ML SYRINGE IV PUSH PRN (20:03)
[2020-06-17] MEDS ORDERED: Albuterol 2.5mg/3 ml (0.083%) NEB.SOLN INH PRN (20:04)
[2020-06-17 20:31] LABS: Urine Appearance Turbid; Urine Bilirubin Negative (Negative); Urine Blood 1+ (Negative); Urine Color Yellow; Urine Glucose 3+(>=500 mg/dL) (Negative); Urine Ketones Negative (Negative); Urine Nitrite Negative (Negative); Urine Protein Negative (Negative); Urine Specific Gravity 1.007 (1.010-1.030); Urine Urobilinogen Negative (Negative)
[2020-06-17 20:38] LABS: Urine Bacteria Absent (Absent); Urine Red Blood Cell 1+(3-5/hpf) (Absent); Urine Squamous Epithelial Cell Present (Absent); Urine White Blood Cell 3+(>20/hpf) (Absent)
[2020-06-17] MEDS ORDERED: INSULIN DETEMIR SUBCUT SCH (21:00)
[2020-06-17] MEDS ORDERED: INSULIN ASPART SUBCUT SCH (21:00)
[2020-06-17 22:30] LABS: Activated Partial Thrombo Time 21.3 seconds (26.0-38.0); INR 0.94 (0.82-1.09)
[2020-06-17] MEDS: Insulin GLARGINE 100 un/ml 10 ml VIAL SUBCUT SCH (23:06)
[2020-06-17] MEDS: Heparin 5000 UNITS/ML 1 mL VIAL SUBCUT SCH (23:07)
[2020-06-18] MEDS: ceFAZolin 1 GM ADVAN 1 GM in NS 0.9% 50 ML 50 ML IVPB SCH ×4 (00:36→21:49)
[2020-06-18 01:31] LABS: Urine Creatinine Concentration 28.83 mg/dL
[2020-06-18 05:35] LABS: ABS Basophils 0.1 10^3/ul (0-0.2); ABS Eosinophils 0.3 10^3/ul (0-0.6); ABS Lymphocytes 1.8 10^3/ul (1.0-4.8); ABS Monocytes 0.7 10^3/ul (0-0.8); ABS Neutrophils 6.2 10^3/ul (1.5-7.7); Eosinophil % 3.7 %; Hematocrit 36 % (35-47); Hemoglobin 12.1 g/dL (12.0-16.0); Lymphocyte % 20.2 %; Mean Corpuscular HGB Conc 34 g/dL (31-36); Mean Corpuscular Hemoglobin 28 pg (27-31); Mean Corpuscular Volume 82 fL (80-97); Mean Platelet Volume 9.1 fL (7.4-10.4); Platelet Count 280 10^3/uL (150-450); Red Blood Count 4.33 10^6 /uL (3.70-4.87); Red Cell Distribution Width 20 % (10-15); White Blood Count 9.1 10^3/uL (3.5-10.8)
[2020-06-18 05:44] LABS: Calcium 8.6 mg/dL (8.6-10.3); Potassium 3.7 mmol/L (3.5-5.0)
[2020-06-18 05:50] LABS: BUN/Creatinine Ratio 22.5 (8-20); EGFR African American 32.9 (>60); EGFR Non-African American 27.2 (>60)
[2020-06-18] MEDS: Heparin 5000 UNITS/ML 1 mL VIAL SUBCUT SCH (06:35)
[2020-06-18] MEDS: SPIRIVA Respimat (tiotropium) 2.5 mcg/inh Inhaler INH SCH (09:16)
[2020-06-18] MEDS: Mometasone/Formoter 100/5 MDI INH SCH ×2 (09:20→21:07)
[2020-06-18] MEDS: Insulin GLARGINE 100 un/ml 10 ml VIAL SUBCUT SCH ×2 (10:10→21:15)
[2020-06-18] MEDS: Enoxaparin 40 MG/0.4 ML SYR SUBCUT SCH (11:28)
[2020-06-18] MEDS ORDERED: Dextrose 50% Syringe 50 ml 25 GM/50 ML SYRINGE IV PUSH PRN (13:24)
[2020-06-18] MEDS: oxyCODONE/Acetamin 5/325 mg TAB PO PRN (14:14)
[2020-06-19] MEDS: ceFAZolin 1 GM ADVAN 1 GM in NS 0.9% 50 ML 50 ML IVPB SCH (06:14)
[2020-06-19 07:52] LABS: BUN/Creatinine Ratio 17.6 (8-20); Calcium 8.9 mg/dL (8.6-10.3); EGFR African American 33.5 (>60); EGFR Non-African American 27.7 (>60); Magnesium 2.4 mg/dL (1.9-2.7)
[2020-06-19 07:53] VITALS: BP 109/63
[2020-06-19] MEDS: Mometasone/Formoter 100/5 MDI INH SCH (07:54)
[2020-06-19] MEDS: SPIRIVA Respimat (tiotropium) 2.5 mcg/inh Inhaler INH SCH (07:54)
[2020-06-19] MEDS: Insulin GLARGINE 100 un/ml 10 ml VIAL SUBCUT SCH (08:42)
[2020-06-19] MEDS: Enoxaparin 40 MG/0.4 ML SYR SUBCUT SCH (12:25)
[2020-06-19] MEDS: oxyCODONE/Acetamin 5/325 mg TAB PO PRN (15:19)
== END 2020-06-19 15:45 | disposition home or self-care (01) ==
LOC: MED 14:08 → ED 14:08 → MED 06-18 18:58
PROVIDERS: ADMIT Pediatrics; ATTEND Internal Medicine

== ENCOUNTER 2020-07-22 22:50 | Inpatient (IN) ==
[2020-07-22] MEDS ORDERED: Nitro 2% OINT (Nitroglycerin) 1 INCH/PAK TOPICAL ONE (23:31)
[2020-07-22] MEDS ORDERED: Furosemide 40 mg/4 ml IV VIAL IV SLOW PU ONE (23:31)
[2020-07-23 00:02] LABS: ABS Basophils 0.1 10^3/ul (0-0.2); ABS Eosinophils 0.3 10^3/ul (0-0.6); ABS Lymphocytes 1.7 10^3/ul (1.0-4.8); ABS Monocytes 0.7 10^3/ul (0-0.8); ABS Neutrophils 7.6 10^3/ul (1.5-7.7); Eosinophil % 2.8 %; Hematocrit 42 % (35-47); Hemoglobin 13.9 g/dL (12.0-16.0); Lymphocyte % 16.3 %; Mean Corpuscular HGB Conc 33 g/dL (31-36); Mean Corpuscular Hemoglobin 27 pg (27-31); Mean Corpuscular Volume 82 fL (80-97); Mean Platelet Volume 9.3 fL (7.4-10.4); Nucleated Red Blood Cells % 0.1; Platelet Count 313 10^3/uL (150-450); Red Cell Distribution Width 18 % (10-15); White Blood Count 10.3 10^3/uL (3.5-10.8)
[2020-07-23] MEDS ORDERED: nitroGLYCERIN DRIP 25,000 MCG/250 ML BTL IV ONE (00:07)
[2020-07-23 00:20] LABS: ALT 12 U/L (7-52); AST 14 U/L (13-39); Albumin 4.1 g/dL (3.2-5.2); Albumin/Globulin Ratio 1.1 (1-3); Alkaline Phosphatase 222 U/L (34-104); Anion Gap 12 mmol/L (2-11); BUN/Creatinine Ratio 24.8 (8-20); Blood Urea Nitrogen 32 mg/dL (6-24); CO2 Carbon Dioxide 24 mmol/L (22-32); Calcium 9.8 mg/dL (8.6-10.3); Chloride 94 mmol/L (101-111); EGFR African American 51.7 (>60); EGFR Non-African American 42.8 (>60); Globulin 3.9 g/dL (2-4); Potassium 4.6 mmol/L (3.5-5.0); Sodium 130 mmol/L (135-145)
[2020-07-23 00:22] LABS: Glucose 579 mg/dL (70-100)
[2020-07-23 00:23] LABS: Troponin I 0.03 ng/mL (<0.03)
[2020-07-23] MEDS ORDERED: Dextrose 50% Syringe 50 ml 25 GM/50 ML SYRINGE IV PUSH PRN ×4 (00:26→18:41)
[2020-07-23] MEDS ORDERED: Albuterol 2.5mg/3 ml (0.083%) NEB.SOLN INH PRN (01:49)
[2020-07-23] MEDS ORDERED: nitroGLYCERIN DRIP 25,000 MCG/250 ML BTL IV SCH (02:00)
[2020-07-23 03:11] LABS: Troponin I 0.08 ng/mL (<0.03)
[2020-07-23 03:38] LABS: Activated Partial Thrombo Time 20.7 seconds (26.0-38.0); INR 0.88 (0.82-1.09)
[2020-07-23] MEDS ORDERED: Prochlorperazine 5 mg/ml 2 ml VIAL (10 mg) ONE (04:37)
[2020-07-23] MEDS ORDERED: Prochlorperazine 5 mg/ml 2 ml VIAL (10 mg) IV ONE (04:45)
[2020-07-23 05:11] LABS: ABS Basophils 0.1 10^3/ul (0-0.2); ABS Eosinophils 0.1 10^3/ul (0-0.6); ABS Lymphocytes 1.2 10^3/ul (1.0-4.8); ABS Monocytes 0.5 10^3/ul (0-0.8); ABS Neutrophils 8.3 10^3/ul (1.5-7.7); Eosinophil % 0.8 %; Hematocrit 36 % (35-47); Hemoglobin 12.2 g/dL (12.0-16.0); Lymphocyte % 11.9 %; Mean Corpuscular HGB Conc 34 g/dL (31-36); Mean Corpuscular Hemoglobin 28 pg (27-31); Mean Corpuscular Volume 83 fL (80-97); Mean Platelet Volume 9.3 fL (7.4-10.4); Platelet Count 263 10^3/uL (150-450); Red Blood Count 4.37 10^6 /uL (3.70-4.87); Red Cell Distribution Width 17 % (10-15); White Blood Count 10.2 10^3/uL (3.5-10.8)
[2020-07-23 05:17] LABS: INR 0.93 (0.82-1.09)
[2020-07-23 05:28] LABS: Anion Gap 11 mmol/L (2-11); Blood Urea Nitrogen 37 mg/dL (6-24); CO2 Carbon Dioxide 24 mmol/L (22-32); Calcium 8.8 mg/dL (8.6-10.3); Chloride 95 mmol/L (101-111); EGFR African American 50.4 (>60); EGFR Non-African American 41.6 (>60); Potassium 4.4 mmol/L (3.5-5.0); Sodium 130 mmol/L (135-145)
[2020-07-23 05:34] LABS: Glucose 768 mg/dL (70-100); Troponin I 0.23 ng/mL (<0.03)
[2020-07-23] MEDS ORDERED: Insulin Infusion 100unit/100mL 100 UNIT/100 ML BAG IV SCH (06:00)
[2020-07-23] MEDS: Heparin 5000 UNITS/ML 1 mL VIAL SUBCUT SCH ×3 (06:14→21:58)
[2020-07-23] MEDS ORDERED: Perflutren Lipid Microsphere 3 ML VIAL ONE (08:24)
[2020-07-23] MEDS ORDERED: Insulin GLARGINE 100 un/ml 10 ml VIAL SUBCUT SCH (09:00)
[2020-07-23] MEDS: Furosemide 40 mg/4 ml IV VIAL IV SLOW PU SCH (09:15)
[2020-07-23] MEDS: Mometasone/Formoter 100/5 MDI INH SCH ×2 (09:19→19:32)
[2020-07-23 09:44] LABS: Glucose Confirmatory 540 mg/dL (70-100); Troponin I 0.33 ng/mL (<0.03)
[2020-07-23] MEDS ORDERED: Insulin GLARGINE 100 un/ml 10 ml VIAL SUBCUT ONE (12:32)
[2020-07-23 12:41] LABS: Anion Gap 9 mmol/L (2-11); BUN/Creatinine Ratio 27.7 (8-20); Blood Urea Nitrogen 33 mg/dL (6-24); CO2 Carbon Dioxide 25 mmol/L (22-32); Calcium 8.1 mg/dL (8.6-10.3); Chloride 103 mmol/L (101-111); EGFR African American 56.8 (>60); EGFR Non-African American 46.9 (>60); Glucose 260 mg/dL (70-100); Potassium 3.2 mmol/L (3.5-5.0); Sodium 137 mmol/L (135-145)
[2020-07-23 14:33] LABS: Troponin I 0.36 ng/mL (<0.03)
[2020-07-23] MEDS ORDERED: Potassium Chloride LIQUID 20 MEQ/15 ML LIQUID PO ONE (15:32)
[2020-07-23 18:39] LABS: Troponin I 0.29 ng/mL (<0.03)
[2020-07-23] MEDS: Insulin GLARGINE 100 un/ml 10 ml VIAL SUBCUT SCH (18:53)
[2020-07-24 05:56] LABS: ABS Basophils 0.1 10^3/ul (0-0.2); ABS Eosinophils 0.3 10^3/ul (0-0.6); ABS Lymphocytes 1.9 10^3/ul (1.0-4.8); ABS Monocytes 0.6 10^3/ul (0-0.8); ABS Neutrophils 5.5 10^3/ul (1.5-7.7); Eosinophil % 4.1 %; Hematocrit 38 % (35-47); Hemoglobin 12.1 g/dL (12.0-16.0); Lymphocyte % 22.5 %; Mean Corpuscular HGB Conc 32 g/dL (31-36); Mean Corpuscular Hemoglobin 26 pg (27-31); Mean Corpuscular Volume 82 fL (80-97); Mean Platelet Volume 8.8 fL (7.4-10.4); Nucleated Red Blood Cells % 0.2; Platelet Count 260 10^3/uL (150-450); Red Blood Count 4.59 10^6 /uL (3.70-4.87); Red Cell Distribution Width 18 % (10-15); White Blood Count 8.4 10^3/uL (3.5-10.8)
[2020-07-24 06:12] LABS: Albumin 3.6 g/dL (3.2-5.2); Albumin/Globulin Ratio 1.1 (1-3); BUN/Creatinine Ratio 26.7 (8-20); Calcium 9.1 mg/dL (8.6-10.3); EGFR African American 44.8 (>60); EGFR Non-African American 37.1 (>60); Globulin 3.3 g/dL (2-4); Magnesium 2.1 mg/dL (1.9-2.7); Potassium 4.3 mmol/L (3.5-5.0); Total Bilirubin 0.4 mg/dL (0.2-1.0); Total Protein 6.9 g/dL (6.4-8.9)
[2020-07-24] MEDS: Heparin 5000 UNITS/ML 1 mL VIAL SUBCUT SCH ×3 (06:41→21:46)
[2020-07-24] MEDS: Mometasone/Formoter 100/5 MDI INH SCH ×2 (08:11→20:39)
[2020-07-24] MEDS: Furosemide 40 mg/4 ml IV VIAL IV SLOW PU SCH (08:23)
[2020-07-24] MEDS: Insulin GLARGINE 100 un/ml 10 ml VIAL SUBCUT SCH ×2 (08:25→20:05)
[2020-07-25] MEDS: Heparin 5000 UNITS/ML 1 mL VIAL SUBCUT SCH ×3 (06:09→20:46)
[2020-07-25 07:01] LABS: BUN/Creatinine Ratio 28.8 (8-20); Calcium 8.8 mg/dL (8.6-10.3); EGFR African American 50.4 (>60); EGFR Non-African American 41.6 (>60); Potassium 4.1 mmol/L (3.5-5.0)
[2020-07-25] MEDS: Insulin GLARGINE 100 un/ml 10 ml VIAL SUBCUT SCH ×2 (08:11→20:47)
[2020-07-25] MEDS: Furosemide 40 mg/4 ml IV VIAL IV SLOW PU SCH (08:12)
[2020-07-25] MEDS: Mometasone/Formoter 100/5 MDI INH SCH ×2 (08:22→19:41)
[2020-07-25] MEDS ORDERED: Influenza VAC *QUAD* 2020-21* 0.5 ML SYRINGE IM ONE (09:00)
[2020-07-26] MEDS: Heparin 5000 UNITS/ML 1 mL VIAL SUBCUT SCH ×3 (05:51→22:30)
[2020-07-26 06:16] LABS: BUN/Creatinine Ratio 28.2 (8-20); EGFR African American 39.5 (>60); EGFR Non-African American 32.6 (>60); Magnesium 1.9 mg/dL (1.9-2.7); Potassium 4.3 mmol/L (3.5-5.0)
[2020-07-26 06:30] LABS: TSH Ultra Thyroid Stim Horm 0.6 mcIU/mL (0.34-5.60)
[2020-07-26] MEDS: Mometasone/Formoter 100/5 MDI INH SCH ×2 (07:27→19:15)
[2020-07-26] MEDS: Insulin GLARGINE 100 un/ml 10 ml VIAL SUBCUT SCH ×2 (08:51→20:33)
[2020-07-27] MEDS: Heparin 5000 UNITS/ML 1 mL VIAL SUBCUT SCH ×3 (06:04→21:42)
[2020-07-27] MEDS: Insulin GLARGINE 100 un/ml 10 ml VIAL SUBCUT SCH ×2 (08:11→20:08)
[2020-07-27] MEDS ORDERED: Furosemide 40 mg/4 ml IV VIAL IV ONE (09:08)
[2020-07-27] MEDS: Mometasone/Formoter 100/5 MDI INH SCH ×2 (09:23→19:38)
[2020-07-27] MEDS ORDERED: Furosemide 100 mg/10 ml IV VIAL IV ONE (10:27)
[2020-07-27 10:53] LABS: ABS Basophils 0.1 10^3/ul (0-0.2); ABS Eosinophils 0.1 10^3/ul (0-0.6); ABS Lymphocytes 1.3 10^3/ul (1.0-4.8); ABS Monocytes 1.1 10^3/ul (0-0.8); Eosinophil % 0.7 %; Hematocrit 33 % (35-47); Hemoglobin 10.9 g/dL (12.0-16.0); Lymphocyte % 9.6 %; Mean Corpuscular HGB Conc 33 g/dL (31-36); Mean Corpuscular Hemoglobin 27 pg (27-31); Mean Corpuscular Volume 83 fL (80-97); Platelet Count 272 10^3/uL (150-450); Red Blood Count 4.04 10^6 /uL (3.70-4.87); Red Cell Distribution Width 18 % (10-15); White Blood Count 13.6 10^3/uL (3.5-10.8)
[2020-07-27 11:05] LABS: Anion Gap 10 mmol/L (2-11); BUN/Creatinine Ratio 28.8 (8-20); Blood Urea Nitrogen 53 mg/dL (6-24); CO2 Carbon Dioxide 25 mmol/L (22-32); Calcium 9.1 mg/dL (8.6-10.3); Chloride 97 mmol/L (101-111); EGFR African American 34.3 (>60); EGFR Non-African American 28.4 (>60); Glucose 139 mg/dL (70-100); Potassium 4.2 mmol/L (3.5-5.0); Sodium 132 mmol/L (135-145)
[2020-07-27 16:31] LABS: Troponin I 0.08 ng/mL (<0.03)
[2020-07-27 20:28] LABS: Troponin I 0.07 ng/mL (<0.03)
[2020-07-28 01:01] LABS: Troponin I 0.06 ng/mL (<0.03)
[2020-07-28] MEDS: Heparin 5000 UNITS/ML 1 mL VIAL SUBCUT SCH ×3 (05:20→20:59)
[2020-07-28 05:50] LABS: ABS Basophils 0.1 10^3/ul (0-0.2); ABS Eosinophils 0.1 10^3/ul (0-0.6); ABS Lymphocytes 1.4 10^3/ul (1.0-4.8); ABS Monocytes 0.9 10^3/ul (0-0.8); ABS Neutrophils 8.4 10^3/ul (1.5-7.7); Eosinophil % 1.3 %; Hematocrit 32 % (35-47); Hemoglobin 10.6 g/dL (12.0-16.0); Lymphocyte % 12.7 %; Mean Corpuscular HGB Conc 34 g/dL (31-36); Mean Corpuscular Hemoglobin 28 pg (27-31); Mean Corpuscular Volume 82 fL (80-97); Mean Platelet Volume 8.8 fL (7.4-10.4); Platelet Count 253 10^3/uL (150-450); Red Blood Count 3.83 10^6 /uL (3.70-4.87); Red Cell Distribution Width 17 % (10-15); White Blood Count 10.9 10^3/uL (3.5-10.8)
[2020-07-28 06:08] LABS: BUN/Creatinine Ratio 30.2 (8-20); Calcium 8.5 mg/dL (8.6-10.3); EGFR African American 32.7 (>60); Potassium 4.1 mmol/L (3.5-5.0)
[2020-07-28] MEDS: Mometasone/Formoter 100/5 MDI INH SCH ×2 (08:11→20:35)
[2020-07-28] MEDS: Insulin GLARGINE 100 un/ml 10 ml VIAL SUBCUT SCH ×2 (08:23→20:58)
[2020-07-28] MEDS ORDERED: Furosemide 20 mg/2 ml IV VIAL IV SCH (09:00)
[2020-07-29] MEDS: Heparin 5000 UNITS/ML 1 mL VIAL SUBCUT SCH ×3 (06:46→20:29)
[2020-07-29 07:03] LABS: ABS Eosinophils 0.3 10^3/ul (0-0.6); ABS Lymphocytes 1.4 10^3/ul (1.0-4.8); ABS Monocytes 0.7 10^3/ul (0-0.8); ABS Neutrophils 7.1 10^3/ul (1.5-7.7); Hematocrit 30 % (35-47); Lymphocyte % 14.5 %; Mean Corpuscular HGB Conc 33 g/dL (31-36); Mean Corpuscular Hemoglobin 28 pg (27-31); Mean Corpuscular Volume 83 fL (80-97); Mean Platelet Volume 8.8 fL (7.4-10.4); Platelet Count 253 10^3/uL (150-450); Red Blood Count 3.62 10^6 /uL (3.70-4.87); Red Cell Distribution Width 18 % (10-15); White Blood Count 9.4 10^3/uL (3.5-10.8)
[2020-07-29 07:14] LABS: BUN/Creatinine Ratio 31.5 (8-20); Calcium 8.4 mg/dL (8.6-10.3); Potassium 3.9 mmol/L (3.5-5.0)
[2020-07-29] MEDS: Mometasone/Formoter 100/5 MDI INH SCH ×3 (07:45→19:35)
[2020-07-29] MEDS: Insulin GLARGINE 100 un/ml 10 ml VIAL SUBCUT SCH ×2 (08:16→20:30)
[2020-07-29] MEDS ORDERED: Dextrose 50% Syringe 50 ml 25 GM/50 ML SYRINGE IV PUSH PRN (13:34)
[2020-07-29] MEDS ORDERED: Furosemide 40 mg/4 ml IV VIAL IV ONE (15:00)
[2020-07-30] MEDS: Heparin 5000 UNITS/ML 1 mL VIAL SUBCUT SCH ×3 (05:45→20:46)
[2020-07-30 06:29] LABS: ABS Eosinophils 0.3 10^3/ul (0-0.6); ABS Lymphocytes 1.1 10^3/ul (1.0-4.8); ABS Monocytes 0.8 10^3/ul (0-0.8); ABS Neutrophils 10.4 10^3/ul (1.5-7.7); Eosinophil % 2.1 %; Hematocrit 30 % (35-47); Hemoglobin 9.9 g/dL (12.0-16.0); Lymphocyte % 9.1 %; Mean Corpuscular HGB Conc 33 g/dL (31-36); Mean Corpuscular Hemoglobin 27 pg (27-31); Mean Corpuscular Volume 82 fL (80-97); Mean Platelet Volume 8.8 fL (7.4-10.4); Nucleated Red Blood Cells % 0.1; Platelet Count 298 10^3/uL (150-450); Red Blood Count 3.66 10^6 /uL (3.70-4.87); Red Cell Distribution Width 17 % (10-15); White Blood Count 12.7 10^3/uL (3.5-10.8)
[2020-07-30 06:46] LABS: BUN/Creatinine Ratio 39.5 (8-20); Calcium 9.1 mg/dL (8.6-10.3); EGFR African American 33.1 (>60); EGFR Non-African American 27.3 (>60); Potassium 4.3 mmol/L (3.5-5.0)
[2020-07-30 07:01] LABS: Urine Creatinine Concentration 31.3 mg/dL
[2020-07-30] MEDS: Insulin GLARGINE 100 un/ml 10 ml VIAL SUBCUT SCH ×2 (08:38→20:47)
[2020-07-30] MEDS: Mometasone/Formoter 100/5 MDI INH SCH ×2 (09:30→20:07)
[2020-07-31] MEDS: Heparin 5000 UNITS/ML 1 mL VIAL SUBCUT SCH ×2 (05:33→13:03)
[2020-07-31 06:25] LABS: ABS Basophils 0.1 10^3/ul (0-0.2); ABS Eosinophils 0.2 10^3/ul (0-0.6); ABS Lymphocytes 1.6 10^3/ul (1.0-4.8); ABS Monocytes 0.7 10^3/ul (0-0.8); ABS Neutrophils 6.6 10^3/ul (1.5-7.7); Eosinophil % 2.7 %; Hematocrit 30 % (35-47); Hemoglobin 10.2 g/dL (12.0-16.0); Mean Corpuscular HGB Conc 34 g/dL (31-36); Mean Corpuscular Hemoglobin 27 pg (27-31); Mean Corpuscular Volume 81 fL (80-97); Mean Platelet Volume 8.5 fL (7.4-10.4); Nucleated Red Blood Cells % 0.1; Platelet Count 334 10^3/uL (150-450); Red Blood Count 3.73 10^6 /uL (3.70-4.87); Red Cell Distribution Width 17 % (10-15); White Blood Count 9.2 10^3/uL (3.5-10.8)
[2020-07-31 06:36] LABS: Calcium 9.3 mg/dL (8.6-10.3); Potassium 3.9 mmol/L (3.5-5.0)
[2020-07-31 06:42] LABS: BUN/Creatinine Ratio 46.4 (8-20); EGFR African American 32.3 (>60); EGFR Non-African American 26.7 (>60)
[2020-07-31] MEDS: Mometasone/Formoter 100/5 MDI INH SCH (09:43)
[2020-07-31] MEDS: Insulin GLARGINE 100 un/ml 10 ml VIAL SUBCUT SCH (10:03)
[2020-07-31 15:09] VITALS: BP 98/50
== END 2020-07-31 17:50 | disposition home health service (06) | DRG 291 ==
LOC: ED 22:50 → ICU 07-23 01:29 → MEDTELE 07-24 12:50
PROVIDERS: ADMIT Internal Medicine; ATTEND Internal Medicine

== ENCOUNTER 2020-10-13 20:57 | Inpatient (IN) ==
[2020-10-13] MEDS ORDERED: NS 0.9% 1000 ml BAG 1,000 ML IV ONE (23:14)
[2020-10-13 23:59] LABS: ABS Basophils 0.1 10^3/ul (0-0.2); ABS Eosinophils 0.3 10^3/ul (0-0.6); ABS Lymphocytes 1.7 10^3/ul (1.0-4.8); ABS Monocytes 1.2 10^3/ul (0-0.8); ABS Neutrophils 10.6 10^3/ul (1.5-7.7); Eosinophil % 1.9 %; Hematocrit 39 % (35-47); Hemoglobin 12.8 g/dL (12.0-16.0); Lymphocyte % 12.6 %; Mean Corpuscular HGB Conc 33 g/dL (31-36); Mean Corpuscular Hemoglobin 27 pg (27-31); Mean Corpuscular Volume 81 fL (80-97); Mean Platelet Volume 8.8 fL (7.4-10.4); Platelet Count 354 10^3/uL (150-450); Red Blood Count 4.77 10^6 /uL (3.70-4.87); Red Cell Distribution Width 17 % (10-15); White Blood Count 13.9 10^3/uL (3.5-10.8)
[2020-10-14 00:16] LABS: ALT 9 U/L (7-52); AST 10 U/L (13-39); Albumin 3.8 g/dL (3.2-5.2); Albumin/Globulin Ratio 1.1 (1-3); Alkaline Phosphatase 209 U/L (34-104); Anion Gap 11 mmol/L (2-11); BUN/Creatinine Ratio 36.5 (8-20); Blood Urea Nitrogen 74 mg/dL (6-24); C Reactive Protein 33.24 mg/L (<8.01); CO2 Carbon Dioxide 24 mmol/L (22-32); Calcium 9.6 mg/dL (8.6-10.3); Chloride 94 mmol/L (101-111); EGFR African American 30.7 (>60); EGFR Non-African American 25.3 (>60); Globulin 3.4 g/dL (2-4); Glucose 286 mg/dL (70-100); Potassium 4.2 mmol/L (3.5-5.0); Sodium 129 mmol/L (135-145); Total Protein 7.2 g/dL (6.4-8.9)
[2020-10-14 00:20] LABS: Troponin I 0.09 ng/mL (<0.03)
[2020-10-14 00:30] LABS: TSH Ultra Thyroid Stim Horm 1.36 mcIU/mL (0.34-5.60)
[2020-10-14 01:49] LABS: Urine Appearance Turbid; Urine Bilirubin Negative (Negative); Urine Blood 1+ (Negative); Urine Color Yellow; Urine Glucose 3+(>=500 mg/dL) (Negative); Urine Ketones Negative (Negative); Urine Nitrite Positive (Negative); Urine Protein Negative (Negative); Urine Specific Gravity 1.005 (1.010-1.030); Urine Urobilinogen Negative (Negative)
[2020-10-14 02:00] LABS: Urine Bacteria 2+ (Absent); Urine Red Blood Cell 3+(>10/hpf) (Absent); Urine Squamous Epithelial Cell Present (Absent); Urine White Blood Cell 3+(>20/hpf) (Absent)
[2020-10-14] MEDS ORDERED: cefTRIAXone 1 gm/50 mL NS BAG 1 GM/50 ML BAG IV ONE (02:17)
[2020-10-14 03:36] LABS: Troponin I 0.11 ng/mL (<0.03)
[2020-10-14] MEDS ORDERED: NS 0.9% 500 ml BAG 500 ML IV ONE (04:09)
[2020-10-14] MEDS ORDERED: Albuterol HFA INHALER 8 gm MDI INH PRN (04:10)
[2020-10-14] MEDS ORDERED: Dextrose 50% Syringe 50 ml 25 GM/50 ML SYRINGE IV PUSH PRN ×2 (04:12→20:39)
[2020-10-14] MEDS ORDERED: Enoxaparin 30 MG/0.3 ML SYR SUBCUT SCH (05:00)
[2020-10-14 07:08] LABS: ABS Basophils 0.1 10^3/ul (0-0.2); ABS Eosinophils 0.3 10^3/ul (0-0.6); ABS Monocytes 0.7 10^3/ul (0-0.8); ABS Neutrophils 8.4 10^3/ul (1.5-7.7); Eosinophil % 2.6 %; Hematocrit 35 % (35-47); Hemoglobin 11.4 g/dL (12.0-16.0); Lymphocyte % 17.5 %; Mean Corpuscular HGB Conc 33 g/dL (31-36); Mean Corpuscular Hemoglobin 27 pg (27-31); Mean Corpuscular Volume 82 fL (80-97); Mean Platelet Volume 8.6 fL (7.4-10.4); Platelet Count 338 10^3/uL (150-450); Red Blood Count 4.27 10^6 /uL (3.70-4.87); Red Cell Distribution Width 17 % (10-15); White Blood Count 11.5 10^3/uL (3.5-10.8)
[2020-10-14 07:25] LABS: BUN/Creatinine Ratio 41.2 (8-20); Calcium 9.2 mg/dL (8.6-10.3); EGFR African American 37.6 (>60); EGFR Non-African American 31.1 (>60); Potassium 3.8 mmol/L (3.5-5.0)
[2020-10-14 07:39] LABS: Troponin I 0.13 ng/mL (<0.03)
[2020-10-14] MEDS: SPIRIVA Respimat (tiotropium) 2.5 mcg/inh Inhaler INH SCH (08:30)
[2020-10-14 10:41] LABS: Troponin I 0.11 ng/mL (<0.03)
[2020-10-14] MEDS ORDERED: Perflutren Lipid Microsphere 3 ML VIAL ONE (11:10)
[2020-10-14 13:45] LABS: Troponin I 0.1 ng/mL (<0.03)
[2020-10-14] MEDS ORDERED: Insulin GLARGINE 100 un/ml 10 ml VIAL SUBCUT ONE (20:37)
[2020-10-15] MEDS ORDERED: Dextrose 50% Syringe 50 ml 25 GM/50 ML SYRINGE IV PUSH PRN ×3 (00:56→15:17)
[2020-10-15] MEDS: cefTRIAXone 1 gm/50 mL NS BAG 1 GM/50 ML BAG IVPB SCH (02:53)
[2020-10-15 06:07] LABS: Calcium 8.8 mg/dL (8.6-10.3)
[2020-10-15 06:12] LABS: BUN/Creatinine Ratio 38.7 (8-20); EGFR Non-African American 28.9 (>60)
[2020-10-15] MEDS: Enoxaparin 40 MG/0.4 ML SYR SUBCUT SCH (09:18)
[2020-10-15] MEDS: SPIRIVA Respimat (tiotropium) 2.5 mcg/inh Inhaler INH SCH (09:23)
[2020-10-15 14:32] LABS: C Reactive Protein 25.06 mg/L (<8.01)
[2020-10-15] MEDS ORDERED: Insulin GLARGINE 100 un/ml 10 ml VIAL SUBCUT SCH (21:00)
[2020-10-16] MEDS: cefTRIAXone 1 gm/50 mL NS BAG 1 GM/50 ML BAG IVPB SCH (02:50)
[2020-10-16] MEDS ORDERED: Dextrose 50% Syringe 50 ml 25 GM/50 ML SYRINGE IV PUSH PRN (03:10)
[2020-10-16 06:10] LABS: ABS Eosinophils 0.4 10^3/ul (0-0.6); ABS Lymphocytes 1.9 10^3/ul (1.0-4.8); ABS Monocytes 0.7 10^3/ul (0-0.8); ABS Neutrophils 7.2 10^3/ul (1.5-7.7); Eosinophil % 3.6 %; Hematocrit 32 % (35-47); Hemoglobin 10.7 g/dL (12.0-16.0); Lymphocyte % 18.4 %; Mean Corpuscular HGB Conc 34 g/dL (31-36); Mean Corpuscular Hemoglobin 27 pg (27-31); Mean Corpuscular Volume 81 fL (80-97); Mean Platelet Volume 8.9 fL (7.4-10.4); Platelet Count 300 10^3/uL (150-450); Red Blood Count 3.91 10^6 /uL (3.70-4.87); Red Cell Distribution Width 17 % (10-15); White Blood Count 10.2 10^3/uL (3.5-10.8)
[2020-10-16 06:28] LABS: BUN/Creatinine Ratio 44.6 (8-20); Calcium 9.5 mg/dL (8.6-10.3); EGFR African American 47.5 (>60); EGFR Non-African American 39.2 (>60); Potassium 3.8 mmol/L (3.5-5.0)
[2020-10-16] MEDS: SPIRIVA Respimat (tiotropium) 2.5 mcg/inh Inhaler INH SCH (07:47)
[2020-10-16] MEDS: Enoxaparin 40 MG/0.4 ML SYR SUBCUT SCH (08:35)
[2020-10-16 09:38] VITALS: BP 133/61
== END 2020-10-16 11:30 | disposition home or self-care (01) | DRG 872 ==
LOC: ED 20:57 → MEDTELE 20:57
PROVIDERS: ADMIT Internal Medicine; ATTEND Internal Medicine

== ENCOUNTER 2021-02-17 21:04 | Inpatient (IN) ==
[2021-02-17 22:21] LABS: ABS Eosinophils 0.2 10^3/ul (0-0.6); ABS Lymphocytes 1.6 10^3/ul (1.0-4.8); ABS Monocytes 0.7 10^3/ul (0-0.8); ABS Neutrophils 6.8 10^3/ul (1.5-7.7); Hematocrit 39 % (35-47); Hemoglobin 12.6 g/dL (12.0-16.0); Mean Corpuscular HGB Conc 33 g/dL (31-36); Mean Corpuscular Hemoglobin 27 pg (27-31); Mean Corpuscular Volume 81 fL (80-97); Mean Platelet Volume 8.5 fL (7.4-10.4); Platelet Count 324 10^3/uL (150-450); Red Blood Count 4.74 10^6 /uL (3.70-4.87); Red Cell Distribution Width 17 % (10-15); White Blood Count 9.2 10^3/uL (3.5-10.8)
[2021-02-17 22:38] LABS: ALT 10 U/L (7-52); AST 12 U/L (13-39); Albumin 3.9 g/dL (3.2-5.2); Albumin/Globulin Ratio 1.1 (1-3); Alkaline Phosphatase 187 U/L (34-104); Anion Gap 8 mmol/L (2-11); Blood Urea Nitrogen 65 mg/dL (6-24); CO2 Carbon Dioxide 26 mmol/L (22-32); Calcium 9.6 mg/dL (8.6-10.3); Chloride 99 mmol/L (101-111); EGFR African American 48.7 (>60); EGFR Non-African American 40.2 (>60); Globulin 3.7 g/dL (2-4); Glucose 192 mg/dL (70-100); Potassium 4.3 mmol/L (3.5-5.0); Sodium 133 mmol/L (135-145); Total Protein 7.6 g/dL (6.4-8.9)
[2021-02-17 22:42] LABS: Troponin I 0.03 ng/mL (<0.03)
[2021-02-18] MEDS ORDERED: Iodixanol (CONTRAST) 320 MG/ML 100 ML SDV IV ONE (00:58)
[2021-02-18] MEDS ORDERED: Dextrose 50% Syringe 50 ml 25 GM/50 ML SYRINGE IV PUSH PRN (01:16)
[2021-02-18] MEDS ORDERED: Albuterol HFA INHALER 8 gm MDI INH PRN (01:19)
[2021-02-18 01:59] LABS: C Reactive Protein 12.14 mg/L (<8.01)
[2021-02-18 02:53] LABS: Erythrocyte Sed Rate 90 mm/Hr (0-29)
[2021-02-18 05:02] LABS: ABS Eosinophils 0.2 10^3/ul (0-0.6); ABS Monocytes 0.7 10^3/ul (0-0.8); ABS Neutrophils 6.8 10^3/ul (1.5-7.7); Eosinophil % 2.3 %; Hematocrit 38 % (35-47); Hemoglobin 12.4 g/dL (12.0-16.0); Lymphocyte % 19.9 %; Mean Corpuscular HGB Conc 33 g/dL (31-36); Mean Corpuscular Hemoglobin 27 pg (27-31); Mean Corpuscular Volume 82 fL (80-97); Mean Platelet Volume 8.3 fL (7.4-10.4); Nucleated Red Blood Cells % 0.1; Platelet Count 297 10^3/uL (150-450); Red Blood Count 4.63 10^6 /uL (3.70-4.87); Red Cell Distribution Width 18 % (10-15); White Blood Count 9.8 10^3/uL (3.5-10.8)
[2021-02-18 05:19] LABS: EGFR African American 47.9 (>60); EGFR Non-African American 39.5 (>60); Potassium 3.7 mmol/L (3.5-5.0)
[2021-02-18] MEDS: SPIRIVA Respimat (tiotropium) 2.5 mcg/inh Inhaler INH SCH (07:56)
[2021-02-18 10:33] LABS: INR 0.93 (0.82-1.09)
[2021-02-18 11:37] LABS: TSH Ultra Thyroid Stim Horm 0.1 mcIU/mL (0.34-5.60)
[2021-02-18 11:39] LABS: Free T4 1.41 ng/dL (0.61-1.12)
[2021-02-18] MEDS ORDERED: Perflutren Lipid Microsphere 3 ML VIAL ONE (14:31)
[2021-02-18 17:43] LABS: Glucose Confirmatory 406 mg/dL (70-100)
[2021-02-18] MEDS ORDERED: Insulin GLARGINE 100 un/ml 10 ml VIAL SUBCUT SCH (21:00)
[2021-02-19] MEDS: SPIRIVA Respimat (tiotropium) 2.5 mcg/inh Inhaler INH SCH (08:08)
[2021-02-19 09:59] LABS: Calcium 8.6 mg/dL (8.6-10.3); EGFR African American 37.9 (>60); EGFR Non-African American 31.3 (>60); Potassium 4.5 mmol/L (3.5-5.0)
[2021-02-19] MEDS ORDERED: Dextrose 50% Syringe 50 ml 25 GM/50 ML SYRINGE IV PUSH PRN (10:15)
[2021-02-19] MEDS: Insulin GLARGINE 100 un/ml 10 ml VIAL SUBCUT SCH (23:46)
[2021-02-20 05:48] LABS: ABS Eosinophils 0.3 10^3/ul (0-0.6); ABS Lymphocytes 1.9 10^3/ul (1.0-4.8); ABS Monocytes 0.6 10^3/ul (0-0.8); ABS Neutrophils 6.5 10^3/ul (1.5-7.7); Eosinophil % 2.8 %; Hematocrit 32 % (35-47); Hemoglobin 10.2 g/dL (12.0-16.0); Lymphocyte % 20.2 %; Mean Corpuscular HGB Conc 32 g/dL (31-36); Mean Corpuscular Hemoglobin 26 pg (27-31); Mean Corpuscular Volume 81 fL (80-97); Mean Platelet Volume 8.6 fL (7.4-10.4); Nucleated Red Blood Cells % 0.1; Platelet Count 259 10^3/uL (150-450); Red Blood Count 3.87 10^6 /uL (3.70-4.87); Red Cell Distribution Width 18 % (10-15); White Blood Count 9.2 10^3/uL (3.5-10.8)
[2021-02-20 06:04] LABS: Calcium 8.2 mg/dL (8.6-10.3); EGFR African American 39.8 (>60); EGFR Non-African American 32.9 (>60); Potassium 4.1 mmol/L (3.5-5.0)
[2021-02-20] MEDS: SPIRIVA Respimat (tiotropium) 2.5 mcg/inh Inhaler INH SCH (07:59)
[2021-02-20 12:10] LABS: Calcium 8.4 mg/dL (8.6-10.3); EGFR African American 43.5 (>60); EGFR Non-African American 35.9 (>60); Potassium 4.1 mmol/L (3.5-5.0)
[2021-02-20 12:12] LABS: Urine Appearance Turbid; Urine Bilirubin Negative (Negative); Urine Blood 1+ (Negative); Urine Color Yellow; Urine Glucose Negative (Negative); Urine Ketones Negative (Negative); Urine Nitrite Negative (Negative); Urine Protein Negative (Negative); Urine Specific Gravity 1.008 (1.002-1.030); Urine Urobilinogen Negative (Negative)
[2021-02-20 12:15] LABS: Urine Bacteria 3+ (Absent); Urine Red Blood Cell Absent (Absent); Urine Squamous Epithelial Cell Present (Absent); Urine White Blood Cell 3+(>20/hpf) (Absent)
[2021-02-20 13:03] LABS: ABS Eosinophils 0.2 10^3/ul (0-0.6); ABS Lymphocytes 1.5 10^3/ul (1.0-4.8); ABS Monocytes 0.6 10^3/ul (0-0.8); ABS Neutrophils 7.4 10^3/ul (1.5-7.7); Eosinophil % 2.5 %; Hematocrit 32 % (35-47); Hemoglobin 10.6 g/dL (12.0-16.0); Lymphocyte % 15.5 %; Mean Corpuscular HGB Conc 33 g/dL (31-36); Mean Corpuscular Hemoglobin 27 pg (27-31); Mean Corpuscular Volume 82 fL (80-97); Mean Platelet Volume 8.6 fL (7.4-10.4); Platelet Count 264 10^3/uL (150-450); Red Blood Count 3.92 10^6 /uL (3.70-4.87); Red Cell Distribution Width 17 % (10-15); White Blood Count 9.8 10^3/uL (3.5-10.8)
[2021-02-20 16:14] LABS: Albumin 3.2 g/dL (3.2-5.2); Albumin/Globulin Ratio 1.1 (1-3); Globulin 2.8 g/dL (2-4); Indirect Bilirubin 0.2 mg/dL (0.3-1.0); Total Bilirubin 0.3 mg/dL (0.2-1.0)
[2021-02-20] MEDS: RIVAROXABAN 2.5 MG PO SCH (21:15)
[2021-02-20] MEDS: Insulin GLARGINE 100 un/ml 10 ml VIAL SUBCUT SCH (23:34)
[2021-02-21] MEDS: SPIRIVA Respimat (tiotropium) 2.5 mcg/inh Inhaler INH SCH (07:39)
[2021-02-21] MEDS: RIVAROXABAN 2.5 MG PO SCH (09:25)
[2021-02-21 10:06] LABS: ABS Basophils 0.1 10^3/ul (0-0.2); ABS Eosinophils 0.2 10^3/ul (0-0.6); ABS Lymphocytes 1.1 10^3/ul (1.0-4.8); ABS Monocytes 0.5 10^3/ul (0-0.8); ABS Neutrophils 6.4 10^3/ul (1.5-7.7); Eosinophil % 2.7 %; Hematocrit 34 % (35-47); Hemoglobin 11.1 g/dL (12.0-16.0); Lymphocyte % 13.4 %; Mean Corpuscular HGB Conc 33 g/dL (31-36); Mean Corpuscular Hemoglobin 27 pg (27-31); Mean Corpuscular Volume 82 fL (80-97); Mean Platelet Volume 8.1 fL (7.4-10.4); Nucleated Red Blood Cells % 0.1; Platelet Count 267 10^3/uL (150-450); Red Blood Count 4.16 10^6 /uL (3.70-4.87); Red Cell Distribution Width 18 % (10-15); White Blood Count 8.4 10^3/uL (3.5-10.8)
[2021-02-21 10:24] LABS: Calcium 8.8 mg/dL (8.6-10.3); EGFR African American 54.1 (>60); EGFR Non-African American 44.7 (>60); Potassium 4.8 mmol/L (3.5-5.0)
[2021-02-21 14:39] VITALS: BP 91/51
== END 2021-02-21 15:35 | disposition home or self-care (01) | DRG 644 ==
LOC: ED 21:04 → MEDTELE 21:04
PROVIDERS: ADMIT Pediatrics; ATTEND Hospitalist

== ENCOUNTER 2021-04-10 12:22 | Inpatient (IN) ==
[2021-04-10] MEDS ORDERED: Furosemide 100 mg/10 ml IV VIAL IV ONE (13:12)
[2021-04-10] MEDS ORDERED: Albuterol HFA INHALER 8 gm MDI INH PRN (13:17)
[2021-04-10] MEDS ORDERED: Buffered Lidocaine 1% SYRIN 1 ml INTRADERM ONE (13:50)
[2021-04-10 14:00] LABS: ABS Basophils 0.1 10^3/ul (0-0.2); ABS Eosinophils 0.3 10^3/ul (0-0.6); ABS Lymphocytes 1.1 10^3/ul (1.0-4.8); ABS Monocytes 0.5 10^3/ul (0-0.8); ABS Neutrophils 7.9 10^3/ul (1.5-7.7); Eosinophil % 2.8 %; Hematocrit 33 % (35-47); Hemoglobin 10.7 g/dL (12.0-16.0); Lymphocyte % 11.4 %; Mean Corpuscular HGB Conc 33 g/dL (31-36); Mean Corpuscular Hemoglobin 27 pg (27-31); Mean Corpuscular Volume 84 fL (80-97); Mean Platelet Volume 8.1 fL (7.4-10.4); Platelet Count 347 10^3/uL (150-450); Red Cell Distribution Width 19 % (10-15); White Blood Count 9.8 10^3/uL (3.5-10.8)
[2021-04-10 14:11] LABS: INR 1.05 (0.82-1.09)
[2021-04-10 14:17] LABS: Albumin/Globulin Ratio 1.1 (1-3); Calcium 9.1 mg/dL (8.6-10.3); EGFR African American 39.2 (>60); EGFR Non-African American 32.4 (>60); Globulin 3.5 g/dL (2-4); Magnesium 2.1 mg/dL (1.9-2.7); Potassium 4.1 mmol/L (3.5-5.0); Total Bilirubin 0.5 mg/dL (0.2-1.0); Total Protein 7.5 g/dL (6.4-8.9)
[2021-04-10 14:18] LABS: Troponin I 0.01 ng/mL (<0.03)
[2021-04-10 14:49] LABS: TSH Ultra Thyroid Stim Horm 1.02 mcIU/mL (0.34-5.60)
[2021-04-10] MEDS: Furosemide 100 mg/10 ml IV 100 MG in NS 0.9% 100 ml BAG 90 ML IV SCH ×2 (17:13→22:23)
[2021-04-10] MEDS: RIVAROXABAN 2.5 MG PO SCH (20:49)
[2021-04-10] MEDS ORDERED: Insulin GLARGINE 100 un/ml 10 ml VIAL SUBCUT SCH (21:00)
[2021-04-11] MEDS: Furosemide 100 mg/10 ml IV 100 MG in NS 0.9% 100 ml BAG 90 ML IV SCH ×5 (05:14→21:00)
[2021-04-11] MEDS: SPIRIVA Respimat (tiotropium) 2.5 mcg/inh Inhaler INH SCH (07:33)
[2021-04-11 09:04] LABS: Albumin 3.5 g/dL (3.2-5.2); EGFR African American 38.4 (>60); EGFR Non-African American 31.7 (>60); Globulin 3.4 g/dL (2-4); Total Bilirubin 0.6 mg/dL (0.2-1.0); Total Protein 6.9 g/dL (6.4-8.9)
[2021-04-11] MEDS: RIVAROXABAN 2.5 MG PO SCH ×2 (09:23→21:28)
[2021-04-11] MEDS ORDERED: Furosemide 100 mg/10 ml IV VIAL ONE (21:21)
[2021-04-11] MEDS: Insulin GLARGINE 100 un/ml 10 ml VIAL SUBCUT SCH (21:51)
[2021-04-12] MEDS ORDERED: Furosemide 100 mg/10 ml IV 100 MG in NS 0.9% 100 ml BAG 90 ML IV SCH ×2
[2021-04-12] MEDS: Furosemide 100 mg/10 ml IV 100 MG in NS 0.9% 100 ml BAG 90 ML IV SCH ×5 (00:15→23:00)
[2021-04-12 04:19] LABS: Calcium 8.8 mg/dL (8.6-10.3); EGFR African American 32.3 (>60); EGFR Non-African American 26.7 (>60); Potassium 4.1 mmol/L (3.5-5.0)
[2021-04-12] MEDS: SPIRIVA Respimat (tiotropium) 2.5 mcg/inh Inhaler INH SCH (07:46)
[2021-04-12] MEDS: RIVAROXABAN 2.5 MG PO SCH ×2 (09:16→21:34)
[2021-04-12 13:49] LABS: Urine Appearance Clear; Urine Bilirubin Negative (Negative); Urine Blood Negative (Negative); Urine Color Straw; Urine Glucose Negative (Negative); Urine Ketones Negative (Negative); Urine Nitrite Negative (Negative); Urine Protein Negative (Negative); Urine Specific Gravity 1.005 (1.002-1.030); Urine Urobilinogen Negative (Negative)
[2021-04-12] MEDS: Insulin GLARGINE 100 un/ml 10 ml VIAL SUBCUT SCH (21:35)
[2021-04-13] MEDS: Furosemide 100 mg/10 ml IV 100 MG in NS 0.9% 100 ml BAG 90 ML IV SCH ×5 (04:33→21:44)
[2021-04-13 05:05] LABS: Calcium 8.6 mg/dL (8.6-10.3); EGFR African American 26.3 (>60); EGFR Non-African American 21.7 (>60); Potassium 4.1 mmol/L (3.5-5.0)
[2021-04-13] MEDS: SPIRIVA Respimat (tiotropium) 2.5 mcg/inh Inhaler INH SCH (07:20)
[2021-04-13] MEDS: RIVAROXABAN 2.5 MG PO SCH ×2 (09:40→20:38)
[2021-04-13] MEDS: Insulin GLARGINE 100 un/ml 10 ml VIAL SUBCUT SCH (20:38)
[2021-04-14] MEDS: Furosemide 100 mg/10 ml IV 100 MG in NS 0.9% 100 ml BAG 90 ML IV SCH ×3 (01:25→21:27)
[2021-04-14 06:36] LABS: Calcium 8.6 mg/dL (8.6-10.3); EGFR African American 23.7 (>60); EGFR Non-African American 19.6 (>60); Potassium 4.3 mmol/L (3.5-5.0)
[2021-04-14] MEDS: SPIRIVA Respimat (tiotropium) 2.5 mcg/inh Inhaler INH SCH (07:57)
[2021-04-14] MEDS: RIVAROXABAN 2.5 MG PO SCH (09:04)
[2021-04-14] MEDS ORDERED: Furosemide 100 mg/10 ml IV VIAL ONE (15:55)
[2021-04-14] MEDS: Insulin GLARGINE 100 un/ml 10 ml VIAL SUBCUT SCH (21:24)
[2021-04-15] MEDS: Furosemide 100 mg/10 ml IV 100 MG in NS 0.9% 100 ml BAG 90 ML IV SCH ×5 (02:18→22:04)
[2021-04-15] MEDS: SPIRIVA Respimat (tiotropium) 2.5 mcg/inh Inhaler INH SCH (08:11)
[2021-04-15 16:44] LABS: Calcium 8.7 mg/dL (8.6-10.3); EGFR African American 26.9 (>60); EGFR Non-African American 22.3 (>60); Potassium 3.9 mmol/L (3.5-5.0)
[2021-04-15] MEDS: Insulin GLARGINE 100 un/ml 10 ml VIAL SUBCUT SCH (20:23)
[2021-04-15] MEDS ORDERED: RIVAROXABAN 2.5 MG PO SCH (21:00)
[2021-04-16] MEDS: Furosemide 100 mg/10 ml IV 100 MG in NS 0.9% 100 ml BAG 90 ML IV SCH ×6 (00:38→20:57)
[2021-04-16 04:18] LABS: ABS Basophils 0.1 10^3/ul (0-0.2); ABS Eosinophils 0.2 10^3/ul (0-0.6); ABS Lymphocytes 1.4 10^3/ul (1.0-4.8); ABS Monocytes 0.7 10^3/ul (0-0.8); ABS Neutrophils 7.2 10^3/ul (1.5-7.7); Eosinophil % 2.3 %; Hematocrit 29 % (35-47); Hemoglobin 9.6 g/dL (12.0-16.0); Lymphocyte % 14.5 %; Mean Corpuscular HGB Conc 33 g/dL (31-36); Mean Corpuscular Hemoglobin 27 pg (27-31); Mean Corpuscular Volume 82 fL (80-97); Mean Platelet Volume 8.1 fL (7.4-10.4); Platelet Count 356 10^3/uL (150-450); Red Blood Count 3.59 10^6 /uL (3.70-4.87); Red Cell Distribution Width 19 % (10-15); White Blood Count 9.5 10^3/uL (3.5-10.8)
[2021-04-16 04:32] LABS: Calcium 9.2 mg/dL (8.6-10.3); EGFR African American 24.3 (>60); EGFR Non-African American 20.1 (>60); Magnesium 2.4 mg/dL (1.9-2.7)
[2021-04-16] MEDS: SPIRIVA Respimat (tiotropium) 2.5 mcg/inh Inhaler INH SCH (08:40)
[2021-04-16] MEDS ORDERED: Heparin *DIALYSIS* ONLY 1,000 UNITS/ML VIAL ONE (14:01)
[2021-04-16] MEDS ORDERED: Bupivacaine 0.25% SDV 30 ML ONE (14:01)
[2021-04-16] MEDS ORDERED: ceFAZolin 2 GM PREMIX 2 GM/50 ML BAG ONE (14:45)
[2021-04-16] MEDS ORDERED: DiMENhydriNATE IV 50 mg/ml 1 ml VIAL IV PUSH PRN (15:13)
[2021-04-16] MEDS ORDERED: Naloxone 0.4 mg VIAL 0.4 mg/ml 1 ml VIAL IV PRN (15:13)
[2021-04-16] MEDS ORDERED: Levalbuterol 0.63MG/3ML NEB UNIT OF USE INH PRN (15:13)
[2021-04-16] MEDS ORDERED: Lidocaine 2% PF 5 ML VIAL ONE (15:26)
[2021-04-16] MEDS ORDERED: fentaNYL 100 mcg/2 ml 50 MCG/ML VIAL ONE ×2 (15:26→17:33)
[2021-04-16] MEDS ORDERED: Rocuronium 50 mg VIAL 10 mg/ml 5 ml VIAL (50 mg) ONE ×2 (15:26→16:02)
[2021-04-16] MEDS ORDERED: Phenylephrine 40 mcg/mL 10mL (400mcg) SYRINGE ONE ×2 (15:35→16:32)
[2021-04-16] MEDS ORDERED: Propofol 10 MG/ML 20 ML BTL ONE (15:49)
[2021-04-16] MEDS ORDERED: EPHEDrine (Pressors) 50 MG/ML VIAL ONE (15:56)
[2021-04-16] MEDS ORDERED: Ondansetron 4 mg VIAL 2 MG/ML 2 ml VIAL ONE (17:03)
[2021-04-16] MEDS: fentaNYL 100 mcg/2 ml 50 MCG/ML VIAL IV PRN ×2 (17:34→17:39)
[2021-04-16] MEDS: Insulin GLARGINE 100 un/ml 10 ml VIAL SUBCUT SCH (20:56)
[2021-04-17] MEDS: Furosemide 100 mg/10 ml IV 100 MG in NS 0.9% 100 ml BAG 90 ML IV SCH ×4 (02:40→21:21)
[2021-04-17 05:46] LABS: EGFR African American 27.5 (>60); EGFR Non-African American 22.7 (>60); Magnesium 2.5 mg/dL (1.9-2.7); Potassium 4.1 mmol/L (3.5-5.0)
[2021-04-17] MEDS: SPIRIVA Respimat (tiotropium) 2.5 mcg/inh Inhaler INH SCH (08:15)
[2021-04-17] MEDS ORDERED: Insulin GLARGINE 100 un/ml 10 ml VIAL SUBCUT SCH (21:00)
[2021-04-17] MEDS: RIVAROXABAN 2.5 MG PO SCH (21:17)
[2021-04-18] MEDS: Furosemide 100 mg/10 ml IV 100 MG in NS 0.9% 100 ml BAG 90 ML IV SCH ×3 (03:18→08:48)
[2021-04-18 06:34] LABS: Calcium 9.4 mg/dL (8.6-10.3); EGFR African American 26.9 (>60); EGFR Non-African American 22.3 (>60); Magnesium 2.5 mg/dL (1.9-2.7); Potassium 3.6 mmol/L (3.5-5.0)
[2021-04-18 07:02] LABS: Hepatitis B Surface Antigen Nonreactive (Nonreactive)
[2021-04-18 07:19] LABS: Hepatitis B Surface Ab Not Immune (Immune)
[2021-04-18] MEDS: SPIRIVA Respimat (tiotropium) 2.5 mcg/inh Inhaler INH SCH (07:35)
[2021-04-18] MEDS: RIVAROXABAN 2.5 MG PO SCH (08:46)
[2021-04-18 10:24] VITALS: BP 98/58
== END 2021-04-18 10:55 | disposition home or self-care (01) | DRG 981 ==
LOC: MEDTELE 12:22
PROVIDERS: ADMIT Internal Medicine; ATTEND Hospitalist

== ENCOUNTER 2021-04-27 12:53 | Inpatient (IN) ==
[2021-04-27] MEDS ORDERED: NS 0.9% 1000 ml BAG 1,000 ML IV ONE ×3 (13:16→18:13)
[2021-04-27 13:48] LABS: ABS Basophils 0.1 10^3/ul (0-0.2); ABS Eosinophils 0.2 10^3/ul (0-0.6); ABS Lymphocytes 1.1 10^3/ul (1.0-4.8); ABS Monocytes 0.6 10^3/ul (0-0.8); ABS Neutrophils 13.3 10^3/ul (1.5-7.7); Eosinophil % 1.5 %; Hematocrit 38 % (35-47); Hemoglobin 12.8 g/dL (12.0-16.0); Lymphocyte % 7.1 %; Mean Corpuscular HGB Conc 34 g/dL (31-36); Mean Corpuscular Hemoglobin 27 pg (27-31); Mean Corpuscular Volume 80 fL (80-97); Mean Platelet Volume 8.6 fL (7.4-10.4); Platelet Count 397 10^3/uL (150-450); Red Blood Count 4.78 10^6 /uL (3.70-4.87); Red Cell Distribution Width 19 % (10-15); White Blood Count 15.3 10^3/uL (3.5-10.8)
[2021-04-27 13:56] LABS: Activated Partial Thrombo Time 30.6 seconds (26.0-38.0); INR 1.08 (0.86-1.15)
[2021-04-27] MEDS ORDERED: Dextrose 50% VIAL 50 ml IV PRN (13:57)
[2021-04-27 14:04] LABS: ALT 10 U/L (7-52); Albumin 4.4 g/dL (3.2-5.2); Albumin/Globulin Ratio 1.1 (1-3); Alkaline Phosphatase 168 U/L (35-149); C Reactive Protein 19.38 mg/L (<8.01); CO2 Carbon Dioxide 27 mmol/L (22-32); Calcium 9.8 mg/dL (8.6-10.3); Chloride 86 mmol/L (101-111); EGFR African American 13.4 (>60); Globulin 4.1 g/dL (2-4); Glucose 55 mg/dL (70-100); Lipase 53 U/L (11.0-82.0); Sodium 129 mmol/L (135-145); Total Protein 8.5 g/dL (6.4-8.9)
[2021-04-27 14:08] LABS: AST 17 U/L (13-39); Anion Gap 16 mmol/L (2-11); Potassium 4.1 mmol/L (3.5-5.0)
[2021-04-27 14:13] LABS: Troponin I 0.04 ng/mL (<0.03)
[2021-04-27] MEDS ORDERED: Dextrose 50% Syringe 50 ml 25 GM/50 ML SYRINGE IV PUSH PRN (14:14)
[2021-04-27 14:19] LABS: Blood Urea Nitrogen 137 mg/dL (6-24)
[2021-04-27 16:17] LABS: TSH Ultra Thyroid Stim Horm 4.03 mcIU/mL (0.34-5.60)
[2021-04-27] MEDS ORDERED: Vancomycin 1,000 MG in NS 0.9% 250 ml 250 ML IVPB ONE (16:24)
[2021-04-27] MEDS ORDERED: Piperacillin/Tazobac ADVAN 3.375 GM in NS 0.9% 100 ml BAG 100 ML IVPB ONE (16:24)
[2021-04-27 17:12] LABS: Urine Appearance Clear; Urine Bacteria 1+ (Absent); Urine Bilirubin Negative (Negative); Urine Blood 1+ (Negative); Urine Color Yellow; Urine Glucose 2+(150 mg/dL) (Negative); Urine Ketones Negative (Negative); Urine Nitrite Negative (Negative); Urine Protein Negative (Negative); Urine Red Blood Cell Trace(0-2/hpf) (Absent); Urine Specific Gravity 1.008 (1.002-1.030); Urine Squamous Epithelial Cell Present (Absent); Urine Urobilinogen Negative (Negative); Urine White Blood Cell Trace(0-5/hpf) (Absent)
[2021-04-27] MEDS ORDERED: Albuterol HFA INHALER 8 gm MDI INH PRN (17:15)
[2021-04-27] MEDS ORDERED: Vancomycin per Pharmacy 1 EA NOTE FOLLOW UP SCH (18:00)
[2021-04-27] MEDS ORDERED: Vancomycin 500 MG in NS 0.9% 250 ML IVPB ONE (20:00)
[2021-04-27] MEDS ORDERED: Cefepime 1 GM in Dextrose 1 GM/50 ML BAG IV ONE (21:00)
[2021-04-28] MEDS ORDERED: Benzocaine/Menthol LOZ PO PRN (00:23)
[2021-04-28 04:19] LABS: Albumin 4.1 g/dL (3.2-5.2); Calcium 9.4 mg/dL (8.6-10.3); Magnesium 1.8 mg/dL (1.9-2.7); Potassium 3.4 mmol/L (3.5-5.0); Total Bilirubin 0.5 mg/dL (0.2-1.0)
[2021-04-28 04:21] LABS: ABS Basophils 0.1 10^3/ul (0-0.2); ABS Eosinophils 0.4 10^3/ul (0-0.6); ABS Lymphocytes 1.3 10^3/ul (1.0-4.8); ABS Monocytes 0.8 10^3/ul (0-0.8); ABS Neutrophils 15.8 10^3/ul (1.5-7.7); Eosinophil % 1.9 %; Hematocrit 38 % (35-47); Hemoglobin 12.5 g/dL (12.0-16.0); Lymphocyte % 7.1 %; Mean Corpuscular HGB Conc 33 g/dL (31-36); Mean Corpuscular Hemoglobin 26 pg (27-31); Mean Corpuscular Volume 79 fL (80-97); Mean Platelet Volume 8.5 fL (7.4-10.4); Nucleated Red Blood Cells % 0.1; Platelet Count 345 10^3/uL (150-450); Red Blood Count 4.84 10^6 /uL (3.70-4.87); Red Cell Distribution Width 18 % (10-15); White Blood Count 18.3 10^3/uL (3.5-10.8)
[2021-04-28 04:25] LABS: Albumin/Globulin Ratio 1.1 (1-3); EGFR African American 21.6 (>60); EGFR Non-African American 17.8 (>60); Globulin 3.6 g/dL (2-4); Total Protein 7.7 g/dL (6.4-8.9)
[2021-04-28] MEDS ORDERED: Vancomycin Random Level NOTE FOLLOW UP ONE (06:00)
[2021-04-28] MEDS ORDERED: Magnesium Sulfate 2 gm BAG 2 GM/50 ML BAG IVPB ONE ×2 (07:00→09:01)
[2021-04-28] MEDS ORDERED: KCL 20 MEQ/100 ML IVPREMIX 20 MEQ/100 ML BAG IV ONE (07:32)
[2021-04-28] MEDS ORDERED: KCL 20 MEQ/100 ML IVPREMIX 20 MEQ/100 ML BAG IV SCH (08:00)
[2021-04-28] MEDS: SPIRIVA Respimat (tiotropium) 2.5 mcg/inh Inhaler INH SCH (08:32)
[2021-04-28] MEDS ORDERED: Hydrocortisone INJ 100 MG/2ML 2 ML VIAL IV ONE (09:30)
[2021-04-28] MEDS: NORMOSOL-R pH 7.4 1000 mL BAG 1,000 ML IV SCH (09:30)
[2021-04-28] MEDS ORDERED: Potassium Chlor 20 meq TAB.ER PO ONE (09:48)
[2021-04-28] MEDS: Pantoprazole VIAL 40 MG VIAL IV SCH (10:01)
[2021-04-28] MEDS ORDERED: Perflutren Lipid Microsphere 3 ML VIAL ONE (11:36)
[2021-04-28 13:12] LABS: Glucose Confirmatory 400 mg/dL (70-100)
[2021-04-28] MEDS ORDERED: Insulin GLARGINE 100 un/ml 10 ml VIAL SUBCUT ONE (13:39)
[2021-04-28] MEDS: RIVAROXABAN 2.5 MG PO SCH ×2 (13:43→23:35)
[2021-04-28 17:17] LABS: Glucose Confirmatory 745 mg/dL (70-100)
[2021-04-28] MEDS ORDERED: Dextrose 50% Syringe 50 ml 25 GM/50 ML SYRINGE IV PUSH PRN ×2 (17:36→20:21)
[2021-04-28 17:44] LABS: Vancomycin Random 14.6 mcg/mL
[2021-04-28] MEDS: Hydrocortisone INJ 100 MG/2ML 2 ML VIAL IV SCH (18:01)
[2021-04-28] MEDS ORDERED: Vancomycin 1,250 MG in NS 0.9% 250 ml 250 ML IVPB ONE (18:30)
[2021-04-28] MEDS ORDERED: VANCOMYCIN 1000 MG IVPB ONE (18:30)
[2021-04-28 20:17] LABS: Glucose Confirmatory 758 mg/dL (70-100)
[2021-04-28] MEDS: Cefepime 1 GM in Dextrose 1 GM/50 ML BAG IV SCH (21:59)
[2021-04-28 22:13] LABS: Glucose Confirmatory 521 mg/dL (70-100)
[2021-04-29] MEDS: Hydrocortisone INJ 100 MG/2ML 2 ML VIAL IV SCH (01:09)
[2021-04-29] MEDS ORDERED: Dextrose 50% Syringe 50 ml 25 GM/50 ML SYRINGE IV PUSH PRN ×2 (01:59→21:13)
[2021-04-29] MEDS: NORMOSOL-R pH 7.4 1000 mL BAG 1,000 ML IV SCH (02:31)
[2021-04-29 04:54] LABS: ABS Lymphocytes 0.5 10^3/ul (1.0-4.8); ABS Monocytes 0.3 10^3/ul (0-0.8); ABS Neutrophils 10.6 10^3/ul (1.5-7.7); Hematocrit 33 % (35-47); Hemoglobin 10.9 g/dL (12.0-16.0); Lymphocyte % 4.2 %; Mean Corpuscular HGB Conc 33 g/dL (31-36); Mean Corpuscular Hemoglobin 26 pg (27-31); Mean Corpuscular Volume 78 fL (80-97); Mean Platelet Volume 8.6 fL (7.4-10.4); Platelet Count 325 10^3/uL (150-450); Red Blood Count 4.24 10^6 /uL (3.70-4.87); Red Cell Distribution Width 18 % (10-15); White Blood Count 11.3 10^3/uL (3.5-10.8)
[2021-04-29 05:11] LABS: Albumin 3.7 g/dL (3.2-5.2); Calcium 9.2 mg/dL (8.6-10.3); EGFR African American 29.5 (>60); EGFR Non-African American 24.4 (>60); Globulin 3.3 g/dL (2-4); Magnesium 3.4 mg/dL (1.9-2.7); Potassium 3.7 mmol/L (3.5-5.0)
[2021-04-29 05:12] LABS: Albumin/Globulin Ratio 1.1 (1-3); Total Bilirubin 0.4 mg/dL (0.2-1.0)
[2021-04-29] MEDS: SPIRIVA Respimat (tiotropium) 2.5 mcg/inh Inhaler INH SCH (07:53)
[2021-04-29] MEDS: Pantoprazole VIAL 40 MG VIAL IV SCH (09:33)
[2021-04-29] MEDS: RIVAROXABAN 2.5 MG PO SCH ×3 (09:33→21:43)
[2021-04-29] MEDS ORDERED: Vancomycin Random Level NOTE FOLLOW UP ONE (16:00)
[2021-04-29 17:42] LABS: Glucose Confirmatory 518 mg/dL (70-100)
[2021-04-29 21:07] LABS: Glucose Confirmatory 558 mg/dL (70-100)
[2021-04-29] MEDS: Insulin GLARGINE 100 un/ml 10 ml VIAL SUBCUT SCH (21:43)
[2021-04-29] MEDS: Cefepime 1 GM in Dextrose 1 GM/50 ML BAG IV SCH (21:44)
[2021-04-29 23:23] LABS: Glucose Confirmatory 467 mg/dL (70-100)
[2021-04-30] MEDS ORDERED: Vancomycin 1000 MG in NS 0.9% 250 ML IVPB ONE
[2021-04-30 05:56] LABS: ABS Lymphocytes 1.1 10^3/ul (1.0-4.8); ABS Monocytes 0.8 10^3/ul (0-0.8); ABS Neutrophils 9.7 10^3/ul (1.5-7.7); Eosinophil % 0.1 %; Hematocrit 33 % (35-47); Hemoglobin 10.5 g/dL (12.0-16.0); Lymphocyte % 9.4 %; Mean Corpuscular HGB Conc 32 g/dL (31-36); Mean Corpuscular Hemoglobin 25 pg (27-31); Mean Corpuscular Volume 80 fL (80-97); Mean Platelet Volume 8.5 fL (7.4-10.4); Platelet Count 282 10^3/uL (150-450); Red Blood Count 4.14 10^6 /uL (3.70-4.87); Red Cell Distribution Width 17 % (10-15); White Blood Count 11.6 10^3/uL (3.5-10.8)
[2021-04-30 06:25] LABS: Calcium 9.4 mg/dL (8.6-10.3); EGFR African American 52.5 (>60); EGFR Non-African American 43.4 (>60); Potassium 3.6 mmol/L (3.5-5.0)
[2021-04-30] MEDS: Pantoprazole VIAL 40 MG VIAL IV SCH (08:31)
[2021-04-30] MEDS: RIVAROXABAN 2.5 MG PO SCH ×2 (09:09→21:39)
[2021-04-30] MEDS: SPIRIVA Respimat (tiotropium) 2.5 mcg/inh Inhaler INH SCH (10:04)
[2021-04-30 17:20] LABS: Glucose Confirmatory 455 mg/dL (70-100)
[2021-04-30] MEDS ORDERED: Vancomycin Random Level NOTE FOLLOW UP ONE (18:00)
[2021-04-30 21:07] LABS: Glucose Confirmatory 536 mg/dL (70-100)
[2021-04-30] MEDS: Insulin GLARGINE 100 un/ml 10 ml VIAL SUBCUT SCH (21:39)
[2021-04-30] MEDS: Cefepime 1 GM in Dextrose 1 GM/50 ML BAG IV SCH (21:41)
[2021-05-01] MEDS ORDERED: Vancomycin Random Level NOTE FOLLOW UP ONE (06:00)
[2021-05-01 07:30] LABS: ABS Basophils 0.1 10^3/ul (0-0.2); ABS Eosinophils 0.1 10^3/ul (0-0.6); ABS Lymphocytes 2.7 10^3/ul (1.0-4.8); ABS Monocytes 1.3 10^3/ul (0-0.8); ABS Neutrophils 11.9 10^3/ul (1.5-7.7); Eosinophil % 0.8 %; Hematocrit 36 % (35-47); Hemoglobin 11.8 g/dL (12.0-16.0); Lymphocyte % 16.6 %; Mean Corpuscular HGB Conc 32 g/dL (31-36); Mean Corpuscular Hemoglobin 26 pg (27-31); Mean Corpuscular Volume 79 fL (80-97); Mean Platelet Volume 8.2 fL (7.4-10.4); Platelet Count 326 10^3/uL (150-450); Red Blood Count 4.58 10^6 /uL (3.70-4.87); Red Cell Distribution Width 17 % (10-15); White Blood Count 16.1 10^3/uL (3.5-10.8)
[2021-05-01 07:47] LABS: Albumin 4.1 g/dL (3.2-5.2); Albumin/Globulin Ratio 1.1 (1-3); C Reactive Protein 7.61 mg/L (<8.01); EGFR African American 38.3 (>60); EGFR Non-African American 31.6 (>60); Globulin 3.7 g/dL (2-4); Magnesium 2.3 mg/dL (1.9-2.7); Potassium 3.5 mmol/L (3.5-5.0); Total Bilirubin 0.4 mg/dL (0.2-1.0); Total Protein 7.8 g/dL (6.4-8.9)
[2021-05-01 08:36] LABS: Vancomycin Random 18.9 mcg/mL
[2021-05-01] MEDS: RIVAROXABAN 2.5 MG PO SCH (08:50)
[2021-05-01] MEDS ORDERED: Cosyntropin 0.25 MG VIAL IV ONE (09:00)
[2021-05-01] MEDS: SPIRIVA Respimat (tiotropium) 2.5 mcg/inh Inhaler INH SCH (10:10)
[2021-05-01 15:58] VITALS: BP 95/62
[2021-05-01] MEDS ORDERED: Insulin GLARGINE 100 un/ml 10 ml VIAL SUBCUT SCH (21:00)
[2021-05-01] MEDS ORDERED: Amoxicillin/Clavul 500/125 TAB (Augmentin 500 mg tab) PO SCH (21:00)
== END 2021-05-01 15:15 | disposition home or self-care (01) | DRG 871 ==
LOC: ED 12:53 → ICU 19:39 → MEDTELE 04-29 16:34
PROVIDERS: ADMIT Hospitalist; ATTEND Internal Medicine

== ENCOUNTER 2021-05-03 19:51 | Inpatient (IN) ==
[2021-05-03 23:54] LABS: ABS Basophils 0.1 10^3/ul (0-0.2); ABS Eosinophils 0.4 10^3/ul (0-0.6); ABS Lymphocytes 2.1 10^3/ul (1.0-4.8); ABS Monocytes 0.9 10^3/ul (0-0.8); ABS Neutrophils 15.9 10^3/ul (1.5-7.7); ABS Nucleated RBC 0.1 10^3/ul; Eosinophil % 1.8 %; Hematocrit 46 % (35-47); Hemoglobin 14.8 g/dL (12.0-16.0); Lymphocyte % 10.8 %; Mean Corpuscular HGB Conc 32 g/dL (31-36); Mean Corpuscular Hemoglobin 25 pg (27-31); Mean Corpuscular Volume 79 fL (80-97); Mean Platelet Volume 9.2 fL (7.4-10.4); Nucleated Red Blood Cells % 0.2; Platelet Count 328 10^3/uL (150-450); Red Blood Count 5.83 10^6 /uL (3.70-4.87); Red Cell Distribution Width 17 % (10-15); White Blood Count 19.4 10^3/uL (3.5-10.8)
[2021-05-04 00:11] LABS: ALT 12 U/L (7-52); AST 14 U/L (13-39); Albumin 4.7 g/dL (3.2-5.2); Albumin/Globulin Ratio 1.1 (1-3); Alcohol, S < 10 mg/dL (<10); Alkaline Phosphatase 182 U/L (35-149); Anion Gap 12 mmol/L (2-11); Blood Urea Nitrogen 94 mg/dL (6-24); C Reactive Protein 21.37 mg/L (<8.01); CO2 Carbon Dioxide 32 mmol/L (22-32); Calcium 10.8 mg/dL (8.6-10.3); Chloride 89 mmol/L (101-111); Creatine Kinase 44 U/L (10-223); EGFR Non-African American 24.8 (>60); Globulin 4.3 g/dL (2-4); Glucose 166 mg/dL (70-100); Potassium 4.1 mmol/L (3.5-5.0); Sodium 133 mmol/L (135-145)
[2021-05-04 00:17] LABS: INR 1.06 (0.86-1.15)
[2021-05-04 00:18] LABS: Troponin I 0.04 ng/mL (<0.03)
[2021-05-04 00:25] LABS: TSH Ultra Thyroid Stim Horm 0.45 mcIU/mL (0.34-5.60)
[2021-05-04] MEDS ORDERED: Lactated Ringers 1000 ml BAG 1,000 ML IV ONE (00:38)
[2021-05-04] MEDS ORDERED: Vancomycin 1,000 MG in NS 0.9% 250 ml 250 ML IVPB ONE ×2 (00:38→01:13)
[2021-05-04] MEDS ORDERED: Cefepime 1 GM IV - ED ONCE IV ONE (01:00)
[2021-05-04] MEDS ORDERED: Dextrose 50% Syringe 50 ml 25 GM/50 ML SYRINGE IV PUSH PRN (01:13)
[2021-05-04] MEDS ORDERED: Albuterol HFA INHALER 8 gm MDI INH PRN (01:17)
[2021-05-04] MEDS ORDERED: Vancomycin per Pharmacy 1 EA NOTE FOLLOW UP SCH (02:00)
[2021-05-04] MEDS ORDERED: Cefepime 2 GM in Dextrose 2 GM/50 ML BAG IV SCH (02:00)
[2021-05-04 02:04] LABS: Urine Appearance Cloudy; Urine Bilirubin Negative (Negative); Urine Blood 1+ (Negative); Urine Color Yellow; Urine Glucose 3+(>=500 mg/dL) (Negative); Urine Ketones Negative (Negative); Urine Nitrite Negative (Negative); Urine Protein 2+(100 mg/dL) (Negative); Urine Urobilinogen Negative (Negative)
[2021-05-04 02:09] LABS: Urine Bacteria Absent (Absent); Urine Red Blood Cell 1+(3-5/hpf) (Absent); Urine Squamous Epithelial Cell Present (Absent); Urine White Blood Cell 3+(>20/hpf) (Absent); Urine Yeast Present (Absent)
[2021-05-04 02:19] LABS: Urine Benzodiazepine Screen None Detected (None Detect); Urine Cannabinoids Screen None Detected (None Detect); Urine Opiates Screen None Detected (None Detect)
[2021-05-04 04:16] LABS: Influenza A Molecular Negative (Negative); Influenza B Molecular Negative (Negative)
[2021-05-04] MEDS ORDERED: Heparin 5000 UNITS/ML 1 mL VIAL SUBCUT SCH (06:00)
[2021-05-04] MEDS: NS 0.9% 1000 ml BAG 1,000 ML IV SCH ×2 (06:06→17:20)
[2021-05-04 06:25] LABS: ABS Basophils 0.1 10^3/ul (0-0.2); ABS Eosinophils 0.4 10^3/ul (0-0.6); ABS Lymphocytes 2.7 10^3/ul (1.0-4.8); ABS Monocytes 0.9 10^3/ul (0-0.8); ABS Neutrophils 15.5 10^3/ul (1.5-7.7); Eosinophil % 2.2 %; Hematocrit 39 % (35-47); Hemoglobin 12.8 g/dL (12.0-16.0); Lymphocyte % 13.8 %; Mean Corpuscular HGB Conc 33 g/dL (31-36); Mean Corpuscular Hemoglobin 26 pg (27-31); Mean Corpuscular Volume 78 fL (80-97); Mean Platelet Volume 9.2 fL (7.4-10.4); Platelet Count 289 10^3/uL (150-450); Red Blood Count 4.97 10^6 /uL (3.70-4.87); Red Cell Distribution Width 17 % (10-15); White Blood Count 19.6 10^3/uL (3.5-10.8)
[2021-05-04 06:42] LABS: Calcium 9.8 mg/dL (8.6-10.3); EGFR African American 37.7 (>60); EGFR Non-African American 31.2 (>60); Potassium 3.3 mmol/L (3.5-5.0)
[2021-05-04 06:46] LABS: Troponin I 0.03 ng/mL (<0.03)
[2021-05-04] MEDS ORDERED: Potassium Chlor 20 meq TAB.ER PO ONE (07:01)
[2021-05-04] MEDS: SPIRIVA Respimat (tiotropium) 2.5 mcg/inh Inhaler INH SCH (07:10)
[2021-05-04] MEDS: RIVAROXABAN 2.5 MG PO SCH ×2 (08:46→21:11)
[2021-05-04] MEDS ORDERED: RIVAROXABAN 2.5 MG PO SCH ×2 (09:00)
[2021-05-04] MEDS ORDERED: Piperacillin/Tazobac ADVAN 3.375 GM in NS 0.9% 100 ml BAG 100 ML IV ONE (12:30)
[2021-05-04] MEDS ORDERED: Zosyn per Pharmacy NOTE FOLLOW UP SCH (13:00)
[2021-05-04] MEDS ORDERED: Cefepime ADVAN 1 GM in NS 0.9% 50 ML 50 ML IVPB SCH (13:00)
[2021-05-04] MEDS: ZOSYN 3.375 GM Q8H per EXTENDED INFUSION IV SCH (17:20)
[2021-05-04 22:49] LABS: Urine Creatinine Concentration 54.94 mg/dL
[2021-05-05] MEDS: ZOSYN 3.375 GM Q8H per EXTENDED INFUSION IV SCH ×3 (00:39→16:17)
[2021-05-05] MEDS ORDERED: Cefepime 1 GM in Dextrose 1 GM/50 ML BAG IV SCH (02:00)
[2021-05-05] MEDS ORDERED: Vancomycin Random Level NOTE FOLLOW UP ONE (05:30)
[2021-05-05 06:51] LABS: ABS Eosinophils 0.4 10^3/ul (0-0.6); ABS Lymphocytes 1.5 10^3/ul (1.0-4.8); ABS Monocytes 0.7 10^3/ul (0-0.8); ABS Neutrophils 9.2 10^3/ul (1.5-7.7); Hematocrit 33 % (35-47); Hemoglobin 10.7 g/dL (12.0-16.0); Mean Corpuscular HGB Conc 32 g/dL (31-36); Mean Corpuscular Hemoglobin 26 pg (27-31); Mean Corpuscular Volume 79 fL (80-97); Mean Platelet Volume 9.5 fL (7.4-10.4); Platelet Count 234 10^3/uL (150-450); Red Blood Count 4.15 10^6 /uL (3.70-4.87); Red Cell Distribution Width 17 % (10-15); White Blood Count 11.8 10^3/uL (3.5-10.8)
[2021-05-05 07:05] LABS: Calcium 8.8 mg/dL (8.6-10.3); EGFR African American 46.1 (>60); EGFR Non-African American 38.1 (>60); Magnesium 1.8 mg/dL (1.9-2.7); Potassium 4.4 mmol/L (3.5-5.0); Vancomycin Random 11.8 mcg/mL
[2021-05-05] MEDS: SPIRIVA Respimat (tiotropium) 2.5 mcg/inh Inhaler INH SCH (07:30)
[2021-05-05] MEDS ORDERED: Magnesium Sulfate 2 gm BAG 2 GM/50 ML BAG IVPB ONE (07:55)
[2021-05-05] MEDS: RIVAROXABAN 2.5 MG PO SCH ×2 (08:35→20:38)
[2021-05-05] MEDS ORDERED: Vancomycin 1,250 MG in NS 0.9% 250 ml 250 ML IVPB SCH (09:30)
[2021-05-05 11:07] LABS: Ferritin 20.4 ng/mL (11-307)
[2021-05-05 16:16] LABS: Body Fluid Source Peritonial Fluid
[2021-05-05 17:58] LABS: Hematocrit 37 % (35-47); Hemoglobin 11.5 g/dL (12.0-16.0)
[2021-05-05 21:45] LABS: Body Fluid Band 1 %; Body Fluid Mono 2 %; Body Fluid Total Cells Counted 200; Body Fluid WBC 926 /mcL
[2021-05-05 21:46] LABS: Body Fluid Appearance Cloudy; Body Fluid Color Yellow
[2021-05-06] MEDS: ZOSYN 3.375 GM Q8H per EXTENDED INFUSION IV SCH ×3 (01:16→17:12)
[2021-05-06] MEDS: SPIRIVA Respimat (tiotropium) 2.5 mcg/inh Inhaler INH SCH (07:06)
[2021-05-06 07:40] LABS: Glucose Confirmatory 400 mg/dL (70-100)
[2021-05-06] MEDS: RIVAROXABAN 2.5 MG PO SCH ×2 (07:58→22:02)
[2021-05-07] MEDS: ZOSYN 3.375 GM Q8H per EXTENDED INFUSION IV SCH ×3 (00:37→16:44)
[2021-05-07 08:30] LABS: Hematocrit 33 % (35-47); Hemoglobin 10.5 g/dL (12.0-16.0); Mean Corpuscular HGB Conc 32 g/dL (31-36); Mean Corpuscular Hemoglobin 25 pg (27-31); Mean Corpuscular Volume 80 fL (80-97); Mean Platelet Volume 8.9 fL (7.4-10.4); Platelet Count 237 10^3/uL (150-450); Red Blood Count 4.12 10^6 /uL (3.70-4.87); Red Cell Distribution Width 17 % (10-15); White Blood Count 10.9 10^3/uL (3.5-10.8)
[2021-05-07] MEDS: RIVAROXABAN 2.5 MG PO SCH (08:39)
[2021-05-07 08:45] LABS: Calcium 9.1 mg/dL (8.6-10.3); EGFR African American 48.9 (>60); EGFR Non-African American 40.4 (>60)
[2021-05-07] MEDS: SPIRIVA Respimat (tiotropium) 2.5 mcg/inh Inhaler INH SCH (08:59)
[2021-05-07] MEDS ORDERED: Vancomycin Trough Check NOTE FOLLOW UP ONE (09:00)
[2021-05-07] MEDS ORDERED: Heparin 5000 UNITS/ML 1 mL VIAL SUBCUT ONE (16:17)
[2021-05-07] MEDS ORDERED: Vancomycin 1,500 MG in NS 0.9% 250 ml 250 ML IVPB ONE (16:30)
[2021-05-07] MEDS ORDERED: Vancomycin per Pharmacy 1 EA NOTE FOLLOW UP PRN (18:04)
[2021-05-07] MEDS ORDERED: Senna TAB 8.6 mg TAB PO PRN (23:42)
[2021-05-08] MEDS: ZOSYN 3.375 GM Q8H per EXTENDED INFUSION IV SCH ×3 (00:34→17:31)
[2021-05-08 05:22] LABS: Hematocrit 31 % (35-47); Hemoglobin 9.9 g/dL (12.0-16.0); Mean Corpuscular HGB Conc 32 g/dL (31-36); Mean Corpuscular Hemoglobin 26 pg (27-31); Mean Corpuscular Volume 80 fL (80-97); Mean Platelet Volume 9.2 fL (7.4-10.4); Platelet Count 229 10^3/uL (150-450); Red Blood Count 3.83 10^6 /uL (3.70-4.87); Red Cell Distribution Width 17 % (10-15); White Blood Count 9.6 10^3/uL (3.5-10.8)
[2021-05-08 05:38] LABS: Calcium 8.6 mg/dL (8.6-10.3); EGFR African American 48.5 (>60); EGFR Non-African American 40.1 (>60); Potassium 3.7 mmol/L (3.5-5.0)
[2021-05-08] MEDS ORDERED: Vancomycin 500 MG in NS 0.9% 250 ML IVPB SCH (06:00)
[2021-05-08] MEDS: SPIRIVA Respimat (tiotropium) 2.5 mcg/inh Inhaler INH SCH (07:05)
[2021-05-08 12:24] LABS: Body Fluid Source Peritonial Fluid
[2021-05-08 12:58] LABS: Body Fluid WBC 339 /mcL
[2021-05-08] MEDS ORDERED: Vancomycin Random Level NOTE FOLLOW UP ONE (14:00)
[2021-05-08 14:33] LABS: Body Fluid Appearance Clear; Body Fluid Mono 50 %; Body Fluid NRBC 1; Body Fluid Total Cells Counted 200
[2021-05-08 14:37] LABS: Body Fluid Color Yellow
[2021-05-08 17:08] VITALS: BP 110/70
[2021-05-08] MEDS ORDERED: Vancomycin 750 MG in NS 0.9% 250 ML IVPB ONE (18:00)
[2021-05-09] MEDS ORDERED: Vancomycin Trough Check NOTE FOLLOW UP ONE (05:30)
[2021-05-09] MEDS ORDERED: Vancomycin Random Level NOTE FOLLOW UP ONE (06:00)
== END 2021-05-08 18:15 | disposition home or self-care (01) | DRG 314 ==
LOC: ED 19:51 → MED 05-04 01:09
PROVIDERS: ADMIT Internal Medicine; ATTEND Hospitalist

== ENCOUNTER 2021-06-03 15:38 | Inpatient (IN) ==
[2021-06-03 18:29] LABS: ABS Basophils 0.1 10^3/ul (0-0.2); ABS Eosinophils 0.2 10^3/ul (0-0.6); ABS Lymphocytes 1.3 10^3/ul (1.0-4.8); ABS Monocytes 0.7 10^3/ul (0-0.8); ABS Neutrophils 9.1 10^3/ul (1.5-7.7); Eosinophil % 1.9 %; Hematocrit 33 % (35-47); Hemoglobin 10.4 g/dL (12.0-16.0); Lymphocyte % 11.2 %; Mean Corpuscular HGB Conc 31 g/dL (31-36); Mean Corpuscular Hemoglobin 24 pg (27-31); Mean Corpuscular Volume 77 fL (80-97); Mean Platelet Volume 8.9 fL (7.4-10.4); Nucleated Red Blood Cells % 0.1; Platelet Count 346 10^3/uL (150-450); Red Cell Distribution Width 18 % (10-15); White Blood Count 11.4 10^3/uL (3.5-10.8)
[2021-06-03 18:54] LABS: Albumin 3.8 g/dL (3.2-5.2); Albumin/Globulin Ratio 1.1 (1-3); C Reactive Protein 109.02 mg/L (<8.01); Calcium 9.1 mg/dL (8.6-10.3); EGFR African American 29.7 (>60); EGFR Non-African American 24.5 (>60); Globulin 3.5 g/dL (2-4); Potassium 3.4 mmol/L (3.5-5.0); Total Bilirubin 0.5 mg/dL (0.2-1.0); Total Protein 7.3 g/dL (6.4-8.9)
[2021-06-03 20:06] LABS: Urine Appearance Cloudy; Urine Bilirubin Negative (Negative); Urine Blood 1+ (Negative); Urine Color Yellow; Urine Glucose 3+(>=500 mg/dL) (Negative); Urine Ketones Negative (Negative); Urine Nitrite Negative (Negative); Urine Protein Negative (Negative); Urine Specific Gravity 1.006 (1.002-1.030); Urine Urobilinogen Negative (Negative)
[2021-06-03 20:10] LABS: Urine Bacteria 1+ (Absent); Urine Red Blood Cell 2+(6-10/hpf) (Absent); Urine Squamous Epithelial Cell Present (Absent); Urine White Blood Cell 3+(>20/hpf) (Absent); Urine Yeast Present (Absent)
[2021-06-03] MEDS ORDERED: cefTRIAXone 1 gm/50 mL NS BAG 1 GM/50 ML BAG IV ONE (21:32)
[2021-06-04] MEDS ORDERED: Albuterol HFA INHALER 8 gm MDI INH PRN (02:55)
[2021-06-04 03:43] LABS: Troponin I 0.01 ng/mL (<0.03)
[2021-06-04] MEDS ORDERED: Cefepime 1 GM IV - ED ONCE IV ONE (04:30)
[2021-06-04] MEDS ORDERED: Dextrose 50% Syringe 50 ml 25 GM/50 ML SYRINGE IV PUSH PRN (05:49)
[2021-06-04] MEDS: Cefepime 1 GM in Dextrose 1 GM/50 ML BAG IV SCH ×2 (05:53→18:52)
[2021-06-04] MEDS ORDERED: Heparin 5000 UNITS/ML 1 mL VIAL SUBCUT ONE (07:51)
[2021-06-04] MEDS: Tiotropium Brom/Olodaterol MDI INH SCH (07:56)
[2021-06-04 08:14] LABS: Hematocrit 32 % (35-47); Mean Corpuscular HGB Conc 32 g/dL (31-36); Mean Corpuscular Hemoglobin 25 pg (27-31); Mean Corpuscular Volume 78 fL (80-97); Platelet Count 301 10^3/uL (150-450); Red Blood Count 4.07 10^6 /uL (3.70-4.87); Red Cell Distribution Width 18 % (10-15); White Blood Count 9.2 10^3/uL (3.5-10.8)
[2021-06-04 08:31] LABS: C Reactive Protein 83.19 mg/L (<8.01); Magnesium 2.1 mg/dL (1.9-2.7); Potassium 3.5 mmol/L (3.5-5.0)
[2021-06-04] MEDS ORDERED: Insulin GLARGINE 100 un/ml 10 ml VIAL SUBCUT SCH (09:00)
[2021-06-04 09:16] LABS: Calcium 8.2 mg/dL (8.6-10.3)
[2021-06-04 09:21] LABS: EGFR African American 33.6 (>60); EGFR Non-African American 27.8 (>60)
[2021-06-04] MEDS: metroNIDAZOLE IV 500 MG/100ML 500 MG/100 ML BAG IVPB SCH ×3 (10:18→21:51)
[2021-06-04 12:05] LABS: Glucose Confirmatory 463 mg/dL (70-100)
[2021-06-04 17:05] LABS: Glucose Confirmatory 414 mg/dL (70-100)
[2021-06-04] MEDS ORDERED: Insulin GLARGINE 100 un/ml 10 ml VIAL SUBCUT ONE (21:00)
[2021-06-05 05:43] LABS: ABS Basophils 0.1 10^3/ul (0-0.2); ABS Eosinophils 0.2 10^3/ul (0-0.6); ABS Monocytes 0.7 10^3/ul (0-0.8); Eosinophil % 1.8 %; Hematocrit 30 % (35-47); Hemoglobin 9.2 g/dL (12.0-16.0); Lymphocyte % 11.4 %; Mean Corpuscular HGB Conc 31 g/dL (31-36); Mean Corpuscular Hemoglobin 24 pg (27-31); Mean Corpuscular Volume 77 fL (80-97); Mean Platelet Volume 8.8 fL (7.4-10.4); Platelet Count 294 10^3/uL (150-450); Red Blood Count 3.85 10^6 /uL (3.70-4.87); Red Cell Distribution Width 18 % (10-15)
[2021-06-05] MEDS: Cefepime 1 GM in Dextrose 1 GM/50 ML BAG IV SCH ×2 (05:44→17:46)
[2021-06-05 06:11] LABS: Calcium 8.1 mg/dL (8.6-10.3); EGFR Non-African American 35.5 (>60); Potassium 3.4 mmol/L (3.5-5.0)
[2021-06-05] MEDS: metroNIDAZOLE IV 500 MG/100ML 500 MG/100 ML BAG IVPB SCH ×3 (07:30→21:22)
[2021-06-05] MEDS: Tiotropium Brom/Olodaterol MDI INH SCH (09:42)
[2021-06-05] MEDS ORDERED: Insulin GLARGINE 100 un/ml 10 ml VIAL SUBCUT SCH ×2 (21:00)
[2021-06-06] MEDS: Cefepime 1 GM in Dextrose 1 GM/50 ML BAG IV SCH (05:10)
[2021-06-06 05:28] LABS: ABS Eosinophils 0.2 10^3/ul (0-0.6); ABS Lymphocytes 1.1 10^3/ul (1.0-4.8); ABS Monocytes 0.7 10^3/ul (0-0.8); ABS Neutrophils 8.1 10^3/ul (1.5-7.7); Eosinophil % 2.2 %; Hematocrit 30 % (35-47); Hemoglobin 9.3 g/dL (12.0-16.0); Lymphocyte % 10.6 %; Mean Corpuscular HGB Conc 31 g/dL (31-36); Mean Corpuscular Hemoglobin 24 pg (27-31); Mean Corpuscular Volume 77 fL (80-97); Mean Platelet Volume 8.9 fL (7.4-10.4); Nucleated Red Blood Cells % 0.1; Platelet Count 311 10^3/uL (150-450); Red Cell Distribution Width 19 % (10-15); White Blood Count 10.1 10^3/uL (3.5-10.8)
[2021-06-06 05:50] LABS: Calcium 8.4 mg/dL (8.6-10.3); EGFR Non-African American 37.2 (>60); Magnesium 1.9 mg/dL (1.9-2.7); Potassium 3.5 mmol/L (3.5-5.0)
[2021-06-06] MEDS: metroNIDAZOLE IV 500 MG/100ML 500 MG/100 ML BAG IVPB SCH (06:05)
[2021-06-06] MEDS: Tiotropium Brom/Olodaterol MDI INH SCH (07:18)
[2021-06-06 15:41] VITALS: BP 94/68
== END 2021-06-06 17:30 | disposition home or self-care (01) | DRG 605 ==
LOC: ED 15:38 → MEDTELE 06-04 05:42
PROVIDERS: ADMIT Internal Medicine; ATTEND Internal Medicine

== ENCOUNTER 2021-06-14 13:44 | Inpatient (IN) ==
[2021-06-14 15:19] LABS: ABS Eosinophils 0.1 10^3/ul (0-0.6); ABS Lymphocytes 0.9 10^3/ul (1.0-4.8); ABS Monocytes 0.4 10^3/ul (0-0.8); ABS Neutrophils 9.4 10^3/ul (1.5-7.7); Eosinophil % 1.2 %; Hematocrit 32 % (35-47); Hemoglobin 10.1 g/dL (12.0-16.0); Lymphocyte % 8.4 %; Mean Corpuscular HGB Conc 31 g/dL (31-36); Mean Corpuscular Hemoglobin 24 pg (27-31); Mean Corpuscular Volume 75 fL (80-97); Mean Platelet Volume 8.2 fL (7.4-10.4); Nucleated Red Blood Cells % 0.1; Platelet Count 425 10^3/uL (150-450); Red Blood Count 4.29 10^6 /uL (3.70-4.87); Red Cell Distribution Width 19 % (10-15)
[2021-06-14 15:27] LABS: INR 1.08 (0.86-1.15)
[2021-06-14 15:43] LABS: ALT 8 U/L (7-52); AST 10 U/L (13-39); Albumin 3.7 g/dL (3.2-5.2); Albumin/Globulin Ratio 1.1 (1-3); Alkaline Phosphatase 176 U/L (35-149); Anion Gap 9 mmol/L (2-11); Blood Urea Nitrogen 31 mg/dL (6-24); CO2 Carbon Dioxide 31 mmol/L (22-32); Calcium 9.1 mg/dL (8.6-10.3); Chloride 98 mmol/L (101-111); EGFR Non-African American 46.3 (>60); Globulin 3.5 g/dL (2-4); Glucose 422 mg/dL (70-100); Potassium 4.2 mmol/L (3.5-5.0); Sodium 138 mmol/L (135-145); Total Protein 7.2 g/dL (6.4-8.9)
[2021-06-14 15:50] LABS: Troponin I 0.03 ng/mL (<0.03)
[2021-06-14] MEDS: KCL 10 MEQ/50 ML IVPREMIX 10 MEQ/50 ML BAG IV ONE ×2 (17:30→17:49)
[2021-06-14] MEDS: Heparin DRIP 25,000 UNITS BAG 25,000 UNITS/500 ML BAG IV SCH ×2 (17:59→18:13)
[2021-06-14] MEDS ORDERED: Albuterol HFA INHALER 8 gm MDI INH PRN (18:15)
[2021-06-14 18:46] LABS: Blood Urea Nitrogen 32 mg/dL (6-24); EGFR African American 61.3 (>60); EGFR Non-African American 50.7 (>60)
[2021-06-14 18:49] LABS: Troponin I 0.03 ng/mL (<0.03)
[2021-06-14] MEDS ORDERED: Dextrose 50% Syringe 50 ml 25 GM/50 ML SYRINGE IV PUSH PRN (20:46)
[2021-06-14 21:05] LABS: ABS Basophils 0.1 10^3/ul (0-0.2); ABS Eosinophils 0.2 10^3/ul (0-0.6); ABS Lymphocytes 1.3 10^3/ul (1.0-4.8); ABS Monocytes 0.6 10^3/ul (0-0.8); ABS Neutrophils 8.4 10^3/ul (1.5-7.7); Eosinophil % 1.8 %; Hematocrit 32 % (35-47); Hemoglobin 9.8 g/dL (12.0-16.0); Lymphocyte % 11.9 %; Mean Corpuscular HGB Conc 31 g/dL (31-36); Mean Corpuscular Hemoglobin 23 pg (27-31); Mean Corpuscular Volume 75 fL (80-97); Mean Platelet Volume 8.2 fL (7.4-10.4); Platelet Count 430 10^3/uL (150-450); Red Blood Count 4.24 10^6 /uL (3.70-4.87); Red Cell Distribution Width 19 % (10-15); White Blood Count 10.5 10^3/uL (3.5-10.8)
[2021-06-14 21:28] LABS: Troponin I 0.04 ng/mL (<0.03)
[2021-06-14 23:48] LABS: Troponin I 0.03 ng/mL (<0.03)
[2021-06-14 23:49] LABS: Glucose Confirmatory 536 mg/dL (70-100)
[2021-06-14] MEDS ORDERED: Insulin GLARGINE 100 un/ml 10 ml VIAL SUBCUT ONE (23:51)
[2021-06-15] MEDS: Heparin 5000 UNITS/ML 1 mL VIAL IV SCH ×2 (00:15→11:05)
[2021-06-15] MEDS: Heparin DRIP 25,000 UNITS BAG 25,000 UNITS/500 ML BAG IV SCH ×3 (00:15→20:36)
[2021-06-15 07:43] LABS: ABS Basophils 0.1 10^3/ul (0-0.2); ABS Eosinophils 0.2 10^3/ul (0-0.6); ABS Lymphocytes 1.2 10^3/ul (1.0-4.8); ABS Monocytes 0.7 10^3/ul (0-0.8); ABS Neutrophils 8.2 10^3/ul (1.5-7.7); Eosinophil % 2.3 %; Hematocrit 30 % (35-47); Hemoglobin 9.1 g/dL (12.0-16.0); Mean Corpuscular HGB Conc 30 g/dL (31-36); Mean Corpuscular Hemoglobin 23 pg (27-31); Mean Corpuscular Volume 78 fL (80-97); Mean Platelet Volume 8.4 fL (7.4-10.4); Platelet Count 373 10^3/uL (150-450); Red Blood Count 3.89 10^6 /uL (3.70-4.87); Red Cell Distribution Width 19 % (10-15); White Blood Count 10.4 10^3/uL (3.5-10.8)
[2021-06-15 07:49] LABS: Calcium 8.5 mg/dL (8.6-10.3); EGFR African American 64.7 (>60); EGFR Non-African American 53.4 (>60); Potassium 3.6 mmol/L (3.5-5.0)
[2021-06-15] MEDS: SPIRIVA Respimat (tiotropium) 2.5 mcg/inh Inhaler INH SCH (07:49)
[2021-06-15 08:07] LABS: TSH Ultra Thyroid Stim Horm 0.72 mcIU/mL (0.34-5.60)
[2021-06-15] MEDS ORDERED: Dextrose 50% Syringe 50 ml 25 GM/50 ML SYRINGE IV PUSH PRN (09:06)
[2021-06-15] MEDS ORDERED: Insulin GLARGINE 100 un/ml 10 ml VIAL SUBCUT SCH (21:00)
[2021-06-16 07:37] LABS: Hematocrit 26 % (35-47); Hemoglobin 8.4 g/dL (12.0-16.0); Mean Platelet Volume 8.4 fL (7.4-10.4); Platelet Count 345 10^3/uL (150-450); Red Blood Count 3.54 10^6 /uL (3.70-4.87); Red Cell Distribution Width 19 % (10-15); White Blood Count 10.6 10^3/uL (3.5-10.8)
[2021-06-16 07:46] LABS: Calcium 8.1 mg/dL (8.6-10.3); EGFR African American 49.3 (>60); EGFR Non-African American 40.8 (>60); Potassium 3.3 mmol/L (3.5-5.0)
[2021-06-16 08:50] LABS: Microcytosis 2+
[2021-06-16 08:51] LABS: Anisocytosis 1+
[2021-06-16 08:52] LABS: Hypochromasia 1+
[2021-06-16 08:53] LABS: ABS Basophils 0.1 10^3/ul (0-0.2); ABS Eosinophils 0.4 10^3/ul (0-0.6); ABS Lymphocytes 1.8 10^3/ul (1.0-4.8); ABS Monocytes 0.6 10^3/ul (0-0.8); ABS Neutrophils 7.8 10^3/ul (1.5-7.7); Eosinophil % 3.6 %; Lymphocyte % 16.9 %; Mean Corpuscular HGB Conc 32 g/dL (31-36); Mean Corpuscular Hemoglobin 24 pg (27-31); Mean Corpuscular Volume 73 fL (80-97)
[2021-06-16] MEDS: SPIRIVA Respimat (tiotropium) 2.5 mcg/inh Inhaler INH SCH (10:23)
[2021-06-16] MEDS ORDERED: Regadenoson 0.4 MG/5 ML SYRINGE ONE (14:38)
[2021-06-16 16:20] VITALS: BP 107/60
== END 2021-06-16 16:10 | disposition home or self-care (01) | DRG 313 ==
LOC: ED 13:44 → SUATTDRO 18:07 → MEDTELE 18:07
PROVIDERS: ADMIT Internal Medicine; ATTEND Hospitalist

== ENCOUNTER 2021-06-20 10:38 | Inpatient (IN) ==
[2021-06-20 11:11] LABS: ABS Basophils 0.1 10^3/ul (0-0.2); ABS Eosinophils 0.2 10^3/ul (0-0.6); ABS Lymphocytes 0.9 10^3/ul (1.0-4.8); ABS Monocytes 0.5 10^3/ul (0-0.8); ABS Neutrophils 8.6 10^3/ul (1.5-7.7); Eosinophil % 1.9 %; Hematocrit 30 % (35-47); Hemoglobin 9.3 g/dL (12.0-16.0); Mean Corpuscular HGB Conc 31 g/dL (31-36); Mean Corpuscular Hemoglobin 23 pg (27-31); Mean Corpuscular Volume 74 fL (80-97); Mean Platelet Volume 8.7 fL (7.4-10.4); Platelet Count 309 10^3/uL (150-450); Red Blood Count 4.02 10^6 /uL (3.70-4.87); Red Cell Distribution Width 20 % (10-15); White Blood Count 10.3 10^3/uL (3.5-10.8)
[2021-06-20 11:15] LABS: Activated Partial Thrombo Time 26.9 seconds (26.0-38.0); INR 1.17 (0.86-1.15)
[2021-06-20 11:24] LABS: ALT 275 U/L (7-52); AST 246 U/L (13-39); Albumin 3.6 g/dL (3.2-5.2); Alkaline Phosphatase 228 U/L (35-149); Anion Gap 8 mmol/L (2-11); Blood Urea Nitrogen 38 mg/dL (6-24); CO2 Carbon Dioxide 28 mmol/L (22-32); Calcium 9.1 mg/dL (8.6-10.3); Chloride 98 mmol/L (101-111); EGFR African American 48.9 (>60); EGFR Non-African American 40.4 (>60); Globulin 3.6 g/dL (2-4); Glucose 434 mg/dL (70-100); Potassium 4.1 mmol/L (3.5-5.0); Sodium 134 mmol/L (135-145); Total Protein 7.2 g/dL (6.4-8.9)
[2021-06-20 11:36] LABS: Troponin I 0.03 ng/mL (<0.03)
[2021-06-20 11:48] LABS: LDH 650 U/L (140-271)
[2021-06-20 12:09] LABS: Ferritin 17.8 ng/mL (11-307)
[2021-06-20 12:47] LABS: Influenza A Molecular Negative (Negative); Influenza B Molecular Negative (Negative)
[2021-06-20 14:11] LABS: Venous Bicarbonate HCO3 25.8 mmol/L (24-28)
[2021-06-20 15:50] LABS: Urine Appearance Cloudy; Urine Bilirubin Negative (Negative); Urine Blood 1+ (Negative); Urine Color Yellow; Urine Glucose 3+(>=500 mg/dL) (Negative); Urine Ketones Negative (Negative); Urine Nitrite Negative (Negative); Urine Protein 1+(30 mg/dL) (Negative); Urine Specific Gravity 1.011 (1.002-1.030); Urine Urobilinogen Negative (Negative)
[2021-06-20 15:57] LABS: Urine Bacteria 1+ (Absent); Urine Red Blood Cell 1+(3-5/hpf) (Absent); Urine Squamous Epithelial Cell Present (Absent); Urine White Blood Cell 3+(>20/hpf) (Absent)
[2021-06-20] MEDS ORDERED: Albuterol HFA INHALER 8 gm MDI INH PRN (16:50)
[2021-06-20] MEDS ORDERED: Furosemide 40 mg/4 ml IV VIAL IV SLOW PU ONE (17:04)
[2021-06-20] MEDS ORDERED: Bumetanide IV 0.25 MG/ML 4 ml VIAL (1 mg) SLOW PUSH ONE (18:38)
[2021-06-20] MEDS ORDERED: Dextrose 50% Syringe 50 ml 25 GM/50 ML SYRINGE IV PUSH PRN (20:07)
[2021-06-20 20:53] LABS: Glucose Confirmatory 439 mg/dL (70-100)
[2021-06-20 20:55] LABS: Troponin I 0.03 ng/mL (<0.03)
[2021-06-20] MEDS ORDERED: Insulin GLARGINE 100 un/ml 10 ml VIAL SUBCUT SCH (21:00)
[2021-06-21] MEDS: SPIRIVA Respimat (tiotropium) 2.5 mcg/inh Inhaler INH SCH (07:15)
[2021-06-21 07:26] LABS: Albumin 3.4 g/dL (3.2-5.2); Calcium 8.8 mg/dL (8.6-10.3); EGFR African American 65.4 (>60); Globulin 3.3 g/dL (2-4); Magnesium 1.9 mg/dL (1.9-2.7); Potassium 3.6 mmol/L (3.5-5.0); Total Bilirubin 0.7 mg/dL (0.2-1.0); Total Protein 6.7 g/dL (6.4-8.9)
[2021-06-21 07:29] LABS: ABS Basophils 0.1 10^3/ul (0-0.2); ABS Eosinophils 0.3 10^3/ul (0-0.6); ABS Lymphocytes 1.1 10^3/ul (1.0-4.8); ABS Monocytes 0.6 10^3/ul (0-0.8); ABS Neutrophils 7.5 10^3/ul (1.5-7.7); Eosinophil % 3.4 %; Hematocrit 28 % (35-47); Hemoglobin 8.7 g/dL (12.0-16.0); Lymphocyte % 11.1 %; Mean Corpuscular HGB Conc 32 g/dL (31-36); Mean Corpuscular Hemoglobin 23 pg (27-31); Mean Corpuscular Volume 73 fL (80-97); Mean Platelet Volume 9.1 fL (7.4-10.4); Platelet Count 276 10^3/uL (150-450); Red Blood Count 3.76 10^6 /uL (3.70-4.87); Red Cell Distribution Width 19 % (10-15); White Blood Count 9.5 10^3/uL (3.5-10.8)
[2021-06-21 07:49] LABS: INR 1.38 (0.86-1.15)
[2021-06-21] MEDS ORDERED: Bumetanide IV 0.25 MG/ML 4 ml VIAL (1 mg) SLOW PUSH ONE (11:03)
[2021-06-21] MEDS: Amoxicillin/Clavul 500/125 TAB (Augmentin 500 mg tab) PO SCH (16:11)
[2021-06-21] MEDS: Insulin GLARGINE 100 un/ml 10 ml VIAL SUBCUT SCH (21:18)
[2021-06-22] MEDS: Amoxicillin/Clavul 500/125 TAB (Augmentin 500 mg tab) PO SCH ×2 (05:30→17:19)
[2021-06-22 07:03] LABS: Anion Gap 9 mmol/L (2-11); Blood Urea Nitrogen 39 mg/dL (6-24); CO2 Carbon Dioxide 29 mmol/L (22-32); Calcium 8.1 mg/dL (8.6-10.3); Chloride 99 mmol/L (101-111); EGFR African American 48.1 (>60); EGFR Non-African American 39.7 (>60); Glucose 179 mg/dL (70-100); Hematocrit 26 % (35-47); Hemoglobin 8.2 g/dL (12.0-16.0); Magnesium 1.9 mg/dL (1.9-2.7); Mean Corpuscular HGB Conc 32 g/dL (31-36); Mean Corpuscular Hemoglobin 23 pg (27-31); Mean Corpuscular Volume 73 fL (80-97); Mean Platelet Volume 8.7 fL (7.4-10.4); Platelet Count 274 10^3/uL (150-450); Potassium 3.5 mmol/L (3.5-5.0); Red Blood Count 3.53 10^6 /uL (3.70-4.87); Red Cell Distribution Width 20 % (10-15); Sodium 137 mmol/L (135-145); White Blood Count 8.7 10^3/uL (3.5-10.8)
[2021-06-22] MEDS: SPIRIVA Respimat (tiotropium) 2.5 mcg/inh Inhaler INH SCH (07:31)
[2021-06-22 09:30] LABS: ALT 215 U/L (7-52); AST 87 U/L (13-39); Albumin 3.2 g/dL (3.2-5.2); Albumin/Globulin Ratio 1.1 (1-3); Alkaline Phosphatase 156 U/L (35-149); Globulin 2.9 g/dL (2-4); Indirect Bilirubin 0.4 mg/dL (0.3-1.0); Total Protein 6.1 g/dL (6.4-8.9)
[2021-06-22 09:47] LABS: % Iron Saturation 6 % (15-55); Iron 20 ug/dL (50-212); Total Iron Binding Capacity 339 mcg/dL (250-450); Transferrin 242 mg/dL (203-362); Unsaturated Iron Binding < 324 ug/dL
[2021-06-22] MEDS ORDERED: Bumetanide IV 0.25 MG/ML 4 ml VIAL (1 mg) SLOW PUSH ONE ×2 (11:00→19:00)
[2021-06-22 11:30] LABS: Ferritin 18.9 ng/mL (11-307)
[2021-06-22] MEDS ORDERED: Potassium Chlor 20 meq TAB.ER PO ONE (12:37)
[2021-06-22] MEDS ORDERED: Dextrose 50% Syringe 50 ml 25 GM/50 ML SYRINGE IV PUSH PRN (16:18)
[2021-06-22] MEDS: Insulin GLARGINE 100 un/ml 10 ml VIAL SUBCUT SCH (21:44)
[2021-06-23] MEDS: Amoxicillin/Clavul 500/125 TAB (Augmentin 500 mg tab) PO SCH ×2 (05:31→17:45)
[2021-06-23 07:05] LABS: ABS Basophils 0.1 10^3/ul (0-0.2); ABS Eosinophils 0.3 10^3/ul (0-0.6); ABS Lymphocytes 1.2 10^3/ul (1.0-4.8); ABS Monocytes 0.6 10^3/ul (0-0.8); ABS Neutrophils 6.5 10^3/ul (1.5-7.7); Eosinophil % 3.9 %; Hematocrit 30 % (35-47); Hemoglobin 9.2 g/dL (12.0-16.0); Lymphocyte % 14.2 %; Mean Corpuscular HGB Conc 31 g/dL (31-36); Mean Corpuscular Hemoglobin 23 pg (27-31); Mean Corpuscular Volume 75 fL (80-97); Mean Platelet Volume 8.9 fL (7.4-10.4); Nucleated Red Blood Cells % 0.2; Platelet Count 288 10^3/uL (150-450); Red Blood Count 3.95 10^6 /uL (3.70-4.87); Red Cell Distribution Width 20 % (10-15); White Blood Count 8.7 10^3/uL (3.5-10.8)
[2021-06-23 07:11] LABS: Albumin 3.4 g/dL (3.2-5.2); Calcium 8.7 mg/dL (8.6-10.3); EGFR African American 41.4 (>60); EGFR Non-African American 34.2 (>60); Globulin 3.3 g/dL (2-4); Magnesium 2.1 mg/dL (1.9-2.7); Total Bilirubin 0.5 mg/dL (0.2-1.0); Total Protein 6.7 g/dL (6.4-8.9)
[2021-06-23] MEDS: SPIRIVA Respimat (tiotropium) 2.5 mcg/inh Inhaler INH SCH (07:47)
[2021-06-23] MEDS: Insulin GLARGINE 100 un/ml 10 ml VIAL SUBCUT SCH (20:21)
[2021-06-24] MEDS: Amoxicillin/Clavul 500/125 TAB (Augmentin 500 mg tab) PO SCH (05:33)
[2021-06-24 06:12] LABS: Hematocrit 29 % (35-47); Hemoglobin 8.8 g/dL (12.0-16.0); Mean Corpuscular HGB Conc 31 g/dL (31-36); Mean Corpuscular Hemoglobin 23 pg (27-31); Mean Corpuscular Volume 74 fL (80-97); Mean Platelet Volume 8.5 fL (7.4-10.4); Platelet Count 254 10^3/uL (150-450); Red Blood Count 3.91 10^6 /uL (3.70-4.87); Red Cell Distribution Width 20 % (10-15); White Blood Count 8.9 10^3/uL (3.5-10.8)
[2021-06-24 06:17] LABS: Albumin 3.3 g/dL (3.2-5.2); Albumin/Globulin Ratio 1.1 (1-3); Calcium 8.4 mg/dL (8.6-10.3); EGFR African American 46.5 (>60); EGFR Non-African American 38.4 (>60); Globulin 3.1 g/dL (2-4); Magnesium 2.1 mg/dL (1.9-2.7); Potassium 4.3 mmol/L (3.5-5.0); Total Bilirubin 0.4 mg/dL (0.2-1.0); Total Protein 6.4 g/dL (6.4-8.9)
[2021-06-24] MEDS: SPIRIVA Respimat (tiotropium) 2.5 mcg/inh Inhaler INH SCH ×2 (06:53→12:13)
[2021-06-24] MEDS: Insulin GLARGINE 100 un/ml 10 ml VIAL SUBCUT SCH (09:44)
[2021-06-24 10:14] VITALS: BP 121/70
== END 2021-06-24 13:37 | disposition home or self-care (01) | DRG 291 ==
LOC: ED 10:38 → MEDTELE 16:42 → SUATTDRO 16:42 → MEDTELE 19:30
PROVIDERS: ADMIT Hospitalist; ATTEND Internal Medicine

== ENCOUNTER 2021-07-11 00:21 | Inpatient (IN) ==
[2021-07-11] MEDS ORDERED: Furosemide 20 mg/2 ml IV VIAL IV ONE (02:52)
[2021-07-11 02:53] LABS: Rapid COVID-19 Molecular Undetected (Undetected)
[2021-07-11 03:13] LABS: Albumin 3.7 g/dL (3.2-5.2); Albumin/Globulin Ratio 1.1 (1-3); Calcium 8.8 mg/dL (8.6-10.3); EGFR African American 49.8 (>60); EGFR Non-African American 41.1 (>60); Globulin 3.5 g/dL (2-4); Potassium 4.5 mmol/L (3.5-5.0); Total Bilirubin 0.9 mg/dL (0.2-1.0); Total Protein 7.2 g/dL (6.4-8.9)
[2021-07-11 03:16] LABS: Troponin I 0.02 ng/mL (<0.03)
[2021-07-11 03:19] LABS: ABS Basophils 0.1 10^3/ul (0-0.2); ABS Eosinophils 0.2 10^3/ul (0-0.6); ABS Lymphocytes 0.7 10^3/ul (1.0-4.8); ABS Monocytes 0.5 10^3/ul (0-0.8); ABS Neutrophils 11.7 10^3/ul (1.5-7.7); Eosinophil % 1.5 %; Hematocrit 31 % (35-47); Hemoglobin 9.2 g/dL (12.0-16.0); Lymphocyte % 5.1 %; Mean Corpuscular HGB Conc 30 g/dL (31-36); Mean Corpuscular Hemoglobin 22 pg (27-31); Mean Corpuscular Volume 73 fL (80-97); Mean Platelet Volume 8.2 fL (7.4-10.4); Platelet Count 335 10^3/uL (150-450); Red Blood Count 4.21 10^6 /uL (3.70-4.87); Red Cell Distribution Width 20 % (10-15); White Blood Count 13.2 10^3/uL (3.5-10.8)
[2021-07-11] MEDS ORDERED: Albuterol HFA INHALER 8 gm MDI INH PRN (04:58)
[2021-07-11] MEDS ORDERED: Furosemide 20 mg/2 ml IV VIAL IV SLOW PU ONE (05:03)
[2021-07-11] MEDS ORDERED: Dextrose 50% Syringe 50 ml 25 GM/50 ML SYRINGE IV PUSH PRN (05:04)
[2021-07-11 08:12] LABS: Glucose Confirmatory 462 mg/dL (70-100)
[2021-07-11 09:51] LABS: Urine Appearance Cloudy; Urine Bilirubin Negative (Negative); Urine Blood 1+ (Negative); Urine Color Yellow; Urine Glucose 3+(>=500 mg/dL) (Negative); Urine Ketones Negative (Negative); Urine Nitrite Negative (Negative); Urine Protein 1+(30 mg/dL) (Negative); Urine Specific Gravity 1.009 (1.002-1.030); Urine Urobilinogen Negative (Negative)
[2021-07-11 09:54] LABS: C Reactive Protein 46.84 mg/L (<8.01)
[2021-07-11 09:55] LABS: Urine Bacteria 1+ (Absent); Urine Red Blood Cell Trace(0-2/hpf) (Absent); Urine Squamous Epithelial Cell Present (Absent); Urine White Blood Cell 3+(>20/hpf) (Absent)
[2021-07-12] MEDS: oxyCODONE/Acetamin 5/325 mg TAB PO PRN (05:27)
[2021-07-12] MEDS: SPIRIVA Respimat (tiotropium) 2.5 mcg/inh Inhaler INH SCH (09:27)
[2021-07-12 12:51] LABS: Hematocrit 28 % (35-47); Hemoglobin 8.8 g/dL (12.0-16.0); Mean Corpuscular HGB Conc 31 g/dL (31-36); Mean Corpuscular Hemoglobin 22 pg (27-31); Mean Corpuscular Volume 71 fL (80-97); Mean Platelet Volume 8.4 fL (7.4-10.4); Platelet Count 326 10^3/uL (150-450); Red Blood Count 4.01 10^6 /uL (3.70-4.87); Red Cell Distribution Width 21 % (10-15); White Blood Count 9.8 10^3/uL (3.5-10.8)
[2021-07-12] MEDS: cefTRIAXone 1 gm/50 mL NS BAG 1 GM/50 ML BAG IVPB SCH (12:56)
[2021-07-12 13:06] LABS: Calcium 8.9 mg/dL (8.6-10.3); EGFR African American 46.1 (>60); EGFR Non-African American 38.1 (>60); Magnesium 1.9 mg/dL (1.9-2.7); Potassium 3.2 mmol/L (3.5-5.0)
[2021-07-12] MEDS ORDERED: Potassium Chloride LIQUID 20 MEQ/15 ML LIQUID PO ONE (15:22)
[2021-07-12] MEDS ORDERED: Magnesium Sulfate IV 3 GM in NS 0.9% 100 ml BAG 100 ML IVPB ONE (15:22)
[2021-07-12] MEDS: KCL 20 MEQ/100 ML IVPREMIX 20 MEQ/100 ML BAG IV SCH ×2 (19:19→21:29)
[2021-07-13 06:58] LABS: Calcium 8.5 mg/dL (8.6-10.3); EGFR African American 48.1 (>60); EGFR Non-African American 39.7 (>60); Magnesium 2.4 mg/dL (1.9-2.7); Phosphorus 2.9 mg/dL (2.5-5.0); Potassium 4.2 mmol/L (3.5-5.0)
[2021-07-13] MEDS: SPIRIVA Respimat (tiotropium) 2.5 mcg/inh Inhaler INH SCH (07:58)
[2021-07-13] MEDS: oxyCODONE/Acetamin 5/325 mg TAB PO PRN ×2 (08:04→22:46)
[2021-07-13] MEDS ORDERED: Polyethylene Glycol 3350 17 GM PACKET PO PRN (09:08)
[2021-07-13] MEDS: cefTRIAXone 1 gm/50 mL NS BAG 1 GM/50 ML BAG IVPB SCH (12:53)
[2021-07-13] MEDS: Senna TAB 8.6 mg TAB PO PRN (20:04)
[2021-07-14 05:25] LABS: EGFR African American 45.4 (>60); EGFR Non-African American 37.5 (>60); Potassium 4.7 mmol/L (3.5-5.0)
[2021-07-14] MEDS: SPIRIVA Respimat (tiotropium) 2.5 mcg/inh Inhaler INH SCH (07:36)
[2021-07-14] MEDS: oxyCODONE/Acetamin 5/325 mg TAB PO PRN ×2 (08:43→21:41)
[2021-07-14] MEDS: cefTRIAXone 1 gm/50 mL NS BAG 1 GM/50 ML BAG IVPB SCH (12:50)
[2021-07-14] MEDS: Polyethylene Glycol 3350 17 GM PACKET PO SCH (14:39)
[2021-07-14] MEDS: Senna TAB 8.6 mg TAB PO PRN (21:41)
[2021-07-15] MEDS: SPIRIVA Respimat (tiotropium) 2.5 mcg/inh Inhaler INH SCH (07:26)
[2021-07-15 08:18] LABS: Calcium 8.9 mg/dL (8.6-10.3); EGFR African American 43.6 (>60); EGFR Non-African American 36.1 (>60)
[2021-07-15] MEDS: Polyethylene Glycol 3350 17 GM PACKET PO SCH (08:33)
[2021-07-15] MEDS: oxyCODONE/Acetamin 5/325 mg TAB PO PRN ×3 (08:34→21:04)
[2021-07-15] MEDS: cefTRIAXone 1 gm/50 mL NS BAG 1 GM/50 ML BAG IVPB SCH (12:33)
[2021-07-15 18:52] LABS: TSH Ultra Thyroid Stim Horm 3.88 mcIU/mL (0.34-5.60)
[2021-07-15 18:55] LABS: Free T4 0.92 ng/dL (0.61-1.12)
[2021-07-16] MEDS: oxyCODONE/Acetamin 5/325 mg TAB PO PRN ×4 (01:10→21:25)
[2021-07-16] MEDS: SPIRIVA Respimat (tiotropium) 2.5 mcg/inh Inhaler INH SCH (07:54)
[2021-07-16 08:16] LABS: Calcium 9.3 mg/dL (8.6-10.3); EGFR African American 32.2 (>60); EGFR Non-African American 26.6 (>60)
[2021-07-16 08:18] LABS: Potassium 5.5 mmol/L (3.5-5.0)
[2021-07-16 08:38] LABS: Troponin I 0.03 ng/mL (<0.03)
[2021-07-16] MEDS: Polyethylene Glycol 3350 17 GM PACKET PO SCH (09:24)
[2021-07-16] MEDS: cefTRIAXone 1 gm/50 mL NS BAG 1 GM/50 ML BAG IVPB SCH (12:37)
[2021-07-16 12:51] LABS: Troponin I 0.03 ng/mL (<0.03)
[2021-07-17] MEDS: oxyCODONE/Acetamin 5/325 mg TAB PO PRN ×4 (03:19→20:52)
[2021-07-17 03:37] LABS: Anaplasma phagocytophilum Negative (Negative); B. miyamotoi PCR, B Negative (Negative); Babesia divergens/MO-1 Negative (Negative); Babesia ducani Negative (Negative); Ehrlichia chaffeensis Negative (Negative); Ehrlichia ewingii/canis Negative (Negative); Ehrlichia muris eauclairensis Negative (Negative)
[2021-07-17 06:26] LABS: Blood Urea Nitrogen 57 mg/dL (6-24); CO2 Carbon Dioxide 29 mmol/L (22-32); Calcium 8.7 mg/dL (8.6-10.3); Chloride 92 mmol/L (101-111); EGFR African American 36.7 (>60); EGFR Non-African American 30.4 (>60); Glucose 125 mg/dL (70-100); Sodium 128 mmol/L (135-145)
[2021-07-17 06:32] LABS: Anion Gap 7 mmol/L (2-11); Potassium 5.1 mmol/L (3.5-5.0)
[2021-07-17] MEDS: SPIRIVA Respimat (tiotropium) 2.5 mcg/inh Inhaler INH SCH (07:42)
[2021-07-17 08:21] LABS: % Iron Saturation 12 % (15-55); Iron 52 ug/dL (50-212); Total Iron Binding Capacity 451 mcg/dL (250-450); Transferrin 322 mg/dL (203-362); Unsaturated Iron Binding < 436 ug/dL
[2021-07-17 08:41] LABS: Ferritin 25.9 ng/mL (11-307)
[2021-07-17] MEDS: Polyethylene Glycol 3350 17 GM PACKET PO SCH ×2 (09:34→20:52)
[2021-07-17] MEDS: Magnesium Hydroxide LIQ 30 ML UDC PO SCH ×2 (09:42→20:52)
[2021-07-17 10:08] LABS: Albumin 2.7 g/dL (3.4-4.7); Albumin/Globulin Ratio 0.74; Gamma Globulin 1.1 g/dL (0.6-1.6); Total Protein(PEP) 6.3 g/dL (6.3 - 7.9)
[2021-07-17] MEDS ORDERED: Iron Sucrose 200 MG in NS 0.9% 100 ml IVPB ONE (11:30)
[2021-07-17] MEDS ORDERED: Iron Sucrose 20 MG/ML 5 ML VIAL IV PUSH ONE (11:30)
[2021-07-17] MEDS: cefTRIAXone 1 gm/50 mL NS BAG 1 GM/50 ML BAG IVPB SCH (14:17)
[2021-07-17 18:39] LABS: Activated Partial Thrombo Time 32.6 seconds (26.0-38.0); INR 1.29 (0.86-1.15)
[2021-07-17 18:41] LABS: EGFR African American 34.2 (>60); EGFR Non-African American 28.3 (>60)
[2021-07-17 18:42] LABS: Hematocrit 28 % (35-47); Hemoglobin 8.6 g/dL (12.0-16.0); Mean Corpuscular HGB Conc 31 g/dL (31-36); Mean Corpuscular Hemoglobin 22 pg (27-31); Mean Corpuscular Volume 72 fL (80-97); Mean Platelet Volume 7.8 fL (7.4-10.4); Platelet Count 362 10^3/uL (150-450); Red Blood Count 3.85 10^6 /uL (3.70-4.87); Red Cell Distribution Width 21 % (10-15); White Blood Count 9.2 10^3/uL (3.5-10.8)
[2021-07-17 18:43] LABS: ABS Basophils 0.1 10^3/ul (0-0.2); ABS Eosinophils 0.4 10^3/ul (0-0.6); ABS Lymphocytes 1.4 10^3/ul (1.0-4.8); ABS Monocytes 0.7 10^3/ul (0-0.8); ABS Neutrophils 6.6 10^3/ul (1.5-7.7); Eosinophil % 4.1 %; Lymphocyte % 15.2 %
[2021-07-17 19:35] LABS: Calcium 9.1 mg/dL (8.6-10.3)
[2021-07-17 19:36] LABS: Potassium 5.1 mmol/L (3.5-5.0)
[2021-07-18 05:31] LABS: ABS Basophils 0.1 10^3/ul (0-0.2); ABS Eosinophils 0.3 10^3/ul (0-0.6); ABS Lymphocytes 1.1 10^3/ul (1.0-4.8); ABS Monocytes 0.7 10^3/ul (0-0.8); ABS Neutrophils 6.9 10^3/ul (1.5-7.7); Eosinophil % 3.3 %; Hematocrit 25 % (35-47); Lymphocyte % 12.4 %; Mean Corpuscular HGB Conc 32 g/dL (31-36); Mean Corpuscular Hemoglobin 23 pg (27-31); Mean Corpuscular Volume 72 fL (80-97); Mean Platelet Volume 8.1 fL (7.4-10.4); Nucleated Red Blood Cells % 0.1; Platelet Count 357 10^3/uL (150-450); Red Blood Count 3.52 10^6 /uL (3.70-4.87); Red Cell Distribution Width 21 % (10-15); White Blood Count 9.1 10^3/uL (3.5-10.8)
[2021-07-18 05:45] LABS: Calcium 8.8 mg/dL (8.6-10.3); EGFR African American 29.2 (>60); EGFR Non-African American 24.1 (>60)
[2021-07-18 05:57] LABS: Potassium 6.2 mmol/L (3.5-5.0)
[2021-07-18] MEDS ORDERED: Heparin 5000 UNITS/ML 1 mL VIAL SUBCUT SCH ×2 (06:00→18:00)
[2021-07-18] MEDS ORDERED: Calcium Gluconate 1 GM/10 ML VIAL (in Pyxis) IV PUSH ONE (06:22)
[2021-07-18] MEDS ORDERED: CALCIUM GLUCONATE 1GM/50ML NS BAG IV ONE (06:40)
[2021-07-18] MEDS ORDERED: Dextrose 50% Syringe 50 ml 25 GM/50 ML SYRINGE IV PUSH ONE (06:40)
[2021-07-18] MEDS: SPIRIVA Respimat (tiotropium) 2.5 mcg/inh Inhaler INH SCH (07:24)
[2021-07-18] MEDS: Polyethylene Glycol 3350 17 GM PACKET PO SCH ×2 (08:41→20:44)
[2021-07-18] MEDS: Magnesium Hydroxide LIQ 30 ML UDC PO SCH ×3 (08:41→20:47)
[2021-07-18 09:17] LABS: Calcium 9.4 mg/dL (8.6-10.3); EGFR African American 31.4 (>60)
[2021-07-18 09:49] LABS: Potassium 5.3 mmol/L (3.5-5.0)
[2021-07-18] MEDS ORDERED: Iron Sucrose 20 MG/ML 5 ML VIAL IV PUSH ONE (11:00)
[2021-07-18] MEDS ORDERED: Iron Sucrose 200 MG in NS 0.9% 100 ml IVPB ONE (11:00)
[2021-07-18] MEDS: oxyCODONE/Acetamin 5/325 mg TAB PO PRN (12:03)
[2021-07-18] MEDS: Patiromer POWDER 8.4 GM PAK PO SCH (14:05)
[2021-07-18] MEDS ORDERED: Lactated Ringers 500 ml BAG 500 ML IV ONE (15:24)
[2021-07-18 15:53] LABS: Magnesium 2.9 mg/dL (1.9-2.7); Phosphorus 5.3 mg/dL (2.5-5.0)
[2021-07-18] MEDS: Albumin Human 5% 12.5 GM/250 ML BTL IV SCH ×2 (16:31→17:17)
[2021-07-18 16:49] LABS: Troponin I 0.02 ng/mL (<0.03)
[2021-07-18 17:49] LABS: Calcium 8.8 mg/dL (8.6-10.3); EGFR African American 35.1 (>60)
[2021-07-18 17:50] LABS: Potassium 5.5 mmol/L (3.5-5.0)
[2021-07-18] MEDS: Heparin 5000 UNITS/ML 1 mL VIAL SUBCUT SCH (20:45)
[2021-07-18] MEDS: Insulin GLARGINE 100 un/ml 10 ml VIAL SUBCUT SCH (21:10)
[2021-07-19] MEDS: SPIRIVA Respimat (tiotropium) 2.5 mcg/inh Inhaler INH SCH (07:36)
[2021-07-19] MEDS: Magnesium Hydroxide LIQ 30 ML UDC PO SCH ×2 (07:51→19:57)
[2021-07-19] MEDS: Patiromer POWDER 8.4 GM PAK PO SCH (07:52)
[2021-07-19] MEDS: Polyethylene Glycol 3350 17 GM PACKET PO SCH ×2 (07:53→22:49)
[2021-07-19] MEDS ORDERED: Dextrose 50% Syringe 50 ml 25 GM/50 ML SYRINGE IV PUSH PRN (07:54)
[2021-07-19] MEDS: Heparin 5000 UNITS/ML 1 mL VIAL SUBCUT SCH ×2 (07:57→22:47)
[2021-07-19] MEDS: Lidocaine PATCH 5% PATCH TRANSDERM SCH (08:22)
[2021-07-19 08:56] LABS: ABS Basophils 0.1 10^3/ul (0-0.2); ABS Eosinophils 0.2 10^3/ul (0-0.6); ABS Lymphocytes 1.3 10^3/ul (1.0-4.8); ABS Monocytes 0.5 10^3/ul (0-0.8); Eosinophil % 2.1 %; Hematocrit 26 % (35-47); Hemoglobin 7.9 g/dL (12.0-16.0); Lymphocyte % 12.5 %; Mean Corpuscular HGB Conc 30 g/dL (31-36); Mean Corpuscular Hemoglobin 22 pg (27-31); Mean Corpuscular Volume 74 fL (80-97); Platelet Count 354 10^3/uL (150-450); Red Blood Count 3.52 10^6 /uL (3.70-4.87); Red Cell Distribution Width 21 % (10-15); White Blood Count 10.1 10^3/uL (3.5-10.8)
[2021-07-19 09:10] LABS: Calcium 9.5 mg/dL (8.6-10.3); EGFR African American 42.3 (>60); Potassium 4.9 mmol/L (3.5-5.0)
[2021-07-19 18:36] LABS: Urine Potassium Concentration 22.4 mmol/L
[2021-07-19] MEDS: Insulin GLARGINE 100 un/ml 10 ml VIAL SUBCUT SCH (22:48)
[2021-07-19] MEDS: Lidocaine Patch REMOVE PATCH PATCH OFF SCH (22:51)
[2021-07-20 04:58] LABS: ABS Basophils 0.1 10^3/ul (0-0.2); ABS Eosinophils 0.2 10^3/ul (0-0.6); ABS Lymphocytes 0.8 10^3/ul (1.0-4.8); ABS Monocytes 0.9 10^3/ul (0-0.8); ABS Neutrophils 11.7 10^3/ul (1.5-7.7); Eosinophil % 1.8 %; Hematocrit 25 % (35-47); Hemoglobin 7.5 g/dL (12.0-16.0); Mean Corpuscular HGB Conc 30 g/dL (31-36); Mean Corpuscular Hemoglobin 22 pg (27-31); Mean Corpuscular Volume 74 fL (80-97); Mean Platelet Volume 7.4 fL (7.4-10.4); Platelet Count 389 10^3/uL (150-450); Red Blood Count 3.36 10^6 /uL (3.70-4.87); Red Cell Distribution Width 22 % (10-15); White Blood Count 13.6 10^3/uL (3.5-10.8)
[2021-07-20 05:14] LABS: Albumin 3.9 g/dL (3.2-5.2); Albumin/Globulin Ratio 1.1 (1-3); Calcium 9.6 mg/dL (8.6-10.3); EGFR African American 49.3 (>60); EGFR Non-African American 40.8 (>60); Globulin 3.6 g/dL (2-4); Potassium 4.8 mmol/L (3.5-5.0); Total Bilirubin 0.6 mg/dL (0.2-1.0); Total Protein 7.5 g/dL (6.4-8.9)
[2021-07-20] MEDS: Cholecalciferol (VIT D3) 1,000 unit TAB PO SCH (07:36)
[2021-07-20] MEDS: Heparin 5000 UNITS/ML 1 mL VIAL SUBCUT SCH ×2 (07:37→22:29)
[2021-07-20] MEDS: Lidocaine PATCH 5% PATCH TRANSDERM SCH (07:38)
[2021-07-20] MEDS: Polyethylene Glycol 3350 17 GM PACKET PO SCH ×3 (07:39→22:29)
[2021-07-20] MEDS: SPIRIVA Respimat (tiotropium) 2.5 mcg/inh Inhaler INH SCH (07:39)
[2021-07-20] MEDS: Magnesium Hydroxide LIQ 30 ML UDC PO SCH ×2 (07:39→22:41)
[2021-07-20 07:50] LABS: Urine Appearance Cloudy; Urine Bilirubin Negative (Negative); Urine Blood 1+ (Negative); Urine Color Yellow; Urine Glucose 3+(>=500 mg/dL) (Negative); Urine Ketones Negative (Negative); Urine Nitrite Negative (Negative); Urine Protein 2+(100 mg/dL) (Negative); Urine Specific Gravity 1.008 (1.002-1.030); Urine Urobilinogen Negative (Negative)
[2021-07-20 07:52] LABS: Urine Bacteria 1+ (Absent); Urine Red Blood Cell Trace(0-2/hpf) (Absent); Urine Squamous Epithelial Cell Present (Absent); Urine White Blood Cell 3+(>20/hpf) (Absent)
[2021-07-20] MEDS: Insulin GLARGINE 100 un/ml 10 ml VIAL SUBCUT SCH (22:43)
[2021-07-20] MEDS: Lidocaine Patch REMOVE PATCH PATCH OFF SCH (22:44)
[2021-07-21 07:23] LABS: ABS Eosinophils 0.3 10^3/ul (0-0.6); ABS Lymphocytes 1.3 10^3/ul (1.0-4.8); ABS Monocytes 0.7 10^3/ul (0-0.8); ABS Neutrophils 6.2 10^3/ul (1.5-7.7); Eosinophil % 2.9 %; Hematocrit 26 % (35-47); Hemoglobin 8.3 g/dL (12.0-16.0); Lymphocyte % 15.4 %; Mean Corpuscular HGB Conc 32 g/dL (31-36); Mean Corpuscular Hemoglobin 25 pg (27-31); Mean Corpuscular Volume 76 fL (80-97); Mean Platelet Volume 8.1 fL (7.4-10.4); Platelet Count 323 10^3/uL (150-450); Red Blood Count 3.38 10^6 /uL (3.70-4.87); Red Cell Distribution Width 23 % (10-15); White Blood Count 8.6 10^3/uL (3.5-10.8)
[2021-07-21 07:32] LABS: Calcium 9.2 mg/dL (8.6-10.3); EGFR African American 48.9 (>60); EGFR Non-African American 40.4 (>60)
[2021-07-21] MEDS: Cholecalciferol (VIT D3) 1,000 unit TAB PO SCH (08:01)
[2021-07-21] MEDS: Magnesium Hydroxide LIQ 30 ML UDC PO SCH ×2 (08:04→23:22)
[2021-07-21 08:11] LABS: Potassium 4.9 mmol/L (3.5-5.0)
[2021-07-21] MEDS: Lidocaine PATCH 5% PATCH TRANSDERM SCH (08:12)
[2021-07-21] MEDS: Heparin 5000 UNITS/ML 1 mL VIAL SUBCUT SCH ×2 (08:14→23:20)
[2021-07-21] MEDS: Polyethylene Glycol 3350 17 GM PACKET PO SCH ×3 (08:18→23:22)
[2021-07-21] MEDS: SPIRIVA Respimat (tiotropium) 2.5 mcg/inh Inhaler INH SCH (09:48)
[2021-07-21] MEDS: Insulin GLARGINE 100 un/ml 10 ml VIAL SUBCUT SCH (23:20)
[2021-07-21] MEDS: Lidocaine Patch REMOVE PATCH PATCH OFF SCH (23:22)
[2021-07-22 06:01] LABS: ABS Basophils 0.1 10^3/ul (0-0.2); ABS Eosinophils 0.2 10^3/ul (0-0.6); ABS Lymphocytes 1.3 10^3/ul (1.0-4.8); ABS Monocytes 0.6 10^3/ul (0-0.8); ABS Neutrophils 5.8 10^3/ul (1.5-7.7); Eosinophil % 3.1 %; Hematocrit 26 % (35-47); Hemoglobin 8.3 g/dL (12.0-16.0); Mean Corpuscular HGB Conc 32 g/dL (31-36); Mean Corpuscular Hemoglobin 24 pg (27-31); Mean Corpuscular Volume 77 fL (80-97); Mean Platelet Volume 8.3 fL (7.4-10.4); Platelet Count 332 10^3/uL (150-450); Red Blood Count 3.42 10^6 /uL (3.70-4.87); Red Cell Distribution Width 24 % (10-15)
[2021-07-22 06:20] LABS: Calcium 9.1 mg/dL (8.6-10.3); EGFR African American 46.1 (>60); EGFR Non-African American 38.1 (>60); Potassium 4.4 mmol/L (3.5-5.0)
[2021-07-22] MEDS: SPIRIVA Respimat (tiotropium) 2.5 mcg/inh Inhaler INH SCH (08:08)
[2021-07-22] MEDS: Cholecalciferol (VIT D3) 1,000 unit TAB PO SCH (08:53)
[2021-07-22] MEDS: Polyethylene Glycol 3350 17 GM PACKET PO SCH (09:00)
[2021-07-22] MEDS: Magnesium Hydroxide LIQ 30 ML UDC PO SCH (09:00)
[2021-07-22] MEDS: Heparin 5000 UNITS/ML 1 mL VIAL SUBCUT SCH (09:02)
[2021-07-22] MEDS: Lidocaine PATCH 5% PATCH TRANSDERM SCH (09:06)
[2021-07-22 11:47] VITALS: BP 99/57
== END 2021-07-22 12:30 | disposition home health service (06) | DRG 291 ==
LOC: SUATTDRO → ED 00:21 → SUATTDRO 11:17 → MED 11:17
PROVIDERS: ADMIT Internal Medicine; ATTEND Internal Medicine

== ENCOUNTER 2021-08-22 16:58 | Observation (INO) ==
[2021-08-22 19:04] LABS: Hematocrit 39 % (35-47); Hemoglobin 12.7 g/dL (12.0-16.0); Mean Corpuscular HGB Conc 33 g/dL (31-36); Mean Corpuscular Hemoglobin 26 pg (27-31); Mean Corpuscular Volume 79 fL (80-97); Mean Platelet Volume 8.5 fL (7.4-10.4); Platelet Count 324 10^3/uL (150-450); Red Blood Count 4.91 10^6 /uL (3.70-4.87); Red Cell Distribution Width 26 % (10-15); White Blood Count 12.3 10^3/uL (3.5-10.8)
[2021-08-22 19:23] LABS: ALT 21 U/L (7-52); AST 28 U/L (13-39); Albumin 4.2 g/dL (3.2-5.2); Alkaline Phosphatase 178 U/L (35-149); Anion Gap 12 mmol/L (2-11); Blood Urea Nitrogen 120 mg/dL (6-24); CO2 Carbon Dioxide 37 mmol/L (22-32); Calcium 10.3 mg/dL (8.6-10.3); Chloride 85 mmol/L (101-111); Globulin 4.2 g/dL (2-4); Glucose 133 mg/dL (70-100); Magnesium 2.8 mg/dL (1.9-2.7); Potassium 3.7 mmol/L (3.5-5.0); Sodium 134 mmol/L (135-145); Total Protein 8.4 g/dL (6.4-8.9)
[2021-08-22 19:25] LABS: Troponin I 0.05 ng/mL (<0.03)
[2021-08-22 19:27] LABS: INR 1.01 (0.86-1.15)
[2021-08-22 19:48] LABS: Anisocytosis 1+
[2021-08-22 19:49] LABS: ABS Basophils 0.1 10^3/ul (0-0.2); ABS Eosinophils 0.2 10^3/ul (0-0.6); ABS Lymphocytes 0.7 10^3/ul (1.0-4.8); ABS Monocytes 0.6 10^3/ul (0-0.8); ABS Neutrophils 10.7 10^3/ul (1.5-7.7); Eosinophil % 1.9 %; Lymphocyte % 6.1 %; Schistocytes 1+
[2021-08-22 21:56] LABS: Venous Bicarbonate HCO3 35.8 mmol/L (24-28)
[2021-08-22] MEDS ORDERED: Senna TAB 8.6 mg TAB PO PRN (22:35)
[2021-08-22] MEDS ORDERED: Polyethylene Glycol 3350 17 GM PACKET PO PRN (22:35)
[2021-08-22] MEDS ORDERED: oxyCODONE/Acetamin 5/325 mg TAB PO PRN (22:35)
[2021-08-22] MEDS ORDERED: Dextrose 50% Syringe 50 ml 25 GM/50 ML SYRINGE IV PUSH PRN (22:39)
[2021-08-23] MEDS: Enoxaparin 30 MG/0.3 ML SYR SUBCUT SCH ×2 (01:37→21:01)
[2021-08-23 02:11] LABS: Urine Appearance Turbid; Urine Bilirubin Negative (Negative); Urine Blood 1+ (Negative); Urine Color Yellow; Urine Glucose Negative (Negative); Urine Ketones Negative (Negative); Urine Nitrite Negative (Negative); Urine Protein 2+(100 mg/dL) (Negative); Urine Specific Gravity 1.012 (1.002-1.030); Urine Urobilinogen Negative (Negative)
[2021-08-23 02:25] LABS: Rapid COVID-19 Molecular Undetected (Undetected)
[2021-08-23 02:26] LABS: Troponin I 0.05 ng/mL (<0.03)
[2021-08-23 02:35] LABS: Urine Bacteria Absent (Absent); Urine Red Blood Cell 2+(6-10/hpf) (Absent); Urine Squamous Epithelial Cell Present (Absent); Urine White Blood Cell 3+(>20/hpf) (Absent)
[2021-08-23 06:16] LABS: Hematocrit 39 % (35-47); Hemoglobin 12.9 g/dL (12.0-16.0); Mean Corpuscular HGB Conc 33 g/dL (31-36); Mean Corpuscular Hemoglobin 27 pg (27-31); Mean Corpuscular Volume 80 fL (80-97); Mean Platelet Volume 8.6 fL (7.4-10.4); Platelet Count 292 10^3/uL (150-450); Red Blood Count 4.87 10^6 /uL (3.70-4.87); Red Cell Distribution Width 26 % (10-15); White Blood Count 11.7 10^3/uL (3.5-10.8)
[2021-08-23 06:29] LABS: ABS Basophils 0.1 10^3/ul (0-0.2); ABS Eosinophils 0.2 10^3/ul (0-0.6); ABS Lymphocytes 1.3 10^3/ul (1.0-4.8); ABS Monocytes 0.7 10^3/ul (0-0.8); ABS Neutrophils 9.4 10^3/ul (1.5-7.7); Eosinophil % 1.8 %; Lymphocyte % 10.9 %; Nucleated Red Blood Cells % 0.1
[2021-08-23 06:34] LABS: Albumin 4.2 g/dL (3.2-5.2); Calcium 10.2 mg/dL (8.6-10.3); Globulin 4.2 g/dL (2-4); Potassium 3.1 mmol/L (3.5-5.0); Total Bilirubin 0.7 mg/dL (0.2-1.0); Total Protein 8.4 g/dL (6.4-8.9)
[2021-08-23] MEDS: SPIRIVA Respimat (tiotropium) 2.5 mcg/inh Inhaler INH SCH (10:10)
[2021-08-23] MEDS ORDERED: NS 0.9% 500 ml BAG 500 ML IV SCH (17:00)
[2021-08-23] MEDS: Potassium Chlor 20 meq TAB.ER PO ONE ×2 (17:01→17:02)
[2021-08-24 06:07] LABS: Hematocrit 37 % (35-47); Hemoglobin 12.5 g/dL (12.0-16.0); Mean Corpuscular HGB Conc 34 g/dL (31-36); Mean Corpuscular Hemoglobin 27 pg (27-31); Mean Corpuscular Volume 80 fL (80-97); Mean Platelet Volume 8.5 fL (7.4-10.4); Platelet Count 264 10^3/uL (150-450); Red Blood Count 4.64 10^6 /uL (3.70-4.87); Red Cell Distribution Width 26 % (10-15); White Blood Count 9.6 10^3/uL (3.5-10.8)
[2021-08-24 06:32] LABS: Calcium 9.7 mg/dL (8.6-10.3); Potassium 3.6 mmol/L (3.5-5.0)
[2021-08-24 06:36] LABS: T4, Total 15.99 mcg/dL (6.09-12.23)
[2021-08-24 06:40] LABS: TSH Ultra Thyroid Stim Horm 2.3 mcIU/mL (0.34-5.60)
[2021-08-24 06:42] LABS: Free T4 1.05 ng/dL (0.61-1.12)
[2021-08-24 06:54] VITALS: BP 93/66
[2021-08-24 08:06] LABS: ABS Basophils 0.1 10^3/ul (0-0.2); ABS Eosinophils 0.2 10^3/ul (0-0.6); ABS Lymphocytes 1.5 10^3/ul (1.0-4.8); ABS Monocytes 0.5 10^3/ul (0-0.8); ABS Neutrophils 7.3 10^3/ul (1.5-7.7); Eosinophil % 2.3 %; Lymphocyte % 15.5 %
[2021-08-24] MEDS: SPIRIVA Respimat (tiotropium) 2.5 mcg/inh Inhaler INH SCH (08:25)
== END 2021-08-24 11:50 | disposition home or self-care (01) ==
LOC: ED 16:58 → EDHOLD 16:58 → SUATTDRO 22:26 → MEDTELE 08-23 11:40
PROVIDERS: ADMIT Internal Medicine; ATTEND Internal Medicine

== ENCOUNTER 2021-09-07 15:52 | Observation (INO) ==
[2021-09-07 17:21] LABS: Hematocrit 36 % (35-47); Hemoglobin 12.1 g/dL (12.0-16.0); Mean Corpuscular HGB Conc 34 g/dL (31-36); Mean Corpuscular Hemoglobin 27 pg (27-31); Mean Corpuscular Volume 80 fL (80-97); Mean Platelet Volume 8.7 fL (7.4-10.4); Platelet Count 340 10^3/uL (150-450); Red Blood Count 4.45 10^6 /uL (3.70-4.87); Red Cell Distribution Width 27 % (10-15); White Blood Count 13.9 10^3/uL (3.5-10.8)
[2021-09-07 17:22] LABS: ABS Basophils 0.1 10^3/ul (0-0.2); ABS Eosinophils 0.2 10^3/ul (0-0.6); ABS Lymphocytes 1.2 10^3/ul (1.0-4.8); ABS Monocytes 0.7 10^3/ul (0-0.8); ABS Neutrophils 11.7 10^3/ul (1.5-7.7); Eosinophil % 1.3 %; Lymphocyte % 8.9 %; Nucleated Red Blood Cells % 0.1
[2021-09-07 17:33] LABS: Urine Appearance Clear; Urine Bilirubin Negative (Negative); Urine Blood 1+ (Negative); Urine Color Yellow; Urine Glucose Negative (Negative); Urine Ketones Negative (Negative); Urine Nitrite Negative (Negative); Urine Protein Negative (Negative); Urine Specific Gravity 1.006 (1.002-1.030); Urine Urobilinogen Negative (Negative)
[2021-09-07 17:40] LABS: Urine Bacteria 1+ (Absent); Urine Red Blood Cell Trace(0-2/hpf) (Absent); Urine Squamous Epithelial Cell Present (Absent); Urine White Blood Cell 3+(>20/hpf) (Absent)
[2021-09-07 17:42] LABS: ALT 16 U/L (7-52); Albumin 4.1 g/dL (3.2-5.2); Alkaline Phosphatase 145 U/L (35-149); Blood Urea Nitrogen 116 mg/dL (6-24); CO2 Carbon Dioxide 35 mmol/L (22-32); Calcium 9.9 mg/dL (8.6-10.3); Chloride 84 mmol/L (101-111); Glucose 146 mg/dL (70-100); Magnesium 2.4 mg/dL (1.9-2.7); Sodium 132 mmol/L (135-145); Total Protein 8.1 g/dL (6.4-8.9)
[2021-09-07 17:49] LABS: Troponin I 0.06 ng/mL (<0.03)
[2021-09-07] MEDS ORDERED: Piperacillin/Tazobac ADVAN 3.375 GM in NS 0.9% 100 ml BAG 100 ML IVPB ONE (17:53)
[2021-09-07 17:54] LABS: TSH Ultra Thyroid Stim Horm 2.12 mcIU/mL (0.34-5.60)
[2021-09-07 18:14] LABS: Anion Gap 13 mmol/L (2-11)
[2021-09-07] MEDS ORDERED: Lactated Ringers 500 ml BAG 500 ML IV ONE (18:18)
[2021-09-07] MEDS ORDERED: Potassium Chlor 10 meq TAB PO ONE (23:05)
[2021-09-07] MEDS ORDERED: Polyethylene Glycol 3350 17 GM PACKET PO PRN (23:51)
[2021-09-07] MEDS ORDERED: Dextrose 50% Syringe 50 ml 25 GM/50 ML SYRINGE IV PUSH PRN (23:51)
[2021-09-07] MEDS ORDERED: Magnesium Hydroxide LIQ 30 ML UDC PO PRN (23:51)
[2021-09-07] MEDS ORDERED: Senna TAB 8.6 mg TAB PO PRN (23:51)
[2021-09-07] MEDS ORDERED: oxyCODONE/Acetamin 5/325 mg TAB PO PRN (23:51)
[2021-09-07] MEDS ORDERED: Albuterol HFA INHALER 8 gm MDI INH PRN (23:51)
[2021-09-08 02:55] LABS: Rapid COVID-19 Molecular Undetected (Undetected)
[2021-09-08] MEDS: Heparin 5000 UNITS/ML 1 mL VIAL SUBCUT SCH ×3 (06:05→21:37)
[2021-09-08 06:37] LABS: Hematocrit 36 % (35-47); Hemoglobin 12.1 g/dL (12.0-16.0); Mean Corpuscular HGB Conc 34 g/dL (31-36); Mean Corpuscular Hemoglobin 27 pg (27-31); Mean Corpuscular Volume 81 fL (80-97); Mean Platelet Volume 8.7 fL (7.4-10.4); Platelet Count 329 10^3/uL (150-450); Red Blood Count 4.46 10^6 /uL (3.70-4.87); Red Cell Distribution Width 26 % (10-15); White Blood Count 12.1 10^3/uL (3.5-10.8)
[2021-09-08 06:40] LABS: ABS Basophils 0.1 10^3/ul (0-0.2); ABS Eosinophils 0.3 10^3/ul (0-0.6); ABS Lymphocytes 1.5 10^3/ul (1.0-4.8); ABS Monocytes 0.6 10^3/ul (0-0.8); ABS Neutrophils 9.6 10^3/ul (1.5-7.7); Eosinophil % 2.7 %; Lymphocyte % 12.1 %
[2021-09-08 06:54] LABS: Calcium 9.2 mg/dL (8.6-10.3)
[2021-09-08 07:05] LABS: Potassium 2.7 mmol/L (3.5-5.0)
[2021-09-08] MEDS ORDERED: Potassium Chlor 10 meq TAB PO ONE (08:13)
[2021-09-08] MEDS: Insulin GLARGINE 100 un/ml 10 ml VIAL SUBCUT SCH (08:24)
[2021-09-08 08:26] LABS: Anisocytosis 3+; Polychromasia 2+
[2021-09-08] MEDS: KCL 20 MEQ/100 ML IVPREMIX 20 MEQ/100 ML BAG IV SCH ×2 (08:47→12:18)
[2021-09-08] MEDS: SPIRIVA Respimat (tiotropium) 2.5 mcg/inh Inhaler INH SCH (09:04)
[2021-09-08] MEDS ORDERED: Lorazepam PYXIS KEY PRN (11:35)
[2021-09-08] MEDS ORDERED: LORazepam 2 mg VIAL 1 ml IV PUSH ONE (11:35)
[2021-09-08 11:58] LABS: Troponin I 0.05 ng/mL (<0.03)
[2021-09-08 17:54] LABS: Potassium 3.3 mmol/L (3.5-5.0)
[2021-09-08] MEDS ORDERED: Potassium Chlor 20 meq TAB.ER PO ONE (19:03)
[2021-09-09] MEDS ORDERED: cefTRIAXone 1 gm/50 mL NS BAG 1 GM/50 ML BAG IVPB SCH ×2 (04:00)
[2021-09-09] MEDS: Heparin 5000 UNITS/ML 1 mL VIAL SUBCUT SCH ×2 (06:16→12:35)
[2021-09-09] MEDS: SPIRIVA Respimat (tiotropium) 2.5 mcg/inh Inhaler INH SCH (07:49)
[2021-09-09 08:09] LABS: Hematocrit 33 % (35-47); Hemoglobin 10.8 g/dL (12.0-16.0); Mean Corpuscular HGB Conc 33 g/dL (31-36); Mean Corpuscular Hemoglobin 27 pg (27-31); Mean Corpuscular Volume 82 fL (80-97); Mean Platelet Volume 8.2 fL (7.4-10.4); Platelet Count 316 10^3/uL (150-450); Red Blood Count 3.97 10^6 /uL (3.70-4.87); Red Cell Distribution Width 27 % (10-15); White Blood Count 9.2 10^3/uL (3.5-10.8)
[2021-09-09 08:24] LABS: Calcium 9.1 mg/dL (8.6-10.3); Magnesium 2.2 mg/dL (1.9-2.7); Potassium 3.6 mmol/L (3.5-5.0)
[2021-09-09] MEDS: Insulin GLARGINE 100 un/ml 10 ml VIAL SUBCUT SCH (09:13)
[2021-09-09 13:09] VITALS: BP 91/48
== END 2021-09-09 17:00 | disposition home or self-care (01) ==
LOC: EDHOLD 15:52 → ED 15:52 → SUATTDRO 23:53 → MED 09-08 09:37
PROVIDERS: ADMIT Hospitalist; ATTEND Internal Medicine